=== PATIENT | male | born 1955 | race African-American/Black ===

== ENCOUNTER 2018-01-03 12:24 | Inpatient (IN) | payer OTHER ==
--- OUTSIDE RECORDS SUMMARY | 2018-01-03 12:26 | XMS REPORT | Clinical Summary ---
:1955 Author Organization [facility] Address [address] [place] [address] Phone Care Team Providers Name Role Phone Unavailable Primary Care Provider Unavailable Allergies No Known Allergies Current Medications Prescription Sig. Disp. Refills Start End Date Status Date NIFEdipine Take 60 mg by Active (PROCARDIA-XL) 60 mouth daily. MG (OSM) 24 hr tablet metoprolol Take 100 mg by Active (LOPRESSOR) 50 MG mouth daily . tablet lovastatin Take 20 mg by Active (MEVACOR) 20 MG mouth nightly. tablet terazosin (HYTRIN) Take 5 mg by mouth Active 5 MG capsule 2 (two) times daily . hydrALAZINE Take 25 mg by Active (APRESOLINE) 50 MG mouth 4 (four) tablet times daily . sevelamer Take 800 mg by Active (RENVELA) 800 mg mouth 3 (three) tablet times daily with meals. omega-3 fatty Take 1,200 mg by Active acids-vitamin E mouth daily. 1,000 mg Cap traMADol (ULTRAM) Take 1 tablet (50 30 tablet 0 Active 50 mg tablet mg total) by mouth 7 every 6 (six) hours as needed for Pain (s/p pharangeal biospy). Max Daily Amount: 200 mg traMADol (ULTRAM) Take 50 mg by 03/04/20 Discontinued 50 mg tablet mouth every 6 17 (six) hours as needed for Pain (s/p pharangeal biospy). allopurinol Take 1 tablet (100 30 tablet 1 12/27/201 12/27/20 (ZYLOPRIM) 100 MG mg total) by mouth 6 17 tablet daily. folic acid Take 1 tablet (1 30 tablet 1 05/04/20 (FOLVITE) 1 MG mg total) by mouth 6 17 tablet daily. ascorbic acid, Take 500 mg by 03/04/20 Discontinued vitamin C, mouth daily. 17 (VITAMIN C) 500 MG tablet pegfilgrastim Inject 6 mg 03/04/20 Discontinued (NEULASTA) 6 subcutaneously 17 mg/0.6mL injection once Every 21 days . amoxicillin Take 1 capsule 10 capsule 0 02/05/20 (AMOXIL) 500 MG (500 mg total) by 7 17 capsule mouth daily for 10 days. ondansetron Take 1 tablet (4 20 tablet 0 02/02/20 (ZOFRAN-ODT) 4 MG mg total) by mouth 7 17 disintegrating every 8 (eight) tablet hours as needed for up to 7 days. ceFAZolin (ANCEF) Inject 3 g 0 03/13/20 IVPB in 100 mL intravenously once 7 17 a week for 9 days After HD on Tuesday. ceFAZolin (ANCEF) Inject 50 mLs (2 g 0 03/13/20 IVPB 2 g in total) 7 17 dextrose 5% (D5W) intravenously 50 mL twice a week for 9 days. vancomycin Inject 250 mLs 0 03/13/20 (VANCOCIN) IVPB (1,250 mg total) 7 17 1250 mg in sodium intravenously 3 chloride 0.9% (NS) (three) times a 250 mL week after dialysis for 9 days. 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 Encounter for chemotherapy management 05/20/2016 Lymphoma ([facility]) 05/20/2016 ALL (acute lymphoblastic leukemia) ([facility]) 05/20/2016 UTI (urinary tract infection) 04/25/2016 Lymphoma ([facility]) 04/23/2016 Hypertension 04/21/2016 Hypercholesteremia 04/21/2016 End stage renal disease on dialysis ([facility]) 04/21/2016 Neck swelling 04/20/2016 SOB (shortness of breath) 04/19/2016 Stridor 04/19/2016 Resolved Problems Problem Noted Date Resolved Date Sepsis due to methicillin susceptible Staphylococcus aureus 02/25/20172016 ([facility]) Encounters Date Type Specialty Care Team Description [facility] MD Maximo lymphoma of lymph nodes of head ([facility]);Obstructive sleep apnea 09/29/2017 Orders Only Chandra Young TIMA (obstructive sleep MD Maximo apnea) (Primary Dx) 09/23/2017 Outside Orders Adriana Gan, SHADE [employer]OTH FINISHER, RETAIL ASSOCIATE 09/23/2017 Orders Only Malik Grade 1 follicular Adriana Nguyễn, SHADE CLOTH FINISHER, lymphoma of lymph RETAIL ASSOCIATE nodes of head ([facility]) (Primary Dx);Obstructive sleep apnea 08/24/2017 Abstract Johana Holley 07/26/2017 Telephone Transplant Johana Gresham Kidney Transplant Pre-evaluation 06/30/2017 Telephone Transplant Johana Gresham Kidney Transplant Pre-evaluation 05/05/2017 Abstract Transplant Mj Villanueva 03/30/2017 Office Visit Transplant ESRD (end stage renal disease) ([facility]) (Primary Dx);Pre-transplant evaluation for chronic kidney disease;Hypertensive renal disease;Anemia of renal disease;Essential hypertension, malignant;Abnormal blood chemistry;Pre-operativ e cardiovascular examination 02/25/2017 - [facility] Constanza Greer End stage renal 03/04/2017 Encounter MD Lyubov disease on dialysis Gayatri Stokes, ([facility]);Infection of MD hemodialysis catheter, Bobby Baker, initial encounter MD ([facility]);Hypercholesterem Carmita De Oliveira ia;Essential MD Addie hypertension;Periphera l T-cell lymphoma of lymph nodes of head, face, or neck (HCC);Sepsis, due to unspecified organism (HCC);Problem with dialysis access, initial encounter (HCC);Sepsis due to methicillin susceptible Staphylococcus aureus (HCC) 02/17/2017 Abstract April GreshamJohana 02/03/2017 Abstract Transplant MpSamvickieyad 02/03/2017 Abstract Transplant MpSamvickieyad 02/03/2017 Abstract Transplant Mp, Samgil 01/25/2017 - Emergency Emergency Medicine Naldo Dobson Near syncope ( Primary 01/26/2017 MD John Dx);Admission for antineoplastic chemotherapy 01/25/2017 Orders Only General Internal Medicine 01/24/2017 [facility] (end stage renal 01/25/2017 Encounter Le disease) (HCC);Problem MD Olivier with dialysis access, Cristal, initial encounter MD Mignon ([facility]);Essential hypertension;Line sepsis, initial encounter ([facility]) after 01/02/2017 Family History Medical History Relation Name Comments Hypertension Father Hypertension Mother Cancer Paternal Grandfather Relation Name Status Comments Father Mother Alive Paternal Grandfather Social History Tobacco Use Types Packs/Day Years Used Date Former Smoker Quit: 06/23/2014 Smokeless Tobacco: Former User Comments: cigar use 1-2 x per week Alcohol Use Drinks/Week oz/Week Comments No Sex Assigned at Date Recorded Not on file Last Filed Vital Signs Vital Sign Reading Time Taken Blood Pressure 127/74 03/04/2017 8:00 AM CDT Pulse 85 03/04/2017 8:00 AM CDT Temperature 36.4 C (97.6 F) 03/04/2017 8:00 AM CDT Respiratory Rate 18 03/04/2017 8:00 AM CDT Oxygen Saturation 96% 03/04/2017 8:00 AM CDT Inhaled Oxygen Concentration - - Weight 108.4 kg (238 lb 15.7 oz) 03/03/2017 7:15 PM CDT Height 188 cm (6' 2") 02/25/2017 7:49 PM CDT Body Mass Index 30.68 03/03/2017 7:15 PM CDT Plan of Treatment Health Maintenance Due Date Last Done Comments INFLUENZA VACCINE 02/06/2018 Results POLYSOMNOGRAPHY REPORT - SCAN (11/14/2017 11:10 AM)Only the most recent of2 resultswithin the time period is included.RHYTHM STRIP - SCAN (03/07/2017 9:54 AM)Only the most recent of2 resultswithin the time period is included.EKG- SCANNED (03/07/2017 9:53 AM)PT/aPTT (03/04/2017 5:44 AM) Component Value Ref Range Protime 14.6 11.7 - 14.7 seconds INR 1.2 <=5.9 PTT 32.5 22.5 - 36.0 seconds Specimen Performing Laboratory Blood [address] [address] Narrative RECOMMENDED COUMADIN/WARFARIN INR THERAPY RANGES STANDARD DOSE: 2.0 - 3.0 Includes: PROPHYLAXIS for venous thrombosis, systemic embolization; TREATMENT for venous thrombosis and/or pulmonary embolus. HIGH RISK: Target INR is 2.5-3.5 for patients with mechanical heart valves. CBC (Hemogram only) (03/04/2017 5:44 AM) Component Value Ref Range WBC 6.5 3.5 - 10.5 K/L RBC 3.15 (L) 4.63 - 6.08 M/L Hemoglobin 9.1 (L) 13.7 - 17.5 GM/DL Hematocrit 29.1 (L) 40.1 - 51.0 % MCV 92.4 (H) 79.0 - 92.2 fL MCH 28.9 25.7 - 32.2 pg MCHC 31.3 (L) 32.3 - 36.5 GM/DL RDW 15.8 (H) 11.6 - 14.4 % Platelets 295 150 - 450 K/CU MM MPV 10.3 9.4 - 12.4 fL nRBC 0 0 - 0 /100 WBC Specimen Performing Laboratory Blood [address] [address] Basic Metabolic Panel (03/04/2017 5:44 AM)Only the most recent of8 resultswithin the time period is included. Component Value Ref Range Sodium 141 136 - 145 meq/L Potassium 3.8 3.5 - 5.1 meq/L Chloride 105 98 - 107 meq/L CO2 24 22 - 29 meq/L BUN 39 (H) 7 - 21 mg/dL Creatinine 7.06 (H) 0.57 - 1.25 mg/dL Glucose 126 (H) 70 - 105 mg/dL Calcium 8.9 8.4 - 10.2 mg/dL EGFR 10Comment: ESTIMATED GFR IS NOT ACCURATE mL/min/1.73 sq m CREATININE CLEARANCE IN PREDICTING GLOMERULAR FILTRATION RATE. ESTIMATED GFR IS NOT APPLICABLE FOR DIALYSIS PATIENTS. Specimen Performing Laboratory Blood [facility] [address] [address] IR Tunneled Catheter Insertion (03/03/2017 6:15 PM)Only the most recent of2 resultswithin the time period is included. Specimen Performing Laboratory GE RIS Narrative FINAL REPORT Tunneled dialysis catheter insertion. History: Renal failure. Modality: Sonography and fluoroscopy. Sedation: Versed 2.0 mg and fentanyl 100 mcg was given intravenously for conscious sedation.Vital signs were monitored throughout the procedure by a nurse, and remained stable. Physician intra-service time was 20 minutes. Special Weapons Unit Officer:Dimple. Production Controller:None. Approach: Right internal jugular vein Estimated blood loss:< 5 cc. Specimen: None. Fluoroscopy Time: 1.3 min.Dose (Ka,r): 133 mGy. Technique: Informed written consent was obtained.Discussion of risks, benefits, and alternatives were made with the patient. The patient expressed understanding and agreed to proceed.All elements maximal sterile barrier technique was utilized for this procedure, including utilization of sterile scrub solution for skin prep, a large sterile sheet to cover the areas of the patient that were not prepped, and hand hygiene, mask, head covering, and sterile gown for performing radiologist and scrub technologist. The skin was anesthetized with 2% lidocaine.Ultrasound evaluation showed a patent and compressible right internal jugular vein, which was punctured under direct real-time ultrasound guidance with a micropuncture needle.An ultrasound image was saved to PACS. A 0.018 inch wire was placed through the needle into the right atrium. A 4 Canadian micropuncture sheath was placed.A subcutaneous tunnel was created in the right anterior chest wall by blunt dissection.A 19 cm 15.5 Canadian Duraflow 2 catheter was brought through the tunnel. The vessel tract was serially dilated over a J-wire. A peel-away sheath was placed in the right IJ vein and the catheter was advanced through the sheath, with its distal tip terminating in the right atrium.The peel-away sheath was removed. The ports were flushed and aspirated easily following placement.The catheter was sutured to the skin with 2-0 silk to secure its placement.The small jugular incision site was closed using resorbable suture. Vital signs were monitored throughout the procedure by a nurse, and remained stable.The patient tolerated the procedure well and left the department in the same condition. Results:Spot radiograph of the chest demonstrates the new dialysis catheter to lie in the expected position with its tip overlying the superior right atrium. Impression: Successful, uncomplicated placement of a right internal jugular tunneled dialysis catheter using sonographic and fluoroscopic guidance and conscious sedation. Signed: Francisco Javier Flannery MD Report Verified Date/Time:03/18/2017 09:52:18 Reading Location: [facility] B1 P048 Angio Body Reading Room Procedure Note Interface, External Ris In - 03/18/2017 9:54 AM CEO AND FOUNDER FINAL REPORT Tunneled dialysis catheter insertion. History: Renal failure. Modality: Sonography and fluoroscopy. Sedation: Versed 2.0 mg and fentanyl 100 mcg was given intravenously for conscious sedation. Vital signs were monitored throughout the procedure by a nurse, and remained stable. Physician intra-service time was 20 minutes. Special Weapons Unit Officer: Dimple. Production Controller: None. Approach: Right internal jugular vein Estimated blood loss: < 5 cc. Specimen: None. Fluoroscopy Time: 1.3 min. Dose (Ka,r): 133 mGy. Technique: Informed written consent was obtained. Discussion of risks, benefits, and alternatives were made with the patient. The patient expressed understanding and agreed to proceed. All elements maximal sterile barrier technique was utilized for this procedure, including utilization of sterile scrub solution for skin prep, a large sterile sheet to cover the areas of the patient that were not prepped, and hand hygiene, mask, head covering, and sterile gown for performing radiologist and scrub technologist. The skin was anesthetized with 2% lidocaine.Ultrasound evaluation showed a patent and compressible right internal jugular vein, which was punctured under direct real-time ultrasound guidance with a micropuncture needle. An ultrasound image was saved to PACS. A 0.018 inch wire was placed through the needle into the right atrium. A 4 Canadian micropuncture sheath was placed. A subcutaneous tunnel was created in the right anterior chest wall by blunt dissection. A 19 cm 15.5 Canadian Duraflow 2 catheter was brought through the tunnel. The vessel tract was serially dilated over a J-wire. A peel-away sheath was placed in the right IJ vein and the catheter was advanced through the sheath, with its distal tip terminating in the right atrium. The peel-away sheath was removed. The ports were flushed and aspirated easily following placement. The catheter was sutured to the skin with 2-0 silk to secure its placement. The small jugular incision site was closed using resorbable suture. Vital signs were monitored throughout the procedure by a nurse, and remained stable. The patient tolerated the procedure well and left the department in the same condition. Results: Spot radiograph of the chest demonstrates the new dialysis catheter to lie in the expected position with its tip overlying the superior right atrium. Impression: Successful, uncomplicated placement of a right internal jugular tunneled dialysis catheter using sonographic and fluoroscopic guidance and conscious sedation. Signed: Francisco Javier Flannery MD Report Verified Date/Time: 03/18/2017 09:52:18 Reading Location: [address] Body Reading Room with platelet count + automated diff (03/03/2017 5:29 AM)Only the most recent of7 resultswithin the time period is included. Component Value Ref Range WBC 7.1 3.5 - 10.5 K/L RBC 2.89 (L) 4.63 - 6.08 M/L Hemoglobin 8.3 (L) 13.7 - 17.5 GM/DL Hematocrit 26.6 (L) 40.1 - 51.0 % MCV 92.0 79.0 - 92.2 fL MCH 28.7 25.7 - 32.2 pg MCHC 31.2 (L) 32.3 - 36.5 GM/DL RDW 15.6 (H) 11.6 - 14.4 % Platelets 271 150 - 450 K/CU MM MPV 10.3 9.4 - 12.4 fL nRBC 0 0 - 0 /100 WBC % Neutros 61 % % Lymphs 21 % % Monos 13 % % Eos 3 % % Baso 0 % # Neutros 4.34 1.78 - 5.38 K/L # Lymphs 1.51 1.32 - 3.57 K/L # Monos 0.92 (H) 0.30 - 0.82 K/L # Eos 0.20 0.04 - 0.54 K/L # Baso 0.03 0.01 - 0.08 K/L Immature Granulocytes-Relative 1 0 - 1 % Specimen Performing Laboratory Blood [address] [address] CBC with platelet count + automated diff (03/03/2017 5:29 AM)Only the most recent of7 resultswithin the time period is included. Specimen Performing Laboratory Blood Narrative The following orders were created for panel order CBC with platelet count + automated diff. Procedure Abnormality Status --------- ------ CBC with platelet count ...[[id number]]AbnormalFinal result Please view results for these tests on the individual orders. Phosphorus (03/03/2017 5:29 AM)Only the most recent of6 resultswithin the time period is included. Component Value Ref Range Phosphorus 5.9 (H) 2.3 - 4.7 mg/dL Specimen Performing Laboratory Blood [address] [address] Magnesium (03/03/2017 5:29 AM)Only the most recent of5 resultswithin the time period is included. Component Value Ref Range Magnesium 2.0 1.6 - 2.6 mg/dL Specimen Performing Laboratory Blood [address] [address] Iron, TIBC, % sat. (without ferritin) (03/02/2017 6:21 AM) Component Value Ref Range Iron 129 40 - 160 ug/dL TIBC 189 (L) 250 - 450 ug/dL Iron % Saturation 68 (H) 20 - 55 % Specimen Performing Laboratory Blood - Arm, [address] [address] Ferritin (03/02/2017 6:21 AM) Component Value Ref Range Ferritin 1315 (H) 5 - 275 ng/mL Specimen Performing Laboratory Blood - Arm, [address] [address] Electrolytes (02/28/2017 10:16 PM) Component Value Ref Range Sodium 141 136 - 145 meq/L Potassium 4.2 3.5 - 5.1 meq/L Chloride 106 98 - 107 meq/L CO2 22 22 - 29 meq/L Specimen Performing Laboratory Blood [address] [address] ECHOCARDIOGRAM REPORT - SCAN (02/28/2017 9:50 AM)Blood culture (02/28/2017 4: 56 AM)Only the most recent of6 resultswithin the time period is included. Component Value Ref Range Result No growth in 5 days Specimen Performing Laboratory Blood - Arm, Right [address] [address] 2D Echo W/Doppler(CW/PW/Color) (02/27/2017 4:40 PM) Component Value Ref Range Ejection Fraction Specimen Performing Laboratory SLE ECHO HEARTLAB MKCKESSON CPACS Narrative Transthoracic Echocardiography Report (TTE) Demographics Patient NameMORMally JOY of Study02/27/2017 YOUNG Gender Male Visit [id number] Race Black [id number] Number Date of 1955 ReferringBobby Baker RES Physician Age 62 year(s) Carbon Brush Maker Interpreting [facility] Needs to be Pre Physician Read Ezequiel Zhang MD Procedure Type of Study TTE procedure:2DECHO W DOPPLER(CW/PW/COLOR) (Routine) Indications:Suspected infective endocarditis with positive cultures or new murmur. Clinical History HTN ESRD SEPSIS SOB CANCER Hyperlipidemia Height: 62 inches Weight: 108.41 kg (239 lbs) BSA: 2.06 m^2 BMI: 43.71 kg/m^2 HR: 85 bpm BP: 112/75 mmHg Summary The left ventricle is chamber size (by vol index) is normal (male - LVED vol - 34-74ml/m2). Moderate concentric LV hypertrophy. All of the LV segments contract normally . LVEF by Winkler's method of disk assessment is normal (55-60%) . Grade 1 diastolic dysfunction (impaired relaxation and low-normal LA pressure). The right ventricular chamber size and systolic function are within normal limits. Unable to estimate peak systolic PA pressure; inadequate TR velocity signal. A trace anterior and posterior pericardial effusion is present . Signature Findings Left Ventricle The left ventricle is chamber size (by vol index) is normal (male - LVED vol - 34-74ml/m2). Moderate concentric LV hypertrophy. All of the LV segments contract normally . LVEF by Winkler's method of disk assessment is normal (55- 60%) . Grade 1 diastolic dysfunction (impaired relaxation and low-normal LA pressure). Left AtriumLA size is normal (16-34 ml/m2) . Right VentricleThe right ventricular chamber size and systolic function are within normal limits. Right Atrium RA size is normal. Aortic Valve Mild AoV cusp thickening. Mild AoV cusp calcification. Mitral Valve Normal MV structure. Tricuspid ValveTV structure is normal. Unable to estimate peak systolic PA pressure; inadequate TR velocity signal. Pulmonic Valve Normal PV structure and function by limited views and Doppler. AortaAortic root size (SInus of Valsalva diameter) is normal . PericardiumA trace anterior and posterior pericardial effusion is present . IVC/SVC/PA/PV/PleuralThe estimated RA pressure by IVC dynamics 0-5mmHg . Chambers/Structures Left Atrium LA Dimension: 4.71 cmLA Area: 20.85 cm^2 LA Volume: 65.63 ml LA Vol. Index: 32 ml/m^2 Left Ventricle LVIDd: 4.74 cmLVEDV 2D:127.04 ml LVIDs: 2.78 cmLVESV 2D :56.76 ml LV Septum Diastolic: 1.62 cm LV Septum Systolic: 2.19 cm LV PW Diastolic: 1.61 cmLV FS: 41.4 % LV PW Systolic: 1.89 cm LV ESV (Cubed): 21.48 cc LVOT Diameter: 2.17 cm LV ESV (Teich):29.03 ml LV SV (Teich):75.37 ml LV SI (Teich):36.59 ml/m^2 LVEF 2D Teich: 55.3 % Aorta Ao Root S of Velma.: 3.09 cm Shunts QS:77.22 ml Doppler/Quantitative Measurements LVOT Peak Velocity: 1.16 m/s Peak Gradient: 5.36 mmHg Mean Velocity: 0.7 m/sMean Gradient: 2.44 mmHg LVOT Diameter: 2.17 cmLVOT VTI: 20.88 cm LVOT Area: 3.7 cm^2 LVOT SV:77.18 ml LVOT CO: 6.56 l/min LVOT CI: 3.18 l/min/m^2 Procedure Note Interface, External Ris In - 02/28/2017 9:18 AM CDT Transthoracic Echocardiography Report (TTE) Demographics Patient Name NALDO ANDREA Date of Study 02/27/2017 YOUNG Gender Male Visit Number [id number] Race Black Room Number [id number] Number Date of 1955 Referring Bobby Baker RES Physician Age 62 year(s) Carbon Brush Maker Interpreting [facility] Needs to be Pre Physician Read Ezequiel Zhang MD Procedure Type of Study TTE procedure:2DECHO W DOPPLER(CW/PW/COLOR) (Routine) Indications:Suspected infective endocarditis with positive cultures or new murmur. Clinical History HTN ESRD SEPSIS SOB CANCER Hyperlipidemia Height: 62 inches Weight: 108.41 kg (239 lbs) BSA: 2.06 m^2 BMI: 43.71 kg/m^2 HR: 85 bpm BP: 112/75 mmHg Summary The left ventricle is chamber size (by vol index) is normal (male - LVED vol - 34-74ml/m2). Moderate concentric LV hypertrophy. All of the LV segments contract normally . LVEF by Winklre's method of disk assessment is normal (55-60%) . Grade 1 diastolic dysfunction (impaired relaxation and low-normal LA pressure). The right ventricular chamber size and systolic function are within normal limits. Unable to estimate peak systolic PA pressure; inadequate TR velocity signal. A trace anterior and posterior pericardial effusion is present . Signature Findings Left Ventricle The left ventricle is chamber size (by vol index) is normal (male - LVED vol - 34-74ml/m2). Moderate concentric LV hypertrophy. All of the LV segments contract normally . LVEF by Winkler's method of disk assessment is normal (55-60%) . Grade 1 diastolic dysfunction (impaired relaxation and low-normal LA pressure). Left Atrium LA size is normal (16-34 ml/m2) . Right Ventricle The right ventricular chamber size and systolic function are within normal limits. Right Atrium RA size is normal. Aortic Valve Mild AoV cusp thickening. Mild AoV cusp calcification. Mitral Valve Normal MV structure. Tricuspid Valve TV structure is normal. Unable to estimate peak systolic PA pressure; inadequate TR velocity signal. Pulmonic Valve Normal PV structure and function by limited views and Doppler. Aorta Aortic root size (SInus of Valsalva diameter) is normal . Pericardium A trace anterior and posterior pericardial effusion is present . IVC/SVC/PA/PV/Pleural The estimated RA pressure by IVC dynamics 0-5mmHg . Chambers/Structures Left Atrium LA Dimension: 4.71 cm LA Area: 20.85 cm^2 LA Volume: 65.63 ml LA Vol. Index: 32 ml/m^2 Left Ventricle LVIDd: 4.74 cm LVEDV 2D:127.04 ml LVIDs: 2.78 cm LVESV 2D:56.76 ml LV Septum Diastolic: 1.62 cm LV Septum Systolic: 2.19 cm LV PW Diastolic: 1.61 cm LV FS: 41.4 % LV PW Systolic: 1.89 cm LV ESV (Cubed):21.48 cc LVOT Diameter: 2.17 cm LV ESV (Teich):29.03 ml LV SV (Teich):75.37 ml LV SI (Teich):36.59 ml/m^2 LVEF 2D Teich: 55.3 % Aorta Ao Root S of Velma.: 3.09 cm Shunts QS:77.22 ml Doppler/Quantitative Measurements LVOT Peak Velocity: 1.16 m/s Peak Gradient: 5.36 mmHg Mean Velocity: 0.7 m/s Mean Gradient: 2.44 mmHg LVOT Diameter: 2.17 cm LVOT VTI: 20.88 cm LVOT Area: 3.7 cm^2 LVOT SV:77.18 ml LVOT CO: 6.56 l/min LVOT CI: 3.18 l/min/m^2 Vancomycin level, random (02/27/2017 4:00 AM) Component Value Ref Range Vancomycin Rm 20.4 ug/mL Specimen Performing Laboratory Blood [address] [address] Narrative Reference Range: No Normals BCID (02/26/2017 10:20 PM) Component Value Ref Range Scan Result Specimen Performing [place] [address] Narrative Result comments: METHICILLIN-SUSCEPTIBLE STAPH. AUREUS (MSSA) DETECTED Staphylococcus aureus DETECTED MecA NOT DETECTED First line therapy: cefazolin or nafcillin (nafcillin preferred if Central Nervous System Infection) ID consultation strongly encouraged. Other organisms and resistance markers not contained in this PCR panel cannot be excluded and follow-up of traditional culture results is required. This sample was tested at the [facility] Clinical Microbiology Laboratory using the InMy[employer] FilmArray Blood Culture ID Panel. This test is FDA cleared for in vitro diagnostic use and has been verified and approved by the [facility] Clinical Microbiology laboratory for clinical use. Reference Range: Not Detected Catheter Tip Culture (02/26/2017 6:29 PM)Only the most recent of2 resultswithin the time period is included. Component Value Ref Range Result No growth Specimen Performing Laboratory Other - Catheter Tip [address] [address] IR Port Removal (02/26/2017 5:40 PM) Specimen Performing Laboratory GE RIS Narrative FINAL REPORT Exam:Tunnel dialysis catheter and chest port removal Clinical History:Sepsis Consent:Benefits and risks were explained to the patient who gave consent to the procedure. Sedation:The procedure was performed with conscious sedation. Continuous cardiorespiratory monitoring was performed by a registered nurse throughout the procedure.The total sedation time is 30 minutes. Fluoro Time:0 Minutes Total Images: 1 Medication:Versed 1 mg IV, fentanyl 50 mcg IV Procedure:Sterile barrier technique was followed including cap, mask, sterile gown, sterile gloves, sterile sheet, hand hygiene and 2% chlorhexidine for cutaneous antisepsis. Bilateral chest was prepped and draped in usual sterile fashion. 2% lidocaine was used as local anesthetic. An linear incision was made in the left chest wall followed by removal of the indwelling left chest port. The incision was closed using 3-0 Vicryl in subcuticular fashion. The right internal jugular tunneled dialysis catheter was removed after blunt dissection. Both catheter and port were sent to microbiology. Hemostasis was achieved. The patient tolerated the procedure well without any adverse reactions. He left the department in stable condition. Complication:None immediate Impression: 1. Left internal jugular chest port and right internal jugular tunneled dialysis catheter removal as described. Signed: Nellie Brooks MD Report Verified Date/Time:02/27/2017 12:44:21 Reading Location: [place] [address] Angio Body Reading Room Procedure Note Interface, External Ris In - 02/27/2017 12:46 PM CDT FINAL REPORT Exam: Tunnel dialysis catheter and chest port removal Clinical History: Sepsis Consent: Benefits and risks were explained to the patient who gave consent to the procedure. Sedation: The procedure was performed with conscious sedation. Continuous cardiorespiratory monitoring was performed by a registered nurse throughout the procedure. The total sedation time is 30 minutes. Fluoro Time: 0 Minutes Total Images: 1 Medication: Versed 1 mg IV, fentanyl 50 mcg IV Procedure: Sterile barrier technique was followed including cap, mask, sterile gown, sterile gloves, sterile sheet, hand hygiene and 2% chlorhexidine for cutaneous antisepsis. Bilateral chest was prepped and draped in usual sterile fashion. 2% lidocaine was used as local anesthetic. An linear incision was made in the left chest wall followed by removal of the indwelling left chest port. The incision was closed using 3-0 Vicryl in subcuticular fashion. The right internal jugular tunneled dialysis catheter was removed after blunt dissection. Both catheter and port were sent to microbiology. Hemostasis was achieved. The patient tolerated the procedure well without any adverse reactions. He left the department in stable condition. Complication: None immediate Impression: 1. Left internal jugular chest port and right internal jugular tunneled dialysis catheter removal as described. Signed: Nellie Brooks MD Report Verified Date/Time: 02/27/2017 12:44:21 Reading Location: [place] [id number] Angio Body Reading Room Hepatitis B surface antigen (02/26/2017 2:35 PM)Only the most recent of2 resultswithin the time period is included. Component Value Ref Range hepatitis B Surface Ag Nonreactive Nonreactive Specimen Performing Laboratory Blood - Line, Arterial [address] [address] Prothrombin time/INR (02/26/2017 5:38 AM)Only the most recent of2 resultswithin the time period is included. Component Value Ref Range Protime 15.2 (H) 11.7 - 14.7 seconds INR 1.2 <=5.9 Specimen Performing Laboratory Blood [address] [address] Narrative RECOMMENDED COUMADIN/WARFARIN INR THERAPY RANGES STANDARD DOSE: 2.0 - 3.0 Includes: PROPHYLAXIS for venous thrombosis, systemic embolization; TREATMENT for venous thrombosis and/or pulmonary embolus. HIGH RISK: Target INR is 2.5-3.5 for patients with mechanical heart valves. XR chest 1 view portable / bedside (01/25/2017 9:24 PM) Specimen Performing Laboratory GE RIS Narrative FINAL REPORT INDICATION: CHEST PAIN COMPARISON: May 20, 2016 TECHNIQUE: Chest radiograph, single view, portable technique. FINDINGS / IMPRESSION: Linear opacity in the left midlung probably represent subsegmental atelectasis. Right midlung linear opacities represent subsegmental atelectasis or possibly a tiny amount of pleural fluid. No pneumothorax or pneumonia is demonstrated. Heart shadow is not enlarged. There is a right internal jugular double lumen catheter that terminates at the cavoatrial junction. There is a left chest port that terminates in the low SVC. Signed: David Thompson MD Report Verified Date/Time:01/25/2017 21:52:27 Reading Location: [facility] [id number] Consult Reading Room Procedure Note Interface, External Ris In - 01/25/2017 9:54 PM CDT FINAL REPORT INDICATION: CHEST PAIN COMPARISON: May 20, 2016 TECHNIQUE: Chest radiograph, single view, portable technique. FINDINGS / IMPRESSION: Linear opacity in the left midlung probably represent subsegmental atelectasis. Right midlung linear opacities represent subsegmental atelectasis or possibly a tiny amount of pleural fluid. No pneumothorax or pneumonia is demonstrated. Heart shadow is not enlarged. There is a right internal jugular double lumen catheter that terminates at the cavoatrial junction. There is a left chest port that terminates in the low SVC. Signed: David Thompson MD Report Verified Date/Time: 01/25/2017 21:52:27 Reading Location: [facility] B1 [id number] Consult Reading Room Troponin I (01/25/2017 8:58 PM) Component Value Ref Range Troponin I 0.01 0.00 - 0.03 ng/mL Specimen Performing Laboratory Blood - Arm, [place] [address] Narrative Troponin I (TnI) levels must be interpreted in the context of the presenting symptoms and the clinical findings. Elevated TnI levels indicate myocardial damage, but are not specific for ischemic heart disease. Elevated TnI levels are seen in patients with other cardiac conditions (including myocarditis and congestive heart failure), and slight TnI elevations occur in patients with other conditions, including sepsis, renal failure, acidosis, acute neurological disease, and persistent tachyarrhythmia. Creatine Kinase (CK), Total and MB (01/25/2017 8:58 PM) Component Value Ref Range Total CK 159 29 - 200 U/L CK-MB 0.8 0.0 - 6.6 ng/mL MB Relative Index 0.5 % Specimen Performing Laboratory Blood - Arm, [place] [id number] Narrative CK-MB Reference Range: <6.7Normal 6.7-10.0Borderline >10.0 Abnormal ECG 12 lead (01/25/2017 8:17 PM) Specimen Performing Laboratory GE MUSE Narrative Ventricular Rate 82 BPM Atrial Rate 82 BPM P-R Interval 162 ms QRS Duration 94 ms Q-T Interval 402 ms QTC Calculation(Bazett) 469 ms P [place] 44 degrees R [place] 15 degrees T [place] 185 degrees Sinus rhythm Nonspecific ST and T wave abnormality V leads appear to have been mis applied. PLASE REPEAT Confirmed by Dana SCHOFIELD MICHAEL ([id number]) on 01/26/2017 7:56:37 AM Procedure Note Interface, External Ris In - 01/26/2017 7:56 AM CDT Ventricular Rate 82 BPM Atrial Rate 82 BPM P-R Interval 162 ms QRS Duration 94 ms Q-T Interval 402 ms QTC Calculation(Bazett) 469 ms P [place] 44 degrees R [place] 15 degrees T [place] 185 degrees Sinus rhythm Nonspecific ST and T wave abnormality V leads appear to have been mis applied. PLASE REPEAT Confirmed by Dana SCHOFIELD MICHAEL ([id number]) on 01/26/2017 7:56:37 AM POC-Glucose meter (01/25/2017 8:15 PM) Component Value Ref Range POC-Glucose Meter 179 (H)Comment: TESTED AT [address] 70 - 110 mg/[place] [id number] Specimen Performing Laboratory Blood [address] [address] after 01/02/2017 Advance Directives Patient has advance directives. For more information, please contact:[address] [phone]
--- OUTSIDE RECORDS SUMMARY | 2018-01-03 12:28 | XMS REPORT ---
:1955 Author Organization [facility] Address [address] [place] [address] [place] [id number] Care Team Providers Name Role Phone ARIAN MANUEL Unavailable Unavailable ASHIA WORKMAN Unavailable Unavailable PETER FAGAN Unavailable Unavailable YAZAN BARRY Unavailable Unavailable DENI RUBI Unavailable Unavailable NICO GOLDMAN Unavailable Unavailable TOBY CAO Unavailable Unavailable Problems This patient has no known problems. Allergies, Adverse Reactions, Alerts This patient has no known allergies or adverse reactions. Medications This patient has no known medications. Results Test Description Test Time Test Comments Text Results Atomic Results Result Comments ISAK PAGAN 2017-03-18 Reason for FINAL REPORT PATIENT ID: DIALYSIS CATH 09:52:00 exam:->Patient needs [id number] Tunneled dialysis INSERTION TDC replaced catheter insertion. (previously removed for line holiday in patient with MSSA/MRSA bacteremia - cx now clear) History: Renal failure. Modality: Sonography and fluoroscopy. Sedation: Versed 2.0 mg and fentanyl 100 mcg was given intravenously for conscious sedation. Vital signs were monitored throughout the procedure by a nurse, and remained stable. Physician intra-service time was 20 minutes. Water Main Installer Helper: Dimple. Case Assistant: None. Approach: Right internal jugular vein Estimated [...] needle into the right atrium. A 4 Nigerian micropuncture sheath was placed. A subcutaneous tunnel was created in the right anterior chest wall by blunt dissection. A 19 cm 15.5 Nigerian Duraflow 2 catheter was brought through the [...] and fluoroscopic guidance and conscious sedation. Signed: Hari Flannery [facility] Verified Date/Time: 03/18/2017 09:52:18 Reading Location: [address] Body Reading Room ELLANEOUS LAB ORDER 2017-03-07 14:09:00 Test Item Value Reference Range Comments SCAN RESULT (test dlht=[id number]) Result comments: METHICILLIN-SUSCEPTIBLE STAPH. AUREUS (MSSA) DETECTED Staphylococcus aureus DETECTED MecA NOT DETECTED First line therapy: cefazolin or nafcillin (nafcillin preferred if Central Nervous System Infection) ID consultation strongly encouraged. Other organisms and resistance markers not contained in this PCR panel cannot be excluded and follow-up of traditional culture results is required. This sample was tested at the [facility] Clinical Microbiology Laboratory using the OxiCool Blood Culture ID Panel. This test is FDA cleared for in vitro diagnostic use and has been verified and approved by the [facility] Clinical Microbiology laboratory for clinical use. Reference Range: Not DetectedBLOOD [id number] 11:00:00 Test Item Value Reference Range Comments CULTURE (BEAKER) (test codo=6999) No growth in 5 days BLOOD [id number] 11:00:00 Test Item Value Reference Range Comments CULTURE (BEAKER) (test ipwf=9725) No growth in 5 days BLOOD [id number] 18:00:00 Test Item Value Reference Range Comments CULTURE (BEAKER) (test noni=9167) No growth in 5 days BLOOD [id number] 18:00:00 Test Item Value Reference Range Comments CULTURE (BEAKER) (test dhxa=2299) No growth in 5 days BASIC METABOLIC [id number] 07:03:00 Test Item Value Reference Range Comments SODIUM (BEAKER) (test 141 meq/L 136-145 ufks=201) POTASSIUM (BEAKER) (test 3.8 meq/L 3.5-5.1 jxig=424) CHLORIDE (BEAKER) (test 105 meq/L 98-107 ttcp=747) CO2 (BEAKER) (test 24 meq/L 22-29 hnlw=655) BLOOD UREA NITROGEN 39 mg/dL 7-21 (BEAKER) (test dzym=524) CREATININE (BEAKER) (test 7.06 mg/dL 0.57-1.25 ujiz=966) GLUCOSE RANDOM (BEAKER) 126 mg/dL 70-105 (test jhdy=518) CALCIUM (BEAKER) (test 8.9 mg/dL 8.4-10.2 pzai=826) EGFR (BEAKER) (test 10 mL/min/1.73 sq m ESTIMATED GFR IS NOT gtet=9083) ACCURATE CREATININE CLEARANCE IN PREDICTING GLOMERULAR FILTRATION RATE. ESTIMATED GFR IS NOT APPLICABLE FOR DIALYSIS PATIENTS. CBC (HEMOGRAM ONLY)2017-03-04 06:18:00 Test Item Value Reference Range Comments WHITE BLOOD CELL COUNT (BEAKER) (test ywla=027) 6.5 K/ L 3.5-10.5 RED BLOOD CELL COUNT (BEAKER) (test xfwo=283) 3.15 M/ L 4.63-6.08 HEMOGLOBIN (BEAKER) (test xxqe=398) 9.1 GM/DL 13.7-17.5 HEMATOCRIT (BEAKER) (test nvoz=149) 29.1 % 40.1-51.0 MEAN CORPUSCULAR VOLUME (BEAKER) (test fdak=098) 92.4 fL 79.0-92.2 MEAN CORPUSCULAR HEMOGLOBIN (BEAKER) (test 28.9 pg 25.7-32.2 xpts=616) MEAN CORPUSCULAR HEMOGLOBIN CONC (BEAKER) (test 31.3 GM/DL 32.3-36.5 iyty=937) RED CELL DISTRIBUTION WIDTH (BEAKER) (test 15.8 % 11.6-14.4 uppt=876) PLATELET COUNT (BEAKER) (test bskw=589) 295 K/CU MM 150-450 MEAN PLATELET VOLUME (BEAKER) (test qigs=358) 10.3 fL 9.4-12.4 NUCLEATED RED BLOOD CELLS (BEAKER) (test 0 /100 WBC 0-0 pseg=592) [id number] 06:15:00 Test Item Value Reference Range Comments PROTIME (BEAKER) (test suul=763) 14.6 seconds 11.7-14.7 INR (BEAKER) (test hiqp=329) 1.2 <=5.9 PARTIAL THROMBOPLASTIN TIME (BEAKER) (test 32.5 seconds 22.5-36.0 tsgf=272) RECOMMENDED COUMADIN/WARFARIN INR THERAPY RANGESSTANDARD DOSE: 2.0 - 3.0 Includes: PROPHYLAXIS forvenous thrombosis, systemic embolization; TREATMENT for venous thrombosis and/or pulmonary embolus.HIGH RISK: Target INR is 2.5-3.5 for patients with mechanical heart valves.BASIC METABOLIC [id number] 06:38: 00 Test Item Value Reference Range Comments SODIUM (BEAKER) (test 141 meq/L 136-145 aeqe=210) POTASSIUM (BEAKER) (test 4.3 meq/L 3.5-5.1 sqon=421) CHLORIDE (BEAKER) (test 109 meq/L 98-107 sbqg=931) CO2 (BEAKER) (test 18 meq/L 22-29 nyhq=799) BLOOD UREA NITROGEN 73 mg/dL 7-21 (BEAKER) (test hrgl=127) CREATININE (BEAKER) (test 10.24 mg/dL 0.57-1.25 ligm=653) GLUCOSE RANDOM (BEAKER) 92 mg/dL 70-105 (test qhtq=959) CALCIUM (BEAKER) (test 8.8 mg/dL 8.4-10.2 zcoz=776) EGFR (BEAKER) (test 6 mL/min/1.73 sq m ESTIMATED GFR IS NOT oxgd=1475) ACCURATE CREATININE CLEARANCE IN PREDICTING GLOMERULAR FILTRATION RATE. ESTIMATED GFR IS NOT APPLICABLE FOR DIALYSIS PATIENTS. [id number] 06:26:00 Test Item Value Reference Range Comments PHOSPHORUS (BEAKER) (test qnmj=039) 5.9 mg/dL 2.3-4.7 [id number] 06:26:00 Test Item Value Reference Range Comments MAGNESIUM (BEAKER) (test ztap=738) 2.0 mg/dL 1.6-2.6 CBC W/PLT COUNT & AUTO [id number] 06:00:00 Test Item Value Reference Range Comments WHITE BLOOD CELL COUNT (BEAKER) (test sgsx=623) 7.1 K/ L 3.5-10.5 RED BLOOD CELL COUNT (BEAKER) (test zvcm=560) 2.89 M/ L 4.63-6.08 HEMOGLOBIN (BEAKER) (test kidn=601) 8.3 GM/DL 13.7-17.5 HEMATOCRIT (BEAKER) (test asja=876) 26.6 % 40.1-51.0 MEAN CORPUSCULAR VOLUME (BEAKER) (test gcxk=037) 92.0 fL 79.0-92.2 MEAN CORPUSCULAR HEMOGLOBIN (BEAKER) (test 28.7 pg 25.7-32.2 hsdd=363) MEAN CORPUSCULAR HEMOGLOBIN CONC (BEAKER) (test 31.2 GM/DL 32.3-36.5 hgdq=327) RED CELL DISTRIBUTION WIDTH (BEAKER) (test 15.6 % 11.6-14.4 xfga=644) PLATELET COUNT (BEAKER) (test jztb=000) 271 K/CU MM 150-450 MEAN PLATELET VOLUME (BEAKER) (test lobd=585) 10.3 fL 9.4-12.4 NUCLEATED RED BLOOD CELLS (BEAKER) (test 0 /100 WBC 0-0 rnqn=575) NEUTROPHILS RELATIVE PERCENT (BEAKER) (test 61 % vvlo=791) LYMPHOCYTES RELATIVE PERCENT (BEAKER) (test 21 % tjin=045) MONOCYTES RELATIVE PERCENT (BEAKER) (test 13 % zihx=032) EOSINOPHILS RELATIVE PERCENT (BEAKER) (test 3 % mhuj=771) BASOPHILS RELATIVE PERCENT (BEAKER) (test 0 % opwr=337) NEUTROPHILS ABSOLUTE COUNT (BEAKER) (test 4.34 K/ L 1.78-5.38 moog=154) LYMPHOCYTES ABSOLUTE COUNT (BEAKER) (test 1.51 K/ L 1.32-3.57 elhh=284) MONOCYTES ABSOLUTE COUNT (BEAKER) (test 0.92 K/ L 0.30-0.82 yufq=886) EOSINOPHILS ABSOLUTE COUNT (BEAKER) (test 0.20 K/ L 0.04-0.54 xgcv=362) BASOPHILS ABSOLUTE COUNT (BEAKER) (test 0.03 K/ L 0.01-0.08 cowd=357) IMMATURE GRANULOCYTES-RELATIVE PERCENT (BEAKER) 1 % 0-1 (test dudr=9354) [id number] 07:32:00 Test Item Value Reference Range Comments FERRITIN (BEAKER) (test ztby=946) 1315 ng/mL 5-275 IRON, TIBC, % SAT. (WITHOUT FERRITIN)2017-03-02 07:21:00 Test Item Value Reference Range Comments IRON (BEAKER) (test ribk=882) 129 ug/dL 40-160 TOTAL IRON BINDING CAPACITY (BEAKER) (test 189 ug/dL 250-450 woda=755) IRON % SATURATION (2) (BEAKER) (test dkal=9374) 68 % 20-55 [id number] 07:19:00 Test Item Value Reference Range Comments PHOSPHORUS (BEAKER) (test zndo=509) 5.3 mg/dL 2.3-4.7 [id number] 07:19:00 Test Item Value Reference Range Comments MAGNESIUM (BEAKER) (test smol=841) 2.2 mg/dL 1.6-2.6 BASIC METABOLIC [id number] 07:19:00 Test Item Value Reference Range Comments SODIUM (BEAKER) (test 140 meq/L 136-145 fblu=439) POTASSIUM (BEAKER) (test 4.2 meq/L 3.5-5.1 vggh=613) CHLORIDE (BEAKER) (test 108 meq/L 98-107 xapu=110) CO2 (BEAKER) (test 20 meq/L 22-29 oosm=509) BLOOD UREA NITROGEN 59 mg/dL 7-21 (BEAKER) (test kuby=514) CREATININE (BEAKER) (test 9.96 mg/dL 0.57-1.25 hfvj=199) GLUCOSE RANDOM (BEAKER) 103 mg/dL 70-105 (test ezrt=478) CALCIUM (BEAKER) (test 8.9 mg/dL 8.4-10.2 ragf=275) EGFR (BEAKER) (test 6 mL/min/1.73 sq m ESTIMATED GFR IS NOT ywuk=1613) ACCURATE CREATININE CLEARANCE IN PREDICTING GLOMERULAR FILTRATION RATE. ESTIMATED GFR IS NOT APPLICABLE FOR DIALYSIS PATIENTS. CBC W/PLT COUNT & AUTO [id number] 06:51:00 Test Item Value Reference Range Comments WHITE BLOOD CELL COUNT (BEAKER) (test ccwn=877) 6.4 K/ L 3.5-10.5 RED BLOOD CELL COUNT (BEAKER) (test ollb=549) 3.19 M/ L 4.63-6.08 HEMOGLOBIN (BEAKER) (test knls=736) 9.1 GM/DL 13.7-17.5 HEMATOCRIT (BEAKER) (test azmq=768) 29.2 % 40.1-51.0 MEAN CORPUSCULAR VOLUME (BEAKER) (test mzjg=511) 91.5 fL 79.0-92.2 MEAN CORPUSCULAR HEMOGLOBIN (BEAKER) (test 28.5 pg 25.7-32.2 rcom=070) MEAN CORPUSCULAR HEMOGLOBIN CONC (BEAKER) (test 31.2 GM/DL 32.3-36.5 euwu=376) RED CELL DISTRIBUTION WIDTH (BEAKER) (test 15.4 % 11.6-14.4 rwbl=588) PLATELET COUNT (BEAKER) (test yaso=129) 257 K/CU MM 150-450 MEAN PLATELET VOLUME (BEAKER) (test vugg=966) 10.9 fL 9.4-12.4 NUCLEATED RED BLOOD CELLS (BEAKER) (test 0 /100 WBC 0-0 gzlb=730) NEUTROPHILS RELATIVE PERCENT (BEAKER) (test 56 % nkaq=714) LYMPHOCYTES RELATIVE PERCENT (BEAKER) (test 27 % grrf=804) MONOCYTES RELATIVE PERCENT (BEAKER) (test 13 % coyc=162) EOSINOPHILS RELATIVE PERCENT (BEAKER) (test 3 % xjrc=396) BASOPHILS RELATIVE PERCENT (BEAKER) (test 1 % cmzv=700) NEUTROPHILS ABSOLUTE COUNT (BEAKER) (test 3.57 K/ L 1.78-5.38 ggno=834) LYMPHOCYTES ABSOLUTE COUNT (BEAKER) (test 1.73 K/ L 1.32-3.57 mazq=197) MONOCYTES ABSOLUTE COUNT (BEAKER) (test 0.80 K/ L 0.30-0.82 pmdn=858) EOSINOPHILS ABSOLUTE COUNT (BEAKER) (test 0.19 K/ L 0.04-0.54 prxv=135) BASOPHILS ABSOLUTE COUNT (BEAKER) (test 0.04 K/ L 0.01-0.08 bjrx=958) IMMATURE GRANULOCYTES-RELATIVE PERCENT (BEAKER) 1 % 0-1 (test aosw=9812) CATHETER TIP [id number] 16:52:00 Test Item Value Reference Range Comments CULTURE (BEAKER) (test <15 Colonies On Direct Plate kgig=8436) Coagulase negative Staphylococcus CATHETER TIP [id number] 16:49:00 Test Item Value Reference Range Comments CULTURE (BEAKER) (test jgqi=1511) No growth BLOOD [id number] 08:10:00 Test Item Value Reference Range Comments CULTURE (BEAKER) From Aerobic And Anaerobic (test krbp=6711) Bottles Same organism has been isolated from cultures(s) of the same body site and collection date. Repeat identification and susceptibility testing performed only after consultation with the clinical microbiology laboratory.Refer to previous culture ofStaphylococcus aureus GRAM STAIN RESULT From aerobic and (BEAKER) (test anaerobic bottles: ybyi=3920) gram positive cocci in clusters BLOOD [id number] 08:08:00 Test Item Value Reference Range Comments CULTURE (BEAKER) (test zjov=8041) Clindamycin (test code=10) Erythromycin (test code=4) Linezolid (test code=40) Oxacillin (test code=14) Rifampin (test code=43) Tetracycline (test code=2) Trimethoprim + Sulfamethoxazole (test code=47) Vancomycin (test code=13) CULTURE (BEAKER) (test METHICILLIN RESISTANT From Anaerobic Bottle sjye=5428) STAPHYLOCOCCUS AUREUS Only Staphylococcus aureus Clindamycin (test code=10) Erythromycin (test code=4) Linezolid (test code=40) Nitrofurantoin (test code=23) Oxacillin (test code=14) Rifampin (test code=43) Tetracycline (test code=2) Trimethoprim + Sulfamethoxazole (test code=47) Vancomycin (test code=13) CULTURE (BEAKER) (test From Aerobic Bottle ppxk=1234) Only Methicillin resistant Staphylococcus aureus GRAM STAIN RESULT From aerobic and (BEAKER) (test dgfj=6868) anaerobic bottles: gram positive cocci in clusters METHICILLIN-SUSCEPTIBLE STAPH. AUREUS (MSSA) DETECTEDStaphylococcus aureus DETECTED MecA NOT DETECTEDFirst line therapy: cefazolin or nafcillin (nafcillin preferred if Central Nervous System Infection)ID consultation strongly encouraged. Other organisms and resistance markers not contained in this PCR panel cannot be excluded and follow-up of traditional culture results is required. This sample wastested at the [facility] Clinical Microbiology Laboratory using the [employer] Blood Culture ID Panel. This test is FDA cleared for in vitro diagnostic use and has been verified and approved by the [facility] Clinical Microbiology laboratory for clinical use. Reference Range: Not DetectedBASIC METABOLIC [id number] 07:05:00 Test Item Value Reference Range Comments SODIUM (BEAKER) (test 141 meq/L 136-145 idoe=205) POTASSIUM (BEAKER) (test 4.2 meq/L 3.5-5.1 itxo=313) CHLORIDE (BEAKER) (test 108 meq/L 98-107 bpgo=872) CO2 (BEAKER) (test 19 meq/L 22-29 lkqu=154) BLOOD UREA NITROGEN 54 mg/dL 7-21 (BEAKER) (test vklh=836) CREATININE (BEAKER) (test 9.62 mg/dL 0.57-1.25 rocy=688) GLUCOSE RANDOM (BEAKER) 108 mg/dL 70-105 (test csqj=684) CALCIUM (BEAKER) (test 9.0 mg/dL 8.4-10.2 gqyd=454) EGFR (BEAKER) (test 7 mL/min/1.73 sq m ESTIMATED GFR IS NOT ckkk=9345) ACCURATE CREATININE CLEARANCE IN PREDICTING GLOMERULAR FILTRATION RATE. ESTIMATED GFR IS NOT APPLICABLE FOR DIALYSIS PATIENTS. [id number] 07:01:00 Test Item Value Reference Range Comments PHOSPHORUS (BEAKER) (test lmwu=566) 4.8 mg/dL 2.3-4.7 [id number] 07:01:00 Test Item Value Reference Range Comments MAGNESIUM (BEAKER) (test wehj=568) 2.2 mg/dL 1.6-2.6 CBC W/PLT COUNT & AUTO [id number] 06:39:00 Test Item Value Reference Range Comments WHITE BLOOD CELL COUNT (BEAKER) (test mclr=668) 5.6 K/ L 3.5-10.5 RED BLOOD CELL COUNT (BEAKER) (test ioys=626) 3.27 M/ L 4.63-6.08 HEMOGLOBIN (BEAKER) (test zrjs=210) 9.1 GM/DL 13.7-17.5 HEMATOCRIT (BEAKER) (test aurr=559) 30.2 % 40.1-51.0 MEAN CORPUSCULAR VOLUME (BEAKER) (test iblm=166) 92.4 fL 79.0-92.2 MEAN CORPUSCULAR HEMOGLOBIN (BEAKER) (test 27.8 pg 25.7-32.2 qpru=413) MEAN CORPUSCULAR HEMOGLOBIN CONC (BEAKER) (test 30.1 GM/DL 32.3-36.5 yxuu=705) RED CELL DISTRIBUTION WIDTH (BEAKER) (test 15.5 % 11.6-14.4 fkyw=019) PLATELET COUNT (BEAKER) (test mceq=846) 241 K/CU MM 150-450 MEAN PLATELET VOLUME (BEAKER) (test ljeh=111) 10.9 fL 9.4-12.4 NUCLEATED RED BLOOD CELLS (BEAKER) (test 0 /100 WBC 0-0 ytzt=718) NEUTROPHILS RELATIVE PERCENT (BEAKER) (test 57 % yfxm=477) LYMPHOCYTES RELATIVE PERCENT (BEAKER) (test 26 % gndi=911) MONOCYTES RELATIVE PERCENT (BEAKER) (test 13 % xuln=595) EOSINOPHILS RELATIVE PERCENT (BEAKER) (test 4 % gdjc=427) BASOPHILS RELATIVE PERCENT (BEAKER) (test 0 % ynfo=263) NEUTROPHILS ABSOLUTE COUNT (BEAKER) (test 3.19 K/ L 1.78-5.38 geyt=968) LYMPHOCYTES ABSOLUTE COUNT (BEAKER) (test 1.43 K/ L 1.32-3.57 fehp=979) MONOCYTES ABSOLUTE COUNT (BEAKER) (test 0.72 K/ L 0.30-0.82 eyho=475) EOSINOPHILS ABSOLUTE COUNT (BEAKER) (test 0.20 K/ L 0.04-0.54 gohx=273) BASOPHILS ABSOLUTE COUNT (BEAKER) (test 0.02 K/ L 0.01-0.08 acgl=631) IMMATURE GRANULOCYTES-RELATIVE PERCENT (BEAKER) 1 % 0-1 (test nvis=3240) [id number] 23:09:00 Test Item Value Reference Range Comments SODIUM (BEAKER) (test juja=635) 141 meq/L 136-145 POTASSIUM (BEAKER) (test hwbu=033) 4.2 meq/L 3.5-5.1 CHLORIDE (BEAKER) (test mgrd=662) 106 meq/L 98-107 CO2 (BEAKER) (test pkmc=441) 22 meq/L 22-29 BASIC METABOLIC [id number] 13:19:00 Test Item Value Reference Range Comments SODIUM (BEAKER) (test 139 meq/L 136-145 tnuj=121) POTASSIUM (BEAKER) (test 4.1 meq/L 3.5-5.1 umgv=236) CHLORIDE (BEAKER) (test 105 meq/L 98-107 fcel=909) CO2 (BEAKER) (test 26 meq/L 22-29 vzkx=325) BLOOD UREA NITROGEN 43 mg/dL 7-21 (BEAKER) (test vqkb=206) CREATININE (BEAKER) (test 8.36 mg/dL 0.57-1.25 regi=518) GLUCOSE RANDOM (BEAKER) 92 mg/dL 70-105 (test pgbu=944) CALCIUM (BEAKER) (test 9.0 mg/dL 8.4-10.2 fwyi=399) EGFR (BEAKER) (test 8 mL/min/1.73 sq m ESTIMATED GFR IS NOT arjm=2874) ACCURATE CREATININE CLEARANCE IN PREDICTING GLOMERULAR FILTRATION RATE. ESTIMATED GFR IS NOT APPLICABLE FOR DIALYSIS PATIENTS. [id number] 13:11:00 Test Item Value Reference Range Comments PHOSPHORUS (BEAKER) (test zqgk=813) 3.6 mg/dL 2.3-4.7 [id number] 13:11:00 Test Item Value Reference Range Comments MAGNESIUM (BEAKER) (test vnhl=213) 2.1 mg/dL 1.6-2.6 CBC W/PLT COUNT & AUTO [id number] 12:55:00 Test Item Value Reference Range Comments WHITE BLOOD CELL COUNT (BEAKER) (test vzmb=780) 5.6 K/ L 3.5-10.5 RED BLOOD CELL COUNT (BEAKER) (test husc=089) 3.06 M/ L 4.63-6.08 HEMOGLOBIN (BEAKER) (test betm=491) 8.5 GM/DL 13.7-17.5 HEMATOCRIT (BEAKER) (test bjwq=700) 28.1 % 40.1-51.0 MEAN CORPUSCULAR VOLUME (BEAKER) (test dzst=401) 91.8 fL 79.0-92.2 MEAN CORPUSCULAR HEMOGLOBIN (BEAKER) (test 27.8 pg 25.7-32.2 ttvn=442) MEAN CORPUSCULAR HEMOGLOBIN CONC (BEAKER) (test 30.2 GM/DL 32.3-36.5 ozpp=112) RED CELL DISTRIBUTION WIDTH (BEAKER) (test 15.7 % 11.6-14.4 tpop=734) PLATELET COUNT (BEAKER) (test lzui=862) 175 K/CU MM 150-450 MEAN PLATELET VOLUME (BEAKER) (test fmqi=005) 10.5 fL 9.4-12.4 NUCLEATED RED BLOOD CELLS (BEAKER) (test 0 /100 WBC 0-0 klcv=330) NEUTROPHILS RELATIVE PERCENT (BEAKER) (test 52 % szoo=169) LYMPHOCYTES RELATIVE PERCENT (BEAKER) (test 23 % mpli=794) MONOCYTES RELATIVE PERCENT (BEAKER) (test 22 % wbuq=518) EOSINOPHILS RELATIVE PERCENT (BEAKER) (test 3 % fqql=562) BASOPHILS RELATIVE PERCENT (BEAKER) (test 0 % mgqa=209) NEUTROPHILS ABSOLUTE COUNT (BEAKER) (test 2.90 K/ L 1.78-5.38 pupo=626) LYMPHOCYTES ABSOLUTE COUNT (BEAKER) (test 1.28 K/ L 1.32-3.57 xuln=302) MONOCYTES ABSOLUTE COUNT (BEAKER) (test 1.23 K/ L 0.30-0.82 yqag=565) EOSINOPHILS ABSOLUTE COUNT (BEAKER) (test 0.14 K/ L 0.04-0.54 qddz=796) BASOPHILS ABSOLUTE COUNT (BEAKER) (test 0.02 K/ L 0.01-0.08 kkcp=378) IMMATURE GRANULOCYTES-RELATIVE PERCENT (BEAKER) 0 % 0-1 (test xpsv=8985) ANG, REMOVAL OF TUNNELED CVC [id number] 12:44:00Reason for exam:->ESRD bacteremia concern for line infection Reason for exam:->Please remove permacath, portacath,FINAL REPORT Exam: Tunnel dialysis catheter and chest [...] well without any adverse reactions. He left thedepartment in stable condition. Complication: None immediate Impression: 1. Left internal jugularchest port and right internal jugular tunneled dialysis catheter removal as described. Signed: Nellie Brooks MDReport Verified Date/ Time: 02/27/2017 12:44:21 Reading Location: [place] [address] Angio BodyReading Room VANCOMYCIN LEVEL, [id number] 05:46:00 Test Item Value Reference Range Comments VANCOMYCIN RANDOM (BEAKER) (test vyad=497) 20.4 ug/mL Reference Range: No NormalsHEPATITIS B SURFACE [id number] 15:33:00 Test Item Value Reference Range Comments HEPATITIS B SURFACE ANTIGEN (2) (BEAKER) (test Nonreactive Nonreactive itlc=8783) CBC W/PLT COUNT & AUTO [id number] 07:12:00 Test Item Value Reference Range Comments WHITE BLOOD CELL COUNT (BEAKER) (test pmfb=371) 13.9 K/ L 3.5-10.5 RED BLOOD CELL COUNT (BEAKER) (test affp=295) 3.00 M/ L 4.63-6.08 HEMOGLOBIN (BEAKER) (test jnry=613) 8.6 GM/DL 13.7-17.5 HEMATOCRIT (BEAKER) (test kfrr=400) 27.4 % 40.1-51.0 MEAN CORPUSCULAR VOLUME (BEAKER) (test kbzx=568) 91.3 fL 79.0-92.2 MEAN CORPUSCULAR HEMOGLOBIN (BEAKER) (test 28.7 pg 25.7-32.2 tyjd=773) MEAN CORPUSCULAR HEMOGLOBIN CONC (BEAKER) (test 31.4 GM/DL 32.3-36.5 gsrn=620) RED CELL DISTRIBUTION WIDTH (BEAKER) (test 15.9 % 11.6-14.4 dczk=528) PLATELET COUNT (BEAKER) (test spwn=815) 154 K/CU MM 150-450 MEAN PLATELET VOLUME (BEAKER) (test zdyp=219) 10.9 fL 9.4-12.4 NUCLEATED RED BLOOD CELLS (BEAKER) (test 0 /100 WBC 0-0 puek=785) NEUTROPHILS RELATIVE PERCENT (BEAKER) (test 78 % evrp=236) LYMPHOCYTES RELATIVE PERCENT (BEAKER) (test 9 % tkfi=564) MONOCYTES RELATIVE PERCENT (BEAKER) (test 12 % owmp=064) EOSINOPHILS RELATIVE PERCENT (BEAKER) (test 1 % hxzc=225) BASOPHILS RELATIVE PERCENT (BEAKER) (test 0 % akcj=509) NEUTROPHILS ABSOLUTE COUNT (BEAKER) (test 10.84 K/ L 1.78-5.38 mkdu=523) LYMPHOCYTES ABSOLUTE COUNT (BEAKER) (test 1.22 K/ L 1.32-3.57 vazh=402) MONOCYTES ABSOLUTE COUNT (BEAKER) (test 1.67 K/ L 0.30-0.82 wlll=138) EOSINOPHILS ABSOLUTE COUNT (BEAKER) (test 0.08 K/ L 0.04-0.54 goev=941) BASOPHILS ABSOLUTE COUNT (BEAKER) (test 0.02 K/ L 0.01-0.08 jdao=055) IMMATURE GRANULOCYTES-RELATIVE PERCENT (BEAKER) 1 % 0-1 (test axcy=1764) BASIC METABOLIC [id number] 06:47:00 Test Item Value Reference Range Comments SODIUM (BEAKER) (test 136 meq/L 136-145 lhfg=632) POTASSIUM (BEAKER) (test 4.5 meq/L 3.5-5.1 onrp=366) CHLORIDE (BEAKER) (test 106 meq/L 98-107 usgs=783) CO2 (BEAKER) (test 21 meq/L 22-29 fpcq=291) BLOOD UREA NITROGEN 50 mg/dL 7-21 (BEAKER) (test pvbi=257) CREATININE (BEAKER) (test 8.92 mg/dL 0.57-1.25 qxda=390) GLUCOSE RANDOM (BEAKER) 92 mg/dL 70-105 (test zygg=966) CALCIUM (BEAKER) (test 8.7 mg/dL 8.4-10.2 sxcg=268) EGFR (BEAKER) (test 7 mL/min/1.73 sq m ESTIMATED GFR IS NOT xvfl=0458) ACCURATE CREATININE CLEARANCE IN PREDICTING GLOMERULAR FILTRATION RATE. ESTIMATED GFR IS NOT APPLICABLE FOR DIALYSIS PATIENTS. [id number] 06:43:00 Test Item Value Reference Range Comments PHOSPHORUS (BEAKER) (test klko=204) 3.0 mg/dL 2.3-4.7 PROTHROMBIN [id number] 06:07:00 Test Item Value Reference Range Comments PROTIME (BEAKER) (test ihsi=513) 15.2 seconds 11.7-14.7 INR (BEAKER) (test jlqe=264) 1.2 <=5.9 RECOMMENDED COUMADIN/WARFARIN INR THERAPY RANGESSTANDARD DOSE: 2.0 - 3.0 Includes: PROPHYLAXIS forvenous thrombosis, systemic embolization; TREATMENT for venous thrombosis and/or pulmonary embolus.HIGH RISK: Target INR is 2.5-3.5 for patients with mechanical heart valves.LATASHA, TUNNELED DIALYSIS CATH [id number] 07:52:00FINAL REPORT Tunneled dialysis catheter insertion, 01/25/2017. History: Renal failure. Modality: Sonography and fluoroscopy. Sedation: Versed 1.0 mg and fentanyl 100 mcg was given intravenously for conscious sedation. Vital signs were monitored throughout the procedure by a nurse, and remained stable. Physician intra- servicetime was 20 minutes. Water Main Installer Helper: Dimple. Case Assistant: None. Approach: Right internal jugular vein Estimated blood loss: < 5 cc. Specimen: None. Fluoroscopy Time: 0.4 min. Dose (Ka,r): 2.9 mGy. Technique: Informed written consent was obtained. Discussion of risks, benefits, and alternatives were made with the patient. The patient expressed understanding and agreed to proceed. All elements maximal sterile barrier technique was utilized for this procedure, including utilization of sterile scrub solution for skin prep, a large sterile sheet to cover the areas of the patient that were not prepped, and hand hygiene , mask, head covering, and sterile gown for performing radiologist and scrub technologist. The skin was anesthetized with 2% lidocaine.Ultrasound evaluation showed a patent and compressible right internal jugular vein, which was punctured under direct real-time ultrasound guidance with a micropuncture needle. An ultrasound image was saved to PACS. A 0.018 inch wire was placed through the needle into the right atrium. A 4 Nigerian micropuncture sheath was placed. A subcutaneous tunnel was created in the right anterior chest wall by blunt dissection. A 19 cm 15.5 Nigerian Duraflow 2 catheter was brought through the tunnel. The vessel tract was serially dilated over a J- wire. A peel-away sheath was placed in the right IJ vein and the catheter was advanced through the sheath, with its distal tip terminating in the right atrium. The peel-away sheath was removed. The ports were flushed and aspirated easily following placement. The catheter was sutured to the skin with2-0 silk to secure its placement. The small jugular incision site was closed using resorbable suture. Vital signs were monitored throughout the procedure by a nurse, and remained stable. The patient tolerated the procedure well and left the department in the same condition. The patient was given 1 gram of Ancef intravenously during the procedure. Results: Spot radiograph of the chest demonstratesthe new dialysis catheter to lie in the expected position with its tip overlying the superior right atrium. Impression: Successful, uncomplicated placement of a right internal jugular tunneled dialysis catheter using sonographic and fluoroscopic guidance and conscious sedation. Signed: Dimple, Hari MDReport Verified Date/Time: 01/26/2017 07:52:45 Reading Location: [place] [id number] Angio Body Reading Room POCT- GLUCOSE [id number] 01:07:00 Test Item Value Reference Range Comments POC-GLUCOSE METER (BEAKER) 179 mg/dL 70-110 TESTED AT [facility] [address] [facility] (test kyev=2254) [facility] [address] BASIC METABOLIC [id number] 21:57:00 Test Item Value Reference Range Comments SODIUM (BEAKER) (test 139 meq/L 136-145 dxhz=232) POTASSIUM (BEAKER) (test 3.9 meq/L 3.5-5.1 kdmh=269) CHLORIDE (BEAKER) (test 105 meq/L 98-107 sjgm=238) CO2 (BEAKER) (test 21 meq/L 22-29 owpc=755) BLOOD UREA NITROGEN 33 mg/dL 7-21 (BEAKER) (test mhks=660) CREATININE (BEAKER) (test 6.75 mg/dL 0.57-1.25 asmt=671) GLUCOSE RANDOM (BEAKER) 166 mg/dL 70-105 (test zslf=659) CALCIUM (BEAKER) (test 9.4 mg/dL 8.4-10.2 vtpv=916) EGFR (BEAKER) (test 10 mL/min/1.73 sq m ESTIMATED GFR IS NOT lyle=9179) ACCURATE CREATININE CLEARANCE IN PREDICTING GLOMERULAR FILTRATION RATE. ESTIMATED GFR IS NOT APPLICABLE FOR DIALYSIS PATIENTS. CREATINE KINASE (CK), TOTAL AND [id number] 21:52:00 Test Item Value Reference Range Comments CREATINE KINASE TOTAL (BEAKER) (test znfb=897) 159 U/L 29-200 CREATINE KINASE-MB (BEAKER) (test mvpl=655) 0.8 ng/mL 0.0-6.6 CREATINE KINASE-MB INDEX (BEAKER) (test bdrx=673) 0.5 % CK-MB Reference Range:<6.7 Normal6.7-10.0 Borderline>10.0 AbnormalRAD, CHEST, 1 VIEW, NON [id number] 21:52:00Reason for exam:-> CHEST PAINShould this be performed at the bedside?->YesFINAL REPORT INDICATION: CHEST PAIN COMPARISON: May 20, [...] port that terminates in the low SVC. Signed:David Leach MDReport Verified Date/ Time: 01/25/2017 21:52:27 Reading Location: [address] Consult Reading Room TROPONIN [id number] 21:27:00 Test Item Value Reference Range Comments TROPONIN I (BEAKER) (test onvq=959) 0.01 ng/mL 0.00-0.03 Troponin I (TnI) levels must be interpreted [...] failure, acidosis, acute neurological disease, and persistent tachyarrhythmia.CBC W/PLT COUNT & AUTO [id number] 21:06:00 Test Item Value Reference Range Comments WHITE BLOOD CELL COUNT (BEAKER) (test okvk=928) 9.3 K/ L 3.5-10.5 RED BLOOD CELL COUNT (BEAKER) (test vhsk=540) 3.86 M/ L 4.63-6.08 HEMOGLOBIN (BEAKER) (test hwxb=034) 10.8 GM/DL 13.7-17.5 HEMATOCRIT (BEAKER) (test yizz=179) 34.4 % 40.1-51.0 MEAN CORPUSCULAR VOLUME (BEAKER) (test szmy=697) 89.1 fL 79.0-92.2 MEAN CORPUSCULAR HEMOGLOBIN (BEAKER) (test 28.0 pg 25.7-32.2 iqbs=380) MEAN CORPUSCULAR HEMOGLOBIN CONC (BEAKER) (test 31.4 GM/DL 32.3-36.5 jaus=270) RED CELL DISTRIBUTION WIDTH (BEAKER) (test 15.1 % 11.6-14.4 wmln=818) PLATELET COUNT (BEAKER) (test sjnx=660) 238 K/CU MM 150-450 MEAN PLATELET VOLUME (BEAKER) (test iwga=386) 10.3 fL 9.4-12.4 NUCLEATED RED BLOOD CELLS (BEAKER) (test 0 /100 WBC 0-0 dmcm=430) NEUTROPHILS RELATIVE PERCENT (BEAKER) (test 71 % oldo=185) LYMPHOCYTES RELATIVE PERCENT (BEAKER) (test 16 % hczq=313) MONOCYTES RELATIVE PERCENT (BEAKER) (test 10 % wbrg=357) EOSINOPHILS RELATIVE PERCENT (BEAKER) (test 1 % smnt=038) BASOPHILS RELATIVE PERCENT (BEAKER) (test 0 % oghc=639) NEUTROPHILS ABSOLUTE COUNT (BEAKER) (test 6.59 K/ L 1.78-5.38 layj=958) LYMPHOCYTES ABSOLUTE COUNT (BEAKER) (test 1.52 K/ L 1.32-3.57 zhbu=634) MONOCYTES ABSOLUTE COUNT (BEAKER) (test 0.88 K/ L 0.30-0.82 qule=489) EOSINOPHILS ABSOLUTE COUNT (BEAKER) (test 0.10 K/ L 0.04-0.54 okyb=167) BASOPHILS ABSOLUTE COUNT (BEAKER) (test 0.03 K/ L 0.01-0.08 ocvd=133) IMMATURE GRANULOCYTES-RELATIVE PERCENT (BEAKER) 2 % 0-1 (test rdbt=5962) HEPATITIS B SURFACE [id number] 15:55:00 Test Item Value Reference Range Comments HEPATITIS B SURFACE ANTIGEN (2) (BEAKER) (test Nonreactive Nonreactive stuc=4537) BASIC METABOLIC [id number] 07:30:00 Test Item Value Reference Range Comments SODIUM (BEAKER) (test 138 meq/L 136-145 ysxz=621) POTASSIUM (BEAKER) (test 4.8 meq/L 3.5-5.1 voql=988) CHLORIDE (BEAKER) (test 109 meq/L 98-107 dzqw=938) CO2 (BEAKER) (test 17 meq/L 22-29 eego=064) BLOOD UREA NITROGEN 75 mg/dL 7-21 (BEAKER) (test jrud=431) CREATININE (BEAKER) (test 11.02 mg/dL 0.57-1.25 uwee=600) GLUCOSE RANDOM (BEAKER) 99 mg/dL 70-105 (test yjyf=150) CALCIUM (BEAKER) (test 8.6 mg/dL 8.4-10.2 tryu=177) EGFR (BEAKER) (test 6 mL/min/1.73 sq m ESTIMATED GFR IS NOT nznx=4421) ACCURATE CREATININE CLEARANCE IN PREDICTING GLOMERULAR FILTRATION RATE. ESTIMATED GFR IS NOT APPLICABLE FOR DIALYSIS PATIENTS. [id number] 07:18:00 Test Item Value Reference Range Comments PHOSPHORUS (BEAKER) (test sdzn=268) 5.9 mg/dL 2.3-4.7 [id number] 07:18:00 Test Item Value Reference Range Comments MAGNESIUM (BEAKER) (test zify=562) 2.2 mg/dL 1.6-2.6 PROTHROMBIN [id number] 06:43:00 Test Item Value Reference Range Comments PROTIME (BEAKER) (test zpfm=929) 13.6 seconds 11.7-14.7 INR (BEAKER) (test avjv=883) 1.1 <=5.9 RECOMMENDED COUMADIN/WARFARIN INR THERAPY RANGESSTANDARD DOSE: 2.0 - 3.0 Includes: PROPHYLAXIS forvenous thrombosis, systemic embolization; TREATMENT for venous thrombosis and/or pulmonary embolus.HIGH RISK: Target INR is 2.5-3.5 for patients with mechanical heart valves.CBC W/PLT COUNT & AUTO [id number] 06:42:00 Test Item Value Reference Range Comments WHITE BLOOD CELL COUNT (BEAKER) (test smxl=359) 8.4 K/ L 3.5-10.5 RED BLOOD CELL COUNT (BEAKER) (test tyjx=553) 3.48 M/ L 4.63-6.08 HEMOGLOBIN (BEAKER) (test ewhj=144) 9.8 GM/DL 13.7-17.5 HEMATOCRIT (BEAKER) (test xxri=198) 31.4 % 40.1-51.0 MEAN CORPUSCULAR VOLUME (BEAKER) (test euno=962) 90.2 fL 79.0-92.2 MEAN CORPUSCULAR HEMOGLOBIN (BEAKER) (test 28.2 pg 25.7-32.2 tiop=439) MEAN CORPUSCULAR HEMOGLOBIN CONC (BEAKER) (test 31.2 GM/DL 32.3-36.5 acuu=864) RED CELL DISTRIBUTION WIDTH (BEAKER) (test 15.1 % 11.6-14.4 qgfa=419) PLATELET COUNT (BEAKER) (test bbha=259) 240 K/CU MM 150-450 MEAN PLATELET VOLUME (BEAKER) (test rbai=261) 10.9 fL 9.4-12.4 NUCLEATED RED BLOOD CELLS (BEAKER) (test 0 /100 WBC 0-0 mttg=783) NEUTROPHILS RELATIVE PERCENT (BEAKER) (test 67 % tqfn=577) LYMPHOCYTES RELATIVE PERCENT (BEAKER) (test 18 % ensm=977) MONOCYTES RELATIVE PERCENT (BEAKER) (test 12 % subu=297) EOSINOPHILS RELATIVE PERCENT (BEAKER) (test 2 % tcbd=630) BASOPHILS RELATIVE PERCENT (BEAKER) (test 0 % gwym=818) NEUTROPHILS ABSOLUTE COUNT (BEAKER) (test 5.66 K/ L 1.78-5.38 rzcp=516) LYMPHOCYTES ABSOLUTE COUNT (BEAKER) (test 1.50 K/ L 1.32-3.57 tkxj=025) MONOCYTES ABSOLUTE COUNT (BEAKER) (test 1.03 K/ L 0.30-0.82 vpol=490) EOSINOPHILS ABSOLUTE COUNT (BEAKER) (test 0.13 K/ L 0.04-0.54 jekw=575) BASOPHILS ABSOLUTE COUNT (BEAKER) (test 0.02 K/ L 0.01-0.08 gtvc=814) IMMATURE GRANULOCYTES-RELATIVE PERCENT (BEAKER) 1 % 0-1 (test uvyq=0456) CBC W/PLT COUNT & AUTO [id number] 14:36:00 Test Item Value Reference Range Comments WHITE BLOOD CELL COUNT (BEAKER) (test nwwo=921) 9.4 K/ L 4.0-10.0 RED BLOOD CELL COUNT (BEAKER) (test lazj=303) 2.90 M/ L 4.20-5.80 HEMOGLOBIN (BEAKER) (test ypvw=228) 8.5 GM/DL 13.0-16.8 HEMATOCRIT (BEAKER) (test faew=735) 28.6 % 40.0-50.0 MEAN CORPUSCULAR VOLUME (BEAKER) (test ktqn=152) 98.5 fL 82.0-98.0 MEAN CORPUSCULAR HEMOGLOBIN (BEAKER) (test 29.2 pg 27.0-33.0 vtim=943) MEAN CORPUSCULAR HEMOGLOBIN CONC (BEAKER) (test 29.7 GM/DL 32.0-36.0 gakn=753) RED CELL DISTRIBUTION WIDTH (BEAKER) (test 16.2 % 10.3-14.2 ylgy=174) PLATELET COUNT (BEAKER) (test zvbk=797) 238 K/CU MM 150-430 MEAN PLATELET VOLUME (BEAKER) (test sdoz=783) 8.7 fL 6.5-10.5 NUCLEATED RED BLOOD CELLS (BEAKER) (test 1 /100 WBC 0-0 jhic=655) NEUTROPHILS RELATIVE PERCENT (BEAKER) (test 94 % vyms=377) LYMPHOCYTES RELATIVE PERCENT (BEAKER) (test 3 % xiep=548) MONOCYTES RELATIVE PERCENT (BEAKER) (test 2 % thap=923) EOSINOPHILS RELATIVE PERCENT (BEAKER) (test 0 % nczl=460) BASOPHILS RELATIVE PERCENT (BEAKER) (test 0 % jmol=513) NEUTROPHILS ABSOLUTE COUNT (BEAKER) (test 8.82 K/ L 1.80-8.00 gkpr=191) LYMPHOCYTES ABSOLUTE COUNT (BEAKER) (test 0.31 K/ L 1.48-4.50 lcfq=550) MONOCYTES ABSOLUTE COUNT (BEAKER) (test 0.23 K/ L 0.00-1.30 rhuc=866) EOSINOPHILS ABSOLUTE COUNT (BEAKER) (test 0.02 K/ L 0.00-0.50 aojn=091) BASOPHILS ABSOLUTE COUNT (BEAKER) (test 0.00 K/ L 0.00-0.20 tdvy=364) 0.00(MANUAL DIFFERENTIAL)2016-08-28 14:36:00 Test Item Value Reference Range Comments TOTAL COUNTED (BEAKER) (test cnqs=2638) WBC MORPHOLOGY (BEAKER) (test liow=305) Normal GIANT PLATELETS (BEAKER) (test ncqn=512) Present SCHISTOCYTES (BEAKER) (test quky=072) 1+ few ACANTHOCYTES (BEAKER) (test ttus=528) 1+ few ANISOCYTOSIS (BEAKER) (test nsut=707) 2+ moderate HYPOCHROMIA (BEAKER) (test pntl=062) 1+ few MACROCYTES (BEAKER) (test qejs=431) 2+ moderate MICROCYTES (BEAKER) (test ryjb=191) 1+ few OVALOCYTES (BEAKER) (test dtvo=222) 1+ few POIKILOCYTES (BEAKER) (test xbfi=339) 2+ moderate POLYCHROMATOPHILLIC RBCS(BEAKER) (test ckog=338) 1+ few TARGET CELLS (BEAKER) (test vosa=429) 1+ few BASIC METABOLIC [id number] 07:18:00 Test Item Value Reference Range Comments SODIUM (BEAKER) (test 141 meq/L 136-145 lwkb=969) POTASSIUM (BEAKER) (test 4.7 meq/L 3.5-5.1 ogpu=461) CHLORIDE (BEAKER) (test 107 meq/L 98-107 ybvy=258) CO2 (BEAKER) (test 20 meq/L 22-29 pjob=137) BLOOD UREA NITROGEN 60 mg/dL 7-21 (BEAKER) (test ivrn=625) CREATININE (BEAKER) (test 7.34 mg/dL 0.57-1.25 xfno=460) GLUCOSE RANDOM (BEAKER) 161 mg/dL 70-105 (test tiiu=257) CALCIUM (BEAKER) (test 8.5 mg/dL 8.4-10.2 lkqc=142) EGFR (BEAKER) (test 9 mL/min/1.73 sq m ESTIMATED GFR IS NOT mibd=2138) ACCURATE CREATININE CLEARANCE IN PREDICTING GLOMERULAR FILTRATION RATE. ESTIMATED GFR IS NOT APPLICABLE FOR DIALYSIS PATIENTS. [id number] 07:11:00 Test Item Value Reference Range Comments PHOSPHORUS (BEAKER) (test ycxx=794) 3.7 mg/dL 2.3-4.7 CBC W/PLT COUNT & AUTO [id number] 11:27:00 Test Item Value Reference Range Comments WHITE BLOOD CELL COUNT (BEAKER) (test psxd=613) 10.9 K/ L 4.0-10.0 RED BLOOD CELL COUNT (BEAKER) (test ysib=144) 3.06 M/ L 4.20-5.80 HEMOGLOBIN (BEAKER) (test oewe=482) 9.3 GM/DL 13.0-16.8 HEMATOCRIT (BEAKER) (test ocio=181) 30.3 % 40.0-50.0 MEAN CORPUSCULAR VOLUME (BEAKER) (test tmst=227) 99.0 fL 82.0-98.0 MEAN CORPUSCULAR HEMOGLOBIN (BEAKER) (test 30.5 pg 27.0-33.0 zbtl=682) MEAN CORPUSCULAR HEMOGLOBIN CONC (BEAKER) (test 30.8 GM/DL 32.0-36.0 ykie=843) RED CELL DISTRIBUTION WIDTH (BEAKER) (test 16.5 % 10.3-14.2 dzta=115) PLATELET COUNT (BEAKER) (test rzys=154) 253 K/CU MM 150-430 MEAN PLATELET VOLUME (BEAKER) (test hhgk=183) 8.7 fL 6.5-10.5 NUCLEATED RED BLOOD CELLS (BEAKER) (test 1 /100 WBC 0-0 oysd=964) NEUTROPHILS RELATIVE PERCENT (BEAKER) (test 92 % ewni=434) LYMPHOCYTES RELATIVE PERCENT (BEAKER) (test 4 % aebz=477) MONOCYTES RELATIVE PERCENT (BEAKER) (test 3 % lgdm=379) EOSINOPHILS RELATIVE PERCENT (BEAKER) (test 0 % wnxh=933) BASOPHILS RELATIVE PERCENT (BEAKER) (test 0 % jyfx=785) NEUTROPHILS ABSOLUTE COUNT (BEAKER) (test 10.00 K/ L 1.80-8.00 fzgh=149) LYMPHOCYTES ABSOLUTE COUNT (BEAKER) (test 0.44 K/ L 1.48-4.50 wozf=210) MONOCYTES ABSOLUTE COUNT (BEAKER) (test 0.37 K/ L 0.00-1.30 fjyi=515) EOSINOPHILS ABSOLUTE COUNT (BEAKER) (test 0.01 K/ L 0.00-0.50 gych=029) BASOPHILS ABSOLUTE COUNT (BEAKER) (test 0.00 K/ L 0.00-0.20 xoyv=272) 0.00(MANUAL DIFFERENTIAL)2016-08-27 11:27:00 Test Item Value Reference Range Comments TOTAL COUNTED (BEAKER) (test yeiv=4084) WBC MORPHOLOGY (BEAKER) (test oqqa=793) Normal PLT MORPHOLOGY (BEAKER) (test ibfy=350) Normal POLYCHROMATOPHILLIC RBCS(BEAKER) (test jcgz=861) 1+ few BASIC METABOLIC [id number] 08:40:00 Test Item Value Reference Range Comments SODIUM (BEAKER) (test 138 meq/L 136-145 alxo=444) POTASSIUM (BEAKER) (test 4.3 meq/L 3.5-5.1 fzgz=630) CHLORIDE (BEAKER) (test 103 meq/L 98-107 utwg=686) CO2 (BEAKER) (test 23 meq/L 22-29 yalj=916) BLOOD UREA NITROGEN 35 mg/dL 7-21 (BEAKER) (test qdsx=209) CREATININE (BEAKER) (test 6.29 mg/dL 0.57-1.25 ywiy=472) GLUCOSE RANDOM (BEAKER) 136 mg/dL 70-105 (test uyte=863) CALCIUM (BEAKER) (test 8.8 mg/dL 8.4-10.2 oajh=075) EGFR (BEAKER) (test 11 mL/min/1.73 sq m ESTIMATED GFR IS NOT inpz=6668) ACCURATE CREATININE CLEARANCE IN PREDICTING GLOMERULAR FILTRATION RATE. ESTIMATED GFR IS NOT APPLICABLE FOR DIALYSIS PATIENTS. [id number] 08:38:00 Test Item Value Reference Range Comments PHOSPHORUS (BEAKER) (test mwyl=807) 4.0 mg/dL 2.3-4.7 CBC W/PLT COUNT & AUTO [id number] 13:06:00 Test Item Value Reference Range Comments WHITE BLOOD CELL COUNT (BEAKER) (test qnfr=232) 13.0 K/ L 4.0-10.0 RED BLOOD CELL COUNT (BEAKER) (test ddjy=467) 2.94 M/ L 4.20-5.80 HEMOGLOBIN (BEAKER) (test xool=152) 9.5 GM/DL 13.0-16.8 HEMATOCRIT (BEAKER) (test uywn=722) 28.8 % 40.0-50.0 MEAN CORPUSCULAR VOLUME (BEAKER) (test rpvd=232) 98.1 fL 82.0-98.0 MEAN CORPUSCULAR HEMOGLOBIN (BEAKER) (test 32.4 pg 27.0-33.0 mnhf=553) MEAN CORPUSCULAR HEMOGLOBIN CONC (BEAKER) (test 33.0 GM/DL 32.0-36.0 qhfw=939) RED CELL DISTRIBUTION WIDTH (BEAKER) (test 16.9 % 10.3-14.2 ylkk=291) PLATELET COUNT (BEAKER) (test vrio=932) 243 K/CU MM 150-430 MEAN PLATELET VOLUME (BEAKER) (test pohx=985) 8.7 fL 6.5-10.5 NUCLEATED RED BLOOD CELLS (BEAKER) (test 0 /100 WBC 0-0 hexo=443) NEUTROPHILS RELATIVE PERCENT (BEAKER) (test 92 % ftym=845) LYMPHOCYTES RELATIVE PERCENT (BEAKER) (test 5 % vaer=262) MONOCYTES RELATIVE PERCENT (BEAKER) (test 2 % bppv=273) EOSINOPHILS RELATIVE PERCENT (BEAKER) (test 0 % gdpy=471) BASOPHILS RELATIVE PERCENT (BEAKER) (test 0 % mhvl=416) NEUTROPHILS ABSOLUTE COUNT (BEAKER) (test 12.00 K/ L 1.80-8.00 idbd=224) LYMPHOCYTES ABSOLUTE COUNT (BEAKER) (test 0.70 K/ L 1.48-4.50 aqdy=541) MONOCYTES ABSOLUTE COUNT (BEAKER) (test 0.28 K/ L 0.00-1.30 varz=776) EOSINOPHILS ABSOLUTE COUNT (BEAKER) (test 0.05 K/ L 0.00-0.50 xnnw=693) BASOPHILS ABSOLUTE COUNT (BEAKER) (test 0.02 K/ L 0.00-0.20 aoch=768) 0.00(MANUAL DIFFERENTIAL)2016-08-26 13:06:00 Test Item Value Reference Range Comments TOTAL COUNTED (BEAKER) (test xdok=2692) WBC MORPHOLOGY (BEAKER) (test xpka=753) Normal PLT MORPHOLOGY (BEAKER) (test oovm=419) Normal RBC MORPHOLOGY (BEAKER) (test cafa=656) Normal HEPATITIS B [id number] 11:49:00 Test Item Value Reference Range Comments HEPATITIS B CORE TOTAL ANTIBODY (BEAKER) (test Nonreactive Nonreactive kdmw=141) HEPATITIS B SURFACE ANTIBODY (BEAKER) (test < mIU/mL <8.0 wokw=014) HEPATITIS B SURFACE ANTIGEN (2) (BEAKER) (test Nonreactive Nonreactive cpsz=9058) [id number] 11:19:00 Test Item Value Reference Range Comments PROTIME (BEAKER) (test afcz=395) 13.3 seconds 11.7-14.7 INR (BEAKER) (test xbht=953) 1.0 <=5.9 PARTIAL THROMBOPLASTIN TIME (BEAKER) (test 32.9 seconds 22.5-36.0 ulkf=765) RECOMMENDED COUMADIN/WARFARIN INR THERAPY RANGESSTANDARD DOSE: 2.0 - 3.0 Includes: PROPHYLAXIS forvenous thrombosis, systemic embolization; TREATMENT for venous thrombosis and/or pulmonary embolus.HIGH RISK: Target INR is 2.5-3.5 for patients with mechanical heart valves.BASIC METABOLIC [id number] 07:32: 00 Test Item Value Reference Range Comments SODIUM (BEAKER) (test 137 meq/L 136-145 djzu=790) POTASSIUM (BEAKER) (test 6.1 meq/L 3.5-5.1 hklo=905) CHLORIDE (BEAKER) (test 109 meq/L 98-107 maqn=252) CO2 (BEAKER) (test 19 meq/L 22-29 dwrn=793) BLOOD UREA NITROGEN 46 mg/dL 7-21 (BEAKER) (test hgwc=355) CREATININE (BEAKER) (test 7.89 mg/dL 0.57-1.25 ypvm=066) GLUCOSE RANDOM (BEAKER) 139 mg/dL 70-105 (test mbee=764) CALCIUM (BEAKER) (test 8.5 mg/dL 8.4-10.2 ooda=687) EGFR (BEAKER) (test 9 mL/min/1.73 sq m ESTIMATED GFR IS NOT xkri=5590) ACCURATE CREATININE CLEARANCE IN PREDICTING GLOMERULAR FILTRATION RATE. ESTIMATED GFR IS NOT APPLICABLE FOR DIALYSIS PATIENTS. [id number] 07:17:00 Test Item Value Reference Range Comments PHOSPHORUS (BEAKER) (test ynsr=013) 3.3 mg/dL 2.3-4.7 [id number] 07:17:00 Test Item Value Reference Range Comments MAGNESIUM (BEAKER) (test qpxl=390) 2.0 mg/dL 1.6-2.6 HEPATIC FUNCTION [id number] 07:17:00 Test Item Value Reference Range Comments TOTAL PROTEIN (BEAKER) (test tqnf=946) 6.3 gm/dL 6.0-8.3 ALBUMIN (BEAKER) (test pwye=3844) 3.5 g/dL 3.5-5.0 BILIRUBIN TOTAL (BEAKER) (test igmi=433) 0.4 mg/dL 0.2-1.2 BILIRUBIN DIRECT (BEAKER) (test wukw=194) 0.1 mg/dL 0.1-0.5 ALKALINE PHOSPHATASE (BEAKER) (test javt=130) 59 U/L 40-150 AST (SGOT) (BEAKER) (test wstd=212) 15 U/L 5-34 ALT (SGPT) (BEAKER) (test whff=470) 13 U/L 6-55 COMPREHENSIVE METABOLIC [id number] 17:39:00 Test Item Value Reference Range Comments TOTAL PROTEIN (BEAKER) 6.2 gm/dL 6.0-8.3 Specimen slightly (test vqut=995) hemolyzed ALBUMIN (BEAKER) (test 3.5 g/dL 3.5-5.0 Specimen slightly sjjt=4850) hemolyzed ALKALINE PHOSPHATASE 55 U/L 40-150 (BEAKER) (test fjes=180) BILIRUBIN TOTAL (BEAKER) 0.2 mg/dL 0.2-1.2 Specimen slightly (test zuag=919) hemolyzed SODIUM (BEAKER) (test 138 meq/L 136-145 duhn=756) POTASSIUM (BEAKER) (test 4.4 meq/L 3.5-5.1 Specimen slightly psxr=977) hemolyzed CHLORIDE (BEAKER) (test 105 meq/L 98-107 cpyr=559) CO2 (BEAKER) (test 23 meq/L 22-29 xiih=632) BLOOD UREA NITROGEN 41 mg/dL 7-21 (BEAKER) (test yyon=626) CREATININE (BEAKER) (test 7.65 mg/dL 0.57-1.25 Specimen slightly chtk=241) hemolyzed GLUCOSE RANDOM (BEAKER) 106 mg/dL 70-105 (test ownr=965) CALCIUM (BEAKER) (test 9.0 mg/dL 8.4-10.2 gbep=405) AST (SGOT) (BEAKER) (test 16 U/L 5-34 Specimen slightly zeia=293) hemolyzed ALT (SGPT) (BEAKER) (test 13 U/L 6-55 Specimen slightly njyk=565) hemolyzed EGFR (BEAKER) (test 9 mL/min/1.73 sq m ESTIMATED GFR IS NOT xrsx=8492) ACCURATE CREATININE CLEARANCE IN PREDICTING GLOMERULAR FILTRATION RATE. ESTIMATED GFR IS NOT APPLICABLE FOR DIALYSIS PATIENTS. [id number] 17:36:00 Test Item Value Reference Range Comments MAGNESIUM (BEAKER) (test 2.2 mg/dL 1.6-2.6 Specimen slightly hemolyzed lfqa=053) CBC W/PLT COUNT & AUTO [id number] 16:57:00 Test Item Value Reference Range Comments WHITE BLOOD CELL COUNT (BEAKER) (test wlhs=954) 16.8 K/ L 4.0-10.0 RED BLOOD CELL COUNT (BEAKER) (test icwo=341) 2.75 M/ L 4.20-5.80 HEMOGLOBIN (BEAKER) (test xgsv=621) 8.4 GM/DL 13.0-16.8 HEMATOCRIT (BEAKER) (test guru=497) 26.5 % 40.0-50.0 MEAN CORPUSCULAR VOLUME (BEAKER) (test wmeo=393) 96.7 fL 82.0-98.0 MEAN CORPUSCULAR HEMOGLOBIN (BEAKER) (test 30.7 pg 27.0-33.0 lcod=965) MEAN CORPUSCULAR HEMOGLOBIN CONC (BEAKER) (test 31.8 GM/DL 32.0-36.0 ycsg=600) RED CELL DISTRIBUTION WIDTH (BEAKER) (test 16.0 % 10.3-14.2 yjzp=909) PLATELET COUNT (BEAKER) (test vbgc=212) 232 K/CU MM 150-430 MEAN PLATELET VOLUME (BEAKER) (test evep=325) 8.4 fL 6.5-10.5 NUCLEATED RED BLOOD CELLS (BEAKER) (test 0 /100 WBC 0-0 zlda=544) NEUTROPHILS RELATIVE PERCENT (BEAKER) (test 74 % wwzn=288) LYMPHOCYTES RELATIVE PERCENT (BEAKER) (test 8 % zawq=161) MONOCYTES RELATIVE PERCENT (BEAKER) (test 17 % vmaq=894) EOSINOPHILS RELATIVE PERCENT (BEAKER) (test 1 % rpon=265) BASOPHILS RELATIVE PERCENT (BEAKER) (test 0 % obdk=555) NEUTROPHILS ABSOLUTE COUNT (BEAKER) (test 12.30 K/ L 1.80-8.00 xetx=045) LYMPHOCYTES ABSOLUTE COUNT (BEAKER) (test 1.38 K/ L 1.48-4.50 htvn=918) MONOCYTES ABSOLUTE COUNT (BEAKER) (test 2.89 K/ L 0.00-1.30 wjic=907) EOSINOPHILS ABSOLUTE COUNT (BEAKER) (test 0.11 K/ L 0.00-0.50 atby=058) BASOPHILS ABSOLUTE COUNT (BEAKER) (test 0.05 K/ L 0.00-0.20 acoj=767) 0.00COMPREHENSIVE METABOLIC [id number] 06:52:00 Test Item Value Reference Range Comments TOTAL PROTEIN (BEAKER) 6.3 gm/dL 6.0-8.3 (test qyem=279) ALBUMIN (BEAKER) (test 3.5 g/dL 3.5-5.0 vrsh=5181) ALKALINE PHOSPHATASE 54 U/L 40-150 (BEAKER) (test whdk=529) BILIRUBIN TOTAL (BEAKER) 0.3 mg/dL 0.2-1.2 (test khas=218) SODIUM (BEAKER) (test 138 meq/L 136-145 afvm=058) POTASSIUM (BEAKER) (test 4.1 meq/L 3.5-5.1 qash=562) CHLORIDE (BEAKER) (test 103 meq/L 98-107 tbsx=020) CO2 (BEAKER) (test 20 meq/L 22-29 cyfx=383) BLOOD UREA NITROGEN 58 mg/dL 7-21 (BEAKER) (test qdsu=987) CREATININE (BEAKER) (test 6.55 mg/dL 0.57-1.25 mnqi=107) GLUCOSE RANDOM (BEAKER) 131 mg/dL 70-105 (test lnbp=957) CALCIUM (BEAKER) (test 8.5 mg/dL 8.4-10.2 iurq=149) AST (SGOT) (BEAKER) (test 12 U/L 5-34 dlpv=310) ALT (SGPT) (BEAKER) (test 12 U/L 6-55 xwrd=839) EGFR (BEAKER) (test 11 mL/min/1.73 sq m ESTIMATED GFR IS NOT kmeu=8387) ACCURATE CREATININE CLEARANCE IN PREDICTING GLOMERULAR FILTRATION RATE. ESTIMATED GFR IS NOT APPLICABLE FOR DIALYSIS PATIENTS. URIC [id number] 06:51:00 Test Item Value Reference Range Comments URIC ACID (BEAKER) (test nzfi=824) 8.2 mg/dL 2.6-7.2 LACTATE DEHYDROGENASE (LDH)2016-08-07 06:51:00 Test Item Value Reference Range Comments LACTATE DEHYDROGENASE (BEAKER) (test rkwz=062) 233 U/L 125-220 CBC W/PLT COUNT & AUTO [id number] 15:03:00 Test Item Value Reference Range Comments WHITE BLOOD CELL COUNT (BEAKER) (test gkql=571) 19.7 K/ L 4.0-10.0 RED BLOOD CELL COUNT (BEAKER) (test lbzm=914) 2.79 M/ L 4.20-5.80 HEMOGLOBIN (BEAKER) (test esga=338) 8.7 GM/DL 13.0-16.8 HEMATOCRIT (BEAKER) (test pujo=553) 26.9 % 40.0-50.0 MEAN CORPUSCULAR VOLUME (BEAKER) (test kyuj=751) 96.4 fL 82.0-98.0 MEAN CORPUSCULAR HEMOGLOBIN (BEAKER) (test 31.1 pg 27.0-33.0 exxe=113) MEAN CORPUSCULAR HEMOGLOBIN CONC (BEAKER) (test 32.3 GM/DL 32.0-36.0 oklw=683) RED CELL DISTRIBUTION WIDTH (BEAKER) (test 17.2 % 10.3-14.2 tqzd=094) PLATELET COUNT (BEAKER) (test wlmq=588) 294 K/CU MM 150-430 MEAN PLATELET VOLUME (BEAKER) (test aowb=932) 8.7 fL 6.5-10.5 NUCLEATED RED BLOOD CELLS (BEAKER) (test 0 /100 WBC 0-0 muwi=992) NEUTROPHILS RELATIVE PERCENT (BEAKER) (test 83 % owtz=852) LYMPHOCYTES RELATIVE PERCENT (BEAKER) (test 5 % ovyi=214) MONOCYTES RELATIVE PERCENT (BEAKER) (test 12 % kjiy=525) EOSINOPHILS RELATIVE PERCENT (BEAKER) (test 0 % hrls=293) BASOPHILS RELATIVE PERCENT (BEAKER) (test 0 % pjjd=620) NEUTROPHILS ABSOLUTE COUNT (BEAKER) (test 16.30 K/ L 1.80-8.00 jpjw=717) LYMPHOCYTES ABSOLUTE COUNT (BEAKER) (test 0.89 K/ L 1.48-4.50 rbrz=665) MONOCYTES ABSOLUTE COUNT (BEAKER) (test 2.34 K/ L 0.00-1.30 gixc=738) EOSINOPHILS ABSOLUTE COUNT (BEAKER) (test 0.03 K/ L 0.00-0.50 hocl=879) BASOPHILS ABSOLUTE COUNT (BEAKER) (test 0.10 K/ L 0.00-0.20 ewyn=069) 0.00(MANUAL DIFFERENTIAL)2016-08-06 15:03:00 Test Item Value Reference Range Comments TOTAL COUNTED (BEAKER) (test cfvl=9493) WBC MORPHOLOGY (BEAKER) (test lmvn=545) Normal PLT MORPHOLOGY (BEAKER) (test yvlj=003) Normal RBC MORPHOLOGY (BEAKER) (test stdz=453) Normal COMPREHENSIVE METABOLIC [id number] 06:13:00 Test Item Value Reference Range Comments TOTAL PROTEIN (BEAKER) 5.8 gm/dL 6.0-8.3 (test udrr=334) ALBUMIN (BEAKER) (test 3.2 g/dL 3.5-5.0 idgx=2989) ALKALINE PHOSPHATASE 56 U/L 40-150 (BEAKER) (test bkgm=496) BILIRUBIN TOTAL (BEAKER) 0.3 mg/dL 0.2-1.2 (test nutf=154) SODIUM (BEAKER) (test 140 meq/L 136-145 ssny=536) POTASSIUM (BEAKER) (test 4.1 meq/L 3.5-5.1 dgmd=410) CHLORIDE (BEAKER) (test 104 meq/L 98-107 fkte=596) CO2 (BEAKER) (test 23 meq/L 22-29 czqf=320) BLOOD UREA NITROGEN 31 mg/dL 7-21 (BEAKER) (test hata=337) CREATININE (BEAKER) (test 5.11 mg/dL 0.57-1.25 cjvd=484) GLUCOSE RANDOM (BEAKER) 157 mg/dL 70-105 (test xepc=402) CALCIUM (BEAKER) (test 8.1 mg/dL 8.4-10.2 xbij=777) AST (SGOT) (BEAKER) (test 14 U/L 5-34 bang=196) ALT (SGPT) (BEAKER) (test 11 U/L 6-55 kmjf=562) EGFR (BEAKER) (test 14 mL/min/1.73 sq m ESTIMATED GFR IS NOT gavc=6843) ACCURATE CREATININE CLEARANCE IN PREDICTING GLOMERULAR FILTRATION RATE. ESTIMATED GFR IS NOT APPLICABLE FOR DIALYSIS PATIENTS. URIC [id number] 06:05:00 Test Item Value Reference Range Comments URIC ACID (BEAKER) (test lwmv=236) 5.3 mg/dL 2.6-7.2 [id number] 06:05:00 Test Item Value Reference Range Comments MAGNESIUM (BEAKER) (test yluj=936) 1.9 mg/dL 1.6-2.6 [id number] 06:05:00 Test Item Value Reference Range Comments PHOSPHORUS (BEAKER) (test sssh=164) 3.8 mg/dL 2.3-4.7 LACTATE DEHYDROGENASE (LDH)2016-08-06 06:05:00 Test Item Value Reference Range Comments LACTATE DEHYDROGENASE (BEAKER) (test dirw=709) 248 U/L 125-220 [id number] 06:51:00 Test Item Value Reference Range Comments PHOSPHORUS (BEAKER) (test ghtw=686) 3.5 mg/dL 2.3-4.7 [id number] 06:51:00 Test Item Value Reference Range Comments MAGNESIUM (BEAKER) (test ccyf=226) 1.9 mg/dL 1.6-2.6 BASIC METABOLIC [id number] 06:51:00 Test Item Value Reference Range Comments SODIUM (BEAKER) (test 137 meq/L 136-145 foap=922) POTASSIUM (BEAKER) (test 4.7 meq/L 3.5-5.1 ezof=248) CHLORIDE (BEAKER) (test 107 meq/L 98-107 yqib=375) CO2 (BEAKER) (test 18 meq/L 22-29 tuqg=302) BLOOD UREA NITROGEN 36 mg/dL 7-21 (BEAKER) (test anta=833) CREATININE (BEAKER) (test 6.91 mg/dL 0.57-1.25 tjqt=602) GLUCOSE RANDOM (BEAKER) 163 mg/dL 70-105 (test hfoo=005) CALCIUM (BEAKER) (test 8.3 mg/dL 8.4-10.2 blgp=766) EGFR (BEAKER) (test 10 mL/min/1.73 sq m ESTIMATED GFR IS NOT yksi=5487) ACCURATE CREATININE CLEARANCE IN PREDICTING GLOMERULAR FILTRATION RATE. ESTIMATED GFR IS NOT APPLICABLE FOR DIALYSIS PATIENTS. CBC W/PLT COUNT & AUTO [id number] 06:37:00 Test Item Value Reference Range Comments WHITE BLOOD CELL COUNT (BEAKER) (test hmmi=365) 15.9 K/ L 4.0-10.0 RED BLOOD CELL COUNT (BEAKER) (test jtyq=010) 2.89 M/ L 4.20-5.80 HEMOGLOBIN (BEAKER) (test rzeq=802) 9.1 GM/DL 13.0-16.8 HEMATOCRIT (BEAKER) (test fyou=752) 27.9 % 40.0-50.0 MEAN CORPUSCULAR VOLUME (BEAKER) (test qyxy=513) 96.5 fL 82.0-98.0 MEAN CORPUSCULAR HEMOGLOBIN (BEAKER) (test 31.5 pg 27.0-33.0 bpbc=575) MEAN CORPUSCULAR HEMOGLOBIN CONC (BEAKER) (test 32.6 GM/DL 32.0-36.0 okon=917) RED CELL DISTRIBUTION WIDTH (BEAKER) (test 16.8 % 10.3-14.2 ndxb=757) PLATELET COUNT (BEAKER) (test hosu=249) 279 K/CU MM 150-430 MEAN PLATELET VOLUME (BEAKER) (test wgoe=273) 8.3 fL 6.5-10.5 NUCLEATED RED BLOOD CELLS (BEAKER) (test 0 /100 WBC 0-0 szyz=838) NEUTROPHILS RELATIVE PERCENT (BEAKER) (test 93 % yrmv=142) LYMPHOCYTES RELATIVE PERCENT (BEAKER) (test 5 % bmph=958) MONOCYTES RELATIVE PERCENT (BEAKER) (test 1 % giwd=612) EOSINOPHILS RELATIVE PERCENT (BEAKER) (test 0 % rzwf=331) BASOPHILS RELATIVE PERCENT (BEAKER) (test 0 % eept=132) NEUTROPHILS ABSOLUTE COUNT (BEAKER) (test 14.70 K/ L 1.80-8.00 gjpl=165) LYMPHOCYTES ABSOLUTE COUNT (BEAKER) (test 0.78 K/ L 1.48-4.50 auag=819) MONOCYTES ABSOLUTE COUNT (BEAKER) (test 0.22 K/ L 0.00-1.30 aosq=449) EOSINOPHILS ABSOLUTE COUNT (BEAKER) (test 0.06 K/ L 0.00-0.50 wqit=413) BASOPHILS ABSOLUTE COUNT (BEAKER) (test 0.06 K/ L 0.00-0.20 blgj=020) 0.00BASIC METABOLIC [id number] 12:49:00 Test Item Value Reference Range Comments SODIUM (BEAKER) (test 140 meq/L 136-145 kpho=999) POTASSIUM (BEAKER) (test 4.0 meq/L 3.5-5.1 uhnz=027) CHLORIDE (BEAKER) (test 106 meq/L 98-107 vlho=409) CO2 (BEAKER) (test 23 meq/L 22-29 ovky=006) BLOOD UREA NITROGEN 27 mg/dL 7-21 (BEAKER) (test ztmc=596) CREATININE (BEAKER) (test 6.37 mg/dL 0.57-1.25 yzkw=061) GLUCOSE RANDOM (BEAKER) 88 mg/dL 70-105 (test ajeo=651) CALCIUM (BEAKER) (test 8.6 mg/dL 8.4-10.2 qenq=081) EGFR (BEAKER) (test 11 mL/min/1.73 sq m ESTIMATED GFR IS NOT sjwh=4604) ACCURATE CREATININE CLEARANCE IN PREDICTING GLOMERULAR FILTRATION RATE. ESTIMATED GFR IS NOT APPLICABLE FOR DIALYSIS PATIENTS. URIC [id number] 12:46:00 Test Item Value Reference Range Comments URIC ACID (BEAKER) (test uotq=549) 5.2 mg/dL 2.6-7.2 [id number] 12:46:00 Test Item Value Reference Range Comments MAGNESIUM (BEAKER) (test udxj=700) 2.1 mg/dL 1.6-2.6 [id number] 12:46:00 Test Item Value Reference Range Comments PHOSPHORUS (BEAKER) (test juwg=516) 3.8 mg/dL 2.3-4.7 HEPATIC FUNCTION [id number] 12:46:00 Test Item Value Reference Range Comments TOTAL PROTEIN (BEAKER) (test rqbq=450) 6.1 gm/dL 6.0-8.3 ALBUMIN (BEAKER) (test ejwm=4189) 3.4 g/dL 3.5-5.0 BILIRUBIN TOTAL (BEAKER) (test ewbn=618) 0.2 mg/dL 0.2-1.2 BILIRUBIN DIRECT (BEAKER) (test fkpv=511) 0.1 mg/dL 0.1-0.5 ALKALINE PHOSPHATASE (BEAKER) (test gnbf=701) 59 U/L 40-150 AST (SGOT) (BEAKER) (test kovp=521) 11 U/L 5-34 ALT (SGPT) (BEAKER) (test qaqd=988) 9 U/L 6-55 LACTATE DEHYDROGENASE (LDH)2016-08-04 12:46:00 Test Item Value Reference Range Comments LACTATE DEHYDROGENASE (BEAKER) (test fgjf=452) 231 U/L 125-220 CBC W/PLT COUNT & AUTO [id number] 12:27:00 Test Item Value Reference Range Comments WHITE BLOOD CELL COUNT (BEAKER) (test axiz=374) 13.8 K/ L 4.0-10.0 RED BLOOD CELL COUNT (BEAKER) (test nwcv=991) 2.53 M/ L 4.20-5.80 HEMOGLOBIN (BEAKER) (test mokw=078) 7.9 GM/DL 13.0-16.8 HEMATOCRIT (BEAKER) (test vbwh=745) 24.3 % 40.0-50.0 MEAN CORPUSCULAR VOLUME (BEAKER) (test njct=078) 96.1 fL 82.0-98.0 MEAN CORPUSCULAR HEMOGLOBIN (BEAKER) (test 31.0 pg 27.0-33.0 innx=409) MEAN CORPUSCULAR HEMOGLOBIN CONC (BEAKER) (test 32.3 GM/DL 32.0-36.0 grok=293) RED CELL DISTRIBUTION WIDTH (BEAKER) (test 17.4 % 10.3-14.2 krkh=554) PLATELET COUNT (BEAKER) (test outk=770) 265 K/CU MM 150-430 MEAN PLATELET VOLUME (BEAKER) (test sujd=680) 8.1 fL 6.5-10.5 NUCLEATED RED BLOOD CELLS (BEAKER) (test 0 /100 WBC 0-0 yfng=334) NEUTROPHILS RELATIVE PERCENT (BEAKER) (test 71 % kzjs=502) LYMPHOCYTES RELATIVE PERCENT (BEAKER) (test 10 % lyth=816) MONOCYTES RELATIVE PERCENT (BEAKER) (test 19 % kgiv=843) EOSINOPHILS RELATIVE PERCENT (BEAKER) (test 1 % djnm=808) BASOPHILS RELATIVE PERCENT (BEAKER) (test 0 % ypoq=376) NEUTROPHILS ABSOLUTE COUNT (BEAKER) (test 9.76 K/ L 1.80-8.00 vnhj=669) LYMPHOCYTES ABSOLUTE COUNT (BEAKER) (test 1.40 K/ L 1.48-4.50 qwtr=074) MONOCYTES ABSOLUTE COUNT (BEAKER) (test 2.56 K/ L 0.00-1.30 qgdv=923) EOSINOPHILS ABSOLUTE COUNT (BEAKER) (test 0.08 K/ L 0.00-0.50 ayza=801) BASOPHILS ABSOLUTE COUNT (BEAKER) (test 0.05 K/ L 0.00-0.20 tpcp=395) 0.00HEPATITIS B SURFACE [id number] 14:54:00 Test Item Value Reference Range Comments HEPATITIS B SURFACE ANTIGEN (2) (BEAKER) (test Nonreactive Nonreactive pmlu=6480) CBC W/PLT COUNT & AUTO [id number] 10:30:00 Test Item Value Reference Range Comments WHITE BLOOD CELL COUNT (BEAKER) (test xcty=167) 5.8 K/ L 4.0-10.0 RED BLOOD CELL COUNT (BEAKER) (test nqaj=861) 2.53 M/ L 4.20-5.80 HEMOGLOBIN (BEAKER) (test ybgi=952) 8.1 GM/DL 13.0-16.8 HEMATOCRIT (BEAKER) (test tjlc=563) 23.6 % 40.0-50.0 MEAN CORPUSCULAR VOLUME (BEAKER) (test daym=505) 93.0 fL 82.0-98.0 MEAN CORPUSCULAR HEMOGLOBIN (BEAKER) (test 32.1 pg 27.0-33.0 uykp=124) MEAN CORPUSCULAR HEMOGLOBIN CONC (BEAKER) (test 34.5 GM/DL 32.0-36.0 ekyc=183) RED CELL DISTRIBUTION WIDTH (BEAKER) (test 18.5 % 10.3-14.2 hksl=417) PLATELET COUNT (BEAKER) (test qngx=687) 259 K/CU MM 150-430 MEAN PLATELET VOLUME (BEAKER) (test vyaj=576) 8.7 fL 6.5-10.5 NUCLEATED RED BLOOD CELLS (BEAKER) (test 0 /100 WBC 0-0 ofoa=397) NEUTROPHILS RELATIVE PERCENT (BEAKER) (test 86 % opyw=451) LYMPHOCYTES RELATIVE PERCENT (BEAKER) (test 9 % xzyf=806) MONOCYTES RELATIVE PERCENT (BEAKER) (test 5 % sfbd=052) EOSINOPHILS RELATIVE PERCENT (BEAKER) (test 0 % xcro=536) BASOPHILS RELATIVE PERCENT (BEAKER) (test 0 % yuuh=445) NEUTROPHILS ABSOLUTE COUNT (BEAKER) (test 4.97 K/ L 1.80-8.00 ocxs=044) LYMPHOCYTES ABSOLUTE COUNT (BEAKER) (test 0.52 K/ L 1.48-4.50 pnwh=036) MONOCYTES ABSOLUTE COUNT (BEAKER) (test 0.28 K/ L 0.00-1.30 inho=107) EOSINOPHILS ABSOLUTE COUNT (BEAKER) (test 0.01 K/ L 0.00-0.50 jpyu=616) BASOPHILS ABSOLUTE COUNT (BEAKER) (test 0.00 K/ L 0.00-0.20 xzmf=869) 0.00(MANUAL DIFFERENTIAL)2016-07-19 10:30:00 Test Item Value Reference Range Comments TOTAL COUNTED (BEAKER) (test xupk=5769) WBC MORPHOLOGY (BEAKER) (test cmdd=906) Normal PLT MORPHOLOGY (BEAKER) (test zkzx=616) Normal POIKILOCYTES (BEAKER) (test imps=232) 1+ few TEAR DROP CELLS (BEAKER) (test czzw=083) 1+ few COMPREHENSIVE METABOLIC [id number] 06:29:00 Test Item Value Reference Range Comments TOTAL PROTEIN (BEAKER) 5.9 gm/dL 6.0-8.3 (test lqfp=145) ALBUMIN (BEAKER) (test 3.3 g/dL 3.5-5.0 hklq=6390) ALKALINE PHOSPHATASE 51 U/L 40-150 (BEAKER) (test uqhh=642) BILIRUBIN TOTAL (BEAKER) 0.2 mg/dL 0.2-1.2 (test xlpu=554) SODIUM (BEAKER) (test 138 meq/L 136-145 qebj=406) POTASSIUM (BEAKER) (test 4.4 meq/L 3.5-5.1 iohy=534) CHLORIDE (BEAKER) (test 105 meq/L 98-107 oaei=764) CO2 (BEAKER) (test 22 meq/L 22-29 mgiq=501) BLOOD UREA NITROGEN 65 mg/dL 7-21 (BEAKER) (test zsvh=540) CREATININE (BEAKER) (test 7.03 mg/dL 0.57-1.25 oqgr=305) GLUCOSE RANDOM (BEAKER) 150 mg/dL 70-105 (test jypy=499) CALCIUM (BEAKER) (test 8.3 mg/dL 8.4-10.2 ksvs=499) AST (SGOT) (BEAKER) (test 12 U/L 5-34 foro=129) ALT (SGPT) (BEAKER) (test 14 U/L 6-55 fizq=317) EGFR (BEAKER) (test 10 mL/min/1.73 sq m ESTIMATED GFR IS NOT rntm=1291) ACCURATE CREATININE CLEARANCE IN PREDICTING GLOMERULAR FILTRATION RATE. ESTIMATED GFR IS NOT APPLICABLE FOR DIALYSIS PATIENTS. LACTATE DEHYDROGENASE (LDH)2016-07-19 06:28:00 Test Item Value Reference Range Comments LACTATE DEHYDROGENASE (BEAKER) (test lyvn=988) 199 U/L 125-220 CBC W/PLT COUNT & AUTO [id number] 06:53:00 Test Item Value Reference Range Comments WHITE BLOOD CELL COUNT (BEAKER) (test vkjw=835) 10.9 K/ L 4.0-10.0 RED BLOOD CELL COUNT (BEAKER) (test mfvj=893) 2.66 M/ L 4.20-5.80 HEMOGLOBIN (BEAKER) (test kdry=574) 8.5 GM/DL 13.0-16.8 HEMATOCRIT (BEAKER) (test lete=357) 25.3 % 40.0-50.0 MEAN CORPUSCULAR VOLUME (BEAKER) (test qgcz=214) 95.2 fL 82.0-98.0 MEAN CORPUSCULAR HEMOGLOBIN (BEAKER) (test 31.7 pg 27.0-33.0 wyip=546) MEAN CORPUSCULAR HEMOGLOBIN CONC (BEAKER) (test 33.3 GM/DL 32.0-36.0 fqlc=238) RED CELL DISTRIBUTION WIDTH (BEAKER) (test 18.4 % 10.3-14.2 crwf=963) PLATELET COUNT (BEAKER) (test myap=297) 281 K/CU MM 150-430 MEAN PLATELET VOLUME (BEAKER) (test cskz=260) 8.6 fL 6.5-10.5 NUCLEATED RED BLOOD CELLS (BEAKER) (test 0 /100 WBC 0-0 nqrr=621) NEUTROPHILS RELATIVE PERCENT (BEAKER) (test 90 % uvkt=632) LYMPHOCYTES RELATIVE PERCENT (BEAKER) (test 4 % cejs=223) MONOCYTES RELATIVE PERCENT (BEAKER) (test 6 % strt=077) EOSINOPHILS RELATIVE PERCENT (BEAKER) (test 0 % ljuw=699) BASOPHILS RELATIVE PERCENT (BEAKER) (test 0 % dloh=233) NEUTROPHILS ABSOLUTE COUNT (BEAKER) (test 9.80 K/ L 1.80-8.00 zwzm=498) LYMPHOCYTES ABSOLUTE COUNT (BEAKER) (test 0.49 K/ L 1.48-4.50 zbzs=665) MONOCYTES ABSOLUTE COUNT (BEAKER) (test 0.65 K/ L 0.00-1.30 xosm=127) EOSINOPHILS ABSOLUTE COUNT (BEAKER) (test 0.01 K/ L 0.00-0.50 dpla=039) BASOPHILS ABSOLUTE COUNT (BEAKER) (test 0.00 K/ L 0.00-0.20 ypww=564) 0.00COMPREHENSIVE METABOLIC [id number] 06:47:00 Test Item Value Reference Range Comments TOTAL PROTEIN (BEAKER) 6.2 gm/dL 6.0-8.3 (test hfbm=593) ALBUMIN (BEAKER) (test 3.4 g/dL 3.5-5.0 vbwh=1304) ALKALINE PHOSPHATASE 56 U/L 40-150 (BEAKER) (test crii=930) BILIRUBIN TOTAL (BEAKER) 0.3 mg/dL 0.2-1.2 (test qvnw=984) SODIUM (BEAKER) (test 138 meq/L 136-145 boit=051) POTASSIUM (BEAKER) (test 4.3 meq/L 3.5-5.1 nvtx=306) CHLORIDE (BEAKER) (test 103 meq/L 98-107 rndy=048) CO2 (BEAKER) (test 21 meq/L 22-29 jrdx=578) BLOOD UREA NITROGEN 46 mg/dL 7-21 (BEAKER) (test kadp=261) CREATININE (BEAKER) (test 5.81 mg/dL 0.57-1.25 joah=669) GLUCOSE RANDOM (BEAKER) 161 mg/dL 70-105 (test qtlb=175) CALCIUM (BEAKER) (test 8.1 mg/dL 8.4-10.2 sztm=077) AST (SGOT) (BEAKER) (test 15 U/L 5-34 pwpj=382) ALT (SGPT) (BEAKER) (test 13 U/L 6-55 lgtk=915) EGFR (BEAKER) (test 12 mL/min/1.73 sq m ESTIMATED GFR IS NOT qdxp=4104) ACCURATE CREATININE CLEARANCE IN PREDICTING GLOMERULAR FILTRATION RATE. ESTIMATED GFR IS NOT APPLICABLE FOR DIALYSIS PATIENTS. LACTATE DEHYDROGENASE (LDH)2016-07-18 06:46:00 Test Item Value Reference Range Comments LACTATE DEHYDROGENASE (BEAKER) (test wmgm=506) 227 U/L 125-220 CBC W/PLT COUNT & AUTO [id number] 11:26:00 Test Item Value Reference Range Comments WHITE BLOOD CELL COUNT (BEAKER) (test cffe=959) 25.1 K/ L 4.0-10.0 RED BLOOD CELL COUNT (BEAKER) (test vsap=690) 2.82 M/ L 4.20-5.80 HEMOGLOBIN (BEAKER) (test ewmf=164) 8.4 GM/DL 13.0-16.8 HEMATOCRIT (BEAKER) (test ameb=543) 26.6 % 40.0-50.0 MEAN CORPUSCULAR VOLUME (BEAKER) (test seji=019) 94.1 fL 82.0-98.0 MEAN CORPUSCULAR HEMOGLOBIN (BEAKER) (test 29.9 pg 27.0-33.0 htzo=168) MEAN CORPUSCULAR HEMOGLOBIN CONC (BEAKER) (test 31.7 GM/DL 32.0-36.0 ynlc=864) RED CELL DISTRIBUTION WIDTH (BEAKER) (test 19.1 % 10.3-14.2 mxfc=850) PLATELET COUNT (BEAKER) (test dwja=451) 290 K/CU MM 150-430 MEAN PLATELET VOLUME (BEAKER) (test pjww=902) 8.7 fL 6.5-10.5 NUCLEATED RED BLOOD CELLS (BEAKER) (test 0 /100 WBC 0-0 amrn=739) NEUTROPHILS RELATIVE PERCENT (BEAKER) (test 91 % wisf=813) LYMPHOCYTES RELATIVE PERCENT (BEAKER) (test 3 % vmxv=819) MONOCYTES RELATIVE PERCENT (BEAKER) (test 6 % wzoi=844) EOSINOPHILS RELATIVE PERCENT (BEAKER) (test 1 % fpjw=839) BASOPHILS RELATIVE PERCENT (BEAKER) (test 0 % rikz=282) NEUTROPHILS ABSOLUTE COUNT (BEAKER) (test 22.70 K/ L 1.80-8.00 sokz=150) LYMPHOCYTES ABSOLUTE COUNT (BEAKER) (test 0.66 K/ L 1.48-4.50 qzsv=591) MONOCYTES ABSOLUTE COUNT (BEAKER) (test 1.52 K/ L 0.00-1.30 gicy=192) EOSINOPHILS ABSOLUTE COUNT (BEAKER) (test 0.15 K/ L 0.00-0.50 djyx=602) BASOPHILS ABSOLUTE COUNT (BEAKER) (test 0.01 K/ L 0.00-0.20 qmcf=554) 0.000.560.000.000.580.000.000.000.00(MANUAL DIFFERENTIAL)2016-07-17 11:26:00 Test Item Value Reference Range Comments TOTAL COUNTED (BEAKER) (test bdut=3867) WBC MORPHOLOGY (BEAKER) (test zrwz=468) Normal PLT MORPHOLOGY (BEAKER) (test ziqa=081) Normal RBC MORPHOLOGY (BEAKER) (test pphn=991) Normal BASIC METABOLIC [id number] 05:47:00 Test Item Value Reference Range Comments SODIUM (BEAKER) (test 136 meq/L 136-145 frcu=684) POTASSIUM (BEAKER) (test 4.9 meq/L 3.5-5.1 doku=514) CHLORIDE (BEAKER) (test 103 meq/L 98-107 digd=522) CO2 (BEAKER) (test 17 meq/L 22-29 elsb=919) BLOOD UREA NITROGEN 49 mg/dL 7-21 (BEAKER) (test fasu=146) CREATININE (BEAKER) (test 7.07 mg/dL 0.57-1.25 iixo=253) GLUCOSE RANDOM (BEAKER) 120 mg/dL 70-105 (test mvyu=735) CALCIUM (BEAKER) (test 8.4 mg/dL 8.4-10.2 ohox=533) EGFR (BEAKER) (test 10 mL/min/1.73 sq m ESTIMATED GFR IS NOT mmmf=0542) ACCURATE CREATININE CLEARANCE IN PREDICTING GLOMERULAR FILTRATION RATE. ESTIMATED GFR IS NOT APPLICABLE FOR DIALYSIS PATIENTS. URIC [id number] 05:44:00 Test Item Value Reference Range Comments URIC ACID (BEAKER) (test muzg=076) 9.4 mg/dL 2.6-7.2 [id number] 05:44:00 Test Item Value Reference Range Comments PHOSPHORUS (BEAKER) (test tofp=554) 5.1 mg/dL 2.3-4.7 HEPATIC FUNCTION [id number] 05:44:00 Test Item Value Reference Range Comments TOTAL PROTEIN (BEAKER) (test cghj=504) 6.4 gm/dL 6.0-8.3 ALBUMIN (BEAKER) (test lwdm=6151) 3.4 g/dL 3.5-5.0 BILIRUBIN TOTAL (BEAKER) (test fvxk=670) 0.3 mg/dL 0.2-1.2 BILIRUBIN DIRECT (BEAKER) (test bryv=012) 0.1 mg/dL 0.1-0.5 ALKALINE PHOSPHATASE (BEAKER) (test wfer=597) 62 U/L 40-150 AST (SGOT) (BEAKER) (test evns=150) 15 U/L 5-34 ALT (SGPT) (BEAKER) (test bxhz=659) 13 U/L 6-55 LACTATE DEHYDROGENASE (LDH)2016-07-17 05:44:00 Test Item Value Reference Range Comments LACTATE DEHYDROGENASE (BEAKER) (test ylch=922) 250 U/L 125-220 CBC W/PLT COUNT & AUTO [id number] 11:11:00 Test Item Value Reference Range Comments WHITE BLOOD CELL COUNT (BEAKER) (test idzm=843) 18.8 K/ L 4.0-10.0 RED BLOOD CELL COUNT (BEAKER) (test bxbi=968) 2.83 M/ L 4.20-5.80 HEMOGLOBIN (BEAKER) (test mjuv=185) 9.0 GM/DL 13.0-16.8 HEMATOCRIT (BEAKER) (test rsss=584) 27.2 % 40.0-50.0 MEAN CORPUSCULAR VOLUME (BEAKER) (test ouuk=539) 96.3 fL 82.0-98.0 MEAN CORPUSCULAR HEMOGLOBIN (BEAKER) (test 31.9 pg 27.0-33.0 nclg=948) MEAN CORPUSCULAR HEMOGLOBIN CONC (BEAKER) (test 33.1 GM/DL 32.0-36.0 dagk=381) RED CELL DISTRIBUTION WIDTH (BEAKER) (test 18.5 % 10.3-14.2 fnzj=565) PLATELET COUNT (BEAKER) (test yluz=959) 287 K/CU MM 150-430 MEAN PLATELET VOLUME (BEAKER) (test plbn=734) 8.7 fL 6.5-10.5 NUCLEATED RED BLOOD CELLS (BEAKER) (test 1 /100 WBC 0-0 jgov=951) NEUTROPHILS RELATIVE PERCENT (BEAKER) (test 93 % fugi=686) LYMPHOCYTES RELATIVE PERCENT (BEAKER) (test 4 % wcjw=912) MONOCYTES RELATIVE PERCENT (BEAKER) (test 2 % evjk=907) EOSINOPHILS RELATIVE PERCENT (BEAKER) (test 0 % yuvl=611) BASOPHILS RELATIVE PERCENT (BEAKER) (test 0 % wqol=342) NEUTROPHILS ABSOLUTE COUNT (BEAKER) (test 17.60 K/ L 1.80-8.00 tjcc=657) LYMPHOCYTES ABSOLUTE COUNT (BEAKER) (test 0.76 K/ L 1.48-4.50 kikw=241) MONOCYTES ABSOLUTE COUNT (BEAKER) (test 0.40 K/ L 0.00-1.30 gwww=498) EOSINOPHILS ABSOLUTE COUNT (BEAKER) (test 0.07 K/ L 0.00-0.50 iodv=162) BASOPHILS ABSOLUTE COUNT (BEAKER) (test 0.02 K/ L 0.00-0.20 vjch=576) 0.00(MANUAL DIFFERENTIAL)2016-07-16 11:11:00 Test Item Value Reference Range Comments TOTAL COUNTED (BEAKER) (test rkvb=9265) WBC MORPHOLOGY (BEAKER) (test lass=023) Normal PLT MORPHOLOGY (BEAKER) (test ecqd=182) Normal POLYCHROMATOPHILLIC RBCS(BEAKER) (test ssdg=064) 1+ few BASIC METABOLIC [id number] 07:05:00 Test Item Value Reference Range Comments SODIUM (BEAKER) (test 137 meq/L 136-145 gtmr=879) POTASSIUM (BEAKER) (test 4.4 meq/L 3.5-5.1 dena=712) CHLORIDE (BEAKER) (test 103 meq/L 98-107 csuh=495) CO2 (BEAKER) (test 21 meq/L 22-29 rgkc=324) BLOOD UREA NITROGEN 26 mg/dL 7-21 (BEAKER) (test smfm=504) CREATININE (BEAKER) (test 5.31 mg/dL 0.57-1.25 qbxb=420) GLUCOSE RANDOM (BEAKER) 157 mg/dL 70-105 (test mtlx=712) CALCIUM (BEAKER) (test 8.4 mg/dL 8.4-10.2 agcj=461) EGFR (BEAKER) (test 13 mL/min/1.73 sq m ESTIMATED GFR IS NOT jqgc=3928) ACCURATE CREATININE CLEARANCE IN PREDICTING GLOMERULAR FILTRATION RATE. ESTIMATED GFR IS NOT APPLICABLE FOR DIALYSIS PATIENTS. URIC [id number] 07:04:00 Test Item Value Reference Range Comments URIC ACID (BEAKER) (test idjy=586) 4.6 mg/dL 2.6-7.2 [id number] 07:04:00 Test Item Value Reference Range Comments PHOSPHORUS (BEAKER) (test lcig=952) 3.1 mg/dL 2.3-4.7 HEPATIC FUNCTION [id number] 07:04:00 Test Item Value Reference Range Comments TOTAL PROTEIN (BEAKER) (test lkee=059) 6.5 gm/dL 6.0-8.3 ALBUMIN (BEAKER) (test puah=9429) 3.5 g/dL 3.5-5.0 BILIRUBIN TOTAL (BEAKER) (test biuj=418) 0.3 mg/dL 0.2-1.2 BILIRUBIN DIRECT (BEAKER) (test xiqa=553) 0.2 mg/dL 0.1-0.5 ALKALINE PHOSPHATASE (BEAKER) (test edrr=417) 69 U/L 40-150 AST (SGOT) (BEAKER) (test royv=825) 16 U/L 5-34 ALT (SGPT) (BEAKER) (test tlaa=175) 14 U/L 6-55 LACTATE DEHYDROGENASE (LDH)2016-07-16 07:04:00 Test Item Value Reference Range Comments LACTATE DEHYDROGENASE (BEAKER) (test wcli=403) 318 U/L 125-220 CBC W/PLT COUNT & AUTO [id number] 06:57:00 Test Item Value Reference Range Comments WHITE BLOOD CELL COUNT (BEAKER) (test ceks=419) 15.4 K/ L 4.0-10.0 RED BLOOD CELL COUNT (BEAKER) (test gxqk=276) 2.72 M/ L 4.20-5.80 HEMOGLOBIN (BEAKER) (test hpmf=521) 8.4 GM/DL 13.0-16.8 HEMATOCRIT (BEAKER) (test dhcb=456) 26.3 % 40.0-50.0 MEAN CORPUSCULAR VOLUME (BEAKER) (test xnho=109) 96.4 fL 82.0-98.0 MEAN CORPUSCULAR HEMOGLOBIN (BEAKER) (test 30.9 pg 27.0-33.0 xomm=263) MEAN CORPUSCULAR HEMOGLOBIN CONC (BEAKER) (test 32.0 GM/DL 32.0-36.0 wnap=590) RED CELL DISTRIBUTION WIDTH (BEAKER) (test 18.7 % 10.3-14.2 vgfz=486) PLATELET COUNT (BEAKER) (test tclg=906) 280 K/CU MM 150-430 MEAN PLATELET VOLUME (BEAKER) (test nyfh=261) 8.5 fL 6.5-10.5 NUCLEATED RED BLOOD CELLS (BEAKER) (test 2 /100 WBC 0-0 puas=856) NEUTROPHILS RELATIVE PERCENT (BEAKER) (test 73 % kdui=744) LYMPHOCYTES RELATIVE PERCENT (BEAKER) (test 10 % nboi=741) MONOCYTES RELATIVE PERCENT (BEAKER) (test 16 % pgth=397) EOSINOPHILS RELATIVE PERCENT (BEAKER) (test 1 % bifa=349) BASOPHILS RELATIVE PERCENT (BEAKER) (test 0 % qaxi=164) NEUTROPHILS ABSOLUTE COUNT (BEAKER) (test 11.20 K/ L 1.80-8.00 ycmb=992) LYMPHOCYTES ABSOLUTE COUNT (BEAKER) (test 1.58 K/ L 1.48-4.50 ilqq=228) MONOCYTES ABSOLUTE COUNT (BEAKER) (test 2.45 K/ L 0.00-1.30 zndr=940) EOSINOPHILS ABSOLUTE COUNT (BEAKER) (test 0.12 K/ L 0.00-0.50 rafx=817) BASOPHILS ABSOLUTE COUNT (BEAKER) (test 0.06 K/ L 0.00-0.20 mttn=456) 0.00(MANUAL DIFFERENTIAL)2016-07-15 06:57:00 Test Item Value Reference Range Comments TOTAL COUNTED (BEAKER) (test tqcn=1439) BASIC METABOLIC [id number] 06:09:00 Test Item Value Reference Range Comments SODIUM (BEAKER) (test 140 meq/L 136-145 bscz=498) POTASSIUM (BEAKER) (test 4.3 meq/L 3.5-5.1 nxww=698) CHLORIDE (BEAKER) (test 109 meq/L 98-107 eats=223) CO2 (BEAKER) (test 19 meq/L 22-29 dvuw=303) BLOOD UREA NITROGEN 32 mg/dL 7-21 (BEAKER) (test vlzs=923) CREATININE (BEAKER) (test 7.12 mg/dL 0.57-1.25 tovf=035) GLUCOSE RANDOM (BEAKER) 92 mg/dL 70-105 (test dlji=138) CALCIUM (BEAKER) (test 8.5 mg/dL 8.4-10.2 mamv=104) EGFR (BEAKER) (test 10 mL/min/1.73 sq m ESTIMATED GFR IS NOT fiaz=8012) ACCURATE CREATININE CLEARANCE IN PREDICTING GLOMERULAR FILTRATION RATE. ESTIMATED GFR IS NOT APPLICABLE FOR DIALYSIS PATIENTS. URIC [id number] 06:05:00 Test Item Value Reference Range Comments URIC ACID (BEAKER) (test ojbf=428) 6.5 mg/dL 2.6-7.2 [id number] 06:05:00 Test Item Value Reference Range Comments PHOSPHORUS (BEAKER) (test bini=846) 5.0 mg/dL 2.3-4.7 HEPATIC FUNCTION [id number] 06:05:00 Test Item Value Reference Range Comments TOTAL PROTEIN (BEAKER) (test pkil=482) 6.2 gm/dL 6.0-8.3 ALBUMIN (BEAKER) (test pypq=9500) 3.4 g/dL 3.5-5.0 BILIRUBIN TOTAL (BEAKER) (test aqkl=186) 0.2 mg/dL 0.2-1.2 BILIRUBIN DIRECT (BEAKER) (test uxqa=986) 0.1 mg/dL 0.1-0.5 ALKALINE PHOSPHATASE (BEAKER) (test jibt=409) 65 U/L 40-150 AST (SGOT) (BEAKER) (test smhq=822) 18 U/L 5-34 ALT (SGPT) (BEAKER) (test ttqr=120) 16 U/L 6-55 LACTATE DEHYDROGENASE (LDH)2016-07-15 06:05:00 Test Item Value Reference Range Comments LACTATE DEHYDROGENASE (BEAKER) (test aoxe=031) 290 U/L 125-220 URINALYSIS W/ [id number] 22:18:00 Test Item Value Reference Range Comments COLOR (BEAKER) (test phba=727) Light Yellow CLARITY (BEAKER) (test sqip=722) Clear SPECIFIC GRAVITY UA (BEAKER) (test 1.004 1.001-1.035 qlxz=726) PH UA (BEAKER) (test quyj=002) 7.5 5.0-8.0 PROTEIN UA (BEAKER) (test cnbv=836) 30 mg/dL Negative GLUCOSE UA (BEAKER) (test ijaz=028) Negative Negative KETONES UA (BEAKER) (test bdgm=274) Negative Negative BILIRUBIN UA (BEAKER) (test gjqr=524) Negative Negative BLOOD UA (BEAKER) (test deak=870) Negative Negative NITRITE UA (BEAKER) (test ujci=774) Negative Negative LEUKOCYTE ESTERASE UA (BEAKER) (test Negative Negative kqtq=732) UROBILINOGEN UA (BEAKER) (test sxlh=528) 0.2 mg/dL 0.2-1.0 RBC UA (BEAKER) (test pqju=557) < /HPF WBC UA (BEAKER) (test usde=253) 2 /HPF SOURCE(BEAKER) (test kvkk=8827) Urine, Clean Catch CBC W/PLT COUNT & AUTO [id number] 20:30:00 Test Item Value Reference Range Comments WHITE BLOOD CELL COUNT (BEAKER) (test biiw=144) 15.1 K/ L 4.0-10.0 RED BLOOD CELL COUNT (BEAKER) (test phby=515) 2.72 M/ L 4.20-5.80 HEMOGLOBIN (BEAKER) (test qywp=222) 8.4 GM/DL 13.0-16.8 HEMATOCRIT (BEAKER) (test npfq=054) 25.6 % 40.0-50.0 MEAN CORPUSCULAR VOLUME (BEAKER) (test dwzc=770) 94.1 fL 82.0-98.0 MEAN CORPUSCULAR HEMOGLOBIN (BEAKER) (test 30.7 pg 27.0-33.0 obga=013) MEAN CORPUSCULAR HEMOGLOBIN CONC (BEAKER) (test 32.6 GM/DL 32.0-36.0 hxyn=268) RED CELL DISTRIBUTION WIDTH (BEAKER) (test 19.0 % 10.3-14.2 tvft=343) PLATELET COUNT (BEAKER) (test yvqb=117) 266 K/CU MM 150-430 MEAN PLATELET VOLUME (BEAKER) (test bmjg=827) 8.3 fL 6.5-10.5 NUCLEATED RED BLOOD CELLS (BEAKER) (test 2 /100 WBC 0-0 gwdu=213) NEUTROPHILS RELATIVE PERCENT (BEAKER) (test 68 % govh=468) LYMPHOCYTES RELATIVE PERCENT (BEAKER) (test 12 % qmer=850) MONOCYTES RELATIVE PERCENT (BEAKER) (test 17 % tflu=044) EOSINOPHILS RELATIVE PERCENT (BEAKER) (test 3 % lpdv=475) BASOPHILS RELATIVE PERCENT (BEAKER) (test 0 % nzue=518) NEUTROPHILS ABSOLUTE COUNT (BEAKER) (test 10.30 K/ L 1.80-8.00 sejf=696) LYMPHOCYTES ABSOLUTE COUNT (BEAKER) (test 1.74 K/ L 1.48-4.50 qntc=744) MONOCYTES ABSOLUTE COUNT (BEAKER) (test 2.63 K/ L 0.00-1.30 lske=064) EOSINOPHILS ABSOLUTE COUNT (BEAKER) (test 0.43 K/ L 0.00-0.50 izad=074) BASOPHILS ABSOLUTE COUNT (BEAKER) (test 0.05 K/ L 0.00-0.20 nftj=595) 0.00COMPREHENSIVE METABOLIC [id number] 20:25:00 Test Item Value Reference Range Comments TOTAL PROTEIN (BEAKER) 6.5 gm/dL 6.0-8.3 (test iaor=838) ALBUMIN (BEAKER) (test 3.6 g/dL 3.5-5.0 ofjo=8568) ALKALINE PHOSPHATASE 68 U/L 40-150 (BEAKER) (test txsl=123) BILIRUBIN TOTAL (BEAKER) 0.2 mg/dL 0.2-1.2 (test empj=219) SODIUM (BEAKER) (test 140 meq/L 136-145 dgxn=058) POTASSIUM (BEAKER) (test 3.8 meq/L 3.5-5.1 vpiu=390) CHLORIDE (BEAKER) (test 106 meq/L 98-107 vxxz=377) CO2 (BEAKER) (test 23 meq/L 22-29 tdad=939) BLOOD UREA NITROGEN 31 mg/dL 7-21 (BEAKER) (test ijfn=570) CREATININE (BEAKER) (test 6.77 mg/dL 0.57-1.25 hfim=124) GLUCOSE RANDOM (BEAKER) 117 mg/dL 70-105 (test deit=933) CALCIUM (BEAKER) (test 8.5 mg/dL 8.4-10.2 kuww=763) AST (SGOT) (BEAKER) (test 18 U/L 5-34 kjsk=758) ALT (SGPT) (BEAKER) (test 18 U/L 6-55 qzci=320) EGFR (BEAKER) (test 10 mL/min/1.73 sq m ESTIMATED GFR IS NOT xahi=4796) ACCURATE CREATININE CLEARANCE IN PREDICTING GLOMERULAR FILTRATION RATE. ESTIMATED GFR IS NOT APPLICABLE FOR DIALYSIS PATIENTS. URIC [id number] 20:24:00 Test Item Value Reference Range Comments URIC ACID (BEAKER) (test prja=094) 5.8 mg/dL 2.6-7.2 [id number] 20:24:00 Test Item Value Reference Range Comments PHOSPHORUS (BEAKER) (test vixg=386) 4.8 mg/dL 2.3-4.7 LACTATE DEHYDROGENASE (LDH)2016-07-14 20:24:00 Test Item Value Reference Range Comments LACTATE DEHYDROGENASE (BEAKER) (test gkhx=546) 245 U/L 125-220 PROTHROMBIN [id number] 20:12:00 Test Item Value Reference Range Comments PROTIME (BEAKER) (test xztt=430) 13.0 seconds 11.7-14.7 INR (BEAKER) (test nbyq=205) 1.0 <=5.9 RECOMMENDED COUMADIN/WARFARIN INR THERAPY RANGESSTANDARD DOSE: 2.0 - 3.0 Includes: PROPHYLAXIS forvenous thrombosis, systemic embolization; TREATMENT for venous thrombosis and/or pulmonary embolus.HIGH RISK: Target INR is 2.5-3.5 for patients with mechanical heart valves.[id number] 15:01:00 Test Item Value Reference Range Comments LAB AP CPT CODE (CHRISTIEAKER) (test gilo=5792) 85531 CBC W/PLT COUNT & AUTO [id number] 14:40:00 Test Item Value Reference Range Comments WHITE BLOOD CELL COUNT (BEAKER) (test krjd=895) 7.9 K/ L 4.0-10.0 RED BLOOD CELL COUNT (BEAKER) (test iodf=820) 2.63 M/ L 4.20-5.80 HEMOGLOBIN (BEAKER) (test pnes=211) 8.2 GM/DL 13.0-16.8 HEMATOCRIT (BEAKER) (test qkap=753) 24.6 % 40.0-50.0 MEAN CORPUSCULAR VOLUME (BEAKER) (test apzq=710) 93.6 fL 82.0-98.0 MEAN CORPUSCULAR HEMOGLOBIN (BEAKER) (test 31.1 pg 27.0-33.0 sxpn=038) MEAN CORPUSCULAR HEMOGLOBIN CONC (BEAKER) (test 33.2 GM/DL 32.0-36.0 rcja=135) RED CELL DISTRIBUTION WIDTH (BEAKER) (test 18.0 % 10.3-14.2 asuz=792) PLATELET COUNT (BEAKER) (test zzvx=874) 237 K/CU MM 150-430 MEAN PLATELET VOLUME (BEAKER) (test uais=728) 8.6 fL 6.5-10.5 NUCLEATED RED BLOOD CELLS (BEAKER) (test 0 /100 WBC 0-0 bjov=901) NEUTROPHILS RELATIVE PERCENT (BEAKER) (test 88 % jyjc=798) LYMPHOCYTES RELATIVE PERCENT (BEAKER) (test 5 % isli=250) MONOCYTES RELATIVE PERCENT (BEAKER) (test 6 % qcjg=820) EOSINOPHILS RELATIVE PERCENT (BEAKER) (test 0 % bdwc=402) BASOPHILS RELATIVE PERCENT (BEAKER) (test 0 % ffbl=027) NEUTROPHILS ABSOLUTE COUNT (BEAKER) (test 6.95 K/ L 1.80-8.00 nyfp=078) LYMPHOCYTES ABSOLUTE COUNT (BEAKER) (test 0.41 K/ L 1.48-4.50 laan=604) MONOCYTES ABSOLUTE COUNT (BEAKER) (test 0.47 K/ L 0.00-1.30 vojv=436) EOSINOPHILS ABSOLUTE COUNT (BEAKER) (test 0.02 K/ L 0.00-0.50 dudc=629) BASOPHILS ABSOLUTE COUNT (BEAKER) (test 0.03 K/ L 0.00-0.20 mgfh=828) 0.00(MANUAL DIFFERENTIAL)2016-06-26 14:40:00 Test Item Value Reference Range Comments TOTAL COUNTED (BEAKER) (test azlm=0809) WBC MORPHOLOGY (BEAKER) (test jgvm=034) Normal PLT MORPHOLOGY (BEAKER) (test qebj=738) Normal RBC MORPHOLOGY (BEAKER) (test feez=870) Normal BASIC METABOLIC [id number] 07:34:00 Test Item Value Reference Range Comments SODIUM (BEAKER) (test 137 meq/L 136-145 zimy=950) POTASSIUM (BEAKER) (test 4.6 meq/L 3.5-5.1 ycwy=804) CHLORIDE (BEAKER) (test 104 meq/L 98-107 jmhx=993) CO2 (BEAKER) (test 20 meq/L 22-29 jmyg=533) BLOOD UREA NITROGEN 49 mg/dL 7-21 (BEAKER) (test cedj=244) CREATININE (BEAKER) (test 6.45 mg/dL 0.57-1.25 sxgc=146) GLUCOSE RANDOM (BEAKER) 122 mg/dL 70-105 (test jcrx=197) CALCIUM (BEAKER) (test 8.2 mg/dL 8.4-10.2 vnwh=261) EGFR (BEAKER) (test 11 mL/min/1.73 sq m ESTIMATED GFR IS NOT bhhi=3103) ACCURATE CREATININE CLEARANCE IN PREDICTING GLOMERULAR FILTRATION RATE. ESTIMATED GFR IS NOT APPLICABLE FOR DIALYSIS PATIENTS. [id number] 07:26:00 Test Item Value Reference Range Comments PHOSPHORUS (BEAKER) (test xduk=021) 5.0 mg/dL 2.3-4.7 [id number] 07:26:00 Test Item Value Reference Range Comments MAGNESIUM (BEAKER) (test wrrk=179) 2.0 mg/dL 1.6-2.6 HEPATIC FUNCTION [id number] 07:26:00 Test Item Value Reference Range Comments TOTAL PROTEIN (BEAKER) (test ohnu=237) 5.9 gm/dL 6.0-8.3 ALBUMIN (BEAKER) (test tqyu=2197) 3.3 g/dL 3.5-5.0 BILIRUBIN TOTAL (BEAKER) (test dwwf=009) 0.4 mg/dL 0.2-1.2 BILIRUBIN DIRECT (BEAKER) (test nicd=160) 0.1 mg/dL 0.1-0.5 ALKALINE PHOSPHATASE (BEAKER) (test dtxl=317) 40 U/L 40-150 AST (SGOT) (BEAKER) (test xhuv=053) 15 U/L 5-34 ALT (SGPT) (BEAKER) (test cezz=906) 14 U/L 6-55 FLOW CYTOMETRY [id number] 11:51:00 Test Item Value Reference Range Comments FLOW CYTOMETRY RESULT POINTER (EDENILSON) See Separate Report (test cvff=1525) FLOW CYTOMETRY AP CASE # (EDENILSON) (test [id number] eaxp=8593) HEPATITIS B SURFACE [id number] 09:53:00 Test Item Value Reference Range Comments HEPATITIS B SURFACE ANTIGEN (2) (BEAKER) (test Nonreactive Nonreactive dytt=2199) FLOW [id number] 09:46:00 Test Item Value Reference Range Comments LAB AP CPT CODE (EDENILSON) (test tbpb=9732) 30[address] BASIC METABOLIC [id number] 06:27:00 Test Item Value Reference Range Comments SODIUM (BEAKER) (test 138 meq/L 136-145 nefh=299) POTASSIUM (BEAKER) (test 5.4 meq/L 3.5-5.1 iozl=256) CHLORIDE (BEAKER) (test 108 meq/L 98-107 ctka=001) CO2 (BEAKER) (test 17 meq/L 22-29 lfou=457) BLOOD UREA NITROGEN 50 mg/dL 7-21 (BEAKER) (test kkou=725) CREATININE (BEAKER) (test 7.33 mg/dL 0.57-1.25 qsrw=645) GLUCOSE RANDOM (BEAKER) 130 mg/dL 70-105 (test ydon=325) CALCIUM (BEAKER) (test 8.5 mg/dL 8.4-10.2 dukr=759) EGFR (BEAKER) (test 9 mL/min/1.73 sq m ESTIMATED GFR IS NOT cpgv=4551) ACCURATE CREATININE CLEARANCE IN PREDICTING GLOMERULAR FILTRATION RATE. ESTIMATED GFR IS NOT APPLICABLE FOR DIALYSIS PATIENTS. [id number] 06:26:00 Test Item Value Reference Range Comments PHOSPHORUS (BEAKER) (test easq=526) 3.3 mg/dL 2.3-4.7 [id number] 06:26:00 Test Item Value Reference Range Comments MAGNESIUM (BEAKER) (test axut=854) 1.9 mg/dL 1.6-2.6 HEPATIC FUNCTION [id number] 06:26:00 Test Item Value Reference Range Comments TOTAL PROTEIN (BEAKER) (test fqcu=864) 5.9 gm/dL 6.0-8.3 ALBUMIN (BEAKER) (test qbpc=8140) 3.2 g/dL 3.5-5.0 BILIRUBIN TOTAL (BEAKER) (test lisj=570) 0.4 mg/dL 0.2-1.2 BILIRUBIN DIRECT (BEAKER) (test oetm=143) 0.1 mg/dL 0.1-0.5 ALKALINE PHOSPHATASE (BEAKER) (test zrxs=063) 41 U/L 40-150 AST (SGOT) (BEAKER) (test ufps=640) 19 U/L 5-34 ALT (SGPT) (BEAKER) (test jxbc=719) 15 U/L 6-55 CBC W/PLT COUNT & AUTO [id number] 06:10:00 Test Item Value Reference Range Comments WHITE BLOOD CELL COUNT (BEAKER) (test wacu=723) 6.7 K/ L 4.0-10.0 RED BLOOD CELL COUNT (BEAKER) (test mavt=675) 2.87 M/ L 4.20-5.80 HEMOGLOBIN (BEAKER) (test ehjn=892) 8.6 GM/DL 13.0-16.8 HEMATOCRIT (BEAKER) (test wszf=368) 26.4 % 40.0-50.0 MEAN CORPUSCULAR VOLUME (BEAKER) (test nlrk=612) 92.0 fL 82.0-98.0 MEAN CORPUSCULAR HEMOGLOBIN (BEAKER) (test 29.9 pg 27.0-33.0 wykg=512) MEAN CORPUSCULAR HEMOGLOBIN CONC (BEAKER) (test 32.5 GM/DL 32.0-36.0 ywha=265) RED CELL DISTRIBUTION WIDTH (BEAKER) (test 18.4 % 10.3-14.2 dbqq=877) PLATELET COUNT (BEAKER) (test quka=061) 259 K/CU MM 150-430 MEAN PLATELET VOLUME (BEAKER) (test zddp=077) 8.5 fL 6.5-10.5 NUCLEATED RED BLOOD CELLS (BEAKER) (test 0 /100 WBC 0-0 ypvd=495) NEUTROPHILS RELATIVE PERCENT (BEAKER) (test 91 % dowf=048) LYMPHOCYTES RELATIVE PERCENT (BEAKER) (test 7 % qzog=341) MONOCYTES RELATIVE PERCENT (BEAKER) (test 2 % rxxi=485) EOSINOPHILS RELATIVE PERCENT (BEAKER) (test 0 % aqgr=735) BASOPHILS RELATIVE PERCENT (BEAKER) (test 0 % kodg=995) NEUTROPHILS ABSOLUTE COUNT (BEAKER) (test 6.10 K/ L 1.80-8.00 rqni=927) LYMPHOCYTES ABSOLUTE COUNT (BEAKER) (test 0.49 K/ L 1.48-4.50 sczj=455) MONOCYTES ABSOLUTE COUNT (BEAKER) (test 0.11 K/ L 0.00-1.30 eaar=690) EOSINOPHILS ABSOLUTE COUNT (BEAKER) (test 0.00 K/ L 0.00-0.50 pewx=854) BASOPHILS ABSOLUTE COUNT (BEAKER) (test 0.00 K/ L 0.00-0.20 aqcx=974) 0.00CSF CELL COUNT [id number] 16:38:00 Test Item Value Reference Range Comments APPEARANCE CSF (BEAKER) (test apul=007) Clear Clear COLOR CSF (BEAKER) (test impk=443) Colorless Colorless RBC CSF (BEAKER) (test ztgv=611) 1 /cu mm 0-5 WBC CSF (BEAKER) (test uwyz=5508) 0 /cu mm <=5 RBCS FRESH (BEAKER) (test gkay=2936) 100% Fresh NUMBER OF CELLS DIFF'D (BEAKER) (test yncl=3594) 0 TUBE NUMBER CSF (BEAKER) (test dzuj=7956) 1 CBC W/PLT COUNT & AUTO [id number] 06:59:00 Test Item Value Reference Range Comments WHITE BLOOD CELL COUNT (BEAKER) (test gqro=716) 6.5 K/ L 4.0-10.0 RED BLOOD CELL COUNT (BEAKER) (test wlkv=627) 2.67 M/ L 4.20-5.80 HEMOGLOBIN (BEAKER) (test axdy=545) 8.1 GM/DL 13.0-16.8 HEMATOCRIT (BEAKER) (test qgwc=333) 25.3 % 40.0-50.0 MEAN CORPUSCULAR VOLUME (BEAKER) (test qqqs=942) 94.7 fL 82.0-98.0 MEAN CORPUSCULAR HEMOGLOBIN (BEAKER) (test 30.2 pg 27.0-33.0 vwti=324) MEAN CORPUSCULAR HEMOGLOBIN CONC (BEAKER) (test 31.9 GM/DL 32.0-36.0 iyre=276) RED CELL DISTRIBUTION WIDTH (BEAKER) (test 18.1 % 10.3-14.2 oide=401) PLATELET COUNT (BEAKER) (test zrtw=778) 230 K/CU MM 150-430 MEAN PLATELET VOLUME (BEAKER) (test dvgt=579) 8.7 fL 6.5-10.5 NUCLEATED RED BLOOD CELLS (BEAKER) (test 0 /100 WBC 0-0 yfsz=298) NEUTROPHILS RELATIVE PERCENT (BEAKER) (test 53 % bpoh=820) LYMPHOCYTES RELATIVE PERCENT (BEAKER) (test 20 % gaoe=525) MONOCYTES RELATIVE PERCENT (BEAKER) (test 21 % ouzv=175) EOSINOPHILS RELATIVE PERCENT (BEAKER) (test 5 % bvys=446) BASOPHILS RELATIVE PERCENT (BEAKER) (test 2 % ltdi=850) NEUTROPHILS ABSOLUTE COUNT (BEAKER) (test 3.46 K/ L 1.80-8.00 ogyn=110) LYMPHOCYTES ABSOLUTE COUNT (BEAKER) (test 1.29 K/ L 1.48-4.50 saet=512) MONOCYTES ABSOLUTE COUNT (BEAKER) (test 1.35 K/ L 0.00-1.30 ynjk=036) EOSINOPHILS ABSOLUTE COUNT (BEAKER) (test 0.34 K/ L 0.00-0.50 hdvy=174) BASOPHILS ABSOLUTE COUNT (BEAKER) (test 0.11 K/ L 0.00-0.20 ktmo=146) 0.00BASI METABOLIC [id number] 06:18:00 Test Item Value Reference Range Comments SODIUM (BEAKER) (test 141 meq/L 136-145 lmim=240) POTASSIUM (BEAKER) (test 4.0 meq/L 3.5-5.1 ppvy=856) CHLORIDE (BEAKER) (test 109 meq/L 98-107 jkkp=665) CO2 (BEAKER) (test 21 meq/L 22-29 jxoc=773) BLOOD UREA NITROGEN 39 mg/dL 7-21 (BEAKER) (test tlxm=798) CREATININE (BEAKER) (test 6.78 mg/dL 0.57-1.25 aklw=079) GLUCOSE RANDOM (BEAKER) 84 mg/dL 70-105 (test rylc=391) CALCIUM (BEAKER) (test 8.4 mg/dL 8.4-10.2 vcjh=784) EGFR (BEAKER) (test 10 mL/min/1.73 sq m ESTIMATED GFR IS NOT ibvm=7554) ACCURATE CREATININE CLEARANCE IN PREDICTING GLOMERULAR FILTRATION RATE. ESTIMATED GFR IS NOT APPLICABLE FOR DIALYSIS PATIENTS. [id number] 06:17:00 Test Item Value Reference Range Comments PHOSPHORUS (BEAKER) (test nlld=981) 4.9 mg/dL 2.3-4.7 [id number] 06:17:00 Test Item Value Reference Range Comments MAGNESIUM (BEAKER) (test mnvk=110) 1.8 mg/dL 1.6-2.6 HEPATIC FUNCTION [id number] 06:17:00 Test Item Value Reference Range Comments TOTAL PROTEIN (BEAKER) (test qrdj=487) 5.7 gm/dL 6.0-8.3 ALBUMIN (BEAKER) (test hhkk=9026) 3.2 g/dL 3.5-5.0 BILIRUBIN TOTAL (BEAKER) (test yjam=070) 0.3 mg/dL 0.2-1.2 BILIRUBIN DIRECT (BEAKER) (test ockd=551) 0.1 mg/dL 0.1-0.5 ALKALINE PHOSPHATASE (BEAKER) (test nxne=050) 42 U/L 40-150 AST (SGOT) (BEAKER) (test hmcn=787) 17 U/L 5-34 ALT (SGPT) (BEAKER) (test bomr=844) 13 U/L 6-55 COMPREHENSIVE METABOLIC [id number] 21:37:00 Test Item Value Reference Range Comments TOTAL PROTEIN (BEAKER) 5.9 gm/dL 6.0-8.3 (test utsq=511) ALBUMIN (BEAKER) (test 3.3 g/dL 3.5-5.0 kseq=9299) ALKALINE PHOSPHATASE 44 U/L 40-150 (BEAKER) (test upig=161) BILIRUBIN TOTAL (BEAKER) 0.3 mg/dL 0.2-1.2 (test ewec=906) SODIUM (BEAKER) (test 141 meq/L 136-145 viaa=974) POTASSIUM (BEAKER) (test 3.8 meq/L 3.5-5.1 pwev=867) CHLORIDE (BEAKER) (test 106 meq/L 98-107 akgj=278) CO2 (BEAKER) (test 23 meq/L 22-29 tpiw=944) BLOOD UREA NITROGEN 39 mg/dL 7-21 (BEAKER) (test sdae=513) CREATININE (BEAKER) (test 6.56 mg/dL 0.57-1.25 sokk=550) GLUCOSE RANDOM (BEAKER) 103 mg/dL 70-105 (test oqdw=498) CALCIUM (BEAKER) (test 8.5 mg/dL 8.4-10.2 rsxb=636) AST (SGOT) (BEAKER) (test 17 U/L 5-34 igtk=729) ALT (SGPT) (BEAKER) (test 13 U/L 6-55 qino=634) EGFR (BEAKER) (test 11 mL/min/1.73 sq m ESTIMATED GFR IS NOT nlsf=2779) ACCURATE CREATININE CLEARANCE IN PREDICTING GLOMERULAR FILTRATION RATE. ESTIMATED GFR IS NOT APPLICABLE FOR DIALYSIS PATIENTS. URIC [id number] 21:36:00 Test Item Value Reference Range Comments URIC ACID (BEAKER) (test dtlo=503) 4.9 mg/dL 2.6-7.2 LACTATE DEHYDROGENASE (LDH)2016-06-23 21:36:00 Test Item Value Reference Range Comments LACTATE DEHYDROGENASE (BEAKER) (test afrf=365) 223 U/L 125-220 PROTHROMBIN [id number] 21:23:00 Test Item Value Reference Range Comments PROTIME (BEAKER) (test spof=735) 13.2 seconds 11.7-14.7 INR (BEAKER) (test cpwu=021) 1.0 <=5.9 RECOMMENDED COUMADIN/WARFARIN INR THERAPY RANGESSTANDARD DOSE: 2.0 - 3.0 Includes: PROPHYLAXIS forvenous thrombosis, systemic embolization; TREATMENT for venous thrombosis and/or pulmonary embolus.HIGH RISK: Target INR is 2.5-3.5 for patients with mechanical heart valves.CBC W/PLT COUNT & AUTO [id number] 21:18:00 Test Item Value Reference Range Comments WHITE BLOOD CELL COUNT (BEAKER) (test rrvt=496) 6.6 K/ L 4.0-10.0 RED BLOOD CELL COUNT (BEAKER) (test tupd=600) 2.54 M/ L 4.20-5.80 HEMOGLOBIN (BEAKER) (test qgde=982) 7.8 GM/DL 13.0-16.8 HEMATOCRIT (BEAKER) (test pzxp=084) 23.9 % 40.0-50.0 MEAN CORPUSCULAR VOLUME (BEAKER) (test tqiu=630) 94.4 fL 82.0-98.0 MEAN CORPUSCULAR HEMOGLOBIN (BEAKER) (test 30.8 pg 27.0-33.0 eeks=118) MEAN CORPUSCULAR HEMOGLOBIN CONC (BEAKER) (test 32.7 GM/DL 32.0-36.0 naxu=956) RED CELL DISTRIBUTION WIDTH (BEAKER) (test 18.1 % 10.3-14.2 qrbk=158) PLATELET COUNT (BEAKER) (test lgnl=965) 219 K/CU MM 150-430 MEAN PLATELET VOLUME (BEAKER) (test mlgk=896) 8.1 fL 6.5-10.5 NUCLEATED RED BLOOD CELLS (BEAKER) (test 0 /100 WBC 0-0 hnal=562) NEUTROPHILS RELATIVE PERCENT (BEAKER) (test 50 % vget=868) LYMPHOCYTES RELATIVE PERCENT (BEAKER) (test 22 % lfxz=698) MONOCYTES RELATIVE PERCENT (BEAKER) (test 22 % xkta=805) EOSINOPHILS RELATIVE PERCENT (BEAKER) (test 5 % pgnz=506) BASOPHILS RELATIVE PERCENT (BEAKER) (test 1 % jkyn=533) NEUTROPHILS ABSOLUTE COUNT (BEAKER) (test 3.32 K/ L 1.80-8.00 irum=968) LYMPHOCYTES ABSOLUTE COUNT (BEAKER) (test 1.44 K/ L 1.48-4.50 njyn=555) MONOCYTES ABSOLUTE COUNT (BEAKER) (test 1.44 K/ L 0.00-1.30 qbbs=429) EOSINOPHILS ABSOLUTE COUNT (BEAKER) (test 0.32 K/ L 0.00-0.50 zbep=359) BASOPHILS ABSOLUTE COUNT (BEAKER) (test 0.09 K/ L 0.00-0.20 rmbk=365) 0.00
[2018-01-03 13:05] LABS: Absolute Lymphocytes (CBC) 0.2 K/uL (0.7-4.9); Absolute Monocytes 0.2 K/uL (0.1-1.3); Absolute Neutrophil 10.2 K/uL (1.8-8.0); Basophils % 0.3 % (0-1.3); Eosinophils % 0.2 % (0-4.4); Hematocrit 40.7 % (39.6-49.0); Lymphocytes % 1.8 % (15.3-44.8); MCH 28.5 pg (27.0-35.0); MCV 86.3 fL (80-100); MPV 9.4 fL (7.6-11.3); Monocytes % 1.5 % (3.3-12.3); RBC Red Blood Cell Count 4.71 M/uL (4.33-5.43)
--- NOTE | 2018-01-03 13:10 | RAD REPORT ---
EXAM DESCRIPTION: RAD - Chest Single View - 01/03/2018 12:58 pm CLINICAL HISTORY: dialysis Chest pain. COMPARISON: Chest Single View dated 02/24/2017; Chest Single View dated 01/24/2017; Chest Pa And Lat (2 Views) dated 01/21/2017; Chest Single View dated 01/20/2017 FINDINGS: Portable technique limits examination quality. Linear atelectasis is present in both lung bases. The heart is mildly prominent in size with right-si ded venous catheter tip in SVC. No displaced fractures.
[2018-01-03 13:19] LABS: Protime INR 1.13
[2018-01-03 13:30] LABS: ALT/SGPT 54 U/L (12-78); AST/SGOT 66 U/L (15-37); Alkaline Phosphatase 48 U/L (45-117); BUN Blood Urea Nitrogen 69 mg/dL (7-18); Bicarbonate 23 mmol/L (21-32); Bilirubin Direct < 0.1 mg/dL (0-0.2); Bilirubin Total 0.4 mg/dL (0.2-1.0); CKMB Creatine Kinase MB < 1.0 ng/mL (0.3-3.6); Creatine Phosphokinase 94 U/L (39-308); Glucose Level 107 mg/dL (74-106); Magnesium 2.4 mg/dL (1.8-2.4); NT PRO-BNP 3393 pg/mL (<125); Potassium 4.4 mmol/L (3.5-5.1); Protein, Total 7.8 g/dL (6.4-8.2); Sodium Level 135 mmol/L (136-145)
[2018-01-03] MEDS ORDERED: VANCOMYCIN 1 GM/250 ML BAG ONE (13:32)
[2018-01-03] MEDS ORDERED: CEFEPIME 1 GM/100 ML BAG IV ONE (13:33)
--- NOTE | 2018-01-03 13:33 | EDPHYS ---
Physician Documentation [facility] Name: Naldo Alejandre Age: 62 yrs Sex: Male : 1955 Arrival Date: 01/03/2018 Time: 12:25 Bed 13 Private MD: ED Physician Aditya Sharp HPI: 01/03 13:25 This 62 yrs old Black Male presents to ER via EMS with complaints of tremors, Breathing renae Difficulty. 13:25 The patient has shortness of breath at rest, with light activity. Onset: The renae symptoms/episode began/occurred 2 day(s) ago. Duration: The symptoms are continuous, and are steadily getting worse. The patient's shortness of breath has no apparent modifying factors. Associated signs and symptoms: Pertinent positives: non-productive cough, fever. Severity of symptoms: At their worst the symptoms were moderate in the emergency department the symptoms have improved mildly. The patient has not experienced similar symptoms in the past. Historical: - Allergies: 12:31 No Known Allergies; hj - Home Meds: 12:31 amitriptyline 25 mg Oral tab 1 tab once daily [Active]; Tums 200 mg calcium (500 mg) hj Oral chew daily [Active]; lisinopril 5 mg Oral tab 1 tab once daily [Active]; - PMHx: 12:31 Dialysis T-Th-Sat; ESRD; Hyperlipidemia; Hypertension; kidney disease; LYMPHOMA; hj - PSHx: 12:31 hip sx; right chest wall jasvir; hj - Immunization history:: Adult Immunizations up to date. - Social history:: Smoking status: Patient/guardian denies using tobacco, Patient/guardian denies using alcohol. - Ebola Screening: : Patient negative for fever greater than or equal to 101.5 degrees Fahrenheit, and additional compatible Ebola Virus Disease symptoms Patient denies exposure to infectious person Patient denies travel to an Ebola-affected area in the 21 days before illness onset. ROS: 13:25 Eyes: Negative for injury, pain, redness, and discharge, ENT: Negative for injury, renae pain, and discharge, Neck: Negative for injury, pain, and swelling, Respiratory: Negative for shortness of breath, cough, wheezing, and pleuritic chest pain, Abdomen/GI: Negative for abdominal pain, nausea, vomiting, diarrhea, and constipation, Back: Negative for injury and pain, : Negative for injury, bleeding, discharge, and swelling, MS/Extremity: Negative for injury and deformity, Neuro: Negative for headache, weakness, numbness, tingling, and seizure, Psych: Negative for depression, anxiety, suicide ideation, homicidal ideation, and hallucinations, Allergy/Immunology: Negative for hives, rash, and allergies, Endocrine: Negative for neck swelling, polydipsia, polyuria, polyphagia, and marked weight changes. 13:25 Constitutional: Positive for body aches, chills, malaise, poor PO intake. 13:25 Cardiovascular: Positive for palpitations. 13:25 Respiratory: Positive for cough, shortness of breath. 13:25 Skin: Positive for swelling, of the right supraclavicular area, right clavicle and anterior aspect of right upper chest. Exam: 13:25 Constitutional: This is a well developed, well nourished patient who is awake, alert, renae and in no acute distress. Head/Face: Normocephalic, atraumatic. Eyes: Pupils equal round and reactive to light, extra-ocular motions intact. Lids and lashes normal. Conjunctiva and sclera are non-icteric and not injected. Cornea within normal limits. Periorbital areas with no swelling, redness, or edema. ENT: Nares patent. No nasal discharge, no septal abnormalities noted. Tympanic membranes are normal and external auditory canals are clear. Oropharynx with no redness, swelling, or masses, exudates, or evidence of obstruction, uvula midline. Mucous membranes moist. Neck: Trachea midline, no thyromegaly or masses palpated, and no cervical lymphadenopathy. Supple, full range of motion without nuchal rigidity, or vertebral point tenderness. No Meningismus. Cardiovascular: Regular rate and rhythm with a normal S1 and S2. No gallops, murmurs, or rubs. Normal PMI, no JVD. No pulse deficits. Abdomen/GI: Soft, non-tender, with normal bowel sounds. No distension or tympany. No guarding or rebound. No evidence of tenderness throughout. Back: No spinal tenderness. No costovertebral tenderness. Full range of motion. Male : Normal genitalia with no discharge or lesions. MS/ Extremity: Pulses equal, no cyanosis. Neurovascular intact. Full, normal range of motion. Neuro: Awake and alert, GCS 15, oriented to person, place, time, and situation. Cranial nerves II-XII grossly intact. Motor strength 5/5 in all extremities. Sensory grossly intact. Cerebellar exam normal. Normal gait. Psych: Awake, alert, with orientation to person, place and time. Behavior, mood, and affect are within normal limits. 13:25 Chest/axilla: Inspection: normal, Palpation: tenderness, that is mild, of the right supraclavicular area, right clavicle and anterior aspect of right upper chest, Axilla: are normal, Lymph nodes: lymphadenopathy is not appreciated. 13:25 Cardiovascular: Rate: tachycardic, Rhythm: regular, Pulses: Pulses are 4+ in bilateral radial, brachial, femoral, popliteal, posterior tibial and and dorsalis pedis arteries.. 13:25 Respiratory: the patient does not display signs of respiratory distress, Respirations: normal, Breath sounds: rhonchi, are scattered. Vital Signs: 12:33 BP 178 / 108; Pulse 118; Resp 18; Temp 98.2(O); Pulse Ox 94% on R/A; Weight 106.14 kg; Height 6 ft. 2 in. (187.96 cm); Pain 0/10; 13:30 BP 146 / 84; Pulse 100; Resp 18; Pulse Ox 97% on R/A; hj 14:33 BP 146 / 84; Pulse 106; Resp 18; Pulse Ox 94% on R/A; 5 15:03 BP 139 / 80; Pulse 101; Resp 18; Pulse Ox 97% on R/A; hj 15:38 BP 154 / 100; Pulse 102; Resp 18; Pulse Ox 97% on 2 lpm NC; 16:30 BP 148 / 100; Pulse 89; Resp 18; Pulse Ox 98% on 2 lpm NC; 17:17 BP 148 / 99; Pulse 92; Resp 18; Pulse Ox 99% on 2 lpm NC; 12:33 Body Mass Index 30.04 (106.14 kg, 187.96 cm) MDM: 12:[address] [facility] 13:28 Data reviewed: vital signs, nurses notes, lab test result(s), EKG, radiologic studies, renae plain films. 01/03 12:39 Order name: Basic Metabolic Panel; Complete Time: 15:24 snw 01/03 12:39 Order name: CBC with Diff; Complete Time: 15:24 [facility] 01/03 12:39 Order name: Ckmb; Complete Time: 15:24 [facility] 01/03 12:39 Order name: CPK; Complete Time: 15:24 [facility] 01/03 12:39 Order name: LFT's; Complete Time: 15:24 [facility] 01/03 12:39 Order name: Magnesium; Complete Time: 15:24 [facility] 01/03 12:39 Order name: NT PRO-BNP; Complete Time: 15:24 [facility] 01/03 12:39 Order name: PT-INR; Complete Time: 13:30 [facility] 01/03 12:39 Order name: Ptt, Activated; Complete Time: 13:30 [facility] 01/03 12:39 Order name: Troponin (emerg Dept Use Only); Complete Time: 15:24 [facility] 01/03 12:39 Order name: Blood Culture Adult (2) [facility] 01/03 13:07 Order name: CBC Smear Scan; Complete Time: 15:24 [facility] 01/03 13:24 Order name: Procalcitonin; Complete Time: 15:24 [facility] 01/03 13:25 Order name: Urine Culture [facility] 01/03 12:39 Order name: XRAY Chest (1 view); Complete Time: 13:23 [facility] 01/03 12:39 Order name: EKG; Complete Time: 12:39 [facility] 01/03 12:39 Order name: Cardiac monitoring; Complete Time: 12:40 [facility] 01/03 12:39 Order name: EKG - Nurse/Tech; Complete Time: 12:40 [facility] 01/03 12:39 Order name: IV Saline Lock; Complete Time: 12:54 [facility] 01/03 12:39 Order name: Labs collected and sent; Complete Time: 12:54 [facility] 01/03 12:39 Order name: O2 Per Protocol; Complete Time: 12:40 [facility] 01/03 12:39 Order name: O2 Sat Monitoring; Complete Time: 12:40 [facility] 01/03 13:34 Order name: Lactate; Complete Time: 15:24 01/03 13:36 Order name: CONS Physician Consult [facility] 01/03 17:11 Order name: Urine Dipstick--Ancillary (enter results) 01/03 17:17 Order name: Urine Dipstick-Ancillary [facility] 01/03 12:39 Order name: Urine Dipstick-Ancillary (obtain specimen); Complete Time: 16:15 snw Administered Medications: 13:24 Drug: Cefepime 1 grams Route: IVPB; Rate: 200 ml/hr; Infused Over: 30 mins; Site: left cc3 antecubital; 13:45 Follow up: IV Status: Completed infusion; Infusion continued hj 13:30 Drug: Albuterol 2.5 mg Route: Inhalation; hj 13:30 Drug: AtroVENT Aerosol 0.5 mg Route: Inhalation; hj 14:08 Drug: vancoMYCIN 1 grams Route: IVPB; Infused Over: 2 hrs; Site: left antecubital; hj 14:08 Follow up: IV Status: Infusion continued hj Disposition: 01/03/18 13:32 Hospitalization ordered by Kadeem Langston for Inpatient Admission. Preliminary diagnosis are Dyspnea, End stage renal disease, Weakness, Tachycardia, unspecified. - Bed requested for Telemetry/MedSurg (Inpatient). - Status is Inpatient Admission. cc3 - Condition is Stable. - Problem is new. - Symptoms are unchanged. UTI on Admission? No Signatures: Dispatcher [employer] EDMS Aditya Sharp MD MD cha Therrien, Shelly, TRANSPORTATION ECONOMICS TEACHER-C TRANSPORTATION ECONOMICS TEACHER-Csnw Nitza Cheng RN RN iw Thad Shepherd RN RN hj Fitzgerald, Diane, RN RN df Cordel, Charlene cc3 Corrections: (The following items were deleted from the chart) 16:10 13:32 Hospitalization Ordered by Kadeem Langston MD for Inpatient Admission. Preliminary iw diagnosis is Dyspnea; End stage renal disease; Weakness; Tachycardia, unspecified. Bed requested for Telemetry/MedSurg (Inpatient). Status is Inpatient Admission. Condition is Stable. Problem is new. Symptoms are unchanged. UTI on Admission? No. renae 16:31 16:10 01/03/2018 13:32 Hospitalization Ordered by Kadeem Langston MD for Inpatient df Admission. Preliminary diagnosis is Dyspnea; End stage renal disease; Weakness; Tachycardia, unspecified. Bed requested for [facility] ER HOLD. Status is Inpatient Admission. Condition is Stable. Problem is new. Symptoms are unchanged. UTI on Admission? No. iw 17:56 16:31 01/03/2018 13:32 Hospitalization Ordered by Kaedem Langston MD for Inpatient cc3 Admission. Preliminary diagnosis is Dyspnea; End stage renal disease; Weakness; Tachycardia, unspecified. Bed requested for Telemetry/MedSurg (Inpatient). Status is Inpatient Admission. Condition is Stable. Problem is new. Symptoms are unchanged. UTI on Admission? No. df
--- NOTE | 2018-01-03 13:33 | ER ---
Nurse's Notes [facility] Name: Naldo Alejandre Age: 62 yrs Sex: Male : 1955 Arrival Date: 01/03/2018 Time: 12:25 Bed 13 Private MD: Diagnosis: Dyspnea;End stage renal disease;Weakness;Tachycardia, unspecified Presentation: 01/03 12:27 Presenting complaint: EMS states: from [facility] [place][Note 2], half way dialysis when hj the port got blocked; per EMS report, pt was given unknown meds, immediately after med was given, pt complaints of tremors and difficulty breathing, HR was on the 150's; BGL- 138; BP- 180/87; 99% RA; HR- 120; RR- 16;. Transition of care: [facility] [place][Note 2]. Onset of symptoms was January 03, 2018. Risk Assessment: Do you want to hurt yourself or someone else? Patient reports no desire to harm self or others. Initial Sepsis Screen: Does the patient meet any 2 criteria? No. Patient's initial sepsis screen is negative. Does the patient have a suspected source of infection? No. Patient's initial sepsis screen is negative. Care prior to arrival: None. 12:27 Method Of Arrival: EMS: [facility] 12:27 Acuity: TERRI 3 hj Triage Assessment: 12:32 General: Appears in no apparent distress. uncomfortable, Behavior is calm, cooperative, hj appropriate for age. Respiratory: Reports shortness of breath Onset: The symptoms/episode began/occurred suddenly, the patient has mild shortness of breath. Historical: - Allergies: 12:31 No Known Allergies; hj - Home Meds: 12:31 amitriptyline 25 mg Oral tab 1 tab once daily [Active]; Tums 200 mg calcium (500 mg) hj Oral chew daily [Active]; lisinopril 5 mg Oral tab 1 tab once daily [Active]; - PMHx: 12:31 Dialysis T-Th-Sat; ESRD; Hyperlipidemia; Hypertension; kidney disease; LYMPHOMA; hj - PSHx: 12:31 hip sx; right chest wall jasvir; hj - Immunization history:: Adult Immunizations up to date. - Social history:: Smoking status: Patient/guardian denies using tobacco, Patient/guardian denies using alcohol. - Ebola Screening: : Patient negative for fever greater than or equal to 101.5 degrees Fahrenheit, and additional compatible Ebola Virus Disease symptoms Patient denies exposure to infectious person Patient denies travel to an Ebola-affected area in the 21 days before illness onset. Screenin:32 Abuse screen: Denies threats or abuse. Denies injuries from another. Nutritional hj screening: No deficits noted. Tuberculosis screening: No symptoms or risk factors identified. Fall Risk None identified. Assessment: 12:31 General: Appears in no apparent distress. uncomfortable, Behavior is calm, cooperative, hj appropriate for age. General: with jasvir dressing in place, dry and intact;. Neuro: Level of Consciousness is awake, alert, obeys commands, Oriented to person, place, time, situation, Appropriate for age. GI: No signs and/or symptoms were reported involving the gastrointestinal system. : No signs and/or symptoms were reported regarding the genitourinary system. EENT: Derm: No signs and/or symptoms reported regarding the dermatologic system. Musculoskeletal: No signs and/or symptoms reported regarding the musculoskeletal system. 12:32 Pain: Denies pain. Cardiovascular: Rhythm is. Respiratory: Airway is patent Respiratory hj effort is even, unlabored, Respiratory pattern is regular, symmetrical, Breath sounds are clear. 13:30 Reassessment: Patient and/or family updated on plan of care and expected duration. Pain hj level reassessed. Patient is alert, oriented x 3, equal unlabored respirations, skin warm/dry/pink. family in room;. 14:30 Reassessment: Patient and/or family updated on plan of care and expected duration. Pain hj level reassessed. Patient is alert, oriented x 3, equal unlabored respirations, skin warm/dry/pink. awaiting results and POC;. 15:03 Reassessment: Patient and/or family updated on plan of care and expected duration. Pain hj level reassessed. Patient is alert, oriented x 3, equal unlabored respirations, skin warm/dry/pink. awaiting results;. 15:39 Reassessment: Patient and/or family updated on plan of care and expected duration. Pain hj level reassessed. Patient is alert, oriented x 3, equal unlabored respirations, skin warm/dry/pink. awaiting POC: sister informed staff that PCP is in [place] and pt just had sleep study; pt's O2 sat drops to 92-93% when asleep; pt was placed on O2 at 2L, sats up to 98%;. 16:30 Reassessment: Patient and/or family updated on plan of care and expected duration. Pain hj level reassessed. Patient is alert, oriented x 3, equal unlabored respirations, skin warm/dry/pink. to 211;. 17:15 Reassessment: Patient and/or family updated on plan of care and expected duration. Pain hj level reassessed. Patient is alert, oriented x 3, equal unlabored respirations, skin warm/dry/pink. awaiting for floor nurse ot call back for report;. Vital Signs: 12:33 BP 178 / 108; Pulse 118; Resp 18; Temp 98.2(O); Pulse Ox 94% on R/A; Weight 106.14 kg; hj Height 6 ft. 2 in. (187.96 cm); Pain 0/10; 13:30 BP 146 / 84; Pulse 100; Resp 18; Pulse Ox 97% on R/A; hj 14:33 BP 146 / 84; Pulse 106; Resp 18; Pulse Ox 94% on R/A; 5 15:03 BP 139 / 80; Pulse 101; Resp 18; Pulse Ox 97% on R/A; hj 15:38 BP 154 / 100; Pulse 102; Resp 18; Pulse Ox 97% on 2 lpm NC; hj 16:30 BP 148 / 100; Pulse 89; Resp 18; Pulse Ox 98% on 2 lpm NC; hj 17:17 BP 148 / 99; Pulse 92; Resp 18; Pulse Ox 99% on 2 lpm NC; hj 12:33 Body Mass Index 30.04 (106.14 kg, 187.96 cm) ED Course: 12:25 Patient arrived in ED. hj 12:30 Triage completed. hj 12:33 Arm band placed on right wrist. hj 12:33 Patient has correct armband on for positive identification. Placed in gown. Bed in low hj position. Call light in reach. Side rails up X2. 12:40 Thad Shepherd, RN is Primary Nurse. 12:50 Initial lab(s) drawn, by me, sent to lab. First set of blood cultures drawn by md. [facility] 12:52 Aditya Sharp MD is Attending Physician. [facility] 12:53 Blood Culture Adult (2) Sent. hj 12:53 Basic Metabolic Panel Sent. hj 12:53 CBC with Diff Sent. hj 12:53 Ckmb Sent. hj 12:53 CPK Sent. hj 12:53 LFT's Sent. hj 12:53 Magnesium Sent. hj 12:54 NT PRO-BNP Sent. hj 12:54 PT-INR Sent. hj 12:54 Ptt, Activated Sent. hj 12:54 Troponin (emerg Dept Use Only) Sent. hj 12:55 Inserted saline lock: 22 gauge in left antecubital area, using aseptic technique. Blood mh5 collected. 12:56 X-ray completed. Portable x-ray completed in exam room. Patient tolerated procedure ml well. 12:56 Placed in gown. Bed in low position. Call light in reach. Side rails up X2. Adult w/ mh5 patient. Warm blanket given. ostrich farmer on. Pulse ox on. NIBP on. 12:58 XRAY Chest (1 view) In Process Unspecified. EDMD 13:23 EKG done, by certified scrub tech. reviewed by Aditya Sharp MD. at1 13:31 Kadeem Langston MD is Hospitalizing Provider. [facility] 13:44 Lactate Sent. hj 17:10 No provider procedures requiring assistance completed. Patient admitted, IV remains in hj place. intact. Administered Medications: 13:24 Drug: Cefepime 1 grams Route: IVPB; Rate: 200 ml/hr; Infused Over: 30 mins; Site: left cc3 antecubital; 13:45 Follow up: IV Status: Completed infusion; Infusion continued hj 13:30 Drug: Albuterol 2.5 mg Route: Inhalation; hj 13:30 Drug: AtroVENT Aerosol 0.5 mg Route: Inhalation; hj 14:08 Drug: vancoMYCIN 1 grams Route: IVPB; Infused Over: 2 hrs; Site: left antecubital; hj 14:08 Follow up: IV Status: Infusion continued Outcome: 13:32 Decision to Hospitalize by Provider. renae 17:10 Admitted to Med/surg accompanied by nurse, via wheelchair, room 211, with chart, Report hj called to ELEONORA Damon 17:10 Condition: stable 17:10 Instructed on the need for admit, Demonstrated understanding of instructions. 17:56 Patient left the ED. cc3 Signatures: Dispatcher [employer] Aditya Uriostegui MD MD cha Lopez, Melissa ml Gonzales, Amanda fabrication manager EKG Tat1 Thad Shepherd, RN RN Mckenna Davis 5 Apple Hu cc3
[2018-01-03] MEDS ORDERED: IPRATROPIUM BROM 0.5MG/2.5ML ONE (13:52)
[2018-01-03] MEDS ORDERED: ALBUTEROL 2.5 MG/3 ML NEB SOL ONE (13:52)
[2018-01-03 14:03] LABS: Blood Morphology Comment NOT SEEN (NOT SEEN); Platelet Estimate ADEQ; Urine White Blood Cell Casts OK
[2018-01-03] MEDS ORDERED: ONDANSETRON 4 MG/2 ML VIAL IV PRN (14:06)
[2018-01-03] MEDS: NA CHLORIDE 0.9% 1,000 ML IV SCH (15:00)
[2018-01-03] MEDS ORDERED: NA CHLORIDE 0.9% 1,000 ML ONE (16:35)
[2018-01-03 17:17] LABS: Urine Blood TRACE (NEG); Urine Glucose TRACE (NEG); Urine Protein 3+ (NEG)
[2018-01-03] MEDS ORDERED: VANCOMYCIN/NS 1 gm 1 GM/250 ML BAG IVPB SCH (18:00)
[2018-01-04] MEDS: NA CHLORIDE 0.9% 1,000 ML IV SCH (04:20)
[2018-01-04] MEDS ORDERED: HYDRALAZINE HCL 20 MG/ML VIAL IV ONE (05:19)
[2018-01-04 05:42] LABS: Absolute Lymphocytes (CBC) 0.6 K/uL (0.7-4.9); Absolute Monocytes 1.6 K/uL (0.1-1.3); Absolute Neutrophil 7.6 K/uL (1.8-8.0); Basophils % 0.5 % (0-1.3); Eosinophils % 0.5 % (0-4.4); Hematocrit 29.9 % (39.6-49.0); Lymphocytes % 6.2 % (15.3-44.8); MCH 29.4 pg (27.0-35.0); MCV 88.1 fL (80-100); MPV 9.5 fL (7.6-11.3); Monocytes % 16.2 % (3.3-12.3)
[2018-01-04 05:53] LABS: Albumin 2.8 g/dL (3.4-5.0); Bilirubin Total 0.3 mg/dL (0.2-1.0); Potassium 4.5 mmol/L (3.5-5.1); Protein, Total 7.2 g/dL (6.4-8.2)
[2018-01-04] MEDS: TERAZOSIN HCL 5 MG CAP PO SCH ×2 (06:09→21:57)
[2018-01-04] MEDS: NIFEDIPINE XL 90 MG TABLET PO SCH ×2 (06:09→21:56)
[2018-01-04 06:50] LABS: Platelet Estimate ADEQ; Urine White Blood Cell Casts OK
[2018-01-04 06:51] LABS: Blood Morphology Comment NOT SEEN (NOT SEEN)
--- NOTE | 2018-01-04 07:33 | P.HP ---
Certification for Inpatient Patient admitted to: Inpatient With expected LOS: >2 Midnights Patient will require the following post-hospital care: None Practitioner: I am a practitioner with admitting privileges, knowledge of patient current condition, hospital course, and medical plan of care. Services: Services provided to patient in accordance with Admission requirements found in Title 42 Section 412.3 of the Code of Federal Regulations Patient History Date of Service: 01/03/18 Reason for admission: Shortness of breath/fevers/shakes and chills History of Present Illness: Patient is a 62-year-old gentleman who came into the hospital with fever shakes and chills. Patient was at the dialysis clinic and apparently his dialysis access catheter would not flush. He states that they attempted to use a medication to try to flush the catheter to get it to work again. They had placed a particular medication into the catheter, and they had left it in the catheter for a short period. He started to get shakes and chills around that time. He became short of breath. She was sent to the emergency room for further evaluation. In the ER he was felt to be a little volume overloaded. He was admitted for admission for hemodialysis. Allergies No Known Allergies Allergy (Verified 01/03/18 16:33) Home Medications: Metoprolol Tartrate 1 tab PO DAILY 01/03/18 Nifedipine Xl [Procardia XL*] 90 mg PO BEDTIME 01/03/18 Terazosin HCl [Hytrin] 2 tab PO BEDTIME 01/03/18 Hydralazine HCl 50 mg PO BEDTIME 01/04/18 - Past Medical/Surgical History Has patient received pneumonia vaccine in the past: No Diabetic: No -: End-stage renal disease,(T,Th,Sat) -: HTN -: BPH -: Obesity -: Possible obstructive sleep apnea -: History of lymphoma -: Hyperlipidemia -: Tobacco abuse -: Right hip and pelvic surgery -: Dialysis catheter placement -: Port-A-Cath placement Psychosocial/ Personal History: The patient is but has a fiancee. He has 3 children. - Family History Father Medical History: Hypertension, Other (see notes) Notes: Multiple sclerosis - Social History Smoking Status: Never smoker Alcohol use: No CD- Drugs: No Caffeine use: No Place of Residence: Home Review of Systems 10-point ROS is otherwise unremarkable Physical Examination - Vital Signs Temperature: 97.5 F Blood Pressure: 169/93 Pulse: 80 Respirations: 16 Pulse Ox (%): 95 - Physical Exam General: Alert, In no apparent distress, Oriented x3 HEENT: Atraumatic, PERRLA, Mucous membr. moist/pink, EOMI, Sclerae nonicteric Neck: Supple, 2+ carotid pulse no bruit, No LAD, Without JVD or thyroid abnormality Respiratory: Diminished, Crackles/rales Cardiovascular: Regular rate/rhythm, Normal S1 S2, Systolic murmur Gastrointestinal: Normal bowel sounds, Soft and benign, Non-distended, No tenderness Musculoskeletal: No clubbing, No tenderness, Swelling Integumentary: No rashes, No breakdown, No significant lesion, Other (Dialysis access catheter in the right subclavian) Neurological: Normal gait, Normal speech, Normal strength at 5/5 x4 extr, Normal tone, Sensation intact, Cranial nerves 3-12 intact, Normal affect Lymphatics: No axilla or inguinal lymphadenopathy - Studies Laboratory Data (last 24 hrs) 01/03/18 12:50: PT 13.3 H, INR 1.13, APTT 24.5 01/03/18 12:50: WBC 10.7, Hgb 13.4 L, Hct 40.7, Plt Count 183 01/03/18 12:50: Sodium 135 L, Potassium 4.4, BUN 69 H, Creatinine 11.90 H*, Glucose 107 H, Magnesium 2.4, Total Bilirubin 0.4, AST 66 H, ALT 54, Alkaline Phosphatase 48 Assessment & Plan - Problems (Diagnosis) (1) Complication, dialysis catheter clot or failure Current Visit: Yes Status: Acute (2) ESRD (end stage renal disease) Current Visit: Yes Status: Acute (3) Bacteremia due to Gram-positive bacteria Current Visit: No Status: Acute (4) HTN (hypertension) Onset Date: 01/21/17 Current Visit: No Status: Chronic Qualifiers: (5) History of lymphoma Onset Date: 01/21/17 Current Visit: No Status: Chronic (6) Hyperlipidemia Onset Date: 01/21/17 Current Visit: No Status: Chronic Qualifiers: - Plan Plan: 1. Nephrology consultation for hemodialysis 2. IV antibiotic 3. Monitor labs closely 4. Discuss with Nephrology regarding hemodialysis access if it is not functioning 5. Strict blood pressure and blood sugar control 6. GI and DVT prophylaxis Discharge Plan: Home Plan to discharge in: 24 Hours - Advance Directives Does patient have a Living Will: No Does patient have a Durable POA for Healthcare: No - Code Status/Comfort Care Code Status Assessed: Yes Code Status: Full Code Critical Care: No Time Spent Managing PTS Care (In Minutes): 50
[2018-01-04] MEDS: METOPROLOL TAR 50 MG TAB PO SCH (08:50)
[2018-01-04] MEDS ORDERED: CEFEPIME 1 GM/VIAL IV SCH (09:00)
[2018-01-04] MEDS: CEFEPIME/SWI 1gm 1 GM/10 ML SYR IVP SCH (09:44)
--- NOTE | 2018-01-04 16:21 | EKG ---
Test Date: 2018-01-03 Test Time: 13:17:41 Slat Basket Maker Machine: GURVINDER MEASUREMENT RESULTS: Intervals: Rate: 112 NH: 160 QRSD: 80 QT: 344 QTc: 469 [place]: P: 53 NH: 160 QRS: 0 T: 89 INTERPRETIVE STATEMENTS: Sinus tachycardia Low voltage QRS Septal infarct, age undetermined Abnormal ECG Compared to ECG 02/24/2017 21:52:22 Low QRS voltage now present Left-axis deviation no longer present Myocardial infarct finding still present Electronically Signed On 01-04-18 16:15:02 CDT by Palomo Savage
[2018-01-04] MEDS ORDERED: WATER FOR INJ,STERILE 10 ML IV PRN (17:59)
[2018-01-04] MEDS ORDERED: ALTEPLASE 2 MG/VIAL IV SCH (18:00)
--- NOTE | 2018-01-04 18:16 | PN ---
Date of Progress Note: 01/04/2018 Subjective: The patient is seen and examined. Chart reviewed and case discussed with RN and Dr. Malgorzata mejia. The patient still complaining of some pain around his catheter site, mainly towards the neck. Review of Systems: Negative except as above. Medications: List reviewed. Physical Examination: Vital Signs: Temperature 98.5, heart rate 95, blood pressure 139/92, respirations 20, O2 95% on room air. General: Awake, alert, oriented x3, in some mild distress, ill-appearing male. BMI 30. CV: S1, S2. No murmurs. Regular rate and rhythm. Peripheral pulses present. Respiratory: Moving air well bilaterally. No wheezing. Gastrointestinal: Abdomen is soft, nontender, nondistended. Positive bowel sounds. Extremities: No clubbing, cyanosis, or edema. Neurologic: Nonfocal. Laboratory Data: Sodium 137, potassium 4.5, chloride 100, CO2 23, BUN 77, creatinine 12.6, glucose 9 4, lactate 1.4, calcium 8.9, albumin 2.8. WBC 9.9, H and H 10 and 29.9, platelets 204, neutrophils 7 6%. Blood culture and urine culture pending. Gram stain shows gram-negative rods. Chest x-ray pers onally reviewed from 01/03, shows linear atelectasis in both lung bases. Assessment And Plan: A 62-year-old male with: 1.Dialysis catheter complication with possible clot per Dr. Huddleston. Dialysis nurse was able to use Alteplase and was able to use the catheter properly. 2.Gram-negative bacteremia. We will continue IV antibiotics and follow up with sensitivities. 3.End-stage renal disease, on hemodialysis. 4.Systemic inflammatory response syndrome. Procalcitonin is elevated. Source of infection is bacte remia. The patient is slightly tachycardic. We will watch for signs of sepsis. We will continue wi th IV fluids. 5.Essential hypertension, stable. 6.History of lymphoma. 7.Mixed hyperlipidemia. Plan: Continue dialysis as scheduled. Continue IV antibiotics. Follow up on cultures. SA/MODL Voice ID: [id number] Report ID: [id number]
--- NOTE | 2018-01-04 21:49 | P.CNS ---
Date of Consult: 01/04/18 Reason for Consult: ESRD Requesting Physician: Kadeem Langston Chief Complaint: Shortness of breath/fevers/shakes and chills History of Present Illness: 62 yo BM CKD presented to the ER with less than 24 hours of moderate, progressive malaise with associated fever and chills soon after getting his HD catheter replaced. Feeling better today. Last dialysis yesterday. Patient is a 62-year-old gentleman who came into the hospital with fever shakes and chills. Patient was at the dialysis clinic and apparently his dialysis access catheter would not flush. He states that they attempted to use a medication to try to flush the catheter to get it to work again. They had placed a particular medication into the catheter, and they had left it in the catheter for a short period. He started to get shakes and chills around that time. He became short of breath. She was sent to the emergency room for further evaluation. In the ER he was felt to be a little volume overloaded. He was admitted for admission for hemodialysis. Allergies No Known Allergies Allergy (Verified 01/03/18 16:33) Home medications list reviewed: Yes Home Medications: Metoprolol Tartrate 1 tab PO DAILY 01/03/18 Nifedipine Xl [Procardia XL*] 90 mg PO BEDTIME 01/03/18 Terazosin HCl [Hytrin] 2 tab PO BEDTIME 01/03/18 Hydralazine HCl 50 mg PO BEDTIME 01/04/18 - Past Medical/Surgical History Diabetic: No -: End-stage renal disease,(T,Th,Sat) -: HTN -: BPH -: Obesity -: Possible obstructive sleep apnea -: History of lymphoma -: Hyperlipidemia -: Tobacco abuse -: Right hip and pelvic surgery -: Dialysis catheter placement -: Port-A-Cath placement Psychosocial/ Personal History: The patient is but has a fiancee. He has 3 children. - Family History Father Medical History: Hypertension, Other (see notes) Notes: Multiple sclerosis - Social History Smoking Status: Current some day smoker Alcohol use: No CD- Drugs: No Caffeine use: No Place of Residence: Home Review of Systems 10-point ROS is otherwise unremarkable General: Weakness, Malaise Respiratory: SOB with Excertion Physical Examination Temp Pulse Resp BP Pulse Ox 98.2 F 95 H 20 163/93 H 92 01/04/18 16:00 01/04/18 16:00 01/04/18 16:00 01/04/18 16:00 01/04/18 16:00 General: In no apparent distress, Oriented x3, Cooperative HEENT: Mucous membr. moist/pink Neck: Supple Respiratory: Clear to auscultation bilaterally Cardiovascular: No edema, Regular rate/rhythm, No rubs Gastrointestinal: Soft and benign, Non-distended, No guarding Musculoskeletal: No clubbing, No contractures Integumentary: No rashes, No cyanosis Neurological: Normal speech Hgb 10 Blood work reviewed in the chart. Imagings Data: EXAM DESCRIPTION: RAD - Chest Single View - 01/03/2018 12:58 pm CLINICAL HISTORY: dialysis Chest pain. COMPARISON: Chest Single View dated 02/24/2017; Chest Single View dated 2016; Chest Pa And Lat (2 Views) dated 01/21/2017; Chest Single View dated 2016 FINDINGS: Portable technique limits examination quality. Linear atelectasis is present in both lung bases. The heart is mildly prominent in size with right-sided venous catheter tip in SVC. No displaced fractures. Conclusions/Impression: A/ ESRD on HD. Proteinuria. HTN with CKD. Diastolic CHF, chronic. Anemia in CKD. BIJU/ Secondary HyperPTH. Hyponatremia. P/ Continue current POC and Medications. Follow up blood cultures. Agree with abx. Next HD tomorrow. Give Epo. Restart home medications as indicated. No NSAIDs. AM labs. Daily weight. Thank you kindly for the consultation.
[2018-01-04] MEDS ORDERED: MANNITOL 25% 12.5 GM/50 ML VIAL IV PRN (21:54)
[2018-01-04] MEDS ORDERED: NA CHLORIDE 0.9% 1,000 ML IV PRN (21:54)
[2018-01-04] MEDS: HYDRALAZINE HCL 25 MG TABLET PO SCH (21:57)
[2018-01-04] MEDS: ACETAMINOPHEN 500 MG TAB PO PRN (21:58)
[2018-01-04] MEDS ORDERED: EPOETIN ALFA 10,000 UNIT/ML VIAL IV SCH (22:00)
[2018-01-04] MEDS ORDERED: ALBUMIN HUMAN 25% 50 ML IV SCH (22:00)
[2018-01-05 05:12] LABS: Absolute Lymphocytes (CBC) 1.1 K/uL (0.7-4.9); Absolute Monocytes 1.6 K/uL (0.1-1.3); Absolute Neutrophil 3.7 K/uL (1.8-8.0); Basophils % 0.5 % (0-1.3); Eosinophils % 2.5 % (0-4.4); Hematocrit 30.2 % (39.6-49.0); Lymphocytes % 16.8 % (15.3-44.8); MCH 29.3 pg (27.0-35.0); MCV 88.2 fL (80-100); MPV 9.2 fL (7.6-11.3); RBC Red Blood Cell Count 3.43 M/uL (4.33-5.43)
[2018-01-05 05:31] LABS: Monocytes % 23.8 % (3.3-12.3)
[2018-01-05 05:45] LABS: Albumin 2.8 g/dL (3.4-5.0); Bilirubin Total 0.2 mg/dL (0.2-1.0); Protein, Total 7.1 g/dL (6.4-8.2)
[2018-01-05] MEDS: METOPROLOL TAR 50 MG TAB PO SCH (09:00)
[2018-01-05] MEDS: CEFEPIME/SWI 1gm 1 GM/10 ML SYR IVP SCH (10:42)
[2018-01-05 13:31] VITALS: O2SAT 92
[2018-01-05] MEDS ORDERED: ENOXAPARIN 30 MG/0.3 ML SQ SCH (17:00)
--- NOTE | 2018-01-05 17:14 | PN ---
Date of Progress Note: 01/05/2018 Subjective: The patient is seen and examined. Chart reviewed and case discussed with RN and Dr. Malgorzata mejia. The patient went down for dialysis, had some chills, and dialysis was discontinued. Review of Systems: Negative except as above. Medications: List reviewed. Physical Examination: Vital Signs: Temperature 99.7, heart rate 106, blood pressure 144/91, respirations 18, O2 96% on megan m air. General: Awake, alert, oriented x3, in some mild distress. Elderly male, obese, BMI 30. CV: S1, S2. Sinus tachycardia. No murmurs. Peripheral pulses present. Respiratory: Moving air well bilaterally. No wheezing. No stridor. Gastrointestinal: Abdomen is soft, nontender, nondistended. Positive bowel sounds. Extremities: No clubbing, cyanosis, edema. Neurologic: Nonfocal. Skin: The patient has a dialysis catheter in the right chest. Laboratory Data: Sodium 134, potassium 4, chloride 98, CO2 of 23, BUN 26, creatinine 13.2, glucose 1 12, calcium 8.9, albumin 2.8. WBC 6.6, H and H 10 and 30.2, platelets 214, neutrophils 56%. Blood c ultures prelim shows gram-negative rods. Urine culture shows mixed miller. Assessment And Plan: A 62-year-old male with: 1.Dialysis catheter complication and possible clot. This issue was resolved; however, the patient m ay have infection of the dialysis catheter. We will speak with Dr. Huddletson and have surgery involved for replacement of the catheter. 2.Gram-negative bacteremia, likely secondary to infection, and possible dialysis catheter infection. We will continue with IV antibiotics and follow up with ID and sensitivity. 3.End-stage renal disease, on hemodialysis, unable to get hemodialysis today due to reaction. 4.Systemic inflammatory response syndrome. The patient is bacteremic, tachycardic, elevated procalc itonin. We will watch for signs of developing sepsis. White count is currently normal. Continue lynn pportive care. 5.Essential hypertension, stable. 6.History of lymphoma. 7.Mixed hyperlipidemia. 8.Gastrointestinal and deep venous thrombosis prophylaxis addressed. SA/MODL Voice ID: [id number] Report ID: [id number]
[2018-01-05] MEDS: HYDRALAZINE HCL 25 MG TABLET PO SCH (20:41)
[2018-01-05] MEDS: TERAZOSIN HCL 5 MG CAP PO SCH (20:42)
[2018-01-05] MEDS: NIFEDIPINE XL 90 MG TABLET PO SCH (20:42)
[2018-01-05] MEDS: ACETAMINOPHEN 500 MG TAB PO PRN (20:42)
[2018-01-05 20:43] VITALS: BP 154/97
[2018-01-05 21:10] VITALS: TEMP 99.3
--- NOTE | 2018-01-05 22:01 | P.PN ---
Date of Service: 01/05/18 Vital Signs Temp Pulse Resp BP Pulse Ox 99.3 F 80 18 154/97 H 98 01/05/18 20:00 01/05/18 20:42 01/05/18 20:00 01/05/18 20:42 01/05/18 20:00 Medications Acetaminophen (Tylenol -Extra Strength) 500 mg PO Q4HP PRN PRN Reason: [id number] Stop: 02/02/18 14:07 Last Admin: 01/05/18 20:42 Dose: 500 mg Enoxaparin Sodium (Lovenox 30 Mg Inj) 30 mg SQ DAILY 5 PM ARUN Stop: 02/04/18 17:01 Last Admin: 01/05/18 17:37 Dose: 30 mg Epoetin Jeison (Procrit) 10,000 unit IV EVERY HD ARUN Stop: 02/03/18 22:01 Heparin Sodium (Porcine) (Heparin 1,000 Units/Ml) 6,000 unit IJ EVERY HD PRN PRN Reason: FLUSH AFTER EACH USE Stop: 02/03/18 21:55 Hydralazine HCl (Apresoline) 50 mg PO BEDTIME ARUN Stop: 02/03/18 21:01 Last Admin: 01/05/18 20:41 Dose: 50 mg Vancomycin HCl (Vancomycin 1 Gm/250 Ml Ns Ivpb) 1 gm in 250 mls @ 166.667 mls/ hr IVPB AFTER EACH DIALYSIS [facility]; Protocol Stop: 02/02/18 18:01 Last Admin: 01/05/18 11:30 Dose: 250 mls Cefepime HCl (Maxipime 1 Gm/10 Ml Swi Ivp) 1 gm in 10 mls @ 120 mls/hr IVP DAILY ARUN Stop: 02/03/18 09:01 Last Admin: 01/05/18 10:42 Dose: 10 mls Albumin Human (Albumin 25%) 50 mls @ 100 mls/hr IV EVERY HD ARUN Stop: 02/03/18 22:01 Mannitol (Mannitol 12.5 Gm/50 Ml Vial) 12.5 gm IV EVERY HD PRN PRN Reason: BP support at hemodialysis Stop: 02/03/18 21:55 Metoprolol Tartrate (Lopressor) 100 mg PO DAILY ARUN Stop: 02/03/18 09:01 Last Admin: 01/05/18 09:00 Dose: Not Given Nifedipine (Procardia Xl) 90 mg PO BEDTIME ARUN Stop: 02/03/18 06:01 Last Admin: 01/05/18 20:42 Dose: 90 mg Ondansetron HCl (Zofran) 4 mg IV Q4H PRN PRN Reason: NAUSEA / VOMITING Stop: 02/02/18 14:07 Sodium Chloride (Normal Saline Flush) 10 ml IV BID ARUN Stop: 02/02/18 21:01 Last Admin: 01/05/18 20:43 Dose: 10 ml Terazosin HCl (Hytrin) 10 mg PO BEDTIME ARUN Stop: 02/03/18 05:19 Last Admin: 01/05/18 20:42 Dose: 10 mg Microbiology Results 01/03/18 12:50 Blood - Blood Aerobic Blood Culture - Preliminary 01/03/18 12:50 Blood - Blood Gram Stain - Preliminary 01/03/18 12:50 Blood - Blood Anaerobic Blood Culture - Preliminary 01/03/18 12:50 Blood - Blood Gram Stain - Preliminary Assessment/ Plan: Nephrology. Feeling better today. CPS stable without CP or SOB. No acute events overnight. HD nurse reported chills and rigors on HD. Vitals, medications, blood work and imaging reviewed in the chart. General: In no apparent distress, Oriented x3, Cooperative HEENT: Mucous membr. moist/pink Neck: Supple Respiratory: Clear to auscultation bilaterally Cardiovascular: No edema, Regular rate/rhythm, No rubs Gastrointestinal: Soft and benign, Non-distended, No guarding Musculoskeletal: No clubbing, No contractures Integumentary: No rashes, No cyanosis Neurological: Normal speech Hgb 10 Blood work reviewed in the chart. Imagings Data: EXAM DESCRIPTION: RAD - Chest Single View - 01/03/2018 12:58 pm CLINICAL HISTORY: dialysis Chest pain. COMPARISON: Chest Single View dated 02/24/2017; Chest Single View dated 2016; Chest Pa And Lat (2 Views) dated 01/21/2017; Chest Single View dated 2016 FINDINGS: Portable technique limits examination quality. Linear atelectasis is present in both lung bases. The heart is mildly prominent in size with right-sided venous catheter tip in SVC. No displaced fractures. Conclusions/Impression: A/ ESRD on HD. Proteinuria. HTN with CKD. Diastolic CHF, chronic. Anemia in CKD. BIJU/ Secondary HyperPTH. Hyponatremia. GNR bacteremia concerning for CVC infection. P/ Continue current POC and Medications. Seen and examined on HD. Follow up blood cultures. Agree with abx. Next HD Tuesday. Give Epo. No NSAIDs. AM labs. Daily weight. Case discussed with Dr. Langston Plan to transfer the patient due to patient preference; may need a catheter exchange.
--- NOTE | 2018-01-07 06:44 | DS ---
Date of Discharge: 01/05/2018 Consultants: Dr. Huddleston with Nephrology. Admitting Diagnoses: 1.Dialysis catheter malfunction, clot. 2.End-stage renal disease, on dialysis. 3.Bacteremia secondary to gram-negative rods. 4.Essential hypertension. 5.History of lymphoma. 6.Mixed hyperlipidemia. 7.Obesity, BMI 30. Discharge Diagnoses: 1.Dialysis catheter malfunction, possible clot, corrected. 2.Gram-negative bacteremia. 3.Systemic inflammatory response syndrome. 4.Possible dialysis catheter infection. 5.Essential hypertension. 6.History of lymphoma. 7.Mixed hyperlipidemia. 8.Obesity, BMI 30. 9.Obstructive sleep apnea, on CPAP. Hospital Course: The patient is an obese male with history of end-stage renal disease, on dialysis, comes in with shortness of breath, fever, shakes, and chills. The patient seemed to have some malfun ction of his dialysis catheter; however, heparin was used and dialysis catheter was functioning. How ever, the patient came into the ER for further evaluation for possible catheter line infection or oth er. The patient was started on IV antibiotics. He had a normal white blood cell count. However, he did have elevated procalcitonin level, fevers, chills, and was suspected to have infection. His blo od cultures grew out gram-negative rods, Enterococcus faecalis, Pseudomonas aeruginosa, which was sti ll pending identification yesterday. The patient was unable to complete dialysis and the patient was then referred to general surgeon, Dr. Humphries for dialysis catheter removal and replacement. However, as previous attempt for dialysis catheter removal and replacement was unsuccessful due to his abnorm al vascular anatomy, Dr. Humphries recommended transfer to [facility] as he has had previous catheter rem ovals and replacements done by Vascular Surgery. The patient was then referred to [facility]. Was a ccepted and transferred for high level of care as Vascular Surgery was unavailable. Should note that the patient has been refusing AV fistula despite Nephrology recommendation. The patient was then tr ansferred to [facility] in stable condition. For physical exam findings, please see progress note on day of discharge. /ZEINAB Voice ID: [id number] Report ID: [id number]
== END 2018-01-05 21:59 | disposition short-term general hospital (02) | DRG 314 ==
LOC: ER 12:24 → ERHOLD 13:34 → 2ND 17:34
PROVIDERS: ADMIT Family Medicine; ATTEND Hospitalist
DX: T82.41XA Breakdown (mechanical) of vascular dialysis catheter, initial encounter (principal); N18.6 End stage renal disease; R78.81 Bacteremia; I13.2 Hypertensive heart and chronic kidney disease with heart failure and with stage 5 chronic kidney disease, or end stage renal disease; I50.32 Chronic diastolic (congestive) heart failure; E87.1 Hypo-osmolality and hyponatremia; T82.7XXA Infection and inflammatory reaction due to other cardiac and vascular devices, implants and grafts, initial encounter; B96.5 Pseudomonas (aeruginosa) (mallei) (pseudomallei) as the cause of diseases classified elsewhere; Z99.2 Dependence on renal dialysis; E78.2 Mixed hyperlipidemia; Z85.72 Personal history of non-Hodgkin lymphomas; E66.9 Obesity, unspecified; Z68.30 Body mass index [BMI] 30.0-30.9, adult; G47.33 Obstructive sleep apnea (adult) (pediatric)
CPT/HCPCS: 36415; 71045; 80048; 80053; 80076; 80202; 81003; 82550; 82553; 83605; 83735; 83880; 84145; 84484; 85025; 85610; 85730; 87040; 87077; 87086; 87088; 87186; 87205; 90935; 93005; 94760; 96365; 96375; 99285; J0360; J0692; J1650; J2997; J3370; J7030; Q4081

== ENCOUNTER 2018-07-18 12:23 | Emergency (ER) | payer OTHER ==
--- OUTSIDE RECORDS SUMMARY | 2018-07-18 12:27 | XMS REPORT | Clinical Summary ---
:1955 Author Organization [facility] Address [address] [place] [address] Care Team Providers Name Role Phone Pcp, No Primary Care Provider Unavailable Allergies No Known Allergies Medications Medication Sig Dispensed Refills Start Date End Date Status lovastatin Take 20 mg by 0 Active (MEVACOR) 20 MG mouth nightly. tablet terazosin (HYTRIN) Take 5 mg by 0 Active 5 MG capsule mouth 2 (two) times daily . hydrALAZINE Take 50 mg by 0 Active (APRESOLINE) 50 MG mouth 2 (two) tablet times daily . sevelamer (RENVELA) Take 800 mg by 0 Active 800 mg tablet mouth 3 (three) times daily with meals. traMADol (ULTRAM) Take 1 tablet 30 tablet 0 03/04/2017 Active 50 mg tablet (50 mg total) by mouth every 6 (six) hours as needed for Pain (s/p pharangeal biospy). Max Daily Amount: 200 mg apixaban (ELIQUIS) Take 0.5 tablets 60 tablet 0 01/14/2018 Active 5 mg Tab tablet (2.5 mg total) by mouth 2 (two) times daily. metoprolol Take 100 mg by 0 Active (TOPROL-XL) 100 MG mouth daily. 24 hr tablet NIFEdipine (ADALAT Take 90 mg by 0 Active CC) 90 MG 24 hr mouth daily. tablet NIFEdipine Take 90 mg by 0 Discontinued (PROCARDIA-XL) 60 mouth daily . 8 MG (OSM) 24 hr tablet metoprolol Take 100 mg by 0 Discontinued (LOPRESSOR) 50 MG mouth daily . 8 tablet omega-3 fatty Take 1,200 mg by 0 Discontinued acids-vitamin E mouth daily. 8 1,000 mg Cap ciprofloxacin HCl Take 1 tablet 7 tablet 0 01/14/2018 Discontinued (CIPRO) 500 MG (500 mg total) 8 tablet by mouth daily for 7 days. ciprofloxacin HCl TAKE 1 7 tablet 0 02/01/2018 Discontinued (CIPRO) 500 MG TABLET(500 MG) 8 tablet BY MOUTH DAILY FOR 7 DAYS acetaminophen-codei Take 1 tablet by 30 tablet 0 03/21/2018 ne (TYLENOL #4) mouth every 4 8 300-60 mg per (four) hours as tablet needed for Pain for up to 10 days. 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 Vascular catheter infection 01/07/2018 ESRD (end stage renal disease) on dialysis 01/06/2018 HTN (hypertension) 01/06/2018 MRSA bacteremia 03/04/2017 MSSA (methicillin susceptible Staphylococcus aureus) infection 03/04/2017 Metabolic acidosis 03/01/2017 CLABSI (central line-associated bloodstream infection) 02/28/2017 Sepsis 02/25/2017 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, face, 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/25/2016 Admission for antineoplastic chemotherapy 08/25/2016 T-cell lymphoma 07/14/2016 Lymphoma 06/23/2016 Encounter for antineoplastic chemotherapy 06/23/2016 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 Encounter for chemotherapy management 05/20/2016 Lymphoma 05/20/2016 ALL (acute lymphoblastic leukemia) 05/20/2016 UTI (urinary tract infection) 04/25/2016 Lymphoma 04/23/2016 Hypertension 04/21/2016 Hypercholesteremia 04/21/2016 End stage renal disease on dialysis 04/21/2016 Neck swelling 04/20/2016 SOB (shortness of breath) 04/19/2016 Stridor 04/19/2016 Encounters Date Type Specialty Care Team Description 07/18/2018 Anesthesia Event Guilherme Baptiste MD 07/18/2018 [facility] Kalen Carlos, Tisha NGUYEN 05/26/2018 Outside Orders [facility] Chandra Young Peripheral T- cell MD Maximo lymphoma, unspecified body region (HCC) (Primary Dx) 05/03/2018 [facility] PERIPHERAL ANGIOS / MD Torey AORTOGRAM 05/03/2018 [facility] Acute deep vein Encounter MD Torey thrombosis (DVT) of proximal vein of lower extremity, unspecified laterality (HCC) 05/03/2018 Orders Only General Internal Medicine 03/22/2018 Telephone Anesthesiology Barbara, Follow-up Kylah Stout RN 03/21/2018 Anesthesia Event Julio Paul Jr., MD 03/21/2018 [facility] INSERTION,A-V GRAFT MD Torey 03/21/2018 [facility] Encounter MD Torey 03/14/2018 Hospital Pre-Admission Testing [facility] Encounter MD Torey 01/26/2018 Telephone Internal Medicine Eduardo Florian MD 01/24/2018 Refill Cardiology Eduardo Florian MD 01/23/2018 Outside Orders Naif Renee, TIMA (obstructive RENAL NURSE, COMMUNITY HEALTH EDUCATION COORDINATOR sleep apnea) 01/23/2018 Outside Orders Naif Renee, TIMA (obstructive RENAL NURSE, COMMUNITY HEALTH EDUCATION COORDINATOR sleep apnea) (Primary Dx) 01/23/2018 Outside Orders Niaf Renee, RENAL NURSE, COMMUNITY HEALTH EDUCATION COORDINATOR 01/18/2018 [facility] Chandra Young TIMA (obstructive sleep apnea); Encounter MD Maximo Peripheral t-cell lymphoma, not classified, lymph nodes of head, face, and neck (HCC) 01/14/2018 Outside Orders Adriana Gan TIMA (obstructive sleep apnea) (Primary Dx); M, RENAL NURSE, COMMUNITY HEALTH EDUCATION COORDINATOR Peripheral t-cell lymphoma, not classified, lymph nodes of head, face, and neck (HCC) 01/11/2018 Orders Only General Internal Medicine 01/05/2018 [facility] Cardiology Leila, End stage renal disease on dialysis (HCC); - Encounter MD Heena Sepsis, due to unspecified organism (HCC); 01/14/2018 [facility], Pseudomonas septicemia (HCC); MD Eduardo Bloodstream infection associated with central venous catheter, sequela; Rasheeda Henderson 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, face , or neck (HCC); MD Cassi ESRD (end stage renal disease) on dialysis (HCC); Hypertension, unspecified type; Bloodstream infection associated with central venous catheter, initial encounter; Essential hypertension; 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); Bloodstream infection associated with central venous catheter, subsequent encounter 10/08/2017 Hospital Chandra Young 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); Encounter MD Maximo Obstructive sleep apnea 09/29/2017 Orders Only Chandra Young TIMA (obstructive MD Maximo sleep apnea) (Primary Dx) 09/23/2017 Outside Orders Adriana Gan M, RENAL NURSE, COMMUNITY HEALTH EDUCATION COORDINATOR 09/23/2017 Orders Only Adriana Gan 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) (Primary Dx); M, RENAL NURSE, COMMUNITY HEALTH EDUCATION COORDINATOR Obstructive sleep apnea 08/24/2017 Abstract Transplant Mp Annalisaeyad 07/26/2017 Telephone Transplant Johana Gresham Kidney Transplant Pre-evaluation after 07/17/2017 Family History Medical History Relation Name Comments Hypertension Father Hypertension Mother Cancer Paternal Grandfather Relation Name Status Comments Father Mother Alive Paternal Grandfather Social History Tobacco Use Types Packs/Day Years Used Date Current Some Day Smoker Smokeless Tobacco: Former User Tobacco Cessation: Counseling Given: Yes Alcohol Use Drinks/Week oz/Week Comments No Sex Assigned at Date Recorded Not on file Job Start Date Occupation Industry Not on file Not on file Not on file Travel History Travel Start Travel End No recent travel history available. Last Filed Vital Signs Vital Sign Reading Time Taken Blood Pressure 140/92 07/18/2018 6:40 AM CDT Pulse 87 07/18/2018 6:40 AM CDT Temperature 36.5 C (97.7 F) 07/18/2018 6:40 AM CDT Respiratory Rate 18 07/18/2018 6:40 AM CDT Oxygen Saturation 97% 07/18/2018 6:40 AM CDT Inhaled Oxygen Concentration - - Weight 96.5 kg (212 lb 12.8 oz) 07/18/2018 6:40 AM CDT Height 188 cm (6' 2") 07/18/2018 6:40 AM CDT Body Mass Index 27.32 07/18/2018 6:40 AM CDT Plan of Treatment Date Type Specialty Care Team Description 07/19/2018 Hospital Encounter Kalen Carlos MD [address] [place] [address] [phone] 07/19/2018 Surgery Kalen Carlos MD BRONCHOSCOPY,ENDOBRONCH [address] I[address] ULTRASOUND (EBUS) 8A TRANSTRACH/ [place] [address] SAMPLING [phone] Implants Implanted Type Area 911 Operator Device Shelf Model / Identifier Expiration Serial / Date Lot [facility] Full Strlprep 10ml [id number] - [id number] Cement/Cliff Right: CHAVEZ: BIOSCI 08/02/2019 [id number] / Implanted: Qty: 1 on 03/21/2018 by Steve Horne MD ler/Adhesi Arm Upper / ve [id number] Grft Vasc Bovn Collagen 6x40 [id number] - [id number] Graft/Patc Right: ACTIVE MED DEV 02/05/2021 [id number] / Implanted: Qty: 1 on 03/21/2018 by Steve Horne MD h Arm Upper / [id number] Pwdr Cellerate Clgn 1gm Strl [id number] - [id number] Tissue Right: WOUND CARE 01/06/2020 [id number] / Implanted: Qty: 1 on 03/21/2018 by Steve Horne MD Graft/Subs Arm Upper [employer] / titute [id number] Procedures Procedure Name Priority Date/Time Associated Comments Diagnosis ABORH, MANUAL STAT 07/18/2018 7:38 Results for this AM CDT procedure are in the results section. CBC W/PLT COUNT & AUTO STAT 07/18/2018 7:14 Results for this DIFFERENTIAL AM CDT procedure are in the results section. TYPE AND SCREEN, Routine 07/18/2018 7:14 Results for this AUTOMATED AM CDT procedure are in the results section. APTT STAT 07/18/2018 7:14 Results for this AM CDT procedure are in the results section. PROTHROMBIN TIME/INR STAT 07/18/2018 7:14 Results for this AM CDT procedure are in the results section. CBC W/PLT COUNT & AUTO STAT 07/18/2018 7:14 Results for this DIFFERENTIAL AM CDT procedure are in the results section. COMPREHENSIVE STAT 07/18/2018 7:14 Results for this METABOLIC PANEL AM CDT procedure are in the results section. POCT-GLUCOSE METER Routine 07/18/2018 6:43 Results for this AM CDT procedure are in the results section. CARDIAC CATH REPORT - 05/19/2018 1:50 SCAN PM SUPPLIER RELATIONSHIP DIRECTOR PERIPHERAL ANGIOS / 05/03/2018 12:29 Arm swelling AORTOGRAM PM SUPPLIER RELATIONSHIP DIRECTOR ECG 12-LEAD Routine 05/03/2018 11:45 Results for this AM SUPPLIER RELATIONSHIP DIRECTOR procedure are in the results section. CBC W/PLT COUNT & AUTO Routine 05/03/2018 11:26 Results for this DIFFERENTIAL AM SUPPLIER RELATIONSHIP DIRECTOR procedure are in the results section. CBC W/PLT COUNT & AUTO Routine 05/03/2018 11:26 Results for this DIFFERENTIAL AM SUPPLIER RELATIONSHIP DIRECTOR procedure are in the results section. BASIC METABOLIC PANEL Routine 05/03/2018 11:26 Results for this (7) AM SUPPLIER RELATIONSHIP DIRECTOR procedure are in the results section. INSERTION,A-V GRAFT 03/21/2018 11:30 End stage renal AM SUPPLIER RELATIONSHIP DIRECTOR disease (HCC) Special Needs (BUDDY BLOCK) ME AN PERINEURAL CATH - NO Routine 03/21/2018 10:22 AM SUPPLIER RELATIONSHIP DIRECTOR Results for this CHARGE procedure are in the results section. POCT-POTASSIUM Routine 03/21/2018 9:31 AM SUPPLIER RELATIONSHIP DIRECTOR BUN AND CREATININE Routine 03/14/2018 11:32 AM SUPPLIER RELATIONSHIP DIRECTOR ELECTROLYTE PANEL Routine 03/14/2018 11:32 AM SUPPLIER RELATIONSHIP DIRECTOR HEMOGLOBIN Routine 03/14/2018 11:32 AM SUPPLIER RELATIONSHIP DIRECTOR POLYSOMNOGRAPHY REPORT - SCAN 02/13/2018 9:01 AM CDT POLYSOMNOGRAPHY REPORT - SCAN 01/24/2018 2:00 PM CDT RHYTHM STRIP - SCAN 01/23/2018 5:46 PM CDT ECHOCARDIOGRAM REPORT - SCAN 01/23/2018 5:46 PM CDT POLYSOMNOGRAPHY REPORT - SCAN 01/23/2018 5:46 PM CDT POLYSOMNOGRAPHY REPORT - SCAN 01/23/2018 5:46 PM CDT RHYTHM STRIP - SCAN 01/23/2018 5:46 PM CDT REPORT OF PROCEDURE - 01/23/2018 5:46 PM CDT ENDOSCOPY SCAN ECHOCARDIOGRAM REPORT - SCAN 01/23/2018 5:46 PM CDT RHYTHM STRIP - SCAN 01/23/2018 5:45 PM CDT RHYTHM STRIP - SCAN 01/23/2018 5:45 PM CDT RHYTHM STRIP - SCAN 01/23/2018 5:45 PM CDT RHYTHM STRIP - SCAN 01/23/2018 5:44 PM CDT RHYTHM STRIP - SCAN 01/23/2018 5:44 PM CDT REPORT OF PROCEDURE - 01/23/2018 5:44 PM CDT ENDOSCOPY SCAN RHYTHM STRIP - SCAN 01/23/2018 5:44 PM CDT PERIPHERAL VASCULAR REPORT - 01/23/2018 5:44 PM CDT SCAN RHYTHM STRIP - SCAN 01/23/2018 5:44 PM CDT INTRAOPERATIVE PATH REPORT - 01/23/2018 5:44 PM CDT SCAN POCT-GLUCOSE METER Routine 01/14/2018 1:04 PM CDT HEMODIALYSIS INPATIENT Routine 01/13/2018 9:57 PM CDT HEMODIALYSIS INPATIENT Routine 01/13/2018 9:57 PM CDT HEMODIALYSIS INPATIENT Routine 01/13/2018 7:16 PM CDT POCT-GLUCOSE METER Routine 01/13/2018 5:07 PM CDT VEIN MAPPING ARM/ARMS Routine 01/13/2018 1:34 PM CDT IR TUNNELED DIALYSIS CATHETER Routine 01/13/2018 12:02 PM CDT POCT-GLUCOSE METER Routine 01/13/2018 8:34 AM CDT CBC (HEMOGRAM ONLY) Routine 01/13/2018 5:05 AM CDT PT/APTT Routine 01/13/2018 5:05 AM CDT BASIC METABOLIC PANEL (7) Routine 01/13/2018 5:05 AM CDT POCT-GLUCOSE METER Routine 01/12/2018 10:20 PM CDT POCT-GLUCOSE METER Routine 01/12/2018 6:31 PM CDT POCT-GLUCOSE METER Routine 01/12/2018 12:14 PM CDT POCT-GLUCOSE METER Routine 01/12/2018 7:38 AM CDT POCT-GLUCOSE METER Routine 01/11/2018 9:02 PM CDT POCT-GLUCOSE METER Routine 01/11/2018 5:18 PM CDT ECG 12-LEAD Routine 01/11/2018 5:05 PM CDT Procedure Note - Interface, External Ris In - 01/11/2018 5:11 PM CDT Ventricular Rate 92 BPM Atrial Rate 92 BPM P-R Interval 170 ms QRS Duration 92 ms Q-T Interval 402 ms QTC Calculation(Bazett) 497 ms P [place] 50 degrees R [place] -16 degrees T [place] 82 degrees Normal sinus rhythm Septal infarct (cited on or before 11-JAN-2018) Abnormal ECG When compared with ECG of 25-JAN-2017 20:17, Serial changes of Septal infarct Present ECG 12-LEAD STAT 01/11/2018 5:05 PM CDT 2D ECHO W/ DOPPLER Routine 01/11/2018 2:04 PM CDT Results for this (CW/PW/COLOR) procedure are in the results section. POCT-GLUCOSE METER Routine 01/11/2018 12:16 PM CDT PT/APTT STAT 01/11/2018 10:59 AM CDT BASIC METABOLIC PANEL (7) Routine 01/11/2018 10:59 AM CDT POCT-GLUCOSE METER Routine 01/11/2018 7:46 AM CDT CBC W/PLT COUNT & AUTO Routine 01/11/2018 5:36 AM CDT Results for this DIFFERENTIAL procedure are in the results section. MAGNESIUM Routine 01/11/2018 5:36 AM CDT CBC W/PLT COUNT & AUTO Routine 01/11/2018 5:36 AM CDT Results for this DIFFERENTIAL procedure are in the results section. PHOSPHORUS Routine 01/11/2018 5:36 AM CDT CALCIUM, IONIZED Routine 01/11/2018 5:36 AM CDT POCT-GLUCOSE METER Routine 01/10/2018 9:32 PM CDT BASIC METABOLIC PANEL (7) Routine 01/10/2018 6:56 PM CDT BLOOD CULTURE Routine 01/10/2018 6:56 PM CDT POCT-GLUCOSE METER Routine 01/10/2018 5:36 PM CDT POCT-GLUCOSE METER Routine 01/10/2018 11:43 AM CDT POCT-GLUCOSE METER Routine 01/10/2018 7:58 AM CDT VANCOMYCIN LEVEL, RANDOM Routine 01/10/2018 12:42 AM CDT POCT-GLUCOSE METER Routine 01/09/2018 9:41 PM CDT POCT-GLUCOSE METER Routine 01/09/2018 6:19 PM CDT POCT-GLUCOSE METER Routine 01/09/2018 1:44 PM CDT POCT-GLUCOSE METER Routine 01/09/2018 8:33 AM CDT CBC W/PLT COUNT & AUTO Routine 01/09/2018 5:36 AM CDT Results for this DIFFERENTIAL procedure are in the results section. MAGNESIUM Routine 01/09/2018 5:36 AM CDT CBC W/PLT COUNT & AUTO Routine 01/09/2018 5:36 AM CDT Results for this DIFFERENTIAL procedure are in the results section. PHOSPHORUS Routine 01/09/2018 5:36 AM CDT CALCIUM, IONIZED Routine 01/09/2018 5:36 AM CDT BASIC METABOLIC PANEL (7) Routine 01/09/2018 5:36 AM CDT POCT-GLUCOSE METER Routine 01/08/2018 8:43 PM CDT POCT-GLUCOSE METER Routine 01/08/2018 5:34 PM CDT POCT-GLUCOSE METER Routine 01/08/2018 12:35 PM CDT POCT-GLUCOSE METER Routine 01/08/2018 8:57 AM CDT (CELLAVISION MANUAL DIFF) Routine 01/08/2018 4:44 AM CDT CBC W/PLT COUNT & AUTO Routine 01/08/2018 4:44 AM CDT Results for this DIFFERENTIAL procedure are in the results section. MAGNESIUM Routine 01/08/2018 4:44 AM CDT CBC W/PLT COUNT & AUTO Routine 01/08/2018 4:44 AM CDT Results for this DIFFERENTIAL procedure are in the results section. PHOSPHORUS Routine 01/08/2018 4:44 AM CDT CALCIUM, IONIZED Routine 01/08/2018 4:44 AM CDT VANCOMYCIN LEVEL, RANDOM Routine 01/08/2018 4:44 AM CDT PROTHROMBIN TIME/INR Routine 01/08/2018 4:44 AM CDT HEPATIC FUNCTION PANEL Routine 01/08/2018 4:44 AM CDT BASIC METABOLIC PANEL (7) Routine 01/08/2018 4:44 AM CDT POCT-GLUCOSE METER Routine 01/07/2018 9:16 PM CDT IR TUNNELED CATHETER REMOVAL STAT 01/07/2018 7:00 PM CDT CATHETER TIP CULTURE Routine 01/07/2018 7:00 PM CDT POCT-GLUCOSE METER Routine 01/07/2018 5:05 PM CDT SPUTUM CULTURE + GRAM STAIN Routine 01/07/2018 4:22 PM CDT LACTIC ACID, VENOUS Routine 01/07/2018 3:18 PM CDT HEMODIALYSIS INPATIENT Routine 01/07/2018 1:49 PM CDT POCT-GLUCOSE METER Routine 01/07/2018 1:35 PM CDT PHOSPHORUS Routine 01/07/2018 9:49 AM CDT MAGNESIUM Routine 01/07/2018 9:49 AM CDT HEPATIC FUNCTION PANEL Routine 01/07/2018 9:49 AM CDT BASIC METABOLIC PANEL (7) Routine 01/07/2018 9:49 AM CDT POCT-GLUCOSE METER Routine 01/07/2018 7:46 AM CDT HEPATITIS B SURFACE ANTIGEN Routine 01/07/2018 4:41 AM CDT VANCOMYCIN LEVEL, RANDOM Routine 01/07/2018 4:41 AM CDT VITAMIN D, 25-HYDROXY Routine 01/07/2018 4:41 AM CDT CALCIUM, IONIZED Routine 01/07/2018 4:41 AM CDT PTH, INTACT Routine 01/07/2018 4:41 AM CDT PROTHROMBIN TIME/INR Routine 01/07/2018 4:41 AM CDT POCT-GLUCOSE METER Routine 01/06/2018 9:03 PM CDT BLOOD CULTURE Routine 01/06/2018 8:43 PM CDT BLOOD CULTURE Routine 01/06/2018 8:16 PM CDT URINALYSIS W/ MICROSCOPIC Routine 01/06/2018 5:28 PM CDT PROCALCITONIN Routine 01/06/2018 5:04 PM CDT PHOSPHORUS Routine 01/06/2018 5:04 PM CDT XR CHEST 1 VIEW Routine 01/06/2018 10:43 AM CDT Results for this PORTABLE/BEDSIDE procedure are in the results section. US RENAL COMPLETE Routine 01/06/2018 8:05 AM CDT LACTIC ACID, VENOUS STAT 01/06/2018 6:27 AM CDT (CELLAVISION MANUAL DIFF) Routine 01/06/2018 3:30 AM CDT CBC W/PLT COUNT & AUTO Routine 01/06/2018 3:30 AM CDT Results for this DIFFERENTIAL procedure are in the results section. CBC W/PLT COUNT & AUTO Routine 01/06/2018 3:30 AM CDT Results for this DIFFERENTIAL procedure are in the results section. PROTHROMBIN TIME/INR Routine 01/06/2018 3:30 AM CDT HEPATIC FUNCTION PANEL Routine 01/06/2018 3:30 AM CDT BASIC METABOLIC PANEL (7) Routine 01/06/2018 3:30 AM CDT BLOOD CULTURE Routine 01/06/2018 3:30 AM CDT after 07/17/2017 Results ABORH, manual (07/18/2018 7:38 AM CDT) ABO Grouping B [facility] Rh Factor POS [facility] Specimen Blood Performing Organization Address City/[facility]/Zipcode Phone Number [facility] [address] [place] [address] Type and screen, automated (07/18/2018 7:14 AM CDT) ABO/RH AUTOMATED (BEAKER) B POSITIVE [facility] Ab Scrn NEGATIVE [facility] Specimen Blood Performing Organization Address City/[facility]/Zipcode Phone Number [facility] [address] [place] [address] CBC with platelet count + automated diff (07/18/2018 7:14 AM CDT)Only the most recent of6 resultswithin the time period is included. WBC 6.4 3.5 - 10.5 K/L [facility] RBC 3.65 (L) 4.63 - 6.08 M/L [facility] Hemoglobin 10.2 (L) 13.7 - 17.5 GM/DL [facility] Hematocrit 33.6 (L) 40.1 - 51.0 % [facility] MCV 92.1 79.0 - 92.2 fL [facility] MCH 27.9 25.7 - 32.2 pg [facility] MCHC 30.4 (L) 32.3 - 36.5 GM/DL [facility] RDW 15.6 (H) 11.6 - 14.4 % [facility] Platelets 214 150 - 450 K/CU MM [facility] MPV 10.2 9.4 - 12.4 fL [facility] nRBC 0 0 - 0 /100 WBC [facility] % Neutros 63 % [facility] % Lymphs 19 % [facility] % Monos 14 % [facility] % Eos 3 % [facility] % Baso 1 % [facility] # Neutros 4.03 1.78 - 5.38 K/L [facility] # Lymphs 1.24 (L) 1.32 - 3.57 K/L [facility] # Monos 0.87 (H) 0.30 - 0.82 K/L [facility] # Eos 0.18 0.04 - 0.54 K/L [facility] # Baso 0.03 0.01 - 0.08 K/L [facility] Immature Granulocytes-Relative 1 0 - 1 % [facility] Specimen Blood Performing Organization Address City/[facility] Cent[facility] Phone Number [address] [address] [place] aPTT (07/18/2018 7:14 AM CDT) PTT 45.9 (H) 22.5 - 36.0 seconds [facility] Specimen Blood Performing Organization Address [facility] Centercoin Phone Number [address] [address] [phone] [place] Prothrombin time/INR (07/18/2018 7:14 AM CDT)Only the most recent of4 resultswithin the time period is included. Protime 13.7 11.7 - 14.7 seconds [facility] INR 1.0 <=5.9 [facility] Specimen Blood Narrative Performed At RECOMMENDED COUMADIN/WARFARIN INR THERAPY [facility] RANGES STANDARD DOSE: 2.0 - 3.0 Includes: PROPHYLAXIS for venous thrombosis, systemic embolization; TREATMENT for venous thrombosis and/or pulmonary embolus. HIGH RISK: Target INR is 2.5-3.5 for patients with mechanical heart valves. Performing Organization Address [facility] Center[facility] Phone Number [address] [address] [phone] [place] Comprehensive metabolic panel (07/18/2018 7:14 AM CDT) Protein, Total 7.4 6.0 - 8.3 gm/dL [facility] Albumin 4.0 3.5 - 5.0 g/dL [facility] Alkaline Phosphatase 36 (L) 40 - 150 U/L [facility] Total Bilirubin 0.4 0.2 - 1.2 mg/dL [facility] Sodium 139 136 - 145 meq/L [facility] Potassium 4.4 3.5 - 5.1 meq/L [facility] Chloride 105 98 - 107 meq/L [facility] CO2 22 22 - 29 meq/L [facility] BUN 46 (H) 7 - 21 mg/dL [facility] Creatinine 9.83 (H) 0.57 - 1.25 mg/dL [facility] Glucose 92 70 - 105 mg/dL [facility] Calcium 8.6 8.4 - 10.2 mg/dL [facility] AST 15 5 - 34 U/L [facility] ALT 17 6 - 55 U/L [facility] EGFR 7Comment: ESTIMATED GFR mL/min/1.[address] [facility] IS NOT ACCURATE [facility] CREATININE CLEARANCE IN PREDICTING GLOMERULAR FILTRATION RATE. ESTIMATED GFR IS NOT APPLICABLE FOR DIALYSIS PATIENTS. Specimen Blood Performing Organization Address City/[facility] Centercoin Phone Number [address] [address] [phone] [place] POC-Glucose meter (07/18/2018 6:43 AM CDT)Only the most recent of29 resultswithin the time period is included. POC-Glucose Meter 106Comment: TESTED AT 70 - 110 mg/dL [address] [address] Specimen Blood Performing Organization Address [facility] Phone Number [address] [address] [place] CARDIAC CATH REPORT - SCAN (05/19/2018 1:50 PM SUPPLIER RELATIONSHIP DIRECTOR) Narrative Performed At ECG 12 lead (05/03/2018 11:45 AM SUPPLIER RELATIONSHIP DIRECTOR)Only the most recent of2 resultswithin the time period is included. Narrative Performed At Ventricular Rate 69 BPM GE MUSE Atrial Rate 69 BPM P-R Interval 172 ms QRS Duration 92 ms Q-T Interval 448 ms QTC Calculation(Bazett) 480 ms P [place] 60 degrees R [place] -49 degrees T [place] 125 degrees Normal sinus rhythm Left anterior fascicular block Septal infarct , age undetermined T wave abnormality, consider lateral ischemia Abnormal ECG No previous ECGs available Confirmed by MD Chapman Roberto ([id number]) on 05/04/2018 1:50:30 PM Procedure Note Interface, External Ris In - 05/04/2018 1:50 PM SUPPLIER RELATIONSHIP DIRECTOR Ventricular Rate 69 BPM Atrial Rate 69 BPM P-R Interval 172 ms QRS Duration 92 ms Q-T Interval 448 ms QTC Calculation(Bazett) 480 ms P [place] 60 degrees R [place] -49 degrees T [place] 125 degrees Normal sinus rhythm Left anterior fascicular block Septal infarct , age undetermined T wave abnormality, consider lateral ischemia Abnormal ECG No previous ECGs available Confirmed by MD Chapman Roberto ([id number]) on 05/04/2018 1:50:30 PM Performing Organization Address City/[facility] Centercode Phone Number [employer] Basic Metabolic Panel (05/03/2018 11:26 AM SUPPLIER RELATIONSHIP DIRECTOR)Only the most recent of8 resultswithin the time period is included. Sodium 139 136 - 145 meq/L [facility] Potassium 4.2 3.5 - 5.1 meq/L [facility] Chloride 104 98 - 107 meq/L [facility] CO2 22 22 - 29 meq/L [facility] BUN 61 (H) 7 - 21 mg/dL [facility] Creatinine 10.74 (H) 0.57 - 1.25 mg/dL [facility] Glucose 100 70 - 105 mg/dL [facility] Calcium 8.8 8.4 - 10.2 mg/dL [facility] EGFR 6Comment: ESTIMATED GFR IS mL/min/1.73 sq m [facility] NOT ACCURATE CREATININE MEDICAL CENTER CLEARANCE IN PREDICTING GLOMERULAR FILTRATION RATE. ESTIMATED GFR IS NOT APPLICABLE FOR DIALYSIS PATIENTS. Specimen Blood Performing Organization Address City/[facility] Phone Number [address] [place] [address] CENTER ANESTHESIA PERIPHERAL BLOCK (03/21/2018 10:22 AM SUPPLIER RELATIONSHIP DIRECTOR) Narrative Performed At Shon Begum MD 03/21/2018 10:23 AM Peripheral Block Patient location during procedure: pre-procedure Start time: 03/21/2018 10:03 AM End time: 03/21/2018 10:08 AM Procedure Indication: procedure for pain, at surgeon's request and post-op pain management Preanesthetic Checklist Completed: patient identified, pre-op evaluation, timeout performed, IV checked, risks and benefits discussed, monitors and equipment checked, anesthesia consent given, prep site dry prior to draping and maximum sterile barriers were used: cap, mask, sterile gown, sterile gloves, and large sterile sheet Staffing Anesthesiologist: Shon Begum MD Performed: personally Peripheral Nerve Block Patient position: left lateral decubitus Prep: chlorhexidine gluconate and isopropyl alcohol Patient monitoring: EKG, HR, BP and SpO2 Laterality: right Block type: supraclavicular Injection technique: single-shot ultrasound guided - in plane, prescan was completed prior to procedure and needle tip was visualized throughout the entire procedure ultrasound image saved Block Dose: ropivicaine and single-shot Infiltration strength: 0.5 % Dose: 23 mL Needle Needle type: pajunk nanoline. Needle gauge: 17 G Needle length: 100 mm Needle Localization:US guided Catheter type: open end Catheter size: 19 G Hydrodissection? yes Dressing: Occlusive dressing applied in sterile fashion and Dermabond applied at the catheter insertion site Assessment Injection assessment: incremental injection and negative aspiration for heme LOC: Sedated with meaningful contact supplemental oxygen used.no evidence of intravascular injection and no heart rate changeno paresthesia patient had no immediate complications and patient tolerated the procedure well Procedure Note Shon Begum MD - 03/21/2018 10:22 AM SUPPLIER RELATIONSHIP DIRECTOR Peripheral Block Patient location during procedure: pre-procedure Start time: 03/21/2018 10:03 AM End time: 03/21/2018 10:08 AM Procedure Indication: procedure for pain, at surgeon's request and post-op pain management Preanesthetic Checklist Completed: patient identified, pre-op evaluation, timeout performed, IV checked , risks and benefits discussed, monitors and equipment checked, anesthesia consent given, prep site dry prior to draping and maximum sterile barriers were used: cap, mask, sterile gown, sterile gloves, and large sterile sheet Staffing Anesthesiologist: Shon Begum MD Performed: personally Peripheral Nerve Block Patient position: left lateral decubitus Prep: chlorhexidine gluconate and isopropyl alcohol Patient monitoring: EKG, HR, BP and SpO2 Laterality: right Block type: supraclavicular Injection technique: single-shot ultrasound guided - in plane, prescan was completed prior to procedure and needle tip was visualized throughout the entire procedure ultrasound image saved Block Dose: ropivicaine and single-shot Infiltration strength: 0.5 % Dose: 23 mL Needle Needle type: pajunk nanoline. Needle gauge: 17 G Needle length: 100 mm Needle Localization: US guided Catheter type: open end Catheter size: 19 G Hydrodissection? yes Dressing: Occlusive dressing applied in sterile fashion and Dermabond applied at the catheter insertion site Assessment Injection assessment: incremental injection and negative aspiration for heme LOC: Sedated with meaningful contact supplemental oxygen used.no evidence of intravascular injection and no heart rate changeno paresthesia patient had no immediate complications and patient tolerated the procedure well POC-Potassium (03/21/2018 9:31 AM SUPPLIER RELATIONSHIP DIRECTOR) POC-Potassium 4.2Comment: TESTED AT [facility] 3.6 - 5.5 meq/L [address] [address] Specimen Blood Performing Organization Address [facility] Phone Number [address] [address] CENTER BUN and Creatinine (03/14/2018 11:32 AM SUPPLIER RELATIONSHIP DIRECTOR) BUN 44 (H) 7 - 21 mg/dL [facility] Creatinine 10.90 (H) 0.57 - 1.25 mg/dL [facility] EGFR 6Comment: ESTIMATED GFR IS mL/min/1.73 sq m [facility] NOT ACCURATE CREATININE [facility] CENTER CLEARANCE IN PREDICTING GLOMERULAR FILTRATION RATE. ESTIMATED GFR IS NOT APPLICABLE FOR DIALYSIS PATIENTS. Specimen Blood Performing Organization Address [facility] Phone Number [address] [address] [place] Hemoglobin (03/14/2018 11:32 AM SUPPLIER RELATIONSHIP DIRECTOR) Hemoglobin 12.8 (L) 13.7 - 17.5 GM/DL [facility] Specimen Blood Performing Organization Address City/State/Zipcode Phone Number [facility] [address] [place] [address] [place] Electrolytes (03/14/2018 11:32 AM SUPPLIER RELATIONSHIP DIRECTOR) Sodium 139 136 - 145 meq/L [facility] Potassium 4.2 3.5 - 5.1 meq/L [facility] Chloride 100 98 - 107 meq/L [facility] CO2 27 22 - 29 meq/L [facility] Specimen Blood Performing Organization Address City/State/Zipcode Phone Number [address] [address] [place] POLYSOMNOGRAPHY REPORT - SCAN (02/13/2018 9:01 AM CDT) Narrative Performed At POLYSOMNOGRAPHY REPORT - SCAN (01/24/2018 2:00 PM CDT) Narrative Performed At RHYTHM STRIP - SCAN (01/23/2018 5:46 PM CDT)Only the most recent of9 resultswithin the time period is included. Narrative Performed At ECHOCARDIOGRAM REPORT - SCAN (01/23/2018 5:46 PM CDT) Narrative Performed At POLYSOMNOGRAPHY REPORT - SCAN (01/23/2018 5:46 PM CDT) Narrative Performed At POLYSOMNOGRAPHY REPORT - SCAN (01/23/2018 5:46 PM CDT) Narrative Performed At EKG-SCANNED (01/23/2018 5:46 PM CDT)Only the most recent of2 resultswithin the time period is included. Narrative Performed At ECHOCARDIOGRAM REPORT - SCAN (01/23/2018 5:46 PM CDT) Narrative Performed At PERIPHERAL VASCULAR REPORT - SCAN (01/23/2018 5:44 PM CDT) Narrative Performed At INTRAOPERATIVE PATH REPORT - SCAN (01/23/2018 5:44 PM CDT) Narrative Performed At Vein Mapping Arm/Arms (01/13/2018 1:34 PM CDT) Ejection Fraction [facility] ECHO HEART[facility] CPACS Impressions Performed At Right Impression [facility] ECHO HEART[facility] CPACS 1. There is a partial echolucent deep venous obstruction in the jugular vein. 2. There is no deep venous obstruction in the subclavian, axillary, brachial, radial or ulnar veins. 3. There is total echolucent superficial venous obstruction in the forearm cephalic vein. 4. There is no superficial venous obstruction in the basilic vein. 5. The subclavian, axillary, brachial, radial and ulnar arteries are patent with normal triphasic Doppler waveforms throughout. Left Impression 1. There is no deep venous obstruction in the jugular, axillary, brachial, radial or ulnar veins. 2. The subclavian vein and subclavian artery are not visualized due to invasive lines. 3. There is partial echolucent superficial venous obstruction in the cephalic vein at the antecubital fossa. 4. There is no superficial venous obstruction in the basilic vein. 5. The subclavian, axillary, brachial, radial and ulnar arteries are patent with normal triphasic Doppler waveforms throughout. Conclusions Summary Arterial duplex imaging, venous duplex imaging and compression of both upper extremities was performed. All arteries and veins were adequately visualized except as noted above. The arteries were patent with normal triphasic Doppler waveforms bilaterally. The right venous system was positive for deep and superficial venous thrombosis. The left venous system was positive for superficial venous thrombosis. Superficial venous measurements are documented below. Signature Velocities are measured in cm/s ; Diameters are measured in cm Cephalic Mapping Right Left + + + + + + + + !Location ! !AP Diam!Trans Diam ! !AP Diam!Trans Diam ! + + + + + + + + !Cephalic at Prox UA ! ! !0.14 ! ! !0.22 ! + + + + + + + + !Cephalic at Mid UA ! ! !0.12 ! ! !0.14 ! + + + + + + + + !Cephalic at Dist UA ! ! !0.14 ! ! !0.17 ! + + + + + + + + !Cephalic at Prox LA ! ! !0.1 ! + + +-- + + !Cephalic at Mid LA ! ! !0.09 ! + + +-- + + !Cephalic at Dist LA ! ! !0.09 ! + + +-- + + Basilic Mapping Right Left + + + + + + + + !Location ! !AP Diam!Trans Diam ! !AP Diam!Trans Diam ! + + + + + + + + !Basilic at Prox UA ! ! !0.2 ! ! !0.29 ! + + + + + + + + !Basilic at Mid UA ! ! !0.22 ! ! !0.23 ! + + + + + + + + !Basilic at Dist UA ! ! !0.25 ! ! !0.22 ! + + + + + + + + !Basilic at Prox LA ! ! !0.21 ! ! !0.16 ! + + + + + + + + !Basilic at Mid LA ! ! !0.18 ! ! !0.16 ! + + + + + + + + !Basilic at Dist LA ! ! !0.15 ! ! !0.22 ! + + + + + + + + Narrative Performed At PV LAB - Upper Extremities Vein Mapping [facility]ART[facility] Demographics Patient Name NALDO ANDREA Date of Study 01/13/2018 JULIO [id number] Age 62 Visit Number [id number] Male Accession Number [id number] of 1955 RhettKhalida Cheng Room Number [id number] Physician SonographerSilva [place]oving[place]. Anuja Hillman T Physician , RPVI Procedure Type of Study: Veins: Upper Extremity Vein Mapping, VEIN MAPPING ARM/ARMS. Indications for Study:ESRD. Patient Status:Routine. Study Location:Vascular Lab. Technical Quality:Adequate visualization. - Results were reported to:ELEONORA Landers @ 16:19. Risk Factors History of Disease + +----+ + !Diagnosis !Date!Comments ! + +----+ + !History/Risk Factors: !!HTN,ESRD, Lymphoma, Former Smoker ! + +----+ + Procedure Note Interface, External Ris In - 01/13/2018 6:14 PM CDT [facility] - Upper Extremities Vein Mapping Demographics Patient Name NALDO ANDREA Date of Study 01/13/2018 JULIO Age 62 Visit Number [id number] Gender Male Accession Number [id number] Date of 1955 Referring Khalida Cheng Room Number [id number] Physician Package Yarns Drying Machine Operator Anuja Arnett T Physician , [facility] Procedure Type of Study: Veins: Upper Extremity Vein Mapping, VEIN MAPPING ARM/ARMS. Indications for Study:ESRD. Patient Status:Routine. Study Location:Vascular Lab. Technical Quality:Adequate visualization. - Results were reported to:ELEONORA Ladners @ 16:19. Risk Factors History of Disease + +----+ + !Diagnosis !Date!Comments ! + +----+ + !History/Risk Factors: ! !HTN,ESRD, Lymphoma, Former Smoker ! + +----+ + Impressions Right Impression 1. There is a partial echolucent deep venous obstruction in the jugular vein. 2. There is no deep venous obstruction in the subclavian, axillary, brachial, radial or ulnar veins. 3. There is total echolucent superficial venous obstruction in the forearm cephalic vein. 4. There is no superficial venous obstruction in the basilic vein. 5. The subclavian, axillary, brachial, radial and ulnar arteries are patent with normal triphasic Doppler waveforms throughout. Left Impression 1. There is no deep venous obstruction in the jugular, axillary, brachial, radial or ulnar veins. 2. The subclavian vein and subclavian artery are not visualized due to invasive lines. 3. There is partial echolucent superficial venous obstruction in the cephalic vein at the antecubital fossa. 4. There is no superficial venous obstruction in the basilic vein. 5. The subclavian, axillary, brachial, radial and ulnar arteries are patent with normal triphasic Doppler waveforms throughout. Conclusions Summary Arterial duplex imaging, venous duplex imaging and compression of both upper extremities was performed. All arteries and veins were adequately visualized except as noted above. The arteries were patent with normal triphasic Doppler waveforms bilaterally. The right venous system was positive for deep and superficial venous thrombosis. The left venous system was positive for superficial venous thrombosis. Superficial venous measurements are documented below. Signature Velocities are measured in cm/s ; Diameters are measured in cm Cephalic Mapping Right Left + + + + + + +--- + !Location ! !AP Diam !Trans Diam ! !AP Diam ! Trans Diam ! + + + + + + +--- + !Cephalic at Prox UA ! ! !0.14 ! ! ! 0.22 ! + + + + + + +--- + !Cephalic at Mid UA ! ! !0.12 ! ! ! 0.14 ! + + + + + + +--- + !Cephalic at Dist UA ! ! !0.14 ! ! ! 0.17 ! + + + + + + +--- + !Cephalic at Prox LA ! ! ! 0.1 ! + + + +-- + !Cephalic at Mid LA ! ! ! 0.09 ! + + + +-- + !Cephalic at Dist LA ! ! ! 0.09 ! + + + +-- + Basilic Mapping Right Left + + + + + + +--- + !Location ! !AP Diam !Trans Diam ! !AP Diam ! Trans Diam ! + + + + + + +--- + !Basilic at Prox UA ! ! !0.2 ! ! ! 0.29 ! + + + + + + +--- + !Basilic at Mid UA ! ! !0.22 ! ! ! 0.23 ! + + + + + + +--- + !Basilic at Dist UA ! ! !0.25 ! ! ! 0.22 ! + + + + + + +--- + !Basilic at Prox LA ! ! !0.21 ! ! ! 0.16 ! + + + + + + +--- + !Basilic at Mid LA ! ! !0.18 ! ! ! 0.16 ! + + + + + + +--- + !Basilic at Dist LA ! ! !0.15 ! ! ! 0.22 ! + + + + + + +--- + Performing Organization Address City/State/Zipcode Phone Number [facility]CHO [facility]ART[facility] IR Tunneled Catheter Insertion (01/13/2018 12:02 PM CDT) Narrative Performed At FINAL REPORT Bac[facility] Tunneled dialysis catheter insertion. History: Renal failure. Modality: Sonography and fluoroscopy. Sedation: Moderate sedation was administered. 2 mg of Versed [id number] mcg of fentanyl IV was used for moderate sedation monitored under my direction. Total intra-service time of sedation [id number]. The patient's vital signs were monitored throughout the procedure and recorded in the patient's medical record by the nurse. Supervisor Of Guidance And Testing:Dana Hill Survey Worker:None. Approach: Left internal jugular vein Estimated blood loss:< 5 cc. Specimen: None. Fluoroscopy Time: 4.2 min. Dose (Ka,r): 73.4 mGy. Technique: Informed written consent was obtained.Discussion [...] gown for performing radiologist and scrub technologist. Initial ultrasound images demonstrate partially thrombosed right internal jugular vein. The right internal jugular vein was punctured under direct real-time ultrasound guidance with a micropuncture needle.However, a 0.018 wire could not be advanced centrally. The inner 3 Fijian micropuncture sheath was placed and contrast injected demonstrating occlusion of the right internal jugular vein with collateral veins within the right neck/chest. Subsequently, left neck and chest were prepped in sterile fashion. Initial ultrasound images demonstrate patent and compressible left internal jugular vein. The left internal jugular vein was punctured under real-time ultrasound guidance a micropuncture needle. A 0.018 inch wire was placed through the needle into the right atrium. A 4 Fijian micropuncture sheath was placed and a 0.035 wire advanced into the IVC.A subcutaneous tunnel was created in the left anterior chest wall by blunt dissection.A 23 cm tip to cuff 15.5 Fijian Duraflow 2 catheter was brought through the tunnel. The vessel tract was serially dilated over a J-wire. A peel-away sheath was placed in the left IJ vein and the catheter was advanced through the sheath, with its distal tip terminating in the right atrium.The peel-away sheath was removed. The ports were flushed and aspirated easily following placement.The catheter was sutured to the skin with 2-0 proline to secure its placement. A resorbable suture is placed at the catheter exit site. The small jugular incision site was closed using Darvon. Vital signs were monitored throughout the procedure by a nurse, and remained stable.The patient tolerated the procedure well and left the department in the same condition. Results:Spot radiograph of the chest demonstrates the new dialysis catheter to lie in the expected position with its tip overlying the superior right atrium. Impression: Successful, uncomplicated placement of a left internal jugular tunneled dialysis catheter using sonographic and fluoroscopic guidance and conscious sedation. Signed: Jeovany Hill MD Report Verified Date/Time:01/13/2018 18:19:33 Reading Location: [place] [address] Angio Body Reading Room Procedure Note Interface, External Ris In - 01/13/2018 6:21 PM CDT FINAL REPORT Tunneled dialysis catheter insertion. History: Renal failure. Modality: Sonography and fluoroscopy. Sedation: Moderate sedation was administered. 2 mg of Versed and 100 mcg of fentanyl IV was used for moderate sedation monitored under my direction. Total intra-service time of sedation was 30 minutes. The patient's vital signs were monitored throughout the procedure and recorded in the patient's medical record by the nurse. Supervisor Of Guidance And Testing: Dana [place] Survey Worker: None. Approach: Left internal jugular vein Estimated blood loss: < 5 cc. Specimen: None. Fluoroscopy Time: 4.2 min. Dose (Ka,r): 73.4 mGy. Technique: Informed written consent was obtained. [...] gown for performing radiologist and scrub technologist. Initial ultrasound images demonstrate partially thrombosed right internal jugular vein. The right internal jugular vein was punctured under direct real-time ultrasound guidance with a micropuncture needle. However, a 0.018 wire could not be advanced centrally. The inner 3 Fijian micropuncture sheath was placed and contrast injected demonstrating occlusion of the right internal jugular vein with collateral veins within the right neck/chest. Subsequently, left neck and chest were prepped in sterile fashion. Initial ultrasound images demonstrate patent and compressible left internal jugular vein. The left internal jugular vein was punctured under real-time ultrasound guidance a micropuncture needle. A 0.018 inch wire was placed through the needle into the right atrium. A 4 Fijian micropuncture sheath was placed and a 0.035 wire advanced into the IVC. A subcutaneous tunnel was created in the left anterior chest wall by blunt dissection. A 23 cm tip to cuff 15.5 Fijian Duraflow 2 catheter was brought through the tunnel. The vessel tract was serially dilated over a J-wire. A peel-away sheath was placed in the left IJ vein and the catheter was advanced through the sheath, with its distal tip terminating in the right atrium. The peel-away sheath was removed. The ports were flushed and aspirated easily following placement. The catheter was sutured to the skin with 2-0 proline to secure its placement. A resorbable suture is placed at the catheter exit site. The small jugular incision site was closed using Darvon. Vital signs were monitored throughout the procedure by a nurse, and remained stable. The patient tolerated the procedure well and left the department in the same condition. Results: Spot radiograph of the chest demonstrates the new dialysis catheter to lie in the expected position with its tip overlying the superior right atrium. Impression: Successful, uncomplicated placement of a left internal jugular tunneled dialysis catheter using sonographic and fluoroscopic guidance and conscious sedation. Signed: Jeovany Hill MD Report Verified Date/Time: 01/13/2018 18:19:33 Reading Location: [facility] P048 Angio Body Reading Room Performing Organization Address City/State/Zipcode Phone Number GE RIS PT/aPTT (01/13/2018 5:05 AM CDT)Only the most recent of2 resultswithin the time period is included. Protime 14.3 11.7 - 14.7 seconds [facility] INR 1.1 <=5.9 [facility] PTT 33.1 22.5 - 36.0 seconds [facility] Specimen Blood - Line, Venous Narrative Performed At [facility] RECOMMENDED COUMADIN/WARFARIN INR THERAPY RANGES STANDARD DOSE: 2.0 - 3.0 Includes: PROPHYLAXIS for venous thrombosis, systemic embolization; TREATMENT for venous thrombosis and/or pulmonary embolus. HIGH RISK: Target INR is 2.5-3.5 for patients with mechanical heart valves. Performing Organization Address City/[facility]/Zipcode Phone Number [address] [address] [phone] CENTER CBC (Hemogram only) (01/13/2018 5:05 AM CDT) WBC 9.6 3.5 - 10.5 K/L [facility] RBC 3.56 (L) 4.63 - 6.08 M/L [facility] Hemoglobin 10.0 (L) 13.7 - 17.5 GM/DL [facility] Hematocrit 31.6 (L) 40.1 - 51.0 % [facility] MCV 88.8 79.0 - 92.2 fL [facility] MCH 28.1 25.7 - 32.2 pg [facility] MCHC 31.6 (L) 32.3 - 36.5 GM/DL [facility] RDW 14.6 (H) 11.6 - 14.4 % [facility] Platelets 411 150 - 450 K/CU MM [facility] MPV 10.2 9.4 - 12.4 fL [facility] nRBC 0 0 - 0 /100 WBC [facility] Specimen Blood - Line, Venous Performing Organization Address City/State/Zipcode Phone Number [facility] [address] [place] [address] [phone] CENTER 2D Echo W/Doppler(CW/PW/Color) (01/11/2018 2:04 PM CDT) Ejection Fraction [facility]ART[facility] Narrative Performed At Transthoracic Echocardiography Report (TTE) [facility] Demographics Patient NameMONALDO MORIN Date of Study 01/11/2018 GenderMale Visit [id number] Number [id number] Number Date of 1955 Referring Physician PATRICK Tang Age 62 year(s) Package Yarns Drying Machine Operator Aleja Han [facility] Interpreting Genie Rodriguez MD FellowAlexandAMY Bishop FEL Procedure Type of Study TTE procedure:2DECHO W DOPPLER(CW/PW/COLOR) (Routine) Indications:Bacteremia and Palpitations. Clinical History ESRD;SEPSIS;HTN HGB 9.9 HCT 31.8 % Height: 74 inches Weight: 104.33 kg (230 lbs) BSA: 2.31 m^2 BMI: 29.53 kg/m^2 HR: 71 bpm BP: 154/98 mmHg Summary 1. All of the LV segments contract normally . LVEF by Winkler's method of disk assessment is normal (60%) . 2. Stage I diastolic dysfunction. Unable to estimate peak systolic PA pressure. 3. There is constant flow from the IVC into the RA, suggesting low-normal CVP (0-5 mmHg). Previous Study In comparison with the prior exam on 02/27/2017 there are no significant changes. Signature Findings Rhythm/BPRegular sinus rhythm during the exam. Left Ventricle The left ventricle is chamber size (by vol index) is normal (male - LVED vol - 34-74ml/m2). LV septal thickness is [id number] in creased. LV posterior wall thickness is mo derately increased. Al l of the LV segments contract normally . LV EF by Winkler's method of disk assessment is no rmal (60%) . St age I diastolic dysfunction. Left AtriumLA size is normal (16-34 ml/m2) . Right VentricleThe right ventricular chamber size and systolic fu nction are within normal limits. Right Atrium RA size is normal. Aortic Valve Normal AoV structure and function. Mitral Valve Normal MV structure and function. Tricuspid ValveNormal TV structure and function. Un able to estimate peak systolic PA pressure; in adequate TR velocity signal. Pulmonic Valve Normal PV structure and function by limited views an d Doppler. AortaAortic root size (SInus of Valsalva diameter and pr oximal ascending aorta) is normal. PericardiumA trivial-small pericardial effusion is noted. IVC/SVC/PA/PV/PleuralThe inferior vena cava size is normal. Th ere is constant flow from the IVC into the RA, lynn ggesting low-normal CVP (0-5 mmHg). Chambers/Structures Left Atrium LA Volume: 66.83 ml LA Area: 20.73 cm^2 LA Vol. Index: 29 ml/m^2 Left Ventricle LVIDd: 4.93 cm LVEDV:96.6 ml LVIDs: 3.24 cm LVESV:42.69 ml LV Septum Diastolic: 1.59 cm LVEF 2D Cube: 55.7 % LV Septum Systolic: 2.11 cm LV PW Diastolic: 1.38 cm LV FS: 34.3 % LV PW Systolic: 2.15 cm LVEDV Winkler's:110.29 mlLVEDVI: 48 ml/m^2 LVESV Winkler's:35.95 ml LVESVI: 16 ml/m^2 LVEF Winkler's: 67.4 % LVOT Diameter: 2.3 cm LVEF: 55.8 % Aorta Ao Root S of Velma.: 3.18 cmAscending Aorta: 3.31 cm Doppler/Quantitative Measurements Mitral Valve MV Peak E-Wave: 0.62 m/sMV Peak A-Wave: 0.84 m/s E/A Ratio: 0.74 Peak Gradient: 1.54 mmHg Deceleration Time: 208.4 msec MV Pawan. Peak: Tissue Doppler E' Septal Velocity: 0.06 m/s Aortic Valve Peak Velocity: 1.57 m/sMean Velocity: 1 m/s Peak Gradient: 9.81 mmHg Mean Gradient: 4.63 mmHg AV Area (continuity): 3.35 cm^2 AV VTI: 24.8 cm AV DVI: 0.81 LVOT Peak Velocity: 1.3 m/sPeak Gradient: 6.75 mmHg Mean Velocity: 0.81 m/s Mean Gradient: 3.13 mmHg LVOT Diameter: 2.3 cm LVOT VTI: 20.03 cm LVOT Area: 4.15 cm^2LVOT SV:83.18 ml LVOT CO: 5.91 l/min LVOT CI: 2.56 l/min/m^2 Procedure Note Interface, External Ris In - 01/11/2018 6:06 PM CDT Transthoracic Echocardiography Report (TTE) Demographics Patient Name NALDO ANDREA Date of Study 01/11/2018 Gender Male Visit Number [id number] Race Black Room Number [id number] Number Date of 1955 Referring Physician PATRICK Tang Age 62 year(s) Package [employer] Machine Operator Aleja Han [facility] Interpreting Genie Rodriguez MD Fellow AMY Vazquez FEL Procedure Type of Study TTE procedure:2DECHO W DOPPLER(CW/PW/COLOR) (Routine) Indications:Bacteremia and Palpitations. Clinical History ESRD;SEPSIS;HTN HGB 9.9 HCT 31.8 % Height: 74 inches Weight: 104.33 kg (230 lbs) BSA: 2.31 m^2 BMI: 29.53 kg/m^2 HR: 71 bpm BP: 154/98 mmHg Summary 1. All of the LV segments contract normally . LVEF by Winkler's method of disk assessment is normal (60%) . 2. Stage I diastolic dysfunction. Unable to estimate peak systolic PA pressure. 3. There is constant flow from the IVC into the RA, suggesting low-normal CVP (0-5 mmHg). Previous Study In comparison with the prior exam on 02/27/2017 there are no significant changes. Signature Findings Rhythm/BP Regular sinus rhythm during the exam. Left Ventricle The left ventricle is chamber size (by vol index) is normal (male - LVED vol - 34-74ml/m2). LV septal thickness is fxrbdgdw-gd-kvydxosz increased. LV posterior wall thickness is moderately increased. All of the LV segments contract normally . LVEF by Winkler's method of disk assessment is normal (60%) . Stage I diastolic dysfunction. Left Atrium LA size is normal (16-34 ml/m2) . Right Ventricle The right ventricular chamber size and systolic function are within normal limits. Right Atrium RA size is normal. Aortic Valve Normal AoV structure and function. Mitral Valve Normal MV structure and function. Tricuspid Valve Normal TV structure and function. Unable to estimate peak systolic PA pressure; inadequate TR velocity signal. Pulmonic Valve Normal PV structure and function by limited views and Doppler. Aorta Aortic root size (SInus of Valsalva diameter and proximal ascending aorta) is normal. Pericardium A trivial-small pericardial effusion is noted. IVC/SVC/PA/PV/Pleural The inferior vena cava size is normal. There is constant flow from the IVC into the RA, suggesting low-normal CVP (0-5 mmHg). Chambers/Structures Left Atrium LA Volume: 66.83 ml LA Area: 20.73 cm^2 LA Vol. Index: 29 ml/m^2 Left Ventricle LVIDd: 4.93 cm LVEDV:96.6 ml LVIDs: 3.24 cm LVESV:42.69 ml LV Septum Diastolic: 1.59 cm LVEF 2D Cube: 55.7 % LV Septum Systolic: 2.11 cm LV PW Diastolic: 1.38 cm LV FS: 34.3 % LV PW Systolic: 2.15 cm LVEDV Winkler's:110.29 ml LVEDVI: 48 ml/m^2 LVESV Winkler's:35.95 ml LVESVI: 16 ml/m^2 LVEF Winkler's: 67.4 % LVOT Diameter: 2.3 cm LVEF: 55.8 % Aorta Ao Root S of Velma.: 3.18 cm Ascending Aorta: 3.31 cm Doppler/Quantitative Measurements Mitral Valve MV Peak E-Wave: 0.62 m/s MV Peak A-Wave: 0.84 m/s E/A Ratio: 0.74 Peak Gradient: 1.54 mmHg Deceleration Time: 208.4 msec MV Pawan. Peak: Tissue Doppler E' Septal Velocity: 0.06 m/s Aortic Valve Peak Velocity: 1.57 m/s Mean Velocity: 1 m/s Peak Gradient: 9.81 mmHg Mean Gradient: 4.63 mmHg AV Area (continuity): 3.35 cm^2 AV VTI: 24.8 cm AV DVI: 0.81 LVOT Peak Velocity: 1.3 m/s Peak Gradient: 6.75 mmHg Mean Velocity: 0.81 m/s Mean Gradient: 3.13 mmHg LVOT Diameter: 2.3 cm LVOT VTI: 20.03 cm LVOT Area: 4.15 cm^2 LVOT SV:83.18 ml LVOT CO: 5.91 l/min LVOT CI: 2.56 l/min/m^2 Performing Organization Address City/State/Zipcode Phone Number [facility] Calcium, Ionized (01/11/2018 5:36 AM CDT)Only the most recent of4 resultswithin the time period is included. Calcium, Ion 0.87 (L) 1.12 - 1.27 mmol/L [facility] pH, Blood 7.38 [facility] Specimen Blood Performing Organization Address [facility] Phone Number [address] [address] [phone] CENTER Phosphorus (01/11/2018 5:36 AM CDT)Only the most recent of5 resultswithin the time period is included. Phosphorus 6.9 (H) 2.3 - 4.7 mg/dL [facility] Specimen Blood Performing Organization Address [facility] Phone Number [address] [address] CENTER Magnesium (01/11/2018 5:36 AM CDT)Only the most recent of4 resultswithin the time period is included. Magnesium 2.6 1.6 - 2.6 mg/dL [facility] Specimen Blood Performing Organization Address [facility] Phone Number [address] [address] CENTER Blood culture (01/10/2018 6:56 PM CDT)Only the most recent of4 resultswithin the time period is included. Result No growth in 5 days [facility] Specimen Blood - Arm, Left Performing Organization Address [facility] Phone Number [address] [address] CENTER Vancomycin level, random (01/10/2018 12:42 AM CDT)Only the most recent of3 resultswithin the time period is included. Vancomycin Rm 30.1 ug/mL [facility] Specimen Blood Narrative Performed At [facility] Reference Range: No Normals Performing Organization Address City/[facility]/Zipcode Phone Number [facility] [address] [place] [address] CENTER Manual Differential (01/08/2018 4:44 AM CDT)Only the most recent of2 resultswithin the time period is included. % Neutros 63 % [facility] % Lymphs 18 % [facility] % Monos 6 % [facility] % Eos 1 % [facility] % Bands 12 (H) 0 - 10 % [facility] # Neutros 7.12 (H) 1.78 - 5.38 K/ul [facility] # Lymphs 2.03 1.32 - 3.57 K/ul [facility] # Monos 0.68 0.30 - 0.82 K/uL [facility] # Eos 0.11 0.04 - 0.54 K/uL [facility] # Bands 1.36 (H) 0.00 - 0.80 K/uL [facility] Total Counted 100 [facility] WBC Morphology Normal [facility] Platelet Morphology Normal [facility] Polychromasia 1+ few [facility] Anisocytosis 1+ few [facility] Poikilocytes 1+ few [facility] Artifact Present [facility] Platelet Conc Adequate [facility] Specimen Blood - Line, Venous Narrative Performed At Received comment: [facility] User comments: Slide comments: Performing Organization Address [facility]/Zipcode Phone Number [facility] [address] [place] [address] CENTER Hepatic function panel (01/08/2018 4:44 AM CDT)Only the most recent of3 resultswithin the time period is included. Protein, Total 7.1 6.0 - 8.3 gm/dL [facility] Albumin 3.5 3.5 - 5.0 g/dL [facility] Total Bilirubin 0.3 0.2 - 1.2 mg/dL [facility] Bilirubin, Direct 0.1 0.1 - 0.5 mg/dL [facility] Alkaline Phosphatase 49 40 - 150 U/L [facility] AST 39 (H) 5 - 34 U/L [facility] ALT 68 (H) 6 - 55 U/L [facility] Specimen Blood - Line, Venous Performing Organization Address City/State/Zipcode Phone Number [facility] [address] [place] [address] CENTER IR Tunneled Catheter Removal (01/07/2018 7:00 PM CDT) Narrative Performed At FINAL REPORT [facility] Tunneled catheter removal: Pertinent clinical information: Infected catheter Conscious Sedation: No sedation Anesthesia:Two percent Lidocaine injected subcutaneously at the insertion site and tunnel. Approach: Right anterior chest wall For maximum sterile barrier protection a mask, cap, sterile gloves, sterile drape, sterile gown, and a cutaneous antiseptic was utilized. Technique:After informed written consent was obtained, the patient was prepped and draped in the usual sterile manner.The subcutaneous tunnel was accessed in the right anterior chest wall by blunt dissection. The catheter sutures were removed.The catheter was removed.The patient tolerated the procedure well and left the department in the same condition. Impression: Successful, uncomplicated removal of a right internal jugular tunneled catheter. Signed: Evita Leslie MD Report Verified Date/Time:01/07/2018 21:29:51 Reading Location: [facility] Radiology Reading Room Procedure Note Interface, External Ris In - 01/07/2018 9:31 PM CDT FINAL REPORT Tunneled catheter removal: Pertinent clinical information: Infected catheter Conscious Sedation: No sedation Anesthesia: Two percent Lidocaine injected subcutaneously at the insertion site and tunnel. Approach: Right anterior chest wall For maximum sterile barrier protection a mask, cap, sterile gloves, sterile drape, sterile gown, and a cutaneous antiseptic was utilized. Technique: After informed written consent was obtained, the patient was prepped and draped in the usual sterile manner. The subcutaneous tunnel was accessed in the right anterior chest wall by blunt dissection. The catheter sutures were removed. The catheter was removed. The patient tolerated the procedure well and left the department in the same condition. Impression: Successful, uncomplicated removal of a right internal jugular tunneled catheter. Signed: Evita Leslie MD Report Verified Date/Time: 01/07/2018 21:29:51 Reading Location: [facility] Radiology Reading Room Performing Organization Address [facility] Phone Number [facility] Catheter Tip Culture (01/07/2018 7:00 PM CDT) Result PSEUDOMONAS AERUGINOSA (A) [facility] Specimen Other - PICC Narrative Performed At [facility] Organism Antibiotic Method Susceptibility Pseudomonas aeruginosa Amikacin <=8: Susceptible Pseudomonas aeruginosa Aztreonam 4: Susceptible Pseudomonas aeruginosa Cefepime <=4: Susceptible Pseudomonas aeruginosa Ceftazidime 2: Susceptible Pseudomonas aeruginosa Ciprofloxacin <=0.5: Susceptible Pseudomonas aeruginosa Gentamicin <=2: Susceptible Pseudomonas aeruginosa Levofloxacin <=1: Susceptible Pseudomonas aeruginosa Meropenem <=0.5: Susceptible Pseudomonas aeruginosa Piperacillin <=16: Susceptible Pseudomonas aeruginosa Piperacillin + Tazobactam <=8: Susceptible Pseudomonas aeruginosa Tobramycin <=2: Susceptible Performing Organization Address [facility] Phone Number [address] [address] [phone] CENTER Sputum Culture + Gram Stain (01/07/2018 4:22 PM CDT) Result 1+ Normal respiratory miller [facility] Gram Stain Result 1+ WBCs [facility] Gram Stain Result 0-5 epithelial cells [facility] Gram Stain Result 1+ gram positive cocci in [facility] pairs and clusters [facility] CENTER Specimen Sputum - Expectorated Performing Organization Address City/[facility]/Zipcode Phone Number [address] [address] [place] Lactic acid, venous, whole blood (01/07/2018 3:18 PM CDT)Only the most recent of2 resultswithin the time period is included. Lactate, Venous 1.9Comment: Specimen 0.5 - 2.2 mmol/L [facility] slightly hemolyzed [facility] Specimen Blood Narrative Performed At [facility] Effective 09/10/2015: Units/Reference Range Change New: 0.5-2.2 mmol/LPrevious: 5-20 mg/dL Performing Organization Address City/[facility] Phone Number [address] [address] [place] HEMODIALYSIS INPATIENT (01/07/2018 1:49 PM CDT) Narrative Performed At Radha Bedoya RN 01/07/20181:49 PM Complained of leg cramps toward the end of the procedure,, tolerated 2.4 liters UF. HD duration 4 hours UF 2.4L Lab Results Component Value Date WBC 8.0 01/06/2018 HGB 9.5 (L) 01/06/2018 HCT 30.4 (L) 01/06/2018 MCV 90.5 01/06/2018 PLT 239 01/06/2018 Lab Results Component Value Date GLUCOSE 83 01/07/2018 CALCIUM 9.6 01/07/2018 NA 136 01/07/2018 K 4.6 01/07/2018 CO2 21 (L) 01/07/2018 CL 101 01/07/2018 BUN 69 (H) 01/07/2018 CREATININE 11.55 (H) 01/07/2018 No components found for: HEPSAG Vitals: 01/07/18 1338 BP: (!) 155/103 Pulse: 123 Resp: 22 Temp: 99.6 F (37.6 C) SpO2: 92% Vitamin D, 25-Hydroxy (01/07/2018 4:41 AM CDT) Vitamin D 25-Hydroxy 47.2 6.6 - 49.9 ng/mL [facility] Specimen Blood Narrative Performed At [facility] Effective 02/16/2017: Reference Range Change New: 6.6-49.9 ng/mL Previous: 13.0-47.8 ng/mL Recommended Vitamin D Target Range: 30.0-40.0 ng/mL Performing Organization Address [facility] Phone Number [address] [address] [place] Hepatitis B surface antigen (01/07/2018 4:41 AM CDT) hepatitis B Surface Ag NON-REACTIVE Nonreactive [facility] Specimen Blood Performing Organization Address [facility] Phone Number [address] [address] [place] PTH, intact (01/07/2018 4:41 AM CDT) PTH 198.9 (H) 8.5 - 72.5 pg/mL [facility] Specimen Blood Performing Organization Address [facility] Phone Number [address] [address] [phone] [place] Urinalysis w/ Microscopic (01/06/2018 5:28 PM CDT) Color, UA Light Yellow [facility] Clarity, UA Clear [facility] Specific [place], UA 1.007 1.001 - 1.035 [facility] pH, UA 7.5 5.0 - 8.0 [facility] Protein, UA 100 mg/dL (A) Negative [facility] Glucose, UA 50 mg/dL (A) Negative [facility] Ketones, UA Negative Negative [facility] Bilirubin, UA Negative Negative [facility] Blood, UA Negative Negative [facility] Nitrite, UA Negative Negative [facility] Leukocytes, UA Negative Negative [facility] Urobilinogen, UA 0.2 0.2 - 1.0 mg/dL [facility] RBC, UA <1 /HPF [facility] WBC, UA <1 /HPF [facility] Specimen Source [facility] Specimen Urine Performing Organization Address City/[facility] Phone Number [facility] [address] [place] [phone] [place] Procalcitonin (01/06/2018 5:04 PM CDT) Procalcitonin 51.22 () <0.05 ng/mL [facility] Specimen Blood Narrative Performed At [facility] SEPSIS RISK (ng/mL) Low:0.05-0.50 Intermediate: 0.51-2.00 High: >=2.01 Performing Organization Address [facility] Phone Number [address] [address] [phone] [place] XR chest 1 view portable / bedside (01/06/2018 10:43 AM CDT) Narrative Performed At FINAL REPORT [facility] CLINICAL HISTORY: chest pain TECHNIQUE: 1 view of the chest. COMPARISON: 01/25/2017 IMPRESSION: There is a right-sided dialysis catheter terminating near the cavoatrial junction. Bilateral mid lung atelectasis is again seen. There is no pleural fluid. The cardiomediastinal silhouette is magnified by technique. Signed: Lucy Petersen MD Report Verified Date/Time:01/06/2018 11:31:21 Reading Location: [facility] Radiology Reading Room Procedure Note Interface, External Ris In - 01/06/2018 11:33 AM CDT FINAL REPORT CLINICAL HISTORY: chest pain TECHNIQUE: 1 view of the chest. COMPARISON: 01/25/2017 IMPRESSION: There is a right-sided dialysis catheter terminating near the cavoatrial junction. Bilateral mid lung atelectasis is again seen. There is no pleural fluid. The cardiomediastinal silhouette is magnified by technique. Signed: Lucy Petersen MD Report Verified Date/Time: 01/06/2018 11:31:21 Reading Location: [facility] Radiology Reading Room Performing Organization Address City/State/Zipcode Phone Number [facility] US Renal complete (01/06/2018 8:05 AM CDT) Narrative Performed At FINAL REPORT [facility] Ren[facility] ultrasound Clinical History:Kidney injury Comparison: CT with contrast from 07/17/2016 Discussion: Sonographic evaluation of the kidneys is performed. The right kidney measures 10.2 x 5.6 x 4.8 cm. Cortical thickness is decreased and cortical echogenicity is increased. There are multiple simple appearing cysts, largest measures 4.4 x 3.0 x 4.0 cm and is located within the inferior pole. There is a solid lesion noted within the superior pole measuring 3.0 x 2.9 x 2.4 cm. There is no evidence for hydronephrosis or shadowing calculi. The main renal artery and vein are patent. The left kidney measures 9.5 x 3.9 x 3.9 cm. Cortical thickness is decreased and cortical echogenicity is increased. There are multiple simple appearing cysts, the largest measures 1.9 x 1.5 x 1.7 cm and is located in the superior pole. There is no evidence for solid renal mass, hydronephrosis, or shadowing calculi. The main renal artery and vein are patent. There is circumferential bladder wall thickening which was noted on the prior CT examination. The prostate is enlarged measuring 4.5 x 3.3 x 2.9 cm and impresses on the urinary bladder. Impression: 1. Sonographic findings suggestive of chronic medical renal disease. 2. Bilateral renal cysts with a solid lesion identified within the superior pole the right kidney measuring 3.0 cm. This may represent a cyst with hemorrhagic/proteinaceous content. However, a solid renal mass is not excluded and further evaluation with dedicated renal mass CT is recommended. 3. Prostatomegaly. Signed: Jeovany Hill MD Report Verified Date/Time:01/06/2018 09:04:28 Reading Location: [address] Ultrasound Reading Room Procedure Note Interface, External Ris In - 01/06/2018 9:06 AM CDT FINAL REPORT Renal ultrasound Clinical History: Kidney injury Comparison: CT with contrast from 07/17/2016 Discussion: Sonographic evaluation of the kidneys is performed. The right kidney measures 10.2 x 5.6 x 4.8 cm. Cortical thickness is decreased and cortical echogenicity is increased. There are multiple simple appearing cysts, largest measures 4.4 x 3.0 x 4.0 cm and is located within the inferior pole. There is a solid lesion noted within the superior pole measuring 3.0 x 2.9 x 2.4 cm. There is no evidence for hydronephrosis or shadowing calculi. The main renal artery and vein are patent. The left kidney measures 9.5 x 3.9 x 3.9 cm. Cortical thickness is decreased and cortical echogenicity is increased. There are multiple simple appearing cysts, the largest measures 1.9 x 1.5 x 1.7 cm and is located in the superior pole. There is no evidence for solid renal mass, hydronephrosis, or shadowing calculi. The main renal artery and vein are patent. There is circumferential bladder wall thickening which was noted on the prior CT examination. The prostate is enlarged measuring 4.5 x 3.3 x 2.9 cm and impresses on the urinary bladder. Impression: 1. Sonographic findings suggestive of chronic medical renal disease. 2. Bilateral renal cysts with a solid lesion identified within the superior pole the right kidney measuring 3.0 cm. This may represent a cyst with hemorrhagic/proteinaceous content. However, a solid renal mass is not excluded and further evaluation with dedicated renal mass CT is recommended. 3. Prostatomegaly. Signed: Jeovany Hill MD Report Verified Date/Time: 01/06/2018 09:04:28 Reading Location: [facility] P006 Ultrasound Reading Room Performing Organization Address City/State/Zipcode Phone Number [facility] after 07/17/2017 Insurance Payer Benefit Plan / Group Subscriber ID Type Phone Address MEDICARE MEDICARE A B xxxxxxxxxxx Medicare Advance Directives Patient has advance care planning documents, and code status on file. For more information, please contact:[address] [phone] Code Status Date Activated Date Inactivated Comments Full Code 07/18/2018 6:50 AM 07/18/2018 10:33 AM This code status was determined by: Patient Full Code 03/21/2018 9:02 AM 05/03/2018 10:11 AM This code status was determined by: Patient Full Code 01/06/2018 1:11 AM 01/14/2018 7:30 PM This code status was determined by: Patient Full Code 02/25/2017 8:46 PM 03/04/2017 4:16 PM This code status was determined by: Patient Full Code 08/25/2016 2:30 PM 08/28/2016 7:19 PM This code status was determined by: Patient
--- OUTSIDE RECORDS SUMMARY | 2018-07-18 12:34 | XMS REPORT ---
:1955 [facility] Address [address] [place] [address] Care Team Providers Name Role Phone SHANA HURTADO Unavailable Unavailable JASMIN JOVEL Unavailable Unavailable ANDREW GRULLON Unavailable Unavailable ARIAN MANUEL Unavailable Unavailable ASHIA WORKMAN Unavailable [...] Comments Text Results Atomic Results Result Comments COMPREHENSIVE METABOLIC PANEL 2018-07-18 07:46:00 Test Item Value Reference Range Comments TOTAL PROTEIN (BEAKER) (test 7.4 gm/dL 6.0-8.3 geaa=713) ALBUMIN (BEAKER) (test 4.0 g/dL 3.5-5.0 jacz=8091) ALKALINE PHOSPHATASE (BEAKER) 36 U/L 40-150 (test slkf=895) BILIRUBIN TOTAL (BEAKER) 0.4 mg/dL 0.2-1.2 (test dpap=251) SODIUM (BEAKER) (test 139 meq/L 136-145 oczu=676) POTASSIUM (BEAKER) (test 4.4 meq/L 3.5-5.1 bnsm=603) CHLORIDE (BEAKER) (test 105 meq/L 98-107 vhpv=615) CO2 (BEAKER) (test tbbx=013) 22 meq/L 22-29 BLOOD UREA NITROGEN (BEAKER) 46 mg/dL 7-21 (test xjws=787) CREATININE (BEAKER) (test 9.83 mg/dL 0.57-1.25 wfdu=354) GLUCOSE RANDOM (BEAKER) (test 92 mg/dL 70-105 ueug=973) CALCIUM (BEAKER) (test 8.6 mg/dL 8.4-10.2 tqil=122) AST (SGOT) (BEAKER) (test 15 U/L 5-34 oklu=968) ALT (SGPT) (BEAKER) (test 17 U/L 6-55 nctj=921) EGFR (BEAKER) (test 7 mL/min/1.73 sq m ESTIMATED GFR IS NOT lost=1151) ACCURATE CREATININE CLEARANCE IN PREDICTING GLOMERULAR FILTRATION RATE. ESTIMATED GFR IS NOT APPLICABLE FOR DIALYSIS PATIENTS. [id number] 07:31:00 Test Item Value Reference Range Comments PARTIAL THROMBOPLASTIN TIME (BEAKER) (test 45.9 seconds 22.5-36.0 tvxg=765) PROTHROMBIN [id number] 07:30:00 Test Item Value Reference Range Comments PROTIME (BEAKER) (test hgte=775) 13.7 seconds 11.7-14.7 INR (BEAKER) (test udbh=506) 1.0 <=5.9 RECOMMENDED COUMADIN/WARFARIN INR THERAPY RANGESSTANDARD DOSE: 2.0 - 3.0 Includes: PROPHYLAXIS forvenous thrombosis, systemic embolization; TREATMENT for venous thrombosis and/or pulmonary embolus.HIGH RISK: Target INR is 2.5-3.5 for patients with mechanical heart valves.CBC W/PLT COUNT & AUTO [id number] 07:22:00 Test Item Value Reference Range Comments WHITE BLOOD CELL COUNT (BEAKER) (test yvkg=394) 6.4 K/ L 3.5-10.5 RED BLOOD CELL COUNT (BEAKER) (test cnby=506) 3.65 M/ L 4.63-6.08 HEMOGLOBIN (BEAKER) (test wrom=478) 10.2 GM/DL 13.7-17.5 HEMATOCRIT (BEAKER) (test dklh=941) 33.6 % 40.1-51.0 MEAN CORPUSCULAR VOLUME (BEAKER) (test nalq=394) 92.1 fL 79.0-92.2 MEAN CORPUSCULAR HEMOGLOBIN (BEAKER) (test 27.9 pg 25.7-32.2 jmnr=734) MEAN CORPUSCULAR HEMOGLOBIN CONC (BEAKER) (test 30.4 GM/DL 32.3-36.5 zqsv=303) RED CELL DISTRIBUTION WIDTH (BEAKER) (test 15.6 % 11.6-14.4 mxvr=444) PLATELET COUNT (BEAKER) (test kxji=383) 214 K/CU MM 150-450 MEAN PLATELET VOLUME (BEAKER) (test pkdq=431) 10.2 fL 9.4-12.4 NUCLEATED RED BLOOD CELLS (BEAKER) (test 0 /100 WBC 0-0 blyn=271) NEUTROPHILS RELATIVE PERCENT (BEAKER) (test 63 % gqnk=259) LYMPHOCYTES RELATIVE PERCENT (BEAKER) (test 19 % zzlx=119) MONOCYTES RELATIVE PERCENT (BEAKER) (test 14 % ulxs=385) EOSINOPHILS RELATIVE PERCENT (BEAKER) (test 3 % jsbk=757) BASOPHILS RELATIVE PERCENT (BEAKER) (test 1 % azqx=736) NEUTROPHILS ABSOLUTE COUNT (BEAKER) (test 4.03 K/ L 1.78-5.38 kkgh=852) LYMPHOCYTES ABSOLUTE COUNT (BEAKER) (test 1.24 K/ L 1.32-3.57 usbr=749) MONOCYTES ABSOLUTE COUNT (BEAKER) (test 0.87 K/ L 0.30-0.82 yxvk=584) EOSINOPHILS ABSOLUTE COUNT (BEAKER) (test 0.18 K/ L 0.04-0.54 iurd=473) BASOPHILS ABSOLUTE COUNT (BEAKER) (test 0.03 K/ L 0.01-0.08 rpqk=096) IMMATURE GRANULOCYTES-RELATIVE PERCENT (BEAKER) 1 % 0-1 (test uqjw=3739) POCT-GLUCOSE [id number] 06:48:00 Test Item Value Reference Range Comments POC-GLUCOSE METER (BEAKER) 106 mg/dL 70-110 TESTED AT [facility] [address] (test wkdp=6468) [facility] [address] BASIC METABOLIC [id number] 11:54:00 Test Item Value Reference Range Comments SODIUM (BEAKER) (test 139 meq/L 136-145 qqtj=538) POTASSIUM (BEAKER) (test 4.2 meq/L 3.5-5.1 anxu=178) CHLORIDE (BEAKER) (test 104 meq/L 98-107 ikyf=510) CO2 (BEAKER) (test 22 meq/L 22-29 urhf=960) BLOOD UREA NITROGEN 61 mg/dL 7-21 (BEAKER) (test hczr=793) CREATININE (BEAKER) (test 10.74 mg/dL 0.57-1.25 xydy=046) GLUCOSE RANDOM (BEAKER) 100 mg/dL 70-105 (test yuyh=380) CALCIUM (BEAKER) (test 8.8 mg/dL 8.4-10.2 rlrr=468) EGFR (BEAKER) (test 6 mL/min/1.73 sq m ESTIMATED GFR IS NOT jtmu=7141) ACCURATE CREATININE CLEARANCE IN PREDICTING GLOMERULAR FILTRATION RATE. ESTIMATED GFR IS NOT APPLICABLE FOR DIALYSIS PATIENTS. CBC W/PLT COUNT & AUTO [id number] 11:37:00 Test Item Value Reference Range Comments WHITE BLOOD CELL COUNT (BEAKER) (test wxck=331) 6.1 K/ L 3.5-10.5 RED BLOOD CELL COUNT (BEAKER) (test ewlf=778) 3.95 M/ L 4.63-6.08 HEMOGLOBIN (BEAKER) (test nbqq=570) 11.2 GM/DL 13.7-17.5 HEMATOCRIT (BEAKER) (test qwne=443) 36.4 % 40.1-51.0 MEAN CORPUSCULAR VOLUME (BEAKER) (test aysc=512) 92.2 fL 79.0-92.2 MEAN CORPUSCULAR HEMOGLOBIN (BEAKER) (test 28.4 pg 25.7-32.2 gsqx=506) MEAN CORPUSCULAR HEMOGLOBIN CONC (BEAKER) (test 30.8 GM/DL 32.3-36.5 vmav=869) RED CELL DISTRIBUTION WIDTH (BEAKER) (test 15.1 % 11.6-14.4 eccu=117) PLATELET COUNT (BEAKER) (test zkaj=945) 257 K/CU MM 150-450 MEAN PLATELET VOLUME (BEAKER) (test pzto=299) 10.4 fL 9.4-12.4 NUCLEATED RED BLOOD CELLS (BEAKER) (test 0 /100 WBC 0-0 pcar=805) NEUTROPHILS RELATIVE PERCENT (BEAKER) (test 62 % zczq=898) LYMPHOCYTES RELATIVE PERCENT (BEAKER) (test 20 % nymk=118) MONOCYTES RELATIVE PERCENT (BEAKER) (test 15 % fzxj=943) EOSINOPHILS RELATIVE PERCENT (BEAKER) (test 2 % axrk=737) BASOPHILS RELATIVE PERCENT (BEAKER) (test 1 % reff=489) NEUTROPHILS ABSOLUTE COUNT (BEAKER) (test 3.78 K/ L 1.78-5.38 eepz=419) LYMPHOCYTES ABSOLUTE COUNT (BEAKER) (test 1.24 K/ L 1.32-3.57 fbux=087) MONOCYTES ABSOLUTE COUNT (BEAKER) (test 0.90 K/ L 0.30-0.82 qevm=232) EOSINOPHILS ABSOLUTE COUNT (BEAKER) (test 0.13 K/ L 0.04-0.54 zgib=810) BASOPHILS ABSOLUTE COUNT (BEAKER) (test 0.03 K/ L 0.01-0.08 fbyi=065) IMMATURE GRANULOCYTES-RELATIVE PERCENT (BEAKER) 0 % 0-1 (test mgio=4544) [id number] 09:37:00 Test Item Value Reference Range Comments POC-POTASSIUM (BEAKER) (test 4.2 meq/L 3.6-5.5 TESTED AT [facility] [address] jnja=2215) [facility] [address] BUN AND [id number] 13:33:00 Test Item Value Reference Range Comments BLOOD UREA NITROGEN 44 mg/dL 7-21 (BEAKER) (test mnta=422) CREATININE (BEAKER) (test 10.90 mg/dL 0.57-1.25 lwey=344) EGFR (BEAKER) (test 6 mL/min/1.73 sq m ESTIMATED GFR IS NOT tsto=5829) ACCURATE CREATININE CLEARANCE IN PREDICTING GLOMERULAR FILTRATION RATE. ESTIMATED GFR IS NOT APPLICABLE FOR DIALYSIS PATIENTS. [id number] 13:32:00 Test Item Value Reference Range Comments SODIUM (BEAKER) (test iedm=938) 139 meq/L 136-145 POTASSIUM (BEAKER) (test slby=423) 4.2 meq/L 3.5-5.1 CHLORIDE (BEAKER) (test wnon=826) 100 meq/L 98-107 CO2 (BEAKER) (test xouk=655) 27 meq/L 22-29 [id number] 13:14:00 Test Item Value Reference Range Comments HEMOGLOBIN (BEAKER) (test wkuk=067) 12.8 GM/DL 13.7-17.5 BLOOD [id number] 04:41:00 Test Item Value Reference Range Comments CULTURE (EDENILSON) (test ptkf=8455) No growth in 5 days POCT-GLUCOSE [id number] 13:11:00 Test Item Value Reference Range Comments POC-GLUCOSE METER (EDENILSON) 169 mg/dL 70-110 TESTED AT [facility] [address] (test kgsw=4377) [facility] [address] ANG, TUNNELED CATHETER [id number] 18:19:00FINAL REPORT Tunneled dialysis catheter insertion. History: Renal failure. Modality: Sonography and fluoroscopy. Sedation : Moderate sedation was administered. 2 mg of Versed and 100 mcg of fentanyl IV was used for moderate sedation monitored under my direction. Total intra- service time of sedation was 30 minutes. The patient'svital signs were monitored throughout the procedure and recorded in the patient's medical record by the nurse. 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 Approach: Left internal jugular vein Estimatedblood loss: < 5 cc. Specimen: None. Fluoroscopy Time: 4.2 min. Dose (Ka,r): 73.4 mGy. Technique: Informed written consent was obtained. Discussion of risks, benefits, and alternatives were made with the patient. The patient expressed understanding and agreed to proceed. All elements maximalsterile barrier technique was utilized for this procedure, [...] not be advanced centrally. The inner 3 American micropuncture sheath was placed and contrast injected [...] needle into the right atrium. A 4 American micropuncture sheath was placed and a 0.035 wire advanced into the IVC. A subcutaneous tunnel was created in theleft anterior chest wall by blunt dissection. A 23 cm tip to cuff 15.5 American Duraflow 2 catheter was brought through the [...] catheter exit site. The small jugular incision sitewas closed using Darvon. Vital signs were monitored throughout the procedure by a nurse, and remained stable. The patient tolerated the procedure well and left the department in the same condition. Results: Spot radiograph of the chest demonstrates the new dialysis catheter to lie in the expected position with its tip overlying the superior right atrium. Impression : Successful, uncomplicated placement ofa left internal jugular tunneled dialysis catheter using sonographic and fluoroscopic guidance and conscious sedation. Signed : Jeovany [place] MDReport Verified Date/Time: 01/13/2018 18:19:33 Reading Location: [place] [address] Angio Body Reading Room POCT-GLUCOSE [id number] 17:11:00 Test Item Value Reference Range Comments POC-GLUCOSE METER (BEAKER) 159 mg/dL 70-110 TESTED AT [facility] [address] (test djzj=3764) [facility] [address] CATHETER TIP [id number] 10:23:00 Test Item Value Reference Range Comments CULTURE (BEAKER) (test <15 Colonies On Direct wlow=1532) Plate Pseudomonas aeruginosa CULTURE (BEAKER) (test PSEUDOMONAS AERUGINOSA <15 Colonies On Direct ebar=5226) Plate Pseudomonas aeruginosa Amikacin (test code=1) Aztreonam (test code=32) Cefepime (test code=51) Ceftazidime (test code=27) Ciprofloxacin (test code=7) Gentamicin (test code=18) Levofloxacin (test code=22) Meropenem (test code=34) Piperacillin (test code=24) Piperacillin + Tazobactam (test code=29) Tobramycin (test code=25) POCT-GLUCOSE [id number] 08:43:00 Test Item Value Reference Range Comments POC-GLUCOSE METER (BEAKER) 116 mg/dL 70-110 TESTED AT [facility] [address] [facility] (test djgo=9803) [facility] [address] BASIC METABOLIC [id number] 06:17:00 Test Item Value Reference Range Comments SODIUM (BEAKER) (test 136 meq/L 136-145 pscv=140) POTASSIUM (BEAKER) (test 4.4 meq/L 3.5-5.1 vdsq=325) CHLORIDE (BEAKER) (test 97 meq/L 98-107 jofm=359) CO2 (BEAKER) (test 18 meq/L 22-29 kmeu=403) BLOOD UREA NITROGEN 108 mg/dL 7-21 (BEAKER) (test iwld=391) CREATININE (BEAKER) (test 13.45 mg/dL 0.57-1.25 cowx=698) GLUCOSE RANDOM (BEAKER) 144 mg/dL 70-105 (test gyzy=274) CALCIUM (BEAKER) (test 9.8 mg/dL 8.4-10.2 ygye=361) EGFR (BEAKER) (test 5 mL/min/1.73 sq m ESTIMATED GFR IS NOT pfbc=1615) ACCURATE CREATININE CLEARANCE IN PREDICTING GLOMERULAR FILTRATION RATE. ESTIMATED GFR IS NOT APPLICABLE FOR DIALYSIS PATIENTS. [id number] 05:32:00 Test Item Value Reference Range Comments PROTIME (BEAKER) (test nlvq=921) 14.3 seconds 11.7-14.7 INR (BEAKER) (test ovaq=480) 1.1 <=5.9 PARTIAL THROMBOPLASTIN TIME (BEAKER) (test 33.1 seconds 22.5-36.0 yota=064) RECOMMENDED COUMADIN/WARFARIN INR THERAPY RANGESSTANDARD DOSE: 2.0 - 3.0 Includes: PROPHYLAXIS forvenous thrombosis, systemic embolization; TREATMENT for venous thrombosis and/or pulmonary embolus.HIGH RISK: Target INR is 2.5-3.5 for patients with mechanical heart valves.CBC (HEMOGRAM ONLY)2018-01-13 05:24:00 Test Item Value Reference Range Comments WHITE BLOOD CELL COUNT (BEAKER) (test styt=915) 9.6 K/ L 3.5-10.5 RED BLOOD CELL COUNT (BEAKER) (test lrpp=605) 3.56 M/ L 4.63-6.08 HEMOGLOBIN (BEAKER) (test mvkg=593) 10.0 GM/DL 13.7-17.5 HEMATOCRIT (BEAKER) (test pspu=182) 31.6 % 40.1-51.0 MEAN CORPUSCULAR VOLUME (BEAKER) (test qknh=364) 88.8 fL 79.0-92.2 MEAN CORPUSCULAR HEMOGLOBIN (BEAKER) (test 28.1 pg 25.7-32.2 aduo=315) MEAN CORPUSCULAR HEMOGLOBIN CONC (BEAKER) (test 31.6 GM/DL 32.3-36.5 yaxr=952) RED CELL DISTRIBUTION WIDTH (BEAKER) (test 14.6 % 11.6-14.4 yjfr=807) PLATELET COUNT (BEAKER) (test wjnq=579) 411 K/CU MM 150-450 MEAN PLATELET VOLUME (BEAKER) (test nsua=720) 10.2 fL 9.4-12.4 NUCLEATED RED BLOOD CELLS (BEAKER) (test 0 /100 WBC 0-0 anln=647) POCT-GLUCOSE [id number] 22:24:00 Test Item Value Reference Range Comments POC-GLUCOSE METER (BEAKER) 118 mg/dL 70-110 TESTED AT [address] (test mtbl=1688) [place] [address] POCT-GLUCOSE [id number] 18:32:00 Test Item Value Reference Range Comments POC-GLUCOSE METER (BEAKER) 146 mg/dL 70-110 TESTED AT [address] (test aiss=7899) [place] [id number] POCT-GLUCOSE [id number] 12:18:00 Test Item Value Reference Range Comments POC-GLUCOSE METER (BEAKER) 106 mg/dL 70-110 TESTED AT [address] (test jhhc=8472) [place] [address] POCT-GLUCOSE [id number] 07:45:00 Test Item Value Reference Range Comments POC-GLUCOSE METER (BEAKER) 98 mg/dL 70-110 TESTED AT [address] (test purb=5974) [place] [address] BLOOD [id number] 06:00:00 Test Item Value Reference Range Comments CULTURE (BEAKER) (test vzlr=1789) No growth in 5 days BLOOD [id number] 06:00:00 Test Item Value Reference Range Comments CULTURE (BEAKER) (test rinh=7060) No growth in 5 days POCT-GLUCOSE [id number] 21:04:00 Test Item Value Reference Range Comments POC-GLUCOSE METER (BEAKER) 124 mg/dL 70-110 TESTED AT [address] (test ldbx=9179) [place] [address] POCT-GLUCOSE [id number] 17:25:00 Test Item Value Reference Range Comments POC-GLUCOSE METER (BEAKER) 177 mg/dL 70-110 TESTED AT [address] (test bvtu=1074) [place] [id number] BASIC METABOLIC [id number] 13:32:00 Test Item Value Reference Range Comments SODIUM (BEAKER) (test 130 meq/L 136-145 twom=210) POTASSIUM (BEAKER) (test 5.0 meq/L 3.5-5.1 zvju=840) CHLORIDE (BEAKER) (test 97 meq/L 98-107 zosn=082) CO2 (BEAKER) (test 18 meq/L 22-29 ivbb=482) BLOOD UREA NITROGEN 86 mg/dL 7-21 (BEAKER) (test boua=248) CREATININE (BEAKER) (test 12.19 mg/dL 0.57-1.25 rmfm=580) GLUCOSE RANDOM (BEAKER) 94 mg/dL 70-105 (test kfgk=540) CALCIUM (BEAKER) (test 9.5 mg/dL 8.4-10.2 nlef=288) EGFR (BEAKER) (test 5 mL/min/1.73 sq m ESTIMATED GFR IS NOT afbs=9429) ACCURATE CREATININE CLEARANCE IN PREDICTING GLOMERULAR FILTRATION RATE. ESTIMATED GFR IS NOT APPLICABLE FOR DIALYSIS PATIENTS. POCT-GLUCOSE [id number] 12:17:00 Test Item Value Reference Range Comments POC-GLUCOSE METER (BEAKER) 82 mg/dL 70-110 TESTED AT [address] (test yjhc=7080) [place] [id number] 11:20:00 Test Item Value Reference Range Comments PROTIME (BEAKER) (test mfzj=855) 15.3 seconds 11.7-14.7 INR (BEAKER) (test lffz=719) 1.2 <=5.9 PARTIAL THROMBOPLASTIN TIME (BEAKER) (test 30.9 seconds 22.5-36.0 yeza=788) RECOMMENDED COUMADIN/WARFARIN INR THERAPY RANGESSTANDARD DOSE: 2.0 - 3.0 Includes: PROPHYLAXIS forvenous thrombosis, systemic embolization; TREATMENT for venous thrombosis and/or pulmonary embolus.HIGH RISK: Target INR is 2.5-3.5 for patients with mechanical heart valves.BLOOD [id number] 11:00:00 Test Item Value Reference Range Comments CULTURE (BEAKER) (test jock=3840) No growth in 5 days POCT-GLUCOSE [id number] 07:51:00 Test Item Value Reference Range Comments POC-GLUCOSE METER (BEAKER) 107 mg/dL 70-110 TESTED AT [facility] [address] [facility] (test kvym=1661) [facility] [address] CALCIUM, [id number] 06:32:00 Test Item Value Reference Range Comments CALCIUM IONIZED (BEAKER) (test apbp=433) 0.87 mmol/L 1.12-1.27 PH, BLOOD (BEAKER) (test mkrq=1990) 7.38 [id number] 06:13:00 Test Item Value Reference Range Comments PHOSPHORUS (BEAKER) (test ihjj=340) 6.9 mg/dL 2.3-4.7 [id number] 06:13:00 Test Item Value Reference Range Comments MAGNESIUM (BEAKER) (test ikaz=408) 2.6 mg/dL 1.6-2.6 CBC W/PLT COUNT & AUTO [id number] 06:00:00 Test Item Value Reference Range Comments WHITE BLOOD CELL COUNT (BEAKER) (test xxtt=695) 8.0 K/ L 3.5-10.5 RED BLOOD CELL COUNT (BEAKER) (test fqmh=284) 3.56 M/ L 4.63-6.08 HEMOGLOBIN (BEAKER) (test yzae=583) 9.9 GM/DL 13.7-17.5 HEMATOCRIT (BEAKER) (test psmn=883) 31.8 % 40.1-51.0 MEAN CORPUSCULAR VOLUME (BEAKER) (test ljkt=289) 89.3 fL 79.0-92.2 MEAN CORPUSCULAR HEMOGLOBIN (BEAKER) (test 27.8 pg 25.7-32.2 bduj=395) MEAN CORPUSCULAR HEMOGLOBIN CONC (BEAKER) (test 31.1 GM/DL 32.3-36.5 osjv=486) RED CELL DISTRIBUTION WIDTH (BEAKER) (test 14.6 % 11.6-14.4 wwxb=395) PLATELET COUNT (BEAKER) (test xgsx=510) 399 K/CU MM 150-450 MEAN PLATELET VOLUME (BEAKER) (test ttqq=621) 10.3 fL 9.4-12.4 NUCLEATED RED BLOOD CELLS (BEAKER) (test 0 /100 WBC 0-0 sfsb=075) NEUTROPHILS RELATIVE PERCENT (BEAKER) (test 58 % pcop=687) LYMPHOCYTES RELATIVE PERCENT (BEAKER) (test 22 % iift=068) MONOCYTES RELATIVE PERCENT (BEAKER) (test 13 % obzu=074) EOSINOPHILS RELATIVE PERCENT (BEAKER) (test 2 % gahz=562) BASOPHILS RELATIVE PERCENT (BEAKER) (test 1 % oqyj=361) NEUTROPHILS ABSOLUTE COUNT (BEAKER) (test 4.66 K/ L 1.78-5.38 tbnb=230) LYMPHOCYTES ABSOLUTE COUNT (BEAKER) (test 1.77 K/ L 1.32-3.57 jspw=571) MONOCYTES ABSOLUTE COUNT (BEAKER) (test 1.02 K/ L 0.30-0.82 rjib=602) EOSINOPHILS ABSOLUTE COUNT (BEAKER) (test 0.18 K/ L 0.04-0.54 hbrc=684) BASOPHILS ABSOLUTE COUNT (BEAKER) (test 0.06 K/ L 0.01-0.08 lrnv=579) IMMATURE GRANULOCYTES-RELATIVE PERCENT (BEAKER) 4 % 0-1 (test gxxx=1014) POCT-GLUCOSE [id number] 21:57:00 Test Item Value Reference Range Comments POC-GLUCOSE METER (BEAKER) 91 mg/dL 70-110 TESTED AT [facility] [address] (test gwnd=2617) [facility] [address] BASIC METABOLIC [id number] 20:35:00 Test Item Value Reference Range Comments SODIUM (BEAKER) (test 134 meq/L 136-145 bfqh=489) POTASSIUM (BEAKER) (test 4.3 meq/L 3.5-5.1 ruxp=416) CHLORIDE (BEAKER) (test 98 meq/L 98-107 cprs=585) CO2 (BEAKER) (test 17 meq/L 22-29 fnus=615) BLOOD UREA NITROGEN 83 mg/dL 7-21 (BEAKER) (test pjmf=961) CREATININE (BEAKER) (test 11.79 mg/dL 0.57-1.25 lame=094) GLUCOSE RANDOM (BEAKER) 129 mg/dL 70-105 (test lbjp=337) CALCIUM (BEAKER) (test 9.9 mg/dL 8.4-10.2 wnkl=199) EGFR (BEAKER) (test 5 mL/min/1.73 sq m ESTIMATED GFR IS NOT ywgi=3042) ACCURATE CREATININE CLEARANCE IN PREDICTING GLOMERULAR FILTRATION RATE. ESTIMATED GFR IS NOT APPLICABLE FOR DIALYSIS PATIENTS. POCT-GLUCOSE [id number] 17:48:00 Test Item Value Reference Range Comments POC-GLUCOSE METER (BEAKER) 136 mg/dL 70-110 TESTED AT [address] (test ttxe=3719) [place] [id number] POCT-GLUCOSE [id number] 12:42:00 Test Item Value Reference Range Comments POC-GLUCOSE METER (BEAKER) 109 mg/dL 70-110 TESTED AT [address] (test xfrt=2286) [place] [id number] POCT-GLUCOSE [id number] 08:25:00 Test Item Value Reference Range Comments POC-GLUCOSE METER (BEAKER) 146 mg/dL 70-110 TESTED AT [address] (test rxtj=8374) [place] [address] VANCOMYCIN LEVEL, [id number] 01:13:00 Test Item Value Reference Range Comments VANCOMYCIN RANDOM (BEAKER) (test uqpr=589) 30.1 ug/mL Reference Range: No NormalsPOCT-GLUCOSE [id number] 21:48:00 Test Item Value Reference Range Comments POC-GLUCOSE METER (BEAKER) 118 mg/dL 70-110 TESTED AT [address] (test qafh=4365) [place] [address] POCT-GLUCOSE [id number] 18:22:00 Test Item Value Reference Range Comments POC-GLUCOSE METER (BEAKER) 118 mg/dL 70-110 TESTED AT [address] (test xemt=5729) [place] [address] POCT-GLUCOSE [id number] 13:46:00 Test Item Value Reference Range Comments POC-GLUCOSE METER (BEAKER) 107 mg/dL 70-110 TESTED AT [address] (test tiic=3671) [place] [id number] POCT-GLUCOSE [id number] 08:36:00 Test Item Value Reference Range Comments POC-GLUCOSE METER (BEAKER) 107 mg/dL 70-110 TESTED AT [address] (test hwtw=8071) [place] [address] SPUTUM CULTURE + GRAM [id number] 07:38:00 Test Item Value Reference Range Comments CULTURE (BEAKER) (test 1+ Normal respiratory miller zadd=5914) present GRAM STAIN RESULT (BEAKER) 1+ WBCs (test ebnw=7166) GRAM STAIN RESULT (BEAKER) 0-5 epithelial cells (test vssi=28348) GRAM STAIN RESULT (BEAKER) 1+ gram positive cocci in pairs (test toka=37896) and clusters BASIC METABOLIC [id number] 06:57:00 Test Item Value Reference Range Comments SODIUM (BEAKER) (test 134 meq/L 136-145 easo=767) POTASSIUM (BEAKER) (test 4.4 meq/L 3.5-5.1 vzci=596) CHLORIDE (BEAKER) (test 101 meq/L 98-107 ezwj=153) CO2 (BEAKER) (test 18 meq/L 22-29 vdbl=700) BLOOD UREA NITROGEN 62 mg/dL 7-21 (BEAKER) (test stap=002) CREATININE (BEAKER) (test 9.30 mg/dL 0.57-1.25 pgpz=060) GLUCOSE RANDOM (BEAKER) 99 mg/dL 70-105 (test olpr=082) CALCIUM (BEAKER) (test 8.8 mg/dL 8.4-10.2 ngqy=112) EGFR (BEAKER) (test 7 mL/min/1.73 sq m ESTIMATED GFR IS NOT zcnb=7664) ACCURATE CREATININE CLEARANCE IN PREDICTING GLOMERULAR FILTRATION RATE. ESTIMATED GFR IS NOT APPLICABLE FOR DIALYSIS PATIENTS. [id number] 06:54:00 Test Item Value Reference Range Comments PHOSPHORUS (BEAKER) (test qizg=507) 4.9 mg/dL 2.3-4.7 [id number] 06:54:00 Test Item Value Reference Range Comments MAGNESIUM (BEAKER) (test rfpm=807) 2.2 mg/dL 1.6-2.6 CBC W/PLT COUNT & AUTO [id number] 06:38:00 Test Item Value Reference Range Comments WHITE BLOOD CELL COUNT (BEAKER) (test jokb=539) 8.4 K/ L 3.5-10.5 RED BLOOD CELL COUNT (BEAKER) (test qqrr=287) 3.47 M/ L 4.63-6.08 HEMOGLOBIN (BEAKER) (test lomd=224) 9.7 GM/DL 13.7-17.5 HEMATOCRIT (BEAKER) (test pign=593) 31.3 % 40.1-51.0 MEAN CORPUSCULAR VOLUME (BEAKER) (test khau=463) 90.2 fL 79.0-92.2 MEAN CORPUSCULAR HEMOGLOBIN (BEAKER) (test 28.0 pg 25.7-32.2 khrv=886) MEAN CORPUSCULAR HEMOGLOBIN CONC (BEAKER) (test 31.0 GM/DL 32.3-36.5 ydmd=145) RED CELL DISTRIBUTION WIDTH (BEAKER) (test 14.8 % 11.6-14.4 vggg=827) PLATELET COUNT (BEAKER) (test awqv=496) 301 K/CU MM 150-450 MEAN PLATELET VOLUME (BEAKER) (test aooz=714) 11.0 fL 9.4-12.4 NUCLEATED RED BLOOD CELLS (BEAKER) (test 0 /100 WBC 0-0 haoq=308) NEUTROPHILS RELATIVE PERCENT (BEAKER) (test 60 % apyt=978) LYMPHOCYTES RELATIVE PERCENT (BEAKER) (test 22 % uopi=325) MONOCYTES RELATIVE PERCENT (BEAKER) (test 14 % tyky=384) EOSINOPHILS RELATIVE PERCENT (BEAKER) (test 2 % vrat=263) BASOPHILS RELATIVE PERCENT (BEAKER) (test 1 % erbs=652) NEUTROPHILS ABSOLUTE COUNT (BEAKER) (test 4.99 K/ L 1.78-5.38 lhaf=935) LYMPHOCYTES ABSOLUTE COUNT (BEAKER) (test 1.84 K/ L 1.32-3.57 fstx=444) MONOCYTES ABSOLUTE COUNT (BEAKER) (test 1.19 K/ L 0.30-0.82 nazy=962) EOSINOPHILS ABSOLUTE COUNT (BEAKER) (test 0.15 K/ L 0.04-0.54 liga=654) BASOPHILS ABSOLUTE COUNT (BEAKER) (test 0.05 K/ L 0.01-0.08 oump=229) IMMATURE GRANULOCYTES-RELATIVE PERCENT (BEAKER) 2 % 0-1 (test wfux=3533) CALCIUM, [id number] 06:36:00 Test Item Value Reference Range Comments CALCIUM IONIZED (BEAKER) (test uuvj=062) 0.81 mmol/L 1.12-1.27 PH, BLOOD (BEAKER) (test lcgw=0474) 7.43 POCT-GLUCOSE [id number] 20:50:00 Test Item Value Reference Range Comments POC-GLUCOSE METER (BEAKER) 99 mg/dL 70-110 TESTED AT [address] (test otks=5719) [place] [id number] POCT-GLUCOSE [id number] 17:36:00 Test Item Value Reference Range Comments POC-GLUCOSE METER (BEAKER) 154 mg/dL 70-110 TESTED AT [address] (test mzxm=0736) [place] [id number] POCT-GLUCOSE [id number] 12:44:00 Test Item Value Reference Range Comments POC-GLUCOSE METER (BEAKER) 116 mg/dL 70-110 TESTED AT [address] (test tzoh=2188) [place] [id number] POCT-GLUCOSE [id number] 08:59:00 Test Item Value Reference Range Comments POC-GLUCOSE METER (BEAKER) 108 mg/dL 70-110 TESTED AT [address] (test qxmt=1929) [facility] [id number] (CELLAVISION MANUAL DIFF)2018-01-08 08:20:00 Test Item Value Reference Range Comments NEUTROPHILS - REL (CELLAVISION)(BEAKER) (test 63 % rilt=8869) LYMPHOCYTES - REL (CELLAVISION)(BEAKER) (test 18 % yncn=0289) MONOCYTES - REL (CELLAVISION)(BEAKER) (test 6 % xbow=6913) EOSINOPHILS - REL (CELLAVISION)(BEAKER) (test 1 % urnc=5863) BANDS - REL (CELLAVISION)(BEAKER) (test ttrj=1260) 12 % 0-10 NEUTROPHILS - ABS (CELLAVISION)(BEAKER) (test 7.12 K/ul 1.78-5.38 jgja=4994) LYMPHOCYTES - ABS (CELLAVISION)(BEAKER) (test 2.03 K/ul 1.32-3.57 ulue=1544) MONOCYTES - ABS (CELLAVISION)(BEAKER) (test 0.68 K/uL 0.30-0.82 ndwm=8474) EOSINOPHILS - ABS (CELLAVISION)(BEAKER) (test 0.11 K/uL 0.04-0.54 ktzd=1406) BANDS - ABS (CELLAVISION)(BEAKER) (test icjl=9571) 1.36 K/uL 0.00-0.80 TOTAL COUNTED (BEAKER) (test ojrl=5353) 100 WBC MORPHOLOGY (BEAKER) (test hopt=018) Normal PLT MORPHOLOGY (BEAKER) (test mfgg=536) Normal POLYCHROMATOPHILLIC RBCS(BEAKER) (test mwln=500) 1+ few ANISOCYTOSIS (BEAKER) (test dehv=545) 1+ few POIKILOCYTES (BEAKER) (test sizj=851) 1+ few ARTIFACT (CELLAVISION)(BEAKER) (test swyg=3262) Present PLATELET CONCENTRATION (CELLAVISION)(BEAKER) (test Adequate szjk=2943) Received comment: User comments: Slide comments:CALCIUM, [id number] 07:09 :00 Test Item Value Reference Range Comments CALCIUM IONIZED (BEAKER) (test favx=421) 0.94 mmol/L 1.12-1.27 PH, BLOOD (BEAKER) (test xgid=4654) 7.44 BASIC METABOLIC [id number] 06:16:00 Test Item Value Reference Range Comments SODIUM (BEAKER) (test 134 meq/L 136-145 yrsk=158) POTASSIUM (BEAKER) (test 4.5 meq/L 3.5-5.1 yyvp=632) CHLORIDE (BEAKER) (test 99 meq/L 98-107 awbx=527) CO2 (BEAKER) (test 24 meq/L 22-29 zbez=275) BLOOD UREA NITROGEN 51 mg/dL 7-21 (BEAKER) (test spoo=601) CREATININE (BEAKER) (test 8.55 mg/dL 0.57-1.25 zwwv=314) GLUCOSE RANDOM (BEAKER) 90 mg/dL 70-105 (test mxdv=654) CALCIUM (BEAKER) (test 8.8 mg/dL 8.4-10.2 jequ=713) EGFR (BEAKER) (test 8 mL/min/1.73 sq m ESTIMATED GFR IS NOT ivpx=4705) ACCURATE CREATININE CLEARANCE IN PREDICTING GLOMERULAR FILTRATION RATE. ESTIMATED GFR IS NOT APPLICABLE FOR DIALYSIS PATIENTS. [id number] 06:14:00 Test Item Value Reference Range Comments PHOSPHORUS (BEAKER) (test hnvy=439) 5.5 mg/dL 2.3-4.7 [id number] 06:14:00 Test Item Value Reference Range Comments MAGNESIUM (BEAKER) (test ifms=385) 2.3 mg/dL 1.6-2.6 HEPATIC FUNCTION [id number] 06:14:00 Test Item Value Reference Range Comments TOTAL PROTEIN (BEAKER) (test nspz=360) 7.1 gm/dL 6.0-8.3 ALBUMIN (BEAKER) (test wzye=9778) 3.5 g/dL 3.5-5.0 BILIRUBIN TOTAL (BEAKER) (test tszz=152) 0.3 mg/dL 0.2-1.2 BILIRUBIN DIRECT (BEAKER) (test jxgo=919) 0.1 mg/dL 0.1-0.5 ALKALINE PHOSPHATASE (BEAKER) (test fraj=306) 49 U/L 40-150 AST (SGOT) (BEAKER) (test unpu=335) 39 U/L 5-34 ALT (SGPT) (BEAKER) (test rlgx=888) 68 U/L 6-55 VANCOMYCIN LEVEL, [id number] 05:56:00 Test Item Value Reference Range Comments VANCOMYCIN RANDOM (BEAKER) (test nald=908) 37.1 ug/mL Reference Range: No NormalsPROTHROMBIN [id number] 05:32:00 Test Item Value Reference Range Comments PROTIME (BEAKER) (test ioxp=610) 14.1 seconds 11.7-14.7 INR (BEAKER) (test pspd=305) 1.1 <=5.9 RECOMMENDED COUMADIN/WARFARIN INR THERAPY RANGESSTANDARD DOSE: 2.0 - 3.0 Includes: PROPHYLAXIS forvenous thrombosis, systemic embolization; TREATMENT for venous thrombosis and/or pulmonary embolus.HIGH RISK: Target INR is 2.5-3.5 for patients with mechanical heart valves.CBC W/PLT COUNT & AUTO [id number] 05:27:00 Test Item Value Reference Range Comments WHITE BLOOD CELL COUNT (BEAKER) (test nkgr=068) 11.3 K/ L 3.5-10.5 RED BLOOD CELL COUNT (BEAKER) (test sdps=153) 3.38 M/ L 4.63-6.08 HEMOGLOBIN (BEAKER) (test dlkl=102) 9.5 GM/DL 13.7-17.5 HEMATOCRIT (BEAKER) (test pxmp=498) 30.5 % 40.1-51.0 MEAN CORPUSCULAR VOLUME (BEAKER) (test lpxf=273) 90.2 fL 79.0-92.2 MEAN CORPUSCULAR HEMOGLOBIN (BEAKER) (test 28.1 pg 25.7-32.2 mdqm=445) MEAN CORPUSCULAR HEMOGLOBIN CONC (BEAKER) (test 31.1 GM/DL 32.3-36.5 nxwc=983) RED CELL DISTRIBUTION WIDTH (BEAKER) (test 14.9 % 11.6-14.4 ffxe=749) PLATELET COUNT (BEAKER) (test uupn=729) 253 K/CU MM 150-450 MEAN PLATELET VOLUME (BEAKER) (test fmlg=998) 11.1 fL 9.4-12.4 NUCLEATED RED BLOOD CELLS (BEAKER) (test 0 /100 WBC 0-0 arjh=466) ANG, REMOVAL OF TUNNELED CVC W/O [id number] 21:29:00Reason for exam:-> BacteremiaFINAL REPORT Tunneled catheter removal: Pertinent clinical information: Infected catheter Conscious Sedation: No sedation Anesthesia: Two percent Lidocaine injected subcutaneously at the insertion site and tunnel. Approach: Right anterior chest wall For maximum sterile barrier protection a mask, cap, sterile gloves, sterile drape, sterile gown, and a cutaneous antiseptic wasutilized. Technique: After informed written consent was obtained, the patient was prepped and draped in the usual sterile manner. The subcutaneous tunnel was accessed in the right anterior chest wallby blunt dissection. The catheter sutures were removed. The catheter was removed. The patient tolerated the procedure well and left the department in the same condition. Impression: Successful, uncomplicated removal of a right internal jugular tunneled catheter. Signed: Evita Leslie Verified Date/Time: 01/07/2018 21:29:51 Reading Location: [facility] Radiology Reading Room POCT- GLUCOSE [id number] 21:18:00 Test Item Value Reference Range Comments POC-GLUCOSE METER (BEAKER) 138 mg/dL 70-110 TESTED AT [address] (test qsgm=7129) [place] [address] POCT-GLUCOSE [id number] 17:07:00 Test Item Value Reference Range Comments POC-GLUCOSE METER (BEAKER) 126 mg/dL 70-110 TESTED AT [address] (test lqke=9775) [place] [address] LACTIC ACID, VENOUS, WHOLE [id number] 15:44:00 Test Item Value Reference Range Comments LACTATE BLOOD VENOUS (2) 1.9 mmol/L 0.5-2.2 Specimen slightly hemolyzed (BEAKER) (test yxjz=6071) Effective 09/10/2015: Units/Reference Range ChangeNew: 0.5-2.2 mmol/L Previous: 5 -20 mg/dLPOCT-GLUCOSE [id number] 13:38:00 Test Item Value Reference Range Comments POC-GLUCOSE METER (BEAKER) 120 mg/dL 70-110 TESTED AT [address] (test cycv=4896) [place] [address] BASIC METABOLIC [id number] 11:05:00 Test Item Value Reference Range Comments SODIUM (BEAKER) (test 136 meq/L 136-145 hgev=553) POTASSIUM (BEAKER) (test 4.6 meq/L 3.5-5.1 vaba=405) CHLORIDE (BEAKER) (test 101 meq/L 98-107 zwgr=167) CO2 (BEAKER) (test 21 meq/L 22-29 jjus=357) BLOOD UREA NITROGEN 69 mg/dL 7-21 (BEAKER) (test vwqt=311) CREATININE (BEAKER) (test 11.55 mg/dL 0.57-1.25 wubf=506) GLUCOSE RANDOM (BEAKER) 83 mg/dL 70-105 (test gggl=466) CALCIUM (BEAKER) (test 9.6 mg/dL 8.4-10.2 vmzf=749) EGFR (BEAKER) (test 5 mL/min/1.73 sq m ESTIMATED GFR IS NOT xvzn=1162) ACCURATE CREATININE CLEARANCE IN PREDICTING GLOMERULAR FILTRATION RATE. ESTIMATED GFR IS NOT APPLICABLE FOR DIALYSIS PATIENTS. [id number] 10:45:00 Test Item Value Reference Range Comments PHOSPHORUS (BEAKER) (test jxrd=050) 5.6 mg/dL 2.3-4.7 [id number] 10:45:00 Test Item Value Reference Range Comments MAGNESIUM (BEAKER) (test pgef=017) 2.5 mg/dL 1.6-2.6 HEPATIC FUNCTION [id number] 10:45:00 Test Item Value Reference Range Comments TOTAL PROTEIN (BEAKER) (test awsv=964) 7.1 gm/dL 6.0-8.3 ALBUMIN (BEAKER) (test vejp=1477) 3.6 g/dL 3.5-5.0 BILIRUBIN TOTAL (BEAKER) (test cmlo=132) 0.3 mg/dL 0.2-1.2 BILIRUBIN DIRECT (BEAKER) (test zhkr=916) 0.2 mg/dL 0.1-0.5 ALKALINE PHOSPHATASE (BEAKER) (test wbmj=140) 44 U/L 40-150 AST (SGOT) (BEAKER) (test borj=633) 57 U/L 5-34 ALT (SGPT) (BEAKER) (test pszm=469) 78 U/L 6-55 HEPATITIS B SURFACE [id number] 10:16:00 Test Item Value Reference Range Comments HEPATITIS B SURFACE ANTIGEN (2) (BEAKER) (test Nonreactive Nonreactive ypcs=3325) POCT-GLUCOSE [id number] 07:59:00 Test Item Value Reference Range Comments POC-GLUCOSE METER (BEAKER) 102 mg/dL 70-110 TESTED AT [facility] [address] (test vudv=6761) [facility] [address] VITAMIN D, [id number] 07:50:00 Test Item Value Reference Range Comments VITAMIN D 25-OH (BEAKER) (test geup=8656) 47.2 ng/mL 6.6-49.9 Effective 02/16/2017: Reference Range ChangeNew: 6.6-49.9 ng/mL Previous: 13.0 -47.8 ng/mLRecommended Vitamin D Target Range: 30.0-40.0 ng/mLVANCOMYCIN LEVEL, [id number] 07:12:00 Test Item Value Reference Range Comments VANCOMYCIN RANDOM (BEAKER) (test jizc=755) 22.1 ug/mL Reference Range: No NormalsPTH, [id number] 05:52:00 Test Item Value Reference Range Comments PARATHYROID HORMONE INTACT (BEAKER) (test 198.9 pg/mL 8.5-72.5 zdfw=653) CALCIUM, [id number] 05:45:00 Test Item Value Reference Range Comments CALCIUM IONIZED (BEAKER) (test sekh=906) 0.84 mmol/L 1.12-1.27 PH, BLOOD (BEAKER) (test pwiw=9359) 7.51 PROTHROMBIN [id number] 05:13:00 Test Item Value Reference Range Comments PROTIME (BEAKER) (test ljna=605) 14.7 seconds 11.7-14.7 INR (BEAKER) (test cicw=209) 1.2 <=5.9 RECOMMENDED COUMADIN/WARFARIN INR THERAPY RANGESSTANDARD DOSE: 2.0 - 3.0 Includes: PROPHYLAXIS forvenous thrombosis, systemic embolization; TREATMENT for venous thrombosis and/or pulmonary embolus.HIGH RISK: Target INR is 2.5-3.5 for patients with mechanical heart valves.POCT-GLUCOSE [id number] 21:13:00 Test Item Value Reference Range Comments POC-GLUCOSE METER (StatAce) 92 mg/dL 70-110 TESTED AT [facility] [address] (test auzp=0635) [facility] [address] [id number] 18:56:00 Test Item Value Reference Range Comments PROCALCITONIN (BEAKER) (test qzxz=5229) 51.22 ng/mL <0.05 SEPSIS RISK (ng/mL)Low: 0.05-0.50Intermediate: 0.51-2.00High: & gt;=2.01URINALYSIS W/ [id number] 18:31:00 Test Item Value Reference Range Comments COLOR (BEAKER) (test fywp=380) Light Yellow CLARITY (BEAKER) (test flbs=924) Clear SPECIFIC GRAVITY UA (BEAKER) (test keyw=550) 1.007 1.001-1.035 PH UA (BEAKER) (test ycrb=026) 7.5 5.0-8.0 PROTEIN UA (BEAKER) (test xmtz=428) 100 mg/dL Negative GLUCOSE UA (BEAKER) (test grnf=000) 50 mg/dL Negative KETONES UA (BEAKER) (test ufny=313) Negative Negative BILIRUBIN UA (BEAKER) (test bmqw=710) Negative Negative BLOOD UA (BEAKER) (test cqbz=164) Negative Negative NITRITE UA (BEAKER) (test zamh=487) Negative Negative LEUKOCYTE ESTERASE UA (BEAKER) (test jmjg=213) Negative Negative UROBILINOGEN UA (BEAKER) (test xukh=173) 0.2 mg/dL 0.2-1.0 RBC UA (BEAKER) (test rtqj=890) < /HPF WBC UA (BEAKER) (test lmbz=821) < /HPF SOURCE(BEAKER) (test diio=2223) [id number] 17:48:00 Test Item Value Reference Range Comments PHOSPHORUS (BEAKER) (test mitv=513) 5.1 mg/dL 2.3-4.7 RAD, CHEST, 1 VIEW, NON [id number] 11:31:00Reason for exam:->chest painShould this be performed at the bedside?->YesFINAL REPORT CLINICAL HISTORY: chest pain TECHNIQUE: 1 view of the chest. COMPARISON: 01/25/2017 IMPRESSION: There is a right-sided dialysis catheter terminating near the cavoatrial junction. Bilateral mid lung atelectasis is again seen. There is no pleural fluid. The cardiomediastinal silhouette is magnified by technique. Signed: Lucy Peterseneport Verified Date/Time: 11:31:21 Reading Location: [facility] Radiology Reading Room CBC W/PLT COUNT & AUTO [id number] 11:14:00 Test Item Value Reference Range Comments WHITE BLOOD CELL COUNT (BEAKER) (test bsbg=486) 8.0 K/ L 3.5-10.5 RED BLOOD CELL COUNT (BEAKER) (test ubve=501) 3.36 M/ L 4.63-6.08 HEMOGLOBIN (BEAKER) (test omxi=638) 9.5 GM/DL 13.7-17.5 HEMATOCRIT (BEAKER) (test hmfp=651) 30.4 % 40.1-51.0 MEAN CORPUSCULAR VOLUME (BEAKER) (test ncki=147) 90.5 fL 79.0-92.2 MEAN CORPUSCULAR HEMOGLOBIN (BEAKER) (test 28.3 pg 25.7-32.2 rykd=805) MEAN CORPUSCULAR HEMOGLOBIN CONC (BEAKER) (test 31.3 GM/DL 32.3-36.5 mfgl=333) RED CELL DISTRIBUTION WIDTH (BEAKER) (test 15.1 % 11.6-14.4 kzqu=782) PLATELET COUNT (BEAKER) (test ozoa=743) 239 K/CU MM 150-450 MEAN PLATELET VOLUME (BEAKER) (test ctkj=609) 11.2 fL 9.4-12.4 NUCLEATED RED BLOOD CELLS (BEAKER) (test 0 /100 WBC 0-0 wkzx=196) (CELLAVISION MANUAL DIFF)2018-01-06 11:14:00 Test Item Value Reference Range Comments NEUTROPHILS - REL (CELLAVISION)(BEAKER) (test 56 % ejst=5596) LYMPHOCYTES - REL (CELLAVISION)(BEAKER) (test 16 % dozc=1061) MONOCYTES - REL (CELLAVISION)(BEAKER) (test 12 % vjix=6362) EOSINOPHILS - REL (CELLAVISION)(BEAKER) (test 1 % kcda=2231) BANDS - REL (CELLAVISION)(BEAKER) (test 13 % 0-10 rqxx=9791) ATYPICAL LYMPHOCYTES - REL (CELLAVISION)(BEAKER) 1 % 0-0 (test msmq=2544) NEUTROPHILS - ABS (CELLAVISION)(BEAKER) (test 4.48 K/ul 1.78-5.38 rmcs=6986) LYMPHOCYTES - ABS (CELLAVISION)(BEAKER) (test 1.28 K/ul 1.32-3.57 pzdw=7046) MONOCYTES - ABS (CELLAVISION)(BEAKER) (test 0.96 K/uL 0.30-0.82 bbbu=2688) EOSINOPHILS - ABS (CELLAVISION)(BEAKER) (test 0.08 K/uL 0.04-0.54 hqvl=8209) BANDS - ABS (CELLAVISION)(BEAKER) (test 1.04 K/uL 0.00-0.80 rcuw=3831) ATYPICAL LYMPHOCYTES - ABS (CELLAVISION)(BEAKER) 0.08 K/uL 0.00-0.00 (test ygie=0255) TOTAL COUNTED (BEAKER) (test xzai=1606) 100 MANUAL NRBC PER 100 CELLS (BEAKER) (test 2 /100 WBC 0-0 jayi=2991) SMUDGE CELLS (BEAKER) (test moss=9502) Present GIANT PLATELETS (BEAKER) (test cjmz=572) Present POLYCHROMATOPHILLIC RBCS(BEAKER) (test dmcy=397) 2+ moderate ANISOCYTOSIS (BEAKER) (test pxlw=856) 1+ few MICROCYTES (BEAKER) (test scas=148) 1+ few POIKILOCYTES (BEAKER) (test qkqn=475) 2+ moderate SCHISTOCYTES (BEAKER) (test vigq=915) 1+ few ISIDORO CELLS (BEAKER) (test ikaa=668) 1+ few ARTIFACT (CELLAVISION)(BEAKER) (test qicx=1737) Present PLATELET CONCENTRATION (CELLAVISION)(BEAKER) Adequate (test pbup=2458) Received comment: User comments: Slide comments:U/S, RENAL, [id number] 09:04:00Reason for exam:->AKIFINAL REPORT Renal ultrasound Clinical History: Kidney injury Comparison: CTwith contrast from 03/2017 Discussion: Sonographic evaluation of the kidneys is [...] or shadowing calculi. The main renal artery andvein are patent. The left kidney measures 9.5 x 3.9 x 3.9 cm. Cortical thickness is decreased and cortical echogenicity is increased. There are multiple simple appearing cysts, the largest measures 1.9x 1.5 x 1.7 cm and is located [...] Sonographic findings suggestive of chronic medical renal disease.2. Bilateral renal cysts with a solid lesion identified within the superior pole the right kidney measuring 3.0 cm. This may represent a cyst with hemorrhagic/proteinaceous content. However, a solid renal mass is not excluded and further evaluation with dedicatedrenal mass CT is recommended.3. Prostatomegaly. Signed: Jeovany Hill MDReport Verified Date/Time: 01/06/2018 09:04:28 Reading Location: [address] Ultrasound Reading Room Electronically signedby: JEOVANY HILL MD on 09:04 AMLACTIC ACID, VENOUS, WHOLE [id number] 07:15:00 Test Item Value Reference Range Comments LACTATE BLOOD VENOUS (2) (BEAKER) (test 0.6 mmol/L 0.5-2.2 jjqp=9685) Effective 09/10/2015: Units/Reference Range ChangeNew: 0.5-2.2 mmol/L Previous: 5 -20 mg/dLBASIC METABOLIC [id number] 05:48:00 Test Item Value Reference Range Comments SODIUM (BEAKER) (test 137 meq/L 136-145 qszr=394) POTASSIUM (BEAKER) (test 4.5 meq/L 3.5-5.1 bcet=348) CHLORIDE (BEAKER) (test 103 meq/L 98-107 nlmb=098) CO2 (BEAKER) (test 20 meq/L 22-29 bxyu=270) BLOOD UREA NITROGEN 63 mg/dL 7-21 (BEAKER) (test crda=210) CREATININE (BEAKER) (test 11.06 mg/dL 0.57-1.25 xbyu=358) GLUCOSE RANDOM (BEAKER) 93 mg/dL 70-105 (test oagy=320) CALCIUM (BEAKER) (test 9.5 mg/dL 8.4-10.2 vjqf=718) EGFR (BEAKER) (test 6 mL/min/1.73 sq m ESTIMATED GFR IS NOT cwxn=7732) ACCURATE CREATININE CLEARANCE IN PREDICTING GLOMERULAR FILTRATION RATE. ESTIMATED GFR IS NOT APPLICABLE FOR DIALYSIS PATIENTS. HEPATIC FUNCTION [id number] 05:45:00 Test Item Value Reference Range Comments TOTAL PROTEIN (BEAKER) (test yuez=231) 7.2 gm/dL 6.0-8.3 ALBUMIN (BEAKER) (test wzwq=5866) 3.6 g/dL 3.5-5.0 BILIRUBIN TOTAL (BEAKER) (test sukr=105) 0.3 mg/dL 0.2-1.2 BILIRUBIN DIRECT (BEAKER) (test kkkr=910) 0.2 mg/dL 0.1-0.5 ALKALINE PHOSPHATASE (BEAKER) (test gwsb=354) 46 U/L 40-150 AST (SGOT) (BEAKER) (test gtja=610) 41 U/L 5-34 ALT (SGPT) (BEAKER) (test ough=315) 54 U/L 6-55 PROTHROMBIN [id number] 05:22:00 Test Item Value Reference Range Comments PROTIME (BEAKER) (test iccx=921) 14.5 seconds 11.7-14.7 INR (BEAKER) (test mjhm=043) 1.1 <=5.9 RECOMMENDED COUMADIN/WARFARIN INR THERAPY RANGESSTANDARD DOSE: 2.0 - 3.0 Includes: PROPHYLAXIS forvenous thrombosis, systemic embolization; TREATMENT for venous thrombosis and/or pulmonary embolus.HIGH RISK: Target INR is 2.5-3.5 for patients with mechanical heart valves.ANG, TUNNELED DIALYSIS CATH [id number] 09:52:00Reason for exam:->Patient needs TDC replaced ( previously removed for line holiday in patient withMSSA/MRSA bacteremia - cx now clear)FINAL REPORT Tunneled dialysis catheter insertion. History: Renal failure. Modality: Sonography and fluoroscopy. Sedation: Versed 2.0 mg and fentanyl 100 mcg was given intravenously for conscious sedation. Vital signs were monitored throughout the procedure by a nurse, and remained stable. Physician intra-service time was 20minutes. Calcine Furnace Loader: Dimple. Fabricator Industrial Furnace: None. Approach: Right internal jugular vein Estimated blood loss: < 5 cc. Specimen : None. Fluoroscopy Time: 1.3 min. Dose (Ka,r): 133 mGy. Technique: Informed written consent was obtained. Discussion of risks, benefits, and alternatives were made with the patient. The patient expressed understanding and agreed to proceed. All elements maximalsterile barrier technique was utilized for this procedure, including utilization of sterile scrub solution for skin prep, a large sterile sheet to cover the areas of the patient that were not prepped, and hand hygiene, mask, head covering, and sterile gown for performing radiologist and scrub technologist. The skin was anesthetized with 2 % lidocaine.Ultrasound evaluation showed a patent and compressible right internal jugular vein, which was punctured under direct real-time ultrasound guidance witha micropuncture needle. An ultrasound image was saved to PACS. A 0.018 inch wire was placed through the needle into the right atrium. A 4 American micropuncture sheath was placed. A subcutaneous tunnel was created in the right anterior chest wall by blunt dissection. A 19 cm 15.5 American Duraflow 2 catheter was brought through the [...] sutured to the skin with 2-0 silk tosecure its placement. The small jugular incision site was closed using resorbable suture. Vital signs were monitored throughout the procedure by a nurse, and remained stable. The patient tolerated the procedure well and left the department in the same condition. Results: Spot radiograph of the chestdemonstrates the new dialysis catheter to lie in the expected position with its tip overlying the superior right atrium. Impression: Successful, uncomplicated placement of a right internal jugular tunneled dialysis catheter using sonographic and fluoroscopic guidance and conscious sedation. Signed:Hari Flannery MDReport Verified Date/Time: 09:52:18 Reading Location: [place] [id number] Angio Body Reading Room MISCELLANEOUS LAB [id number] 14:09:00 Test Item Value Reference Range Comments SCAN RESULT (test ahzl=[id number]) Result comments: METHICILLIN-SUSCEPTIBLE STAPH. AUREUS (MSSA) DETECTED Staphylococcus aureus DETECTED MecA NOT DETECTED First line therapy: cefazolin or nafcillin (nafcillin preferred if Central Nervous System Infection) ID consultation strongly encouraged. Other organisms and resistance markers not contained in this PCR panel cannot be excluded and follow-up of traditional culture results is required. This sample was tested at the [facility] Clinical Microbiology Laboratory using the O[employer] Blood Culture ID Panel. This test is FDA cleared for in vitro diagnostic use and has been verified and approved by the [facility] Clinical Microbiology laboratory for clinical use. Reference Range: Not DetectedBLOOD [id number] 11:00:00 Test Item Value Reference Range Comments CULTURE (BEAKER) (test ypwo=8459) No growth in 5 days BLOOD [id number] 11:00:00 Test Item Value Reference Range Comments CULTURE (BEAKER) (test zlfe=9444) No growth in 5 days BLOOD [id number] 18:00:00 Test Item Value Reference Range Comments CULTURE (BEAKER) (test azsf=0693) No growth in 5 days BLOOD [id number] 18:00:00 Test Item Value Reference Range Comments CULTURE (BEAKER) (test ujrg=0330) No growth in 5 days BASIC METABOLIC [id number] 07:03:00 Test Item Value Reference Range Comments SODIUM (BEAKER) (test 141 meq/L 136-145 njuf=831) POTASSIUM (BEAKER) (test 3.8 meq/L 3.5-5.1 sqqp=038) CHLORIDE (BEAKER) (test 105 meq/L 98-107 rckc=162) CO2 (BEAKER) (test 24 meq/L 22-29 crgh=304) BLOOD UREA NITROGEN 39 mg/dL 7-21 (BEAKER) (test uwru=170) CREATININE (BEAKER) (test 7.06 mg/dL 0.57-1.25 xppi=694) GLUCOSE RANDOM (BEAKER) 126 mg/dL 70-105 (test zsaa=541) CALCIUM (BEAKER) (test 8.9 mg/dL 8.4-10.2 nisj=810) EGFR (BEAKER) (test 10 mL/min/1.73 sq m ESTIMATED GFR IS NOT kdba=6766) ACCURATE CREATININE CLEARANCE IN PREDICTING GLOMERULAR FILTRATION RATE. ESTIMATED GFR IS NOT APPLICABLE FOR DIALYSIS PATIENTS. CBC (HEMOGRAM ONLY)2017-03-04 06:18:00 Test Item Value Reference Range Comments WHITE BLOOD CELL COUNT (BEAKER) (test xjsn=516) 6.5 K/ L 3.5-10.5 RED BLOOD CELL COUNT (BEAKER) (test jtkp=783) 3.15 M/ L 4.63-6.08 HEMOGLOBIN (BEAKER) (test acnw=996) 9.1 GM/DL 13.7-17.5 HEMATOCRIT (BEAKER) (test rtbm=474) 29.1 % 40.1-51.0 MEAN CORPUSCULAR VOLUME (BEAKER) (test eoaf=037) 92.4 fL 79.0-92.2 MEAN CORPUSCULAR HEMOGLOBIN (BEAKER) (test 28.9 pg 25.7-32.2 whad=363) MEAN CORPUSCULAR HEMOGLOBIN CONC (BEAKER) (test 31.3 GM/DL 32.3-36.5 bqkg=188) RED CELL DISTRIBUTION WIDTH (BEAKER) (test 15.8 % 11.6-14.4 nvlm=146) PLATELET COUNT (BEAKER) (test uhns=792) 295 K/CU MM 150-450 MEAN PLATELET VOLUME (BEAKER) (test xzds=178) 10.3 fL 9.4-12.4 NUCLEATED RED BLOOD CELLS (BEAKER) (test 0 /100 WBC 0-0 xgod=125) [id number] 06:15:00 Test Item Value Reference Range Comments PROTIME (BEAKER) (test mzvl=167) 14.6 seconds 11.7-14.7 INR (BEAKER) (test ldya=486) 1.2 <=5.9 PARTIAL THROMBOPLASTIN TIME (BEAKER) (test 32.5 seconds 22.5-36.0 vvjr=797) RECOMMENDED COUMADIN/WARFARIN INR THERAPY RANGESSTANDARD DOSE: 2.0 - 3.0 Includes: PROPHYLAXIS forvenous thrombosis, systemic embolization; TREATMENT for venous thrombosis and/or pulmonary embolus.HIGH RISK: Target INR is 2.5-3.5 for patients with mechanical heart valves.BASIC METABOLIC [id number] 06:38: 00 Test Item Value Reference Range Comments SODIUM (BEAKER) (test 141 meq/L 136-145 xsns=922) POTASSIUM (BEAKER) (test 4.3 meq/L 3.5-5.1 bbnt=754) CHLORIDE (BEAKER) (test 109 meq/L 98-107 jwsl=883) CO2 (BEAKER) (test 18 meq/L 22-29 gkgr=401) BLOOD UREA NITROGEN 73 mg/dL 7-21 (BEAKER) (test zvyj=418) CREATININE (BEAKER) (test 10.24 mg/dL 0.57-1.25 webr=936) GLUCOSE RANDOM (BEAKER) 92 mg/dL 70-105 (test ivci=491) CALCIUM (BEAKER) (test 8.8 mg/dL 8.4-10.2 wzmc=200) EGFR (BEAKER) (test 6 mL/min/1.73 sq m ESTIMATED GFR IS NOT khim=6390) ACCURATE CREATININE CLEARANCE IN PREDICTING GLOMERULAR FILTRATION RATE. ESTIMATED GFR IS NOT APPLICABLE FOR DIALYSIS PATIENTS. [id number] 06:26:00 Test Item Value Reference Range Comments PHOSPHORUS (BEAKER) (test fpdf=526) 5.9 mg/dL 2.3-4.7 [id number] 06:26:00 Test Item Value Reference Range Comments MAGNESIUM (BEAKER) (test zqps=399) 2.0 mg/dL 1.6-2.6 CBC W/PLT COUNT & AUTO [id number] 06:00:00 Test Item Value Reference Range Comments WHITE BLOOD CELL COUNT (BEAKER) (test tnii=459) 7.1 K/ L 3.5-10.5 RED BLOOD CELL COUNT (BEAKER) (test zilv=858) 2.89 M/ L 4.63-6.08 HEMOGLOBIN (BEAKER) (test hsdk=440) 8.3 GM/DL 13.7-17.5 HEMATOCRIT (BEAKER) (test fydb=062) 26.6 % 40.1-51.0 MEAN CORPUSCULAR VOLUME (BEAKER) (test mkur=595) 92.0 fL 79.0-92.2 MEAN CORPUSCULAR HEMOGLOBIN (BEAKER) (test 28.7 pg 25.7-32.2 cswo=078) MEAN CORPUSCULAR HEMOGLOBIN CONC (BEAKER) (test 31.2 GM/DL 32.3-36.5 enyb=476) RED CELL DISTRIBUTION WIDTH (BEAKER) (test 15.6 % 11.6-14.4 opyl=469) PLATELET COUNT (BEAKER) (test qxdh=928) 271 K/CU MM 150-450 MEAN PLATELET VOLUME (BEAKER) (test eatm=051) 10.3 fL 9.4-12.4 NUCLEATED RED BLOOD CELLS (BEAKER) (test 0 /100 WBC 0-0 wjza=024) NEUTROPHILS RELATIVE PERCENT (BEAKER) (test 61 % vhlz=270) LYMPHOCYTES RELATIVE PERCENT (BEAKER) (test 21 % ignr=444) MONOCYTES RELATIVE PERCENT (BEAKER) (test 13 % sasf=031) EOSINOPHILS RELATIVE PERCENT (BEAKER) (test 3 % mymz=290) BASOPHILS RELATIVE PERCENT (BEAKER) (test 0 % vwsk=233) NEUTROPHILS ABSOLUTE COUNT (BEAKER) (test 4.34 K/ L 1.78-5.38 qxtc=923) LYMPHOCYTES ABSOLUTE COUNT (BEAKER) (test 1.51 K/ L 1.32-3.57 uokc=796) MONOCYTES ABSOLUTE COUNT (BEAKER) (test 0.92 K/ L 0.30-0.82 bzmp=068) EOSINOPHILS ABSOLUTE COUNT (BEAKER) (test 0.20 K/ L 0.04-0.54 mser=456) BASOPHILS ABSOLUTE COUNT (BEAKER) (test 0.03 K/ L 0.01-0.08 xcuu=059) IMMATURE GRANULOCYTES-RELATIVE PERCENT (BEAKER) 1 % 0-1 (test hmqm=2313) [id number] 07:32:00 Test Item Value Reference Range Comments FERRITIN (BEAKER) (test ozia=933) 1315 ng/mL 5-275 IRON, TIBC, % SAT. (WITHOUT FERRITIN)2017-03-02 07:21:00 Test Item Value Reference Range Comments IRON (BEAKER) (test qknr=586) 129 ug/dL 40-160 TOTAL IRON BINDING CAPACITY (BEAKER) (test 189 ug/dL 250-450 epda=320) IRON % SATURATION (2) (BEAKER) (test xhit=3604) 68 % 20-55 [id number] 07:19:00 Test Item Value Reference Range Comments PHOSPHORUS (BEAKER) (test chef=571) 5.3 mg/dL 2.3-4.7 [id number] 07:19:00 Test Item Value Reference Range Comments MAGNESIUM (BEAKER) (test szpf=578) 2.2 mg/dL 1.6-2.6 BASIC METABOLIC [id number] 07:19:00 Test Item Value Reference Range Comments SODIUM (BEAKER) (test 140 meq/L 136-145 ujrv=600) POTASSIUM (BEAKER) (test 4.2 meq/L 3.5-5.1 ilaw=021) CHLORIDE (BEAKER) (test 108 meq/L 98-107 cvlr=181) CO2 (BEAKER) (test 20 meq/L 22-29 seth=387) BLOOD UREA NITROGEN 59 mg/dL 7-21 (BEAKER) (test plcm=743) CREATININE (BEAKER) (test 9.96 mg/dL 0.57-1.25 pjwv=179) GLUCOSE RANDOM (BEAKER) 103 mg/dL 70-105 (test fvzm=121) CALCIUM (BEAKER) (test 8.9 mg/dL 8.4-10.2 saor=191) EGFR (BEAKER) (test 6 mL/min/1.73 sq m ESTIMATED GFR IS NOT yvlo=0647) ACCURATE CREATININE CLEARANCE IN PREDICTING GLOMERULAR FILTRATION RATE. ESTIMATED GFR IS NOT APPLICABLE FOR DIALYSIS PATIENTS. CBC W/PLT COUNT & AUTO [id number] 06:51:00 Test Item Value Reference Range Comments WHITE BLOOD CELL COUNT (BEAKER) (test tigy=807) 6.4 K/ L 3.5-10.5 RED BLOOD CELL COUNT (BEAKER) (test umzs=837) 3.19 M/ L 4.63-6.08 HEMOGLOBIN (BEAKER) (test ukrf=234) 9.1 GM/DL 13.7-17.5 HEMATOCRIT (BEAKER) (test dzqg=203) 29.2 % 40.1-51.0 MEAN CORPUSCULAR VOLUME (BEAKER) (test kljh=883) 91.5 fL 79.0-92.2 MEAN CORPUSCULAR HEMOGLOBIN (BEAKER) (test 28.5 pg 25.7-32.2 jdhm=069) MEAN CORPUSCULAR HEMOGLOBIN CONC (BEAKER) (test 31.2 GM/DL 32.3-36.5 bnqi=875) RED CELL DISTRIBUTION WIDTH (BEAKER) (test 15.4 % 11.6-14.4 foqu=285) PLATELET COUNT (BEAKER) (test dcrk=897) 257 K/CU MM 150-450 MEAN PLATELET VOLUME (BEAKER) (test exlf=999) 10.9 fL 9.4-12.4 NUCLEATED RED BLOOD CELLS (BEAKER) (test 0 /100 WBC 0-0 lcac=843) NEUTROPHILS RELATIVE PERCENT (BEAKER) (test 56 % qxhi=744) LYMPHOCYTES RELATIVE PERCENT (BEAKER) (test 27 % zdrb=747) MONOCYTES RELATIVE PERCENT (BEAKER) (test 13 % kmrr=682) EOSINOPHILS RELATIVE PERCENT (BEAKER) (test 3 % lwrb=456) BASOPHILS RELATIVE PERCENT (BEAKER) (test 1 % vfut=947) NEUTROPHILS ABSOLUTE COUNT (BEAKER) (test 3.57 K/ L 1.78-5.38 iula=108) LYMPHOCYTES ABSOLUTE COUNT (BEAKER) (test 1.73 K/ L 1.32-3.57 vtqn=737) MONOCYTES ABSOLUTE COUNT (BEAKER) (test 0.80 K/ L 0.30-0.82 koau=101) EOSINOPHILS ABSOLUTE COUNT (BEAKER) (test 0.19 K/ L 0.04-0.54 yovl=422) BASOPHILS ABSOLUTE COUNT (BEAKER) (test 0.04 K/ L 0.01-0.08 mxmd=106) IMMATURE GRANULOCYTES-RELATIVE PERCENT (BEAKER) 1 % 0-1 (test wkvh=4117) CATHETER TIP [id number] 16:52:00 Test Item Value Reference Range Comments CULTURE (BEAKER) (test <15 Colonies On Direct Plate zylx=0053) Coagulase negative Staphylococcus CATHETER TIP [id number] 16:49:00 Test Item Value Reference Range Comments CULTURE (BEAKER) (test oemx=7207) No growth BLOOD [id number] 08:10:00 Test Item Value Reference Range Comments CULTURE (BEAKER) From Aerobic And Anaerobic (test uens=5879) Bottles Same organism has been isolated from cultures(s) of the same body site and collection date. Repeat identification and susceptibility testing performed only after consultation with the clinical microbiology laboratory.Refer to previous culture ofStaphylococcus aureus GRAM STAIN RESULT From aerobic and (BEAKER) (test anaerobic bottles: ifkx=6881) gram positive cocci in clusters BLOOD [id number] 08:08:00 Test Item Value Reference Range Comments CULTURE (BEAKER) (test mvfr=5497) Clindamycin (test code=10) Erythromycin (test code=4) Linezolid (test code=40) Oxacillin (test code=14) Rifampin (test code=43) Tetracycline (test code=2) Trimethoprim + Sulfamethoxazole (test code=47) Vancomycin (test code=13) CULTURE (BEAKER) (test METHICILLIN RESISTANT From Anaerobic Bottle bltb=9559) STAPHYLOCOCCUS AUREUS Only Staphylococcus aureus Clindamycin (test code=10) Erythromycin (test code=4) Linezolid (test code=40) Nitrofurantoin (test code=23) Oxacillin (test code=14) Rifampin (test code=43) Tetracycline (test code=2) Trimethoprim + Sulfamethoxazole (test code=47) Vancomycin (test code=13) CULTURE (BEAKER) (test From Aerobic Bottle vzck=3804) Only Methicillin resistant Staphylococcus aureus GRAM STAIN RESULT From aerobic and (BEAKER) (test azcq=4006) anaerobic bottles: gram positive cocci in clusters METHICILLIN-SUSCEPTIBLE STAPH. AUREUS (MSSA) DETECTEDStaphylococcus aureus DETECTED MecA NOT DETECTEDFirst line therapy: cefazolin or nafcillin (nafcillin preferred if Central Nervous System Infection)ID consultation strongly encouraged. Other organisms and resistance markers not contained in this PCR panel cannot be excluded and follow-up of traditional culture results is required. This sample wastested at the [facility] using the Allocab Blood Culture ID Panel. This test is FDA cleared for in vitro diagnostic use and has been verified and approved by the [facility] Clinical Microbiology laboratory for clinical use. Reference Range: Not DetectedBASIC METABOLIC [id number] 07:05:00 Test Item Value Reference Range Comments SODIUM (BEAKER) (test 141 meq/L 136-145 ytrf=340) POTASSIUM (BEAKER) (test 4.2 meq/L 3.5-5.1 zzks=510) CHLORIDE (BEAKER) (test 108 meq/L 98-107 banc=826) CO2 (BEAKER) (test 19 meq/L 22-29 zvez=375) BLOOD UREA NITROGEN 54 mg/dL 7-21 (BEAKER) (test zpyy=714) CREATININE (BEAKER) (test 9.62 mg/dL 0.57-1.25 rbim=183) GLUCOSE RANDOM (BEAKER) 108 mg/dL 70-105 (test qone=675) CALCIUM (BEAKER) (test 9.0 mg/dL 8.4-10.2 ipzd=524) EGFR (BEAKER) (test 7 mL/min/1.73 sq m ESTIMATED GFR IS NOT rvgf=7876) ACCURATE CREATININE CLEARANCE IN PREDICTING GLOMERULAR FILTRATION RATE. ESTIMATED GFR IS NOT APPLICABLE FOR DIALYSIS PATIENTS. [id number] 07:01:00 Test Item Value Reference Range Comments PHOSPHORUS (BEAKER) (test vbwb=767) 4.8 mg/dL 2.3-4.7 [id number] 07:01:00 Test Item Value Reference Range Comments MAGNESIUM (BEAKER) (test aliw=212) 2.2 mg/dL 1.6-2.6 CBC W/PLT COUNT & AUTO [id number] 06:39:00 Test Item Value Reference Range Comments WHITE BLOOD CELL COUNT (BEAKER) (test rbph=880) 5.6 K/ L 3.5-10.5 RED BLOOD CELL COUNT (BEAKER) (test ryva=346) 3.27 M/ L 4.63-6.08 HEMOGLOBIN (BEAKER) (test bpnu=509) 9.1 GM/DL 13.7-17.5 HEMATOCRIT (BEAKER) (test tewv=679) 30.2 % 40.1-51.0 MEAN CORPUSCULAR VOLUME (BEAKER) (test tihh=979) 92.4 fL 79.0-92.2 MEAN CORPUSCULAR HEMOGLOBIN (BEAKER) (test 27.8 pg 25.7-32.2 hegj=881) MEAN CORPUSCULAR HEMOGLOBIN CONC (BEAKER) (test 30.1 GM/DL 32.3-36.5 zlvs=365) RED CELL DISTRIBUTION WIDTH (BEAKER) (test 15.5 % 11.6-14.4 rkzf=357) PLATELET COUNT (BEAKER) (test cibw=638) 241 K/CU MM 150-450 MEAN PLATELET VOLUME (BEAKER) (test gjon=882) 10.9 fL 9.4-12.4 NUCLEATED RED BLOOD CELLS (BEAKER) (test 0 /100 WBC 0-0 asla=332) NEUTROPHILS RELATIVE PERCENT (BEAKER) (test 57 % hsiq=904) LYMPHOCYTES RELATIVE PERCENT (BEAKER) (test 26 % nvns=710) MONOCYTES RELATIVE PERCENT (BEAKER) (test 13 % bliz=678) EOSINOPHILS RELATIVE PERCENT (BEAKER) (test 4 % hnbi=749) BASOPHILS RELATIVE PERCENT (BEAKER) (test 0 % xmjt=614) NEUTROPHILS ABSOLUTE COUNT (BEAKER) (test 3.19 K/ L 1.78-5.38 nrpv=820) LYMPHOCYTES ABSOLUTE COUNT (BEAKER) (test 1.43 K/ L 1.32-3.57 vznn=181) MONOCYTES ABSOLUTE COUNT (BEAKER) (test 0.72 K/ L 0.30-0.82 jxhv=463) EOSINOPHILS ABSOLUTE COUNT (BEAKER) (test 0.20 K/ L 0.04-0.54 recn=810) BASOPHILS ABSOLUTE COUNT (BEAKER) (test 0.02 K/ L 0.01-0.08 aswu=955) IMMATURE GRANULOCYTES-RELATIVE PERCENT (BEAKER) 1 % 0-1 (test wedb=0743) [id number] 23:09:00 Test Item Value Reference Range Comments SODIUM (BEAKER) (test hzeq=470) 141 meq/L 136-145 POTASSIUM (BEAKER) (test ryzo=274) 4.2 meq/L 3.5-5.1 CHLORIDE (BEAKER) (test mzwx=861) 106 meq/L 98-107 CO2 (BEAKER) (test lmfj=653) 22 meq/L 22-29 BASIC METABOLIC [id number] 13:19:00 Test Item Value Reference Range Comments SODIUM (BEAKER) (test 139 meq/L 136-145 meua=183) POTASSIUM (BEAKER) (test 4.1 meq/L 3.5-5.1 evkr=770) CHLORIDE (BEAKER) (test 105 meq/L 98-107 inyg=441) CO2 (BEAKER) (test 26 meq/L 22-29 sabl=704) BLOOD UREA NITROGEN 43 mg/dL 7-21 (BEAKER) (test rijz=120) CREATININE (BEAKER) (test 8.36 mg/dL 0.57-1.25 ynbf=268) GLUCOSE RANDOM (BEAKER) 92 mg/dL 70-105 (test eetw=633) CALCIUM (BEAKER) (test 9.0 mg/dL 8.4-10.2 pnau=187) EGFR (BEAKER) (test 8 mL/min/1.73 sq m ESTIMATED GFR IS NOT bhby=0323) ACCURATE CREATININE CLEARANCE IN PREDICTING GLOMERULAR FILTRATION RATE. ESTIMATED GFR IS NOT APPLICABLE FOR DIALYSIS PATIENTS. [id number] 13:11:00 Test Item Value Reference Range Comments PHOSPHORUS (BEAKER) (test lkpb=974) 3.6 mg/dL 2.3-4.7 [id number] 13:11:00 Test Item Value Reference Range Comments MAGNESIUM (BEAKER) (test hllz=076) 2.1 mg/dL 1.6-2.6 CBC W/PLT COUNT & AUTO [id number] 12:55:00 Test Item Value Reference Range Comments WHITE BLOOD CELL COUNT (BEAKER) (test gavd=588) 5.6 K/ L 3.5-10.5 RED BLOOD CELL COUNT (BEAKER) (test mckd=380) 3.06 M/ L 4.63-6.08 HEMOGLOBIN (BEAKER) (test grok=740) 8.5 GM/DL 13.7-17.5 HEMATOCRIT (BEAKER) (test swjy=572) 28.1 % 40.1-51.0 MEAN CORPUSCULAR VOLUME (BEAKER) (test quqh=357) 91.8 fL 79.0-92.2 MEAN CORPUSCULAR HEMOGLOBIN (BEAKER) (test 27.8 pg 25.7-32.2 xplj=468) MEAN CORPUSCULAR HEMOGLOBIN CONC (BEAKER) (test 30.2 GM/DL 32.3-36.5 xoqh=467) RED CELL DISTRIBUTION WIDTH (BEAKER) (test 15.7 % 11.6-14.4 tidc=301) PLATELET COUNT (BEAKER) (test waan=020) 175 K/CU MM 150-450 MEAN PLATELET VOLUME (BEAKER) (test nkkq=349) 10.5 fL 9.4-12.4 NUCLEATED RED BLOOD CELLS (BEAKER) (test 0 /100 WBC 0-0 uqlo=404) NEUTROPHILS RELATIVE PERCENT (BEAKER) (test 52 % yyst=888) LYMPHOCYTES RELATIVE PERCENT (BEAKER) (test 23 % flxm=895) MONOCYTES RELATIVE PERCENT (BEAKER) (test 22 % cplx=213) EOSINOPHILS RELATIVE PERCENT (BEAKER) (test 3 % nubo=170) BASOPHILS RELATIVE PERCENT (BEAKER) (test 0 % rxsh=167) NEUTROPHILS ABSOLUTE COUNT (BEAKER) (test 2.90 K/ L 1.78-5.38 ybgg=151) LYMPHOCYTES ABSOLUTE COUNT (BEAKER) (test 1.28 K/ L 1.32-3.57 psab=878) MONOCYTES ABSOLUTE COUNT (BEAKER) (test 1.23 K/ L 0.30-0.82 fvsc=103) EOSINOPHILS ABSOLUTE COUNT (BEAKER) (test 0.14 K/ L 0.04-0.54 lvlx=627) BASOPHILS ABSOLUTE COUNT (BEAKER) (test 0.02 K/ L 0.01-0.08 ncjk=045) IMMATURE GRANULOCYTES-RELATIVE PERCENT (BEAKER) 0 % 0-1 (test cywu=3161) ANG, REMOVAL OF TUNNELED CVC [id number] 12:44:00Reason for exam:->ESRD bacteremia concern for line [...] tunneled dialysis catheter removal as described. Signed: Eusebia Brooks MDReport Verified Date/ Time: 02/27/2017 12:44:21 Reading Location: [place] [address] Angio BodyReading Room VANCOMYCIN LEVEL, [id number] 05:46:00 Test Item Value Reference Range Comments VANCOMYCIN RANDOM (BEAKER) (test okdc=242) 20.4 ug/mL Reference Range: No NormalsHEPATITIS B SURFACE [id number] 15:33:00 Test Item Value Reference Range Comments HEPATITIS B SURFACE ANTIGEN (2) (BEAKER) (test Nonreactive Nonreactive yynm=4392) CBC W/PLT COUNT & AUTO [id number] 07:12:00 Test Item Value Reference Range Comments WHITE BLOOD CELL COUNT (BEAKER) (test kmpe=649) 13.9 K/ L 3.5-10.5 RED BLOOD CELL COUNT (BEAKER) (test qqkl=125) 3.00 M/ L 4.63-6.08 HEMOGLOBIN (BEAKER) (test zftg=927) 8.6 GM/DL 13.7-17.5 HEMATOCRIT (BEAKER) (test auhs=614) 27.4 % 40.1-51.0 MEAN CORPUSCULAR VOLUME (BEAKER) (test slpl=851) 91.3 fL 79.0-92.2 MEAN CORPUSCULAR HEMOGLOBIN (BEAKER) (test 28.7 pg 25.7-32.2 xxva=880) MEAN CORPUSCULAR HEMOGLOBIN CONC (BEAKER) (test 31.4 GM/DL 32.3-36.5 hzuj=534) RED CELL DISTRIBUTION WIDTH (BEAKER) (test 15.9 % 11.6-14.4 rpwa=410) PLATELET COUNT (BEAKER) (test dpso=672) 154 K/CU MM 150-450 MEAN PLATELET VOLUME (BEAKER) (test jvdm=483) 10.9 fL 9.4-12.4 NUCLEATED RED BLOOD CELLS (BEAKER) (test 0 /100 WBC 0-0 crgb=547) NEUTROPHILS RELATIVE PERCENT (BEAKER) (test 78 % zszc=129) LYMPHOCYTES RELATIVE PERCENT (BEAKER) (test 9 % cuws=868) MONOCYTES RELATIVE PERCENT (BEAKER) (test 12 % ferm=104) EOSINOPHILS RELATIVE PERCENT (BEAKER) (test 1 % ezeh=219) BASOPHILS RELATIVE PERCENT (BEAKER) (test 0 % veym=060) NEUTROPHILS ABSOLUTE COUNT (BEAKER) (test 10.84 K/ L 1.78-5.38 vavx=629) LYMPHOCYTES ABSOLUTE COUNT (BEAKER) (test 1.22 K/ L 1.32-3.57 foke=815) MONOCYTES ABSOLUTE COUNT (BEAKER) (test 1.67 K/ L 0.30-0.82 tbwy=366) EOSINOPHILS ABSOLUTE COUNT (BEAKER) (test 0.08 K/ L 0.04-0.54 afyz=086) BASOPHILS ABSOLUTE COUNT (BEAKER) (test 0.02 K/ L 0.01-0.08 lkoq=994) IMMATURE GRANULOCYTES-RELATIVE PERCENT (BEAKER) 1 % 0-1 (test nqsm=7138) BASIC METABOLIC [id number] 06:47:00 Test Item Value Reference Range Comments SODIUM (BEAKER) (test 136 meq/L 136-145 fujy=506) POTASSIUM (BEAKER) (test 4.5 meq/L 3.5-5.1 ycwq=070) CHLORIDE (BEAKER) (test 106 meq/L 98-107 nees=328) CO2 (BEAKER) (test 21 meq/L 22-29 lypa=909) BLOOD UREA NITROGEN 50 mg/dL 7-21 (BEAKER) (test clbx=642) CREATININE (BEAKER) (test 8.92 mg/dL 0.57-1.25 txqy=193) GLUCOSE RANDOM (BEAKER) 92 mg/dL 70-105 (test enwg=474) CALCIUM (BEAKER) (test 8.7 mg/dL 8.4-10.2 qwbx=517) EGFR (BEAKER) (test 7 mL/min/1.73 sq m ESTIMATED GFR IS NOT xfpa=5199) ACCURATE CREATININE CLEARANCE IN PREDICTING GLOMERULAR FILTRATION RATE. ESTIMATED GFR IS NOT APPLICABLE FOR DIALYSIS PATIENTS. [id number] 06:43:00 Test Item Value Reference Range Comments PHOSPHORUS (BEAKER) (test kchf=765) 3.0 mg/dL 2.3-4.7 PROTHROMBIN [id number] 06:07:00 Test Item Value Reference Range Comments PROTIME (BEAKER) (test oewy=809) 15.2 seconds 11.7-14.7 INR (BEAKER) (test npnd=266) 1.2 <=5.9 RECOMMENDED COUMADIN/WARFARIN INR THERAPY RANGESSTANDARD DOSE: 2.0 - 3.0 Includes: PROPHYLAXIS forvenous thrombosis, systemic embolization; TREATMENT for venous thrombosis and/or pulmonary embolus.HIGH RISK: Target INR is 2.5-3.5 for patients with mechanical heart valves.LATASHA TUNNELED DIALYSIS CATH [id number] 07:52:00FINAL REPORT Tunneled dialysis catheter insertion, 01/25/2017. History: Renal failure. Modality: Sonography and fluoroscopy. Sedation: Versed 1.0 mg and fentanyl 100 mcg was given intravenously for conscious sedation. Vital signs were monitored throughout the procedure by a nurse, and remained stable. Physician intra- servicetime was 20 minutes. Calcine Furnace Loader: Dimple. Fabricator Industrial Furnace: None. Approach: Right internal jugular vein Estimated [...] needle into the right atrium. A 4 American micropuncture sheath was placed. A subcutaneous tunnel was created in the right anterior chest wall by blunt dissection. A 19 cm 15.5 American Duraflow 2 catheter was brought through the [...] guidance and conscious sedation. Signed: [facility]annery [facility] Verified Date/Time: 01/26/2017 07:52:45 Reading Location: [place] [id number] Angio Body Reading Room POCT- GLUCOSE [id number] 01:07:00 Test Item Value Reference Range Comments POC-GLUCOSE METER (BEAKER) 179 mg/dL 70-110 TESTED AT [facility] [address] [facility] (test qsxz=4817) [facility] [address] BASIC METABOLIC [id number] 21:57:00 Test Item Value Reference Range Comments SODIUM (BEAKER) (test 139 meq/L 136-145 sgvv=165) POTASSIUM (BEAKER) (test 3.9 meq/L 3.5-5.1 vnao=436) CHLORIDE (BEAKER) (test 105 meq/L 98-107 oibl=334) CO2 (BEAKER) (test 21 meq/L 22-29 dvvg=047) BLOOD UREA NITROGEN 33 mg/dL 7-21 (BEAKER) (test wduo=098) CREATININE (BEAKER) (test 6.75 mg/dL 0.57-1.25 bfsj=259) GLUCOSE RANDOM (BEAKER) 166 mg/dL 70-105 (test wekx=756) CALCIUM (BEAKER) (test 9.4 mg/dL 8.4-10.2 vxuy=199) EGFR (BEAKER) (test 10 mL/min/1.73 sq m ESTIMATED GFR IS NOT rtga=3442) ACCURATE CREATININE CLEARANCE IN PREDICTING GLOMERULAR FILTRATION RATE. ESTIMATED GFR IS NOT APPLICABLE FOR DIALYSIS PATIENTS. CREATINE KINASE (CK), TOTAL AND [id number] 21:52:00 Test Item Value Reference Range Comments CREATINE KINASE TOTAL (BEAKER) (test qhoy=640) 159 U/L 29-200 CREATINE KINASE-MB (BEAKER) (test ttsp=324) 0.8 ng/mL 0.0-6.6 CREATINE KINASE-MB INDEX (BEAKER) (test prfb=336) 0.5 % CK-MB Reference Range:<6.7 Normal6.7-10.0 Borderline>10.0 AbnormalRAD, CHEST, 1 VIEW, NON [id number] 21:52:00Reason for exam:-> CHEST PAINShould this be [...] that terminates in the low SVC. Signed:David Thompson MDReport Verified Date/ Time: 01/25/2017 21:52:27 Reading Location: [address] Consult Reading Room TROPONIKaran [id number] 21:27:00 Test Item Value Reference Range Comments TROPONIN I (BEAKER) (test wlsx=728) 0.01 ng/mL 0.00-0.03 Troponin I (TnI) levels [...] and persistent tachyarrhythmia.CBC W/PLT COUNT & AUTO [id number] 21:06:00 Test Item Value Reference Range Comments WHITE BLOOD CELL COUNT (BEAKER) (test zzwn=020) 9.3 K/ L 3.5-10.5 RED BLOOD CELL COUNT (BEAKER) (test ygis=255) 3.86 M/ L 4.63-6.08 HEMOGLOBIN (BEAKER) (test caqt=977) 10.8 GM/DL 13.7-17.5 HEMATOCRIT (BEAKER) (test tyvh=009) 34.4 % 40.1-51.0 MEAN CORPUSCULAR VOLUME (BEAKER) (test rerl=903) 89.1 fL 79.0-92.2 MEAN CORPUSCULAR HEMOGLOBIN (BEAKER) (test 28.0 pg 25.7-32.2 dzje=037) MEAN CORPUSCULAR HEMOGLOBIN CONC (BEAKER) (test 31.4 GM/DL 32.3-36.5 ftgi=238) RED CELL DISTRIBUTION WIDTH (BEAKER) (test 15.1 % 11.6-14.4 uemk=805) PLATELET COUNT (BEAKER) (test qrwu=360) 238 K/CU MM 150-450 MEAN PLATELET VOLUME (BEAKER) (test caoe=586) 10.3 fL 9.4-12.4 NUCLEATED RED BLOOD CELLS (BEAKER) (test 0 /100 WBC 0-0 wyjk=759) NEUTROPHILS RELATIVE PERCENT (BEAKER) (test 71 % rflq=217) LYMPHOCYTES RELATIVE PERCENT (BEAKER) (test 16 % ocyi=259) MONOCYTES RELATIVE PERCENT (BEAKER) (test 10 % nggb=756) EOSINOPHILS RELATIVE PERCENT (BEAKER) (test 1 % cygr=215) BASOPHILS RELATIVE PERCENT (BEAKER) (test 0 % tqhk=406) NEUTROPHILS ABSOLUTE COUNT (BEAKER) (test 6.59 K/ L 1.78-5.38 yzsw=225) LYMPHOCYTES ABSOLUTE COUNT (BEAKER) (test 1.52 K/ L 1.32-3.57 vlfn=670) MONOCYTES ABSOLUTE COUNT (BEAKER) (test 0.88 K/ L 0.30-0.82 bgoo=995) EOSINOPHILS ABSOLUTE COUNT (BEAKER) (test 0.10 K/ L 0.04-0.54 isxq=805) BASOPHILS ABSOLUTE COUNT (BEAKER) (test 0.03 K/ L 0.01-0.08 pixk=281) IMMATURE GRANULOCYTES-RELATIVE PERCENT (BEAKER) 2 % 0-1 (test cmwf=5020) HEPATITIS B SURFACE [id number] 15:55:00 Test Item Value Reference Range Comments HEPATITIS B SURFACE ANTIGEN (2) (BEAKER) (test Nonreactive Nonreactive wrid=6186) BASIC METABOLIC [id number] 07:30:00 Test Item Value Reference Range Comments SODIUM (BEAKER) (test 138 meq/L 136-145 sckr=586) POTASSIUM (BEAKER) (test 4.8 meq/L 3.5-5.1 wraa=687) CHLORIDE (BEAKER) (test 109 meq/L 98-107 hrfs=647) CO2 (BEAKER) (test 17 meq/L 22-29 inzt=634) BLOOD UREA NITROGEN 75 mg/dL 7-21 (BEAKER) (test gpcp=136) CREATININE (BEAKER) (test 11.02 mg/dL 0.57-1.25 uzgz=191) GLUCOSE RANDOM (BEAKER) 99 mg/dL 70-105 (test ipgf=865) CALCIUM (BEAKER) (test 8.6 mg/dL 8.4-10.2 inuw=488) EGFR (BEAKER) (test 6 mL/min/1.73 sq m ESTIMATED GFR IS NOT chxb=1412) ACCURATE CREATININE CLEARANCE IN PREDICTING GLOMERULAR FILTRATION RATE. ESTIMATED GFR IS NOT APPLICABLE FOR DIALYSIS PATIENTS. [id number] 07:18:00 Test Item Value Reference Range Comments PHOSPHORUS (BEAKER) (test ianu=896) 5.9 mg/dL 2.3-4.7 [id number] 07:18:00 Test Item Value Reference Range Comments MAGNESIUM (BEAKER) (test mkpn=819) 2.2 mg/dL 1.6-2.6 PROTHROMBIN [id number] 06:43:00 Test Item Value Reference Range Comments PROTIME (BEAKER) (test dqvv=473) 13.6 seconds 11.7-14.7 INR (BEAKER) (test ueum=177) 1.1 <=5.9 RECOMMENDED COUMADIN/WARFARIN INR THERAPY RANGESSTANDARD DOSE: 2.0 - 3.0 Includes: PROPHYLAXIS forvenous thrombosis, systemic embolization; TREATMENT for venous thrombosis and/or pulmonary embolus.HIGH RISK: Target INR is 2.5-3.5 for patients with mechanical heart valves.CBC W/PLT COUNT & AUTO [id number] 06:42:00 Test Item Value Reference Range Comments WHITE BLOOD CELL COUNT (BEAKER) (test xirm=109) 8.4 K/ L 3.5-10.5 RED BLOOD CELL COUNT (BEAKER) (test xoso=946) 3.48 M/ L 4.63-6.08 HEMOGLOBIN (BEAKER) (test atui=935) 9.8 GM/DL 13.7-17.5 HEMATOCRIT (BEAKER) (test ylda=321) 31.4 % 40.1-51.0 MEAN CORPUSCULAR VOLUME (BEAKER) (test aiuj=953) 90.2 fL 79.0-92.2 MEAN CORPUSCULAR HEMOGLOBIN (BEAKER) (test 28.2 pg 25.7-32.2 bons=985) MEAN CORPUSCULAR HEMOGLOBIN CONC (BEAKER) (test 31.2 GM/DL 32.3-36.5 dsvx=764) RED CELL DISTRIBUTION WIDTH (BEAKER) (test 15.1 % 11.6-14.4 wzhm=477) PLATELET COUNT (BEAKER) (test pyfg=251) 240 K/CU MM 150-450 MEAN PLATELET VOLUME (BEAKER) (test uamo=735) 10.9 fL 9.4-12.4 NUCLEATED RED BLOOD CELLS (BEAKER) (test 0 /100 WBC 0-0 rxqy=908) NEUTROPHILS RELATIVE PERCENT (BEAKER) (test 67 % blid=599) LYMPHOCYTES RELATIVE PERCENT (BEAKER) (test 18 % wplc=839) MONOCYTES RELATIVE PERCENT (BEAKER) (test 12 % wzqo=066) EOSINOPHILS RELATIVE PERCENT (BEAKER) (test 2 % oiuh=919) BASOPHILS RELATIVE PERCENT (BEAKER) (test 0 % wdzs=077) NEUTROPHILS ABSOLUTE COUNT (BEAKER) (test 5.66 K/ L 1.78-5.38 mvfq=653) LYMPHOCYTES ABSOLUTE COUNT (BEAKER) (test 1.50 K/ L 1.32-3.57 iqyf=627) MONOCYTES ABSOLUTE COUNT (BEAKER) (test 1.03 K/ L 0.30-0.82 rzbs=331) EOSINOPHILS ABSOLUTE COUNT (BEAKER) (test 0.13 K/ L 0.04-0.54 empd=389) BASOPHILS ABSOLUTE COUNT (BEAKER) (test 0.02 K/ L 0.01-0.08 gatk=954) IMMATURE GRANULOCYTES-RELATIVE PERCENT (BEAKER) 1 % 0-1 (test zkft=5788) CBC W/PLT COUNT & AUTO [id number] 14:36:00 Test Item Value Reference Range Comments WHITE BLOOD CELL COUNT (BEAKER) (test blsr=488) 9.4 K/ L 4.0-10.0 RED BLOOD CELL COUNT (BEAKER) (test phxm=496) 2.90 M/ L 4.20-5.80 HEMOGLOBIN (BEAKER) (test tjjj=010) 8.5 GM/DL 13.0-16.8 HEMATOCRIT (BEAKER) (test wuig=604) 28.6 % 40.0-50.0 MEAN CORPUSCULAR VOLUME (BEAKER) (test rqwa=446) 98.5 fL 82.0-98.0 MEAN CORPUSCULAR HEMOGLOBIN (BEAKER) (test 29.2 pg 27.0-33.0 gmnu=691) MEAN CORPUSCULAR HEMOGLOBIN CONC (BEAKER) (test 29.7 GM/DL 32.0-36.0 xijq=924) RED CELL DISTRIBUTION WIDTH (BEAKER) (test 16.2 % 10.3-14.2 klmi=593) PLATELET COUNT (BEAKER) (test wnty=950) 238 K/CU MM 150-430 MEAN PLATELET VOLUME (BEAKER) (test gswm=026) 8.7 fL 6.5-10.5 NUCLEATED RED BLOOD CELLS (BEAKER) (test 1 /100 WBC 0-0 ebco=198) NEUTROPHILS RELATIVE PERCENT (BEAKER) (test 94 % aazn=053) LYMPHOCYTES RELATIVE PERCENT (BEAKER) (test 3 % dtzr=604) MONOCYTES RELATIVE PERCENT (BEAKER) (test 2 % ewen=567) EOSINOPHILS RELATIVE PERCENT (BEAKER) (test 0 % mjya=834) BASOPHILS RELATIVE PERCENT (BEAKER) (test 0 % ajkv=155) NEUTROPHILS ABSOLUTE COUNT (BEAKER) (test 8.82 K/ L 1.80-8.00 tmed=879) LYMPHOCYTES ABSOLUTE COUNT (BEAKER) (test 0.31 K/ L 1.48-4.50 cwxz=169) MONOCYTES ABSOLUTE COUNT (BEAKER) (test 0.23 K/ L 0.00-1.30 ygjh=922) EOSINOPHILS ABSOLUTE COUNT (BEAKER) (test 0.02 K/ L 0.00-0.50 kjfy=479) BASOPHILS ABSOLUTE COUNT (BEAKER) (test 0.00 K/ L 0.00-0.20 birn=616) 0.00(MANUAL DIFFERENTIAL)2016-08-28 14:36:00 Test Item Value Reference Range Comments TOTAL COUNTED (BEAKER) (test azbc=8422) WBC MORPHOLOGY (BEAKER) (test kezn=487) Normal GIANT PLATELETS (BEAKER) (test jdui=349) Present SCHISTOCYTES (BEAKER) (test ncac=115) 1+ few ACANTHOCYTES (BEAKER) (test cxvz=290) 1+ few ANISOCYTOSIS (BEAKER) (test gbah=851) 2+ moderate HYPOCHROMIA (BEAKER) (test vzaq=964) 1+ few MACROCYTES (BEAKER) (test mzzn=491) 2+ moderate MICROCYTES (BEAKER) (test lvxm=525) 1+ few OVALOCYTES (BEAKER) (test ostj=305) 1+ few POIKILOCYTES (BEAKER) (test nxsd=210) 2+ moderate POLYCHROMATOPHILLIC RBCS(BEAKER) (test xhpk=601) 1+ few TARGET CELLS (BEAKER) (test iczd=335) 1+ few BASIC METABOLIC [id number] 07:18:00 Test Item Value Reference Range Comments SODIUM (BEAKER) (test 141 meq/L 136-145 lmle=981) POTASSIUM (BEAKER) (test 4.7 meq/L 3.5-5.1 nnwu=778) CHLORIDE (BEAKER) (test 107 meq/L 98-107 ruvc=867) CO2 (BEAKER) (test 20 meq/L 22-29 mzgb=606) BLOOD UREA NITROGEN 60 mg/dL 7-21 (BEAKER) (test fvbs=550) CREATININE (BEAKER) (test 7.34 mg/dL 0.57-1.25 cxvd=603) GLUCOSE RANDOM (BEAKER) 161 mg/dL 70-105 (test qnyi=647) CALCIUM (BEAKER) (test 8.5 mg/dL 8.4-10.2 yrcu=226) EGFR (BEAKER) (test 9 mL/min/1.73 sq m ESTIMATED GFR IS NOT zeau=3245) ACCURATE CREATININE CLEARANCE IN PREDICTING GLOMERULAR FILTRATION RATE. ESTIMATED GFR IS NOT APPLICABLE FOR DIALYSIS PATIENTS. [id number] 07:11:00 Test Item Value Reference Range Comments PHOSPHORUS (BEAKER) (test mpmc=921) 3.7 mg/dL 2.3-4.7 CBC W/PLT COUNT & AUTO [id number] 11:27:00 Test Item Value Reference Range Comments WHITE BLOOD CELL COUNT (BEAKER) (test rfuw=832) 10.9 K/ L 4.0-10.0 RED BLOOD CELL COUNT (BEAKER) (test oeca=810) 3.06 M/ L 4.20-5.80 HEMOGLOBIN (BEAKER) (test xjhw=585) 9.3 GM/DL 13.0-16.8 HEMATOCRIT (BEAKER) (test ycic=452) 30.3 % 40.0-50.0 MEAN CORPUSCULAR VOLUME (BEAKER) (test wqcr=073) 99.0 fL 82.0-98.0 MEAN CORPUSCULAR HEMOGLOBIN (BEAKER) (test 30.5 pg 27.0-33.0 luca=420) MEAN CORPUSCULAR HEMOGLOBIN CONC (BEAKER) (test 30.8 GM/DL 32.0-36.0 kmbe=930) RED CELL DISTRIBUTION WIDTH (BEAKER) (test 16.5 % 10.3-14.2 mfpq=598) PLATELET COUNT (BEAKER) (test txef=016) 253 K/CU MM 150-430 MEAN PLATELET VOLUME (BEAKER) (test soak=528) 8.7 fL 6.5-10.5 NUCLEATED RED BLOOD CELLS (BEAKER) (test 1 /100 WBC 0-0 rstn=580) NEUTROPHILS RELATIVE PERCENT (BEAKER) (test 92 % hgnu=191) LYMPHOCYTES RELATIVE PERCENT (BEAKER) (test 4 % rkzc=305) MONOCYTES RELATIVE PERCENT (BEAKER) (test 3 % zvpc=731) EOSINOPHILS RELATIVE PERCENT (BEAKER) (test 0 % mzik=673) BASOPHILS RELATIVE PERCENT (BEAKER) (test 0 % gabs=203) NEUTROPHILS ABSOLUTE COUNT (BEAKER) (test 10.00 K/ L 1.80-8.00 thsv=783) LYMPHOCYTES ABSOLUTE COUNT (BEAKER) (test 0.44 K/ L 1.48-4.50 aqck=344) MONOCYTES ABSOLUTE COUNT (BEAKER) (test 0.37 K/ L 0.00-1.30 pljs=963) EOSINOPHILS ABSOLUTE COUNT (BEAKER) (test 0.01 K/ L 0.00-0.50 izjl=167) BASOPHILS ABSOLUTE COUNT (BEAKER) (test 0.00 K/ L 0.00-0.20 nmmw=192) 0.00(MANUAL DIFFERENTIAL)2016-08-27 11:27:00 Test Item Value Reference Range Comments TOTAL COUNTED (BEAKER) (test lhlb=6498) WBC MORPHOLOGY (BEAKER) (test cmdu=597) Normal PLT MORPHOLOGY (BEAKER) (test tsvc=553) Normal POLYCHROMATOPHILLIC RBCS(BEAKER) (test eyto=258) 1+ few BASIC METABOLIC [id number] 08:40:00 Test Item Value Reference Range Comments SODIUM (BEAKER) (test 138 meq/L 136-145 itor=021) POTASSIUM (BEAKER) (test 4.3 meq/L 3.5-5.1 xzut=653) CHLORIDE (BEAKER) (test 103 meq/L 98-107 jjry=141) CO2 (BEAKER) (test 23 meq/L 22-29 ulzh=615) BLOOD UREA NITROGEN 35 mg/dL 7-21 (BEAKER) (test bbof=223) CREATININE (BEAKER) (test 6.29 mg/dL 0.57-1.25 txav=362) GLUCOSE RANDOM (BEAKER) 136 mg/dL 70-105 (test pgde=128) CALCIUM (BEAKER) (test 8.8 mg/dL 8.4-10.2 toxn=815) EGFR (BEAKER) (test 11 mL/min/1.73 sq m ESTIMATED GFR IS NOT nebe=7641) ACCURATE CREATININE CLEARANCE IN PREDICTING GLOMERULAR FILTRATION RATE. ESTIMATED GFR IS NOT APPLICABLE FOR DIALYSIS PATIENTS. [id number] 08:38:00 Test Item Value Reference Range Comments PHOSPHORUS (BEAKER) (test mgzc=502) 4.0 mg/dL 2.3-4.7 CBC W/PLT COUNT & AUTO [id number] 13:06:00 Test Item Value Reference Range Comments WHITE BLOOD CELL COUNT (BEAKER) (test gooa=247) 13.0 K/ L 4.0-10.0 RED BLOOD CELL COUNT (BEAKER) (test sxua=851) 2.94 M/ L 4.20-5.80 HEMOGLOBIN (BEAKER) (test qocl=606) 9.5 GM/DL 13.0-16.8 HEMATOCRIT (BEAKER) (test tjeo=064) 28.8 % 40.0-50.0 MEAN CORPUSCULAR VOLUME (BEAKER) (test kzzo=758) 98.1 fL 82.0-98.0 MEAN CORPUSCULAR HEMOGLOBIN (BEAKER) (test 32.4 pg 27.0-33.0 lwal=672) MEAN CORPUSCULAR HEMOGLOBIN CONC (BEAKER) (test 33.0 GM/DL 32.0-36.0 ftjt=172) RED CELL DISTRIBUTION WIDTH (BEAKER) (test 16.9 % 10.3-14.2 jjie=753) PLATELET COUNT (BEAKER) (test ednc=862) 243 K/CU MM 150-430 MEAN PLATELET VOLUME (BEAKER) (test mvbq=384) 8.7 fL 6.5-10.5 NUCLEATED RED BLOOD CELLS (BEAKER) (test 0 /100 WBC 0-0 fehz=680) NEUTROPHILS RELATIVE PERCENT (BEAKER) (test 92 % yfjm=656) LYMPHOCYTES RELATIVE PERCENT (BEAKER) (test 5 % hjay=599) MONOCYTES RELATIVE PERCENT (BEAKER) (test 2 % kvth=397) EOSINOPHILS RELATIVE PERCENT (BEAKER) (test 0 % iyty=825) BASOPHILS RELATIVE PERCENT (BEAKER) (test 0 % uaao=914) NEUTROPHILS ABSOLUTE COUNT (BEAKER) (test 12.00 K/ L 1.80-8.00 fddk=698) LYMPHOCYTES ABSOLUTE COUNT (BEAKER) (test 0.70 K/ L 1.48-4.50 lezf=977) MONOCYTES ABSOLUTE COUNT (BEAKER) (test 0.28 K/ L 0.00-1.30 ysoj=529) EOSINOPHILS ABSOLUTE COUNT (BEAKER) (test 0.05 K/ L 0.00-0.50 jist=804) BASOPHILS ABSOLUTE COUNT (BEAKER) (test 0.02 K/ L 0.00-0.20 qrvz=619) 0.00(MANUAL DIFFERENTIAL)2016-08-26 13:06:00 Test Item Value Reference Range Comments TOTAL COUNTED (BEAKER) (test spwc=8137) WBC MORPHOLOGY (BEAKER) (test doyz=649) Normal PLT MORPHOLOGY (BEAKER) (test ffrb=737) Normal RBC MORPHOLOGY (BEAKER) (test pgba=308) Normal HEPATITIS B [id number] 11:49:00 Test Item Value Reference Range Comments HEPATITIS B CORE TOTAL ANTIBODY (BEAKER) (test Nonreactive Nonreactive hsio=536) HEPATITIS B SURFACE ANTIBODY (BEAKER) (test < mIU/mL <8.0 ojzm=569) HEPATITIS B SURFACE ANTIGEN (2) (BEAKER) (test Nonreactive Nonreactive bszm=4809) [id number] 11:19:00 Test Item Value Reference Range Comments PROTIME (BEAKER) (test btrf=079) 13.3 seconds 11.7-14.7 INR (BEAKER) (test nuin=289) 1.0 <=5.9 PARTIAL THROMBOPLASTIN TIME (BEAKER) (test 32.9 seconds 22.5-36.0 wlei=645) RECOMMENDED COUMADIN/WARFARIN INR THERAPY RANGESSTANDARD DOSE: 2.0 - 3.0 Includes: PROPHYLAXIS forvenous thrombosis, systemic embolization; TREATMENT for venous thrombosis and/or pulmonary embolus.HIGH RISK: Target INR is 2.5-3.5 for patients with mechanical heart valves.BASIC METABOLIC [id number] 07:32: 00 Test Item Value Reference Range Comments SODIUM (BEAKER) (test 137 meq/L 136-145 qqzb=695) POTASSIUM (BEAKER) (test 6.1 meq/L 3.5-5.1 yeew=684) CHLORIDE (BEAKER) (test 109 meq/L 98-107 cbgi=292) CO2 (BEAKER) (test 19 meq/L 22-29 apad=561) BLOOD UREA NITROGEN 46 mg/dL 7-21 (BEAKER) (test rztb=284) CREATININE (BEAKER) (test 7.89 mg/dL 0.57-1.25 duoq=267) GLUCOSE RANDOM (BEAKER) 139 mg/dL 70-105 (test wcbd=107) CALCIUM (BEAKER) (test 8.5 mg/dL 8.4-10.2 vpkr=539) EGFR (BEAKER) (test 9 mL/min/1.73 sq m ESTIMATED GFR IS NOT gomp=8518) ACCURATE CREATININE CLEARANCE IN PREDICTING GLOMERULAR FILTRATION RATE. ESTIMATED GFR IS NOT APPLICABLE FOR DIALYSIS PATIENTS. [id number] 07:17:00 Test Item Value Reference Range Comments PHOSPHORUS (BEAKER) (test vgsh=183) 3.3 mg/dL 2.3-4.7 [id number] 07:17:00 Test Item Value Reference Range Comments MAGNESIUM (BEAKER) (test jpvo=216) 2.0 mg/dL 1.6-2.6 HEPATIC FUNCTION [id number] 07:17:00 Test Item Value Reference Range Comments TOTAL PROTEIN (BEAKER) (test gcyh=684) 6.3 gm/dL 6.0-8.3 ALBUMIN (BEAKER) (test aduz=0137) 3.5 g/dL 3.5-5.0 BILIRUBIN TOTAL (BEAKER) (test fshc=427) 0.4 mg/dL 0.2-1.2 BILIRUBIN DIRECT (BEAKER) (test gokk=920) 0.1 mg/dL 0.1-0.5 ALKALINE PHOSPHATASE (BEAKER) (test pypb=973) 59 U/L 40-150 AST (SGOT) (BEAKER) (test fyzj=767) 15 U/L 5-34 ALT (SGPT) (BEAKER) (test gdij=459) 13 U/L 6-55 COMPREHENSIVE METABOLIC [id number] 17:39:00 Test Item Value Reference Range Comments TOTAL PROTEIN (BEAKER) 6.2 gm/dL 6.0-8.3 Specimen slightly (test hgsf=694) hemolyzed ALBUMIN (BEAKER) (test 3.5 g/dL 3.5-5.0 Specimen slightly ijdc=6534) hemolyzed ALKALINE PHOSPHATASE 55 U/L 40-150 (BEAKER) (test ckqj=421) BILIRUBIN TOTAL (BEAKER) 0.2 mg/dL 0.2-1.2 Specimen slightly (test hoec=633) hemolyzed SODIUM (BEAKER) (test 138 meq/L 136-145 vjuf=583) POTASSIUM (BEAKER) (test 4.4 meq/L 3.5-5.1 Specimen slightly fpbu=109) hemolyzed CHLORIDE (BEAKER) (test 105 meq/L 98-107 stgw=155) CO2 (BEAKER) (test 23 meq/L 22-29 hzvl=776) BLOOD UREA NITROGEN 41 mg/dL 7-21 (BEAKER) (test gqcj=064) CREATININE (BEAKER) (test 7.65 mg/dL 0.57-1.25 Specimen slightly xyez=637) hemolyzed GLUCOSE RANDOM (BEAKER) 106 mg/dL 70-105 (test loqz=627) CALCIUM (BEAKER) (test 9.0 mg/dL 8.4-10.2 vljx=658) AST (SGOT) (BEAKER) (test 16 U/L 5-34 Specimen slightly pmht=810) hemolyzed ALT (SGPT) (BEAKER) (test 13 U/L 6-55 Specimen slightly rqkn=484) hemolyzed EGFR (BEAKER) (test 9 mL/min/1.73 sq m ESTIMATED GFR IS NOT iakg=7985) ACCURATE CREATININE CLEARANCE IN PREDICTING GLOMERULAR FILTRATION RATE. ESTIMATED GFR IS NOT APPLICABLE FOR DIALYSIS PATIENTS. [id number] 17:36:00 Test Item Value Reference Range Comments MAGNESIUM (BEAKER) (test 2.2 mg/dL 1.6-2.6 Specimen slightly hemolyzed hwaf=570) CBC W/PLT COUNT & AUTO [id number] 16:57:00 Test Item Value Reference Range Comments WHITE BLOOD CELL COUNT (BEAKER) (test lqnz=664) 16.8 K/ L 4.0-10.0 RED BLOOD CELL COUNT (BEAKER) (test bnaj=297) 2.75 M/ L 4.20-5.80 HEMOGLOBIN (BEAKER) (test rdyi=777) 8.4 GM/DL 13.0-16.8 HEMATOCRIT (BEAKER) (test vfjb=641) 26.5 % 40.0-50.0 MEAN CORPUSCULAR VOLUME (BEAKER) (test slpf=673) 96.7 fL 82.0-98.0 MEAN CORPUSCULAR HEMOGLOBIN (BEAKER) (test 30.7 pg 27.0-33.0 vffj=199) MEAN CORPUSCULAR HEMOGLOBIN CONC (BEAKER) (test 31.8 GM/DL 32.0-36.0 fimj=943) RED CELL DISTRIBUTION WIDTH (BEAKER) (test 16.0 % 10.3-14.2 obyc=084) PLATELET COUNT (BEAKER) (test iuuh=419) 232 K/CU MM 150-430 MEAN PLATELET VOLUME (BEAKER) (test gitu=042) 8.4 fL 6.5-10.5 NUCLEATED RED BLOOD CELLS (BEAKER) (test 0 /100 WBC 0-0 tetd=618) NEUTROPHILS RELATIVE PERCENT (BEAKER) (test 74 % amwx=787) LYMPHOCYTES RELATIVE PERCENT (BEAKER) (test 8 % njpy=930) MONOCYTES RELATIVE PERCENT (BEAKER) (test 17 % urtv=662) EOSINOPHILS RELATIVE PERCENT (BEAKER) (test 1 % tgso=629) BASOPHILS RELATIVE PERCENT (BEAKER) (test 0 % ruuj=123) NEUTROPHILS ABSOLUTE COUNT (BEAKER) (test 12.30 K/ L 1.80-8.00 iczy=847) LYMPHOCYTES ABSOLUTE COUNT (BEAKER) (test 1.38 K/ L 1.48-4.50 ursn=832) MONOCYTES ABSOLUTE COUNT (BEAKER) (test 2.89 K/ L 0.00-1.30 vjcm=999) EOSINOPHILS ABSOLUTE COUNT (BEAKER) (test 0.11 K/ L 0.00-0.50 wgso=350) BASOPHILS ABSOLUTE COUNT (BEAKER) (test 0.05 K/ L 0.00-0.20 jokz=621) 0.00COMPREHENSIVE METABOLIC [id number] 06:52:00 Test Item Value Reference Range Comments TOTAL PROTEIN (BEAKER) 6.3 gm/dL 6.0-8.3 (test whem=856) ALBUMIN (BEAKER) (test 3.5 g/dL 3.5-5.0 kimw=9442) ALKALINE PHOSPHATASE 54 U/L 40-150 (BEAKER) (test twme=757) BILIRUBIN TOTAL (BEAKER) 0.3 mg/dL 0.2-1.2 (test udyo=005) SODIUM (BEAKER) (test 138 meq/L 136-145 mhgu=783) POTASSIUM (BEAKER) (test 4.1 meq/L 3.5-5.1 pcwm=978) CHLORIDE (BEAKER) (test 103 meq/L 98-107 cqve=190) CO2 (BEAKER) (test 20 meq/L 22-29 nvbt=489) BLOOD UREA NITROGEN 58 mg/dL 7-21 (BEAKER) (test tknf=671) CREATININE (BEAKER) (test 6.55 mg/dL 0.57-1.25 mvbu=602) GLUCOSE RANDOM (BEAKER) 131 mg/dL 70-105 (test yeoc=061) CALCIUM (BEAKER) (test 8.5 mg/dL 8.4-10.2 rfnp=438) AST (SGOT) (BEAKER) (test 12 U/L 5-34 zbut=910) ALT (SGPT) (BEAKER) (test 12 U/L 6-55 kcqw=865) EGFR (BEAKER) (test 11 mL/min/1.73 sq m ESTIMATED GFR IS NOT tzlx=7343) ACCURATE CREATININE CLEARANCE IN PREDICTING GLOMERULAR FILTRATION RATE. ESTIMATED GFR IS NOT APPLICABLE FOR DIALYSIS PATIENTS. URIC [id number] 06:51:00 Test Item Value Reference Range Comments URIC ACID (BEAKER) (test mxuf=380) 8.2 mg/dL 2.6-7.2 LACTATE DEHYDROGENASE (LDH)2016-08-07 06:51:00 Test Item Value Reference Range Comments LACTATE DEHYDROGENASE (BEAKER) (test hjnv=592) 233 U/L 125-220 CBC W/PLT COUNT & AUTO [id number] 15:03:00 Test Item Value Reference Range Comments WHITE BLOOD CELL COUNT (BEAKER) (test bocq=494) 19.7 K/ L 4.0-10.0 RED BLOOD CELL COUNT (BEAKER) (test aewm=295) 2.79 M/ L 4.20-5.80 HEMOGLOBIN (BEAKER) (test uxaw=406) 8.7 GM/DL 13.0-16.8 HEMATOCRIT (BEAKER) (test hwlc=767) 26.9 % 40.0-50.0 MEAN CORPUSCULAR VOLUME (BEAKER) (test nqeq=976) 96.4 fL 82.0-98.0 MEAN CORPUSCULAR HEMOGLOBIN (BEAKER) (test 31.1 pg 27.0-33.0 haja=868) MEAN CORPUSCULAR HEMOGLOBIN CONC (BEAKER) (test 32.3 GM/DL 32.0-36.0 qkgz=081) RED CELL DISTRIBUTION WIDTH (BEAKER) (test 17.2 % 10.3-14.2 dkhw=544) PLATELET COUNT (BEAKER) (test poow=635) 294 K/CU MM 150-430 MEAN PLATELET VOLUME (BEAKER) (test mmiv=814) 8.7 fL 6.5-10.5 NUCLEATED RED BLOOD CELLS (BEAKER) (test 0 /100 WBC 0-0 nnvt=561) NEUTROPHILS RELATIVE PERCENT (BEAKER) (test 83 % juvl=672) LYMPHOCYTES RELATIVE PERCENT (BEAKER) (test 5 % exug=934) MONOCYTES RELATIVE PERCENT (BEAKER) (test 12 % osza=585) EOSINOPHILS RELATIVE PERCENT (BEAKER) (test 0 % zgjg=545) BASOPHILS RELATIVE PERCENT (BEAKER) (test 0 % ovva=810) NEUTROPHILS ABSOLUTE COUNT (BEAKER) (test 16.30 K/ L 1.80-8.00 javv=713) LYMPHOCYTES ABSOLUTE COUNT (BEAKER) (test 0.89 K/ L 1.48-4.50 fshh=729) MONOCYTES ABSOLUTE COUNT (BEAKER) (test 2.34 K/ L 0.00-1.30 xozy=439) EOSINOPHILS ABSOLUTE COUNT (BEAKER) (test 0.03 K/ L 0.00-0.50 jpgk=577) BASOPHILS ABSOLUTE COUNT (BEAKER) (test 0.10 K/ L 0.00-0.20 pbma=284) 0.00(MANUAL DIFFERENTIAL)2016-08-06 15:03:00 Test Item Value Reference Range Comments TOTAL COUNTED (BEAKER) (test yaez=7680) WBC MORPHOLOGY (BEAKER) (test vryi=881) Normal PLT MORPHOLOGY (BEAKER) (test cilo=124) Normal RBC MORPHOLOGY (BEAKER) (test nzsj=190) Normal COMPREHENSIVE METABOLIC [id number] 06:13:00 Test Item Value Reference Range Comments TOTAL PROTEIN (BEAKER) 5.8 gm/dL 6.0-8.3 (test epkw=814) ALBUMIN (BEAKER) (test 3.2 g/dL 3.5-5.0 uaxc=9647) ALKALINE PHOSPHATASE 56 U/L 40-150 (BEAKER) (test agfk=478) BILIRUBIN TOTAL (BEAKER) 0.3 mg/dL 0.2-1.2 (test eqvg=966) SODIUM (BEAKER) (test 140 meq/L 136-145 yezs=736) POTASSIUM (BEAKER) (test 4.1 meq/L 3.5-5.1 gyaw=216) CHLORIDE (BEAKER) (test 104 meq/L 98-107 ngjb=872) CO2 (BEAKER) (test 23 meq/L 22-29 eaqp=801) BLOOD UREA NITROGEN 31 mg/dL 7-21 (BEAKER) (test cmob=352) CREATININE (BEAKER) (test 5.11 mg/dL 0.57-1.25 vfag=974) GLUCOSE RANDOM (BEAKER) 157 mg/dL 70-105 (test gcql=700) CALCIUM (BEAKER) (test 8.1 mg/dL 8.4-10.2 sedz=265) AST (SGOT) (BEAKER) (test 14 U/L 5-34 ppfp=038) ALT (SGPT) (BEAKER) (test 11 U/L 6-55 gcxy=142) EGFR (BEAKER) (test 14 mL/min/1.73 sq m ESTIMATED GFR IS NOT fusm=6968) ACCURATE CREATININE CLEARANCE IN PREDICTING GLOMERULAR FILTRATION RATE. ESTIMATED GFR IS NOT APPLICABLE FOR DIALYSIS PATIENTS. URIC [id number] 06:05:00 Test Item Value Reference Range Comments URIC ACID (BEAKER) (test jhpu=078) 5.3 mg/dL 2.6-7.2 [id number] 06:05:00 Test Item Value Reference Range Comments MAGNESIUM (BEAKER) (test fwti=617) 1.9 mg/dL 1.6-2.6 [id number] 06:05:00 Test Item Value Reference Range Comments PHOSPHORUS (BEAKER) (test sgci=761) 3.8 mg/dL 2.3-4.7 LACTATE DEHYDROGENASE (LDH)2016-08-06 06:05:00 Test Item Value Reference Range Comments LACTATE DEHYDROGENASE (BEAKER) (test iefd=326) 248 U/L 125-220 [id number] 06:51:00 Test Item Value Reference Range Comments PHOSPHORUS (BEAKER) (test rznq=494) 3.5 mg/dL 2.3-4.7 [id number] 06:51:00 Test Item Value Reference Range Comments MAGNESIUM (BEAKER) (test zemb=490) 1.9 mg/dL 1.6-2.6 BASIC METABOLIC [id number] 06:51:00 Test Item Value Reference Range Comments SODIUM (BEAKER) (test 137 meq/L 136-145 uyun=297) POTASSIUM (BEAKER) (test 4.7 meq/L 3.5-5.1 twlt=912) CHLORIDE (BEAKER) (test 107 meq/L 98-107 ioln=432) CO2 (BEAKER) (test 18 meq/L 22-29 yvqr=392) BLOOD UREA NITROGEN 36 mg/dL 7-21 (BEAKER) (test yvhi=685) CREATININE (BEAKER) (test 6.91 mg/dL 0.57-1.25 ezba=706) GLUCOSE RANDOM (BEAKER) 163 mg/dL 70-105 (test flvb=322) CALCIUM (BEAKER) (test 8.3 mg/dL 8.4-10.2 jpiu=817) EGFR (BEAKER) (test 10 mL/min/1.73 sq m ESTIMATED GFR IS NOT izki=2802) ACCURATE CREATININE CLEARANCE IN PREDICTING GLOMERULAR FILTRATION RATE. ESTIMATED GFR IS NOT APPLICABLE FOR DIALYSIS PATIENTS. CBC W/PLT COUNT & AUTO [id number] 06:37:00 Test Item Value Reference Range Comments WHITE BLOOD CELL COUNT (BEAKER) (test emwo=312) 15.9 K/ L 4.0-10.0 RED BLOOD CELL COUNT (BEAKER) (test qxcg=738) 2.89 M/ L 4.20-5.80 HEMOGLOBIN (BEAKER) (test nrwf=271) 9.1 GM/DL 13.0-16.8 HEMATOCRIT (BEAKER) (test rspr=684) 27.9 % 40.0-50.0 MEAN CORPUSCULAR VOLUME (BEAKER) (test baia=300) 96.5 fL 82.0-98.0 MEAN CORPUSCULAR HEMOGLOBIN (BEAKER) (test 31.5 pg 27.0-33.0 gvhq=835) MEAN CORPUSCULAR HEMOGLOBIN CONC (BEAKER) (test 32.6 GM/DL 32.0-36.0 kgyp=533) RED CELL DISTRIBUTION WIDTH (BEAKER) (test 16.8 % 10.3-14.2 adup=990) PLATELET COUNT (BEAKER) (test jira=608) 279 K/CU MM 150-430 MEAN PLATELET VOLUME (BEAKER) (test knry=246) 8.3 fL 6.5-10.5 NUCLEATED RED BLOOD CELLS (BEAKER) (test 0 /100 WBC 0-0 jeyy=721) NEUTROPHILS RELATIVE PERCENT (BEAKER) (test 93 % gbrb=959) LYMPHOCYTES RELATIVE PERCENT (BEAKER) (test 5 % wcli=552) MONOCYTES RELATIVE PERCENT (BEAKER) (test 1 % oyas=308) EOSINOPHILS RELATIVE PERCENT (BEAKER) (test 0 % ptpu=217) BASOPHILS RELATIVE PERCENT (BEAKER) (test 0 % wqrv=967) NEUTROPHILS ABSOLUTE COUNT (BEAKER) (test 14.70 K/ L 1.80-8.00 jeya=448) LYMPHOCYTES ABSOLUTE COUNT (BEAKER) (test 0.78 K/ L 1.48-4.50 xctd=010) MONOCYTES ABSOLUTE COUNT (BEAKER) (test 0.22 K/ L 0.00-1.30 pudq=912) EOSINOPHILS ABSOLUTE COUNT (BEAKER) (test 0.06 K/ L 0.00-0.50 dlll=439) BASOPHILS ABSOLUTE COUNT (BEAKER) (test 0.06 K/ L 0.00-0.20 rgwk=230) 0.00BASIC METABOLIC [id number] 12:49:00 Test Item Value Reference Range Comments SODIUM (BEAKER) (test 140 meq/L 136-145 eefa=164) POTASSIUM (BEAKER) (test 4.0 meq/L 3.5-5.1 siir=895) CHLORIDE (BEAKER) (test 106 meq/L 98-107 zvmn=228) CO2 (BEAKER) (test 23 meq/L 22-29 hbzi=909) BLOOD UREA NITROGEN 27 mg/dL 7-21 (BEAKER) (test lxnb=072) CREATININE (BEAKER) (test 6.37 mg/dL 0.57-1.25 jfvz=211) GLUCOSE RANDOM (BEAKER) 88 mg/dL 70-105 (test pnvq=008) CALCIUM (BEAKER) (test 8.6 mg/dL 8.4-10.2 qvmg=749) EGFR (BEAKER) (test 11 mL/min/1.73 sq m ESTIMATED GFR IS NOT hrgc=2273) ACCURATE CREATININE CLEARANCE IN PREDICTING GLOMERULAR FILTRATION RATE. ESTIMATED GFR IS NOT APPLICABLE FOR DIALYSIS PATIENTS. URIC [id number] 12:46:00 Test Item Value Reference Range Comments URIC ACID (BEAKER) (test pesw=903) 5.2 mg/dL 2.6-7.2 [id number] 12:46:00 Test Item Value Reference Range Comments MAGNESIUM (BEAKER) (test acfl=107) 2.1 mg/dL 1.6-2.6 [id number] 12:46:00 Test Item Value Reference Range Comments PHOSPHORUS (BEAKER) (test piqt=081) 3.8 mg/dL 2.3-4.7 HEPATIC FUNCTION [id number] 12:46:00 Test Item Value Reference Range Comments TOTAL PROTEIN (BEAKER) (test lasa=545) 6.1 gm/dL 6.0-8.3 ALBUMIN (BEAKER) (test nxrv=4515) 3.4 g/dL 3.5-5.0 BILIRUBIN TOTAL (BEAKER) (test lsko=761) 0.2 mg/dL 0.2-1.2 BILIRUBIN DIRECT (BEAKER) (test gsqv=527) 0.1 mg/dL 0.1-0.5 ALKALINE PHOSPHATASE (BEAKER) (test qtre=459) 59 U/L 40-150 AST (SGOT) (BEAKER) (test dbyp=155) 11 U/L 5-34 ALT (SGPT) (BEAKER) (test jctz=087) 9 U/L 6-55 LACTATE DEHYDROGENASE (LDH)2016-08-04 12:46:00 Test Item Value Reference Range Comments LACTATE DEHYDROGENASE (BEAKER) (test vozx=089) 231 U/L 125-220 CBC W/PLT COUNT & AUTO [id number] 12:27:00 Test Item Value Reference Range Comments WHITE BLOOD CELL COUNT (BEAKER) (test gpbx=160) 13.8 K/ L 4.0-10.0 RED BLOOD CELL COUNT (BEAKER) (test holz=538) 2.53 M/ L 4.20-5.80 HEMOGLOBIN (BEAKER) (test hxht=403) 7.9 GM/DL 13.0-16.8 HEMATOCRIT (BEAKER) (test jebz=403) 24.3 % 40.0-50.0 MEAN CORPUSCULAR VOLUME (BEAKER) (test htxz=879) 96.1 fL 82.0-98.0 MEAN CORPUSCULAR HEMOGLOBIN (BEAKER) (test 31.0 pg 27.0-33.0 hshk=885) MEAN CORPUSCULAR HEMOGLOBIN CONC (BEAKER) (test 32.3 GM/DL 32.0-36.0 ehuq=157) RED CELL DISTRIBUTION WIDTH (BEAKER) (test 17.4 % 10.3-14.2 bbax=924) PLATELET COUNT (BEAKER) (test cser=238) 265 K/CU MM 150-430 MEAN PLATELET VOLUME (BEAKER) (test wzad=881) 8.1 fL 6.5-10.5 NUCLEATED RED BLOOD CELLS (BEAKER) (test 0 /100 WBC 0-0 bcnq=565) NEUTROPHILS RELATIVE PERCENT (BEAKER) (test 71 % ijca=021) LYMPHOCYTES RELATIVE PERCENT (BEAKER) (test 10 % ziln=906) MONOCYTES RELATIVE PERCENT (BEAKER) (test 19 % vofb=608) EOSINOPHILS RELATIVE PERCENT (BEAKER) (test 1 % nzpk=006) BASOPHILS RELATIVE PERCENT (BEAKER) (test 0 % emhm=442) NEUTROPHILS ABSOLUTE COUNT (BEAKER) (test 9.76 K/ L 1.80-8.00 cuwb=118) LYMPHOCYTES ABSOLUTE COUNT (BEAKER) (test 1.40 K/ L 1.48-4.50 grpl=437) MONOCYTES ABSOLUTE COUNT (BEAKER) (test 2.56 K/ L 0.00-1.30 burp=233) EOSINOPHILS ABSOLUTE COUNT (BEAKER) (test 0.08 K/ L 0.00-0.50 bham=115) BASOPHILS ABSOLUTE COUNT (BEAKER) (test 0.05 K/ L 0.00-0.20 oifw=475) 0.00HEPATITIS B SURFACE [id number] 14:54:00 Test Item Value Reference Range Comments HEPATITIS B SURFACE ANTIGEN (2) (BEAKER) (test Nonreactive Nonreactive kstx=7286) CBC W/PLT COUNT & AUTO [id number] 10:30:00 Test Item Value Reference Range Comments WHITE BLOOD CELL COUNT (BEAKER) (test swcy=851) 5.8 K/ L 4.0-10.0 RED BLOOD CELL COUNT (BEAKER) (test puhg=637) 2.53 M/ L 4.20-5.80 HEMOGLOBIN (BEAKER) (test gqkd=963) 8.1 GM/DL 13.0-16.8 HEMATOCRIT (BEAKER) (test cjjj=760) 23.6 % 40.0-50.0 MEAN CORPUSCULAR VOLUME (BEAKER) (test cwxs=537) 93.0 fL 82.0-98.0 MEAN CORPUSCULAR HEMOGLOBIN (BEAKER) (test 32.1 pg 27.0-33.0 eneu=354) MEAN CORPUSCULAR HEMOGLOBIN CONC (BEAKER) (test 34.5 GM/DL 32.0-36.0 oilm=590) RED CELL DISTRIBUTION WIDTH (BEAKER) (test 18.5 % 10.3-14.2 preh=327) PLATELET COUNT (BEAKER) (test dshe=590) 259 K/CU MM 150-430 MEAN PLATELET VOLUME (BEAKER) (test pzdr=329) 8.7 fL 6.5-10.5 NUCLEATED RED BLOOD CELLS (BEAKER) (test 0 /100 WBC 0-0 ibat=012) NEUTROPHILS RELATIVE PERCENT (BEAKER) (test 86 % hrts=802) LYMPHOCYTES RELATIVE PERCENT (BEAKER) (test 9 % nfua=882) MONOCYTES RELATIVE PERCENT (BEAKER) (test 5 % rkol=608) EOSINOPHILS RELATIVE PERCENT (BEAKER) (test 0 % irgt=673) BASOPHILS RELATIVE PERCENT (BEAKER) (test 0 % qbkj=628) NEUTROPHILS ABSOLUTE COUNT (BEAKER) (test 4.97 K/ L 1.80-8.00 dnty=586) LYMPHOCYTES ABSOLUTE COUNT (BEAKER) (test 0.52 K/ L 1.48-4.50 rhhb=053) MONOCYTES ABSOLUTE COUNT (BEAKER) (test 0.28 K/ L 0.00-1.30 lbpv=414) EOSINOPHILS ABSOLUTE COUNT (BEAKER) (test 0.01 K/ L 0.00-0.50 ymny=632) BASOPHILS ABSOLUTE COUNT (BEAKER) (test 0.00 K/ L 0.00-0.20 iein=660) 0.00(MANUAL DIFFERENTIAL)2016-07-19 10:30:00 Test Item Value Reference Range Comments TOTAL COUNTED (BEAKER) (test grhg=4578) WBC MORPHOLOGY (BEAKER) (test llrk=121) Normal PLT MORPHOLOGY (BEAKER) (test lxdf=837) Normal POIKILOCYTES (BEAKER) (test dlge=715) 1+ few TEAR DROP CELLS (BEAKER) (test bzpl=326) 1+ few COMPREHENSIVE METABOLIC [id number] 06:29:00 Test Item Value Reference Range Comments TOTAL PROTEIN (BEAKER) 5.9 gm/dL 6.0-8.3 (test szjh=282) ALBUMIN (BEAKER) (test 3.3 g/dL 3.5-5.0 xyij=1774) ALKALINE PHOSPHATASE 51 U/L 40-150 (BEAKER) (test zrdz=625) BILIRUBIN TOTAL (BEAKER) 0.2 mg/dL 0.2-1.2 (test fwit=364) SODIUM (BEAKER) (test 138 meq/L 136-145 htwj=927) POTASSIUM (BEAKER) (test 4.4 meq/L 3.5-5.1 ifzn=269) CHLORIDE (BEAKER) (test 105 meq/L 98-107 mpat=196) CO2 (BEAKER) (test 22 meq/L 22-29 uwee=401) BLOOD UREA NITROGEN 65 mg/dL 7-21 (BEAKER) (test memw=737) CREATININE (BEAKER) (test 7.03 mg/dL 0.57-1.25 kgat=403) GLUCOSE RANDOM (BEAKER) 150 mg/dL 70-105 (test oszw=953) CALCIUM (BEAKER) (test 8.3 mg/dL 8.4-10.2 itmc=767) AST (SGOT) (BEAKER) (test 12 U/L 5-34 lfsg=780) ALT (SGPT) (BEAKER) (test 14 U/L 6-55 jhfr=529) EGFR (BEAKER) (test 10 mL/min/1.73 sq m ESTIMATED GFR IS NOT lrmq=7915) ACCURATE CREATININE CLEARANCE IN PREDICTING GLOMERULAR FILTRATION RATE. ESTIMATED GFR IS NOT APPLICABLE FOR DIALYSIS PATIENTS. LACTATE DEHYDROGENASE (LDH)2016-07-19 06:28:00 Test Item Value Reference Range Comments LACTATE DEHYDROGENASE (BEAKER) (test uhwc=615) 199 U/L 125-220 CBC W/PLT COUNT & AUTO [id number] 06:53:00 Test Item Value Reference Range Comments WHITE BLOOD CELL COUNT (BEAKER) (test fznn=981) 10.9 K/ L 4.0-10.0 RED BLOOD CELL COUNT (BEAKER) (test bvot=851) 2.66 M/ L 4.20-5.80 HEMOGLOBIN (BEAKER) (test szgg=015) 8.5 GM/DL 13.0-16.8 HEMATOCRIT (BEAKER) (test cvlz=692) 25.3 % 40.0-50.0 MEAN CORPUSCULAR VOLUME (BEAKER) (test ilja=571) 95.2 fL 82.0-98.0 MEAN CORPUSCULAR HEMOGLOBIN (BEAKER) (test 31.7 pg 27.0-33.0 xewt=758) MEAN CORPUSCULAR HEMOGLOBIN CONC (BEAKER) (test 33.3 GM/DL 32.0-36.0 yfrt=702) RED CELL DISTRIBUTION WIDTH (BEAKER) (test 18.4 % 10.3-14.2 qygz=838) PLATELET COUNT (BEAKER) (test qdzq=148) 281 K/CU MM 150-430 MEAN PLATELET VOLUME (BEAKER) (test eyyo=431) 8.6 fL 6.5-10.5 NUCLEATED RED BLOOD CELLS (BEAKER) (test 0 /100 WBC 0-0 belj=898) NEUTROPHILS RELATIVE PERCENT (BEAKER) (test 90 % gncj=794) LYMPHOCYTES RELATIVE PERCENT (BEAKER) (test 4 % mgpx=740) MONOCYTES RELATIVE PERCENT (BEAKER) (test 6 % psxk=893) EOSINOPHILS RELATIVE PERCENT (BEAKER) (test 0 % argk=965) BASOPHILS RELATIVE PERCENT (BEAKER) (test 0 % bmlb=954) NEUTROPHILS ABSOLUTE COUNT (BEAKER) (test 9.80 K/ L 1.80-8.00 okyk=225) LYMPHOCYTES ABSOLUTE COUNT (BEAKER) (test 0.49 K/ L 1.48-4.50 mvbt=177) MONOCYTES ABSOLUTE COUNT (BEAKER) (test 0.65 K/ L 0.00-1.30 ycgx=006) EOSINOPHILS ABSOLUTE COUNT (BEAKER) (test 0.01 K/ L 0.00-0.50 tyfe=766) BASOPHILS ABSOLUTE COUNT (BEAKER) (test 0.00 K/ L 0.00-0.20 zjrf=480) 0.00COMPREHENSIVE METABOLIC [id number] 06:47:00 Test Item Value Reference Range Comments TOTAL PROTEIN (BEAKER) 6.2 gm/dL 6.0-8.3 (test oeec=977) ALBUMIN (BEAKER) (test 3.4 g/dL 3.5-5.0 javz=2342) ALKALINE PHOSPHATASE 56 U/L 40-150 (BEAKER) (test gclf=631) BILIRUBIN TOTAL (BEAKER) 0.3 mg/dL 0.2-1.2 (test qdjk=010) SODIUM (BEAKER) (test 138 meq/L 136-145 vpjf=707) POTASSIUM (BEAKER) (test 4.3 meq/L 3.5-5.1 fyuf=930) CHLORIDE (BEAKER) (test 103 meq/L 98-107 rekv=679) CO2 (BEAKER) (test 21 meq/L 22-29 syru=943) BLOOD UREA NITROGEN 46 mg/dL 7-21 (BEAKER) (test kguo=555) CREATININE (BEAKER) (test 5.81 mg/dL 0.57-1.25 khij=329) GLUCOSE RANDOM (BEAKER) 161 mg/dL 70-105 (test jgjy=133) CALCIUM (BEAKER) (test 8.1 mg/dL 8.4-10.2 suqq=081) AST (SGOT) (BEAKER) (test 15 U/L 5-34 cklf=133) ALT (SGPT) (BEAKER) (test 13 U/L 6-55 kdxe=668) EGFR (BEAKER) (test 12 mL/min/1.73 sq m ESTIMATED GFR IS NOT qumi=1968) ACCURATE CREATININE CLEARANCE IN PREDICTING GLOMERULAR FILTRATION RATE. ESTIMATED GFR IS NOT APPLICABLE FOR DIALYSIS PATIENTS. LACTATE DEHYDROGENASE (LDH)2016-07-18 06:46:00 Test Item Value Reference Range Comments LACTATE DEHYDROGENASE (BEAKER) (test zyxq=065) 227 U/L 125-220 CBC W/PLT COUNT & AUTO [id number] 11:26:00 Test Item Value Reference Range Comments WHITE BLOOD CELL COUNT (BEAKER) (test ajxy=623) 25.1 K/ L 4.0-10.0 RED BLOOD CELL COUNT (BEAKER) (test znpe=193) 2.82 M/ L 4.20-5.80 HEMOGLOBIN (BEAKER) (test txyj=387) 8.4 GM/DL 13.0-16.8 HEMATOCRIT (BEAKER) (test mwvw=986) 26.6 % 40.0-50.0 MEAN CORPUSCULAR VOLUME (BEAKER) (test qbwg=477) 94.1 fL 82.0-98.0 MEAN CORPUSCULAR HEMOGLOBIN (BEAKER) (test 29.9 pg 27.0-33.0 ormr=871) MEAN CORPUSCULAR HEMOGLOBIN CONC (BEAKER) (test 31.7 GM/DL 32.0-36.0 umak=302) RED CELL DISTRIBUTION WIDTH (BEAKER) (test 19.1 % 10.3-14.2 hafp=371) PLATELET COUNT (BEAKER) (test xpfn=424) 290 K/CU MM 150-430 MEAN PLATELET VOLUME (BEAKER) (test gfmj=599) 8.7 fL 6.5-10.5 NUCLEATED RED BLOOD CELLS (BEAKER) (test 0 /100 WBC 0-0 kplj=727) NEUTROPHILS RELATIVE PERCENT (BEAKER) (test 91 % zacf=632) LYMPHOCYTES RELATIVE PERCENT (BEAKER) (test 3 % exkf=027) MONOCYTES RELATIVE PERCENT (BEAKER) (test 6 % llil=992) EOSINOPHILS RELATIVE PERCENT (BEAKER) (test 1 % gwdh=515) BASOPHILS RELATIVE PERCENT (BEAKER) (test 0 % fnha=090) NEUTROPHILS ABSOLUTE COUNT (BEAKER) (test 22.70 K/ L 1.80-8.00 ussm=963) LYMPHOCYTES ABSOLUTE COUNT (BEAKER) (test 0.66 K/ L 1.48-4.50 osaw=319) MONOCYTES ABSOLUTE COUNT (BEAKER) (test 1.52 K/ L 0.00-1.30 vpmg=453) EOSINOPHILS ABSOLUTE COUNT (BEAKER) (test 0.15 K/ L 0.00-0.50 onai=144) BASOPHILS ABSOLUTE COUNT (BEAKER) (test 0.01 K/ L 0.00-0.20 dsyh=617) [id number](MANUAL DIFFERENTIAL)2016-07-17 11:26:00 Test Item Value Reference Range Comments TOTAL COUNTED (BEAKER) (test sktc=3914) WBC MORPHOLOGY (BEAKER) (test gxpl=462) Normal PLT MORPHOLOGY (BEAKER) (test qblv=571) Normal RBC MORPHOLOGY (BEAKER) (test bkvq=413) Normal BASIC METABOLIC [id number] 05:47:00 Test Item Value Reference Range Comments SODIUM (BEAKER) (test 136 meq/L 136-145 bbut=788) POTASSIUM (BEAKER) (test 4.9 meq/L 3.5-5.1 kovr=027) CHLORIDE (BEAKER) (test 103 meq/L 98-107 zihd=192) CO2 (BEAKER) (test 17 meq/L 22-29 bqqk=184) BLOOD UREA NITROGEN 49 mg/dL 7-21 (BEAKER) (test nohh=472) CREATININE (BEAKER) (test 7.07 mg/dL 0.57-1.25 wunu=942) GLUCOSE RANDOM (BEAKER) 120 mg/dL 70-105 (test izzx=027) CALCIUM (BEAKER) (test 8.4 mg/dL 8.4-10.2 zxhh=233) EGFR (BEAKER) (test 10 mL/min/1.73 sq m ESTIMATED GFR IS NOT ztsw=6508) ACCURATE CREATININE CLEARANCE IN PREDICTING GLOMERULAR FILTRATION RATE. ESTIMATED GFR IS NOT APPLICABLE FOR DIALYSIS PATIENTS. URIC [id number] 05:44:00 Test Item Value Reference Range Comments URIC ACID (BEAKER) (test dmzh=360) 9.4 mg/dL 2.6-7.2 [id number] 05:44:00 Test Item Value Reference Range Comments PHOSPHORUS (BEAKER) (test epay=480) 5.1 mg/dL 2.3-4.7 HEPATIC FUNCTION [id number] 05:44:00 Test Item Value Reference Range Comments TOTAL PROTEIN (BEAKER) (test mtws=248) 6.4 gm/dL 6.0-8.3 ALBUMIN (BEAKER) (test rbmb=0248) 3.4 g/dL 3.5-5.0 BILIRUBIN TOTAL (BEAKER) (test faqb=192) 0.3 mg/dL 0.2-1.2 BILIRUBIN DIRECT (BEAKER) (test grgi=114) 0.1 mg/dL 0.1-0.5 ALKALINE PHOSPHATASE (BEAKER) (test kmhv=756) 62 U/L 40-150 AST (SGOT) (BEAKER) (test trde=993) 15 U/L 5-34 ALT (SGPT) (BEAKER) (test ytzl=482) 13 U/L 6-55 LACTATE DEHYDROGENASE (LDH)2016-07-17 05:44:00 Test Item Value Reference Range Comments LACTATE DEHYDROGENASE (BEAKER) (test jpxn=188) 250 U/L 125-220 CBC W/PLT COUNT & AUTO [id number] 11:11:00 Test Item Value Reference Range Comments WHITE BLOOD CELL COUNT (BEAKER) (test ueno=010) 18.8 K/ L 4.0-10.0 RED BLOOD CELL COUNT (BEAKER) (test nvkg=017) 2.83 M/ L 4.20-5.80 HEMOGLOBIN (BEAKER) (test odvs=583) 9.0 GM/DL 13.0-16.8 HEMATOCRIT (BEAKER) (test bbbq=941) 27.2 % 40.0-50.0 MEAN CORPUSCULAR VOLUME (BEAKER) (test stpa=183) 96.3 fL 82.0-98.0 MEAN CORPUSCULAR HEMOGLOBIN (BEAKER) (test 31.9 pg 27.0-33.0 uywl=275) MEAN CORPUSCULAR HEMOGLOBIN CONC (BEAKER) (test 33.1 GM/DL 32.0-36.0 ftiz=912) RED CELL DISTRIBUTION WIDTH (BEAKER) (test 18.5 % 10.3-14.2 ekcb=569) PLATELET COUNT (BEAKER) (test hyhy=480) 287 K/CU MM 150-430 MEAN PLATELET VOLUME (BEAKER) (test micx=583) 8.7 fL 6.5-10.5 NUCLEATED RED BLOOD CELLS (BEAKER) (test 1 /100 WBC 0-0 awhz=431) NEUTROPHILS RELATIVE PERCENT (BEAKER) (test 93 % elgg=119) LYMPHOCYTES RELATIVE PERCENT (BEAKER) (test 4 % rwno=213) MONOCYTES RELATIVE PERCENT (BEAKER) (test 2 % mskh=963) EOSINOPHILS RELATIVE PERCENT (BEAKER) (test 0 % ljtp=102) BASOPHILS RELATIVE PERCENT (BEAKER) (test 0 % skhe=616) NEUTROPHILS ABSOLUTE COUNT (BEAKER) (test 17.60 K/ L 1.80-8.00 yylc=582) LYMPHOCYTES ABSOLUTE COUNT (BEAKER) (test 0.76 K/ L 1.48-4.50 svdo=954) MONOCYTES ABSOLUTE COUNT (BEAKER) (test 0.40 K/ L 0.00-1.30 nphv=056) EOSINOPHILS ABSOLUTE COUNT (BEAKER) (test 0.07 K/ L 0.00-0.50 zxbf=530) BASOPHILS ABSOLUTE COUNT (BEAKER) (test 0.02 K/ L 0.00-0.20 rqrw=869) 0.00(MANUAL DIFFERENTIAL)2016-07-16 11:11:00 Test Item Value Reference Range Comments TOTAL COUNTED (BEAKER) (test bonm=5490) WBC MORPHOLOGY (BEAKER) (test alsr=362) Normal PLT MORPHOLOGY (BEAKER) (test cqwr=029) Normal POLYCHROMATOPHILLIC RBCS(BEAKER) (test wdis=947) 1+ few BASIC METABOLIC [id number] 07:05:00 Test Item Value Reference Range Comments SODIUM (BEAKER) (test 137 meq/L 136-145 tted=717) POTASSIUM (BEAKER) (test 4.4 meq/L 3.5-5.1 ysrz=884) CHLORIDE (BEAKER) (test 103 meq/L 98-107 oosu=607) CO2 (BEAKER) (test 21 meq/L 22-29 thks=198) BLOOD UREA NITROGEN 26 mg/dL 7-21 (BEAKER) (test dtpr=757) CREATININE (BEAKER) (test 5.31 mg/dL 0.57-1.25 jlsq=319) GLUCOSE RANDOM (BEAKER) 157 mg/dL 70-105 (test zcpp=960) CALCIUM (BEAKER) (test 8.4 mg/dL 8.4-10.2 hcyq=045) EGFR (BEAKER) (test 13 mL/min/1.73 sq m ESTIMATED GFR IS NOT aswo=7971) ACCURATE CREATININE CLEARANCE IN PREDICTING GLOMERULAR FILTRATION RATE. ESTIMATED GFR IS NOT APPLICABLE FOR DIALYSIS PATIENTS. URIC [id number] 07:04:00 Test Item Value Reference Range Comments URIC ACID (BEAKER) (test agvx=280) 4.6 mg/dL 2.6-7.2 [id number] 07:04:00 Test Item Value Reference Range Comments PHOSPHORUS (BEAKER) (test seip=745) 3.1 mg/dL 2.3-4.7 HEPATIC FUNCTION [id number] 07:04:00 Test Item Value Reference Range Comments TOTAL PROTEIN (BEAKER) (test lfph=462) 6.5 gm/dL 6.0-8.3 ALBUMIN (BEAKER) (test rcpm=9248) 3.5 g/dL 3.5-5.0 BILIRUBIN TOTAL (BEAKER) (test jvek=237) 0.3 mg/dL 0.2-1.2 BILIRUBIN DIRECT (BEAKER) (test fkyz=243) 0.2 mg/dL 0.1-0.5 ALKALINE PHOSPHATASE (BEAKER) (test icgm=335) 69 U/L 40-150 AST (SGOT) (BEAKER) (test seyv=165) 16 U/L 5-34 ALT (SGPT) (BEAKER) (test cksb=647) 14 U/L 6-55 LACTATE DEHYDROGENASE (LDH)2016-07-16 07:04:00 Test Item Value Reference Range Comments LACTATE DEHYDROGENASE (BEAKER) (test nrxa=968) 318 U/L 125-220 CBC W/PLT COUNT & AUTO [id number] 06:57:00 Test Item Value Reference Range Comments WHITE BLOOD CELL COUNT (BEAKER) (test idpa=380) 15.4 K/ L 4.0-10.0 RED BLOOD CELL COUNT (BEAKER) (test kppl=601) 2.72 M/ L 4.20-5.80 HEMOGLOBIN (BEAKER) (test jlsu=215) 8.4 GM/DL 13.0-16.8 HEMATOCRIT (BEAKER) (test zjqh=893) 26.3 % 40.0-50.0 MEAN CORPUSCULAR VOLUME (BEAKER) (test cego=780) 96.4 fL 82.0-98.0 MEAN CORPUSCULAR HEMOGLOBIN (BEAKER) (test 30.9 pg 27.0-33.0 fnfj=486) MEAN CORPUSCULAR HEMOGLOBIN CONC (BEAKER) (test 32.0 GM/DL 32.0-36.0 bsyj=376) RED CELL DISTRIBUTION WIDTH (BEAKER) (test 18.7 % 10.3-14.2 svkr=959) PLATELET COUNT (BEAKER) (test gcrh=636) 280 K/CU MM 150-430 MEAN PLATELET VOLUME (BEAKER) (test cjez=077) 8.5 fL 6.5-10.5 NUCLEATED RED BLOOD CELLS (BEAKER) (test 2 /100 WBC 0-0 rllq=365) NEUTROPHILS RELATIVE PERCENT (BEAKER) (test 73 % rgds=294) LYMPHOCYTES RELATIVE PERCENT (BEAKER) (test 10 % pnui=351) MONOCYTES RELATIVE PERCENT (BEAKER) (test 16 % blgz=607) EOSINOPHILS RELATIVE PERCENT (BEAKER) (test 1 % dgzj=765) BASOPHILS RELATIVE PERCENT (BEAKER) (test 0 % bqjl=444) NEUTROPHILS ABSOLUTE COUNT (BEAKER) (test 11.20 K/ L 1.80-8.00 jpws=721) LYMPHOCYTES ABSOLUTE COUNT (BEAKER) (test 1.58 K/ L 1.48-4.50 qyzs=133) MONOCYTES ABSOLUTE COUNT (BEAKER) (test 2.45 K/ L 0.00-1.30 vkth=942) EOSINOPHILS ABSOLUTE COUNT (BEAKER) (test 0.12 K/ L 0.00-0.50 kvhj=904) BASOPHILS ABSOLUTE COUNT (BEAKER) (test 0.06 K/ L 0.00-0.20 khko=531) 0.00(MANUAL DIFFERENTIAL)2016-07-15 06:57:00 Test Item Value Reference Range Comments TOTAL COUNTED (BEAKER) (test ckkt=9257) BASIC METABOLIC [id number] 06:09:00 Test Item Value Reference Range Comments SODIUM (BEAKER) (test 140 meq/L 136-145 rfys=825) POTASSIUM (BEAKER) (test 4.3 meq/L 3.5-5.1 ozpg=934) CHLORIDE (BEAKER) (test 109 meq/L 98-107 rfya=718) CO2 (BEAKER) (test 19 meq/L 22-29 ohvf=792) BLOOD UREA NITROGEN 32 mg/dL 7-21 (BEAKER) (test oycx=240) CREATININE (BEAKER) (test 7.12 mg/dL 0.57-1.25 bksz=478) GLUCOSE RANDOM (BEAKER) 92 mg/dL 70-105 (test uzia=965) CALCIUM (BEAKER) (test 8.5 mg/dL 8.4-10.2 rthg=217) EGFR (BEAKER) (test 10 mL/min/1.73 sq m ESTIMATED GFR IS NOT nkdi=0108) ACCURATE CREATININE CLEARANCE IN PREDICTING GLOMERULAR FILTRATION RATE. ESTIMATED GFR IS NOT APPLICABLE FOR DIALYSIS PATIENTS. URIC [id number] 06:05:00 Test Item Value Reference Range Comments URIC ACID (BEAKER) (test tbhc=600) 6.5 mg/dL 2.6-7.2 [id number] 06:05:00 Test Item Value Reference Range Comments PHOSPHORUS (BEAKER) (test xnmd=074) 5.0 mg/dL 2.3-4.7 HEPATIC FUNCTION [id number] 06:05:00 Test Item Value Reference Range Comments TOTAL PROTEIN (BEAKER) (test gylk=877) 6.2 gm/dL 6.0-8.3 ALBUMIN (BEAKER) (test urjf=9179) 3.4 g/dL 3.5-5.0 BILIRUBIN TOTAL (BEAKER) (test oiih=267) 0.2 mg/dL 0.2-1.2 BILIRUBIN DIRECT (BEAKER) (test wirt=229) 0.1 mg/dL 0.1-0.5 ALKALINE PHOSPHATASE (BEAKER) (test exwh=576) 65 U/L 40-150 AST (SGOT) (BEAKER) (test mqco=605) 18 U/L 5-34 ALT (SGPT) (BEAKER) (test egfg=191) 16 U/L 6-55 LACTATE DEHYDROGENASE (LDH)2016-07-15 06:05:00 Test Item Value Reference Range Comments LACTATE DEHYDROGENASE (BEAKER) (test mkel=959) 290 U/L 125-220 URINALYSIS W/ [id number] 22:18:00 Test Item Value Reference Range Comments COLOR (BEAKER) (test ssdm=049) Light Yellow CLARITY (BEAKER) (test tvze=378) Clear SPECIFIC GRAVITY UA (BEAKER) (test 1.004 1.001-1.035 bums=423) PH UA (BEAKER) (test unzk=085) 7.5 5.0-8.0 PROTEIN UA (BEAKER) (test xylg=663) 30 mg/dL Negative GLUCOSE UA (BEAKER) (test svzr=191) Negative Negative KETONES UA (BEAKER) (test cpqk=741) Negative Negative BILIRUBIN UA (BEAKER) (test kmej=619) Negative Negative BLOOD UA (BEAKER) (test btxa=012) Negative Negative NITRITE UA (BEAKER) (test vhqs=145) Negative Negative LEUKOCYTE ESTERASE UA (BEAKER) (test Negative Negative yehe=226) UROBILINOGEN UA (BEAKER) (test zogi=284) 0.2 mg/dL 0.2-1.0 RBC UA (BEAKER) (test odid=779) < /HPF WBC UA (BEAKER) (test pcsf=663) 2 /HPF SOURCE(BEAKER) (test ywxk=6887) Urine, Clean Catch CBC W/PLT COUNT & AUTO [id number] 20:30:00 Test Item Value Reference Range Comments WHITE BLOOD CELL COUNT (BEAKER) (test jvvd=627) 15.1 K/ L 4.0-10.0 RED BLOOD CELL COUNT (BEAKER) (test pydv=184) 2.72 M/ L 4.20-5.80 HEMOGLOBIN (BEAKER) (test bxei=114) 8.4 GM/DL 13.0-16.8 HEMATOCRIT (BEAKER) (test tgpg=468) 25.6 % 40.0-50.0 MEAN CORPUSCULAR VOLUME (BEAKER) (test qfgd=670) 94.1 fL 82.0-98.0 MEAN CORPUSCULAR HEMOGLOBIN (BEAKER) (test 30.7 pg 27.0-33.0 lwly=326) MEAN CORPUSCULAR HEMOGLOBIN CONC (BEAKER) (test 32.6 GM/DL 32.0-36.0 kglx=296) RED CELL DISTRIBUTION WIDTH (BEAKER) (test 19.0 % 10.3-14.2 iozx=227) PLATELET COUNT (BEAKER) (test huyq=517) 266 K/CU MM 150-430 MEAN PLATELET VOLUME (BEAKER) (test vhko=193) 8.3 fL 6.5-10.5 NUCLEATED RED BLOOD CELLS (BEAKER) (test 2 /100 WBC 0-0 layx=167) NEUTROPHILS RELATIVE PERCENT (BEAKER) (test 68 % xbed=307) LYMPHOCYTES RELATIVE PERCENT (BEAKER) (test 12 % vscz=454) MONOCYTES RELATIVE PERCENT (BEAKER) (test 17 % bfzm=915) EOSINOPHILS RELATIVE PERCENT (BEAKER) (test 3 % fosg=265) BASOPHILS RELATIVE PERCENT (BEAKER) (test 0 % xqjd=626) NEUTROPHILS ABSOLUTE COUNT (BEAKER) (test 10.30 K/ L 1.80-8.00 pnmm=063) LYMPHOCYTES ABSOLUTE COUNT (BEAKER) (test 1.74 K/ L 1.48-4.50 bcah=194) MONOCYTES ABSOLUTE COUNT (BEAKER) (test 2.63 K/ L 0.00-1.30 iiso=039) EOSINOPHILS ABSOLUTE COUNT (BEAKER) (test 0.43 K/ L 0.00-0.50 dwvg=996) BASOPHILS ABSOLUTE COUNT (BEAKER) (test 0.05 K/ L 0.00-0.20 sinc=037) 0.00COMPREHENSIVE METABOLIC [id number] 20:25:00 Test Item Value Reference Range Comments TOTAL PROTEIN (BEAKER) 6.5 gm/dL 6.0-8.3 (test oteg=663) ALBUMIN (BEAKER) (test 3.6 g/dL 3.5-5.0 rmei=4687) ALKALINE PHOSPHATASE 68 U/L 40-150 (BEAKER) (test zdor=201) BILIRUBIN TOTAL (BEAKER) 0.2 mg/dL 0.2-1.2 (test psad=782) SODIUM (BEAKER) (test 140 meq/L 136-145 arvo=461) POTASSIUM (BEAKER) (test 3.8 meq/L 3.5-5.1 xacf=311) CHLORIDE (BEAKER) (test 106 meq/L 98-107 mbqd=788) CO2 (BEAKER) (test 23 meq/L 22-29 kxnx=541) BLOOD UREA NITROGEN 31 mg/dL 7-21 (BEAKER) (test yems=155) CREATININE (BEAKER) (test 6.77 mg/dL 0.57-1.25 hvjz=093) GLUCOSE RANDOM (BEAKER) 117 mg/dL 70-105 (test viws=021) CALCIUM (BEAKER) (test 8.5 mg/dL 8.4-10.2 inyp=513) AST (SGOT) (BEAKER) (test 18 U/L 5-34 qpas=319) ALT (SGPT) (BEAKER) (test 18 U/L 6-55 qznx=737) EGFR (BEAKER) (test 10 mL/min/1.73 sq m ESTIMATED GFR IS NOT cbwr=2687) ACCURATE CREATININE CLEARANCE IN PREDICTING GLOMERULAR FILTRATION RATE. ESTIMATED GFR IS NOT APPLICABLE FOR DIALYSIS PATIENTS. URIC [id number] 20:24:00 Test Item Value Reference Range Comments URIC ACID (BEAKER) (test edfh=347) 5.8 mg/dL 2.6-7.2 [id number] 20:24:00 Test Item Value Reference Range Comments PHOSPHORUS (BEAKER) (test ecrw=961) 4.8 mg/dL 2.3-4.7 LACTATE DEHYDROGENASE (LDH)2016-07-14 20:24:00 Test Item Value Reference Range Comments LACTATE DEHYDROGENASE (BEAKER) (test lgif=378) 245 U/L 125-220 PROTHROMBIN [id number] 20:12:00 Test Item Value Reference Range Comments PROTIME (BEAKER) (test iuco=577) 13.0 seconds 11.7-14.7 INR (BEAKER) (test qaby=457) 1.0 <=5.9 RECOMMENDED COUMADIN/WARFARIN INR THERAPY RANGESSTANDARD DOSE: 2.0 - 3.0 Includes: PROPHYLAXIS forvenous thrombosis, systemic embolization; TREATMENT for venous thrombosis and/or pulmonary embolus.HIGH RISK: Target INR is 2.5-3.5 for patients with mechanical heart valves.[id number] 15:01:00 Test Item Value Reference Range Comments LAB AP CPT CODE (BEAKER) (test ljqy=3272) 04513 CBC W/PLT COUNT & AUTO [id number] 14:40:00 Test Item Value Reference Range Comments WHITE BLOOD CELL COUNT (BEAKER) (test scfk=486) 7.9 K/ L 4.0-10.0 RED BLOOD CELL COUNT (BEAKER) (test qafd=119) 2.63 M/ L 4.20-5.80 HEMOGLOBIN (BEAKER) (test uzvi=022) 8.2 GM/DL 13.0-16.8 HEMATOCRIT (BEAKER) (test ercy=243) 24.6 % 40.0-50.0 MEAN CORPUSCULAR VOLUME (BEAKER) (test npqu=371) 93.6 fL 82.0-98.0 MEAN CORPUSCULAR HEMOGLOBIN (BEAKER) (test 31.1 pg 27.0-33.0 ncyl=733) MEAN CORPUSCULAR HEMOGLOBIN CONC (BEAKER) (test 33.2 GM/DL 32.0-36.0 ytiz=460) RED CELL DISTRIBUTION WIDTH (BEAKER) (test 18.0 % 10.3-14.2 dhon=933) PLATELET COUNT (BEAKER) (test yjzt=316) 237 K/CU MM 150-430 MEAN PLATELET VOLUME (BEAKER) (test twec=293) 8.6 fL 6.5-10.5 NUCLEATED RED BLOOD CELLS (BEAKER) (test 0 /100 WBC 0-0 spxa=963) NEUTROPHILS RELATIVE PERCENT (BEAKER) (test 88 % lmtb=634) LYMPHOCYTES RELATIVE PERCENT (BEAKER) (test 5 % wtuo=734) MONOCYTES RELATIVE PERCENT (BEAKER) (test 6 % uagr=339) EOSINOPHILS RELATIVE PERCENT (BEAKER) (test 0 % jcdv=563) BASOPHILS RELATIVE PERCENT (BEAKER) (test 0 % xqzi=356) NEUTROPHILS ABSOLUTE COUNT (BEAKER) (test 6.95 K/ L 1.80-8.00 knlb=265) LYMPHOCYTES ABSOLUTE COUNT (BEAKER) (test 0.41 K/ L 1.48-4.50 aexf=998) MONOCYTES ABSOLUTE COUNT (BEAKER) (test 0.47 K/ L 0.00-1.30 wsfs=016) EOSINOPHILS ABSOLUTE COUNT (BEAKER) (test 0.02 K/ L 0.00-0.50 oato=593) BASOPHILS ABSOLUTE COUNT (BEAKER) (test 0.03 K/ L 0.00-0.20 trsd=338) 0.00(MANUAL DIFFERENTIAL)2016-06-26 14:40:00 Test Item Value Reference Range Comments TOTAL COUNTED (BEAKER) (test zxzh=4307) WBC MORPHOLOGY (BEAKER) (test fuww=254) Normal PLT MORPHOLOGY (BEAKER) (test cfye=364) Normal RBC MORPHOLOGY (BEAKER) (test snbl=400) Normal BASIC METABOLIC [id number] 07:34:00 Test Item Value Reference Range Comments SODIUM (BEAKER) (test 137 meq/L 136-145 gmii=351) POTASSIUM (BEAKER) (test 4.6 meq/L 3.5-5.1 kspc=605) CHLORIDE (BEAKER) (test 104 meq/L 98-107 knyv=564) CO2 (BEAKER) (test 20 meq/L 22-29 ifeg=309) BLOOD UREA NITROGEN 49 mg/dL 7-21 (BEAKER) (test axqq=333) CREATININE (BEAKER) (test 6.45 mg/dL 0.57-1.25 hfhl=852) GLUCOSE RANDOM (BEAKER) 122 mg/dL 70-105 (test cjbn=211) CALCIUM (BEAKER) (test 8.2 mg/dL 8.4-10.2 gsmp=269) EGFR (BEAKER) (test 11 mL/min/1.73 sq m ESTIMATED GFR IS NOT logi=5877) ACCURATE CREATININE CLEARANCE IN PREDICTING GLOMERULAR FILTRATION RATE. ESTIMATED GFR IS NOT APPLICABLE FOR DIALYSIS PATIENTS. [id number] 07:26:00 Test Item Value Reference Range Comments PHOSPHORUS (BEAKER) (test eivq=442) 5.0 mg/dL 2.3-4.7 [id number] 07:26:00 Test Item Value Reference Range Comments MAGNESIUM (BEAKER) (test kqlt=547) 2.0 mg/dL 1.6-2.6 HEPATIC FUNCTION [id number] 07:26:00 Test Item Value Reference Range Comments TOTAL PROTEIN (BEAKER) (test foey=506) 5.9 gm/dL 6.0-8.3 ALBUMIN (BEAKER) (test ylpb=1204) 3.3 g/dL 3.5-5.0 BILIRUBIN TOTAL (BEAKER) (test xmps=432) 0.4 mg/dL 0.2-1.2 BILIRUBIN DIRECT (BEAKER) (test guvs=661) 0.1 mg/dL 0.1-0.5 ALKALINE PHOSPHATASE (BEAKER) (test myca=602) 40 U/L 40-150 AST (SGOT) (BEAKER) (test gjye=823) 15 U/L 5-34 ALT (SGPT) (BEAKER) (test scfc=405) 14 U/L 6-55 FLOW CYTOMETRY [id number] 11:51:00 Test Item Value Reference Range Comments FLOW CYTOMETRY RESULT POINTER (BEAKER) See Separate Report (test mcpm=3201) FLOW CYTOMETRY AP CASE # (BEHARDIK) (test [id number] uvjl=0568) HEPATITIS B SURFACE [id number] 09:53:00 Test Item Value Reference Range Comments HEPATITIS B SURFACE ANTIGEN (2) (BEAKER) (test Nonreactive Nonreactive dpcj=4639) FLOW [id number] 09:46:00 Test Item Value Reference Range Comments LAB AP CPT CODE (BEAKER) (test ewyl=2297) 537[address] BASIC METABOLIC [id number] 06:27:00 Test Item Value Reference Range Comments SODIUM (BEAKER) (test 138 meq/L 136-145 vjxg=542) POTASSIUM (BEAKER) (test 5.4 meq/L 3.5-5.1 hatz=889) CHLORIDE (BEAKER) (test 108 meq/L 98-107 pvle=417) CO2 (BEAKER) (test 17 meq/L 22-29 ufxv=376) BLOOD UREA NITROGEN 50 mg/dL 7-21 (BEAKER) (test ehag=925) CREATININE (BEAKER) (test 7.33 mg/dL 0.57-1.25 exhz=944) GLUCOSE RANDOM (BEAKER) 130 mg/dL 70-105 (test bjml=874) CALCIUM (BEAKER) (test 8.5 mg/dL 8.4-10.2 qpud=282) EGFR (BEAKER) (test 9 mL/min/1.73 sq m ESTIMATED GFR IS NOT psxb=3062) ACCURATE CREATININE CLEARANCE IN PREDICTING GLOMERULAR FILTRATION RATE. ESTIMATED GFR IS NOT APPLICABLE FOR DIALYSIS PATIENTS. [id number] 06:26:00 Test Item Value Reference Range Comments PHOSPHORUS (BEAKER) (test neyc=254) 3.3 mg/dL 2.3-4.7 [id number] 06:26:00 Test Item Value Reference Range Comments MAGNESIUM (BEAKER) (test kqlf=743) 1.9 mg/dL 1.6-2.6 HEPATIC FUNCTION [id number] 06:26:00 Test Item Value Reference Range Comments TOTAL PROTEIN (BEAKER) (test qgbd=349) 5.9 gm/dL 6.0-8.3 ALBUMIN (BEAKER) (test tssk=0488) 3.2 g/dL 3.5-5.0 BILIRUBIN TOTAL (BEAKER) (test wlzr=397) 0.4 mg/dL 0.2-1.2 BILIRUBIN DIRECT (BEAKER) (test qaxc=783) 0.1 mg/dL 0.1-0.5 ALKALINE PHOSPHATASE (BEAKER) (test bgko=774) 41 U/L 40-150 AST (SGOT) (BEAKER) (test wcwc=783) 19 U/L 5-34 ALT (SGPT) (BEAKER) (test kwjx=105) 15 U/L 6-55 CBC W/PLT COUNT & AUTO [id number] 06:10:00 Test Item Value Reference Range Comments WHITE BLOOD CELL COUNT (BEAKER) (test kyiq=426) 6.7 K/ L 4.0-10.0 RED BLOOD CELL COUNT (BEAKER) (test hnfb=428) 2.87 M/ L 4.20-5.80 HEMOGLOBIN (BEAKER) (test ncyu=016) 8.6 GM/DL 13.0-16.8 HEMATOCRIT (BEAKER) (test bydg=526) 26.4 % 40.0-50.0 MEAN CORPUSCULAR VOLUME (BEAKER) (test mggv=523) 92.0 fL 82.0-98.0 MEAN CORPUSCULAR HEMOGLOBIN (BEAKER) (test 29.9 pg 27.0-33.0 stmb=323) MEAN CORPUSCULAR HEMOGLOBIN CONC (BEAKER) (test 32.5 GM/DL 32.0-36.0 atqv=589) RED CELL DISTRIBUTION WIDTH (BEAKER) (test 18.4 % 10.3-14.2 qpqa=631) PLATELET COUNT (BEAKER) (test kwjr=319) 259 K/CU MM 150-430 MEAN PLATELET VOLUME (BEAKER) (test spwr=145) 8.5 fL 6.5-10.5 NUCLEATED RED BLOOD CELLS (BEAKER) (test 0 /100 WBC 0-0 jqnn=264) NEUTROPHILS RELATIVE PERCENT (BEAKER) (test 91 % kydb=319) LYMPHOCYTES RELATIVE PERCENT (BEAKER) (test 7 % agqk=275) MONOCYTES RELATIVE PERCENT (BEAKER) (test 2 % cbdy=624) EOSINOPHILS RELATIVE PERCENT (BEAKER) (test 0 % ceqn=075) BASOPHILS RELATIVE PERCENT (BEAKER) (test 0 % znro=903) NEUTROPHILS ABSOLUTE COUNT (BEAKER) (test 6.10 K/ L 1.80-8.00 xzdv=240) LYMPHOCYTES ABSOLUTE COUNT (BEAKER) (test 0.49 K/ L 1.48-4.50 dyyx=279) MONOCYTES ABSOLUTE COUNT (BEAKER) (test 0.11 K/ L 0.00-1.30 flbn=665) EOSINOPHILS ABSOLUTE COUNT (BEAKER) (test 0.00 K/ L 0.00-0.50 qvcf=076) BASOPHILS ABSOLUTE COUNT (BEAKER) (test 0.00 K/ L 0.00-0.20 zhvm=577) 0.00CSF CELL COUNT [id number] 16:38:00 Test Item Value Reference Range Comments APPEARANCE CSF (BEAKER) (test lrhu=936) Clear Clear COLOR CSF (BEAKER) (test cirz=481) Colorless Colorless RBC CSF (BEAKER) (test nctj=267) 1 /cu mm 0-5 WBC CSF (BEAKER) (test onxt=1802) 0 /cu mm <=5 RBCS FRESH (BEAKER) (test xvxq=0540) 100% Fresh NUMBER OF CELLS DIFF'D (BEAKER) (test mtal=6389) 0 TUBE NUMBER CSF (BEAKER) (test criz=1723) 1 CBC W/PLT COUNT & AUTO [id number] 06:59:00 Test Item Value Reference Range Comments WHITE BLOOD CELL COUNT (BEAKER) (test nwmv=500) 6.5 K/ L 4.0-10.0 RED BLOOD CELL COUNT (BEAKER) (test csyc=134) 2.67 M/ L 4.20-5.80 HEMOGLOBIN (BEAKER) (test oynt=308) 8.1 GM/DL 13.0-16.8 HEMATOCRIT (BEAKER) (test vter=923) 25.3 % 40.0-50.0 MEAN CORPUSCULAR VOLUME (BEAKER) (test pwmh=596) 94.7 fL 82.0-98.0 MEAN CORPUSCULAR HEMOGLOBIN (BEAKER) (test 30.2 pg 27.0-33.0 rgua=097) MEAN CORPUSCULAR HEMOGLOBIN CONC (BEAKER) (test 31.9 GM/DL 32.0-36.0 teoh=923) RED CELL DISTRIBUTION WIDTH (BEAKER) (test 18.1 % 10.3-14.2 ynho=623) PLATELET COUNT (BEAKER) (test wvsm=615) 230 K/CU MM 150-430 MEAN PLATELET VOLUME (BEAKER) (test ktly=111) 8.7 fL 6.5-10.5 NUCLEATED RED BLOOD CELLS (BEAKER) (test 0 /100 WBC 0-0 rjay=248) NEUTROPHILS RELATIVE PERCENT (BEAKER) (test 53 % advw=198) LYMPHOCYTES RELATIVE PERCENT (BEAKER) (test 20 % tjmf=460) MONOCYTES RELATIVE PERCENT (BEAKER) (test 21 % fmau=477) EOSINOPHILS RELATIVE PERCENT (BEAKER) (test 5 % ocmd=769) BASOPHILS RELATIVE PERCENT (BEAKER) (test 2 % ycod=008) NEUTROPHILS ABSOLUTE COUNT (BEAKER) (test 3.46 K/ L 1.80-8.00 jhvp=886) LYMPHOCYTES ABSOLUTE COUNT (BEAKER) (test 1.29 K/ L 1.48-4.50 rpss=440) MONOCYTES ABSOLUTE COUNT (BEAKER) (test 1.35 K/ L 0.00-1.30 vzff=390) EOSINOPHILS ABSOLUTE COUNT (BEAKER) (test 0.34 K/ L 0.00-0.50 zgyk=388) BASOPHILS ABSOLUTE COUNT (BEAKER) (test 0.11 K/ L 0.00-0.20 wtzv=840) 0.00BASIC METABOLIC [id number] 06:18:00 Test Item Value Reference Range Comments SODIUM (BEAKER) (test 141 meq/L 136-145 pqej=430) POTASSIUM (BEAKER) (test 4.0 meq/L 3.5-5.1 mxfs=960) CHLORIDE (BEAKER) (test 109 meq/L 98-107 dcft=287) CO2 (BEAKER) (test 21 meq/L 22-29 cxjx=144) BLOOD UREA NITROGEN 39 mg/dL 7-21 (BEAKER) (test zvfg=161) CREATININE (BEAKER) (test 6.78 mg/dL 0.57-1.25 qfxr=230) GLUCOSE RANDOM (BEAKER) 84 mg/dL 70-105 (test vyca=540) CALCIUM (BEAKER) (test 8.4 mg/dL 8.4-10.2 jdjx=026) EGFR (BEAKER) (test 10 mL/min/1.73 sq m ESTIMATED GFR IS NOT prii=8379) ACCURATE CREATININE CLEARANCE IN PREDICTING GLOMERULAR FILTRATION RATE. ESTIMATED GFR IS NOT APPLICABLE FOR DIALYSIS PATIENTS. [id number] 06:17:00 Test Item Value Reference Range Comments PHOSPHORUS (BEAKER) (test hlpf=963) 4.9 mg/dL 2.3-4.7 [id number] 06:17:00 Test Item Value Reference Range Comments MAGNESIUM (BEAKER) (test uqmt=856) 1.8 mg/dL 1.6-2.6 HEPATIC FUNCTION [id number] 06:17:00 Test Item Value Reference Range Comments TOTAL PROTEIN (BEAKER) (test ehmb=212) 5.7 gm/dL 6.0-8.3 ALBUMIN (BEAKER) (test kfeq=5295) 3.2 g/dL 3.5-5.0 BILIRUBIN TOTAL (BEAKER) (test wqff=463) 0.3 mg/dL 0.2-1.2 BILIRUBIN DIRECT (BEAKER) (test nglo=065) 0.1 mg/dL 0.1-0.5 ALKALINE PHOSPHATASE (BEAKER) (test wxeb=968) 42 U/L 40-150 AST (SGOT) (BEAKER) (test ehdk=471) 17 U/L 5-34 ALT (SGPT) (BEAKER) (test jajk=020) 13 U/L 6-55 COMPREHENSIVE METABOLIC [id number] 21:37:00 Test Item Value Reference Range Comments TOTAL PROTEIN (BEAKER) 5.9 gm/dL 6.0-8.3 (test semb=676) ALBUMIN (BEAKER) (test 3.3 g/dL 3.5-5.0 jjgk=9576) ALKALINE PHOSPHATASE 44 U/L 40-150 (BEAKER) (test kyfq=779) BILIRUBIN TOTAL (BEAKER) 0.3 mg/dL 0.2-1.2 (test htjq=481) SODIUM (BEAKER) (test 141 meq/L 136-145 heji=939) POTASSIUM (BEAKER) (test 3.8 meq/L 3.5-5.1 tcxh=429) CHLORIDE (BEAKER) (test 106 meq/L 98-107 qonx=069) CO2 (BEAKER) (test 23 meq/L 22-29 jgzd=682) BLOOD UREA NITROGEN 39 mg/dL 7-21 (BEAKER) (test jgas=155) CREATININE (BEAKER) (test 6.56 mg/dL 0.57-1.25 imjx=379) GLUCOSE RANDOM (BEAKER) 103 mg/dL 70-105 (test onrv=026) CALCIUM (BEAKER) (test 8.5 mg/dL 8.4-10.2 lbau=711) AST (SGOT) (BEAKER) (test 17 U/L 5-34 xrkq=449) ALT (SGPT) (BEAKER) (test 13 U/L 6-55 lnlv=073) EGFR (BEAKER) (test 11 mL/min/1.73 sq m ESTIMATED GFR IS NOT lpzh=4613) ACCURATE CREATININE CLEARANCE IN PREDICTING GLOMERULAR FILTRATION RATE. ESTIMATED GFR IS NOT APPLICABLE FOR DIALYSIS PATIENTS. URIC [id number] 21:36:00 Test Item Value Reference Range Comments URIC ACID (BEAKER) (test cvkt=836) 4.9 mg/dL 2.6-7.2 LACTATE DEHYDROGENASE (LDH)[id number] 21:36:00 Test Item Value Reference Range Comments LACTATE DEHYDROGENASE (BEAKER) (test nhau=027) 223 U/L 125-220 PROTHROMBIN [id number] 21:23:00 Test Item Value Reference Range Comments PROTIME (BEAKER) (test hzgz=801) 13.2 seconds 11.7-14.7 INR (BEAKER) (test rgqp=088) 1.0 <=5.9 RECOMMENDED COUMADIN/WARFARIN INR THERAPY RANGESSTANDARD DOSE: 2.0 - 3.0 Includes: PROPHYLAXIS forvenous thrombosis, systemic embolization; TREATMENT for venous thrombosis and/or pulmonary embolus.HIGH RISK: Target INR is 2.5-3.5 for patients with mechanical heart valves.CBC W/PLT COUNT & AUTO [id number] 21:18:00 Test Item Value Reference Range Comments WHITE BLOOD CELL COUNT (BEAKER) (test ooni=250) 6.6 K/ L 4.0-10.0 RED BLOOD CELL COUNT (BEAKER) (test hhfa=720) 2.54 M/ L 4.20-5.80 HEMOGLOBIN (BEAKER) (test wgtq=240) 7.8 GM/DL 13.0-16.8 HEMATOCRIT (BEAKER) (test koex=778) 23.9 % 40.0-50.0 MEAN CORPUSCULAR VOLUME (BEAKER) (test uwee=040) 94.4 fL 82.0-98.0 MEAN CORPUSCULAR HEMOGLOBIN (BEAKER) (test 30.8 pg 27.0-33.0 xnmm=241) MEAN CORPUSCULAR HEMOGLOBIN CONC (BEAKER) (test 32.7 GM/DL 32.0-36.0 xtrm=002) RED CELL DISTRIBUTION WIDTH (BEAKER) (test 18.1 % 10.3-14.2 eazp=353) PLATELET COUNT (BEAKER) (test lxfb=107) 219 K/CU MM 150-430 MEAN PLATELET VOLUME (BEAKER) (test pyks=311) 8.1 fL 6.5-10.5 NUCLEATED RED BLOOD CELLS (BEAKER) (test 0 /100 WBC 0-0 lqac=305) NEUTROPHILS RELATIVE PERCENT (BEAKER) (test 50 % egml=856) LYMPHOCYTES RELATIVE PERCENT (BEAKER) (test 22 % qwrs=966) MONOCYTES RELATIVE PERCENT (BEAKER) (test 22 % tlth=390) EOSINOPHILS RELATIVE PERCENT (BEAKER) (test 5 % ylmi=349) BASOPHILS RELATIVE PERCENT (BEAKER) (test 1 % ebsn=841) NEUTROPHILS ABSOLUTE COUNT (BEAKER) (test 3.32 K/ L 1.80-8.00 qqjw=780) LYMPHOCYTES ABSOLUTE COUNT (BEAKER) (test 1.44 K/ L 1.48-4.50 ulak=569) MONOCYTES ABSOLUTE COUNT (BEAKER) (test 1.44 K/ L 0.00-1.30 vwqj=350) EOSINOPHILS ABSOLUTE COUNT (BEAKER) (test 0.32 K/ L 0.00-0.50 tlsv=986) BASOPHILS ABSOLUTE COUNT (BEAKER) (test 0.09 K/ L 0.00-0.20 jdsd=320) 0.00
[2018-07-18] MEDS ORDERED: MORPHINE 4 MG/ML SYR ONE (14:11)
[2018-07-18] MEDS ORDERED: ONDANSETRON 4 MG/2 ML VIAL ONE (14:11)
--- NOTE | 2018-07-18 14:51 | RAD REPORT ---
EXAM DESCRIPTION: CT - Abdomen Pelvis Wo Contrast - 07/18/2018 2:39 pm CLINICAL HISTORY: Abdominal pain, right flank pain COMPARISON: None. TECHNIQUE: Axial [address] imaging of the abdomen and pelvis was performed without IV contrast. No IV contrast was given because of allergy, abnormal renal function, patient refusal or physician re quest. No oral contrast administered. All CT scans are performed using dose optimization technique as appropriate and may include automated exposure control or mA/KV adjustment according to patient size. FINDINGS: Scarring changes are present in each posterior lung base. No acute lung base finding. No p ericardial thickening or effusion. The liver, spleen and pancreas show no suspicious findings on non-contrast imaging. Gallbladder and b iliary tree are also without suspicious finding. Gallstones can be occult on CT imaging. No hydronephrosis of either kidney. No obstructing calculi. Left-side vascular calcifications are pre sent. In the lateral upper to mid right kidney a 19 millimeter round low-density mass is present. Med ial mid right kidney shows a 2.2 centimeter round low-density mass. In the midportion medially right kidney there is a 3.8 centimeter oval low-density mass. This does not meet cyst criteria. Attenuation is 31 Hounsfield units. Lower pole right kidney shows a 4.4 centimeter mass believed to be a simple cyst. Low-density mass 15 mm in size is present upper pole left kidney most likely a cyst. No significant adrenal finding. Isodense renal masses and pyelonephritis cannot be excluded in the ab sence of IV contrast. Circumferential wall thickening of the urinary bladder is present. There is a 3 centimeter lobulated mass near the trigone that could be bladder in origin or represent invasion fro m the prominent prostate gland. Wall thickening could be from cystitis but is probably secondary to a prostatic urethra outflow obstructive process. No anterior rectal wall or pelvic side wall invasion from the prostate gland. There are numerous phleboliths along the floor the pelvis. No dilated bowel loops or bowel wall thickening. No free air, free fluid or inflammatory stranding. N o appendicitis findings. No bulky lymphadenopathy identified. Small fat only umbilical hernia is pres ent. Disc and bony degenerative changes are present. No acute or destructive bone process seen. There is f racture repair changes to the right hemipelvis. IMPRESSION: Approximately 3 centimeter lobulated mass at the trigone of the bladder. This could be a primary bladder mass or invasion from the prostate gland. Thickened irregular circumferential wall thickening of the bladder. This is likely secondary to a pro static urethra obstructive process rather than cystitis. No hydronephrosis or obstructing calculus of either kidney. There are multiple low-density masses pre sent that are likely cysts. However, in the medial mid right kidney there is a 3.8 centimeter mass le ss convincing for simple cyst. If the patient cannot receive IV contrast for follow-up CT imaging, ri [facility] [place] renal ultrasound may be helpful. Full assessment is limited is the absence of IV contrast.
[2018-07-18 14:54] LABS: Absolute Lymphocytes (CBC) 0.5 K/uL (0.7-4.9); Absolute Monocytes 0.5 K/uL (0.1-1.3); Absolute Neutrophil 5.7 K/uL (1.8-8.0); Basophils % 0.8 % (0-1.3); Eosinophils % 0.3 % (0-4.4); Hematocrit 32.7 % (39.6-49.0); Lymphocytes % 7.8 % (15.3-44.8); MPV 9.1 fL (7.6-11.3); Monocytes % 7.6 % (3.3-12.3); RBC Red Blood Cell Count 3.68 M/uL (4.33-5.43)
[2018-07-18 15:05] LABS: Albumin 3.5 g/dL (3.4-5.0); Bilirubin Direct 0.1 mg/dL (0-0.2); Bilirubin Total 0.3 mg/dL (0.2-1.0); Potassium 4.6 mmol/L (3.5-5.1); Protein, Total 7.5 g/dL (6.4-8.2)
[2018-07-18] MEDS ORDERED: CEFTRIAXONE/SWI 1gm 1 GM/10 ML SYR ONE (15:55)
--- NOTE | 2018-07-18 15:59 | EDPHYS ---
Physician Documentation [facility] Name: Naldo Alejandre Age: 63 yrs Sex: Male : 1955 Arrival Date: 07/18/2018 Time: 12:25 Bed 16 Private MD: ED Physician Vasquez Chambers HPI: 07/18 14:01 This 63 yrs old Black Male presents to ER via Ambulatory with complaints of Vomiting, ma2 Flank Pain. 14:01 The patient presents to the emergency department with nausea. Onset: The ma2 symptoms/episode began/occurred gradually, 1 day(s) ago. The symptoms are aggravated by nothing. The symptoms are alleviated by nothing. Associated signs and symptoms: Pertinent positives: abdominal pain, Pertinent negatives: belching, dysuria, flatulence. Severity of symptoms: At their worst the symptoms were moderate in the emergency department the symptoms are unchanged. The patient has not experienced similar symptoms in the past. Historical: - Allergies: 12:41 No Known Allergies; hb - Home Meds: 12:41 amitriptyline 25 mg Oral tab 1 tab once daily [Active]; lisinopril 5 mg Oral tab 1 tab hb once daily [Active]; Tums 200 mg calcium (500 mg) Oral chew daily [Active]; - PMHx: 12:41 Dialysis T-Th-Sat; ESRD; Hyperlipidemia; Hypertension; kidney disease; LYMPHOMA; hb - PSHx: 12:41 hip sx; right chest wall jasvir; hb - Immunization history:: Adult Immunizations up to date. - Social history:: Smoking status: Patient/guardian denies using tobacco, Patient/guardian denies using alcohol, street drugs, The patient lives with family. - Ebola Screening: : No symptoms or risks identified at this time. - Family history:: not pertinent. ROS: 14:01 Constitutional: Negative for fever, chills, and weight loss, Cardiovascular: Negative ma2 for chest pain, palpitations, and edema, Respiratory: Negative for shortness of breath, cough, wheezing, and pleuritic chest pain, Abdomen/GI: Negative for abdominal pain, nausea, diarrhea, and constipation. 14:01 Back: Positive for flank pain, Negative for decreased range of motion. 14:01 All other systems are negative. Exam: 14:01 Constitutional: This is a well developed, well nourished patient who is awake, alert, ma2 and in no acute distress. 14:01 Chest/axilla: Normal chest wall appearance and motion. Nontender with no deformity. No lesions are appreciated. Cardiovascular: Regular rate and rhythm with a normal S1 and S2. No gallops, murmurs, or rubs. Normal PMI, no JVD. No pulse deficits. Respiratory: Lungs have equal breath sounds bilaterally, clear to auscultation and percussion. No rales, rhonchi or wheezes noted. No increased work of breathing, no retractions or nasal flaring. Abdomen/GI: Soft, non-tender, with normal bowel sounds. No distension or tympany. No guarding or rebound. No evidence of tenderness throughout. MS/ Extremity: Pulses equal, no cyanosis. Neurovascular intact. Full, normal range of motion. Neuro: Awake and alert, GCS 15, oriented to person, place, time, and situation. Cranial nerves II-XII grossly intact. Motor strength 5/5 in all extremities. Sensory grossly intact. Cerebellar exam normal. Normal gait. 14:01 Back: pain, that is moderate, ROM is normal, CVA tenderness, that is moderate, is noted on the right, vertebral tenderness, is not appreciated. Vital Signs: 12:38 BP 133 / 88; Pulse 78; Resp 16; Temp 97.8; Pulse Ox 97% on R/A; Pain 7/10; hb MDM: 13:31 Patient medically screened. [facility] 14:01 Differential diagnosis: gastritis, cholecystitis, pancreatitis, appendicitis, sd2 gastroenteritis. 15:53 Data reviewed: vital signs, nurses notes. Counseling: I had a detailed discussion with [facility] the patient and/or guardian regarding: the historical points, exam findings, and any diagnostic results supporting the discharge/admit diagnosis, the presence of at least one elevated blood pressure reading (>120/80) during this emergency department visit, the need for outpatient follow up. Response to treatment: the patient's symptoms have markedly improved after treatment. ED course: has right kidney mass and possible bladder infection +/- pyelonephritis given iv pain medicine and antibiotics, symptoms improved,will need to see urologist for further evaluation.. . 15:53 ED course: no SIRS. [facility] 07/18 13:44 Order name: Basic Metabolic Panel; Complete Time: 15:31 [facility] 07/18 13:44 Order name: CBC with Diff; Complete Time: 15:31 ma2 07/18 13:44 Order name: Creatinine for Radiology; Complete Time: 15:31 ma2 07/18 13:44 Order name: Hepatic Function; Complete Time: 15:31 ma2 07/18 13:44 Order name: Lipase; Complete Time: 15:31 ma2 07/18 13:44 Order name: CT Abd/Pelvis - Without Cont; Complete Time: 15:31 ma2 07/18 13:44 Order name: IV Saline Lock; Complete Time: 14:43 ma2 07/18 13:44 Order name: Labs collected and sent; Complete Time: 14:43 ma2 07/18 15:33 Order name: Urine Dipstick-Ancillary (obtain specimen); Complete Time: 17:49 ma2 Administered Medications: 14:28 Drug: Zofran 4 mg Route: IVP; Site: left antecubital; dm5 14:30 Drug: morphine 4 mg Route: IVP; Site: left antecubital; 5 17:00 Drug: TORadol 30 mg Route: IVP; Site: left antecubital; sg 17:15 Drug: Rocephin 1 grams Route: IV; Rate: calculated rate; Site: left antecubital; sg Disposition: 07/18/18 15:59 Discharged to Home. Impression: Cyst of kidney, acquired - ?mass, need further eval. - Condition is Stable. - Discharge Instructions: Renal Mass. - Prescriptions for Tylenol- Codeine #3 300-30 mg Oral Tablet - take 2 tablet by ORAL route every 6 hours As needed; 30 tablet. Bactrim DS 800- 160 mg Oral Tablet - take 1 tablet by ORAL route every 12 hours for 5 days; 14 tablet. - Medication Reconciliation Form, Thank You Letter, Antibiotic Education, Prescription Opioid Use form. - Follow up: Blanca White MD; When: Tomorrow; Reason: Continuance of care. Signatures: Dispatcher [employer] Mandy Cooper RN RN dm5 Peter Shankar RN RN sg Silva Centeno RN RN hb Alzahri, Mohammad, MD MD ma2 Corrections: (The following items were deleted from the chart) 17:50 15:59 07/18/2018 15:59 Discharged to Home. Impression: Cyst of kidney, acquired - sg ?mass, need further eval. Condition is Stable. Forms are Medication Reconciliation Form, Thank You Letter, Antibiotic Education, Prescription Opioid Use. Follow up: Blanca White; When: Tomorrow; Reason: Continuance of care. ma2
--- NOTE | 2018-07-18 15:59 | ER ---
Nurse's Notes [facility] Name: Naldo Alejandre Age: 63 yrs Sex: Male : 1955 Arrival Date: 07/18/2018 Time: 12:25 Bed 16 Private MD: Diagnosis: Cyst of kidney, acquired-?mass, need further eval Presentation: 07/18 12:38 Presenting complaint: Right flank pain and nausea since this morning. Transition of hb care: patient was not received from another setting of care. Onset of symptoms was July 18, 2018. Risk Assessment: Do you want to hurt yourself or someone else? Patient reports no desire to harm self or others. Care prior to arrival: None. 12:38 Method Of Arrival: Ambulatory hb 12:38 Acuity: TERRI 3 hb Historical: - Allergies: 12:41 No Known Allergies; hb - Home Meds: 12:41 amitriptyline 25 mg Oral tab 1 tab once daily [Active]; lisinopril 5 mg Oral tab 1 tab hb once daily [Active]; Tums 200 mg calcium (500 mg) Oral chew daily [Active]; - PMHx: 12:41 Dialysis T-Th-Sat; ESRD; Hyperlipidemia; Hypertension; kidney disease; LYMPHOMA; hb - PSHx: 12:41 hip sx; right chest wall jasvir; hb - Immunization history:: Adult Immunizations up to date. - Social history:: Smoking status: Patient/guardian denies using tobacco, Patient/guardian denies using alcohol, street drugs, The patient lives with family. - Ebola Screening: : No symptoms or risks identified at this time. - Family history:: not pertinent. Vital Signs: 12:38 BP 133 / 88; Pulse 78; Resp 16; Temp 97.8; Pulse Ox 97% on R/A; Pain 7/10; hb ED Course: 12:25 Patient arrived in ED. as 12:39 Triage completed. hb 12:40 Arm band placed on. hb 13:31 Vasquez Chambers MD is Attending Physician. ma2 13:57 Peter Shankar, ELEONORA is Primary Nurse. sg 14:20 Missed attempt(s): 20 gauge in left antecubital area. Bleeding controlled, band aid sg applied, catheter tip intact. 14:25 Inserted saline lock: 22 gauge in left antecubital area, using aseptic technique. Blood dm5 collected. Missed attempt(s): 22 gauge in left forearm. antecubital area. Bleeding controlled, band aid applied, catheter tip intact. 14:39 CT Abd/Pelvis - Without Cont In Process Unspecified. EDMS 14:39 CT completed. Patient moved to CT. Patient moved back from CT. nj 15:55 Blanca White MD is Referral Physician. ma2 Administered Medications: 14:28 Drug: Zofran 4 mg Route: IVP; Site: left antecubital; dm5 14:30 Drug: morphine 4 mg Route: IVP; Site: left antecubital; dm5 17:00 Drug: TORadol 30 mg Route: IVP; Site: left antecubital; sg 17:15 Drug: Rocephin 1 grams Route: IV; Rate: calculated rate; Site: left antecubital; sg Outcome: 15:59 Discharge ordered by . ma2 17:50 Discharged to home ambulatory, with family. sg 17:50 Condition: good 17:50 Discharge instructions given to patient, family, Instructed on discharge instructions, follow up and referral plans. medication usage, safety practices, Demonstrated understanding of instructions, follow-up care, medications, Prescriptions given X 2. 17:50 Patient left the ED. sg Signatures: Dispatcher [employer] EDMS Mandy Herring, ELEONORA CREWS dm5 Peter Shankar RN RN sg Martinez, Amelia as Baxter, Heather, RN RN hb Jordan, Nathan nj Alzahri, Mohammad, MD MD ma2
[2018-07-18] MEDS ORDERED: KETOROLAC 30 MG/ML INJ ONE (16:23)
[2018-07-18 18:21] VITALS: BP 133/88; TEMP 97.8; O2SAT 97
== END 2018-07-18 17:50 | disposition home or self-care (01) ==
LOC: ER 12:23
DX: N28.1 Cyst of kidney, acquired (principal); R11.2 Nausea with vomiting, unspecified; I12.0 Hypertensive chronic kidney disease with stage 5 chronic kidney disease or end stage renal disease; N18.6 End stage renal disease; Z99.2 Dependence on renal dialysis; E78.5 Hyperlipidemia, unspecified
CPT/HCPCS: 85025; 80048; 36415; 80076; 83690; 74176; 96375; 96374; 99284; J0696; J2405

== ENCOUNTER 2020-08-20 15:36 | Inpatient (IN) | payer OTHER ==
--- OUTSIDE RECORDS SUMMARY | 2020-08-20 15:43 | XMS REPORT | Continuity of Care Document ---
:1955 Author Organization [facility] t Address [address] [place] [address] Care Team Providers Name Role Phone Pcp MD Primary Care Physician Unavailable Junior MANDUJANO Attending Clinician Unavailable Junior Mandujano MD Attending Clinician Jimmie NGUYEN Attending Clinician Raul Willoughby MD Attending Clinician Satinder Smith MD Attending Clinician Jovi Baeza MD Attending Clinician Jaylon Mckoy MD Attending Clinician Maximo Young MD Attending Clinician Roby Underwood MD Attending Clinician Luigi Reynaga MD Attending Clinician Gil MCALLISTER Attending Clinician Silviano Carlos MD Attending Clinician Maximo Young MD Attending Clinician , [facility] Room Attending Clinician Unavailable Carl Kee MD Attending Clinician Unavailable SILVIANO CARLOS Attending Clinician Unavailable BRAN JOVEL Attending Clinician Unavailable MITCHEL Attending Clinician Unavailable Lyubov MANUEL Attending Clinician Unavailable Iza WORKMAN Attending Clinician Unavailable RUDDY FAGAN Attending Clinician Unavailable MARK RUBI Attending Clinician Unavailable Yane GOLDMAN Attending Clinician Unavailable JAVIER CAO Attending Clinician Unavailable RAUL WILLOUGHBY Admitting Clinician Unavailable SILVIANO CARLOS Admitting Clinician Unavailable BRAN JOVEL Admitting Clinician Unavailable MITCHEL Admitting Clinician Unavailable Lyubov MANUEL Admitting Clinician Unavailable RUDDY FAGAN Admitting Clinician Unavailable Junior MANDUJANO Admitting Clinician Unavailable MARK RUBI Admitting Clinician Unavailable Yane GOLDMAN Admitting Clinician Unavailable JAVIER CAO Admitting Clinician Unavailable Payers Payer Name Policy Type Policy Effective Date Expiration Date Sour ce Number MEDICAREMEDICARE A [id number] [id number]P [facility] Problems Condition Condition Condition Status Onset Resolution Last Treating Co mments Source Name Details Category Date Date Treatment Clinician Date Anemia Anemia Disease [facility] Medical 00 [place] Mediastina Mediastina Disease Active [facility] l 3-22 [facility] - lymphadeno lymphadeno 00:00: Me dical nati nati 00 [place] Chronic Chronic Disease Active [facility] bronchitis bronchitis 3-12 [facility] - 00:00: Medical 00 [place] Left arm Left arm Disease [facility] 2017[facility] PAD PAD Disease Active 2017-[address] [facility] [address] (periphera (periphera 1-13 [facility] - l artery l artery 00:00: Medica l disease) disease) 00 Center Acute deep Acute deep Disease Active [facility] vein vein 01-14 [facility] - thrombosis thrombosis 00:00: Me dical (DVT) (DVT) 00 Center Peripheral Peripheral Disease Active [facility] T cell T cell 01-07 [facility] - lymphoma lymphoma 00:00: Medica l of of 00 Center axillary axillary lymph lymph nodes nodes Vascular Vascular Disease [facility] infection infection 00:00: Medi dimitry 00 Center End stage End stage Disease Active [facility] chronic chronic 8-31 [facility] - kidney kidney 00:00: Medical disease disease 00 Center HTN HTN Disease Active [facility] (hypertens (hypertens 8-31 [facility] - ion) ion) 00:00: Medical 00 Center MRSA MRSA Disease Active 2016-[address] [facility] bacteremia bacteremia 0-27 [facility] - 00:00: Medical 00 Center MSSA MSSA Disease Active 2016-[address] [facility] [address] (methicill (methicill 0-27 [facility] - in in 00:00: Medical susceptibl susceptibl 00 Ce nter e e Staphyloco Staphyloco ccus ccus aureus) aureus) infection infection Metabolic Metabolic Disease Active 2016-[address] [facility] [address] acidosis acidosis 0-24 [facility] - 00:[facility]: Medical 00 Center CLABSI CLABSI Disease Active 2016-[address] [facility] [address] (central (central 0-23 [facility] - line-assoc line-assoc 00:00: Me dical iated iated 00 Center bloodstrea bloodstrea m m infection) infection) Sepsis Sepsis Disease Active 2016-[address] [facility] 0-20 [facility] - 00:00: Medical 00 Center Peripheral Peripheral Disease Active [facility] T-cell T-cell 4-19 [facility] - lymphoma lymphoma 00:00: Medica l of lymph of lymph 00 Center nodes of nodes of head, head, face, or face, or neck neck Admission Admission Disease Active [facility] for for 4-19 [facility] - antineopla antineopla 00:00: Me dical stic stic 00 Center chemothera chemothera py py 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 3-08 [facility] - 00:00: Medical 00 [place] Lymphoma Lymphoma Disease [facility]: Medical 00 Center Encounter Encounter Disease Active [facility] for for 2-15 [facility] - antineopla antineopla 00:00: Me dical stic stic 00 Center chemothera chemothera py py T-cell T-cell Disease Active [facility] acute acute 2-15 [facility] - lymphoblas lymphoblas 00:00: Me dical tic tic 00 Center leukemia leukemia (ALL) (ALL) Encounter Encounter Disease Active [facility] for for 1-12 [facility] - chemothera chemothera 00:00: Me dical py py 00 Center management management Lymphoma Lymphoma Disease [facility] Medical 00 Center ALL (acute ALL (acute Disease Active [facility] lymphoblas lymphoblas 1-12 [facility] - tic tic 00:00: Medical leukemia) leukemia) 00 Cent er UTI UTI Disease Active 2015-[address] [facility] [address] (urinary (urinary 2-18 [facility] - tract tract 00:00: Medical infection) infection) 00 Ce nter Lymphoma Lymphoma Disease Active 2015-05 [facility] - [facility]: Medical 00 [place] Hypertensi Hypertensi Disease Active 2015-[address] on on 2-14 [facility] - 00:00: Medical 00 [place] Hyperchole Hyperchole Disease Active 2015-[address] steremia steremia 2-14 [facility] - 00:00: Medical 00 [place] End stage End stage Disease Active 2015-[address] [facility] renal renal 2-14 [facility] - disease on disease on 00:00: Nh dical dialysis dialysis 00 Center Neck Neck Disease Active 2015-[address] [facility] swelling swelling 2-13 [facility] - 00:00: Medical 00 [place] SOB SOB Disease Active 2015-[address] [facility] (shortness (shortness 2-12 [facility] - of breath) of breath) 00:00: Me dical 00 [place] Stridor Stridor Disease Active 2015-[address] 2-12 [facility] - 00:00: Medical 00 Center Allergies, Adverse Reactions, Alerts This patient has no known allergies or adverse reactions. Family History Family Member Diagnosis Comments Start Date Stop Date Source Natural father Hypertension [facility] Natural mother Hypertension [facility] Paternal grandfather Cancer [facility] Social History Social Habit Start Date Stop Date Quantity Comments Source Sex Assigned At [facility] Exposure to Not sure [facility] SARS-CoV-2 [facility] (event) Tobacco use and 2020-07-25 2020-07-25 Former user [facility] - exposure 00:00:00 00:00:00 [facility] Alcohol intake 2020-07-25 2020-07-25 Current [facility] es - 00:00:00 00:00:00 non-drinker of Medical Ce nter alcohol (finding) Smoking Status Start Date Stop Date Source Current some day smoker 2020-07-25 00:00:[address] [facility] Medications Ordered Filled Start Stop Current Ordering Indication Dosage Frequency Signature Comments Components Source Medication Medication Date Date Medication? Clinician (SIG) Name Name lovastatin Yes 20mg QD Take [address] (MEVACOR) 3-19 by mouth [facility] - 20 MG 23:29: nightly. Medical tablet 39 Center terazosin Yes 5mg Q.5D Take [address] (HYTRIN) 5 3-19 by mouth 2 Andi es - MG capsule 23:29: (two) Medica l 39 times Center daily . hydrALAZINE Yes 50mg Q.5D Take [address] (APRESOLINE 3-19 by mouth 2 [facility]en kes - ) 50 MG 23:29: (two) Medical tablet 39 times Center daily . sevelamer Yes 800mg Take [address] [facility] (RENVELA) 3-19 mg by [facility] - 800 mg 23:29: mouth 3 Medical tablet 39 (three) Center times daily with meals. metoprolol Yes 100mg QD Take [address] (TOPROL-XL) 3-19 mg by [facility] - 100 MG 24 23:29: mouth Medical hr tablet 39 daily. [place] NIFEdipine Yes 90mg QD Take [address] (ADALAT CC) 3-19 by mouth Luke s - 90 MG 24 hr 23:29: daily. Medi dimitry tablet 39 Center fluticasone Yes Inhale by [facility] /umeclidin/ 3-19 mouth via Andi es - vilanter 23:29: inhaler. Medic al (TRELEGY 39 Center ELLIPTA INHL) pantoprazol 2020- Yes 40mg Q.5D Take [address] e 3-19 04-18 tablet (40 [facility] - (PROTONIX) 00:00: 23:59 mg total) M edical 40 MG 00 :00 by mouth 2 Center tablet (two) times daily for 30 days. ELIQUIS 5 Yes TAKE 1/[address] MG tablet 5-04 TABLET(2.5 Luke s - 00:00: MG) BY Medical 00 MOUTH Center TWICE DAILY traMADol 2016-05 Yes 50mg Take [address] [facility] [address] (ULTRAM) 50 0-27 tablet (50 [facility]en kes - mg tablet 00:00: mg total) Med ical 00 by mouth Center every 6 (six) hours as needed for Pain (s/p pharangeal biospy). Max Daily Amount: 200 mg Vital Signs Vital Name Observation Time Observation Value Comments Source Systolic blood 2020-07-25 19:40:00 158 mm[Hg] [facility] Diastolic blood 2020-07-25 19:40:00 89 mm[Hg] [facility] Heart rate 2020-07-25 19:40:00 95 /min [facility] Body temperature 2020-07-25 19:40:00 36.17 Chari [facility] Respiratory rate 2020-07-25 19:40:00 18 /min [facility] Oxygen saturation in 2020-07-25 19:40:00 95 /min [facility] Arterial blood by Medical Ce nter Pulse oximetry Body weight 2020-07-25 19:11:00 95 kg [facility] BMI 2020-07-25 19:11:00 26.89 kg/m2 [facility] Procedures Procedure Date / Time Performed Performing Clinician Lachelle e PREPARE LEUKO-REDUCED RBC 2020-07-25 23:54:00 Andrew Samuel [facility] HEMODIALYSIS INPATIENT 2020-07-25 19:30:00 Abundio Guy [facility] REPORT OF PROCEDURE - 2020-07-25 19:14:03 Leelee [facility] ENDOSCOPY [facility] REPORT OF PROCEDURE - 2020-07-25 13:09:[address] [facility] TISSUE EXAM 2020-07-25 12:37:00 Mack Mckoy [facility] UPPER ENDOSCOPY,BIOPSY 2020-07-25 12:16:00 Mack Mckoy [facility] COLONOSCOPY 2020-07-25 12:[facility]00 [facility] HEPATITIS B SURFACE 2020-07-25 03:47:00 Abundio Guy [facility] CBC W/PLT COUNT & AUTO 2020-07-25 03:47:00 Funmilayo Willoughby [facility] BASIC METABOLIC PANEL (7) 2020-07-25 03:47:00 Funmilayo Willoughby [facility] BASIC METABOLIC PANEL (7) 2020-07-24 06:08:00 [facility] HEPATIC FUNCTION PANEL 2020-07-24 06:08:00 [facility] MAGNESIUM 2020-07-24 06:08:00 [facility] PHOSPHORUS 2020-07-24 06:08:00 [facility] CBC W/PLT COUNT & AUTO 2020-07-24 06:08:00 [facility] TRANSFUSE LEUKO-REDUCED 2020-07-24 03:45:56 [facility] RED BLOOD CELLS [facility] CBC W/PLT COUNT & AUTO 2020-07-23 21:59:00 [facility] COMPREHENSIVE METABOLIC 2020-07-23 21:59:00 [facility] MAGNESIUM 2020-07-23 21:59:00 [facility] RETICULOCYTE COUNT 2020-07-23 21:59:00 [facility] IRON, TIBC, % SAT. 2020-07-23 21:59:00 [facility] (WITHOUT FERRITIN) [facility] 2020-07-23 21:59:00 [facility] VITAMIN B12 AND FOLATE 2020-07-23 21:59:00 [facility] HAPTOGLOBIN 2020-07-23 21:59:00 [facility] LACTATE DEHYDROGENASE 2020-07-23 21:59:[address] [facility] - [facility]LDH) [facility] PERIPHERAL BLOOD SMEAR - 2020-07-23 21:59:[address] [facility] - [facility] ONLY Medical Center TYPE AND SCREEN, 2020-07-23 21:59:[address] [facility] - AUTOMATED Medical Center SARS-COV2/RT-PCR ([facility] & 2020-07-23 20:24:[address] [facility] - REF LABS) [facility] CT CHEST WITHOUT IV 2019-11-15 18:13:[address] [facility] - CONTRAST [facility] CT ABDOMEN/PELVIS WITHOUT 2019-11-15 18:13:[address] [facility] - IV CONTRAST [facility] Plan of Care Planned Activity Planned Date Details Comments Source Future Scheduled 2021-01-[address] [facility] - Test 00:00:00 (Season Ended) [code = Medic al Center INFLUENZA VACCINE (Season Ended)] Future Scheduled 2018-10-[address] [facility] - Test 00:00:00 (procedure) [code = Medical Center [id number]] Future Scheduled 2017-01-[address] [facility] - Test 00:00:00 WELLNESS (YEAR 2 or Medical Center FIRST YEAR if no IPPE) [code = MEDICARE ANNUAL WELLNESS (YEAR 2 or FIRST YEAR if no IPPE)] Future Scheduled 2006-02-18 SHINGLES VACCINES ([address] [facility] - Test 00:00:00 of 2) [code = SHINGLES Medic al Center VACCINES (1 of 2)] Future Scheduled 1975-02-18 DTAP/TDAP/TD VACCINES [facility] - Test 00:00:00 (1 - Tdap) [code = Medical C enter DTAP/TDAP/TD VACCINES (1 - Tdap)] Future Scheduled 1974-02-18 HEPATITIS C SCREENING [facility] - Test 00:00:00 [code = HEPATITIS C Medical Center SCREENING] Future Scheduled 1962-02-[address] [facility] - Test 00:00:00 0-64 YRS (1 of 3 - Medical C enter PCV13) [code = PNEUMOCOCCAL VACCINE 0-64 YRS (1 of 3 - PCV13)] Future Scheduled [address] [facility]i es - Test 00:00:00 malignant neoplasm of Medica l Center colon (procedure) [code = 254616675] Encounters Start End Encounter Admission Attending Care Care Encounter Source Date/Time Date/Time Type Type Clinicians Facility Department ID 2020-07-23 2020-07-23 Office GEENA Young [id number] 14:58:20 15:33:17 Visit Chandra WaiteNair [id number] Maximo [id number] 2020-06-12 2020-06-12 Office ANDREEA Reynaga [id number] 13:43:36 15:53:35 Visit Naif Fishern AMBULATOR [id number] Y [id number] [id number] 2020-03-26 2020-03-26 Office GEENA Young [id number] 14:34:45 16:13:29 Visit Chandra WaiteNair [id number] Maximo [id number] [id number] 2020-03-13 2020-03-13 Office Kalen Carlos [id number] 13:22:23 13:52:23 Visit Silviano AMBULATOR [id number] Y [id number] [id number] 2019-12-06 2019-12-06 Office Kalen Carlos [id number] 15:08:57 15:38:57 Visit Silviano AMBULATOR [id number] Y [id number] [id number] 2019-11-26 2019-11-26 Office Kalen Carlos [id number] 11:32:45 16:18:07 Visit Silviano AMBULATOR [id number] Y [id number] [id number] 2019-09-19 2019-09-19 [facility] [id number] 16:13:39 16:30:34 Visit Chandra Christie [id number] Maximo [id number] Results Test Description Test Time Test Comments Results Result Comments Source Tissue Exam 2020-07-30 14:16:00 Test Item Value Reference Range Interpretation Comme nts Case Report (test code = 104) Surgical Pathology Report Case: [id number] Authorizing Provider: Mack Mckoy, Collected: 07/25/2020 12:37 PM Ordering Location: [address] Received: 07/25/2020 03:25 PM Service Pathologist: Zaida Newsome MD Specimens: A) - Duodenum, random biopsy B) - Biopsy, Gastric, random biopsy DIAGNOSIS (test code = 3220) [id number]PkOs p cdWMxIHtccnRmMVxlcGljOTIwMlxhbnNpXHNwbH HnP1ZhdrhoDVuhML0tER3roTiumRRvkPCnUEVhM eEvk8rll320kKZib8guSSHOqxfitEg5aNhaI13e j9A0HhiuP66gnPAnWRrymBYqavtimiRwCGGiSLQ RQI8SNB8GKTPeHAXQC0JZSSlsPMPmRNRsOABJUT CLSicFGN7UMSWVWBOBKIZbE1lUGRPVGPCZOBqWX LYAIZRNX2UYKWuEZJEbJ14ELMFPOAejtFWvSF4j IIYqNVoXEYVFNCyGH1KPUXDKNH8VWP4YJZMijuM dKYQyKXGYH9STJVDCPJQBNcDHEOfQB25GYvNGKU 1TNZRTONHIUVGxvlibYPXaLd9gX4QFKULCHAbdR cPEDN7RLAGLJ5LAATxbLBBuETItACBSSa4NKNZi HQ3XY7JHFlOfU5LFESWOAQnLVHIWLZ7RIRMFUB9 PFMXarTNhHZ8oPJPSKsHJXnQFS6HJXsZAZH1ISW ZDZEMFMVGbXPFLO7WOEGCLZSQPLcEAGNQLGZ0PI VBrKNNLAqLQVDXJCKJybWRtWZ2fHJHPTqOOZIgS E82WUVSTIFSiOEoYZ9ODBTeOU9VtM7TRFD4EO29 VUWpZKB7PZFEPYRGaP98nQ4YDPCtYHwHLMSXBLa lmS2RRAW0iaUJsDJXygDVylAvlhjTxTExif8BwC NtmBWFqXH5lmTdyINInHL4uBHUwP5npnI7xlzi6 UaTwDADqSnT2JTZqvxH3Tlq8PQFcBMxne2nfq7F cPYWlGNb7hKjcByWhMZAwp2ymkvHeZbStMBAmIW OvJDKcxBKqY387q8auu6fjaeCwrAH9LMRzUSE9F AnothGdluZ0CMwgsHNoAgB9OKmfkfKrFPdpjcZz fwWqIhq6VNVgE791DUB1xRgkk1fzSDN9SNHeWBO kUzIbBw8srJCcF900CNFxZNDWIBEoeMr0ZFVknz OvpfHoiHERv618D812v6boPYSzwqPttHxMcfdpk 8lbZ657OYCrzIEmkaClTzTyRMVbhUSrqIN4QLPk JB1eizpcDUraBXdeEQNjmhB7IPFpmSDaH4IiLJH tBJ8cjcekUYI5VVvqABHuXUI5TqVvARYaa6Yxnh s3TsHgjl6xfa39NPR9f1DwqPleVIU2SJX1GiJyG b5znWGoZWRmFI1xClRylWQgOEFafm20bOblWUbg RVH0SCHtqaPxr9Eox5gnUoZjweVmH3cgO0DgTYA xOTMmIZTfQbQereGcv6Hjr5ZzqMZzuZd4m7smMO UgRQGlzAuhq6aoGAV5VIKxmFNpF5uojJ2dMHXiH H5zqtikn3xxNOzbDZerZLOrlVL3btC6QCUlnADp T0KxtH1uGKMaUMpfRPDcefj8UuKlLt0coQDtfWx yMFxzYmtwYWdlXHBnbmNvbnRccGduZGVjXHBsYW luXHBsYWluXGYwXGZzMjRccWxcbGFuZzEwMzNca EgapKznHQpxVcQmYCHdVEuyR0tiVyCdRjQoWsl7 ALAmwRUqVLBoAjm2CFFliGMmRQFGeYbdfJ4xDEI rvNqesY0sqOG2JRJquhZwgWXWlF2bMWVOcP0kFd V3PlJuFgA1TTo0SiUnhXTauT5= COMMENT (test code = 3359) k7uqkZSbMPNncEA8JdIwNOHiw0jbg4JzpPOqfZI vNYqcbHFwtcHfph08uOT2hK55WW3uURNpGwA6NX IbhsM8Ltk4UFEiBJJqeILqG797j3dxq5eaakZng CM2sZtnROTlWFZvKLmyCFZkMaYrTO6ommFll8Fh BVaigKJvUOFhpYrneMdmgAPzyZ4itC3icPIkfwe pkMMyjJ8lvXDzABOco2p6QRJhOZWbK5SdH7J0ZZ Uup5DhEn4kkAoydAVgxf7scCJaWLQnfK1yyUFoq U8xNUDcj6JuiTPyLQL9h9AuSSMaJGSngbRtZQgc H57jpmN6HSLmCPYig0Nao1Dbcj8xG5NxxGUoSaI mVPBkvKiuu7mxHTQxRHWrKTXmcIc3HJNbbSJnH6 AtVGIqNIDmwMhpRMKspKvlaBNgLnx5bsHainxhh ELdy0ShtcXaivIieCE1UYQrXRUrj07qaWZgqAln IUP5e0Voege8dDLuq2RdwIWrd2LwjBTssra7ufm vZWADwTgcaOSxeJMlr8GaNHenjGkzpwDlszOuEN VswL2mqfIuAU6neJSsbS== CPT Code(s) (test code = 8477) m6oifTMpJKNjiIB6OgExPLJwq4jcd9NqyRPb cGF yZRblqNMvtjAzlm82fUX1mH89XJ4rZOLuUfU3KV YkobV0Znt4AGJwAKUtdDWgB148w3mpn9bfjxNre ZQ3aVhwAVBpGOIzNEibUZBiPqOdSAngNSIrlXIf PWB7SVIcCefmIQB5 CLINICAL HISTORY (test code = 7896) h0pzaLRwKXWmzUW8RvDhBUDxj4qcj3Y sdHBncGF hASsyiVTqllOpni56vIB8cB00GE2eCMTjKpU0IS QxmdC0Mno6GZGqFEBrhONwO300v8jlu2yrdnAqi JC7yPkoOPBoLTBlMIhvOKHjNkMazSHtYV4yOMQe cn0= SPECIMEN SOURCE (test code = 3377) o3hzjHBmTMSgwHQ1HcWnCMTlk2kbs7Or dHBncGF pNLwctOGfcrPcwa92lCS2oX77HO1lBLVlMqD7PT QpwoC1Udj6ZGHfTXFwnOOjR079a7jag8hdtgNzf FI9yZbsVUIpARBgKAphQQCyLqVzIA2mIWE7t2Rz syKrXKpnopYjZr9qFLokz6ZiqBMceSWqzH== GROSS DESCRIPTION (test code = 3366) s6jcmYBqHJYuqZZfEpPlRDIaNQFrh3 lcZGVmbGF dZsYiZyEvChNaNaqsrNJyRRAuBwUpn1ewn776xP Ksl0cmOKXxCwP6eACfNBMhtGCrI143q6ytr4css kIweWU1UUVfGTI8ZGkneyLbyjM4JLbewPVyLqW2 AMumofMiCSdbuxYstgOaHgk9MVOuR286GPM0oVd on2ktZVD2CBZdSIGnJaTuMc1vuZTwU579UQWpSQ WPUPUrpEj9ONGvxeVzfpTmnBYEy866A920c7vrQ ZZgkzKxuRcUfrplk7wcH156ZDRbdZCbfbRgRePw LHSfiBTazSR9GVVaPA5ufifdEtHvWB7zrnmeKrY iCQ1szpn6SiDjFC3vllgkDvCrKAcaMMHmvnzuAC Apt6IhhssoWY4rB4Dmr8U2bU9zkSRsJXQaeKHbV lYySBSylz4tvPTlDCfgz5VbQWE8wwP9hORwfZNw ELQeDA52Galxq9DmDvrgOYR8TTDfbbMwp6Nhg0e lVmBvzdOuQ9boA1SeLMYgBOCfYNPlXpPwimMnq4 Hiq1TncAPngRq6f2fmGRYwLQIflYdsm0kdNDB8Z YNvS4C5gQFxn8kvPMbwFZNgsFA5xduvQHlyGBIf ezZ5nkhbQTxxJQTkeXF2txenZGuoBNWzFzR3bdr nHJlqOBXjMAK6BZsfm217SUM4TXqcJgiqRVtxJR BnbmNvbnRccGduZGVjXHBsYWluXHBsYWluXGYwX NBmAjYyiYgtlMrcfT2zZpCzIuMeFXoaPM6pAUJp J6tipHHcAGEyUXRdV8isAtAnqL8joExqPLwyllU sKHIrCFSOVREqjATnSYYxtrRyg2MoKAbjwqUfNQ IvwBIoRWEsZKFaKFLhMV16C0CkebGpTXcfUCAfI UPytO9iTF86yITnfeAxduJjZsU9h6QpusBwSmKs ieOzCbO6UU1whZnczzU9uRWprAQsTnTbX48faiN wJI2lWQO1mkekBfR9bEF8qgVrWmZqB38ejJ6bV8 GmPOLyi2EkQYclHA6stP9cHVzsjKZiCNDoOCKzq Dj1TSSsSEJqikRes1OtrMg8vQDxTPjuVBPojS8c dM8iONVuKBIvrpwlKNZjDy7dNEVoS0ZzkzGgSZl yTMMidq5cmVqkWAzdMhRlNTHieZnaFDIuzIfvxv XywcXsXZ3qHMPiL0Mwq4Exx19cynLfLlCwFUIhI LZfE0AsuDLxWxLdfO6by8ppWAAvTZXtOBXncc6e pE8sOJKyn6U1AKIygoTfvZFbmCZbuXHeo5MouR4 nIHVwIHRvIDAuMyBjbSBpbiBncmVhdGVzdCBkaW 9quiMip37rb8otU5awJXWyEFCtcNWfwaGiXMSvD QQqzHYemSM0ONQyoE8btA46pwBnfyMDUP1ftIPc UBPjqaBIzQrgolODwvr8TNwiWCJmHCLAKLPGHWE oQVNDUClccGFyfQ== MICROSCOPIC DESCRIPTION (test code = h6mxzAEsJMDhqXO1XoFvZWTnp5thp2 BsdHBncGF 3371) lATefeNJhkcUqlz71lVT8xF45NU1aKGNbZgH2IJ JxcyM5Keh8XTBmIKGzvEUnL553j7cum8avbsZly NY3tAuzPHPbMCLhSSerJFOdEeJyDMLyVk2ydSMb LlxwYXJ9 SPECIAL STUDIES (test code = 3376) z1gjvKAeJUXgr4bkRXDcmKMbEiPcVzOn ZnRuYmp kkQPnZOfsvtCkGOgaw1IrE8FlLnLqEJqowxXtRH TxPtyvqtsaWXKvCDR2kwMzMWMtXFraZPIiJTdcH y8ywFJewVjxVdVmUXUdn4rsldGOjhbulNk4s1ma KKAhYcU3fREnDXxyK6wcyqMhtUFuQ3BbeBPjqQf 8a4mnAgKmFgO6kDOkVTnrJ7jrxvFdtHVwXLCgQK z3cA56CBCjvP0fjFTmSJtlliLlLsP6VVepEHWtG nS2XOIqtBNwLBKbY1roUFNmNUwyYMShCVtwlANz FGK6nJpbm5M0cETtoOCpqKzzMmEjZwWgZyMDd4O yMWx3lUrlY4MlHGSjIdZ8pGGdDPEzLXvgNRHoJW MxvjS3sKoitzTxd54biBQlPDXyHPUlZbEnkEsuY PQjHTARx8IxbVkdLRG0tEp8wEgdCieuHDR7Ili1 TO5rdw46ydj1gDfnRNAgtxscYxI2VEbnYNUrvya pWYe7IXxdLULpgVO9EBLxgSIcF2DkKBApMW8uou e9HSQ2SDmwJWWbRoS6QSYwoBVwWSCbiYdbJCrlz 311VXE6RmGzGN6mU4Tef2F5vT8ylPBuCGXdrGMx PyDwKCJxax7rsZFuUPily0HsHEV7mtA9kUMwwSA pWHLiND78Aypvx0XhDevph4LvI89acEF0GArim4 vrKR7rFgH7pmEhIVhmw4sfsZ0qKzQ1VNwnRH8yM B1aGZDhjC8nfwffXJBoPiLtgxbkPKRijAecqlYw Gp5ckTxtTJF3NAcxI7rkvG0nWyY9IHvzB6yyvF9 tGNi1YQizaLP0ATJawX5kXW4xludxr8inDGnrXQ ebVCUhyeI3guB3YGNvrYHaI2KpkR4mCDKmIQ1vh unze2xxECU2ZBcpQYBuGVX4BlJnDECsf7Ofjnr6 YqMtd6XcxXImJSikI96lp664XTJgxcXyU5mahOC psyebsXWuldiwNBafntO1PZCrAOJlHMglWWJwTD ZzMjJcbGFuZzEwMzNcaGljaFxmMVxkYmNoXGYxX NxbE9piYsRsG5WfDTJdXmFpQBteLYnkoUElzSPp rVQ3bK6yEN8xDVMaqSFdE2PnSJGfuuUhsLSrPFS 9uJTvwDGpWA1oVMdwaMHex4zjw2NqA6somVcwgN P3SQ8zKDPmDOYrVUpmb0YeaE2hDqtviDXbxzpxM LbcrxFtIWjpbfocJMWbKTvyX6utAyGjHJWnaHjr DOllb9JkYTGyBUHjFnoftlShMOs3fpVvLFXcdjp cBKHfqSoflZ7jPcYdCaVuDpqjEZ3rJHCwM5gugI MxBBZtZHSuX4rdPxNanU8dkRkaPEwlHqUqMyDlH gMIh704wm4uURUxlZLxwxLUtSVoxR4nXVvkLLoy KXivtPEwMAjmu3gbGLDbf2t2xLPxJDNssdNkl8w eAMxmehApSLOvxITywVUrFRWpc67gMEajhVxfuL gvSEQqx5ZwnDjek3LzHyUiDRwht4WlI14kqZLub GEvyYiyOMTuoeEwHXZac23fs0jdFPKeZiW1eKLp qPQ7fKHekCQpa1SisJbeHJLdp1dhUZIfbx3svex clIIiz0WuyI5gjnojIIucuFClhoIiJODya4l9wR LjGYKfYKWdGXskdDw0XTAog693gu9pdiW1sUPtI OW9YZahMZRoYUAzcoJeVUVmgXApuXKqOAEuBIsb XGYxXGZzMjJcbGFuZzEwMzNcaGljaFxmMVxkYmN aZQLpYQgwS9nrYmIrW8YhJNWbEtLneWClR5jlhC FyXHBsYWluXGYxXGZzMjJcbGFuZzEwMzNcaGlja JzrQQchHtRyWKMuREsgG1lnRsNhU0XsMQNfHoNo CXdhcOUratkbGDpktrPbIQgeobonEREkPHaeX9u aCmKnKHDzpUrzDQsix6DfETXpWESyIbudcpEoJO a2kpJdNRXtljgzeDHowsrkKOjrwlOpLVdcmufmK NHwONflV1ndNmMkNPFosItoQNect2GsUCZuSBVf ZscnuqVcKNdeeMAeb1ehc7OfQ5epdWjwdBL5FGJ uZ5cknCVakTZ6JKI2pN7rNBrxccGfSRAtl1FhXQ IoRJBoRyZ5bP9dSPZ8OeTRwKfnPFTuRFusIAWkK GZzMjJcbGFuZzEwMzNcaGljaFxmMVxkYmNoXGYx WSqhG1pzXbTbR4YgKHQwZaYxkLwfBUabWRv6Ogz ipBBznfcgJZatzbUePQzlsiylQRBkJViiY8nxWz GzFHQtxEepAYemo7LbJUAmZNSrDmxnikKqMXMwS YXukXOenXFMUS95VNLgMGSrgMkiyZ8kwWDDTGIg ltP5b1Z9HHthNVVvLWx9WOvahlWdAGZhgQ2mWUJ sLF4zOMz7kpUfNOExu6MoAY5kGNItbDOwAPH3KG Rsr4QvP4Ktp4VhWAOsKVVyde4cwiYkBvYGiVZzL ATkte67ISXaVO2xT3brSHDpNLOgcmQzwVLaf1Ke JBBdwOB7hFAoEP3IQbCLg42eYHYaADITwlHaCLJ jmTuxvNT7qiR7eM2rUpCLwQJaBwRETLxxasYwOP Vqqf1jswRsOJRhWSAfi6BogKWnhQJignClZ8Vpw 3ZfWDZekw41DAfnfNHaav75QJ0gL7Jfi1MkrA1q OWnpQLWdg8GkqACvtSZhREJzq6VvL0guwwoxBUp alIGxyK8gAFBlDTd3IRFxo9SxYKQbw5CzBuIhuz ZhWROzRKEgPVQbdX74VDW3bJurkOmrcgMoIN1hY JWntvImAGSnPHVkxQ6aKFvlmzVnACJwbrU6f8J9 OKtqIMUsidKtLrjwRVM0veFjsbH8uEAyV5eyjow qCBjyEMHig7WrzJ5mpJLJbMTnf6VmfGAxqYHEcV OcDA2ohpMxWF8yONQ4AVgeIUUOGHBsXRwrGKNeL RW8YVnjZtklYZO0gmPpKZWpn0ElMWkjV7mcN45b fLhqnPf7kGBmnRukxNXctBIiFWEqeuR4l3I3DQR cn1HqvidvXUBsQQgfLKXlGRDeMuWxiFGtWyPwUe WklVpidSicKeflVxHuOCOiGWrmO8wtIrDdVzKnX hluMRB2qH== Gross assessment was performed at (test [facility] enter, code = 2777) Department of Pathology, [address] [place] [id number], Technical component was performed at [facility] er, (test code = 2778) Department of Pathology, [address] [place] [id number], Professional component was performed at [facility] enter, (test code = 2779) Department of Pathology, [address] [place] [id number], [facility] [id number] 14:16:00Surgical Pathology Report Case: [id number] Authorizing Provider: Mack Mckoy, Collected: 07/25/2020 12:37 PM OrderingLocation: [address] [address] Received: 07/25/2020 03:25 PM Service Pathologist: Zaida Newsome MD Specimens: A) - Duodenum, random biopsy B) - Biopsy, Gastric, random biopsy A. DUODENUM , BIOPSY- GASTRIC METAPLASIA WITH REACTIVE CHANGES (SEE COMMENT)- MILD VILLOUS BLUNTING- DYSPLASIA OR MALIGNANCY NOT SEENB. STOMACH, RANDOM BIOPSY- CHRONIC INACTIVE GASTRITIS, MINIMAL-MILD- NO INTESTI NAL METAPLASIA, DYSPLASIA OR CARCINOMA IDENTIIFIED- NO HELICOBACTER PYLORI LIKE ORGANISMS IDENTIFIED ON WARTHIN STARRY STAIN Signing Pathologist Direct Phone Line: [phone] signed by Zaida Newsome MD on 07/30/2020 at 2:16 PMIncreased intraepithelial lymphocytes, luminal parasites, aggregates of foamy macrophages in lamina propria, dysplasia or malignancy are not seen. Gastric metaplasia and reactive changes and mild villous blunting is seen and may be from peptic duodenitis or mucosal injury. Clinical correlation is recommended.[id number] x 2, [id number]. DuodenumB. GastricA. Received in formalin labeled the patient's name, accession number and "duodenum" are 2 pinedo-pink tissue fragments measuring up to 0.2 cm in greatest dimension which are filtered and submitted in toto in A1.B. Received in formalin labeled the patient's name, accession number and "gastric biopsy" are 3 pinedo-pink tissue fragments measuring up to 0.3 cm in greatest dimension which are filtered and lynn bmitted in toto in B1.CARLA Weaver, HT (ASCP)Performed.The interpretation of this case included the use of immunohistochemistry or special stains.Control Slides Examined: In-house known positive controls were evaluated along with the test tissue. These control slides run alongside of the patients sample show appropriate staining. Internal positive and negative controls when available are evaluated Immunohistochemistry technical testing was performed at [facility], Pathology Laboratory where it was developed and its performance characteristics were determined. It has not been cleared or approved by the U.S. Food and Drug Administration. The FDA has determined that such clearance or approval is not necessary. The test is used for clinical purposes. It should not be regarded as investigational or for research. This laboratory is certified under the Clinical LaboratoryImprovement Amendments of 1988 (CLIA-88) as qualified to perform high complexity clinical laboratorytesting.[facility], Department of Pathology, [address] [place] [address], [facility], [address] [place] [address], [facility], Department of [facility], [address] [place] [address], [place] Leuko-Red [id number] 23:54:00 Test Item Value Reference Range Interpretation Comments CROSSMATCH (test code = 2264) COMPATIBLE Unit ABO (test code = O Pos 3232327) UNIT NUMBER (test code = [id number] 934-0) Status (test code = 0263547) TX_TIMEINCHART Blood Bank Product (test code RED BLOOD CELLS = 2263) PRODUCT CODE (test code = [id number] 933-2) [facility] CenterHE[facility] [id number] 19:30:00Miriam Jenkins RN 07/25/2020 7:30 PMLab Results Component Value Date WBC 6.1 07/25/2020 HGB9.0 (L) 07/25/2020 HCT 28.2 (L) 07/25/2020 MCV 90.1 07/25/2020 PLT 250 07/25/2020 Lab Results Component Value Date GLUCOSE 94 07/25/2020 CALCIUM 8.6 07/25/2020 NA 138 07/25/2020 K 4.7 07/25/2020 CO2 22 07/25/2020 CL 100 07/25/2020 BUN 66 (H) 07/25/2020 CREATININE 11.75 (H) 07/25/2020 Resul ts for ASHIA ANDREA ( ) as of 07/25/2020 16:04 Ref. Range 07/25/2020 03:47 HBsAg Screen Latest Ref Range: Nonreactive Nonreactive HD treatment completed. UF -3L. Accessed through right arm graft. VS remained stable. Report given to primary RN. Miriam Jenkins [facility] B surface [id number] 06:06:00 Test Item Value Reference Range Interpretation Comments HBsAg Screen (test code Nonreactive Nonreactive = 5195-3) AJ (test code = AJ) Specimen is considered negative for HBsAg. Lab Interpretation (test Normal code = 36319-1) [facility] B SURFACE [id number] 06:06:00 Test Item Value Reference Range Interpretation Comments HEPATITIS B SURFACE ANTIGEN (2) Nonreactive Nonreactive (BEAKER) (test code = 2585) Specimen is considered negative for HBsAg.Basic Metabolic [id number] 05:21:00 Test Item Value Reference Range Interpretation Comments Sodium (test code = 138 meq/L 491-944 3819-2) Potassium (test code = 4.7 meq/L 3.5-5.1 2823-3) Chloride (test code = 100 meq/L 98-107 5-0) CO2 (test code = 22 meq/L 22-29 2027-9) BUN (test code = 66 mg/dL 7-21 H 3094-0) Creatinine (test code 11.75 mg/dL 0.57-1.25 H = 2160-0) Glucose (test code = 94 mg/dL 70-105 2345-7) Calcium (test code = 8.6 mg/dL 8.4-10.2 64146-7) EGFR (test code = 5 mL/min/1.73 [place] [address]-3) NOT ACCURATE CREATININE CLEARANCE IN PREDICTING GLOMERULAR FILTRATION RATE . ESTIMATED GFR I S NOT APPLICABLE FOR DIALYSIS PATIENTS. AJ (test code = AJ) Acrylic Fabricator ID - MERARI L Lab Interpretation Abnormal (test code = 64953-1) [facility] METABOLIC [id number] 05:21:00 Test Item Value Reference Range Interpretation Comments SODIUM (BEAKER) 138 meq/L 136-145 (test code = 381) POTASSIUM (BEAKER) 4.7 meq/L 3.5-5.1 (test code = 379) CHLORIDE (BEAKER) 100 meq/L 98-107 (test code = 382) CO2 (BEAKER) (test 22 meq/L 22-29 code = 355) BLOOD UREA NITROGEN 66 mg/dL 7-21 H (BEAKER) (test code = 354) CREATININE (BEAKER) 11.75 mg/dL 0.57-1.25 H (test code = 358) GLUCOSE RANDOM 94 mg/dL 70-105 (BEAKER) (test code = 652) CALCIUM (BEAKER) 8.6 mg/dL 8.4-10.2 (test code = 697) EGFR (BEAKER) (test 5 mL/min/1.73 ESTIMAT ED GFR IS code = 1092) sq m NOT ACCURATE CREATININE CLEARANCE IN PREDICTING GLOMERULAR FILTRATION RATE . ESTIMATED GFR I S NOT APPLICABLE FOR DIALYSIS PATIEN TS. Acrylic Fabricator ID - MERARI LCBC with platelet count + automated [id number] 04:30:00 Test Item Value Reference Range Interpretation Comments WBC (test code = 6690-2) 6.1 See_Comment [A utomated message] The system [employer] generated this result transmitted ref erence range: 3.5 - 10 .5 K/L. The refe rence range was not u sed to interpret this result as normal/abnor mal. RBC (test code = 789-8) 3.13 See_Comment L [Au tomated message] The system [employer] generated this result transmitted ref erence range: 4.63 - 6 .08 M/L. The refe rence range was not u sed to interpret this result as normal/abnor mal. MCHC (test code = 786-4) 31.9 See_Comment L [A utomated message] The system [employer] generated this result transmitted ref erence range: 32.3 - 3 6.5 GM/DL. The refe rence range was not u sed to interpret this result as normal/abnor mal. Hematocrit (test code = 28.2 % 40.1-51 L 4544-3) MCV (test code = 787-2) 90.1 fL 79-92.2 MCH (test code = 785-6) 28.8 pg 25.7-32.2 RDW (test code = 788-0) 15.3 % 11.6-14.4 H Platelets (test code = 250 See_Comment [Aut omated message] 777-3) The system [employer] generated this result transmitted ref erence range: 150 - 45 0 K/CU MM. The referen ce range was not u sed to interpret this result as normal/abnor mal. MPV (test code = 11.1 fL 9.4-12.4 71588-6) nRBC (test code = 413) 0 See_Comment [Aut omated message] The system [employer] generated this result transmitted ref erence range: 0 - 0 /1 00 WBC. The refere nce range was not u sed to interpret this result as normal/abnor mal. % Neutros (test code = 69 % 429) % Lymphs (test code = 13 % 430) % Monos (test code = 15 % 431) % Eos (test code = 432) 3 % % Baso (test code = 437) 1 % # Neutros (test code = 4.17 See_Comment [Aut omated message] 670) The system [employer] generated this result transmitted ref erence range: 1.78 - 5 .38 K/L. The refe rence range was not u sed to interpret this result as normal/abnor mal. # Lymphs (test code = 0.79 See_Comment L [Auto mated message] 414) The system [employer] generated this result transmitted ref erence range: 1.32 - 3 .57 K/L. The refe rence range was not u sed to interpret this result as normal/abnor mal. # Monos (test code = 0.91 See_Comment H [Autom ated message] 415) The system [employer] generated this result transmitted ref erence range: 0.30 - 0 .82 K/L. The refe rence range was not u sed to interpret this result as normal/abnor mal. # Eos (test code = 416) 0.15 See_Comment [Au tomated message] The system [employer] generated this result transmitted ref erence range: 0.04 - 0 .54 K/L. The refe rence range was not u sed to interpret this result as normal/abnor mal. # Baso (test code = 417) 0.03 See_Comment [A utomated message] The system [employer] generated this result transmitted ref erence range: 0.01 - 0 .08 K/L. The refe rence range was not u sed to interpret this result as normal/abnor mal. Immature 0 % 0-1 Granulocytes-Relative (test code = 2801) Lab Interpretation (test Abnormal code = 54638-5) [facility] W/PLT COUNT & AUTO [id number] 04:30:00 Test Item Value Reference Range Interpretation Comments WHITE BLOOD CELL COUNT (BEAKER) 6.1 K/ L 3.5-10.5 (test code = 775) RED BLOOD CELL COUNT (BEAKER) 3.13 M/ L 4.63-6.08 L (test code = 761) HEMOGLOBIN (BEAKER) (test code = 9.0 GM/DL 13.7-17.5 L 410) HEMATOCRIT (BEAKER) (test code = 28.2 % 40.1-51.0 L 411) MEAN CORPUSCULAR VOLUME (BEAKER) 90.1 fL 79.0-92.2 (test code = 753) MEAN CORPUSCULAR HEMOGLOBIN 28.8 pg 25.7-32.2 (BEAKER) (test code = 751) MEAN CORPUSCULAR HEMOGLOBIN CONC 31.9 GM/DL 32.3-36.5 L (BEAKER) (test code = 752) RED CELL DISTRIBUTION WIDTH 15.3 % 11.6-14.4 H (BEAKER) (test code = 412) PLATELET COUNT (BEAKER) (test 250 K/CU MM 150-450 code = 756) MEAN PLATELET VOLUME (BEAKER) 11.1 fL 9.4-12.4 (test code = 754) NUCLEATED RED BLOOD CELLS 0 /100 WBC 0-0 (BEAKER) (test code = 413) NEUTROPHILS RELATIVE PERCENT 69 % (BEAKER) (test code = 429) LYMPHOCYTES RELATIVE PERCENT 13 % (BEAKER) (test code = 430) MONOCYTES RELATIVE PERCENT 15 % (BEAKER) (test code = 431) EOSINOPHILS RELATIVE PERCENT 3 % (BEAKER) (test code = 432) BASOPHILS RELATIVE PERCENT 1 % (BEAKER) (test code = 437) NEUTROPHILS ABSOLUTE COUNT 4.17 K/ L 1.78-5.38 (BEAKER) (test code = 670) LYMPHOCYTES ABSOLUTE COUNT 0.79 K/ L 1.32-3.57 L (BEAKER) (test code = 414) MONOCYTES ABSOLUTE COUNT (BEAKER) 0.91 K/ L 0.30-0.82 H (test code = 415) EOSINOPHILS ABSOLUTE COUNT 0.15 K/ L 0.04-0.54 (BEAKER) (test code = 416) BASOPHILS ABSOLUTE COUNT (BEAKER) 0.03 K/ L 0.01-0.08 (test code = 417) IMMATURE GRANULOCYTES-RELATIVE 0 % 0-1 PERCENT (BEAKER) (test code = 2801) Hepatic function [id number] 08:03:00 Test Item Value Reference Range Interpretation Comments Protein, Total (test 6.4 See_Comment [Autom ated code = 2885-2) message] The system which generated this result transmit alexandra reference range : 6.0 - 8.3 gm/dL . The reference range was not u sed to interpret th is result as normal/abnormal . Albumin (test code = 3.2 g/dL 3.5-5 L 11347-4) Total Bilirubin (test 0.4 mg/dL 0.2-1.2 code = 1974-2) Bilirubin, Direct 0.2 mg/dL 0.1-0.5 (test code = 1967-7) Alkaline Phosphatase 42 U/L 40-150 (test code = 6768-6) AST (test code = 13 U/L 5-34 1920-8) ALT (test code = 19 U/L 6-55 1742-6) AJ (test code = AJ) Acrylic Fabricator ID - MERARI L Lab Interpretation Abnormal (test code = 38962-6) [facility] 08:03:00 Test Item Value Reference Range Interpretation Comments Magnesium (test code = 2.2 mg/dL 1.6-2.6 19321-3) AJ (test code = AJ) Acrylic Fabricator ID - MERARI L Lab Interpretation (test Normal code = 29116-7) [facility]2021-[facility] 08:03:00 Test Item Value Reference Range Interpretation Comments Phosphorus (test code = 6.2 mg/dL 2.3-4.7 H 2777-1) AJ (test code = AJ) Acrylic Fabricator ID - MERARI L Lab Interpretation (test Abnormal code = 26417-6) [facility]UM2021-03-18 08:03:00 Test Item Value Reference Range Interpretation Comments MAGNESIUM (BEAKER) (test code = 2.2 mg/dL 1.6-2.6 627) Acrylic Fabricator ID - MERARI [id number] 08:03:00 Test Item Value Reference Range Interpretation Comments PHOSPHORUS (BEAKER) (test code = 6.2 mg/dL 2.3-4.7 H 604) Acrylic Fabricator ID - MERARI LHEPATIC FUNCTION [id number] 08:03:00 Test Item Value Reference Range Interpretation Comments TOTAL PROTEIN (BEAKER) (test code = 6.4 gm/dL 6.0-8.3 770) ALBUMIN (BEAKER) (test code = 1145) 3.2 g/dL 3.5-5.0 L BILIRUBIN TOTAL (BEAKER) (test code 0.4 mg/dL 0.2-1.2 = 377) BILIRUBIN DIRECT (BEAKER) (test 0.2 mg/dL 0.1-0.5 code = 706) ALKALINE PHOSPHATASE (BEAKER) (test 42 U/L 40-150 code = 346) AST (SGOT) (BEAKER) (test code = 13 U/L 5-34 353) ALT (SGPT) (BEAKER) (test code = 19 U/L 6-55 347) Acrylic Fabricator ID - MERARI LBASIC METABOLIC [id number] 08:03:00 Test Item Value Reference Range Interpretation Comments SODIUM (BEAKER) 137 meq/L 136-145 (test code = 381) POTASSIUM (BEAKER) 4.3 meq/L 3.5-5.1 (test code = 379) CHLORIDE (BEAKER) 101 meq/L 98-107 (test code = 382) CO2 (BEAKER) (test 22 meq/L 22-29 code = 355) BLOOD UREA NITROGEN 55 mg/dL 7-21 H (BEAKER) (test code = 354) CREATININE (BEAKER) 9.93 mg/dL 0.57-1.25 H (test code = 358) GLUCOSE RANDOM 91 mg/dL 70-105 (BEAKER) (test code = 652) CALCIUM (BEAKER) 8.2 mg/dL 8.4-10.2 L (test code = 697) EGFR (BEAKER) (test 6 mL/min/1.73 ESTIMAT ED GFR IS code = 1092) sq m NOT ACCURATE CREATININE CLEARANCE IN PREDICTING GLOMERULAR FILTRATION RATE . ESTIMATED GFR I S NOT APPLICABLE FOR DIALYSIS PATIEN TS. Acrylic Fabricator ID - PIAYA LSARS-CoV2/RT-PCR (Asymptomatic ONLY)2020-07-24 07:27:00 Test Item Value Reference Range Interpretation Comments SARS-COV2/RT-PCR Negative Not Detected, (test code = Negative, See 51777-3) external report for linked test SARS-COV-2 [facility] PERFORMING LAB (test code = 64410-6) AJ (test code = Negative result for this AJ) test determines that SARS-CoV-2 RNA was not present in the specimen above the Limit of Detection (LOD). However, Negative results do not preclude SARS-CoV-2 infection and should not be used as the sole basis for treatment or patient management decisions. Negative results must be combined with clinical observations, patient history, and epidemiological information. A false negative result may occur if a specimen is improperly collected, transported or handled. A false negative result should be considered if patient's recent exposures or clinical presentation indicate that COVID-19 (SARS-CoV-2) is likely and diagnostic tests for other causes of illness are negative. Re-testing should be considered in cases of suspected false negatives. The limit of detection for this assay is 800 copies/mL. This SARS CoV-2 test is a real-time RT-PCR test intended for the qualitative detection of nucleic acid from SARS-CoV-2 in a nasopharyngeal swab specimen collected from individuals suspected of COVID-19 by their healthcare provider. This test has not been Food and Drug Administration (FDA) cleared or approved. This is a modified version of an approved Emergency Use Authorization (EUA) and is in the process of review by the FDA. Once authorized by the FDA, the issued EUA will be effective until the declaration that circumstances exist justifying the authorization of the emergency use of in vitro diagnostic tests for detection and/or diagnosis of COVID-19 is terminated under Section 564(b)(2) of the Act or the EUA is revoked under Section 564(g) of the Act. Fact Sheet for Healthcare Providers:https://www.[employer]/sites/default/f aba/product/documents/F act_Sheet_HC_Providers_L oal_SXAU-KfU-2.pdf Fact Sheet for Healthcare Patients:https://www.[employer]/sites/default/fi les/product/documents/Fa ct_Sheet_Patients_Lyra_S ARS-CoV-2.pdf Performing Laboratory:[address] [place] [address] [facility])2020-07-24 07:27:00 Test Item Value Reference Range Interpretation Comments SARS-COV2/RT-PCR (test Negative Not Detected, Negative, code = 1418161) See external report for linked test SARS-COV-2 PERFORMING LAB [facility] (test code = 6292539) Negative result for this test determines that SARS-CoV-2 RNA was not present in the specimen above the Limit of Detection (LOD). However, Negative results do not preclude SARS-CoV-2 infection and should not be used as the sole basis for treatment or patient management decisions. Negative results mustbe combined with clinical observations, patient history, and epidemiological information. A false negative result may occur if a specimen is improperly collected, transported or handled. A false negative result should be considered if patient's recent exposures or clinical presentation indicate that COVID-19 (SARS-CoV-2) is likely and diagnostic tests for other causes of illness are negative. Re-testing should be considered in cases of suspected false negatives.The limit of detection for this assay is 800 copies/mL.This SARS CoV-2 test is a real-time RT-PCR test intended for the qualitative detection of nucleic acid from SARS-CoV-2 in a nasopharyngeal swab specimen collected from individuals susp ected of COVID-19 by their healthcare provider.This test has not been Food and Drug Administration (FDA) cleared or approved. This is a modified version of an approved Emergency Use Authorization (EUA) and is in the process of review by the FDA. Once authorized by the FDA, the issued EUA will be effective until the declaration that circumstances exist justifying the authorization of the emergency use of in vitro diagnostic tests for detection and/or diagnosis of COVID-19 is terminated under Section 564(b)(2) of the Act or the EUA is revoked under Section 564(g) of the Act.Fact Sheet for Healthcare Providers:https://www.[employer]/sites/default/files/product/documents/Fact_Shee n_CS_Htitioxzm_Bnmx_YOBT-PeB-3.pdfFact Sheet for Healthcare Patients:https://www.[employer]/sites/default/files/product/ documents/Hmyl_Zpxuh_Qwhdwhfx_Inxu_MMYM-HqY-6.pdfPerforming Laboratory:[facility] [place] [address].[place], [place] [address]FPG W/PLT COUNT & AUTO [id number] 06:56:00 Test Item Value Reference Range Interpretation Comments WHITE BLOOD CELL COUNT (BEAKER) 6.0 K/ L 3.5-10.5 (test code = 775) RED BLOOD CELL COUNT (BEAKER) 2.99 M/ L 4.63-6.08 L (test code = 761) HEMOGLOBIN (BEAKER) (test code = 8.5 GM/DL 13.7-17.5 L 410) HEMATOCRIT (BEAKER) (test code = 27.3 % 40.1-51.0 L 411) MEAN CORPUSCULAR VOLUME (BEAKER) 91.3 fL 79.0-92.2 (test code = 753) MEAN CORPUSCULAR HEMOGLOBIN 28.4 pg 25.7-32.2 (BEAKER) (test code = 751) MEAN CORPUSCULAR HEMOGLOBIN CONC 31.1 GM/DL 32.3-36.5 L (BEAKER) (test code = 752) RED CELL DISTRIBUTION WIDTH 15.4 % 11.6-14.4 H (BEAKER) (test code = 412) PLATELET COUNT (BEAKER) (test 223 K/CU MM 150-450 code = 756) MEAN PLATELET VOLUME (BEAKER) 11.4 fL 9.4-12.4 (test code = 754) NUCLEATED RED BLOOD CELLS 0 /100 WBC 0-0 (BEAKER) (test code = 413) NEUTROPHILS RELATIVE PERCENT 66 % (BEAKER) (test code = 429) LYMPHOCYTES RELATIVE PERCENT 15 % (BEAKER) (test code = 430) MONOCYTES RELATIVE PERCENT 17 % (BEAKER) (test code = 431) EOSINOPHILS RELATIVE PERCENT 2 % (BEAKER) (test code = 432) BASOPHILS RELATIVE PERCENT 1 % (BEAKER) (test code = 437) NEUTROPHILS ABSOLUTE COUNT 3.94 K/ L 1.78-5.38 (BEAKER) (test code = 670) LYMPHOCYTES ABSOLUTE COUNT 0.87 K/ L 1.32-3.57 L (BEAKER) (test code = 414) MONOCYTES ABSOLUTE COUNT (BEAKER) 1.02 K/ L 0.30-0.82 H (test code = 415) EOSINOPHILS ABSOLUTE COUNT 0.13 K/ L 0.04-0.54 (BEAKER) (test code = 416) BASOPHILS ABSOLUTE COUNT (BEAKER) 0.03 K/ L 0.01-0.08 (test code = 417) IMMATURE GRANULOCYTES-RELATIVE 0 % 0-1 PERCENT (BEAKER) (test code = 2801) [id number] 04:39:00 Test Item Value Reference Range Interpretation Comments Ferritin (test code = 545.58 ng/mL 5-275 H 2276-4) AJ (test code = AJ) Acrylic Fabricator ID - TAVIA M Lab Interpretation (test Abnormal code = 12278-3) [facility] Center[facility]itamin B12 and [id number] 04:39:00 Test Item Value Reference Range Interpretation Comments Vitamin B12 (test 1058 pg/mL 213-816 H code = 2132-9) Folate (test code = 6.60 ng/mL See_Comment L [Automa alexandra 2284-8) message] The system which generated this result transmit alexandra reference range : >=7.00. The reference range was not used to interpret this result as normal/abnormal . AJ (test code = AJ) Acrylic Fabricator ID - TAVIA M Lab Interpretation Abnormal (test code = 75469-4) [facility] CenterFERRITIN2021-03-18 04:39:00 Test Item Value Reference Range Interpretation Comments FERRITIN (BEAKER) (test code = 545.58 ng/mL 5.00-275.00 H 361) Acrylic Fabricator ID - TAVIA MVITAMIN B12 AND [id number] 04:39:00 Test Item Value Reference Range Interpretation Comments VITAMIN B12 (BEAKER) 1058 pg/mL 213-816 H (test code = 774) FOLATE (BEAKER) 6.60 ng/mL See_Comment L [Automated message] (test code = 362) The system which generated this result transmitted ref erence range: >=7.00. The reference range was not used to interpr et this result as normal/abnormal . Acrylic Fabricator ID - TAVIA MPERIPHERAL BLOOD SMEAR - HOLD [id number] 02:10:00 Test Item Value Reference Range Interpretation Comments PERIPHERAL SMEAR SAVE (BEAKER) (test Yes. code = 1815) Peripheral Blood Smear - Hold [id number] 02:10:00Peripheral Smear SaveComment: Yes.[facility] HospitalType and screen, [id number] 23:20:00 Test Item Value Reference Range Interpretation Comments ABO/RH AUTOMATED (BEAKER) (test B POSITIVE code = 2260) Ab Scrn (test code = 890-4) NEGATIVE [facility] Center[facility]aptoglobin2021-[facility] 22:30:00 Test Item Value Reference Range Interpretation Comments Haptoglobin (test code = 155 mg/dL 14-258 4542-7) AJ (test code = AJ) Acrylic Fabricator ID - KIRIT Lab Interpretation (test Normal code = 69819-3) [facility] CenterIron, TIBC, % sat. (without ferritin)2020-07-23 22:30:00 Test Item Value Reference Range Interpretation Comments Iron (test code = 2498-4) 43.0 ug/dL 40-160 TIBC (test code = 2500-7) 208 ug/dL 250-450 L Iron % Saturation (test code 21 % 20-55 = 2502-3) AJ (test code = AJ) Acrylic Fabricator ID - BS Lab Interpretation (test Abnormal code = 79492-5) [facility] CenterHAPTOGLOBIN2021-03-17 22:30:00 Test Item Value Reference Range Interpretation Comments HAPTOGLOBIN (BEAKER) (test code = 155 mg/dL 14-258 366) Acrylic Fabricator ID - BSIRON, TIBC, % SAT. (WITHOUT FERRITIN)2020-07-23 22:30:00 Test Item Value Reference Range Interpretation Comments IRON (BEAKER) (test code = 547) 43.0 ug/dL 40.0-160.0 TOTAL IRON BINDING CAPACITY 208 ug/dL 250-450 L (BEAKER) (test code = 769) IRON % SATURATION (2) (BEAKER) 21 % 20-55 (test code = 2590) Acrylic Fabricator ID - BSComprehensive metabolic [id number] 22:29:00 Test Item Value Reference Range Interpretation Comments Protein, Total (test 6.4 See_Comment [Autom ated code = 2885-2) message] The system which generated this result transmit alexandra reference range : 6.0 - 8.3 gm/dL . The reference range was not u sed to interpret th is result as normal/abnormal . Albumin (test code = 3.3 g/dL 3.5-5 L 93762-9) Alkaline Phosphatase 43 U/L 40-150 (test code = 6768-6) Total Bilirubin (test 0.4 mg/dL 0.2-1.2 code = 1974-2) Sodium (test code = 138 meq/L 899-145 6655-2) Potassium (test code 4.2 meq/L 3.5-5.1 = 2823-3) Chloride (test code = 99 meq/L 98-107 2074-0) CO2 (test code = 25 meq/L -2028-01) BUN (test code = 53 mg/dL 7-21 H 3094-0) Creatinine (test code 9.53 mg/dL 0.57-1.25 H = 2160-0) Glucose (test code = 93 mg/dL 70-105 5-7) Calcium (test code = 8.4 mg/dL 8.4-10.2 05143-2) AST (test code = 11 U/L 5-34 1920-8) ALT (test code = 19 U/L 6-55 1742-6) EGFR (test code = 7 mL/min/1.73 [place] [address]-2) NOT ACCURATE CREATININE CLEARANCE IN PREDICTING GLOMERULAR FILTRATION RATE . ESTIMATED GFR I S NOT APPLICABLE FOR DIALYSIS PATIEN TS. AJ (test code = AJ) Acrylic Fabricator ID - BS Lab Interpretation Abnormal (test code = 23017-0) [facility]2020-07-23 22:29:00 Test Item Value Reference Range Interpretation Comments LDH (test code = 2532-0) 193 U/L 125-220 AJ (test code = AJ) Acrylic Fabricator ID - BS Lab Interpretation (test Normal code = 77859-9) [facility]2021-[facility]-17 22:29:00 Test Item Value Reference Range Interpretation Comments MAGNESIUM (BEAKER) (test code = 2.2 mg/dL 1.6-2.6 627) Acrylic Fabricator ID - BSLACTATE DEHYDROGENASE (LDH)2020-07-23 22:29:00 Test Item Value Reference Range Interpretation Comments LACTATE DEHYDROGENASE (BEAKER) (test 193 U/L 125-220 code = 635) Acrylic Fabricator ID - BSCOMPREHENSIVE METABOLIC [id number] 22:29:00 Test Item Value Reference Range Interpretation Comments TOTAL PROTEIN 6.4 gm/dL 6.0-8.3 (BEAKER) (test code = 770) ALBUMIN (BEAKER) 3.3 g/dL 3.5-5.0 L (test code = 1145) ALKALINE PHOSPHATASE 43 U/L 40-150 (BEAKER) (test code = 346) BILIRUBIN TOTAL 0.4 mg/dL 0.2-1.2 (BEAKER) (test code = 377) SODIUM (BEAKER) (test 138 meq/L 136-145 code = 381) POTASSIUM (BEAKER) 4.2 meq/L 3.5-5.1 (test code = 379) CHLORIDE (BEAKER) 99 meq/L 98-107 (test code = 382) CO2 (BEAKER) (test 25 meq/L 22-29 code = 355) BLOOD UREA NITROGEN 53 mg/dL 7-21 H (BEAKER) (test code = 354) CREATININE (BEAKER) 9.53 mg/dL 0.57-1.25 H (test code = 358) GLUCOSE RANDOM 93 mg/dL 70-105 (BEAKER) (test code = 652) CALCIUM (BEAKER) 8.4 mg/dL 8.4-10.2 (test code = 697) AST (SGOT) (BEAKER) 11 U/L 5-34 (test code = 353) ALT (SGPT) (BEAKER) 19 U/L 6-55 (test code = 347) EGFR (BEAKER) (test 7 mL/min/1.73 ESTIMAT ED GFR IS code = 1092) sq m NOT ACCURATE CREATININE CLEARANCE IN PREDICTING GLOMERULAR FILTRATION RATE . ESTIMATED GFR I S NOT APPLICABLE FOR DIALYSIS PATIEN TS. Acrylic Fabricator ID - BSReticulocyte [id number] 22:16:00 Test Item Value Reference Range Interpretation Comments % Retic (test code = 1.8 % 0.5-1.8 78012-3) AJ (test code = AJ) Acrylic Fabricator ID - [id number] Lab Interpretation (test Normal code = 41247-9) [facility] CenterRETICULOCYTE [id number] 22:16:00 Test Item Value Reference Range Interpretation Comments RETICULOCYTE COUNT PCT (BEAKER) (test 1.8 % 0.5-1.8 code = 575) Acrylic Fabricator ID - [id number] W/PLT COUNT & AUTO [id number] 22:16:00 Test Item Value Reference Range Interpretation Comments WHITE BLOOD CELL COUNT (BEAKER) 5.2 K/ L 3.5-10.5 (test code = 775) RED BLOOD CELL COUNT (BEAKER) 2.79 M/ L 4.63-6.08 L (test code = 761) HEMOGLOBIN (BEAKER) (test code = 8.0 GM/DL 13.7-17.5 L 410) HEMATOCRIT (BEAKER) (test code = 25.4 % 40.1-51.0 L 411) MEAN CORPUSCULAR VOLUME (BEAKER) 91.0 fL 79.0-92.2 (test code = 753) MEAN CORPUSCULAR HEMOGLOBIN 28.7 pg 25.7-32.2 (BEAKER) (test code = 751) MEAN CORPUSCULAR HEMOGLOBIN CONC 31.5 GM/DL 32.3-36.5 L (BEAKER) (test code = 752) RED CELL DISTRIBUTION WIDTH 15.3 % 11.6-14.4 H (BEAKER) (test code = 412) PLATELET COUNT (BEAKER) (test 229 K/CU MM 150-450 code = 756) MEAN PLATELET VOLUME (BEAKER) 11.0 fL 9.4-12.4 (test code = 754) NUCLEATED RED BLOOD CELLS 0 /100 WBC 0-0 (BEAKER) (test code = 413) NEUTROPHILS RELATIVE PERCENT 69 % (BEAKER) (test code = 429) LYMPHOCYTES RELATIVE PERCENT 13 % (BEAKER) (test code = 430) MONOCYTES RELATIVE PERCENT 15 % (BEAKER) (test code = 431) EOSINOPHILS RELATIVE PERCENT 2 % (BEAKER) (test code = 432) BASOPHILS RELATIVE PERCENT 0 % (BEAKER) (test code = 437) NEUTROPHILS ABSOLUTE COUNT 3.62 K/ L 1.78-5.38 (BEAKER) (test code = 670) LYMPHOCYTES ABSOLUTE COUNT 0.67 K/ L 1.32-3.57 L (BEAKER) (test code = 414) MONOCYTES ABSOLUTE COUNT (BEAKER) 0.78 K/ L 0.30-0.82 (test code = 415) EOSINOPHILS ABSOLUTE COUNT 0.12 K/ L 0.04-0.54 (BEAKER) (test code = 416) BASOPHILS ABSOLUTE COUNT (BEAKER) 0.02 K/ L 0.01-0.08 (test code = 417) IMMATURE GRANULOCYTES-RELATIVE 0 % 0-1 PERCENT (BEAKER) (test code = 2801) CT, CHEST, WITHOUT IV [id number] 08:39:00FINAL REPORT CT of the chest, abdomen and pelvis, without contrast 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 This exam was performed according to our departmental dose optimization program which includes automated exposure control, adjustment of the mA and/or kV according to patient's size and/or use of iterative reconstructive technique. Comparison Film: April 11, 2018, July 17, 2016, April 21, 2016 Discussion: No supraclavicular, axillary, internal mammary lymphadenopathy. A few mildly enlarged mediastinal lymph nodes are without interval change. A right peritracheal lymph node, for example, measures 1.2 cm in short axis. Heart is enlarged. There is a small pericardial effusion. There are trace bilateral pleural effusions. Patchy groundglass opacities are present in both lungs, primarily in peripheral distribution. Mild atelectasis is also present in both lower lobes. Central airways are patent,no significant bronchiectasis, or bronchial wall thickening. No liver lesion is identified on this noncontrast exam. No biliary ductal dilatation. Gallbladder is normal. Spleen, pancreas, adrenal glands are unremarkable. Kidneys are atrophic, each containing several cysts, the largest is located at the right lower pole, measuring 4 cm. No bowel obstruction. No abnormal bowel wall thickening is identified, although evaluation is suboptimal in the absence of IV and oral contrast. Normal appendix. In the pelvis, bladder is thick walled, as before. Prostate gland is enlarged. There is advanced vascularcalcification. No adenopathy identified in the abdomen or pelvis. No ascites. Status post ORIF of the right hemipelvis. No suspicious/destructive bony lesion is identified. Impression: Stable mildly prominent mediastinal lymph nodes. No adenopathy identified in the abdomen or pelvis. Cardiomegaly. Small pericardial effusion. Trace bilateral pleural effusions. There are small scattered foci of groundglass opacities in both lungs, worrisome for atypical infection/viral pneumonia, clinical correlation is needed. Persistent bladder wall thickening. Prostate gland is enlarged. Atrophic kidneys. 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 This exam was performed according to our departmental dose optimization program which includes automated exposure control, adjustment of the mA and/or kV according to patient's size and/or use of iterative reconstructive technique. Comparison Film: April 11, 2018, July 17, 2016, April 21, 2016 Discussion: No supraclavicular, axillary, internal mammary lymphadenopathy. A few mildly enlarged mediastinal lymph nodes are without interval change. A right peritracheal lymph node, for example, measures 1.2 cm in short axis. Heart is enlarged. There is a small pericardial effusion. There are trace bilateral pleural effusions. Patchy groundglass opacities are present in both lungs, primarily in peripheral distribution. Mild atelectasis is also present in both lower lobes. Central airways are patent,no significant bronchiectasis, or bronchial wall thickening. No liver lesion is identified on this noncontrast exam. No biliary ductal dilatation. Gallbladder is normal. Spleen, pancreas, adrenal glands are unremarkable. Kidneys are atrophic, each containing several cysts, the largest is located at the right lower pole, measuring 4 cm. No bowel obstruction. No abnormal bowel wall thickening is identified, although evaluation is suboptimal in the absence of IV and oral contrast. Normal appendix. In the pelvis, bladder is thick walled, as before. Prostate gland is enlarged. There is advanced vascularcalcification. No adenopathy identified in the abdomen or pelvis. No ascites. Status post ORIF of the right hemipelvis. No suspicious/destructive bony lesion is identified. Impression: Stable mildly prominent mediastinal lymph nodes. No adenopathy identified in the abdomen or pelvis. Cardiomegaly. Small pericardial effusion. Trace bilateral pleural effusions. There are small scattered foci of groundglass opacities in both lungs, worrisome for atypical infection/viral pneumonia, clinical correlation is needed. Persistent bladder wall thickening. Prostate gland is enlarged. Atrophic kidneys. 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 This exam was performed according to our departmental dose optimization program which includes automated exposure control, adjustment of the mA and/orkV according to patient's size and/or use of iterative reconstructive technique. Comparison Film: April 11, 2018, July 17, 2016, April 21, 2016 Discussion: No supraclavicular, axillary, internalmammary lymphadenopathy. A few mildly enlarged mediastinal lymph nodes are without interval change. A right peritracheal lymph node, for example, measures 1.2 cm in short axis. Heart is enlarged. Thereis a small pericardial effusion. There are trace bilateral pleural effusions. Patchy groundglass opacities are present in both lungs, primarily in peripheral distribution. Mild atelectasis is also present in both lower lobes. Central airways are patent, no significant bronchiectasis, or bronchial wallthickening. No liver lesion is identified on this noncontrast exam. No biliary ductal dilatation. Gallbladder is normal. Spleen, pancreas, adrenal glands are unremarkable. Kidneys are atrophic, each containing several cysts, the largest is located at the right lower pole, measuring 4 cm. No bowel obstruction. No abnormal bowel wall thickening is identified, although evaluation is suboptimal in the absence of IV and oral contrast. Normal appendix. In the pelvis, bladder is thick walled, as before. Prostate gland is enlarged. There is advanced vascular calcification. No adenopathy identified in the abdomen or pelvis. No ascites. Status post ORIF of the right hemipelvis. No suspicious/destructive bony lesion is identified. Impression: Stable mildly prominent mediastinal lymph nodes. No adenopathy sarmad ntified in the abdomen or pelvis. Cardiomegaly. Small pericardial effusion. Trace bilateral pleural effusions. There are small scattered foci of groundglass opacities in both lungs, worrisome for atypical infection/viral pneumonia, clinical correlation is needed. Persistent bladder wall thickening. Prostate gland is enlarged. Atrophic kidneys. 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 This exam was performed according to our departmental dose optimization program which includes automated exposure control, adjustment of the mA and/orkV according to patient's size and/or use of iterative reconstructive technique. Comparison Film: April 11, 2018, July 17, 2016, April 21, 2016 Discussion: No supraclavicular, axillary, internal mammary lymphadenopathy. A few mildly enlarged mediastinal lymph nodes are without interval change. A right peritracheal lymph node, for example, measures 1.2 cm in short axis. Heart is enlarged. Thereis a small pericardial effusion. There are trace bilateral pleural effusions. Patchy groundglass opacities are present in both lungs, primarily in peripheral distribution. Mild atelectasis is also present in both lower lobes. Central airways are patent, no significant bronchiectasis, or bronchial wallthickening. No liver lesion is identified on this noncontrast exam. No biliary ductal dilatation. Gallbladder is normal. Spleen, pancreas, adrenal glands are unremarkable. Kidneys are atrophic, each containing several cysts, the largest is located at the right lower pole, measuring 4 cm. No bowel obstruction. No abnormal bowel wall thickening is identified, although evaluation is suboptimal in the absence of IV and oral contrast. Normal appendix. In the pelvis, bladder is thick walled, as before. Prostate gland is enlarged. There is advanced vascular calcification. No adenopathy identified in the abdomen or pelvis. No ascites. Status post ORIF of the right hemipelvis. No suspicious/destructive bony lesion is identified. Impression: Stable mildly prominent mediastinal lymph nodes. No adenopathy sarmad ntified in the abdomen or pelvis. Cardiomegaly. Small pericardial effusion. Trace bilateral pleural effusions. There are small scattered foci of groundglass opacities in both lungs, worrisome for atypical infection/viral pneumonia, clinical correlation is needed. Persistent bladder wall thickening. Prostate gland is enlarged. Atrophic kidneys. Signed: Raul Sanchez MDRtalitaort Verified Date/Time: 11/16/201908:39:14 Reading Location: [facility] [address] [place] [address] Consult Reading Room [facility] CenterFINE NEEDLE ASPIRATE BY [id number] 10:42:00Medical Cytology Report Case: [id number] Authorizing Provider: Kalen Carlos MD Collected: 07/28/2018 1400 Ordering Location: [facility] PERIOPERATIVE Received: 07/28/2018 1424 SERVICES Pathologist: vEita Dhillon MD Specimen: Lymph Node, Lower Paratracheal, Right, Station 4R LYMPH NODE, LOWERPARATRACHEAL, RIGHT, STATION 4R EBUS FNA AND CORE BIOPSY BY CLINICIAN (CYTOSPINS AND CELL BLOCK OF ASPIRATE): - NEGATIVE FOR MALIGNANCY - ANTHRACOTIC LYMPH NODE FRAGMENTS Signing Pathologist D irect Phone Line: [phone] signed by Evita Dhillon MD on 08/01/2018 at 10:42AMPlease see cases [id number] and [id number].Microscopic slides are received for examination and review on08/01/2018.58179, [id number] lymphadenopathy, history of T-cell lymphoma currently in remissionLYMPH NODE, LOWER PARATRACHEAL, RIGHT, STATION 4R EBUS FNA37 mls in cytorich red; 2 cytospins, cellblock (A3)Core biopsy: Multiple fragments measuring 7x 0.4cm, 2x 0.5 cm, 0.7 cm, 1.2 cm red (A2)Collected: [id number]: [id number].The interpretation of this case included the use of immunohistochemistry or special stains. Immunohistochemistry technical testing was performed at [facility], Pathology Laboratory where it was developed and its performance characteristics were determined. It has not been cleared or approved by the U.S. Food and Drug Administration. The FDA has determined that such clearance or approval is not necessary. The test is used for clinical purposes. It should not be regarded as investigational or for research. This laboratory is certified under the Clinical Laboratory Improvement Amendments of 1988 (CLIA-88) as qualified to perform high complexity clinical laboratory testing.[facility], Department of Pathology, [address] [place] [address], [facility], [facility], [address] [place], [place] [id number], [facility], Department of [facility]ology, [address] [place] [address], NISM NEEDLE ASPIRATE BY [id number] 10:41:00Medical Cytology Report Case: [id number] Authorizing Provider: Kalen Carlos MD Collected: 07/28/2018 1356 Ordering Location: [facility] PERIOPERATIVE Received: 07/28/2018 1424 SERVICES Pathologist: Evita Dhillon MD Specimen: Ly mph Node, Subcarinal, Station 7 LYMPH NODE, SUBCARINAL, STATION 7 EBUS FNA AND CORE BIOPSY BY CLINICIAN (CYTOSPINS AND CELL BLOCK OF ASPIRATE): - NEGATIVE FOR MALIGNANCY - ANTHRACOTIC LYMPH NODE FRAGMENTS Signing Pathologist Direct Phone Line: [phone] signed by Evita Dhillon MD on 08/01/2018 at 10:41 AMPlease see cases [id number] and [id number].Microscopic slides are received for examination and review on 08/01/2018.55339, [id number] lymphadenopathy, history of T-cell lymphoma currently in remissionLYMPH NODE, SUBCARINAL, STATION 7 EBUS FNA32 mls in cytorich red; 2 cytospins, cell block (A3)Core biopsy: multiple fragments measuring 1.5 x 0.8 cm, 0.5 cm, 0.3 cm, 0.2 cm red (A2)Collected: [id number]: [id number] interpretation of this case included the use of immunohistochemistry or special stains. Immunohistochemistry technical testing was performed at [facility], Pathology Laboratory where it was developed and its performance characteristics were determined. It has not been cleared or approved by the U.S. Food and Drug Administration. The FDA has determined that such clearance or approval is not necessary. The test is used for clinical purposes. It should not be regarded as investigational or for research. This laboratory is certified under the Clinical Laboratory Improvement Amendments of 1988 (CLIA-88) as qualified to perform high complexity clinical laboratory testing.[facility], Department of Pathology, [address] [place] [address], [facility], Department of Pathology, [address] [place] [address], [facility] [place], Department of Pathology, [address] [place] [address], VNNT CYTOMETRY [id number] 12:41:00 Test Item Value Reference Range Interpretation Comments FLOW CYTOMETRY RESULT See Separate Report POINTER (EDENILSON) (test code = 2758) FLOW CYTOMETRY AP CASE # [id number] (EDENILSON) (test code = 2759) FLOW [id number] 10:53:00Flow Cytometry Report Case: [id number] Authorizing Provider: Kalen Carlos MD Collected: 07/28/2018 1355 Ordering Location: [facility] PERIOPERATIVE Received: 07/28/2018 1653 SERVICES Pathologist: Malissa Cohen MD Specimen: Other LYMPH NODE, EBUS FINE NEEDLE ASPIRATION, FLOW CYTOMETRY:-PREDOMINANCE OF GRANULOCYTES-NO MONOTYPIC B CELL POPULATION-NO ABERRANT T CELL POPULATION-SEE COMMENT The predominance of granulocytes is suggestive of peripheral blood contamination of the sample. These results require correlation with the morphologic and other features for full interpre tation. [id number] lymphadenopathy, History of T cell lymphoma s/p therapyLymph node FNA EBUS-guidedCD8, surface-kappa, CD56, surface-lambda, CD5, CD19, CD10, CD3, CD20, CD4, LE45Lkfhdrwj Viability: 98.3% Number of Events Acquired: [id number] The following populations are identified: Lymphocytes: Bright CD45+ lymphocytes comprise 23.7% of total cells. T cells show a CD4:CD8 ratio of 3.3 and normal expression of the de la cruz T cell antigens CD3 and CD5. B cells are polytypic with a kappa:lambda ratio of 1.7. Myeloid/monocytic populations: As identified by CD45 and light scatter characteristics, granulocytes comprise the majority of cells analyzed (63.7%), and monocytes comprise 2.0% of total cells. The remaining events analyzed represent nonviable cells, non-hematolymphoid cells, and debris.These tests were developed and their performance characteristics determined by [facility]. They have not been cleared or approved by the U.S. Food and Drug Administration. The FDA has determined that such clearance or approval is not necessary. It should not be regarded as investigational or for research. This laboratory is certified under the Clinical Laboratory Improvement Amendments of 1988 ("CLIA") as qualified to perform high-complexity clinical testing.EBUS FNA [id number] 16:00:00 Test Item Value Reference Range Interpretation Comments CYTOLOGY RESULT POINTER See Separate Report (BEAKER) (test code = 2629) EBUS FNA [id number] 16:00:00 Test Item Value Reference Range Interpretation Comments CYTOLOGY RESULT POINTER See Separate Report (BEAKER) (test code = 2629) COMPREHENSIVE METABOLIC [id number] 11:20:00 Test Item Value Reference Range Interpretation Comments TOTAL PROTEIN 7.1 gm/dL 6.0-8.3 (BEAKER) (test code = 770) ALBUMIN (BEAKER) 3.7 g/dL 3.5-5.0 (test code = 1145) ALKALINE PHOSPHATASE 39 U/L 40-150 L (BEAKER) (test code = 346) BILIRUBIN TOTAL 0.3 mg/dL 0.2-1.2 (BEAKER) (test code = 377) SODIUM (BEAKER) (test 138 meq/L 136-145 code = 381) POTASSIUM (BEAKER) 4.5 meq/L 3.5-5.1 (test code = 379) CHLORIDE (BEAKER) 103 meq/L 98-107 (test code = 382) CO2 (BEAKER) (test 23 meq/L 22-29 code = 355) BLOOD UREA NITROGEN 39 mg/dL 7-21 H (BEAKER) (test code = 354) CREATININE (BEAKER) 9.78 mg/dL 0.57-1.25 H (test code = 358) GLUCOSE RANDOM 79 mg/dL 70-105 (BEAKER) (test code = 652) CALCIUM (BEAKER) 9.2 mg/dL 8.4-10.2 (test code = 697) AST (SGOT) (BEAKER) 24 U/L 5-34 (test code = 353) ALT (SGPT) (BEAKER) 27 U/L 6-55 (test code = 347) EGFR (BEAKER) (test 7 mL/min/1.73 ESTIMAT ED GFR IS code = 1092) sq m NOT ACCURATE CREATININE CLEARANCE IN PREDICTING GLOMERULAR FILTRATION RATE . ESTIMATED GFR I S NOT APPLICABLE FOR DIALYSIS PATIEN LULA. [id number] 10:18:00 Test Item Value Reference Range Interpretation Comments PARTIAL THROMBOPLASTIN TIME 36.1 seconds 22.5-36.0 H (BEAKER) (test code = 760) PROTHROMBIN TIME/[id number] 10:16:00 Test Item Value Reference Range Interpretation Comments PROTIME (BEAKER) (test code = 13.7 seconds 11.7-14.7 759) INR (BEAKER) (test code = 370) 1.0 <=5.9 RECOMMENDED COUMADIN/WARFARIN INR THERAPY RANGESSTANDARD DOSE: 2.0 - 3.0 Includes: PROPHYLAXIS forvenous thrombosis, systemic embolization; TREATMENT for venous thrombosis and/or pulmonary embolus.HIGH RISK: Target INR is 2.5-3.5 for patients with mechanical heart valves.CBC W/PLT COUNT & AUTO DIFFERENTIAL 2018-07-28 10:07:00 Test Item Value Reference Range Interpretation Comments WHITE BLOOD CELL COUNT (BEAKER) 6.4 K/ L 3.5-10.5 (test code = 775) RED BLOOD CELL COUNT (BEAKER) 3.40 M/ L 4.63-6.08 L (test code = 761) HEMOGLOBIN (BEAKER) (test code = 9.5 GM/DL 13.7-17.5 L 410) HEMATOCRIT (BEAKER) (test code = 31.1 % 40.1-51.0 L 411) MEAN CORPUSCULAR VOLUME (BEAKER) 91.5 fL 79.0-92.2 (test code = 753) MEAN CORPUSCULAR HEMOGLOBIN 27.9 pg 25.7-32.2 (BEAKER) (test code = 751) MEAN CORPUSCULAR HEMOGLOBIN CONC 30.5 GM/DL 32.3-36.5 L (BEAKER) (test code = 752) RED CELL DISTRIBUTION WIDTH 14.7 % 11.6-14.4 H (BEAKER) (test code = 412) PLATELET COUNT (BEAKER) (test 350 K/CU MM 150-450 code = 756) MEAN PLATELET VOLUME (BEAKER) 9.7 fL 9.4-12.4 (test code = 754) NUCLEATED RED BLOOD CELLS 0 /100 WBC 0-0 (BEAKER) (test code = 413) NEUTROPHILS RELATIVE PERCENT 62 % (BEAKER) (test code = 429) LYMPHOCYTES RELATIVE PERCENT 21 % (BEAKER) (test code = 430) MONOCYTES RELATIVE PERCENT 13 % (BEAKER) (test code = 431) EOSINOPHILS RELATIVE PERCENT 3 % (BEAKER) (test code = 432) BASOPHILS RELATIVE PERCENT 1 % (BEAKER) (test code = 437) NEUTROPHILS ABSOLUTE COUNT 3.97 K/ L 1.78-5.38 (BEAKER) (test code = 670) LYMPHOCYTES ABSOLUTE COUNT 1.33 K/ L 1.32-3.57 (BEAKER) (test code = 414) MONOCYTES ABSOLUTE COUNT (BEAKER) 0.80 K/ L 0.30-0.82 (test code = 415) EOSINOPHILS ABSOLUTE COUNT 0.20 K/ L 0.04-0.54 (BEAKER) (test code = 416) BASOPHILS ABSOLUTE COUNT (BEAKER) 0.04 K/ L 0.01-0.08 (test code = 417) IMMATURE GRANULOCYTES-RELATIVE 1 % 0-1 PERCENT (BEAKER) (test code = 2801) COMPREHENSIVE METABOLIC [id number] 07:46:00 Test Item Value Reference Range Interpretation Comments TOTAL PROTEIN 7.4 gm/dL 6.0-8.3 (BEAKER) (test code = 770) ALBUMIN (BEAKER) 4.0 g/dL 3.5-5.0 (test code = 1145) ALKALINE PHOSPHATASE 36 U/L 40-150 L (BEAKER) (test code = 346) BILIRUBIN TOTAL 0.4 mg/dL 0.2-1.2 (BEAKER) (test code = 377) SODIUM (BEAKER) (test 139 meq/L 136-145 code = 381) POTASSIUM (BEAKER) 4.4 meq/L 3.5-5.1 (test code = 379) CHLORIDE (BEAKER) 105 meq/L 98-107 (test code = 382) CO2 (BEAKER) (test 22 meq/L 22-29 code = 355) BLOOD UREA NITROGEN 46 mg/dL 7-21 H (BEAKER) (test code = 354) CREATININE (BEAKER) 9.83 mg/dL 0.57-1.25 H (test code = 358) GLUCOSE RANDOM 92 mg/dL 70-105 (BEAKER) (test code = 652) CALCIUM (BEAKER) 8.6 mg/dL 8.4-10.2 (test code = 697) AST (SGOT) (BEAKER) 15 U/L 5-34 (test code = 353) ALT (SGPT) (BEAKER) 17 U/L 6-55 (test code = 347) EGFR (BEAKER) (test 7 mL/min/1.73 ESTIMAT ED GFR IS code = 1092) sq m NOT ACCURATE CREATININE CLEARANCE IN PREDICTING GLOMERULAR FILTRATION RATE . ESTIMATED GFR I S NOT APPLICABLE FOR DIALYSIS PATIEN TS. [id number] 07:31:00 Test Item Value Reference Range Interpretation Comments PARTIAL THROMBOPLASTIN TIME 45.9 seconds 22.5-36.0 H (BEAKER) (test code = 760) PROTHROMBIN [id number] 07:30:00 Test Item Value Reference Range Interpretation Comments PROTIME (BEAKER) (test code = 13.7 seconds 11.7-14.7 759) INR (BEAKER) (test code = 370) 1.0 <=5.9 RECOMMENDED COUMADIN/WARFARIN INR THERAPY RANGESSTANDARD DOSE: 2.0 - 3.0 Includes: PROPHYLAXIS forvenous thrombosis, systemic embolization; TREATMENT for venous thrombosis and/or pulmonary embolus.HIGH RISK: Target INR is 2.5-3.5 for patients with mechanical heart valves.CBC W/PLT COUNT & AUTO DIFFERENTIAL 2018-07-18 07:22:00 Test Item Value Reference Range Interpretation Comments WHITE BLOOD CELL COUNT (BEAKER) 6.4 K/ L 3.5-10.5 (test code = 775) RED BLOOD CELL COUNT (BEAKER) 3.65 M/ L 4.63-6.08 L (test code = 761) HEMOGLOBIN (BEAKER) (test code = 10.2 GM/DL 13.7-17.5 L 410) HEMATOCRIT (BEAKER) (test code = 33.6 % 40.1-51.0 L 411) MEAN CORPUSCULAR VOLUME (BEAKER) 92.1 fL 79.0-92.2 (test code = 753) MEAN CORPUSCULAR HEMOGLOBIN 27.9 pg 25.7-32.2 (BEAKER) (test code = 751) MEAN CORPUSCULAR HEMOGLOBIN CONC 30.4 GM/DL 32.3-36.5 L (BEAKER) (test code = 752) RED CELL DISTRIBUTION WIDTH 15.6 % 11.6-14.4 H (BEAKER) (test code = 412) PLATELET COUNT (BEAKER) (test 214 K/CU MM 150-450 code = 756) MEAN PLATELET VOLUME (BEAKER) 10.2 fL 9.4-12.4 (test code = 754) NUCLEATED RED BLOOD CELLS 0 /100 WBC 0-0 (BEAKER) (test code = 413) NEUTROPHILS RELATIVE PERCENT 63 % (BEAKER) (test code = 429) LYMPHOCYTES RELATIVE PERCENT 19 % (BEAKER) (test code = 430) MONOCYTES RELATIVE PERCENT 14 % (BEAKER) (test code = 431) EOSINOPHILS RELATIVE PERCENT 3 % (BEAKER) (test code = 432) BASOPHILS RELATIVE PERCENT 1 % (BEAKER) (test code = 437) NEUTROPHILS ABSOLUTE COUNT 4.03 K/ L 1.78-5.38 (BEAKER) (test code = 670) LYMPHOCYTES ABSOLUTE COUNT 1.24 K/ L 1.32-3.57 L (BEAKER) (test code = 414) MONOCYTES ABSOLUTE COUNT (BEAKER) 0.87 K/ L 0.30-0.82 H (test code = 415) EOSINOPHILS ABSOLUTE COUNT 0.18 K/ L 0.04-0.54 (BEAKER) (test code = 416) BASOPHILS ABSOLUTE COUNT (BEAKER) 0.03 K/ L 0.01-0.08 (test code = 417) IMMATURE GRANULOCYTES-RELATIVE 1 % 0-1 PERCENT (BEAKER) (test code = 2801) POCT-GLUCOSE [id number] 06:48:00 Test Item Value Reference Range Interpretation Comments POC-GLUCOSE METER 106 mg/dL 70-110 TESTED AT [facility] 6720 (BEAKER) (test code = VELVETJULISSA M[facility]UGH 1538) [address] BASIC METABOLIC [id number] 11:54:00 Test Item Value Reference Range Interpretation Comments SODIUM (BEAKER) 139 meq/L 136-145 (test code = 381) POTASSIUM (BEAKER) 4.2 meq/L 3.5-5.1 (test code = 379) CHLORIDE (BEAKER) 104 meq/L 98-107 (test code = 382) CO2 (BEAKER) (test 22 meq/L 22-29 code = 355) BLOOD UREA NITROGEN 61 mg/dL 7-21 H (BEAKER) (test code = 354) CREATININE (BEAKER) 10.74 mg/dL 0.57-1.25 H (test code = 358) GLUCOSE RANDOM 100 mg/dL 70-105 (BEAKER) (test code = 652) CALCIUM (BEAKER) 8.8 mg/dL 8.4-10.2 (test code = 697) EGFR (BEAKER) (test 6 mL/min/1.73 ESTIMAT ED GFR IS code = 1092) sq m NOT ACCURATE CREATININE CLEARANCE IN PREDICTING GLOMERULAR FILTRATION RATE . ESTIMATED GFR I S NOT APPLICABLE FOR DIALYSIS PATIEN TS. CBC W/PLT COUNT & AUTO [id number] 11:37:00 Test Item Value Reference Range Interpretation Comments WHITE BLOOD CELL COUNT (BEAKER) 6.1 K/ L 3.5-10.5 (test code = 775) RED BLOOD CELL COUNT (BEAKER) 3.95 M/ L 4.63-6.08 L (test code = 761) HEMOGLOBIN (BEAKER) (test code = 11.2 GM/DL 13.7-17.5 L 410) HEMATOCRIT (BEAKER) (test code = 36.4 % 40.1-51.0 L 411) MEAN CORPUSCULAR VOLUME (BEAKER) 92.2 fL 79.0-92.2 (test code = 753) MEAN CORPUSCULAR HEMOGLOBIN 28.4 pg 25.7-32.2 (BEAKER) (test code = 751) MEAN CORPUSCULAR HEMOGLOBIN CONC 30.8 GM/DL 32.3-36.5 L (BEAKER) (test code = 752) RED CELL DISTRIBUTION WIDTH 15.1 % 11.6-14.4 H (BEAKER) (test code = 412) PLATELET COUNT (BEAKER) (test 257 K/CU MM 150-450 code = 756) MEAN PLATELET VOLUME (BEAKER) 10.4 fL 9.4-12.4 (test code = 754) NUCLEATED RED BLOOD CELLS 0 /100 WBC 0-0 (BEAKER) (test code = 413) NEUTROPHILS RELATIVE PERCENT 62 % (BEAKER) (test code = 429) LYMPHOCYTES RELATIVE PERCENT 20 % (BEAKER) (test code = 430) MONOCYTES RELATIVE PERCENT 15 % (BEAKER) (test code = 431) EOSINOPHILS RELATIVE PERCENT 2 % (BEAKER) (test code = 432) BASOPHILS RELATIVE PERCENT 1 % (BEAKER) (test code = 437) NEUTROPHILS ABSOLUTE COUNT 3.78 K/ L 1.78-5.38 (BEAKER) (test code = 670) LYMPHOCYTES ABSOLUTE COUNT 1.24 K/ L 1.32-3.57 L (BEAKER) (test code = 414) MONOCYTES ABSOLUTE COUNT (BEAKER) 0.90 K/ L 0.30-0.82 H (test code = 415) EOSINOPHILS ABSOLUTE COUNT 0.13 K/ L 0.04-0.54 (BEAKER) (test code = 416) BASOPHILS ABSOLUTE COUNT (BEAKER) 0.03 K/ L 0.01-0.08 (test code = 417) IMMATURE GRANULOCYTES-RELATIVE 0 % 0-1 PERCENT (BEAKER) (test code = 2801) [id number] 09:37:00 Test Item Value Reference Range Interpretation Comments POC-POTASSIUM 4.2 meq/L 3.6-5.5 TESTED AT [facility] C 6720 (BEAKER) (test code [facility] [address] = 1540) BUN AND [id number] 13:33:00 Test Item Value Reference Range Interpretation Comments BLOOD UREA NITROGEN 44 mg/dL 7-21 H (BEAKER) (test code = 354) CREATININE (BEAKER) 10.90 mg/dL 0.57-1.25 H (test code = 358) EGFR (BEAKER) (test 6 mL/min/1.73 ESTIMAT ED GFR IS code = 1092) sq m NOT ACCURATE CREATININE CLEARANCE IN PREDICTING GLOMERULAR FILTRATION RATE . ESTIMATED GFR I S NOT APPLICABLE FOR DIALYSIS PATIEN TS. [id number] 13:32:00 Test Item Value Reference Range Interpretation Comments SODIUM (BEAKER) (test code = 381) 139 meq/L 136-145 POTASSIUM (BEAKER) (test code = 4.2 meq/L 3.5-5.1 379) CHLORIDE (BEAKER) (test code = 382) 100 meq/L 98-107 CO2 (BEAKER) (test code = 355) 27 meq/L 22-29 [id number] 13:14:00 Test Item Value Reference Range Interpretation Comments HEMOGLOBIN (BEAKER) (test code = 12.8 GM/DL 13.7-17.5 L 410) BLOOD [id number] 04:41:00 Test Item Value Reference Range Interpretation Comments CULTURE ([facility]) (test No growth in 5 days code = 1095) POCT-GLUCOSE [id number] 13:11:00 Test Item Value Reference Range Interpretation Comments POC-GLUCOSE METER 169 mg/dL 70-110 H TESTED AT [facility] 6720 ([place]) (test code = [place] 1538) [address] ANG, TUNNELED CATHETER [id number] 18:19:00FINAL REPORT Tunneled dialysis catheter insertion. History: Renal failure. Modality: Sonography and fluoroscopy. Sedation: Moderate sedation was administered. 2 mg of Versed and 100 mcg of fentanyl IV was used for moderate sedation monitored under my direction. Total intra-service time of sedation was 30 minutes. The patient'svital signs were monitored throughout the procedure and recorded in the patient's medical record by the nurse. Computer Systems Administrator: [place] Outsole Scheduler: None. Approach: Left internal jugular vein Estimatedblood [...] internal jugular vein was punctured under direct real- time ultrasound guidance with a micropuncture needle. However, a 0.018 wire could not be advanced centrally. The inner 3 [place] micropuncture sheath was placed and contrast injected [...] needle into the right atrium. A 4 [place] micropuncture sheath was placed and a 0.035 wire advanced into the IVC. A subcutaneous tunnel was created in theleft anterior chest wall by blunt dissection. A 23 cm tip to cuff 15.5 [place] Duraflow 2 catheter was brought through the [...] superior right atrium. Impression: Successful, uncomplicated placement ofa left internal jugular tunneled dialysis catheter using sonographic and fluoroscopic guidance and conscious sedation. Signed: Jeovany Hill MDReport Verified Date/Time: 01/13/2018 18:19:33 Reading Location: [place] [address] Angio Body Reading Room POCT-GLUCOSE [id number] 17:11:00 Test Item Value Reference Range Interpretation Comments POC-GLUCOSE METER 159 mg/dL 70-110 H TESTED AT [facility] 6720 ([facility]) (test [facility] = [facility] 1538) [address] CATHETER TIP [id number] 10:23:00 Test Item Value Reference Range Interpretation Comments CULTURE ([facility]) A <15 [place] s On (test code = 1095) Direct Pl ate Pseudomonas aeruginosa CULTURE ([facility]) PSEUDOMONAS A <15 [place] On (test code = 1095) AERUGINOSA Direct Pl ate Pseudomonas aeruginosa Amikacin (test code S = 1) Aztreonam (test code S = 32) Cefepime (test code S = 51) Ceftazidime (test S code = 27) Ciprofloxacin (test S code = 7) Gentamicin (test S code = 18) Levofloxacin (test S code = 22) Meropenem (test code S = 34) Piperacillin (test S code = 24) Piperacillin + S Tazobactam (test code = 29) Tobramycin (test S code = 25) POCT-GLUCOSE [id number] 08:43:00 Test Item Value Reference Range Interpretation Comments POC-GLUCOSE METER 116 mg/dL 70-110 H TESTED AT [facility] 6720 (BEAKER) (test code = [place] 1538) [address] BASIC METABOLIC [id number] 06:17:00 Test Item Value Reference Range Interpretation Comments SODIUM (BEAKER) 136 meq/L 136-145 (test code = 381) POTASSIUM (BEAKER) 4.4 meq/L 3.5-5.1 (test code = 379) CHLORIDE (BEAKER) 97 meq/L 98-107 L (test code = 382) CO2 (BEAKER) (test 18 meq/L 22-29 L code = 355) BLOOD UREA NITROGEN 108 mg/dL 7-21 H (BEAKER) (test code = 354) CREATININE (BEAKER) 13.45 mg/dL 0.57-1.25 H (test code = 358) GLUCOSE RANDOM 144 mg/dL 70-105 H (BEAKER) (test code = 652) CALCIUM (BEAKER) 9.8 mg/dL 8.4-10.2 (test code = 697) EGFR (BEAKER) (test 5 mL/min/1.73 ESTIMAT ED GFR IS code = 1092) sq m NOT ACCURATE CREATININE CLEARANCE IN PREDICTING GLOMERULAR FILTRATION RATE . ESTIMATED GFR I S NOT APPLICABLE FOR DIALYSIS PATIEN TS. [id number] 05:32:00 Test Item Value Reference Range Interpretation Comments PROTIME (BEAKER) (test code = 14.3 seconds 11.7-14.7 759) INR (BEAKER) (test code = 370) 1.1 <=5.9 PARTIAL THROMBOPLASTIN TIME 33.1 seconds 22.5-36.0 (BEAKER) (test code = 760) RECOMMENDED COUMADIN/WARFARIN INR THERAPY RANGESSTANDARD DOSE: 2.0 - 3.0 Includes: PROPHYLAXIS forvenous thrombosis, systemic embolization; TREATMENT for venous thrombosis and/or pulmonary embolus.HIGH RISK: Target INR is 2.5-3.5 for patients with mechanical heart valves.CBC (HEMOGRAM ONLY)2018-01-13 05:24:00 Test Item Value Reference Range Interpretation Comments WHITE BLOOD CELL COUNT (BEAKER) 9.6 K/ L 3.5-10.5 (test code = 775) RED BLOOD CELL COUNT (BEAKER) 3.56 M/ L 4.63-6.08 L (test code = 761) HEMOGLOBIN (BEAKER) (test code = 10.0 GM/DL 13.7-17.5 L 410) HEMATOCRIT (BEAKER) (test code = 31.6 % 40.1-51.0 L 411) MEAN CORPUSCULAR VOLUME (BEAKER) 88.8 fL 79.0-92.2 (test code = 753) MEAN CORPUSCULAR HEMOGLOBIN 28.1 pg 25.7-32.2 (BEAKER) (test code = 751) MEAN CORPUSCULAR HEMOGLOBIN CONC 31.6 GM/DL 32.3-36.5 L (BEAKER) (test code = 752) RED CELL DISTRIBUTION WIDTH 14.6 % 11.6-14.4 H (BEAKER) (test code = 412) PLATELET COUNT (BEAKER) (test 411 K/CU MM 150-450 code = 756) MEAN PLATELET VOLUME (BEAKER) 10.2 fL 9.4-12.4 (test code = 754) NUCLEATED RED BLOOD CELLS 0 /100 WBC 0-0 (BEAKER) (test code = 413) POCT-GLUCOSE [id number] 22:24:00 Test Item Value Reference Range Interpretation Comments POC-GLUCOSE METER 118 mg/dL 70-110 H TESTED AT [place] [address] ([facility]) (test code = [place] 1538) [id number] POCT-GLUCOSE [id number] 18:32:00 Test Item Value Reference Range Interpretation Comments POC-GLUCOSE METER 146 mg/dL 70-110 H TESTED AT [place] [address] ([facility]) (test code = [place] 1538) [address] POCT-GLUCOSE [id number] 12:18:00 Test Item Value Reference Range Interpretation Comments POC-GLUCOSE METER 106 mg/dL 70-110 TESTED AT [place] [address] ([facility]) (test code = [place] 1538) [address] POCT-GLUCOSE [id number] 07:45:00 Test Item Value Reference Range Interpretation Comments POC-GLUCOSE METER 98 mg/dL 70-110 TESTED AT [place] [address] ([facility]) (test code = TATY Olivas [facility] [address] 1538) BLOOD [id number] 06:00:00 Test Item Value Reference Range Interpretation Comments CULTURE (BEAKER) (test No growth in 5 days code = 1095) BLOOD [id number] 06:00:00 Test Item Value Reference Range Interpretation Comments CULTURE (BEAKER) (test No growth in 5 days code = 1095) POCT-GLUCOSE [id number] 21:04:00 Test Item Value Reference Range Interpretation Comments POC-GLUCOSE METER 124 mg/dL 70-110 H TESTED AT [place] [address] ([facility]) (test code = [facility] Brendon [facility] 1538) [id number] POCT-GLUCOSE [id number] 17:25:00 Test Item Value Reference Range Interpretation Comments POC-GLUCOSE METER 177 mg/dL 70-110 H TESTED AT [place] [address] ([facility]) (test code = [facility] Brendon [facility] 1538) [id number] BASIC METABOLIC [id number] 13:32:00 Test Item Value Reference Range Interpretation Comments SODIUM (BEAKER) 130 meq/L 136-145 L (test code = 381) POTASSIUM (BEAKER) 5.0 meq/L 3.5-5.1 (test code = 379) CHLORIDE (BEAKER) 97 meq/L 98-107 L (test code = 382) CO2 (BEAKER) (test 18 meq/L 22-29 L code = 355) BLOOD UREA NITROGEN 86 mg/dL 7-21 H (BEAKER) (test code = 354) CREATININE (BEAKER) 12.19 mg/dL 0.57-1.25 H (test code = 358) GLUCOSE RANDOM 94 mg/dL 70-105 (BEAKER) (test code = 652) CALCIUM (BEAKER) 9.5 mg/dL 8.4-10.2 (test code = 697) EGFR (BEAKER) (test 5 mL/min/1.73 ESTIMAT ED GFR IS code = 1092) sq m NOT ACCURATE CREATININE CLEARANCE IN PREDICTING GLOMERULAR FILTRATION RATE . ESTIMATED GFR I S NOT APPLICABLE FOR DIALYSIS PATIEN TS. POCT-GLUCOSE [id number] 12:17:00 Test Item Value Reference Range Interpretation Comments POC-GLUCOSE METER 82 mg/dL 70-110 TESTED AT [facility] 6720 ([facility]) (test code = TATY Olivas [facility] [address] 1538) [id number] 11:20:00 Test Item Value Reference Range Interpretation Comments PROTIME ([facility]) (test code = 15.3 seconds 11.7-14.7 H 759) INR ([facility]) (test code = 370) 1.2 <=5.9 PARTIAL THROMBOPLASTIN TIME 30.9 seconds 22.5-36.0 (BEAKER) (test code = 760) RECOMMENDED COUMADIN/WARFARIN INR THERAPY RANGESSTANDARD DOSE: 2.0 - 3.0 Includes: PROPHYLAXIS forvenous thrombosis, systemic embolization; TREATMENT for venous thrombosis and/or pulmonary embolus.HIGH RISK: Target INR is 2.5-3.5 for patients with mechanical heart valves.BLOOD [id number] 11:00:00 Test Item Value Reference Range Interpretation Comments CULTURE ([facility]) (test No growth in 5 days code = 1095) POCT-GLUCOSE [id number] 07:51:00 Test Item Value Reference Range Interpretation Comments POC-GLUCOSE METER 107 mg/dL 70-110 TESTED AT [place] [address] ([facility]) (test code = TATY Olivas [facility] 1538) [address] CALCIUM, [id number] 06:32:00 Test Item Value Reference Range Interpretation Comments CALCIUM IONIZED (AKER) (test 0.87 mmol/L 1.12-1.27 L code = 698) PH, BLOOD (BEAKER) (test code = 7.38 1810) [id number] 06:13:00 Test Item Value Reference Range Interpretation Comments PHOSPHORUS (BEAKER) (test code = 6.9 mg/dL 2.3-4.7 H 604) [id number] 06:13:00 Test Item Value Reference Range Interpretation Comments MAGNESIUM (BEAKER) (test code = 2.6 mg/dL 1.6-2.6 627) CBC W/PLT COUNT & AUTO [id number] 06:00:00 Test Item Value Reference Range Interpretation Comments WHITE BLOOD CELL COUNT (BEAKER) 8.0 K/ L 3.5-10.5 (test code = 775) RED BLOOD CELL COUNT (BEAKER) 3.56 M/ L 4.63-6.08 L (test code = 761) HEMOGLOBIN (BEAKER) (test code = 9.9 GM/DL 13.7-17.5 L 410) HEMATOCRIT (BEAKER) (test code = 31.8 % 40.1-51.0 L 411) MEAN CORPUSCULAR VOLUME (BEAKER) 89.3 fL 79.0-92.2 (test code = 753) MEAN CORPUSCULAR HEMOGLOBIN 27.8 pg 25.7-32.2 (BEAKER) (test code = 751) MEAN CORPUSCULAR HEMOGLOBIN CONC 31.1 GM/DL 32.3-36.5 L (BEAKER) (test code = 752) RED CELL DISTRIBUTION WIDTH 14.6 % 11.6-14.4 H (BEAKER) (test code = 412) PLATELET COUNT (BEAKER) (test 399 K/CU MM 150-450 code = 756) MEAN PLATELET VOLUME (BEAKER) 10.3 fL 9.4-12.4 (test code = 754) NUCLEATED RED BLOOD CELLS 0 /100 WBC 0-0 (BEAKER) (test code = 413) NEUTROPHILS RELATIVE PERCENT 58 % (BEAKER) (test code = 429) LYMPHOCYTES RELATIVE PERCENT 22 % (BEAKER) (test code = 430) MONOCYTES RELATIVE PERCENT 13 % (BEAKER) (test code = 431) EOSINOPHILS RELATIVE PERCENT 2 % (BEAKER) (test code = 432) BASOPHILS RELATIVE PERCENT 1 % (BEAKER) (test code = 437) NEUTROPHILS ABSOLUTE COUNT 4.66 K/ L 1.78-5.38 (BEAKER) (test code = 670) LYMPHOCYTES ABSOLUTE COUNT 1.77 K/ L 1.32-3.57 (BEAKER) (test code = 414) MONOCYTES ABSOLUTE COUNT (BEAKER) 1.02 K/ L 0.30-0.82 H (test code = 415) EOSINOPHILS ABSOLUTE COUNT 0.18 K/ L 0.04-0.54 (BEAKER) (test code = 416) BASOPHILS ABSOLUTE COUNT (BEAKER) 0.06 K/ L 0.01-0.08 (test code = 417) IMMATURE GRANULOCYTES-RELATIVE 4 % 0-1 H PERCENT (BEAKER) (test code = 2801) POCT-GLUCOSE [id number] 21:57:00 Test Item Value Reference Range Interpretation Comments POC-GLUCOSE METER 91 mg/dL 70-110 TESTED AT [place] [address] ([facility]) (test code = TATY Olivas [facility] [address] 1538) BASIC METABOLIC [id number] 20:35:00 Test Item Value Reference Range Interpretation Comments SODIUM (BEAKER) 134 meq/L 136-145 L (test code = 381) POTASSIUM (BEAKER) 4.3 meq/L 3.5-5.1 (test code = 379) CHLORIDE (BEAKER) 98 meq/L 98-107 (test code = 382) CO2 (BEAKER) (test 17 meq/L 22-29 L code = 355) BLOOD UREA NITROGEN 83 mg/dL 7-21 H (BEAKER) (test code = 354) CREATININE (BEAKER) 11.79 mg/dL 0.57-1.25 H (test code = 358) GLUCOSE RANDOM 129 mg/dL 70-105 H (BEAKER) (test code = 652) CALCIUM (BEAKER) 9.9 mg/dL 8.4-10.2 (test code = 697) EGFR (BEAKER) (test 5 mL/min/1.73 ESTIMAT ED GFR IS code = 1092) sq m NOT ACCURATE CREATININE CLEARANCE IN PREDICTING GLOMERULAR FILTRATION RATE . ESTIMATED GFR I S NOT APPLICABLE FOR DIALYSIS PATIEN TS. POCT-GLUCOSE [id number] 17:48:00 Test Item Value Reference Range Interpretation Comments POC-GLUCOSE METER 136 mg/dL 70-110 H TESTED AT [place] [address] ([facility]) (test code = [facility] Brendon [facility] 1538) [address] POCT-GLUCOSE [id number] 12:42:00 Test Item Value Reference Range Interpretation Comments POC-GLUCOSE METER 109 mg/dL 70-110 TESTED AT [place] [address] ([facility]) (test code = [facility] 1538) [address] POCT-GLUCOSE [id number] 08:25:00 Test Item Value Reference Range Interpretation Comments POC-GLUCOSE METER 146 mg/dL 70-110 H TESTED AT [place] [id number] ([facility]) (test code = [facility] 1538) [address] VANCOMYCIN LEVEL, [id number] 01:13:00 Test Item Value Reference Range Interpretation Comments VANCOMYCIN RANDOM (BEAKER) (test 30.1 ug/mL code = 523) Reference Range: No NormalsPOCT-GLUCOSE [id number] 21:48:00 Test Item Value Reference Range Interpretation Comments POC-GLUCOSE METER 118 mg/dL 70-110 H TESTED AT [place] [address] (BEAKER) (test code = [facility] 1538) [address] POCT-GLUCOSE [id number] 18:22:00 Test Item Value Reference Range Interpretation Comments POC-GLUCOSE METER 118 mg/dL 70-110 H TESTED AT [place] [address] ([facility]) (test code = [facility] 1538) [id number] POCT-GLUCOSE [id number] 13:46:00 Test Item Value Reference Range Interpretation Comments POC-GLUCOSE METER 107 mg/dL 70-110 TESTED AT [place] [address] ([facility]) (test code = [facility] 1538) [id number] POCT-GLUCOSE [id number] 08:36:00 Test Item Value Reference Range Interpretation Comments POC-GLUCOSE METER 107 mg/dL 70-110 TESTED AT [place] [address] ([facility]) (test code = [facility] 1538) [id number] SPUTUM CULTURE + GRAM [id number] 07:38:00 Test Item Value Reference Range Interpretation Comments CULTURE (BEAKER) 1+ Normal respiratory (test code = 1095) miller present GRAM STAIN RESULT 1+ WBCs (BEAKER) (test code = 1123) GRAM STAIN RESULT 0-5 epithelial cells (BEAKER) (test code = 56995) GRAM STAIN RESULT 1+ gram positive cocci (BEAKER) (test code = in pairs and clusters 73307) BASIC METABOLIC [id number] 06:57:00 Test Item Value Reference Range Interpretation Comments SODIUM (BEAKER) 134 meq/L 136-145 L (test code = 381) POTASSIUM (BEAKER) 4.4 meq/L 3.5-5.1 (test code = 379) CHLORIDE (BEAKER) 101 meq/L 98-107 (test code = 382) CO2 (BEAKER) (test 18 meq/L 22-29 L code = 355) BLOOD UREA NITROGEN 62 mg/dL 7-21 H (BEAKER) (test code = 354) CREATININE (BEAKER) 9.30 mg/dL 0.57-1.25 H (test code = 358) GLUCOSE RANDOM 99 mg/dL 70-105 (BEAKER) (test code = 652) CALCIUM (BEAKER) 8.8 mg/dL 8.4-10.2 (test code = 697) EGFR (BEAKER) (test 7 mL/min/1.73 ESTIMAT ED GFR IS code = 1092) sq m NOT ACCURATE CREATININE CLEARANCE IN PREDICTING GLOMERULAR FILTRATION RATE . ESTIMATED GFR I S NOT APPLICABLE FOR DIALYSIS PATIEN TS. [id number] 06:54:00 Test Item Value Reference Range Interpretation Comments PHOSPHORUS (BEAKER) (test code = 4.9 mg/dL 2.3-4.7 H 604) [id number] 06:54:00 Test Item Value Reference Range Interpretation Comments MAGNESIUM (BEAKER) (test code = 2.2 mg/dL 1.6-2.6 627) CBC W/PLT COUNT & AUTO [id number] 06:38:00 Test Item Value Reference Range Interpretation Comments WHITE BLOOD CELL COUNT (BEAKER) 8.4 K/ L 3.5-10.5 (test code = 775) RED BLOOD CELL COUNT (BEAKER) 3.47 M/ L 4.63-6.08 L (test code = 761) HEMOGLOBIN (BEAKER) (test code = 9.7 GM/DL 13.7-17.5 L 410) HEMATOCRIT (BEAKER) (test code = 31.3 % 40.1-51.0 L 411) MEAN CORPUSCULAR VOLUME (BEAKER) 90.2 fL 79.0-92.2 (test code = 753) MEAN CORPUSCULAR HEMOGLOBIN 28.0 pg 25.7-32.2 (BEAKER) (test code = 751) MEAN CORPUSCULAR HEMOGLOBIN CONC 31.0 GM/DL 32.3-36.5 L (BEAKER) (test code = 752) RED CELL DISTRIBUTION WIDTH 14.8 % 11.6-14.4 H (BEAKER) (test code = 412) PLATELET COUNT (BEAKER) (test 301 K/CU MM 150-450 code = 756) MEAN PLATELET VOLUME (BEAKER) 11.0 fL 9.4-12.4 (test code = 754) NUCLEATED RED BLOOD CELLS 0 /100 WBC 0-0 (BEAKER) (test code = 413) NEUTROPHILS RELATIVE PERCENT 60 % (BEAKER) (test code = 429) LYMPHOCYTES RELATIVE PERCENT 22 % (BEAKER) (test code = 430) MONOCYTES RELATIVE PERCENT 14 % (BEAKER) (test code = 431) EOSINOPHILS RELATIVE PERCENT 2 % (BEAKER) (test code = 432) BASOPHILS RELATIVE PERCENT 1 % (BEAKER) (test code = 437) NEUTROPHILS ABSOLUTE COUNT 4.99 K/ L 1.78-5.38 (BEAKER) (test code = 670) LYMPHOCYTES ABSOLUTE COUNT 1.84 K/ L 1.32-3.57 (BEAKER) (test code = 414) MONOCYTES ABSOLUTE COUNT (BEAKER) 1.19 K/ L 0.30-0.82 H (test code = 415) EOSINOPHILS ABSOLUTE COUNT 0.15 K/ L 0.04-0.54 (BEAKER) (test code = 416) BASOPHILS ABSOLUTE COUNT (BEAKER) 0.05 K/ L 0.01-0.08 (test code = 417) IMMATURE GRANULOCYTES-RELATIVE 2 % 0-1 H PERCENT (BEAKER) (test code = 2801) CALCIUM, [id number] 06:36:00 Test Item Value Reference Range Interpretation Comments CALCIUM IONIZED (BEAKER) (test 0.81 mmol/L 1.12-1.27 L code = 698) PH, BLOOD (BEAKER) (test code = 7.43 1810) POCT-GLUCOSE [id number] 20:50:00 Test Item Value Reference Range Interpretation Comments POC-GLUCOSE METER 99 mg/dL 70-110 TESTED AT [place] [address] ([facility]) (test [facility] = [facility] [address] 1538) POCT-GLUCOSE [id number] 17:36:00 Test Item Value Reference Range Interpretation Comments POC-GLUCOSE METER 154 mg/dL 70-110 H TESTED AT [place] [address] (BEAKER) (test code = [facility] Brendon [facility] 1538) [address] POCT-GLUCOSE [id number] 12:44:00 Test Item Value Reference Range Interpretation Comments POC-GLUCOSE METER 116 mg/dL 70-110 H TESTED AT [place] [address] (BEAKER) (test code = [facility] 1538) [address] POCT-GLUCOSE [id number] 08:59:00 Test Item Value Reference Range Interpretation Comments POC-GLUCOSE METER 108 mg/dL 70-110 TESTED AT [facility] 6720 (BEAKER) (test code = [place] 1538) [id number] (CELLAVISION MANUAL DIFF)2018-01-08 08:20:00 Test Item Value Reference Range Interpretation Comments NEUTROPHILS - REL 63 % (CELLAVISION)(BEAKER) (test code = 2816) LYMPHOCYTES - REL 18 % (CELLAVISION)(BEAKER) (test code = 2817) MONOCYTES - REL 6 % (CELLAVISION)(BEAKER) (test code = 2818) EOSINOPHILS - REL 1 % (CELLAVISION)(BEAKER) (test code = 2819) BANDS - REL (CELLAVISION)(BEAKER) 12 % 0-10 H (test code = 2826) NEUTROPHILS - ABS 7.12 K/ul 1.78-5.38 H (CELLAVISION)(BEAKER) (test code = 2830) LYMPHOCYTES - ABS 2.03 K/ul 1.32-3.57 (CELLAVISION)(BEAKER) (test code = 2831) MONOCYTES - ABS 0.68 K/uL 0.30-0.82 (CELLAVISION)(BEAKER) (test code = 2832) EOSINOPHILS - ABS 0.11 K/uL 0.04-0.54 (CELLAVISION)(BEAKER) (test code = 2834) BANDS - ABS (CELLAVISION)(BEAKER) 1.36 K/uL 0.00-0.80 H (test code = 2840) TOTAL COUNTED (BEAKER) (test code = 100 1351) WBC MORPHOLOGY (BEAKER) (test code Normal = 487) PLT MORPHOLOGY (BEAKER) (test code Normal = 486) POLYCHROMATOPHILLIC RBCS(BEAKER) 1+ few (test code = 478) ANISOCYTOSIS (BEAKER) (test code = 1+ few 961) POIKILOCYTES (BEAKER) (test code = 1+ few 966) ARTIFACT (CELLAVISION)(BEAKER) Present (test code = 3432) PLATELET CONCENTRATION Adequate (CELLAVISION)(BEAKER) (test code = 3438) Received comment: User comments: Slide comments:CALCIUM, [id number] 07:09:00 Test Item Value Reference Range Interpretation Comments CALCIUM IONIZED (BEAKER) (test 0.94 mmol/L 1.12-1.27 L code = 698) PH, BLOOD (BEAKER) (test code = 7.44 1810) BASIC METABOLIC [id number] 06:16:00 Test Item Value Reference Range Interpretation Comments SODIUM (BEAKER) 134 meq/L 136-145 L (test code = 381) POTASSIUM (BEAKER) 4.5 meq/L 3.5-5.1 (test code = 379) CHLORIDE (BEAKER) 99 meq/L 98-107 (test code = 382) CO2 (BEAKER) (test 24 meq/L 22-29 code = 355) BLOOD UREA NITROGEN 51 mg/dL 7-21 H (BEAKER) (test code = 354) CREATININE (BEAKER) 8.55 mg/dL 0.57-1.25 H (test code = 358) GLUCOSE RANDOM 90 mg/dL 70-105 (BEAKER) (test code = 652) CALCIUM (BEAKER) 8.8 mg/dL 8.4-10.2 (test code = 697) EGFR (BEAKER) (test 8 mL/min/1.73 ESTIMAT ED GFR IS code = 1092) sq m NOT ACCURATE CREATININE CLEARANCE IN PREDICTING GLOMERULAR FILTRATION RATE . ESTIMATED GFR I S NOT APPLICABLE FOR DIALYSIS PATIEN TS. [id number] 06:14:00 Test Item Value Reference Range Interpretation Comments PHOSPHORUS (BEAKER) (test code = 5.5 mg/dL 2.3-4.7 H 604) [id number] 06:14:00 Test Item Value Reference Range Interpretation Comments MAGNESIUM (BEAKER) (test code = 2.3 mg/dL 1.6-2.6 627) HEPATIC FUNCTION [id number] 06:14:00 Test Item Value Reference Range Interpretation Comments TOTAL PROTEIN (BEAKER) (test code = 7.1 gm/dL 6.0-8.3 770) ALBUMIN (BEAKER) (test code = 1145) 3.5 g/dL 3.5-5.0 BILIRUBIN TOTAL (BEAKER) (test code 0.3 mg/dL 0.2-1.2 = 377) BILIRUBIN DIRECT (BEAKER) (test 0.1 mg/dL 0.1-0.5 code = 706) ALKALINE PHOSPHATASE (BEAKER) (test 49 U/L 40-150 code = 346) AST (SGOT) (BEAKER) (test code = 39 U/L 5-34 H 353) ALT (SGPT) (BEAKER) (test code = 68 U/L 6-55 H 347) VANCOMYCIN LEVEL, [id number] 05:56:00 Test Item Value Reference Range Interpretation Comments VANCOMYCIN RANDOM (BEAKER) (test 37.1 ug/mL code = 523) Reference Range: No NormalsPROTHROMBIN [id number] 05:32:00 Test Item Value Reference Range Interpretation Comments PROTIME (BEAKER) (test code = 14.1 seconds 11.7-14.7 759) INR (BEAKER) (test code = 370) 1.1 <=5.9 RECOMMENDED COUMADIN/WARFARIN INR THERAPY RANGESSTANDARD DOSE: 2.0 - 3.0 Includes: PROPHYLAXIS forvenous thrombosis, systemic embolization; TREATMENT for venous thrombosis and/or pulmonary embolus.HIGH RISK: Target INR is 2.5-3.5 for patients with mechanical heart valves.CBC W/PLT COUNT & AUTO DIFFERENTIAL 2018-01-08 05:27:00 Test Item Value Reference Range Interpretation Comments WHITE BLOOD CELL COUNT (BEAKER) 11.3 K/ L 3.5-10.5 H (test code = 775) RED BLOOD CELL COUNT (BEAKER) 3.38 M/ L 4.63-6.08 L (test code = 761) HEMOGLOBIN (BEAKER) (test code = 9.5 GM/DL 13.7-17.5 L 410) HEMATOCRIT (BEAKER) (test code = 30.5 % 40.1-51.0 L 411) MEAN CORPUSCULAR VOLUME (BEAKER) 90.2 fL 79.0-92.2 (test code = 753) MEAN CORPUSCULAR HEMOGLOBIN 28.1 pg 25.7-32.2 (BEAKER) (test code = 751) MEAN CORPUSCULAR HEMOGLOBIN CONC 31.1 GM/DL 32.3-36.5 L (BEAKER) (test code = 752) RED CELL DISTRIBUTION WIDTH 14.9 % 11.6-14.4 H (BEAKER) (test code = 412) PLATELET COUNT (BEAKER) (test 253 K/CU MM 150-450 code = 756) MEAN PLATELET VOLUME (AKER) 11.1 fL 9.4-12.4 (test code = 754) NUCLEATED RED BLOOD CELLS 0 /100 WBC 0-0 (BEAKER) (test code = 413) ANG, REMOVAL OF TUNNELED CVC W/O [id number] 21:29:00Reason for exam:->BacteremiaFINAL REPORT Tunneled catheter removal: Pertinent clinical information: [...] Leslie Verified Date/Time: 01/07/2018 21:29:51 Reading Location: [facility] Radiology Reading Room POCT- GLUCOSE [id number] 21:18:00 Test Item Value Reference Range Interpretation Comments POC-GLUCOSE METER 138 mg/dL 70-110 H TESTED AT [place] [address] ([facility]) (test code = [place] 1538) [address] POCT-GLUCOSE [id number] 17:07:00 Test Item Value Reference Range Interpretation Comments POC-GLUCOSE METER 126 mg/dL 70-110 H TESTED AT [facility] 67[address] ([facility]) (test code = [place] 1538) [address] LACTIC ACID, VENOUS, WHOLE [id number] 15:44:00 Test Item Value Reference Range Interpretation Comments LACTATE BLOOD VENOUS 1.9 mmol/L 0.5-2.2 Specime n slightly (2) (HARDIK) (test hemolyzed code = 2872) Effective 09/10/2015: Units/Reference Range ChangeNew: 0.5-2.2 mmol/L Previous: 5-20 mg/dLPOCT-GLUCOSE [id number] 13:38:00 Test Item Value Reference Range Interpretation Comments POC-GLUCOSE METER 120 mg/dL 70-110 H TESTED AT [facility] 6720 (BEAKER) (test code = [place] 1538) [address] BASIC METABOLIC [id number] 11:05:00 Test Item Value Reference Range Interpretation Comments SODIUM (BEAKER) 136 meq/L 136-145 (test code = 381) POTASSIUM (BEAKER) 4.6 meq/L 3.5-5.1 (test code = 379) CHLORIDE (BEAKER) 101 meq/L 98-107 (test code = 382) CO2 (BEAKER) (test 21 meq/L 22-29 L code = 355) BLOOD UREA NITROGEN 69 mg/dL 7-21 H (BEAKER) (test code = 354) CREATININE (BEAKER) 11.55 mg/dL 0.57-1.25 H (test code = 358) GLUCOSE RANDOM 83 mg/dL 70-105 (BEAKER) (test code = 652) CALCIUM (BEAKER) 9.6 mg/dL 8.4-10.2 (test code = 697) EGFR (BEAKER) (test 5 mL/min/1.73 ESTIMAT ED GFR IS code = 1092) sq m NOT ACCURATE CREATININE CLEARANCE IN PREDICTING GLOMERULAR FILTRATION RATE . ESTIMATED GFR I S NOT APPLICABLE FOR DIALYSIS PATIEN TS. [id number] 10:45:00 Test Item Value Reference Range Interpretation Comments PHOSPHORUS (BEAKER) (test code = 5.6 mg/dL 2.3-4.7 H 604) [id number] 10:45:00 Test Item Value Reference Range Interpretation Comments MAGNESIUM (BEAKER) (test code = 2.5 mg/dL 1.6-2.6 627) HEPATIC FUNCTION [id number] 10:45:00 Test Item Value Reference Range Interpretation Comments TOTAL PROTEIN (BEAKER) (test code = 7.1 gm/dL 6.0-8.3 770) ALBUMIN (BEAKER) (test code = 1145) 3.6 g/dL 3.5-5.0 BILIRUBIN TOTAL (BEAKER) (test code 0.3 mg/dL 0.2-1.2 = 377) BILIRUBIN DIRECT (BEAKER) (test 0.2 mg/dL 0.1-0.5 code = 706) ALKALINE PHOSPHATASE (BEAKER) (test 44 U/L 40-150 code = 346) AST (SGOT) (BEAKER) (test code = 57 U/L 5-34 H 353) ALT (SGPT) (BEAKER) (test code = 78 U/L 6-55 H 347) HEPATITIS B SURFACE [id number] 10:16:00 Test Item Value Reference Range Interpretation Comments HEPATITIS B SURFACE ANTIGEN (2) Nonreactive Nonreactive (AKER) (test code = 2585) POCT-GLUCOSE [id number] 07:59:00 Test Item Value Reference Range Interpretation Comments POC-GLUCOSE METER 102 mg/dL 70-110 TESTED AT [facility] 6720 ([facility]) (test code = [place] 1538) [address] VITAMIN D, 20-[id number] 07:50:00 Test Item Value Reference Range Interpretation Comments VITAMIN D 25-OH (AKER) (test 47.2 ng/mL 6.6-49.9 code = 2764) Effective 02/16/2017: Reference Range ChangeNew: 6.6-49.9 ng/mL Previous: 13.0-47.8 ng/mLRecommended Vitamin D Target Range: 30.0-40.0 ng/mLVANCOMYCIN LEVEL, [id number] 07:12:00 Test Item Value Reference Range Interpretation Comments VANCOMYCIN RANDOM ([facility]) (test 22.1 ug/mL code = 523) Reference Range: No NormalsPTH, [id number] 05:52:00 Test Item Value Reference Range Interpretation Comments PARATHYROID HORMONE INTACT 198.9 pg/mL 8.5-72.5 H (AKER) (test code = 577) CALCIUM, [id number] 05:45:00 Test Item Value Reference Range Interpretation Comments CALCIUM IONIZED (BEAKER) (test 0.84 mmol/L 1.12-1.27 L code = 698) PH, BLOOD ([facility]) (test code = 7.51 1810) PROTHROMBIN [id number] 05:13:00 Test Item Value Reference Range Interpretation Comments PROTIME (BEAKER) (test code = 14.7 seconds 11.7-14.7 759) INR (BEAKER) (test code = 370) 1.2 <=5.9 RECOMMENDED COUMADIN/WARFARIN INR THERAPY RANGESSTANDARD DOSE: 2.0 - 3.0 Includes: PROPHYLAXIS forvenous thrombosis, systemic embolization; TREATMENT for venous thrombosis and/or pulmonary embolus.HIGH RISK: Target INR is 2.5-3.5 for patients with mechanical heart valves.POCT-GLUCOSE [id number] 21:13:00 Test Item Value Reference Range Interpretation Comments POC-GLUCOSE METER 92 mg/dL 70-110 TESTED AT [facility] 6720 (BEAKER) (test code = [place] [address] 1538) [id number] 18:56:00 Test Item Value Reference Range Interpretation Comments PROCALCITONIN (BEAKER) (test code 51.22 ng/mL <0.05 HH = 3036) SEPSIS RISK (ng/mL)Low: 0.05-0.50Intermediate: 0.51-2.00High: >=2.01URINALYSIS W/ [id number] 18:31:00 Test Item Value Reference Range Interpretation Comments COLOR (BEAKER) (test code = 470) Light Yellow CLARITY (BEAKER) (test code = Clear 469) SPECIFIC GRAVITY UA (BEAKER) 1.007 1.001-1.035 (test code = 468) PH UA (BEAKER) (test code = 467) 7.5 5.0-8.0 PROTEIN UA (BEAKER) (test code = 100 mg/dL Negative A 464) GLUCOSE UA (BEAKER) (test code = 50 mg/dL Negative A 365) KETONES UA (BEAKER) (test code = Negative Negative 371) BILIRUBIN UA (BEAKER) (test code Negative Negative = 462) BLOOD UA (BEAKER) (test code = Negative Negative 461) NITRITE UA (BEAKER) (test code = Negative Negative 465) LEUKOCYTE ESTERASE UA (BEAKER) Negative Negative (test code = 466) UROBILINOGEN UA (BEAKER) (test 0.2 mg/dL 0.2-1.0 code = 463) RBC UA (BEAKER) (test code = < /HPF 519) WBC UA (BEAKER) (test code = < /HPF 520) SOURCE(BEAKER) (test code = 2795) [id number] 17:48:00 Test Item Value Reference Range Interpretation Comments PHOSPHORUS (BEAKER) (test code = 5.1 mg/dL 2.3-4.7 H 604) RAD, CHEST, 1 VIEW, NON [id number] 11:31:00Reason for exam:->chest painShould this be performed at the bedside?->YesFINAL REPORT CLINICAL HISTORY: chest pain TECHNIQUE: 1 view of the chest. COM PARISON: 01/25/2017 IMPRESSION: There is a right-sided dialysis catheter terminating near the cavoatrial junction. Bilateral mid lung atelectasis is again seen. There is no pleural fluid. The cardiomediastinal silhouette is magnified by technique. Signed: Lucy Petersen MDReport Verified Date/Time: 12/09 11:31:21 Reading Location: [facility] Radiology Reading Room CBC W/PLT COUNT & AUTO [id number] 11:14:00 Test Item Value Reference Range Interpretation Comments WHITE BLOOD CELL COUNT (BEAKER) 8.0 K/ L 3.5-10.5 (test code = 775) RED BLOOD CELL COUNT (BEAKER) 3.36 M/ L 4.63-6.08 L (test code = 761) HEMOGLOBIN (BEAKER) (test code = 9.5 GM/DL 13.7-17.5 L 410) HEMATOCRIT (BEAKER) (test code = 30.4 % 40.1-51.0 L 411) MEAN CORPUSCULAR VOLUME (BEAKER) 90.5 fL 79.0-92.2 (test code = 753) MEAN CORPUSCULAR HEMOGLOBIN 28.3 pg 25.7-32.2 (BEAKER) (test code = 751) MEAN CORPUSCULAR HEMOGLOBIN CONC 31.3 GM/DL 32.3-36.5 L (BEAKER) (test code = 752) RED CELL DISTRIBUTION WIDTH 15.1 % 11.6-14.4 H (BEAKER) (test code = 412) PLATELET COUNT (BEAKER) (test 239 K/CU MM 150-450 code = 756) MEAN PLATELET VOLUME (BEAKER) 11.2 fL 9.4-12.4 (test code = 754) NUCLEATED RED BLOOD CELLS 0 /100 WBC 0-0 (BEAKER) (test code = 413) (CELLAVISION MANUAL DIFF)2018-01-06 11:14:00 Test Item Value Reference Range Interpretation Comments NEUTROPHILS - REL 56 % (CELLAVISION)(BEAKER) (test code = 2816) LYMPHOCYTES - REL 16 % (CELLAVISION)(BEAKER) (test code = 2817) MONOCYTES - REL 12 % (CELLAVISION)(BEAKER) (test code = 2818) EOSINOPHILS - REL 1 % (CELLAVISION)(BEAKER) (test code = 2819) BANDS - REL (CELLAVISION)(BEAKER) 13 % 0-10 H (test code = 2826) ATYPICAL LYMPHOCYTES - REL 1 % 0-0 H (CELLAVISION)(BEAKER) (test code = 2829) NEUTROPHILS - ABS 4.48 K/ul 1.78-5.38 (CELLAVISION)(BEAKER) (test code = 2830) LYMPHOCYTES - ABS 1.28 K/ul 1.32-3.57 L (CELLAVISION)(BEAKER) (test code = 2831) MONOCYTES - ABS 0.96 K/uL 0.30-0.82 H (CELLAVISION)(BEAKER) (test code = 2832) EOSINOPHILS - ABS 0.08 K/uL 0.04-0.54 (CELLAVISION)(BEAKER) (test code = 2834) BANDS - ABS (CELLAVISION)(BEAKER) 1.04 K/uL 0.00-0.80 H (test code = 2840) ATYPICAL LYMPHOCYTES - ABS 0.08 K/uL 0.00-0.00 H (CELLAVISION)(BEAKER) (test code = 2858) TOTAL COUNTED (BEAKER) (test code 100 = 1351) MANUAL NRBC PER 100 CELLS 2 /100 WBC 0-0 H (BEAKER) (test code = 1353) SMUDGE CELLS (BEAKER) (test code Present = 1371) GIANT PLATELETS (BEAKER) (test Present code = 313) POLYCHROMATOPHILLIC RBCS(BEAKER) 2+ moderate (test code = 478) ANISOCYTOSIS (BEAKER) (test code 1+ few = 961) MICROCYTES (BEAKER) (test code = 1+ few 965) POIKILOCYTES (BEAKER) (test code 2+ moderate = 966) SCHISTOCYTES (BEAKER) (test code 1+ few = 765) ISIDORO CELLS (BEAKER) (test code = 1+ few 474) ARTIFACT (CELLAVISION)(BEAKER) Present (test code = 3432) PLATELET CONCENTRATION Adequate (CELLAVISION)(BEAKER) (test code = 3438) Received comment: User comments: Slide comments:U/S, RENAL, [id number] 09:04:00Reason for exam:->AKIFINAL REPORT Renal ultrasound Clinical History: Kidney injury Comparison: CTwith contrast from 07/17/2016 Discussion: Sonographic evaluation of [...] is no evidence for solid renal mass, hydron ephrosis, or shadowing calculi. The main renal artery [...] MDReport Verified Date/Time: 01/06/2018 09:04:28 Reading Location: [facility] [id number] Ultrasound Reading Room Electronically signedby: JEOVANY HILL MD on 01/06/2018 09:04 AMLACTIC ACID, VENOUS, WHOLE [id number] 07:15:00 Test Item Value Reference Range Interpretation Comments LACTATE BLOOD VENOUS (2) (BEAKER) 0.6 mmol/L 0.5-2.2 (test code = 2872) Effective 09/10/2015: Units/Reference Range ChangeNew: 0.5-2.2 mmol/L Previous: 5-20 mg/dLBASIC METABOLIC [id number] 05:48:00 Test Item Value Reference Range Interpretation Comments SODIUM (BEAKER) 137 meq/L 136-145 (test code = 381) POTASSIUM (BEAKER) 4.5 meq/L 3.5-5.1 (test code = 379) CHLORIDE (BEAKER) 103 meq/L 98-107 (test code = 382) CO2 (BEAKER) (test 20 meq/L 22-29 L code = 355) BLOOD UREA NITROGEN 63 mg/dL 7-21 H (BEAKER) (test code = 354) CREATININE (BEAKER) 11.06 mg/dL 0.57-1.25 H (test code = 358) GLUCOSE RANDOM 93 mg/dL 70-105 (BEAKER) (test code = 652) CALCIUM (BEAKER) 9.5 mg/dL 8.4-10.2 (test code = 697) EGFR (BEAKER) (test 6 mL/min/1.73 ESTIMAT ED GFR IS code = 1092) sq m NOT ACCURATE CREATININE CLEARANCE IN PREDICTING GLOMERULAR FILTRATION RATE . ESTIMATED GFR I S NOT APPLICABLE FOR DIALYSIS PATIEN TS. HEPATIC FUNCTION [id number] 05:45:00 Test Item Value Reference Range Interpretation Comments TOTAL PROTEIN (BEAKER) (test code = 7.2 gm/dL 6.0-8.3 770) ALBUMIN (BEAKER) (test code = 1145) 3.6 g/dL 3.5-5.0 BILIRUBIN TOTAL (BEAKER) (test code 0.3 mg/dL 0.2-1.2 = 377) BILIRUBIN DIRECT (BEAKER) (test 0.2 mg/dL 0.1-0.5 code = 706) ALKALINE PHOSPHATASE (BEAKER) (test 46 U/L 40-150 code = 346) AST (SGOT) (BEAKER) (test code = 41 U/L 5-34 H 353) ALT (SGPT) (BEAKER) (test code = 54 U/L 6-55 347) PROTHROMBIN [id number] 05:22:00 Test Item Value Reference Range Interpretation Comments PROTIME (BEAKER) (test code = 14.5 seconds 11.7-14.7 759) INR (BEAKER) (test code = 370) 1.1 <=5.9 RECOMMENDED COUMADIN/WARFARIN INR THERAPY RANGESSTANDARD DOSE: 2.0 - 3.0 Includes: PROPHYLAXIS forvenous thrombosis, systemic embolization; TREATMENT for venous thrombosis and/or pulmonary embolus.HIGH RISK: Target INR is 2.5-3.5 for patients with mechanical heart valves.ANG, TUNNELED DIALYSIS CATH INSERTION 2017-03-18 09:52:00Reason for exam:->Patient needs TDC replaced (previously removed for line holiday in patient withMSSA/MRSA bacteremia - cx now clear) FINAL REPORT Tunneled dialysis catheter insertion. History: Renal failure. Modality: Sonography and fluoroscopy. Sedation: Versed 2.0 mg and fentanyl 100 mcg was given intravenously for conscious sedation. Vital signs were monitored throughout the procedure by a nurse, and remained stable. Physician intra- service time was 20minutes. Computer Systems Administrator: Dimple. Outsole Scheduler: None. Approach: Right internal jugular vein Estimated [...] needle into the right atrium. A 4 [place] micropuncture sheath was placed. A subcutaneous tunnel was created in the right anterior chest wall by blunt dissection. A 19 cm 15.5 [place] Duraflow 2 catheter was brought through the [...] conscious sedation. Signed:Hari Flannery MDReport Verified Date/Time: 03/18/2017 09:52:18 Reading Location: [address] Body Reading Room ELLANEOUS LAB [id number] 14:09:00 Test Item Value Reference Range Interpretation Comments SCAN RESULT (test code = 5652995) Result comments: METHICILLIN-SUSCEPTIBLE STAPH. AUREUS (MSSA) DETECTED Staphylococcus aureus DETECTED MecA NOT DETECTED First line therapy: cefazolin or nafcillin (nafcillin preferred if Central Nervous System Infection) ID consultation strongly encouraged. Other organisms and resistance markers not c ontained in this PCR panel cannot be excluded and follow-up of traditional culture results is required. This sample was tested at the [facility] Clinical Microbiology Laboratory using the [employer] Blood Culture ID Panel. This test is FDA cleared for in vitro diagnostic use and has been verified and approved by the [facility] Clinical Microbiology laboratory for clinical use. Reference Range: Not DetectedBLOOD [id number] 11:00:00 Test Item Value Reference Range Interpretation Comments CULTURE (BEAKER) (test No growth in 5 days code = 1095) BLOOD [id number] 11:00:00 Test Item Value Reference Range Interpretation Comments CULTURE (BEAKER) (test No growth in 5 days code = 1095) BLOOD [id number] 18:00:00 Test Item Value Reference Range Interpretation Comments CULTURE (BEAKER) (test No growth in 5 days code = 1095) BLOOD [id number] 18:00:00 Test Item Value Reference Range Interpretation Comments CULTURE (BEAKER) (test No growth in 5 days code = 1095) BASIC METABOLIC [id number] 07:03:00 Test Item Value Reference Range Interpretation Comments SODIUM (BEAKER) 141 meq/L 136-145 (test code = 381) POTASSIUM (BEAKER) 3.8 meq/L 3.5-5.1 (test code = 379) CHLORIDE (BEAKER) 105 meq/L 98-107 (test code = 382) CO2 (BEAKER) (test 24 meq/L 22-29 code = 355) BLOOD UREA NITROGEN 39 mg/dL 7-21 H (BEAKER) (test code = 354) CREATININE (BEAKER) 7.06 mg/dL 0.57-1.25 H (test code = 358) GLUCOSE RANDOM 126 mg/dL 70-105 H (BEAKER) (test code = 652) CALCIUM (BEAKER) 8.9 mg/dL 8.4-10.2 (test code = 697) EGFR (BEAKER) (test 10 mL/min/1.73 ESTIMA ALEXANDRA GFR IS code = 1092) sq m NOT ACCURATE CREATININE CLEARANCE IN PREDICTING GLOMERULAR FILTRATION RATE . ESTIMATED GFR I S NOT APPLICABLE FOR DIALYSIS PATIEN TS. CBC (HEMOGRAM ONLY)2017-03-04 06:18:00 Test Item Value Reference Range Interpretation Comments WHITE BLOOD CELL COUNT (BEAKER) 6.5 K/ L 3.5-10.5 (test code = 775) RED BLOOD CELL COUNT (BEAKER) 3.15 M/ L 4.63-6.08 L (test code = 761) HEMOGLOBIN (BEAKER) (test code = 9.1 GM/DL 13.7-17.5 L 410) HEMATOCRIT (BEAKER) (test code = 29.1 % 40.1-51.0 L 411) MEAN CORPUSCULAR VOLUME (BEAKER) 92.4 fL 79.0-92.2 H (test code = 753) MEAN CORPUSCULAR HEMOGLOBIN 28.9 pg 25.7-32.2 (BEAKER) (test code = 751) MEAN CORPUSCULAR HEMOGLOBIN CONC 31.3 GM/DL 32.3-36.5 L (BEAKER) (test code = 752) RED CELL DISTRIBUTION WIDTH 15.8 % 11.6-14.4 H (BEAKER) (test code = 412) PLATELET COUNT (BEAKER) (test 295 K/CU MM 150-450 code = 756) MEAN PLATELET VOLUME (BEAKER) 10.3 fL 9.4-12.4 (test code = 754) NUCLEATED RED BLOOD CELLS 0 /100 WBC 0-0 (BEAKER) (test code = 413) [id number] 06:15:00 Test Item Value Reference Range Interpretation Comments PROTIME (BEAKER) (test code = 14.6 seconds 11.7-14.7 759) INR (BEAKER) (test code = 370) 1.2 <=5.9 PARTIAL THROMBOPLASTIN TIME 32.5 seconds 22.5-36.0 (BEAKER) (test code = 760) RECOMMENDED COUMADIN/WARFARIN INR THERAPY RANGESSTANDARD DOSE: 2.0 - 3.0 Includes: PROPHYLAXIS forvenous thrombosis, systemic embolization; TREATMENT for venous thrombosis and/or pulmonary embolus.HIGH RISK: Target INR is 2.5-3.5 for patients with mechanical heart valves.BASIC METABOLIC [id number] 06:38:00 Test Item Value Reference Range Interpretation Comments SODIUM (BEAKER) 141 meq/L 136-145 (test code = 381) POTASSIUM (BEAKER) 4.3 meq/L 3.5-5.1 (test code = 379) CHLORIDE (BEAKER) 109 meq/L 98-107 H (test code = 382) CO2 (BEAKER) (test 18 meq/L 22-29 L code = 355) BLOOD UREA NITROGEN 73 mg/dL 7-21 H (BEAKER) (test code = 354) CREATININE (BEAKER) 10.24 mg/dL 0.57-1.25 H (test code = 358) GLUCOSE RANDOM 92 mg/dL 70-105 (BEAKER) (test code = 652) CALCIUM (BEAKER) 8.8 mg/dL 8.4-10.2 (test code = 697) EGFR (BEAKER) (test 6 mL/min/1.73 ESTIMAT ED GFR IS code = 1092) sq m NOT ACCURATE CREATININE CLEARANCE IN PREDICTING GLOMERULAR FILTRATION RATE . ESTIMATED GFR I S NOT APPLICABLE FOR DIALYSIS PATIEN TS. [id number] 06:26:00 Test Item Value Reference Range Interpretation Comments PHOSPHORUS (BEAKER) (test code = 5.9 mg/dL 2.3-4.7 H 604) [id number] 06:26:00 Test Item Value Reference Range Interpretation Comments MAGNESIUM (BEAKER) (test code = 2.0 mg/dL 1.6-2.6 627) CBC W/PLT COUNT & AUTO [id number] 06:00:00 Test Item Value Reference Range Interpretation Comments WHITE BLOOD CELL COUNT (BEAKER) 7.1 K/ L 3.5-10.5 (test code = 775) RED BLOOD CELL COUNT (BEAKER) 2.89 M/ L 4.63-6.08 L (test code = 761) HEMOGLOBIN (BEAKER) (test code = 8.3 GM/DL 13.7-17.5 L 410) HEMATOCRIT (BEAKER) (test code = 26.6 % 40.1-51.0 L 411) MEAN CORPUSCULAR VOLUME (BEAKER) 92.0 fL 79.0-92.2 (test code = 753) MEAN CORPUSCULAR HEMOGLOBIN 28.7 pg 25.7-32.2 (BEAKER) (test code = 751) MEAN CORPUSCULAR HEMOGLOBIN CONC 31.2 GM/DL 32.3-36.5 L (BEAKER) (test code = 752) RED CELL DISTRIBUTION WIDTH 15.6 % 11.6-14.4 H (BEAKER) (test code = 412) PLATELET COUNT (BEAKER) (test 271 K/CU MM 150-450 code = 756) MEAN PLATELET VOLUME (BEAKER) 10.3 fL 9.4-12.4 (test code = 754) NUCLEATED RED BLOOD CELLS 0 /100 WBC 0-0 (BEAKER) (test code = 413) NEUTROPHILS RELATIVE PERCENT 61 % (BEAKER) (test code = 429) LYMPHOCYTES RELATIVE PERCENT 21 % (BEAKER) (test code = 430) MONOCYTES RELATIVE PERCENT 13 % (BEAKER) (test code = 431) EOSINOPHILS RELATIVE PERCENT 3 % (BEAKER) (test code = 432) BASOPHILS RELATIVE PERCENT 0 % (BEAKER) (test code = 437) NEUTROPHILS ABSOLUTE COUNT 4.34 K/ L 1.78-5.38 (BEAKER) (test code = 670) LYMPHOCYTES ABSOLUTE COUNT 1.51 K/ L 1.32-3.57 (BEAKER) (test code = 414) MONOCYTES ABSOLUTE COUNT (BEAKER) 0.92 K/ L 0.30-0.82 H (test code = 415) EOSINOPHILS ABSOLUTE COUNT 0.20 K/ L 0.04-0.54 (BEAKER) (test code = 416) BASOPHILS ABSOLUTE COUNT (BEAKER) 0.03 K/ L 0.01-0.08 (test code = 417) IMMATURE GRANULOCYTES-RELATIVE 1 % 0-1 PERCENT (BEAKER) (test code = 2801) [id number] 07:32:00 Test Item Value Reference Range Interpretation Comments FERRITIN (BEAKER) (test code = 1315 ng/mL 5-275 H 361) IRON, TIBC, % SAT. (WITHOUT FERRITIN)2017-03-02 07:21:00 Test Item Value Reference Range Interpretation Comments IRON (BEAKER) (test code = 547) 129 ug/dL 40-160 TOTAL IRON BINDING CAPACITY 189 ug/dL 250-450 L (BEAKER) (test code = 769) IRON % SATURATION (2) (BEAKER) 68 % 20-55 H (test code = 2590) [id number] 07:19:00 Test Item Value Reference Range Interpretation Comments PHOSPHORUS (BEAKER) (test code = 5.3 mg/dL 2.3-4.7 H 604) [id number] 07:19:00 Test Item Value Reference Range Interpretation Comments MAGNESIUM (BEAKER) (test code = 2.2 mg/dL 1.6-2.6 627) BASIC METABOLIC [id number] 07:19:00 Test Item Value Reference Range Interpretation Comments SODIUM (BEAKER) 140 meq/L 136-145 (test code = 381) POTASSIUM (BEAKER) 4.2 meq/L 3.5-5.1 (test code = 379) CHLORIDE (BEAKER) 108 meq/L 98-107 H (test code = 382) CO2 (BEAKER) (test 20 meq/L 22-29 L code = 355) BLOOD UREA NITROGEN 59 mg/dL 7-21 H (BEAKER) (test code = 354) CREATININE (BEAKER) 9.96 mg/dL 0.57-1.25 H (test code = 358) GLUCOSE RANDOM 103 mg/dL 70-105 (BEAKER) (test code = 652) CALCIUM (BEAKER) 8.9 mg/dL 8.4-10.2 (test code = 697) EGFR (BEAKER) (test 6 mL/min/1.73 ESTIMAT ED GFR IS code = 1092) sq m NOT ACCURATE CREATININE CLEARANCE IN PREDICTING GLOMERULAR FILTRATION RATE . ESTIMATED GFR I S NOT APPLICABLE FOR DIALYSIS PATIEN TS. CBC W/PLT COUNT & AUTO [id number] 06:51:00 Test Item Value Reference Range Interpretation Comments WHITE BLOOD CELL COUNT (BEAKER) 6.4 K/ L 3.5-10.5 (test code = 775) RED BLOOD CELL COUNT (BEAKER) 3.19 M/ L 4.63-6.08 L (test code = 761) HEMOGLOBIN (BEAKER) (test code = 9.1 GM/DL 13.7-17.5 L 410) HEMATOCRIT (BEAKER) (test code = 29.2 % 40.1-51.0 L 411) MEAN CORPUSCULAR VOLUME (BEAKER) 91.5 fL 79.0-92.2 (test code = 753) MEAN CORPUSCULAR HEMOGLOBIN 28.5 pg 25.7-32.2 (BEAKER) (test code = 751) MEAN CORPUSCULAR HEMOGLOBIN CONC 31.2 GM/DL 32.3-36.5 L (BEAKER) (test code = 752) RED CELL DISTRIBUTION WIDTH 15.4 % 11.6-14.4 H (BEAKER) (test code = 412) PLATELET COUNT (BEAKER) (test 257 K/CU MM 150-450 code = 756) MEAN PLATELET VOLUME (BEAKER) 10.9 fL 9.4-12.4 (test code = 754) NUCLEATED RED BLOOD CELLS 0 /100 WBC 0-0 (BEAKER) (test code = 413) NEUTROPHILS RELATIVE PERCENT 56 % (BEAKER) (test code = 429) LYMPHOCYTES RELATIVE PERCENT 27 % (BEAKER) (test code = 430) MONOCYTES RELATIVE PERCENT 13 % (BEAKER) (test code = 431) EOSINOPHILS RELATIVE PERCENT 3 % (BEAKER) (test code = 432) BASOPHILS RELATIVE PERCENT 1 % (BEAKER) (test code = 437) NEUTROPHILS ABSOLUTE COUNT 3.57 K/ L 1.78-5.38 (BEAKER) (test code = 670) LYMPHOCYTES ABSOLUTE COUNT 1.73 K/ L 1.32-3.57 (BEAKER) (test code = 414) MONOCYTES ABSOLUTE COUNT (BEAKER) 0.80 K/ L 0.30-0.82 (test code = 415) EOSINOPHILS ABSOLUTE COUNT 0.19 K/ L 0.04-0.54 (BEAKER) (test code = 416) BASOPHILS ABSOLUTE COUNT (BEAKER) 0.04 K/ L 0.01-0.08 (test code = 417) IMMATURE GRANULOCYTES-RELATIVE 1 % 0-1 PERCENT (BEAKER) (test code = 2801) CATHETER TIP [id number] 16:52:00 Test Item Value Reference Range Interpretation Comments CULTURE (BEAKER) A <15 [place] s On Direct (test code = 1095) Plate Coa gulase negative Staphylococcus CATHETER TIP [id number] 16:49:00 Test Item Value Reference Range Interpretation Comments CULTURE (BEAKER) (test code = 1095) No growth BLOOD [id number] 08:10:00 Test Item Value Reference Range Interpretation Comments CULTURE A From Aerobic An d (BEAKER) (test Anaerobic Bot tles Same code = 1095) organism has be en isolated from cultures(s) of the same body site and collection date . Repeat identification and susceptibility testing performed only after consultation wi th the clinical microb iology laboratory.Refe r to previous cultur e ofStaphylococcu s aureus GRAM STAIN From aerobic and RESULT (BEAKER) anaerobic (test code = bottles: gram 1123) positive cocci in clusters BLOOD [id number] 08:08:00 Test Item Value Reference Interpretation Comments Range CULTURE (BEAKER) (test code = 1095) Clindamycin (test S code = 10) Erythromycin (test S code = 4) Linezolid (test code S = 40) Oxacillin (test code S = 14) Rifampin (test code = S 43) Tetracycline (test S code = 2) Trimethoprim + S Sulfamethoxazole (test code = 47) Vancomycin (test code S = 13) CULTURE (BEAKER) METHICILLIN A From Anaero bic (test code = 1095) RESISTANT Bottle On ly STAPHYLOCOCCUS Staphylococcu s AUREUS aureus Clindamycin (test R code = 10) Erythromycin (test R code = 4) Linezolid (test code S = 40) Nitrofurantoin (test S code = 23) Oxacillin (test code R = 14) Rifampin (test code = S 43) Tetracycline (test S code = 2) Trimethoprim + S Sulfamethoxazole (test code = 47) Vancomycin (test code S = 13) CULTURE (BEAKER) A From Aerobi c (test code = 1095) Bottle On ly Methicillin resistant Staphylococcus aureus GRAM STAIN RESULT From aerobic and (BEAKER) (test code = anaerobic bottles: 1123) gram positive cocci in clusters METHICILLIN-SUSCEPTIBLE STAPH. AUREUS (MSSA) DETECTEDStaphylococcus aureus DETECTED MecA NOT DETECTEDFirst line therapy: cefazolin or nafcillin (nafcillin preferred if Central Nervous System Infection)ID consultation strongly encouraged. Other organisms and resistance markers not contained in this PCR panel cannot be excluded and follow-up of traditional culture results is required. This sample wastested at the [facility] Clinical Microbiology Laboratory using the [employer] Blood Culture ID Panel. This test is FDA cleared for in vitro diagnostic use and has been verified and approved by the [facility] Clinical Microbiology laboratory for clinical use. Reference Range: Not DetectedBASIC METABOLIC [id number] 07:05:00 Test Item Value Reference Range Interpretation Comments SODIUM (BEAKER) 141 meq/L 136-145 (test code = 381) POTASSIUM (BEAKER) 4.2 meq/L 3.5-5.1 (test code = 379) CHLORIDE (BEAKER) 108 meq/L 98-107 H (test code = 382) CO2 (BEAKER) (test 19 meq/L 22-29 L code = 355) BLOOD UREA NITROGEN 54 mg/dL 7-21 H (BEAKER) (test code = 354) CREATININE (BEAKER) 9.62 mg/dL 0.57-1.25 H (test code = 358) GLUCOSE RANDOM 108 mg/dL 70-105 H (BEAKER) (test code = 652) CALCIUM (BEAKER) 9.0 mg/dL 8.4-10.2 (test code = 697) EGFR (BEAKER) (test 7 mL/min/1.73 ESTIMAT ED GFR IS code = 1092) sq m NOT ACCURATE CREATININE CLEARANCE IN PREDICTING GLOMERULAR FILTRATION RATE . ESTIMATED GFR I S NOT APPLICABLE FOR DIALYSIS PATIEN TS. [id number] 07:01:00 Test Item Value Reference Range Interpretation Comments PHOSPHORUS (BEAKER) (test code = 4.8 mg/dL 2.3-4.7 H 604) [id number] 07:01:00 Test Item Value Reference Range Interpretation Comments MAGNESIUM (BEAKER) (test code = 2.2 mg/dL 1.6-2.6 627) CBC W/PLT COUNT & AUTO [id number] 06:39:00 Test Item Value Reference Range Interpretation Comments WHITE BLOOD CELL COUNT (BEAKER) 5.6 K/ L 3.5-10.5 (test code = 775) RED BLOOD CELL COUNT (BEAKER) 3.27 M/ L 4.63-6.08 L (test code = 761) HEMOGLOBIN (BEAKER) (test code = 9.1 GM/DL 13.7-17.5 L 410) HEMATOCRIT (BEAKER) (test code = 30.2 % 40.1-51.0 L 411) MEAN CORPUSCULAR VOLUME (BEAKER) 92.4 fL 79.0-92.2 H (test code = 753) MEAN CORPUSCULAR HEMOGLOBIN 27.8 pg 25.7-32.2 (BEAKER) (test code = 751) MEAN CORPUSCULAR HEMOGLOBIN CONC 30.1 GM/DL 32.3-36.5 L (BEAKER) (test code = 752) RED CELL DISTRIBUTION WIDTH 15.5 % 11.6-14.4 H (BEAKER) (test code = 412) PLATELET COUNT (BEAKER) (test 241 K/CU MM 150-450 code = 756) MEAN PLATELET VOLUME (BEAKER) 10.9 fL 9.4-12.4 (test code = 754) NUCLEATED RED BLOOD CELLS 0 /100 WBC 0-0 (BEAKER) (test code = 413) NEUTROPHILS RELATIVE PERCENT 57 % (BEAKER) (test code = 429) LYMPHOCYTES RELATIVE PERCENT 26 % (BEAKER) (test code = 430) MONOCYTES RELATIVE PERCENT 13 % (BEAKER) (test code = 431) EOSINOPHILS RELATIVE PERCENT 4 % (BEAKER) (test code = 432) BASOPHILS RELATIVE PERCENT 0 % (BEAKER) (test code = 437) NEUTROPHILS ABSOLUTE COUNT 3.19 K/ L 1.78-5.38 (BEAKER) (test code = 670) LYMPHOCYTES ABSOLUTE COUNT 1.43 K/ L 1.32-3.57 (BEAKER) (test code = 414) MONOCYTES ABSOLUTE COUNT (BEAKER) 0.72 K/ L 0.30-0.82 (test code = 415) EOSINOPHILS ABSOLUTE COUNT 0.20 K/ L 0.04-0.54 (BEAKER) (test code = 416) BASOPHILS ABSOLUTE COUNT (BEAKER) 0.02 K/ L 0.01-0.08 (test code = 417) IMMATURE GRANULOCYTES-RELATIVE 1 % 0-1 PERCENT (BEAKER) (test code = 2801) [id number] 23:09:00 Test Item Value Reference Range Interpretation Comments SODIUM (BEAKER) (test code = 381) 141 meq/L 136-145 POTASSIUM (BEAKER) (test code = 4.2 meq/L 3.5-5.1 379) CHLORIDE (BEAKER) (test code = 382) 106 meq/L 98-107 CO2 (BEAKER) (test code = 355) 22 meq/L 22-29 BASIC METABOLIC [id number] 13:19:00 Test Item Value Reference Range Interpretation Comments SODIUM (BEAKER) 139 meq/L 136-145 (test code = 381) POTASSIUM (BEAKER) 4.1 meq/L 3.5-5.1 (test code = 379) CHLORIDE (BEAKER) 105 meq/L 98-107 (test code = 382) CO2 (BEAKER) (test 26 meq/L 22-29 code = 355) BLOOD UREA NITROGEN 43 mg/dL 7-21 H (BEAKER) (test code = 354) CREATININE (BEAKER) 8.36 mg/dL 0.57-1.25 H (test code = 358) GLUCOSE RANDOM 92 mg/dL 70-105 (BEAKER) (test code = 652) CALCIUM (BEAKER) 9.0 mg/dL 8.4-10.2 (test code = 697) EGFR (BEAKER) (test 8 mL/min/1.73 ESTIMAT ED GFR IS code = 1092) sq m NOT ACCURATE CREATININE CLEARANCE IN PREDICTING GLOMERULAR FILTRATION RATE . ESTIMATED GFR I S NOT APPLICABLE FOR DIALYSIS PATIEN TS. [id number] 13:11:00 Test Item Value Reference Range Interpretation Comments PHOSPHORUS (BEAKER) (test code = 3.6 mg/dL 2.3-4.7 604) [id number] 13:11:00 Test Item Value Reference Range Interpretation Comments MAGNESIUM (BEAKER) (test code = 2.1 mg/dL 1.6-2.6 627) CBC W/PLT COUNT & AUTO [id number] 12:55:00 Test Item Value Reference Range Interpretation Comments WHITE BLOOD CELL COUNT (BEAKER) 5.6 K/ L 3.5-10.5 (test code = 775) RED BLOOD CELL COUNT (BEAKER) 3.06 M/ L 4.63-6.08 L (test code = 761) HEMOGLOBIN (BEAKER) (test code = 8.5 GM/DL 13.7-17.5 L 410) HEMATOCRIT (BEAKER) (test code = 28.1 % 40.1-51.0 L 411) MEAN CORPUSCULAR VOLUME (BEAKER) 91.8 fL 79.0-92.2 (test code = 753) MEAN CORPUSCULAR HEMOGLOBIN 27.8 pg 25.7-32.2 (BEAKER) (test code = 751) MEAN CORPUSCULAR HEMOGLOBIN CONC 30.2 GM/DL 32.3-36.5 L (BEAKER) (test code = 752) RED CELL DISTRIBUTION WIDTH 15.7 % 11.6-14.4 H (BEAKER) (test code = 412) PLATELET COUNT (BEAKER) (test 175 K/CU MM 150-450 code = 756) MEAN PLATELET VOLUME (BEAKER) 10.5 fL 9.4-12.4 (test code = 754) NUCLEATED RED BLOOD CELLS 0 /100 WBC 0-0 (BEAKER) (test code = 413) NEUTROPHILS RELATIVE PERCENT 52 % (BEAKER) (test code = 429) LYMPHOCYTES RELATIVE PERCENT 23 % (BEAKER) (test code = 430) MONOCYTES RELATIVE PERCENT 22 % (BEAKER) (test code = 431) EOSINOPHILS RELATIVE PERCENT 3 % (BEAKER) (test code = 432) BASOPHILS RELATIVE PERCENT 0 % (BEAKER) (test code = 437) NEUTROPHILS ABSOLUTE COUNT 2.90 K/ L 1.78-5.38 (BEAKER) (test code = 670) LYMPHOCYTES ABSOLUTE COUNT 1.28 K/ L 1.32-3.57 L (BEAKER) (test code = 414) MONOCYTES ABSOLUTE COUNT (BEAKER) 1.23 K/ L 0.30-0.82 H (test code = 415) EOSINOPHILS ABSOLUTE COUNT 0.14 K/ L 0.04-0.54 (BEAKER) (test code = 416) BASOPHILS ABSOLUTE COUNT (BEAKER) 0.02 K/ L 0.01-0.08 (test code = 417) IMMATURE GRANULOCYTES-RELATIVE 0 % 0-1 PERCENT (BEAKER) (test code = 2801) ANG, REMOVAL OF TUNNELED CVC [id number] 12:44:00Reason for exam:->ESRD bacteremia concern for line infection Reason for exam:->Please remove pe rmacath, portacath,FINAL REPORT Exam: Tunnel dialysis catheter and [...] followed including cap, mask, sterile gown, sterile gloves , sterile sheet, hand hygiene and 2% chlorhexidine [...] well without any adverse reactions. He left thewvpartment in stable condition. Complication: None immediate Impression: 1. Left internal jugular chest port and right internal jugular tunneled dialysis catheter removal as described. Signed: Eusebia Brooks MDReport Verified Date/Time: 02/27/2017 12:44:21 Reading Location: [place] [id number] [facility] BodyReading Room VANCOMYCIN LEVEL, [id number] 05:46:00 Test Item Value Reference Range Interpretation Comments VANCOMYCIN RANDOM (BEAKER) (test 20.4 ug/mL code = 523) Reference Range: No NormalsHEPATITIS B SURFACE [id number] 15:33:00 Test Item Value Reference Range Interpretation Comments HEPATITIS B SURFACE ANTIGEN (2) Nonreactive Nonreactive (BEAKER) (test code = 2585) CBC W/PLT COUNT & AUTO [id number] 07:12:00 Test Item Value Reference Range Interpretation Comments WHITE BLOOD CELL COUNT (BEAKER) 13.9 K/ L 3.5-10.5 H (test code = 775) RED BLOOD CELL COUNT (BEAKER) 3.00 M/ L 4.63-6.08 L (test code = 761) HEMOGLOBIN (BEAKER) (test code = 8.6 GM/DL 13.7-17.5 L 410) HEMATOCRIT (BEAKER) (test code = 27.4 % 40.1-51.0 L 411) MEAN CORPUSCULAR VOLUME (BEAKER) 91.3 fL 79.0-92.2 (test code = 753) MEAN CORPUSCULAR HEMOGLOBIN 28.7 pg 25.7-32.2 (BEAKER) (test code = 751) MEAN CORPUSCULAR HEMOGLOBIN CONC 31.4 GM/DL 32.3-36.5 L (BEAKER) (test code = 752) RED CELL DISTRIBUTION WIDTH 15.9 % 11.6-14.4 H (BEAKER) (test code = 412) PLATELET COUNT (BEAKER) (test 154 K/CU MM 150-450 code = 756) MEAN PLATELET VOLUME (BEAKER) 10.9 fL 9.4-12.4 (test code = 754) NUCLEATED RED BLOOD CELLS 0 /100 WBC 0-0 (BEAKER) (test code = 413) NEUTROPHILS RELATIVE PERCENT 78 % (BEAKER) (test code = 429) LYMPHOCYTES RELATIVE PERCENT 9 % (BEAKER) (test code = 430) MONOCYTES RELATIVE PERCENT 12 % (BEAKER) (test code = 431) EOSINOPHILS RELATIVE PERCENT 1 % (BEAKER) (test code = 432) BASOPHILS RELATIVE PERCENT 0 % (BEAKER) (test code = 437) NEUTROPHILS ABSOLUTE COUNT 10.84 K/ L 1.78-5.38 H (BEAKER) (test code = 670) LYMPHOCYTES ABSOLUTE COUNT 1.22 K/ L 1.32-3.57 L (BEAKER) (test code = 414) MONOCYTES ABSOLUTE COUNT (BEAKER) 1.67 K/ L 0.30-0.82 H (test code = 415) EOSINOPHILS ABSOLUTE COUNT 0.08 K/ L 0.04-0.54 (BEAKER) (test code = 416) BASOPHILS ABSOLUTE COUNT (BEAKER) 0.02 K/ L 0.01-0.08 (test code = 417) IMMATURE GRANULOCYTES-RELATIVE 1 % 0-1 PERCENT (BEAKER) (test code = 2801) BASIC METABOLIC [id number] 06:47:00 Test Item Value Reference Range Interpretation Comments SODIUM (BEAKER) 136 meq/L 136-145 (test code = 381) POTASSIUM (BEAKER) 4.5 meq/L 3.5-5.1 (test code = 379) CHLORIDE (BEAKER) 106 meq/L 98-107 (test code = 382) CO2 (BEAKER) (test 21 meq/L 22-29 L code = 355) BLOOD UREA NITROGEN 50 mg/dL 7-21 H (BEAKER) (test code = 354) CREATININE (BEAKER) 8.92 mg/dL 0.57-1.25 H (test code = 358) GLUCOSE RANDOM 92 mg/dL 70-105 (BEAKER) (test code = 652) CALCIUM (BEAKER) 8.7 mg/dL 8.4-10.2 (test code = 697) EGFR (BEAKER) (test 7 mL/min/1.73 ESTIMAT ED GFR IS code = 1092) sq m NOT ACCURATE CREATININE CLEARANCE IN PREDICTING GLOMERULAR FILTRATION RATE . ESTIMATED GFR I S NOT APPLICABLE FOR DIALYSIS PATIEN TS. [id number] 06:43:00 Test Item Value Reference Range Interpretation Comments PHOSPHORUS (BEAKER) (test code = 3.0 mg/dL 2.3-4.7 604) PROTHROMBIN [id number] 06:07:00 Test Item Value Reference Range Interpretation Comments PROTIME (BEAKER) (test code = 15.2 seconds 11.7-14.7 H 759) INR (BEAKER) (test code = 370) 1.2 <=5.9 RECOMMENDED COUMADIN/WARFARIN INR THERAPY RANGESSTANDARD DOSE: 2.0 - 3.0 Includes: PROPHYLAXIS forvenous thrombosis, systemic embolization; TREATMENT for venous thrombosis and/or pulmonary embolus.HIGH RISK: Target INR is 2.5-3.5 for patients with mechanical heart valves.ANG, TUNNELED DIALYSIS CATH INSERTION 2017-01-26 07:52:00FINAL REPORT Tunneled dialysis catheter insertion, 01/25/2017. History: Renal failure. Modality: Sonography and fluoroscopy. Sedation: Versed 1.0 mg and fentanyl 100 mcg was given intravenously for conscious sedation. Vital signs were monitored throughout the procedure by a nurse, and remained stable. Physician intra-servicetime was 20 minutes. Computer Systems Administrator: Dimple. Outsole Scheduler: None. Approach: Right internal jugular vein Estimated [...] jugular vein, which was punctured under direct real- time ultrasound guidance with a micropuncture needle. An ultrasound image was saved to PACS. A 0.018 inch wire was placed through the needle into the right atrium. A 4 [place] micropuncture sheath was placed. A subcutaneous tunnel was created in the right anterior chest wall by blunt dissection. A 19 cm 15.5 [place] Duraflow 2 catheter was brought through the [...] guidance and conscious sedation. Signed: Hari Flannery MDReport Verified Date/Time: 01/26/2017 07:52:45 Reading Location: [address] Body Reading Room POCT- GLUCOSE [id number] 01:07:00 Test Item Value Reference Range Interpretation Comments POC-GLUCOSE METER 179 mg/dL 70-110 H TESTED AT [facility] [address] ([facility]) (test code = [place] 1538) [address] BASIC METABOLIC [id number] 21:57:00 Test Item Value Reference Range Interpretation Comments SODIUM (BEAKER) 139 meq/L 136-145 (test code = 381) POTASSIUM (BEAKER) 3.9 meq/L 3.5-5.1 (test code = 379) CHLORIDE (BEAKER) 105 meq/L 98-107 (test code = 382) CO2 (BEAKER) (test 21 meq/L 22-29 L code = 355) BLOOD UREA NITROGEN 33 mg/dL 7-21 H (BEAKER) (test code = 354) CREATININE (BEAKER) 6.75 mg/dL 0.57-1.25 H (test code = 358) GLUCOSE RANDOM 166 mg/dL 70-105 H (BEAKER) (test code = 652) CALCIUM (BEAKER) 9.4 mg/dL 8.4-10.2 (test code = 697) EGFR (BEAKER) (test 10 mL/min/1.73 ESTIMA ALEXANDRA GFR IS code = 1092) sq m NOT ACCURATE CREATININE CLEARANCE IN PREDICTING GLOMERULAR FILTRATION RATE . ESTIMATED GFR I S NOT APPLICABLE FOR DIALYSIS PATIEN TS. CREATINE KINASE (CK), TOTAL AND [id number] 21:52:00 Test Item Value Reference Range Interpretation Comments CREATINE KINASE TOTAL (BEAKER) 159 U/L 29-200 (test code = 380) CREATINE KINASE-MB (BEAKER) (test 0.8 ng/mL 0.0-6.6 code = 750) CREATINE KINASE-MB INDEX (BEAKER) 0.5 % (test code = 395) CK-MB Reference Range:<6.7 Normal6.7-10.0 Borderline>10.0 AbnormalRAD, CHEST, 1 VIEW, NON [id number] 21:52:00Reason for exam:- >CHEST PAINShould this be performed at the bedside?->YesFINAL [...] port that terminates in the low SVC. Signed:Liz Thompson MDReport Verified Date/Time: 01/25/2017 21:52:27 Reading Location: [facility] [id number] Consult Reading Room TROPONIN [id number] 21:27:00 Test Item Value Reference Range Interpretation Comments TROPONIN I (BEAKER) (test code = 0.01 ng/mL 0.00-0.03 397) Troponin I (TnI) levels must be interpreted [...] and persistent tachyarrhythmia.CBC W/PLT COUNT & AUTO DIFFERENTIAL 2017-01-25 21:06:00 Test Item Value Reference Range Interpretation Comments WHITE BLOOD CELL COUNT (BEAKER) 9.3 K/ L 3.5-10.5 (test code = 775) RED BLOOD CELL COUNT (BEAKER) 3.86 M/ L 4.63-6.08 L (test code = 761) HEMOGLOBIN (BEAKER) (test code = 10.8 GM/DL 13.7-17.5 L 410) HEMATOCRIT (BEAKER) (test code = 34.4 % 40.1-51.0 L 411) MEAN CORPUSCULAR VOLUME (BEAKER) 89.1 fL 79.0-92.2 (test code = 753) MEAN CORPUSCULAR HEMOGLOBIN 28.0 pg 25.7-32.2 (BEAKER) (test code = 751) MEAN CORPUSCULAR HEMOGLOBIN CONC 31.4 GM/DL 32.3-36.5 L (BEAKER) (test code = 752) RED CELL DISTRIBUTION WIDTH 15.1 % 11.6-14.4 H (BEAKER) (test code = 412) PLATELET COUNT (BEAKER) (test 238 K/CU MM 150-450 code = 756) MEAN PLATELET VOLUME (BEAKER) 10.3 fL 9.4-12.4 (test code = 754) NUCLEATED RED BLOOD CELLS 0 /100 WBC 0-0 (BEAKER) (test code = 413) NEUTROPHILS RELATIVE PERCENT 71 % (BEAKER) (test code = 429) LYMPHOCYTES RELATIVE PERCENT 16 % (BEAKER) (test code = 430) MONOCYTES RELATIVE PERCENT 10 % (BEAKER) (test code = 431) EOSINOPHILS RELATIVE PERCENT 1 % (BEAKER) (test code = 432) BASOPHILS RELATIVE PERCENT 0 % (BEAKER) (test code = 437) NEUTROPHILS ABSOLUTE COUNT 6.59 K/ L 1.78-5.38 H (BEAKER) (test code = 670) LYMPHOCYTES ABSOLUTE COUNT 1.52 K/ L 1.32-3.57 (BEAKER) (test code = 414) MONOCYTES ABSOLUTE COUNT (BEAKER) 0.88 K/ L 0.30-0.82 H (test code = 415) EOSINOPHILS ABSOLUTE COUNT 0.10 K/ L 0.04-0.54 (BEAKER) (test code = 416) BASOPHILS ABSOLUTE COUNT (BEAKER) 0.03 K/ L 0.01-0.08 (test code = 417) IMMATURE GRANULOCYTES-RELATIVE 2 % 0-1 H PERCENT (BEAKER) (test code = 2801) HEPATITIS B SURFACE [id number] 15:55:00 Test Item Value Reference Range Interpretation Comments HEPATITIS B SURFACE ANTIGEN (2) Nonreactive Nonreactive (BEAKER) (test code = 2585) BASIC METABOLIC [id number] 07:30:00 Test Item Value Reference Range Interpretation Comments SODIUM (BEAKER) 138 meq/L 136-145 (test code = 381) POTASSIUM (BEAKER) 4.8 meq/L 3.5-5.1 (test code = 379) CHLORIDE (BEAKER) 109 meq/L 98-107 H (test code = 382) CO2 (BEAKER) (test 17 meq/L 22-29 L code = 355) BLOOD UREA NITROGEN 75 mg/dL 7-21 H (BEAKER) (test code = 354) CREATININE (BEAKER) 11.02 mg/dL 0.57-1.25 H (test code = 358) GLUCOSE RANDOM 99 mg/dL 70-105 (BEAKER) (test code = 652) CALCIUM (BEAKER) 8.6 mg/dL 8.4-10.2 (test code = 697) EGFR (BEAKER) (test 6 mL/min/1.73 ESTIMAT ED GFR IS code = 1092) sq m NOT ACCURATE CREATININE CLEARANCE IN PREDICTING GLOMERULAR FILTRATION RATE . ESTIMATED GFR I S NOT APPLICABLE FOR DIALYSIS PATIEN TS. [id number] 07:18:00 Test Item Value Reference Range Interpretation Comments PHOSPHORUS (BEAKER) (test code = 5.9 mg/dL 2.3-4.7 H 604) [id number] 07:18:00 Test Item Value Reference Range Interpretation Comments MAGNESIUM (BEAKER) (test code = 2.2 mg/dL 1.6-2.6 627) PROTHROMBIN [id number] 06:43:00 Test Item Value Reference Range Interpretation Comments PROTIME (BEAKER) (test code = 13.6 seconds 11.7-14.7 759) INR (BEAKER) (test code = 370) 1.1 <=5.9 RECOMMENDED COUMADIN/WARFARIN INR THERAPY RANGESSTANDARD DOSE: 2.0 - 3.0 Includes: PROPHYLAXIS forvenous thrombosis, systemic embolization; TREATMENT for venous thrombosis and/or pulmonary embolus.HIGH RISK: Target INR is 2.5-3.5 for patients with mechanical heart valves.CBC W/PLT COUNT & AUTO DIFFERENTIAL 2017-01-25 06:42:00 Test Item Value Reference Range Interpretation Comments WHITE BLOOD CELL COUNT (BEAKER) 8.4 K/ L 3.5-10.5 (test code = 775) RED BLOOD CELL COUNT (BEAKER) 3.48 M/ L 4.63-6.08 L (test code = 761) HEMOGLOBIN (BEAKER) (test code = 9.8 GM/DL 13.7-17.5 L 410) HEMATOCRIT (BEAKER) (test code = 31.4 % 40.1-51.0 L 411) MEAN CORPUSCULAR VOLUME (BEAKER) 90.2 fL 79.0-92.2 (test code = 753) MEAN CORPUSCULAR HEMOGLOBIN 28.2 pg 25.7-32.2 (BEAKER) (test code = 751) MEAN CORPUSCULAR HEMOGLOBIN CONC 31.2 GM/DL 32.3-36.5 L (BEAKER) (test code = 752) RED CELL DISTRIBUTION WIDTH 15.1 % 11.6-14.4 H (BEAKER) (test code = 412) PLATELET COUNT (BEAKER) (test 240 K/CU MM 150-450 code = 756) MEAN PLATELET VOLUME (BEAKER) 10.9 fL 9.4-12.4 (test code = 754) NUCLEATED RED BLOOD CELLS 0 /100 WBC 0-0 (BEAKER) (test code = 413) NEUTROPHILS RELATIVE PERCENT 67 % (BEAKER) (test code = 429) LYMPHOCYTES RELATIVE PERCENT 18 % (BEAKER) (test code = 430) MONOCYTES RELATIVE PERCENT 12 % (BEAKER) (test code = 431) EOSINOPHILS RELATIVE PERCENT 2 % (BEAKER) (test code = 432) BASOPHILS RELATIVE PERCENT 0 % (BEAKER) (test code = 437) NEUTROPHILS ABSOLUTE COUNT 5.66 K/ L 1.78-5.38 H (BEAKER) (test code = 670) LYMPHOCYTES ABSOLUTE COUNT 1.50 K/ L 1.32-3.57 (BEAKER) (test code = 414) MONOCYTES ABSOLUTE COUNT (BEAKER) 1.03 K/ L 0.30-0.82 H (test code = 415) EOSINOPHILS ABSOLUTE COUNT 0.13 K/ L 0.04-0.54 (BEAKER) (test code = 416) BASOPHILS ABSOLUTE COUNT (BEAKER) 0.02 K/ L 0.01-0.08 (test code = 417) IMMATURE GRANULOCYTES-RELATIVE 1 % 0-1 PERCENT (BEAKER) (test code = 2801) CBC W/PLT COUNT & AUTO [id number] 14:36:00 Test Item Value Reference Range Interpretation Comments WHITE BLOOD CELL COUNT (BEAKER) 9.4 K/ L 4.0-10.0 (test code = 775) RED BLOOD CELL COUNT (BEAKER) 2.90 M/ L 4.20-5.80 L (test code = 761) HEMOGLOBIN (BEAKER) (test code = 8.5 GM/DL 13.0-16.8 L 410) HEMATOCRIT (BEAKER) (test code = 28.6 % 40.0-50.0 L 411) MEAN CORPUSCULAR VOLUME (BEAKER) 98.5 fL 82.0-98.0 H (test code = 753) MEAN CORPUSCULAR HEMOGLOBIN 29.2 pg 27.0-33.0 (BEAKER) (test code = 751) MEAN CORPUSCULAR HEMOGLOBIN CONC 29.7 GM/DL 32.0-36.0 L (BEAKER) (test code = 752) RED CELL DISTRIBUTION WIDTH 16.2 % 10.3-14.2 H (BEAKER) (test code = 412) PLATELET COUNT (BEAKER) (test 238 K/CU MM 150-430 code = 756) MEAN PLATELET VOLUME (BEAKER) 8.7 fL 6.5-10.5 (test code = 754) NUCLEATED RED BLOOD CELLS 1 /100 WBC 0-0 H (BEAKER) (test code = 413) NEUTROPHILS RELATIVE PERCENT 94 % (BEAKER) (test code = 429) LYMPHOCYTES RELATIVE PERCENT 3 % (BEAKER) (test code = 430) MONOCYTES RELATIVE PERCENT 2 % (BEAKER) (test code = 431) EOSINOPHILS RELATIVE PERCENT 0 % (BEAKER) (test code = 432) BASOPHILS RELATIVE PERCENT 0 % (BEAKER) (test code = 437) NEUTROPHILS ABSOLUTE COUNT 8.82 K/ L 1.80-8.00 H (BEAKER) (test code = 670) LYMPHOCYTES ABSOLUTE COUNT 0.31 K/ L 1.48-4.50 L (BEAKER) (test code = 414) MONOCYTES ABSOLUTE COUNT (BEAKER) 0.23 K/ L 0.00-1.30 (test code = 415) EOSINOPHILS ABSOLUTE COUNT 0.02 K/ L 0.00-0.50 (BEAKER) (test code = 416) BASOPHILS ABSOLUTE COUNT (BEAKER) 0.00 K/ L 0.00-0.20 (test code = 417) 0.00(MANUAL DIFFERENTIAL)2016-08-28 14:36:00 Test Item Value Reference Range Interpretation Comments TOTAL COUNTED (BEAKER) (test code = 1351) WBC MORPHOLOGY (BEAKER) (test Normal code = 487) GIANT PLATELETS (BEAKER) (test Present code = 313) SCHISTOCYTES (BEAKER) (test code 1+ few = 765) ACANTHOCYTES (BEAKER) (test code 1+ few = 471) ANISOCYTOSIS (BEAKER) (test code 2+ moderate = 961) HYPOCHROMIA (BEAKER) (test code = 1+ few 963) MACROCYTES (BEAKER) (test code = 2+ moderate 964) MICROCYTES (BEAKER) (test code = 1+ few 965) OVALOCYTES (BEAKER) (test code = 1+ few 477) POIKILOCYTES (BEAKER) (test code 2+ moderate = 966) POLYCHROMATOPHILLIC RBCS(BEAKER) 1+ few (test code = 478) TARGET CELLS (BEAKER) (test code 1+ few = 480) BASIC METABOLIC [id number] 07:18:00 Test Item Value Reference Range Interpretation Comments SODIUM (BEAKER) 141 meq/L 136-145 (test code = 381) POTASSIUM (BEAKER) 4.7 meq/L 3.5-5.1 (test code = 379) CHLORIDE (BEAKER) 107 meq/L 98-107 (test code = 382) CO2 (BEAKER) (test 20 meq/L 22-29 L code = 355) BLOOD UREA NITROGEN 60 mg/dL 7-21 H (BEAKER) (test code = 354) CREATININE (BEAKER) 7.34 mg/dL 0.57-1.25 H (test code = 358) GLUCOSE RANDOM 161 mg/dL 70-105 H (BEAKER) (test code = 652) CALCIUM (BEAKER) 8.5 mg/dL 8.4-10.2 (test code = 697) EGFR (BEAKER) (test 9 mL/min/1.73 ESTIMAT ED GFR IS code = 1092) sq m NOT ACCURATE CREATININE CLEARANCE IN PREDICTING GLOMERULAR FILTRATION RATE . ESTIMATED GFR I S NOT APPLICABLE FOR DIALYSIS PATIEN TS. [id number] 07:11:00 Test Item Value Reference Range Interpretation Comments PHOSPHORUS (BEAKER) (test code = 3.7 mg/dL 2.3-4.7 604) CBC W/PLT COUNT & AUTO [id number] 11:27:00 Test Item Value Reference Range Interpretation Comments WHITE BLOOD CELL COUNT (BEAKER) 10.9 K/ L 4.0-10.0 H (test code = 775) RED BLOOD CELL COUNT (BEAKER) 3.06 M/ L 4.20-5.80 L (test code = 761) HEMOGLOBIN (BEAKER) (test code = 9.3 GM/DL 13.0-16.8 L 410) HEMATOCRIT (BEAKER) (test code = 30.3 % 40.0-50.0 L 411) MEAN CORPUSCULAR VOLUME (BEAKER) 99.0 fL 82.0-98.0 H (test code = 753) MEAN CORPUSCULAR HEMOGLOBIN 30.5 pg 27.0-33.0 (BEAKER) (test code = 751) MEAN CORPUSCULAR HEMOGLOBIN CONC 30.8 GM/DL 32.0-36.0 L (BEAKER) (test code = 752) RED CELL DISTRIBUTION WIDTH 16.5 % 10.3-14.2 H (BEAKER) (test code = 412) PLATELET COUNT (BEAKER) (test 253 K/CU MM 150-430 code = 756) MEAN PLATELET VOLUME (BEAKER) 8.7 fL 6.5-10.5 (test code = 754) NUCLEATED RED BLOOD CELLS 1 /100 WBC 0-0 H (BEAKER) (test code = 413) NEUTROPHILS RELATIVE PERCENT 92 % (BEAKER) (test code = 429) LYMPHOCYTES RELATIVE PERCENT 4 % (BEAKER) (test code = 430) MONOCYTES RELATIVE PERCENT 3 % (BEAKER) (test code = 431) EOSINOPHILS RELATIVE PERCENT 0 % (BEAKER) (test code = 432) BASOPHILS RELATIVE PERCENT 0 % (BEAKER) (test code = 437) NEUTROPHILS ABSOLUTE COUNT 10.00 K/ L 1.80-8.00 H (BEAKER) (test code = 670) LYMPHOCYTES ABSOLUTE COUNT 0.44 K/ L 1.48-4.50 L (BEAKER) (test code = 414) MONOCYTES ABSOLUTE COUNT (BEAKER) 0.37 K/ L 0.00-1.30 (test code = 415) EOSINOPHILS ABSOLUTE COUNT 0.01 K/ L 0.00-0.50 (BEAKER) (test code = 416) BASOPHILS ABSOLUTE COUNT (BEAKER) 0.00 K/ L 0.00-0.20 (test code = 417) 0.00(MANUAL DIFFERENTIAL)2016-08-27 11:27:00 Test Item Value Reference Range Interpretation Comments TOTAL COUNTED (BEAKER) (test code = 1351) WBC MORPHOLOGY (BEAKER) (test code = Normal 487) PLT MORPHOLOGY (BEAKER) (test code = Normal 486) POLYCHROMATOPHILLIC RBCS(BEAKER) (test 1+ few code = 478) BASIC METABOLIC [id number] 08:40:00 Test Item Value Reference Range Interpretation Comments SODIUM (BEAKER) 138 meq/L 136-145 (test code = 381) POTASSIUM (BEAKER) 4.3 meq/L 3.5-5.1 (test code = 379) CHLORIDE (BEAKER) 103 meq/L 98-107 (test code = 382) CO2 (BEAKER) (test 23 meq/L 22-29 code = 355) BLOOD UREA NITROGEN 35 mg/dL 7-21 H (BEAKER) (test code = 354) CREATININE (BEAKER) 6.29 mg/dL 0.57-1.25 H (test code = 358) GLUCOSE RANDOM 136 mg/dL 70-105 H (BEAKER) (test code = 652) CALCIUM (BEAKER) 8.8 mg/dL 8.4-10.2 (test code = 697) EGFR (BEAKER) (test 11 mL/min/1.73 ESTIMA ALEXANDRA GFR IS code = 1092) sq m NOT ACCURATE CREATININE CLEARANCE IN PREDICTING GLOMERULAR FILTRATION RATE . ESTIMATED GFR I S NOT APPLICABLE FOR DIALYSIS PATIEN TS. [id number] 08:38:00 Test Item Value Reference Range Interpretation Comments PHOSPHORUS (BEAKER) (test code = 4.0 mg/dL 2.3-4.7 604) CBC W/PLT COUNT & AUTO [id number] 13:06:00 Test Item Value Reference Range Interpretation Comments WHITE BLOOD CELL COUNT (BEAKER) 13.0 K/ L 4.0-10.0 H (test code = 775) RED BLOOD CELL COUNT (BEAKER) 2.94 M/ L 4.20-5.80 L (test code = 761) HEMOGLOBIN (BEAKER) (test code = 9.5 GM/DL 13.0-16.8 L 410) HEMATOCRIT (BEAKER) (test code = 28.8 % 40.0-50.0 L 411) MEAN CORPUSCULAR VOLUME (BEAKER) 98.1 fL 82.0-98.0 H (test code = 753) MEAN CORPUSCULAR HEMOGLOBIN 32.4 pg 27.0-33.0 (BEAKER) (test code = 751) MEAN CORPUSCULAR HEMOGLOBIN CONC 33.0 GM/DL 32.0-36.0 (BEAKER) (test code = 752) RED CELL DISTRIBUTION WIDTH 16.9 % 10.3-14.2 H (BEAKER) (test code = 412) PLATELET COUNT (BEAKER) (test 243 K/CU MM 150-430 code = 756) MEAN PLATELET VOLUME (BEAKER) 8.7 fL 6.5-10.5 (test code = 754) NUCLEATED RED BLOOD CELLS 0 /100 WBC 0-0 (BEAKER) (test code = 413) NEUTROPHILS RELATIVE PERCENT 92 % (BEAKER) (test code = 429) LYMPHOCYTES RELATIVE PERCENT 5 % (BEAKER) (test code = 430) MONOCYTES RELATIVE PERCENT 2 % (BEAKER) (test code = 431) EOSINOPHILS RELATIVE PERCENT 0 % (BEAKER) (test code = 432) BASOPHILS RELATIVE PERCENT 0 % (BEAKER) (test code = 437) NEUTROPHILS ABSOLUTE COUNT 12.00 K/ L 1.80-8.00 H (BEAKER) (test code = 670) LYMPHOCYTES ABSOLUTE COUNT 0.70 K/ L 1.48-4.50 L (BEAKER) (test code = 414) MONOCYTES ABSOLUTE COUNT (BEAKER) 0.28 K/ L 0.00-1.30 (test code = 415) EOSINOPHILS ABSOLUTE COUNT 0.05 K/ L 0.00-0.50 (BEAKER) (test code = 416) BASOPHILS ABSOLUTE COUNT (BEAKER) 0.02 K/ L 0.00-0.20 (test code = 417) 0.00(MANUAL DIFFERENTIAL)2016-08-26 13:06:00 Test Item Value Reference Range Interpretation Comments TOTAL COUNTED (BEAKER) (test code = 1351) WBC MORPHOLOGY (BEAKER) (test code = Normal 487) PLT MORPHOLOGY (BEAKER) (test code = Normal 486) RBC MORPHOLOGY (BEAKER) (test code = Normal 762) HEPATITIS B [id number] 11:49:00 Test Item Value Reference Range Interpretation Comments HEPATITIS B CORE TOTAL ANTIBODY Nonreactive Nonreactive (BEAKER) (test code = 497) HEPATITIS B SURFACE ANTIBODY < mIU/mL <8.0 (BEAKER) (test code = 647) HEPATITIS B SURFACE ANTIGEN (2) Nonreactive Nonreactive (BEAKER) (test code = 2585) [id number] 11:19:00 Test Item Value Reference Range Interpretation Comments PROTIME (BEAKER) (test code = 13.3 seconds 11.7-14.7 759) INR (BEAKER) (test code = 370) 1.0 <=5.9 PARTIAL THROMBOPLASTIN TIME 32.9 seconds 22.5-36.0 (BEAKER) (test code = 760) RECOMMENDED COUMADIN/WARFARIN INR THERAPY RANGESSTANDARD DOSE: 2.0 - 3.0 Includes: PROPHYLAXIS forvenous thrombosis, systemic embolization; TREATMENT for venous thrombosis and/or pulmonary embolus.HIGH RISK: Target INR is 2.5-3.5 for patients with mechanical heart valves.BASIC METABOLIC [id number] 07:32:00 Test Item Value Reference Range Interpretation Comments SODIUM (BEAKER) 137 meq/L 136-145 (test code = 381) POTASSIUM (BEAKER) 6.1 meq/L 3.5-5.1 HH (test code = 379) CHLORIDE (BEAKER) 109 meq/L 98-107 H (test code = 382) CO2 (BEAKER) (test 19 meq/L 22-29 L code = 355) BLOOD UREA NITROGEN 46 mg/dL 7-21 H (BEAKER) (test code = 354) CREATININE (BEAKER) 7.89 mg/dL 0.57-1.25 H (test code = 358) GLUCOSE RANDOM 139 mg/dL 70-105 H (BEAKER) (test code = 652) CALCIUM (BEAKER) 8.5 mg/dL 8.4-10.2 (test code = 697) EGFR (BEAKER) (test 9 mL/min/1.73 ESTIMAT ED GFR IS code = 1092) sq m NOT ACCURATE CREATININE CLEARANCE IN PREDICTING GLOMERULAR FILTRATION RATE . ESTIMATED GFR I S NOT APPLICABLE FOR DIALYSIS PATIEN TS. [id number] 07:17:00 Test Item Value Reference Range Interpretation Comments PHOSPHORUS (BEAKER) (test code = 3.3 mg/dL 2.3-4.7 604) [id number] 07:17:00 Test Item Value Reference Range Interpretation Comments MAGNESIUM (BEAKER) (test code = 2.0 mg/dL 1.6-2.6 627) HEPATIC FUNCTION [id number] 07:17:00 Test Item Value Reference Range Interpretation Comments TOTAL PROTEIN (BEAKER) (test code = 6.3 gm/dL 6.0-8.3 770) ALBUMIN (BEAKER) (test code = 1145) 3.5 g/dL 3.5-5.0 BILIRUBIN TOTAL (BEAKER) (test code 0.4 mg/dL 0.2-1.2 = 377) BILIRUBIN DIRECT (BEAKER) (test 0.1 mg/dL 0.1-0.5 code = 706) ALKALINE PHOSPHATASE (BEAKER) (test 59 U/L 40-150 code = 346) AST (SGOT) (BEAKER) (test code = 15 U/L 5-34 353) ALT (SGPT) (BEAKER) (test code = 13 U/L 6-55 347) COMPREHENSIVE METABOLIC [id number] 17:39:00 Test Item Value Reference Range Interpretation Comments TOTAL PROTEIN 6.2 gm/dL 6.0-8.3 Specimen sligh tly (BEAKER) (test code = hemoly zed 770) ALBUMIN (BEAKER) 3.5 g/dL 3.5-5.0 Specimen sl ightly (test code = 1145) hemolyzed ALKALINE PHOSPHATASE 55 U/L 40-150 (BEAKER) (test code = 346) BILIRUBIN TOTAL 0.2 mg/dL 0.2-1.2 Specimen sli ghtly (BEAKER) (test code = hemoly zed 377) SODIUM (BEAKER) (test 138 meq/L 136-145 code = 381) POTASSIUM (BEAKER) 4.4 meq/L 3.5-5.1 Specimen slightly (test code = 379) hemolyzed CHLORIDE (BEAKER) 105 meq/L 98-107 (test code = 382) CO2 (BEAKER) (test 23 meq/L 22-29 code = 355) BLOOD UREA NITROGEN 41 mg/dL 7-21 H (BEAKER) (test code = 354) CREATININE (BEAKER) 7.65 mg/dL 0.57-1.25 H Specimen slightly (test code = 358) hemolyzed GLUCOSE RANDOM 106 mg/dL 70-105 H (BEAKER) (test code = 652) CALCIUM (BEAKER) 9.0 mg/dL 8.4-10.2 (test code = 697) AST (SGOT) (BEAKER) 16 U/L 5-34 Specimen slightly (test code = 353) hemolyzed ALT (SGPT) (BEAKER) 13 U/L 6-55 Specimen slightly (test code = 347) hemolyzed EGFR (BEAKER) (test 9 mL/min/1.73 ESTIMAT ED GFR IS code = 1092) sq m NOT ACCURATE CREATININE CLEARANCE IN PREDICTING GLOMERULAR FILTRATION RATE . ESTIMATED GFR I S NOT APPLICABLE FOR DIALYSIS PATIEN TS. [id number] 17:36:00 Test Item Value Reference Range Interpretation Comments MAGNESIUM (BEAKER) 2.2 mg/dL 1.6-2.6 Specimen slightly (test code = 627) hemolyzed CBC W/PLT COUNT & AUTO [id number] 16:57:00 Test Item Value Reference Range Interpretation Comments WHITE BLOOD CELL COUNT (BEAKER) 16.8 K/ L 4.0-10.0 H (test code = 775) RED BLOOD CELL COUNT (BEAKER) 2.75 M/ L 4.20-5.80 L (test code = 761) HEMOGLOBIN (BEAKER) (test code = 8.4 GM/DL 13.0-16.8 L 410) HEMATOCRIT (BEAKER) (test code = 26.5 % 40.0-50.0 L 411) MEAN CORPUSCULAR VOLUME (BEAKER) 96.7 fL 82.0-98.0 (test code = 753) MEAN CORPUSCULAR HEMOGLOBIN 30.7 pg 27.0-33.0 (BEAKER) (test code = 751) MEAN CORPUSCULAR HEMOGLOBIN CONC 31.8 GM/DL 32.0-36.0 L (BEAKER) (test code = 752) RED CELL DISTRIBUTION WIDTH 16.0 % 10.3-14.2 H (BEAKER) (test code = 412) PLATELET COUNT (BEAKER) (test 232 K/CU MM 150-430 code = 756) MEAN PLATELET VOLUME (BEAKER) 8.4 fL 6.5-10.5 (test code = 754) NUCLEATED RED BLOOD CELLS 0 /100 WBC 0-0 (BEAKER) (test code = 413) NEUTROPHILS RELATIVE PERCENT 74 % (BEAKER) (test code = 429) LYMPHOCYTES RELATIVE PERCENT 8 % (BEAKER) (test code = 430) MONOCYTES RELATIVE PERCENT 17 % (BEAKER) (test code = 431) EOSINOPHILS RELATIVE PERCENT 1 % (BEAKER) (test code = 432) BASOPHILS RELATIVE PERCENT 0 % (BEAKER) (test code = 437) NEUTROPHILS ABSOLUTE COUNT 12.30 K/ L 1.80-8.00 H (BEAKER) (test code = 670) LYMPHOCYTES ABSOLUTE COUNT 1.38 K/ L 1.48-4.50 L (BEAKER) (test code = 414) MONOCYTES ABSOLUTE COUNT (BEAKER) 2.89 K/ L 0.00-1.30 H (test code = 415) EOSINOPHILS ABSOLUTE COUNT 0.11 K/ L 0.00-0.50 (BEAKER) (test code = 416) BASOPHILS ABSOLUTE COUNT (BEAKER) 0.05 K/ L 0.00-0.20 (test code = 417) 0.00COMPREHENSIVE METABOLIC [id number] 06:52:00 Test Item Value Reference Range Interpretation Comments TOTAL PROTEIN 6.3 gm/dL 6.0-8.3 (BEAKER) (test code = 770) ALBUMIN (BEAKER) 3.5 g/dL 3.5-5.0 (test code = 1145) ALKALINE PHOSPHATASE 54 U/L 40-150 (BEAKER) (test code = 346) BILIRUBIN TOTAL 0.3 mg/dL 0.2-1.2 (BEAKER) (test code = 377) SODIUM (BEAKER) (test 138 meq/L 136-145 code = 381) POTASSIUM (BEAKER) 4.1 meq/L 3.5-5.1 (test code = 379) CHLORIDE (BEAKER) 103 meq/L 98-107 (test code = 382) CO2 (BEAKER) (test 20 meq/L 22-29 L code = 355) BLOOD UREA NITROGEN 58 mg/dL 7-21 H (BEAKER) (test code = 354) CREATININE (BEAKER) 6.55 mg/dL 0.57-1.25 H (test code = 358) GLUCOSE RANDOM 131 mg/dL 70-105 H (BEAKER) (test code = 652) CALCIUM (BEAKER) 8.5 mg/dL 8.4-10.2 (test code = 697) AST (SGOT) (BEAKER) 12 U/L 5-34 (test code = 353) ALT (SGPT) (BEAKER) 12 U/L 6-55 (test code = 347) EGFR (BEAKER) (test 11 mL/min/1.73 ESTIMA ALEXANDRA GFR IS code = 1092) sq m NOT ACCURATE CREATININE CLEARANCE IN PREDICTING GLOMERULAR FILTRATION RATE . ESTIMATED GFR I S NOT APPLICABLE FOR DIALYSIS PATIEN TS. URIC [id number] 06:51:00 Test Item Value Reference Range Interpretation Comments URIC ACID (BEAKER) (test code = 8.2 mg/dL 2.6-7.2 H 773) LACTATE DEHYDROGENASE (LDH)2016-08-07 06:51:00 Test Item Value Reference Range Interpretation Comments LACTATE DEHYDROGENASE (BEAKER) (test 233 U/L 125-220 H code = 635) CBC W/PLT COUNT & AUTO [id number] 15:03:00 Test Item Value Reference Range Interpretation Comments WHITE BLOOD CELL COUNT (BEAKER) 19.7 K/ L 4.0-10.0 H (test code = 775) RED BLOOD CELL COUNT (BEAKER) 2.79 M/ L 4.20-5.80 L (test code = 761) HEMOGLOBIN (BEAKER) (test code = 8.7 GM/DL 13.0-16.8 L 410) HEMATOCRIT (BEAKER) (test code = 26.9 % 40.0-50.0 L 411) MEAN CORPUSCULAR VOLUME (BEAKER) 96.4 fL 82.0-98.0 (test code = 753) MEAN CORPUSCULAR HEMOGLOBIN 31.1 pg 27.0-33.0 (BEAKER) (test code = 751) MEAN CORPUSCULAR HEMOGLOBIN CONC 32.3 GM/DL 32.0-36.0 (BEAKER) (test code = 752) RED CELL DISTRIBUTION WIDTH 17.2 % 10.3-14.2 H (BEAKER) (test code = 412) PLATELET COUNT (BEAKER) (test 294 K/CU MM 150-430 code = 756) MEAN PLATELET VOLUME (BEAKER) 8.7 fL 6.5-10.5 (test code = 754) NUCLEATED RED BLOOD CELLS 0 /100 WBC 0-0 (BEAKER) (test code = 413) NEUTROPHILS RELATIVE PERCENT 83 % (BEAKER) (test code = 429) LYMPHOCYTES RELATIVE PERCENT 5 % (BEAKER) (test code = 430) MONOCYTES RELATIVE PERCENT 12 % (BEAKER) (test code = 431) EOSINOPHILS RELATIVE PERCENT 0 % (BEAKER) (test code = 432) BASOPHILS RELATIVE PERCENT 0 % (BEAKER) (test code = 437) NEUTROPHILS ABSOLUTE COUNT 16.30 K/ L 1.80-8.00 H (BEAKER) (test code = 670) LYMPHOCYTES ABSOLUTE COUNT 0.89 K/ L 1.48-4.50 L (BEAKER) (test code = 414) MONOCYTES ABSOLUTE COUNT (BEAKER) 2.34 K/ L 0.00-1.30 H (test code = 415) EOSINOPHILS ABSOLUTE COUNT 0.03 K/ L 0.00-0.50 (BEAKER) (test code = 416) BASOPHILS ABSOLUTE COUNT (BEAKER) 0.10 K/ L 0.00-0.20 (test code = 417) 0.00(MANUAL DIFFERENTIAL)2016-08-06 15:03:00 Test Item Value Reference Range Interpretation Comments TOTAL COUNTED (BEAKER) (test code = 1351) WBC MORPHOLOGY (BEAKER) (test code = Normal 487) PLT MORPHOLOGY (BEAKER) (test code = Normal 486) RBC MORPHOLOGY (BEAKER) (test code = Normal 762) COMPREHENSIVE METABOLIC [id number] 06:13:00 Test Item Value Reference Range Interpretation Comments TOTAL PROTEIN 5.8 gm/dL 6.0-8.3 L (BEAKER) (test code = 770) ALBUMIN (BEAKER) 3.2 g/dL 3.5-5.0 L (test code = 1145) ALKALINE PHOSPHATASE 56 U/L 40-150 (BEAKER) (test code = 346) BILIRUBIN TOTAL 0.3 mg/dL 0.2-1.2 (BEAKER) (test code = 377) SODIUM (BEAKER) (test 140 meq/L 136-145 code = 381) POTASSIUM (BEAKER) 4.1 meq/L 3.5-5.1 (test code = 379) CHLORIDE (BEAKER) 104 meq/L 98-107 (test code = 382) CO2 (BEAKER) (test 23 meq/L 22-29 code = 355) BLOOD UREA NITROGEN 31 mg/dL 7-21 H (BEAKER) (test code = 354) CREATININE (BEAKER) 5.11 mg/dL 0.57-1.25 H (test code = 358) GLUCOSE RANDOM 157 mg/dL 70-105 H (BEAKER) (test code = 652) CALCIUM (BEAKER) 8.1 mg/dL 8.4-10.2 L (test code = 697) AST (SGOT) (BEAKER) 14 U/L 5-34 (test code = 353) ALT (SGPT) (BEAKER) 11 U/L 6-55 (test code = 347) EGFR (BEAKER) (test 14 mL/min/1.73 ESTIMA ALEXANDRA GFR IS code = 1092) sq m NOT ACCURATE CREATININE CLEARANCE IN PREDICTING GLOMERULAR FILTRATION RATE . ESTIMATED GFR I S NOT APPLICABLE FOR DIALYSIS PATIEN TS. URIC [id number] 06:05:00 Test Item Value Reference Range Interpretation Comments URIC ACID (BEAKER) (test code = 5.3 mg/dL 2.6-7.2 773) [id number] 06:05:00 Test Item Value Reference Range Interpretation Comments MAGNESIUM (BEAKER) (test code = 1.9 mg/dL 1.6-2.6 627) [id number] 06:05:00 Test Item Value Reference Range Interpretation Comments PHOSPHORUS (BEAKER) (test code = 3.8 mg/dL 2.3-4.7 604) LACTATE DEHYDROGENASE (LDH)2016-08-06 06:05:00 Test Item Value Reference Range Interpretation Comments LACTATE DEHYDROGENASE (BEAKER) (test 248 U/L 125-220 H code = 635) [id number] 06:51:00 Test Item Value Reference Range Interpretation Comments PHOSPHORUS (BEAKER) (test code = 3.5 mg/dL 2.3-4.7 604) [id number] 06:51:00 Test Item Value Reference Range Interpretation Comments MAGNESIUM (BEAKER) (test code = 1.9 mg/dL 1.6-2.6 627) BASIC METABOLIC [id number] 06:51:00 Test Item Value Reference Range Interpretation Comments SODIUM (BEAKER) 137 meq/L 136-145 (test code = 381) POTASSIUM (BEAKER) 4.7 meq/L 3.5-5.1 (test code = 379) CHLORIDE (BEAKER) 107 meq/L 98-107 (test code = 382) CO2 (BEAKER) (test 18 meq/L 22-29 L code = 355) BLOOD UREA NITROGEN 36 mg/dL 7-21 H (BEAKER) (test code = 354) CREATININE (BEAKER) 6.91 mg/dL 0.57-1.25 H (test code = 358) GLUCOSE RANDOM 163 mg/dL 70-105 H (BEAKER) (test code = 652) CALCIUM (BEAKER) 8.3 mg/dL 8.4-10.2 L (test code = 697) EGFR (BEAKER) (test 10 mL/min/1.73 ESTIMA ALEXANDRA GFR IS code = 1092) sq m NOT ACCURATE CREATININE CLEARANCE IN PREDICTING GLOMERULAR FILTRATION RATE . ESTIMATED GFR I S NOT APPLICABLE FOR DIALYSIS PATIEN TS. CBC W/PLT COUNT & AUTO [id number] 06:37:00 Test Item Value Reference Range Interpretation Comments WHITE BLOOD CELL COUNT (BEAKER) 15.9 K/ L 4.0-10.0 H (test code = 775) RED BLOOD CELL COUNT (BEAKER) 2.89 M/ L 4.20-5.80 L (test code = 761) HEMOGLOBIN (BEAKER) (test code = 9.1 GM/DL 13.0-16.8 L 410) HEMATOCRIT (BEAKER) (test code = 27.9 % 40.0-50.0 L 411) MEAN CORPUSCULAR VOLUME (BEAKER) 96.5 fL 82.0-98.0 (test code = 753) MEAN CORPUSCULAR HEMOGLOBIN 31.5 pg 27.0-33.0 (BEAKER) (test code = 751) MEAN CORPUSCULAR HEMOGLOBIN CONC 32.6 GM/DL 32.0-36.0 (BEAKER) (test code = 752) RED CELL DISTRIBUTION WIDTH 16.8 % 10.3-14.2 H (BEAKER) (test code = 412) PLATELET COUNT (BEAKER) (test 279 K/CU MM 150-430 code = 756) MEAN PLATELET VOLUME (BEAKER) 8.3 fL 6.5-10.5 (test code = 754) NUCLEATED RED BLOOD CELLS 0 /100 WBC 0-0 (BEAKER) (test code = 413) NEUTROPHILS RELATIVE PERCENT 93 % (BEAKER) (test code = 429) LYMPHOCYTES RELATIVE PERCENT 5 % (BEAKER) (test code = 430) MONOCYTES RELATIVE PERCENT 1 % (BEAKER) (test code = 431) EOSINOPHILS RELATIVE PERCENT 0 % (BEAKER) (test code = 432) BASOPHILS RELATIVE PERCENT 0 % (BEAKER) (test code = 437) NEUTROPHILS ABSOLUTE COUNT 14.70 K/ L 1.80-8.00 H (BEAKER) (test code = 670) LYMPHOCYTES ABSOLUTE COUNT 0.78 K/ L 1.48-4.50 L (BEAKER) (test code = 414) MONOCYTES ABSOLUTE COUNT (BEAKER) 0.22 K/ L 0.00-1.30 (test code = 415) EOSINOPHILS ABSOLUTE COUNT 0.06 K/ L 0.00-0.50 (BEAKER) (test code = 416) BASOPHILS ABSOLUTE COUNT (BEAKER) 0.06 K/ L 0.00-0.20 (test code = 417) 0.00BASIC METABOLIC [id number] 12:49:00 Test Item Value Reference Range Interpretation Comments SODIUM (BEAKER) 140 meq/L 136-145 (test code = 381) POTASSIUM (BEAKER) 4.0 meq/L 3.5-5.1 (test code = 379) CHLORIDE (BEAKER) 106 meq/L 98-107 (test code = 382) CO2 (BEAKER) (test 23 meq/L 22-29 code = 355) BLOOD UREA NITROGEN 27 mg/dL 7-21 H (BEAKER) (test code = 354) CREATININE (BEAKER) 6.37 mg/dL 0.57-1.25 H (test code = 358) GLUCOSE RANDOM 88 mg/dL 70-105 (BEAKER) (test code = 652) CALCIUM (BEAKER) 8.6 mg/dL 8.4-10.2 (test code = 697) EGFR (BEAKER) (test 11 mL/min/1.73 ESTIMA ALEXANDRA GFR IS code = 1092) sq m NOT ACCURATE CREATININE CLEARANCE IN PREDICTING GLOMERULAR FILTRATION RATE . ESTIMATED GFR I S NOT APPLICABLE FOR DIALYSIS PATIEN TS. URIC [id number] 12:46:00 Test Item Value Reference Range Interpretation Comments URIC ACID (BEAKER) (test code = 5.2 mg/dL 2.6-7.2 773) [id number] 12:46:00 Test Item Value Reference Range Interpretation Comments MAGNESIUM (BEAKER) (test code = 2.1 mg/dL 1.6-2.6 627) [id number] 12:46:00 Test Item Value Reference Range Interpretation Comments PHOSPHORUS (BEAKER) (test code = 3.8 mg/dL 2.3-4.7 604) HEPATIC FUNCTION [id number] 12:46:00 Test Item Value Reference Range Interpretation Comments TOTAL PROTEIN (BEAKER) (test code = 6.1 gm/dL 6.0-8.3 770) ALBUMIN (BEAKER) (test code = 1145) 3.4 g/dL 3.5-5.0 L BILIRUBIN TOTAL (BEAKER) (test code 0.2 mg/dL 0.2-1.2 = 377) BILIRUBIN DIRECT (BEAKER) (test 0.1 mg/dL 0.1-0.5 code = 706) ALKALINE PHOSPHATASE (BEAKER) (test 59 U/L 40-150 code = 346) AST (SGOT) (BEAKER) (test code = 11 U/L 5-34 353) ALT (SGPT) (BEAKER) (test code = 9 U/L 6-55 347) LACTATE DEHYDROGENASE (LDH)[id number] 12:46:00 Test Item Value Reference Range Interpretation Comments LACTATE DEHYDROGENASE (BEAKER) (test 231 U/L 125-220 H code = 635) CBC W/PLT COUNT & AUTO [id number] 12:27:00 Test Item Value Reference Range Interpretation Comments WHITE BLOOD CELL COUNT (BEAKER) 13.8 K/ L 4.0-10.0 H (test code = 775) RED BLOOD CELL COUNT (BEAKER) 2.53 M/ L 4.20-5.80 L (test code = 761) HEMOGLOBIN (BEAKER) (test code = 7.9 GM/DL 13.0-16.8 L 410) HEMATOCRIT (BEAKER) (test code = 24.3 % 40.0-50.0 L 411) MEAN CORPUSCULAR VOLUME (BEAKER) 96.1 fL 82.0-98.0 (test code = 753) MEAN CORPUSCULAR HEMOGLOBIN 31.0 pg 27.0-33.0 (BEAKER) (test code = 751) MEAN CORPUSCULAR HEMOGLOBIN CONC 32.3 GM/DL 32.0-36.0 (BEAKER) (test code = 752) RED CELL DISTRIBUTION WIDTH 17.4 % 10.3-14.2 H (BEAKER) (test code = 412) PLATELET COUNT (BEAKER) (test 265 K/CU MM 150-430 code = 756) MEAN PLATELET VOLUME (BEAKER) 8.1 fL 6.5-10.5 (test code = 754) NUCLEATED RED BLOOD CELLS 0 /100 WBC 0-0 (BEAKER) (test code = 413) NEUTROPHILS RELATIVE PERCENT 71 % (BEAKER) (test code = 429) LYMPHOCYTES RELATIVE PERCENT 10 % (BEAKER) (test code = 430) MONOCYTES RELATIVE PERCENT 19 % (BEAKER) (test code = 431) EOSINOPHILS RELATIVE PERCENT 1 % (BEAKER) (test code = 432) BASOPHILS RELATIVE PERCENT 0 % (BEAKER) (test code = 437) NEUTROPHILS ABSOLUTE COUNT 9.76 K/ L 1.80-8.00 H (BEAKER) (test code = 670) LYMPHOCYTES ABSOLUTE COUNT 1.40 K/ L 1.48-4.50 L (BEAKER) (test code = 414) MONOCYTES ABSOLUTE COUNT (BEAKER) 2.56 K/ L 0.00-1.30 H (test code = 415) EOSINOPHILS ABSOLUTE COUNT 0.08 K/ L 0.00-0.50 (BEAKER) (test code = 416) BASOPHILS ABSOLUTE COUNT (BEAKER) 0.05 K/ L 0.00-0.20 (test code = 417) 0.00HEPATITIS B SURFACE [id number] 14:54:00 Test Item Value Reference Range Interpretation Comments HEPATITIS B SURFACE ANTIGEN (2) Nonreactive Nonreactive (BEAKER) (test code = 2585) CBC W/PLT COUNT & AUTO [id number] 10:30:00 Test Item Value Reference Range Interpretation Comments WHITE BLOOD CELL COUNT (BEAKER) 5.8 K/ L 4.0-10.0 (test code = 775) RED BLOOD CELL COUNT (BEAKER) 2.53 M/ L 4.20-5.80 L (test code = 761) HEMOGLOBIN (BEAKER) (test code = 8.1 GM/DL 13.0-16.8 L 410) HEMATOCRIT (BEAKER) (test code = 23.6 % 40.0-50.0 L 411) MEAN CORPUSCULAR VOLUME (BEAKER) 93.0 fL 82.0-98.0 (test code = 753) MEAN CORPUSCULAR HEMOGLOBIN 32.1 pg 27.0-33.0 (BEAKER) (test code = 751) MEAN CORPUSCULAR HEMOGLOBIN CONC 34.5 GM/DL 32.0-36.0 (BEAKER) (test code = 752) RED CELL DISTRIBUTION WIDTH 18.5 % 10.3-14.2 H (BEAKER) (test code = 412) PLATELET COUNT (BEAKER) (test 259 K/CU MM 150-430 code = 756) MEAN PLATELET VOLUME (BEAKER) 8.7 fL 6.5-10.5 (test code = 754) NUCLEATED RED BLOOD CELLS 0 /100 WBC 0-0 (BEAKER) (test code = 413) NEUTROPHILS RELATIVE PERCENT 86 % (BEAKER) (test code = 429) LYMPHOCYTES RELATIVE PERCENT 9 % (BEAKER) (test code = 430) MONOCYTES RELATIVE PERCENT 5 % (BEAKER) (test code = 431) EOSINOPHILS RELATIVE PERCENT 0 % (BEAKER) (test code = 432) BASOPHILS RELATIVE PERCENT 0 % (BEAKER) (test code = 437) NEUTROPHILS ABSOLUTE COUNT 4.97 K/ L 1.80-8.00 (BEAKER) (test code = 670) LYMPHOCYTES ABSOLUTE COUNT 0.52 K/ L 1.48-4.50 L (BEAKER) (test code = 414) MONOCYTES ABSOLUTE COUNT (BEAKER) 0.28 K/ L 0.00-1.30 (test code = 415) EOSINOPHILS ABSOLUTE COUNT 0.01 K/ L 0.00-0.50 (BEAKER) (test code = 416) BASOPHILS ABSOLUTE COUNT (BEAKER) 0.00 K/ L 0.00-0.20 (test code = 417) 0.00(MANUAL DIFFERENTIAL)2016-07-19 10:30:00 Test Item Value Reference Range Interpretation Comments TOTAL COUNTED (BEAKER) (test code = 1351) WBC MORPHOLOGY (BEAKER) (test code = Normal 487) PLT MORPHOLOGY (BEAKER) (test code = Normal 486) POIKILOCYTES (BEAKER) (test code = 1+ few 966) TEAR DROP CELLS (BEAKER) (test code = 1+ few 481) COMPREHENSIVE METABOLIC [id number] 06:29:00 Test Item Value Reference Range Interpretation Comments TOTAL PROTEIN 5.9 gm/dL 6.0-8.3 L (BEAKER) (test code = 770) ALBUMIN (BEAKER) 3.3 g/dL 3.5-5.0 L (test code = 1145) ALKALINE PHOSPHATASE 51 U/L 40-150 (BEAKER) (test code = 346) BILIRUBIN TOTAL 0.2 mg/dL 0.2-1.2 (BEAKER) (test code = 377) SODIUM (BEAKER) (test 138 meq/L 136-145 code = 381) POTASSIUM (BEAKER) 4.4 meq/L 3.5-5.1 (test code = 379) CHLORIDE (BEAKER) 105 meq/L 98-107 (test code = 382) CO2 (BEAKER) (test 22 meq/L 22-29 code = 355) BLOOD UREA NITROGEN 65 mg/dL 7-21 H (BEAKER) (test code = 354) CREATININE (BEAKER) 7.03 mg/dL 0.57-1.25 H (test code = 358) GLUCOSE RANDOM 150 mg/dL 70-105 H (BEAKER) (test code = 652) CALCIUM (BEAKER) 8.3 mg/dL 8.4-10.2 L (test code = 697) AST (SGOT) (BEAKER) 12 U/L 5-34 (test code = 353) ALT (SGPT) (BEAKER) 14 U/L 6-55 (test code = 347) EGFR (BEAKER) (test 10 mL/min/1.73 ESTIMA ALEXANDRA GFR IS code = 1092) sq m NOT ACCURATE CREATININE CLEARANCE IN PREDICTING GLOMERULAR FILTRATION RATE . ESTIMATED GFR I S NOT APPLICABLE FOR DIALYSIS PATIEN TS. LACTATE DEHYDROGENASE (LDH)2016-07-19 06:28:00 Test Item Value Reference Range Interpretation Comments LACTATE DEHYDROGENASE (BEAKER) (test 199 U/L 125-220 code = 635) CBC W/PLT COUNT & AUTO [id number] 06:53:00 Test Item Value Reference Range Interpretation Comments WHITE BLOOD CELL COUNT (BEAKER) 10.9 K/ L 4.0-10.0 H (test code = 775) RED BLOOD CELL COUNT (BEAKER) 2.66 M/ L 4.20-5.80 L (test code = 761) HEMOGLOBIN (BEAKER) (test code = 8.5 GM/DL 13.0-16.8 L 410) HEMATOCRIT (BEAKER) (test code = 25.3 % 40.0-50.0 L 411) MEAN CORPUSCULAR VOLUME (BEAKER) 95.2 fL 82.0-98.0 (test code = 753) MEAN CORPUSCULAR HEMOGLOBIN 31.7 pg 27.0-33.0 (BEAKER) (test code = 751) MEAN CORPUSCULAR HEMOGLOBIN CONC 33.3 GM/DL 32.0-36.0 (BEAKER) (test code = 752) RED CELL DISTRIBUTION WIDTH 18.4 % 10.3-14.2 H (BEAKER) (test code = 412) PLATELET COUNT (BEAKER) (test 281 K/CU MM 150-430 code = 756) MEAN PLATELET VOLUME (BEAKER) 8.6 fL 6.5-10.5 (test code = 754) NUCLEATED RED BLOOD CELLS 0 /100 WBC 0-0 (BEAKER) (test code = 413) NEUTROPHILS RELATIVE PERCENT 90 % (BEAKER) (test code = 429) LYMPHOCYTES RELATIVE PERCENT 4 % (BEAKER) (test code = 430) MONOCYTES RELATIVE PERCENT 6 % (BEAKER) (test code = 431) EOSINOPHILS RELATIVE PERCENT 0 % (BEAKER) (test code = 432) BASOPHILS RELATIVE PERCENT 0 % (BEAKER) (test code = 437) NEUTROPHILS ABSOLUTE COUNT 9.80 K/ L 1.80-8.00 H (BEAKER) (test code = 670) LYMPHOCYTES ABSOLUTE COUNT 0.49 K/ L 1.48-4.50 L (BEAKER) (test code = 414) MONOCYTES ABSOLUTE COUNT (BEAKER) 0.65 K/ L 0.00-1.30 (test code = 415) EOSINOPHILS ABSOLUTE COUNT 0.01 K/ L 0.00-0.50 (BEAKER) (test code = 416) BASOPHILS ABSOLUTE COUNT (BEAKER) 0.00 K/ L 0.00-0.20 (test code = 417) 0.00COMPREHENSIVE METABOLIC [id number] 06:47:00 Test Item Value Reference Range Interpretation Comments TOTAL PROTEIN 6.2 gm/dL 6.0-8.3 (BEAKER) (test code = 770) ALBUMIN (BEAKER) 3.4 g/dL 3.5-5.0 L (test code = 1145) ALKALINE PHOSPHATASE 56 U/L 40-150 (BEAKER) (test code = 346) BILIRUBIN TOTAL 0.3 mg/dL 0.2-1.2 (BEAKER) (test code = 377) SODIUM (BEAKER) (test 138 meq/L 136-145 code = 381) POTASSIUM (BEAKER) 4.3 meq/L 3.5-5.1 (test code = 379) CHLORIDE (BEAKER) 103 meq/L 98-107 (test code = 382) CO2 (BEAKER) (test 21 meq/L 22-29 L code = 355) BLOOD UREA NITROGEN 46 mg/dL 7-21 H (BEAKER) (test code = 354) CREATININE (BEAKER) 5.81 mg/dL 0.57-1.25 H (test code = 358) GLUCOSE RANDOM 161 mg/dL 70-105 H (BEAKER) (test code = 652) CALCIUM (BEAKER) 8.1 mg/dL 8.4-10.2 L (test code = 697) AST (SGOT) (BEAKER) 15 U/L 5-34 (test code = 353) ALT (SGPT) (BEAKER) 13 U/L 6-55 (test code = 347) EGFR (BEAKER) (test 12 mL/min/1.73 ESTIMA ALEXANDRA GFR IS code = 1092) sq m NOT ACCURATE CREATININE CLEARANCE IN PREDICTING GLOMERULAR FILTRATION RATE . ESTIMATED GFR I S NOT APPLICABLE FOR DIALYSIS PATIEN TS. LACTATE DEHYDROGENASE (LDH)2016-07-18 06:46:00 Test Item Value Reference Range Interpretation Comments LACTATE DEHYDROGENASE (BEAKER) (test 227 U/L 125-220 H code = 635) CBC W/PLT COUNT & AUTO [id number] 11:26:00 Test Item Value Reference Range Interpretation Comments WHITE BLOOD CELL COUNT (BEAKER) 25.1 K/ L 4.0-10.0 H (test code = 775) RED BLOOD CELL COUNT (BEAKER) 2.82 M/ L 4.20-5.80 L (test code = 761) HEMOGLOBIN (BEAKER) (test code = 8.4 GM/DL 13.0-16.8 L 410) HEMATOCRIT (BEAKER) (test code = 26.6 % 40.0-50.0 L 411) MEAN CORPUSCULAR VOLUME (BEAKER) 94.1 fL 82.0-98.0 (test code = 753) MEAN CORPUSCULAR HEMOGLOBIN 29.9 pg 27.0-33.0 (BEAKER) (test code = 751) MEAN CORPUSCULAR HEMOGLOBIN CONC 31.7 GM/DL 32.0-36.0 L (BEAKER) (test code = 752) RED CELL DISTRIBUTION WIDTH 19.1 % 10.3-14.2 H (BEAKER) (test code = 412) PLATELET COUNT (BEAKER) (test 290 K/CU MM 150-430 code = 756) MEAN PLATELET VOLUME (BEAKER) 8.7 fL 6.5-10.5 (test code = 754) NUCLEATED RED BLOOD CELLS 0 /100 WBC 0-0 (BEAKER) (test code = 413) NEUTROPHILS RELATIVE PERCENT 91 % (BEAKER) (test code = 429) LYMPHOCYTES RELATIVE PERCENT 3 % (BEAKER) (test code = 430) MONOCYTES RELATIVE PERCENT 6 % (BEAKER) (test code = 431) EOSINOPHILS RELATIVE PERCENT 1 % (BEAKER) (test code = 432) BASOPHILS RELATIVE PERCENT 0 % (BEAKER) (test code = 437) NEUTROPHILS ABSOLUTE COUNT 22.70 K/ L 1.80-8.00 H (BEAKER) (test code = 670) LYMPHOCYTES ABSOLUTE COUNT 0.66 K/ L 1.48-4.50 L (BEAKER) (test code = 414) MONOCYTES ABSOLUTE COUNT (BEAKER) 1.52 K/ L 0.00-1.30 H (test code = 415) EOSINOPHILS ABSOLUTE COUNT 0.15 K/ L 0.00-0.50 (BEAKER) (test code = 416) BASOPHILS ABSOLUTE COUNT (BEAKER) 0.01 K/ L 0.00-0.20 (test code = 417) [id number](MANUAL DIFFERENTIAL)2016-07-17 11:26:00 Test Item Value Reference Range Interpretation Comments TOTAL COUNTED (BEAKER) (test code = 1351) WBC MORPHOLOGY (BEAKER) (test code = Normal 487) PLT MORPHOLOGY (BEAKER) (test code = Normal 486) RBC MORPHOLOGY (BEAKER) (test code = Normal 762) BASIC METABOLIC [id number] 05:47:00 Test Item Value Reference Range Interpretation Comments SODIUM (BEAKER) 136 meq/L 136-145 (test code = 381) POTASSIUM (BEAKER) 4.9 meq/L 3.5-5.1 (test code = 379) CHLORIDE (BEAKER) 103 meq/L 98-107 (test code = 382) CO2 (BEAKER) (test 17 meq/L 22-29 L code = 355) BLOOD UREA NITROGEN 49 mg/dL 7-21 H (BEAKER) (test code = 354) CREATININE (BEAKER) 7.07 mg/dL 0.57-1.25 H (test code = 358) GLUCOSE RANDOM 120 mg/dL 70-105 H (BEAKER) (test code = 652) CALCIUM (BEAKER) 8.4 mg/dL 8.4-10.2 (test code = 697) EGFR (BEAKER) (test 10 mL/min/1.73 ESTIMA ALEXANDRA GFR IS code = 1092) sq m NOT ACCURATE CREATININE CLEARANCE IN PREDICTING GLOMERULAR FILTRATION RATE . ESTIMATED GFR I S NOT APPLICABLE FOR DIALYSIS PATIEN TS. URIC [id number] 05:44:00 Test Item Value Reference Range Interpretation Comments URIC ACID (BEAKER) (test code = 9.4 mg/dL 2.6-7.2 H 773) [id number] 05:44:00 Test Item Value Reference Range Interpretation Comments PHOSPHORUS (BEAKER) (test code = 5.1 mg/dL 2.3-4.7 H 604) HEPATIC FUNCTION [id number] 05:44:00 Test Item Value Reference Range Interpretation Comments TOTAL PROTEIN (BEAKER) (test code = 6.4 gm/dL 6.0-8.3 770) ALBUMIN (BEAKER) (test code = 1145) 3.4 g/dL 3.5-5.0 L BILIRUBIN TOTAL (BEAKER) (test code 0.3 mg/dL 0.2-1.2 = 377) BILIRUBIN DIRECT (BEAKER) (test 0.1 mg/dL 0.1-0.5 code = 706) ALKALINE PHOSPHATASE (BEAKER) (test 62 U/L 40-150 code = 346) AST (SGOT) (BEAKER) (test code = 15 U/L 5-34 353) ALT (SGPT) (BEAKER) (test code = 13 U/L 6-55 347) LACTATE DEHYDROGENASE (LDH)2016-07-17 05:44:00 Test Item Value Reference Range Interpretation Comments LACTATE DEHYDROGENASE (BEAKER) (test 250 U/L 125-220 H code = 635) CBC W/PLT COUNT & AUTO [id number] 11:11:00 Test Item Value Reference Range Interpretation Comments WHITE BLOOD CELL COUNT (BEAKER) 18.8 K/ L 4.0-10.0 H (test code = 775) RED BLOOD CELL COUNT (BEAKER) 2.83 M/ L 4.20-5.80 L (test code = 761) HEMOGLOBIN (BEAKER) (test code = 9.0 GM/DL 13.0-16.8 L 410) HEMATOCRIT (BEAKER) (test code = 27.2 % 40.0-50.0 L 411) MEAN CORPUSCULAR VOLUME (BEAKER) 96.3 fL 82.0-98.0 (test code = 753) MEAN CORPUSCULAR HEMOGLOBIN 31.9 pg 27.0-33.0 (BEAKER) (test code = 751) MEAN CORPUSCULAR HEMOGLOBIN CONC 33.1 GM/DL 32.0-36.0 (BEAKER) (test code = 752) RED CELL DISTRIBUTION WIDTH 18.5 % 10.3-14.2 H (BEAKER) (test code = 412) PLATELET COUNT (BEAKER) (test 287 K/CU MM 150-430 code = 756) MEAN PLATELET VOLUME (BEAKER) 8.7 fL 6.5-10.5 (test code = 754) NUCLEATED RED BLOOD CELLS 1 /100 WBC 0-0 H (BEAKER) (test code = 413) NEUTROPHILS RELATIVE PERCENT 93 % (BEAKER) (test code = 429) LYMPHOCYTES RELATIVE PERCENT 4 % (BEAKER) (test code = 430) MONOCYTES RELATIVE PERCENT 2 % (BEAKER) (test code = 431) EOSINOPHILS RELATIVE PERCENT 0 % (BEAKER) (test code = 432) BASOPHILS RELATIVE PERCENT 0 % (BEAKER) (test code = 437) NEUTROPHILS ABSOLUTE COUNT 17.60 K/ L 1.80-8.00 H (BEAKER) (test code = 670) LYMPHOCYTES ABSOLUTE COUNT 0.76 K/ L 1.48-4.50 L (BEAKER) (test code = 414) MONOCYTES ABSOLUTE COUNT (BEAKER) 0.40 K/ L 0.00-1.30 (test code = 415) EOSINOPHILS ABSOLUTE COUNT 0.07 K/ L 0.00-0.50 (BEAKER) (test code = 416) BASOPHILS ABSOLUTE COUNT (BEAKER) 0.02 K/ L 0.00-0.20 (test code = 417) 0.00(MANUAL DIFFERENTIAL)2016-07-16 11:11:00 Test Item Value Reference Range Interpretation Comments TOTAL COUNTED (BEAKER) (test code = 1351) WBC MORPHOLOGY (BEAKER) (test code = Normal 487) PLT MORPHOLOGY (BEAKER) (test code = Normal 486) POLYCHROMATOPHILLIC RBCS(BEAKER) (test 1+ few code = 478) BASIC METABOLIC [id number] 07:05:00 Test Item Value Reference Range Interpretation Comments SODIUM (BEAKER) 137 meq/L 136-145 (test code = 381) POTASSIUM (BEAKER) 4.4 meq/L 3.5-5.1 (test code = 379) CHLORIDE (BEAKER) 103 meq/L 98-107 (test code = 382) CO2 (BEAKER) (test 21 meq/L 22-29 L code = 355) BLOOD UREA NITROGEN 26 mg/dL 7-21 H (BEAKER) (test code = 354) CREATININE (BEAKER) 5.31 mg/dL 0.57-1.25 H (test code = 358) GLUCOSE RANDOM 157 mg/dL 70-105 H (BEAKER) (test code = 652) CALCIUM (BEAKER) 8.4 mg/dL 8.4-10.2 (test code = 697) EGFR (BEAKER) (test 13 mL/min/1.73 ESTIMA ALEXANDRA GFR IS code = 1092) sq m NOT ACCURATE CREATININE CLEARANCE IN PREDICTING GLOMERULAR FILTRATION RATE . ESTIMATED GFR I S NOT APPLICABLE FOR DIALYSIS PATIEN TS. URIC [id number] 07:04:00 Test Item Value Reference Range Interpretation Comments URIC ACID (BEAKER) (test code = 4.6 mg/dL 2.6-7.2 773) [id number] 07:04:00 Test Item Value Reference Range Interpretation Comments PHOSPHORUS (BEAKER) (test code = 3.1 mg/dL 2.3-4.7 604) HEPATIC FUNCTION [id number] 07:04:00 Test Item Value Reference Range Interpretation Comments TOTAL PROTEIN (BEAKER) (test code = 6.5 gm/dL 6.0-8.3 770) ALBUMIN (BEAKER) (test code = 1145) 3.5 g/dL 3.5-5.0 BILIRUBIN TOTAL (BEAKER) (test code 0.3 mg/dL 0.2-1.2 = 377) BILIRUBIN DIRECT (BEAKER) (test 0.2 mg/dL 0.1-0.5 code = 706) ALKALINE PHOSPHATASE (BEAKER) (test 69 U/L 40-150 code = 346) AST (SGOT) (BEAKER) (test code = 16 U/L 5-34 353) ALT (SGPT) (BEAKER) (test code = 14 U/L 6-55 347) LACTATE DEHYDROGENASE (LDH)2016-07-16 07:04:00 Test Item Value Reference Range Interpretation Comments LACTATE DEHYDROGENASE (BEAKER) (test 318 U/L 125-220 H code = 635) CBC W/PLT COUNT & AUTO [id number] 06:57:00 Test Item Value Reference Range Interpretation Comments WHITE BLOOD CELL COUNT (BEAKER) 15.4 K/ L 4.0-10.0 H (test code = 775) RED BLOOD CELL COUNT (BEAKER) 2.72 M/ L 4.20-5.80 L (test code = 761) HEMOGLOBIN (BEAKER) (test code = 8.4 GM/DL 13.0-16.8 L 410) HEMATOCRIT (BEAKER) (test code = 26.3 % 40.0-50.0 L 411) MEAN CORPUSCULAR VOLUME (BEAKER) 96.4 fL 82.0-98.0 (test code = 753) MEAN CORPUSCULAR HEMOGLOBIN 30.9 pg 27.0-33.0 (BEAKER) (test code = 751) MEAN CORPUSCULAR HEMOGLOBIN CONC 32.0 GM/DL 32.0-36.0 (BEAKER) (test code = 752) RED CELL DISTRIBUTION WIDTH 18.7 % 10.3-14.2 H (BEAKER) (test code = 412) PLATELET COUNT (BEAKER) (test 280 K/CU MM 150-430 code = 756) MEAN PLATELET VOLUME (BEAKER) 8.5 fL 6.5-10.5 (test code = 754) NUCLEATED RED BLOOD CELLS 2 /100 WBC 0-0 H (BEAKER) (test code = 413) NEUTROPHILS RELATIVE PERCENT 73 % (BEAKER) (test code = 429) LYMPHOCYTES RELATIVE PERCENT 10 % (BEAKER) (test code = 430) MONOCYTES RELATIVE PERCENT 16 % (BEAKER) (test code = 431) EOSINOPHILS RELATIVE PERCENT 1 % (BEAKER) (test code = 432) BASOPHILS RELATIVE PERCENT 0 % (BEAKER) (test code = 437) NEUTROPHILS ABSOLUTE COUNT 11.20 K/ L 1.80-8.00 H (BEAKER) (test code = 670) LYMPHOCYTES ABSOLUTE COUNT 1.58 K/ L 1.48-4.50 (BEAKER) (test code = 414) MONOCYTES ABSOLUTE COUNT (BEAKER) 2.45 K/ L 0.00-1.30 H (test code = 415) EOSINOPHILS ABSOLUTE COUNT 0.12 K/ L 0.00-0.50 (BEAKER) (test code = 416) BASOPHILS ABSOLUTE COUNT (BEAKER) 0.06 K/ L 0.00-0.20 (test code = 417) 0.00(MANUAL DIFFERENTIAL)2016-07-15 06:57:00 Test Item Value Reference Range Interpretation Comments TOTAL COUNTED (BEAKER) (test code = 1351) BASIC METABOLIC [id number] 06:09:00 Test Item Value Reference Range Interpretation Comments SODIUM (BEAKER) 140 meq/L 136-145 (test code = 381) POTASSIUM (BEAKER) 4.3 meq/L 3.5-5.1 (test code = 379) CHLORIDE (BEAKER) 109 meq/L 98-107 H (test code = 382) CO2 (BEAKER) (test 19 meq/L 22-29 L code = 355) BLOOD UREA NITROGEN 32 mg/dL 7-21 H (BEAKER) (test code = 354) CREATININE (BEAKER) 7.12 mg/dL 0.57-1.25 H (test code = 358) GLUCOSE RANDOM 92 mg/dL 70-105 (BEAKER) (test code = 652) CALCIUM (BEAKER) 8.5 mg/dL 8.4-10.2 (test code = 697) EGFR (BEAKER) (test 10 mL/min/1.73 ESTIMA ALEXANDRA GFR IS code = 1092) sq m NOT ACCURATE CREATININE CLEARANCE IN PREDICTING GLOMERULAR FILTRATION RATE . ESTIMATED GFR I S NOT APPLICABLE FOR DIALYSIS PATIEN TS. URIC [id number] 06:05:00 Test Item Value Reference Range Interpretation Comments URIC ACID (BEAKER) (test code = 6.5 mg/dL 2.6-7.2 773) [id number] 06:05:00 Test Item Value Reference Range Interpretation Comments PHOSPHORUS (BEAKER) (test code = 5.0 mg/dL 2.3-4.7 H 604) HEPATIC FUNCTION [id number] 06:05:00 Test Item Value Reference Range Interpretation Comments TOTAL PROTEIN (BEAKER) (test code = 6.2 gm/dL 6.0-8.3 770) ALBUMIN (BEAKER) (test code = 1145) 3.4 g/dL 3.5-5.0 L BILIRUBIN TOTAL (BEAKER) (test code 0.2 mg/dL 0.2-1.2 = 377) BILIRUBIN DIRECT (BEAKER) (test 0.1 mg/dL 0.1-0.5 code = 706) ALKALINE PHOSPHATASE (BEAKER) (test 65 U/L 40-150 code = 346) AST (SGOT) (BEAKER) (test code = 18 U/L 5-34 353) ALT (SGPT) (BEAKER) (test code = 16 U/L 6-55 347) LACTATE DEHYDROGENASE (LDH)2016-07-15 06:05:00 Test Item Value Reference Range Interpretation Comments LACTATE DEHYDROGENASE (BEAKER) (test 290 U/L 125-220 H code = 635) URINALYSIS W/ [id number] 22:18:00 Test Item Value Reference Range Interpretation Comments COLOR (BEAKER) (test code Light Yellow = 470) CLARITY (BEAKER) (test Clear code = 469) SPECIFIC GRAVITY UA 1.004 1.001-1.035 (BEAKER) (test code = 468) PH UA (BEAKER) (test code 7.5 5.0-8.0 = 467) PROTEIN UA (BEAKER) (test 30 mg/dL Negative A code = 464) GLUCOSE UA (BEAKER) (test Negative Negative code = 365) KETONES UA (BEAKER) (test Negative Negative code = 371) BILIRUBIN UA (BEAKER) Negative Negative (test code = 462) BLOOD UA (BEAKER) (test Negative Negative code = 461) NITRITE UA (BEAKER) (test Negative Negative code = 465) LEUKOCYTE ESTERASE UA Negative Negative (BEAKER) (test code = 466) UROBILINOGEN UA (BEAKER) 0.2 mg/dL 0.2-1.0 (test code = 463) RBC UA (BEAKER) (test code < /HPF = 519) WBC UA (BEAKER) (test code 2 /HPF = 520) SOURCE(BEAKER) (test code Urine, Clean Catch = 3545) CBC W/PLT COUNT & AUTO [id number] 20:30:00 Test Item Value Reference Range Interpretation Comments WHITE BLOOD CELL COUNT (BEAKER) 15.1 K/ L 4.0-10.0 H (test code = 775) RED BLOOD CELL COUNT (BEAKER) 2.72 M/ L 4.20-5.80 L (test code = 761) HEMOGLOBIN (BEAKER) (test code = 8.4 GM/DL 13.0-16.8 L 410) HEMATOCRIT (BEAKER) (test code = 25.6 % 40.0-50.0 L 411) MEAN CORPUSCULAR VOLUME (BEAKER) 94.1 fL 82.0-98.0 (test code = 753) MEAN CORPUSCULAR HEMOGLOBIN 30.7 pg 27.0-33.0 (BEAKER) (test code = 751) MEAN CORPUSCULAR HEMOGLOBIN CONC 32.6 GM/DL 32.0-36.0 (BEAKER) (test code = 752) RED CELL DISTRIBUTION WIDTH 19.0 % 10.3-14.2 H (BEAKER) (test code = 412) PLATELET COUNT (BEAKER) (test 266 K/CU MM 150-430 code = 756) MEAN PLATELET VOLUME (BEAKER) 8.3 fL 6.5-10.5 (test code = 754) NUCLEATED RED BLOOD CELLS 2 /100 WBC 0-0 H (BEAKER) (test code = 413) NEUTROPHILS RELATIVE PERCENT 68 % (BEAKER) (test code = 429) LYMPHOCYTES RELATIVE PERCENT 12 % (BEAKER) (test code = 430) MONOCYTES RELATIVE PERCENT 17 % (BEAKER) (test code = 431) EOSINOPHILS RELATIVE PERCENT 3 % (BEAKER) (test code = 432) BASOPHILS RELATIVE PERCENT 0 % (BEAKER) (test code = 437) NEUTROPHILS ABSOLUTE COUNT 10.30 K/ L 1.80-8.00 H (BEAKER) (test code = 670) LYMPHOCYTES ABSOLUTE COUNT 1.74 K/ L 1.48-4.50 (BEAKER) (test code = 414) MONOCYTES ABSOLUTE COUNT (BEAKER) 2.63 K/ L 0.00-1.30 H (test code = 415) EOSINOPHILS ABSOLUTE COUNT 0.43 K/ L 0.00-0.50 (BEAKER) (test code = 416) BASOPHILS ABSOLUTE COUNT (BEAKER) 0.05 K/ L 0.00-0.20 (test code = 417) 0.00COMPREHENSIVE METABOLIC [id number] 20:25:00 Test Item Value Reference Range Interpretation Comments TOTAL PROTEIN 6.5 gm/dL 6.0-8.3 (BEAKER) (test code = 770) ALBUMIN (BEAKER) 3.6 g/dL 3.5-5.0 (test code = 1145) ALKALINE PHOSPHATASE 68 U/L 40-150 (BEAKER) (test code = 346) BILIRUBIN TOTAL 0.2 mg/dL 0.2-1.2 (BEAKER) (test code = 377) SODIUM (BEAKER) (test 140 meq/L 136-145 code = 381) POTASSIUM (BEAKER) 3.8 meq/L 3.5-5.1 (test code = 379) CHLORIDE (BEAKER) 106 meq/L 98-107 (test code = 382) CO2 (BEAKER) (test 23 meq/L 22-29 code = 355) BLOOD UREA NITROGEN 31 mg/dL 7-21 H (BEAKER) (test code = 354) CREATININE (BEAKER) 6.77 mg/dL 0.57-1.25 H (test code = 358) GLUCOSE RANDOM 117 mg/dL 70-105 H (BEAKER) (test code = 652) CALCIUM (BEAKER) 8.5 mg/dL 8.4-10.2 (test code = 697) AST (SGOT) (BEAKER) 18 U/L 5-34 (test code = 353) ALT (SGPT) (BEAKER) 18 U/L 6-55 (test code = 347) EGFR (BEAKER) (test 10 mL/min/1.73 ESTIMA ALEXANDRA GFR IS code = 1092) sq m NOT ACCURATE CREATININE CLEARANCE IN PREDICTING GLOMERULAR FILTRATION RATE . ESTIMATED GFR I S NOT APPLICABLE FOR DIALYSIS PATIEN TS. URIC [id number] 20:24:00 Test Item Value Reference Range Interpretation Comments URIC ACID (BEAKER) (test code = 5.8 mg/dL 2.6-7.2 773) [id number] 20:24:00 Test Item Value Reference Range Interpretation Comments PHOSPHORUS (BEAKER) (test code = 4.8 mg/dL 2.3-4.7 H 604) LACTATE DEHYDROGENASE (LDH)2016-07-14 20:24:00 Test Item Value Reference Range Interpretation Comments LACTATE DEHYDROGENASE (BEAKER) (test 245 U/L 125-220 H code = 635) PROTHROMBIN [id number] 20:12:00 Test Item Value Reference Range Interpretation Comments PROTIME (BEAKER) (test code = 13.0 seconds 11.7-14.7 759) INR (BEAKER) (test code = 370) 1.0 <=5.9 RECOMMENDED COUMADIN/WARFARIN INR THERAPY RANGESSTANDARD DOSE: 2.0 - 3.0 Includes: PROPHYLAXIS forvenous thrombosis, systemic embolization; TREATMENT for venous thrombosis and/or pulmonary embolus.HIGH RISK: Target INR is 2.5-3.5 for patients with mechanical heart valves.[id number] 15:01:00 Test Item Value Reference Range Interpretation Comments LAB AP CPT CODE (BEAKER) (test code = 06421 2749) CBC W/PLT COUNT & AUTO [id number] 14:40:00 Test Item Value Reference Range Interpretation Comments WHITE BLOOD CELL COUNT (BEAKER) 7.9 K/ L 4.0-10.0 (test code = 775) RED BLOOD CELL COUNT (BEAKER) 2.63 M/ L 4.20-5.80 L (test code = 761) HEMOGLOBIN (BEAKER) (test code = 8.2 GM/DL 13.0-16.8 L 410) HEMATOCRIT (BEAKER) (test code = 24.6 % 40.0-50.0 L 411) MEAN CORPUSCULAR VOLUME (BEAKER) 93.6 fL 82.0-98.0 (test code = 753) MEAN CORPUSCULAR HEMOGLOBIN 31.1 pg 27.0-33.0 (BEAKER) (test code = 751) MEAN CORPUSCULAR HEMOGLOBIN CONC 33.2 GM/DL 32.0-36.0 (BEAKER) (test code = 752) RED CELL DISTRIBUTION WIDTH 18.0 % 10.3-14.2 H (BEAKER) (test code = 412) PLATELET COUNT (BEAKER) (test 237 K/CU MM 150-430 code = 756) MEAN PLATELET VOLUME (BEAKER) 8.6 fL 6.5-10.5 (test code = 754) NUCLEATED RED BLOOD CELLS 0 /100 WBC 0-0 (BEAKER) (test code = 413) NEUTROPHILS RELATIVE PERCENT 88 % (BEAKER) (test code = 429) LYMPHOCYTES RELATIVE PERCENT 5 % (BEAKER) (test code = 430) MONOCYTES RELATIVE PERCENT 6 % (BEAKER) (test code = 431) EOSINOPHILS RELATIVE PERCENT 0 % (BEAKER) (test code = 432) BASOPHILS RELATIVE PERCENT 0 % (BEAKER) (test code = 437) NEUTROPHILS ABSOLUTE COUNT 6.95 K/ L 1.80-8.00 (BEAKER) (test code = 670) LYMPHOCYTES ABSOLUTE COUNT 0.41 K/ L 1.48-4.50 L (BEAKER) (test code = 414) MONOCYTES ABSOLUTE COUNT (BEAKER) 0.47 K/ L 0.00-1.30 (test code = 415) EOSINOPHILS ABSOLUTE COUNT 0.02 K/ L 0.00-0.50 (BEAKER) (test code = 416) BASOPHILS ABSOLUTE COUNT (BEAKER) 0.03 K/ L 0.00-0.20 (test code = 417) 0.00(MANUAL DIFFERENTIAL)2016-06-26 14:40:00 Test Item Value Reference Range Interpretation Comments TOTAL COUNTED (BEAKER) (test code = 1351) WBC MORPHOLOGY (BEAKER) (test code = Normal 487) PLT MORPHOLOGY (BEAKER) (test code = Normal 486) RBC MORPHOLOGY (BEAKER) (test code = Normal 762) BASIC METABOLIC [id number] 07:34:00 Test Item Value Reference Range Interpretation Comments SODIUM (BEAKER) 137 meq/L 136-145 (test code = 381) POTASSIUM (BEAKER) 4.6 meq/L 3.5-5.1 (test code = 379) CHLORIDE (BEAKER) 104 meq/L 98-107 (test code = 382) CO2 (BEAKER) (test 20 meq/L 22-29 L code = 355) BLOOD UREA NITROGEN 49 mg/dL 7-21 H (BEAKER) (test code = 354) CREATININE (BEAKER) 6.45 mg/dL 0.57-1.25 H (test code = 358) GLUCOSE RANDOM 122 mg/dL 70-105 H (BEAKER) (test code = 652) CALCIUM (BEAKER) 8.2 mg/dL 8.4-10.2 L (test code = 697) EGFR (BEAKER) (test 11 mL/min/1.73 ESTIMA ALEXANDRA GFR IS code = 1092) sq m NOT ACCURATE CREATININE CLEARANCE IN PREDICTING GLOMERULAR FILTRATION RATE . ESTIMATED GFR I S NOT APPLICABLE FOR DIALYSIS PATIEN TS. [id number] 07:26:00 Test Item Value Reference Range Interpretation Comments PHOSPHORUS (BEAKER) (test code = 5.0 mg/dL 2.3-4.7 H 604) [id number] 07:26:00 Test Item Value Reference Range Interpretation Comments MAGNESIUM (BEAKER) (test code = 2.0 mg/dL 1.6-2.6 627) HEPATIC FUNCTION [id number] 07:26:00 Test Item Value Reference Range Interpretation Comments TOTAL PROTEIN (BEAKER) (test code = 5.9 gm/dL 6.0-8.3 L 770) ALBUMIN (BEAKER) (test code = 1145) 3.3 g/dL 3.5-5.0 L BILIRUBIN TOTAL (BEAKER) (test code 0.4 mg/dL 0.2-1.2 = 377) BILIRUBIN DIRECT (BEAKER) (test 0.1 mg/dL 0.1-0.5 code = 706) ALKALINE PHOSPHATASE (BEAKER) (test 40 U/L 40-150 code = 346) AST (SGOT) (BEAKER) (test code = 15 U/L 5-34 353) ALT (SGPT) (BEAKER) (test code = 14 U/L 6-55 347) FLOW CYTOMETRY [id number] 11:51:00 Test Item Value Reference Range Interpretation Comments FLOW CYTOMETRY RESULT See Separate Report POINTER (BEAKER) (test code = 2758) FLOW CYTOMETRY AP CASE # [id number] (BEAKER) (test code = 2759) HEPATITIS B SURFACE [id number] 09:53:00 Test Item Value Reference Range Interpretation Comments HEPATITIS B SURFACE ANTIGEN (2) Nonreactive Nonreactive (BEAKER) (test code = 2585) FLOW [id number] 09:46:00 Test Item Value Reference Range Interpretation Comments LAB AP CPT CODE (BEAKER) (test code = 75528 2749) BASIC METABOLIC [id number] 06:27:00 Test Item Value Reference Range Interpretation Comments SODIUM (BEAKER) 138 meq/L 136-145 (test code = 381) POTASSIUM (BEAKER) 5.4 meq/L 3.5-5.1 H (test code = 379) CHLORIDE (BEAKER) 108 meq/L 98-107 H (test code = 382) CO2 (BEAKER) (test 17 meq/L 22-29 L code = 355) BLOOD UREA NITROGEN 50 mg/dL 7-21 H (BEAKER) (test code = 354) CREATININE (BEAKER) 7.33 mg/dL 0.57-1.25 H (test code = 358) GLUCOSE RANDOM 130 mg/dL 70-105 H (BEAKER) (test code = 652) CALCIUM (BEAKER) 8.5 mg/dL 8.4-10.2 (test code = 697) EGFR (BEAKER) (test 9 mL/min/1.73 ESTIMAT ED GFR IS code = 1092) sq m NOT ACCURATE CREATININE CLEARANCE IN PREDICTING GLOMERULAR FILTRATION RATE . ESTIMATED GFR I S NOT APPLICABLE FOR DIALYSIS PATIEN TS. [id number] 06:26:00 Test Item Value Reference Range Interpretation Comments PHOSPHORUS (BEAKER) (test code = 3.3 mg/dL 2.3-4.7 604) [id number] 06:26:00 Test Item Value Reference Range Interpretation Comments MAGNESIUM (BEAKER) (test code = 1.9 mg/dL 1.6-2.6 627) HEPATIC FUNCTION [id number] 06:26:00 Test Item Value Reference Range Interpretation Comments TOTAL PROTEIN (BEAKER) (test code = 5.9 gm/dL 6.0-8.3 L 770) ALBUMIN (BEAKER) (test code = 1145) 3.2 g/dL 3.5-5.0 L BILIRUBIN TOTAL (BEAKER) (test code 0.4 mg/dL 0.2-1.2 = 377) BILIRUBIN DIRECT (BEAKER) (test 0.1 mg/dL 0.1-0.5 code = 706) ALKALINE PHOSPHATASE (BEAKER) (test 41 U/L 40-150 code = 346) AST (SGOT) (BEAKER) (test code = 19 U/L 5-34 353) ALT (SGPT) (BEAKER) (test code = 15 U/L 6-55 347) CBC W/PLT COUNT & AUTO [id number] 06:10:00 Test Item Value Reference Range Interpretation Comments WHITE BLOOD CELL COUNT (BEAKER) 6.7 K/ L 4.0-10.0 (test code = 775) RED BLOOD CELL COUNT (BEAKER) 2.87 M/ L 4.20-5.80 L (test code = 761) HEMOGLOBIN (BEAKER) (test code = 8.6 GM/DL 13.0-16.8 L 410) HEMATOCRIT (BEAKER) (test code = 26.4 % 40.0-50.0 L 411) MEAN CORPUSCULAR VOLUME (BEAKER) 92.0 fL 82.0-98.0 (test code = 753) MEAN CORPUSCULAR HEMOGLOBIN 29.9 pg 27.0-33.0 (BEAKER) (test code = 751) MEAN CORPUSCULAR HEMOGLOBIN CONC 32.5 GM/DL 32.0-36.0 (BEAKER) (test code = 752) RED CELL DISTRIBUTION WIDTH 18.4 % 10.3-14.2 H (BEAKER) (test code = 412) PLATELET COUNT (BEAKER) (test 259 K/CU MM 150-430 code = 756) MEAN PLATELET VOLUME (BEAKER) 8.5 fL 6.5-10.5 (test code = 754) NUCLEATED RED BLOOD CELLS 0 /100 WBC 0-0 (BEAKER) (test code = 413) NEUTROPHILS RELATIVE PERCENT 91 % (BEAKER) (test code = 429) LYMPHOCYTES RELATIVE PERCENT 7 % (BEAKER) (test code = 430) MONOCYTES RELATIVE PERCENT 2 % (BEAKER) (test code = 431) EOSINOPHILS RELATIVE PERCENT 0 % (BEAKER) (test code = 432) BASOPHILS RELATIVE PERCENT 0 % (BEAKER) (test code = 437) NEUTROPHILS ABSOLUTE COUNT 6.10 K/ L 1.80-8.00 (BEAKER) (test code = 670) LYMPHOCYTES ABSOLUTE COUNT 0.49 K/ L 1.48-4.50 L (BEAKER) (test code = 414) MONOCYTES ABSOLUTE COUNT (BEAKER) 0.11 K/ L 0.00-1.30 (test code = 415) EOSINOPHILS ABSOLUTE COUNT 0.00 K/ L 0.00-0.50 (BEAKER) (test code = 416) BASOPHILS ABSOLUTE COUNT (BEAKER) 0.00 K/ L 0.00-0.20 (test code = 417) 0.00CSF CELL COUNT [id number] 16:38:00 Test Item Value Reference Range Interpretation Comments APPEARANCE CSF (BEAKER) (test code Clear Clear = 407) COLOR CSF (BEAKER) (test code = Colorless Colorless 408) RBC CSF (BEAKER) (test code = 409) 1 /cu mm 0-5 WBC CSF (BEAKER) (test code = 0 /cu mm <=5 1020) RBCS FRESH (BEAKER) (test code = 100% Fresh 1444) NUMBER OF CELLS DIFF'D (BEAKER) 0 (test code = 1591) TUBE NUMBER CSF (BEAKER) (test 1 code = 8386) CBC W/PLT COUNT & AUTO [id number] 06:59:00 Test Item Value Reference Range Interpretation Comments WHITE BLOOD CELL COUNT (BEAKER) 6.5 K/ L 4.0-10.0 (test code = 775) RED BLOOD CELL COUNT (BEAKER) 2.67 M/ L 4.20-5.80 L (test code = 761) HEMOGLOBIN (BEAKER) (test code = 8.1 GM/DL 13.0-16.8 L 410) HEMATOCRIT (BEAKER) (test code = 25.3 % 40.0-50.0 L 411) MEAN CORPUSCULAR VOLUME (BEAKER) 94.7 fL 82.0-98.0 (test code = 753) MEAN CORPUSCULAR HEMOGLOBIN 30.2 pg 27.0-33.0 (BEAKER) (test code = 751) MEAN CORPUSCULAR HEMOGLOBIN CONC 31.9 GM/DL 32.0-36.0 L (BEAKER) (test code = 752) RED CELL DISTRIBUTION WIDTH 18.1 % 10.3-14.2 H (BEAKER) (test code = 412) PLATELET COUNT (BEAKER) (test 230 K/CU MM 150-430 code = 756) MEAN PLATELET VOLUME (BEAKER) 8.7 fL 6.5-10.5 (test code = 754) NUCLEATED RED BLOOD CELLS 0 /100 WBC 0-0 (BEAKER) (test code = 413) NEUTROPHILS RELATIVE PERCENT 53 % (BEAKER) (test code = 429) LYMPHOCYTES RELATIVE PERCENT 20 % (BEAKER) (test code = 430) MONOCYTES RELATIVE PERCENT 21 % (BEAKER) (test code = 431) EOSINOPHILS RELATIVE PERCENT 5 % (BEAKER) (test code = 432) BASOPHILS RELATIVE PERCENT 2 % (BEAKER) (test code = 437) NEUTROPHILS ABSOLUTE COUNT 3.46 K/ L 1.80-8.00 (BEAKER) (test code = 670) LYMPHOCYTES ABSOLUTE COUNT 1.29 K/ L 1.48-4.50 L (BEAKER) (test code = 414) MONOCYTES ABSOLUTE COUNT (BEAKER) 1.35 K/ L 0.00-1.30 H (test code = 415) EOSINOPHILS ABSOLUTE COUNT 0.34 K/ L 0.00-0.50 (BEAKER) (test code = 416) BASOPHILS ABSOLUTE COUNT (BEAKER) 0.11 K/ L 0.00-0.20 (test code = 417) 0.00BASIC METABOLIC [id number] 06:18:00 Test Item Value Reference Range Interpretation Comments SODIUM (BEAKER) 141 meq/L 136-145 (test code = 381) POTASSIUM (BEAKER) 4.0 meq/L 3.5-5.1 (test code = 379) CHLORIDE (BEAKER) 109 meq/L 98-107 H (test code = 382) CO2 (BEAKER) (test 21 meq/L 22-29 L code = 355) BLOOD UREA NITROGEN 39 mg/dL 7-21 H (BEAKER) (test code = 354) CREATININE (BEAKER) 6.78 mg/dL 0.57-1.25 H (test code = 358) GLUCOSE RANDOM 84 mg/dL 70-105 (BEAKER) (test code = 652) CALCIUM (BEAKER) 8.4 mg/dL 8.4-10.2 (test code = 697) EGFR (BEAKER) (test 10 mL/min/1.73 ESTIMA ALEXANDRA GFR IS code = 1092) sq m NOT ACCURATE CREATININE CLEARANCE IN PREDICTING GLOMERULAR FILTRATION RATE . ESTIMATED GFR I S NOT APPLICABLE FOR DIALYSIS PATIEN TS. [id number] 06:17:00 Test Item Value Reference Range Interpretation Comments PHOSPHORUS (BEAKER) (test code = 4.9 mg/dL 2.3-4.7 H 604) [id number] 06:17:00 Test Item Value Reference Range Interpretation Comments MAGNESIUM (BEAKER) (test code = 1.8 mg/dL 1.6-2.6 627) HEPATIC FUNCTION [id number] 06:17:00 Test Item Value Reference Range Interpretation Comments TOTAL PROTEIN (BEAKER) (test code = 5.7 gm/dL 6.0-8.3 L 770) ALBUMIN (BEAKER) (test code = 1145) 3.2 g/dL 3.5-5.0 L BILIRUBIN TOTAL (BEAKER) (test code 0.3 mg/dL 0.2-1.2 = 377) BILIRUBIN DIRECT (BEAKER) (test 0.1 mg/dL 0.1-0.5 code = 706) ALKALINE PHOSPHATASE (BEAKER) (test 42 U/L 40-150 code = 346) AST (SGOT) (BEAKER) (test code = 17 U/L 5-34 353) ALT (SGPT) (BEAKER) (test code = 13 U/L 6-55 347) COMPREHENSIVE METABOLIC [id number] 21:37:00 Test Item Value Reference Range Interpretation Comments TOTAL PROTEIN 5.9 gm/dL 6.0-8.3 L (BEAKER) (test code = 770) ALBUMIN (BEAKER) 3.3 g/dL 3.5-5.0 L (test code = 1145) ALKALINE PHOSPHATASE 44 U/L 40-150 (BEAKER) (test code = 346) BILIRUBIN TOTAL 0.3 mg/dL 0.2-1.2 (BEAKER) (test code = 377) SODIUM (BEAKER) (test 141 meq/L 136-145 code = 381) POTASSIUM (BEAKER) 3.8 meq/L 3.5-5.1 (test code = 379) CHLORIDE (BEAKER) 106 meq/L 98-107 (test code = 382) CO2 (BEAKER) (test 23 meq/L 22-29 code = 355) BLOOD UREA NITROGEN 39 mg/dL 7-21 H (BEAKER) (test code = 354) CREATININE (BEAKER) 6.56 mg/dL 0.57-1.25 H (test code = 358) GLUCOSE RANDOM 103 mg/dL 70-105 (BEAKER) (test code = 652) CALCIUM (BEAKER) 8.5 mg/dL 8.4-10.2 (test code = 697) AST (SGOT) (BEAKER) 17 U/L 5-34 (test code = 353) ALT (SGPT) (BEAKER) 13 U/L 6-55 (test code = 347) EGFR (BEAKER) (test 11 mL/min/1.73 ESTIMA ALEXANDRA GFR IS code = 1092) sq m NOT ACCURATE CREATININE CLEARANCE IN PREDICTING GLOMERULAR FILTRATION RATE . ESTIMATED GFR I S NOT APPLICABLE FOR DIALYSIS PATIEN TS. URIC [id number] 21:36:00 Test Item Value Reference Range Interpretation Comments URIC ACID (BEAKER) (test code = 4.9 mg/dL 2.6-7.2 773) LACTATE DEHYDROGENASE (LDH)2016-06-23 21:36:00 Test Item Value Reference Range Interpretation Comments LACTATE DEHYDROGENASE (BEAKER) (test 223 U/L 125-220 H code = 635) PROTHROMBIN [id number] 21:23:00 Test Item Value Reference Range Interpretation Comments PROTIME (BEAKER) (test code = 13.2 seconds 11.7-14.7 759) INR (BEAKER) (test code = 370) 1.0 <=5.9 RECOMMENDED COUMADIN/WARFARIN INR THERAPY RANGESSTANDARD DOSE: 2.0 - 3.0 Includes: PROPHYLAXIS forvenous thrombosis, systemic embolization; TREATMENT for venous thrombosis and/or pulmonary embolus.HIGH RISK: Target INR is 2.5-3.5 for patients with mechanical heart valves.CBC W/PLT COUNT & AUTO DIFFERENTIAL 2016-06-23 21:18:00 Test Item Value Reference Range Interpretation Comments WHITE BLOOD CELL COUNT (BEAKER) 6.6 K/ L 4.0-10.0 (test code = 775) RED BLOOD CELL COUNT (BEAKER) 2.54 M/ L 4.20-5.80 L (test code = 761) HEMOGLOBIN (BEAKER) (test code = 7.8 GM/DL 13.0-16.8 L 410) HEMATOCRIT (BEAKER) (test code = 23.9 % 40.0-50.0 L 411) MEAN CORPUSCULAR VOLUME (BEAKER) 94.4 fL 82.0-98.0 (test code = 753) MEAN CORPUSCULAR HEMOGLOBIN 30.8 pg 27.0-33.0 (BEAKER) (test code = 751) MEAN CORPUSCULAR HEMOGLOBIN CONC 32.7 GM/DL 32.0-36.0 (BEAKER) (test code = 752) RED CELL DISTRIBUTION WIDTH 18.1 % 10.3-14.2 H (BEAKER) (test code = 412) PLATELET COUNT (BEAKER) (test 219 K/CU MM 150-430 code = 756) MEAN PLATELET VOLUME (BEAKER) 8.1 fL 6.5-10.5 (test code = 754) NUCLEATED RED BLOOD CELLS 0 /100 WBC 0-0 (BEAKER) (test code = 413) NEUTROPHILS RELATIVE PERCENT 50 % (BEAKER) (test code = 429) LYMPHOCYTES RELATIVE PERCENT 22 % (BEAKER) (test code = 430) MONOCYTES RELATIVE PERCENT 22 % (BEAKER) (test code = 431) EOSINOPHILS RELATIVE PERCENT 5 % (BEAKER) (test code = 432) BASOPHILS RELATIVE PERCENT 1 % (BEAKER) (test code = 437) NEUTROPHILS ABSOLUTE COUNT 3.32 K/ L 1.80-8.00 (BEAKER) (test code = 670) LYMPHOCYTES ABSOLUTE COUNT 1.44 K/ L 1.48-4.50 L (BEAKER) (test code = 414) MONOCYTES ABSOLUTE COUNT (BEAKER) 1.44 K/ L 0.00-1.30 H (test code = 415) EOSINOPHILS ABSOLUTE COUNT 0.32 K/ L 0.00-0.50 (BEAKER) (test code = 416) BASOPHILS ABSOLUTE COUNT (BEAKER) 0.09 K/ L 0.00-0.20 (test code = 417) 0.00
--- NOTE | 2020-08-20 18:25 | RAD REPORT ---
EXAM DESCRIPTION: Jasmyne Erickson And Sugey (2 Views)08/20/2020 6:06 pm CLINICAL HISTORY: Shortness of breath COMPARISON: 2018 FINDINGS: [id number] bilateral pulmonary opacities. Small pleural effusions The heart is moderately enlarged IMPRESSION: These findings likely represent mild to moderate CHF
[2020-08-20 19:53] LABS: Absolute Lymphocytes (CBC) 0.8 K/uL (0.7-4.9); Hematocrit 28.1 % (39.6-49.0); MPV 9.3 fL (7.6-11.3); RBC Red Blood Cell Count 3.08 M/uL (4.33-5.43)
[2020-08-20] MEDS ORDERED: FUROSEMIDE 100 MG/10 ML VIAL IV ONE (20:10)
[2020-08-20 21:25] LABS: BUN Blood Urea Nitrogen 89 mg/dL (7-18); Bicarbonate 27 mmol/L (21-32); Glucose Level 113 mg/dL (74-106); Magnesium 2.9 mg/dL (1.8-2.4); NT PRO-BNP > 175000 pg/mL (<125); Sodium Level 142 mmol/L (136-145)
--- NOTE | 2020-08-20 21:28 | EDPHYS ---
Physician Documentation [facility] Name: Naldo Alejandre Age: 65 yrs Sex: Male : 1955 Arrival Date: 08/20/2020 Time: 15:39 Bed 19 Private MD: ED Physician Fausto Baird HPI: 08/20 19:20 This 65 yrs old Black Male presents to ER via Wheelchair with complaints of Shortness rn Of Breath. 19:20 The patient has shortness of breath at rest, with light activity, during heavy rn activity. Onset: The symptoms/episode began/occurred 1 month(s) ago. Duration: The symptoms are continuous. The patient's shortness of breath is aggravated by exertion, light activity, supine position, talking, walking. Associated signs and symptoms: Pertinent positives: non-productive cough, Pertinent negatives: fever, hemoptysis. Severity of symptoms: At their worst the symptoms were moderate in the emergency department the symptoms are unchanged. The patient has experienced similar episodes in the past. The patient has been recently seen by a physician:. Sent by PCP for increased swelling and sob, worse with exertion, given fluid pills and taking for last week, compliant with dialysis, and still sob. No fever. Reports symptoms for 1 month. Last dialysis Tuesday. Told by Dr. Montez to come to hospital and would get dialysis in AM.. Historical: - Allergies: 16:10 No Known Allergies; ll1 - Home Meds: 23:23 Unknown [Active]; sf - PMHx: 16:10 Dialysis; M,W,F; ESRD; Hyperlipidemia; Hypertension; kidney disease; LYMPHOMA; ll1 - PSHx: 16:10 hip sx; right chest wall jasvir; RUE dialysis access; ll1 - Immunization history:: Flu vaccine is up to date. - Social history:: Smoking status: Patient reports the use of cigarette tobacco products, denies chronic smoking, but will smoke occasionally, smokes one-half pack cigarettes per day. - Family history:: not pertinent. - Hospitalizations: : No recent hospitalization is reported. ROS: 19:20 Constitutional: Negative for fever, chills, and weight loss, Eyes: Negative for injury, rn pain, redness, and discharge, Neck: Negative for injury, pain, and swelling, Cardiovascular: Negative for chest pain, palpitations Respiratory: + sob and cough Abdomen/GI: Negative for abdominal pain, nausea, vomiting, diarrhea, and constipation, Back: Negative for injury and pain, MS/Extremity: Negative for injury and deformity, Skin: Negative for injury, rash, and discoloration, Neuro: Negative for headache, weakness, numbness, tingling, and seizure. Exam: 19:20 Constitutional: This is a well developed, well nourished patient who is awake, alert, rn and in no acute distress. Head/Face: Normocephalic, atraumatic. Eyes: Pupils equal round and reactive to light, extra-ocular motions intact. ENT: no stridor Cardiovascular: Regular rate and rhythm. No pulse deficits. Respiratory: + tachypnea with diminished breath sounds at bases Abdomen/GI: soft, non-tender Skin: Warm, dry with normal turgor. Normal color with no rashes, no lesions, and no evidence of cellulitis. MS/ Extremity: Pulses equal, no cyanosis. + RUE dialysis fistula with + thrill Neuro: Awake and alert, GCS 15, oriented to person, place, time, and situation. Vital Signs: 16:06 BP 162 / 104; Pulse 97; Resp 18; Temp 98.9; Pulse Ox 99% on R/A; Weight 99.79 kg; ll1 Height 6 ft. 2 in. (187.96 cm); Pain 0/10; 21:59 BP 169 / 113; Pulse 106; Resp 22; Pulse Ox 90% on R/A; bb 22:04 BP 168 / 109; Pulse 103; Resp 20; Pulse Ox 100% on 2 lpm NC; ll1 23:00 BP 153 / 121; Pulse 107; Resp 18; Pulse Ox 97% ; sf 16:06 Body Mass Index 28.25 (99.79 kg, 187.96 cm) ll1 21:59 Awoke from nap stating he is SOB. O2 sat. 90% RA. O2 2L NC applied. O2 sat up to 95% on bb 2l NC. Axel Palmer NP informed. MDM: 19:08 Patient medically screened. rn 21:26 Differential diagnosis: CHF exacerbation, pneumonia, Pneumothorax pulmonary edema. Data rn reviewed: vital signs, nurses notes, lab test result(s), EKG, radiologic studies, plain films, and as a result, I will admit patient. Counseling: I had a detailed discussion with the patient and/or guardian regarding: the historical points, exam findings, and any diagnostic results supporting the discharge/admit diagnosis, lab results, radiology results, the need for further work-up and treatment in the hospital. Response to treatment: There is no appreciated change of the patient's symptoms at this time, and as a result, I will admit patient. Admission orders: after a detailed discussion of the patient's condition and case, the admit orders are written by me. ED course: Pt with volume overload, is dialysis patient with compliance and taking diuretics lately, still overloaded, will admit for dialysis and diuresis. No big response to diuretics here. . 08/20 19:18 Order name: BNP rn 08/20 19:18 Order name: CBC with Diff; Complete Time: 20:44 rn 08/20 19:18 Order name: Basic Metabolic Panel rn 08/20 19:18 Order name: Magnesium rn 08/20 19:19 Order name: NT PRO-BNP; Complete Time: 21:29 EDMS 08/20 19:19 Order name: Basic Metabolic Panel; Complete Time: 21:29 EDMS 08/20 16:28 Order name: Chest Pa And Lat (2 Views) XRAY; Complete Time: 19:11 kb 08/20 19:18 Order name: IV Start; Complete Time: 19:22 rn 08/20 19:19 Order name: Magnesium; Complete Time: 21:29 EDMS 08/20 20:51 Order name: SARS-COV-2 RT PCR; Complete Time: 20:53 EDMS Administered Medications: 20:12 Drug: Lasix (furosemide) 60 mg Route: IVP; Site: left antecubital; ll1 21:29 Follow up: Response: No adverse reaction; RASS: Alert and Calm (0) ll1 Disposition: 08/20/20 21:28 Hospitalization ordered by Tomi Baird for Observation. Preliminary diagnosis are Pulmonary edema, End stage renal disease, Edema, unspecified. - Bed requested for Telemetry/MedSurg (observation). - Status is Observation. sf - Condition is Stable. - Problem is new. - Symptoms are unchanged. Signatures: Dispatcher [employer] [facility] Nat Poe RN RN dw Nieto, Roman, MD MD rn Attema, Lee, PRODUCTION SUPPORT MANAGER-C PRODUCTION SUPPORT MANAGER-Cla1 Elfego Santacruz RN RN ll1 Peter Linder RN RN sf Corrections: (The following items were deleted from the chart) 20:12 19:19 CORONAVIRUS+MR.GARO.CHRISTIEZ ordered. [facility] EDMS 22:58 21:28 Hospitalization Ordered by Tomi Baird MD for Observation. Preliminary dw diagnosis is Pulmonary edema; End stage renal disease; Edema, unspecified. Bed requested for Telemetry/MedSurg (observation). Status is Observation. Condition is Stable. Problem is new. Symptoms are unchanged. rn 08/21 00:28 08/20 22:58 08/20/2020 21:28 Hospitalization Ordered by Tomi Baird MD for sf Observation. Preliminary diagnosis is Pulmonary edema; End stage renal disease; Edema, unspecified. Bed requested for Telemetry/MedSurg (observation). Status is Observation. Condition is Stable. Problem is new. Symptoms are unchanged. dw
--- NOTE | 2020-08-20 21:28 | ER ---
Nurse's Notes [facility] Name: Naldo Alejandre Age: 65 yrs Sex: Male : 1955 Arrival Date: 08/20/2020 Time: 15:39 Bed 19 Private MD: Diagnosis: Pulmonary edema;End stage renal disease;Edema, unspecified Presentation: 08/20 16:06 Chief complaint: Patient states: Leg swelling, SOB for over a month. Trouble breathing ll1 laying flat. Sent in by Dr. Underwood for eval. Coronavirus screen: Client denies travel out of the [place] in the last 14 days. cough unrelated to allergies, difficulty breathing, shortness of breath, Client presents with at least one sign or symptom that may indicate coronavirus-19. Standard/surgical mask placed on the client. Ebola Screen: Patient denies travel to an Ebola-affected area in the 21 days before illness onset. Initial Sepsis Screen: Does the patient meet any 2 criteria? HR > 90 bpm. No. Patient's initial sepsis screen is negative. Does the patient have a suspected source of infection? Yes: Productive cough/pneumonia. Risk Assessment: Do you want to hurt yourself or someone else? Patient reports no desire to harm self or others. Onset of symptoms was July 16, 2020. 16:06 Method Of Arrival: Wheelchair ll1 16:06 Acuity: TERRI 3 ll1 Triage Assessment: 22:05 General: Appears uncomfortable, Behavior is calm, cooperative, appropriate for age. ll1 Respiratory: Reports shortness of breath. Respiratory: Reports shortness of breath cough that is Airway is patent Trachea midline Respiratory effort is even, unlabored, Respiratory pattern is regular, symmetrical, Breath sounds with wheezes bilaterally. Onset: The symptoms/episode began/occurred usually at night [id number]. , the patient has mild shortness of breath. Historical: - Allergies: 16:10 No Known Allergies; ll1 - Home Meds: 23:23 Unknown [Active]; sf - PMHx: 16:10 Dialysis; M,W,F; ESRD; Hyperlipidemia; Hypertension; kidney disease; LYMPHOMA; ll1 - PSHx: 16:10 hip sx; right chest wall jasvir; RUE dialysis access; ll1 - Immunization history:: Flu vaccine is up to date. - Social history:: Smoking status: Patient reports the use of cigarette tobacco products, denies chronic smoking, but will smoke occasionally, smokes one-half pack cigarettes per day. - Family history:: not pertinent. - Hospitalizations: : No recent hospitalization is reported. Screenin:05 Abuse screen: Denies threats or abuse. Nutritional screening: No deficits noted. ll1 Tuberculosis screening: No symptoms or risk factors identified. Fall Risk IV access (20 points). Total Booker Fall Scale indicates No Risk (0-24 pts). Assessment: 19:05 General: Appears uncomfortable, Behavior is calm, cooperative, appropriate for age. ll1 Pain: Denies pain. Neuro: No deficits noted. Cardiovascular: Reports shortness of breath, Heart tones S1 S2 Capillary refill < 3 seconds Clubbing of nail beds is absent JVD is absent Patient's skin is warm and dry. Edema is 2+ to left midcalf, left ankle, left foot, right midcalf, right ankle and right foot pitting to left midcalf, left ankle, left foot, right midcalf, right ankle and right foot Rhythm is regular. Respiratory: Airway is patent Trachea midline Respiratory effort is even, unlabored, Respiratory pattern is regular, symmetrical, Breath sounds with wheezes bilaterally. Onset: The symptoms/episode began/occurred 1+ months, the patient has mild shortness of breath. GI: No deficits noted. 22:50 Reassessment: Family updated via phone. sf Vital Signs: 16:06 BP 162 / 104; Pulse 97; Resp 18; Temp 98.9; Pulse Ox 99% on R/A; Weight 99.79 kg; ll1 Height 6 ft. 2 in. (187.96 cm); Pain 0/10; 21:59 BP 169 / 113; Pulse 106; Resp 22; Pulse Ox 90% on R/A; bb 22:04 BP 168 / 109; Pulse 103; Resp 20; Pulse Ox 100% on 2 lpm NC; ll1 23:00 BP 153 / 121; Pulse 107; Resp 18; Pulse Ox 97% ; sf 16:06 Body Mass Index 28.25 (99.79 kg, 187.96 cm) ll1 21:59 Awoke from nap stating he is SOB. O2 sat. 90% RA. O2 2L NC applied. O2 sat up to 95% on bb 2l NC. Axel Palmer NP informed. ED Course: 15:39 Patient arrived in ED. ds1 16:09 Triage completed. ll1 16:10 Arm band placed on. ll1 18:05 Chest Pa And Lat (2 Views) XRAY In Process Unspecified. EDMS 19:08 Elfego Santacruz, RN is Primary Nurse. ll1 19:08 Fausto Baird MD is Attending Physician. rn 19:10 Patient has correct armband on for positive identification. Bed in low position. Call ll1 light in reach. Side rails up X 1. Pulse ox on. NIBP on. 20:13 Inserted saline lock: 22 gauge in left antecubital area, using aseptic technique. Blood ll1 collected. 21:26 Notified ED physician of a critical lab result(s). Creatinine 13.90. bb 21:27 Tomi Baird MD is Hospitalizing Provider. rn 22:09 Primary Nurse role handed off by Elfego Santacruz RN sf 22:09 Peter Linder RN is Primary Nurse. sf 23:25 No provider procedures requiring assistance completed. Patient admitted, IV remains in sf place. Administered Medications: 20:12 Drug: Lasix (furosemide) 60 mg Route: IVP; Site: left antecubital; ll1 21:29 Follow up: Response: No adverse reaction; RASS: Alert and Calm (0) ll1 Outcome: 21:28 Decision to Hospitalize by Provider. rn 23:22 Admitted to Tele accompanied by nurse, via wheelchair, room 216, with oxygen, Report sf called to ELEONORA Healy 23:22 Condition: stable 23:22 Instructed on the need for admit. 08/21 00:28 Patient left the ED. sf Signatures: Dispatcher [employer] [facility] MariscalLisa velasco ds1 Michelle Morgan RN RN bb Fausto Baird MD MD rn Lewis, Lynsay, RN RN 1 Peter Linder RN RN sf
--- NOTE | 2020-08-20 22:55 | P.HP ---
Certification for Inpatient Patient admitted to: Observation With expected LOS: <2 Midnights Patient will require the following post-hospital care: None Practitioner: I am a practitioner with admitting privileges, knowledge of patient current condition, hospital course, and medical plan of care. Services: Services provided to patient in accordance with Admission requirements found in Title 42 Section 412.3 of the Code of Federal Regulations <Jh Palmer - Last Filed: 08/20/20 22:51> Patient History Date of Service: 08/20/20 History of Present Illness: 65-year-old male with history of ESRD on HD, hypertension, hyperlipidemia, history of lymphoma presents emergency department for shortness of breath. Patient reports that he last had dialysis on Tuesday, typically goes Tuesday but missed both Tuesday and Tuesday due to doctor's appointments. Patient does make urine and was given 60 mg of Lasix in the emergency department, labs were significant for hemoglobin 9, hematocrit 28 MCV 91.3 creatinine 13.9 GFR for BUN 89, magnesium 2.9. BNP [id number] chest x-ray demonstrates mild to moderate CHF pattern. Patient given Lasix in the emergency department, is making some urine, ED provider wishes to admit for further evaluation and management. - Past Medical/Surgical History Diabetic: No -: ESRD/HD- MWF -: HTN -: BPH -: Obesity -: Possible obstructive sleep apnea -: History of lymphoma -: Hyperlipidemia -: Tobacco abuse -: Right hip and pelvic surgery -: Dialysis catheter placement -: Port-A-Cath placement Psychosocial/ Personal History: The patient is but has a fiancee. He has 3 children. - Family History Father -: Hypertension, Other (see notes) Notes: Multiple sclerosis - Social History Smoking Status: Current some day smoker Counseled patient to stop smoking for: less than 10 minutes Smoking therapy provided: No Alcohol use: No CD- Drugs: No Caffeine use: No Place of Residence: Home <Jh Palmer - Last Filed: 08/20/20 22:51> Date of Service: 08/21/20 <Tomi Baird - Last Filed: 08/21/20 10:30> Allergies No Known Allergies Allergy (Verified 01/03/18 16:33) Home Medications: Metoprolol Tartrate 100 mg PO DAILY 01/03/18 Nifedipine Xl [Procardia XL*] 90 mg PO BEDTIME 01/03/18 Terazosin HCl [Hytrin] 5 mg PO BID 01/03/18 Hydralazine HCl 50 mg PO BEDTIME 01/04/18 Review of Systems 10-point ROS is otherwise unremarkable Respiratory: Shortness of Breath Cardiovascular: Edema, As per HPI <Jh Palmer - Last Filed: 08/20/20 22:51> Physical Examination - Physical Exam General: Alert, In no apparent distress HEENT: Atraumatic, PERRLA, Mucous membr. moist/pink, EOMI, Sclerae nonicteric Neck: Supple, 2+ carotid pulse no bruit, No LAD Respiratory: Clear to auscultation bilaterally, Normal air movement, Crackles/rales (Bibasilar) Cardiovascular: Regular rate/rhythm, Normal S1 S2, Edema (2+ pitting edema bilateral lower extremities) Capillary refill: <2 Seconds Gastrointestinal: Normal bowel sounds, No tenderness Musculoskeletal: No tenderness Integumentary: No rashes Neurological: Normal speech, Normal strength at 5/5 x4 extr, Normal tone - Studies Laboratory Data (last 24 hrs) 08/20/20 19:35: WBC 7.60, Hgb 9.0 L, Hct 28.1 L, Plt Count 274 08/20/20 19:35: Sodium 142, Potassium 5.0, BUN 89 H, Creatinine 13.90 H*, Glucose 113 H, Magnesium 2.9 H D <Jh Palmer - Last Filed: 08/20/20 22:51> - Studies Laboratory Data (last 24 hrs) 08/20/20 19:35: WBC 7.60, Hgb 9.0 L, Hct 28.1 L, Plt Count 274 08/20/20 19:35: Sodium 142, Potassium 5.0, BUN 89 H, Creatinine 13.90 H*, Glucose 113 H, Magnesium 2.9 H D <Tomi Baird - Last Filed: 08/21/20 10:30> Assessment and Plan - Plan Assessment Dyspnea, hypervolemia secondary to ESRD on HD with multiple missed hemodialysis sessions Hypertension, hyperlipidemia Plan Dyspnea, hypervolemia secondary to ESRD on HD with multiple missed hemodialysis sessions: Nephrology consulted for management of dialysis/ESRD, patient given Lasix in the emergency department, will continue with Lasix IV 40 mg b.i.d. to assist with volume status. DVT prophylaxis heparin 5000 units subcutaneous twice daily. Appreciate further input from nephrology. Hypertension, hyperlipidemia: Obtain and continue home medications, adjust as necessary. Discharge Plan: Home Plan to discharge in: 24 Hours - Advance Directives Does patient have a Living Will: No Does patient have a Durable POA for Healthcare: No - Code Status/Comfort Care Code Status Assessed: Yes (Full code) Critical Care: No Time Spent Managing Pts Care (In Minutes): 55 <Jh Palmer - Last Filed: 08/20/20 22:51> - Plan Plan of care reviewed as noted above by Jh Palmer Dyspnea, volume overloaded secondary to ESRD and missed HD sessions x2 nephrology consulted for HD <Tomi Baird - Last Filed: 08/21/20 10:30>
[2020-08-20] MEDS ORDERED: ACETAMINOPHEN 500 MG TAB PO PRN (23:50)
[2020-08-20] MEDS ORDERED: ONDANSETRON 4 MG/2 ML VIAL IV PRN (23:50)
[2020-08-21] MEDS ORDERED: HYDRALAZINE HCL 20 MG/ML VIAL IV PRN (01:31)
[2020-08-21 02:45] VITALS: BMI 28.2
[2020-08-21] MEDS ORDERED: ALBUTEROL 2.5 MG/3 ML NEB SOL NEB PRN (03:24)
[2020-08-21 06:15] LABS: Absolute Lymphocytes (CBC) 0.8 K/uL (0.7-4.9); Basophils % 0.7 % (0-1.3); Hematocrit 24.4 % (39.6-49.0); Lymphocytes % 9.4 % (15.3-44.8); MPV 9.1 fL (7.6-11.3); RBC Red Blood Cell Count 2.69 M/uL (4.33-5.43)
[2020-08-21 06:31] LABS: Albumin 2.9 g/dL (3.4-5.0); Bilirubin Total 0.5 mg/dL (0.2-1.0); Potassium 5.5 mmol/L (3.5-5.1)
[2020-08-21] MEDS: HEPARIN 5000 UNIT/ML 1 ML VIAL SQ SCH ×2 (08:30→20:49)
[2020-08-21] MEDS: TERAZOSIN HCL 5 MG CAP PO SCH ×2 (08:30→20:49)
[2020-08-21] MEDS: FUROSEMIDE 40 MG/4 ML VIAL IV SCH ×2 (08:31→17:22)
[2020-08-21] MEDS: METOPROLOL TAR 50 MG TAB PO SCH (08:32)
--- NOTE | 2020-08-21 10:35 | P.PN ---
Subjective Date of Service: 08/21/20 Subjective: No new changes (still with shortness of breath, denies fevers/chills, no nausea/vomiting, swelling it slightly more in b/l legs compared to usual) Review of Systems 10-point ROS is otherwise unremarkable Physical Examination - Vital Signs Temperature: 97.8 F Blood Pressure: 181/103 Pulse: 95 Respirations: 20 Pulse Ox (%): 92 - Studies Laboratory Data (last 24 hrs) 08/20/20 19:35: WBC 7.60, Hgb 9.0 L, Hct 28.1 L, Plt Count 274 08/20/20 19:35: Sodium 142, Potassium 5.0, BUN 89 H, Creatinine 13.90 H*, Glucose 113 H, Magnesium 2.9 H D Assessment & Plan Physician Review Additional Text: Physical Exam General: Alert, In no apparent distress HEENT: Mucous membr. moist/pink, EOMI, Sclerae nonicteric Respiratory: mild bibasilar crackles, nonlabored on 3L NC Cardiovascular: Regular rate/rhythm, Normal S1 S2, 2+ pitting edema bilateral lower extremities to knees Gastrointestinal: soft, Normal bowel sounds, No tenderness Integumentary: No rashes Neurological: Normal speech, Normal strength Problem List: Dyspnea, hypervolemia secondary to ESRD on HD with multiple missed hemodialysis sessions Hypertension, hyperlipidemia -nephrology consulted for management of dialysis/ESRD -received lasix in ED, pt reports no significant change in UOP -continue home medications as appropriate -wean O2 as appropriate -does not appear to have infection as this time VTE: heparin subq Code: full Dispo: anticipate dc in 24-48hrs, wean O2, re-eval after dialysis Time Spent Managing Pts Care (In Minutes): 35
[2020-08-21] MEDS ORDERED: EPOETIN 4,000 UNIT/ML VIAL IV SCH (12:30)
[2020-08-21 12:38] LABS: Urine Appearance CLEAR (Clear); Urine Bilirubin NEGATIVE (Negative); Urine Blood NEGATIVE (Negative); Urine Color YELLOW (Yellow); Urine Glucose TRACE (Negative); Urine Protein 1+ (Negative); Urine Urobilinogen 0.2 mg/dL (0.2-1.0)
[2020-08-21 12:40] LABS: Urine Microscopic Reflex ORDER UMIC
[2020-08-21 13:07] LABS: Urine Bacteria NONE SEEN /HPF (NONE SEEN); Urine RBC NONE SEEN /HPF (NONE SEEN)
--- NOTE | 2020-08-21 16:14 | CON ---
Date of Consultation: 08/21/2020 Reason For Consultation: Over volume, end-stage renal disease. History Of Present Illness: This is a pleasant 65-year-old gentleman, well known to me from dialysis with significant past medical history of end-stage renal disease on hemodialysis, Tuesday, Tuesday, and Tuesday, hypertension, obstructive sleep apnea, hyperlipidemia, the patient is poor compliant with dialysis, refused to be challenged. Apparently, the patient went to his proofer yesterday and his way back started having more shortness of breath, increase in his leg swelling. For that reason, he reported to the Emergency, in the emergency room found to have anemic, elevation in BNP and over volume. For that reason, the patient was admitted. The patient has been taking diuresis, still maintaining urine output. Past Medical History: 1. Includes end-stage renal disease, on hemodialysis Tuesday, Tuesday, Tuesday at [facility]. 2. Hypertension. 3. Benign prostate hypertrophy. 4. Obstructive sleep apnea. 5. Hyperlipidemia. Past Surgical History: Includes PermCath placement. Family History: Positive for hypertension. Social History: Ex-smoker. Denied alcohol. Denied drugs abuse. Allergies: NO KNOWN DRUG ALLERGIES. Home Medications: Include hydralazine, metoprolol, nifedipine, terazosin. Review of Systems: Head and Neck: No red eye. No ear pain. GI: No nausea. No vomiting. : No polyuria. No dysuria. No hematuria. Director Of Agriculture: Not applicable. Respiratory: Has shortness of breath. Cardiovascular: Has leg swelling. Has orthopnea. Endocrine: No polydipsia. Skin: No rash. Neuro: Has neuropathy. Musculoskeletal: Generalized fatigue. Physical Examination: Vital Signs: When I saw the patient; blood pressure 180/100, pulse of 95, afebrile. Chest: Crackles bilateral. Heart: S1, S2. Systolic murmur. Abdomen: Soft, nontender. Extremities: +3 edema. Neurologic: Alert. No focality. Laboratory Data: WBC 8.1, H and H 8/24.4, platelets 266. Sodium 143, potassium 5.5, bicarb 27, BUN 100, creatinine 14.4, calcium 8.9, magnesium of 3, albumin 2.9. BNP more than 175,000. Chest x-ray; cardiomegaly with congestion bilateral. Assessment And Plan: 1. End-stage renal disease with hyperkalemia and over volume. I am going to go ahead and arrange for dialysis today dialysis and tomorrow we will do sequential to try to establish better volume control for the patient. 2. Hypertension. We will utilize blood pressure to establish better volume control. I agree with current medications. We will follow up blood pressure after dialysis. 3. Hyperkalemia. The patient is going to be dialyzed on low-potassium bath. 4. Congestive heart failure exacerbation. As above, we will challenge the patient. 5. Anemia of chronic kidney disease. We will start the patient on Retacrit. 6. Secondary hyperparathyroidism. I will start the patient on Renvela. We will follow up. Thank you Dr. Baird for allowing us to participate in the care of your patient. time spend exam the patient face to face , discussing with patient , reviewing la and radiology date, placing order , discussing the case with staff and with other team consultan and hospitalist 65 min. HAILE Voice ID: [id number] Report ID: [id number]
[2020-08-21] MEDS: SEVELAMER CARBONATE 800 MG TABLET PO SCH (17:21)
[2020-08-21] MEDS: PANTOPRAZOLE 40MG TABLET PO SCH (20:48)
[2020-08-21] MEDS ORDERED: NIFEDIPINE XL 90 MG TABLET PO SCH (21:00)
[2020-08-21] MEDS ORDERED: HYDRALAZINE HCL 25 MG TABLET PO SCH (21:00)
[2020-08-22 05:43] LABS: Absolute Lymphocytes (CBC) 0.8 K/uL (0.7-4.9); Hematocrit 24.3 % (39.6-49.0); Lymphocytes % 14.7 % (15.3-44.8); MPV 9.4 fL (7.6-11.3); RBC Red Blood Cell Count 2.67 M/uL (4.33-5.43)
[2020-08-22 06:04] LABS: Albumin 2.6 g/dL (3.4-5.0); Bilirubin Total 0.4 mg/dL (0.2-1.0); Magnesium 2.6 mg/dL (1.8-2.4); Phosphorus 4.6 mg/dL (2.5-4.9); Protein, Total 6.5 g/dL (6.4-8.2); Thyroid Stimulating Hormone 0.944 uIU/mL (0.360-3.740)
--- NOTE | 2020-08-22 08:16 | P.PN ---
Subjective Date of Service: 08/23/20 C/o leg cramps. No c/o SOB. Physical Examination - Vital Signs Temperature: 98.1 F Blood Pressure: 155/91 Pulse: 99 Respirations: 19 Pulse Ox (%): 92 - Physical Exam General: In no apparent distress HEENT: Atraumatic, Normocephalic Neck: Supple Respiratory: Clear to auscultation bilaterally Cardiovascular: Edema Gastrointestinal: Soft and benign, Non-distended Musculoskeletal: Swelling Neurological: Normal speech, Normal tone Urinary: Other (No car cath) Assessment And Plan - Plan # ESRD on HD MWF HD received today Cont HD MWF Monitor renal panel Renal diet # Acute respiratory failure 2/2 hypervolemia 2/2 missed HD sessions Resolved HD as above # Htn BP ok Cont current regimen # Anemia Hgb 7.7 Cont ABDOUL # CKD-MBD Monitor Ca & Phos # Dispo September dc today after HD
[2020-08-22] MEDS: METOPROLOL TAR 50 MG TAB PO SCH (09:00)
[2020-08-22] MEDS: FUROSEMIDE 40 MG/4 ML VIAL IV SCH (09:00)
[2020-08-22] MEDS: SEVELAMER CARBONATE 800 MG TABLET PO SCH ×2 (10:42→11:33)
[2020-08-22] MEDS: PANTOPRAZOLE 40MG TABLET PO SCH (10:43)
[2020-08-22] MEDS: TERAZOSIN HCL 5 MG CAP PO SCH (10:43)
--- NOTE | 2020-08-22 10:54 | P.PN ---
Subjective Date of Service: 08/22/20 Subjective: Improving (s/p dialysis yesterday, slight improvement in breathing, feels leg swelling is unchaged. this morning states he was coughing up small amount of blood, which is new. Denies blood in stool/urine. Reports slightly dark stool last night, denies history of GI bleed, reports normal c-scope a few weeks ago) Review of Systems 10-point ROS is otherwise unremarkable Physical Examination - Vital Signs Temperature: 98.1 F Blood Pressure: 155/91 Pulse: 99 Respirations: 19 Pulse Ox (%): 92 Assessment & Plan Physician Review Additional Text: Physical Exam General: Alert, In no apparent distress HEENT: Mucous membr. moist/pink, L nare- appearance of recent bleed Respiratory: mild bibasilar crackles, nonlabored on 2L NC Cardiovascular: Regular rate/rhythm, Normal S1 S2, 1-2+ pitting edema bilateral lower extremities to knees Gastrointestinal: soft, Normal bowel sounds, No tenderness Integumentary: No rashes Neurological: Normal speech, Normal strength Problem List: Dyspnea, hypervolemia secondary to ESRD on HD with multiple missed hemodialysis sessions Hypertension, hyperlipidemia anemia of chronic disease Epistaxis, resolved -nephrology consulted for management of dialysis/ESRD - plan for repeat HD today, possible 3rd consecutive tomorrow if needed -continue lasix,-home medications as appropriate -wean O2 as tolerated -does not appear to have infection as this time -pt with epistaxis, will dc heparin, BP improved as well -anemia of chronic disease, baseline seems in 8-9. slightly decreased this morning, will repeat H/H -denies GI bleed, denies gastric ulcer history/gastritis/GERD -reports recent c-scope done a few weeks ago and told normal (done as routine) Code: full Dispo: anticipate dc in next ~24-48hrs, wean O2, re-eval after dialysis, f/u H/H Time Spent Managing Pts Care (In Minutes): 35
[2020-08-22 11:14] VITALS: O2SAT 91
[2020-08-22 11:40] LABS: Hematocrit 23.6 % (39.6-49.0)
[2020-08-22] MEDS ORDERED: ATORVASTATIN 10 MG TAB PO SCH (21:00)
--- NOTE | 2020-08-22 22:15 | P.DS ---
Admission Date: 08/21/20 Discharge Date: 08/22/20 Disposition: ROUTINE DISCHARGE Discharge Condition: GOOD Reason for Admission: hypoxemia, hypervolemia, missed HD x2 Consultations: Nephrology - Edgard Leroy Procedures: CXR (08/20): [id number] bilateral pulmonary opacities. Small pleural effusions. The heart is moderately enlarged. These findings likely represent mild to moderate CHF Hemodialysis x2 Brief History of Present Illness: 65-year-old male with history of ESRD on HD, hypertension, hyperlipidemia, history of lymphoma presents emergency department for shortness of breath. Patient reports that he last had dialysis on Tuesday, typically goes Tuesday but missed both Tuesday and Tuesday due to doctor's appointments. Patient does make urine and was given 60 mg of Lasix in the emergency department, labs were significant for hemoglobin 9, hematocrit 28 MCV 91.3 creatinine 13.9 GFR for BUN 89, magnesium 2.9. BNP [id number] chest x-ray demonstrates mild to moderate CHF pattern. Patient given Lasix in the emergency department, is making some urine, ED provider wishes to admit for further evaluation and management. Hospital Course: Improved after 2 consecutive days of dialysis. During hospitalization patient's Hgb decreased from 9 to 7.7, and remained stable at 7.7. He was noted to have a mild L epistaxis but not severe enough to cause significant bleed. He was discharged home, to resumed medications as previously prescribed and continue with regular scheduled dialysis. Vital Signs/Physical Exam: Physical Exam General: Alert, In no apparent distress HEENT: Mucous membr. moist/pink, L nare- appearance of recent bleed Respiratory: Clear to auscultation bilaterally, nonlabored on room air Cardiovascular: Regular rate/rhythm, Normal S1 S2, trace-1+ edema bilateral lower legs Gastrointestinal: soft, Normal bowel sounds, No tenderness Integumentary: No rashes Neurological: Normal speech, Normal strength Problem List: Dyspnea, hypervolemia secondary to ESRD on HD with multiple missed hemodialysis sessions Hypertension, hyperlipidemia anemia of chronic disease Epistaxis, resolved Temp Pulse Resp BP Pulse Ox 98.6 F 101 H 18 150/85 H 93 08/22/20 16:00 08/22/20 16:00 08/22/20 16:00 08/22/20 16:00 08/22/20 16:00 Laboratory Data at Discharge: WBC 5.80 K/uL (4.3-10.9) D 08/22/20 05:15 Hgb 7.7 g/dL (13.6-17.9) L* 08/22/20 11:27 Hct 23.6 % (39.6-49.0) L 08/22/20 11:27 Plt Count 240 K/uL (152-406) 08/22/20 05:15 Sodium 144 mmol/L (136-145) 08/22/20 05:15 Potassium 5.0 mmol/L (3.5-5.1) 08/22/20 05:15 BUN 65 mg/dL (7-18) H D 08/22/20 05:15 Creatinine 10.50 mg/dL (0.55-1.3) H* D 08/22/20 05:15 Glucose 92 mg/dL (74-106) 08/22/20 05:15 Phosphorus 4.6 mg/dL (2.5-4.9) 08/22/20 05:15 Magnesium 2.6 mg/dL (1.8-2.4) H 08/22/20 05:15 Total Bilirubin 0.4 mg/dL (0.2-1.0) 08/22/20 05:15 AST 13 U/L (15-37) L 08/22/20 05:15 ALT 20 U/L (12-78) 08/22/20 05:15 Alkaline Phosphatase 45 U/L (45-117) 08/22/20 05:15 Home Medications: Metoprolol Tartrate 100 mg PO DAILY 01/03/18 Nifedipine Xl [Procardia XL*] 90 mg PO BEDTIME 01/03/18 Terazosin HCl [Hytrin*] 5 mg PO BID 01/03/18 Hydralazine HCl 50 mg PO BEDTIME 01/04/18 Pantoprazole [Protonix Tab*] 40 mg PO BID 08/21/20 Fluticasone/Umeclidin/Vilanter [Trelegy Ellipta 100-62.5-25] 1 each IH DAILY 08/22/20 Folic Acid 2 tab PO DAILY 08/22/20 Lovastatin 20 mg PO BEDTIME 08/22/20 Physician Discharge Instructions: PROBLEM: Dyspnea, volume overload GOAL: Clear understanding of disease process INSTRUCTIONS: Diet: Renal Activity: As tolerated You were found to be volume overloaded due to missed hemodialysis and improved with 2 consecutive days of hemodialysis here in the hospital. You were noted to have a slight drop in your hemoglobin to 7.7 and that mild nosebleed that resolved. Your hemoglobin was rechecked and stable. Continue home medications as previously prescribed. Continue dialysis as scheduled Follow up with your PCP in 3-5 days. Follow up with Nephrology in 2-3 weeks. Diet: Renal Activity: Ad carlin Followup: Taurus Alvarado MD [ACTIVE - CAN ADMIT] - Mendez Montez MD [Primary Care Provider] - Time spent managing pt's care (in minutes): 35
[2020-08-23 02:20] VITALS: BP 155/91; TEMP 98.1
== END 2020-08-22 16:48 | disposition home or self-care (01) | DRG 640 ==
LOC: ER 15:36 → ERHOLD 22:22 → 2ND 23:45 → OBSVTOIN 08-21 12:00
PROVIDERS: ADMIT Hospitalist; ATTEND Hospitalist
PROC: 5A1D70Z Performance of Urinary Filtration, Intermittent, Less than 6 Hours Per Day (ICD-10-PCS; principal; 2020-08-21)
DX: E87.70 Fluid overload, unspecified (principal); N18.6 End stage renal disease; J96.00 Acute respiratory failure, unspecified whether with hypoxia or hypercapnia; I12.0 Hypertensive chronic kidney disease with stage 5 chronic kidney disease or end stage renal disease; N25.81 Secondary hyperparathyroidism of renal origin; D63.1 Anemia in chronic kidney disease; E87.5 Hyperkalemia; E78.5 Hyperlipidemia, unspecified; F17.210 Nicotine dependence, cigarettes, uncomplicated; R04.0 Epistaxis; Z91.15 Patient's noncompliance with renal dialysis; Z95.828 Presence of other vascular implants and grafts; Z99.2 Dependence on renal dialysis; Z79.899 Other long term (current) drug therapy; Z20.822 Contact with and (suspected) exposure to COVID-19
CPT/HCPCS: 36415; 71046; 80048; 80053; 80069; 81003; 81015; 83735; 83880; 84443; 85014; 85018; 85025; 90935; 94640; 96374; 99285; G0378; J0360; J1644; J1940; Q5105; U0003

== ENCOUNTER 2020-09-10 19:09 | Emergency (ER) | payer SELFPAY ==
--- OUTSIDE RECORDS SUMMARY | 2020-09-10 19:19 | XMS REPORT | Continuity of Care Document ---
:1955 Author Organization [facility] t Address [address] [place] [address] Care Team Providers Name Role Phone Pcp Primary Care Physician Unavailable Maximo Young MD Attending Clinician Delbert NGUYEN PJoseph Attending Clinician Jimmie NGUYEN Attending Clinician Raul Willoughby MD Attending Clinician Junior BARRY Attending Clinician Unavailable Satinder Smith MD Attending Clinician Jovi Baeza MD Attending Clinician Jaylon Mckoy MD Attending Clinician Roby Underwood MD Attending Clinician Liugi Reynaga MD Attending Clinician Gil MCALLISTER Attending Clinician Silviano Carlos MD Attending Clinician Maximo Young MD Attending Clinician [address] Room Attending Clinician Unavailable Carl Kee MD [...] Unavailable RUDDY FAGAN Admitting Clinician Unavailable Junior BARRY Admitting Clinician Unavailable MARK RUBI Admitting Clinician Unavailable Yane GOLDMAN Admitting Clinician Unavailable JAVIER CAO Admitting Clinician Unavailable Payers Payer Name Policy Type Policy Effective Date Expiration Date Sour ce Number MEDICAREMEDICARE A [id number] [facility] [id number] Problems Condition Condition Condition Status Onset Resolution Last Treating Co mments Source Name Details Category Date Date Treatment Clinician Date Anemia Anemia Disease [facility] [place] Mediastina Mediastina Disease Active [facility] - lymphadeno lymphadeno 00:00: Me dical nati nati 00 [facility] Chronic Chronic Disease Active [facility] bronchitis bronchitis 3-12 [facility] - 00:00: Medical [facility] [place] Left arm Left arm Disease [facility] 2017[facility] - 00:[facility]: Medical [facility] [place] PAD PAD Disease Active 2017-[address] [...] acidosis 0-24 [facility] - 00:00: Medical 00 [place] CLABSI CLABSI Disease Active 2016-[address] [...] lymphoma 3-08 [facility] - 00:[facility]: Medical 00 [place] Lymphoma Lymphoma Disease [facility] [...] for 1-12 [facility] - chemothera chemothera 00:00: Ia dical py py 00 Center management management [...] t 2-16 [facility] - 00:[facility]: Medical 00 [place] Hypertensi Hypertensi Disease Active 2015-[address] on on 2-14 [facility] - 00:00: Medical 00 [place] Hyperchole Hyperchole Disease Active 2015-[address] steremia steremia 2-14 [facility] - 00:00: Medical 00 [place] End stage End stage Disease Active 2015-[address] [facility] renal renal 2-14 [facility] - disease on disease on 00:00: Ia dical dialysis dialysis 00 Center Neck Neck Disease Active 2015-[address] [facility] swelling swelling 2-13 [facility] - 00:00: Medical 00 [place] SOB SOB Disease Active 2015-[address] [facility] (shortness (shortness 2-12 [facility] k[facility] - of breath) of breath) 00:00: Me dical 00 Center Stridor Stridor Disease Active 2015-[address] [facility] [facility] - 00:00: Medical 00 Center Allergies, Adverse Reactions, Alerts This patient has no known allergies or adverse reactions. Family History Family Member Diagnosis Comments Start Date Stop Date Source Natural father Hypertension [facility] Natural mother Hypertension [facility] Paternal grandfather Cancer [facility] Social History Social Habit Start Date Stop Date Quantity Comments Source Sex Assigned At [facility] Tobacco use and 2020-07-25 2020-07-25 Former user [facility] - exposure 00:00:00 00:00:00 [facility] Alcohol intake 2020-07-25 2020-07-25 Current [facility] es - 00:00:00 00:00:00 non-drinker of Medical [...] 23:29: mouth Medical hr tablet 39 daily. Center NIFEdipine Yes 90mg QD Take [address] (ADALAT CC) 3-19 by mouth Luke s - 90 MG 24 hr 23:29: daily. Medi dmiitry tablet 39 Center fluticasone Yes Inhale by [facility] /umeclidin/ 3-19 mouth via Andi es - vilanter 23:29: inhaler. Medic al (TRELEGY 39 Center ELLIPTA INHL) pantoprazol No 40mg Q.5D Take [address] [facility] [facility] [...] DAILY traMADol 2016-05 Yes 50mg Take 1 [facility] (ULTRAM) 50 0-27 tablet (50 [facility] kes - mg tablet 00:00: mg total) Med ical 00 by mouth Center every 6 (six) hours as needed for Pain (s/p pharangeal biospy). Max Daily Amount: 200 mg Vital Signs Vital Name Observation Time Observation Value Comments Source Systolic blood 2020-07-25 19:40:00 158 mm[Hg] [facility] Diastolic blood 2020-07-25 19:40:00 89 mm[Hg] [facility] Heart rate 2020-07-25 19:40:00 95 /min [facility] Body temperature 2020-07-25 19:40:00 36.17 Chari [facility] Respiratory rate 2020-07-25 19:40:00 18 /min [facility] Oxygen saturation in 2020-07-25 19:40:00 95 /min [facility] Arterial blood by Medical Ce nter Pulse oximetry Body weight 2020-07-25 19:11:00 95 kg [facility] BMI 2020-07-25 19:11:00 26.89 kg/m2 [facility] Procedures Procedure Date / Time Performed Performing Clinician Lachelle e PREPARE LEUKO-REDUCED RBC 2020-07-25 23:54:00 Andrew Samuel [facility] HEMODIALYSIS INPATIENT 2020-07-25 19:30:00 Abundio Guy [facility] REPORT OF PROCEDURE - 2020-07-25 19:14:03 Leelee [facility] ENDOSCOPY [facility] REPORT OF PROCEDURE - 2020-07-25 13:09:10 Leelee [facility] TISSUE EXAM 2020-07-25 12:37:00 Mack Mckoy [facility] UPPER ENDOSCOPY,BIOPSY 2020-07-25 12:16:00 Mack Mckoy [facility] COLONOSCOPY 2020-07-25 12:16:00 Mack Mckoy [facility] HEPATITIS B SURFACE 2020-07-25 03:47:00 Abundio Guy [facility] CBC W/PLT COUNT & AUTO 2020-07-25 03:47:00 Funmilayo Willoughby [facility] BASIC METABOLIC PANEL (7) 2020-07-25 03:47:00 Funmilayo Willoughby [facility] BASIC METABOLIC PANEL (7) 2020-07-24 06:08:00 [facility] HEPATIC FUNCTION PANEL 2020-07-24 06:08:00 [facility] MAGNESIUM 2020-07-24 06:08:00 [facility] PHOSPHORUS 2020-07-24 06:08:00 [facility] CBC W/PLT COUNT & AUTO 2020-07-24 06:08:00 [facility] TRANSFUSE LEUKO-REDUCED 2020-07-24 03:45:56 [facility] RED BLOOD CELLS [facility] CBC W/PLT COUNT & AUTO 2020-07-23 21:59:00 [facility] COMPREHENSIVE METABOLIC 2020-07-23 21:59:00 [facility] MAGNESIUM 2020-07-23 21:59:00 [facility] RETICULOCYTE COUNT 2020-07-23 21:59:00 [facility] IRON, TIBC, % SAT. 2020-07-23 21:59:00 [facility] (WITHOUT FERRITIN) [facility] Cente r FERRITIN 2020-07-23 21:59:00 [facility] VITAMIN B12 AND FOLATE 2020-07-23 21:59:00 [facility] HAPTOGLOBIN 2020-07-23 21:59:00 [facility] LACTATE DEHYDROGENASE 2020-07-23 21:59:[address] [facility] PERIPHERAL BLOOD SMEAR - 2020-07-23 21:59:[address] [facility] TYPE AND SCREEN, 2020-07-23 21:59:[address] [facility] - AUTOMATED [facility] Center SARS-COV2/RT-PCR ([facility] & 2020-07-23 20:24:[address] [facility] - REF LABS) [facility] CT CHEST WITHOUT IV 2019-11-15 18:13:[address] [facility] - CONTRAST [facility] CT ABDOMEN/PELVIS WITHOUT 2019-11-15 18:13:[address] [facility] IV [facility]AST [facility] Plan of Care Planned Activity Planned Date Details Comments Source Future Scheduled 2021-01-[address] [facility] - Test 00:00:00 (Season Ended) [code = Medic al Center INFLUENZA VACCINE (Season Ended)] Future Scheduled 2018-10-[address] [facility] - Test 00:00:00 (procedure) [code = Medical Center 45562046] Future Scheduled 2017-01-[address] [...] Medica l Center colon (procedure) [code = 111574523] Encounters Start End Encounter Admission Attending Care Care Encounter Source Date/Time Date/Time Type Type Clinicians Facility Department ID 2020-09-09 2020-09-09 [id number] 13:42:54 14:02:54 Visit Chandra WaiteNair [id number] Maximo [id number] [id number] 2020-07-23 2020-07-23 [facility] [id number] 14:58:20 15:33:17 Visit Chandra Shahnaz [id number] Maximo [id number] [id number] 2020-06-12 2020-06-12 Office ANDREEA Reynaga [id number] 13:43:36 15:53:35 Visit Naif Meyers AMBULATOR [id number] Y [id number] [id number] 2020-03-26 2020-03-26 [facility] [id number] 14:34:45 16:13:29 Visit Chandra Shahnaz [id number] Maximo [id number] [id number] 2020-03-13 2020-03-13 Office Kalen Carlos [id number] 13:22:23 13:52:23 Visit Silviano AMBULATOR [id number] Y 0.2.7.2.686 [id number] 2019-12-06 2019-12-06 Office Kalen Carlos [id number] 15:08:57 15:38:57 Visit Silviano AMBULATOR [id number] Y 0.2.7.2.686 [id number] 2019-11-26 2019-11-26 Office Kalen Carlos [facility] [id number] 11:32:45 16:18:07 Visit Silviano AMBULATOR [id number] Y 0.2.7.2.686 [id number] 2019-09-19 2019-09-19 [facility] [id number] 16:13:39 16:30:34 Visit Chandra Jarar [id number] Maximo 0.2.7.2.686 [id number] Results Test Description Test Time Test Comments Results Result Comments Source Tissue Exam 2020-07-30 14:16:00 Test Item Value Reference Range Interpretation Comme nts Case Report (test code = 104) Surgical Pathology Report Case: [id number] Authorizing Provider: Mack Mckoy, Collected: 07/25/2020 12:37 PM Ordering Location: [address] Received: 07/25/2020 03:25 PM Service Pathologist: Zaida Newsome MD Specimens: A) - Duodenum, random biopsy B) - Biopsy, Gastric, random biopsy DIAGNOSIS (test code = 3220) n4oniRPcCIGrm2lwVZOucWGsZvHdCoKjKjHxXh p cdWMxIHtccnRmMVxlcGljOTIwMlxhbnNpXHNwbH CqT9NqyhggDGzuRZ2fCT6hbYwiwOTouJInISYvR fHld9dqv009cLNth9mcVFIEvtucbHo2wOjbS39v a0O6AqlvE65ydIWlRDjydBPksdwpyjVbNGAkBYU ZIY9KGF5WQTIcVKVIT9ZTRHwhDOJxDIHyOYNBDW JNDphYGY9ZUAUQNSZBQUTmQ8rFEULYTCOAEPcJB YNOGMDAX9VXVLdIPQArA46LEMVMRCvfrEDkAJ8x OTCeKHqICDEBLFfXS1VLAWWCZR1HFZ3HUWFktmJ fIGKgVVBKE8WPLTLMHZAZFuFAKOuNW04TKeKBVN 0LMENCTKNARTIagxuwJVQiEr2uZ3ODWAFAKQgwK hTKAK3EIHIUM5IXDOrtIHFbTGWyVOIJLl8JSTTu KR3LO0JCXySxN8IKQPVPKEzZKFKPXT8ZIALUZY6 TCSMuqFPzUF9lCLQALgOIPlZMU4MDJpOOQY0LDJ JNITGUJDDhLYRIZ7JTHYIXCIRKJuCWGQQOGC3ZT CBbDQIJPwMDBCODIJIaoHYfDG0mQQIMMgRVTRbL D08SWVCYESDgTAmZK8VFDFiBX6MvX6NNDR6BH65 DXCrYHE0GTYKRIDRfG30fJ0VFEXqLRlMSYOVZPo vwJ6IJVN0ooGJaAZZmuTXmfBtsomIdALqph3KdT RqvYINdHS0dxAprPTKjWP2jLNRoG6urqU6stey1 CbCcJECtVsT5KJDzaaQ4Fsm4YTGpLKocj8ibt7U uMVCxKSd4oVygKxOtKFNzn5djgdDmBtSeHXNsES RuTYGhePApP846x7fbk3fklyNyoRR6RWGwHDS9W ZxnxdDicmK2PKncyHDnKoB4AJrjyjVaFHcruxTq nuZwKzl6ZGIgE084DGL9bSunp0kfQSJ0PAUvUJH qJiMoZy5zsSUhM983PXOcEAMHUFUneMx4ZWYbvp OeslRwaEEFf081C703k1ovVVFqgdXxdTzDphjic 8xrS658OGSrvSCaxpBzKbPcNSUdfMDstNL9PWSc WF0jbfwdZOdrDYwrIMBcyoH8HMMsdRNdE8WcOLV tYV6tlyrbJRP8EDljYYWmLGW3VySdAQRmc6Wydo k4FfYjbk8iid78CVV0u4IamFzjMWE7FYF7UaQoY e8xnEQkAPQpVL7rCaBnjJBxWQPwhy58yDtwSRiv CYC6VVAalePzk9Jek2pwDfMvmxZtD9rhF4VpQGB hBBNnWUGxJeWszuIig0Zap5JxeRLtsVd0n7jzIM WoUEHloQdfh7ldWHW7DNSxxZQsF4onxL8rCPRnH L7ctptfu9kbFOghNFksPQBjoOR7ryD5IACcgNBw O2ZcsI9nJOGjFZljSAYbxnh9VtKdFg9dfEGwzSf yMFxzYmtwYWdlXHBnbmNvbnRccGduZGVjXHBsYW luXHBsYWluXGYwXGZzMjRccWxcbGFuZzEwMzNca SmcoGgdVNqrQsSuBBTuWVaaT0xwEeIhXrBgBpe0 WXZspZQmPBRzQkx9DTGgoMWwCTDYvPymhB4uMNB yhQbleE2zoWR7HVXhwfGwtZRXyE4hDGGKbL9gSk Z2YcUaKwL6DBi2EuDirFCsjQ2= COMMENT (test code = 3359) c1pkdZFhSJKamRE7SsMdERRyi1kjy6LanYNwsKK dCBothTFgqeNyue35oZD4cI71RI8vBYSoKcQ5TL FhqcC1Agb1DAUlAPLplWGwE612a9weg1yrdmGtu HE4lTqqYRHtYDVnBAmeBXQrHcVdIG7rhqMrc2Bn EZuxhDCoWDYipBsxnRjbcPXioX8jfB3ntGLzxft kbTAzhH5esOHwDXLqd4e8VWWxWRAuZ0QeY9S4VX Lqa0BjKr1ihCqytHSywy0cdODjUPWjwK0nuNKea B8mTQDpe5JhiTMnKKP8z6DyPUSuOLIegwDnNCzg G06kfkY8JGUkQQUpk5Ypz8Tvyn4vG3LloDRaWoI aRUVrqVmnd3ktGFHnIKHvNZBwpKe0VSTqtODhO0 BlAWEjADQweCykDAQzbQycaOZoQjv4baFtzqgiz KRnq3XmzbInvkYjsFK7SXTxSGUqa05ufUPmsSnl JWM6t9Hfhlj9dNScp4TtxKAnv4GomPEqwsn7dcc zNWTXrZxcoKDndRRzo0LdGWnksSfnhnUoffTmLH OoaF8mocCxLY9caLWbpC== CPT Code(s) (test code = 3357) i5vnhWKrMVHqkOR9FcBfVVDfv5wqu7PcfTTb cGF gIUeimZGmgnWhrl20eCX1vQ72AD3lFCTzQjK3SA IooeH4Iyk1ENVmGPGxyGHpA696t4smz6lcolGvh MW9sGuhRXMxJPXqFBscDSGsMtUeNKlvDTMuzQGt JQO0QPJcOmqyBPF4 CLINICAL HISTORY (test code = 3356) n4mzbGZjYORsiYJ3RzNtENVjg3cbt0B sdHBncGF jEAvtsCNmumXgcg14bWS8vV95OH3dXKSuIcX3IZ JxkhH0Mrt4LIMpQMAbjFQgU502m5dsa5hhboBvi ME7yVupDYBhAZDhRVqwKFPsGuIbvTSeGQ6wEGZv cn0= SPECIMEN SOURCE (test code = 3377) o9flmVXnIVCgaLS3DpEhQUSus4ork2De dHBncGF dBRltpNSgijRzau62iAI9bJ62JT3bQIIkSjH9LD PwzbM3Eov0GVGsBJSjiZNfC685v5tru8rxeuHpg ZY3bFtnSIXpMEJoLTttSCRiMkBaGD7wADT4q4Ds prIyHNhjfkGkPm3pKWhmy2DxbZMvdWTjvJ== GROSS DESCRIPTION (test code = 3366) m5kgpBReNGCspOUwMmQeWBQjNEFcc0 lcZGVmbGF fYiGvHoZwDkAlTjbusQVzJIDtXvVhy6dbw511yS Gso1nnSBEwZzQ2zKEpCRRfoYOwH145o2uqo0nwo xRxlGP9HVXoLGC7QUiiywPgtdT7OPdyzCJwIpA1 SBjmuqLrNKgqqdTuaqQiMvp8VUXhF010KEX6wGa gd6hoXGS1APVpHHRuRnLrHg3mpOSvY363BSXoSP YJUQCpaFf5SFAhmpQdmyXgjBZHo989F675q1nxA GOrrzMgwYwOzgish1foW791ZAVmyZUtjbShXwVv XYFubNNpbMS0MQQkHN2rhphnScOgRM8smtgrPoR hVM0fuxc2OzHzXU3toqsfDqQkUBofKPLjwrsdMD Okw6RbtavnXM2yF1Lbw5D8kT6jaPWbKULqhZScO kUlFPSzxe0prGUjUBsrt1PbSES5wpV8iBTvrRQr XWDfEH06Gbdey7RqGokxLMO6POMwvgEyy9Wca1w xCnTmyqPuG6ceG9ZiYPLxXCMcOXZaPhShauEbk6 Kjz9SpcOUuxMf5e1oiBXFhCIZclBwvy4zmPNU5Y NIeC0Y6hFChg9esCUavAOLsaXZ9fvoiOItjSZWa aoZ4xowgRBpfIFWmzVN6jhynUKntQHKmYlA3iti aWZseJRGmYKC9OUxgv850NVY5UOoqZdddXTdhDN BnbmNvbnRccGduZGVjXHBsYWluXHBsYWluXGYwX RPeAnUisMkytUmnhF0lMpIqCoQiHCwuOL5xKQPz F1dnlELlSADzIUVuH1xgHnAgfC6hiGbnDOlhskO pIYPoYKWKZKSauKUbNSRxktLzm7YfYAberiLbNQ XviJQoCQShAJDvMGNfEC67P5XliySwMBemHDAzZ WRcvM3dBV30tHXbvgZrjdGvOxB8s0GdcqFfJdGb jxTcHeQ3ER7dvManicK0qGBdyXJxPeHdQ55miuE yIH4aVMR8kyiwZkN9iVA8zgPuJjTyM28hvR9eV8 NxSDIyw3UiCNrhQY7otO0wLZdorJFuCTGsFERvm Jl8YLQeXZTfngFmp2TskHb8fXCsJXzdCBCnbH7p lC9cBMRkXATsnyroKMBrGu6kXDFqJ9RlitAzJDr jBYQsqv9skCiiODliSmEaMVFrlCaaLIJlvGlivu UnvwBsRF5rUHZlJ2Unm3Zkn35oobNaOuDlCCYvN DQtR8PvpEUyDsNcfA8is4lcNRGaZUKfTBFcbu4f jC7iZOAum0Y2GYMzrxCsbZTpmDUaiHBbs5GypA5 nIHVwIHRvIDAuMyBjbSBpbiBncmVhdGVzdCBkaW 4nxkPjx62pt1suJ5anMOGxDOIzfQDpxfZhVRYmO NZxhZYlcUH9TTPmwQ0vpS17wuIwaqRFKT0vvJSr JUZtyfMEhApqbqRYqxj5HLhfCYLgOFIYXEIYUXE oQVNDUClccGFyfQ== MICROSCOPIC DESCRIPTION (test code = u6cjpDSdSNLgeJH4LwSfXALba7lgl1 BsdHBnGF 3371) mEKoguGStrnOvyp89eQS2yK06PQ4aSEWhLbE8TT IzbwB8Rlp6WNTeWGBypLWmS235h5kgy0subuAal CM3bYlwVWNjPCIqRHqcPNMqCrMrEQZlBc9haORl LlxwYXJ9 SPECIAL STUDIES (test code = 3376) r0zqvFBrQWQor5ysPEZaoXFoOkWfZgFu ZnRuYmp saCXwHMnprjLcAQtkk9QeB3VgSsOfASxoxtJxJZ UxRbtlkeupTYOqPTM6tsPiRZZdRWefKGMdQTrlE z8vaZYojXfwTmIhMAFxs0hjttQRnmbnuTe5n3tx UZTtFwL4oIIkLXgbI6strcIotOQcE7XefXXiyZi 9c7joObVsCgV8dWCgRPalM3zmsdLktNTbEPXjLW s4rP45KZUtwP4vbWUdISzzhjQiDnV9EKivSJTlT qO7JKYpsENiFPMrC8lrSEGoZCdvTFUxQAxefTWe KQO4hMtyk4R9kAMzuIYzoAqgMcCaOjRcXpXRp4C eJCb8mTxuS3JxXDSvMfX7fEDiJCQwBIsmSHQmGB LvyvU8dVjryiHoc59voODcAPPmTXUnFoTqvMjxN UPaGGHXg1AykKhxEMW6pCh2lHptNnrdNVS7Qyl4 WG9eyk83ckh1wLxyZYHtdwqnTcP4TVvqPVQquvp oEKe0POhgOVZbcWR7ZAUwsSSyG5RwSRQhJK0kdt m3AJD5OUhaWHOtLmN3RZRynCRdPLYhoKklNHjwk 364HES3NtEhEL3eR9Xpk1B0nD2suBSqDVSziVCl BaCoFNZwrt7mrPNfKImsq4KqRYB2byL1lLTbzPP dVMBkGP11Kmbkd2IaIsclb9AiQ29qwNI8XMmkt7 huLM6aYeF0bxDdSWdfj9grrL5vSgO4PDptGC7wR C7aPVJtaS5xuucgHWNoCvVrwyvhFGCrrKnnezNq Kg5ezKfzRXF5LFhqV3pgeD3sGaO8WPzwP7hgzT6 zJIf0DXptzKF9NWBgyE7pYM1plaldu4vcEIlnDJ bkXSEpelP9ajO8AWBvhKSvA2CmnZ3nKKFtDN3em irrt9nmCJW3JDmqPVMjHXH7McYnVMYhm8Ymeqh4 BdQsu2MugMMkKViyN96xs751SGYzqtTnK7oorKQ hcvnzlFMrhwvwIXukmlN3CAPjRGJyNWslGVGkSS ZzMjJcbGFuZzEwMzNcaGljaFxmMVxkYmNoXGYxX MitD6nbBzGiG5EqKOTzGjLlGAnuLMgiuMIjlARc kYM1tG8lDM4aVFTjqHXxG7AsFAEyupNmoOVdMIS 9iINxtXVcIX1aONfmsUVyw8neb4FrL7dkdIfrlL V0RT0bGMDkUMFfXEtmz7BmoH8cAqgyeSQismzcY YdrkoLoEUezhjzgAFSiZUvsB8rcRgMkYNZeyVru NFvjd9EeAGAhXVDgXgdetuBnTZt7tmLfINVubzl oEDXwoBjegM4wAiPeOtYcDrtaXY8cUNEsA3ysdU HeLSFyGEPfM8bgHsMxfB2spJgpOVdqGxCcUqPjL eWBj783ou8uEJFrpCXbzkQXkPXhaX4qCZqlZFde QMtjuINqAMrsj2uhILYcm1d2zRFsPJGqxbSbn1f aAYobqfLcXIQkvNPwtTEbLKAsd83bFNxvfFcpiZ loLBWei8AevPinw0HoRbDxRWjes9NrJ22srKUgv UFuyDmqKLOhyrZmZFLqx08jc7jxYKJyLjP2nZGw wPK4iMOcyGPle3IdjVwfXALvw4dqTCSjaj0dxeq njLVkr7IvfG1aagizECkmjZNkalXyOVQhl0q7pE QqIESmODOpVIamjGt2LVKlw808sg0kaxY0qJVgE AG7BZptFUDaFCNojxYgAJHdjDZitZHhXPGxSAcr XGYxXGZzMjJcbGFuZzEwMzNcaGljaFxmMVxkYmN iQAAkHYpvY7jkOcLkE5NsYNEkOlMxwQXpD0rdpZ FyXHBsYWluXGYxXGZzMjJcbGFuZzEwMzNcaGlja UpxGHgfOkXiKFHaGNtkO6ihKiEjB3GrMVBbLmAs VQhhuOJrgkdmMVjiegRtMTwnncluDQXiSMtrO9a mWmOkFEFckMiuKUbmy6NuKFTbNZCxCsztixAtFE w4usOcPOSzdnefqAGtbficDPlqzhFwXFpembsmT CRmISkgZ3usXiLhHTAulTksBYqje9BdAWFjJAXg NmtqerDxXPuqtWXak1mlu1HzN5inyIoxqEX6YSZ lY7kqtIMqcWY4HZU8uI9iXHeuptFrKNGlp7XuHF SfNLUpTuH6jE6wAPN5HtHAzPsxBQRhRCkbQKSwI GZzMjJcbGFuZzEwMzNcaGljaFxmMVxkYmNoXGYx WVzbW6yzJiTzK8RdUMItHsObkUfiCQueBLf0Gth mkSOywgymWZqczzPhWHvhdvgzWNCrHIzdD0mhXt WuFDBdjZqgZGkgj3ZlVXPzZGMfSforoyKbIGJmR AGtzJGgqGMHPY83LHKlBNVzkNhejD9rqCNPOFXg fyO1b9Z0UJyfROGhQIl5OMinifRzYYLvjK4nJVZ qPC7uROq9raHhXIKhq1GpRA0sGPJksVQlHLH9UR Fvn6CzZ7Uhl7GhQDAvBXJzgv5myqGqPcTQkQSfZ KMueb72JSNmFA8zI8laSQHfXJAcqpRbnIRxx7Xl JDGfmYS6xTZxKD6YSuSEj23aXYHfFPQLcxAfYCV wzTmclZX2osK4xT1dZmCKiBMtMqJRDGswgsCoNB Kzfp0jrrLlVFFiUGVki7TxtXLuwNFngiPhG7Ldf 3WpJRQsfi36WRddqEOfza33YY1lT7Web4KswJ5c HRddPTHuz6QitLPmpEWxCSKgp4WdK7sllqdtJPp dzOFxzM0dSIKdGWw1AAJql7ViSXUaz0DfRtTebx AiDDWxOJPsDXHctV50FYI2mYskeZzsziRxCY2nG MKcmzOaUGMqXOTpmU2rEUvxixBvIZYsrxO9j6Z9 UZtoSYCvzkYlAwraQRO6wuLsjlR3zMBkC1pgbel yFSyvFTRzy2ZkrO7coRAYoHPgi7WnuGQiiMBUkM LsFK7znqMzKZ4nFZY3TDzbNPDSTOYrGXyuMXHpX LC3ZVznJsduEMF5xcOuYDFpt4NtUMzgT8mzE67d mTixmMe0pMVmkRxwcCDpwAAyFYGxlkW4h3Y3EYX tw9UfqgtqIMTiBIeaXJIdTRDzTgOplXCwUyIeGs VlaLwhgPprHfkbLqVtXNUnYGjqB6xgFxVsAzJoJ ikoLTU3sM== Gross assessment was performed at (test [facility] enter, code = 2777) Department of Pathology, [address] [place] [id number], Technical component was performed at [facility] er, (test code = 2778) Department of Pathology, [address] [place] [address], Professional component was performed at [facility] enter, (test code = 2779) Department of Pathology, [address] [place] [address], [facility] CenterT[facility] [id number] 14:16:00Surgical Pathology Report Case: [id number] Authorizing Provider: Mack Mckoy, Collected: 07/25/2020 12:37 PM OrderingLocation: [address] Received: 07/25/2020 03:25 PM Service Pathologist: [...] STARRY STAIN Signing Pathologist Direct Phone Line: [phone] signed by Zaida Newsome MD on 07/30/2020 at 2:16 PMIncreased intraepithelial lymphocytes, luminal parasites, aggregates of foamy macrophages in lamina propria, dysplasia or malignancy are not seen. Gastric metaplasia and reactive changes and mild villous blunting is seen and may be from peptic duodenitis or mucosal injury. Clinical correlation is recommended.32715 x 2, 18911eofphaP. DuodenumB. GastricA. Received in formalin labeled the [...] and lynn bmitted in toto in B1.CARLA Weaver HT (ASCP)Performed.The interpretation of this case included the use of immunohistochemistry or special stains.Control Slides Examined: In-house known positive controls were evaluated along with the test tissue. These control slides run alongside of the patients sample show appropriate staining. Internal positive and negative controls when available are evaluated Immunohistochemistry technical testing was performed at [facility], Pathology Laboratory where it was developed and [...] as qualified to perform high complexity clinical laboratorytesting.[facility], Department of Pathology, [address] [place] [address], [facility], [address] [place] [address], [facility], [facility], [address] [place] [address], [facility] [id number] 23:54:00 Test Item Value Reference Range Interpretation Comments CROSSMATCH (test code = 2264) COMPATIBLE Unit ABO (test code = O Pos 8762992) UNIT NUMBER (test code = [id number] 934-0) Status (test code = 0092696) TX_TIMEINCHART Blood Bank Product (test code RED BLOOD CELLS = 2263) PRODUCT CODE (test code = A3375Q05 933-2) [facility] CenterHEMODIALYSIS [id number] 19:30:00Miriam Jenkins RN 07/25/2020 7:30 PMLab Results Component Value Date WBC 6.1 07/25/2020 HGB9.0 (L) 07/25/2020 HCT 28.2 (L) 07/25/2020 MCV 90.1 07/25/2020 PLT 250 07/25/2020 Lab Results Component Value Date GLUCOSE 94 07/25/2020 CALCIUM 8.6 07/25/2020 NA 138 07/25/2020 K 4.7 07/25/2020 CO2 22 07/25/2020 CL 100 07/25/2020 BUN 66 (H) 07/25/2020 CREATININE 11.75 (H) 07/25/2020 Resul ts for HILL ASHIA VIDAL ( ) as of 07/25/2020 16:04 Ref. Range 07/25/2020 03:47 HBsAg Screen Latest Ref Range: Nonreactive Nonreactive HD treatment completed. UF -3L. Accessed through right arm graft. VS remained stable. Report given to primary RN. Miriam Jenkins RNArrowhead Regional Medical CenterHepatitis B surface [id number] 06:06:00 Test Item Value Reference Range Interpretation Comments HBsAg Screen (test code Nonreactive Nonreactive = 5195-3) AJ (test code = AJ) Specimen is considered negative for HBsAg. Lab Interpretation (test Normal code = 82869-5) [facility] CenterHEPATITIS B SURFACE [id number] 06:06:00 Test Item Value Reference Range Interpretation Comments HEPATITIS B SURFACE ANTIGEN (2) Nonreactive Nonreactive (BEAKER) (test code = 2585) Specimen is considered negative for HBsAg.Basic Metabolic [id number] 05:21:00 Test Item Value Reference Range Interpretation Comments Sodium (test code = 138 meq/L 121-513 4239-2) Potassium (test code = 4.7 meq/L 3.5-5.1 2823-3) Chloride (test code = 100 meq/L 98-107 2075-0) CO2 (test code = 22 meq/L 22-29 2028-9) BUN (test code = 66 mg/dL 7-21 H 3094-0) Creatinine (test code 11.75 mg/dL 0.57-1.25 H = 2160-0) Glucose (test code = 94 mg/dL 70-105 2345-7) Calcium (test code = 8.6 mg/dL 8.4-10.2 52699-9) EGFR (test code = 5 mL/min/1.73 [place] [address]-9) NOT ACCURATE CREATININE CLEARANCE IN PREDICTING GLOMERULAR FILTRATION RATE . ESTIMATED GFR I S NOT APPLICABLE FOR DIALYSIS PATIENTS. AJ (test code = AJ) Hog Slaughterer ID - MERARI Gruber Lab Interpretation Abnormal (test code = 09468-4) [facility] CenterBASI METABOLIC [id number] 05:21:00 Test Item Value Reference Range Interpretation [...] S NOT APPLICABLE FOR DIALYSIS PATIEN TS. Hog Slaughterer ID - MERARI LCBC with platelet count + automated [id number] 04:30:00 Test Item Value Reference Range Interpretation Comments WBC (test code = 6690-2) 6.1 See_Comment [A utomated message] The system [employer] generated this result transmitted ref erence range: 3.5 - 10 .5 K/L. The refe rence range was not u sed to interpret this result as normal/abnor mal. RBC (test code = 789-8) 3.13 See_Comment L [Au tomated message] The system [employer] generated this result transmitted ref erence range: 4.63 - 6 .08 M/L. The refe rence range was not u sed to interpret this result as normal/abnor mal. MCHC (test code = 786-4) 31.9 See_Comment L [A utomated message] The system [employer] generated this result transmitted ref erence range: [...] See_Comment [Aut omated message] 777-3) The system [employer] generated this result transmitted ref erence range: 150 - 45 0 K/CU MM. The referen ce range was not u sed to interpret this result as normal/abnor mal. MPV (test code = 11.1 fL 9.4-12.4 63608-2) nRBC (test code = 413) 0 See_Comment [Aut omated message] The system [employer] generated this result transmitted ref erence range: [...] See_Comment [Aut omated message] 670) The system [employer] generated this result transmitted ref erence range: 1.78 - 5 .38 K/L. The refe rence range was not u sed to interpret this result as normal/abnor mal. # Lymphs (test code = 0.79 See_Comment L [Auto mated message] 414) The system Kineta generated this result transmitted ref erence range: 1.32 - 3 .57 K/L. The refe rence range was not u sed to interpret this result as normal/abnor mal. # Monos (test code = 0.91 See_Comment H [Autom ated message] 415) The system Kin[employer] generated this result transmitted ref erence range: 0.30 - 0 .82 K/L. The refe rence range was not u sed to interpret this result as normal/abnor mal. # Eos (test code = 416) 0.15 See_Comment [Au tomated message] The system Kineta generated this result transmitted ref erence range: 0.04 - 0 .54 K/L. The refe rence range was not u sed to interpret this result as normal/abnor mal. # Baso (test code = 417) 0.03 See_Comment [A utomated message] The system Kineta generated this result transmitted ref erence range: 0.01 - 0 .08 K/L. The refe rence range was not u sed to interpret this result as normal/abnor mal. Immature 0 % 0-1 Granulocytes-Relative (test code = 2801) Lab Interpretation (test Abnormal code = 36118-5) [facility] W/PLT COUNT & AUTO [id number] 04:30:00 Test Item Value Reference Range Interpretation [...] (BEAKER) (test code = 2801) Hepatic function [id number] 08:03:00 Test Item Value Reference Range Interpretation Comments Protein, Total (test 6.4 See_Comment [Autom ated code = 2885-2) message] The system which generated this result transmit alexandra reference range : 6.0 - 8.3 gm/dL . The reference range was not u sed to interpret th is result as normal/abnormal . Albumin (test code = 3.2 g/dL 3.5-5 L 00078-5) Total Bilirubin (test 0.4 mg/dL 0.2-1.2 code = 1975-2) Bilirubin, Direct 0.2 mg/dL 0.1-0.5 (test code = 1968-7) Alkaline Phosphatase 42 U/L 40-150 (test code = 6768-6) AST (test code = 13 U/L 5-34 1920-8) ALT (test code = 19 U/L 6-55 1742-6) AJ (test code = AJ) Hog Slaughterer ID - PIELISE L Lab Interpretation Abnormal (test code = 75988-1) [facility]03:00 Test Item Value Reference Range Interpretation Comments Magnesium (test code = 2.2 mg/dL 1.6-2.6 14273-8) AJ (test code = AJ) Hog Slaughterer ID - PIAYA L Lab Interpretation (test Normal code = 34806-6) [facility] 08:03:00 Test Item Value Reference Range Interpretation Comments Phosphorus (test code = 6.2 mg/dL 2.3-4.7 H 2777-1) AJ (test code = AJ) Hog Slaughterer ID - PIAYA L Lab Interpretation (test Abnormal code = 71809-1) [facility]UM[facility]-18 08:03:00 Test Item Value Reference Range Interpretation Comments MAGNESIUM (BEAKER) (test code = 2.2 mg/dL 1.6-2.6 627) Hog Slaughterer ID - PIELISE [id number] 08:03:00 Test Item Value Reference Range Interpretation Comments PHOSPHORUS (BEAKER) (test code = 6.2 mg/dL 2.3-4.7 H 604) Hog Slaughterer ID - PIAYA LHEPATIC FUNCTION [id number] 08:03:00 Test Item Value Reference Range Interpretation [...] (test code = 19 U/L 6-55 347) Hog Slaughterer ID - PIAYA LBASIC METABOLIC [id number] 08:03:00 Test Item Value Reference Range Interpretation [...] S NOT APPLICABLE FOR DIALYSIS PATIEN TS. Hog Slaughterer ID - PIAYA LSARS-CoV2/RT-PCR (Asymptomatic ONLY)2020-07-24 07:27:00 Test Item Value Reference Range Interpretation Comments SARS-COV2/RT-PCR Negative Not Detected, (test code = Negative, See 72211-4) external report for linked test SARS-COV-2 [facility] AMELIA PERFORMING LAB (test code = 93551-3) AJ (test code = Negative result for [...] of the Act. Fact Sheet for Healthcare Providers:https://www.[employer]/sites/default/f aba/product/documents/F act_Sheet_HC_Providers_L dsb_UMST-KkH-2.pdf Fact Sheet for Healthcare Patients:https://www.[employer]/sites/default/fi les/product/documents/Fa ct_Sheet_Patients_Lyra_S ARS-CoV-2.pdf Performing Laboratory:[facility], [place] [address] [place], [place] [address]ARS-COV2/RT-PCR ([facility])2020-07-24 07:27:00 Test Item Value Reference Range Interpretation Comments SARS-COV2/RT-PCR (test Negative Not Detected, Negative, code = 7185197) See external report for linked test SARS-COV-[address] [facility] AMELIA (test code = 2257494) Negative result for this test determines that [...] 564(g) of the Act.Fact Sheet for Healthcare Providers:https://www.YongChe.[employer]/sites/default/files/product/documents/Fact_Shee l_SC_Xhlfbagra_Inpw_ZORT-MvB-0.pdfFact Sheet for Healthcare Patients:https://www.Yong[employer]/sites/default/files/product/ documents/Eavv_Ixcpp_Qtrqktbm_Rmkj_QASL-OaI-1.pdfPerforming Laboratory:[facility], [place] [address]CLH W/PLT COUNT & AUTO [id number] 06:56:00 Test Item Value Reference Range Interpretation [...] 0-1 PERCENT (BEAKER) (test code = 2801) [id number] 04:39:00 Test Item Value Reference Range Interpretation Comments Ferritin (test code = 545.58 ng/mL 5-275 H 2276-4) AJ (test code = AJ) Hog Slaughterer BO SQUIRES M Lab Interpretation (test Abnormal code = 86538-7) [facility] CenterVitamin B12 and Glfnns0835-19-17 04:39:00 Test Item Value Reference Range Interpretation Comments Vitamin B12 (test 1058 pg/mL 213-816 H code = 2132-9) Folate (test code = 6.60 ng/mL See_Comment L [Automa alexandra 2284-8) message] The system which generated this result transmit alexandra reference range : >=7.00. The reference range was not used to interpret this result as normal/abnormal . AJ (test code = AJ) Hog Slaughterer ID - TAVIA M Lab Interpretation Abnormal (test code = 55177-6) [facility] CenterFERRITIN2021-03-18 04:39:00 Test Item Value Reference Range Interpretation Comments FERRITIN (BEAKER) (test code = 545.58 ng/mL 5.00-275.00 H 361) Hog Slaughterer ID - TAVIA MVITAMIN B12 AND [id number] 04:39:00 Test Item Value Reference Range Interpretation Comments VITAMIN B12 (BEAKER) 1058 pg/mL 213-816 H (test code = 774) FOLATE (BEAKER) 6.60 ng/mL See_Comment L [Automated message] (test code = 362) The system which generated this result transmitted ref erence range: >=7.00. The reference range was not used to interpr et this result as normal/abnormal . Hog Slaughterer ID - TAVIA MPERIPHERAL BLOOD SMEAR - HOLD [id number] 02:10:00 Test Item Value Reference Range Interpretation Comments PERIPHERAL SMEAR SAVE (BEAKER) (test Yes. code = 1815) Peripheral Blood Smear - Hold [id number] 02:10:00Peripheral Smear SaveComment: Yes.[facility] HospitalType and screen, [id number] 23:20:00 Test Item Value Reference Range Interpretation Comments ABO/RH AUTOMATED (BEAKER) (test B POSITIVE code = 2260) Ab Scrn (test code = 890-4) NEGATIVE [facility] CenterHaptoglobin2021-03-17 22:30:00 Test Item Value Reference Range Interpretation Comments Haptoglobin (test code = 155 mg/dL 14-258 4542-7) AJ (test code = AJ) Hog Slaughterer ID - BS Lab Interpretation (test Normal code = 01837-9) [facility] CenterIron, TIBC, % sat. (without ferritin)2020-07-23 22:30:00 Test Item Value Reference Range Interpretation Comments Iron (test code = 2498-4) 43.0 ug/dL 40-160 TIBC (test code = 2500-7) 208 ug/dL 250-450 L Iron % Saturation (test code 21 % 20-55 = 2502-3) AJ (test code = AJ) Hog Slaughterer ID - BS Lab Interpretation (test Abnormal code = 00318-7) [facility] CenterHAPTOGLOBIN2021-03-17 22:30:00 Test Item Value Reference Range Interpretation Comments HAPTOGLOBIN (BEAKER) (test code = 155 mg/dL 14-258 366) Hog Slaughterer ID - BSIRON, TIBC, % SAT. (WITHOUT FERRITIN)2020-07-23 22:30:00 Test Item Value Reference Range Interpretation Comments IRON (BEAKER) (test code = 547) 43.0 ug/dL 40.0-160.0 TOTAL IRON BINDING CAPACITY 208 ug/dL 250-450 L (BEAKER) (test code = 769) IRON % SATURATION (2) (BEAKER) 21 % 20-55 (test code = 2590) Hog Slaughterer ID - BSComprehensive metabolic dvfjk7934-83-27 22:29:00 Test Item Value Reference Range Interpretation Comments Protein, Total (test 6.4 See_Comment [Autom ated code = 2885-2) message] The system which generated this result transmit alexandra reference range : 6.0 - 8.3 gm/dL . The reference range was not u sed to interpret th is result as normal/abnormal . Albumin (test code = 3.3 g/dL 3.5-5 L 97157-7) Alkaline Phosphatase 43 U/L 40-150 (test code = 6768-6) Total Bilirubin (test 0.4 mg/dL 0.2-1.2 code = 1975-2) Sodium (test code = 138 meq/L 784-764 0791-2) Potassium (test code 4.2 meq/L 3.5-5.1 = 2823-3) Chloride (test code = 99 meq/L 98-107 5-0) CO2 (test code = 25 meq/L 22-29 2028-9) BUN (test code = 53 mg/dL 7-21 H 3094-0) Creatinine (test code 9.53 mg/dL 0.57-1.25 H = 2160-0) Glucose (test code = 93 mg/dL 70-105 2345-7) Calcium (test code = 8.4 mg/dL 8.4-10.2 79430-2) AST (test code = 11 U/L 5-34 1920-8) ALT (test code = 19 U/L 6-55 1742-6) EGFR (test code = 7 mL/min/1.73 [place] [address]-4) NOT ACCURATE CREATININE CLEARANCE IN PREDICTING GLOMERULAR FILTRATION RATE . ESTIMATED GFR I S NOT APPLICABLE FOR DIALYSIS PATIEN TS. AJ (test code = AJ) Hog Slaughterer ID - BS Lab Interpretation Abnormal (test code = 12355-5) [facility] CenterLactate dehydrogenase (LDH)2020-07-23 22:29:00 Test Item Value Reference Range Interpretation Comments LDH (test code = 2532-0) 193 U/L 125-220 AJ (test code = AJ) Hog Slaughterer ID - BS Lab Interpretation (test Normal code = 46187-2) [facility] CenterMAGNESIUM2021-03-17 22:29:00 Test Item Value Reference Range Interpretation Comments MAGNESIUM (BEAKER) (test code = 2.2 mg/dL 1.6-2.6 627) Hog Slaughterer ID - BSLACTATE DEHYDROGENASE (LDH)2020-07-23 22:29:00 Test Item Value Reference Range Interpretation Comments LACTATE DEHYDROGENASE (BEAKER) (test 193 U/L 125-220 code = 635) Hog Slaughterer ID - BSCOMPREHENSIVE METABOLIC [id number] 22:29:00 Test Item Value Reference Range Interpretation [...] S NOT APPLICABLE FOR DIALYSIS PATIEN TS. Hog Slaughterer ID - BSReticulocyte enkkx4016-92-12 22:16:00 Test Item Value Reference Range Interpretation Comments % Retic (test code = 1.8 % 0.5-1.8 51935-6) AJ (test code = AJ) Hog Slaughterer ID - 6000 Lab Interpretation (test Normal code = 80173-9) [facility] CenterRETICULOCYTE [id number] 22:16:00 Test Item Value Reference Range Interpretation Comments RETICULOCYTE COUNT PCT (BEAKER) (test 1.8 % 0.5-1.8 code = 575) Hog Slaughterer ID - 6000CBC W/PLT COUNT & AUTO [id number] 22:16:00 Test Item Value Reference Range Interpretation [...] code = 2801) CT, CHEST, WITHOUT IV [id number] 08:39:00FINAL REPORT CT of the chest, abdomen [...] is enlarged. Atrophic kidneys. Signed: Raul Sanchez Verified Date/Time: 11/16/2019 08:39:14 Reading Location: [facility] C013X [facility] Consult Reading Room CT, [id number] 08:39:00FINAL REPORT CT of the chest, abdomen [...] Prostate gland is enlarged. Atrophic kidneys. Signed: Ralu Sanchez Verified Date/Time: 11/16/2019 08:39:14 Reading Location: [facility] Consult Reading Room CT Abdomen/Pelvis without IV [id number] 08:39:00Interface, External Ris In - 11/16/2019 8:41 [...] gland is enlarged. Atrophic kidneys. Signed: Raul Sanchezort Verified Date/Time: 11/16/201908:39:14 Reading Location: [place] [id number] [facility] Consult Reading [facility] Mglengtt0734-23-57 08:39:00Interface, External Ris In - 11/16/2019 8:41 [...] gland is enlarged. Atrophic kidneys. Signed: Raul Sanchezeport Verified Date/Time: 11/16/201908:39:14 Reading Location: [facility] B1 C013X Ortho Consult Reading Room [facility] CenterFINE NEEDLE ASPIRATE BY LPZY3501-07-13 10:42:00Medical Cytology Report Case: [id number] Authorizing Provider: Kalen Carlos MD Collected: 07/28/2018 1400 Ordering Location: [facility] Received: 07/28/2018 1424 SERVICES Pathologist: Evita Dhillon MD Specimen: Lymph Node, Lower Paratracheal, Right, Station 4R LYMPH NODE, LOWERPARATRACHEAL, RIGHT, STATION 4R EBUS FNA AND CORE BIOPSY BY CLINICIAN (CYTOSPINS AND CELL BLOCK OF ASPIRATE): - NEGATIVE FOR MALIGNANCY - ANTHRACOTIC LYMPH NODE FRAGMENTS Signing Pathologist D irect Phone Line: [phone] signed by Evita Dhillon MD on 08/01/2018 at 10:42AMPlease see cases [id number] and [id number].Microscopic slides are received for examination and review on08/01/2018.45107, 27902I7Vdznyevfekb lymphadenopathy, 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 Immunohistochemistry technical testing was performed at [facility], Pathology Laboratory where it was developed and [...] qualified to perform high complexity clinical laboratory testing.[facility], Department of Pathology, [address] [place] [address], [facility]keheoGl[facility], [facility] of [facility]olog y, [address] [place] [address], XhyxfgGlendale Adventist [facility] Center, Department of Pathology, [address] [place] [address], EXYA NEEDLE ASPIRATE BY [id number] 10:41:00Medical Cytology Report Case: [id number] Authorizing Provider: Kalen Carlos MD Collected: 07/28/2018 1356 Ordering Location: [facility] Received: 07/28/2018 1424 SERVICES Pathologist: Evita Dhillon MD Specimen: Ly mph Node, Subcarinal, Station 7 LYMPH NODE, SUBCARINAL, STATION 7 EBUS FNA AND CORE BIOPSY BY CLINICIAN (CYTOSPINS AND CELL BLOCK OF ASPIRATE): - NEGATIVE FOR MALIGNANCY - ANTHRACOTIC LYMPH NODE FRAGMENTS Signing Pathologist Direct Phone Line: [phone] signed by Evita Dhillon MD on 08/01/2018 at 10:41 AMPlease see cases [id number] and [id number].Microscopic slides are received for examination and review on 08/01/2018.89222, 91783E0Htmppobbipo lymphadenopathy, 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 Immunohistochemistry technical testing was performed at [facility], Pathology Laboratory where it was developed and [...] qualified to perform high complexity clinical laboratory testing.[facility], Department of Pathology, [address] [place] [address], Tel QGlendale [facility], [facility] of Pathology, [address] [place] [address], XsvpolGlendale Adventist Medical Center, Department of Pathology, [address] [place] [address], QFWB CYTOMETRY [id number] 12:41:00 Test Item Value Reference Range Interpretation Comments FLOW CYTOMETRY RESULT See Separate Report POINTER (EDENILSON) (test code = 2758) FLOW CYTOMETRY AP CASE # [id number] (EDENILSON) (test code = 2759) FLOW [id number] 10:53:00Flow Cytometry Report Case: [id number] Authorizing Provider: Kalen Carlos MD Collected: 07/28/2018 1355 Ordering Location: [facility] Received: 07/28/2018 1653 SERVICES Pathologist: Malissa Cohen MD Specimen: Other LYMPH NODE, EBUS FINE NEEDLE ASPIRATION, FLOW CYTOMETRY:-PREDOMINANCE OF GRANULOCYTES-NO MONOTYPIC B CELL POPULATION-NO ABERRANT T CELL POPULATION-SEE COMMENT The predominance of granulocytes is suggestive of peripheral blood contamination of the sample. These results require correlation with the morphologic and other features for full interpre tation. 25447Iawhyacflls lymphadenopathy, History of T cell lymphoma s/p therapyLymph node FNA EBUS-guidedCD8, surface-kappa, CD56, surface-lambda, CD5, CD19, CD10, CD3, CD20, CD4, BM97Jsxfjets Viability: 98.3% Number of Events Acquired: 488120 The following populations are identified: Lymphocytes: Bright [...] developed and their performance characteristics determined by [facility]. They have not been cleared or approved by the U.S. Food and Drug Administration. The FDA has determined that such clearance or approval is not necessary. It should not be regarded as investigational or for research. This laboratory is certified under the Clinical Laboratory Improvement Amendments of 1988 ("CLIA") as qualified to perform high-complexity clinical testing.EBUS FNA [id number] 16:00:00 Test Item Value Reference Range Interpretation Comments CYTOLOGY RESULT POINTER See Separate Report (BEAKER) (test code = 2629) EBUS FNA [id number] 16:00:00 Test Item Value Reference Range Interpretation Comments CYTOLOGY RESULT POINTER See Separate Report (BEAKER) (test code = 2629) COMPREHENSIVE METABOLIC [id number] 11:20:00 Test Item Value Reference Range Interpretation [...] S NOT APPLICABLE FOR DIALYSIS PATIEN TS. [id number] 10:18:00 Test Item Value Reference Range Interpretation Comments PARTIAL THROMBOPLASTIN TIME 36.1 seconds 22.5-36.0 H (BEAKER) (test code = 760) PROTHROMBIN TIME/[id number] 10:16:00 Test Item Value Reference Range Interpretation [...] (BEAKER) (test code = 2801) COMPREHENSIVE METABOLIC [id number] 07:46:00 Test Item Value Reference Range Interpretation [...] S NOT APPLICABLE FOR DIALYSIS PATIEN TS. [id number] 07:31:00 Test Item Value Reference Range Interpretation Comments PARTIAL THROMBOPLASTIN TIME 45.9 seconds 22.5-36.0 H (BEAKER) (test code = 760) PROTHROMBIN TIME/[id number] 07:30:00 Test Item Value Reference Range Interpretation [...] PERCENT (BEAKER) (test code = 2801) POCT-GLUCOSE [id number] 06:48:00 Test Item Value Reference Range Interpretation Comments POC-GLUCOSE METER 106 mg/dL 70-[address] [facility] 6720 (BEAKER) (test code = TATY MCHUGH 1538) [address] BASIC METABOLIC [id number] 11:54:00 Test Item Value Reference Range Interpretation [...] PATIEN TS. CBC W/PLT COUNT & AUTO [id number] 11:37:00 Test Item Value Reference Range Interpretation [...] 0-1 PERCENT (BEAKER) (test code = 2801) [id number] 09:37:00 Test Item Value Reference Range Interpretation Comments POC-POTASSIUM 4.2 meq/L 3.6-5.5 TESTED AT [facility] C 6720 (BEAKER) (test code [facility] [address] = 1540) BUN AND [id number] 13:33:00 Test Item Value Reference Range Interpretation [...] S NOT APPLICABLE FOR DIALYSIS PATIEN TS. [id number] 13:32:00 Test Item Value Reference Range Interpretation Comments SODIUM (BEAKER) (test code = 381) 139 meq/L 136-145 POTASSIUM (BEAKER) (test code = 4.2 meq/L 3.5-5.1 379) CHLORIDE (BEAKER) (test code = 382) 100 meq/L 98-107 CO2 (BEAKER) (test code = 355) 27 meq/L 22-29 [id number] 13:14:00 Test Item Value Reference Range Interpretation Comments HEMOGLOBIN (BEAKER) (test code = 12.8 GM/DL 13.7-17.5 L 410) BLOOD [id number] 04:41:00 Test Item Value Reference Range Interpretation Comments CULTURE (BEHARDIK) (test No growth in 5 days code = 1095) POCT-GLUCOSE [id number] 13:11:00 Test Item Value Reference Range Interpretation Comments POC-GLUCOSE METER 169 mg/dL 70-[address] [facility] 6720 (EDENILSON) (test code = T[place] 1538) [address] ANG, TUNNELED CATHETER [id number] 18:19:00FINAL REPORT Tunneled dialysis catheter insertion. History: Renal failure. Modality: Sonography and fluoroscopy. Sedation: Moderate sedation was administered. 2 mg of Versed and 100 mcg of fentanyl IV was used for moderate sedation monitored under my direction. Total intra-service time of sedation was 30 minutes. The patient'svital signs were monitored throughout the procedure and recorded in the patient's medical record by the nurse. Smooth And Burr Worker Composites: [place] Top Lift Scourer: None. Approach: Left internal jugular vein Estimatedblood [...] not be advanced centrally. The inner 3 Andorran micropuncture sheath was placed and contrast injected [...] needle into the right atrium. A 4 Andorran micropuncture sheath was placed and a 0.035 wire advanced into the IVC. A subcutaneous tunnel was created in theleft anterior chest wall by blunt dissection. A 23 cm tip to cuff 15.5 Andorran Duraflow 2 catheter was brought through the [...] MDReport Verified Date/Time: 01/13/2018 18:19:33 Reading Location: [place] [address] Angio Body Reading Room POCT-GLUCOSE [id number] 17:11:00 Test Item Value Reference Range Interpretation Comments POC-GLUCOSE METER 159 mg/dL 70-[address] [facility] 6720 ([facility]) (test code = TATY MCHUGH 1538) [address] CATHETER TIP [id number] 10:23:00 Test Item Value Reference Range Interpretation Comments CULTURE (BEAKER) A <15 [place]ie s On (test code = 1095) Direct Pl ate Pseudomonas aeruginosa CULTURE ([facility]) PSEUDOMONAS A <15 Colonie s On (test [...] Tobramycin (test S code = 25) POCT-GLUCOSE [id number] 08:43:00 Test Item Value Reference Range Interpretation Comments POC-GLUCOSE METER 116 mg/dL 70-[address] [facility] 6720 (BEAKER) (test code = [place] 1538) [address] BASIC METABOLIC [id number] 06:17:00 Test Item Value Reference Range Interpretation [...] S NOT APPLICABLE FOR DIALYSIS PATIEN TS. [id number] 05:32:00 Test Item Value Reference Range Interpretation [...] 0-0 (BEAKER) (test code = 413) POCT-GLUCOSE [id number] 22:24:00 Test Item Value Reference Range Interpretation Comments POC-GLUCOSE METER 118 mg/dL 70-110 H TESTED AT [place] [address] ([facility]) (test code = TAT[place] 1538) [address] POCT-GLUCOSE [id number] 18:32:00 Test Item Value Reference Range Interpretation Comments POC-GLUCOSE METER 146 mg/dL 70-110 H TESTED AT [place] [id number] ([facility]) (test code = TATY MCHUGH 1538) [address] POCT-GLUCOSE [id number] 12:18:00 Test Item Value Reference Range Interpretation Comments POC-GLUCOSE METER 106 mg/dL 70-110 TESTED AT [place] [address] (BEAKER) (test code = [facility] 1538) [address] POCT-GLUCOSE [id number] 07:45:00 Test Item Value Reference Range Interpretation Comments POC-GLUCOSE METER 98 mg/dL 70-110 TESTED AT [place] [address] (BEAKER) (test code = [facility] [address] 1538) BLOOD [id number] 06:00:00 Test Item Value Reference Range Interpretation Comments CULTURE (BEAKER) (test No growth in 5 days code = 1095) BLOOD [id number] 06:00:00 Test Item Value Reference Range Interpretation Comments CULTURE (BEAKER) (test No growth in 5 days code = 1095) POCT-GLUCOSE [id number] 21:04:00 Test Item Value Reference Range Interpretation Comments POC-GLUCOSE METER 124 mg/dL 70-110 H TESTED AT [place] [address] (BEAKER) (test code = [facility] 1538) [address] POCT-GLUCOSE [id number] 17:25:00 Test Item Value Reference Range Interpretation Comments POC-GLUCOSE METER 177 mg/dL 70-110 H TESTED AT [place] [address] (BEAKER) (test code = [facility] 1538) [address] BASIC METABOLIC [id number] 13:32:00 Test Item Value Reference Range Interpretation [...] mg/dL 8.4-10.2 (test code = 697) EGFR ([facility]) (test 5 mL/min/1.73 ESTIMAT ED GFR IS code = 1092) sq m NOT ACCURATE CREATININE CLEARANCE IN PREDICTING GLOMERULAR FILTRATION RATE . ESTIMATED GFR I S NOT APPLICABLE FOR DIALYSIS PATIEN TS. POCT-GLUCOSE [id number] 12:17:00 Test Item Value Reference Range Interpretation Comments POC-GLUCOSE METER 82 mg/dL 70-110 TESTED AT [place] [address] ([facility]) (test code = [facility] [address] 1538) [id number] 11:20:00 Test Item Value Reference Range Interpretation Comments PROTIME ([facility]) (test code = 15.3 seconds 11.7-14.7 H 759) INR ([facility]) (test code = 370) 1.2 <=5.9 PARTIAL THROMBOPLASTIN TIME 30.9 seconds 22.5-36.0 ([facility]) (test code = 760) RECOMMENDED COUMADIN/WARFARIN INR THERAPY RANGESSTANDARD DOSE: 2.0 - 3.0 Includes: PROPHYLAXIS forvenous thrombosis, systemic embolization; TREATMENT for venous thrombosis and/or pulmonary embolus.HIGH RISK: Target INR is 2.5-3.5 for patients with mechanical heart valves.BLOOD [id number] 11:00:00 Test Item Value Reference Range Interpretation Comments CULTURE ([facility]) (test No growth in 5 days code = 1095) POCT-GLUCOSE [id number] 07:51:00 Test Item Value Reference Range Interpretation Comments POC-GLUCOSE METER 107 mg/dL 70-110 TESTED AT [place] [address] ([facility]) (test code = [facility] 1538) [address] CALCIUM, [id number] 06:32:00 Test Item Value Reference Range Interpretation Comments CALCIUM IONIZED ([facility]) (test 0.87 mmol/L 1.12-1.27 L code = 698) PH, BLOOD ([facility]) (test code = 7.38 1810) [id number] 06:13:00 Test Item Value Reference Range Interpretation Comments PHOSPHORUS ([facility]) (test code = 6.9 mg/dL 2.3-4.7 H 604) [id number] 06:13:00 Test Item Value Reference Range Interpretation Comments MAGNESIUM (BEAKER) (test code = 2.6 mg/dL 1.6-2.6 627) CBC W/PLT COUNT & AUTO [id number] 06:00:00 Test Item Value Reference Range Interpretation [...] PERCENT (BEAKER) (test code = 2801) POCT-GLUCOSE [id number] 21:57:00 Test Item Value Reference Range Interpretation Comments POC-GLUCOSE METER 91 mg/dL 70-110 TESTED AT [place] [address] [facility] (test code = [facility] [address] 1538) BASIC METABOLIC [id number] 20:35:00 Test Item Value Reference Range Interpretation [...] NOT APPLICABLE FOR DIALYSIS PATIEN TS. POCT-GLUCOSE [id number] 17:48:00 Test Item Value Reference Range Interpretation Comments POC-GLUCOSE METER 136 mg/dL 70-110 H TESTED AT [place] [address] ([facility]) (test code = [facility] 1538) [address] POCT-GLUCOSE [id number] 12:42:00 Test Item Value Reference Range Interpretation Comments POC-GLUCOSE METER 109 mg/dL 70-110 TESTED AT [place] [address] ([facility]) (test code = [facility] 1538) [address] POCT-GLUCOSE [id number] 08:25:00 Test Item Value Reference Range Interpretation Comments POC-GLUCOSE METER 146 mg/dL 70-110 H TESTED AT [place] [address] ([facility]) (test code = [facility] 1538) [address] VANCOMYCIN LEVEL, [id number] 01:13:00 Test Item Value Reference Range Interpretation Comments VANCOMYCIN RANDOM ([facility]) (test 30.1 ug/mL code = 523) Reference Range: No NormalsPOCT-GLUCOSE [id number] 21:48:00 Test Item Value Reference Range Interpretation Comments POC-GLUCOSE METER 118 mg/dL 70-110 H TESTED AT [place] [address] ([facility]) (test code = [facility] 1538) [address] POCT-GLUCOSE [id number] 18:22:00 Test Item Value Reference Range Interpretation Comments POC-GLUCOSE METER 118 mg/dL 70-110 H TESTED AT [place] [address] ([facility]) (test code = [facility] 1538) [address] POCT-GLUCOSE [id number] 13:46:00 Test Item Value Reference Range Interpretation Comments POC-GLUCOSE METER 107 mg/dL 70-110 TESTED AT [place] [address] ([facility]) (test code = [facility] 1538) [address] POCT-GLUCOSE [id number] 08:36:00 Test Item Value Reference Range Interpretation Comments POC-GLUCOSE METER 107 mg/dL 70-110 TESTED AT [place] [address] ([facility]) (test code = [facility] 1538) [address] SPUTUM CULTURE + GRAM [id number] 07:38:00 Test Item Value Reference Range Interpretation Comments CULTURE (BEAKER) 1+ Normal respiratory (test code = 1095) miller present GRAM STAIN RESULT 1+ WBCs (BEAKER) (test code = 1123) GRAM STAIN RESULT 0-5 epithelial cells (BEAKER) (test code = 84688) GRAM STAIN RESULT 1+ gram positive cocci (BEAKER) (test code = in pairs and clusters 65485) BASIC METABOLIC [id number] 06:57:00 Test Item Value Reference Range Interpretation [...] S NOT APPLICABLE FOR DIALYSIS PATIEN TS. [id number] 06:54:00 Test Item Value Reference Range Interpretation Comments PHOSPHORUS (BEAKER) (test code = 4.9 mg/dL 2.3-4.7 H 604) [id number] 06:54:00 Test Item Value Reference Range Interpretation Comments MAGNESIUM (BEAKER) (test code = 2.2 mg/dL 1.6-2.6 627) CBC W/PLT COUNT & AUTO [id number] 06:38:00 Test Item Value Reference Range Interpretation [...] PERCENT (BEAKER) (test code = 2801) CALCIUM, [id number] 06:36:00 Test Item Value Reference Range Interpretation Comments CALCIUM IONIZED (BEAKER) (test 0.81 mmol/L 1.12-1.27 L code = 698) PH, BLOOD (BEAKER) (test code = 7.43 1810) POCT-GLUCOSE [id number] 20:50:00 Test Item Value Reference Range Interpretation Comments POC-GLUCOSE METER 99 mg/dL 70-110 TESTED AT [place] [id number] ([facility]) (test code = [facility] [address] 1538) POCT-GLUCOSE [id number] 17:36:00 Test Item Value Reference Range Interpretation Comments POC-GLUCOSE METER 154 mg/dL 70-[address] [facility] 6720 ([facility]) (test code = [facility] 1538) [address] POCT-GLUCOSE [id number] 12:44:00 Test Item Value Reference Range Interpretation Comments POC-GLUCOSE METER 116 mg/dL 70-[address] [facility] 6720 (BEAKER) (test code = TAT[place] 1538) [address] POCT-GLUCOSE [id number] 08:59:00 Test Item Value Reference Range Interpretation Comments POC-GLUCOSE METER 108 mg/dL 70-[address] [facility] 6720 (BEAKER) (test code = [facility]AT[place] 1538) [address] (CELLAVISION MANUAL DIFF)2018-01-08 08:20:00 Test Item Value [...] 3438) Received comment: User comments: Slide comments:CALCIUM, [id number] 07:09:00 Test Item Value Reference Range Interpretation Comments CALCIUM IONIZED (BEAKER) (test 0.94 mmol/L 1.12-1.27 L code = 698) PH, BLOOD (BEAKER) (test code = 7.44 1810) BASIC METABOLIC [id number] 06:16:00 Test Item Value Reference Range Interpretation [...] S NOT APPLICABLE FOR DIALYSIS PATIEN TS. [id number] 06:14:00 Test Item Value Reference Range Interpretation Comments PHOSPHORUS (BEAKER) (test code = 5.5 mg/dL 2.3-4.7 H 604) [id number] 06:14:00 Test Item Value Reference Range Interpretation Comments MAGNESIUM (BEAKER) (test code = 2.3 mg/dL 1.6-2.6 627) HEPATIC FUNCTION [id number] 06:14:00 Test Item Value Reference Range Interpretation [...] 68 U/L 6-55 H 347) VANCOMYCIN LEVEL, [id number] 05:56:00 Test Item Value Reference Range Interpretation Comments VANCOMYCIN RANDOM (BEAKER) (test 37.1 ug/mL code = 523) Reference Range: No NormalsPROTHROMBIN [id number] 05:32:00 Test Item Value Reference Range Interpretation [...] 413) ANG, REMOVAL OF TUNNELED CVC W/O [id number] 21:29:00Reason for exam:->BacteremiaFINAL REPORT Tunneled catheter removal: [...] Leslie Verified Date/Time: 01/07/2018 21:29:51 Reading Location: [facility] Radiology Reading Room POCT- GLUCOSE [id number] 21:18:00 Test Item Value Reference Range Interpretation Comments POC-GLUCOSE METER 138 mg/dL 70-110 H TESTED AT [place] [address] ([facility]) (test code = [facility] 1538) [address] POCT-GLUCOSE [id number] 17:07:00 Test Item Value Reference Range Interpretation Comments POC-GLUCOSE METER 126 mg/dL 70-[address] [facility] 6720 ([facility]) (test code = [facility] 1538) [address] LACTIC ACID, VENOUS, WHOLE [id number] 15:44:00 Test Item Value Reference Range Interpretation Comments LACTATE BLOOD VENOUS 1.9 mmol/L 0.5-2.2 Specime n slightly (2) (BEAKER) (test hemolyzed code = 2872) Effective 09/10/2015: Units/Reference Range ChangeNew: 0.5-2.2 mmol/L Previous: 5-20 mg/dLPOCT-GLUCOSE [id number] 13:38:00 Test Item Value Reference Range Interpretation Comments POC-GLUCOSE METER 120 mg/dL 70-[address] [facility] 6720 (BEAKER) (test code = [facility] R [facility] 1538) [address] BASIC METABOLIC [id number] 11:05:00 Test Item Value Reference Range Interpretation [...] S NOT APPLICABLE FOR DIALYSIS PATIEN TS. [id number] 10:45:00 Test Item Value Reference Range Interpretation Comments PHOSPHORUS (BEAKER) (test code = 5.6 mg/dL 2.3-4.7 H 604) [id number] 10:45:00 Test Item Value Reference Range Interpretation Comments MAGNESIUM (BEAKER) (test code = 2.5 mg/dL 1.6-2.6 627) HEPATIC FUNCTION [id number] 10:45:00 Test Item Value Reference Range Interpretation [...] U/L 6-55 H 347) HEPATITIS B SURFACE [id number] 10:16:00 Test Item Value Reference Range Interpretation Comments HEPATITIS B SURFACE ANTIGEN (2) Nonreactive Nonreactive (BEAKER) (test code = 2585) POCT-GLUCOSE [id number] 07:59:00 Test Item Value Reference Range Interpretation Comments POC-GLUCOSE METER 102 mg/dL 70-[address] [facility] 6720 ([facility]) (test code = TAT[place] 1538) [address] VITAMIN D, [id number] 07:50:00 Test Item Value Reference Range Interpretation Comments VITAMIN D 25-OH (BEAKER) (test 47.2 ng/mL 6.6-49.9 code = 2764) Effective 02/16/2017: Reference Range ChangeNew: 6.6-49.9 ng/mL Previous: 13.0-47.8 ng/mLRecommended Vitamin D Target Range: 30.0-40.0 ng/mLVANCOMYCIN LEVEL, [id number] 07:12:00 Test Item Value Reference Range Interpretation Comments VANCOMYCIN RANDOM (BEAKER) (test 22.1 ug/mL code = 523) Reference Range: No NormalsPTH, [id number] 05:52:00 Test Item Value Reference Range Interpretation Comments PARATHYROID HORMONE INTACT 198.9 pg/mL 8.5-72.5 H (BEAKER) (test code = 577) CALCIUM, [id number] 05:45:00 Test Item Value Reference Range Interpretation Comments CALCIUM IONIZED (BEAKER) (test 0.84 mmol/L 1.12-1.27 L code = 698) PH, BLOOD (BEAKER) (test code = 7.51 1810) PROTHROMBIN [id number] 05:13:00 Test Item Value Reference Range Interpretation Comments PROTIME (BEAKER) (test code = 14.7 seconds 11.7-14.7 759) INR (BEAKER) (test code = 370) 1.2 <=5.9 RECOMMENDED COUMADIN/WARFARIN INR THERAPY RANGESSTANDARD DOSE: 2.0 - 3.0 Includes: PROPHYLAXIS forvenous thrombosis, systemic embolization; TREATMENT for venous thrombosis and/or pulmonary embolus.HIGH RISK: Target INR is 2.5-3.5 for patients with mechanical heart valves.POCT-GLUCOSE [id number] 21:13:00 Test Item Value Reference Range Interpretation Comments POC-GLUCOSE METER 92 mg/dL 70-[address] [facility] 6720 (BEAKER) (test code = [facility] [address] 1538) [id number] 18:56:00 Test Item Value Reference Range Interpretation Comments PROCALCITONIN (BEAKER) (test code 51.22 ng/mL <0.05 HH = 3036) SEPSIS RISK (ng/mL)Low: 0.05-0.50Intermediate: 0.51-2.00High: >=2.01URINALYSIS W/ [id number] 18:31:00 Test Item Value Reference Range Interpretation [...] /HPF 520) SOURCE(BEAKER) (test code = 2795) [id number] 17:48:00 Test Item Value Reference Range Interpretation Comments PHOSPHORUS (BEAKER) (test code = 5.1 mg/dL 2.3-4.7 H 604) RAD, CHEST, 1 VIEW, NON [id number] 11:31:00Reason for exam:->chest painShould this be performed at the bedside?->YesFINAL REPORT CLINICAL HISTORY: chest pain TECHNIQUE: 1 view of the chest. COM PARISON: 01/25/2017 IMPRESSION: There is a right-sided dialysis catheter terminating near the cavoatrial junction. Bilateral mid lung atelectasis is again seen. There is no pleural fluid. The cardiomediastinal silhouette is magnified by technique. Signed: Lucy Eugene MDReport Verified Date/Time: 12/09 11:31:21 Reading Location: [facility] Radiology Reading Room CBC W/PLT COUNT & AUTO [id number] 11:14:00 Test Item Value Reference Range Interpretation [...] Received comment: User comments: Slide comments:U/S, RENAL, [id number] 09:04:00Reason for exam:->AKIFINAL REPORT Renal ultrasound Clinical [...] mass CT is recommended.3. Prostatomegaly. Signed: Jeovany Hille[place] Verified Date/Time: 01/06/2018 09:04:28 Reading Location: [address] Ultrasound Reading Room Electronically signedby: JEOVANY HILL MD on 01/06/2018 09:04 AMLACTIC ACID, VENOUS, WHOLE [id number] 07:15:00 Test Item Value Reference Range Interpretation Comments LACTATE BLOOD VENOUS (2) (BEAKER) 0.6 mmol/L 0.5-2.2 (test code = 2872) Effective 09/10/2015: Units/Reference Range ChangeNew: 0.5-2.2 mmol/L Previous: 5-20 mg/dLBASIC METABOLIC [id number] 05:48:00 Test Item Value Reference Range Interpretation [...] APPLICABLE FOR DIALYSIS PATIEN TS. HEPATIC FUNCTION [id number] 05:45:00 Test Item Value Reference Range Interpretation [...] code = 54 U/L 6-55 347) PROTHROMBIN [id number] 05:22:00 Test Item Value Reference Range Interpretation [...] stable. Physician intra- service time was 20minutes. Smooth And Burr Worker Composites: Dimple. Top Lift Scourer: None. Approach: Right internal jugular vein Estimated [...] needle into the right atrium. A 4 Andorran micropuncture sheath was placed. A subcutaneous tunnel was created in the right anterior chest wall by blunt dissection. A 19 cm 15.5 Andorran Duraflow 2 catheter was brought through the [...] MDReport Verified Date/Time: 03/18/2017 09:52:18 Reading Location: [place] [address] Angio Body Reading Room ELLANEOUS LAB [id number] 14:09:00 Test Item Value Reference Range Interpretation Comments SCAN RESULT (test code = 0528713) Result comments: METHICILLIN-SUSCEPTIBLE STAPH. AUREUS (MSSA) DETECTED Staphylococcus aureus DETECTED MecA NOT DETECTED First line therapy: cefazolin or nafcillin (nafcillin preferred if Central Nervous System Infection) ID consultation strongly encouraged. Other organisms and resistance markers not c ontained in this PCR panel cannot be excluded and follow-up of traditional culture results is required. This sample was tested at the [facility] Clinical Microbiology Laboratory using the [employer] Blood Culture ID Panel. This test is FDA cleared for in vitro diagnostic use and has been verified and approved by the [facility] Clinical Microbiology laboratory for clinical use. Reference Range: Not DetectedBLOOD [id number] 11:00:00 Test Item Value Reference Range Interpretation Comments CULTURE (BEAKER) (test No growth in 5 days code = 1095) BLOOD [id number] 11:00:00 Test Item Value Reference Range Interpretation Comments CULTURE (BEAKER) (test No growth in 5 days code = 1095) BLOOD [id number] 18:00:00 Test Item Value Reference Range Interpretation Comments CULTURE (BEAKER) (test No growth in 5 days code = 1095) BLOOD [id number] 18:00:00 Test Item Value Reference Range Interpretation Comments CULTURE (BEAKER) (test No growth in 5 days code = 1095) BASIC METABOLIC [id number] 07:03:00 Test Item Value Reference Range Interpretation [...] WBC 0-0 (BEAKER) (test code = 413) [id number] 06:15:00 Test Item Value Reference Range Interpretation [...] for patients with mechanical heart valves.BASIC METABOLIC [id number] 06:38:00 Test Item Value Reference Range Interpretation [...] S NOT APPLICABLE FOR DIALYSIS PATIEN TS. [id number] 06:26:00 Test Item Value Reference Range Interpretation Comments PHOSPHORUS (BEAKER) (test code = 5.9 mg/dL 2.3-4.7 H 604) [id number] 06:26:00 Test Item Value Reference Range Interpretation Comments MAGNESIUM (BEAKER) (test code = 2.0 mg/dL 1.6-2.6 627) CBC W/PLT COUNT & AUTO [id number] 06:00:00 Test Item Value Reference Range Interpretation [...] 0-1 PERCENT (BEAKER) (test code = 2801) [id number] 07:32:00 Test Item Value Reference Range Interpretation [...] % 20-55 H (test code = 2590) [id number] 07:19:00 Test Item Value Reference Range Interpretation Comments PHOSPHORUS (BEAKER) (test code = 5.3 mg/dL 2.3-4.7 H 604) [id number] 07:19:00 Test Item Value Reference Range Interpretation Comments MAGNESIUM (BEAKER) (test code = 2.2 mg/dL 1.6-2.6 627) BASIC METABOLIC [id number] 07:19:00 Test Item Value Reference Range Interpretation [...] PATIEN TS. CBC W/PLT COUNT & AUTO [id number] 06:51:00 Test Item Value Reference Range Interpretation [...] (BEAKER) (test code = 2801) CATHETER TIP [id number] 16:52:00 Test Item Value Reference Range Interpretation Comments CULTURE (BEAKER) A <15 Colonie s On Direct (test code = 1095) Plate Coa gulase negative Staphylococcus CATHETER TIP [id number] 16:49:00 Test Item Value Reference Range Interpretation Comments CULTURE (BEAKER) (test code = 1095) No growth BLOOD [id number] 08:10:00 Test Item Value Reference Range Interpretation [...] gram 1123) positive cocci in clusters BLOOD [id number] 08:08:00 Test Item Value Reference Interpretation Comments [...] is required. This sample wastested at the [facility] Clinical Microbiology Laboratory using the [employer] Blood Culture ID Panel. This test is FDA cleared for in vitro diagnostic use and has been verified and approved by the [facility] Clinical Microbiology laboratory for clinical use. Reference Range: Not DetectedBASIC METABOLIC [id number] 07:05:00 Test Item Value Reference Range Interpretation [...] S NOT APPLICABLE FOR DIALYSIS PATIEN TS. [id number] 07:01:00 Test Item Value Reference Range Interpretation Comments PHOSPHORUS (BEAKER) (test code = 4.8 mg/dL 2.3-4.7 H 604) [id number] 07:01:00 Test Item Value Reference Range Interpretation Comments MAGNESIUM (BEAKER) (test code = 2.2 mg/dL 1.6-2.6 627) CBC W/PLT COUNT & AUTO [id number] 06:39:00 Test Item Value Reference Range Interpretation [...] 0-1 PERCENT (BEAKER) (test code = 2801) [id number] 23:09:00 Test Item Value Reference Range Interpretation Comments SODIUM (BEAKER) (test code = 381) 141 meq/L 136-145 POTASSIUM (BEAKER) (test code = 4.2 meq/L 3.5-5.1 379) CHLORIDE (BEAKER) (test code = 382) 106 meq/L 98-107 CO2 (BEAKER) (test code = 355) 22 meq/L 22-29 BASIC METABOLIC [id number] 13:19:00 Test Item Value Reference Range Interpretation [...] S NOT APPLICABLE FOR DIALYSIS PATIEN TS. [id number] 13:11:00 Test Item Value Reference Range Interpretation Comments PHOSPHORUS (BEAKER) (test code = 3.6 mg/dL 2.3-4.7 604) [id number] 13:11:00 Test Item Value Reference Range Interpretation Comments MAGNESIUM (BEAKER) (test code = 2.1 mg/dL 1.6-2.6 627) CBC W/PLT COUNT & AUTO [id number] 12:55:00 Test Item Value Reference Range Interpretation [...] = 2801) ANG, REMOVAL OF TUNNELED CVC [id number] 12:44:00Reason for exam:->ESRD bacteremia concern for line [...] MDReport Verified Date/Time: 02/27/2017 12:44:21 Reading Location: [facility] P048 Angio BodyReading Room VANCOMYCIN LEVEL, [id number] 05:46:00 Test Item Value Reference Range Interpretation Comments VANCOMYCIN RANDOM (BEAKER) (test 20.4 ug/mL code = 523) Reference Range: No NormalsHEPATITIS B SURFACE [id number] 15:33:00 Test Item Value Reference Range Interpretation Comments HEPATITIS B SURFACE ANTIGEN (2) Nonreactive Nonreactive (BEAKER) (test code = 2585) CBC W/PLT COUNT & AUTO [id number] 07:12:00 Test Item Value Reference Range Interpretation [...] (BEAKER) (test code = 2801) BASIC METABOLIC [id number] 06:47:00 Test Item Value Reference Range Interpretation [...] S NOT APPLICABLE FOR DIALYSIS PATIEN TS. [id number] 06:43:00 Test Item Value Reference Range Interpretation Comments PHOSPHORUS (BEAKER) (test code = 3.0 mg/dL 2.3-4.7 604) PROTHROMBIN [id number] 06:07:00 Test Item Value Reference Range Interpretation [...] remained stable. Physician intra-servicetime was 20 minutes. Smooth And Burr Worker Composites: Dimple. Top Lift Scourer: None. Approach: Right internal jugular vein Estimated [...] needle into the right atrium. A 4 Andorran micropuncture sheath was placed. A subcutaneous tunnel was created in the right anterior chest wall by blunt dissection. A 19 cm 15.5 Andorran Duraflow 2 catheter was brought through the [...] MDReport Verified Date/Time: 01/26/2017 07:52:45 Reading Location: [address] Body Reading Room POCT- GLUCOSE [id number] 01:07:00 Test Item Value Reference Range Interpretation Comments POC-GLUCOSE METER 179 mg/dL 70-[address] [facility] 6720 ([facility]) (test code = [facility] 1538) [address] BASIC METABOLIC [id number] 21:57:00 Test Item Value Reference Range Interpretation [...] PATIEN TS. CREATINE KINASE (CK), TOTAL AND [id number] 21:52:00 Test Item Value Reference Range Interpretation Comments CREATINE KINASE TOTAL (BEAKER) 159 U/L 29-200 (test code = 380) CREATINE KINASE-MB (BEAKER) (test 0.8 ng/mL 0.0-6.6 code = 750) CREATINE KINASE-MB INDEX (BEAKER) 0.5 % (test code = 395) CK-MB Reference Range:<6.7 Normal6.7-10.0 Borderline>10.0 AbnormalRAD, CHEST, 1 VIEW, NON [id number] 21:52:00Reason for exam:- >CHEST PAINShould this be [...] that terminates in the low SVC. Signed:Liz Thompsoneport Verified Date/Time: 01/25/2017 21:52:27 Reading Location: [facility] C013 Consult Reading Room TROPONIN [id number] 21:27:00 Test Item Value Reference Range Interpretation [...] (test code = 2801) HEPATITIS B SURFACE [id number] 15:55:00 Test Item Value Reference Range Interpretation Comments HEPATITIS B SURFACE ANTIGEN (2) Nonreactive Nonreactive (BEAKER) (test code = 2585) BASIC METABOLIC [id number] 07:30:00 Test Item Value Reference Range Interpretation [...] S NOT APPLICABLE FOR DIALYSIS PATIEN TS. [id number] 07:18:00 Test Item Value Reference Range Interpretation Comments PHOSPHORUS (BEAKER) (test code = 5.9 mg/dL 2.3-4.7 H 604) [id number] 07:18:00 Test Item Value Reference Range Interpretation Comments MAGNESIUM (BEAKER) (test code = 2.2 mg/dL 1.6-2.6 627) PROTHROMBIN [id number] 06:43:00 Test Item Value Reference Range Interpretation [...] = 2801) CBC W/PLT COUNT & AUTO [id number] 14:36:00 Test Item Value Reference Range Interpretation [...] code 1+ few = 480) BASIC METABOLIC [id number] 07:18:00 Test Item Value Reference Range Interpretation [...] S NOT APPLICABLE FOR DIALYSIS PATIEN TS. [id number] 07:11:00 Test Item Value Reference Range Interpretation Comments PHOSPHORUS (BEAKER) (test code = 3.7 mg/dL 2.3-4.7 604) CBC W/PLT COUNT & AUTO [id number] 11:27:00 Test Item Value Reference Range Interpretation [...] 1+ few code = 478) BASIC METABOLIC [id number] 08:40:00 Test Item Value Reference Range Interpretation [...] S NOT APPLICABLE FOR DIALYSIS PATIEN TS. [id number] 08:38:00 Test Item Value Reference Range Interpretation Comments PHOSPHORUS (BEAKER) (test code = 4.0 mg/dL 2.3-4.7 604) CBC W/PLT COUNT & AUTO [id number] 13:06:00 Test Item Value Reference Range Interpretation [...] (test code = Normal 762) HEPATITIS B [id number] 11:49:00 Test Item Value Reference Range Interpretation Comments HEPATITIS B CORE TOTAL ANTIBODY Nonreactive Nonreactive (BEAKER) (test code = 497) HEPATITIS B SURFACE ANTIBODY < mIU/mL <8.0 (BEAKER) (test code = 647) HEPATITIS B SURFACE ANTIGEN (2) Nonreactive Nonreactive (BEAKER) (test code = 2585) [id number] 11:19:00 Test Item Value Reference Range Interpretation [...] for patients with mechanical heart valves.BASIC METABOLIC [id number] 07:32:00 Test Item Value Reference Range Interpretation [...] S NOT APPLICABLE FOR DIALYSIS PATIEN TS. [id number] 07:17:00 Test Item Value Reference Range Interpretation Comments PHOSPHORUS (BEAKER) (test code = 3.3 mg/dL 2.3-4.7 604) [id number] 07:17:00 Test Item Value Reference Range Interpretation Comments MAGNESIUM (BEAKER) (test code = 2.0 mg/dL 1.6-2.6 627) HEPATIC FUNCTION [id number] 07:17:00 Test Item Value Reference Range Interpretation [...] = 13 U/L 6-55 347) COMPREHENSIVE METABOLIC [id number] 17:39:00 Test Item Value Reference Range Interpretation [...] S NOT APPLICABLE FOR DIALYSIS PATIEN TS. [id number] 17:36:00 Test Item Value Reference Range Interpretation Comments MAGNESIUM (BEAKER) 2.2 mg/dL 1.6-2.6 Specimen slightly (test code = 627) hemolyzed CBC W/PLT COUNT & AUTO [id number] 16:57:00 Test Item Value Reference Range Interpretation [...] 0.00-0.20 (test code = 417) 0.00COMPREHENSIVE METABOLIC [id number] 06:52:00 Test Item Value Reference Range Interpretation [...] NOT APPLICABLE FOR DIALYSIS PATIEN TS. URIC [id number] 06:51:00 Test Item Value Reference Range Interpretation Comments URIC ACID (BEAKER) (test code = 8.2 mg/dL 2.6-7.2 H 773) LACTATE DEHYDROGENASE (LDH)2016-08-07 06:51:00 Test Item Value Reference Range Interpretation Comments LACTATE DEHYDROGENASE (BEAKER) (test 233 U/L 125-220 H code = 635) CBC W/PLT COUNT & AUTO [id number] 15:03:00 Test Item Value Reference Range Interpretation [...] (test code = Normal 762) COMPREHENSIVE METABOLIC [id number] 06:13:00 Test Item Value Reference Range Interpretation [...] NOT APPLICABLE FOR DIALYSIS PATIEN TS. URIC [id number] 06:05:00 Test Item Value Reference Range Interpretation Comments URIC ACID (BEAKER) (test code = 5.3 mg/dL 2.6-7.2 773) [id number] 06:05:00 Test Item Value Reference Range Interpretation Comments MAGNESIUM (BEAKER) (test code = 1.9 mg/dL 1.6-2.6 627) [id number] 06:05:00 Test Item Value Reference Range Interpretation Comments PHOSPHORUS (BEAKER) (test code = 3.8 mg/dL 2.3-4.7 604) LACTATE DEHYDROGENASE (LDH)2016-08-06 06:05:00 Test Item Value Reference Range Interpretation Comments LACTATE DEHYDROGENASE (BEAKER) (test 248 U/L 125-220 H code = 635) [id number] 06:51:00 Test Item Value Reference Range Interpretation Comments PHOSPHORUS (BEAKER) (test code = 3.5 mg/dL 2.3-4.7 604) [id number] 06:51:00 Test Item Value Reference Range Interpretation Comments MAGNESIUM (BEAKER) (test code = 1.9 mg/dL 1.6-2.6 627) BASIC METABOLIC [id number] 06:51:00 Test Item Value Reference Range Interpretation [...] PATIEN TS. CBC W/PLT COUNT & AUTO [id number] 06:37:00 Test Item Value Reference Range Interpretation [...] K/ L 0.00-0.20 (test code = 417) 0.00BASI METABOLIC [id number] 12:49:00 Test Item Value Reference Range Interpretation [...] NOT APPLICABLE FOR DIALYSIS PATIEN TS. URIC [id number] 12:46:00 Test Item Value Reference Range Interpretation Comments URIC ACID (BEAKER) (test code = 5.2 mg/dL 2.6-7.2 773) [id number] 12:46:00 Test Item Value Reference Range Interpretation Comments MAGNESIUM (BEAKER) (test code = 2.1 mg/dL 1.6-2.6 627) [id number] 12:46:00 Test Item Value Reference Range Interpretation Comments PHOSPHORUS (BEAKER) (test code = 3.8 mg/dL 2.3-4.7 604) HEPATIC FUNCTION [id number] 12:46:00 Test Item Value Reference Range Interpretation [...] = 635) CBC W/PLT COUNT & AUTO [id number] 12:27:00 Test Item Value Reference Range Interpretation [...] (test code = 417) 0.00HEPATITIS B SURFACE [id number] 14:54:00 Test Item Value Reference Range Interpretation Comments HEPATITIS B SURFACE ANTIGEN (2) Nonreactive Nonreactive (BEAKER) (test code = 2585) CBC W/PLT COUNT & AUTO [id number] 10:30:00 Test Item Value Reference Range Interpretation [...] code = 1+ few 481) COMPREHENSIVE METABOLIC [id number] 06:29:00 Test Item Value Reference Range Interpretation [...] = 635) CBC W/PLT COUNT & AUTO [id number] 06:53:00 Test Item Value Reference Range Interpretation [...] 0.00-0.20 (test code = 417) 0.00COMPREHENSIVE METABOLIC [id number] 06:47:00 Test Item Value Reference Range Interpretation [...] = 635) CBC W/PLT COUNT & AUTO [id number] 11:26:00 Test Item Value Reference Range Interpretation [...] (test code = Normal 762) BASIC METABOLIC [id number] 05:47:00 Test Item Value Reference Range Interpretation [...] NOT APPLICABLE FOR DIALYSIS PATIEN TS. URIC [id number] 05:44:00 Test Item Value Reference Range Interpretation Comments URIC ACID (BEAKER) (test code = 9.4 mg/dL 2.6-7.2 H 773) [id number] 05:44:00 Test Item Value Reference Range Interpretation Comments PHOSPHORUS (BEAKER) (test code = 5.1 mg/dL 2.3-4.7 H 604) HEPATIC FUNCTION [id number] 05:44:00 Test Item Value Reference Range Interpretation [...] = 635) CBC W/PLT COUNT & AUTO [id number] 11:11:00 Test Item Value Reference Range Interpretation [...] 1+ few code = 478) BASIC METABOLIC [id number] 07:05:00 Test Item Value Reference Range Interpretation [...] NOT APPLICABLE FOR DIALYSIS PATIEN TS. URIC [id number] 07:04:00 Test Item Value Reference Range Interpretation Comments URIC ACID (BEAKER) (test code = 4.6 mg/dL 2.6-7.2 773) [id number] 07:04:00 Test Item Value Reference Range Interpretation Comments PHOSPHORUS (BEAKER) (test code = 3.1 mg/dL 2.3-4.7 604) HEPATIC FUNCTION [id number] 07:04:00 Test Item Value Reference Range Interpretation [...] = 635) CBC W/PLT COUNT & AUTO [id number] 06:57:00 Test Item Value Reference Range Interpretation [...] (BEAKER) (test code = 1351) BASIC METABOLIC [id number] 06:09:00 Test Item Value Reference Range Interpretation [...] NOT APPLICABLE FOR DIALYSIS PATIEN TS. URIC [id number] 06:05:00 Test Item Value Reference Range Interpretation Comments URIC ACID (BEAKER) (test code = 6.5 mg/dL 2.6-7.2 773) [id number] 06:05:00 Test Item Value Reference Range Interpretation Comments PHOSPHORUS (BEAKER) (test code = 5.0 mg/dL 2.3-4.7 H 604) HEPATIC FUNCTION [id number] 06:05:00 Test Item Value Reference Range Interpretation [...] 125-220 H code = 635) URINALYSIS W/ [id number] 22:18:00 Test Item Value Reference Range Interpretation [...] SOURCE(BEAKER) (test code Urine, Clean Catch = 5838) CBC W/PLT COUNT & AUTO [id number] 20:30:00 Test Item Value Reference Range Interpretation [...] 0.00-0.20 (test code = 417) 0.00COMPREHENSIVE METABOLIC [id number] 20:25:00 Test Item Value Reference Range Interpretation [...] NOT APPLICABLE FOR DIALYSIS PATIEN TS. URIC [id number] 20:24:00 Test Item Value Reference Range Interpretation Comments URIC ACID (BEAKER) (test code = 5.8 mg/dL 2.6-7.2 773) [id number] 20:24:00 Test Item Value Reference Range Interpretation Comments PHOSPHORUS (BEAKER) (test code = 4.8 mg/dL 2.3-4.7 H 604) LACTATE DEHYDROGENASE (LDH)2016-07-14 20:24:00 Test Item Value Reference Range Interpretation Comments LACTATE DEHYDROGENASE (BEAKER) (test 245 U/L 125-220 H code = 635) PROTHROMBIN [id number] 20:12:00 Test Item Value Reference Range Interpretation Comments PROTIME (BEAKER) (test code = 13.0 seconds 11.7-14.7 759) INR (BEAKER) (test code = 370) 1.0 <=5.9 RECOMMENDED COUMADIN/WARFARIN INR THERAPY RANGESSTANDARD DOSE: 2.0 - 3.0 Includes: PROPHYLAXIS forvenous thrombosis, systemic embolization; TREATMENT for venous thrombosis and/or pulmonary embolus.HIGH RISK: Target INR is 2.5-3.5 for patients with mechanical heart valves.[id number] 15:01:00 Test Item Value Reference Range Interpretation Comments LAB AP CPT CODE (BEAKER) (test code = 11231 2749) CBC W/PLT COUNT & AUTO [id number] 14:40:00 Test Item Value Reference Range Interpretation [...] (test code = Normal 762) BASIC METABOLIC [id number] 07:34:00 Test Item Value Reference Range Interpretation [...] S NOT APPLICABLE FOR DIALYSIS PATIEN TS. [id number] 07:26:00 Test Item Value Reference Range Interpretation Comments PHOSPHORUS (BEAKER) (test code = 5.0 mg/dL 2.3-4.7 H 604) [id number] 07:26:00 Test Item Value Reference Range Interpretation Comments MAGNESIUM (BEAKER) (test code = 2.0 mg/dL 1.6-2.6 627) HEPATIC FUNCTION [id number] 07:26:00 Test Item Value Reference Range Interpretation [...] = 14 U/L 6-55 347) FLOW CYTOMETRY [id number] 11:51:00 Test Item Value Reference Range Interpretation Comments FLOW CYTOMETRY RESULT See Separate Report POINTER (BEAKER) (test code = 2758) FLOW CYTOMETRY AP CASE # [id number] (BEAKER) (test code = 2759) HEPATITIS B SURFACE [id number] 09:53:00 Test Item Value Reference Range Interpretation Comments HEPATITIS B SURFACE ANTIGEN (2) Nonreactive Nonreactive (BEAKER) (test code = 2585) FLOW [id number] 09:46:00 Test Item Value Reference Range Interpretation Comments LAB AP CPT CODE (BEAKER) (test code = 49959 2749) BASIC METABOLIC [id number] 06:27:00 Test Item Value Reference Range Interpretation [...] S NOT APPLICABLE FOR DIALYSIS PATIEN TS. [id number] 06:26:00 Test Item Value Reference Range Interpretation Comments PHOSPHORUS (BEAKER) (test code = 3.3 mg/dL 2.3-4.7 604) [id number] 06:26:00 Test Item Value Reference Range Interpretation Comments MAGNESIUM (BEAKER) (test code = 1.9 mg/dL 1.6-2.6 627) HEPATIC FUNCTION [id number] 06:26:00 Test Item Value Reference Range Interpretation [...] 6-55 347) CBC W/PLT COUNT & AUTO [id number] 06:10:00 Test Item Value Reference Range Interpretation [...] (test code = 417) 0.00CSF CELL COUNT [id number] 16:38:00 Test Item Value Reference Range Interpretation [...] NUMBER CSF (BEAKER) (test 1 code = 5368) CBC W/PLT COUNT & AUTO [id number] 06:59:00 Test Item Value Reference Range Interpretation [...] 0.00-0.20 (test code = 417) 0.00BASIC METABOLIC [id number] 06:18:00 Test Item Value Reference Range Interpretation [...] S NOT APPLICABLE FOR DIALYSIS PATIEN TS. [id number] 06:17:00 Test Item Value Reference Range Interpretation Comments PHOSPHORUS (BEAKER) (test code = 4.9 mg/dL 2.3-4.7 H 604) [id number] 06:17:00 Test Item Value Reference Range Interpretation Comments MAGNESIUM (BEAKER) (test code = 1.8 mg/dL 1.6-2.6 627) HEPATIC FUNCTION [id number] 06:17:00 Test Item Value Reference Range Interpretation [...] = 13 U/L 6-55 347) COMPREHENSIVE METABOLIC [id number] 21:37:00 Test Item Value Reference Range Interpretation [...] NOT APPLICABLE FOR DIALYSIS PATIEN TS. URIC [id number] 21:36:00 Test Item Value Reference Range Interpretation Comments URIC ACID (BEAKER) (test code = 4.9 mg/dL 2.6-7.2 773) LACTATE DEHYDROGENASE (LDH)2016-06-23 21:36:00 Test Item Value Reference Range Interpretation Comments LACTATE DEHYDROGENASE (BEAKER) (test 223 U/L 125-220 H code = 635) PROTHROMBIN [id number] 21:23:00 Test Item Value Reference Range Interpretation [...]
--- NOTE | 2020-09-10 23:15 | ER ---
Nurse's Notes [facility] Name: Naldo Alejandre Age: 65 yrs Sex: Male : 1955 Arrival Date: 09/10/2020 Time: 19:14 Bed 4 Private MD: Diagnosis: Presentation: 09/10 19:24 Chief complaint: Patient states: Routine blood work done yesterday. Cancer doctor said ca1 I need blood transfusion. I don't know the exact numbers but he said it was low. Coronavirus screen: Client denies travel out of the [place] in the last 14 days. At this time, the client does not indicate any symptoms associated with coronavirus-19. Ebola Screen: Patient negative for fever greater than or equal to 101.5 degrees Fahrenheit, and additional compatible Ebola Virus Disease symptoms Patient denies exposure to infectious person. Patient denies travel to an Ebola-affected area in the 21 days before illness onset. No symptoms or risks identified at this time. Initial Sepsis Screen: Does the patient meet any 2 criteria? No. Patient's initial sepsis screen is negative. Does the patient have a suspected source of infection? No. Patient's initial sepsis screen is negative. Risk Assessment: Do you want to hurt yourself or someone else? Patient reports no desire to harm self or others. Onset of symptoms was September 10, 2020. 19:24 Acuity: TERRI 3 ca1 19:24 Method Of Arrival: Ambulatory ca1 Historical: - Allergies: 19:27 No Known Allergies; ca1 - PMHx: 19:27 ESRD; Hyperlipidemia; Hypertension; kidney disease; LYMPHOMA; Dialysis; M,W,F; ca1 - PSHx: 19:27 hip sx; right chest wall jasvir; RUE dialysis access; ca1 - Immunization history:: Client reports having NOT received the Covid vaccine. Flu vaccine is up to date. - Social history:: Smoking status: Patient reports the use of cigarette tobacco products, chewing tobacco. Vital Signs: 19:24 BP 129 / 84; Pulse 83; Resp 16 S; Temp 97.3(TE); Pulse Ox 97% on R/A; Weight 91.63 kg ca1 (R); Height 6 ft. 2 in. (187.96 cm) (R); 19:24 Body Mass Index 25.93 (91.63 kg, 187.96 cm) ca1 ED Course: 19:14 Patient arrived in ED. bp1 19:26 Triage completed. ca1 19:27 Arm band placed on right wrist. ca1 Administered Medications: No medications were administered Outcome: 23:14 Patient left the ED. rr5 Signatures: Tomi Topete RN RN rr5 Aisha Goldman RN RN ca1 Bethany Evans bp1
[2020-09-10 23:25] VITALS: BP 129/84; TEMP 97.3; O2SAT 97
== END 2020-09-10 23:14 | disposition left against medical advice (07) ==
LOC: ER 19:09
DX: Z53.21 Procedure and treatment not carried out due to patient leaving prior to being seen by health care provider (principal)
CPT/HCPCS: 99281

== ENCOUNTER 2020-09-10 23:46 | Emergency (ER) | payer OTHER ==
--- OUTSIDE RECORDS SUMMARY | 2020-09-10 23:53 | XMS REPORT | Continuity of Care Document ---
:1955 Author Organization [facility] t Address [address] [place] [address] Care Team Providers Name Role Phone Pcp Primary Care Physician Unavailable Maximo Young MD Attending Clinician Junior MANDUJANO Attending Clinician Unavailable Junior Mandujano MD Attending Clinician Jimmie NGUYEN Attending Clinician Raul Willoughby MD Attending Clinician Satinder Smith MD Attending Clinician Jovi Baeza MD Attending Clinician Jaylon Mckoy MD Attending Clinician Roby Underwood MD Attending Clinician Luigi Reynaga MD Attending Clinician Gil MCALLISTER Attending Clinician Silviano Carlos MD Attending Clinician Maximo Young MD Attending Clinician [address] Room Attending Clinician Unavailable Carl Kee [...] Expiration Date Sour ce Number MEDICAREMEDICARE A [id number] [facility] [id number] Problems Condition Condition Condition Status Onset Resolution Last Treating Co mments Source Name Details Category Date Date Treatment Clinician Date Anemia Anemia Disease [facility] [place] Mediastina Mediastina Disease Active [facility] - lymphadeno lymphadeno 00:00: Me dical nati nati 00 [place] Chronic Chronic Disease Active [facility] bronchitis bronchitis 3-12 [facility] - 00:00: Medical 00 [place] Left arm Left arm Disease [facility] 2017[facility] - [facility]: Medical 00 [place] PAD PAD Disease Active 2017-[address] [...] acidosis 0-24 [facility] - 00:[facility]: Medical 00 [place] CLABSI CLABSI Disease Active 2016-[address] [...] lymphoma 3-08 [facility] - 00:[facility]: Medical 00 [place] Lymphoma Lymphoma Disease [facility] [...] for 1-12 [facility] - chemothera chemothera 00:00: Tx dical py py 00 Center management management [...] t 2-16 [facility] - 00:[facility]: Medical 00 [place] Hypertensi Hypertensi Disease Active 2015-[address] on on 2-14 [facility] - 00:00: Medical 00 [place] Hyperchole Hyperchole Disease Active 2015-[address] steremia steremia 2-14 [facility] - 00:00: Medical 00 [place] End stage End stage Disease Active 2015-[address] [facility] renal renal 2-14 [facility] - disease on disease on 00:00: Tx dical dialysis dialysis 00 Center Neck Neck Disease Active 2015-[address] [facility] swelling swelling 2-13 [facility] - 00:00: Medical [place] SOB SOB Disease Active 2015-[address] [facility] (shortness (shortness 2-12 A[facility]en kes - of breath) of breath) 00:00: Me dical 00 Center Stridor Stridor Disease Active 2015-[address] [facility] [facility] - 00:00: Medical 00 Center Allergies, Adverse Reactions, Alerts This patient has no known allergies or adverse reactions. Family History Family Member Diagnosis Comments Start Date Stop Date Source Natural father Hypertension [facility] Natural mother Hypertension [facility] Paternal grandfather Cancer [facility] Social History Social Habit Start Date Stop Date Quantity Comments Source Sex Assigned At [facility] Tobacco use and 2020-07-25 2020-07-25 Former user [facility] - exposure 00:00:00 00:00:00 [facility] Alcohol intake 2020-07-25 2020-07-25 Current [facility] es - 00:00:00 00:00:00 non-drinker of Medical [...] DAILY traMADol 2016-05 Yes 50mg Take 1 [facility] (ULTRAM) 50 0-27 tablet (50 [facility] kes - mg tablet 00:00: mg total) Med ical 00 by mouth Center every 6 (six) hours as needed for Pain (s/p pharangeal biospy). Max Daily Amount: 200 mg Vital Signs Vital Name Observation Time Observation Value Comments Source Systolic blood 2020-07-25 19:40:00 158 mm[Hg] [facility] Diastolic blood 2020-07-25 19:40:00 89 mm[Hg] [facility] Heart rate 2020-07-25 19:40:00 95 /min [facility] Body temperature 2020-07-25 19:40:00 36.17 Chari [facility] Respiratory rate 2020-07-25 19:40:00 18 /min [facility] Oxygen saturation in 2020-07-25 19:40:00 95 /min [facility] Arterial blood by Medical Ce nter Pulse oximetry Body weight 2020-07-25 19:11:00 95 kg [facility] BMI 2020-07-25 19:11:00 26.89 kg/m2 [facility] Procedures Procedure Date / Time Performed Performing Clinician Lachelle e PREPARE LEUKO-REDUCED RBC 2020-07-25 23:54:00 Andrew Samuel [facility] HEMODIALYSIS INPATIENT 2020-07-25 19:30:00 Abundio Guy [facility] REPORT OF PROCEDURE - 2020-07-25 19:14:03 Leelee [facility] ENDOSCOPY [facility] REPORT OF PROCEDURE - 2020-07-25 13:09:10 Leelee [facility] TISSUE EXAM 2020-07-25 12:37:00 Mack Mckoy [facility] UPPER ENDOSCOPY,BIOPSY 2020-07-25 12:16:00 aMck Mckoy [facility] COLONOSCOPY 2020-07-25 12:16:00 Mack Mckoy [facility] HEPATITIS B SURFACE 2020-07-25 03:47:00 Abundio Guy [facility] CBC W/PLT COUNT & AUTO 2020-07-25 03:47:00 Funmilayo Willoughby [facility] BASIC METABOLIC PANEL (7) 2020-07-25 03:47:00 Funmilayo Willoughby [facility] BASIC METABOLIC PANEL (7) 2020-07-24 06:08:00 [facility] HEPATIC FUNCTION PANEL 2020-07-24 06:08:00 [facility] MAGNESIUM 2020-07-24 06:08:00 [facility] PHOSPHORUS 2020-07-24 06:08:00 [facility] CBC W/PLT COUNT & AUTO 2020-07-24 06:08:00 [facility] TRANSFUSE LEUKO-REDUCED 2020-07-24 03:45:56 [facility] RED BLOOD CELLS [facility] CBC W/PLT COUNT & AUTO 2020-07-23 21:59:00 [facility] COMPREHENSIVE METABOLIC 2020-07-23 21:59:00 [facility] MAGNESIUM 2020-07-23 21:59:00 [facility] RETICULOCYTE COUNT 2020-07-23 21:59:00 [facility] IRON, TIBC, % SAT. 2020-07-23 21:59:00 [facility] (WITHOUT FERRITIN) [facility] FERR[facility]IN 2020-07-23 21:59:00 [facility] VITAMIN B12 AND FOLATE 2020-07-23 21:59:00 [facility] HAPTOGLOBIN 2020-07-23 21:59:00 [facility] LACTATE DEHYDROGENASE 2020-07-23 21:59:[address] [facility] - [facility]LD[facility] PERIPHERAL BLOOD SMEAR - 2020-07-23 21:59:[address] [facility] TYPE AND SCREEN, 2020-07-23 21:59:[address] [facility] - AUTOMATED [facility] SARS-COV2/RT-PCR ([facility] & 2020-07-23 20:24:[address] [facility] REF LABS) [facility] CT CHEST WITHOUT IV 2019-11-15 18:13:[address] [facility] CONTRAST [facility] CT ABDOMEN/PELVIS WITHOUT 2019-11-15 18:13:[address] [facility] IV [facility]AST [facility] Plan of Care Planned Activity Planned Date Details Comments Source Future Scheduled 2021-01-[address] [facility] - Test 00:00:00 (Season Ended) [code = Medic al Center INFLUENZA VACCINE (Season Ended)] Future Scheduled 2018-10-[address] [facility] Test 00:00:00 (procedure) [code = Medical Center 74490462] Future Scheduled 2017-01-[address] [...] Medica l Center colon (procedure) [code = 338458922] Encounters Start End Encounter Admission Attending Care Care Encounter Source Date/Time Date/Time Type Type Clinicians Facility Department ID 2020-09-09 2020-09-09 [facility] [id number] 13:42:54 14:02:54 Visit Chandra WaiteNair [id number] Maximo [id number] [id number] 2020-07-23 2020-07-23 [facility] [id number] 14:58:20 15:33:17 Visit Chandra Shahnaz [id number] Maximo [id number] [id number] 2020-06-12 2020-06-12 Office ANDREEA Reynaga [id number] 13:43:36 15:53:35 Visit Naif Meyers AMBULATOR [id number] Y 0.2.7.2.686 [id number] 2020-03-26 2020-03-26 [facility] [id number] 14:34:45 16:13:29 Visit Chandra Shahnaz [id number] Maximo [id number] [id number] 2020-03-13 2020-03-13 Office Kalen Carlos [id number] 13:22:23 13:52:23 Visit Silviano AMBULATOR [id number] Y 0.2.7.2.686 [id number] 2019-12-06 2019-12-06 Office Kalen Carlos [id number] 15:08:57 15:38:57 Visit Silviano AMBULATOR [id number] Y 0.2.7.2.686 [id number] 2019-11-26 2019-11-26 Office Kalen Carlos [facility] [id number] 11:32:45 16:18:07 Visit Silviano AMBULATOR [id number] Y 0.2.7.2.686 [id number] 2019-09-19 2019-09-19 [facility] [id number] 16:13:39 16:30:34 Visit Chandra Jarar [id number] Maximo [id number] [id number] Results Test Description Test Time Test Comments Results Result Comments Source Tissue Exam 2020-07-30 14:16:00 Test Item Value Reference Range Interpretation Comme nts Case Report (test code = 104) Surgical Pathology Report Case: [id number] Authorizing Provider: Mack Mckoy, Collected: 07/25/2020 12:37 PM Ordering Location: [address] Received: 07/25/2020 03:25 PM Service Pathologist: Zaida Newsome MD Specimens: A) - Duodenum, random biopsy B) - Biopsy, Gastric, random biopsy DIAGNOSIS (test code = 3220) [id number]eMsWwMq p cdWMxIHtccnRmMVxlcGljOTIwMlxhbnNpXHNwbH BsJ5AgmpxhXOsjLD2oUU4lzMicxQCelBXgHEQeX vMuw3bhk168gQGjo2opWPGDffhtjOc4zSakP28u t2M7PkgsJ82rnRQfPLwqvLZpjmkkoqDaNNAlOMD ESC3HOH5UCELvHWIHA3QFIEgjXUGrVEReCFOOOH XYUcuYQP0WHJWMJSKACOOqW5cCDALFWMYSYMtNK SQIHIGXB3AQXEqYMBRnT57NIJGEAMrntSMoZP8l GEGuSMlCAXPHSMdNW8JAKDDEAM9WHE0AJZPyusN wRWViCQRSF3IRZUPNARVVCfWIFXsAY42GBbTZNE 6URPZOOEAVLORkhkvdYDDbMs5wD4VOBNCLOTqxI bALMM2BOXWJG5AQOJenKICdNMYpHLQXEs2KRIHr GT2FO1UYStBxK2QUSLAYHZuPLXKSSV5AWVRZAX8 WREYzmJUjBI4qXWZZMnJXOoHNU5BMVbVXCL0UVL UBIHLYZCFiYRFUU7WQISCQGXMORhLZQXHNCV0OF ECrAUAGSyVCUNQFAWAkjKJiQL7oTJOREmNHAEtZ Y83MXIJTUMOgYThZO0QHQXlXP9YnH5XDVZ0LJ45 KGUlIRF1FOXVTGFGiC46fS9IFRIxVUmWPPROBEk huP1MSLE2ysWTiUKXenDFdaUzlexXoLMehe7MpX KpnMNEhCF3txTqmPZGnJF2iVWSmM4ebuL3qqfw6 UhCwHCErMbU4PXNvxeQ1Edq3ZBMtXFwbs0gvb8T cGFHzGOt6jZdaDfGkRKYni4xwwqJmKxYmGZIyNF WjRIKsiRRtD877v6dew4pbgjKwmZQ2NGHvEMJ2Z CvaxaJpevR1RXaggDEvHfO9XFzadzImNHxfedEx koHzXll6MGNgD434FSU0uXzrf6gaSRC1LRQxEHR qIaMqWe4yuUQkI309DEIjTKZMSWTufUh8BTFcbn GpxjCcgIJFc895N156b6kaTPHyhmTjgXsLwzfyw 3heX670SMVduXJsjnPvEuHyNGVvqSQhdOW8IWDx CG2dppffQDjmQVtpLPTxaeS5VJEgpUVcX6JtLWC xHK8dwmogZMQ0BMsnFMZhORP5AvZpIMTyx9Rchq k9XaAbmo2quu42AVR6f5DjoPcdQEJ8JDJ7HeMgX p8jaQFrELCbPY7tQpUdvWQqGORilo14qGlyALqa DMX7EHNpmcVnp9Bjq9yiNhNdrjRvJ5xuB5CqUFQ vPUGaHTLnOiHfezIpk4Yhy4GryIJqxAp8e3kjGJ RkJRZvfAmfh7ylZNC0YAKakWKuR4znoS9vNAGwY R4vxwlmc3puRFlsJFdqKRUzoXA4ouA5SLYykVGp O8HizE3bGGUkNKpnSWOvpum9BkRbAd1uqXTpgIe yMFxzYmtwYWdlXHBnbmNvbnRccGduZGVjXHBsYW luXHBsYWluXGYwXGZzMjRccWxcbGFuZzEwMzNca UcikMgdNFnlQwHuRWAtFQtqI0grAlUfVvGdVeu8 FNDnvNDdVSLmIhm4NDHffZRgREBSbQpasP1bMCD btBtifL6suYZ4ODNstnJfnLCUwA1xFFFXtZ7sXz L7ByZiFaL1VBq3OrNxbUZvtO2= COMMENT (test code = 3359) y8lazNWjIMOhuBP8NuCaYSJoj9dak4WssCJruIF pCYmuqCKxzpIlky80aXH4bD82WR1sAAKaUlZ1TJ KsttM8Xoj2ZNIfZWQfoFAwE105z3ate9ukkvGla GF3qOohEYXmBYVeXQfqULYuYqMiNI6yimTgq0Db KOwxzVJyEPVswJisoLempZLojA5vnB2thHQgmic cgRLbbS4ceXMbSTVue5b0RFUkEQZuW1LoZ0W0RN Cbh0CiMk3twRdzfAYvwy5nhXWvMIRykJ5xlUJbc X0ePWYkr0PizQLaLUZ5b0SoCHDpATKipwEvDRyr P48bxaP5FXKhABEsl5Ggl3Phbe6cF7IfyWJoGtO dZWOxiUfww2axMYQnPTSiUHLlqTd7XITybBIbG4 DvUJIiCFCmcZtyFILvkLztnXRlGup3veCjtqqgz OReu4ObnfBdwgTquGT3QVQbWSMdl16kmGBtlWpr OPS3f5Ikdhz3vRZfb5AnlBScv3MsbIRcyck3tti xJIAJfRolpCAjqVZdg2QrJOjzjPmemnLotoJiPZ NnrL6qnnEeUT1roGUrlN== CPT Code(s) (test code = 3357) e3vddHTnDYBxyGL6KuHjDXYes2bfb3YikVAg cGF hKCtknGJlflYgry33cEA8rO34ZX4kLMTmZyZ2HF ZavnM5Edg2TBOaWDNtrVQgR166l1exw1hmqdGqm YE3cJcfGYGlKURtJZhlPXCpPgYcZLmoVWFjiRMy KRZ8BHFzJjuxFHF2 CLINICAL HISTORY (test code = 3356) u8ycuKSeWRKppZE9XjKiHNKzk5bxu5E sdHBncGF zJWocmEVlhmVzvt49mKM2eM31ZW6bUNKrUvM1DM JwcqI2Pxw3TBWcEZCkbGRoQ641f0ing6enxbIyo YQ1aFefPLWzBYKuNQuxEBKgWyVspCKiUK4aDBZh cn0= SPECIMEN SOURCE (test code = 3377) b2iquOOfNITebJX9UwAtJSDsn4dmj8En dHBncGF cRBvqlHPegzUbnv65tLX8iX93SR4zSRXxScV9EU MtieB3Agk3IYFeLPNzqCEoP858e0fyp4pzooFns YU9lCfjVTLsHRPcUUwwPUOqQcQjAA1gQBA2r7Uk lsGfGCqmasZySv7sINksr9GfiQBxaUFkoD== GROSS DESCRIPTION (test code = 3366) f5qqdQUbJYPeeELiJbBjCXAfPGPyu9 lcZGVmbGF wQuOwTyIsGrKbLpvcwVKcGFAxFuXal3luh351nP Ncn8tuATInLaM9fBByGFGrlQUpC427z2kii8gdr sMzcUJ8IIMtIRT4AFxocsQaxdQ1JHhirDIjTfD3 WLrltoGwIRsrctRnbqPkNcz5ZZVvU876INC7mBs pe5lpNEK7DBTfZDOwDqVeIq3oyTYqX955OPGcNY UGOBNgwIn4YCGgueCdvgUzvFKWp213J055f5eyM WTswuTiyPtWlyqws1hwE719BQUpzEKyfiNdDiDn LWYahUFkiDJ4MHYhKQ0kybwnMyQcJW5lzivjRvL lHQ9zcvo2UbKmMS0oxvcwBaRbOBlrMOEdnbfqUE Tes6QxwbtoMT7hK4Ggd9O2rO5flEQrRCPugSXjF aCoSHOsph0idQKlRFxsx1CrSKW0hrG2iGDxrHNv PXKsHX36Gyfke6NlOeivJHA6IMBekxUey7Coy1e gBnWvnySqF1uhE7GcCQOyBMMhWDTlHkCkfhQrb8 Wlb1EisZAnvQu7j6llTRUmUBDwwAjeq5yyLHW5J DJsD6O5iSMsc8ozWXgjLDRjvPG1brvaDLkrHNQz juA7ytrcPDraKICybSZ6nadcMEcvSROiHkN2hgx zQCtbLUSxHLV2SKgog519GIA7IAjpQxzkFTrlCI BnbmNvbnRccGduZGVjXHBsYWluXHBsYWluXGYwX LTkMfBlcNqcrFankL8wSaZaHeTcQOqaYM0zSSXh A6njmDEdGQCfJHLcF2xuKyUpwQ9kiRllLWwqkpV zSDVnMVDFZCRmhCWnVFPzauUsb9SiTWvvtjRmMZ DzxALkUIQmBBHdIISlYK83B2DkrpCoHWinJFJsA NZesV0rCG50tYHgqvPjmaAcEgB3g2CeusNmXwOa jgFjHdC6IL2tnZdcmpL1jUFfcJRmDjExF10yjwP yYD5vYLF6cuqjLcD3sZT1hpFuQoKfW87ovD8bL2 ZkRVRau8CwTXmdPW2otL7dODhqfWZoHYZoEBCuj Ja6NZAtOBLhzxYvg9VmfBn1qQYpPUkoNXSxnQ2s lR4mZPVnXLRgzffyNCBdWa6tKYTyZ3ZturLvAKl aSWDixa9xkKblYPvzYcGnBJRwxZinZLKpyTiskm HkamStUX8xOWMzJ5Swi2Cwo96zssVfKvFdTACeS HFiN1BgdAHtOwGexZ9iq2iiPGCtNYEhXPNfkm1t xQ1hHSZso9M0BCSedfYnpTJklOXiuCAjx2BeqS9 nIHVwIHRvIDAuMyBjbSBpbiBncmVhdGVzdCBkaW 2qyvGaf35cz6ycT1qhUSOzAGDnsSPgamJfSDQqE DOalSUkiJQ2XIZduE4yjZ99zeJkktMFUH9pdINp FBRkfbNOfYnjvfQIfue4KYnaGZLaWPXIAFRPUAN oQVNDUClccGFyfQ== MICROSCOPIC DESCRIPTION (test code = z3nwvLXcTHIihNR9DjCeHPWnm5xpz3 BsdHBnGF 3371) fLOytjHIqinEtlp11aGR6oW19IP7lUIExVmH0RI JgjmO5Dhs9XSQiDMWacXIrH708z7zig8shvwEoo QB3tDvhBLPwHUQxOTmrFYItWiHyBDTwBg8myNSs LlxwYXJ9 SPECIAL STUDIES (test code = 3376) w9grjYDjFXAat2hiNFOhqBFoSgSjMeCa ZnRuYmp uyUHfFOdoovMnXMeqy9SqA2KvDkUaVZdajrCoDD NeOdzulccsTHVsOXB7zsSwQMRiEEdoVNBoXIutJ g6chDOypScsWfZnKNYfa8ybrrBKefjucWd0l7aj TSZwUyQ9aDHrCOthH1udhcKodSDpQ5YwwQJdnIa 9l1apHlNaRpR5lZUlWScwE5clxgXeyMHqTLOfSJ n9sT40ALHcsC1ocMHmGXcreoIkCdV2RPvdWPYyA uD0WXDofFLyWOUyH4ioUORpGVrrVKYiMUgekKEg CCT2kBxqq9O6aNEyjPAdkTzcOxJrXtDtRhQTq0I eMHh1nIfsZ4EsQXLdKyC8oGWhNGTzWGszZFBkIS SoqbG7kWlkvxWuq64veQOtRBAuVOPtLiVrzVdlN WRePIMUw2KxsFevQNC3kFl7tEpyGcghWYE7Nsg7 GW7bkb35vvr5hRdmJJApgfneEcC3PLnkDUAijos xPOv6BBhiJLAmiKO3ITPhgTMoV4KeOBKhZW8wev g4FGX6SYxmQDLuHoZ0GZYitQAnPJRoqIavEGjpl 580WFL2DzLlMF9hC7Ibu6N1pI4qlSXeBYFjoYQs RaXeUJPvvf5yvMNwDLjtq0SlGAF5ssB0rUNnjRB oOPSuZS62Thczl7AgNuwpm3WwO21ymCT0BXvwv0 xzRC0nTtG4eaNkPDhee9acwD5dNuG7RMajZP9xL M8kUNBnzJ7zsucyAXDeLhHnbtbuJHZgiFhzgvAn Vz6ziJkrOCC4XBdnV0cqoC3uLnQ4CYphS4fjlP0 sBAa6BPhvhRB4XRNvkP9yJO9picvdg2ojWQedDM yfVKLiznF2ryY4SWSgpPCiU1MniJ0hNIOcCQ8ow hovl6xhRIM6TCdpSCZfTEQ7UuCxYRVcd5Wctev4 MrItd9QmpPUxOOolP59gq935FYYkhjMpE5swnDQ ujwmyvCRkgazoCAlccrB9TYAzNHWhMEksCAWrLP ZzMjJcbGFuZzEwMzNcaGljaFxmMVxkYmNoXGYxX WkjX8nrCpYrG7GuNXGoVlOlHFdgRPfxmMCrjAWz sEI4bN5nWJ9yTCOyvQQhP1JqMJNvghHeaXYcYPS 4kCVjbNAoGS7zFKjggLNnu7sdu2HyV0wcjImjvS H0CI2pSZYwWPRxYZvie7QvyL3gVjhiiJSrembeO CjnidVuCKsmbnibTNXjQMsrH4bfTeHfTSVnjTff WGteo9IdNMEkDKMoSlrrofYpKYi4zeGsRWMlmlr sYINqdGxxzY5dYpLoPrRbRlxcDU2bCDJrO5gjhN EtVAVaGUUyT8dwDxPgtC3kbZwxSLeiSmFxLuMhR nADi165vu6mOMHvvOPqiuPIxMNzxC4nJRnoOXky INqcwCSvUYhuh0maEZOcq9h9rFLqWGUqkgAfe8q tNRvmicXlVEPnhUDaaJWnQWTsg38bOWalnBfrgU odZEEei8CdcMhjh9HmLxCkJLjuh5HfZ05etUElk FWlrOekJDDffzCdUGUsj26yy9wyAJJyTsM0ySRd eKJ4nTZnfDUqh9HbiHuoQTAgf4vzVGYjtk2ywju fnEPtw8JqzZ2oysmvNGnoiXUwifAlDRVyc9f8nP FeQZLwCHOcIGfocHy2BVCgr264xl5ermT2pHIkL EP9EElvPLAtBGEagqCnETSgiBGisCDcIOEhQUjb XGYxXGZzMjJcbGFuZzEwMzNcaGljaFxmMVxkYmN rFRXeKBgjH8usUsXkB1FmWLNnGpSnmHSpF1micL FyXHBsYWluXGYxXGZzMjJcbGFuZzEwMzNcaGlja BwvQEybKgAhXCIyKQkdL4joUaJcX6AzBBPpFfDc ESlchIAfsmwzPVfzvdEmWIqkqnjtCNFkQKwnV0z tDsPoGCIqeRaoQTygg2VbWCBmJPDbNltjnhVnDL r6hpBfZZOfbzzvkNVulfeeWOqeqpLyGIuqqueqQ BMjDGypN0kkVkBtZKLrvCprLMhob5DvRZSkMXLh UpeycmTpVDaxqMQxn0xym1GaS9vgjGrxpCO9BJD pN9yetBXxdIA4NSC7nZ8jFThykzIcKQDak0GhMV PmRIToBaY7yZ9uCAK6CuMEhBxpKGVnHNfmLERgM GZzMjJcbGFuZzEwMzNcaGljaFxmMVxkYmNoXGYx XJxgY7jiDzBkF1FxTIDoLzAhuEbvARwwTIe2Ewv rgIHmhpcyHRrizpTtEVjtfkwyHCZqGPtjO5rjGs YqGUDhwIdzPBsqz8NhPGUbBFIkTmeptaCaIGFjP BVonTKhiFJIQQ82SDRmDPXsfWalqS2iyDFLUCMp clB2x8L9GLikQAAuHYj4TBtmbiDaRJBkrK5zPQZ pHK9pGWi5qmYqCWLry3GeWA5kWARjmAXwRHP6BA Djj5NdD4Flo8VfGMWkQORanw9bzuAeNmKAgTKaT VIuwz71UFHuJJ3nY0jqVHHvSWStcdYwkNDht4Hq FDPltDA5gALgAW9TEwENq16hWBBpIIQUusBbKEB scHjhkDE6vqM7hS7dExFCzMMoJoCSIXcnrnNcBK Fvhn6nivLrALByHNNdy4DzmAQtbCQiqeFnD1Cov 8TkLBBief44WLmctKBgnk09YH2qH5Yba6HtjU4v OCztEQRte3DqbCXdcTInBUVos3BdX1ukckekVVc ytINfxW9gDISaNGq0ECGdf4YdASYff7BuYzHfxw TlDFZrZMHuMZJmoG26EVO7nLbvzUmiqhEnGK3pA QEbfkDgKVVcKDRvwB7cNGfravIhDHHgxyT8p5P1 MMcvNZLrkeXjDtdcAXH4hxUmscS3rXObI5lgrxb xMCfeDNWrg8HgcJ0fsAOPqXFgd1FczZYzzHDLzK FpTZ7wzqRyED6sXZF1BGjiUWKAUXIqSMhbQEWoW UL0RGylNsyqYPQ0mtNoFNYnm6SmPRfnP8pnL66f bWvrxAy6mFFyqRzaxJJxdTVeVRPrthH1u3S0BWP kc2TmjfljCZMpAYaxUCUrOWElMvNfrTBsXlGxNa GcvWlboYhvUphkKkKuRMNtFOhiN1loYhLuQjDzF tfeSBQ1hX== Gross assessment was performed at (test [facility] enter, code = 2777) Department of Pathology, [address] [place] [address], Technical component was performed at [facility] er, (test code = 2778) Department of Pathology, [address] [place] [address], Professional component was performed at [facility] enter, (test code = 2779) Department of Pathology, [address] [place] [address], [facility] [id number] 14:16:00Surgical Pathology Report Case: [id number] Authorizing Provider: Mack Mckoy, Collected: 07/25/2020 12:37 PM OrderingLocation: [address] Received: 07/25/2020 03:25 PM Service Pathologist: [...] STARRY STAIN Signing Pathologist Direct Phone Line: [phone] signed by Zaida Newsome MD on 07/30/2020 at 2:16 PMIncreased intraepithelial lymphocytes, luminal parasites, aggregates of foamy macrophages in lamina propria, dysplasia or malignancy are not seen. Gastric metaplasia and reactive changes and mild villous blunting is seen and may be from peptic duodenitis or mucosal injury. Clinical correlation is recommended.58412 x 2, 48674dkhbhxW. DuodenumB. GastricA. Received in formalin labeled the [...] evaluated Immunohistochemistry technical testing was performed at [facility], Pathology Laboratory where it was developed and [...] as qualified to perform high complexity clinical laboratorytesting.[facility], Department of Pathology, [address] [place] [address], [facility] [place] [place], [address] [place] [address], [facility] [place] [place], [address] [place] [address], [facility]uk[facility] [id number] 23:54:00 Test Item Value Reference Range Interpretation Comments CROSSMATCH (test code = 2264) COMPATIBLE Unit ABO (test code = O Pos 2475758) UNIT NUMBER (test code = [id number] 934-0) Status (test code = 2183849) TX_TIMEINCHART Blood Bank Product (test code RED BLOOD CELLS = 2263) PRODUCT CODE (test code = U6568B07 933-2) [facility]HE[facility]IS [id number] 19:30:00Miriam Jenkins RN 07/25/2020 7:30 PMLab Results Component Value Date WBC 6.1 07/25/2020 HGB9.0 (L) 07/25/2020 HCT 28.2 (L) 07/25/2020 MCV 90.1 07/25/2020 PLT 250 07/25/2020 Lab Results Component Value Date GLUCOSE 94 07/25/2020 CALCIUM 8.6 07/25/2020 NA 138 07/25/2020 K 4.7 07/25/2020 CO2 22 07/25/2020 CL 100 07/25/2020 BUN 66 (H) 07/25/2020 CREATININE 11.75 (H) 07/25/2020 Resul ts for HILL ASHIA VIADL ( ) as of 07/25/2020 16:04 Ref. Range 07/25/2020 03:47 HBsAg Screen Latest Ref Range: Nonreactive Nonreactive HD treatment completed. UF -3L. Accessed through right arm graft. VS remained stable. Report given to primary RN. Miriam Jenkins RNSeneca HospitalHepatitis B surface [id number] 06:06:00 Test Item Value Reference Range Interpretation Comments HBsAg Screen (test code Nonreactive Nonreactive = 5195-3) AJ (test code = AJ) Specimen is considered negative for HBsAg. Lab Interpretation (test Normal code = 26040-2) [facility] HospitalHEPATITIS [facility] SURFACE [id number] 06:06:00 Test Item Value Reference Range Interpretation Comments HEPATITIS B SURFACE ANTIGEN (2) Nonreactive Nonreactive (BEAKER) (test code = 2585) Specimen is considered negative for HBsAg.Basic Metabolic [id number] 05:21:00 Test Item Value Reference Range Interpretation Comments Sodium (test code = 138 meq/L 072-368 7799-2) Potassium (test code = 4.7 meq/L 3.5-5.1 2823-3) Chloride (test code = 100 meq/L 98-107 2075-0) CO2 (test code = 22 meq/L 22-29 2028-9) BUN (test code = 66 mg/dL 7-21 H 3094-0) Creatinine (test code 11.75 mg/dL 0.57-1.25 H = 2160-0) Glucose (test code = 94 mg/dL 70-105 2345-7) Calcium (test code = 8.6 mg/dL 8.4-10.2 04493-9) EGFR (test code = 5 mL/min/1.73 [place] [address]-7) NOT ACCURATE CREATININE CLEARANCE IN PREDICTING GLOMERULAR FILTRATION RATE . ESTIMATED GFR I S NOT APPLICABLE FOR DIALYSIS PATIENTS. AJ (test code = AJ) Director Zone ID - MERARI Gruber Lab Interpretation Abnormal (test code = 86718-9) [facility] HospitalBASI METABOLIC [id number] 05:21:00 Test Item Value Reference Range Interpretation [...] S NOT APPLICABLE FOR DIALYSIS PATIEN TS. Director Zone ID - MERARI LCBC with platelet count + automated [id number] 04:30:00 Test Item Value Reference Range Interpretation Comments WBC (test code = 6690-2) 6.1 See_Comment [A utomated message] The system [facility] generated this result transmitted ref erence range: 3.5 - 10 .5 K/L. The refe rence range was not u sed to interpret this result as normal/abnor mal. RBC (test code = 789-8) 3.13 See_Comment L [Au tomated message] The system [facility] generated this result transmitted ref erence range: 4.63 - 6 .08 M/L. The refe rence range was not u sed to interpret this result as normal/abnor mal. MCHC (test code = 786-4) 31.9 See_Comment L [A utomated message] The system [facility] generated this result transmitted ref erence range: [...] See_Comment [Aut omated message] 777-3) The system [facility] generated this result transmitted ref erence range: 150 - 45 0 K/CU MM. The referen ce range was not u sed to interpret this result as normal/abnor mal. MPV (test code = 11.1 fL 9.4-12.4 12306-7) nRBC (test code = 413) 0 See_Comment [Aut omated message] The system [facility] generated this result transmitted ref erence range: [...] See_Comment [Aut omated message] 670) The system [facility] generated this result transmitted ref erence range: 1.78 - 5 .38 K/L. The refe rence range was not u sed to interpret this result as normal/abnor mal. # Lymphs (test code = 0.79 See_Comment L [Auto mated message] 414) The system [facility] generated this result transmitted ref erence range: 1.32 - 3 .57 K/L. The refe rence range was not u sed to interpret this result as normal/abnor mal. # Monos (test code = 0.91 See_Comment H [Autom ated message] 415) The system [facility] generated this result transmitted ref erence range: 0.30 - 0 .82 K/L. The refe rence range was not u sed to interpret this result as normal/abnor mal. # Eos (test code = 416) 0.15 See_Comment [Au tomated message] The system [facility] generated this result transmitted ref erence range: 0.04 - 0 .54 K/L. The refe rence range was not u sed to interpret this result as normal/abnor mal. # Baso (test code = 417) 0.03 See_Comment [A utomated message] The system [facility] generated this result transmitted ref erence range: 0.01 - 0 .08 K/L. The refe rence range was not u sed to interpret this result as normal/abnor mal. Immature 0 % 0-1 Granulocytes-Relative (test code = 2801) Lab Interpretation (test Abnormal code = 21496-3) [facility] W/PLT COUNT & AUTO [id number] 04:30:00 Test Item Value Reference Range Interpretation [...] (BEAKER) (test code = 2801) Hepatic function [id number] 08:03:00 Test Item Value Reference Range Interpretation Comments Protein, Total (test 6.4 See_Comment [Autom ated code = 2885-2) message] The system which generated this result transmit alexandra reference range : 6.0 - 8.3 gm/dL . The reference range was not u sed to interpret th is result as normal/abnormal . Albumin (test code = 3.2 g/dL 3.5-5 L 38833-0) Total Bilirubin (test 0.4 mg/dL 0.2-1.2 code = 1975-2) Bilirubin, Direct 0.2 mg/dL 0.1-0.5 (test code = 1968-7) Alkaline Phosphatase 42 U/L 40-150 (test code = 6768-6) AST (test code = 13 U/L 5-34 1920-8) ALT (test code = 19 U/L 6-55 1742-6) AJ (test code = AJ) Director Zone ID - PIELISE L Lab Interpretation Abnormal (test code = 13404-2) [facility] Test Item Value Reference Range Interpretation Comments Magnesium (test code = 2.2 mg/dL 1.6-2.6 59009-4) AJ (test code = AJ) Director Zone ID - PIAYA L Lab Interpretation (test Normal code = 82483-4) [facility] 08:03:00 Test Item Value Reference Range Interpretation Comments Phosphorus (test code = 6.2 mg/dL 2.3-4.7 H 2777-1) AJ (test code = AJ) Director Zone ID - PIAYA L Lab Interpretation (test Abnormal code = 08765-9) [facility] 08:03:00 Test Item Value Reference Range Interpretation Comments MAGNESIUM (BEAKER) (test code = 2.2 mg/dL 1.6-2.6 627) Director Zone ID - PIELISE [id number] 08:03:00 Test Item Value Reference Range Interpretation Comments PHOSPHORUS (BEAKER) (test code = 6.2 mg/dL 2.3-4.7 H 604) Director Zone ID - PIAYA LHEPATIC FUNCTION [id number] 08:03:00 Test Item Value Reference Range Interpretation [...] (test code = 19 U/L 6-55 347) Director Zone ID - PIAYA LBASIC METABOLIC [id number] 08:03:00 Test Item Value Reference Range Interpretation [...] S NOT APPLICABLE FOR DIALYSIS PATIEN TS. Director Zone ID - PIAYA LSARS-CoV2/RT-PCR (Asymptomatic ONLY)2020-07-24 07:27:00 Test Item Value Reference Range Interpretation Comments SARS-COV2/RT-PCR Negative Not Detected, (test code = Negative, See 47215-1) external report for linked test SARS-COV-2 [facility] PERFORMING LAB (test code = 93436-9) AJ (test code = Negative result for [...] of the Act. Fact Sheet for Healthcare Providers:https://www.Delivery Hero/sites/default/f aba/product/documents/F act_Sheet_HC_Providers_L yzn_TNUJ-ZoX-7.pdf Fact Sheet for Healthcare Patients:https://www.Apontador/sites/default/fi les/product/documents/Fa ct_Sheet_Patients_Lyra_S ARS-CoV-2.pdf Performing Laboratory:[facility], [place] [address] [place], [place] [address]ARS-COV2/RT-PCR ([facility])2020-07-24 07:27:00 Test Item Value Reference Range Interpretation Comments SARS-COV2/RT-PCR (test Negative Not Detected, Negative, code = 5751191) See external report for linked test SARS-COV-2 PERFORMING LAB [facility] AM[facility] (test code = 9029095) Negative result for this test determines that [...] 564(g) of the Act.Fact Sheet for Healthcare Providers:https://www.Dapu.com.CG Scholar/sites/default/files/product/documents/Fact_Shee b_DN_Ccweksmgn_Ljrj_CTLU-TsI-7.pdfFact Sheet for Healthcare Patients:https://www.Dapu.com.[employer] Scholar/sites/default/files/product/ documents/Yvrp_Xoovg_Gsqxjmei_Osnx_EZDJ-EyT-4.pdfPerforming Laboratory:[facility], [place] [address]ISG W/PLT COUNT & AUTO [id number] 06:56:00 Test Item Value Reference Range Interpretation [...] 0-1 PERCENT (BEAKER) (test code = 2801) [id number] 04:39:00 Test Item Value Reference Range Interpretation Comments Ferritin (test code = 545.58 ng/mL 5-275 H 2276-4) AJ (test code = AJ) Director Zone BO SQUIRES M Lab Interpretation (test Abnormal code = 12852-0) [facility]12 and [id number] 04:39:00 Test Item Value Reference Range Interpretation Comments Vitamin B12 (test 1058 pg/mL 213-816 H code = 2132-9) Folate (test code = 6.60 ng/mL See_Comment L [Automa alexandra 2284-8) message] The system which generated this result transmit alexandra reference range : >=7.00. The reference range was not used to interpret this result as normal/abnormal . AJ (test code = AJ) Director Zone ID - TAVIA M Lab Interpretation Abnormal (test code = 90850-5) [facility]IN[facility] 04:39:00 Test Item Value Reference Range Interpretation Comments FERRITIN (BEAKER) (test code = 545.58 ng/mL 5.00-275.00 H 361) Director Zone ID - TAVIA MVITAMIN B12 AND [id number] 04:39:00 Test Item Value Reference Range Interpretation Comments VITAMIN B12 (BEAKER) 1058 pg/mL 213-816 H (test code = 774) FOLATE (BEAKER) 6.60 ng/mL See_Comment L [Automated message] (test code = 362) The system which generated this result transmitted ref erence range: >=7.00. The reference range was not used to interpr et this result as normal/abnormal . Director Zone ID - TAVIA MPERIPHERAL BLOOD SMEAR - HOLD [id number] 02:10:00 Test Item Value Reference Range Interpretation Comments PERIPHERAL SMEAR SAVE (BEAKER) (test Yes. code = 1815) Peripheral Blood Smear - Hold [id number] 02:10:00Peripheral Smear SaveComment: Yes.[facility] CenterType and screen, [id number] 23:20:00 Test Item Value Reference Range Interpretation Comments ABO/RH AUTOMATED (BEAKER) (test B POSITIVE code = 2260) Ab Scrn (test code = 890-4) NEGATIVE [facility] 22:30:00 Test Item Value Reference Range Interpretation Comments Haptoglobin (test code = 155 mg/dL 14-258 4542-7) AJ (test code = AJ) Director Zone ID - BS Lab Interpretation (test Normal code = 65601-4) [facility] HospitalIron, TIBC, % sat. (without ferritin)2020-07-23 22:30:00 Test Item Value Reference Range Interpretation Comments Iron (test code = 2498-4) 43.0 ug/dL 40-160 TIBC (test code = 2500-7) 208 ug/dL 250-450 L Iron % Saturation (test code 21 % 20-55 = 2502-3) AJ (test code = AJ) Director Zone ID - BS Lab Interpretation (test Abnormal code = 40789-9) [facility]HAPTOGLOBIN2021-03-17 22:30:00 Test Item Value Reference Range Interpretation Comments HAPTOGLOBIN (BEAKER) (test code = 155 mg/dL 14-258 366) Director Zone ID - BSIRON, TIBC, % SAT. (WITHOUT FERRITIN)2020-07-23 22:30:00 Test Item Value Reference Range Interpretation Comments IRON (BEAKER) (test code = 547) 43.0 ug/dL 40.0-160.0 TOTAL IRON BINDING CAPACITY 208 ug/dL 250-450 L (BEAKER) (test code = 769) IRON % SATURATION (2) (BEAKER) 21 % 20-55 (test code = 2590) Director Zone ID - BSComprehensive metabolic [id number] 22:29:00 Test Item Value Reference Range Interpretation Comments Protein, Total (test 6.4 See_Comment [Autom ated code = 2885-2) message] The system which generated this result transmit alexandra reference range : 6.0 - 8.3 gm/dL . The reference range was not u sed to interpret th is result as normal/abnormal . Albumin (test code = 3.3 g/dL 3.5-5 L 98838-7) Alkaline Phosphatase 43 U/L 40-150 (test code = 6768-6) Total Bilirubin (test 0.4 mg/dL 0.2-1.2 code = 1975-2) Sodium (test code = 138 meq/L 073-269 0977-2) Potassium (test code 4.2 meq/L 3.5-5.1 = 2823-3) Chloride (test code = 99 meq/L 98-107 5-0) CO2 (test code = 25 meq/L 22-29 2028-9) BUN (test code = 53 mg/dL 7-21 H 3094-0) Creatinine (test code 9.53 mg/dL 0.57-1.25 H = 2160-0) Glucose (test code = 93 mg/dL 70-105 2345-7) Calcium (test code = 8.4 mg/dL 8.4-10.2 85147-3) AST (test code = 11 U/L 5-34 1920-8) ALT (test code = 19 U/L 6-55 1742-6) EGFR (test code = 7 mL/min/1.73 [place] [address]-7) NOT ACCURATE CREATININE CLEARANCE IN PREDICTING GLOMERULAR FILTRATION RATE . ESTIMATED GFR I S NOT APPLICABLE FOR DIALYSIS PATIEN TS. AJ (test code = AJ) Director Zone ID - BS Lab Interpretation Abnormal (test code = 92824-8) [facility] HospitalLactate dehydrogenase (LDH)2020-07-23 22:29:00 Test Item Value Reference Range Interpretation Comments LDH (test code = 2532-0) 193 U/L 125-220 AJ (test code = AJ) Director Zone ID - BS Lab Interpretation (test Normal code = 89764-8) [facility]20[facility] 22:29:00 Test Item Value Reference Range Interpretation Comments MAGNESIUM (BEAKER) (test code = 2.2 mg/dL 1.6-2.6 627) Director Zone ID - BSLACTATE DEHYDROGENASE (LDH)2020-07-23 22:29:00 Test Item Value Reference Range Interpretation Comments LACTATE DEHYDROGENASE (BEAKER) (test 193 U/L 125-220 code = 635) Director Zone ID - BSCOMPREHENSIVE METABOLIC [id number] 22:29:00 Test Item Value Reference Range Interpretation [...] S NOT APPLICABLE FOR DIALYSIS PATIEN TS. Director Zone ID - BSReticulocyte [id number] 22:16:00 Test Item Value Reference Range Interpretation Comments % Retic (test code = 1.8 % 0.5-1.8 32409-4) AJ (test code = AJ) Director Zone ID - 6000 Lab Interpretation (test Normal code = 60614-1) [facility] HospitalRETICULOCYTE [id number] 22:16:00 Test Item Value Reference Range Interpretation Comments RETICULOCYTE COUNT PCT (BEAKER) (test 1.8 % 0.5-1.8 code = 575) Director Zone ID - 6000CBC W/PLT COUNT & AUTO [id number] 22:16:00 Test Item Value Reference Range Interpretation [...] code = 2801) CT, CHEST, WITHOUT IV [id number] 08:39:00FINAL REPORT CT of the chest, abdomen [...] Sanchez Verified Date/Time: 11/16/2019 08:39:14 Reading Location: [facility] C013X [facility] Consult Reading Room CT, [id number] 08:39:00FINAL REPORT CT of the chest, abdomen [...] Sanchez Verified Date/Time: 11/16/2019 08:39:14 Reading Location: [facility] C013X [facility] Consult Reading Room CT Abdomen/Pelvis without IV [id number] 08:39:00Interface, External Ris In - 11/16/2019 8:41 [...] Raul Sanchezort Verified Date/Time: 11/16/201908:39:14 Reading Location: [place] [id number] [facility] Xlurfaar7163-07-55 08:39:00Interface, External Ris In - 11/16/2019 8:41 [...] Raul Sanchezeport Verified Date/Time: 11/16/201908:39:14 Reading Location: [facility] B1 C013X Ortho Consult Reading [facility] Hospital[facility] NEEDLE ASPIRATE BY [id number] 10:42:00Medical Cytology Report Case: [id number] Authorizing Provider: Kalen Carlos MD Collected: 07/28/2018 1400 Ordering Location: [facility] Received: 07/28/2018 1424 SERVICES Pathologist: Evita Dhillon MD Specimen: Lymph Node, Lower Paratracheal, Right, Station 4R LYMPH NODE, LOWERPARATRACHEAL, RIGHT, STATION 4R EBUS FNA AND CORE BIOPSY BY CLINICIAN (CYTOSPINS AND CELL BLOCK OF ASPIRATE): - NEGATIVE FOR MALIGNANCY - ANTHRACOTIC LYMPH NODE FRAGMENTS Signing Pathologist D irect Phone Line: [phone] signed by Evita Dhillon MD on 08/01/2018 at 10:42AMPlease see cases [id number] and [id number].Microscopic slides are received for examination and review on08/01/2018.92744, 23307G1Zwpqkxiampb lymphadenopathy, history of T-cell lymphoma currently in remissionLYMPH NODE, LOWER PARATRACHEAL, RIGHT, STATION 4R EBUS FNA37 mls in cytorich red; 2 cytospins, cellblock (A3)Core biopsy: Multiple fragments measuring 7x 0.4cm, 2x 0.5 cm, 0.7 cm, 1.2 cm red (A2)Collected: 108509Npbzcdjc: 842898Ctiltenep.The interpretation of this case included the use [...] qualified to perform high complexity clinical laboratory testing.[facility], Department of Pathology, [address] [place] [address], [facility] [place] [place] [facility], [address] [place] [address], [facility] [place] [place], [address] [place] [address], JLYK NEEDLE ASPIRATE BY [id number] 10:41:00Medical Cytology Report Case: [id number] Authorizing Provider: Kalen Carlos MD Collected: 07/28/2018 1356 Ordering Location: [facility] Received: 07/28/2018 1424 SERVICES Pathologist: Evita Dhillon MD Specimen: Ly mph Node, Subcarinal, Station 7 LYMPH NODE, SUBCARINAL, STATION 7 EBUS FNA AND CORE BIOPSY BY CLINICIAN (CYTOSPINS AND CELL BLOCK OF ASPIRATE): - NEGATIVE FOR MALIGNANCY - ANTHRACOTIC LYMPH NODE FRAGMENTS Signing Pathologist Direct Phone Line: [phone] signed by Evita Dhillon MD on 08/01/2018 at 10:41 AMPlease see cases [id number] and [id number].Microscopic slides are received for examination and review on 08/01/2018.59035, 71688Q4Rplkkvdpdgk lymphadenopathy, history of T-cell lymphoma currently in remissionLYMPH NODE, SUBCARINAL, STATION 7 EBUS FNA32 mls in cytorich red; 2 cytospins, cell block (A3)Core biopsy: multiple fragments measuring 1.5 x 0.8 cm, 0.5 cm, 0.3 cm, 0.2 cm red (A2)Collected: 185435Zypxncih: 175606Weg interpretation of this case included the use of immunohistochemistry or special stains. Immunohistochemistry technical testing was performed at [facility], Pathology Laboratory where it was developed and [...] qualified to perform high complexity clinical laboratory testing.[facility], Department of Pathology, [address] [place] [address], [facility] [place] [place], [address] [place] [address], Ykopvf[facility] [place] [place], [address] [place] [address], FDYK CYTOMETRY [id number] 12:41:00 Test Item Value Reference Range Interpretation Comments FLOW CYTOMETRY RESULT See Separate Report POINTER (EDENILSON) (test code = 2758) FLOW CYTOMETRY AP CASE # [id number] (EDENILSON) (test code = 2759) FLOW [id number] 10:53:00Flow Cytometry Report Case: [id number] Authorizing Provider: Kalen Carlos MD Collected: 07/28/2018 1355 Ordering Location: [facility] Received: 07/28/2018 1653 SERVICES Pathologist: Malissa Cohen MD Specimen: Other LYMPH NODE, EBUS FINE NEEDLE ASPIRATION, FLOW CYTOMETRY:-PREDOMINANCE OF GRANULOCYTES-NO MONOTYPIC B CELL POPULATION-NO ABERRANT T CELL POPULATION-SEE COMMENT The predominance of granulocytes is suggestive of peripheral blood contamination of the sample. These results require correlation with the morphologic and other features for full interpre tation. 03835Mlnkscimuaz lymphadenopathy, History of T cell lymphoma s/p therapyLymph node FNA EBUS-guidedCD8, surface-kappa, CD56, surface-lambda, CD5, CD19, CD10, CD3, CD20, CD4, CA94Pcznoily Viability: 98.3% Number of Events Acquired: 449229 The following populations are identified: Lymphocytes: Bright [...] developed and their performance characteristics determined by [facility]. They have not been cleared or approved by the U.S. Food and Drug Administration. The FDA has determined that such clearance or approval is not necessary. It should not be regarded as investigational or for research. This laboratory is certified under the Clinical Laboratory Improvement Amendments of 1988 ("CLIA") as qualified to perform high-complexity clinical testing.EBUS FNA [id number] 16:00:00 Test Item Value Reference Range Interpretation Comments CYTOLOGY RESULT POINTER See Separate Report (BEAKER) (test code = 2629) EBUS FNA [id number] 16:00:00 Test Item Value Reference Range Interpretation Comments CYTOLOGY RESULT POINTER See Separate Report (BEAKER) (test code = 2629) COMPREHENSIVE METABOLIC [id number] 11:20:00 Test Item Value Reference Range Interpretation [...] S NOT APPLICABLE FOR DIALYSIS PATIEN TS. [id number] 10:18:00 Test Item Value Reference Range Interpretation Comments PARTIAL THROMBOPLASTIN TIME 36.1 seconds 22.5-36.0 H (BEAKER) (test code = 760) PROTHROMBIN TIME/[id number] 10:16:00 Test Item Value Reference Range Interpretation [...] (BEAKER) (test code = 2801) COMPREHENSIVE METABOLIC [id number] 07:46:00 Test Item Value Reference Range Interpretation [...] S NOT APPLICABLE FOR DIALYSIS PATIEN TS. [id number] 07:31:00 Test Item Value Reference Range Interpretation Comments PARTIAL THROMBOPLASTIN TIME 45.9 seconds 22.5-36.0 H (BEAKER) (test code = 760) PROTHROMBIN TIME/[id number] 07:30:00 Test Item Value Reference Range Interpretation [...] PERCENT (BEAKER) (test code = 2801) POCT-GLUCOSE [id number] 06:48:00 Test Item Value Reference Range Interpretation Comments POC-GLUCOSE METER 106 mg/dL 70-110 TESTED AT [facility] 6720 (BEAKER) (test code = TATY MCHUGH 1538) [address] BASIC METABOLIC [id number] 11:54:00 Test Item Value Reference Range Interpretation [...] PATIEN TS. CBC W/PLT COUNT & AUTO [id number] 11:37:00 Test Item Value Reference Range Interpretation [...] 0-1 PERCENT (BEAKER) (test code = 2801) [id number] 09:37:00 Test Item Value Reference Range Interpretation Comments POC-POTASSIUM 4.2 meq/L 3.6-5.5 TESTED AT [facility] 67[facility] (BEAKER) (test code [facility] [address] = 1540) BUN AND [id number] 13:33:00 Test Item Value Reference Range Interpretation [...] S NOT APPLICABLE FOR DIALYSIS PATIEN TS. [id number] 13:32:00 Test Item Value Reference Range Interpretation Comments SODIUM (BEAKER) (test code = 381) 139 meq/L 136-145 POTASSIUM (BEAKER) (test code = 4.2 meq/L 3.5-5.1 379) CHLORIDE (BEAKER) (test code = 382) 100 meq/L 98-107 CO2 (BEAKER) (test code = 355) 27 meq/L 22-29 [id number] 13:14:00 Test Item Value Reference Range Interpretation Comments HEMOGLOBIN (BEAKER) (test code = 12.8 GM/DL 13.7-17.5 L 410) BLOOD [id number] 04:41:00 Test Item Value Reference Range Interpretation Comments CULTURE (BEHARDIK) (test No growth in 5 days code = 1095) POCT-GLUCOSE [id number] 13:11:00 Test Item Value Reference Range Interpretation Comments POC-GLUCOSE METER 169 mg/dL 70-110 H TESTED AT [facility] 6720 (EDENLISON) (test code = TATY [place]ivas [place] 1538) [address] ANG, TUNNELED CATHETER [id number] 18:19:00FINAL REPORT Tunneled dialysis catheter insertion. History: Renal failure. Modality: Sonography and fluoroscopy. Sedation: Moderate sedation was administered. 2 mg of Versed and 100 mcg of fentanyl IV was used for moderate sedation monitored under my direction. Total intra-service time of sedation was 30 minutes. The patient'svital signs were monitored throughout the procedure and recorded in the patient's medical record by the nurse. Forklift Mechanic: [place] Paint Brush Maker: None. Approach: Left internal jugular vein Estimatedblood [...] not be advanced centrally. The inner 3 English micropuncture sheath was placed and contrast injected [...] needle into the right atrium. A 4 English micropuncture sheath was placed and a 0.035 wire advanced into the IVC. A subcutaneous tunnel was created in theleft anterior chest wall by blunt dissection. A 23 cm tip to cuff 15.5 English Duraflow 2 catheter was brought through the [...] MDReport Verified Date/Time: 01/13/2018 18:19:33 Reading Location: [place] [address] Angio Body Reading Room POCT-GLUCOSE [id number] 17:11:00 Test Item Value Reference Range Interpretation Comments POC-GLUCOSE METER 159 mg/dL 70-110 H TESTED AT [facility] 6720 ([facility]) (test code = TATY MCHUGH 1538) [address] CATHETER TIP [id number] 10:23:00 Test Item Value Reference Range Interpretation Comments CULTURE (BEAKER) A <15 [place] s On (test code = 1095) Direct Pl ate Pseudomonas aeruginosa CULTURE ([place] [facility] PSEUDOMONAS A <15 Colonie s [...] Tobramycin (test S code = 25) POCT-GLUCOSE [id number] 08:43:00 Test Item Value Reference Range Interpretation Comments POC-GLUCOSE METER 116 mg/dL 70-110 H TESTED AT [facility] 6720 (BEAKER) (test code = TATY [place] 1538) [address] BASIC METABOLIC [id number] 06:17:00 Test Item Value Reference Range Interpretation [...] S NOT APPLICABLE FOR DIALYSIS PATIEN TS. [id number] 05:32:00 Test Item Value Reference Range Interpretation [...] 0-0 (BEAKER) (test code = 413) POCT-GLUCOSE [id number] 22:24:00 Test Item Value Reference Range Interpretation Comments POC-GLUCOSE METER 118 mg/dL 70-110 H TESTED AT [place] [address] ([facility]) (test code = TATY [place] 1538) [address] POCT-GLUCOSE [id number] 18:32:00 Test Item Value Reference Range Interpretation Comments POC-GLUCOSE METER 146 mg/dL 70-110 H TESTED AT [place] [id number] ([facility]) (test code = TATY MCHUGH 1538) [address] POCT-GLUCOSE [id number] 12:18:00 Test Item Value Reference Range Interpretation Comments POC-GLUCOSE METER 106 mg/dL 70-110 TESTED AT [place] [address] (BEAKER) (test code = [facility] Brendon [facility] 1538) [address] POCT-GLUCOSE [id number] 07:45:00 Test Item Value Reference Range Interpretation Comments POC-GLUCOSE METER 98 mg/dL 70-110 TESTED AT [place] [address] (BEAKER) (test code = [facility] Brendon [facility] [address] 1538) BLOOD [id number] 06:00:00 Test Item Value Reference Range Interpretation Comments CULTURE (BEAKER) (test No growth in 5 days code = 1095) BLOOD [id number] 06:00:00 Test Item Value Reference Range Interpretation Comments CULTURE (BEAKER) (test No growth in 5 days code = 1095) POCT-GLUCOSE [id number] 21:04:00 Test Item Value Reference Range Interpretation Comments POC-GLUCOSE METER 124 mg/dL 70-110 H TESTED AT [place] [address] (BEAKER) (test code = [facility] 1538) [address] POCT-GLUCOSE [id number] 17:25:00 Test Item Value Reference Range Interpretation Comments POC-GLUCOSE METER 177 mg/dL 70-110 H TESTED AT [place] [address] (BEAKER) (test code = [facility] 1538) [address] BASIC METABOLIC [id number] 13:32:00 Test Item Value Reference Range Interpretation [...] mg/dL 8.4-10.2 (test code = 697) EGFR ([facility]) (test 5 mL/min/1.73 ESTIMAT ED GFR IS code = 1092) sq m NOT ACCURATE CREATININE CLEARANCE IN PREDICTING GLOMERULAR FILTRATION RATE . ESTIMATED GFR I S NOT APPLICABLE FOR DIALYSIS PATIEN TS. POCT-GLUCOSE [id number] 12:17:00 Test Item Value Reference Range Interpretation Comments POC-GLUCOSE METER 82 mg/dL 70-110 TESTED AT [place] [address] ([facility]) (test code = [facility] [address] 1538) [id number] 11:20:00 Test Item Value Reference Range Interpretation Comments PROTIME ([facility]) (test code = 15.3 seconds 11.7-14.7 H 759) INR ([facility]) (test code = 370) 1.2 <=5.9 PARTIAL THROMBOPLASTIN TIME 30.9 seconds 22.5-36.0 ([facility]) (test code = 760) RECOMMENDED COUMADIN/WARFARIN INR THERAPY RANGESSTANDARD DOSE: 2.0 - 3.0 Includes: PROPHYLAXIS forvenous thrombosis, systemic embolization; TREATMENT for venous thrombosis and/or pulmonary embolus.HIGH RISK: Target INR is 2.5-3.5 for patients with mechanical heart valves.BLOOD [id number] 11:00:00 Test Item Value Reference Range Interpretation Comments CULTURE ([facility]) (test No growth in 5 days code = 1095) POCT-GLUCOSE [id number] 07:51:00 Test Item Value Reference Range Interpretation Comments POC-GLUCOSE METER 107 mg/dL 70-110 TESTED AT [place] [address] ([facility]) (test code = [facility] 1538) [address] CALCIUM, [id number] 06:32:00 Test Item Value Reference Range Interpretation Comments CALCIUM IONIZED ([facility]) (test 0.87 mmol/L 1.12-1.27 L code = 698) PH, BLOOD ([facility]) (test code = 7.38 1810) [id number] 06:13:00 Test Item Value Reference Range Interpretation Comments PHOSPHORUS ([facility]) (test code = 6.9 mg/dL 2.3-4.7 H 604) [id number] 06:13:00 Test Item Value Reference Range Interpretation Comments MAGNESIUM (BEAKER) (test code = 2.6 mg/dL 1.6-2.6 627) CBC W/PLT COUNT & AUTO [id number] 06:00:00 Test Item Value Reference Range Interpretation [...] PERCENT (BEAKER) (test code = 2801) POCT-GLUCOSE [id number] 21:57:00 Test Item Value Reference Range Interpretation Comments POC-GLUCOSE METER 91 mg/dL 70-110 TESTED AT [place] [address] [facility] (test code = [facility] [address] 1538) BASIC METABOLIC [id number] 20:35:00 Test Item Value Reference Range Interpretation [...] NOT APPLICABLE FOR DIALYSIS PATIEN TS. POCT-GLUCOSE [id number] 17:48:00 Test Item Value Reference Range Interpretation Comments POC-GLUCOSE METER 136 mg/dL 70-110 H TESTED AT [place] [address] ([facility]) (test code = [facility] 1538) [address] POCT-GLUCOSE [id number] 12:42:00 Test Item Value Reference Range Interpretation Comments POC-GLUCOSE METER 109 mg/dL 70-110 TESTED AT [place] [address] ([facility]) (test code = [facility] 1538) [address] POCT-GLUCOSE [id number] 08:25:00 Test Item Value Reference Range Interpretation Comments POC-GLUCOSE METER 146 mg/dL 70-110 H TESTED AT [place] [address] ([facility]) (test code = TATY Olivas [facility] 1538) [address] VANCOMYCIN LEVEL, [id number] 01:13:00 Test Item Value Reference Range Interpretation Comments VANCOMYCIN RANDOM ([facility]) (test 30.1 ug/mL code = 523) Reference Range: No NormalsPOCT-GLUCOSE [id number] 21:48:00 Test Item Value Reference Range Interpretation Comments POC-GLUCOSE METER 118 mg/dL 70-110 H TESTED AT [place] [address] ([facility]) (test code = TATY Olivas [facility] 1538) [address] POCT-GLUCOSE [id number] 18:22:00 Test Item Value Reference Range Interpretation Comments POC-GLUCOSE METER 118 mg/dL 70-110 H TESTED AT [place] [address] ([facility]) (test code = TATY Olivas [facility] 1538) [address] POCT-GLUCOSE [id number] 13:46:00 Test Item Value Reference Range Interpretation Comments POC-GLUCOSE METER 107 mg/dL 70-110 TESTED AT [place] [address] ([facility]) (test code = TATY Olivas [facility] 1538) [address] POCT-GLUCOSE [id number] 08:36:00 Test Item Value Reference Range Interpretation Comments POC-GLUCOSE METER 107 mg/dL 70-110 TESTED AT [place] [address] ([facility]) (test code = TATY Olivas [facility] 1538) [address] SPUTUM CULTURE + GRAM [id number] 07:38:00 Test Item Value Reference Range Interpretation Comments CULTURE (BEAKER) 1+ Normal respiratory (test code = 1095) miller present GRAM STAIN RESULT 1+ WBCs (BEAKER) (test code = 1123) GRAM STAIN RESULT 0-5 epithelial cells (BEAKER) (test code = 89156) GRAM STAIN RESULT 1+ gram positive cocci (BEAKER) (test code = in pairs and clusters 19747) BASIC METABOLIC [id number] 06:57:00 Test Item Value Reference Range Interpretation [...] S NOT APPLICABLE FOR DIALYSIS PATIEN TS. [id number] 06:54:00 Test Item Value Reference Range Interpretation Comments PHOSPHORUS (BEAKER) (test code = 4.9 mg/dL 2.3-4.7 H 604) [id number] 06:54:00 Test Item Value Reference Range Interpretation Comments MAGNESIUM (BEAKER) (test code = 2.2 mg/dL 1.6-2.6 627) CBC W/PLT COUNT & AUTO [id number] 06:38:00 Test Item Value Reference Range Interpretation [...] PERCENT (BEAKER) (test code = 2801) CALCIUM, [id number] 06:36:00 Test Item Value Reference Range Interpretation Comments CALCIUM IONIZED (BEAKER) (test 0.81 mmol/L 1.12-1.27 L code = 698) PH, BLOOD (BEAKER) (test code = 7.43 1810) POCT-GLUCOSE [id number] 20:50:00 Test Item Value Reference Range Interpretation Comments POC-GLUCOSE METER 99 mg/dL 70-110 TESTED AT [place] [id number] ([facility]) (test code = [facility] [address] 1538) POCT-GLUCOSE [id number] 17:36:00 Test Item Value Reference Range Interpretation Comments POC-GLUCOSE METER 154 mg/dL 70-110 H TESTED AT [facility] 6720 ([facility]) (test code = [facility] 1538) [address] POCT-GLUCOSE [id number] 12:44:00 Test Item Value Reference Range Interpretation Comments POC-GLUCOSE METER 116 mg/dL 70-110 H TESTED AT [facility] 6720 (BEAKER) (test code = TATY Olivas [place] 1538) [address] POCT-GLUCOSE [id number] 08:59:00 Test Item Value Reference Range Interpretation Comments POC-GLUCOSE METER 108 mg/dL 70-110 TESTED AT [facility] 6720 (BEAKER) (test code = TATY Olivas [place] 1538) [address] (CELLAVISION MANUAL DIFF)2018-01-08 08:20:00 Test Item Value [...] 3438) Received comment: User comments: Slide comments:CALCIUM, [id number] 07:09:00 Test Item Value Reference Range Interpretation Comments CALCIUM IONIZED (BEAKER) (test 0.94 mmol/L 1.12-1.27 L code = 698) PH, BLOOD (BEAKER) (test code = 7.44 1810) BASIC METABOLIC [id number] 06:16:00 Test Item Value Reference Range Interpretation [...] S NOT APPLICABLE FOR DIALYSIS PATIEN TS. [id number] 06:14:00 Test Item Value Reference Range Interpretation Comments PHOSPHORUS (BEAKER) (test code = 5.5 mg/dL 2.3-4.7 H 604) [id number] 06:14:00 Test Item Value Reference Range Interpretation Comments MAGNESIUM (BEAKER) (test code = 2.3 mg/dL 1.6-2.6 627) HEPATIC FUNCTION [id number] 06:14:00 Test Item Value Reference Range Interpretation [...] 68 U/L 6-55 H 347) VANCOMYCIN LEVEL, [id number] 05:56:00 Test Item Value Reference Range Interpretation Comments VANCOMYCIN RANDOM (BEAKER) (test 37.1 ug/mL code = 523) Reference Range: No NormalsPROTHROMBIN [id number] 05:32:00 Test Item Value Reference Range Interpretation [...] 413) ANG, REMOVAL OF TUNNELED CVC W/O [id number] 21:29:00Reason for exam:->BacteremiaFINAL REPORT Tunneled catheter removal: [...] [place] Verified Date/Time: 01/07/2018 21:29:51 Reading Location: [facility] Radiology Reading Room POCT- GLUCOSE [id number] 21:18:00 Test Item Value Reference Range Interpretation Comments POC-GLUCOSE METER 138 mg/dL 70-110 H TESTED AT [place] [address] ([facility]) (test code = TATY Olivas [facility] 1538) [address] POCT-GLUCOSE [id number] 17:07:00 Test Item Value Reference Range Interpretation Comments POC-GLUCOSE METER 126 mg/dL 70-110 H TESTED AT [facility] 6720 ([facility]) (test code = TATY Olivas [facility] 1538) [address] LACTIC ACID, VENOUS, WHOLE [id number] 15:44:00 Test Item Value Reference Range Interpretation Comments LACTATE BLOOD VENOUS 1.9 mmol/L 0.5-2.2 Specime n slightly (2) (BEAKER) (test hemolyzed code = 2872) Effective 09/10/2015: Units/Reference Range ChangeNew: 0.5-2.2 mmol/L Previous: 5-20 mg/dLPOCT-GLUCOSE [id number] 13:38:00 Test Item Value Reference Range Interpretation Comments POC-GLUCOSE METER 120 mg/dL 70-110 H TESTED AT [facility] 6720 (BEAKER) (test code = VELVETNE R [facility] 1538) [address] BASIC METABOLIC [id number] 11:05:00 Test Item Value Reference Range Interpretation [...] S NOT APPLICABLE FOR DIALYSIS PATIEN TS. [id number] 10:45:00 Test Item Value Reference Range Interpretation Comments PHOSPHORUS (BEAKER) (test code = 5.6 mg/dL 2.3-4.7 H 604) [id number] 10:45:00 Test Item Value Reference Range Interpretation Comments MAGNESIUM (BEAKER) (test code = 2.5 mg/dL 1.6-2.6 627) HEPATIC FUNCTION [id number] 10:45:00 Test Item Value Reference Range Interpretation [...] U/L 6-55 H 347) HEPATITIS B SURFACE [id number] 10:16:00 Test Item Value Reference Range Interpretation Comments HEPATITIS B SURFACE ANTIGEN (2) Nonreactive Nonreactive (BEAKER) (test code = 2585) POCT-GLUCOSE [id number] 07:59:00 Test Item Value Reference Range Interpretation Comments POC-GLUCOSE METER 102 mg/dL 70-110 TESTED AT [facility] 67[address] ([facility]) (test code = TATY Olivas [place] 1538) [address] VITAMIN D, [id number] 07:50:00 Test Item Value Reference Range Interpretation Comments VITAMIN D 25-OH (BEAKER) (test 47.2 ng/mL 6.6-49.9 code = 2764) Effective 02/16/2017: Reference Range ChangeNew: 6.6-49.9 ng/mL Previous: 13.0-47.8 ng/mLRecommended Vitamin D Target Range: 30.0-40.0 ng/mLVANCOMYCIN LEVEL, [id number] 07:12:00 Test Item Value Reference Range Interpretation Comments VANCOMYCIN RANDOM (BEAKER) (test 22.1 ug/mL code = 523) Reference Range: No NormalsPTH, [id number] 05:52:00 Test Item Value Reference Range Interpretation Comments PARATHYROID HORMONE INTACT 198.9 pg/mL 8.5-72.5 H (BEAKER) (test code = 577) CALCIUM, [id number] 05:45:00 Test Item Value Reference Range Interpretation Comments CALCIUM IONIZED (BEAKER) (test 0.84 mmol/L 1.12-1.27 L code = 698) PH, BLOOD (BEAKER) (test code = 7.51 1810) PROTHROMBIN [id number] 05:13:00 Test Item Value Reference Range Interpretation Comments PROTIME (BEAKER) (test code = 14.7 seconds 11.7-14.7 759) INR (BEAKER) (test code = 370) 1.2 <=5.9 RECOMMENDED COUMADIN/WARFARIN INR THERAPY RANGESSTANDARD DOSE: 2.0 - 3.0 Includes: PROPHYLAXIS forvenous thrombosis, systemic embolization; TREATMENT for venous thrombosis and/or pulmonary embolus.HIGH RISK: Target INR is 2.5-3.5 for patients with mechanical heart valves.POCT-GLUCOSE [id number] 21:13:00 Test Item Value Reference Range Interpretation Comments POC-GLUCOSE METER 92 mg/dL 70-110 TESTED AT [facility] 6720 (BEAKER) (test code = TATY Olivas [facility] [address] 1538) [id number] 18:56:00 Test Item Value Reference Range Interpretation Comments PROCALCITONIN (BEAKER) (test code 51.22 ng/mL <0.05 HH = 3036) SEPSIS RISK (ng/mL)Low: 0.05-0.50Intermediate: 0.51-2.00High: >=2.01URINALYSIS W/ [id number] 18:31:00 Test Item Value Reference Range Interpretation [...] /HPF 520) SOURCE(BEAKER) (test code = 2795) [id number] 17:48:00 Test Item Value Reference Range Interpretation Comments PHOSPHORUS (BEAKER) (test code = 5.1 mg/dL 2.3-4.7 H 604) RAD, CHEST, 1 VIEW, NON [id number] 11:31:00Reason for exam:->chest painShould this be performed [...] MDReport Verified Date/Time: 12/09 11:31:21 Reading Location: [facility] Radiology Reading Room CBC W/PLT COUNT & AUTO [id number] 11:14:00 Test Item Value Reference Range Interpretation [...] Received comment: User comments: Slide comments:U/S, RENAL, [id number] 09:04:00Reason for exam:->AKIFINAL REPORT Renal ultrasound Clinical [...] [place] Verified Date/Time: 01/06/2018 09:04:28 Reading Location: [address] Ultrasound Reading Room Electronically signedby: JEOVANY HILL MD on 01/06/2018 09:04 AMLACTIC ACID, VENOUS, WHOLE [id number] 07:15:00 Test Item Value Reference Range Interpretation Comments LACTATE BLOOD VENOUS (2) (BEAKER) 0.6 mmol/L 0.5-2.2 (test code = 2872) Effective 09/10/2015: Units/Reference Range ChangeNew: 0.5-2.2 mmol/L Previous: 5-20 mg/dLBASIC METABOLIC [id number] 05:48:00 Test Item Value Reference Range Interpretation [...] APPLICABLE FOR DIALYSIS PATIEN TS. HEPATIC FUNCTION [id number] 05:45:00 Test Item Value Reference Range Interpretation [...] code = 54 U/L 6-55 347) PROTHROMBIN [id number] 05:22:00 Test Item Value Reference Range Interpretation [...] stable. Physician intra- service time was 20minutes. Forklift Mechanic: Dimple. Paint Brush Maker: None. Approach: Right internal jugular vein Estimated [...] needle into the right atrium. A 4 English micropuncture sheath was placed. A subcutaneous tunnel was created in the right anterior chest wall by blunt dissection. A 19 cm 15.5 English Duraflow 2 catheter was brought through the [...] [place] Verified Date/Time: 03/18/2017 09:52:18 Reading Location: [place] [address] Angio Body Reading Room ELLANEOUS LAB [id number] 14:09:00 Test Item Value Reference Range Interpretation Comments SCAN RESULT (test code = 5101416) Result comments: METHICILLIN-SUSCEPTIBLE STAPH. AUREUS (MSSA) DETECTED Staphylococcus aureus DETECTED MecA NOT DETECTED First line therapy: cefazolin or nafcillin (nafcillin preferred if Central Nervous System Infection) ID consultation strongly encouraged. Other organisms and resistance markers not c ontained in this PCR panel cannot be excluded and follow-up of traditional culture results is required. This sample was tested at the [facility] Clinical Microbiology Laboratory using the [employer] Blood Culture ID Panel. This test is FDA cleared for in vitro diagnostic use and has been verified and approved by the [facility] Clinical Microbiology laboratory for clinical use. Reference Range: Not DetectedBLOOD [id number] 11:00:00 Test Item Value Reference Range Interpretation Comments CULTURE (BEAKER) (test No growth in 5 days code = 1095) BLOOD [id number] 11:00:00 Test Item Value Reference Range Interpretation Comments CULTURE (BEAKER) (test No growth in 5 days code = 1095) BLOOD [id number] 18:00:00 Test Item Value Reference Range Interpretation Comments CULTURE (BEAKER) (test No growth in 5 days code = 1095) BLOOD [id number] 18:00:00 Test Item Value Reference Range Interpretation Comments CULTURE (BEAKER) (test No growth in 5 days code = 1095) BASIC METABOLIC [id number] 07:03:00 Test Item Value Reference Range Interpretation [...] WBC 0-0 (BEAKER) (test code = 413) [id number] 06:15:00 Test Item Value Reference Range Interpretation [...] for patients with mechanical heart valves.BASIC METABOLIC [id number] 06:38:00 Test Item Value Reference Range Interpretation [...] S NOT APPLICABLE FOR DIALYSIS PATIEN TS. [id number] 06:26:00 Test Item Value Reference Range Interpretation Comments PHOSPHORUS (BEAKER) (test code = 5.9 mg/dL 2.3-4.7 H 604) [id number] 06:26:00 Test Item Value Reference Range Interpretation Comments MAGNESIUM (BEAKER) (test code = 2.0 mg/dL 1.6-2.6 627) CBC W/PLT COUNT & AUTO [id number] 06:00:00 Test Item Value Reference Range Interpretation [...] 0-1 PERCENT (BEAKER) (test code = 2801) [id number] 07:32:00 Test Item Value Reference Range Interpretation [...] % 20-55 H (test code = 2590) [id number] 07:19:00 Test Item Value Reference Range Interpretation Comments PHOSPHORUS (BEAKER) (test code = 5.3 mg/dL 2.3-4.7 H 604) [id number] 07:19:00 Test Item Value Reference Range Interpretation Comments MAGNESIUM (BEAKER) (test code = 2.2 mg/dL 1.6-2.6 627) BASIC METABOLIC [id number] 07:19:00 Test Item Value Reference Range Interpretation [...] PATIEN TS. CBC W/PLT COUNT & AUTO [id number] 06:51:00 Test Item Value Reference Range Interpretation [...] (BEAKER) (test code = 2801) CATHETER TIP [id number] 16:52:00 Test Item Value Reference Range Interpretation Comments CULTURE (BEAKER) A <15 [place]ie s On Direct (test code = 1095) Plate Coa gulase negative Staphylococcus CATHETER TIP [id number] 16:49:00 Test Item Value Reference Range Interpretation Comments CULTURE (BEAKER) (test code = 1095) No growth BLOOD [id number] 08:10:00 Test Item Value Reference Range Interpretation [...] gram 1123) positive cocci in clusters BLOOD [id number] 08:08:00 Test Item Value Reference Interpretation Comments [...] is required. This sample wastested at the [facility] Clinical Microbiology Laboratory using the [employer] Blood Culture ID Panel. This test is FDA cleared for in vitro diagnostic use and has been verified and approved by the [facility] Clinical Microbiology laboratory for clinical use. Reference Range: Not DetectedBASIC METABOLIC [id number] 07:05:00 Test Item Value Reference Range Interpretation [...] S NOT APPLICABLE FOR DIALYSIS PATIEN TS. [id number] 07:01:00 Test Item Value Reference Range Interpretation Comments PHOSPHORUS (BEAKER) (test code = 4.8 mg/dL 2.3-4.7 H 604) [id number] 07:01:00 Test Item Value Reference Range Interpretation Comments MAGNESIUM (BEAKER) (test code = 2.2 mg/dL 1.6-2.6 627) CBC W/PLT COUNT & AUTO [id number] 06:39:00 Test Item Value Reference Range Interpretation [...] 0-1 PERCENT (BEAKER) (test code = 2801) [id number] 23:09:00 Test Item Value Reference Range Interpretation Comments SODIUM (BEAKER) (test code = 381) 141 meq/L 136-145 POTASSIUM (BEAKER) (test code = 4.2 meq/L 3.5-5.1 379) CHLORIDE (BEAKER) (test code = 382) 106 meq/L 98-107 CO2 (BEAKER) (test code = 355) 22 meq/L 22-29 BASIC METABOLIC [id number] 13:19:00 Test Item Value Reference Range Interpretation [...] S NOT APPLICABLE FOR DIALYSIS PATIEN TS. [id number] 13:11:00 Test Item Value Reference Range Interpretation Comments PHOSPHORUS (BEAKER) (test code = 3.6 mg/dL 2.3-4.7 604) [id number] 13:11:00 Test Item Value Reference Range Interpretation Comments MAGNESIUM (BEAKER) (test code = 2.1 mg/dL 1.6-2.6 627) CBC W/PLT COUNT & AUTO [id number] 12:55:00 Test Item Value Reference Range Interpretation [...] = 2801) ANG, REMOVAL OF TUNNELED CVC [id number] 12:44:00Reason for exam:->ESRD bacteremia concern for line [...] [place] Verified Date/Time: 02/27/2017 12:44:21 Reading Location: [facility] P048 Angio BodyReading Room VANCOMYCIN LEVEL, [id number] 05:46:00 Test Item Value Reference Range Interpretation Comments VANCOMYCIN RANDOM (BEAKER) (test 20.4 ug/mL code = 523) Reference Range: No NormalsHEPATITIS B SURFACE [id number] 15:33:00 Test Item Value Reference Range Interpretation Comments HEPATITIS B SURFACE ANTIGEN (2) Nonreactive Nonreactive (BEAKER) (test code = 2585) CBC W/PLT COUNT & AUTO [id number] 07:12:00 Test Item Value Reference Range Interpretation [...] (BEAKER) (test code = 2801) BASIC METABOLIC [id number] 06:47:00 Test Item Value Reference Range Interpretation [...] S NOT APPLICABLE FOR DIALYSIS PATIEN TS. [id number] 06:43:00 Test Item Value Reference Range Interpretation Comments PHOSPHORUS (BEAKER) (test code = 3.0 mg/dL 2.3-4.7 604) PROTHROMBIN [id number] 06:07:00 Test Item Value Reference Range Interpretation [...] remained stable. Physician intra-servicetime was 20 minutes. Forklift Mechanic: Dimple. Paint Brush Maker: None. Approach: Right internal jugular vein Estimated [...] needle into the right atrium. A 4 English micropuncture sheath was placed. A subcutaneous tunnel was created in the right anterior chest wall by blunt dissection. A 19 cm 15.5 English Duraflow 2 catheter was brought through the [...] MDRep[place] Verified Date/Time: 01/26/2017 07:52:45 Reading Location: [address] Body Reading Room POCT- GLUCOSE [id number] 01:07:00 Test Item Value Reference Range Interpretation Comments POC-GLUCOSE METER 179 mg/dL 70-110 H TESTED AT [facility] 6720 ([facility]) (test code = [facility] [place] [facility] 1538) [address] BASIC METABOLIC [id number] 21:57:00 Test Item Value Reference Range Interpretation [...] PATIEN TS. CREATINE KINASE (CK), TOTAL AND [id number] 21:52:00 Test Item Value Reference Range Interpretation Comments CREATINE KINASE TOTAL (BEAKER) 159 U/L 29-200 (test code = 380) CREATINE KINASE-MB (BEAKER) (test 0.8 ng/mL 0.0-6.6 code = 750) CREATINE KINASE-MB INDEX (BEAKER) 0.5 % (test code = 395) CK-MB Reference Range:<6.7 Normal6.7-10.0 Borderline>10.0 AbnormalRAD, CHEST, 1 VIEW, NON [id number] 21:52:00Reason for exam:- >CHEST PAINShould this be [...] [place] Verified Date/Time: 01/25/2017 21:52:27 Reading Location: [facility] C013 Consult Reading Room TROPONIN [id number] 21:27:00 Test Item Value Reference Range Interpretation [...] (test code = 2801) HEPATITIS B SURFACE [id number] 15:55:00 Test Item Value Reference Range Interpretation Comments HEPATITIS B SURFACE ANTIGEN (2) Nonreactive Nonreactive (BEAKER) (test code = 2585) BASIC METABOLIC [id number] 07:30:00 Test Item Value Reference Range Interpretation [...] S NOT APPLICABLE FOR DIALYSIS PATIEN TS. [id number] 07:18:00 Test Item Value Reference Range Interpretation Comments PHOSPHORUS (BEAKER) (test code = 5.9 mg/dL 2.3-4.7 H 604) [id number] 07:18:00 Test Item Value Reference Range Interpretation Comments MAGNESIUM (BEAKER) (test code = 2.2 mg/dL 1.6-2.6 627) PROTHROMBIN [id number] 06:43:00 Test Item Value Reference Range Interpretation [...] = 2801) CBC W/PLT COUNT & AUTO [id number] 14:36:00 Test Item Value Reference Range Interpretation [...] code 1+ few = 480) BASIC METABOLIC [id number] 07:18:00 Test Item Value Reference Range Interpretation [...] S NOT APPLICABLE FOR DIALYSIS PATIEN TS. [id number] 07:11:00 Test Item Value Reference Range Interpretation Comments PHOSPHORUS (BEAKER) (test code = 3.7 mg/dL 2.3-4.7 604) CBC W/PLT COUNT & AUTO [id number] 11:27:00 Test Item Value Reference Range Interpretation [...] 1+ few code = 478) BASIC METABOLIC [id number] 08:40:00 Test Item Value Reference Range Interpretation [...] S NOT APPLICABLE FOR DIALYSIS PATIEN TS. [id number] 08:38:00 Test Item Value Reference Range Interpretation Comments PHOSPHORUS (BEAKER) (test code = 4.0 mg/dL 2.3-4.7 604) CBC W/PLT COUNT & AUTO [id number] 13:06:00 Test Item Value Reference Range Interpretation [...] (test code = Normal 762) HEPATITIS B [id number] 11:49:00 Test Item Value Reference Range Interpretation Comments HEPATITIS B CORE TOTAL ANTIBODY Nonreactive Nonreactive (BEAKER) (test code = 497) HEPATITIS B SURFACE ANTIBODY < mIU/mL <8.0 (BEAKER) (test code = 647) HEPATITIS B SURFACE ANTIGEN (2) Nonreactive Nonreactive (BEAKER) (test code = 2585) [id number] 11:19:00 Test Item Value Reference Range Interpretation [...] for patients with mechanical heart valves.BASIC METABOLIC [id number] 07:32:00 Test Item Value Reference Range Interpretation [...] S NOT APPLICABLE FOR DIALYSIS PATIEN TS. [id number] 07:17:00 Test Item Value Reference Range Interpretation Comments PHOSPHORUS (BEAKER) (test code = 3.3 mg/dL 2.3-4.7 604) [id number] 07:17:00 Test Item Value Reference Range Interpretation Comments MAGNESIUM (BEAKER) (test code = 2.0 mg/dL 1.6-2.6 627) HEPATIC FUNCTION [id number] 07:17:00 Test Item Value Reference Range Interpretation [...] = 13 U/L 6-55 347) COMPREHENSIVE METABOLIC [id number] 17:39:00 Test Item Value Reference Range Interpretation [...] S NOT APPLICABLE FOR DIALYSIS PATIEN TS. [id number] 17:36:00 Test Item Value Reference Range Interpretation Comments MAGNESIUM (BEAKER) 2.2 mg/dL 1.6-2.6 Specimen slightly (test code = 627) hemolyzed CBC W/PLT COUNT & AUTO [id number] 16:57:00 Test Item Value Reference Range Interpretation [...] 0.00-0.20 (test code = 417) 0.00COMPREHENSIVE METABOLIC [id number] 06:52:00 Test Item Value Reference Range Interpretation [...] NOT APPLICABLE FOR DIALYSIS PATIEN TS. URIC [id number] 06:51:00 Test Item Value Reference Range Interpretation Comments URIC ACID (BEAKER) (test code = 8.2 mg/dL 2.6-7.2 H 773) LACTATE DEHYDROGENASE (LDH)2016-08-07 06:51:00 Test Item Value Reference Range Interpretation Comments LACTATE DEHYDROGENASE (BEAKER) (test 233 U/L 125-220 H code = 635) CBC W/PLT COUNT & AUTO [id number] 15:03:00 Test Item Value Reference Range Interpretation [...] (test code = Normal 762) COMPREHENSIVE METABOLIC [id number] 06:13:00 Test Item Value Reference Range Interpretation [...] NOT APPLICABLE FOR DIALYSIS PATIEN TS. URIC [id number] 06:05:00 Test Item Value Reference Range Interpretation Comments URIC ACID (BEAKER) (test code = 5.3 mg/dL 2.6-7.2 773) [id number] 06:05:00 Test Item Value Reference Range Interpretation Comments MAGNESIUM (BEAKER) (test code = 1.9 mg/dL 1.6-2.6 627) [id number] 06:05:00 Test Item Value Reference Range Interpretation Comments PHOSPHORUS (BEAKER) (test code = 3.8 mg/dL 2.3-4.7 604) LACTATE DEHYDROGENASE (LDH)2016-08-06 06:05:00 Test Item Value Reference Range Interpretation Comments LACTATE DEHYDROGENASE (BEAKER) (test 248 U/L 125-220 H code = 635) [id number] 06:51:00 Test Item Value Reference Range Interpretation Comments PHOSPHORUS (BEAKER) (test code = 3.5 mg/dL 2.3-4.7 604) [id number] 06:51:00 Test Item Value Reference Range Interpretation Comments MAGNESIUM (BEAKER) (test code = 1.9 mg/dL 1.6-2.6 627) BASIC METABOLIC [id number] 06:51:00 Test Item Value Reference Range Interpretation [...] PATIEN TS. CBC W/PLT COUNT & AUTO [id number] 06:37:00 Test Item Value Reference Range Interpretation [...] 0.00-0.20 (test code = 417) 0.00BASI METABOLIC [id number] 12:49:00 Test Item Value Reference Range Interpretation [...] NOT APPLICABLE FOR DIALYSIS PATIEN TS. URIC [id number] 12:46:00 Test Item Value Reference Range Interpretation Comments URIC ACID (BEAKER) (test code = 5.2 mg/dL 2.6-7.2 773) [id number] 12:46:00 Test Item Value Reference Range Interpretation Comments MAGNESIUM (BEAKER) (test code = 2.1 mg/dL 1.6-2.6 627) [id number] 12:46:00 Test Item Value Reference Range Interpretation Comments PHOSPHORUS (BEAKER) (test code = 3.8 mg/dL 2.3-4.7 604) HEPATIC FUNCTION [id number] 12:46:00 Test Item Value Reference Range Interpretation [...] = 635) CBC W/PLT COUNT & AUTO [id number] 12:27:00 Test Item Value Reference Range Interpretation [...] (test code = 417) 0.00HEPATITIS B SURFACE [id number] 14:54:00 Test Item Value Reference Range Interpretation Comments HEPATITIS B SURFACE ANTIGEN (2) Nonreactive Nonreactive (BEAKER) (test code = 2585) CBC W/PLT COUNT & AUTO [id number] 10:30:00 Test Item Value Reference Range Interpretation [...] code = 1+ few 481) COMPREHENSIVE METABOLIC [id number] 06:29:00 Test Item Value Reference Range Interpretation [...] = 635) CBC W/PLT COUNT & AUTO [id number] 06:53:00 Test Item Value Reference Range Interpretation [...] 0.00-0.20 (test code = 417) 0.00COMPREHENSIVE METABOLIC [id number] 06:47:00 Test Item Value Reference Range Interpretation [...] = 635) CBC W/PLT COUNT & AUTO [id number] 11:26:00 Test Item Value Reference Range Interpretation [...] (test code = Normal 762) BASIC METABOLIC [id number] 05:47:00 Test Item Value Reference Range Interpretation [...] NOT APPLICABLE FOR DIALYSIS PATIEN TS. URIC [id number] 05:44:00 Test Item Value Reference Range Interpretation Comments URIC ACID (BEAKER) (test code = 9.4 mg/dL 2.6-7.2 H 773) [id number] 05:44:00 Test Item Value Reference Range Interpretation Comments PHOSPHORUS (BEAKER) (test code = 5.1 mg/dL 2.3-4.7 H 604) HEPATIC FUNCTION [id number] 05:44:00 Test Item Value Reference Range Interpretation [...] = 635) CBC W/PLT COUNT & AUTO [id number] 11:11:00 Test Item Value Reference Range Interpretation [...] 1+ few code = 478) BASIC METABOLIC [id number] 07:05:00 Test Item Value Reference Range Interpretation [...] NOT APPLICABLE FOR DIALYSIS PATIEN TS. URIC [id number] 07:04:00 Test Item Value Reference Range Interpretation Comments URIC ACID (BEAKER) (test code = 4.6 mg/dL 2.6-7.2 773) [id number] 07:04:00 Test Item Value Reference Range Interpretation Comments PHOSPHORUS (BEAKER) (test code = 3.1 mg/dL 2.3-4.7 604) HEPATIC FUNCTION [id number] 07:04:00 Test Item Value Reference Range Interpretation [...] = 635) CBC W/PLT COUNT & AUTO [id number] 06:57:00 Test Item Value Reference Range Interpretation [...] (BEAKER) (test code = 1351) BASIC METABOLIC [id number] 06:09:00 Test Item Value Reference Range Interpretation [...] NOT APPLICABLE FOR DIALYSIS PATIEN TS. URIC [id number] 06:05:00 Test Item Value Reference Range Interpretation Comments URIC ACID (BEAKER) (test code = 6.5 mg/dL 2.6-7.2 773) [id number] 06:05:00 Test Item Value Reference Range Interpretation Comments PHOSPHORUS (BEAKER) (test code = 5.0 mg/dL 2.3-4.7 H 604) HEPATIC FUNCTION [id number] 06:05:00 Test Item Value Reference Range Interpretation [...] 125-220 H code = 635) URINALYSIS W/ [id number] 22:18:00 Test Item Value Reference Range Interpretation [...] SOURCE(BEAKER) (test code Urine, Clean Catch = 8025) CBC W/PLT COUNT & AUTO [id number] 20:30:00 Test Item Value Reference Range Interpretation [...] 0.00-0.20 (test code = 417) 0.00COMPREHENSIVE METABOLIC [id number] 20:25:00 Test Item Value Reference Range Interpretation [...] NOT APPLICABLE FOR DIALYSIS PATIEN TS. URIC [id number] 20:24:00 Test Item Value Reference Range Interpretation Comments URIC ACID (BEAKER) (test code = 5.8 mg/dL 2.6-7.2 773) [id number] 20:24:00 Test Item Value Reference Range Interpretation Comments PHOSPHORUS (BEAKER) (test code = 4.8 mg/dL 2.3-4.7 H 604) LACTATE DEHYDROGENASE (LDH)2016-07-14 20:24:00 Test Item Value Reference Range Interpretation Comments LACTATE DEHYDROGENASE (BEAKER) (test 245 U/L 125-220 H code = 635) PROTHROMBIN [id number] 20:12:00 Test Item Value Reference Range Interpretation Comments PROTIME (BEAKER) (test code = 13.0 seconds 11.7-14.7 759) INR (BEAKER) (test code = 370) 1.0 <=5.9 RECOMMENDED COUMADIN/WARFARIN INR THERAPY RANGESSTANDARD DOSE: 2.0 - 3.0 Includes: PROPHYLAXIS forvenous thrombosis, systemic embolization; TREATMENT for venous thrombosis and/or pulmonary embolus.HIGH RISK: Target INR is 2.5-3.5 for patients with mechanical heart valves.[id number] 15:01:00 Test Item Value Reference Range Interpretation Comments LAB AP CPT CODE (BEAKER) (test code = 41494 2749) CBC W/PLT COUNT & AUTO [id number] 14:40:00 Test Item Value Reference Range Interpretation [...] (test code = Normal 762) BASIC METABOLIC [id number] 07:34:00 Test Item Value Reference Range Interpretation [...] S NOT APPLICABLE FOR DIALYSIS PATIEN TS. [id number] 07:26:00 Test Item Value Reference Range Interpretation Comments PHOSPHORUS (BEAKER) (test code = 5.0 mg/dL 2.3-4.7 H 604) [id number] 07:26:00 Test Item Value Reference Range Interpretation Comments MAGNESIUM (BEAKER) (test code = 2.0 mg/dL 1.6-2.6 627) HEPATIC FUNCTION [id number] 07:26:00 Test Item Value Reference Range Interpretation [...] = 14 U/L 6-55 347) FLOW CYTOMETRY [id number] 11:51:00 Test Item Value Reference Range Interpretation Comments FLOW CYTOMETRY RESULT See Separate Report POINTER (BEAKER) (test code = 2758) FLOW CYTOMETRY AP CASE # [id number] (BEAKER) (test code = 2759) HEPATITIS B SURFACE [id number] 09:53:00 Test Item Value Reference Range Interpretation Comments HEPATITIS B SURFACE ANTIGEN (2) Nonreactive Nonreactive (BEAKER) (test code = 2585) FLOW [id number] 09:46:00 Test Item Value Reference Range Interpretation Comments LAB AP CPT CODE (BEAKER) (test code = 96517 2749) BASIC METABOLIC [id number] 06:27:00 Test Item Value Reference Range Interpretation [...] S NOT APPLICABLE FOR DIALYSIS PATIEN TS. [id number] 06:26:00 Test Item Value Reference Range Interpretation Comments PHOSPHORUS (BEAKER) (test code = 3.3 mg/dL 2.3-4.7 604) [id number] 06:26:00 Test Item Value Reference Range Interpretation Comments MAGNESIUM (BEAKER) (test code = 1.9 mg/dL 1.6-2.6 627) HEPATIC FUNCTION [id number] 06:26:00 Test Item Value Reference Range Interpretation [...] 6-55 347) CBC W/PLT COUNT & AUTO [id number] 06:10:00 Test Item Value Reference Range Interpretation [...] (test code = 417) 0.00CSF CELL COUNT [id number] 16:38:00 Test Item Value Reference Range Interpretation [...] NUMBER CSF (BEAKER) (test 1 code = 1488) CBC W/PLT COUNT & AUTO [id number] 06:59:00 Test Item Value Reference Range Interpretation [...] 0.00-0.20 (test code = 417) 0.00BASIC METABOLIC [id number] 06:18:00 Test Item Value Reference Range Interpretation [...] S NOT APPLICABLE FOR DIALYSIS PATIEN TS. [id number] 06:17:00 Test Item Value Reference Range Interpretation Comments PHOSPHORUS (BEAKER) (test code = 4.9 mg/dL 2.3-4.7 H 604) [id number] 06:17:00 Test Item Value Reference Range Interpretation Comments MAGNESIUM (BEAKER) (test code = 1.8 mg/dL 1.6-2.6 627) HEPATIC FUNCTION [id number] 06:17:00 Test Item Value Reference Range Interpretation [...] = 13 U/L 6-55 347) COMPREHENSIVE METABOLIC [id number] 21:37:00 Test Item Value Reference Range Interpretation [...] NOT APPLICABLE FOR DIALYSIS PATIEN TS. URIC [id number] 21:36:00 Test Item Value Reference Range Interpretation Comments URIC ACID (BEAKER) (test code = 4.9 mg/dL 2.6-7.2 773) LACTATE DEHYDROGENASE (LDH)2016-06-23 21:36:00 Test Item Value Reference Range Interpretation Comments LACTATE DEHYDROGENASE (BEAKER) (test 223 U/L 125-220 H code = 635) PROTHROMBIN [id number] 21:23:00 Test Item Value Reference Range Interpretation [...]
[2020-09-11 02:38] LABS: Hematocrit 25.8 % (39.6-49.0); Lymphocytes % 17.8 % (15.3-44.8)
[2020-09-11 02:40] LABS: Protime INR 1.06
[2020-09-11 03:09] LABS: Bilirubin Total 0.3 mg/dL (0.2-1.0); Potassium 4.2 mmol/L (3.5-5.1); Protein, Total 7.3 g/dL (6.4-8.2)
[2020-09-11 04:19] LABS: Blood Morphology Comment NOT SEEN (NOT SEEN); Platelet Estimate ADEQ
--- NOTE | 2020-09-11 06:18 | ER ---
Nurse's Notes [facility] Name: Naldo Alejandre Age: 65 yrs Sex: Male : 1955 Arrival Date: 09/11/2020 Time: 00:16 Bed 17 Private MD: Diagnosis: Anemia in chronic diseases classified elsewhere Presentation: 09/11 01:46 Chief complaint: Patient states: he was sent by Dr. Souza to have a blood transfusion J[place] from the doctor's office today. Coronavirus screen: Client denies travel out of the [place] in the last 14 days. At this time, the client does not indicate any symptoms associated with coronavirus-19. Ebola Screen: Patient negative for fever greater than or equal to 101.5 degrees Fahrenheit, and additional compatible Ebola Virus Disease symptoms Patient denies exposure to infectious person. Patient denies travel to an Ebola-affected area in the 21 days before illness onset. Initial Sepsis Screen: Does the patient meet any 2 criteria? No. Patient's initial sepsis screen is negative. Does the patient have a suspected source of infection? No. Patient's initial sepsis screen is negative. Risk Assessment: Do you want to hurt yourself or someone else? Patient reports no desire to harm self or others. Onset of symptoms was September 10, 2020. Care prior to arrival: None. 01:46 Method Of Arrival: Ambulatory [facility] 01:46 Acuity: TERRI 3 [facility] Historical: - Allergies: 01:55 No Known Allergies; jm8 - Home Meds: 01:55 Unknown [Active]; jm8 - PMHx: 01:55 Dialysis; M,W,F; Hyperlipidemia; ESRD; kidney disease; Hypertension; LYMPHOMA; jm8 - Immunization history:: Adult Immunizations up to date. - Social history:: Patient/guardian denies using alcohol, street drugs, The patient lives with family, Smoking status: unknown. - Family history:: not pertinent. Screenin:54 Abuse screen: Denies threats or abuse. Denies injuries from another. Nutritional 8 screening: No deficits noted. Tuberculosis screening: No symptoms or risk factors identified. Fall Risk None identified. Assessment: 01:53 General: Appears in no apparent distress. comfortable, Behavior is calm, cooperative, jm8 appropriate for age. Pain: Denies pain. Neuro: No deficits noted. Cardiovascular: Reports fatigue, low blood levels. Sent here by primary care physician to receive blood transfusion. Respiratory: No deficits noted. Airway is patent Trachea midline Respiratory effort is even, unlabored. GI: No deficits noted. : No deficits noted. EENT: No deficits noted. Derm: No deficits noted. Musculoskeletal: No deficits noted. 02:26 Reassessment: Sita- [phone]. [facility] 04:28 Reassessment: Patient appears in no apparent distress at this time. Patient and/or jm8 family updated on plan of care and expected duration. Pain level reassessed. Patient is alert, oriented x 3, equal unlabored respirations, skin warm/dry/pink. 06:27 Reassessment: Patient states he wants to leave at this time. Informed patient that his [facility] blood would be ready in the next 30 minutes to an hour. Patient states he still wants to leave. MD informed. Patient to be discharged. Vital Signs: 01:46 BP 133 / 88; Pulse 88; Resp 16; Temp 98.5; Pulse Ox 99% on R/A; Weight 90.72 kg; Height [facility] 6 ft. 0 in. (182.88 cm); 04:25 BP 141 / 93; Pulse 95; Resp 16; Pulse Ox 96% on R/A; jm8 01:46 Body Mass Index 27.12 (90.72 kg, 182.88 cm) [facility] ED Course: 00:16 Patient arrived in ED. am4 00:58 Vasquez Chambers MD is Attending Physician. nm2 01:52 Triage completed. jm8 01:54 Arm band placed on right wrist. jm8 01:54 Inserted saline lock: 18 gauge in left antecubital area, using aseptic technique. jm8 01:55 Patient has correct armband on for positive identification. Bed in low position. Call [facility] light in reach. Side rails up X2. 03:51 Notified ED physician of a critical lab result(s). Creatinine: 8.03. ad5 06:29 No provider procedures requiring assistance completed. IV discontinued, intact, jm8 bleeding controlled, No redness/swelling at site. Administered Medications: No medications were administered Outcome: 06:18 Discharge ordered by . ma2 06:31 Discharged to home ambulatory. [facility] 06:31 Condition: good 06:31 Discharge instructions given to patient, Instructed on discharge instructions, follow up and referral plans. Demonstrated understanding of instructions, follow-up care. 06:31 Patient left the ED. jm8 Signatures: Vasquez Chambers MD MD ma2 Sarah Yeh Joseph, RN RN jm8 Marcello Kothari
--- NOTE | 2020-09-11 06:18 | EDPHYS ---
Physician Documentation [facility] Name: Naldo Alejandre Age: 65 yrs Sex: Male : 1955 Arrival Date: 09/11/2020 Time: 00:16 Bed 17 Private MD: ED Physician Vasquez Chambers HPI: 09/11 01:16 This 65 yrs old Black Male presents to ER via Unassigned with complaints of Blood ma2 Transfusion. 01:16 sent here from pcp for blood transfusion, hb unknown, had hd today . has fatigue and ma2 weakness . Onset: The symptoms/episode began/occurred gradually, 2 day(s) ago. Severity of symptoms: At their worst the symptoms were mild in the emergency department the symptoms are unchanged. The patient has experienced similar episodes in the past. 01:16 not taking blood thinners, no active bleeding, has chronic anemia . ma2 Historical: - Allergies: 01:55 No Known Allergies; jm8 - Home Meds: 01:55 Unknown [Active]; jm8 - PMHx: 01:55 Dialysis; M,W,F; Hyperlipidemia; ESRD; kidney disease; Hypertension; LYMPHOMA; jm8 - Immunization history:: Adult Immunizations up to date. - Social history:: Patient/guardian denies using alcohol, street drugs, The patient lives with family, Smoking status: unknown. - Family history:: not pertinent. ROS: 01:16 Constitutional: Negative for fever, chills, and weight loss. ma2 01:16 All other systems are negative. Exam: 01:16 Constitutional: This is a well developed, well nourished patient who is awake, alert, ma2 and in no acute distress. Head/Face: Normocephalic, atraumatic. Eyes: Pupils equal round and reactive to light, extra-ocular motions intact. Lids and lashes normal. Conjunctiva and sclera are non-icteric and not injected. Cornea within normal limits. Periorbital areas with no swelling, redness, or edema. ENT: Nares patent. No nasal discharge, no septal abnormalities noted. Tympanic membranes are normal and external auditory canals are clear. Oropharynx with no redness, swelling, or masses, exudates, or evidence of obstruction, uvula midline. Mucous membranes moist. Neck: Trachea midline, no thyromegaly or masses palpated, and no cervical lymphadenopathy. Supple, full range of motion without nuchal rigidity, or vertebral point tenderness. No Meningismus. Chest/axilla: Normal chest wall appearance and motion. Nontender with no deformity. No lesions are appreciated. Cardiovascular: Regular rate and rhythm with a normal S1 and S2. No gallops, murmurs, or rubs. Normal PMI, no JVD. No pulse deficits. Respiratory: Lungs have equal breath sounds bilaterally, clear to auscultation and percussion. No rales, rhonchi or wheezes noted. No increased work of breathing, no retractions or nasal flaring. Abdomen/GI: Soft, non-tender, with normal bowel sounds. No distension or tympany. No guarding or rebound. No evidence of tenderness throughout. Skin: Warm, dry with normal turgor. Normal color with no rashes, no lesions, and no evidence of cellulitis. MS/ Extremity: Pulses equal, no cyanosis. Neurovascular intact. Full, normal range of motion. Neuro: Awake and alert, GCS 15, oriented to person, place, time, and situation. Cranial nerves II-XII grossly intact. Motor strength 5/5 in all extremities. Sensory grossly intact. Cerebellar exam normal. Normal gait. Vital Signs: 01:46 BP 133 / 88; Pulse 88; Resp 16; Temp 98.5; Pulse Ox 99% on R/A; Weight 90.72 kg; Height [facility] 6 ft. 0 in. (182.88 cm); 04:25 BP 141 / 93; Pulse 95; Resp 16; Pulse Ox 96% on R/A; [facility] 01:46 Body Mass Index 27.12 (90.72 kg, 182.88 cm) [facility] MDM: 00:58 Patient medically screened. ma2 01:16 Differential Diagnosis anemia d/tchronic disease, unlikely active bleeding or other ma2 electrolytes abnormality . Data reviewed: vital signs, nurses notes. Counseling: I had a detailed discussion with the patient and/or guardian regarding: the historical points, exam findings, and any diagnostic results supporting the discharge/admit diagnosis, the presence of at least one elevated blood pressure reading (>120/80) during this emergency department visit, the need for outpatient follow up. Response to treatment: the patient's symptoms have markedly improved after treatment. 09/11 00:37 Order name: CBC with Diff; Complete Time: 04:34 ma2 09/11 00:37 Order name: CMP; Complete Time: 03:30 ma2 09/11 00:37 Order name: Protime (+inr); Complete Time: 03:30 ma2 09/11 00:37 Order name: Ptt, Activated; Complete Time: 03:30 ma2 09/11 02:53 Order name: Manual Differential; Complete Time: 04:34 EDMS 09/11 03:20 Order name: Type And Screen iw 09/11 03:31 Order name: Transfuse: transfuse 2 units of packed rbc, over 3 hrs hi2 09/11 05:41 Order name: ABO/RH no charge EDMS Administered Medications: No medications were administered Disposition: 09/11/20 06:18 Discharged to Home. Impression: Anemia in chronic diseases classified elsewhere. - Condition is Stable. - Discharge Instructions: Anemia, Nonspecific. - Medication Reconciliation Form, Thank You Letter, Antibiotic Education, Prescription Opioid Use form. - Follow up: Private Physician; When: Tomorrow; Reason: Continuance of care. Signatures: Dispatcher [employer] EDMS Vasquez Chambers MD MD ma2 Ezequiel Ambrosio RN RN jm8 Corrections: (The following items were deleted from the chart) 06:31 06:18 09/11/2020 06:18 Discharged to Home. Impression: Anemia in chronic diseases jm8 classified elsewhere. Condition is Stable. Forms are Medication Reconciliation Form, Thank You Letter, Antibiotic Education, Prescription Opioid Use. Follow up: Private Physician; When: Tomorrow; Reason: Continuance of care. ma2
[2020-09-11 06:42] VITALS: BP 141/93; O2SAT 96
[2020-09-11 06:44] VITALS: TEMP 98.5
== END 2020-09-11 06:31 | disposition home or self-care (01) ==
LOC: ER 23:46
PROC: 30233N1 Transfusion of Nonautologous Red Blood Cells into Peripheral Vein, Percutaneous Approach (ICD-10-PCS; principal; 2020-09-11)
DX: I12.0 Hypertensive chronic kidney disease with stage 5 chronic kidney disease or end stage renal disease (principal); N18.6 End stage renal disease; Z99.2 Dependence on renal dialysis; D63.1 Anemia in chronic kidney disease
CPT/HCPCS: 36415; 80053; 85025; 85610; 85730; 86850; 86900; 86901; 99283

== ENCOUNTER 2021-09-10 01:34 | Observation (INO) | payer OTHER, SELFPAY ==
--- OUTSIDE RECORDS SUMMARY | 2021-09-10 01:46 | XMS REPORT | Continuity of Care Document ---
:1955 Author Organization [facility] t Address [address] [place] [address] Care Team Providers Name Role Phone Sushant Montez Jr. Primary Care Physician Junior BARRY Attending Clinician Unavailable ARELIS FONTAINE Attending Clinician Unavailable TRICIA Attending Clinician Unavailable RAUL WILLOUGHBY Attending Clinician Unavailable GONZALES Attending Clinician Unavailable Gonzales NGUYEN Attending Clinician Doctor Unassigned, Name Attending Clinician Unavailable Dilshad Oconnor Attending Clinician Dilshad KIRKPATRICK Attending Clinician Unavailable SYD Attending Clinician Unavailable Silviano Hurtado MD Attending Clinician James Calderon MD Attending Clinician Luigi Reynaga MD Attending Clinician JAMES CALDERON Attending Clinician Unavailable SILVIANO HURTADO Attending Clinician Unavailable BRAN JOVEL Attending Clinician Unavailable MITCHEL Attending Clinician Unavailable Lyubov MANUEL Attending Clinician Unavailable Iza WORKMAN Attending Clinician Unavailable RUDDY FAGAN Attending Clinician Unavailable MARK RUBI Attending Clinician Unavailable Yane GOLDMAN Attending Clinician Unavailable JAVIER CAO Attending Clinician Unavailable Junior BARRY Admitting Clinician Unavailable RAUL WILLOUGHBY Admitting Clinician Unavailable GONZALES Admitting Clinician Unavailable Dilshad KIRKPATRICK Admitting Clinician Unavailable SILVIANO HURTADO Admitting Clinician Unavailable BRAN JOVEL Admitting Clinician Unavailable MITCHEL Admitting Clinician Unavailable Lyubov MANUEL Admitting Clinician Unavailable RUDDY FAGAN Admitting Clinician Unavailable MARK RUBI Admitting Clinician Unavailable Yane GOLDMAN Admitting Clinician Unavailable JAVIER CAO Admitting Clinician Unavailable Payers Payer Name Policy Type Policy Number Effective Date Expiration Date S yeyo MEDICARE A B [id number] 2016 00:00:00 [employer]NA MEDICARE ADV [id number] 2021 00:00:00 HU[employer] CHOICE [id number] 2021 00:00:00 [place] [id number] 2021 (MEDICARE 00:00:00 REPLACEMENT O) MEDICARE PART A \\T\\ [id number] B - MEDICARE [facility]-MEDICAID - [id number] MEDICAID [id number] - HUMANA [id number] 2021 2021 HEALTHCARE 00:00:00 00:00:00 Problems Condition Condition Condition Status Onset Resolution Last Treating Co mments Source Name Details Category Date Date Treatment Clinician Date Arm Arm Disease Active 2017-05 [facility] swelling swelling 2-21 Colleg e 00:00: of 00 Medicin e Essential Essential Disease Active 2017-05 [facility] hypertensi hypertensi 0-17 [facility] on 00:00: t & Plan: of 00 Formattin Medicin g of this e note might be different from the original. Elevated reading today, advised follow up with charting Excessive Excessive Disease Active 2017-05 [facility] daytime daytime 0-17 [facility] sleepiness sleepiness 00:00: t & Plan: of 00 Formattin Medicin g of this e note might be different from the original. ESS 18Will closely follow up after treatment with CPAP initiated ESRD (end ESRD (end Disease Active 2017-05 [facility] stage stage 0-12 [facility] renal renal 00:00: of disease) disease) 00 Medici n on on e dialysis dialysis (HCCode) (HCCode) TIMA TIMA Disease Active Overview: [facility] (obstructi (obstructi 6-11 [facility] ve sleep ve sleep 00:00: g of this of apnea) apnea) 00 note Medicin might be e different from the original. 10/08/17:CM S apnea hypopnea index (CMS AHI) of 81.1 events per hour of sleep.The re were 244 AASM Hypopneas with an AASM apnea hypopnea index (AASM AHI) of 90.1 events perhour of sleep.Las t Assessmen t & Plan: Formattin g of this note might be different from the original. Pt with TIMA on sle epstudy with obesityIn addition has associate d non restorati ve sleep,noc turnal awakening , daytime sleepines s, hypertens ion Discussed with patient the pathophys iology of sleep apnea diagnosis and treatment optionsDi scuss ed sleep study in detail Pt agreeable to pursue treatment with CPAPWill go ahead and order a CPAP machine [place] Disease Active [facility] catheter catheter 3-[address] in place 00:00: of 00 Medicin e Chemothera Chemothera Disease Active 2015-05 [facility] py induced py induced 2-27 Co llege neutropeni neutropeni 00:00: [facility] ([facility] 00 Me dicin e Peripheral Peripheral Disease Active 2015-05 Overview : [facility] 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 (HCCode) (HCCode) Updated from 2018 IMO Regulator y 1 Dyslipidem Dyslipidem Disease Active U nivers ia ia 8-19 ity of 00:00: [address] ESRD (end ESRD (end Disease Active Uni vers stage stage 6-29 ity of renal renal 00:00: [place] disease) disease) 00 Medica l Branch CKD CKD Disease Active Univers (chronic (chronic 6- ity of kidney kidney 00:00: [place] disease), disease), 00 Medi dimitry stage 5 stage 5 Branch Submandibu Submandibu Disease Active U nivers lar gland lar gland 6- ity of mass mass 00:00: [place] [facility] Acute Acute Disease Active Univers renal renal 10-28 ity of failure failure 00:00: [place] [facility] Essential Essential Disease Active Uni vers hypertensi hypertensi 6- it y of on on 00:00: [place] [facility] Atypical Atypical Disease Active Unive rs chest pain chest pain 10-28 it y of 00:00: [address] Allergies, Adverse Reactions, Alerts Allergy Allergy Status Severity Reaction(s) Onset Inactive Treating Comm ents Source Name Type Date Date Clinician NO KNOWN Drug Active Univers ALLERGIE Class ity of S [facility] NO KNOWN Allergy Active [facility] Social History Social Habit Start Date Stop Date Quantity Comments Source History SDWY University o f Alcohol Frequency [facility] Branch History [facility] University o f Alcohol Std Drinks [facility] History [facility] University o f Alcohol Binge [facility] History of tobacco Chews Tobacco [facility] Medicine Exposure to 2021-08-17 2021-08-27 Not sure University of SARS-CoV-2 (event) 00:00:00 07:01:00 [facility] Alcohol intake 2021-06-13 2021-06-13 0 /d University of 00:00:00 00:00:00 [facility] Alcohol Comment 2016-02-11 2016-02-11 Sober for last Unive rsity of 00:00:00 00:00:00 year [facility] Cigarettes smoked 2015-12-26 2015-12-26 Univers ity of current (pack per 00:00:00 00:00:00 [facility] ) - Reported Branch Cigarette 2015-12-26 2015-12-26 University of pack-years 00:00:00 00:00:00 [facility] Tobacco use and 2015-12-26 2015-12-26 Current user Univers ity of exposure 00:00:00 00:00:00 [facility] Sex [birth year] Universit y of 00:00:00 00:00:00 [facility] Smoking Status Start Date Stop Date Source Current every day 2018-06-01 00:00:00 [facility] smoker Medicine Former smoker 2015-12-26 00:00:00 2015-12-26 00:00:00 [facility] Medications Ordered Filled Start Stop Current Ordering Indication Dosage Frequency Signature Comments Components Source Medication Medication Date Date Medication? Clinician (SIG) Name Name heparin Yes 1000U/h 1,000 Univer s 25,000 4-21 Units/hr ity of Units/250 11:37: (10 [place] mL 57 mL/hr), IV Medical (Premixed Infusion, Bran h Bag) in TITRATE, 0.45 % NS Parameters in Admin. Instr., Starting on [place] 08/27/21 at 0637
CA UTION - If LMWH given in ER, AVOID bolus and start next dose/drip 12 hrs after ER dosage.&nb sp; M ust program rate using programmab le infusion pump.&nbsp ; Cassandra ck with the ordering provider first prior to any administra tion should the patient be on existing/a dditional anticoagul ant therapy. Rang e, Dosing and Testing: &nbs p;FOR [place], [facility] AND [facility] ONLY - aPTT < 35: & nbsp;Bolus 5000 units, increase rate 300 units/hr&n bsp; - aPTT 35-44:&nbs p; Joon rashida 3000 units, increase rate 200 units/hr&n bsp; - aPTT 45-54:&nbs p; In crease rate 100 units/hr&n bsp; - aPTT 55-85:&nbs p; NO CHANGE&nbs p; - aPTT 86-95:&nbs p; De crease rate 100 units/hr&n bsp; - aPTT 96-120:&nb sp; H old 30 minutes, decrease rate 150 units/hr&n bsp; - aPTT > 120: Hold 60 minutes, decrease rate 200 units/hr&n bsp; Check aPTT 6 hours after initiation , then Q6H after every change, aPTT Q12H once therapeuti c levels are reached.&n bsp; &nbs p; __ &n bsp;FOR [facility] ONLY - aPTT < 40: & nbsp;Bolus 5000 units, increase rate 300 units/hr&n bsp; - aPTT 40-49:&nbs p; Joon rashida 3000 units, increase rate 200 units/hr&n bsp; - aPTT 50-59:&nbs p; In crease rate 100 units/hr&n bsp; - aPTT 60-85:&nbs p; NO CHANGE&nbs p; - aPTT 86-95:&nbs p; De crease rate 100 units/hr&n bsp; - aPTT 96-120:&nb sp; H old 30 minutes, decrease rate 150 units/hr&n bsp; - aPTT > 120: Hold 60 minutes, decrease rate 200 units/hr&n bsp; Check aPTT 6 hours after initiation , then Q6H after every change, aPTT Q12H once therapeuti c levels are reached.&n bsp; DO NOT ADJUST INITIAL BOLUS OR INITIAL INFUSION RATE.
acetaminoph 2021-0 2021- No 1000mg 1,000 mg, Univers en 2-05 02-05 Oral, ity of (TYLENOL) 23:00: 22:06 ONCE, [place] tablet [place] :[place] dose, On Medical 1,000 mg 06/13/21 Branc h at 1700, LORI aspirin 2021-0 Yes 325mg Take 325 Unive rs E.C. 2-05 mg by ity of (ECOTRIN) 15:43: mouth [place] 325 mg EC 23 daily. Medical tablet Branch terazosin 2021-0 Yes 5mg Take 5 mg Uni vers (HYTRIN) 5 2-05 by mouth 2 ity of mg capsule 15:43: (two) [place] 23 times Medical daily. Branch aspirin 2021-0 Yes 325mg Take 325 Unive rs E.C. 2-05 mg by ity of (ECOTRIN) 15:43: mouth [place] 325 mg EC 23 daily. Medical tablet Branch terazosin 2021-0 Yes 5mg Take 5 mg Uni vers (HYTRIN) 5 2-05 by mouth 2 ity of mg capsule 15:43: (two) [place] 23 times Medical daily. Branch aspirin 2021-0 Yes 325mg Take 325 Unive rs E.C. 2-05 mg by ity of (ECOTRIN) 15:43: mouth [place] 325 mg EC 23 daily. Medical tablet Branch terazosin 2021-0 Yes 5mg Take 5 mg Uni vers (HYTRIN) 5 2-05 by mouth 2 ity of mg capsule 15:43: (two) [place] 23 times Medical daily. Branch aspirin 2021-0 Yes 325mg Take 325 Unive rs E.C. 2-05 mg by ity of (ECOTRIN) 15:43: mouth [place] 325 mg EC 23 daily. Medical tablet Branch terazosin 2021-0 Yes 5mg Take 5 mg Uni vers (HYTRIN) 5 2-05 by mouth 2 ity of mg capsule 15:43: (two) [place] 23 times Medical daily. Branch methocarbam 2021-0 Yes [id number] 500mg Take 1 Univers oL 2-05 tablet by ity of (ROBAXIN) 00:00: mouth 3 [place] 500 mg 00 (three) Medical tablet times Branch daily as needed for Pain (scale 4-6). methocarbam 2021-0 Yes [id number] 500mg Take 1 Univers oL 2-05 tablet by ity of (ROBAXIN) 00:00: mouth 3 [place] 500 mg 00 (three) Medical tablet times Branch daily as needed for Pain (scale 4-6). methocarbam 0 Yes [id number] 500mg Take 1 Univers oL 2-05 tablet by ity of (ROBAXIN) 00:00: mouth 3 [place] 500 mg 00 (three) Medical tablet times Branch daily as needed for Pain (scale 4-6). methocarbam Yes [id number] 500mg Take 1 Univers oL 2-05 tablet by ity of (ROBAXIN) 00:00: mouth 3 [place] 500 mg 00 (three) Medical tablet times Branch daily as needed for Pain (scale 4-6). terazosin Yes [id number] 5mg Take 5 mg [facility] (HYTRIN) 5 5-13 9108 by mouth Colle ge MG capsule 15:58: two times of 39 daily. Medicin e [place]-3 Yes [id number] Take by [facility] Fatty Acids 5-13 9108 mouth [place] (FISH OIL) 15:58: daily. of 1200 MG 39 Reported Medicin CPDR on e 07/14/2016 tramadol 2020-0 Yes [id number] 50mg Take 50 mg [facility] (ULTRAM) 50 5-13 by mouth Suly ege MG tablet 15:58: every 8 of 39 hours as Medicin needed for e Pain. aspirin 325 0 Yes [id number] 650mg Take 650 [facility] mg tablet 5-13 mg by [place] 15:58: mouth of 39 every 6 Medicin hours as e needed for Pain. Sevelamer 0 Yes [id number] 800mg Take 800 [facility] Carbonate 5-13 mg by [place] 800 MG TABS 15:58: mouth of 39 daily. Medicin e terazosin Yes [id number] 5mg Take 5 mg [facility] (HYTRIN) 5 5-13 9108 by mouth Colle ge MG capsule 15:58: two times of 39 daily. Medicin e [place]-3 2020-0 Yes [id number] Take by [facility] Fatty Acids 5-13 9108 mouth [place] (FISH OIL) 15:58: daily. of 1200 MG 39 Reported Medicin CPDR on e 07/14/2016 tramadol 2021-0 Yes [id number] 50mg Take 50 mg [facility] (ULTRAM) 50 5-13 by mouth Suly ege MG tablet 15:58: every 8 of 39 hours as Medicin needed for e Pain. aspirin 325 0 Yes [id number] 650mg Take 650 [facility] mg tablet 5-13 mg by [place] 15:58: mouth of 39 every 6 Medicin hours as e needed for Pain. Sevelamer Yes [id number] 800mg Take 800 [facility] Carbonate 5-13 mg by [place] 800 MG TABS 15:58: mouth of 39 daily. Medicin e terazosin Yes [id number] 5mg Take 5 mg [facility] (HYTRIN) 5 5-10 9108 by mouth Colle ge MG capsule 14:52: two times of 18 daily. Medicin e [place]-3 Yes [id number] Take by [facility] Fatty Acids 5-10 9108 mouth [place] (FISH OIL) 14:52: daily. of 1200 MG 18 Reported Medicin CPDR on e 07/14/2016 tramadol 0 Yes [id number] 50mg Take 50 mg [facility] (ULTRAM) 50 5-10 by mouth Suly ege MG tablet 14:52: every 8 of 18 hours as Medicin needed for e Pain. aspirin 325 0 Yes [id number] 650mg Take 650 [facility] mg tablet 5-10 mg by [place] 14:52: mouth of 18 every 6 Medicin hours as e needed for Pain. Sevelamer Yes [id number] 800mg Take 800 [facility] Carbonate 5-10 mg by [place] 800 MG TABS 14:52: mouth of 18 daily. Medicin e Fluticasone Yes [id number] Inhale 1 [facility] -Umeclidin- 5-10 Inhalation [facility] 00:00: s by mouth of 100-62.5-25 00 daily. Medici n MCG/INH e AEPB Fluticasone Yes [id number] Inhale 1 [facility] -Umeclidin- 5-10 Inhalation Co [facility] 00:00: s by mouth of 100-62.5-25 00 daily. Medici n MCG/INH e AEPB folic acid Yes 800ug Take 2 [facility] (FOLVITE) 3-24 Tablets by Suly ege 400 MCG 00:00: mouth of tablet 00 daily. Medicin Take 1 tab e daily folic acid 2020-0 Yes 800ug Take 2 [facility] (FOLVITE) 3-24 Tablets by Suly ege 400 MCG 00:00: mouth of tablet 00 daily. Medicin e folic acid 2020-0 Yes 800ug Take 2 [facility] (FOLVITE) 3-24 Tablets by Suly ege 400 MCG 00:00: mouth of tablet 00 daily. Medicin Take 1 tab e daily folic acid 2020-0 Yes 800ug Take 2 [facility] (FOLVITE) 3-24 Tablets by Suly ege 400 MCG 00:00: mouth of tablet 00 daily. Medicin e folic acid 2020-0 Yes 800ug Take 2 [facility] (FOLVITE) 3-24 Tablets by Suly ege 400 MCG 00:00: mouth of tablet 00 daily. Medicin Take 1 tab e daily folic acid 2020-0 Yes 800ug Take 2 [facility] (FOLVITE) 3-24 Tablets by Suly ege 400 MCG 00:00: mouth of tablet 00 daily. Medicin e terazosin Yes [id number] 5mg Take 5 mg [facility] (HYTRIN) 5 3-17 9108 by mouth Colle ge MG capsule 20:16: two times of 33 daily. Medicin e [place]-3 Yes [id number] Take by [facility] Fatty Acids 3-17 9108 mouth [place] (FISH OIL) 20:16: daily. of 1200 MG 33 Reported Medicin CPDR on e 07/14/2016 tramadol 2020-0 Yes [id number] 50mg Take 50 mg [facility] (ULTRAM) 50 3-17 by mouth Suly ege MG tablet 20:16: every 8 of 33 hours as Medicin needed for e Pain. aspirin 325 2020-0 Yes [id number] 650mg Take 650 [facility] mg tablet 3-17 mg by [place] 20:16: mouth of 33 every 6 Medicin hours as e needed for Pain. Sevelamer 2020-0 Yes [id number] 800mg Take 800 [facility] Carbonate 3-17 mg by [place] 800 MG TABS 20:16: mouth of 33 daily. Medicin e terazosin 2020- Yes [id number] 5mg Take 5 mg [facility] (HYTRIN) 5 3-17 9108 by mouth Colle ge MG capsule 20:16: two times of 33 daily. Medicin e [place]-3 Yes [id number] Take by [facility] Fatty Acids 07-2308 mouth [place] (FISH OIL) 20:16: daily. of 1200 MG 33 Reported Medicin CPDR on e 07/14/2016 tramadol 2020-0 Yes [id number] 50mg Take 50 mg [facility] (ULTRAM) 50 3-17 by mouth Suly ege MG tablet 20:16: every 8 of 33 hours as Medicin needed for e Pain. aspirin 325 2020-0 Yes [id number] 650mg Take 650 [facility] mg tablet 3-17 mg by [place] 20:16: mouth of 33 every 6 Medicin hours as e needed for Pain. Sevelamer Yes [id number] 800mg Take 800 [facility] Carbonate 3-17 mg by [place] 800 MG TABS 20:16: mouth of 33 daily. Medicin e lovastatin 2020-0 2020- No [id number] 20mg Take 20 mg [facility] (MEVACOR) 06-1208 by mouth Colle ge 20 MG 20:42: 00:00 every of tablet 28 :00 evening. Medicin e metoprolol 2020-2020- No [id number] 50mg Take 50 mg [facility] (TOPROL-XL) 06-12 by mouth Col lege 25 MG XL 20:42: 00:00 two times of tablet 28 :00 daily. Medicin e hydrALAZINE 2020- No [id number] 100mg Take 100 [facility] (APRESOLINE 06-12 9108 [facility] 25 MG 20:38: 00:00 mouth four of tablet 12 :00 times Medicin daily. e terazosin Yes [id number] 5mg Take 5 mg [facility] (HYTRIN) 5 06-12 by mouth Colle ge MG capsule 19:59: two times of 08 daily. Medicin e [place]-3 2020- Yes [id number] Take by [facility] Fatty Acids 06-12 mouth [place] (FISH OIL) 19:59: daily. of 1200 MG 08 Reported Medicin CPDR on e 07/14/2016 tramadol 2021-0 Yes [id number] 50mg Take 50 mg [facility] (ULTRAM) 50 2-04 by mouth Suly ege MG tablet 19:59: every 8 of 08 hours as Medicin needed for e Pain. aspirin 325 2020-0 Yes [id number] 650mg Take 650 [facility] mg tablet 2-04 mg by [place] 19:59: mouth of 08 every 6 Medicin hours as e needed for Pain. Sevelamer 2020-0 Yes [id number] 800mg Take 800 [facility] Carbonate 2-04 mg by [place] 800 MG TABS 19:59: mouth of 08 daily. Medicin e hydrALAZINE Yes 100mg Take 1 [facility] (APRESOLINE 2-04 Tablet by Col lege ) 100 MG 00:00: mouth 3 of tablet 00 times Medicin daily. e lovastatin Yes [id number] 20mg Take 1 [facility] (MEVACOR) 2-04 9108 Tablet by Colle ge 20 MG 00:00: mouth of tablet 00 every Medicin evening. e metoprolol Yes [id number] 50mg Take 2 [facility] (TOPROL-XL) 2-04 Tablets by Co llege 25 MG XL 00:00: mouth two of tablet 00 times Medicin daily. e hydrALAZINE Yes 100mg Take 1 [facility] (APRESOLINE 2-04 Tablet by Col lege ) 100 MG 00:00: mouth 3 of tablet 00 times Medicin daily. e lovastatin Yes [id number] 20mg Take 1 [facility] (MEVACOR) 2-04 9108 Tablet by Colle ge 20 MG 00:00: mouth of tablet 00 every Medicin evening. e metoprolol Yes [id number] 50mg Take 2 [facility] (TOPROL-XL) 2-04 Tablets by Co llege 25 MG XL 00:00: mouth two of tablet 00 times Medicin daily. e hydrALAZINE 0 Yes 100mg Take 1 [facility] (APRESOLINE 2-04 Tablet by Col lege ) 100 MG 00:00: mouth 3 of tablet 00 times Medicin daily. e lovastatin 2020-0 Yes [id number] 20mg Take 1 [facility] (MEVACOR) 2-04 9108 Tablet by Colle ge 20 MG 00:00: mouth of tablet 00 every Medicin evening. e metoprolol Yes [id number] 50mg Take 2 [facility] (TOPROL-XL) 2-04 Tablets by Co llege 25 MG XL 00:00: mouth two of tablet 00 times Medicin daily. e hydrALAZINE Yes 100mg Take 1 [facility] (APRESOLINE 2-04 Tablet by Col lege ) 100 MG 00:00: mouth 3 of tablet 00 times Medicin daily. e lovastatin Yes [id number] 20mg Take 1 [facility] (MEVACOR) 2-04 9108 Tablet by Colle ge 20 MG 00:00: mouth of tablet 00 every Medicin evening. e metoprolol Yes [id number] 50mg Take 2 [facility] (TOPROL-XL) 2-04 Tablets by Co llege 25 MG XL 00:00: mouth two of tablet 00 times Medicin daily. e hydrALAZINE Yes 100mg Take 1 [facility] (APRESOLINE 2-04 Tablet by Col lege ) 100 MG 00:00: mouth 3 of tablet 00 times Medicin daily. e lovastatin Yes [id number] 20mg Take 1 [facility] (MEVACOR) 2-04 9108 Tablet by Colle ge 20 MG 00:00: mouth of tablet 00 every Medicin evening. e metoprolol Yes [id number] 50mg Take 2 [facility] (TOPROL-XL) 2-04 Tablets by Co llege 25 MG XL 00:00: mouth two of tablet 00 times Medicin daily. e lovastatin 2019-05 Yes [id number] 20mg Take 20 mg [facility] (MEVACOR) 1-18 9108 by mouth Colleg e 20 MG 20:52: every of tablet 44 evening. Medicin e hydrALAZINE 2019-05 Yes [id number] 100mg Take 100 [facility] (APRESOLINE 1-18 9108 mg by [place] ) 25 MG 20:52: mouth four of tablet 44 times Medicin daily. e terazosin 2019-05 Yes [id number] 5mg Take 5 mg [facility] (HYTRIN) 5 -18 9108 by mouth Colle ge MG capsule 20:52: two times of 44 daily. Medicin e [place]-3 2019-05 Yes [id number] Take by [facility] Fatty Acids 1-18 08 mouth [place] (FISH OIL) 20:52: daily. of 1200 MG 44 Reported Medicin CPDR on e 07/14/2016 tramadol 2019-05 Yes [id number] 50mg Take 50 mg [facility] (ULTRAM) 50 1-18 by mouth Suly ege MG tablet 20:52: every 8 of 44 hours as Medicin needed for e Pain. metoprolol 2019-05 Yes [id number] 50mg Take 50 mg [facility] (TOPROL-XL) 1-18 by mouth Suly ege 25 MG XL 20:52: two times of tablet 44 daily. Medicin e aspirin 325 2019-05 Yes [id number] 650mg Take 650 [facility] mg tablet 1-18 mg by [place] 20:52: mouth of 44 every 6 Medicin hours as e needed for Pain. Sevelamer 2019-05 Yes [id number] 800mg Take 800 [facility] Carbonate 1-18 mg by [place] 800 MG TABS 20:52: mouth of 44 daily. Medicin e lovastatin 2019-05 Yes [id number] 20mg Take 20 mg [facility] (MEVACOR) 05-13 by mouth Colleg e 20 MG 19:35: every of tablet 29 evening. Medicin e hydrALAZINE 2019-05 Yes [id number] 100mg Take 100 [facility] (APRESOLINE 05-1308 mg by [place] ) 25 MG 19:35: mouth four of tablet 29 times Medicin daily. e terazosin 2019-05 Yes [id number] 5mg Take 5 mg [facility] (HYTRIN) 5 05-13 by mouth Colle ge MG capsule 19:35: two times of 29 daily. Medicin e [place]-3 2019-05 Yes [id number] Take by [facility] Fatty Acids 05-13 mouth [place] (FISH OIL) 19:35: daily. of 1200 MG 29 Reported Medicin CPDR on e 07/14/2016 tramadol 2019-05 Yes [id number] 50mg Take 50 mg [facility] (ULTRAM) 50 1-05 by mouth Suly ege MG tablet 19:35: every 8 of 29 hours as Medicin needed for e Pain. metoprolol 2019-05 Yes [id number] 50mg Take 50 mg [facility] (TOPROL-XL) 1-05 by mouth Suly ege 25 MG XL 19:35: two times of tablet 29 daily. Medicin e aspirin 325 2020-1 Yes [id number] 650mg Take 650 [facility] mg tablet 1-05 mg by College 19:35: mouth of 29 every 6 Medicin hours as e needed for Pain. Sevelamer 2020-1 Yes [id number] 800mg Take 800 [facility] Carbonate 1-05 mg by [place] 800 MG TABS 19:35: mouth of 29 daily. Medicin e tramadol 2020-0 Yes [id number] 50mg Take 50 mg [facility] (ULTRAM) 50 7-30 by mouth Suly ege MG tablet 20:17: every 8 of 40 hours as Medicin needed for e Pain. metoprolol 2020-0 Yes [id number] 50mg Take 50 mg [facility] (TOPROL-XL) 7-30 by mouth Suly ege 25 MG XL 20:17: two times of tablet 40 daily. Medicin e aspirin 325 2020-0 Yes [id number] 650mg Take 650 [facility] mg tablet 7-30 mg by [place] 20:17: mouth of 40 every 6 Medicin hours as e needed for Pain. Sevelamer 2020-0 Yes [id number] 800mg Take 800 [facility] Carbonate 7-30 mg by [place] 800 MG TABS 20:17: mouth of 40 daily. Medicin e lovastatin 2020-0 Yes [id number] 20mg Take 20 mg [facility] (MEVACOR) 7-30 9108 by mouth [facility] 20 MG 20:17: every of tablet 40 evening. Medicin e hydrALAZINE 2020-0 Yes [id number] 100mg Take 100 [facility] (APRESOLINE 7-30 9108 mg by [place] ) 25 MG 20:17: mouth four of tablet 40 times Medicin daily. e terazosin 2020-0 Yes [id number] 5mg Take 5 mg [facility] (HYTRIN) 5 7-30 9108 by mouth Colle ge MG capsule 20:17: two times of 40 daily. Medicin e [place]-3 2020-0 Yes [id number] Take by [facility] Fatty Acids 7-30 9108 mouth [place] (FISH OIL) 20:17: daily. of 1200 MG 40 Reported Medicin CPDR on e 07/14/2016 methylPREDN 2020-0 Yes [id number] 4mg Take 1 Tab [facility] ISolone 7-20 by mouth [place] (MEDROL 00:00: See Admin of DOSEPACK) 4 00 Instructio Me dicin MG tablet ns. e Fluticasone 2020-0 Yes [id number] Inhale 1 [facility] -Umeclidin- 7-20 Inhalation [facility] [place] 00:00: s by mouth of 100-62.5-25 00 daily. Medici n MCG/INH e AEPB methylPREDN 2020-0 Yes [id number] 4mg Take 1 Tab [facility] ISolone 7-20 by mouth [place] (MEDROL 00:00: See Admin of DOSEPACK) 4 00 Instructio Me dicin MG tablet ns. e Fluticasone 2020-0 Yes [id number] Inhale 1 [facility] -Umeclidin- 7-20 Inhalation [facility] [place] 00:00: s by mouth of 100-62.5-25 00 daily. Medici n MCG/INH e AEPB methylPREDN 2020-0 Yes [id number] 4mg Take 1 Tab [facility] ISolone 7-20 by mouth [place] (MEDROL 00:00: See Admin of DOSEPACK) 4 00 Instructio Me dicin MG tablet ns. e Fluticasone 2020-0 Yes [id number] Inhale 1 [facility] -Umeclidin- 7-20 Inhalation [facility] [place] 00:00: s by mouth of 100-62.5-25 00 daily. Medici n MCG/INH e AEPB methylPREDN 2020-0 Yes [id number] 4mg Take 1 Tab [facility] ISolone 7-20 by mouth [place] (MEDROL 00:00: See Admin of DOSEPACK) 4 00 Instructio Me dicin MG tablet ns. e Fluticasone 2020-0 Yes [id number] Inhale 1 [facility] -Umeclidin- 7-20 Inhalation [facility] [place] 00:00: s by mouth of 100-62.5-25 00 daily. Medici n MCG/INH e AEPB methylPREDN 2020-0 Yes [id number] 4mg Take 1 Tab [facility] ISolone 7-20 by mouth [place] (MEDROL 00:00: See Admin of DOSEPACK) 4 00 Instructio Me dicin MG tablet ns. e Fluticasone 2020-0 Yes [id number] Inhale 1 [facility] -Umeclidin- 7-20 Inhalation [facility] [place] 00:00: s by mouth of 100-62.5-25 00 daily. Medici n MCG/INH e AEPB methylPREDN 2020-0 Yes [id number] 4mg Take 1 Tab [facility] ISolone 7-20 by mouth [facility] (MEDROL 00:00: See Admin of DOSEPACK) 4 00 Instructio Me dicin MG tablet ns. e Fluticasone 2020-0 Yes [id number] Inhale 1 [facility] -Umeclidin- 7-20 Inhalation [facility] [place] 00:00: s by mouth of 100-62.5-25 00 daily. Medici n MCG/INH e AEPB methylPREDN 2020-0 Yes [id number] 4mg Take 1 Tab [facility] ISolone 7-20 by mouth [facility] (MEDROL 00:00: See Admin of DOSEPACK) 4 00 Instructio Me dicin MG tablet ns. e methylPREDN 2020-0 Yes [id number] 4mg Take 1 Tab [facility] ISolone 7-20 by mouth [facility] (MEDROL 00:00: See Admin of DOSEPACK) 4 00 Instructio Me dicin MG tablet ns. e methylPREDN 2020-0 Yes [id number] 4mg Take 1 Tab [facility] ISolone 7-20 by mouth [facility] (MEDROL 00:00: See Admin of DOSEPACK) 4 00 Instructio Me dicin MG tablet ns. e methylPREDN 2020-0 Yes [id number] 4mg Take 1 Tab [facility] ISolone 7-20 by mouth [facility] (MEDROL 00:00: See Admin of DOSEPACK) 4 00 Instructio Me dicin MG tablet ns. e Fluticasone 2020-0 Yes [id number] Inhale 1 [facility] -Umeclidin- 7-20 Inhalation [facility] [place] 00:00: s by mouth of 100-62.5-25 00 daily. Medici n MCG/INH e AEPB Fluticasone 2020-0 1- No [id number] Inhale 1 [facility] -Umeclidin- 7-20 05-10 Inhalation [facility] [place] 00:00: 00:00 s by mouth of 100-62.5-25 00 :00 daily. Medici n MCG/INH e AEPB azithromyci 2020-0 2020- No [id number] Take 2 [facility] n 7-20 07-26 Tabs by College (ZITHROMAX 00:00: 04:59 mouth of Z-BRITTANIE) 250 00 :00 daily for Medi [place] MG tablet 1 day, e THEN 1 Tab daily for 4 days. lovastatin 2020-0 Yes [id number] 20mg Take 20 mg [facility] (MEVACOR) 5-13 9108 by mouth [facility] e 20 MG 21:24: every of tablet 36 evening. Medicin e hydrALAZINE 2020-0 Yes [id number] 100mg Take 100 [facility] (APRESOLINE 5-13 9108 mg by [place] ) 25 MG 21:24: mouth four of tablet 36 times Medicin daily. e terazosin 2020-0 Yes [id number] 5mg Take 5 mg [facility] (HYTRIN) 5 5-13 9108 by mouth Colle ge MG capsule 21:24: two times of 36 daily. Medicin e [place]-3 2020-0 Yes [id number] Take by [facility] Fatty Acids 5-13 9108 mouth [place] (FISH OIL) 21:24: daily. of 1200 MG 36 Reported Medicin CPDR on e 07/14/2016 tramadol 2020-0 Yes [id number] 50mg Take 50 mg [facility] (ULTRAM) 50 5-13 by mouth [place] MG tablet 21:24: every 8 of 36 hours as Medicin needed for e Pain. metoprolol 2020-0 Yes [id number] 50mg Take 50 mg [facility] (TOPROL-XL) 5-13 by mouth [place] 25 MG XL 21:24: two times of tablet 36 daily. Medicin e aspirin 325 2020-0 Yes [id number] 650mg Take 650 [facility] mg tablet 5-13 mg by [place] 21:24: mouth of 36 every 6 Medicin hours as e needed for Pain. Sevelamer 2020-0 Yes [id number] 800mg Take 800 [facility] Carbonate 5-13 mg by [place] 800 MG TABS 21:24: mouth of 36 daily. Medicin e lovastatin 2020-0 Yes [id number] 20mg Take 20 mg [facility] (MEVACOR) 5-13 9108 by mouth [facility] e 20 MG 21:24: every of tablet 36 evening. Medicin e hydrALAZINE 2020-0 Yes [id number] 100mg Take 100 [facility] (APRESOLINE 5-13 9108 mg by [place] ) 25 MG 21:24: mouth four of tablet 36 times Medicin daily. e terazosin 2020-0 Yes [id number] 5mg Take 5 mg [facility] (HYTRIN) 5 5-13 9108 by mouth Colle ge MG capsule 21:24: two times of 36 daily. Medicin e [place]-3 2020-0 Yes [id number] Take by [facility] Fatty Acids 5-13 9108 mouth [facility] (FISH OIL) 21:24: daily. of 1200 MG 36 Reported Medicin CPDR on e 07/14/2016 tramadol 2020-0 Yes [id number] 50mg Take 50 mg [facility] (ULTRAM) 50 5-13 by mouth [place] MG tablet 21:24: every 8 of 36 hours as Medicin needed for e Pain. metoprolol 2020-0 Yes [id number] 50mg Take 50 mg [facility] (TOPROL-XL) 5-13 by mouth [place] 25 MG XL 21:24: two times of tablet 36 daily. Medicin e aspirin 325 2020-0 Yes [id number] 650mg Take 650 [facility] mg tablet 5-13 mg by College 21:24: mouth of 36 every 6 Medicin hours as e needed for Pain. Sevelamer 2020-0 Yes [id number] 800mg Take 800 [facility] Carbonate 5-13 mg by [place] 800 MG TABS 21:24: mouth of 36 daily. Medicin e cetirizine 2020-0 Yes 5mg Take 1 Tab [facility] (ZYRTEC) 5 5-13 by mouth Colle [facility] MG tablet 00:00: daily. of 00 Medicin e Diclofenac 2020-0 Yes 18mg Take 18 mg [facility] 18 MG CAPS 5-13 by mouth Colle ge 00:00: daily. of 00 Medicin e cetirizine 2020-0 Yes 5mg Take 1 Tab [facility] (ZYRTEC) 5 5-13 by mouth Colle [facility] MG tablet 00:00: daily. of 00 Medicin e Diclofenac 2020-0 Yes 18mg Take 18 mg [facility] 18 MG CAPS 5-13 by mouth [facility]le [facility] 00:00: daily. of 00 Medicin e cetirizine 2020-0 Yes 5mg Take 1 Tab [facility] (ZYRTEC) 5 5-13 by mouth Colle ge MG tablet 00:00: daily. of 00 Medicin e Diclofenac 2020-0 Yes 18mg Take 18 mg [facility] 18 MG CAPS 5-13 by mouth Colle ge 00:00: daily. of 00 Medicin e cetirizine 2020-0 Yes 5mg Take 1 Tab [facility] (ZYRTEC) 5 5-13 by mouth Colle ge MG tablet 00:00: daily. of 00 Medicin e Diclofenac 2020-0 Yes 18mg Take 18 mg [facility] 18 MG CAPS 5-13 by mouth Colle ge 00:00: daily. of 00 Medicin e cetirizine 2020-0 Yes 5mg Take 1 Tab [facility] (ZYRTEC) 5 5-13 by mouth Colle ge MG tablet 00:00: daily. of 00 Medicin e Diclofenac 2020-0 Yes 18mg Take 18 mg [facility] 18 MG CAPS 5-13 by mouth Colle ge 00:00: daily. of Medicin e cetirizine 2020-0 Yes 5mg Take 1 Tab [facility] (ZYRTEC) 5 5-13 by mouth Colle ge MG tablet 00:00: daily. of Medicin e Diclofenac 2020-0 Yes 18mg Take 18 mg [facility] [place] 18 MG CAPS 5-13 by mouth Colle ge 00:00: daily. of 00 Medicin e cetirizine 2020-0 Yes 5mg Take 1 Tab [facility] (ZYRTEC) 5 5-13 by mouth Colle ge MG tablet 00:00: daily. of Medicin e Diclofenac 2020-0 Yes 18mg Take 18 mg [facility] 18 MG CAPS 5-13 by mouth Colle ge 00:00: daily. of Medicin e cetirizine 2020-0 Yes 5mg Take 1 Tab [facility] (ZYRTEC) 5 5-13 by mouth Colle ge MG tablet 00:00: daily. of 00 Medicin e Diclofenac 2020-0 Yes 18mg Take 18 mg [facility] 18 MG CAPS 5-13 by mouth Colle ge 00:00: daily. of 00 Medicin e cetirizine 2020-0 Yes 5mg Take 1 Tab [facility] (ZYRTEC) 5 5-13 by mouth Colle ge MG tablet 00:00: daily. of 00 Medicin e Diclofenac 2020-0 Yes 18mg Take 18 mg [facility] 18 MG CAPS 5-13 by mouth Colle ge 00:00: daily. of 00 Medicin e cetirizine 2020-0 Yes 5mg Take 1 Tab [facility] (ZYRTEC) 5 5-13 by mouth Colle ge MG tablet 00:00: daily. of Medicin e Diclofenac 2020-0 Yes 18mg Take 18 mg [facility] 18 MG CAPS 5-13 by mouth Colle ge 00:00: daily. of Medicin e cetirizine 2019-0 Yes 5mg Take 1 Tab [facility] (ZYRTEC) 5 5-13 by mouth Colle ge MG tablet 00:00: daily. of Medicin e Diclofenac 2020-0 Yes 18mg Take 18 mg [facility] [place] 18 MG CAPS 5-13 by mouth Colle ge 00:00: daily. of Medicin e Apixaban Yes [id number] 2.5mg Take 2.5 [facility] (ELIQUIS) 5-08 mg by [facility] 2.5 MG TABS 00:00: mouth two o f 00 times Medicin daily. e NIFEdipine Yes [id number] 90mg Take 90 mg [facility] CR Osmotic 5-08 9108 by mouth Colle ge 60 MG TB24 00:00: daily. of Medicin e Apixaban Yes [id number] 2.5mg Take 2.5 [facility] (ELIQUIS) 5-08 mg by [place] 2.5 MG TABS 00:00: mouth two o f 00 times Medicin daily. e NIFEdipine Yes [id number] 90mg Take 90 mg [facility] CR Osmotic 5-08 9108 by mouth Colle ge 60 MG TB24 00:00: daily. of Medicin e Apixaban Yes [id number] 2.5mg Take 2.5 [facility] (ELIQUIS) 5-08 mg by [place] 2.5 MG TABS 00:00: mouth two o f 00 times Medicin daily. e NIFEdipine Yes [id number] 90mg Take 90 mg [facility] CR Osmotic 5-08 9108 by mouth Colle ge 60 MG TB24 00:00: daily. of Medicin e Apixaban Yes [id number] 2.5mg Take 2.5 [facility] (ELIQUIS) 5-08 mg by College 2.5 MG TABS 00:00: mouth two o f 00 times Medicin daily. e NIFEdipine Yes [id number] 90mg Take 90 mg [facility] CR Osmotic 5-08 9108 by mouth Colle ge 60 MG TB24 00:00: daily. of Medicin e Apixaban Yes [id number] 2.5mg Take 2.5 [facility] (ELIQUIS) 5-08 mg by [facility] 2.5 MG TABS 00:00: mouth two o f 00 times Medicin daily. e NIFEdipine Yes [id number] 90mg Take 90 mg [facility] CR Osmotic 5-08 9108 by mouth Colle ge 60 MG TB24 00:00: daily. of Medicin e Apixaban Yes [id number] 2.5mg Take 2.5 [facility] (ELIQUIS) 5-08 mg by [facility] 2.5 MG TABS 00:00: mouth two o f 00 times Medicin daily. e NIFEdipine Yes [id number] 90mg Take 90 mg [facility] CR Osmotic 5-08 9108 by mouth Colle ge 60 MG TB24 00:00: daily. of Medicin e Apixaban Yes [id number] 2.5mg Take 2.5 [facility] (ELIQUIS) 5-08 mg by [place] 2.5 MG TABS 00:00: mouth two o f 00 times Medicin daily. e NIFEdipine Yes [id number] 90mg Take 90 mg [facility] CR Osmotic 5-08 9108 by mouth Colle ge 60 MG TB24 00:00: daily. of Medicin e Apixaban Yes [id number] 2.5mg Take 2.5 [facility] (ELIQUIS) 5-08 mg by [place] 2.5 MG TABS 00:00: mouth two o f 00 times Medicin daily. e NIFEdipine Yes [id number] 90mg Take 90 mg [facility] CR Osmotic 5-08 9108 by mouth Colle ge 60 MG TB24 00:00: daily. of Medicin e Apixaban Yes [id number] 2.5mg Take 2.5 [facility] (ELIQUIS) 5-08 mg by [facility] 2.5 MG TABS 00:00: mouth two o f 00 times Medicin daily. e NIFEdipine Yes [id number] 90mg Take 90 mg [facility] CR Osmotic 5-08 9108 by mouth Colle ge 60 MG TB24 00:00: daily. of Medicin e Apixaban Yes [id number] 2.5mg Take 2.5 [facility] (ELIQUIS) 5-08 mg by [place] 2.5 MG TABS 00:00: mouth two o f 00 times Medicin daily. e NIFEdipine Yes [id number] 90mg Take 90 mg [facility] CR Osmotic 5-08 9108 by mouth Colle ge 60 MG TB24 00:00: daily. of Medicin e Apixaban Yes [id number] 2.5mg Take 2.5 [facility] (ELIQUIS) 5-08 mg by [place] 2.5 MG TABS 00:00: mouth two o f 00 times Medicin daily. e NIFEdipine Yes [id number] 90mg Take 90 mg [facility] CR Osmotic 5-08 9108 by mouth Colle ge 60 MG TB24 00:00: daily. of Medicin e sertraline 2017-05 Yes 12.5mg Take 0.5 [facility] (ZOLOFT) 25 2-19 Tabs by Colle ge MG tablet 00:00: mouth of 00 daily. Medicin Take half e tablet daily sertraline 2017-05 Yes 12.5mg Take 0.5 [facility] (ZOLOFT) 25 2-19 Tabs by Colle ge MG tablet 00:00: mouth of 00 daily. Medicin Take half e tablet daily sertraline 2017-05 Yes 12.5mg Take 0.5 [facility] (ZOLOFT) 25 2-19 Tabs by Colle ge MG tablet 00:00: mouth of 00 daily. Medicin Take half e tablet daily sertraline 2017-05 Yes 12.5mg Take 0.5 [facility] (ZOLOFT) 25 2-19 Tabs by Colle ge MG tablet 00:00: mouth of 00 daily. Medicin Take half e tablet daily sertraline 2017-05 Yes 12.5mg Take 0.5 [facility] (ZOLOFT) 25 2-19 Tabs by Colle ge MG tablet 00:00: mouth of 00 daily. Medicin Take half e tablet daily sertraline 2017-05 Yes 12.5mg Take 0.5 [facility] (ZOLOFT) 25 2-19 Tabs by Colle ge MG tablet 00:00: mouth of 00 daily. Medicin Take half e tablet daily sertraline 2017-05 Yes 12.5mg Take 0.5 [facility] (ZOLOFT) 25 2-19 Tabs by Colle ge MG tablet 00:00: mouth of 00 daily. Medicin Take half e tablet daily sertraline 2017-05 Yes 12.5mg Take 0.5 [facility] (ZOLOFT) 25 2-19 Tabs by Colle ge MG tablet 00:00: mouth of 00 daily. Medicin Take half e tablet daily sertraline 2017-05 Yes 12.5mg Take 0.5 [facility] (ZOLOFT) 25 2-19 Tabs by Colle ge MG tablet 00:00: mouth of 00 daily. Medicin Take half e tablet daily sertraline 2017-05 Yes 12.5mg Take 0.5 [facility] (ZOLOFT) 25 2-19 Tabs by Colle ge MG tablet 00:00: mouth of 00 daily. Medicin Take half e tablet daily sertraline 2017-05 Yes 12.5mg Take 0.5 [facility] (ZOLOFT) 25 2-19 Tabs by Colle ge MG tablet 00:00: mouth of 00 daily. Medicin Take half e tablet daily metoprolol Yes [facility] (TOPROL-XL) 927 [facility] 100 MG XL 00:00: of tablet 00 Medicin e metoprolol Yes [facility] (TOPROL-XL) 927 [facility] 100 MG XL 00:00: of tablet 00 Medicin e metoprolol Yes [facility] (TOPROL-XL) 927 College 100 MG XL 00:00: of tablet 00 Medicin e metoprolol Yes [facility] (TOPROL-XL) 927 College 100 MG XL 00:00: of tablet 00 Medicin e metoprolol Yes [facility] (TOPROL-XL) 927 [facility] 100 MG XL 00:00: of tablet 00 Medicin e metoprolol 2018-0 2020- No [facility] (TOPROL-XL) 927 02-04 College 100 MG XL 00:00: 00:00 of tablet 00 :00 Medicin e NIFEdipine Yes [facility] (ADALAT CC) 8-21 College 90 MG CR 00:00: of tablet 00 Medicin e NIFEdipine 2017- Yes [facility] (ADALAT CC) 8-21 College 90 MG CR 00:00: of tablet 00 Medicin e NIFEdipine Yes [facility] (ADALAT CC) 8-21 [facility] 90 MG CR 00:00: of tablet 00 Medicin e NIFEdipine Yes [facility] (ADALAT CC) 8-21 College 90 MG CR 00:00: of tablet 00 Medicin e NIFEdipine Yes [facility] (ADALAT CC) 8-21 College 90 MG CR 00:00: of tablet 00 Medicin e NIFEdipine Yes [facility] (ADALAT CC) 8-21 [facility] 90 MG CR 00:00: of tablet 00 Medicin e NIFEdipine Yes [facility] (ADALAT CC) 8-21 College 90 MG CR 00:00: of tablet 00 Medicin e NIFEdipine Yes [facility] (ADALAT CC) 8-21 College 90 MG CR 00:00: of tablet 00 Medicin e NIFEdipine Yes [facility] (ADALAT CC) 821 College 90 MG CR 00:00: of tablet 00 Medicin e NIFEdipine Yes [facility] (ADALAT CC) 8-21 College 90 MG CR 00:00: of tablet 00 Medicin e NIFEdipine Yes [facility] (ADALAT CC) 821 College 90 MG CR 00:00: of tablet 00 Medicin e terazosin 2015-05 Yes [id number] 4mg Take 2 [facility] (HYTRIN) 2 0-05 capsules ity o f mg capsule 00:00: by mouth [place] as 00 at Medical bedtime. Branch terazosin 2015-05 Yes [id number] 4mg Take 2 [facility] (HYTRIN) 2 0-05 capsules ity o f mg capsule 00:00: by mouth [place] as 00 at Medical bedtime. Branch terazosin 2015-05 Yes [id number] 4mg Take 2 [facility] (HYTRIN) 2 0-05 capsules ity o f mg capsule 00:00: by mouth [place] as 00 at Medical bedtime. Branch terazosin 2015-05 Yes [id number] 4mg Take 2 [facility] (HYTRIN) 2 0-05 capsules ity o f mg capsule 00:00: by mouth [place] as 00 at Medical bedtime. Branch hydralAZINE Yes [id number] 50mg Take 50 mg [facility] (APRESOLINE 01-13 by mouth 4 it y of ) 25 mg 00:00: (four) [place] tablet 00 times Medical daily. Branch metoprolol Yes [id number] 25mg Take 25 mg [facility] succinate 9-07 by mouth 2 ity of XL (TOPROL 00:00: (two) [place] XL) 25 mg 00 times Medical 24 hr daily. Branch tablet lisinopril 2015-0 Yes [id number] 40mg Take 40 mg [facility] (PRINIVIL,Z 9-07 by mouth 2 it y of ESTRIL) 40 00:00: (two) [place] mg tablet 00 times Medical daily. Branch hydralAZINE 2015-0 Yes [id number] 50mg Take 50 mg [facility] (APRESOLINE 9-07 by mouth 4 it y of ) 25 mg 00:00: (four) [place] tablet 00 times Medical daily. Branch metoprolol 2015-0 Yes [id number] 25mg Take 25 mg [facility] succinate 9-07 by mouth 2 ity of XL (TOPROL 00:00: (two) [place] XL) 25 mg 00 times Medical 24 hr daily. Branch tablet lisinopril 2015-0 Yes [id number] 40mg Take 40 mg [facility] (PRINIVIL,Z 9-07 by mouth 2 it y of ESTRIL) 40 00:00: (two) [place] mg tablet 00 times Medical daily. Branch hydralAZINE 2015-0 Yes [id number] 50mg Take 50 mg [facility] (APRESOLINE 9-07 by mouth 4 it y of ) 25 mg 00:00: (four) [place] tablet 00 times Medical daily. Branch metoprolol 2015-0 Yes [id number] 25mg Take 25 mg [facility] succinate 9-07 by mouth 2 ity of XL (TOPROL 00:00: (two) [place] XL) 25 mg 00 times Medical 24 hr daily. Branch tablet lisinopril 2015-0 Yes [id number] 40mg Take 40 mg [facility] (PRINIVIL,Z 9-07 by mouth 2 it y of ESTRIL) 40 00:00: (two) [place] mg tablet 00 times Medical daily. Branch hydralAZINE 2015-0 Yes [id number] 50mg Take 50 mg [facility] (APRESOLINE 9-07 by mouth 4 it y of ) 25 mg 00:00: (four) [place] tablet 00 times Medical daily. Branch metoprolol 2015-0 Yes [id number] 25mg Take 25 mg [facility] succinate 9-07 by mouth 2 ity of XL (TOPROL 00:00: (two) [place] XL) 25 mg 00 times Medical 24 hr daily. Branch tablet lisinopril 2015-0 Yes [id number] 40mg Take 40 mg [facility] (PRINIVIL,Z 9-07 by mouth 2 it y of ESTRIL) 40 00:00: (two) [place] mg tablet 00 times Medical daily. Branch NIFEdipine Yes [id number] 30mg Take 1 [facility] ER 8-19 tablet by ity of (AFEDITAB 00:00: mouth [place] CR) 30 mg 00 daily. Medical SR tablet Branch lovastatin Yes [id number] 20mg Take 1 [facility] (ALTOPREV) 8-19 tablet by ity of 20 mg 24 hr 00:00: [place] tablet 00 bedtime. Medical Branch NIFEdipine Yes [id number] 30mg Take 1 U nivers ER 8-19 tablet by ity of (AFEDITAB 00:00: mouth [place] CR) 30 mg 00 daily. Medical SR tablet Branch lovastatin Yes [id number] 20mg Take 1 [facility] (ALTOPREV) 8-19 tablet by ity of 20 mg 24 hr 00:00: mouth [place] tablet 00 bedtime. Medical Branch NIFEdipine Yes [id number] 30mg Take 1 U nivers ER 8-19 tablet by ity of (AFEDITAB 00:00: mouth [place] CR) 30 mg 00 daily. Medical SR tablet Branch lovastatin Yes [id number] 20mg Take 1 [facility] (ALTOPREV) 8-19 tablet by ity of 20 mg 24 hr 00:00: mouth [place] tablet 00 bedtime. Medical Branch NIFEdipine Yes [id number] 30mg Take 1 U nivers ER 8-19 tablet by ity of (AFEDITAB 00:00: mouth [place] CR) 30 mg 00 daily. Medical SR tablet Branch lovastatin Yes [id number] 20mg Take 1 [facility] (ALTOPREV) 8-19 tablet by ity of 20 mg 24 hr 00:00: mouth [place] tablet 00 bedtime. Medical Branch aspirin 81 2015- Yes 81mg Take 1 Unive rs mg chewable 6-28 tablet by ity of tablet 00:00: mouth [place] 00 daily. Medical Branch hydralAZINE 2015- Yes 50mg Take 1 Univ ers (APRESOLINE 6-28 tablet by ity of ) 50 mg 00:00: mouth [place] tablet 00 every 6 Medical (six) Branch hours. calcitriol Yes .25ug Take 1 Univ ers (ROCALTROL) 6-28 capsule by it y of 0.25 mcg 00:00: mouth [place] capsule 00 daily. Medical Branch aspirin 81 Yes 81mg Take 1 Unive rs mg chewable 6-28 tablet by ity of tablet 00:00: mouth [place] 00 daily. Medical Branch hydralAZINE Yes 50mg Take 1 Univ ers (APRESOLINE 6-28 tablet by ity of ) 50 mg 00:00: mouth [place] tablet 00 every 6 Medical (six) Branch hours. calcitriol Yes .25ug Take 1 Univ ers (ROCALTROL) 6-28 capsule by it y of 0.25 mcg 00:00: mouth [place] capsule 00 daily. Medical Branch aspirin 81 Yes 81mg Take 1 Unive rs mg chewable 6-28 tablet by ity of tablet 00:00: mouth [place] 00 daily. Medical Branch hydralAZINE Yes 50mg Take 1 Univ ers (APRESOLINE 6-28 tablet by ity of ) 50 mg 00:00: mouth [place] tablet 00 every 6 Medical (six) Branch hours. calcitriol Yes .25ug Take 1 Univ ers (ROCALTROL) 6-28 capsule by it y of 0.25 mcg 00:00: mouth [place] capsule 00 daily. Medical Branch aspirin 81 0 Yes 81mg Take 1 Unive rs mg chewable 6-28 tablet by ity of tablet 00:00: mouth [place] 00 daily. Medical Branch hydralAZINE Yes 50mg Take 1 Univ ers (APRESOLINE 6-28 tablet by ity of ) 50 mg 00:00: mouth [place] tablet 00 every 6 Medical (six) Branch hours. calcitriol Yes .25ug Take 1 Univ ers (ROCALTROL) 6-28 capsule by it y of 0.25 mcg 00:00: mouth [place] capsule 00 daily. Medical Branch Vital Signs Vital Name Observation Time Observation Value Comments Source WEIGHT 2020-07-25 19:11:00 95 kg WEIGHT 2020-07-25 15:25:00 98 kg HEIGHT 2021-09-01 10:55:00 182.1 cm WEIGHT 2021-09-01 10:55:00 98.657 kg WEIGHT 2021-08-29 10:45:00 91.8 kg WEIGHT 2021-08-29 07:40:00 94.8 kg WEIGHT 2021-08-29 10:45:00 91.8 kg WEIGHT 2021-08-29 07:40:00 94.8 kg Systolic blood 2021-08-27 14:25:59 128 mm[Hg] [facility] [place] [facility] Diastolic blood 2021-08-27 14:25:59 85 mm[Hg] [facility]ive rsity of pressure [place] [facility] Heart rate 2021-08-27 14:25:59 74 /min [facility] [place] [facility] Body temperature 2021-08-27 14:25:59 36.56 Chari [facility] [place] [facility] Respiratory rate 2021-08-27 14:25:59 18 /min [facility] [place] [facility] Oxygen saturation in 2021-08-27 14:25:59 100 /min [facility] of Arterial blood by [employer] dimitry Pulse oximetry Branch Body height 2021-08-27 10:45:00 180.3 cm [facility] [place] [facility] Body weight 2021-08-27 10:45:00 95.709 kg [facility] [place] [facility] BMI 2021-08-27 10:45:00 29.43 kg/m2 [facility] [place] [facility] Systolic blood 2021-06-13 21:40:00 151 mm[Hg] [facility] of [facility] [place] [facility] Diastolic blood 2021-06-13 21:40:00 93 mm[Hg] Unive rsity of pressure [place] [facility] Heart rate 2021-06-13 21:40:00 86 /min [facility] [place] [facility] Body temperature 2021-06-13 21:40:00 37.06 Chari [facility] [place] [facility] Respiratory rate 2021-06-13 21:40:00 18 /min [facility] [place] [facility] Body weight 2021-06-13 21:40:00 99.338 kg [facility] [place] [facility] BMI 2021-06-13 21:40:00 28.12 kg/m2 [facility] [place] [facility] Oxygen saturation in 2021-06-13 21:40:00 98 /min [facility] of Arterial blood by [employer] dimitry Pulse oximetry Branch Systolic blood 2020-09-18 20:56:00 156 mm[Hg] [place] [facility] Diastolic blood 2020-09-18 20:56:00 88 mm[Hg] [facility] Medicine Heart rate 2020-09-18 20:56:00 93 /min [facility] Body height 2020-09-18 20:56:00 188 cm [facility] Body weight 2020-09-18 20:56:00 94.076 kg [facility] BMI 2020-09-18 20:56:00 26.63 kg/m2 [facility] Systolic blood 2020-09-15 19:49:00 132 mm[Hg] [place] [facility] pressure Medicine Diastolic blood 2020-09-15 19:49:00 78 mm[Hg] [facility] Medicine Heart rate 2020-09-15 19:49:00 90 /min [facility] Body temperature 2020-09-15 19:49:00 36.72 [facility] Body height 2020-09-15 19:49:00 188 cm [facility] Body weight 2020-09-15 19:49:00 89.812 kg [facility] BMI 2020-09-15 19:49:00 25.42 kg/m2 [facility] Systolic blood 2020-09-09 18:57:00 120 mm[Hg] [facility] Medicine Diastolic blood 2020-09-09 18:57:00 73 mm[Hg] [facility] Medicine Heart rate 2020-09-09 18:57:00 89 /min [facility] Body temperature 2020-09-09 18:57:00 36.39 [facility] Respiratory rate 2020-09-09 18:57:00 16 /min [facility] Body height 2020-09-09 18:57:00 188 cm [facility] Body weight 2020-09-09 18:57:00 91.627 kg [facility] BMI 2020-09-09 18:57:00 25.94 kg/m2 [facility] Systolic blood 2020-09-09 18:57:00 120 mm[Hg] [facility] Diastolic blood 2020-09-09 18:57:00 73 mm[Hg] [facility] Medicine Heart rate 2020-09-09 18:57:00 89 /min [facility] Body temperature 2020-09-09 18:57:00 36.39 [facility] Respiratory rate 2020-09-09 18:57:00 16 /min [facility] Body height 2020-09-09 18:57:00 188 cm [facility] Body weight 2020-09-09 18:57:00 91.627 kg [facility] BMI 2020-09-09 18:57:00 25.94 kg/m2 [facility] WEIGHT 2020-07-25 19:11:00 95 kg WEIGHT 2020-07-25 15:25:00 98 kg Systolic blood 2020-07-23 20:13:00 146 mm[Hg] [facility] Diastolic blood 2020-07-23 20:13:00 84 mm[Hg] [facility] Medicine Heart rate 2020-07-23 20:13:00 90 /min [facility] Body temperature 2020-07-23 20:13:00 36.67 [facility] Body height 2020-07-23 20:13:00 188 cm [facility] Body weight 2020-07-23 20:13:00 95.709 kg [facility] BMI 2020-07-23 20:13:00 27.09 kg/m2 [facility] Systolic blood 2020-07-23 20:13:00 146 mm[Hg] [facility] Diastolic blood 2020-07-23 20:13:00 84 mm[Hg] [facility] pressure Medicine Heart rate 2020-07-23 20:13:00 90 /min [facility] Body temperature 2020-07-23 20:13:00 36.67 [facility] Body height 2020-07-23 20:13:00 188 cm [facility] Body weight 2020-07-23 20:13:00 95.709 kg [facility] BMI 2020-07-23 20:13:00 27.09 kg/m2 [facility] Systolic blood 2020-06-12 19:53:00 136 mm[Hg] [facility] Diastolic blood 2020-06-12 19:53:00 85 mm[Hg] [facility] Medicine Heart rate 2020-06-12 19:53:00 83 /min [facility] Respiratory rate 2020-06-12 19:53:00 16 /min [facility] Body height 2020-06-12 19:53:00 188 cm [facility] Body weight 2020-06-12 19:53:00 93.895 kg [facility] BMI 2020-06-12 19:53:00 26.58 [facility] Oxygen saturation in 2020-06-12 19:53:00 98 /min [facility] Arterial blood by Medicine Pulse oximetry Systolic blood 2020-06-12 19:53:00 136 mm[Hg] [facility] Medicine Diastolic blood 2020-06-12 19:53:00 85 mm[Hg] [facility] Medicine Heart rate 2020-06-12 19:53:00 83 /min [facility] Respiratory rate 2020-06-12 19:53:00 16 /min [facility] Body height 2020-06-12 19:53:00 188 cm [facility] Body weight 2020-06-12 19:53:00 93.895 kg [facility] BMI 2020-06-12 19:53:00 26.58 [facility] in 2020-06-12 19:53:00 98 /min [facility] of Arterial blood by Medicine Pulse oximetry Systolic blood 2020-03-26 20:46:00 129 mm[Hg] [facility] pressure Medicine Diastolic blood 2020-03-26 20:46:00 77 mm[Hg] [facility] Medicine Heart rate 2020-03-26 20:46:00 81 /min [facility] Body temperature 2020-03-26 20:46:00 36.94 [facility] Body height 2020-03-26 20:46:00 188 cm [facility] Body weight 2020-03-26 20:46:00 97.07 kg [facility] BMI 2020-03-26 20:46:00 27.48 kg/m2 [facility] Systolic blood 2020-03-26 20:46:00 129 mm[Hg] [facility] Medicine Diastolic blood 2020-03-26 20:46:00 77 mm[Hg] [facility] Medicine Heart rate 2020-03-26 20:46:00 81 /min [facility] Body temperature 2020-03-26 20:46:00 36.94 [facility] Body height 2020-03-26 20:46:00 188 cm [facility] Body weight 2020-03-26 20:46:00 97.07 kg [facility] BMI 2020-03-26 20:46:00 27.48 kg/m2 [facility] Systolic blood 2020-03-13 19:34:00 149 mm[Hg] [facility] Medicine Diastolic blood 2020-03-13 19:34:00 89 mm[Hg] [facility] Medicine Heart rate 2020-03-13 19:34:00 82 /min [facility] Respiratory rate 2020-03-13 19:34:00 16 /min [facility] Body height 2020-03-13 19:34:00 188 cm [facility] Body weight 2020-03-13 19:34:00 94.802 kg [facility] BMI 2020-03-13 19:34:00 26.83 kg/m2 [facility] Systolic blood 2020-03-13 19:34:00 149 mm[Hg] [facility] Diastolic blood 2020-03-13 19:34:00 89 mm[Hg] [facility] Medicine Heart rate 2020-03-13 19:34:00 82 /min [facility] Respiratory rate 2020-03-13 19:34:00 16 /min [facility] Body height 2020-03-13 19:34:00 188 cm [facility] Body weight 2020-03-13 19:34:00 94.802 kg [facility] BMI 2020-03-13 19:34:00 26.83 kg/m2 [facility] Systolic blood 2019-12-06 20:13:00 155 mm[Hg] [facility] pressure Medicine Diastolic blood 2019-12-06 20:13:00 85 mm[Hg] [facility] Medicine Heart rate 2019-12-06 20:13:00 92 /min [facility] Body temperature 2019-12-06 20:13:00 36.67 [facility] Respiratory rate 2019-12-06 20:13:00 16 /min [facility] Body height 2019-12-06 20:13:00 188 cm [facility] Body weight 2019-12-06 20:13:00 92.987 kg [facility] BMI 2019-12-06 20:13:00 26.32 kg/m2 [facility] Systolic blood 2019-12-06 20:13:00 155 mm[Hg] [facility] pressure Medicine Diastolic blood 2019-12-06 20:13:00 85 mm[Hg] [facility] pressure Medicine Heart rate 2019-12-06 20:13:00 92 /min [facility] Body temperature 2019-12-06 20:13:00 36.67 [facility] Respiratory rate 2019-12-06 20:13:00 16 /min [facility] Body height 2019-12-06 20:13:00 188 cm [facility] Body weight 2019-12-06 20:13:00 92.987 kg [facility] BMI 2019-12-06 20:13:00 26.32 kg/m2 [facility] Systolic blood 2019-11-26 20:19:00 154 mm[Hg] [facility] pressure Medicine Diastolic blood 2019-11-26 20:19:00 73 mm[Hg] [facility] pressure Medicine Heart rate 2019-11-26 20:19:00 93 /min [facility] Body temperature 2019-11-26 20:19:00 37 [facility] Respiratory rate 2019-11-26 20:19:00 22 /min [facility] Body height 2019-11-26 20:19:00 188 cm [facility] Body weight 2019-11-26 20:19:00 98.431 kg [facility] BMI 2019-11-26 20:19:00 27.86 kg/m2 [facility] Systolic blood 2019-11-26 20:19:00 154 mm[Hg] [facility] Diastolic blood 2019-11-26 20:19:00 73 mm[Hg] [facility] Medicine Heart rate 2019-11-26 20:19:00 93 /min [facility] Body temperature 2019-11-26 20:19:00 37 [facility] Respiratory rate 2019-11-26 20:19:00 22 /min [facility] Body height 2019-11-26 20:19:00 188 cm [facility] Body weight 2019-11-26 20:19:00 98.431 kg [facility] BMI 2019-11-26 20:19:00 27.86 kg/m2 [facility] Systolic blood 2019-09-19 21:22:00 163 mm[Hg] [facility] Medicine Diastolic blood 2019-09-19 21:22:00 89 mm[Hg] [facility] Medicine Heart rate 2019-09-19 21:22:00 94 /min [facility] Body temperature 2019-09-19 21:22:00 36.78 [facility] Body height 2019-09-19 21:22:00 188 cm [facility] Body weight 2019-09-19 21:22:00 97.523 kg [facility] BMI 2019-09-19 21:22:00 27.60 kg/m2 [facility] Systolic blood 2019-09-19 21:22:00 163 mm[Hg] [facility] Diastolic blood 2019-09-19 21:22:00 89 mm[Hg] [facility] pressure Medicine Heart rate 2019-09-19 21:22:00 94 /min [facility] Body temperature 2019-09-19 21:22:00 36.78 [facility] Body height 2019-09-19 21:22:00 188 cm [facility] Body weight 2019-09-19 21:22:00 97.523 kg [facility] BMI 2019-09-19 21:22:00 27.60 kg/m2 [facility] Procedures Procedure Date / Time Performing Clinician Source Performed PREPARE PACKED RBC 2021-08-27 13:46:17 Diya Rolon [facility] ABORH CONFIRMATION (LAB 2021-08-27 13:14:00 Diya Rolon [facility] ONLY) [facility] [place] [facility] ABO GROUPING 2021-08-27 12:25:00 Diya Rolon [facility] COVID-19 (ID NOW RAPID 2021-08-27 11:56:00 Diya Rolon [facility] TESTING) [facility] COMP. METABOLIC PANEL 2021-08-27 11:26:00 Diya Rolon [facility] ([id number]) [facility] XR CHEST 1 VW 2021-08-27 11:12:00 Diya Rolon [facility] LIPASE 2021-08-27 10:57:00 Diya Rolno [facility] TROPONIN I 2021-08-27 10:57:00 Diya Rolon [facility] CBC WITH DIFF 2021-08-27 10:57:00 Diya Rolon [facility] PROTHROMBIN TIME / INR 2021-08-27 10:57:00 Diya Rolon [facility] ACTIVATED PARTIAL THRMPLAS 2021-08-27 10:57:00 [facility] 2021-08-27 10:57:00 Diya Rolon [facility] NOTICE OF PRIVACY PRACTICES 2021-08-27 10:38:00 Doctor Gino nj [facility] Name [facility] [place] CONSENT/REFUSAL FOR 2021-08-27 10:37:13 Roselia Alva [facility] DIAGNOSIS AND TREATMENT [facility] AUTHORIZATION FOR RELEASE 2021-08-13 05:01:00 Doctor Zach [facility] AUTHORIZATION FOR RELEASE 2021-07-31 05:01:00 Doctor Zach [facility] Name [facility] [place] CT CERVICAL SPINE WO 2021-06-13 22:02:07 Justus Kirkpatrick [facility] CONTRAST [facility] CT HEAD WO CONTRAST 2021-06-13 22:02:07 [facility]USAL FOR 2021-06-13 21:34:37 Roselia Alva [facility] DIAGNOSIS AND TREATMENT [facility] ELECTROCARDIOGRAM COMPLETE 2020-06-12 20:33:54 Sara Reynaga [facility] Plan of Care Planned Activity Planned Date Details Comments Source Future Scheduled 2020-11-24 COVID-19 Vaccine (1) [facility] Test 08:10:33 [code = COVID-19 of Medicine Vaccine (1)] Future Scheduled 2020-11-24 TETANUS SHOT (ADULT) [facility] Test 08:10:33 [code = TETANUS SHOT of Medi cine (ADULT)] Future Scheduled 2020-11-24 BMI FOLLOW UP PLAN [facility] Test 08:10:33 [code = BMI FOLLOW UP of Med icine PLAN] Future Scheduled 2020-11-24 Hepatitis C screening [facility] Test 08:10:33 (procedure) [code = of Medic ine 867584508] Future Scheduled 2020-11-24 Human immunodeficiency [facility] Test 08:10:33 virus screening of Medicine (procedure) [code = 627348157] Future Scheduled 2020-11-24 ZOSTER VACCINE (1 of 2) [facility] Test 08:10:33 [code = ZOSTER VACCINE of Me dicine (1 of 2)] Future Scheduled 2020-11-24 MEDICARE AWV (Initial) [facility] Test 08:10:33 [code = MEDICARE AWV of Medi cine (Initial)] Future Scheduled 2020-11-24 FLU VACCINE > 6 MONTHS [facility] Test 08:10:33 [code = FLU VACCINE > 6 of M edicine MONTHS] Future Scheduled 2020-11-24 Screening for malignant [facility] Test 08:10:33 neoplasm of colon of Medicin e (procedure) [code = 070552829] Future Scheduled 2020-09-18 COVID-19 Vaccine (1) [facility] [employer] Test 16:08:01 [code = COVID-19 of Medicine Vaccine (1)] Future Scheduled 2020-09-18 TETANUS SHOT (ADULT) [employer] Test 16:08:01 [code = TETANUS SHOT of Medi cine (ADULT)] Future Scheduled 2020-09-18 BMI FOLLOW UP PLAN [employer] Test 16:08:01 [code = BMI FOLLOW UP of Med icine PLAN] Future Scheduled 2020-09-18 Hepatitis C screening [facility] Test 16:08:01 (procedure) [code = of Medic ine 288696915] Future Scheduled 2020-09-18 [facility]08[facility]01 virus screening of Medicine (procedure) [code = 338235194] Future Scheduled 2020-09-18 ZOSTER VACCINE (1 of 2) [facility] Test 16:08:01 [code = ZOSTER VACCINE of Me dicine (1 of 2)] Future Scheduled 2020-09-18 MEDICARE AWV (Initial) [facility] Test 16:08:01 [code = MEDICARE AWV of Medi cine (Initial)] Future Scheduled 2020-09-18 FLU VACCINE > 6 MONTHS [facility] Test 16:08:01 [code = FLU VACCINE > 6 of M edicine MONTHS] Future Scheduled 2020-09-18 Screening for malignant [facility] Test 16:08:01 neoplasm of colon of Medicin e (procedure) [code = 820944196] Future Scheduled 2020-09-15 TETANUS SHOT (ADULT) [employer] Test 14:51:20 [code = TETANUS SHOT of Medi cine (ADULT)] Future Scheduled 2020-09-15 COVID-19 Vaccine (1) [employer] Test 14:51:20 [code = COVID-19 of Medicine Vaccine (1)] Future Scheduled 2020-09-15 BMI FOLLOW UP PLAN [employer] Test 14:51:20 [code = BMI FOLLOW UP of Med icine PLAN] Future Scheduled 2020-09-15 Hepatitis C screening [facility] Test 14:51:20 (procedure) [code = of Medic ine 691337952] Future Scheduled 2020-09-15 Human immunodeficiency [facility] Test 14:51:20 virus screening of Medicine (procedure) [code = 186476540] Future Scheduled 2020-09-15 ZOSTER VACCINE (1 of 2) [facility] Test 14:51:20 [code = ZOSTER VACCINE of Me dicine (1 of 2)] Future Scheduled 2020-09-15 MEDICARE AWV (Initial) [facility] Test 14:51:20 [code = MEDICARE AWV of Medi cine (Initial)] Future Scheduled 2020-09-15 FLU VACCINE > 6 MONTHS [facility] 14:51:20 [code = FLU VACCINE > 6 of M edicine MONTHS] Future Scheduled 2020-09-15 Screening for malignant [facility] Test 14:51:20 neoplasm of colon of Medicin e (procedure) [code = 707722283] Diagnostic Test 2020-06-26 CT CHEST WO CONTRAST Expected: [facility] Pending 00:00:00 [code = 53008-8] 06/26/2020, of Medicine Expires: 10/24/2020 Diagnostic Test 2020-06-26 CT ABDOMEN PELVIS W WO Expected: [facility] Pending 00:00:00 CONTRAST [code = 06/26/2020, of Medicine 51868-3] Expires: 10/24/2020 Diagnostic Test 2020-06-12 MYOCARD PERFUSION - Expected: [facility] Pending 00:00:00 LEXISCAN [code = 13602] 06/12/2020, of M edicine Expires: 12/10/2021 Diagnostic Test 2020-06-12 ECHO, COMPLETE [code = Expected: [facility] Pending 00:00:00 [id number]] 06/12/2020, of Medicine Expires: 12/10/2020 Diagnostic Test 2019-10-03 CT CHEST ABDOMEN PELVIS [facility]: [facility]ending 00:00:00 WO CONTRAST [code = 10/03/2019, of Medic ine 71836] Expires: 04/20/2020 Future Scheduled COLON CANCER SCREENING: [facility] Test COLONOSCOPY [code = of Medic ine COLON CANCER SCREENING: COLONOSCOPY] Future Scheduled TETANUS SHOT (ADULT) [employer] Test [code = TETANUS SHOT of Medi cine (ADULT)] Future Scheduled BMI FOLLOW UP PLAN [employer] Test [code = BMI FOLLOW UP of Med icine PLAN] Future Scheduled HEPATITIS C SCREENING [facility] [employer] Test [code = HEPATITIS C of Medic ine SCREENING] Future Scheduled HIV SCREENING [code = [facility] [employer] [facility] HIV SCREENING] of Medicine Future Scheduled MEDICARE AWV (Initial) [facility] [employer] [facility] [code = MEDICARE AWV of Medi cine (Initial)] Future Scheduled FLU VACCINE > 6 MONTHS [employer] Test [code = FLU VACCINE > 6 of M edicine MONTHS] Future Scheduled COLON CANCER SCREENING: [facility] Test COLONOSCOPY [code = of Medic ine COLON CANCER SCREENING: COLONOSCOPY] Future Scheduled TETANUS SHOT (ADULT) [employer] Test [code = TETANUS SHOT of Medi cine (ADULT)] Future Scheduled BMI FOLLOW UP PLAN [employer] Test [code = BMI FOLLOW UP of Med icine PLAN] Future Scheduled HEPATITIS C SCREENING [employer] [employer] Test [code = HEPATITIS C of Medic ine SCREENING] Future Scheduled HIV SCREENING [code = [employer] [facility] HIV SCREENING] of Medicine Future Scheduled ZOSTER VACCINE (1 of 2) [employer] Test [code = ZOSTER VACCINE of Me dicine (1 of 2)] Future Scheduled MEDICARE IPPE (WELCOME [employer] [facility] TO MEDICARE) [code = of Medi cine MEDICARE IPPE (WELCOME TO MEDICARE)] Future Scheduled FLU VACCINE > 6 MONTHS [employer] Test [code = FLU VACCINE > 6 of M edicine MONTHS] Future Scheduled COLON CANCER SCREENING: [facility] Test COLONOSCOPY [code = of Medic ine COLON CANCER SCREENING: COLONOSCOPY] Future Scheduled TETANUS SHOT (ADULT) [employer] Test [code = TETANUS SHOT of Medi cine (ADULT)] Future Scheduled BMI FOLLOW UP PLAN [employer] Test [code = BMI FOLLOW UP of Med icine PLAN] Future Scheduled HEPATITIS C SCREENING [employer] [employer] Test [code = HEPATITIS C of Medic ine SCREENING] Future Scheduled HIV SCREENING [code = [employer] [facility] HIV SCREENING] of Medicine Future Scheduled ZOSTER VACCINE (1 of 2) [employer] Test [code = ZOSTER VACCINE of Me dicine (1 of 2)] Future Scheduled MEDICARE IPPE (WELCOME [employer] [facility] TO MEDICARE) [code = of Medi cine MEDICARE IPPE (WELCOME TO MEDICARE)] Future Scheduled FLU VACCINE > 6 MONTHS [employer] Test [code = FLU VACCINE > 6 of M edicine MONTHS] Future Scheduled COLON CANCER SCREENING: [facility] Test COLONOSCOPY [code = of Medic ine COLON CANCER SCREENING: COLONOSCOPY] Future Scheduled COVID-19 Vaccine [facility] Test Evaluation [code = of Medici ne COVID-19 Vaccine Evaluation] Future Scheduled TETANUS SHOT (ADULT) [employer] Test [code = TETANUS SHOT of Medi cine (ADULT)] Future Scheduled BMI FOLLOW UP PLAN [employer] Test [code = BMI FOLLOW UP of Med icine PLAN] Future Scheduled HEPATITIS C SCREENING [employer] Test [code = HEPATITIS C of Medic ine SCREENING] Future Scheduled HIV SCREENING [code = [employer] [facility] HIV SCREENING] of Medicine Future Scheduled ZOSTER VACCINE (1 of 2) [employer] Test [code = ZOSTER VACCINE of Me dicine (1 of 2)] Future Scheduled MEDICARE AWV (Initial) [employer] Test [code = MEDICARE AWV of Medi cine (Initial)] Future Scheduled FLU VACCINE > 6 MONTHS [employer] Test [code = FLU VACCINE > 6 of M edicine MONTHS] Future Scheduled VITAMIN B12 [code = Ordered: [employer] [facility] 2132-9] 07/23/2020 of Medicine Future Scheduled FOLATE [code = 2284-8] Ordered: [employer] [facility] 07/23/2020 of Medicine Future Scheduled FERRITIN [code = Ordered: [facility] Test 53958-8] 07/23/2020 of Medicine Future Scheduled Screening for malignant [facility] Test neoplasm of colon of Medicin e (procedure) [code = 821794417] Future Scheduled TETANUS SHOT (ADULT) [employer] Test [code = TETANUS SHOT of Medi cine (ADULT)] Future Scheduled COVID-19 Vaccine (1) [employer] Test [code = COVID-19 of Medicine Vaccine (1)] Future Scheduled BMI FOLLOW UP PLAN [employer] Test [code = BMI FOLLOW UP of Med icine PLAN] Future Scheduled Hepatitis C screening [employer] [facility] (procedure) [code = of Medic ine 943474035] Future Scheduled Human immunodeficiency [employer] [facility] virus screening of Medicine (procedure) [code = 787378407] Future Scheduled ZOSTER VACCINE (1 of 2) [facility] Test [code = ZOSTER VACCINE of Me dicine (1 of 2)] Future Scheduled MEDICARE AWV (Initial) [employer] Test [code = MEDICARE AWV of Medi cine (Initial)] Future Scheduled FLU VACCINE > 6 MONTHS [employer] Test [code = FLU VACCINE > 6 of M edicine MONTHS] Future Scheduled TETANUS SHOT (ADULT) [employer] Test [code = TETANUS SHOT of Medi cine (ADULT)] Future Scheduled COVID-19 Vaccine (1) [employer] Test [code = COVID-19 of Medicine Vaccine (1)] Future Scheduled BMI FOLLOW UP PLAN [employer] Test [code = BMI FOLLOW UP of Med icine PLAN] Future Scheduled Hepatitis C screening [employer] [facility] (procedure) [code = of Medic ine 488151357] Future Scheduled Human immunodeficiency [employer] [facility] virus screening of Medicine (procedure) [code = 373350172] Future Scheduled ZOSTER VACCINE (1 of 2) [facility] Test [code = ZOSTER VACCINE of Me dicine (1 of 2)] Future Scheduled MEDICARE AWV (Initial) [employer] Test [code = MEDICARE AWV of Medi cine (Initial)] Future Scheduled FLU VACCINE > 6 MONTHS [employer] Test [code = FLU VACCINE > 6 of M edicine MONTHS] Future Scheduled Screening for malignant [facility] Test neoplasm of colon of Medicin e (procedure) [code = 285538199] Future Scheduled COLON CANCER SCREENING: [facility] Test COLONOSCOPY [code = of Medic ine COLON CANCER SCREENING: COLONOSCOPY] Future Scheduled TETANUS SHOT (ADULT) [employer] Test [code = TETANUS SHOT of Medi cine (ADULT)] Future Scheduled BMI FOLLOW UP PLAN [employer] Test [code = BMI FOLLOW UP of Med icine PLAN] Future Scheduled HEPATITIS C SCREENING [employer] Test [code = HEPATITIS C of Medic ine SCREENING] Future Scheduled HIV SCREENING [code = [employer] [facility] HIV SCREENING] of Medicine Future Scheduled MEDICARE AWV (Initial) [employer] Test [code = MEDICARE AWV of Medi cine (Initial)] Future Scheduled FLU VACCINE > 6 MONTHS [employer] Test [code = FLU VACCINE > 6 of M edicine MONTHS] Future Scheduled COLON CANCER SCREENING: [facility] Test COLONOSCOPY [code = of Medic ine COLON CANCER SCREENING: COLONOSCOPY] Future Scheduled TETANUS SHOT (ADULT) [employer] Test [code = TETANUS SHOT of Medi cine (ADULT)] Future Scheduled BMI FOLLOW UP PLAN [employer] Test [code = BMI FOLLOW UP of Med icine PLAN] Future Scheduled HEPATITIS C SCREENING [employer] [facility] [code = HEPATITIS C of Medic ine SCREENING] Future Scheduled HIV SCREENING [code = [employer] HIV SCREENING] of Medicine Future Scheduled MEDICARE AWV (Initial) [employer] [code = MEDICARE AWV of Medi cine (Initial)] Future Scheduled FLU VACCINE > 6 MONTHS [employer] [code = FLU VACCINE > 6 of M edicine MONTHS] Encounters Start End Encounter Admission Attending Care Care Encounter Source Date/Time Date/Time Type Type Clinicians Facility Department ID 2020-07-23 Inpatient KALANI MOTTA [facility] [id number] SLEH 18:00:00 YAZAN 2021-09-01 2021-09-[address] [facility] [id number] SLEH 13:57:47 23:59:00 BHAMIDIPATI 2021-09-01 2021-09-01 Outpatient EL KALANI [facility] [id number] SLEH 13:57:36 13:56:00 BHAMIDIPATI 2021-09-01 2021-09-[address] [facility] [id number] SLE 10:43:02 10:43:02 2021-09-01 2021-09-01 Outpatient [facility] [id number] SLE 10:42:51 10:42:51 2021-09-01 2021-09-01 Outpatient [facility] [id number] SLE 10:42:15 10:42:15 2021-09-01 2021-09-[address] [facility] [id number] SLE 10:39:54 10:39:54 2021-08-27 2021-08-29 Inpatient ER KALANI CLARKE Card[facility] 20 [id number] SLEH 10:42:00 14:16:00 SIDRA 2021-08-27 2021-08-27 Emergency [facility] [id number] Univers 05:49:00 09:49:00 DIYA cedeno [facility] 2021-08-27 2021-08-27 Emergency [facility] [id number] Univers 05:49:00 09:49:00 Diya WALKER 350.1.13.10 i [facility] 4.2.7.2.686 [facility] [id number] [address] 2021-08-27 2021-08-27 Outpatient EL MINAL, SLEH SLEH [id number] SLEH 00:00:00 00:00:00 AMIDIPATI 2021-08-27 2021-08-27 Outpatient EL SLEH [facility] [id number] [facility]H 00:00:00 00:00:00 2021-08-27 2021-08-27 Outpatient EL MINAL, SLEH SLEH [id number] SLEH 00:00:00 00:00:00 BHAMIDIPATI 2021-08-27 2021-08-27 Outpatient EL MINAL, SLEH SLEH [id number] SLEH 00:00:00 00:00:00 AMIDIPA 2021-08-27 2021-08-27 Outpatient EL MINAL, SLEH SLE [id number] SLEH 00:00:00 00:00:00 [facility] 2021-08-13 2021-08-13 Orders Doctor SARA [id number] [id number] 00:00:00 00:00:00 Only Unassigned, GADIEL 350.1.13.10 ity of [place] [facility] 4.2.7.2.686 Naveen as [id number] [address] 2021-07-31 2021-07-31 Orders Doctor SARA 1.2.840.114 [id number] 00:00:00 00:00:00 Only Unassigned, GADIEL 350.1.13.10 ity of [place] [facility] 4.2.7.2.686 Naveen as [id number] [address] 2021-06-13 2021-06-13 Emergency Justus Kirkpatrick [facility] 1.2.840.114 [id number] Univers 15:44:00 16:53:00 T DENISE 350.1.13.10 i ty [facility] 4.2.7.2.686 [facility] [id number] [address] 2021-06-13 2021-06-13 Emergency X JUSTUS KIRKPATRICK [facility] ERT [id number] Univers 15:44:00 16:53:00 ity of [facility] 2020-12-30 2020-12-30 [place] [id number] Devoted 08:00:00 08:00:00 0824 Medica l Group 2020-09-18 2020-09-18 Office ERNESTINA VELARDE BCM 1.2.840.114 [id number] [facility] 15:54:57 17:38:09 Visit AMBULATOR 350.1.13.21 College Y 0.2.7.2.686 of [id number] [facility] 335 e 2020-09-16 2020-09-16 Outpatient EL SLEH SLEH [id number] SLEH 00:00:00 00:00:00 2020-09-15 2020-09-15 Office Kalen Hurtado [facility] 1.2.840.114 [id number] [facility] 14:48:22 15:18:22 Visit Silviano AMBULATOR 350.1.13.21 College Y 0.2.7.2.686 of [id number] [facility] 380 e 2020-09-15 2020-09-15 Outpatient EL SLEH SLE [id number] SLEH 00:00:00 00:00:00 2020-09-09 2020-09-09 Office KIRIT CalderonFernando 1.2.840.114 [id number] [facility] 13:42:54 14:02:54 Visit Chandra Shahnaz 350.1.13.21 Co llege James 0.2.7.2.686 of [id number] [facility] 530 e 2020-09-09 2020-09-09 Office KIRIT CalderonFernando 1.2.840.114 [id number] 13:42:54 14:02:54 Visit Chandra Shahnaz 350.1.13.21 James 0.2.7.2.686 [id number] 530 2020-07-23 2020-07-23 Office KIRIT CalderonC 1.2.840.114 [id number] 14:58:20 15:33:17 Visit Chandra Shahnaz 350.1.13.21 James 0.2.7.2.686 [id number] 530 2020-07-23 2020-07-23 Office Hector, [facility] 1.2.840.114 [id number] [facility] 14:58:20 15:33:17 Visit Chandra Shahnaz 350.1.13.21 Co llege James 0.2.7.2.686 of [id number] [facility] 530 e 2020-06-12 2020-06-12 Office Ronnell, BCDelma 1.2.840.114 [id number] 13:43:36 15:53:35 Visit Sara Meyers AMBULATOR 350.1.13.21 Y 0.2.7.2.686 [id number] 375 2020-06-12 2020-06-12 Office Ronnell, BCM 1.2.840.[id number] [place] [address] 13:43:36 15:53:35 Visit Sara Meyers AMBULATOR 350.1.13.21 College Y 0.2.7.2.686 of [id number] [facility] 375 e 2020-06-04 2020-06-04 Office Ronnell, [facility] 1.2.840.[id number] [place] [address] 11:30:00 12:00:00 Visit Sara Meyers AMBULATOR 350.1.13.21 College Y 0.2.7.2.686 of [id number] [facility] 375 e 2020-03-26 2020-03-26 Office Hector, [facility] 1.2.840.114 [id number] 14:34:45 16:13:29 Visit Chandra WaiteNair 350.1.13.21 James 0.2.7.2.686 [id number] 530 2020-03-26 2020-03-26 Office Hector, [facility] 1.2.840.[id number] [place] [address] 14:34:45 16:13:29 Visit Chandra Shahnaz 350.1.13.21 Co llege James 0.2.7.2.686 of [id number] [facility] 530 e 2020-03-13 2020-03-13 Office Kalen Hurtado BC 1.2.840.114 [id number] 13:22:23 13:52:23 Visit Silviano AMBULATOR 350.1.13.21 Y 0.2.7.2.686 [id number] 380 2020-03-13 2020-03-13 Office Kalen Hurtado BCDelma 1.2.840.114 [id number] [facility] 13:22:23 13:52:23 Visit Silviano AMBULATOR 350.1.13.21 College Y 0.2.7.2.686 of [id number] [facility] 380 e 2019-12-06 2019-12-06 Office Breanna Kalen BCM 1.2.840.114 [id number] 15:08:57 15:38:57 Visit Silviano AMBULATOR 350.1.13.21 Y 0.2.7.2.686 [id number] [facility] 2019-12-06 2019-12-06 Office Breanna, Kalen BCM 1.2.840.114 [id number] [facility] 15:08:57 15:38:57 Visit Silviano AMBULATOR 350.1.13.21 College Y 0.2.7.2.686 of [id number] [facility] 380 e 2019-11-26 2019-11-26 Office Kalen Hurtado ESTRELLAM 1.2.840.114 [id number] 11:32:45 16:18:07 Visit Silviano AMBULATOR 350.1.13.21 Y 0.2.7.2.686 [id number] [facility] 2019-11-26 2019-11-26 Office Kalen Hurtado BCM 1.2.840.114 [id number] [facility] 11:32:45 16:18:07 Visit Silviano AMBULATOR 350.1.13.21 College Y 0.2.7.2.686 of [id number] [facility] 380 e 2019-11-15 2019-11-15 Outpatient CALDERON, SLEH SLEH [id number] SLEH 00:00:00 00:00:00 CHANDRA 2019-11-15 2019-11-15 Outpatient EL CALDERON, SLEH SLEH [id number] SLEH 00:00:00 00:00:00 CHANDRA 2019-11-12 2019-11-12 Outpatient EL CALDERON, SLEH SLEH [id number] SLEH 00:00:00 00:00:00 CHANDRA 2019-11-12 2019-11-12 Outpatient EL CALDERON, SLEH SLEH [id number] SLEH 00:00:00 00:00:00 CHANDRA 2019-11-01 2019-11-01 Outpatient EL CALDERON, SLEH SLEH [id number] SLEH 00:00:00 00:00:00 CHANDRA 2019-11-01 2019-11-01 Outpatient CALDERON, SLEH SLEH [id number] SLEH 00:00:00 00:00:00 CHANDRA 2019-10-16 2019-10-16 Outpatient CALDERON, SLEH SLEH [id number] SLEH 00:00:00 00:00:00 CHANDRA 2019-10-16 2019-10-16 Outpatient EL CALDERON, SLEH SLEH [id number] SLEH 00:00:00 00:00:00 CHANDRA 2019-10-04 2019-10-04 Outpatient CALDERON, SLEH SLEH [id number] SLEH 00:00:00 00:00:00 CHANDRA 2019-10-04 2019-10-04 Outpatient EL CALDERON, SLEH SLEH [id number] SLEH 00:00:00 00:00:00 CHANDRA 2019-09-20 2019-09-20 Outpatient CALDERON, SLEH SLEH [id number] SLEH 00:00:00 00:00:00 CHANDRA 2019-09-20 2019-09-20 Outpatient EL CALDERON, SLEH SLEH [id number] SLEH 00:00:00 00:00:00 CHANDRA 2019-09-19 2019-09-19 Office Calderon, [facility] 1.2.840.114 [id number] 16:13:39 16:30:34 Visit Chandra Shahnaz 350.1.13.21 James 0.2.7.2.686 [id number] 2019-09-19 2019-09-19 Office Calderon, [facility] 1.2.840.[id number] [place] [address] 16:13:39 16:30:34 Visit Chandra Shahnaz 350.1.13.21 Co llege James 0.2.7.2.686 of [id number] [place] [address] e Results Test Description Test Time Test Comments Results Result [facility] e Comments U/S, PELVIS, WITH 2021-09-01 Reason for DOPPLER 15:: Exam:->assess iliac vessels [facility] for renal [facility] transplant CENTERName: ASHIA ANDREA : 1955 Sex: M FINAL REPORT TECHNIQUE: Grayscale, color Doppler, and spectral Doppler ultrasound of the distal aorta and bilateral iliac arteries. INDICATION: Assess iliac vessels for renal transplant. COMPARISON: None. FINDINGS: The distal abdominal aorta is patent and measures 1.6 cm. The common iliac arteries are patent and measure 1 cm on the right and 0.9 cm on the left.The external iliac arteries are patent and measure 0.9 cm on the right and 1.1 cm on the left.The internal iliac arteries were nonvisualized. Normal velocities and waveforms in the distal aorta and visualized bilateral iliac arteries. Bilateral common and external iliac veins are patent. IMPRESSION:Unremarkabl e Doppler ultrasound of the iliac vessels bilaterally. Signed: Lois Ribera [facility] Verified Date/Time: 09/01/2021 15:26:03 U/S, ABDOMINAL, 2021-09-01 Reason for COMPLETE 15:: Exam:->Kidney transplant [facility] evaluation; [facility] comment on CENTERName: [facility], number of renal ASHIA VIDAL cysts on each : 1955 side to meet Sex: criteria for M Acquired Cystic Kidney Disease FINAL REPORT TECHNIQUE: Grayscale ultrasound of the abdomen. INDICATION: Kidney transplant evaluation; comment on number of renal cysts on each side to meet criteria for Acquired Cystic Kidney Disease COMPARISON: Noncontrast CT 11/15/2019. FINDINGS: MIDLINE VASCULATURE: The visualized inferior vena cava is patent. Portal vein is patent and measures 1.2 cm in diameter. The maximum visualized aortic diameter is 2.4 cm. LIVER: The liver is normal in size and echogenicity with smooth contour. The liver measures 18.9 cm in length. No focal lesions. BILIARY:Gallbladder: No gallstones or sludge. No gallbladder wall thickening, pericholecystic fluid, or distention. Negative sonographic Sethi sign.Common bile duct measures 0.5 cm, within normal limits. No intrahepatic biliary ductal dilatation. PANCREAS: Incompletely visualized due to overlying bowel gas. SPLEEN: No splenomegaly. The spleen measures 8.1 cm in length. PERITONEUM: No free fluid. KIDNEYS: There is increased echogenicity of the bilateral [place] kidneys. The kidneys are normal in size. No hydronephrosis. No sonographically evident solid mass lesion. The right kidney measures 11.1 cm in length. The left kidney measures 10.4 cm in length.There are numerous cysts (see greater than 10) in the bilateral kidneys. The largest in the right kidney measures 4.2 cm in the lower pole. There is also a parapelvic cyst in the interpolar region measuring 2.6 cm. The largest on the left measures 2.7 cm in the interpolar region. 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 Signed: Lois Ribera MDReport Verified Date/Time: 09/01/2021 15:23:23 UE EXAM 2021-08-29 Surgical Pathology 12:40:29 Report Case: [id number] Authorizing Provider: Ji Dowell MD Collected: 08/28/2021 11:16 AM Ordering Location: [address] Received: 08/28/2021 04:08 PM Service Pathologist: Ezequiel Palomino MD Specimen: Biopsy, Gastric, random biopsies STOMACH, RANDOM, BIOPSY:- REACTIVE ANTRAL AND OXYNTIC MUCOSA WITH INACTIVE CHRONIC GASTRITIS- HELICOBACTER IS NOT SEEN Signing Pathologist Direct Phone Line: [phone] ally signed by Ezequiel Palomino MD on 08/29/2021 at 12:40 PMEndoscopy report was reviewed. [id number], unspecified typeA. Biopsy, Gastric.Received in formalin labeled with the patient's name, medical record number and "biopsy, gastric" and consists of 5 yellow-pinedo to red-pinedo tissue fragments measuring 0.3 to 0.5 cm in greatest dimension. The specimen is submitted in toto in cassette A1.ES, residentPerformed [facility], [facility], [address] [place] [address], [facility], [facility], [address] [place] [address], [facility], Department of [facility]ology, [address] [place] [address], HEMOGLOBIN AND HEMATOCRIT 2021-08-29 08:28:24 Test Item Value Reference Range Interpretation Comme nts HEMOGLOBIN (BEAKER) (test code = 410) 7.0 GM/DL 13.7-17.5 L HEMATOCRIT (BEAKER) (test code = 411) 21.8 % 40.1-51.0 L [employer] Driver ID - [id number]-COV2/RT-PCR ([facility])2021-08-29 01:40:55 Test Item Value Reference Range Interpretation Comments SARS-COV2/RT-PCR (test code = Negative Negative [id number]) Negative result for this test determines that [...] occur if a specimen is improperly collected, transported, or handled. A false negative result should be considered if patient's recent exposures or clinical presentation indicate that COVID-19 (SARS-CoV-2) is likely and diagnostic tests for other causes of illness are negative. Re-testing should be considered in cases of suspected false negatives.The limit of detection for this assay is 100 copies/mL.This SARS-CoV-2 test is a real-time RT_PCR test intended for the qualitative detection of nucleic acid from SARS-CoV-2 in a nasopharyngeal swab specimen collected from individuals suspected of COVID-19 by their healthcare provider.This test has not been Food and Drug Administration (FDA) cleared or approved. This is a modified version of an approved Emergency Use Authorization (EUA) and is in the process of review by the FDA. Once authorized by the FDA, the issued EUA will be e ffective until the declaration that circumstances exist justifying the authorization of the emergency use of in vitro diagnostic tests for detection and/or diagnosis of COVID-19 is terminated under Section 564(b)(2) of the Act or the EUA is revoked under Section 564(g) of the Act.Testing was performedusing the Blanco SARS-CoV-2 assay.Fact Sheet for Healthcare Providers:https://www.molecular.blanco/antonio/RT SARS-CoV-2 HCP Fact Sheet 51- 180639.pdfFact Sheet for Healthcare Patients:https://www.molecular.blanco/antonio/RT SARS-CoV-2 Patient Fact Sheet EN 51-066447S7.pdfPTH, [id number] 01:17:15 Test Item Value Reference Range Interpretation Comments PARATHYROID HORMONE INTACT 478.9 pg/mL 8.5-72.5 H (BEAKER) (test code = 577) [employer] ID - TAVIA MHEMOGLOBIN AND [id number] 00:56:51 Test Item Value Reference Range Interpretation Comments HEMOGLOBIN (BEAKER) (test code = 7.3 GM/DL 13.7-17.5 L 410) HEMATOCRIT (BEAKER) (test code = 23.0 % 40.1-51.0 L 411) [employer] ID - [id number] B SURFACE [id number] 19:59:22 Test Item Value Reference Range Interpretation Comments HEPATITIS B SURFACE ANTIGEN (2) Nonreactive Nonreactive (BEAKER) (test code = 2585) Specimen is considered negative for HBsAg.HEMOGLOBIN AND [id number] 18:47:46 Test Item Value Reference Range Interpretation Comments HEMOGLOBIN (BEAKER) (test code = 7.7 GM/DL 13.7-17.5 L 410) HEMATOCRIT (BEAKER) (test code = 25.1 % 40.1-51.0 L 411) [employer] Driver ID - [id number] 10:35:30 Test Item Value Reference Range Interpretation Comments PHOSPHORUS (BEAKER) (test code = 6.0 mg/dL 2.3-4.7 H 604) [employer] ID - TAVIA [id number] 03:09:01 Test Item Value Reference Range Interpretation Comments FERRITIN (BEAKER) (test code = 114.32 ng/mL 5.00-275.00 361) [employer] ID - TAVIA MVITAMIN B12 AND [id number] 03:09:01 Test Item Value Reference Range Interpretation Comments VITAMIN B12 933 pg/mL 213-816 H (BEAKER) (test code = 774) FOLATE (BEAKER) 14.50 ng/mL See_Comment [Automated message] (test code = 362) The system which generated this result transmitted ref erence range: >=7.00. The reference range was not used to interpr et this result as normal/abnormal . [employer] Driver ID - TAVIA MBASIC METABOLIC [id number] 02:39:25 Test Item Value Reference Range Interpretation Comments SODIUM (BEAKER) 137 meq/L 136-145 (test code = 381) POTASSIUM (BEAKER) 4.6 meq/L 3.5-5.1 (test code = 379) CHLORIDE (BEAKER) 99 meq/L 98-107 (test code = 382) CO2 (BEAKER) (test 27 meq/L 22-29 code = 355) BLOOD UREA NITROGEN 64 mg/dL 7-21 H (BEAKER) (test code = 354) CREATININE (BEAKER) 9.50 mg/dL 0.57-1.25 H (test code = 358) GLUCOSE RANDOM 110 mg/dL 70-105 H (BEAKER) (test code = 652) CALCIUM (BEAKER) 8.6 mg/dL 8.4-10.2 (test code = 697) EGFR (BEAKER) (test 7 mL/min/1.73 ESTIMAT ED GFR IS code = 1092) sq m NOT ACCURATE CREATININE CLEARANCE IN PREDICTING GLOMERULAR FILTRATION RATE . ESTIMATED GFR I S NOT APPLICABLE FOR DIALYSIS PATIEN TS. [employer] Driver ID - TAVIA EFFIE, TIBC, % SAT. (WITHOUT FERRITIN)2021-08-28 02:38:43 Test Item Value Reference Range Interpretation Comments IRON (BEAKER) (test code = 547) 53.0 ug/dL 40.0-160.0 TOTAL IRON BINDING CAPACITY 301 ug/dL 250-450 (BEAKER) (test code = 769) IRON % SATURATION (2) (BEAKER) 18 % 20-55 L (test code = 2590) [employer] Driver ID - TAVIA MCBC W/PLT COUNT & AUTO [id number] 02:36:15 Test Item Value Reference Range Interpretation Comments WHITE BLOOD CELL COUNT (BEAKER) 5.7 K/ L 3.5-10.5 (test code = 775) RED BLOOD CELL COUNT (BEAKER) 2.29 M/ L 4.63-6.08 L (test code = 761) HEMOGLOBIN (BEAKER) (test code = 6.2 GM/DL 13.7-17.5 L 410) HEMATOCRIT (BEAKER) (test code = 20.0 % 40.1-51.0 L 411) MEAN CORPUSCULAR VOLUME (BEAKER) 87.3 fL 79.0-92.2 (test code = 753) MEAN CORPUSCULAR HEMOGLOBIN 27.1 pg 25.7-32.2 (BEAKER) (test code = 751) MEAN CORPUSCULAR HEMOGLOBIN CONC 31.0 GM/DL 32.3-36.5 L (BEAKER) (test code = 752) RED CELL DISTRIBUTION WIDTH 16.0 % 11.6-14.4 H (BEAKER) (test code = 412) PLATELET COUNT (BEAKER) (test 252 K/CU MM 150-450 code = 756) MEAN PLATELET VOLUME (BEAKER) 11.1 fL 9.4-12.4 (test code = 754) NUCLEATED RED BLOOD CELLS 0 /100 WBC 0-0 (BEAKER) (test code = 413) NEUTROPHILS RELATIVE PERCENT 64 % (BEAKER) (test code = 429) LYMPHOCYTES RELATIVE PERCENT 18 % (BEAKER) (test code = 430) MONOCYTES RELATIVE PERCENT 16 % (BEAKER) (test code = 431) EOSINOPHILS RELATIVE PERCENT 2 % (BEAKER) (test code = 432) BASOPHILS RELATIVE PERCENT 0 % (BEAKER) (test code = 437) NEUTROPHILS ABSOLUTE COUNT 3.60 K/ L 1.78-5.38 (BEAKER) (test code = 670) LYMPHOCYTES ABSOLUTE COUNT 1.00 K/ L 1.32-3.57 L (BEAKER) (test code = 414) MONOCYTES ABSOLUTE COUNT (BEAKER) 0.91 K/ L 0.30-0.82 H (test code = 415) EOSINOPHILS ABSOLUTE COUNT 0.13 K/ L 0.04-0.54 (BEAKER) (test code = 416) BASOPHILS ABSOLUTE COUNT (BEAKER) 0.02 K/ L 0.01-0.08 (test code = 417) IMMATURE GRANULOCYTES-RELATIVE 0 % 0-1 PERCENT (BEAKER) (test code = 2801) HEMOGLOBIN AND [id number] 02:17:20 Test Item Value Reference Range Interpretation Comments HEMOGLOBIN (BEAKER) (test code = 6.2 GM/DL 13.7-17.5 L 410) HEMATOCRIT (BEAKER) (test code = 20.0 % 40.1-51.0 L 411) HIGH SENSITIVITY TROPONIN [id number] 18:35:46 Test Item Value Reference Range Interpretation Comments HIGH SENSITIVITY 42 pg/ml See_Comment H [Automated message] TROPONIN I (test code = The system which [id number]) generated this result transmitted ref erence range: <=35. Th e reference range was not used to int erpret this result as normal/abnormal . [employer] Tanker Driver ID - BSThe FISH HATCHERY MAN STAT High Sensitivity Troponin-I results should be used in conjunctionwith other diagnostic information such as ECG, clinical observations and information, and patient symptoms to aid in the diagnosis of HI.HIGH SENSITIVITY TROPONIN [id number] 14:24:44 Test Item Value Reference Range Interpretation Comments HIGH SENSITIVITY 42 pg/ml See_Comment H [Automated message] TROPONIN I (test code = The system which [id number]) generated this result transmitted ref erence range: <=35. Th e reference range was not used to int erpret this result as normal/abnormal . [employer] Tanker Driver ID - BSThe FISH HATCHERY MAN STAT High Sensitivity Troponin-I results should be used in conjunctionwith other diagnostic information such as ECG, clinical observations and information, and patient symptoms to aid in the diagnosis of HI.BASIC METABOLIC [id number] 14:18:04 Test Item Value Reference Range Interpretation Comments SODIUM (BEAKER) 136 meq/L 136-145 (test code = 381) POTASSIUM (BEAKER) 4.5 meq/L 3.5-5.1 (test code = 379) CHLORIDE (BEAKER) 97 meq/L 98-107 L (test code = 382) CO2 (BEAKER) (test 27 meq/L 22-29 code = 355) BLOOD UREA NITROGEN 56 mg/dL 7-21 H (BEAKER) (test code = 354) CREATININE (BEAKER) 8.57 mg/dL 0.57-1.25 H (test code = 358) GLUCOSE RANDOM 84 mg/dL 70-105 (BEAKER) (test code = 652) CALCIUM (BEAKER) 8.8 mg/dL 8.4-10.2 (test code = 697) EGFR (BEAKER) (test 8 mL/min/1.73 ESTIMAT ED GFR IS code = 1092) sq m NOT ACCURATE CREATININE CLEARANCE IN PREDICTING GLOMERULAR FILTRATION RATE . ESTIMATED GFR I S NOT APPLICABLE FOR DIALYSIS PATIEN TS. [employer] Tanker Driver ID - [id number] TIME/[id number] 14:09:01 Test Item Value Reference Range Interpretation Comments PROTIME (BEAKER) 15.5 seconds 11.9-14.2 H (test code = 759) INR (BEAKER) (test 1.25 See_Comment [Automat ed message] code = 370) The system [employer] generated this result transmitted ref erence range: <=5.90. The reference range was not used to int erpret this result as normal/abnormal . RECOMMENDED COUMADIN/WARFARIN INR THERAPY RANGESSTANDARD DOSE: 2.0 - 3.0 Includes: PROPHYLAXIS forvenous thrombosis, systemic embolization; TREATMENT for venous thrombosis and/or pulmonary embolus.HIGH RISK: Target INR is 2.5-3.5 for patients with mechanical heart valves.CBC W/PLT COUNT & AUTO DIFFERENTIAL 2021-08-27 14:06:24 Test Item Value Reference Range Interpretation Comments WHITE BLOOD CELL COUNT (BEAKER) 6.3 K/ L 3.5-10.5 (test code = 775) RED BLOOD CELL COUNT (BEAKER) 2.21 M/ L 4.63-6.08 L (test code = 761) HEMOGLOBIN (BEAKER) (test code = 5.8 GM/DL 13.7-17.5 LL 410) HEMATOCRIT (BEAKER) (test code = 19.9 % 40.1-51.0 L 411) MEAN CORPUSCULAR VOLUME (BEAKER) 90.0 fL 79.0-92.2 (test code = 753) MEAN CORPUSCULAR HEMOGLOBIN 26.2 pg 25.7-32.2 (BEAKER) (test code = 751) MEAN CORPUSCULAR HEMOGLOBIN CONC 29.1 GM/DL 32.3-36.5 L (BEAKER) (test code = 752) RED CELL DISTRIBUTION WIDTH 16.1 % 11.6-14.4 H (BEAKER) (test code = 412) PLATELET COUNT (BEAKER) (test 258 K/CU MM 150-450 code = 756) MEAN PLATELET VOLUME (BEAKER) 10.9 fL 9.4-12.4 (test code = 754) NUCLEATED RED BLOOD CELLS 0 /100 WBC 0-0 (BEAKER) (test code = 413) NEUTROPHILS RELATIVE PERCENT 74 % (BEAKER) (test code = 429) LYMPHOCYTES RELATIVE PERCENT 11 % (BEAKER) (test code = 430) MONOCYTES RELATIVE PERCENT 13 % (BEAKER) (test code = 431) EOSINOPHILS RELATIVE PERCENT 2 % (BEAKER) (test code = 432) BASOPHILS RELATIVE PERCENT 0 % (BEAKER) (test code = 437) NEUTROPHILS ABSOLUTE COUNT 4.64 K/ L 1.78-5.38 (BEAKER) (test code = 670) LYMPHOCYTES ABSOLUTE COUNT 0.70 K/ L 1.32-3.57 L (BEAKER) (test code = 414) MONOCYTES ABSOLUTE COUNT (BEAKER) 0.83 K/ L 0.30-0.82 H (test code = 415) EOSINOPHILS ABSOLUTE COUNT 0.10 K/ L 0.04-0.54 (BEAKER) (test code = 416) BASOPHILS ABSOLUTE COUNT (BEAKER) 0.02 K/ L 0.01-0.08 (test code = 417) IMMATURE GRANULOCYTES-RELATIVE 0 % 0-1 PERCENT (BEAKER) (test code = 2801) Type and Screen - ONCE [id number] 13:36:51 Test Item Value Reference Range Interpretation Comments ABO & RH (test code B Positive Performe d at [facility] = 20) Laboratory Serv [facility] [place], [place] [address]Toll Free: [phone] A No. [id number] IAT (test code = Negative Performed a t [facility] 1185) Laboratory [facility] [place], [place] [address]Toll Free: [phone] A No. [id number] [facility] (Lab Only)2021-08-27 13:35:31 Test Item Value Reference Range Interpretation Comments ABO & RH (test code B Positive Performe d at [facility] = 20) Laboratory [facility] [place], [place] [address]Toll Free: [phone] A No. [id number] [facility]AL [id number] 11:54:59 Test Item Value Reference Range Interpretation Comments NT-proBNP (test code 297997 pg/mL See_Comment H [Autom ated = 2530672269) message] The system which generated this result transmitted reference range : <=125. The reference range was not used to interpret this result as normal/abnormal . AJ (test code = AJ) Biotin has been reported to cause a negative bias, interpret results relative to patient's use of biotin. Lab Interpretation Abnormal (test code = 20165-2) [facility] MET[facility]OLIC PANEL (97520)2021-08-27 11:47:50 Test Item Value Reference Range Interpretation Comments NA (test code = 135 mmol/L 135-145 6462805601) K (test code = 5.0 mmol/L 3.5-5.0 2628708631) CL (test code = 97 mmol/L 98-108 L 4867889206) CO2 TOTAL (test code = 26 mmol/L 23-31 9602216207) AGAP (test code = 2-16 2983099841) BUN (test code = 52 mg/dL 7-23 H 2805932992) GLUCOSE (test code = 106 mg/dL 70-110 9301567969) CREATININE (test code = 7.30 mg/dL 0.60-1.25 H 4423252991) TOTAL BILI (test code = 0.4 mg/dL 0.1-1.2 1755100474) CALCIUM (test code = 7.8 mg/dL 8.6-10.6 L 6762042327) T PROTEIN (test code = 6.5 g/dL 6.3-8.2 9116446551) ALBUMIN (test code = 3.5 g/dL 3.5-5.0 6833763435) ALK PHOS (test code = 44 U/L 34-122 1610391145) ALTv (test code = 17 U/L 5-50 1742-6) AST(SGOT) (test code = 27 U/L 13-40 4684254354) eGFR (test code = mL/min/1.73m2 2856575443) AJ (test code = AJ) Association of Glomerular Filtration Rate (GFR) and Staging of Kidney Disease* + --+ --+ ------+| GFR (mL/min/1.73 m2) ?| With Kidney Damage ?| ?Without Kidney Damage+ --------+ --------+ +| ?>90 ?| ?Stage one ?| ? Normal ?+ ---+ ---+ -------+| ?60-89 ?| ?Stage two ?| ? Decreased GFR ? + --+ --+ ------+| ?30-59 ?| ?Stage three ?| ? Stage three ? + --+ --+ ------+| ?15-29 ?| ?Stage four ? | ? Stage four ?+ ---+ ---+ -------+| ?<15 (or dialysis) ? ?| ?Stage five ? | ? Stage five ?+ ---+ ---+ -------+ *Each stage assumes the associated GFR level has been in effect for at least three months. ?Stages 1 to 5, with or without kidney disease, indicate chronic kidney disease. Notes: Determination of stages one and two (with eGFR >59mL/min/1.73 m2) requires estimation of kidney damage for at least three months as defined by structural or functional abnormalities of the kidney, manifested by either:Pathological abnormalities or Markers of kidney damage (including abnormalities in the composition of the blood or urine or abnormalities in imaging tests). Lab Interpretation Abnormal (test code = 76931-5) [facility]TR[facility] [id number] 11:30:28 Test Item Value Reference Interpretation Comments Range TROPONIN I (test 0.060 ng/mL See_Comment H [Automated code = 2772800851) message] The system which generated this result transmitted reference range : <=0.034. The reference range was not used to interpret this result as normal/abnormal . AJ (test code = Reference (Normal) AJ) Range (defined by the 99th percentile reference limit): <= 0.034 ng/mL Note: Cardiac troponin begins to rise 3-4 hours after the onset of ischemia. Repeat in 4-6 hours if the sample was drawn within 3-4 hours of the onset of the symptom and found normal. Diagnosis of myocardial injury is made with acute changes in cTn concentrations with at least one serial sample above the 99th percentile upper reference limit (URL), taken together with the patient's clinical presentation. Biotin has been reported to cause a negative bias, interpret results relative to patient's use of biotin. Lab Interpretation Abnormal (test code = 30756-5) [facility] HospitalACTIVATED PARTIAL THRMPLAS [id number] 11:18:43 Test Item Value Reference Range Interpretation Comments APTT Patient (test See_Comment [Automat ed code = 3173-2) message] The system which generated this result transmitted reference range : 23 - 38 Seconds . The reference range was not used to interpr et this result as normal/abnormal . AJ (test code = AJ) The [facility] patient population mean normal value for aPTT is 30 seconds. Lab Interpretation Normal (test code = 40834-4) [facility] HospitalLIPASE2022-04-21 11:18:28 Test Item Value Reference Range Interpretation Comments LIPASE (test code = 1928286378) 124 U/L 0-220 Lab Interpretation (test code = Normal 50225-4) [facility] HospitalPROTHROMBIN TIME / [id number] 11:16:43 Test Item Value Reference Range Interpretation Comments PROTIME PATIENT (test See_Comment [Auto mated message] code = 5964-2) The system wh ich generated this result transmitted ref erence range: 12.0 - 1 4.7 Seconds. The re ference range was not u sed to interpret this result as normal/abnor mal. INR (test code = 6301-6) Nor mal INR <1.1; Warfarin Therap eutic range 2.0 to 3. 0 or 2.5 to 3.5, dep ending upon the indica tions. Lab Interpretation (test Normal code = 95907-2) [facility] WITH [id number] 11:08:43 Test Item Value Reference Range Interpretation Comments WBC (test code = See_Comment [Automated 1890-2) message] The sy stem which generated this result transmitted reference range : 4.20 - 10.70 10*3/?L. The reference range was not used to interpret this result as normal/abnormal . RBC (test code = See_Comment L [Automated 789-8) message] The sy stem which generated this result transmitted reference range : 4.26 - 5.52 10*6/?L. The reference range was not used to interpret this result as normal/abnormal . HGB (test code = 5.8 g/dL 12.2-16.4 L 718-7) HCT (test code = 19.0 % 38.4-49.3 L 4544-3) MCV (test code = 86.0 fL 81.7-95.6 787-2) MCH (test code = 26.2 pg 26.1-32.7 785-6) MCHC (test code = 30.5 g/dL 31.2-35.0 L 786-4) RDW-SD (test code = 48.9 fL 38.5-51.6 87158-6) RDW-CV (test code = 16.0 % 12.1-15.4 H 788-0) PLT (test code = See_Comment [Automated 777-3) message] The sy stem which generated this result transmitted reference range : 150 - 328 10*3/ ?L. The reference r yazan was not used to interpret this result as normal/abnormal . MPV (test code = 11.2 fL 9.8-13.0 70281-8) NRBC/100 WBC (test See_Comment [Automat ed code = 7423921901) message] The system which generated this result transmitted reference range : 0.0 - 10.0 /100 WBCs. The refer ence range was not u sed to interpret th is result as normal/abnormal . NRBC x10^3 (test code <0.01 See_Comment [Auto mated = 7079611065) message] The s ystem which generated this result transmitted reference range : 10*3/?L. The reference range was not used to interpret this result as normal/abnormal . GRAN MAT (NEUT) % 76.2 % (test code = 770-8) IMM GRAN % (test code 0.40 % = 5205891583) LYMPH % (test code = 10.1 % 736-9) MONO % (test code = 11.7 % 5905-5) EOS % (test code = 1.3 % 713-8) BASO % (test code = 0.3 % 706-2) GRAN MAT x10^3(ANC) 5.19 10*3/uL 1.99-6.95 (test code = 1886062997) IMM GRAN x10^3 (test 0.03 10*3/uL 0.00-0.06 code = 3881753973) LYMPH x10^3 (test code 0.69 10*3/uL 1.09-3.23 L = 731-0) MONO x10^3 (test code 0.80 10*3/uL 0.36-1.02 = 742-7) EOS x10^3 (test code = 0.09 10*3/uL 0.06-0.53 711-2) BASO x10^3 (test code <0.03 0.01-0.09 = 704-7) Lab Interpretation Abnormal (test code = 05704-1) [facility] [id number] 14:16:00Surgical Pathology Report Case: [id number] Authorizing Provider: Mack Mckoy, Collected: 07/25/2020 12:37 PM OrderingLocation: [address] Received: 07/25/2020 03:25 PM Service Pathologist: [...] STARRY STAIN Signing Pathologist Direct Phone Line: [phone] signed by Zaida Newsome MD on 07/30/2020 at 2:16 PMIncreased intraepithelial lymphocytes, luminal parasites, aggregates of foamy macrophages in lamina propria, dysplasia or malignancy are not seen. Gastric metaplasia and reactive changes and mild villous blunting is seen and may be from peptic duodenitis or mucosal injury. Clinical correlation is recommended.12284 x 2, 00970nbpdviQ. DuodenumB. GastricA. Received in formalin labeled the [...] evaluated Immunohistochemistry technical testing was performed at [facility], Pathology Laboratory where it was developed [...] as qualified to perform high complexity clinical laboratorytesting.[facility], Department of Pathology, [address] [place] [address], [facility], [facility] of [facility], [address] [place] [address], [facility], Department of Pathology, [address] [facility], [place] [address], YOIJMDBBP B SURFACE [id number] 06:06:00 Test Item Value Reference Range Interpretation Comments HEPATITIS B SURFACE ANTIGEN (2) Nonreactive Nonreactive (BEAKER) (test code = 2585) Specimen is considered negative for HBsAg.BASIC METABOLIC [id number] 05:21:00 Test Item Value Reference Range Interpretation [...] S NOT APPLICABLE FOR DIALYSIS PATIEN TS. [employer] Tanker Driver ID - PIAYA LCBC W/PLT COUNT & AUTO [id number] 04:30:00 Test Item Value Reference Range Interpretation [...] 0-1 PERCENT (BEAKER) (test code = 2801) [id number] 08:03:00 Test Item Value Reference Range Interpretation Comments MAGNESIUM (BEAKER) (test code = 2.2 mg/dL 1.6-2.6 627) [employer] Driver ID - MERARI [id number] 08:03:00 Test Item Value Reference Range Interpretation Comments PHOSPHORUS (BEAKER) (test code = 6.2 mg/dL 2.3-4.7 H 604) [employer] Driver ID - MERARI LHEPATIC FUNCTION [id number] 08:03:00 Test Item Value Reference Range Interpretation [...] (test code = 19 U/L 6-55 347) [employer] Driver ID - PIELISE LBASIC METABOLIC [id number] 08:03:00 Test Item Value Reference Range Interpretation [...] S NOT APPLICABLE FOR DIALYSIS PATIEN TS. [employer] Tanker Driver ID - PIAYA LSARS-COV2/RT-PCR ([facility])2020-07-24 07:27:00 Test Item Value Reference Range Interpretation Comments SARS-COV2/RT-PCR (test Negative Not Detected, Negative, code = 8521279) See external report for linked test SARS-COV-[address] [facility] AMELIA (test code = 5816112) Negative result for this test determines that [...] 564(g) of the Act.Fact Sheet for Healthcare Providers:https://www.PrintLess Plansidel.com/sites/default/files/product/documents/Fact_Shee s_AI_Wtcpgthdt_Vaen_PIUQ-DgY-1.pdfFact Sheet for Healthcare Patients:https://www.[employer].com/sites/default/files/product/ documents/Mlcr_Mtwtx_Mmezbfen_Qifo_TBCN-FlN-8.pdfPerforming Laboratory:[facility], [place] [address]YUY W/PLT COUNT & AUTO [id number] 06:56:00 Test Item Value Reference Range Interpretation [...] 0-1 PERCENT (BEAKER) (test code = 2801) [id number] 04:39:00 Test Item Value Reference Range Interpretation Comments FERRITIN (BEAKER) (test code = 545.58 ng/mL 5.00-275.00 H 361) [employer]er Driver ID - TAVIA MVITAMIN B12 AND [id number] 04:39:00 Test Item Value Reference Range Interpretation Comments VITAMIN B12 (BEAKER) 1058 pg/mL 213-816 H (test code = 774) FOLATE (BEAKER) 6.60 ng/mL See_Comment L [Automated message] (test code = 362) The system which generated this result transmitted ref erence range: >=7.00. The reference range was not used to interpr et this result as normal/abnormal . [employer] Tanker Driver ID - TAVIA MPERIPHERAL BLOOD SMEAR - HOLD [id number] 02:10:00 Test Item Value Reference Range Interpretation Comments PERIPHERAL SMEAR SAVE (BEAKER) (test Yes. code = 1815) [id number] 22:30:00 Test Item Value Reference Range Interpretation Comments HAPTOGLOBIN (BEAKER) (test code = 155 mg/dL 14-258 366) [employer] Tanker Driver ID - BSIRON, TIBC, % SAT. (WITHOUT FERRITIN)2020-07-23 22:30:00 Test Item Value Reference Range Interpretation Comments IRON (BEAKER) (test code = 547) 43.0 ug/dL 40.0-160.0 TOTAL IRON BINDING CAPACITY 208 ug/dL 250-450 L (BEAKER) (test code = 769) IRON % SATURATION (2) (BEAKER) 21 % 20-55 (test code = 2590) [employer]er Driver ID - [id number] 22:29:00 Test Item Value Reference Range Interpretation Comments MAGNESIUM (BEAKER) (test code = 2.2 mg/dL 1.6-2.6 627) [employer] Tanker Driver ID - BSLACTATE DEHYDROGENASE (LDH)2020-07-23 22:29:00 Test Item Value Reference Range Interpretation Comments LACTATE DEHYDROGENASE (BEAKER) (test 193 U/L 125-220 code = 635) [employer] Tanker Driver ID - BSCOMPREHENSIVE METABOLIC [id number] 22:29:00 Test Item Value Reference Range Interpretation [...] S NOT APPLICABLE FOR DIALYSIS PATIEN TS. [employer] Tanker Driver ID - BSRETICULOCYTE [id number] 22:16:00 Test Item Value Reference Range Interpretation Comments RETICULOCYTE COUNT PCT (BEAKER) (test 1.8 % 0.5-1.8 code = 575) [employer] Tanker Driver ID - 6000CBC W/PLT COUNT & AUTO [id number] 22:16:00 Test Item Value Reference Range Interpretation [...] 0-1 PERCENT (BEAKER) (test code = 2801) ELECTROCARDIOGRAM [id number] 20:33:54Result approved by Sara Reynaga MD on 06/12/20[facility] 2019-11-16 08:39:00FINAL REPORT CT of the chest, abdomen [...] Atrophic kidneys. Signed: Raul Sanchezort Verified Date/Time: 11/16/2019 08:39:14 Reading Location: [address] Consult Reading Room CT, [id number] 08:39:00FINAL REPORT CT of the chest, abdomen [...] MDReport Verified Date/Time: 11/16/2019 08:39:14 Reading Location: [facility] C013X [facility] Consult Reading Room FINE NEEDLE ASPIRATE BY [id number] 10:42:00Medical Cytology Report Case: [id number] Aut horizing Provider: Kalen Hurtado MD Collected: 07/28/2018 1400 Ordering Location: [facility] PERIOPERATIVE Received: 07/28/2018 1424 SERVICES Pathologist: Evita Dhillon MD Specimen: Lymph Node, Lower Paratracheal, Right, Station 4R LYMPH NODE, LOWERPARATRACHEAL, RIGHT, STATION 4R EBUS FNA AND CORE BIOPSY BY CLINICIAN (CYTOSPINS AND CELL BLOCK OF ASPIRATE): - NEGATIVE FOR MALIGNANCY - ANTHRACOTIC LYMPH NODE FRAGMENTS Signing Pathologist Direct Phone Line: [phone] signed by Evita Dhillon MD on 08/01/2018 at 10:42AMPlease see cases [id number] and [id number].Microscopic slides are received for examination and review on08/01/2018.28027, 80829L9Hkfikkdeypl lymphadenopathy, history of T-cell lymphoma currently in remissionLYMPH NODE, LOWER PARATRACHEAL, RIGHT, STATION 4R EBUS FNA37 mls in cytorich red; 2 cytospins, cellblock (A3)Core biopsy: Multiple fragments measuring 7x 0.4cm, 2x 0.5 cm, 0.7 cm, 1.2 cm red (A2)Collected: 825936Noxuqtkg: 681559Xqiovsvkq.The interpretation of this case included the use of immunohistochemistry or special stains. Immunohistochemistry technical testing was performed at [facility], Pathology Laboratory where it was developed [...] qualified to perform high complexity clinical laboratory testing.[facility], Department of Pathology, [address] [place] [address], [place] [address], [facility], Department of Patholog y, [address] [place] [address], [facility], Department of Pathology, [address] [place] [address], WSRW NEEDLE ASPIRATE BY [id number] 10:41:00Medical Cytology Report Case: [id number] Authorizing Provider: Kalen Hurtado MD Collected: 07/28/2018 1356 Ordering Location: [facility] PERIOPERATIVE Received: 07/28/2018 1424 SERVICES Pathologist: Evita Dhillon MD Specimen: Ly mph Node, Subcarinal, Station 7 LYMPH NODE, SUBCARINAL, STATION 7 EBUS FNA AND CORE BIOPSY BY CLINICIAN (CYTOSPINS AND CELL BLOCK OF ASPIRATE): - NEGATIVE FOR MALIGNANCY - ANTHRACOTIC LYMPH NODE FRAGMENTS Signing Pathologist Direct Phone Line: [phone] signed by Evita Dhillon MD on 08/01/2018 at 10:41 AMPlease see cases [id number] and [id number].Microscopic slides are received for examination and review on 08/01/2018.93766, 51017D3Jsizxjheymc lymphadenopathy, history of T-cell lymphoma currently in remissionLYMPH NODE, SUBCARINAL, STATION 7 EBUS FNA32 mls in cytorich red; 2 cytospins, cell block (A3)Core biopsy: multiple fragments measuring 1.5 x 0.8 cm, 0.5 cm, 0.3 cm, 0.2 cm red (A2)Collected: 590085Ihaocypy: 116854Lla interpretation of this case included the use of immunohistochemistry or special stains. Immunohistochemistry technical testing was performed at [facility], Pathology Laboratory where it was developed [...] qualified to perform high complexity clinical laboratory testing.[facility], Department of Pathology, [address] [place] [address], [facility], Department of Pathology, [address] [place] [address], [facility], Department of Pathology, [address] [place] [address], XZUZ CYTOMETRY [id number] 12:41:00 Test Item Value Reference Range Interpretation Comments FLOW CYTOMETRY RESULT See Separate Report POINTER (EDENILSON) (test code = 2758) FLOW CYTOMETRY AP CASE # [id number] (EDENILSON) (test code = 2759) FLOW [id number] 10:53:00Flow Cytometry Report Case: [id number] Authorizing Provider: Kalen Hurtado MD Collected: 07/28/2018 1355 Ordering Location: [facility] PERIOPERAT[facility] Received: 07/28/2018 1653 SERVICES Pathologist: Malissa Cohen MD Specimen: Other LYMPH NODE, EBUS FINE NEEDLE ASPIRATION, FLOW CYTOMETRY:-PREDOMINANCE OF GRANULOCYTES-NO MONOTYPIC B CELL POPULATION-NO ABERRANT T CELL POPULATION-SEE COMMENT The predominance of granulocytes is suggestive of peripheral blood contamination of the sample. These results require correlation with the morphologic and other features for full interpre tation. 686[address]Oapeefeexcv lymphadenopathy, History of T cell lymphoma s/p therapyLymph node FNA EBUS-guidedCD8, surface-kappa, CD56, surface-lambda, CD5, CD19, CD10, CD3, CD20, CD4, FC86Trfcewdy Viability: 98.3% Number of Events Acquired: 820444 The following populations are identified: Lymphocytes: Bright [...] developed and their performance characteristics determined by [facility]. They have not been cleared or approved by the U.S. Food and Drug Administration. The FDA has determined that such clearance or approval is not necessary. It should not be regarded as investigational or for research. This laboratory is certified under the Clinical Laboratory Improvement Amendments of 1988 ("CLIA") as qualified to perform high-complexity clinical testing.EBUS FNA [id number] 16:00:00 Test Item Value Reference Range Interpretation Comments CYTOLOGY RESULT POINTER See Separate Report (BEAKER) (test code = 2629) EBUS FNA [id number] 16:00:00 Test Item Value Reference Range Interpretation Comments CYTOLOGY RESULT POINTER See Separate Report (BEAKER) (test code = 2629) COMPREHENSIVE METABOLIC [id number] 11:20:00 Test Item Value Reference Range Interpretation [...] S NOT APPLICABLE FOR DIALYSIS PATIEN TS. [id number] 10:18:00 Test Item Value Reference Range Interpretation Comments PARTIAL THROMBOPLASTIN TIME 36.1 seconds 22.5-36.0 H (BEAKER) (test code = 760) PROTHROMBIN TIME/[id number] 10:16:00 Test Item Value Reference Range Interpretation [...] (BEAKER) (test code = 2801) COMPREHENSIVE METABOLIC [id number] 07:46:00 Test Item Value Reference Range Interpretation [...] S NOT APPLICABLE FOR DIALYSIS PATIEN TS. [id number] 07:31:00 Test Item Value Reference Range Interpretation Comments PARTIAL THROMBOPLASTIN TIME 45.9 seconds 22.5-36.0 H (BEAKER) (test code = 760) PROTHROMBIN TIME/[id number] 07:30:00 Test Item Value Reference Range Interpretation [...] PERCENT (BEAKER) (test code = 2801) POCT-GLUCOSE [id number] 06:48:00 Test Item Value Reference Range Interpretation Comments POC-GLUCOSE METER 106 mg/dL 70-[address] [facility] [address] (BEAKER) (test code = [place] 1538) [address] BASIC METABOLIC [id number] 11:54:00 Test Item Value Reference Range Interpretation [...] PATIEN TS. CBC W/PLT COUNT & AUTO [id number] 11:37:00 Test Item Value Reference Range Interpretation [...] 0-1 PERCENT (BEAKER) (test code = 2801) [id number] 09:37:00 Test Item Value Reference Range Interpretation Comments POC-POTASSIUM 4.2 meq/L 3.6-5.5 TESTED AT [facility] 6720 (BEAKER) (test code [facility] [address] = 1540) BUN AND [id number] 13:33:00 Test Item Value Reference Range Interpretation [...] S NOT APPLICABLE FOR DIALYSIS PATIEN TS. [id number] 13:32:00 Test Item Value Reference Range Interpretation Comments SODIUM (BEAKER) (test code = 381) 139 meq/L 136-145 POTASSIUM (BEAKER) (test code = 4.2 meq/L 3.5-5.1 379) CHLORIDE (BEAKER) (test code = 382) 100 meq/L 98-107 CO2 (BEAKER) (test code = 355) 27 meq/L 22-29 [id number] 13:14:00 Test Item Value Reference Range Interpretation Comments HEMOGLOBIN (BEAKER) (test code = 12.8 GM/DL 13.7-17.5 L 410) BLOOD [id number] 04:41:00 Test Item Value Reference Range Interpretation Comments CULTURE (EDENILSON) (test No growth in 5 days code = 1095) POCT-GLUCOSE [id number] 13:11:00 Test Item Value Reference Range Interpretation Comments POC-GLUCOSE METER 169 mg/dL 70-[address] [facility] 67[address] (EDENILSON) (test code = [place] 1538) [address] ANG, TUNNELED CATHETER [id number] 18:19:00FINAL REPORT Tunneled dialysis catheter insertion. History: Renal failure. Modality: Sonography and fluoroscopy. Sedation: Moderate sedation was administered. 2 mg of Versed and 100 mcg of fentanyl IV was used for moderate sedation monitored under my direction. Total intra-service time of sedation was 30 minutes. The patient'svital signs were monitored throughout the procedure and recorded in the patient's medical record by the nurse. Grey Washer: [place] Internist: None. Approach: Left internal jugular vein Estimatedblood [...] not be advanced centrally. The inner 3 Citizen [place] micropuncture sheath was placed and contrast injected [...] needle into the right atrium. A 4 Citizen [place] micropuncture sheath was placed and a 0.035 wire advanced into the IVC. A subcutaneous tunnel was created in theleft anterior chest wall by blunt dissection. A 23 cm tip to cuff 15.5 Citizen [place] Duraflow 2 catheter was brought through the [...] MDReport Verified Date/Time: 01/13/2018 18:19:33 Reading Location: [place] [address] Angio Body Reading Room POCT-GLUCOSE [id number] 17:11:00 Test Item Value Reference Range Interpretation Comments POC-GLUCOSE METER 159 mg/dL 70-[address] [facility] [address] ([facility]) (test code = [place] 1538) [address] CATHETER TIP [id number] 10:23:00 Test Item Value Reference Range Interpretation Comments CULTURE ([facility]) A <15 [place] s On (test code = 1095) Direct Pl ate Pseudomonas aeruginosa CULTURE ([facility]) PSEUDOMONAS A <15 [place] s On [...] Tobramycin (test S code = 25) POCT-GLUCOSE [id number] 08:43:00 Test Item Value Reference Range Interpretation Comments POC-GLUCOSE METER 116 mg/dL 70-[address] [facility] 67[address] (BEAKER) (test code = [place] 1538) [address] BASIC METABOLIC [id number] 06:17:00 Test Item Value Reference Range Interpretation [...] S NOT APPLICABLE FOR DIALYSIS PATIEN TS. [id number] 05:32:00 Test Item Value Reference Range Interpretation [...] 0-0 (BEAKER) (test code = 413) POCT-GLUCOSE [id number] 22:24:00 Test Item Value Reference Range Interpretation Comments POC-GLUCOSE METER 118 mg/dL 70-110 H TESTED AT [place] [address] ([facility]) (test code = TATY Olivas [facility] 1538) [address] POCT-GLUCOSE [id number] 18:32:00 Test Item Value Reference Range Interpretation Comments POC-GLUCOSE METER 146 mg/dL 70-110 H TESTED AT [place] [address] ([facility]) (test code = TATY Olivas [facility] 1538) [address] POCT-GLUCOSE [id number] 12:18:00 Test Item Value Reference Range Interpretation Comments POC-GLUCOSE METER 106 mg/dL 70-110 TESTED AT [place] [address] ([facility]) (test code = TATY Olivas [facility] 1538) [address] POCT-GLUCOSE [id number] 07:45:00 Test Item Value Reference Range Interpretation Comments POC-GLUCOSE METER 98 mg/dL 70-110 TESTED AT [place] [address] ([facility] (test code = [facility] [address] 1538) BLOOD [id number] 06:00:00 Test Item Value Reference Range Interpretation Comments CULTURE (BEAKER) (test No growth in 5 days code = 1095) BLOOD [id number] 06:00:00 Test Item Value Reference Range Interpretation Comments CULTURE (BEAKER) (test No growth in 5 days code = 1095) POCT-GLUCOSE [id number] 21:04:00 Test Item Value Reference Range Interpretation Comments POC-GLUCOSE METER 124 mg/dL 70-110 H TESTED AT [place] [address] ([facility]) (test code = [facility] 1538) [address] POCT-GLUCOSE [id number] 17:25:00 Test Item Value Reference Range Interpretation Comments POC-GLUCOSE METER 177 mg/dL 70-110 H TESTED AT [place] [address] ([facility]) (test code = [facility] 1538) [address] BASIC METABOLIC [id number] 13:32:00 Test Item Value Reference Range Interpretation [...] NOT APPLICABLE FOR DIALYSIS PATIEN TS. POCT-GLUCOSE [id number] 12:17:00 Test Item Value Reference Range Interpretation Comments POC-GLUCOSE METER 82 mg/dL 70-[address] [facility] 6720 ([facility]) (test code = TATY Olivas [facility] [address] 1538) [id number] 11:20:00 Test Item Value Reference Range Interpretation Comments PROTIME ([facility]) (test code = 15.3 seconds 11.7-14.7 H 759) INR ([facility]) (test code = 370) 1.2 <=5.9 PARTIAL THROMBOPLASTIN TIME 30.9 seconds 22.5-36.0 ([facility]) (test code = 760) RECOMMENDED COUMADIN/WARFARIN INR THERAPY RANGESSTANDARD DOSE: 2.0 - 3.0 Includes: PROPHYLAXIS forvenous thrombosis, systemic embolization; TREATMENT for venous thrombosis and/or pulmonary embolus.HIGH RISK: Target INR is 2.5-3.5 for patients with mechanical heart valves.BLOOD [id number] 11:00:00 Test Item Value Reference Range Interpretation Comments CULTURE ([facility]) (test No growth in 5 days code = 1095) POCT-GLUCOSE [id number] 07:51:00 Test Item Value Reference Range Interpretation Comments POC-GLUCOSE METER 107 mg/dL 70-110 TESTED AT [place] [address] ([facility]) (test code = TATY Olivas [facility] 1538) [address] CALCIUM, [id number] 06:32:00 Test Item Value Reference Range Interpretation Comments CALCIUM IONIZED ([facility]) (test 0.87 mmol/L 1.12-1.27 L code = 698) PH, BLOOD ([facility]) (test code = 7.38 1810) [id number] 06:13:00 Test Item Value Reference Range Interpretation Comments PHOSPHORUS (BEAKER) (test code = 6.9 mg/dL 2.3-4.7 H 604) [id number] 06:13:00 Test Item Value Reference Range Interpretation Comments MAGNESIUM (BEAKER) (test code = 2.6 mg/dL 1.6-2.6 627) CBC W/PLT COUNT & AUTO [id number] 06:00:00 Test Item Value Reference Range Interpretation Comments WHITE BLOOD CELL COUNT (AKER) 8.0 K/ L 3.5-10.5 (test code = [...] PERCENT (BEAKER) (test code = 2801) POCT-GLUCOSE [id number] 21:57:00 Test Item Value Reference Range Interpretation Comments POC-GLUCOSE METER 91 mg/dL 70-110 TESTED AT [place] [address] ([facility]) (test code = TATY Olivas [facility] [address] 1538) BASIC METABOLIC [id number] 20:35:00 Test Item Value Reference Range Interpretation [...] NOT APPLICABLE FOR DIALYSIS PATIEN TS. POCT-GLUCOSE [id number] 17:48:00 Test Item Value Reference Range Interpretation Comments POC-GLUCOSE METER 136 mg/dL 70-110 H TESTED AT [place] [address] ([facility] (test code = [facility] 1538) [address] POCT-GLUCOSE [id number] 12:42:00 Test Item Value Reference Range Interpretation Comments POC-GLUCOSE METER 109 mg/dL 70-110 TESTED AT [place] [address] ([facility] (test code = [facility] 1538) [address] POCT-GLUCOSE [id number] 08:25:00 Test Item Value Reference Range Interpretation Comments POC-GLUCOSE METER 146 mg/dL 70-110 H TESTED AT [place] [address] ([facility] (test code = [facility] 1538) [address] VANCOMYCIN LEVEL, [id number] 01:13:00 Test Item Value Reference Range Interpretation Comments VANCOMYCIN RANDOM (BEAKER) (test 30.1 ug/mL code = 523) Reference Range: No NormalsPOCT-GLUCOSE [id number] 21:48:00 Test Item Value Reference Range Interpretation Comments POC-GLUCOSE METER 118 mg/dL 70-110 H TESTED AT [place] [address] ([facility]) (test code = [facility] 1538) [address] POCT-GLUCOSE [id number] 18:22:00 Test Item Value Reference Range Interpretation Comments POC-GLUCOSE METER 118 mg/dL 70-110 H TESTED AT [place] [address] ([facility]) (test code = [facility] 1538) [address] POCT-GLUCOSE [id number] 13:46:00 Test Item Value Reference Range Interpretation Comments POC-GLUCOSE METER 107 mg/dL 70-110 TESTED AT [place] [address] ([facility]) (test code = [facility] 1538) [address] POCT-GLUCOSE [id number] 08:36:00 Test Item Value Reference Range Interpretation Comments POC-GLUCOSE METER 107 mg/dL 70-110 TESTED AT [place] [address] ([facility]) (test code = [facility] 1538) [address] SPUTUM CULTURE + GRAM [id number] 07:38:00 Test Item Value Reference Range Interpretation Comments CULTURE (BEAKER) 1+ Normal respiratory (test code = 1095) miller present GRAM STAIN RESULT 1+ WBCs (BEAKER) (test code = 1123) GRAM STAIN RESULT 0-5 epithelial cells (BEAKER) (test code = 42890) GRAM STAIN RESULT 1+ gram positive cocci (BEAKER) (test code = in pairs and clusters 60388) BASIC METABOLIC [id number] 06:57:00 Test Item Value Reference Range Interpretation [...] S NOT APPLICABLE FOR DIALYSIS PATIEN TS. [id number] 06:54:00 Test Item Value Reference Range Interpretation Comments PHOSPHORUS (BEAKER) (test code = 4.9 mg/dL 2.3-4.7 H 604) [id number] 06:54:00 Test Item Value Reference Range Interpretation Comments MAGNESIUM (BEAKER) (test code = 2.2 mg/dL 1.6-2.6 627) CBC W/PLT COUNT & AUTO [id number] 06:38:00 Test Item Value Reference Range Interpretation [...] PERCENT (BEAKER) (test code = 2801) CALCIUM, [id number] 06:36:00 Test Item Value Reference Range Interpretation Comments CALCIUM IONIZED (BEAKER) (test 0.81 mmol/L 1.12-1.27 L code = 698) PH, BLOOD (BEAKER) (test code = 7.43 1810) POCT-GLUCOSE [id number] 20:50:00 Test Item Value Reference Range Interpretation Comments POC-GLUCOSE METER 99 mg/dL 70-110 TESTED AT [place] [address] ([facility] (test code = [facility] [address] 1538) POCT-GLUCOSE [id number] 17:36:00 Test Item Value Reference Range Interpretation Comments POC-GLUCOSE METER 154 mg/dL 70-[address] [facility] 6720 (BEAKER) (test code = [facility] 1538) [address] POCT-GLUCOSE [id number] 12:44:00 Test Item Value Reference Range Interpretation Comments POC-GLUCOSE METER 116 mg/dL 70-[address] [facility] 67[address] (BEAKER) (test code = [facility] 1538) [address] POCT-GLUCOSE [id number] 08:59:00 Test Item Value Reference Range Interpretation Comments POC-GLUCOSE METER 108 mg/dL 70-[address] [facility] 67[address] (BEAKER) (test code = TATY [place] 1538) [address] (CELLAVISION MANUAL DIFF)2018-01-08 08:20:00 Test Item Value [...] 3438) Received comment: User comments: Slide comments:CALCIUM, [id number] 07:09:00 Test Item Value Reference Range Interpretation Comments CALCIUM IONIZED (BEAKER) (test 0.94 mmol/L 1.12-1.27 L code = 698) PH, BLOOD (BEAKER) (test code = 7.44 1810) BASIC METABOLIC [id number] 06:16:00 Test Item Value Reference Range Interpretation [...] S NOT APPLICABLE FOR DIALYSIS PATIEN TS. [id number] 06:14:00 Test Item Value Reference Range Interpretation Comments PHOSPHORUS (BEAKER) (test code = 5.5 mg/dL 2.3-4.7 H 604) [id number] 06:14:00 Test Item Value Reference Range Interpretation Comments MAGNESIUM (BEAKER) (test code = 2.3 mg/dL 1.6-2.6 627) HEPATIC FUNCTION [id number] 06:14:00 Test Item Value Reference Range Interpretation [...] 68 U/L 6-55 H 347) VANCOMYCIN LEVEL, [id number] 05:56:00 Test Item Value Reference Range Interpretation Comments VANCOMYCIN RANDOM (BEAKER) (test 37.1 ug/mL code = 523) Reference Range: No NormalsPROTHROMBIN [id number] 05:32:00 Test Item Value Reference Range Interpretation [...] 150-450 code = 756) MEAN PLATELET VOLUME ([facility]) 11.1 fL 9.4-12.4 (test code = 754) NUCLEATED RED BLOOD CELLS 0 /100 WBC 0-0 ([facility]) (test code = 413) ANG, REMOVAL OF TUNNELED CVC W/O [id number] 21:29:00Reason for exam:->BacteremiaFINAL REPORT Tunneled catheter removal: [...] Leslie Verified Date/Time: 01/07/2018 21:29:51 Reading Location: [facility] Radiology Reading Room POCT- GLUCOSE [id number] 21:18:00 Test Item Value Reference Range Interpretation Comments POC-GLUCOSE METER 138 mg/dL 70-110 H TESTED AT [place] [address] ([facility]) (test code = T[place] 1538) [address] POCT-GLUCOSE [id number] 17:07:00 Test Item Value Reference Range Interpretation Comments POC-GLUCOSE METER 126 mg/dL 70-110 H TESTED AT [place] [address] ([facility]) (test code = TATY Olivas [facility] 1538) [address] LACTIC ACID, VENOUS, WHOLE [id number] 15:44:00 Test Item Value Reference Range Interpretation Comments LACTATE BLOOD VENOUS 1.9 mmol/L 0.5-2.2 Specime n slightly (2) ([facility]) (test hemolyzed code = 2872) Effective 09/10/2015: Units/Reference Range ChangeNew: 0.5-2.2 mmol/L Previous: 5-20 mg/dLPOCT-GLUCOSE [id number] 13:38:00 Test Item Value Reference Range Interpretation Comments POC-GLUCOSE METER 120 mg/dL 70-[address] [facility] 6720 (BEAKER) (test code = T[place] 1538) [address] BASIC METABOLIC [id number] 11:05:00 Test Item Value Reference Range Interpretation [...] S NOT APPLICABLE FOR DIALYSIS PATIEN TS. [id number] 10:45:00 Test Item Value Reference Range Interpretation Comments PHOSPHORUS (BEAKER) (test code = 5.6 mg/dL 2.3-4.7 H 604) [id number] 10:45:00 Test Item Value Reference Range Interpretation Comments MAGNESIUM (BEAKER) (test code = 2.5 mg/dL 1.6-2.6 627) HEPATIC FUNCTION [id number] 10:45:00 Test Item Value Reference Range Interpretation [...] U/L 6-55 H 347) HEPATITIS B SURFACE [id number] 10:16:00 Test Item Value Reference Range Interpretation Comments HEPATITIS B SURFACE ANTIGEN (2) Nonreactive Nonreactive (AKER) (test code = 2585) POCT-GLUCOSE [id number] 07:59:00 Test Item Value Reference Range Interpretation Comments POC-GLUCOSE METER 102 mg/dL 70-[address] [facility] [address] ([facility]) (test code = [place] 1538) [address] VITAMIN D, 05-[id number] 07:50:00 Test Item Value Reference Range Interpretation Comments VITAMIN D 25-OH (AKER) (test 47.2 ng/mL 6.6-49.9 code = 2764) Effective 02/16/2017: Reference Range ChangeNew: 6.6-49.9 ng/mL Previous: 13.0-47.8 ng/mLRecommended Vitamin D Target Range: 30.0-40.0 ng/mLVANCOMYCIN LEVEL, [id number] 07:12:00 Test Item Value Reference Range Interpretation Comments VANCOMYCIN RANDOM (BEAKER) (test 22.1 ug/mL code = 523) Reference Range: No NormalsPTH, [id number] 05:52:00 Test Item Value Reference Range Interpretation Comments PARATHYROID HORMONE INTACT 198.9 pg/mL 8.5-72.5 H (BEAKER) (test code = 577) CALCIUM, [id number] 05:45:00 Test Item Value Reference Range Interpretation Comments CALCIUM IONIZED (BEAKER) (test 0.84 mmol/L 1.12-1.27 L code = 698) PH, BLOOD (AKER) (test code = 7.51 1810) PROTHROMBIN [id number] 05:13:00 Test Item Value Reference Range Interpretation Comments PROTIME (BEAKER) (test code = 14.7 seconds 11.7-14.7 759) INR (BEAKER) (test code = 370) 1.2 <=5.9 RECOMMENDED COUMADIN/WARFARIN INR THERAPY RANGESSTANDARD DOSE: 2.0 - 3.0 Includes: PROPHYLAXIS forvenous thrombosis, systemic embolization; TREATMENT for venous thrombosis and/or pulmonary embolus.HIGH RISK: Target INR is 2.5-3.5 for patients with mechanical heart valves.POCT-GLUCOSE [id number] 21:13:00 Test Item Value Reference Range Interpretation Comments POC-GLUCOSE METER 92 mg/dL 70-[address] [facility] 67[address] (BEAKER) (test [place] = [place] [address] 1538) [id number] 18:56:00 Test Item Value Reference Range Interpretation Comments PROCALCITONIN (BEAKER) (test code 51.22 ng/mL <0.05 HH = 3036) SEPSIS RISK (ng/mL)Low: 0.05-0.50Intermediate: 0.51-2.00High: >=2.01URINALYSIS W/ [id number] 18:31:00 Test Item Value Reference Range Interpretation [...] /HPF 520) SOURCE(BEAKER) (test code = 2795) [id number] 17:48:00 Test Item Value Reference Range Interpretation Comments PHOSPHORUS (BEAKER) (test code = 5.1 mg/dL 2.3-4.7 H 604) RAD, CHEST, 1 VIEW, NON [id number] 11:31:00Reason for exam:->chest painShould this be performed [...] MDReport Verified Date/Time: 12/09 11:31:21 Reading Location: [facility] Radiology Reading Room CBC W/PLT COUNT & AUTO [id number] 11:14:00 Test Item Value Reference Range Interpretation [...] Received comment: User comments: Slide comments:U/S, RENAL, [id number] 09:04:00Reason for exam:->AKIFINAL REPORT Renal ultrasound Clinical [...] CT is recommended.3. Prostatomegaly. Signed: Jeovany Hill Verified Date/Time: 01/06/2018 09:04:28 Reading Location: [facility] [id number] Ultrasound Reading Room Electronically signedby: JEOVANY HILL MD on 01/06/2018 09:04 AMLACTIC ACID, VENOUS, WHOLE [id number] 07:15:00 Test Item Value Reference Range Interpretation Comments LACTATE BLOOD VENOUS (2) (BEAKER) 0.6 mmol/L 0.5-2.2 (test code = 2872) Effective 09/10/2015: Units/Reference Range ChangeNew: 0.5-2.2 mmol/L Previous: 5-20 mg/dLBASIC METABOLIC [id number] 05:48:00 Test Item Value Reference Range Interpretation [...] APPLICABLE FOR DIALYSIS PATIEN TS. HEPATIC FUNCTION [id number] 05:45:00 Test Item Value Reference Range Interpretation [...] code = 54 U/L 6-55 347) PROTHROMBIN [id number] 05:22:00 Test Item Value Reference Range Interpretation [...] stable. Physician intra- service time was 20minutes. Grey Washer: Dimple. Internist: None. Approach: Right internal jugular vein Estimated [...] needle into the right atrium. A 4 Citizen [place] micropuncture sheath was placed. A subcutaneous tunnel was created in the right anterior chest wall by blunt dissection. A 19 cm 15.5 [place] Duraflow 2 catheter was brought through the [...] and fluoroscopic guidance and conscious sedation. Signed:Hari Flanneryort Verified Date/Time: 03/18/2017 09:52:18 Reading Location: [address] Body Reading Room ELLANEOUS LAB [id number] 14:09:00 Test Item Value Reference Range Interpretation Comments SCAN RESULT (test code = 6939374) Result comments: METHICILLIN-SUSCEPTIBLE STAPH. AUREUS (MSSA) DETECTED Staphylococcus aureus DETECTED MecA NOT DETECTED First line therapy: cefazolin or nafcillin (nafcillin preferred if Central Nervous System Infection) ID consultation strongly encouraged. Other organisms and resistance markers not c ontained in this PCR panel cannot be excluded and follow-up of traditional culture results is required. This sample was tested at the [facility] Clinical Microbiology Laboratory using the [employer] Blood Culture ID Panel. This test is FDA cleared for in vitro diagnostic use and has been verified and approved by the [facility] Clinical Microbiology laboratory for clinical use. Reference Range: Not DetectedBLOOD [id number] 11:00:00 Test Item Value Reference Range Interpretation Comments CULTURE (BEAKER) (test No growth in 5 days code = 1095) BLOOD [id number] 11:00:00 Test Item Value Reference Range Interpretation Comments CULTURE (BEAKER) (test No growth in 5 days code = 1095) BLOOD [id number] 18:00:00 Test Item Value Reference Range Interpretation Comments CULTURE (BEAKER) (test No growth in 5 days code = 1095) BLOOD [id number] 18:00:00 Test Item Value Reference Range Interpretation Comments CULTURE (BEAKER) (test No growth in 5 days code = 1095) BASIC METABOLIC [id number] 07:03:00 Test Item Value Reference Range Interpretation [...] 697) EGFR (BEAKER) (test 10 mL/min/1.73 ESTIMA MICHELLE GFR IS code = 1092) sq m [...] WBC 0-0 (BEAKER) (test code = 413) [id number] 06:15:00 Test Item Value Reference Range Interpretation [...] for patients with mechanical heart valves.BASIC METABOLIC [id number] 06:38:00 Test Item Value Reference Range Interpretation [...] S NOT APPLICABLE FOR DIALYSIS PATIEN TS. [id number] 06:26:00 Test Item Value Reference Range Interpretation Comments PHOSPHORUS (BEAKER) (test code = 5.9 mg/dL 2.3-4.7 H 604) [id number] 06:26:00 Test Item Value Reference Range Interpretation Comments MAGNESIUM (BEAKER) (test code = 2.0 mg/dL 1.6-2.6 627) CBC W/PLT COUNT & AUTO [id number] 06:00:00 Test Item Value Reference Range Interpretation [...] 0-1 PERCENT (BEAKER) (test code = 2801) [id number] 07:32:00 Test Item Value Reference Range Interpretation [...] % 20-55 H (test code = 2590) [id number] 07:19:00 Test Item Value Reference Range Interpretation Comments PHOSPHORUS (BEAKER) (test code = 5.3 mg/dL 2.3-4.7 H 604) [id number] 07:19:00 Test Item Value Reference Range Interpretation Comments MAGNESIUM (BEAKER) (test code = 2.2 mg/dL 1.6-2.6 627) BASIC METABOLIC [id number] 07:19:00 Test Item Value Reference Range Interpretation [...] PATIEN TS. CBC W/PLT COUNT & AUTO [id number] 06:51:00 Test Item Value Reference Range Interpretation [...] (BEAKER) (test code = 2801) CATHETER TIP [id number] 16:52:00 Test Item Value Reference Range Interpretation Comments CULTURE (BEAKER) A <15 Colonie s On Direct (test code = 1095) Plate Coa gulase negative Staphylococcus CATHETER TIP [id number] 16:49:00 Test Item Value Reference Range Interpretation Comments CULTURE (BEAKER) (test code = 1095) No growth BLOOD [id number] 08:10:00 Test Item Value Reference Range Interpretation [...] gram 1123) positive cocci in clusters BLOOD [id number] 08:08:00 Test Item Value Reference Interpretation Comments [...] required. This sample wastested at the [facility] Clinical [facility] Laboratory using the [employer] Blood Culture ID Panel. This test is FDA cleared for in vitro diagnostic use and has been verified and approved by the [facility] Clinical Microbiology laboratory for clinical use. Reference Range: Not DetectedBASIC METABOLIC [id number] 07:05:00 Test Item Value Reference Range Interpretation [...] S NOT APPLICABLE FOR DIALYSIS PATIEN TS. [id number] 07:01:00 Test Item Value Reference Range Interpretation Comments PHOSPHORUS (BEAKER) (test code = 4.8 mg/dL 2.3-4.7 H 604) [id number] 07:01:00 Test Item Value Reference Range Interpretation Comments MAGNESIUM (BEAKER) (test code = 2.2 mg/dL 1.6-2.6 627) CBC W/PLT COUNT & AUTO [id number] 06:39:00 Test Item Value Reference Range Interpretation [...] 0-1 PERCENT (BEAKER) (test code = 2801) [id number] 23:09:00 Test Item Value Reference Range Interpretation Comments SODIUM (BEAKER) (test code = 381) 141 meq/L 136-145 POTASSIUM (BEAKER) (test code = 4.2 meq/L 3.5-5.1 379) CHLORIDE (BEAKER) (test code = 382) 106 meq/L 98-107 CO2 (BEAKER) (test code = 355) 22 meq/L 22-29 BASIC METABOLIC [id number] 13:19:00 Test Item Value Reference Range Interpretation [...] S NOT APPLICABLE FOR DIALYSIS PATIEN TS. [id number] 13:11:00 Test Item Value Reference Range Interpretation Comments PHOSPHORUS (BEAKER) (test code = 3.6 mg/dL 2.3-4.7 604) [id number] 13:11:00 Test Item Value Reference Range Interpretation Comments MAGNESIUM (BEAKER) (test code = 2.1 mg/dL 1.6-2.6 627) CBC W/PLT COUNT & AUTO [id number] 12:55:00 Test Item Value Reference Range Interpretation [...] = 2801) ANG, REMOVAL OF TUNNELED CVC [id number] 12:44:00Reason for exam:->ESRD bacteremia concern for line [...] MDReport Verified Date/Time: 02/27/2017 12:44:21 Reading Location: [place] [id number] [facility] BodyReading Room VANCOMYCIN LEVEL, [id number] 05:46:00 Test Item Value Reference Range Interpretation Comments VANCOMYCIN RANDOM (BEAKER) (test 20.4 ug/mL code = 523) Reference Range: No NormalsHEPATITIS B SURFACE [id number] 15:33:00 Test Item Value Reference Range Interpretation Comments HEPATITIS B SURFACE ANTIGEN (2) Nonreactive Nonreactive (BEAKER) (test code = 2585) CBC W/PLT COUNT & AUTO [id number] 07:12:00 Test Item Value Reference Range Interpretation [...] (BEAKER) (test code = 2801) BASIC METABOLIC [id number] 06:47:00 Test Item Value Reference Range Interpretation [...] S NOT APPLICABLE FOR DIALYSIS PATIEN TS. [id number] 06:43:00 Test Item Value Reference Range Interpretation Comments PHOSPHORUS (BEAKER) (test code = 3.0 mg/dL 2.3-4.7 604) PROTHROMBIN [id number] 06:07:00 Test Item Value Reference Range Interpretation Comments PROTIME ([facility]) (test code = 15.2 seconds 11.7-14.7 H 759) INR ([facility]) (test code = 370) 1.2 <=5.9 RECOMMENDED [...] remained stable. Physician intra-servicetime was 20 minutes. Grey Washer: Dimple. Internist: None. Approach: Right internal jugular vein Estimated [...] needle into the right atrium. A 4 Citizen [place] micropuncture sheath was placed. A subcutaneous tunnel was created in the right anterior chest wall by blunt dissection. A 19 cm 15.5 Citizen [place] Duraflow 2 catheter was brought through the [...] MDReport Verified Date/Time: 01/26/2017 07:52:45 Reading Location: [address] Body Reading Room POCT- GLUCOSE [id number] 01:07:00 Test Item Value Reference Range Interpretation Comments POC-GLUCOSE METER 179 mg/dL 70-[address] [facility] [address] ([facility]) (test code = TATY ANN [place] 1538) [address] BASIC METABOLIC [id number] 21:57:00 Test Item Value Reference Range Interpretation [...] 697) EGFR (BEAKER) (test 10 mL/min/1.73 ESTIMA MICHELLE GFR IS code = 1092) sq m NOT ACCURATE CREATININE CLEARANCE IN PREDICTING GLOMERULAR FILTRATION RATE . ESTIMATED GFR I S NOT APPLICABLE FOR DIALYSIS PATIEN TS. CREATINE KINASE (CK), TOTAL AND [id number] 21:52:00 Test Item Value Reference Range Interpretation Comments CREATINE KINASE TOTAL (BEAKER) 159 U/L 29-200 (test code = 380) CREATINE KINASE-MB (BEAKER) (test 0.8 ng/mL 0.0-6.6 code = 750) CREATINE KINASE-MB INDEX (BEAKER) 0.5 % (test code = 395) CK-MB Reference Range:<6.7 Normal6.7-10.0 Borderline>10.0 AbnormalRAD, CHEST, 1 VIEW, NON [id number] 21:52:00Reason for exam:- >CHEST PAINShould this be [...] MDR[employer] Verified Date/Time: 01/25/2017 21:52:27 Reading Location: [address] Consult Reading Room TROPONIN [id number] 21:27:00 Test Item Value Reference Range Interpretation [...] (test code = 2801) HEPATITIS B SURFACE [id number] 15:55:00 Test Item Value Reference Range Interpretation Comments HEPATITIS B SURFACE ANTIGEN (2) Nonreactive Nonreactive (BEAKER) (test code = 2585) BASIC METABOLIC [id number] 07:30:00 Test Item Value Reference Range Interpretation [...] S NOT APPLICABLE FOR DIALYSIS PATIEN TS. [id number] 07:18:00 Test Item Value Reference Range Interpretation Comments PHOSPHORUS (BEAKER) (test code = 5.9 mg/dL 2.3-4.7 H 604) [id number] 07:18:00 Test Item Value Reference Range Interpretation Comments MAGNESIUM (BEAKER) (test code = 2.2 mg/dL 1.6-2.6 627) PROTHROMBIN [id number] 06:43:00 Test Item Value Reference Range Interpretation [...] = 2801) CBC W/PLT COUNT & AUTO [id number] 14:36:00 Test Item Value Reference Range Interpretation [...] code 1+ few = 480) BASIC METABOLIC [id number] 07:18:00 Test Item Value Reference Range Interpretation [...] S NOT APPLICABLE FOR DIALYSIS PATIEN TS. [id number] 07:11:00 Test Item Value Reference Range Interpretation Comments PHOSPHORUS (BEAKER) (test code = 3.7 mg/dL 2.3-4.7 604) CBC W/PLT COUNT & AUTO [id number] 11:27:00 Test Item Value Reference Range Interpretation [...] 1+ few code = 478) BASIC METABOLIC [id number] 08:40:00 Test Item Value Reference Range Interpretation [...] 697) EGFR (BEAKER) (test 11 mL/min/1.73 ESTIMA MICHELLE GFR IS code = 1092) sq m NOT ACCURATE CREATININE CLEARANCE IN PREDICTING GLOMERULAR FILTRATION RATE . ESTIMATED GFR I S NOT APPLICABLE FOR DIALYSIS PATIEN TS. [id number] 08:38:00 Test Item Value Reference Range Interpretation Comments PHOSPHORUS (BEAKER) (test code = 4.0 mg/dL 2.3-4.7 604) CBC W/PLT COUNT & AUTO [id number] 13:06:00 Test Item Value Reference Range Interpretation [...] (test code = Normal 762) HEPATITIS B [id number] 11:49:00 Test Item Value Reference Range Interpretation Comments HEPATITIS B CORE TOTAL ANTIBODY Nonreactive Nonreactive (BEAKER) (test code = 497) HEPATITIS B SURFACE ANTIBODY < mIU/mL <8.0 (BEAKER) (test code = 647) HEPATITIS B SURFACE ANTIGEN (2) Nonreactive Nonreactive (BEAKER) (test code = 2585) [id number] 11:19:00 Test Item Value Reference Range Interpretation [...] for patients with mechanical heart valves.BASIC METABOLIC [id number] 07:32:00 Test Item Value Reference Range Interpretation [...] S NOT APPLICABLE FOR DIALYSIS PATIEN TS. [id number] 07:17:00 Test Item Value Reference Range Interpretation Comments PHOSPHORUS (BEAKER) (test code = 3.3 mg/dL 2.3-4.7 604) [id number] 07:17:00 Test Item Value Reference Range Interpretation Comments MAGNESIUM (BEAKER) (test code = 2.0 mg/dL 1.6-2.6 627) HEPATIC FUNCTION [id number] 07:17:00 Test Item Value Reference Range Interpretation [...] = 13 U/L 6-55 347) COMPREHENSIVE METABOLIC [id number] 17:39:00 Test Item Value Reference Range Interpretation [...] S NOT APPLICABLE FOR DIALYSIS PATIEN TS. [id number] 17:36:00 Test Item Value Reference Range Interpretation Comments MAGNESIUM (BEAKER) 2.2 mg/dL 1.6-2.6 Specimen slightly (test code = 627) hemolyzed CBC W/PLT COUNT & AUTO [id number] 16:57:00 Test Item Value Reference Range Interpretation [...] 0.00-0.20 (test code = 417) 0.00COMPREHENSIVE METABOLIC [id number] 06:52:00 Test Item Value Reference Range Interpretation [...] 347) EGFR (BEAKER) (test 11 mL/min/1.73 ESTIMA MICHELLE GFR IS code = 1092) sq m NOT ACCURATE CREATININE CLEARANCE IN PREDICTING GLOMERULAR FILTRATION RATE . ESTIMATED GFR I S NOT APPLICABLE FOR DIALYSIS PATIEN TS. URIC [id number] 06:51:00 Test Item Value Reference Range Interpretation Comments URIC ACID (BEAKER) (test code = 8.2 mg/dL 2.6-7.2 H 773) LACTATE DEHYDROGENASE (LDH)2016-08-07 06:51:00 Test Item Value Reference Range Interpretation Comments LACTATE DEHYDROGENASE (BEAKER) (test 233 U/L 125-220 H code = 635) CBC W/PLT COUNT & AUTO [id number] 15:03:00 Test Item Value Reference Range Interpretation [...] (test code = Normal 762) COMPREHENSIVE METABOLIC [id number] 06:13:00 Test Item Value Reference Range Interpretation [...] 347) EGFR (BEAKER) (test 14 mL/min/1.73 ESTIMA MICHELLE GFR IS code = 1092) sq m NOT ACCURATE CREATININE CLEARANCE IN PREDICTING GLOMERULAR FILTRATION RATE . ESTIMATED GFR I S NOT APPLICABLE FOR DIALYSIS PATIEN TS. URIC [id number] 06:05:00 Test Item Value Reference Range Interpretation Comments URIC ACID (BEAKER) (test code = 5.3 mg/dL 2.6-7.2 773) [id number] 06:05:00 Test Item Value Reference Range Interpretation Comments MAGNESIUM (BEAKER) (test code = 1.9 mg/dL 1.6-2.6 627) [id number] 06:05:00 Test Item Value Reference Range Interpretation Comments PHOSPHORUS (BEAKER) (test code = 3.8 mg/dL 2.3-4.7 604) LACTATE DEHYDROGENASE (LDH)2016-08-06 06:05:00 Test Item Value Reference Range Interpretation Comments LACTATE DEHYDROGENASE (BEAKER) (test 248 U/L 125-220 H code = 635) [id number] 06:51:00 Test Item Value Reference Range Interpretation Comments PHOSPHORUS (BEAKER) (test code = 3.5 mg/dL 2.3-4.7 604) [id number] 06:51:00 Test Item Value Reference Range Interpretation Comments MAGNESIUM (BEAKER) (test code = 1.9 mg/dL 1.6-2.6 627) BASIC METABOLIC [id number] 06:51:00 Test Item Value Reference Range Interpretation [...] 697) EGFR (BEAKER) (test 10 mL/min/1.73 ESTIMA MICHELLE GFR IS code = 1092) sq m NOT ACCURATE CREATININE CLEARANCE IN PREDICTING GLOMERULAR FILTRATION RATE . ESTIMATED GFR I S NOT APPLICABLE FOR DIALYSIS PATIEN TS. CBC W/PLT COUNT & AUTO [id number] 06:37:00 Test Item Value Reference Range Interpretation [...] 0.00-0.20 (test code = 417) 0.00BASIC METABOLIC [id number] 12:49:00 Test Item Value Reference Range Interpretation [...] 697) EGFR (BEAKER) (test 11 mL/min/1.73 ESTIMA MICHELLE GFR IS code = 1092) sq m NOT ACCURATE CREATININE CLEARANCE IN PREDICTING GLOMERULAR FILTRATION RATE . ESTIMATED GFR I S NOT APPLICABLE FOR DIALYSIS PATIEN TS. URIC [id number] 12:46:00 Test Item Value Reference Range Interpretation Comments URIC ACID (BEAKER) (test code = 5.2 mg/dL 2.6-7.2 773) [id number] 12:46:00 Test Item Value Reference Range Interpretation Comments MAGNESIUM (BEAKER) (test code = 2.1 mg/dL 1.6-2.6 627) [id number] 12:46:00 Test Item Value Reference Range Interpretation Comments PHOSPHORUS (BEAKER) (test code = 3.8 mg/dL 2.3-4.7 604) HEPATIC FUNCTION [id number] 12:46:00 Test Item Value Reference Range Interpretation [...] = 635) CBC W/PLT COUNT & AUTO [id number] 12:27:00 Test Item Value Reference Range Interpretation [...] (test code = 417) 0.00HEPATITIS B SURFACE [id number] 14:54:00 Test Item Value Reference Range Interpretation Comments HEPATITIS B SURFACE ANTIGEN (2) Nonreactive Nonreactive (BEAKER) (test code = 2585) CBC W/PLT COUNT & AUTO [id number] 10:30:00 Test Item Value Reference Range Interpretation [...] code = 1+ few 481) COMPREHENSIVE METABOLIC [id number] 06:29:00 Test Item Value Reference Range Interpretation [...] 347) EGFR (BEAKER) (test 10 mL/min/1.73 ESTIMA MICHELLE GFR IS code = 1092) sq m NOT ACCURATE CREATININE CLEARANCE IN PREDICTING GLOMERULAR FILTRATION RATE . ESTIMATED GFR I S NOT APPLICABLE FOR DIALYSIS PATIEN TS. LACTATE DEHYDROGENASE (LDH)2016-07-19 06:28:00 Test Item Value Reference Range Interpretation Comments LACTATE DEHYDROGENASE (BEAKER) (test 199 U/L 125-220 code = 635) CBC W/PLT COUNT & AUTO [id number] 06:53:00 Test Item Value Reference Range Interpretation [...] 0.00-0.20 (test code = 417) 0.00COMPREHENSIVE METABOLIC [id number] 06:47:00 Test Item Value Reference Range Interpretation [...] 347) EGFR (BEAKER) (test 12 mL/min/1.73 ESTIMA MICHELLE GFR IS code = 1092) sq m NOT ACCURATE CREATININE CLEARANCE IN PREDICTING GLOMERULAR FILTRATION RATE . ESTIMATED GFR I S NOT APPLICABLE FOR DIALYSIS PATIEN TS. LACTATE DEHYDROGENASE (LDH)2016-07-18 06:46:00 Test Item Value Reference Range Interpretation Comments LACTATE DEHYDROGENASE (BEAKER) (test 227 U/L 125-220 H code = 635) CBC W/PLT COUNT & AUTO [id number] 11:26:00 Test Item Value Reference Range Interpretation [...] (test code = Normal 762) BASIC METABOLIC [id number] 05:47:00 Test Item Value Reference Range Interpretation [...] 697) EGFR (BEAKER) (test 10 mL/min/1.73 ESTIMA MICHELLE GFR IS code = 1092) sq m NOT ACCURATE CREATININE CLEARANCE IN PREDICTING GLOMERULAR FILTRATION RATE . ESTIMATED GFR I S NOT APPLICABLE FOR DIALYSIS PATIEN TS. URIC [id number] 05:44:00 Test Item Value Reference Range Interpretation Comments URIC ACID (BEAKER) (test code = 9.4 mg/dL 2.6-7.2 H 773) [id number] 05:44:00 Test Item Value Reference Range Interpretation Comments PHOSPHORUS (BEAKER) (test code = 5.1 mg/dL 2.3-4.7 H 604) HEPATIC FUNCTION [id number] 05:44:00 Test Item Value Reference Range Interpretation [...] = 635) CBC W/PLT COUNT & AUTO [id number] 11:11:00 Test Item Value Reference Range Interpretation [...] 1+ few code = 478) BASIC METABOLIC [id number] 07:05:00 Test Item Value Reference Range Interpretation [...] 697) EGFR (BEAKER) (test 13 mL/min/1.73 ESTIMA MICHELLE GFR IS code = 1092) sq m NOT ACCURATE CREATININE CLEARANCE IN PREDICTING GLOMERULAR FILTRATION RATE . ESTIMATED GFR I S NOT APPLICABLE FOR DIALYSIS PATIEN TS. URIC [id number] 07:04:00 Test Item Value Reference Range Interpretation Comments URIC ACID (BEAKER) (test code = 4.6 mg/dL 2.6-7.2 773) [id number] 07:04:00 Test Item Value Reference Range Interpretation Comments PHOSPHORUS (BEAKER) (test code = 3.1 mg/dL 2.3-4.7 604) HEPATIC FUNCTION [id number] 07:04:00 Test Item Value Reference Range Interpretation [...] = 635) CBC W/PLT COUNT & AUTO [id number] 06:57:00 Test Item Value Reference Range Interpretation [...] (BEAKER) (test code = 1351) BASIC METABOLIC [id number] 06:09:00 Test Item Value Reference Range Interpretation [...] 697) EGFR (BEAKER) (test 10 mL/min/1.73 ESTIMA MICHELLE GFR IS code = 1092) sq m NOT ACCURATE CREATININE CLEARANCE IN PREDICTING GLOMERULAR FILTRATION RATE . ESTIMATED GFR I S NOT APPLICABLE FOR DIALYSIS PATIEN TS. URIC [id number] 06:05:00 Test Item Value Reference Range Interpretation Comments URIC ACID (BEAKER) (test code = 6.5 mg/dL 2.6-7.2 773) [id number] 06:05:00 Test Item Value Reference Range Interpretation Comments PHOSPHORUS (BEAKER) (test code = 5.0 mg/dL 2.3-4.7 H 604) HEPATIC FUNCTION [id number] 06:05:00 Test Item Value Reference Range Interpretation [...] 125-220 H code = 635) URINALYSIS W/ [id number] 22:18:00 Test Item Value Reference Range Interpretation [...] SOURCE(BEAKER) (test code Urine, Clean Catch = 1445) CBC W/PLT COUNT & AUTO [id number] 20:30:00 Test Item Value Reference Range Interpretation [...] 0.00-0.20 (test code = 417) 0.00COMPREHENSIVE METABOLIC [id number] 20:25:00 Test Item Value Reference Range Interpretation [...] 347) EGFR (BEAKER) (test 10 mL/min/1.73 ESTIMA MICHELLE GFR IS code = 1092) sq m NOT ACCURATE CREATININE CLEARANCE IN PREDICTING GLOMERULAR FILTRATION RATE . ESTIMATED GFR I S NOT APPLICABLE FOR DIALYSIS PATIEN TS. URIC [id number] 20:24:00 Test Item Value Reference Range Interpretation Comments URIC ACID (BEAKER) (test code = 5.8 mg/dL 2.6-7.2 773) [id number] 20:24:00 Test Item Value Reference Range Interpretation Comments PHOSPHORUS (BEAKER) (test code = 4.8 mg/dL 2.3-4.7 H 604) LACTATE DEHYDROGENASE (LDH)2016-07-14 20:24:00 Test Item Value Reference Range Interpretation Comments LACTATE DEHYDROGENASE (BEAKER) (test 245 U/L 125-220 H code = 635) PROTHROMBIN [id number] 20:12:00 Test Item Value Reference Range Interpretation Comments PROTIME (BEAKER) (test code = 13.0 seconds 11.7-14.7 759) INR (BEAKER) (test code = 370) 1.0 <=5.9 RECOMMENDED COUMADIN/WARFARIN INR THERAPY RANGESSTANDARD DOSE: 2.0 - 3.0 Includes: PROPHYLAXIS forvenous thrombosis, systemic embolization; TREATMENT for venous thrombosis and/or pulmonary embolus.HIGH RISK: Target INR is 2.5-3.5 for patients with mechanical heart valves.[id number] 15:01:00 Test Item Value Reference Range Interpretation Comments LAB AP CPT CODE (BEAKER) (test code = 78350 2749) CBC W/PLT COUNT & AUTO [id number] 14:40:00 Test Item Value Reference Range Interpretation [...] (test code = Normal 762) BASIC METABOLIC [id number] 07:34:00 Test Item Value Reference Range Interpretation [...] 697) EGFR (BEAKER) (test 11 mL/min/1.73 ESTIMA MICHELLE GFR IS code = 1092) sq m NOT ACCURATE CREATININE CLEARANCE IN PREDICTING GLOMERULAR FILTRATION RATE . ESTIMATED GFR I S NOT APPLICABLE FOR DIALYSIS PATIEN TS. [id number] 07:26:00 Test Item Value Reference Range Interpretation Comments PHOSPHORUS (BEAKER) (test code = 5.0 mg/dL 2.3-4.7 H 604) [id number] 07:26:00 Test Item Value Reference Range Interpretation Comments MAGNESIUM (BEAKER) (test code = 2.0 mg/dL 1.6-2.6 627) HEPATIC FUNCTION [id number] 07:26:00 Test Item Value Reference Range Interpretation [...] = 14 U/L 6-55 347) FLOW CYTOMETRY [id number] 11:51:00 Test Item Value Reference Range Interpretation Comments FLOW CYTOMETRY RESULT See Separate Report POINTER (BEAKER) (test code = 2758) FLOW CYTOMETRY AP CASE # [id number] (BEAKER) (test code = 2759) HEPATITIS B SURFACE [id number] 09:53:00 Test Item Value Reference Range Interpretation Comments HEPATITIS B SURFACE ANTIGEN (2) Nonreactive Nonreactive (BEAKER) (test code = 2585) FLOW [id number] 09:46:00 Test Item Value Reference Range Interpretation Comments LAB AP CPT CODE (BEAKER) (test code = 40427 2749) BASIC METABOLIC [id number] 06:27:00 Test Item Value Reference Range Interpretation [...] S NOT APPLICABLE FOR DIALYSIS PATIEN TS. [id number] 06:26:00 Test Item Value Reference Range Interpretation Comments PHOSPHORUS (BEAKER) (test code = 3.3 mg/dL 2.3-4.7 604) [id number] 06:26:00 Test Item Value Reference Range Interpretation Comments MAGNESIUM (BEAKER) (test code = 1.9 mg/dL 1.6-2.6 627) HEPATIC FUNCTION [id number] 06:26:00 Test Item Value Reference Range Interpretation [...] 6-55 347) CBC W/PLT COUNT & AUTO [id number] 06:10:00 Test Item Value Reference Range Interpretation [...] (test code = 417) 0.00CSF CELL COUNT [id number] 16:38:00 Test Item Value Reference Range Interpretation [...] NUMBER CSF (BEAKER) (test 1 code = 0600) CBC W/PLT COUNT & AUTO [id number] 06:59:00 Test Item Value Reference Range Interpretation [...] 0.00-0.20 (test code = 417) 0.00BASIC METABOLIC [id number] 06:18:00 Test Item Value Reference Range Interpretation [...] 697) EGFR (BEAKER) (test 10 mL/min/1.73 ESTIMA MICHELLE GFR IS code = 1092) sq m NOT ACCURATE CREATININE CLEARANCE IN PREDICTING GLOMERULAR FILTRATION RATE . ESTIMATED GFR I S NOT APPLICABLE FOR DIALYSIS PATIEN TS. [id number] 06:17:00 Test Item Value Reference Range Interpretation Comments PHOSPHORUS (BEAKER) (test code = 4.9 mg/dL 2.3-4.7 H 604) [id number] 06:17:00 Test Item Value Reference Range Interpretation Comments MAGNESIUM (BEAKER) (test code = 1.8 mg/dL 1.6-2.6 627) HEPATIC FUNCTION [id number] 06:17:00 Test Item Value Reference Range Interpretation [...] = 13 U/L 6-55 347) COMPREHENSIVE METABOLIC [id number] 21:37:00 Test Item Value Reference Range Interpretation [...] 347) EGFR (BEAKER) (test 11 mL/min/1.73 ESTIMA MICHELLE GFR IS code = 1092) sq m NOT ACCURATE CREATININE CLEARANCE IN PREDICTING GLOMERULAR FILTRATION RATE . ESTIMATED GFR I S NOT APPLICABLE FOR DIALYSIS PATIEN TS. URIC [id number] 21:36:00 Test Item Value Reference Range Interpretation Comments URIC ACID (BEAKER) (test code = 4.9 mg/dL 2.6-7.2 773) LACTATE DEHYDROGENASE (LDH)2016-06-23 21:36:00 Test Item Value Reference Range Interpretation Comments LACTATE DEHYDROGENASE (BEAKER) (test 223 U/L 125-220 H code = 635) PROTHROMBIN [id number] 21:23:00 Test Item Value Reference Range Interpretation [...]
[2021-09-10] MEDS ORDERED: NA CHLORIDE 0.9% 500 ML ONE (02:48)
[2021-09-10 02:55] LABS: Absolute Lymphocytes (CBC) 0.7 K/uL (0.7-4.9); Hematocrit 21.8 % (39.6-49.0); MPV 9.3 fL (7.6-11.3); RBC Red Blood Cell Count 2.56 M/uL (4.33-5.43)
[2021-09-10 03:12] LABS: BUN Blood Urea Nitrogen 34 mg/dL (7-18); Bicarbonate 30 mmol/L (21-32); Glomerular Filtration Rate 8 mL/min (=/>90); Glucose Level 103 mg/dL (74-106); Potassium 3.7 mmol/L (3.5-5.1); Sodium Level 136 mmol/L (136-145)
--- NOTE | 2021-09-10 03:27 | EDPHYS ---
Physician Documentation [facility] Name: Naldo Alejandre Age: 66 yrs Sex: Male : 1955 Arrival Date: 09/10/2021 Time: 01:38 Bed 17 Private MD: ED Physician Justus Silva HPI: 09/10 03:21 This 66 yrs old Black Male presents to ER via Ambulatory with complaints of Blood kdr Transfusion. 03:21 Patient was sent to the ED by Dr. Morris. The intent was that he would need a kdr transfusion and also dialysis. Patient is expected earlier yesterday however he states that he did not complete dialysis until about 8:00 this last evening. After that he went home had something to eat and fell asleep. Later when he woke up he came to the ED.. Onset: The symptoms/episode began/occurred at an unknown time. Severity of symptoms: At their worst the symptoms were mild in the emergency department the symptoms are unchanged. It is unknown whether or not the patient has had similar symptoms in the past. It is unknown whether or not the patient has recently seen a physician. Patient was a very poor historian. He constantly fell back to sleep. He states that he normally feels tired after dialysis.. Historical: - Home Meds: 02:26 Unknown [Active]; lidia - PMHx: 02:26 Dialysis; M,W,F; ESRD; Hyperlipidemia; Hypertension; kidney disease; LYMPHOMA; lidia - Immunization history:: Client reports receiving the 2nd dose of the Covid vaccine. - Social history:: Smoking status: Patient denies any tobacco usage or history of. ROS: 03:21 Constitutional: Patient could not stay awake longer than off to give a good history or kdr review of systems 03:21 Unable to obtain ROS due to patient being uncooperative. Exam: 03:21 Constitutional: This is a well developed, well nourished patient who is sleeping but kdr in no acute distress. Head/Face: Normocephalic, atraumatic. Eyes: Pupils equal round and reactive to light, extra-ocular motions intact. Lids and lashes normal. Conjunctiva and sclera are non-icteric and not injected. Cornea within normal limits. Periorbital areas with no swelling, redness, or edema. Neck: Trachea midline, no thyromegaly or masses palpated, and no cervical lymphadenopathy. Supple, full range of motion without nuchal rigidity, or vertebral point tenderness. No Meningismus. Chest/axilla: Normal chest wall appearance and motion. Nontender with no deformity. No lesions are appreciated. Cardiovascular: Regular rate and rhythm with a normal S1 and S2. No gallops, murmurs, or rubs. Normal PMI, no JVD. No pulse deficits. Respiratory: Lungs have equal breath sounds bilaterally, clear to auscultation and percussion. No rales, rhonchi or wheezes noted. No increased work of breathing, no retractions or nasal flaring. Abdomen/GI: Soft, non-tender, with normal bowel sounds. No distension or tympany. No guarding or rebound. No evidence of tenderness throughout. 03:21 Cardiovascular: Heart sounds: murmur, systolic, heard in the aortic area. Vital Signs: 02:27 BP 105 / 64; Pulse 84; Resp 18; Temp 98.5; Pulse Ox 98% on R/A; Pain 0/10; lidia 02:53 BP 124 / 80; Pulse 82; Resp 16; Pulse Ox 100% on R/A; Pain 0/10; lidia 03:36 BP 118 / 81; Pulse 78; Resp 16; Pulse Ox 98% on R/A; Pain 0/10; lidia MDM: 03:21 Data reviewed: vital signs, nurses notes, lab test result(s), radiologic studies. kdr Counseling: I had a detailed discussion with the patient and/or guardian regarding: the historical points, exam findings, and any diagnostic results supporting the discharge/admit diagnosis, lab results, radiology results, the need for further work-up and treatment in the hospital. ED course: Attempted to call Dr. Oreilly short time ago in order to clarify the expectation terms of transfusion and dialysis. As of this time he has not returned our call. 03:27 Patient medically screened. kdr 09/10 01:50 Order name: CBC with Diff; Complete Time: 03:09 kdr 09/10 01:50 Order name: Chem 7 kdr 09/10 01:50 Order name: Type And Screen kdr 09/10 02:43 Order name: Packed RBC Leukored EDAR 09/10 05:01 Order name: NT PRO-BNP EDAR 09/10 07:39 Order name: COVID-19 SARS RT PCR (Document "Date of Onset" if Symptomatic) bd 09/10 07:43 Order name: RAD EDMS 09/10 09:07 Order name: SARS-COV-2 RT PCR EDMS Administered Medications: No medications were administered Disposition Summary: 09/10/21 03:27 Hospitalization Ordered Hospitalization Status: Inpatient Admission kdr Provider: Vasquez Douglas Condition: Fair kdr Problem: an acute exacerbation kdr Symptoms: have improved kdr Bed/Room Type: Standard kdr Location: [facility] ER HOLD(09/10/21 03:37) cg Room Assignment: ERHOLD-(09/10/21 03:37) cg Diagnosis - Anemia, unspecified kdr - Weakness kdr - End stage renal disease kdr Forms: - Medication Reconciliation Form kdr - SBAR form kdr Signatures: Dispatcher [employer] EDMS Justus Silva MD MD kdr Verónica Osorio RN ELEONORA cg Michelle Crow RN RN bo Brown, Sophia, PA PA sb3 Corrections: (The following items were deleted from the chart) 03:37 03:27 Telemetry/MedSurg (Inpatient) kdr cg 03:37 03:27 kdr cg
--- NOTE | 2021-09-10 03:27 | ER ---
Nurse's Notes [facility] Name: Naldo Alejandre Age: 66 yrs Sex: Male : 1955 Arrival Date: 09/10/2021 Time: 01:38 Bed 17 Private MD: Diagnosis: Anemia, unspecified;Weakness;End stage renal disease Presentation: 09/10 01:51 Chief complaint: Patient states: Reports instructed by Dr. Alvarado to come to ED for lp1 blood transfusion, reports dialysis yesterday, 3L of fluid removed; States symptoms of fatigue. Coronavirus screen: At this time, the client does not indicate any symptoms associated with coronavirus-19. Ebola Screen: No symptoms or risks identified at this time. Risk Assessment: Do you want to hurt yourself or someone else? Patient reports no desire to harm self or others. Onset of symptoms was September 10, 2021. 01:51 Method Of Arrival: Ambulatory lp1 02:28 Acuity: TERRI 3 lidia 02:30 Initial Sepsis Screen: Does the patient meet any 2 criteria? No. Patient's initial lidia sepsis screen is negative. Does the patient have a suspected source of infection? No. Patient's initial sepsis screen is negative. Triage Assessment: 02:29 General: Appears in no apparent distress. lidia 02:29 General: Behavior is calm, cooperative. lidia 02:30 Pain: Denies pain. lidia Historical: - Home Meds: 02:26 Unknown [Active]; lidia - PMHx: 02:26 Dialysis; M,W,F; ESRD; Hyperlipidemia; Hypertension; kidney disease; LYMPHOMA; lidai - Immunization history:: Client reports receiving the 2nd dose of the Covid vaccine. - Social history:: Smoking status: Patient denies any tobacco usage or history of. Screenin:27 Abuse screen: Denies threats or abuse. Denies injuries from another. Nutritional lidia screening: No deficits noted. Tuberculosis screening: No symptoms or risk factors identified. Fall Risk None identified. Assessment: 02:24 Reassessment: Patient appears in no apparent distress at this time. Per the pt's lidia report, he was instructed to come to the ER for a blood transfusion, having been dialyzed yesterday. The pt is in NAD. He reports "feeling weak" after dialysis, but adds,"I always do". The pt is cooperative. 02:28 Reassessment: The pt has an AV fistula to his right arm. +thrill and bruit. lidia 03:36 Reassessment: Awaiting transfusion orders. The pt remains in NAD. He is resting and lidia remains on the bedside monitor. 05:23 Reassessment: The pt is now an ER Hold pt, so documentation is in [facility]. lidia 12:50 Reassessment: PT MALINDA TO DIALYSIS. bp Vital Signs: 02:27 BP 105 / 64; Pulse 84; Resp 18; Temp 98.5; Pulse Ox 98% on R/A; Pain 0/10; lidia 02:53 BP 124 / 80; Pulse 82; Resp 16; Pulse Ox 100% on R/A; Pain 0/10; lidia 03:36 BP 118 / 81; Pulse 78; Resp 16; Pulse Ox 98% on R/A; Pain 0/10; lidia ED Course: 01:38 Patient arrived in ED. bp1 01:47 Justus Silva MD is Attending Physician. kdr 01:51 Arm band placed on. lp1 02:01 Michelle Crow, RN is Primary Nurse. lidia 02:28 No provider procedures requiring assistance completed. lidia 02:29 Triage completed. lidia 02:29 Placed in gown. Bed in low position. Pulse ox on. NIBP on. lidia 02:31 Chem 7 Sent. lidia 02:31 Type And Screen Sent. lidia 02:31 CBC with Diff Sent. lidia 02:31 Inserted saline lock: 18 gauge in left forearm, using aseptic technique. Blood lidia collected. 02:32 Inserted saline lock: 18 gauge in left forearm, using aseptic technique. ds4 02:44 CBC with Diff Sent. lidia 02:44 Type And Screen Sent. lidia 02:44 Chem 7 Sent. lidia 02:44 Packed RBC Leukored Sent. lidia 03:26 Vasquez Douglas MD is Hospitalizing Provider. kdr 03:35 Door closed. Lights dimmed. Warm blanket given. lidia 07:10 Primary Nurse role handed off by Michelle Crow, RN bp 07:10 Miller Romero, ELEONORA is Primary Nurse. bp 12:50 Patient admitted, IV remains in place. bp Administered Medications: No medications were administered Outcome: 02:29 Condition: stable lidia 03:27 Decision to Hospitalize by Provider. kdr 05:23 Admitted to ER Hold. Please see [facility] for further documentation. lidia 12:54 Patient left the ED. bp Signatures: Justus Silva MD MD kdr Justina Villegas RN RN lp1 Mustapha Gan ds4 Miller Romero RN RN bp Bethany Evans [facility] Michelle Crow RN RN lidia
--- NOTE | 2021-09-10 03:33 | P.HP ---
Certification for Inpatient Patient admitted to: Observation With expected LOS: <2 Midnights Patient will require the following post-hospital care: None Practitioner: I am a practitioner with admitting privileges, knowledge of patient current condition, hospital course, and medical plan of care. Services: Services provided to patient in accordance with Admission requirements found in Title 42 Section 412.3 of the Code of Federal Regulations <Emily Torres - Last Filed: 09/10/21 04:24> Patient History Date of Service: 09/10/21 Reason for admission: Anemia, ESRD History of Present Illness: Patient is a 66-year-old -[place] male with past medical history of ESRD on dialysis Tuesday through Tuesday, hypertension, hyperlipidemia who presented to the ED after being sent by Dr. Alvarado for blood transfusion. Patient is a poor historian but it seems that patient was supposed to come to the ED for transfusion right after dialysis last night but went home and went to sleep. He woke up feeling weak and decided to come in. hemoglobin of 7 (lower than his baseline) and hct 21.8. Patient came with an order sheet for 2 units PRBC and to have dialysis following. Will transfuse and admit patient for observation. Home medications list reviewed: Yes - Past Medical/Surgical History Diabetic: No -: ESRD/HD- MWF -: HTN -: BPH -: Obesity -: Possible obstructive sleep apnea -: History of lymphoma -: Hyperlipidemia -: Tobacco abuse -: Right hip and pelvic surgery -: Dialysis catheter placement -: Port-A-Cath placement Psychosocial/ Personal History: The patient is and has 3 children. - Family History Father -: Hypertension, Other (see notes) Notes: Multiple sclerosis - Social History Smoking Status: Current some day smoker Alcohol use: No CD- Drugs: No Caffeine use: Yes Place of Residence: Home <BrianEmily - Last Filed: 09/10/21 04:24> Date of Service: 09/10/21 <Vasquez Douglas - Last Filed: 10/01/21 23:48> Allergies No Known Allergies Allergy (Verified 09/10/21 04:02) Home Medications: Metoprolol Tartrate 100 mg PO DAILY 01/03/18 Nifedipine Xl [Procardia XL*] 90 mg PO BEDTIME 01/03/18 Terazosin HCl [Hytrin*] 5 mg PO BID 01/03/18 Hydralazine HCl 50 mg PO BEDTIME 01/04/18 Pantoprazole [Protonix Tab*] 40 mg PO BID 08/21/20 Fluticasone/Umeclidin/Vilanter [Trelegy Ellipta 100-62.5-25] 1 each IH DAILY 08/22/20 Folic Acid 2 tab PO DAILY 08/22/20 Lovastatin 20 mg PO BEDTIME 08/22/20 Review of Systems 10-point ROS is otherwise unremarkable General: Weakness <BrianEmily - Last Filed: 09/10/21 04:24> Physical Examination - Physical Exam General: In no apparent distress, Oriented x3 HEENT: Atraumatic, PERRLA, Mucous membr. moist/pink, EOMI, Sclerae nonicteric Neck: Supple, 2+ carotid pulse no bruit, No LAD, Without JVD or thyroid abnormality Respiratory: Clear to auscultation bilaterally, Normal air movement Cardiovascular: Regular rate/rhythm, Normal S1 S2 Gastrointestinal: Normal bowel sounds, No tenderness Musculoskeletal: No tenderness Integumentary: No rashes Neurological: Normal speech, Normal strength at 5/5 x4 extr, Normal tone, Normal affect - Studies Laboratory Data (last 24 hrs) 09/10/21 02:00: Sodium 136, Potassium 3.7, BUN 34 H, Creatinine 8.41 H*, Glucose 103 09/10/21 02:00: WBC 6.3, Hgb 7.0 L, Hct 21.8 L, Plt Count 233 <Emily Torres - Last Filed: 09/10/21 04:24> Assessment and Plan - Problems (Diagnosis) (1) ESRD (end stage renal disease) Onset Date: 01/04/18 Status: Chronic (2) Anemia Onset Date: 01/21/17 Status: Chronic Qualifiers: Anemia type: due to chronic kidney disease Chronic kidney disease stage: on chronic dialysis Qualified Code(s): N18.6 - End stage renal disease; D63.1 - Anemia in chronic kidney disease; Z99.2 - Dependence on renal dialysis (3) HTN (hypertension) Onset Date: 01/21/17 Status: Chronic Qualifiers: Hypertension type: primary hypertension Qualified Code(s): I10 - Essential (primary) hypertension (4) Hyperlipidemia Onset Date: 01/21/17 Status: Chronic Qualifiers: Hyperlipidemia type: mixed hyperlipidemia Qualified Code(s): E78.2 - Mixed hyperlipidemia (5) Nicotine dependence Status: Chronic Qualifiers: Nicotine product type: cigarettes Substance use status: uncomplicated Qualified Code(s): F17.210 - Nicotine dependence, cigarettes, uncomplicated - Plan -Hemoglobin 7 and hematocrit 21.8 -2 units PRBC ordered -Follow-up posttransfusion protocol -Dialysis ordered for after transfusion -Alroumoh consulted -Monitor and control blood pressure. Hydralazine ordered PRN -Heparin for VTE ppx Discharge Plan: Home Plan to discharge in: 48 Hours - Advance Directives Does patient have a Living Will: Yes Does patient have a Durable POA for Healthcare: Yes - Code Status/Comfort Care Code Status Assessed: Yes (Full) Critical Care: No Time Spent Managing Pts Care (In Minutes): 70 <Emily Torres - Last Filed: 09/10/21 04:24> Date of Service: 09/10/21 Subjective: HPI as mentioned above Physical Examination: Vitals: Afebrile vital signs are stable Physical exam: Cardiovascular: Within normal limits. Lungs: Within normal limits Abdomen: Within normal limits Neuro: Awake, alert, oriented to person place and time Assessment: 1. Anemia 2. ESRD Plan: 1. Continue with current plan of care as mentioned above <Vasquez Douglas - Last Filed: 10/01/21 23:48>
[2021-09-10] MEDS ORDERED: ACETAMINOPHEN 500 MG TAB PO PRN (03:54)
[2021-09-10] MEDS ORDERED: ONDANSETRON 4 MG/2 ML VIAL IV PRN (03:54)
[2021-09-10] MEDS ORDERED: ACETAMINOPHEN 325 MG TABLET ONE (03:56)
[2021-09-10] MEDS ORDERED: DIPHENHYDRAMINE 50 MG/ML VIAL ONE (03:56)
[2021-09-10] MEDS ORDERED: DIPHENHYDRAMINE 50 MG/ML VIAL IV ONE (04:06)
[2021-09-10] MEDS ORDERED: ACETAMINOPHEN 325 MG TABLET PO ONE (04:06)
[2021-09-10 05:00] LABS: NT PRO-BNP > 175000 pg/mL (<125)
[2021-09-10 05:09] VITALS: BMI 30.2
--- NOTE | 2021-09-10 07:43 | RAD REPORT ---
EXAM DESCRIPTION: Jasmyne Single View09/10/2021 6:06 am CLINICAL HISTORY: Cough COMPARISON: 2020 FINDINGS: Mild bilateral pulmonary opacities The heart is mildly to moderately enlarged IMPRESSION: Mild bilateral pulmonary opacities probably pulmonary edema.
[2021-09-10] MEDS ORDERED: NA CHLORIDE 0.9% 250 ML ONE (08:29)
[2021-09-10] MEDS ORDERED: HEPARIN 5000 UNIT/ML 1 ML VIAL SQ SCH (09:00)
[2021-09-10 09:22] VITALS: BP 147/98; TEMP 98.3
[2021-09-10] MEDS ORDERED: EPOETIN ALFA-EPBX 10,000 UNIT/ML VIAL SQ SCH (13:00)
[2021-09-10 13:07] VITALS: O2SAT 98
--- NOTE | 2021-09-10 16:32 | CON ---
Date of Consultation: 09/10/2021 Reason For Consultation: Elevated BUN and creatinine, fluid over volume, anemia, end-stage renal disease. History Of Present Illness: This is a pleasant, poor compliant 66-year-old black gentleman with significant past medical history of end-stage renal disease, on hemodialysis Tuesday, Tuesday, Tuesday at [facility] through AV fistula, hypertension, prostate hypertrophy, obstructive sleep apnea, hyperlipidemia, GI bleed with peptic ulcer disease, the patient is poor compliant, recently admitted last week to [facility] with GI bleed, symptomatic anemia, received 3 units of blood transfusion, came to the unit. Yesterday when we saw him, his hemoglobin back on Tuesday, after 3 units of transfusion still 7. The patient with shortness of breath with significant edema. For that reason, we directed the patient to the hospital. In the hospital, the patient received 1 unit, still has shortness of breath. Past Medical History: Includes; 1. End-stage renal disease, on hemodialysis, Tuesday, Tuesday, Tuesday. 2. Hypertension. 3. Hyperlipidemia. 4. Obstructive sleep apnea. 5. Benign prostate hypertrophy. Past Surgical History: Includes; 1. PermCath. 2. EGD. Family History: Positive for hypertension. Social History: Ex-smoker. Denied alcohol. Denied drugs abuse. Allergies: NO KNOWN DRUG ALLERGIES. Home Medications: Include pantoprazole, nifedipine, hydralazine, folic acid. Current Medications: In the hospital include Zofran and Tylenol. Review of Systems: Head and Neck: No red eye. No ear pain. GI: Has epigastric pain. : No polyuria. No dysuria. No hematuria. Bioinformatics Research Technician: Not applicable. Respiratory: Has shortness of breath. Cardiovascular: Has orthopnea. Endocrine: No polydipsia. Skin: No rash. Neuro: Has neuropathy. Musculoskeletal: General fatigue. Physical Examination: General: When I saw the patient; the patient is lying in bed, shortness of breath. Vital Signs: Blood pressure 147/98, pulse of 84, afebrile. Chest: Crackles bilateral. Heart: S1, S2. Systolic murmur. Abdomen: Soft, nontender. Extremities: +3 edema. Neurologic: Alert. No focality. Laboratory Data: Chest x-ray, cardiomegaly with congestion. WBC 6.3, H and H 7/21.8. Sodium 136, potassium 3.7, bicarb 30, BUN 34, creatinine 8.4, calcium 8.2. Assessment And Plan: 1. End-stage renal disease, over volume with symptomatic anemia. We will arrange for extra session of dialysis sequential today and we will arrange for blood transfusion with that. We will resume ABDOUL. 2. Hypertension. We will utilize blood pressure for more ultrafiltration, keep holding any blood pressure medications for the time being. 3. Anemia secondary to chronic kidney disease/gastrointestinal bleed. We will arrange for blood transfusion. The patient received 1. We will arrange for another 1 on the dialysis. We will resume ABDOUL. Follow up with GI as outpatient. 4. Congestive heart failure with exacerbation. We will try to establish better volume control with dialysis. Thank you, Dr. Douglas for allowing us to participate in the care of your patient. Time spent examining the patient, reviewing the data, examined the patient [id number], reviewing Cardiology and lab data, placing order, discussing the case with staff member including ER team and hospitalist and dialysis nurse 65 minutes. HAILE Voice ID: [id number] Report ID: [id number] HEMANTH
[2021-09-10] MEDS ORDERED: ATORVASTATIN 10 MG TAB PO SCH (21:00)
[2021-09-10] MEDS ORDERED: NIFEDIPINE XL 90 MG TABLET PO SCH (21:00)
[2021-09-10] MEDS ORDERED: PANTOPRAZOLE 40MG TABLET PO SCH (21:00)
[2021-09-10] MEDS ORDERED: HOME MED 1 EA UNK (Lovastatin [Lovastatin] 20 MG Tablet) PO SCH (21:00)
[2021-09-10] MEDS ORDERED: TERAZOSIN HCL 5 MG CAP PO SCH (21:00)
[2021-09-10] MEDS ORDERED: HYDRALAZINE HCL 25 MG TABLET PO SCH (21:00)
[2021-09-11] MEDS ORDERED: Fluticasone/Umeclidin/Vilanter [Trelegy Ellipta 100-62.5-25] Blst.W.Dev IH SCH (09:00)
[2021-09-11] MEDS ORDERED: METOPROLOL TAR 50 MG TAB PO SCH (09:00)
[2021-09-11] MEDS ORDERED: FOLIC ACID 1 MG TABLET PO SCH (09:00)
--- NOTE | 2021-10-03 04:53 | P.DS ---
Discharge Date: 09/10/21 Disposition: ROUTINE DISCHARGE Discharge Condition: GOOD Reason for Admission: Anemia, ESRD Consultations: Nephrology Brief History of Present Illness: Patient is a 66-year-old -[place] male with past medical history of ESRD on dialysis Tuesday through Tuesday, hypertension, hyperlipidemia who presented to the ED after being sent by Dr. Alvarado for blood transfusion. Patient is a poor historian but it seems that patient was supposed to come to the ED for transfusion right after dialysis last night but went home and went to sleep. He woke up feeling weak and decided to come in. hemoglobin of 7 (lower than his baseline) and hct 21.8. Patient came with an order sheet for 2 units PRBC and to have dialysis following. Will transfuse and admit patient for observation. Hospital Course: Patient was given 2 units of packed red blood cells during hemodialysis. Patient is clinically doing much better. At this time, patient is stable for discharge home with outpatient follow-up. Vital Signs/Physical Exam: Temp Pulse Resp BP Pulse Ox 98.3 F 84 24 H 147/98 H 98 09/10/21 08:00 09/10/21 08:00 09/10/21 08:00 09/10/21 08:00 09/10/21 08:00 General: Alert, In no apparent distress, Oriented x3 Laboratory Data at Discharge: WBC 6.3 K/uL (4.3-10.9) 09/10/21 02:00 Hgb 7.0 g/dL (13.6-17.9) L 09/10/21 02:00 Hct 21.8 % (39.6-49.0) L 09/10/21 02:00 Plt Count 233 K/uL (152-406) 09/10/21 02:00 Sodium 136 mmol/L (136-145) 09/10/21 02:00 Potassium 3.7 mmol/L (3.5-5.1) 09/10/21 02:00 BUN 34 mg/dL (7-18) H 09/10/21 02:00 Creatinine 8.41 mg/dL (0.55-1.3) H* 09/10/21 02:00 Glucose 103 mg/dL (74-106) 09/10/21 02:00 Home Medications: Metoprolol Tartrate 100 mg PO DAILY 01/03/18 Nifedipine Xl [Procardia XL*] 90 mg PO BEDTIME 01/03/18 Terazosin HCl [Hytrin*] 5 mg PO BID 01/03/18 Hydralazine HCl 50 mg PO BEDTIME 01/04/18 Pantoprazole [Protonix Tab*] 40 mg PO BID 08/21/20 Fluticasone/Umeclidin/Vilanter [Trelegy Ellipta 100-62.5-25] 1 each IH DAILY Folic Acid 2 tab PO DAILY 08/22/20 Lovastatin 20 mg PO BEDTIME 08/22/20 Physician Discharge Instructions: -DC IV and DC home -Follow-up with PCP in 1 to 2 weeks -Follow-up with Nephrology in 1 to 2 weeks -Please call Dr. Douglas at [phone] if any questions regarding hospital stay -Please call nursing station at [phone] if any nursing or medication questi ons -Return to the emergency room if symptoms worsen Diet: Renal Activity: Fall precautions Followup: Mendez Montez MD [Primary Care Provider] - Time spent managing pt's care (in minutes): 35
== END 2021-09-10 17:50 | disposition home or self-care (01) ==
LOC: ER 01:34 → INTOOBSV 03:44 → ERHOLD 03:44
PROVIDERS: ADMIT Hospitalist; ATTEND Hospitalist
PROC: 30233N1 Transfusion of Nonautologous Red Blood Cells into Peripheral Vein, Percutaneous Approach (ICD-10-PCS; principal; 2021-09-10)
DX: I13.2 Hypertensive heart and chronic kidney disease with heart failure and with stage 5 chronic kidney disease, or end stage renal disease (principal); N18.6 End stage renal disease; I50.9 Heart failure, unspecified; D63.1 Anemia in chronic kidney disease; Z99.2 Dependence on renal dialysis; K27.4 Chronic or unspecified peptic ulcer, site unspecified, with hemorrhage; E78.2 Mixed hyperlipidemia; N40.0 Benign prostatic hyperplasia without lower urinary tract symptoms; G47.33 Obstructive sleep apnea (adult) (pediatric); R01.1 Cardiac murmur, unspecified; E66.9 Obesity, unspecified; Z68.30 Body mass index [BMI] 30.0-30.9, adult; F17.210 Nicotine dependence, cigarettes, uncomplicated; Z85.72 Personal history of non-Hodgkin lymphomas; Z79.899 Other long term (current) drug therapy; Z20.822 Contact with and (suspected) exposure to COVID-19; Z82.49 Family history of ischemic heart disease and other diseases of the circulatory system; Z82.0 Family history of epilepsy and other diseases of the nervous system
CPT/HCPCS: 36430; 85025; 80048; 36415; 86900; 86850; 86901; 83880; 71045; 90935; 99285; U0003; J1200; J1644; Q5106; G0378; P9016 ×2; J7050; J7040

== ENCOUNTER 2022-03-13 05:55 | Emergency (ER) | payer OTHER ==
--- OUTSIDE RECORDS SUMMARY | 2022-03-13 06:20 | XMS REPORT | Continuity of Care Document ---
:[address] [facility] t Address [address] [place] [address] Care Team Providers Name Role Phone JAYY HORVATH JR Primary Care Physician Unavailable YAZAN BARRY Attending Clinician Unavailable Michelle Chau RN Attending Clinician Unavailable Jacklyn Anthony RN Attending Clinician Unavailable Nesha Irizarry Attending Clinician Unavailable JAVIER KIM Attending Clinician Unavailable Doctor Unassigned, [place] Attending Clinician Unavailable Kayla Chino MD Attending Clinician KAYLA CHINO Attending Clinician Unavailable Pema Fowler Attending Clinician Unavailable Funmilayo Peralta MD Attending Clinician Rain NGUYEN, Sidra Attending Clinician SIDRA CLARKE Attending Clinician Unavailable Rosie NGUYEN, Jarrell Attending Clinician Magalys NGUYEN, Ji Cordero Attending Clinician FUNMILAYO PERALTA Attending Clinician Unavailable DIYA ROLON Attending Clinician Unavailable Gonzales NGUYEN, Diya Attending Clinician Justus Oconnor Attending Clinician JUSTUS KIRKPATRICK Attending Clinician Unavailable ERNESTINA VELARDE Attending Clinician Unavailable Kalen Hurtado MD Attending Clinician Chandra Calderon MD Attending Clinician [phone] Sara Reynaga MD Attending Clinician CHANDRA CALDERON Attending Clinician Unavailable KALEN HURTADO Attending Clinician Unavailable JASMIN JOVEL Attending Clinician Unavailable ANDREW GRULLON Attending Clinician Unavailable ARIAN MAUNEL Attending Clinician Unavailable ASHIA WORKMAN Attending Clinician Unavailable PETER FAGAN Attending Clinician Unavailable DENI RUBI Attending Clinician Unavailable NICO GOLDMAN Attending Clinician Unavailable TOBY CAO Attending Clinician Unavailable YAZAN BARRY Admitting Clinician Unavailable FUNMILAYO PERALTA Admitting Clinician Unavailable DIYA ROLON Admitting Clinician Unavailable JUSTUS KIRKPATRICK Admitting Clinician Unavailable KALEN HURTADO Admitting Clinician Unavailable JASMIN JOVEL Admitting Clinician Unavailable ANDREW GRULLON Admitting Clinician Unavailable ARIAN MANUEL Admitting Clinician Unavailable PETER FAGAN Admitting Clinician Unavailable DENI RUBI Admitting Clinician Unavailable NICO GOLDMAN Admitting Clinician Unavailable TOBY CAO Admitting Clinician Unavailable Payers Payer Name Policy Type Policy Number Effective Date Expiration Date Sushma orona MEDICARE A B [id number] 2016 00:00:00 [employer] CHOICE [id number] 2021 00:00:00 [employer]OTED HE[employer] [id number] 2021 (MEDICARE 00:00:00 REPLACEMENT HMO) MEDICARE PART A \\T\\ [id number] B - MEDICARE [facility]-MEDICAID - [id number] MEDICAID [employer]ED [employer] [id number] HMO - HUMANA [id number] 2021 2021 HEALTHCARE 00:00:00 00:00:00 Problems Condition Condition Condition Status Onset Resolution Last Treating Co mments Source Name Details Category Date Date Treatment Clinician Date Chest pain Chest pain Disease [facility] 00 [place] Anemia Anemia Disease [facility] 00 [place] Mediastina Mediastina Disease Active [facility] l 3-22 [facility] lymphadeno lymphadeno 00:00: Mi dical nati nati 00 [place] Chronic Chronic Disease Active [facility] bronchitis bronchitis 3-12 [facility] 00:00: Medical 00 [place] Left arm Left arm Disease [facility] 2017[facility] 2[facility]26 [facility] 00 [place] Arm Arm Disease Active 2017-05 [facility] swelling swelling 2-21 Colleg e 00:00: 00 Medicin e PAD PAD Disease Active 2017-[address] [facility] [address] (periphera (periphera 1-13 [facility] l artery l artery 00:00: Medica l disease) disease) 00 Center Essential Essential Disease Active 2017-[facility] hypertensi hypertensi 0-17 [facility] on on 00:00: t & Plan: of 00 [facility] Medicin g of this e note might be different from the original. Elevated reading today, advised follow up with charting Excessive Excessive Disease Active 2017-05 [facility] daytime daytime 0-17 [facility] sleepiness sleepiness 00:00: t & Plan: 00 [facility] Medicin g of this e note might be different from the original. ESS 18Will closely follow up after treatment with CPAP initiated ESRD (end ESRD (end Disease Active 2017-05 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-07 [facility] lymphoma lymphoma 00:00: Medica l of of 00 Center axillary axillary lymph lymph nodes nodes Vascular Vascular Disease Active [facility] catheter catheter 01-07 [facility] infection infection 00:00: Medi dimitry 00 [place] End stage End stage Disease Active [facility] chronic chronic 01-06 [facility] kidney kidney 00:00: Medical disease disease 00 Center HTN HTN Disease Active [facility] (hypertens (hypertens 831 [facility] ion) ion) 00:00: Medical 00 [place] TIMA TIMA Disease Active Overview: [facility] (obstructi (obstructi 10-17 [facility] ve sleep ve sleep 00:00: g of [...] go ahead and order a CPAP machine MRSA MRSA Disease Active 2016-[address] [facility] bacteremia bacteremia 0-27 [facility] 00:00: Medical 00 [place] MSSA MSSA Disease Active 2016-[address] (methicill (methicill 0-27 [facility] in in 00:00: Medical susceptibl susceptibl 00 Ce nter e e Staphyloco Staphyloco ccus ccus aureus) aureus) infection infection Metabolic Metabolic Disease Active 2016-[address] [facility] acidosis acidosis 0-24 [facility] 00[facility]: [facility] 00 [place] CLABSI CLABSI Disease Active 2016-[address] [facility] [address] (central (central 0-23 [facility] line-assoc line-assoc 00:00: Me dical iated iated 00 Center bloodstrea bloodstrea m m infection) infection) Sepsis Sepsis Disease Active 2016-[address] [facility] 0-20 [facility] 00[facility] Medical [facility] Peripheral Peripheral Disease Active [facility] T-cell T-cell 4-19 [facility] lymphoma lymphoma 00:00: Medica l of lymph of lymph 00 Center nodes of nodes of head, head, face, or face, or neck neck Admission Admission Disease Active [facility] for for 4-19 [facility] antineopla antineopla 00:00: Me dical stic stic 00 Center chemothera chemothera py py 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 3-08 [facility] 00:[facility] 00 [facility] [place] Disease Active [facility] catheter catheter 3-[address] in place 00:00: of 00 Medicin e Lymphoma Lymphoma Disease [facility] 00[facility] Medical [facility] Center Encounter Encounter Disease Active [facility] for for 2-15 [facility] antineopla antineopla 00:00: Me dical stic stic 00 Center chemothera chemothera py py T-cell T-cell Disease Active [facility] acute acute 2-15 [facility] lymphoblas lymphoblas 00:00: Me dical tic tic 00 Center leukemia leukemia (ALL) (ALL) Encounter Encounter Disease Active [facility] for for 1-12 [facility] chemothera chemothera 00:00: Me dical py py 00 Center management management Lymphoma Lymphoma Disease [facility] 00[facility] 00 Center ALL (acute ALL (acute Disease Active [facility] lymphoblas lymphoblas 1-12 [facility] tic tic 00:00: Medical leukemia) leukemia) 00 Cent er Chemothera Chemothera Disease Active 2015-05 [facility] py induced py induced 2-27 Co llege neutropeni neutropeni 00:00: of a (HCCode) a (HCCode) 00 Me dicin e Peripheral Peripheral Disease Active 2015-05 Overview : [facility] T cell T cell 2-27 [facility] [place] lymphoma lymphoma 00:00: g of this of of lymph of lymph 00 note Medici n nodes of nodes of might be e head, head, different face, and face, and from the neck neck original. (HCCode) (HCCode) Updated from 2018 IMO Regulator y 1 UTI UTI Disease Active 2015-[address] [facility] [address] (urinary (urinary 2-18 [facility] tract tract 00:00: Medical infection) infection) 00 Ce nter Lymphoma Lymphoma Disease Active 2015-05 [facility] Hypertensi Hypertensi Disease Active 2015-[address] on on 2-14 [facility] 00:[facility]: Medical 00 Center Hyperchole Hyperchole Disease Active 2015-[address] steremia steremia 2-14 [facility] 00:[facility]: Medical 00 Center ESRD (end ESRD (end Disease Active 2015-[address] [facility] stage stage 2-14 [facility] renal renal 00:00: Medical disease) disease) 00 Center on on dialysis dialysis Neck Neck Disease Active 2015-[address] [facility] swelling swelling 2-13 [facility] 00:[facility]: Medical 00 Center SOB SOB Disease Active 2015-[address] [facility] [address] (shortness (shortness 2-12 [facility] of breath) of breath) 00:00: Me dical 00 Center Stridor Stridor Disease Active 2015-[address] 2-12 [facility] 00:00: Medical 00 [place] Dyslipidem Dyslipidem Disease Active U rosemarie ia ia 8-19 ity of 00:00: [place] [facility] ESRD (end ESRD (end Disease Active Uni vers stage stage 6-29 ity of renal renal 00:00: [place] disease) disease) 00 Medica l Branch CKD CKD Disease Active Univers (chronic (chronic 6-23 ity of kidney kidney 00:00: [place] disease), disease), 00 Medi dimitry stage 5 stage 5 Branch Submandibu Submandibu Disease Active U rosemarie lar gland lar gland 6-23 ity of mass mass 00:00: [place] [facility] Acute Acute Disease Active Univers renal renal 6-22 ity of failure failure 00:00: [place] [facility] Essential Essential Disease Active Uni vers hypertensi hypertensi 6-22 it y of on on 00:00: [place] [facility] Atypical Atypical Disease Active Unive rs chest pain chest pain 6-22 it y of 00:00: [address] Allergies, Adverse Reactions, Alerts Allergy Allergy Status Severity Reaction(s) Onset Inactive Treating Comm ents Source Name Type Date Date Clinician NO KNOWN Allergy Active [facility] ALLERGIE [facility] NO KNOWN Drug Active Univers ALLERGIE Class ity of S [facility] Family History Family Member Diagnosis Comments Start Date Stop Date Source Natural brother Kidney disease [facility] Natural daughter No Known Problem CH [facility] Natural father Hypertension [facility] Natural mother Hypertension [facility] Paternal grandfather Cancer [facility] Natural sister Breast cancer [facility] Natural son No Known Problem [facility] Social History Social Habit Start Date Stop Date Quantity Comments Source History of tobacco Snuff User [facility] use [facility] History SDIN University o f Alcohol Frequency [facility] Branch History SDIN University o f Alcohol Std Drinks [facility] History [facility] University o f Alcohol Binge [facility] Alcohol intake 2021-09-01 2021-09-[address] Andi es 00:00:00 00:00:00 non-drinker of Medical Ce nter alcohol (finding) Tobacco Comment 2021-09-01 2021-09-01[facility] 00:00:00 00:00:00 [facility] Exposure to 2021-08-17 2021-08-27 Not sure University SARS-CoV-2 (event) 00:00:00 07:01:00 [facility] Tobacco use and 2020-10-02 2020-10-[address] [facility] exposure 00:00:00 00:00:00 [facility] Alcohol Comment 2016-02-11 2016-02-11 Sober for last Unive rsity of 00:00:00 00:00:00 year [facility] Cigarettes smoked 2015-12-26 2015-12-26 Univers ity of current (pack per 00:00:00 00:00:00 [facility] ) - Reported Branch Cigarette 2015-12-26 2015-12-26 University of pack-years 00:00:00 00:00:00 [facility] Sex Assigned At [address] [facility] kes 00:00:00 00:00:00 Medical Center Smoking Status Start Date Stop Date Source Former smoker 2020-10-02 00:00:00 2020-10-02 00:00:[address] [facility] Current every day 2018-06-01 00:00:00 [facility] smoker Medicine Medications Ordered Filled Start Stop Current Ordering Indication Dosage Frequency Signature Comments Components Source Medication Medication Date Date Medication? Clinician (SIG) Name Name omega-3 Yes Take by [facility] fatty 4-26 [facility]. [facility] acids-fish 11:12: Medical oil 12 Center 300-1,000 mg Cap iron-multiv Yes 1{tbl} QD Take [address] itamins-min 4-26 tablet by Andi es erals 11:12: mouth Medical (THERAGRAN- 12 daily. Center M) 9 mg iron-400 mcg Tab tablet lovastatin Yes 20mg QD Take [address] (MEVACOR) 4-26 by mouth [facility] 20 MG 11:09: nightly. Medical tablet 48 [place] terazosin Yes 5mg Q.5D Take [address] (HYTRIN) 5 4-26 by mouth 2 Andi es MG capsule 11:09: (two) Medica l 48 times Center daily . hydrALAZINE Yes 50mg Q.5D Take [address] [facility] (APRESOLINE 4-26 by mouth 2 [facility] kes ) 50 MG 11:09: (two) Medical tablet 48 times Center daily . sevelamer Yes 800mg Take [address] (RENVELA) 4-26 mg by [facility] 800 mg 11:09: mouth 3 Medical tablet 48 (three) Center times daily with meals. metoprolol Yes 100mg QD Take [address] (TOPROL-XL) 4-26 mg by [facility] 100 MG 24 11:09: mouth Medical hr tablet 48 daily. [place] NIFEdipine Yes 90mg QD Take [address] (ADALAT CC) 4-26 by mouth Luke s 90 MG 24 hr 11:09: daily. Medi dimitry tablet 48 Center fluticasone Yes Inhale by [facility] /umeclidin/ 4-26 mouth via Andi es vilanter 11:09: inhaler. Medic al (TRELEGY 48 Center ELLIPTA INHL) pantoprazol 202- No 40mg Q.5D Take [address] e 08-29 tablet (40 [facility] (PROTONIX) 00:00: 23:59 mg total) M edical 40 MG 00 :00 by mouth 2 Center tablet (two) times daily for 30 days. heparin Yes 1000U/h 1,000 Univer s 25,000 4-21 Units/hr ity of Units/250 11:37: (10 [place] mL 57 mL/hr), IV Medical (Premixed Infusion, Branc h Bag) in TITRATE, 0.45 % NS [...] Rang e, Dosing and Testing: &nbs p;FOR PURYEAR, [facility] ONLY - aPTT < 35: & nbsp;Bolus [...] rate 150 units/hr&n bsp; - aPTT > 120:&n bsp; Hold 60 minutes, decrease rate 200 units/hr&n [...] aPTT 50-59:&nbs p; In crease rate 100 units/hr&a mp;nbsp; - aPTT 60-85:&nbs p; NO CHANGE&nbs p; [...] INITIAL BOLUS OR INITIAL INFUSION RATE.
acetaminoph 2021- No 1000mg 1,000 mg, Univers en 2-05 02-05 Oral, ity of (TYLENOL) 23:00: 22:06 ONCE, 1 [place] tablet [place] :00 dose, On Medical 1,000 mg 06/13/21 Branc h at 1700, LORI aspirin 2-0 Yes 325mg Take 325 Unive rs E.C. 2-05 mg by ity of (ECOTRIN) 15:43: mouth [place] 325 mg EC 23 daily. Medical tablet Branch terazosin 2022-0 Yes 5mg Take 5 mg Uni vers (HYTRIN) 5 2-05 by mouth 2 ity of mg capsule 15:43: (two) [place] 23 times Medical daily. Branch aspirin 2022-0 Yes 325mg Take 325 Unive rs E.C. 2-05 mg by ity of (ECOTRIN) 15:43: mouth [place] 325 mg EC 23 daily. Medical tablet Branch terazosin 2022-0 Yes 5mg Take 5 mg Uni vers (HYTRIN) 5 2-05 by mouth 2 ity of mg capsule 15:43: (two) [place] 23 times Medical daily. Branch aspirin 2-0 Yes 325mg Take 325 Unive rs E.C. 2-05 mg by ity of (ECOTRIN) 15:43: mouth [place] 325 mg EC 23 daily. Medical tablet Branch terazosin 2-0 Yes 5mg Take 5 mg Uni vers (HYTRIN) 5 2-05 by mouth 2 ity of mg capsule 15:43: (two) [place] 23 times Medical daily. Branch aspirin 2-0 Yes 325mg Take 325 Unive rs E.C. 2-05 mg by ity of (ECOTRIN) 15:43: mouth [place] 325 mg EC 23 daily. Medical tablet Branch terazosin 2022-0 Yes 5mg Take 5 mg Uni vers (HYTRIN) 5 2-05 by mouth 2 ity of mg capsule 15:43: (two) [place] 23 times Medical daily. Branch aspirin 2-0 Yes 325mg Take 325 Unive rs E.C. 2-05 mg by ity of (ECOTRIN) 15:43: mouth [place] 325 mg EC 23 daily. Medical tablet Branch terazosin 2022-0 Yes 5mg Take 5 mg Uni vers (HYTRIN) 5 2-05 by mouth 2 ity of mg capsule 15:43: (two) [place] 23 times Medical daily. Branch methocarbam 2022-0 Yes [id number] 500mg Take 1 Univers oL 2-05 tablet by ity of (ROBAXIN) 00:00: mouth 3 [place] 500 mg 00 (three) Medical tablet times Branch daily as needed for Pain (scale 4-6). methocarbam 2021-0 Yes [id number] 500mg Take 1 Univers oL 2-05 tablet by ity of (ROBAXIN) 00:00: mouth 3 [place] 500 mg 00 (three) Medical tablet times Branch daily as needed for Pain (scale 4-6). methocarbam 2021-0 Yes [id number] 500mg Take 1 Univers oL 2-05 tablet by ity of (ROBAXIN) 00:00: mouth 3 [place] 500 mg 00 (three) Medical tablet times Branch daily as needed for Pain (scale 4-6). methocarbam 2021-0 Yes [id number] 500mg Take 1 Univers oL 2-05 tablet by ity of (ROBAXIN) 00:00: mouth 3 [place] 500 mg 00 (three) Medical tablet times Branch daily as needed for Pain (scale 4-6). methocarbam 0 Yes [id number] 500mg Take 1 Univers oL 2-05 tablet by ity of (ROBAXIN) 00:00: mouth 3 [place] 500 mg 00 (three) Medical tablet times Branch daily as needed for Pain (scale 4-6). terazosin 0 Yes [id number] 5mg Take 5 mg [facility] (HYTRIN) 5 5-13 9108 by mouth Colle ge MG capsule 15:58: two times of 39 daily. Medicin e [place]-3 2020-0 Yes [id number] Take by [facility] Fatty Acids 5-13 9108 mouth College (FISH OIL) 15:58: daily. of 1200 MG 39 Reported Medicin CPDR on e 07/14/2016 tramadol 2020-0 Yes [id number] 50mg Take 50 mg [facility] (ULTRAM) 50 5-13 by mouth Suly ege MG tablet 15:58: every 8 of 39 hours as Medicin needed for e Pain. aspirin 325 2020-0 Yes [id number] 650mg Take 650 [facility] mg tablet 5-13 mg by College 15:58: mouth of 39 every 6 Medicin hours as e needed for Pain. Sevelamer 2020-0 Yes [id number] 800mg Take 800 [facility] Carbonate 5-13 mg by College 800 MG TABS 15:58: mouth of 39 daily. Medicin e terazosin Yes [id number] 5mg Take 5 mg [facility] (HYTRIN) 5 5-13 9108 by mouth Colle ge MG capsule 15:58: two times of 39 daily. Medicin e [place]-3 Yes [id number] Take by [facility] Fatty Acids 5-13 9108 mouth [place] (FISH OIL) 15:58: daily. of 1200 MG 39 Reported Medicin CPDR on e 07/14/2016 tramadol 2020-0 Yes [id number] 50mg Take 50 mg [facility] (ULTRAM) 50 5-13 by mouth Suly ege MG tablet 15:58: every 8 of 39 hours as Medicin needed for e Pain. aspirin 325 0 Yes [id number] 650mg Take 650 [facility] mg tablet 5-13 mg by College 15:58: mouth of 39 every 6 Medicin hours as e needed for Pain. Sevelamer Yes [id number] 800mg Take 800 [facility] Carbonate 5-13 mg by [place] 800 MG TABS 15:58: mouth of 39 daily. Medicin e terazosin Yes [id number] 5mg Take 5 mg [facility] (HYTRIN) 5 5-10 9108 by mouth Colle ge MG capsule 14:52: two times of 18 daily. Medicin e [place]-3 Yes [id number] Take by [facility] Fatty Acids 5-10 9108 mouth [place] (FISH OIL) 14:52: daily. of 1200 MG 18 Reported Medicin CPDR on e 07/14/2016 tramadol 2020-0 Yes [id number] 50mg Take 50 mg [facility] (ULTRAM) 50 5-10 by mouth Suly ege MG tablet 14:52: every 8 of 18 hours as Medicin needed for e Pain. aspirin 325 0 Yes [id number] 650mg Take 650 [facility] mg tablet 5-10 mg by College 14:52: mouth of 18 every 6 Medicin hours as e needed for Pain. Sevelamer Yes [id number] 800mg Take 800 [facility] Carbonate 5-10 mg by [place] 800 MG TABS 14:52: mouth of 18 daily. Medicin e Fluticasone 0 Yes [id number] Inhale 1 [facility] -Umeclidin- 5-10 Inhalation Co llege [place] 00:00: s by mouth of 100-62.5-25 00 daily. Medici n MCG/INH e AEPB Fluticasone 0 Yes [id number] Inhale 1 [facility] -Umeclidin- 5-10 Inhalation Co llege [place] 00:00: s by mouth of 100-62.5-25 00 daily. Medici n MCG/INH e AEPB folic acid 0 Yes 800ug Take 2 [place] (FOLVITE) 3-24 Tablets by Suly ege 400 MCG 00:00: mouth of tablet 00 daily. Medicin Take 1 tab e daily folic acid 0 Yes 800ug Take 2 [place] (FOLVITE) 3-24 Tablets by Suly ege 400 MCG 00:00: mouth of tablet 00 daily. Medicin e folic acid 0 Yes 800ug Take 2 [place] [facility] (FOLVITE) 3-24 Tablets by Suly ege 400 MCG 00:00: mouth of tablet 00 daily. Medicin Take 1 tab e daily folic acid 0 Yes 800ug Take 2 [facility] [facility] (FOLVITE) 3-24 Tablets by Suly ege 400 MCG 00:00: mouth of tablet 00 daily. Medicin e folic acid Yes 800ug Take 2 [place] [facility] (FOLVITE) 3-24 Tablets by Suly ege 400 MCG 00:00: mouth of tablet 00 daily. Medicin Take 1 tab e daily folic acid 0 Yes 800ug Take 2 [facility] [facility] (FOLVITE) 3-24 Tablets by Suly ege 400 MCG 00:00: mouth of tablet 00 daily. Medicin e terazosin 0 Yes [id number] 5mg Take 5 mg [facility] (HYTRIN) 5 - 9108 by mouth Colle ge MG capsule 20:16: two times of 33 daily. Medicin e [place]-3 Yes [id number] Take by [facility] Fatty Acids 3-08 mouth College (FISH OIL) 20:16: daily. of 1200 MG 33 Reported Medicin CPDR on e 07/14/2016 tramadol 2020-0 Yes [id number] 50mg Take 50 mg [facility] (ULTRAM) 50 3-17 by mouth Suly ege MG tablet 20:16: every 8 of 33 hours as Medicin needed for e Pain. aspirin 325 0 Yes [id number] 650mg Take 650 [facility] mg tablet 3-17 mg by College 20:16: mouth of 33 every 6 Medicin hours as e needed for Pain. Sevelamer 0 Yes [id number] 800mg Take 800 [facility] Carbonate 3-17 mg by [place] 800 MG TABS 20:16: mouth of 33 daily. Medicin e terazosin Yes [id number] 5mg Take 5 mg [facility] (HYTRIN) 5 3-17 9108 by mouth Colle ge MG capsule 20:16: two times of 33 daily. Medicin e [place]-3 Yes [id number] Take by [facility] Fatty Acids 3-17 9108 mouth [place] (FISH OIL) 20:16: daily. of 1200 MG 33 Reported Medicin CPDR on e 07/14/2016 tramadol 0 Yes [id number] 50mg Take 50 mg [facility] (ULTRAM) 50 3-17 by mouth Suly ege MG tablet 20:16: every 8 of 33 hours as Medicin needed for e Pain. aspirin 325 0 Yes [id number] 650mg Take 650 [facility] mg tablet 3-17 mg by [place] 20:16: mouth of 33 every 6 Medicin hours as e needed for Pain. Sevelamer Yes [id number] 800mg Take 800 [facility] Carbonate 3-17 mg by [place] 800 MG TABS 20:16: mouth of 33 daily. Medicin e lovastatin 2020- No [id number] 20mg Take 20 mg [facility] (MEVACOR) 06-12 9108 by mouth Colle ge 20 MG 20:42: 00:00 every of tablet 28 :00 evening. Medicin e metoprolol 2020- No [id number] 50mg Take 50 mg [facility] (TOPROL-XL) 06-12-04 by mouth Col lege 25 MG XL 20:42: 00:00 two times of tablet 28 :00 daily. Medicin e hydrALAZINE 2020- No [id number] 100mg Take 100 [facility] (APRESOLINE 06-12 9108 mg by Emmanuelg e ) 25 MG 20:38: 00:00 mouth four of tablet 12 :00 times Medicin daily. e terazosin Yes [id number] 5mg Take 5 mg [facility] (HYTRIN) 5 06-12 by mouth Colle ge MG capsule 19:59: two times of 08 daily. Medicin e [place]-3 Yes [id number] Take by [facility] Fatty Acids 06-12 mouth [place] (FISH OIL) 19:59: daily. of 1200 MG 08 Reported Medicin CPDR on e 07/14/2016 tramadol 2020-0 Yes [id number] 50mg Take 50 mg [facility] (ULTRAM) 50 - by mouth Suly ege MG tablet 19:59: every 8 of 08 hours as Medicin needed for e Pain. aspirin 325 2020-0 Yes [id number] 650mg Take 650 [facility] mg tablet 2-04 mg by [place] 19:59: mouth of 08 every 6 Medicin hours as e needed for Pain. Sevelamer 0 Yes [id number] 800mg Take 800 [facility] Carbonate 2-04 mg by [place] 800 MG TABS 19:59: mouth of 08 daily. Medicin e hydrALAZINE Yes 100mg Take 1 [place] (APRESOLINE 2-04 Tablet by Col lege ) 100 MG 00:00: mouth 3 of tablet 00 times Medicin daily. e lovastatin Yes [id number] 20mg Take 1 [facility] (MEVACOR) 2-9107 Tablet by Colle ge 20 MG 00:00: mouth of tablet 00 every Medicin evening. e metoprolol 0 Yes [id number] 50mg Take 2 [facility] (TOPROL-XL) 2-04 Tablets by Co llege 25 MG XL 00:00: mouth two of tablet 00 times Medicin daily. e hydrALAZINE Yes 100mg Take 1 [place] (APRESOLINE 2-04 Tablet by Col lege ) 100 MG 00:00: mouth 3 of tablet 00 times Medicin daily. e lovastatin Yes [id number] 20mg Take 1 [facility] (MEVACOR) 2-08 Tablet by Colle ge 20 MG 00:00: mouth of tablet 00 every Medicin evening. e metoprolol 0 Yes [id number] 50mg Take 2 [facility] (TOPROL-XL) 2-04 Tablets by Co llege 25 MG XL 00:00: mouth two of tablet 00 times Medicin daily. e hydrALAZINE 0 Yes 100mg Take 1 [place] (APRESOLINE 2-04 Tablet by Col lege ) 100 MG 00:00: mouth 3 of tablet 00 times Medicin daily. e lovastatin 2020-0 Yes [id number] 20mg Take 1 [facility] (MEVACOR) 2-04 9108 Tablet by Colle ge 20 MG 00:00: mouth of tablet 00 every Medicin evening. e metoprolol 2020-0 Yes [id number] 50mg Take 2 [facility] (TOPROL-XL) 2-04 Tablets by Co llege 25 MG XL 00:00: mouth two of tablet 00 times Medicin daily. e hydrALAZINE 0 Yes 100mg Take 1 [place] (APRESOLINE 2-04 Tablet by Col lege ) 100 MG 00:00: mouth 3 of tablet 00 times Medicin daily. e lovastatin 0 Yes [id number] 20mg Take 1 [facility] (MEVACOR) 2-04 9108 Tablet by Colle ge 20 MG 00:00: mouth of tablet 00 every Medicin evening. e metoprolol 2020-0 Yes [id number] 50mg Take 2 [facility] (TOPROL-XL) 2-04 Tablets by [facility]lege 25 MG XL 00:00: mouth two of tablet 00 times Medicin daily. e hydrALAZINE Yes 100mg Take 1 [place] [facility] (APRESOLINE 2-04 Tablet by Col [facility] ) 100 MG 00:00: mouth 3 of tablet 00 times Medicin daily. e lovastatin 0 Yes [id number] 20mg Take 1 [facility] (MEVACOR) 2-04 9108 Tablet by Colle [facility] 20 MG 00:00: mouth of tablet 00 every Medicin evening. e metoprolol 2020-0 Yes [id number] 50mg Take 2 [facility] (TOPROL-XL) 2-04 Tablets by [facility] 25 MG XL 00:00: mouth two of tablet 00 times Medicin daily. e lovastatin 2019-05 Yes [id number] 20mg Take 20 mg [facility] (MEVACOR) 1-18 9108 by mouth Colleg e 20 MG 20:52: every of tablet 44 evening. Medicin e hydrALAZINE 2019-05 Yes [id number] 100mg Take 100 [facility] (APRESOLINE 05-26 9108 mg by [place] ) 25 MG 20:52: mouth four of tablet 44 times Medicin daily. e terazosin 2019-05 Yes [id number] 5mg Take 5 mg [facility] (HYTRIN) 5 05-2608 by mouth Colle [facility] MG capsule 20:52: two times of 44 daily. Medicin e [place]-3 2019-05 Yes [id number] Take by [facility] Fatty Acids 05-26 mouth [place] (FISH OIL) 20:52: daily. of 1200 MG 44 Reported Medicin CPDR on e 07/14/2016 tramadol 2019- Yes [id number] 50mg Take 50 mg [facility] (ULTRAM) 50 -18 by mouth [facility] MG tablet 20:52: every 8 of 44 hours as Medicin needed for e Pain. metoprolol 2019-05 Yes [id number] 50mg Take 50 mg [facility] (TOPROL-XL) 18 by mouth [facility] 25 MG XL 20:52: two times of tablet 44 daily. Medicin e aspirin 325 2019-05 Yes [id number] 650mg Take 650 [facility] mg tablet 1-18 mg by [place] 20:52: mouth of 44 every 6 Medicin hours as e needed for Pain. Sevelamer 2019-05 Yes [id number] 800mg Take 800 [facility] Carbonate 1-18 mg by [place] 800 MG TABS 20:52: mouth of 44 daily. Medicin e lovastatin 2019-05 Yes [id number] 20mg Take 20 mg [facility] (MEVACOR) 05-1308 by mouth Colleg e 20 MG 19:35: every of tablet 29 evening. Medicin e hydrALAZINE 2019-05 Yes [id number] 100mg Take 100 [facility] (APRESOLINE 05-13 9108 mg by [place] ) 25 MG 19:35: mouth four of tablet 29 times Medicin daily. e terazosin 2019-05 Yes [id number] 5mg Take 5 mg [facility] (HYTRIN) 5 05-1308 by mouth Colle [facility] MG capsule 19:35: two times of 29 daily. Medicin e [place]-3 2019-05 Yes [id number] Take by [facility] Fatty Acids 05-13 mouth [place] (FISH OIL) 19:35: daily. of 1200 MG 29 Reported Medicin CPDR on e 07/14/2016 tramadol 2020-1 Yes [id number] 50mg Take 50 mg [facility] (ULTRAM) 50 1-05 by mouth [facility] MG tablet 19:35: every 8 of 29 hours as Medicin needed for e Pain. metoprolol 2020-1 Yes [id number] 50mg Take 50 mg [facility] (TOPROL-XL) 1-05 by mouth [facility] 25 MG XL 19:35: two times of tablet 29 daily. Medicin e aspirin 325 2020-1 Yes [id number] 650mg Take 650 [facility] mg tablet 1-05 mg by [place] 19:35: mouth of 29 every 6 Medicin hours as e needed for Pain. Sevelamer 2020-1 Yes [id number] 800mg Take 800 [facility] Carbonate 1-05 mg by [place] 800 MG TABS 19:35: mouth of 29 daily. Medicin e tramadol 2020-0 Yes [id number] 50mg Take 50 mg [facility] (ULTRAM) 50 7-30 by mouth [facility] MG tablet 20:17: every 8 of 40 hours as Medicin needed for e Pain. metoprolol 2020-0 Yes [id number] 50mg Take 50 mg [facility] (TOPROL-XL) 7-30 by mouth [facility] 25 MG XL 20:17: two times of tablet 40 daily. Medicin e aspirin 325 2020-0 Yes [id number] 650mg Take 650 [facility] mg tablet 7-30 mg by [place] 20:17: mouth of 40 every 6 Medicin hours as e needed for Pain. Sevelamer 2020-0 Yes [id number] 800mg Take 800 [facility] Carbonate 7-30 mg by [place] 800 MG TABS 20:17: mouth of 40 daily. Medicin e lovastatin 2020-0 Yes [id number] 20mg Take 20 mg [facility] (MEVACOR) 7-30 9108 by mouth Colleg e 20 MG 20:17: every of tablet 40 evening. Medicin e hydrALAZINE 2020-0 Yes [id number] 100mg Take 100 [facility] (APRESOLINE 7-30 9108 mg by [place] ) 25 MG 20:17: mouth four of tablet 40 times Medicin daily. e terazosin 2020-0 Yes [id number] 5mg Take 5 mg [facility] (HYTRIN) 5 7-30 9108 by mouth Colle [facility] MG capsule 20:17: two times of 40 daily. Medicin e [place]-3 2020-0 Yes [id number] Take by [facility] Fatty Acids 12-05 mouth [place] (FISH OIL) 20:17: daily. of 1200 MG 40 Reported Medicin CPDR on e 07/14/2016 methylPREDN 2020-0 Yes [id number] 4mg Take 1 Tab [facility] ISolone 7-20 by mouth College (MEDROL 00:00: See Admin of DOSEPACK) 4 00 Instructio Me dicin MG tablet ns. e Fluticasone 2020-0 Yes [id number] Inhale 1 [facility] -Umeclidin- 7-20 Inhalation [facility] Vilant 00:00: s by mouth of 100-62.5-25 00 daily. Medici n MCG/INH e AEPB methylPREDN 2020-0 Yes [id number] 4mg Take 1 Tab [facility] ISolone 7-20 by mouth [place] (MEDROL 00:00: See Admin of DOSEPACK) 4 00 Instructio Me dicin MG tablet ns. e Fluticasone 2020-0 Yes [id number] Inhale 1 [facility] -Umeclidin- 7-20 Inhalation [facility] 00:00: s by mouth of 100-62.5-25 00 daily. Medici n MCG/INH e AEPB methylPREDN 2020-0 Yes [id number] 4mg Take 1 Tab [facility] ISolone 7-20 by mouth [place] (MEDROL 00:00: See Admin of DOSEPACK) 4 00 Instructio Me dicin MG tablet ns. e Fluticasone 2020-0 Yes [id number] Inhale 1 [facility] -Umeclidin- 7-20 Inhalation [facility] 00:00: s by mouth of 100-62.5-25 00 daily. Medici n MCG/INH e AEPB methylPREDN 2020-0 Yes [id number] 4mg Take 1 Tab [facility] ISolone 7-20 by mouth [facility] (MEDROL 00:00: See Admin of DOSEPACK) 4 00 Instructio Me dicin MG tablet ns. e Fluticasone 2020-0 Yes [id number] Inhale 1 [facility] -Umeclidin- 7-20 Inhalation [facility] 00:00: s by mouth of 100-62.5-25 00 daily. Medici n MCG/INH e AEPB methylPREDN 2020-0 Yes [id number] 4mg Take 1 Tab [facility] ISolone 7-20 by mouth [facility] (MEDROL 00:00: See Admin of DOSEPACK) 4 00 Instructio Me dicin MG tablet ns. e Fluticasone 2020-0 Yes [id number] Inhale 1 [facility] -Umeclidin- 7-20 Inhalation [facility] 00:00: s by mouth of 100-62.5-25 00 daily. Medici n MCG/INH e AEPB methylPREDN 2020-0 Yes [id number] 4mg Take 1 Tab [facility] ISolone 7-20 by mouth [facility] (MEDROL 00:00: See Admin of DOSEPACK) 4 00 Instructio Me dicin MG tablet ns. e Fluticasone 2020-0 Yes [id number] Inhale 1 [facility] -Umeclidin- 7-20 Inhalation [facility] [place] 00:00: s by mouth of 100-62.5- 00 daily. Medici n MCG/INH e AEPB methylPREDN 2020-0 Yes [id number] 4mg Take 1 Tab [facility] ISolone 7-20 by mouth [facility] (MEDROL 00:00: See Admin of DOSEPACK) 4 00 Instructio Me dicin MG tablet ns. e methylPREDN 2020-0 Yes [id number] 4mg Take 1 Tab [facility] ISolone 7-20 by mouth [facility] (MEDROL 00:00: See Admin of DOSEPACK) 4 00 Instructio Me dicin MG tablet ns. e methylPREDN 2020-0 Yes [id number] 4mg Take 1 Tab [facility] ISolone 7-20 by mouth [facility] (MEDROL 00:00: See Admin of DOSEPACK) 4 00 Instructio Me dicin MG tablet ns. e methylPREDN 2020-0 Yes [id number] 4mg Take 1 Tab [facility] ISolone 7-20 by mouth [facility] (MEDROL 00:00: See Admin of DOSEPACK) 4 00 Instructio Me dicin MG tablet ns. e Fluticasone 2020-0 Yes [id number] Inhale 1 [facility] -Umeclidin- 7-20 Inhalation [facility] 00:00: s by mouth of 100-62.5-25 00 daily. Medici n MCG/INH e AEPB Fluticasone 2020- No [id number] Inhale 1 [facility] -Umeclidin- 7-20 05-10 Inhalation [facility] 00:00: 00:00 s by mouth of 100-62.5-25 00 :00 daily. Medici n MCG/INH e AEPB azithromyci 2020- No [id number] Take 2 [facility] n 7-20 07-26 Tabs by [place] (ZITHROMAX 00:00: 04:59 mouth of Z-BRITTANIE) 250 00 :00 daily for Medi [place] MG tablet 1 day, e THEN 1 Tab daily for 4 days. lovastatin 2019-0 Yes [id number] 20mg Take 20 mg [facility] (MEVACOR) 5-13 9108 by mouth Colleg e 20 MG 21:24: every of tablet 36 evening. Medicin e hydrALAZINE 2019-0 Yes [id number] 100mg Take 100 [facility] (APRESOLINE 5-13 9108 mg by [place] ) 25 MG 21:24: mouth four of tablet 36 times Medicin daily. e terazosin 2019-0 Yes [id number] 5mg Take 5 mg [facility] (HYTRIN) 5 5-13 9108 by mouth [facility]le [facility] MG capsule 21:24: two times of 36 daily. Medicin e [place]-3 2019-0 Yes [id number] Take by [facility] Fatty Acids 5-13 9108 mouth [place] (FISH OIL) 21:24: daily. of 1200 MG 36 Reported Medicin CPDR on e 07/14/2016 tramadol 2020-0 Yes [id number] 50mg Take 50 mg [facility] (ULTRAM) 50 5-13 by mouth [facility] MG tablet 21:24: every 8 of 36 hours as Medicin needed for e Pain. metoprolol 2020-0 Yes [id number] 50mg Take 50 mg [facility] (TOPROL-XL) 5-13 by mouth [facility] 25 MG XL 21:24: two times of tablet 36 daily. Medicin e aspirin 325 2020-0 Yes [id number] 650mg Take 650 [facility] mg tablet 5-13 mg by [place] 21:24: mouth of 36 every 6 Medicin hours as e needed for Pain. Sevelamer 2020-0 Yes [id number] 800mg Take 800 [facility] Carbonate 5-13 mg by [place] 800 MG TABS 21:24: mouth of 36 daily. Medicin e lovastatin 2020-0 Yes [id number] 20mg Take 20 mg [facility] (MEVACOR) 5-13 9108 by mouth Colleg e 20 MG 21:24: every of tablet 36 evening. Medicin e hydrALAZINE 2020-0 Yes [id number] 100mg Take 100 [facility] (APRESOLINE 5-13 9108 mg by [place] ) 25 MG 21:24: mouth four of tablet 36 times Medicin daily. e terazosin 2020-0 Yes [id number] 5mg Take 5 mg [facility] (HYTRIN) 5 5-13 9108 by mouth [facility]le [facility] MG capsule 21:24: two times of 36 daily. Medicin e [place]-3 2020-0 Yes [id number] Take by [facility] Fatty Acids 5-13 9108 mouth [place] (FISH OIL) 21:24: daily. of 1200 MG 36 Reported Medicin CPDR on e 07/14/2016 tramadol 2020-0 Yes [id number] 50mg Take 50 mg [facility] (ULTRAM) 50 5-13 by mouth [facility] MG tablet 21:24: every 8 of 36 hours as Medicin needed for e Pain. metoprolol 2020-0 Yes [id number] 50mg Take 50 mg [facility] (TOPROL-XL) 5-13 by mouth [place] 25 MG XL 21:24: two times of tablet 36 daily. Medicin e aspirin 325 2020-0 Yes [id number] 650mg Take 650 [facility] mg tablet 5-13 mg by [place] 21:24: mouth of 36 every 6 Medicin hours as e needed for Pain. Sevelamer 2020-0 Yes [id number] 800mg Take 800 [facility] Carbonate 5-13 mg by [place] 800 MG TABS 21:24: mouth of 36 [...] 00:00: daily. of Medicin e Apixaban Yes [id number] 2.5mg Take 2.5 [facility] (ELIQUIS) 5-08 mg by [place] 2.5 MG TABS 00:00: mouth two o f 00 times Medicin daily. e NIFEdipine 2018- Yes [id number] 90mg Take 90 mg [facility] CR Osmotic 5-08 9108 by mouth [facility]le [facility] 60 MG TB24 00:00: daily. of Medicin e Apixaban Yes [id number] 2.5mg Take 2.5 [facility] (ELIQUIS) 5-08 mg by [place] 2.5 MG TABS 00:00: mouth two o f 00 times Medicin daily. e NIFEdipine 2019- Yes [id number] 90mg Take 90 mg [facility] CR Osmotic 5-08 9108 by mouth [facility] 60 MG TB24 00:00: daily. of Medicin e Apixaban Yes [id number] 2.5mg Take 2.5 [facility] (ELIQUIS) 5-08 mg by [facility] 2.5 MG TABS 00:00: mouth two o f 00 times Medicin daily. e NIFEdipine 2019- Yes [id number] 90mg Take 90 mg [facility] CR Osmotic 5-08 9108 by mouth [facility] 60 MG TB24 00:00: daily. of Medicin e Apixaban Yes [id number] 2.5mg Take 2.5 [facility] (ELIQUIS) 5-08 mg by [facility] 2.5 MG TABS 00:00: mouth two o f 00 times Medicin daily. e NIFEdipine Yes [id number] 90mg Take 90 mg [facility] CR Osmotic 5-08 9108 by mouth [facility] 60 MG TB24 00:00: daily. of Medicin e Apixaban Yes [id number] 2.5mg Take 2.5 [facility] (ELIQUIS) 5-08 mg by [facility] 2.5 MG TABS 00:00: mouth two o f 00 times Medicin daily. e NIFEdipine Yes [id number] 90mg Take 90 mg [facility] CR Osmotic 5-08 9108 by mouth [facility] 60 MG TB24 00:00: daily. of Medicin e Apixaban Yes [id number] 2.5mg Take 2.5 [facility] (ELIQUIS) 5-08 mg by [place] 2.5 MG TABS 00:00: mouth two o f 00 times Medicin daily. e NIFEdipine Yes [id number] 90mg Take 90 mg [facility] CR Osmotic 5-08 9108 by mouth [facility]le [facility] 60 MG TB24 00:00: daily. of Medicin e Apixaban Yes [id number] 2.5mg Take 2.5 [facility] (ELIQUIS) 5-08 mg by [place] 2.5 MG TABS 00:00: mouth two o f 00 times Medicin daily. e NIFEdipine Yes [id number] 90mg Take 90 mg [facility] CR Osmotic 5-08 9108 by mouth Colle [facility] 60 MG TB24 00:00: daily. of Medicin e Apixaban Yes [id number] 2.5mg Take 2.5 [facility] (ELIQUIS) 5-08 mg by [facility] 2.5 MG TABS 00:00: mouth two o f 00 times Medicin daily. e NIFEdipine Yes [id number] 90mg Take 90 mg [facility] CR Osmotic 5-08 9108 by mouth [facility]le [facility] 60 MG TB24 00:00: daily. of Medicin e Apixaban Yes [id number] 2.5mg Take 2.5 [facility] (ELIQUIS) 5-08 mg by [place] 2.5 MG TABS 00:00: mouth two o f 00 times Medicin daily. e NIFEdipine Yes [id number] 90mg Take 90 mg [facility] CR Osmotic 5-08 9108 by mouth [facility]le [facility] 60 MG TB24 00:00: daily. of Medicin e Apixaban Yes [id number] 2.5mg Take 2.5 [facility] (ELIQUIS) 5-08 mg by [place] 2.5 MG TABS 00:00: mouth two o f 00 times Medicin daily. e NIFEdipine Yes [id number] 90mg Take 90 mg [facility] CR Osmotic 5-08 9108 by mouth [facility] 60 MG TB24 00:00: daily. of Medicin e Apixaban Yes [id number] 2.5mg Take 2.5 [facility] (ELIQUIS) 5-08 mg by [place] 2.5 MG TABS 00:00: mouth two o f 00 times Medicin daily. e NIFEdipine Yes [id number] 90mg Take 90 mg [facility] CR Osmotic 5-08 9108 by mouth [facility] 60 MG TB24 00:00: daily. of Medicin e ELIQUIS 5 2021- No TAKE 1/[address] [facility] MG tablet 09-09 04-23 TABLET(2.5 Andi es 00:00: 00:00 MG) BY Medical 00 :00 MOUTH Center TWICE DAILY sertraline 2017-05 Yes 12.5mg Take 0.5 B [...] Medicin Take half e tablet daily metoprolol 0 Yes [facility] (TOPROL-XL) 9-27 [facility] 100 MG XL 00:00: of tablet 00 Medicin e metoprolol 2017-0 Yes [facility] (TOPROL-XL) 9-27 [facility] 100 MG XL 00:00: of tablet 00 Medicin e metoprolol 2017-0 Yes [facility] (TOPROL-XL) 9-27 [facility] 100 MG XL 00:00: of tablet 00 Medicin e metoprolol 2017- Yes [facility] (TOPROL-XL) 9-27 [facility] 100 MG XL 00:00: of tablet 00 Medicin e metoprolol 2017- Yes [facility] (TOPROL-XL) 02-02 [facility] 100 MG XL 00:00: of tablet 00 Medicin e metoprolol 2017-0 2020- No [facility] (TOPROL-XL) 9 02-04 [facility] 100 MG XL 00:00: 00:00 of tablet 00 :00 Medicin e NIFEdipine 2017-0 Yes [facility] (ADALAT CC) 8-21 [facility] 90 MG CR 00:00: of tablet 00 Medicin e NIFEdipine Yes [facility] (ADALAT CC) 8-21 [facility] 90 MG CR 00:00: of tablet 00 Medicin e NIFEdipine Yes [facility] (ADALAT CC) 8-21 [facility] 90 MG CR 00:00: of tablet 00 Medicin e NIFEdipine 2017- Yes [facility] (ADALAT CC) 8-21 [facility] 90 MG CR 00:00: of tablet 00 Medicin e NIFEdipine 2017-0 Yes [facility] (ADALAT CC) 8-21 [facility] 90 MG CR 00:00: of tablet 00 Medicin e NIFEdipine Yes [facility] (ADALAT CC) 8-21 [facility] 90 MG CR 00:00: of tablet 00 Medicin e NIFEdipine 0 Yes [facility] (ADALAT CC) 8-21 [facility] 90 MG CR 00:00: of tablet 00 Medicin e NIFEdipine 2017-0 Yes [facility] (ADALAT CC) 8-21 [place] 90 MG CR 00:00: of tablet 00 Medicin e NIFEdipine 2017-0 Yes [facility] (ADALAT CC) 8-21 [facility] 90 MG CR 00:00: of tablet 00 Medicin e NIFEdipine 0 Yes [facility] (ADALAT CC) 8-21 [facility] 90 MG CR 00:00: of tablet 00 Medicin e NIFEdipine 0 Yes [facility] (ADALAT CC) 8-21 [facility] 90 MG CR 00:00: of tablet 00 Medicin e traMADol 2016-05 Yes 50mg Take [address] [facility] (ULTRAM) 50 0-27 tablet (50 [facility] kes mg tablet 00:00: mg total) Med ical 00 by mouth Center every 6 (six) hours as needed for Pain (s/p pharangeal biospy). Max Daily Amount: 200 mg terazosin 2015-05 Yes [id number] 4mg Take 2 [facility] (HYTRIN) 2 0-05 capsules ity o f mg capsule 00:00: by mouth [place] as 00 at Medical bedtime. Branch terazosin 2016- Yes [id number] 4mg Take 2 [facility] (HYTRIN) 2 0-05 capsules ity o f mg capsule 00:00: by mouth [place] as 00 at Medical bedtime. Branch terazosin 2016- Yes [id number] 4mg Take 2 [facility] (HYTRIN) 2 0-05 capsules ity o f mg capsule 00:00: by mouth [place] as 00 at Medical bedtime. Branch terazosin 2015- Yes [id number] 4mg Take 2 [facility] (HYTRIN) 2 0-05 capsules ity o f mg capsule 00:00: by mouth [place] as 00 at Medical bedtime. Branch terazosin 2015- Yes [id number] 4mg Take 2 [facility] (HYTRIN) 2 0-05 capsules ity o f mg capsule 00:00: by mouth [place] as 00 at Medical bedtime. Branch hydralAZINE Yes [id number] 50mg Take 50 mg [facility] (APRESOLINE 01-13 by mouth 4 it y of ) 25 mg 00:00: (four) [place] tablet 00 times Medical daily. Branch metoprolol Yes [id number] 25mg Take 25 mg [facility] succinate 01-13 by mouth 2 ity of XL (TOPROL 00:00: (two) [place] XL) 25 mg 00 times Medical 24 hr daily. Branch tablet lisinopril Yes [id number] 40mg Take 40 mg [facility] (PRINIVIL,Z 01-13 by mouth 2 it y of ESTRIL) 40 00:00: (two) [place] mg tablet 00 times Medical daily. Branch hydralAZINE Yes [id number] 50mg Take 50 mg [facility] (APRESOLINE 07 by mouth 4 it y of ) 25 mg 00:00: (four) [place] tablet 00 times Medical daily. Branch metoprolol Yes [id number] 25mg Take 25 mg [facility] succinate 07 by mouth 2 ity of XL (TOPROL 00:00: (two) [place] XL) 25 mg 00 times Medical 24 hr daily. Branch tablet lisinopril Yes [id number] 40mg Take 40 mg [facility] (PRINIVIL,Z 07 by mouth 2 it y of ESTRIL) 40 00:00: (two) [place] mg tablet 00 times Medical daily. Branch hydralAZINE 2016-0 Yes [id number] 50mg Take 50 mg [facility] (APRESOLINE 9-07 by mouth 4 it y of ) 25 mg 00:00: (four) [place] tablet 00 times Medical daily. Branch metoprolol 2015-0 Yes [id number] 25mg Take 25 mg [facility] succinate 9-07 by mouth 2 ity of XL (TOPROL 00:00: (two) [place] XL) 25 mg 00 times Medical 24 hr daily. Branch tablet lisinopril 2015-0 Yes [id number] 40mg Take 40 mg [facility] (PRINIVIL,Z 9-07 by mouth 2 it y of ESTRIL) 40 00:00: (two) [place] mg tablet 00 times Medical daily. Branch hydralAZINE 2015-0 Yes [id number] 50mg Take 50 mg [facility] (APRESOLINE 9-07 by mouth 4 it y of ) 25 mg 00:00: (four) [place] tablet 00 times Medical daily. Branch metoprolol 2015-0 Yes [id number] 25mg Take 25 mg [facility] succinate 9-07 by mouth 2 ity of XL (TOPROL 00:00: (two) [place] XL) 25 mg 00 times Medical 24 hr daily. Branch tablet lisinopril 2015-0 Yes [id number] 40mg Take 40 mg [facility] (PRINIVIL,Z 9-07 by mouth 2 it y of ESTRIL) 40 00:00: (two) [place] mg tablet 00 times Medical daily. Branch hydralAZINE 2015-0 Yes [id number] 50mg Take 50 mg [facility] (APRESOLINE 9-07 by mouth 4 it y of ) 25 mg 00:00: (four) [place] tablet 00 times Medical daily. Branch metoprolol 2015-0 Yes [id number] 25mg Take 25 mg [facility] succinate 9-07 by mouth 2 ity of XL (TOPROL 00:00: (two) [place] XL) 25 mg 00 times Medical 24 hr daily. Branch tablet lisinopril 2015-0 Yes [id number] 40mg Take 40 mg [facility] (PRINIVIL,Z 9-07 by mouth 2 it y of ESTRIL) 40 00:00: (two) [place] mg tablet 00 times Medical daily. Branch NIFEdipine 2015- Yes [id number] 30mg Take 1 [facility] ER 8-19 tablet by ity of (AFEDITAB 00:00: mouth [place] CR) 30 mg 00 daily. Medical SR tablet Branch lovastatin Yes [id number] 20mg Take 1 [facility] (ALTOPREV) 8-19 tablet by ity of 20 mg 24 hr 00:00: [place] tablet 00 bedtime. Medical Branch NIFEdipine Yes [id number] 30mg Take 1 [facility] ER 8-19 tablet by ity of (AFEDITAB 00:00: mouth [place] CR) 30 mg 00 daily. Medical SR tablet Branch lovastatin Yes [id number] 20mg Take 1 [facility] (ALTOPREV) 8-19 tablet by ity of 20 mg 24 hr 00:00: mouth [place] tablet 00 bedtime. Medical Branch NIFEdipine Yes [id number] 30mg Take 1 [facility] ER 8-19 tablet by ity of (AFEDITAB 00:00: mouth [place] CR) 30 mg 00 daily. Medical SR tablet Branch lovastatin Yes [id number] 20mg Take 1 [facility] (ALTOPREV) 8-19 tablet by ity of 20 mg 24 hr 00:00: mouth [place] tablet 00 bedtime. Medical Branch NIFEdipine Yes [id number] 30mg Take 1 [facility] ER 8-19 tablet by ity of (AFEDITAB 00:00: mouth [place] CR) 30 mg 00 daily. Medical SR tablet Branch lovastatin Yes [id number] 20mg Take 1 [facility] (ALTOPREV) 8-19 tablet by ity of 20 mg 24 hr 00:00: mouth [place] tablet 00 bedtime. Medical Branch NIFEdipine Yes [id number] 30mg Take 1 [facility] ER 8-19 tablet by ity of (AFEDITAB 00:00: mouth [place] CR) 30 mg 00 daily. Medical SR tablet Branch lovastatin Yes [id number] 20mg Take 1 [facility] (ALTOPREV) 8-19 tablet by ity of 20 mg 24 hr 00:00: mouth [place] tablet 00 bedtime. Medical Branch aspirin 81 Yes 81mg Take 1 Unive rs mg chewable 6-28 tablet by ity of tablet 00:00: mouth [place] 00 daily. Medical Branch hydralAZINE Yes 50mg Take 1 [facility] ers (APRESOLINE 6-28 tablet by ity of ) 50 mg 00:00: mouth [place] tablet 00 every 6 Medical (six) Branch hours. calcitriol 2016-0 Yes .25ug Take 1 Univ ers (ROCALTROL) 6-28 capsule by it y of 0.25 mcg 00:00: mouth [place] capsule 00 daily. Medical Branch aspirin 81 2016-0 Yes 81mg Take 1 Unive rs mg chewable 6-28 tablet by ity of tablet 00:00: mouth [place] 00 daily. Medical Branch hydralAZINE 2015-0 Yes 50mg Take 1 Univ ers (APRESOLINE 6-28 tablet by ity of ) 50 mg 00:00: mouth [place] tablet 00 every 6 Medical (six) Branch hours. calcitriol 2016-0 Yes .25ug Take 1 Univ ers (ROCALTROL) 6-28 capsule by it y of 0.25 mcg 00:00: mouth [place] capsule 00 daily. Medical Branch aspirin 81 [id number] Yes 81mg Take 1 Unive rs mg chewable 6-28 tablet by ity of tablet 00:00: mouth [place] 00 daily. Medical Branch hydralAZINE 2015-0 Yes 50mg Take 1 Univ ers (APRESOLINE 6-28 tablet by ity of ) 50 mg 00:00: mouth [place] tablet 00 every 6 Medical (six) Branch hours. calcitriol 2015-0 Yes .25ug Take 1 Univ ers (ROCALTROL) 6-28 capsule by it y of 0.25 mcg 00:00: mouth [place] capsule 00 daily. Medical Branch aspirin 81 [id number] Yes 81mg Take 1 Unive rs mg chewable 6-28 tablet by ity of tablet 00:00: mouth [place] 00 daily. Medical Branch hydralAZINE 0 Yes 50mg Take 1 [facility] ers (APRESOLINE 6-28 tablet by ity of ) 50 mg 00:00: mouth [place] tablet 00 every 6 Medical (six) Branch hours. calcitriol 2016-0 Yes .25ug Take 1 Univ ers (ROCALTROL) 6-28 capsule by it y of 0.25 mcg 00:00: mouth [place] capsule 00 daily. Medical Branch aspirin 81 2016-0 Yes 81mg Take 1 Unive rs mg chewable 6-28 tablet by ity of tablet 00:00: mouth [place] 00 daily. Medical Branch hydralAZINE 2015-0 Yes 50mg Take 1 Univ ers (APRESOLINE 6-28 tablet by ity of ) 50 mg 00:00: mouth [place] tablet 00 every 6 Medical (six) Branch hours. calcitriol 2016-0 Yes .25ug Take 1 Univ ers (ROCALTROL) 6-28 capsule by it y of 0.25 mcg 00:00: mouth [place] capsule 00 daily. Medical Branch Vital Signs Vital Name Observation Time Observation Value Comments Source WEIGHT 2020-07-25 19:11:00 95 kg WEIGHT 2020-07-25 15:25:00 98 kg HEIGHT 2021-09-01 10:55:00 182.1 cm WEIGHT 2021-09-01 10:55:00 98.657 kg HEIGHT 2021-09-01 10:55:00 182.1 cm WEIGHT 2021-09-01 10:55:00 98.657 kg WEIGHT 2021-08-29 10:45:00 91.8 kg WEIGHT 2021-08-29 07:40:00 94.8 kg WEIGHT 2021-08-29 10:45:00 91.8 kg WEIGHT 2021-08-29 07:40:00 94.8 kg WEIGHT 2021-08-29 10:45:00 91.8 kg WEIGHT 2021-08-29 07:40:00 94.8 kg Systolic blood 2021-08-27 14:25:59 128 mm[Hg] Univer sity of pressure [facility] Diastolic blood 2021-08-27 14:25:59 85 mm[Hg] Unive [facility] Heart rate 2021-08-27 14:25:59 74 /min [facility] Body temperature 2021-08-27 14:25:59 36.56 [facility] 2021-08-27 14:25:59 18 /min [facility] Oxygen saturation in 2021-08-27 14:25:59 100 /min [facility] Arterial blood by [facility] Pulse oximetry Branch Body height 2021-08-27 10:45:00 180.3 cm [facility] Body weight 2021-08-27 10:45:00 95.709 kg [facility] BMI 2021-08-27 10:45:00 29.43 kg/m2 [facility] Systolic blood 2021-06-13 21:40:00 151 mm[Hg] Univer sity of pressure [facility] Diastolic blood 2021-06-13 21:40:00 93 mm[Hg] Unive rsity of pressure [facility] Heart rate 2021-06-13 21:40:00 86 /min Universi ty of [facility] Body temperature 2021-06-13 21:40:00 37.06 Chari Univ ersity of [facility] Respiratory rate 2021-06-13 21:40:00 18 /min Univ ersity of [facility] Body weight 2021-06-13 21:40:00 99.338 kg [facility]i [facility] of [facility] BMI 2021-06-13 21:40:00 28[facility]12 [facility] 2021-06-13 21:40:00 98 /min [facility] Arterial blood by [facility] Pulse oximetry Branch Systolic blood 2020-09-18 20:56:00 156 mm[Hg] [facility] pressure Medicine Diastolic blood 2020-09-18 20:56:00 88 mm[Hg] [facility] pressure Medicine Heart rate 2020-09-18 20:56:00 93 /min [facility] Body height 2020-09-18 20:56:00 188 [facility] Body weight 2020-09-18 20:56:00 94.076 kg [facility] BMI 2020-09-18 20:56:00 26.63 kg/m2 [facility] Systolic blood 2020-09-15 19:49:00 132 mm[Hg] [facility] Diastolic blood 2020-09-15 19:49:00 78 mm[Hg] [facility] Medicine Heart rate 2020-09-15 19:49:00 90 /min [facility] Body temperature 2020-09-15 19:49:00 36.72 Chari [facility] Body height 2020-09-15 19:49:00 188 cm [facility] Body weight 2020-09-15 19:49:00 89.812 kg [facility] BMI 2020-09-15 19:49:00 25.42 kg/m2 [facility] Systolic blood 2020-09-09 18:57:00 120 mm[Hg] [facility] pressure Medicine Diastolic blood 2020-09-09 18:57:00 73 mm[Hg] [facility] pressure Medicine Heart rate 2020-09-09 18:57:00 89 /min [facility] Body temperature 2020-09-09 18:57:00 36.39 Chari [facility] Respiratory rate 2020-09-09 18:57:00 16 /min [facility] Body height 2020-09-09 18:57:00 188 cm [facility] Body weight 2020-09-09 18:57:00 91.627 kg [facility] BMI 2020-09-09 18:57:00 25.94 kg/m2 [facility] Systolic blood 2020-09-09 18:57:00 120 mm[Hg] [facility] Medicine Diastolic blood 2020-09-09 18:57:00 73 mm[Hg] [facility] Medicine Heart rate 2020-09-09 18:57:00 89 /min [facility] Body temperature 2020-09-09 18:57:00 36.39 Chari [facility] Respiratory rate 2020-09-09 18:57:00 16 /min [facility] Body height 2020-09-09 18:57:00 188 cm [facility] Body weight 2020-09-09 18:57:00 91.627 kg [facility] BMI 2020-09-09 18:57:00 25.94 kg/m2 [facility] WEIGHT 2020-07-25 19:11:00 95 kg WEIGHT 2020-07-25 15:25:00 98 kg Systolic blood 2020-07-23 20:13:00 146 mm[Hg] [facility] Medicine Diastolic blood 2020-07-23 20:13:00 84 mm[Hg] [facility] pressure Medicine Heart rate 2020-07-23 20:13:00 90 /min [facility] Body temperature 2020-07-23 20:13:00 36.67 Chari [facility] Body height 2020-07-23 20:13:00 188 cm [facility] Body weight 2020-07-23 20:13:00 95.709 kg [facility] BMI 2020-07-23 20:13:00 27.09 kg/m2 [facility] Systolic blood 2020-07-23 20:13:00 146 mm[Hg] [facility] Medicine Diastolic blood 2020-07-23 20:13:00 84 mm[Hg] [facility] pressure Medicine Heart rate 2020-07-23 20:13:00 90 /min [facility] Body temperature 2020-07-23 20:13:00 36.67 Chari [facility] Body height 2020-07-23 20:13:00 188 cm [facility] Body weight 2020-07-23 20:13:00 95.709 kg [facility] BMI 2020-07-23 20:13:00 27.09 kg/m2 [facility] Systolic blood 2020-06-12 19:53:00 136 mm[Hg] [facility] Medicine Diastolic blood 2020-06-12 19:53:00 85 mm[Hg] [facility] pressure Medicine Heart rate 2020-06-12 19:53:00 83 /min [facility] Respiratory rate 2020-06-12 19:53:00 16 /min [facility] Body height 2020-06-12 19:53:00 188 cm [facility] Body weight 2020-06-12 19:53:00 93.[address]95 [address] [facility] BMI 2020-06-12 19:53:00 26.58 kg/m2 [facility] Oxygen saturation in 2020-06-12 19:53:00 98 /min [facility] Arterial blood by Medicine Pulse oximetry Systolic blood 2020-06-12 19:53:00 136 mm[Hg] [facility] pressure Medicine Diastolic blood 2020-06-12 19:53:00 85 mm[Hg] [facility] pressure Medicine Heart rate 2020-06-12 19:53:00 83 /min [facility] Respiratory rate 2020-06-12 19:53:00 16 /min [facility] Body height 2020-06-12 19:53:00 188 cm [facility] Body weight 2020-06-12 19:53:00 93.895 kg [facility] BMI 2020-06-12 19:53:00 26.58 kg/m2 [facility] Oxygen saturation in 2020-06-12 19:53:00 98 /min [facility] Arterial blood by [facility] Pulse oximetry Systolic blood 2020-03-26 20:46:00 129 mm[Hg] [facility] pressure Medicine Diastolic blood 2020-03-26 20:46:00 77 mm[Hg] [facility] Medicine Heart rate 2020-03-26 20:46:00 81 /min [facility] Body temperature 2020-03-26 20:46:00 36.94 Chari [facility] Body height 2020-03-26 20:46:00 188 cm [facility] Body weight 2020-03-26 20:46:00 97.07 kg [facility] BMI 2020-03-26 20:46:00 27.48 kg/m2 [facility] Systolic blood 2020-03-26 20:46:00 129 mm[Hg] [facility] pressure Medicine Diastolic blood 2020-03-26 20:46:00 77 mm[Hg] [facility] Medicine Heart rate 2020-03-26 20:46:00 81 /min [facility] Body temperature 2020-03-26 20:46:00 36.94 Chari [facility] Body height 2020-03-26 20:46:00 188 cm [facility] Body weight 2020-03-26 20:46:00 97.07 kg [facility] BMI 2020-03-26 20:46:00 27.48 kg/m2 [facility] Systolic blood 2020-03-13 19:34:00 149 mm[Hg] [facility] Medicine Diastolic blood 2020-03-13 19:34:00 89 mm[Hg] [facility] pressure Medicine Heart rate 2020-03-13 19:34:00 82 /min [facility] Respiratory rate 2020-03-13 19:34:00 16 /min [facility] Body height 2020-03-13 19:34:00 188 cm [facility] Body weight 2020-03-13 19:34:00 94.802 kg [facility] BMI 2020-03-13 19:34:00 26.83 kg/m2 [facility] Systolic blood 2020-03-13 19:34:00 149 mm[Hg] [facility] Medicine Diastolic blood 2020-03-13 19:34:00 89 mm[Hg] [facility] pressure Medicine Heart rate 2020-03-13 19:34:00 82 /min [facility] Respiratory rate 2020-03-13 19:34:00 16 /min [facility] Body height 2020-03-13 19:34:00 188 cm [facility] Body weight 2020-03-13 19:34:00 94.802 kg [facility] BMI 2020-03-13 19:34:00 26.83 kg/m2 [facility] Systolic blood 2019-12-06 20:13:00 155 mm[Hg] [facility] Medicine Diastolic blood 2019-12-06 20:13:00 85 mm[Hg] [facility] Medicine Heart rate 2019-12-06 20:13:00 92 /min [facility] Body temperature 2019-12-06 20:13:00 36.67 Chari [facility] Respiratory rate 2019-12-06 20:13:00 16 /min [facility] Body height 2019-12-06 20:13:00 188 cm [facility] Body weight 2019-12-06 20:13:00 92.987 kg [facility] BMI 2019-12-06 20:13:00 26.32 kg/m2 [facility] Systolic blood 2019-12-06 20:13:00 155 mm[Hg] [facility] Medicine Diastolic blood 2019-12-06 20:13:00 85 mm[Hg] [facility] pressure Medicine Heart rate 2019-12-06 20:13:00 92 /min [facility] Body temperature 2019-12-06 20:13:00 36.67 Chari [facility] Respiratory rate 2019-12-06 20:13:00 16 /min [facility] Body height 2019-12-06 20:13:00 188 cm [facility] Body weight 2019-12-06 20:13:00 92.[address] [facility] BMI 2019-12-06 20:13:00 26.32 kg/m2 [facility] Systolic blood 2019-11-26 20:19:00 154 mm[Hg] [facility] Medicine Diastolic blood 2019-11-26 20:19:00 73 mm[Hg] [facility] Medicine Heart rate 2019-11-26 20:19:00 93 /min [facility] Body temperature 2019-11-26 20:19:00 37 Chari [facility] Respiratory rate 2019-11-26 20:19:00 22 /min [facility] Body height 2019-11-26 20:19:00 188 [facility] Body weight 2019-11-26 20:19:00 98.431 kg [facility] BMI 2019-11-26 20:19:00 27.86 kg/m2 [facility] Systolic blood 2019-11-26 20:19:00 154 mm[Hg] [facility] Medicine Diastolic blood 2019-11-26 20:19:00 73 mm[Hg] [facility] pressure Medicine Heart rate 2019-11-26 20:19:00 93 /min [facility] Body temperature 2019-11-26 20:19:00 37 Chari [facility] Respiratory rate 2019-11-26 20:19:00 22 /min [facility] Body height 2019-11-26 20:19:00 188 cm [facility] Body weight 2019-11-26 20:19:00 98.431 kg [facility] BMI 2019-11-26 20:19:00 27.86 kg/m2 [facility] Systolic blood 2019-09-19 21:22:00 163 mm[Hg] [facility] Medicine Diastolic blood 2019-09-19 21:22:00 89 mm[Hg] [facility] pressure Medicine Heart rate 2019-09-19 21:22:00 94 /min [facility] Body temperature 2019-09-19 21:22:00 36.78 Chari [facility] Body height 2019-09-19 21:22:00 188 cm [facility] Body weight 2019-09-19 21:22:00 97.523 kg [facility] BMI 2019-09-19 21:22:00 27.60 kg/m2 [facility] Systolic blood 2019-09-19 21:22:00 163 mm[Hg] [facility] pressure Medicine Diastolic blood 2019-09-19 21:22:00 89 mm[Hg] [facility] Medicine Heart rate 2019-09-19 21:22:00 94 /min [facility] Body temperature 2019-09-19 21:22:00 36.78 Chari [facility] Body height 2019-09-19 21:22:00 188 cm [facility] Body weight 2019-09-19 21:22:00 97.523 kg [facility] BMI 2019-09-19 21:22:00 27.60 kg/m2 [facility] Systolic blood 2021-09-01 10:55:00 114 mm[Hg] [facility] Diastolic blood 2021-09-01 10:55:00 71 mm[Hg] [facility] Heart rate 2021-09-01 10:55:00 70 /min [facility] Body temperature 2021-09-01 10:55:00 36.44 Chari [facility] Respiratory rate 2021-09-01 10:55:00 18 /min [facility] Body height 2021-09-01 10:55:00 182.1 cm [facility] Body weight 2021-09-01 10:55:00 98.657 kg [facility] BMI 2021-09-01 10:55:00 29.75 kg/m2 [facility] Oxygen saturation in 2021-08-29 11:30:00 99 /min [facility] Arterial blood by Medical Ce nter Pulse oximetry Procedures Procedure Date / Time Performing Clinician Source Performed AUTHORIZATION FOR RELEASE 2021-09-22 05:01:00 Doctor Unassigned, [facility] US PELVIS WITH DOPPLER 2021-09-01 14:51:00 Kyala Chino [facility] US ABDOMEN COMPLETE 2021-09-01 14:38:[address] [facility] PREPARE LEUKO-REDUCED RBC 2021-08-29 23:54:00 Sidra Clarke [facility] HEMODIALYSIS INPATIENT 2021-08-29 10:36:51 Buck Torres [facility] HEMOGLOBIN AND HEMATOCRIT 2021-08-29 08:19:00 Funmilayo Peralta [facility] HEMOGLOBIN AND HEMATOCRIT 2021-08-29 00:43:00 Funmilayo Peralta [facility] PTH, INTACT 2021-08-29 00:43:00 Pete Lorenzo [facility] PREPARE LEUKO-REDUCED RBC 2021-08-28 23:55:00 Funmilayo Peralta [facility] HEPATITIS B SURFACE ANTIGEN 2021-08-28 18:35:00 Celio Benz [facility] HEMOGLOBIN AND HEMATOCRIT 2021-08-28 18:35:00 Funmilayo Peral[address] [facility] SARS-COV2/RT-PCR ([facility] & 2021-08-28 15:34:[address] [facility] REF LABS) [facility] REPORT OF PROCEDURE - 2021-08-28 11:25:[address] [facility] ENDOSCOPY [facility] TISSUE EXAM 2021-08-28 11:16:00 [facility] ESOPHAGOGASTRODUODENOSCOPY, 2021-08-28 10:58:00 [facility] WITH BIOPSY [facility] TRANSFUSE LEUKO-REDUCED RED 2021-08-28 08:21:00 RainSidra [facility] HEMOGLOBIN AND HEMATOCRIT 2021-08-28 02:06:00 Funmilayo Peralta [facility] IRON, TIBC, % SAT. (WITHOUT 2021-08-28 02:06:00 [facility] FERRITIN) [facility] FERRITIN 2021-08-28 02:06:00 [facility] VITAMIN B12 AND FOLATE 2021-08-28 02:06:00 [facility] CBC W/PLT COUNT & AUTO 2021-08-28 02:06:[address] [facility] BASIC METABOLIC PANEL 2021-08-28 02:06:00 Funmilayo Peralta [facility] PHOSPHORUS 2021-08-28 02:06:00 Pete Lorenzo [facility] CBC W/PLT COUNT & AUTO 2021-08-28 02:06:[address] [facility] TRANSFUSE LEUKO-REDUCED RED 2021-08-27 18:20:00 Funmilayo Peralta [facility] HIGH SENSITIVITY TROPONIN I 2021-08-27 18:04:00 Funmilayo Peralta [facility] PREPARE PACKED RBC 2021-08-27 13:46:17 Diya Rolon [facility] CBC W/PLT COUNT & AUTO 2021-08-27 13:40:[address] [facility] BASIC METABOLIC PANEL 2021-08-27 13:40:00 Funmilayo Peralta [facility] PROTHROMBIN TIME/INR 2021-08-27 13:40:00 Funmilayo Peralta [facility] HIGH SENSITIVITY TROPONIN I 2021-08-27 13:40:00 [facility], AUTOMATED 2021-08-27 13:40:00 Fabian [facility] CBC W/PLT COUNT & AUTO 2021-08-27 13:40:00 Fabian Funmilayo [facility] ABORH CONFIRMATION (LAB 2021-08-27 13:14:00 Diya Rolon [facility] ONLY) Medical Branch HB ABO GROUPING 2021-08-27 12:25:00 Diya Rolon [facility] COVID-19 (ID NOW RAPID 2021-08-27 11:56:00 Diya Rolon [facility] TESTING) Medical Branch COMP. METABOLIC PANEL 2021-08-27 11:26:00 Diya Rolon [facility] ([id number]) Medical Branch XR CHEST 1 VW 2021-08-27 11:12:00 Diya Rolon [facility] LIPASE 2021-08-27 10:57:00 Diya Rolon [facility] TROPONIN I 2021-08-27 10:57:00 Diya Rolon [facility] CBC WITH DIFF 2021-08-27 10:57:00 Diya Rolon [facility] PROTHROMBIN TIME / INR 2021-08-27 10:57:00 Diya Rolon [facility] ACTIVATED PARTIAL THRMPLAS 2021-08-27 10:57:00 Diya Rolon [facility] N-TERMINAL PRO-BNP 2021-08-27 10:57:00 Diya Rolon [facility] NOTICE OF PRIVACY PRACTICES 2021-08-27 10:38:00 Doctor Gino nj [facility] [place] CONSENT/REFUSAL FOR 2021-08-27 10:37:13 Doctor Serrano [facility] DIAGNOSIS AND TREATMENT [facility] [place] AUTHORIZATION FOR RELEASE 2021-08-13 05:01:00 Doctor Serrano [facility] AUTHORIZATION FOR RELEASE 2021-07-31 05:01:00 Doctor Serrano [facility] CT CERVICAL SPINE WO 2021-06-13 22:02:07 Justus Kirkpatrick [facility] CONTRAST Medical Branch CT HEAD WO CONTRAST 2021-06-13 22:02:07 Justus Kirkpatricki ty [facility] CONSENT/REFUSAL FOR 2021-06-13 21:34:37 Doctor Unassigned, [facility] DIAGNOSIS AND TREATMENT [facility] ELECTROCARDIOGRAM COMPLETE 2020-06-12 20:33:54 Sara Reynaga [facility] Plan of Care Planned Activity Planned Date Details Comments Source Future Scheduled 2030-07-25 Screening for malignant [facility] Test 00:00:00 neoplasm of colon Medical Ce nter (procedure) [code = 444440623] Future Scheduled 2030-07-25 Screening for malignant [facility] Test 00:00:00 neoplasm of colon Medical Ce nter (procedure) [code = 911078519] Future Scheduled 2022-01-07 INFLUENZA VACCINE (#1) [facility] 00:00[facility]00 [code = INFLUENZA Medical Ce nter VACCINE (#1)] Future Scheduled 2021-05-[address] [facility] Test 00:00:00 (12+) [code = Medical Center DEPRESSION SCREENING (12+)] Future Scheduled 2021-05-09 FALLS RISK SCREENING [facility] Test 00:00:00 [code = FALLS RISK Medical C enter SCREENING] Future Scheduled 2021-02-[address] [facility] Test 00:00:00 aneurysm screening Medical C enter (procedure) [code = 750220994] Future Scheduled 2020-11-24 COVID-19 Vaccine (1) [facility] Test 08:10:33 [code = COVID-19 of Medicine Vaccine (1)] Future Scheduled 2020-11-24 TETANUS SHOT (ADULT) [facility] Test 08:10:33 [code = TETANUS SHOT of Medi cine (ADULT)] Future Scheduled 2020-11-24 BMI FOLLOW UP PLAN [facility] Test 08:10:33 [code = BMI FOLLOW UP of Med icine PLAN] Future Scheduled 2020-11-24 Hepatitis C screening [facility] Test 08:10:33 (procedure) [code = of Medic ine 344249694] Future Scheduled 2020-11-24 Human immunodeficiency [employer] Test 08:10:33 virus screening of Medicine (procedure) [code = 690344612] Future Scheduled 2020-11-24 ZOSTER VACCINE (1 of 2) [employer] Test 08:10:33 [code = ZOSTER VACCINE of Me dicine (1 of 2)] Future Scheduled 2020-11-24 MEDICARE AWV (Initial) [facility] Test 08:10:33 [code = MEDICARE AWV of Medi cine (Initial)] Future Scheduled 2020-11-24 FLU VACCINE > 6 MONTHS [facility] Test 08:10:33 [code = FLU VACCINE > 6 of M edicine MONTHS] Future Scheduled 2020-11-24 Screening for malignant [facility] Test 08:10:33 neoplasm of colon of Medicin e (procedure) [code = 663572285] Future Scheduled 2020-09-18 COVID-19 Vaccine (1) [facility] Test 16:08:01 [code = COVID-19 of Medicine Vaccine (1)] Future Scheduled 2020-09-18 TETANUS SHOT (ADULT) [facility] Test 16:08:01 [code = TETANUS SHOT of Medi cine (ADULT)] Future Scheduled 2020-09-18 BMI FOLLOW UP PLAN [facility] Test 16:08:01 [code = BMI FOLLOW UP of Med icine PLAN] Future Scheduled 2020-09-18 Hepatitis C screening [facility] Test 16:08:01 (procedure) [code = of Medic ine 516181223] Future Scheduled 2020-09-18 Human immunodeficiency B [facility] Test 16:08:01 virus screening of Medicine (procedure) [code = 216979880] Future Scheduled 2020-09-18 ZOSTER VACCINE (1 of 2) [employer] Test 16:08:01 [code = ZOSTER VACCINE of Me dicine (1 of 2)] Future Scheduled 2020-09-18 MEDICARE AWV (Initial) [facility] Test 16:08:01 [code = MEDICARE AWV of Medi cine (Initial)] Future Scheduled 2020-09-18 FLU VACCINE > 6 MONTHS [facility] Test 16:08:01 [code = FLU VACCINE > 6 of M edicine MONTHS] Future Scheduled 2020-09-18 Screening for malignant [facility] Test 16:08:01 neoplasm of colon of Medicin e (procedure) [code = 262737593] Future Scheduled 2020-09-15 TETANUS SHOT (ADULT) [facility] Test 14:51:20 [code = TETANUS SHOT of Medi cine (ADULT)] Future Scheduled 2020-09-15 COVID-19 Vaccine (1) [employer] Test 14:51:20 [code = COVID-19 of Medicine Vaccine (1)] Future Scheduled 2020-09-15 BMI FOLLOW UP PLAN [employer] Test 14:51:20 [code = BMI FOLLOW UP of Med icine PLAN] Future Scheduled 2020-09-15 Hepatitis C screening [facility] [employer] [place] [employer] Test 14:51:20 (procedure) [code = of Medic ine 975759033] Future Scheduled 2020-09-15 Human immunodeficiency B [facility] Test 14:51:20 virus screening of Medicine (procedure) [code = 364732548] Future Scheduled 2020-09-15 ZOSTER VACCINE (1 of 2) [facility] Test 14:51:20 [code = ZOSTER VACCINE of Me dicine (1 of 2)] Future Scheduled 2020-09-15 MEDICARE AWV (Initial) B [facility] Test 14:51:20 [code = MEDICARE AWV of Medi [employer] (Initial)] Future Scheduled 2020-09-15 FLU [facility]INE [facility] [code = FLU VACCINE > 6 of M edicine MONTHS] Future Scheduled 2020-09-15 Screening for malignant [facility] Test 14:51:20 neoplasm of colon of Medicin e (procedure) [code = 198142908] Diagnostic Test 2020-06-26 CT CHEST WO CONTRAST Expected: [employer] Pending 00:00:00 [code = 75854-9] 06/26/2020, of Medicine Expires: 10/24/2020 Diagnostic Test 2020-06-26 CT ABDOMEN PELVIS W WO Expected: [employer] Pending 00:00:00 CONTRAST [code = 06/26/2020, of Medicine 49697-3] Expires: 10/24/2020 Diagnostic Test 2020-06-12 MYOCARD PERFUSION - Expected: [employer] Pending 00:00:00 LEXISCAN [code = 72574] 06/12/2020, of M edicine Expires: 12/10/2021 Diagnostic Test 2020-06-12 ECHO, COMPLETE [code = Expected: [employer] Pending 00:00:00 [id number]] 06/12/2020, of Medicine Expires: 12/10/2020 Diagnostic Test 2019-10-03 CT CHEST ABDOMEN PELVIS Expected: B [facility] Pending 00:00:00 WO CONTRAST [code = 10/03/2019, of Medic ine 47378] Expires: 04/20/2020 Future Scheduled 2006-02-18 SHINGLES VACCINES ([address] [facility] Test 00:00:00 2) [code = [facility] VACCINES (1 of 2)] Future Scheduled 1975-02-18 DTAP/TDAP/TD VACCINES [facility] 00:00:00 (1 - Tdap) [code = Medical C enter DTAP/TDAP/TD VACCINES (1 - Tdap)] Future Scheduled 1962-02-18 PNEUMOCOCCAL 65+ YRS ([address] [facility] Test 00:00:00 - PCV) [code = Medical Cente r PNEUMOCOCCAL 65+ YRS (1 - PCV)] Future Scheduled 1956 COVID-19 VACCINE (#1) [facility] 00:00:00 [code = COVID-[address] VACCINE (#1)] Future Scheduled 1956 CT Colonography (combo) [facility] Test 00:00:00 [code = CT Colonography [facility] (combo)] Future Scheduled 1956 Screening for malignant [facility] Test 00:00:00 neoplasm of colon Medical Ce nter (procedure) [code = 644466427] Future Scheduled 1956 Screening for malignant [facility] Test 00:00:00 neoplasm of colon Medical Ce nter (procedure) [code = 133295274] Future Scheduled 1955 Sigmoidoscopy [code = [facility] Sigmoidoscopy] Medical Cente r Future Scheduled COLON CANCER SCREENING: [employer] Test COLONOSCOPY [code = of Medic ine COLON CANCER SCREENING: COLONOSCOPY] Future Scheduled TETANUS SHOT (ADULT) [facility] Test [code = TETANUS SHOT of [...] MONTHS] Future Scheduled COLON CANCER SCREENING: [employer] Test COLONOSCOPY [code = of Medic ine COLON CANCER SCREENING: COLONOSCOPY] Future Scheduled TETANUS SHOT (ADULT) [employer] Test [code = TETANUS SHOT [...] Scheduled ZOSTER VACCINE (1 of 2) [employer] Test [code = ZOSTER VACCINE of Me dicine (1 of 2)] Future Scheduled MEDICARE IPPE (WELCOME [employer] [facility] TO MEDICARE) [code = of Medi cine MEDICARE IPPE (WELCOME TO MEDICARE)] Future Scheduled FLU VACCINE > 6 MONTHS [employer] Test [code = FLU VACCINE > 6 of M edicine MONTHS] Future Scheduled COLON CANCER SCREENING: [employer] Test COLONOSCOPY [code = of Medic ine COLON CANCER SCREENING: COLONOSCOPY] Future Scheduled TETANUS SHOT (ADULT) [employer] Test [code = TETANUS SHOT [...] MONTHS] Future Scheduled COLON CANCER SCREENING: [employer] Test COLONOSCOPY [code = of Medic ine COLON CANCER SCREENING: COLONOSCOPY] Future Scheduled COVID-19 Vaccine [employer] Evaluation [code = of Medici ne COVID-19 Vaccine Evaluation] Future Scheduled TETANUS SHOT (ADULT) [employer] [code = TETANUS SHOT [...] Future Scheduled FERRITIN [code = Ordered: [employer] [facility] 43237-4] 07/23/2020 of Medicine Future Scheduled Screening for malignant [employer] Test neoplasm of colon of Medicin e (procedure) [code = 977013189] Future Scheduled TETANUS SHOT (ADULT) [employer] [facility] [code = TETANUS SHOT of Medi cine (ADULT)] Future Scheduled COVID-19 Vaccine (1) [employer] [facility] [code = COVID-19 of Medicine Vaccine (1)] Future Scheduled BMI FOLLOW UP PLAN [employer] [facility] [code = BMI FOLLOW UP of Med icine PLAN] Future Scheduled Hepatitis C screening [employer] [facility] (procedure) [code = of Medic ine 887448056] Future Scheduled Human immunodeficiency [facility] virus screening of Medicine (procedure) [code = 547536541] Future Scheduled ZOSTER VACCINE (1 of 2) [employer] Test [code = ZOSTER VACCINE of Me dicine (1 of 2)] Future Scheduled MEDICARE AWV (Initial) [employer] [facility] [code = MEDICARE AWV of Medi cine (Initial)] Future Scheduled FLU VACCINE > 6 MONTHS [employer] [facility] [code = FLU VACCINE > 6 of M edicine MONTHS] Future Scheduled TETANUS SHOT (ADULT) [employer] Test [code = TETANUS SHOT of Medi cine (ADULT)] Future Scheduled COVID-19 Vaccine (1) [employer] Test [code = COVID-19 of Medicine Vaccine (1)] Future Scheduled BMI FOLLOW UP PLAN [employer] Test [code = BMI FOLLOW UP of Med icine PLAN] Future Scheduled Hepatitis C screening [employer] Test (procedure) [code = of Medic ine 108992455] Future Scheduled Human immunodeficiency [employer] virus screening of Medicine (procedure) [code = 605905435] Future Scheduled ZOSTER VACCINE (1 of 2) [employer] Test [code = ZOSTER VACCINE of Me dicine (1 of 2)] Future Scheduled MEDICARE AWV (Initial) [employer] [facility] [code = MEDICARE AWV of Medi cine (Initial)] Future Scheduled FLU VACCINE > 6 MONTHS [employer] Test [code = FLU VACCINE > 6 of M edicine MONTHS] Future Scheduled Screening for malignant [employer] Test neoplasm of colon of Medicin e (procedure) [code = 485017663] Future Scheduled COLON CANCER SCREENING: [employer] COLONOSCOPY [code = of Medic ine COLON CANCER SCREENING: COLONOSCOPY] Future Scheduled TETANUS SHOT (ADULT) [employer] Test [code = TETANUS SHOT [...] MONTHS] Future Scheduled COLON CANCER SCREENING: [employer] COLONOSCOPY [code = of Medic ine COLON CANCER SCREENING: COLONOSCOPY] Future Scheduled TETANUS SHOT (ADULT) [employer] Test [code = TETANUS SHOT [...] Type Clinicians Facility Department ID 2020-07-23 Inpatient [facility] [id number] SLE 18:00:00 YAZAN 2022-03-02 2022-03-02 Abstract Kandi [facility] [id number] 00:00:00 00:00:00 [facility] 2022-01-01 2022-01-01 Telephone Gabrielle [facility] [id number] 00:00[facility]00 00:00:00 Jacklyn Delgado [facility] 2021-10-08 2021-10-08 Telephone Edie [facility] [id number] 00:00:00 00:00:00 [facility] 2021-09-23 2021-09-23 Outpatient Brendon [facility] [id number] Univers 14:00:00 14:00:00 JAVIER cedeno [facility] 2021-09-22 2021-09-22 Orders Doctor SARA 1.2.840.114 [id number] Univers 00:00:00 00:00:00 Only Unassigned, GADIEL 350.1.13.10 ity of [place] [facility] 4.2.7.2.686 Naveen as [phone] [address] 2021-09-01 2021-09-01 [facility] [id number] [facility] [address] 13:57:47 23:59:[address] [facility] 2021-09-01 2021-09-01 Outpatient ADAMARIS [facility] [id number] SLE 13:57:47 23:59:00 [facility] 2021-09-01 2021-09-01 Outpatient ADAMARIS CHINO SLE SLE [id number] SLE 13:57:36 13:56:00 [facility] 2021-09-01 2021-09-01 [facility] [id number] 13:00:00 13:56:[address] [facility] 2021-09-01 2021-09-01 Evaluation Matti, [facility] [id number] 10:40:00 11:10:00 [facility] 2021-09-01 2021-09-01 Outpatient EL SLEH SLEH [id number] SLEH 10:43:02 10:43:02 2021-09-01 2021-09-01 Outpatient EL SLEH SLEH [id number] SLEH 10:42:51 10:42:51 2021-09-01 2021-09-01 Outpatient EL SLEH SLEH [id number] SLEH 10:42:15 10:42:15 2021-09-01 2021-09-01 Outpatient EL SLEH SLEH [id number] SLEH 10:39:54 10:39:54 2021-09-01 2021-09-01 Follow-Up MattiKayla reyes [facility] [id number] [facility] 10:00:00 10:30:00 Pema Fowler [facility] 2021-09-01 2021-09-01 Follow-Up Matti, [facility] [id number] 09:30:00 10:00:00 [facility] 2021-09-01 2021-09-01 Evaluation Matti, [facility] [id number] 09:00:00 09:30:00 [facility] 2021-08-27 2021-08-29 [facility] [id number] 10:42:00 14:16:00 Encounter Rain [facility] 2021-08-27 2021-08-29 Inpatient ER KALANI CLARKE Cardiology 20 [id number] SLEH 10:42:00 14:16:00 [facility] 2021-08-28 2021-08-28 Anesthesia Rosie [facility] [id number] 11:08:00 11:53:00 Event [facility] 2021-08-28 2021-08-28 Surgery Magalys, [facility] [id number] 11:00:00 11:48:00 [facility] 2021-08-27 2021-08-27 Emergency X GONZALES, [facility] ERT [id number] Univers 05:49:00 09:49:00 DIYA cedeno [facility] 2021-08-27 2021-08-27 [facility] [id number] Univers 05:49:00 09:49:00 [place] 350.1.13.10 i [facility] 4.2.7.2.686 [facility] [phone] [address] 2021-08-27 2021-08-27 Outpatient EL MATTI, SLEH SLEH [id number] SLEH 00:00:00 00:00:00 BHAMIDIPATI 2021-08-27 2021-08-27 Outpatient EL SLEH SLEH [id number] SLEH 00:00:00 00:00:00 2021-08-27 2021-08-27 Outpatient EL MATTI, SLEH SLEH [id number] SLEH 00:00:00 00:00:00 AMIDIPA 2021-08-27 2021-08-27 Outpatient EL MATTI, SLEH SLEH [id number] SLEH 00:00:00 00:00:00 AMIDIPATI 2021-08-27 2021-08-27 Outpatient EL MATTI, SLEH SLEH [id number] SLEH 00:00:00 00:00:00 AMIDIPA 2021-08-27 2021-08-27 Telephone Edie [facility] [id number] 00:00:00 00:00:00 [facility] 2021-08-26 2021-08-26 Telephone Edie [facility] [id number] 00:00:00 00:00:00 [facility] 2021-08-13 2021-08-13 Orders Doctor RUIZ 1.2.840.114 [id number] Univers 00:00:00 00:00:00 Only Unassigned, GADIEL 350.1.13.10 it[place] [facility] 4.2.7.2.686 Naveen as [phone] [address] 2021-07-31 2021-07-31 Orders Doctor RUIZ 1.2.840.114 [id number] Univers 00:00:00 00:00:00 Only Unassigned, GADIEL 350.1.13.10 ity of [place] [facility] 4.2.7.2.686 Nave[place] as [phone] [address] 2021-07-09 2021-07-09 Orders Labradnh, [facility] [id number] 00:00:00 00:00:00 Only [facility] 2021-07-07 2021-07-07 [facility] [id number] 00:00:00 00:00:00 [facility] 2021-07-07 2021-07-07 [facility]at [facility], [facility] [id number] 00:00:00 00:00:00 ion [facility] 2021-07-06 2021-07-06 [facility] [id number] 00:00:00 00:00:00 [facility] 2021-07-06 2021-07-06 [facility] [id number] 00:00:00 00:00:00 Only [facility] 2021-06-13 2021-06-13 Emergency Justus Kirkpatrick [facility] 1.2.840.114 [id number] Univers 15:44:00 16:53:00 T DENISE 350.1.13.10 i ty [facility] 4.2.7.2.686 [facility] [phone] [place] [id number] [facility] 2021-06-13 2021-06-13 Emergency X JUSTUS KIRKPATRICK [facility] ERT [id number] Univers 15:44:00 16:53:00 ity of [facility] 2020-12-30 2020-12-30 Outpatient DMG DMG [id number] [facility] 08:00:00 08:00:00 0824 [facility] 2020-09-18 2020-09-18 Office ERNESTINA VELARDE BCM 1.2.840.114 [id number] [facility] 15:54:57 17:38:09 Visit AMBULATOR 350.1.13.21 College Y 0.2.7.2.686 of [id number] [facility] 335 e 2020-09-16 2020-09-16 Outpatient EL SLEH SLE [id number] SLEH 00:00:00 00:00:00 2020-09-15 2020-09-15 Office Kalen Hurtado [facility] 1.2.840.114 [id number] [facility] 14:48:22 15:18:22 Visit Mook AMBULATOR 350.1.13.21 College Y 0.2.7.2.686 of [phone] [facility] 380 e 2020-09-15 2020-09-15 Outpatient EL SLE SLE [id number] SLEH 00:00:00 00:00:00 2020-09-09 2020-09-09 Office Hector, BSC 1.2.840.114 [id number] 13:42:54 14:02:54 Visit Chandra Shahnaz 350.1.13.21 Maximo 0.2.7.2.686 [id number] 530 2020-09-09 2020-09-09 Office Hector BSC 1.2.840.114 [id number] [facility] 13:42:54 14:02:54 Visit Chandra Shahnaz 350.1.13.21 Co llege [facility] 0.2.7.2.686 of [id number] [facility] 530 e 2020-07-23 2020-07-23 Office Hector BSC 1.2.840.114 [id number] 14:58:20 15:33:17 Visit Chandra Shahnaz 350.1.13.21 [place]imo 0.2.7.2.686 [id number] 530 2020-07-23 2020-07-23 Office Hector, [facility] 1.2.840.114 [id number] [facility] 14:58:20 15:33:17 Visit Chandra Shahnaz 350.1.13.21 Co llege [facility] 0.2.7.2.686 of [id number] [facility] 530 e 2020-06-12 2020-06-12 Office Ronnell, BCAislinn 1.2.840.114 [id number] 13:43:36 15:53:35 Visit Sara Meyers AMBULATOR 350.1.13.21 Y 0.2.7.2.686 [id number] 375 2020-06-12 2020-06-12 Office Ronnell, BCM 1.2.840.[id number] [place] [address] 13:43:36 15:53:35 Visit Sara Meyers AMBULATOR 350.1.13.21 College Y 0.2.7.2.686 of [id number] [facility] 375 e 2020-06-04 2020-06-04 Office Ronnell, [facility] 1.2.840.[id number] [place] [address] 11:30:00 12:00:00 Visit Sara Meyers AMBULATOR 350.1.13.21 College Y 0.2.7.2.686 of [id number] [facility] 375 e 2020-03-26 2020-03-26 Office Hector, [facility] 1.2.840.114 [id number] 14:34:45 16:13:29 Visit Chandra WaiteNair 350.1.13.21 [place] 0.2.7.2.686 [id number] 530 2020-03-26 2020-03-26 Office Hector, [facility] 1.2.840.[id number] [place] [address] 14:34:45 16:13:29 Visit Chandra Shahnaz 350.1.13.21 Co llege [employer] 0.2.7.2.686 of [id number] [facility] 530 e 2020-03-13 2020-03-13 Office Kalen Hurtado BC 1.2.840.114 [id number] 13:22:23 13:52:23 Visit Mook AMBULATOR 350.1.13.21 Y 0.2.7.2.686 [id number] 380 2020-03-13 2020-03-13 Office Kalen Hurtado BCAislinn 1.2.840.114 [id number] [facility] 13:22:23 13:52:23 Visit Mook AMBULATOR 350.1.13.21 College Y 0.2.7.2.686 of [id number] [facility] 380 e 2019-12-06 2019-12-06 Office Breanna Kalen BCM 1.2.840.114 [id number] 15:08:57 15:38:57 Visit Mook AMBULATOR 350.1.13.21 Y 0.2.7.2.686 [id number] [facility] 2019-12-06 2019-12-06 Office Breanna, Kalen BCM 1.2.840.114 [id number] [facility] 15:08:57 15:38:57 Visit Mook AMBULATOR 350.1.13.21 College Y 0.2.7.2.686 of [id number] [facility] 380 e 2019-11-26 2019-11-26 Office Kalen Hurtado ESTRELLAM 1.2.840.114 [id number] 11:32:45 16:18:07 Visit Mook AMBULATOR 350.1.13.21 Y 0.2.7.2.686 [id number] [facility] 2019-11-26 2019-11-26 Office Kalen Hurtado BCM 1.2.840.114 [id number] [facility] 11:32:45 16:18:07 Visit Mook AMBULATOR 350.1.13.21 College Y 0.2.7.2.686 of [id number] [facility] 380 e 2019-11-15 2019-11-15 Outpatient CALDERON, SLEH SLEH [id number] SLEH 00:00:00 00:00:00 CHANDRA 2019-11-15 2019-11-15 Outpatient EL CALDERON, SLEH SLEH [id number] SLEH 00:00:00 00:00:00 CHANDRA 2019-11-12 2019-11-12 Outpatient EL CALDERON, SLEH SLEH [id number] SLEH 00:00:00 00:00:00 CHANDRA 2019-11-12 2019-11-12 Outpatient EL CALDERON, SLEH SLEH [id number] SLEH 00:00:00 00:00:00 CHANDRA 2019-11-01 2019-11-01 Outpatient EL CALDERON, SLEH SLEH [id number] SLEH 00:00:00 00:00:00 CHANDRA 2019-11-01 2019-11-01 Outpatient CALDERON, SLEH SLEH [id number] SLEH 00:00:00 00:00:00 CHANDRA 2019-10-16 2019-10-16 Outpatient CALDERON, SLEH SLEH [id number] SLEH 00:00:00 00:00:00 CHANDRA 2019-10-16 2019-10-16 Outpatient EL CALDERON, SLEH SLEH [id number] SLEH 00:00:00 00:00:00 CHANDRA 2019-10-04 2019-10-04 Outpatient CALDERON, SLEH SLEH [id number] SLEH 00:00:00 00:00:00 CHANDRA 2019-10-04 2019-10-04 Outpatient EL CALDERON, SLEH SLEH [id number] SLEH 00:00:00 00:00:00 CHANDRA 2019-09-20 2019-09-20 Outpatient CALDERON, SLEH SLEH [id number] SLEH 00:00:00 00:00:00 CHANDRA 2019-09-20 2019-09-20 Outpatient EL CALDERON, SLEH SLEH [id number] SLEH 00:00:00 00:00:00 CHANDRA 2019-09-19 2019-09-19 Office Calderon, [facility] 1.2.840.114 [id number] 16:13:39 16:30:34 Visit Chandra Shahnaz 350.1.13.21 [place] 0.2.7.2.686 [id number] 2019-09-19 2019-09-19 Office Calderon, [facility] 1.2.840.[id number] [place] [address] 16:13:39 16:30:34 Visit Chandra Shahnaz 350.1.13.21 Co llege [facility]imo 0.2.7.2.686 of [id number] [place] [address] e Results Test Description Test Time Test Comments Results Result [facility] e Comments U/S, PELVIS, WITH 2021-09-01 Reason for DOPPLER 15:: Exam:->assess iliac vessels [facility] for renal [facility] transplant CENTERName: ASHIA ANDREA : 1955 Sex: M FI NAL REPORT TECHNIQUE: Grayscale, color Doppler, and spectral [...] common and external iliac veins are patent. IMPRESSION:Unremarkab le Doppler ultrasound of the iliac vessels bilaterally. Signed: Lois Ribera [facility] Verified Date/Time: 09/01/2021 15:26:03 U/S, ABDOMINAL, 2021-09-01 Reason for COMPLETE 15:: Exam:->Kidney transplant [facility] evaluation; [facility] comment on CENTERName: [place] destinee of renal ASHIA VIDAL : cysts on each 1955 Sex: side to meet M criteria for Acquired Cystic FI Kidney Disease NAL REPORT TECHNIQUE: Grayscale ultrasound of the abdomen. [...] There is increased echogenicity of the bilateral [place] kidneys. The kidneys are normal in size. [...] Lois Ribera MDReport Verified Date/Time: 09/01/2021 15:23:23 Prepare Leuko-Red RBC 2021-08-29 23:54:00 Test Item Value Reference Range Interpretation Comme nts CROSSMATCH (test code = 2264) COMPATIBLE Unit ABO (test code = 8013456) B Pos UNIT NUMBER (test code = 934-0) [id number] Status (test code = 2267638) TX_TIMEINCHART Blood Bank Product (test code = 2263) RED BLOOD CELLS PRODUCT CODE (test code = 933-2) [id number] [id number] 12:40:29 Test Item Value Reference Range Interpretation Comments Case Report (test code Surgical Pathology = 104) Report Case: [id number] Authorizing Provider: Ji Dowell MD Collected: 08/28/2021 11:16 AM Ordering Location: [address] Received: 08/28/2021 04:08 PM Service Pathologist: Ezequiel Palomino MD Specimen: Biopsy, Gastric, random biopsies DIAGNOSIS (test code = e8zcfTQnISKpl8qyWESnfY 3220) FuZzEwMzNcZnRuYmpcdWMx IHtccnRmMVxlcGljOTYwMV giosTpANTbzBDnV3Wxcuxr EJluXO0pRT9njHhqnZQvdL BkVXEuPbPnh9pid400dOIw n0smSDHJngvbkKp7dSzdX9 9bk4N0QowbM99wjSUlCIM7 DOUvIEJhuWObPNNjGBP2AZ AkfRHzG9sgDHHkVC3kaopl IWpoRWpsOWWwgCI4GKXbaX XmF1FmCJQeDOiqIBGzvfa4 JhIqVz9gdMNbbQgiJBcvKX HgVPDwYEpmAJQtAkKfB6DH DHOFUPekBvKEAF7CJSOKSQ 4GA5r0GLXzzbcdfSxhIGex pD95YjWtOHETZNMWGFuRMS URJzITBDkhXC0DGT3YUN5U YNLmWVRNP4ZSEWcYJIflSS 7NR7PNYtBpI2tCC10EKyPA LXFYQfvTESMrkKKgWR1eFU CGPLKUQzRSBISFEKtTKS0S KPRCNOKOOTGipi81JCZ8Wc Qfy2L0LEU2PGBrKSTxd4vz ZGVmbGFuZzEwMzNcZnRuYm bwcIJtRFIlQxKel4wwd277 zCVsy8qyXKRlSwE8xPWkLO WepNYeI602NCHpQNmoa0sd v3GhMWGvtRYwr2W8RFHBvi urcDe6vHheQ47az5I0Wjly F4yaQSEjAHMrV3YeGS0kAX UaPty1RMM3TVB7SFJkCGLh D6CvRH4hFOQapUHvPBm1z7 zpxZltFUXlOFE5m1tfNJyu rwAeYH3zst3ldOx4j5jqsd LqAQVcHOSygSXGRVQhX6Ln lCucJv4baKp2fIyrMtnuOT X6Kil9BP1mrm92ypv3vRkv KUQnezufYkW2QAeaQXYzfe iyHBq6EVeoKCDboFW7AXGb qXKcE0UsZDKvVJ2csae1BA V2ZGocUEAiHrV1YASbrTUr XIGoqUtlEGsss285ANP6Sc ZrXQ6vC0Kck0L4nX9luLVs GVXivZAbUuDvGMIrgk3brB DxYRutt6QuPAA6gcU6cWZh dGDvWKYlNhT3CUuhEJ2sas 96KCChKUE9zc4weMIvjSib uoZtuWIkHWieR8EnAHSqr9 04RYMcB4CqJOJzv7Z5coHe ErGiYGUpfKE2tbT7KEInQE 6mcccvb4grWBkjIUauNEEo zcI9joG9WOUotTRuN2RcaQ 3aAEHmOH1bmlrqb9kbGXG9 OVrnOKBwVCT0YlWsTXYcp2 Hzhyo0WiHpw2MyuBPhUGqp Z32er832JZJqnpLgG6wslU FpblxwbGFpblxmMFxmczI0 XHFsXGxhbmcxMDMzXGhpY2 qmYhLsXKYbkDjrYJndn6Gt XGYxXGZzMjJcdGFiXHRhYl n3ELQjkTLvQBEqHaSzF2bs stemJlCVGCYod6cmH3xlvD WYlNSnK6EiVCuciuEwBRpc EDmyGeDtBEu3TC31VgDrST Bhcn19 COMMENT (test code = e0lblXPsPQNvsOM9RhZvNC 5172) Ylx8cbd7FmiBUkbABkYLlx qNSytiZeht02mLY6hE86FP 3oDLAjIyU8HFPlhhR5Ptr2 ETPsFSWntHRvN861w3uoa5 pbjiHtxMI2tZvaPYQcrdbq ZfJ5QAwvHHThbbtlOLf8QB wyNJAviTZ9TWVorEXlK5Rr BXCuAE5ncpe3PCC4QSteWT TcZyB1WNJvcTXyAELspLgc PGqwz633DFV2WhLeYLGfqp MdgPfqgG7oIdDmBTEOooAf t0EptUivabLdr4V9IZdibw HyWUIlWUpyLK5xCLQkou9= CPT Code(s) (test code b9hsxDSmGFLahRV8ZmLsBV = 8077) Ojk8olg7QsiOJqbMZdBZns cASflyWpwf58bVS0jL94YE 4xSRRuSuW6VJOskzP2Hme5 TVRoTIEzpTLyN425j9nst0 gjkpZqnYP8mJajCNLwehga ZlQ5YTthXBNimezdFLh0SC mnXUQkuGJ9AYMjjUVzN0Tx UGMqAS5smpf2GJS1COzaPW WfQvZ6SJHvbZIaWRXdiVyg LYked356UTZ6ByPtIFRkym CmnEgeuA7vObSrJAE1YLVz NVxwYXJ9 CLINICAL HISTORY (test c7tdjNMhEPTwbCP7IcBcLQ code = 3356) Jex6yzi9ApcQRsnBEgKUld sRDiopXplx06lBA3tV10ZS 8fSLLkTsJ3XWHcuxW3Npo6 OFCpGFMgaUHaL200p0rin0 vegfWicWE3cAqfAHPvdart WkW7JUboYEZktisjZOo4CW lzGWKdmRY9QNRifIOmI0Qk QIAsAO8ulmy1JVC0UQwlAJ YyMjP7FHRtqIAbWAIcrLob FZfum316ZGA7GhAnCYGcku DdnIworQ7iVeZfLHZRrfHk qOOeSNXlj9JpY5sllAUrFO C4fCVbtWPbkE== GROSS DESCRIPTION (test u1eqsLQyYUOvuFPRPWMvXe code = 3066826936) kgnyTjGOLmtIUcK9Fuegor DHkvWD1eFO2mzKochRHdgI SpDQ2BAAMjYtOlGHWpcKWr iyFlIqIsUIWwaPQveHZ7PF VjOP5eleplZZjdLTlkJPUb ugS4IOEazZXtH3EwRDKnGA 4vdyvtYBX9JCrjoA4ducWK RddbLc9huDRzqBjkVvLjOn NoYXJzZXQwXGZuaWwgQXJp HTa3cL5TKklfN79ng9A9Ev z6PMFdZDDhY4UfJX3cIQGs uWFiZ67STmwySBV1ZPWPNu jtHWLaAQ9Du4zlNDZhiPZa PNX5YZydrNBdGOFnSQDvKS m7ABLvMQogeZGcUE0zaDkf KrbxzNbpk7LugUBnQHilLD MnZCEeTHveAYEvOV5YSnHn ANIyREQ9HkAbIOb8HSu1KG 9SPaWrWIZsCBU4BRJwLtBc LRf6JXsfHR3PADN1FCHaCd odFBB4GMMlTUQcADKqUnVc XGYgQXJpYWwgXFxmbCBcXG 3joIoywPBhvlZLPeHJoT1x a6qfWBmhf4EcjOUoMRKdhz ANClxlcGljTmVzdERvYzEg DQpcbHRycGFyXGxpbjBccm luMCANClxsdHJjaFxjZjFc ZnMyMCBSZWNlaXZlZCBpbi Xag5QpPSqxlvFwFXLahIXn IHdpdGggdGhlIHBhdGllbn XhP5T5knAvNL2dUHXfKLTu Z8VtQAKrS95bHLYyrM9yAA ZiNO3cLWm0ICNqZSIcYetc MjfsrXQ2RIZsJUB9cbkhAj OfluAqI81ct1pabVDrc2Ym IIA8RMbxr6wavZvhTDXoLP s9BdEsgzN7zpBbPEDckZcy RYKaEXw5SjBjihF6sIWuyL WaMrBjR37aqbAhNZ4sMHX1 pcykSaTaMiTjiT0uLZ23VT ErVYakWMtaYNV2CJJ9SFVy mSZpq5qqhq8dKVKcENWonI XvgJ3jhkXkeyHaoWQnpUO4 VBIjmD3coD54vyYfbvWcGS FqVUX7TFMFKR6hvEkdYQNv bGluZSBFUywgcmVzaWRlbn YoyHIlWM7PWCOrcyMWVzyg ZjBcZnMyMiANClxwbGFpbl xlcGljTmVzdERvYzBccGxh nL12KMAouEJqSBM0PH0qAS RulrinLJTgADNkITY4NTum mJ01bMPtVYFrJHEeaTHuvW 6OZUUwGUD1XZhmqS49xRAi TE4MPMLgYVI6BIAnjBHnMP I8KY6odT4BeO== MICROSCOPIC DESCRIPTION l6twoHZjMCXtlQV4JyKsEW (test code = 3371) Kge1cxj7MyhSYhlMZiEYyb bPCthzIzep13yDJ0aS32YE 6iXSYiUmY3XWTlqhB0Wky9 BVXoXLJnuMYlZ615t9gmq5 uwdqHkkWR6rBvwMJAngyvd YcB5ROeiXFOywhxwDMl7QE ghOBZfkLT1YNFicINvP4Ku EYAmXI5xill4GWP4LTixUU GwNcA0UKJdeQEvOUZiuLkr KUxda921FQG8QpScSRUsuq ZngAazhN7pRuNbNDUFGXXb y7EmWZWySVAklx6= Gross assessment was [facility] performed at ([facility], = 2777) Department of Pathology, [address] [place] [address], Technical component was [facility] performed at ([facility], = 2778) Department of Pathology, [address] [place], [place] [id number], Professional component [facility] was performed at ([facility], code = 2779) Department of Pathology, [address] [place] [address], [place] campusTISSUE [id number] 12:40:29Surgical Pathology Report Case: [id number] Authorizing Provider: Ji Dowell MD Collected:08/28/2021 11:16 AM Ordering Location: [address] Received: 08/28/2021 04:08 PM ServicePathologist: Ezequiel Palomino MD Specimen: Biopsy, Gastric, random biopsies STOMACH, RANDOM, BIOPSY:- REACTIVE ANTRAL AND OXYNTIC MUCOSA WITH INACTIVE CHRONIC GASTRITIS- HELICOBACTER IS NOT SEEN Signing Pathologist Direct Phone Line: [phone] signed by Ezequiel Palomino MD on 08/29/2021 at 12:40 PMEndoscopy report was reviewed. [id number], unspecified typeA. Biopsy, Gastric.Received in formalin labeled with the patient's name, medical record number and "biopsy, gastric" and consists of 5 y ellow-pinedo to red-pinedo tissue fragments measuring 0.3 to 0.5 cm in greatest dimension. The specimen issubmitted in toto in cassette A1.ES, residentPerformed [facility], Department of [facility]ology, [address] [place] [address], [facility], [facility], [address] [place] [address], [facility], [facility] of [facility], [address] [place] [address], DRLTWRPBWL AND [id number] 08:28:24 Test Item Value Reference Range Interpretation Comments HEMOGLOBIN (BEAKER) (test code = 7.0 GM/DL 13.7-17.5 L 410) HEMATOCRIT (BEAKER) (test code = 21.8 % 40.1-51.0 L 411) Skin Fitter ID - 6000SARS-CoV2/RT-PCR (Asymptomatic ONLY)2021-08-29 01:40:55 Test Item Value Reference Range Interpretation Comments SARS-COV2/RT-PCR (test Negative Negative code = 11776-4) AJ (test code = AJ) Negative result for this test determines that [...] of detection for this assay is 100 copies/mL. This SARS-CoV-2 test is a real-time RT_PCR test [...] revoked under Section 564(g) of the Act. Testing was performed using the [employer] SARS-CoV-2 assay. Fact Sheet for Healthcare Providers:https://www.aislinn huynhkerr/antonio/RT SARS-CoV-2 HCP Fact Sheet 51-977625.pdf Fact Sheet for Healthcare Patients:https://www.placido hughesAtriCure/antonio/RT SARS-CoV-2 Patient Fact Sheet EN 51-496511A1.pdf Lab Interpretation Normal (test code = 60219-9) [facility])2021-08-29 01:40:55 Test Item Value Reference Range Interpretation Comments SARS-COV2/RT-PCR (test code = Negative Negative 3900286) Negative result for this test determines that [...] under Section 564(g) of the Act.Testing was performed using [employer] SARS-CoV-2 assay.Fact Sheet for Healthcare Providers:https://www.[employer].Tiltap/antonio/RT SARS-CoV-2 HCP Fact Sheet 51- 737690.pdfFact Sheet for Healthcare Patients:https://www.[employer].Tiltap/antonio/RT SARS-CoV-2 Patient Fact Sheet EN 51-026645H8.pdfPTH, [id number] 01:17:15 Test Item Value Reference Range Interpretation Comments PARATHYROID HORMONE INTACT 478.9 pg/mL 8.5-72.5 H (BEAKER) (test code = 577) Skin Fitter ID - TAVIA MHEMOGLOBIN AND [id number] 00:56:51 Test Item Value Reference Range Interpretation Comments HEMOGLOBIN (BEAKER) (test code = 7.3 GM/DL 13.7-17.5 L 410) HEMATOCRIT (BEAKER) (test code = 23.0 % 40.1-51.0 L 411) Skin Fitter ID - [id number] B SURFACE [id number] 19:59:22 Test Item Value Reference Range Interpretation Comments HEPATITIS B SURFACE ANTIGEN (2) Nonreactive Nonreactive (BEAKER) (test code = 2585) Specimen is considered negative for HBsAg.HEMOGLOBIN AND [id number] 18:47:46 Test Item Value Reference Range Interpretation Comments HEMOGLOBIN (BEAKER) (test code = 7.7 GM/DL 13.7-17.5 L 410) HEMATOCRIT (BEAKER) (test code = 25.1 % 40.1-51.0 L 411) Skin Fitter ID - [id number] 10:35:30 Test Item Value Reference Range Interpretation Comments PHOSPHORUS (BEAKER) (test code = 6.0 mg/dL 2.3-4.7 H 604) Skin Fitter ID - TAVIA [id number] 03:09:01 Test Item Value Reference Range Interpretation Comments FERRITIN (BEAKER) (test code = 114.32 ng/mL 5.00-275.00 361) Skin Fitter ID - TAVIA MVITAMIN B12 AND [id number] 03:09:01 Test Item Value Reference Range Interpretation Comments VITAMIN B12 933 pg/mL 213-816 H (BEAKER) (test code = 774) FOLATE (BEAKER) 14.50 ng/mL See_Comment [Automated message] (test code = 362) The system which generated this result transmitted ref erence range: >=7.00. The reference range was not used to interpr et this result as normal/abnormal . Skin Fitter ID - TAVIA MBASIC METABOLIC [id number] 02:39:25 Test Item Value Reference Range Interpretation [...] S NOT APPLICABLE FOR DIALYSIS PATIEN TS. Skin Fitter ID - TAVIA EFFIE, TIBC, % SAT. (WITHOUT FERRITIN)2021-08-28 02:38:43 Test Item Value Reference Range Interpretation Comments IRON (BEAKER) (test code = 547) 53.0 ug/dL 40.0-160.0 TOTAL IRON BINDING CAPACITY 301 ug/dL 250-450 (BEAKER) (test code = 769) IRON % SATURATION (2) (BEAKER) 18 % 20-55 L (test code = 2590) Skin Fitter BO SQUIRES [facility] W/PLT COUNT & AUTO [id number] 02:36:15 Test Item Value Reference Range Interpretation [...] (BEAKER) (test code = 2801) HEMOGLOBIN AND [id number] 02:17:20 Test Item Value Reference Range Interpretation Comments HEMOGLOBIN (BEAKER) (test code = 6.2 GM/DL 13.7-17.5 L 410) HEMATOCRIT (BEAKER) (test code = 20.0 % 40.1-51.0 L 411) HIGH SENSITIVITY TROPONIN [id number] 18:35:46 Test Item Value Reference Range Interpretation Comments HIGH SENSITIVITY 42 pg/ml See_Comment H [Automated message] TROPONIN I (test code = The system which [id number]) generated this result transmitted ref erence range: <=35. Th e reference range was not used to int erpret this result as normal/abnormal . Skin Fitter ID - BSThe OFFSET PRESSMAN STAT High Sensitivity Troponin-I results should be used in conjunctionwith other diagnostic information such as ECG, clinical observations and information, and patient symptoms to aid in the diagnosis of UT.HIGH SENSITIVITY TROPONIN [id number] 14:24:44 Test Item Value Reference Range Interpretation Comments HIGH SENSITIVITY 42 pg/ml See_Comment H [Automated message] TROPONIN I (test code = The system which [id number]) generated this result transmitted ref erence range: <=35. Th e reference range was not used to int erpret this result as normal/abnormal . Skin Fitter ID - BSThe OFFSET PRESSMAN STAT High Sensitivity Troponin-I results should be used in conjunctionwith other diagnostic information such as ECG, clinical observations and information, and patient symptoms to aid in the diagnosis of UT.BASIC METABOLIC [id number] 14:18:04 Test Item Value Reference Range Interpretation [...] S NOT APPLICABLE FOR DIALYSIS PATIEN TS. Skin Fitter ID - BSPROTHROMBIN TIME/[id number] 14:09:01 Test Item Value Reference Range Interpretation Comments PROTIME (BEAKER) 15.5 seconds 11.9-14.2 H (test code = 759) INR (BEAKER) (test 1.25 See_Comment [Automat ed message] code = 370) The system Ylopo generated this result transmitted ref erence range: <=5.90. The reference range was not used to int erpret this result as normal/abnormal . RECOMMENDED COUMADIN/WARFARIN INR THERAPY RANGESSTANDARD DOSE: 2.0 - 3.0 Includes: PROPHYLAXIS for venous thrombosis, systemic embolization; TREATMENT for venous thrombosis and/or pulmonary embolus.HIGH RISK: Target INR is 2.5-3.5 for patients with mechanical heart valves.CBC W/PLT COUNT & AUTO [id number] 14:06:24 Test Item Value Reference Range Interpretation [...] = 2801) Type and Screen - ONCE [id number] 13:36:51 Test Item Value Reference Range Interpretation Comments ABO & RH (test code B Positive Performe d at [facility] = 20) Laboratory Serv [facility] [place] [address]Gfmc Free: [phone] A No. [id number] IAT (test code = Negative Performed a t [facility] 1185) Laboratory [facility] [place] [address]Dsns Free: [phone] A No. [id number] [facility] Only)2021-08-27 13:35:31 Test Item Value Reference Range Interpretation Comments ABO & RH (test code B Positive Performe d at [facility] = 20) Laboratory Serv [facility] [address] [place] [address]Xnim Free: [phone] A No. [id number] [facility] [id number] 11:54:59 Test Item Value Reference Range Interpretation Comments NT-proBNP (test code 648199 pg/mL See_Comment H [Autom ated = 1175648617) message] The system which generated this result transmitted reference range : <=125. The reference range was not used to interpret this result as normal/abnormal . AJ (test code = AJ) Biotin has been reported to cause a negative bias, interpret results relative to patient's use of biotin. Lab Interpretation Abnormal (test code = 18131-3) [facility]. METABOLIC PANEL (67897)2021-08-27 11:47:50 Test Item Value Reference Range Interpretation Comments NA (test code = 135 mmol/L 135-145 7358566426) K (test code = 5.0 mmol/L 3.5-5.0 6071895815) CL (test code = 97 mmol/L 98-108 L 0814795696) CO2 TOTAL (test code = 26 mmol/L 23-31 2449594401) AGAP (test code = 2-16 7158573726) BUN (test code = 52 mg/dL 7-23 H 3778317383) GLUCOSE (test code = 106 mg/dL 70-110 5821900436) CREATININE (test code = 7.30 mg/dL 0.60-1.25 H 0489376865) TOTAL BILI (test code = 0.4 mg/dL 0.1-1.5 3477199820) CALCIUM (test code = 7.8 mg/dL 8.6-10.6 L 9909062177) T PROTEIN (test code = 6.5 g/dL 6.3-8.2 9269179986) ALBUMIN (test code = 3.5 g/dL 3.5-5.0 7161749258) ALK PHOS (test code = 44 U/L 34-122 6519994129) ALTv (test code = 17 U/L 5-50 1742-6) AST(SGOT) (test code = 27 U/L 13-40 8226212546) eGFR (test code = mL/min/1.73m2 9802386950) AJ (test code = AJ) Association of [...] tests). Lab Interpretation Abnormal (test code = 47006-5) [facility] [id number] 11:30:28 Test Item Value Reference Interpretation Comments Range TROPONIN I (test 0.060 ng/mL See_Comment H [Automated code = 0719407942) message] The system which generated this result [...] biotin. Lab Interpretation Abnormal (test code = 00075-0) [facility]RM[facility] [id number] 11:18:43 Test Item Value Reference Range Interpretation Comments APTT Patient (test See_Comment [Automat ed code = 3173-2) message] The system which generated this result transmitted reference range : 23 - 38 Seconds . The reference range was not used to interpr et this result as normal/abnormal . AJ (test code = AJ) The [facility] patient population mean normal value for aPTT is 30 seconds. Lab Interpretation Normal (test code = 56778-2) [facility] 11:18:28 Test Item Value Reference Range Interpretation Comments LIPASE (test code = 5975948126) 124 U/L 0-220 Lab Interpretation (test code = Normal 32525-7) [facility] HospitalPROTHROMBIN [facility] / [id number] 11:16:43 Test Item Value Reference Range Interpretation [...] tions. Lab Interpretation (test Normal code = 67394-3) [facility] HospitalCB WITH [id number] 11:08:43 Test Item Value Reference Range Interpretation Comments WBC (test code = See_Comment [Automated 6690-2) message] The sy stem which generated this [...] RDW-SD (test code = 48.9 fL 38.5-51.6 09116-8) RDW-CV (test code = 16.0 % 12.1-15.4 H 788-0) PLT (test code = See_Comment [Automated 777-3) message] The sy stem which generated this result transmitted reference range : 150 - 328 10*3/ ?L. The reference r yazan was not used to interpret this result as normal/abnormal . MPV (test code = 11.2 fL 9.8-13.0 59617-7) NRBC/100 WBC (test See_Comment [Automat ed code = 2842472805) message] The system which generated this result transmitted reference range : 0.0 - 10.0 /100 WBCs. The refer ence range was not u sed to interpret th is result as normal/abnormal . NRBC x10^3 (test code <0.01 See_Comment [Auto mated = 0265177039) message] The s ystem which generated this result transmitted reference range : 10*3/?L. The reference range was not used to interpret this result as normal/abnormal . GRAN MAT (NEUT) % 76.2 % (test code = 770-8) IMM GRAN % (test code 0.40 % = 7425202903) LYMPH % (test code = 10.1 % 736-9) MONO % (test code = 11.7 % 5905-5) EOS % (test code = 1.3 % 713-8) BASO % (test code = 0.3 % 706-2) GRAN MAT x10^3(ANC) 5.19 10*3/uL 1.99-6.95 (test code = 2085822082) IMM GRAN x10^3 (test 0.03 10*3/uL 0.00-0.06 code = 8744880188) LYMPH x10^3 (test code 0.69 10*3/uL 1.09-3.23 L = 731-0) MONO x10^3 (test code 0.80 10*3/uL 0.36-1.02 = 742-7) EOS x10^3 (test code = 0.09 10*3/uL 0.06-0.53 711-2) BASO x10^3 (test code <0.03 0.01-0.09 = 704-7) Lab Interpretation Abnormal (test code = 33046-7) [facility] [id number] 14:16:00Surgical Pathology Report Case: [id number] Authorizing Provider: Mack Mckoy, Collected:07/25/2020 12:37 PM Ordering Location: [address] Received: 07/25/2020 03:25 PM Service Pathologist: Zaida Newsome MD Specimens: A) - Duodenum, random biopsy B) - Biopsy, Gastric, random biopsy A. DUODENUM , BIOPSY- GASTRIC METAPLASIA WITH REACTIVE CHANGES (SEE COMMENT)- MILD VILLOUS BLUNTING- DYSPLASIA OR MALIGNANCY NOT SEENB. STOMACH, RANDOM BIOPSY- CHRONIC INACTIVE GASTRITIS, MINIMAL-MILD- NO INTESTINAL METAPLASIA, DYSPLASIA OR CARCINOMA IDENTIIFIED- NO HELICOBACTER PYLORI LIKE ORGANISMS IDENTIFIED ON WARTHIN STARRY STAIN Signing Pathologist Direct Phone Line: [phone] tronically signed by Zaida Newsome MD on 07/30/2020 at 2:16 PMIncreased intraepithelial lymphocytes, luminal parasites, aggregates of foamy macrophages in lamina propria, dysplasia or malignancy are not seen. Gastric metaplasia and reactive changes and mild villous blunting is seen and may be from peptic duodenitis or mucosal injury. Clinical correlation is recommended.22644 x 2, 79575zlvbmzI. DuodenumB. GastricA. Received in formalin labeled the [...] are filtered and submitted in toto in B1.CARLA Weaver HT (ASCP)Performed.The interpretation of this case included the use of immunohistochemistry or special stains.Control Slides Examined: In-house known positive controls were evaluated along with the test tissue. These control slides run alongside of the patients sample show appropriate staining. Internal positive and negative controls when available are evaluated Immunohistochemistry technical testing was performed at [facility], Pathology Laboratory where it was developed and its performance characteristics were determined. Ithas not been cleared or approved by the U.S. Food and Drug Administration. The FDA has determined that such clearance or approval is not necessary. The test is used for clinical purposes. It should notbe regarded as investigational or for research. This laboratory is certified under the Clinical Laboratory Improvement Amendments of 1988 (CLIA-88) as qualified to perform high complexity clinical laboratory testing.[facility], Department of Pathology, [address] [place] [address], OpptgdLoma Linda University [facility], Department of Pathology, [address] [place] [address], LskxyrLoma Linda University Medical Center, Department of Pathology,[address] [place] [address], PHYFDVXWA B SURFACE [id number] 06:06:00 Test Item Value Reference Range Interpretation Comments HEPATITIS B SURFACE ANTIGEN (2) Nonreactive Nonreactive (BEAKER) (test code = 2585) Specimen is considered negative for HBsAg.BASIC METABOLIC [id number] 05:21:00 Test Item Value Reference Range Interpretation [...] S NOT APPLICABLE FOR DIALYSIS PATIEN TS. Skin Fitter ID - PIAYA LCBC W/PLT COUNT & AUTO [id number] 04:30:00 Test Item Value Reference Range Interpretation [...] 0-1 PERCENT (BEAKER) (test code = 2801) [id number] 08:03:00 Test Item Value Reference Range Interpretation Comments MAGNESIUM (BEAKER) (test code = 2.2 mg/dL 1.6-2.6 627) Skin Fitter ID - PIAYA [id number] 08:03:00 Test Item Value Reference Range Interpretation Comments PHOSPHORUS (BEAKER) (test code = 6.2 mg/dL 2.3-4.7 H 604) Skin Fitter ID - PIAYA LHEPATIC FUNCTION [id number] 08:03:00 Test Item Value Reference Range Interpretation [...] (test code = 19 U/L 6-55 347) Skin Fitter ID - PIAYA LBASIC METABOLIC [id number] 08:03:00 Test Item Value Reference Range Interpretation [...] S NOT APPLICABLE FOR DIALYSIS PATIEN TS. Skin Fitter ID - PIAYA LSARS-COV2/RT-PCR ([facility])2020-07-24 07:27:00 Test Item Value Reference Range Interpretation Comments SARS-COV2/RT-PCR (test Negative Not Detected, Negative, code = 3784743) See external report for linked test SARS-COV-[address] [facility] (test code = 1390963) Negative result for this test determines that [...] justifying the authorization of the emergency use ofin vitro diagnostic tests for detection and/or diagnosis of COVID-19 is terminated under Section 564(b)(2) of the Act or the EUA is revoked under Section 564(g) of the Act.Fact Sheet for Healthcare Prov iders:https://www.[employer]/sites/default/files/product/documents/Fact_Sheet_HC _Vzousmfup_Ccyl_SABZ-CxU-8.pdfFact Sheet for Healthcare Patients:https://www.[employer]/sites/default/files/product/docume nts/Odud_Ktjdb_Reeeynex_Pfxo_OSUT-IiS-8.pdfPerforming Laboratory:[place] [address] [place], [place] [address]EOB W/PLT COUNT & AUTO [id number] 06:56:00 Test Item Value Reference Range Interpretation [...] 0-1 PERCENT (BEAKER) (test code = 2801) [id number] 04:39:00 Test Item Value Reference Range Interpretation Comments FERRITIN (BEAKER) (test code = 545.58 ng/mL 5.00-275.00 H 361) Skin Fitter ID - TAVIA MVITAMIN B12 AND [id number] 04:39:00 Test Item Value Reference Range Interpretation Comments VITAMIN B12 (BEAKER) 1058 pg/mL 213-816 H (test code = 774) FOLATE (BEAKER) 6.60 ng/mL See_Comment L [Automated message] (test code = 362) The system which generated this result transmitted ref erence range: >=7.00. The reference range was not used to interpr et this result as normal/abnormal . Skin Fitter ID - TAVIA MPERIPHERAL BLOOD SMEAR - HOLD [id number] 02:10:00 Test Item Value Reference Range Interpretation Comments PERIPHERAL SMEAR SAVE (BEAKER) (test Yes. code = 1815) [id number] 22:30:00 Test Item Value Reference Range Interpretation Comments HAPTOGLOBIN (BEAKER) (test code = 155 mg/dL 14-258 366) Skin Fitter ID - BSIRON, TIBC, % SAT. (WITHOUT FERRITIN)2020-07-23 22:30:00 Test Item Value Reference Range Interpretation Comments IRON (BEAKER) (test code = 547) 43.0 ug/dL 40.0-160.0 TOTAL IRON BINDING CAPACITY 208 ug/dL 250-450 L (BEAKER) (test code = 769) IRON % SATURATION (2) (BEAKER) 21 % 20-55 (test code = 2590) Skin Fitter ID - [id number] 22:29:00 Test Item Value Reference Range Interpretation Comments MAGNESIUM (BEAKER) (test code = 2.2 mg/dL 1.6-2.6 627) Skin Fitter ID - BSLACTATE DEHYDROGENASE (LDH)2020-07-23 22:29:00 Test Item Value Reference Range Interpretation Comments LACTATE DEHYDROGENASE (BEAKER) (test 193 U/L 125-220 code = 635) Skin Fitter ID - BSCOMPREHENSIVE METABOLIC [id number] 22:29:00 Test Item Value Reference Range Interpretation [...] S NOT APPLICABLE FOR DIALYSIS PATIEN TS. Skin Fitter ID - BSRETICULOCYTE [id number] 22:16:00 Test Item Value Reference Range Interpretation Comments RETICULOCYTE COUNT PCT (BEAKER) (test 1.8 % 0.5-1.8 code = 575) Skin Fitter ID - 6000CBC W/PLT COUNT & AUTO [id number] 22:16:00 Test Item Value Reference Range Interpretation [...] PERCENT (BEAKER) (test code = 2801) ELECTROCARDIOGRAM [id number] 20:33:54Result approved by Sara Reynaga MD on 06/12/20CT, CHEST, WITHOUT IV [id number] 08:39:00FINAL REPORT CT of the chest, abdomen [...] right peritracheal lymph node, for example, measures 1.2cm in short axis. Heart is enlarged. There is a small pericardial effusion. There are trace bilateral pleural effusions. Patchy groundglass opacities are present in both lungs, primarily in peripheral d istribution. Mild atelectasis is also present in both lower lobes. Central airways are patent, no significant bronchiectasis, or bronchial wall thickening. No liver lesion is identified on this noncontrast exam. No biliary ductal dilatation. Gallbladder is normal. Spleen, pancreas, adrenal glands are u nremarkable. Kidneys are atrophic, each containing several cysts, [...] is enlarged. Atrophic kidneys. Signed: Raul Sanchez [facility] Verified Date/Time: 11/16/2019 08:39:14 Reading Location: [facility] C013X Ortho Consult Reading [facility] [id number] 08:39:00FINAL REPORT CT of the chest, abdomen [...] right peritracheal lymph node, for example, measures 1.2cm in short axis. Heart is enlarged. There is a small pericardial effusion. There are trace bilateral pleural effusions. Patchy groundglass opacities are present in both lungs, primarily in peripheral distribution. Mild atelectasis is also present in both lower lobes. Central airways are patent, no significant bronchiectasis, or bronchial wall thickening. No [...] is enlarged. Atrophic kidneys. Signed: Raul Sanchez [facility] Verified Date/Time: 11/16/2019 08:39:14 Reading Location: [facility] B1 C013X Ortho Consult Reading Room NEEDLE ASPIRATE BY [id number] 10:42:00Medical Cytology Report Case: [id number] Authorizing Provider: Kalen Hurtado MD Collected: 07/28/2018 1400 Ordering Location: [facility] Received: 07/28/2018 1424 SERVICES Pathologist: Evita Dhillon MD Specimen: Lymph Node, Lower Paratracheal, Right, Station 4R LYMPH NODE, LOWER PARATRACHEAL, RIGHT, STATION 4R EBUS FNA AND CORE BIOPSY BY CLINICIAN (CYTOSPINS AND CELL BLOCK OF ASPIRATE): - NEGATIVE FOR MALIGNANCY - ANTHRACOTIC LYMPH NODE FRAGMENTS Signing Pathologist Direct Phone Line: [phone] signed by Evita Dhillon MD on 08/01/2018 at 10:42 AMPlease see cases [id number] and [id number].Microscopic slides are received for examination and review on 08/01/2018.98527, 01508Q1Admmbukfzzl lymphadenopathy, history of T-cell lymphoma currently in remissionLYMPH NODE, LO WER PARATRACHEAL, RIGHT, STATION 4R EBUS FNA37 mls in cytorich red; 2 cytospins, cell block (A3)Corebiopsy: Multiple fragments measuring 7x 0.4cm, 2x 0.5 cm, 0.7 cm, 1.2 cm red (A2)Collected: [id number]: 215969Yxtxzblad.The interpretation of this case included the use of immunohistochemistry or special stains. Immunohistochemistry technical testing was performed at [facility], Pathology Laboratory where it was [...] qualified to perform high complexity clinical laboratory testing.[facility], Department of Pathology, [address] [place] [address], SbebspLoma Linda University Medical Center, Department of Pathology, [address] [place] [address] 359[address], JorxnlLoma Linda University [facility], Department of Pathology, [address] [place] [address]40[address], PBDK NEEDLE ASPIRATE BY [id number] 10:41:00Medical Cytology Report Case: [id number] Authorizing Provider: Kalen Hurtado MD Collected: 07/28/2018 1356 Ordering Location: [facility] PERIOPERATIVE Received: 07/28/2018 1424 SERVICES Pathologist: Evita Dhillon MD Specimen: Lymph Node, Subcarinal, Station 7 LYMPH NODE, SUBCARINAL, STATION 7 EBUSFNA AND CORE BIOPSY BY CLINICIAN (CYTOSPINS AND CELL BLOCK OF ASPIRATE): - NEGATIVE FOR MALIGNANCY -ANTHRACOTIC LYMPH NODE FRAGMENTS Signing Pathologist Direct Phone Line: [phone] signed by Evita Dhillon MD on 08/01/2018 at 10:41 AMPlease see cases [id number] and [id number].Microscopic slides are received for examination and review on 08/01/2018.20053, 93137S6Oocfistodzs lymphadenop athy, history of T-cell lymphoma currently in remissionLYMPH NODE, SUBCARINAL, STATION 7 EBUS FNA32 mls in cytorich red; 2 cytospins, cell block (A3)Core biopsy: multiple fragments measuring 1.5 x 0.8 cm, 0.5 cm, 0.3 cm, 0.2 cm red (A2)Collected: 795704Kkjrznml: 292250Kkv interpretation of this case included the use of immunohistochemistry or special stains. Immunohistochemistry technical testing wasperformed at [facility], Pathology Laboratory where it was [...] qualified to perform high complexity clinical laboratory testing.[facility], Departm ent of Pathology, [address] [place] [address], WfvsecLoma Linda University Medical Center, Department of Pathology, [address] [place] [address], IqxlyuLoma Linda University Medical Center, Department of Pathology, [address] [place] [address]473, RZSV CYTOMETRY [id number] 12:41:00 Test Item Value Reference Range Interpretation Comments FLOW CYTOMETRY RESULT See Separate Report POINTER (EDENILSON) (test code = 2758) FLOW CYTOMETRY AP CASE # [id number] (EDENILSON) (test code = 2759) FLOW [id number] 10:53:00Flow Cytometry Report Case: [id number] Authorizing Provider: Kalen Hurtado MD Collected: 07/28/2018 1355 Ordering Location: [facility] Received: 07/28/2018 1653 SERVICES Pathologist: Malissa Cohen MD Specimen: Other LYMPH NODE, EBUS FINE NEEDLE ASPIRATION, FLOW CYTOMETRY:-PREDOMINANCE OF GRANULOCYTES-NO MONOTYPIC B CELL POPULATION-NO ABERRANT T CELL POPULATION-SEE COMMENT The predominance of granulocytesis suggestive of peripheral blood contamination of the sample. These results require correlation with the morphologic and other features for full interpretation. 16158Keegtwdhqjj lymphadenopathy, History of T cell lymphoma s/p therapyLymph node FNA EBUS-guidedCD8, surface-kappa, CD56, surface-lambda, CD5, CD19, CD10, CD3, CD20, CD4, DO51Jhnwpysp Viability: 98.3% Number of Events Acquired: [id number] The following populations are identified: Lymphocytes: Bright [...] debris.These tests were developed and their performance character istics determined by [facility]. They have not been cleared or approved by theU.S. Food and Drug Administration. The FDA has determined that such clearance or approval is not necessary. It should not be regarded as investigational or for research. This laboratory is certified under the Clinical Laboratory Improvement Amendments of 1988 ("CLIA") as qualified to perform high-complexity clinical testing.EBUS FNA [id number] 16:00:00 Test Item Value Reference Range Interpretation Comments CYTOLOGY RESULT POINTER See Separate Report (EDENILSON) (test code = 2629) EBUS FNA [id number] 16:00:00 Test Item Value Reference Range Interpretation Comments CYTOLOGY RESULT POINTER See Separate Report (BEAKER) (test code = 2629) COMPREHENSIVE METABOLIC [id number] 11:20:00 Test Item Value Reference Range Interpretation [...] S NOT APPLICABLE FOR DIALYSIS PATIEN TS. [id number] 10:18:00 Test Item Value Reference Range Interpretation Comments PARTIAL THROMBOPLASTIN TIME 36.1 seconds 22.5-36.0 H (BEAKER) (test code = 760) PROTHROMBIN TIME/[id number] 10:16:00 Test Item Value Reference Range Interpretation Comments PROTIME (BEAKER) (test code = 13.7 seconds 11.7-14.7 759) INR (BEAKER) (test code = 370) 1.0 <=5.9 RECOMMENDED COUMADIN/WARFARIN INR THERAPY RANGESSTANDARD DOSE: 2.0 - 3.0 Includes: PROPHYLAXIS for venous thrombosis, systemic embolization; TREATMENT for venous thrombosis and/or pulmonary embolus.HIGH RISK: Target INR is 2.5-3.5 for patients with mechanical heart valves.CBC W/PLT COUNT & AUTO [id number] 10:07:00 Test Item Value Reference Range Interpretation [...] (BEAKER) (test code = 2801) COMPREHENSIVE METABOLIC [id number] 07:46:00 Test Item Value Reference Range Interpretation [...] S NOT APPLICABLE FOR DIALYSIS PATIEN TS. [id number] 07:31:00 Test Item Value Reference Range Interpretation Comments PARTIAL THROMBOPLASTIN TIME 45.9 seconds 22.5-36.0 H (BEAKER) (test code = 760) PROTHROMBIN TIME/[id number] 07:30:00 Test Item Value Reference Range Interpretation Comments PROTIME (BEAKER) (test code = 13.7 seconds 11.7-14.7 759) INR (BEAKER) (test code = 370) 1.0 <=5.9 RECOMMENDED COUMADIN/WARFARIN INR THERAPY RANGESSTANDARD DOSE: 2.0 - 3.0 Includes: PROPHYLAXIS for venous thrombosis, systemic embolization; TREATMENT for venous thrombosis and/or pulmonary embolus.HIGH RISK: Target INR is 2.5-3.5 for patients with mechanical heart valves.CBC W/PLT COUNT & AUTO [id number] 07:22:00 Test Item Value Reference Range Interpretation [...] PERCENT (BEAKER) (test code = 2801) POCT-GLUCOSE [id number] 06:48:00 Test Item Value Reference Range Interpretation Comments POC-GLUCOSE METER 106 mg/dL 70-[address] [facility] 6720 (BEAKER) (test code = [place] 1538) [address] BASIC METABOLIC [id number] 11:54:00 Test Item Value Reference Range Interpretation [...] PATIEN TS. CBC W/PLT COUNT & AUTO [id number] 11:37:00 Test Item Value Reference Range Interpretation [...] 0-1 PERCENT (BEAKER) (test code = 2801) [id number] 09:37:00 Test Item Value Reference Range Interpretation Comments POC-POTASSIUM 4.2 meq/L 3.6-5.5 TESTED AT [facility] C 6720 (BEAKER) (test code [facility] [address] = 1540) BUN AND [id number] 13:33:00 Test Item Value Reference Range Interpretation [...] S NOT APPLICABLE FOR DIALYSIS PATIEN TS. [id number] 13:32:00 Test Item Value Reference Range Interpretation Comments SODIUM (BEAKER) (test code = 381) 139 meq/L 136-145 POTASSIUM (BEAKER) (test code = 4.2 meq/L 3.5-5.1 379) CHLORIDE (BEAKER) (test code = 382) 100 meq/L 98-107 CO2 (BEAKER) (test code = 355) 27 meq/L 22-29 [id number] 13:14:00 Test Item Value Reference Range Interpretation Comments HEMOGLOBIN (BEAKER) (test code = 12.8 GM/DL 13.7-17.5 L 410) BLOOD [id number] 04:41:00 Test Item Value Reference Range Interpretation Comments CULTURE (BEAKER) (test No growth in 5 days code = 1095) POCT-GLUCOSE [id number] 13:11:00 Test Item Value Reference Range Interpretation Comments POC-GLUCOSE METER 169 mg/dL 70-110 H [facility] (test code = TATY Ol[place] [facility] 1538) [address] ANG, TUNNELED CATHETER [id number] 18:19:00FINAL REPORT Tunneled dialysis catheter insertion. History: Renal failure. Mod ality: Sonography and fluoroscopy. Sedation: Moderate sedation was administered. 2 mg of Versed and 100 mcg of fentanyl IV was used for moderate sedation monitored under my direction. Total intra-service time of sedation was 30 minutes. The patient's vital signs were monitored throughout the procedureand recorded in the patient's medical record by the nurse. Change Director: [place] Territory Sales Manager: None. Approach: Left internal jugular vein Estimated [...] not be advanced centrally. The inner 3 [place]an micropuncture sheath was placed and contrast injected [...] needle into the right atrium. A 4 [place]an micropuncture sheath was placed and a 0.035 wire advanced into the IVC. A subcutaneous tunnel was created in the left anterior chest wall by blunt dissection. A 23 cm tip to cuff 15.5 [place] Duraflow 2 catheter was brought through the tunnel. The vessel tract was serially dilated over a J-wire. A peel- away sheath was placed in the left IJ [...] MDReport Verified Date/Time: 01/13/2018 18:19:33 Reading Location: [address] Body Reading Room POCT-GLUCOSE [id number] 17:11:00 Test Item Value Reference Range Interpretation Comments POC-GLUCOSE METER 159 mg/dL 70-110 H TESTED AT [place] [address] ([email or web address] (test code = [employer] [facility] 1538) [address] CATHETER TIP [id number] 10:23:00 Test Item Value Reference Range Interpretation Comments CULTURE ([facility]) A <15 [place] s On (test code = 1095) Direct Pl ate Pseudomonas aeruginosa CULTURE ([facility]) PSEUDOMONAS A <15 [place]ie s On (test [...] Tobramycin (test S code = 25) POCT-GLUCOSE [id number] 08:43:00 Test Item Value Reference Range Interpretation Comments POC-GLUCOSE METER 116 mg/dL 70-[address] [facility] [employer]) (test code = [employer] [facility] 1538) [address] BASIC METABOLIC [id number] 06:17:00 Test Item Value Reference Range Interpretation [...] S NOT APPLICABLE FOR DIALYSIS PATIEN TS. [id number] 05:32:00 Test Item Value Reference Range Interpretation Comments PROTIME (BEAKER) (test code = 14.3 seconds 11.7-14.7 759) INR (BEAKER) (test code = 370) 1.1 <=5.9 PARTIAL THROMBOPLASTIN TIME 33.1 seconds 22.5-36.0 (BEAKER) (test code = 760) RECOMMENDED COUMADIN/WARFARIN INR THERAPY RANGESSTANDARD DOSE: 2.0 - 3.0 Includes: PROPHYLAXIS for [...] % 40.1-51.0 L 411) MEAN CORPUSCULAR VOLUME ([facility]) 88.8 fL 79.0-92.2 (test code = 753) MEAN CORPUSCULAR HEMOGLOBIN 28.1 pg 25.7-32.2 (AKER) (test code = 751) MEAN CORPUSCULAR HEMOGLOBIN CONC 31.6 GM/DL 32.3-36.5 L (AKER) (test code = 752) RED CELL DISTRIBUTION WIDTH 14.6 % 11.6-14.4 H (AKER) (test code = 412) PLATELET COUNT ([facility]) (test 411 K/CU MM 150-450 code = 756) MEAN PLATELET VOLUME ([facility]) 10.2 fL 9.4-12.4 (test code = 754) NUCLEATED RED BLOOD CELLS 0 /100 WBC 0-0 ([facility]) (test code = 413) POCT-GLUCOSE [id number] 22:24:00 Test Item Value Reference Range Interpretation Comments POC-GLUCOSE METER 118 mg/dL 70-110 H TESTED AT [place] [address] ([facility]) (test code = [facility] [place] [facility] 1538) [address] POCT-GLUCOSE [id number] 18:32:00 Test Item Value Reference Range Interpretation Comments POC-GLUCOSE METER 146 mg/dL 70-110 H TESTED AT [place] [address] ([facility]) (test code = [facility] [place] [facility] 1538) [address] POCT-GLUCOSE [id number] 12:18:00 Test Item Value Reference Range Interpretation Comments POC-GLUCOSE METER 106 mg/dL 70-110 TESTED AT [place] [address] ([facility]) (test code = [facility] [place] [facility] 1538) [address] POCT-GLUCOSE [id number] 07:45:00 Test Item Value Reference Range Interpretation Comments POC-GLUCOSE METER 98 mg/dL 70-110 TESTED AT [place] [address] ([facility]) (test code = [facility] [place] [facility] [address] 1538) BLOOD [id number] 06:00:00 Test Item Value Reference Range Interpretation Comments CULTURE ([facility]) (test No growth in 5 days code = 1095) BLOOD [id number] 06:00:00 Test Item Value Reference Range Interpretation Comments CULTURE (BEAKER) (test No growth in 5 days code = 1095) POCT-GLUCOSE [id number] 21:04:00 Test Item Value Reference Range Interpretation Comments POC-GLUCOSE METER 124 mg/dL 70-110 H TESTED AT [place] [address] ([facility]) (test code = [facility] 1538) [address] POCT-GLUCOSE [id number] 17:25:00 Test Item Value Reference Range Interpretation Comments POC-GLUCOSE METER 177 mg/dL 70-110 H TESTED AT [place] [address] ([facility] (test code = [facility] 1538) [address] BASIC METABOLIC [id number] 13:32:00 Test Item Value Reference Range Interpretation [...] NOT APPLICABLE FOR DIALYSIS PATIEN TS. POCT-GLUCOSE [id number] 12:17:00 Test Item Value Reference Range Interpretation Comments POC-GLUCOSE METER 82 mg/dL 70-110 TESTED AT [place] [address] ([facility] (test code = [facility] [address] 1538) [id number] 11:20:00 Test Item Value Reference Range Interpretation Comments PROTIME (BEAKER) (test code = 15.3 seconds 11.7-14.7 H 759) INR (BEAKER) (test code = 370) 1.2 <=5.9 PARTIAL THROMBOPLASTIN TIME 30.9 seconds 22.5-36.0 (BEAKER) (test code = 760) RECOMMENDED COUMADIN/WARFARIN INR THERAPY RANGESSTANDARD DOSE: 2.0 - 3.0 Includes: PROPHYLAXIS for venous thrombosis, systemic embolization; TREATMENT for venous thrombosis and/or pulmonary embolus.HIGH RISK: Target INR is 2.5-3.5 for patients with mechanical heart valves.BLOOD [id number] 11:00:00 Test Item Value Reference Range Interpretation Comments CULTURE (BEAKER) (test No growth in 5 days code = 1095) POCT-GLUCOSE [id number] 07:51:00 Test Item Value Reference Range Interpretation Comments POC-GLUCOSE METER 107 mg/dL 70-[address] [facility] 67[address] ([facility]) (test code = [place] 1538) [address] CALCIUM, [id number] 06:32:00 Test Item Value Reference Range Interpretation Comments CALCIUM IONIZED (BEAKER) (test 0.87 mmol/L 1.12-1.27 L code = 698) PH, BLOOD (BEAKER) (test code = 7.38 1810) [id number] 06:13:00 Test Item Value Reference Range Interpretation Comments PHOSPHORUS (BEAKER) (test code = 6.9 mg/dL 2.3-4.7 H 604) [id number] 06:13:00 Test Item Value Reference Range Interpretation Comments MAGNESIUM (BEAKER) (test code = 2.6 mg/dL 1.6-2.6 627) CBC W/PLT COUNT & AUTO [id number] 06:00:00 Test Item Value Reference Range Interpretation [...] PERCENT (BEAKER) (test code = 2801) POCT-GLUCOSE [id number] 21:57:00 Test Item Value Reference Range Interpretation Comments POC-GLUCOSE METER 91 mg/dL 70-[address] [facility] 6720 (BEAKER) (test code = [place] [address] 1538) BASIC METABOLIC [id number] 20:35:00 Test Item Value Reference Range Interpretation Comments SODIUM (BEAKER) 134 meq/L 136-145 L (test code = 381) POTASSIUM (BEAKER) 4.3 meq/L 3.5-5.1 (test code = 379) CHLORIDE (BEAKER) 98 meq/L 98-107 (test code = 382) CO2 (BEAKER) (test 17 meq/L 22-29 L code = 355) BLOOD UREA NITROGEN 83 mg/dL 7-21 H (AKER) (test code = 354) CREATININE (BEAKER) 11.79 mg/dL 0.57-1.25 H (test code = 358) GLUCOSE RANDOM 129 mg/dL 70-105 H ([facility]) (test code = 652) CALCIUM (BEAKER) 9.9 mg/dL 8.4-10.2 (test code = 697) EGFR ([facility]) (test 5 mL/min/1.73 ESTIMAT ED GFR IS code = 1092) sq m NOT ACCURATE CREATININE CLEARANCE IN PREDICTING GLOMERULAR FILTRATION RATE . ESTIMATED GFR I S NOT APPLICABLE FOR DIALYSIS PATIEN TS. POCT-GLUCOSE [id number] 17:48:00 Test Item Value Reference Range Interpretation Comments POC-GLUCOSE METER 136 mg/dL 70-110 H TESTED AT [place] [address] ([facility]) (test code = [facility] [employer] [facility] 1538) [address] POCT-GLUCOSE [id number] 12:42:00 Test Item Value Reference Range Interpretation Comments POC-GLUCOSE METER 109 mg/dL 70-110 TESTED AT [place] [address] ([facility]) (test code = [facility] [employer] [facility] 1538) [address] POCT-GLUCOSE [id number] 08:25:00 Test Item Value Reference Range Interpretation Comments POC-GLUCOSE METER 146 mg/dL 70-110 H TESTED AT [place] [address] ([facility]) (test code = [facility] [employer] [facility] 1538) [address] VANCOMYCIN LEVEL, [id number] 01:13:00 Test Item Value Reference Range Interpretation Comments VANCOMYCIN RANDOM ([facility]) (test 30.1 ug/mL code = 523) Reference Range: No NormalsPOCT-GLUCOSE [id number] 21:48:00 Test Item Value Reference Range Interpretation Comments POC-GLUCOSE METER 118 mg/dL 70-110 H TESTED AT [place] [address] ([facility]) (test code = [facility] [employer] [facility] 1538) [address] POCT-GLUCOSE [id number] 18:22:00 Test Item Value Reference Range Interpretation Comments POC-GLUCOSE METER 118 mg/dL 70-[address] [facility] 6720 (BEAKER) (test code = [place] 1538) [address] POCT-GLUCOSE [id number] 13:46:00 Test Item Value Reference Range Interpretation Comments POC-GLUCOSE METER 107 mg/dL 70-[address] [facility] 6720 (BEAKER) (test code = TATY Olivas [facility] 1538) [address] POCT-GLUCOSE [id number] 08:36:00 Test Item Value Reference Range Interpretation Comments POC-GLUCOSE METER 107 mg/dL 70-110 TESTED AT [place] [address] (BEAKER) (test code = TATY Olivas [facility] 1538) [address] SPUTUM CULTURE + GRAM [id number] 07:38:00 Test Item Value Reference Range Interpretation Comments CULTURE (BEAKER) 1+ Normal respiratory (test code = 1095) miller present GRAM STAIN RESULT 1+ WBCs (BEAKER) (test code = 1123) GRAM STAIN RESULT 0-5 epithelial cells (BEAKER) (test code = 38389) GRAM STAIN RESULT 1+ gram positive cocci (BEAKER) (test code = in pairs and clusters 40437) BASIC METABOLIC [id number] 06:57:00 Test Item Value Reference Range Interpretation [...] S NOT APPLICABLE FOR DIALYSIS PATIEN TS. [id number] 06:54:00 Test Item Value Reference Range Interpretation Comments PHOSPHORUS (BEAKER) (test code = 4.9 mg/dL 2.3-4.7 H 604) [id number] 06:54:00 Test Item Value Reference Range Interpretation Comments MAGNESIUM (BEAKER) (test code = 2.2 mg/dL 1.6-2.6 627) CBC W/PLT COUNT & AUTO [id number] 06:38:00 Test Item Value Reference Range Interpretation [...] LYMPHOCYTES ABSOLUTE COUNT 1.84 K/ L 1.32-3.57 (AKER) (test code = 414) MONOCYTES ABSOLUTE COUNT (BEAKER) 1.19 K/ L 0.30-0.82 H (test code = 415) EOSINOPHILS ABSOLUTE COUNT 0.15 K/ L 0.04-0.54 (BEAKER) (test code = 416) BASOPHILS ABSOLUTE COUNT (BEAKER) 0.05 K/ L 0.01-0.08 (test code = 417) IMMATURE GRANULOCYTES-RELATIVE 2 % 0-1 H PERCENT ([facility]) (test code = 2801) CALCIUM, [id number] 06:36:00 Test Item Value Reference Range Interpretation Comments CALCIUM IONIZED ([facility]) (test 0.81 mmol/L 1.12-1.27 L code = 698) PH, BLOOD ([facility]) (test code = 7.43 1810) POCT-GLUCOSE [id number] 20:50:00 Test Item Value Reference Range Interpretation Comments POC-GLUCOSE METER 99 mg/dL 70-110 TESTED AT [place] [address] ([facility]) (test code = [facility] [address] 1538) POCT-GLUCOSE [id number] 17:36:00 Test Item Value Reference Range Interpretation Comments POC-GLUCOSE METER 154 mg/dL 70-110 H TESTED AT [place] [address] ([facility]) (test code = [facility] 1538) [address] POCT-GLUCOSE [id number] 12:44:00 Test Item Value Reference Range Interpretation Comments POC-GLUCOSE METER 116 mg/dL 70-110 H TESTED AT [place] [address] ([facility]) (test code = [facility] 1538) [address] POCT-GLUCOSE [id number] 08:59:00 Test Item Value Reference Range Interpretation Comments POC-GLUCOSE METER 108 mg/dL 70-110 TESTED AT [place] [address] ([facility]) (test code = [facility] 1538) [address] (CELLAVISION MANUAL DIFF)[id number] 08:20:00 Test Item Value Reference Range Interpretation Comments NEUTROPHILS - REL 63 % (CELLAVISION)(BEAKER) (test code = 2816) LYMPHOCYTES - REL 18 % (CELLAVISION)(AKER) (test code = 2817) MONOCYTES - REL [...] 3438) Received comment: User comments: Slide comments:CALCIUM, [id number] 07:09:00 Test Item Value Reference Range Interpretation Comments CALCIUM IONIZED (BEAKER) (test 0.94 mmol/L 1.12-1.27 L code = 698) PH, BLOOD (BEAKER) (test code = 7.44 1810) BASIC METABOLIC [id number] 06:16:00 Test Item Value Reference Range Interpretation [...] S NOT APPLICABLE FOR DIALYSIS PATIEN TS. [id number] 06:14:00 Test Item Value Reference Range Interpretation Comments PHOSPHORUS (BEAKER) (test code = 5.5 mg/dL 2.3-4.7 H 604) [id number] 06:14:00 Test Item Value Reference Range Interpretation Comments MAGNESIUM (BEAKER) (test code = 2.3 mg/dL 1.6-2.6 627) HEPATIC FUNCTION [id number] 06:14:00 Test Item Value Reference Range Interpretation [...] 68 U/L 6-55 H 347) VANCOMYCIN LEVEL, [id number] 05:56:00 Test Item Value Reference Range Interpretation Comments VANCOMYCIN RANDOM (BEAKER) (test 37.1 ug/mL code = 523) Reference Range: No NormalsPROTHROMBIN [id number] 05:32:00 Test Item Value Reference Range Interpretation Comments PROTIME (BEAKER) (test code = 14.1 seconds 11.7-14.7 759) INR (BEAKER) (test code = 370) 1.1 <=5.9 RECOMMENDED COUMADIN/WARFARIN INR THERAPY RANGESSTANDARD DOSE: 2.0 - 3.0 Includes: PROPHYLAXIS for venous thrombosis, systemic embolization; TREATMENT for venous thrombosis and/or pulmonary embolus.HIGH RISK: Target INR is 2.5-3.5 for patients with mechanical heart valves.CBC W/PLT COUNT & AUTO [id number] 05:27:00 Test Item Value Reference Range Interpretation [...] 413) ANG, REMOVAL OF TUNNELED CVC W/O [id number] 21:29:00Reason for exam:->BacteremiaFINAL REPORT Tunneled catheter removal: [...] The catheter was removed. The patient tolerated theprocedure well and left the department in the same condition. Impression: Successful, uncomplicated removal of a right internal jugular tunneled catheter. Signed: Evita Leslie Verified Date/Time: 01/07/2018 21:29:51 Reading Location: [facility] Radiology Reading Room POCT-GLUCOSE [id number] 21:18:00 Test Item Value Reference Range Interpretation Comments POC-GLUCOSE METER 138 mg/dL 70-110 H TESTED AT [place] [address] ([facility]) (test code = [place] [address]) [address] POCT-GLUCOSE [id number] 17:07:00 Test Item Value Reference Range Interpretation Comments POC-GLUCOSE METER 126 mg/dL 70-110 H TESTED AT [place] [address] ([facility]) (test code = [facility] 1538) [address] LACTIC ACID, VENOUS, WHOLE [id number] 15:44:00 Test Item Value Reference Range Interpretation Comments LACTATE BLOOD VENOUS 1.9 mmol/L 0.5-2.2 Specime n slightly (2) ([facility]) (test hemolyzed code = 2872) Effective 09/10/2015: Units/Reference Range ChangeNew: 0.5-2.2 mmol/L Previous: 5- 20 mg/dLPOCT-GLUCOSE [id number] 13:38:00 Test Item Value Reference Range Interpretation Comments POC-GLUCOSE METER 120 mg/dL 70-110 H TESTED AT [place] [address] ([facility]) (test code = [facility] 1538) [address] BASIC METABOLIC [id number] 11:05:00 Test Item Value Reference Range Interpretation [...] S NOT APPLICABLE FOR DIALYSIS PATIEN TS. [id number] 10:45:00 Test Item Value Reference Range Interpretation Comments PHOSPHORUS (BEAKER) (test code = 5.6 mg/dL 2.3-4.7 H 604) [id number] 10:45:00 Test Item Value Reference Range Interpretation Comments MAGNESIUM (BEAKER) (test code = 2.5 mg/dL 1.6-2.6 627) HEPATIC FUNCTION [id number] 10:45:00 Test Item Value Reference Range Interpretation [...] U/L 6-55 H 347) HEPATITIS B SURFACE [id number] 10:16:00 Test Item Value Reference Range Interpretation Comments HEPATITIS B SURFACE ANTIGEN (2) Nonreactive Nonreactive ([facility]) (test code = 2585) POCT-GLUCOSE [id number] 07:59:00 Test Item Value Reference Range Interpretation Comments POC-GLUCOSE METER 102 mg/dL 70-[address] [facility] 6720 ([facility]) (test code = [place] 1538) [address] VITAMIN D, [id number] 07:50:00 Test Item Value Reference Range Interpretation Comments VITAMIN D 25-OH (BEAKER) (test 47.2 ng/mL 6.6-49.9 code = 2764) Effective 02/16/2017: Reference Range ChangeNew: 6.6-49.9 ng/mL Previous: 13.0- 47.8 ng/mLRecommendedVitamin D Target Range: 30.0-40.0 ng/mLVANCOMYCIN LEVEL, [id number] 07:12:00 Test Item Value Reference Range Interpretation Comments VANCOMYCIN RANDOM (BEAKER) (test 22.1 ug/mL code = 523) Reference Range: No NormalsPTH, [id number] 05:52:00 Test Item Value Reference Range Interpretation Comments PARATHYROID HORMONE INTACT 198.9 pg/mL 8.5-72.5 H (AKER) (test code = 577) CALCIUM, [id number] 05:45:00 Test Item Value Reference Range Interpretation Comments CALCIUM IONIZED (BEAKER) (test 0.84 mmol/L 1.12-1.27 L code = 698) PH, BLOOD (BEAKER) (test code = 7.51 1810) PROTHROMBIN [id number] 05:13:00 Test Item Value Reference Range Interpretation Comments PROTIME (BEAKER) (test code = 14.7 seconds 11.7-14.7 759) INR (BEAKER) (test code = 370) 1.2 <=5.9 RECOMMENDED COUMADIN/WARFARIN INR THERAPY RANGESSTANDARD DOSE: 2.0 - 3.0 Includes: PROPHYLAXIS for venous thrombosis, systemic embolization; TREATMENT for venous thrombosis and/or pulmonary embolus.HIGH RISK: Target INR is 2.5-3.5 for patients with mechanical heart valves.POCT-GLUCOSE [id number] 21:13:00 Test Item Value Reference Range Interpretation Comments POC-GLUCOSE METER 92 mg/dL 70-[address] [facility] 67[address] (BEAKER) (test code = [place] [address] 1538) [id number] 18:56:00 Test Item Value Reference Range Interpretation Comments PROCALCITONIN (BEAKER) (test code 51.22 ng/mL <0.05 HH = 3036) SEPSIS RISK (ng/mL)Low: 0.05-0.50Intermediate: 0.51-2.00High: >=2.01 URINALYSIS W/ [id number] 18:31:00 Test Item Value Reference Range Interpretation [...] /HPF 520) SOURCE(BEAKER) (test code = 2795) [id number] 17:48:00 Test Item Value Reference Range Interpretation Comments PHOSPHORUS (BEAKER) (test code = 5.1 mg/dL 2.3-4.7 H 604) RAD, CHEST, 1 VIEW, NON [id number] 11:31:00Reason for exam:->chest painShould this be performed at the bedside?->YesFINAL REPORT CLINICAL HISTORY: chest pain TECHNIQUE: 1 view of the chest. COMPAR SHEELA: 01/25/2017 IMPRESSION: There is a right-sided dialysis catheter terminating near the cavoatrialjunction. Bilateral mid lung atelectasis is again seen. There is no pleural fluid. The cardiomediastinal silhouette is magnified by technique. Signed: Lucy Eugene MDReport Verified Date/Time: 01/06/2018 11:31:21 Reading Location: [facility] Radiology Reading Room CBC W/PLT COUNT & AUTO DIFFERENTIAL 2018-01-06 11:14:00 Test Item Value Reference Range Interpretation [...] K/uL 0.00-0.00 H (CELLAVISION)(BEAKER) (test code = 9488) TOTAL COUNTED (BEAKER) (test code 100 = [...] Received comment: User comments: Slide comments:U/S, RENAL, [id number] 09:04:00Reason for exam:->AKIFINAL REPORT Renal ultrasound Clinical History: Kidney injury Comparison: CT with contrast from 07/17/2016 Discussion: Sonographic evaluation of the kidneys is performed. The right kidney measures 10.2 x 5.6 x 4.8 cm. Cortical thickness is decreased and cortical echogenicity is increased. There are multiple simple appearing cysts, largest measures 4.4 x 3.0 x 4.0 cm and is locatedwithin the inferior pole. There is a solid lesion noted within the superior pole measuring 3.0 x 2.9x 2.4 cm. There is no evidence for [...] evaluation with dedicated renal mass CT is recommended.3. Prostatomegaly. Signed: Jeovany Hillort Verified Date/Time: 01/06/2018 09:04:28 Reading Location: [facility] [id number] Ultrasound Reading Room LACTIC ACID, VENOUS, WHOLE [id number] 07:15:00 Test Item Value Reference Range Interpretation Comments LACTATE BLOOD VENOUS (2) (BEAKER) 0.6 mmol/L 0.5-2.2 (test code = 2872) Effective 09/10/2015: Units/Reference Range ChangeNew: 0.5-2.2 mmol/L Previous: 5- 20 mg/dLBASIC METABOLIC [id number] 05:48:00 Test Item Value Reference Range Interpretation [...] APPLICABLE FOR DIALYSIS PATIEN TS. HEPATIC FUNCTION [id number] 05:45:00 Test Item Value Reference Range Interpretation [...] code = 54 U/L 6-55 347) PROTHROMBIN TIME/[id number] 05:22:00 Test Item Value Reference Range Interpretation Comments PROTIME (EDENILSON) (test code = 14.5 seconds 11.7-14.7 759) INR (EDENILSON) (test code = 370) 1.1 <=5.9 RECOMMENDED COUMADIN/WARFARIN INR THERAPY RANGESSTANDARD DOSE: 2.0 - 3.0 Includes: PROPHYLAXIS for [...] stable. Physician intra-service time was 20 minutes. Change Director: Dimple. Territory Sales Manager: None. Approach: Right internal jugular vein Estimated [...] An ultrasound image was saved to PACS. A0.018 inch wire was placed through the needle into the right atrium. A 4 [place] micropuncture sheathwas placed. A subcutaneous tunnel was created in the right anterior chest wall by blunt dissection. A 19 cm 15.5 [place] Duraflow 2 catheter was brought through the tunnel. The vessel tract was seriallydilated over a J- wire. A peel-away sheath was placed in the right IJ vein and the catheter was advanced through the sheath, with its distal tip terminating in the right atrium. The peel-away sheath wasremoved. The ports were flushed and aspirated easily following placement. The catheter was sutured to the skin with 2-0 silk to secure its placement. The small jugular incision site was closed using res orbable suture. Vital signs were monitored throughout the procedure by a nurse, and remained stable.The patient tolerated the procedure well and left the department in the same condition. Results: Spot radiograph of the chest demonstrates the new dialysis catheter to lie in the expected position withits tip overlying the superior right atrium. Impression: Successful, uncomplicated placement of a right internal jugular tunneled dialysis catheter using sonographic and fluoroscopic guidance and conscious sedation. Signed: Hari Musaort Verified Date/Time: 03/18/2017 09:52:18 Reading Location: [address] Body Reading Room MISCELLANEOUS LAB [id number] 14:09:00 Test Item Value Reference Range Interpretation Comments SCAN RESULT (test code = 0629811) Result comments: METHICILLIN-SUSCEPTIBLE STAPH. AUREUS (MSSA) DETECTED Staphylococcus aureus DETECTED MecA NOT DETECTED First line therapy: cefazolin or nafcillin (nafcillin preferred if Central Nervous System Infection) ID consultation strongly encouraged. Other organisms and resistance markers not co ntained in this PCR panel cannot be excluded and follow-up of traditional culture results is required. This sample was tested at the [facility] using the [employer] Blood Culture ID Panel. This test is FDA cleared for in vitro diagnostic use and has been verified and approved by the [facility] for clinical use. Reference Range: Not DetectedBLOOD [id number] 11:00:00 Test Item Value Reference Range Interpretation Comments CULTURE (BEAKER) (test No growth in 5 days code = 1095) BLOOD [id number] 11:00:00 Test Item Value Reference Range Interpretation Comments CULTURE (BEAKER) (test No growth in 5 days code = 1095) BLOOD [id number] 18:00:00 Test Item Value Reference Range Interpretation Comments CULTURE (BEAKER) (test No growth in 5 days code = 1095) BLOOD [id number] 18:00:00 Test Item Value Reference Range Interpretation Comments CULTURE (BEAKER) (test No growth in 5 days code = 1095) BASIC METABOLIC [id number] 07:03:00 Test Item Value Reference Range Interpretation [...] WBC 0-0 (BEAKER) (test code = 413) [id number] 06:15:00 Test Item Value Reference Range Interpretation Comments PROTIME (BEAKER) (test code = 14.6 seconds 11.7-14.7 759) INR (BEAKER) (test code = 370) 1.2 <=5.9 PARTIAL THROMBOPLASTIN TIME 32.5 seconds 22.5-36.0 (BEAKER) (test code = 760) RECOMMENDED COUMADIN/WARFARIN INR THERAPY RANGESSTANDARD DOSE: 2.0 - 3.0 Includes: PROPHYLAXIS for venous thrombosis, systemic embolization; TREATMENT for venous thrombosis and/or pulmonary embolus.HIGH RISK: Target INR is 2.5-3.5 for patients with mechanical heart valves.BASIC METABOLIC [id number] 06:38:00 Test Item Value Reference Range Interpretation [...] S NOT APPLICABLE FOR DIALYSIS PATIEN TS. [id number] 06:26:00 Test Item Value Reference Range Interpretation Comments PHOSPHORUS (BEAKER) (test code = 5.9 mg/dL 2.3-4.7 H 604) [id number] 06:26:00 Test Item Value Reference Range Interpretation Comments MAGNESIUM (BEAKER) (test code = 2.0 mg/dL 1.6-2.6 627) CBC W/PLT COUNT & AUTO [id number] 06:00:00 Test Item Value Reference Range Interpretation [...] 0-1 PERCENT (BEAKER) (test code = 2801) [id number] 07:32:00 Test Item Value Reference Range Interpretation [...] % 20-55 H (test code = 2590) [id number] 07:19:00 Test Item Value Reference Range Interpretation Comments PHOSPHORUS (BEAKER) (test code = 5.3 mg/dL 2.3-4.7 H 604) [id number] 07:19:00 Test Item Value Reference Range Interpretation Comments MAGNESIUM (BEAKER) (test code = 2.2 mg/dL 1.6-2.6 627) BASIC METABOLIC [id number] 07:19:00 Test Item Value Reference Range Interpretation [...] PATIEN TS. CBC W/PLT COUNT & AUTO [id number] 06:51:00 Test Item Value Reference Range Interpretation [...] (BEAKER) (test code = 2801) CATHETER TIP [id number] 16:52:00 Test Item Value Reference Range Interpretation Comments CULTURE (BEAKER) A <15 [place]ie s On Direct (test code = 1095) Plate Coa gulase negative Staphylococcus CATHETER TIP [id number] 16:49:00 Test Item Value Reference Range Interpretation Comments CULTURE (BEAKER) (test code = 1095) No growth BLOOD [id number] 08:10:00 Test Item Value Reference Range Interpretation [...] gram 1123) positive cocci in clusters BLOOD [id number] 08:08:00 Test Item Value Reference Interpretation Comments [...] This sample was tested at the [facility] using the [employer] Blood Culture ID Panel. This test is FDA cleared for in vitro diagnostic use and has been verified and approved by the [facility] for clinical use. Reference Range: Not DetectedBASIC METABOLIC [id number] 07:05:00 Test Item Value Reference Range Interpretation [...] GFR I S NOT APPLICABLE FOR DIALYSIS SHEY TS. [id number] 07:01:00 Test Item Value Reference Range Interpretation Comments PHOSPHORUS (BEAKER) (test code = 4.8 mg/dL 2.3-4.7 H 604) [id number] 07:01:00 Test Item Value Reference Range Interpretation Comments MAGNESIUM (BEAKER) (test code = 2.2 mg/dL 1.6-2.6 627) CBC W/PLT COUNT & AUTO [id number] 06:39:00 Test Item Value Reference Range Interpretation [...] 0-1 PERCENT (BEAKER) (test code = 2801) [id number] 23:09:00 Test Item Value Reference Range Interpretation Comments SODIUM (BEAKER) (test code = 381) 141 meq/L 136-145 POTASSIUM (BEAKER) (test code = 4.2 meq/L 3.5-5.1 379) CHLORIDE (BEAKER) (test code = 382) 106 meq/L 98-107 CO2 (BEAKER) (test code = 355) 22 meq/L 22-29 BASIC METABOLIC [id number] 13:19:00 Test Item Value Reference Range Interpretation [...] S NOT APPLICABLE FOR DIALYSIS PATIEN TS. [id number] 13:11:00 Test Item Value Reference Range Interpretation Comments PHOSPHORUS (BEAKER) (test code = 3.6 mg/dL 2.3-4.7 604) [id number] 13:11:00 Test Item Value Reference Range Interpretation Comments MAGNESIUM (BEAKER) (test code = 2.1 mg/dL 1.6-2.6 627) CBC W/PLT COUNT & AUTO [id number] 12:55:00 Test Item Value Reference Range Interpretation [...] = 2801) ANG, REMOVAL OF TUNNELED CVC [id number] 12:44:00Reason for exam:->ESRD bacteremia concern for line [...] as local anesthetic. An linear incision was madein the left chest wall followed by removal of the indwelling left chest port. The incision was closed using 3-0 Vicryl in subcuticular fashion. The right internal jugular tunneled dialysis catheter wasremoved after blunt dissection. Both catheter and port were sent to microbiology. Hemostasis was achieved. The patient tolerated the procedure well without any adverse reactions. He left the departmentin stable condition. Complication: None immediate Impression: 1. Left internal jugular chest port and right internal jugular tunneled dialysis catheter removal as described. Signed: Eusebia Brooks MDReport Verified Date/Time: 02/27/2017 12:44:21 Reading Location: [place] [address] Angio Body Reading Room VANCOMYCIN LEVEL, RANDOM 2017-02-27 05:46:00 Test Item Value Reference Range Interpretation Comments VANCOMYCIN RANDOM (BEAKER) (test 20.4 ug/mL code = 523) Reference Range: No NormalsHEPATITIS B SURFACE [id number] 15:33:00 Test Item Value Reference Range Interpretation Comments HEPATITIS B SURFACE ANTIGEN (2) Nonreactive Nonreactive (BEAKER) (test code = 2585) CBC W/PLT COUNT & AUTO [id number] 07:12:00 Test Item Value Reference Range Interpretation [...] (BEAKER) (test code = 2801) BASIC METABOLIC [id number] 06:47:00 Test Item Value Reference Range Interpretation [...] S NOT APPLICABLE FOR DIALYSIS PATIEN TS. [id number] 06:43:00 Test Item Value Reference Range Interpretation Comments PHOSPHORUS (BEAKER) (test code = 3.0 mg/dL 2.3-4.7 604) PROTHROMBIN [id number] 06:07:00 Test Item Value Reference Range Interpretation Comments PROTIME (BEAKER) (test code = 15.2 seconds 11.7-14.7 H 759) INR (BEAKER) (test code = 370) 1.2 <=5.9 RECOMMENDED COUMADIN/WARFARIN INR THERAPY RANGESSTANDARD DOSE: 2.0 - 3.0 Includes: PROPHYLAXIS for venous thrombosis, systemic embolization; TREATMENT for venous thrombosis and/or pulmonary embolus.HIGH RISK: Target INR is 2.5-3.5 for patients with mechanical heart valves.LATASHA, TUNNELED DIALYSIS CATH INSERTION 2017-01-26 07:52:00FINAL REPORT Tunneled dialysis catheter insertion, 01/25/2017. History: Renal failure. Modality: Sonography and fluoroscopy. Sedation: Versed 1.0 mg and fentanyl 100 mcg was given intravenously for conscious sedation. Vital signs were monitored throughout the procedure by a nurse, and remained stable. Physician intra-service time was 20 minutes. Change Director: Dimple. Territory Sales Manager: None. Approach: Right internal jugular vein Estimated [...] needle into the right atrium. A 4 [place] micropuncture sheath was placed. A subcutaneous tunnel was created in the right anterior chest wall by bluntdissection. A 19 cm 15.5 [place] Duraflow 2 catheter was brought through the [...] and left the department in the same condition.The patient was given 1 gram of Ancef intravenously during the procedure. Results: Spot radiograph of the chest demonstrates the new dialysis catheter to lie in the expected position with its tip overlying the superior right atrium. Impression: Successful, uncomplicated placement of a right internaljugular tunneled dialysis catheter using sonographic and fluoroscopic guidance and conscious sedation. Signed: Hari Musa MDReport Verified Date/Time: 01/26/2017 07:52:45 Reading Location: [place] [address] Angio Body Reading Room POCT-GLUCOSE [id number] 01:07:00 Test Item Value Reference Range Interpretation Comments POC-GLUCOSE METER 179 mg/dL 70-[address] [facility] 6720 (BEAKER) (test code = TATY Olivas [facility] 1538) [address] BASIC METABOLIC [id number] 21:57:00 Test Item Value Reference Range Interpretation [...] PATIEN TS. CREATINE KINASE (CK), TOTAL AND [id number] 21:52:00 Test Item Value Reference Range Interpretation Comments CREATINE KINASE TOTAL (BEAKER) 159 U/L 29-200 (test code = 380) CREATINE KINASE-MB (BEAKER) (test 0.8 ng/mL 0.0-6.6 code = 750) CREATINE KINASE-MB INDEX (BEAKER) 0.5 % (test code = 395) CK-MB Reference Range:<6.7 Normal6.7-10.0 Borderline>10.0 AbnormalRAD, CHEST, 1 VIEW, NON [id number] 21:52:00Reason for exam:->CHEST PAINShould this be performed at the bedside?->YesFINAL [...] right internal jugular double lumen catheter that termina alok at the cavoatrial junction. There is a left chest port that terminates in the low SVC. Signed: Liz Leach [facility] Systems[facility] Verified Date/Time: 01/25/2017 21:52:27 Reading Location: [facility] [id number] Consult Reading Room TROPONIN I 2017-01-25 21:27:00 Test Item Value Reference Range Interpretation [...] (test code = 2801) HEPATITIS B SURFACE [id number] 15:55:00 Test Item Value Reference Range Interpretation Comments HEPATITIS B SURFACE ANTIGEN (2) Nonreactive Nonreactive (BEAKER) (test code = 2585) BASIC METABOLIC [id number] 07:30:00 Test Item Value Reference Range Interpretation [...] S NOT APPLICABLE FOR DIALYSIS PATIEN TS. [id number] 07:18:00 Test Item Value Reference Range Interpretation Comments PHOSPHORUS (BEAKER) (test code = 5.9 mg/dL 2.3-4.7 H 604) [id number] 07:18:00 Test Item Value Reference Range Interpretation Comments MAGNESIUM (BEAKER) (test code = 2.2 mg/dL 1.6-2.6 627) PROTHROMBIN [id number] 06:43:00 Test Item Value Reference Range Interpretation Comments PROTIME (BEAKER) (test code = 13.6 seconds 11.7-14.7 759) INR (BEAKER) (test code = 370) 1.1 <=5.9 RECOMMENDED COUMADIN/WARFARIN INR THERAPY RANGESSTANDARD DOSE: 2.0 - 3.0 Includes: PROPHYLAXIS for venous thrombosis, systemic embolization; TREATMENT for venous thrombosis and/or pulmonary embolus.HIGH RISK: Target INR is 2.5-3.5 for patients with mechanical heart valves.CBC W/PLT COUNT & AUTO [id number] 06:42:00 Test Item Value Reference Range Interpretation [...] = 2801) CBC W/PLT COUNT & AUTO [id number] 14:36:00 Test Item Value Reference Range Interpretation [...] code 1+ few = 480) BASIC METABOLIC [id number] 07:18:00 Test Item Value Reference Range Interpretation [...] S NOT APPLICABLE FOR DIALYSIS PATIEN TS. [id number] 07:11:00 Test Item Value Reference Range Interpretation Comments PHOSPHORUS (BEAKER) (test code = 3.7 mg/dL 2.3-4.7 604) CBC W/PLT COUNT & AUTO [id number] 11:27:00 Test Item Value Reference Range Interpretation [...] 1+ few code = 478) BASIC METABOLIC [id number] 08:40:00 Test Item Value Reference Range Interpretation [...] S NOT APPLICABLE FOR DIALYSIS PATIEN TS. [id number] 08:38:00 Test Item Value Reference Range Interpretation Comments PHOSPHORUS (BEAKER) (test code = 4.0 mg/dL 2.3-4.7 604) CBC W/PLT COUNT & AUTO [id number] 13:06:00 Test Item Value Reference Range Interpretation [...] (test code = Normal 762) HEPATITIS B [id number] 11:49:00 Test Item Value Reference Range Interpretation Comments HEPATITIS B CORE TOTAL ANTIBODY Nonreactive Nonreactive (BEAKER) (test code = 497) HEPATITIS B SURFACE ANTIBODY < mIU/mL <8.0 (BEAKER) (test code = 647) HEPATITIS B SURFACE ANTIGEN (2) Nonreactive Nonreactive (BEAKER) (test code = 2585) [id number] 11:19:00 Test Item Value Reference Range Interpretation Comments PROTIME (BEAKER) (test code = 13.3 seconds 11.7-14.7 759) INR (BEAKER) (test code = 370) 1.0 <=5.9 PARTIAL THROMBOPLASTIN TIME 32.9 seconds 22.5-36.0 (BEAKER) (test code = 760) RECOMMENDED COUMADIN/WARFARIN INR THERAPY RANGESSTANDARD DOSE: 2.0 - 3.0 Includes: PROPHYLAXIS for venous thrombosis, systemic embolization; TREATMENT for venous thrombosis and/or pulmonary embolus.HIGH RISK: Target INR is 2.5-3.5 for patients with mechanical heart valves.BASIC METABOLIC [id number] 07:32:00 Test Item Value Reference Range Interpretation [...] S NOT APPLICABLE FOR DIALYSIS PATIEN TS. [id number] 07:17:00 Test Item Value Reference Range Interpretation Comments PHOSPHORUS (BEAKER) (test code = 3.3 mg/dL 2.3-4.7 604) [id number] 07:17:00 Test Item Value Reference Range Interpretation Comments MAGNESIUM (BEAKER) (test code = 2.0 mg/dL 1.6-2.6 627) HEPATIC FUNCTION [id number] 07:17:00 Test Item Value Reference Range Interpretation [...] = 13 U/L 6-55 347) COMPREHENSIVE METABOLIC [id number] 17:39:00 Test Item Value Reference Range Interpretation [...] S NOT APPLICABLE FOR DIALYSIS PATIEN TS. [id number] 17:36:00 Test Item Value Reference Range Interpretation Comments MAGNESIUM (BEAKER) 2.2 mg/dL 1.6-2.6 Specimen slightly (test code = 627) hemolyzed CBC W/PLT COUNT & AUTO [id number] 16:57:00 Test Item Value Reference Range Interpretation [...] 0.00-0.20 (test code = 417) 0.00COMPREHENSIVE METABOLIC [id number] 06:52:00 Test Item Value Reference Range Interpretation [...] NOT APPLICABLE FOR DIALYSIS PATIEN TS. URIC [id number] 06:51:00 Test Item Value Reference Range Interpretation Comments URIC ACID (BEAKER) (test code = 8.2 mg/dL 2.6-7.2 H 773) LACTATE DEHYDROGENASE (LDH)2016-08-07 06:51:00 Test Item Value Reference Range Interpretation Comments LACTATE DEHYDROGENASE (BEAKER) (test 233 U/L 125-220 H code = 635) CBC W/PLT COUNT & AUTO [id number] 15:03:00 Test Item Value Reference Range Interpretation [...] (test code = Normal 762) COMPREHENSIVE METABOLIC [id number] 06:13:00 Test Item Value Reference Range Interpretation [...] NOT APPLICABLE FOR DIALYSIS PATIEN TS. URIC [id number] 06:05:00 Test Item Value Reference Range Interpretation Comments URIC ACID (BEAKER) (test code = 5.3 mg/dL 2.6-7.2 773) [id number] 06:05:00 Test Item Value Reference Range Interpretation Comments MAGNESIUM (BEAKER) (test code = 1.9 mg/dL 1.6-2.6 627) [id number] 06:05:00 Test Item Value Reference Range Interpretation Comments PHOSPHORUS (BEAKER) (test code = 3.8 mg/dL 2.3-4.7 604) LACTATE DEHYDROGENASE (LDH)2016-08-06 06:05:00 Test Item Value Reference Range Interpretation Comments LACTATE DEHYDROGENASE (BEAKER) (test 248 U/L 125-220 H code = 635) [id number] 06:51:00 Test Item Value Reference Range Interpretation Comments PHOSPHORUS (BEAKER) (test code = 3.5 mg/dL 2.3-4.7 604) [id number] 06:51:00 Test Item Value Reference Range Interpretation Comments MAGNESIUM (BEAKER) (test code = 1.9 mg/dL 1.6-2.6 627) BASIC METABOLIC [id number] 06:51:00 Test Item Value Reference Range Interpretation [...] PATIEN TS. CBC W/PLT COUNT & AUTO [id number] 06:37:00 Test Item Value Reference Range Interpretation [...] 0.00-0.20 (test code = 417) 0.00BASIC METABOLIC [id number] 12:49:00 Test Item Value Reference Range Interpretation [...] NOT APPLICABLE FOR DIALYSIS PATIEN TS. URIC [id number] 12:46:00 Test Item Value Reference Range Interpretation Comments URIC ACID (BEAKER) (test code = 5.2 mg/dL 2.6-7.2 773) [id number] 12:46:00 Test Item Value Reference Range Interpretation Comments MAGNESIUM (BEAKER) (test code = 2.1 mg/dL 1.6-2.6 627) [id number] 12:46:00 Test Item Value Reference Range Interpretation Comments PHOSPHORUS (BEAKER) (test code = 3.8 mg/dL 2.3-4.7 604) HEPATIC FUNCTION [id number] 12:46:00 Test Item Value Reference Range Interpretation [...] = 635) CBC W/PLT COUNT & AUTO [id number] 12:27:00 Test Item Value Reference Range Interpretation [...] (test code = 417) 0.00HEPATITIS B SURFACE [id number] 14:54:00 Test Item Value Reference Range Interpretation Comments HEPATITIS B SURFACE ANTIGEN (2) Nonreactive Nonreactive (BEAKER) (test code = 2585) CBC W/PLT COUNT & AUTO [id number] 10:30:00 Test Item Value Reference Range Interpretation [...] code = 1+ few 481) COMPREHENSIVE METABOLIC [id number] 06:29:00 Test Item Value Reference Range Interpretation [...] = 635) CBC W/PLT COUNT & AUTO [id number] 06:53:00 Test Item Value Reference Range Interpretation [...] 0.00-0.20 (test code = 417) 0.00COMPREHENSIVE METABOLIC [id number] 06:47:00 Test Item Value Reference Range Interpretation [...] = 635) CBC W/PLT COUNT & AUTO [id number] 11:26:00 Test Item Value Reference Range Interpretation [...] (test code = Normal 762) BASIC METABOLIC [id number] 05:47:00 Test Item Value Reference Range Interpretation [...] NOT APPLICABLE FOR DIALYSIS PATIEN TS. URIC [id number] 05:44:00 Test Item Value Reference Range Interpretation Comments URIC ACID (BEAKER) (test code = 9.4 mg/dL 2.6-7.2 H 773) [id number] 05:44:00 Test Item Value Reference Range Interpretation Comments PHOSPHORUS (BEAKER) (test code = 5.1 mg/dL 2.3-4.7 H 604) HEPATIC FUNCTION [id number] 05:44:00 Test Item Value Reference Range Interpretation [...] = 635) CBC W/PLT COUNT & AUTO [id number] 11:11:00 Test Item Value Reference Range Interpretation [...] 1+ few code = 478) BASIC METABOLIC [id number] 07:05:00 Test Item Value Reference Range Interpretation [...] NOT APPLICABLE FOR DIALYSIS PATIEN TS. URIC [id number] 07:04:00 Test Item Value Reference Range Interpretation Comments URIC ACID (BEAKER) (test code = 4.6 mg/dL 2.6-7.2 773) [id number] 07:04:00 Test Item Value Reference Range Interpretation Comments PHOSPHORUS (BEAKER) (test code = 3.1 mg/dL 2.3-4.7 604) HEPATIC FUNCTION [id number] 07:04:00 Test Item Value Reference Range Interpretation [...] = 635) CBC W/PLT COUNT & AUTO [id number] 06:57:00 Test Item Value Reference Range Interpretation [...] (BEAKER) (test code = 1351) BASIC METABOLIC [id number] 06:09:00 Test Item Value Reference Range Interpretation [...] NOT APPLICABLE FOR DIALYSIS PATIEN TS. URIC [id number] 06:05:00 Test Item Value Reference Range Interpretation Comments URIC ACID (BEAKER) (test code = 6.5 mg/dL 2.6-7.2 773) [id number] 06:05:00 Test Item Value Reference Range Interpretation Comments PHOSPHORUS (BEAKER) (test code = 5.0 mg/dL 2.3-4.7 H 604) HEPATIC FUNCTION [id number] 06:05:00 Test Item Value Reference Range Interpretation [...] 125-220 H code = 635) URINALYSIS W/ [id number] 22:18:00 Test Item Value Reference Range Interpretation [...] SOURCE(BEAKER) (test code Urine, Clean Catch = 3895) CBC W/PLT COUNT & AUTO [id number] 20:30:00 Test Item Value Reference Range Interpretation [...] 0.00-0.20 (test code = 417) 0.00COMPREHENSIVE METABOLIC [id number] 20:25:00 Test Item Value Reference Range Interpretation [...] NOT APPLICABLE FOR DIALYSIS PATIEN TS. URIC [id number] 20:24:00 Test Item Value Reference Range Interpretation Comments URIC ACID (BEAKER) (test code = 5.8 mg/dL 2.6-7.2 773) [id number] 20:24:00 Test Item Value Reference Range Interpretation Comments PHOSPHORUS (BEAKER) (test code = 4.8 mg/dL 2.3-4.7 H 604) LACTATE DEHYDROGENASE (LDH)2016-07-14 20:24:00 Test Item Value Reference Range Interpretation Comments LACTATE DEHYDROGENASE (BEAKER) (test 245 U/L 125-220 H code = 635) PROTHROMBIN [id number] 20:12:00 Test Item Value Reference Range Interpretation Comments PROTIME (BEAKER) (test code = 13.0 seconds 11.7-14.7 759) INR (BEAKER) (test code = 370) 1.0 <=5.9 RECOMMENDED COUMADIN/WARFARIN INR THERAPY RANGESSTANDARD DOSE: 2.0 - 3.0 Includes: PROPHYLAXIS for venous thrombosis, systemic embolization; TREATMENT for venous thrombosis and/or pulmonary embolus.HIGH RISK: Target INR is 2.5-3.5 for patients with mechanical heart valves.[id number] 15:01:00 Test Item Value Reference Range Interpretation Comments LAB AP CPT CODE (BEAKER) (test code = 24494 2749) CBC W/PLT COUNT & AUTO [id number] 14:40:00 Test Item Value Reference Range Interpretation [...] (test code = Normal 762) BASIC METABOLIC [id number] 07:34:00 Test Item Value Reference Range Interpretation [...] S NOT APPLICABLE FOR DIALYSIS PATIEN TS. [id number] 07:26:00 Test Item Value Reference Range Interpretation Comments PHOSPHORUS (BEAKER) (test code = 5.0 mg/dL 2.3-4.7 H 604) [id number] 07:26:00 Test Item Value Reference Range Interpretation Comments MAGNESIUM (BEAKER) (test code = 2.0 mg/dL 1.6-2.6 627) HEPATIC FUNCTION [id number] 07:26:00 Test Item Value Reference Range Interpretation [...] = 14 U/L 6-55 347) FLOW CYTOMETRY [id number] 11:51:00 Test Item Value Reference Range Interpretation Comments FLOW CYTOMETRY RESULT See Separate Report POINTER (BEAKER) (test code = 2758) FLOW CYTOMETRY AP CASE # [id number] (BEAKER) (test code = 2759) HEPATITIS B SURFACE [id number] 09:53:00 Test Item Value Reference Range Interpretation Comments HEPATITIS B SURFACE ANTIGEN (2) Nonreactive Nonreactive (BEAKER) (test code = 2585) FLOW [id number] 09:46:00 Test Item Value Reference Range Interpretation Comments LAB AP CPT CODE (BEAKER) (test code = 57404 2749) BASIC METABOLIC [id number] 06:27:00 Test Item Value Reference Range Interpretation [...] S NOT APPLICABLE FOR DIALYSIS PATIEN TS. [id number] 06:26:00 Test Item Value Reference Range Interpretation Comments PHOSPHORUS (BEAKER) (test code = 3.3 mg/dL 2.3-4.7 604) [id number] 06:26:00 Test Item Value Reference Range Interpretation Comments MAGNESIUM (BEAKER) (test code = 1.9 mg/dL 1.6-2.6 627) HEPATIC FUNCTION [id number] 06:26:00 Test Item Value Reference Range Interpretation [...] 6-55 347) CBC W/PLT COUNT & AUTO [id number] 06:10:00 Test Item Value Reference Range Interpretation [...] (test code = 417) 0.00CSF CELL COUNT [id number] 16:38:00 Test Item Value Reference Range Interpretation [...] NUMBER CSF (BEAKER) (test 1 code = 6578) CBC W/PLT COUNT & AUTO [id number] 06:59:00 Test Item Value Reference Range Interpretation [...] 0.00-0.20 (test code = 417) 0.00BASI METABOLIC [id number] 06:18:00 Test Item Value Reference Range Interpretation [...] S NOT APPLICABLE FOR DIALYSIS PATIEN TS. [id number] 06:17:00 Test Item Value Reference Range Interpretation Comments PHOSPHORUS (BEAKER) (test code = 4.9 mg/dL 2.3-4.7 H 604) [id number] 06:17:00 Test Item Value Reference Range Interpretation Comments MAGNESIUM (BEAKER) (test code = 1.8 mg/dL 1.6-2.6 627) HEPATIC FUNCTION [id number] 06:17:00 Test Item Value Reference Range Interpretation [...] = 13 U/L 6-55 347) COMPREHENSIVE METABOLIC [id number] 21:37:00 Test Item Value Reference Range Interpretation [...] NOT APPLICABLE FOR DIALYSIS PATIEN TS. URIC [id number] 21:36:00 Test Item Value Reference Range Interpretation Comments URIC ACID (BEAKER) (test code = 4.9 mg/dL 2.6-7.2 773) LACTATE DEHYDROGENASE (LDH)[id number] 21:36:00 Test Item Value Reference Range Interpretation Comments LACTATE DEHYDROGENASE (BEAKER) (test 223 U/L 125-220 H code = 635) PROTHROMBIN [id number] 21:23:00 Test Item Value Reference Range Interpretation Comments PROTIME (BEAKER) (test code = 13.2 seconds 11.7-14.7 759) INR (BEAKER) (test code = 370) 1.0 <=5.9 RECOMMENDED COUMADIN/WARFARIN INR THERAPY RANGESSTANDARD DOSE: 2.0 - 3.0 Includes: PROPHYLAXIS for venous thrombosis, systemic embolization; TREATMENT for venous thrombosis and/or pulmonary embolus.HIGH RISK: Target INR is 2.5-3.5 for patients with mechanical heart valves.CBC W/PLT COUNT & AUTO [id number] 21:18:00 Test Item Value Reference Range Interpretation [...]
[2022-03-13 06:29] LABS: Absolute Lymphocytes (CBC) 0.2 K/uL (0.7-4.9); Hematocrit 26.7 % (39.6-49.0); Lymphocytes % 3.2 % (15.3-44.8); MCV 88.4 fL (80-100); MPV 9.2 fL (7.6-11.3); RBC Red Blood Cell Count 3.02 M/uL (4.33-5.43)
[2022-03-13 06:37] LABS: Protime INR 1.22
[2022-03-13 06:50] LABS: ALT/SGPT 20 U/L (12-78); AST/SGOT 15 U/L (15-37); Albumin 2.9 g/dL (3.4-5.0); Alkaline Phosphatase 54 U/L (45-117); BUN Blood Urea Nitrogen 63 mg/dL (7-18); Bicarbonate 25 mmol/L (21-32); Bilirubin Direct 0.2 mg/dL (0-0.2); Bilirubin Total 0.5 mg/dL (0.2-1.0); Glucose Level 110 mg/dL (74-106); Magnesium 2.5 mg/dL (1.8-2.4); Potassium 4.5 mmol/L (3.5-5.1); Protein, Total 6.9 g/dL (6.4-8.2); Sodium Level 133 mmol/L (136-145)
--- NOTE | 2022-03-13 06:58 | RAD REPORT ---
EXAM DESCRIPTION: RAD - Chest Single View - 03/13/2022 6:51 am CLINICAL HISTORY: CHEST PAIN COMPARISON: Chest Single View dated 09/10/2021; Chest Pa And Lat (2 Views) dated 08/20/2020; Chest Sing le View dated 01/03/2018; Chest Single View dated 02/24/2017 FINDINGS: Lines: None. Lungs: Decreased prominence of the pulmonary interstitium. This is modestly improved since 09/10/2021 . Pleural: No significant pleural effusions or pneumothorax. Cardiac: Cardiomegaly. Mediastinum: Within normal limits. Bones: No acute fractures. Other: None IMPRESSION: Mild edema suspected.
[2022-03-13 07:02] LABS: Glomerular Filtration Rate 4 ml/min (=/>90)
[2022-03-13 07:03] LABS: NT PRO-BNP > 175000 pg/mL (<125)
--- NOTE | 2022-03-13 10:05 | ER ---
Nurse's Notes [facility] Name: Naldo Alejandre Age: 67 yrs Sex: Male : 1955 Arrival Date: 03/13/2022 Time: 05:56 Bed 3 Private MD: Diagnosis: Chest pain, fluid overloaded state, ESRD Presentation: 03/13 05:56 Chief complaint: EMS states: "He has been having chest pain for the past 5 hours. It is tw5 just right in the middle of the chest. We gave him 324 ASA and a neb on the way over. He does have a history of HTN and he goes to dialysis on MWF. He missed it yesterday because he was suppose to get a booster for covid. He is suppose to go tomorrow. 05:58 Coronavirus screen: Vaccine status: Patient reports receiving the 2nd dose of the covid tw5 vaccine. Ebola Screen: Patient negative for fever greater than or equal to 101.5 degrees Fahrenheit, and additional compatible Ebola Virus Disease symptoms Patient denies exposure to infectious person. Patient denies travel to an Ebola-affected area in the 21 days before illness onset. Initial Sepsis Screen: Does the patient meet any 2 criteria? No. Patient's initial sepsis screen is negative. Does the patient have a suspected source of infection? No. Patient's initial sepsis screen is negative. Risk Assessment: Do you want to hurt yourself or someone else? Patient reports no desire to harm self or others. Onset of symptoms was March 13, 2022 at 00:00. 05:58 Method Of Arrival: EMS: [facility] tw5 05:58 Acuity: TERRI 2 tw5 Triage Assessment: 06:06 General: Appears in no apparent distress. Behavior is cooperative, restless. Pain: Pain tw5 currently is 5 out of 10 on a pain scale. Historical: - Allergies: 06:06 No Known Allergies; tw5 - PMHx: 06:06 Dialysis; M,W,F; ESRD; Hyperlipidemia; Hypertension; kidney disease; LYMPHOMA; tw5 - Immunization history:: Client reports receiving the 2nd dose of the Covid vaccine, Flu vaccine is up to date. - Social history:: Smoking status: Patient reports the use of cigarette tobacco products, smokes one-half pack cigarettes per day. Screenin:07 Abuse screen: Denies threats or abuse. Denies injuries from another. Nutritional tw5 screening: No deficits noted. Tuberculosis screening: No symptoms or risk factors identified. Fall Risk None identified. Assessment: 06:05 General: Reports "I cannot sleep. My power went off and it got cold. It made it hard to tw5 breath.". General: Patient sitting up in bed with blankets over head.. Pain: Complains of pain in chest Pain does not radiate. Pain began 4 hours ago. Neuro: Level of Consciousness is awake, alert, obeys commands, Oriented to person, place, situation. Cardiovascular:. Respiratory: Airway is patent. 06:08 General: Reports "I am suppose to go to dialysis at 10 today.". tw5 07:54 Reassessment: Patient appears in no apparent distress at this time. Patient and/or ph family updated on plan of care and expected duration. Pain level reassessed. Pt asleep w/ stable VS. 09:30 Reassessment: Patient appears in no apparent distress at this time. Patient and/or vg1 family updated on plan of care and expected duration. Pain level reassessed. Patient is alert, oriented x 3, equal unlabored respirations, skin warm/dry/pink. Patient denies pain at this time. 10:45 Reassessment: Patient appears in no apparent distress at this time. Patient and/or ph family updated on plan of care and expected duration. Pain level reassessed. Patient is alert, oriented x 3, equal unlabored respirations, skin warm/dry/pink. Pt d/c to lobby to awaiti ride, spoke w/ dialysis at 1015 who states that he can be dialyzed if he arrives w/in approx 1 hour. Vital Signs: 06:06 BP 125 / 83; Pulse 83; Resp 28; Temp 98.1; Pulse Ox 93% on R/A; Weight 96.62 kg; Height tw5 6 ft. 2 in. (187.96 cm); Pain 5/10; 07:54 BP 123 / 83; Pulse 86; Resp 14; Pulse Ox 93% on R/A; ph 09:30 BP 145 / 89; Pulse 84; Resp 15; Pulse Ox 94% on R/A; vg1 06:06 Body Mass Index 27.35 (96.62 kg, 187.96 cm) tw5 Vitals: 07:54 Cardiac Rhythm Assessment Sinus rhythm. ph ED Course: 05:56 Patient arrived in ED. tw5 05:56 Ana Luisa Underwood MD is Attending Physician. sp3 05:58 Yolanda Gallo is Primary Nurse. tw5 05:58 Triage completed. tw5 06:06 Arm band placed on Patient placed in an exam room. tw5 06:07 Patient has correct armband on for positive identification. Bed in low position. Call tw5 light in reach. Side rails up X2. Client placed on continuous cardiac and pulse oximetry monitoring. NIBP monitoring applied. Door closed. Noise minimized. Moved to private room. Warm blanket given. Verbal reassurance given. 06:07 Patient maintains SpO2 saturation greater than 95% on room air. tw5 06:17 Basic Metabolic Panel Sent. tw 06:17 CBC with Diff Sent. tw5 06:17 LFT's Sent. tw5 06:17 Magnesium Sent. tw5 06:17 NT PRO-BNP Sent. tw 06:17 PT-INR Sent. tw 06:17 Troponin HS Sent. tw 06:17 Initial lab(s) drawn, by id, sent to lab. Inserted saline lock: 20 gauge in left tw5 forearm, using aseptic technique. Blood collected. 06:28 EKG done, by ED staff, reviewed by Ana Luisa Underwood MD. tw5 06:28 Basic Metabolic Panel Sent. tw 06:28 CBC with Diff Sent. tw5 06:28 LFT's Sent. tw5 06:28 NT PRO-BNP Sent. tw5 06:28 PT-INR Sent. tw5 06:28 Troponin HS Sent. tw5 06:28 Magnesium Sent. tw5 06:52 XRAY Chest (1 view) In Process Unspecified. EDMS 10:46 No provider procedures requiring assistance completed. IV discontinued, intact, ph bleeding controlled, No redness/swelling at site. Pressure dressing applied. Administered Medications: No medications were administered Medication: 06:06 VIS not applicable for this client. tw5 Outcome: 10:04 Discharge ordered by . sp3 10:46 Discharged to home via wheelchair. ph 10:46 Condition: good 10:46 Discharge instructions given to patient, Instructed on discharge instructions, follow up and referral plans. Demonstrated understanding of instructions, follow-up care. 10:46 Patient left the ED. ph Signatures: Dispatcher [employer] EDFarooq Deania, RN RN ph Devon, ELEONORA Prather RN vg1 Ana Luisa Underwood MD MD sp3 Yolanda Gallo tw5
--- NOTE | 2022-03-13 10:05 | EDPHYS ---
Physician Documentation [facility] Name: Naldo Alejandre Age: 67 yrs Sex: Male : 1955 Arrival Date: 03/13/2022 Time: 05:56 Bed 3 Private MD: ED Physician Ana Luisa Underwood HPI: 03/13 06:34 This 67 yrs old Black Male presents to ER via EMS with complaints of Chest Pain. sp3 06:34 57-year-old male with a history of end-stage renal disease, hyperlipidemia, sp3 hypertension, history of lymphoma presents to the ED for chest pain that started approximately 1 hour prior to activating EMS when patient states "his power went out". Currently states that pain is mostly gone he is just "trying to go to his dialysis this afternoon". Currently patient denies headache, neck pain, shortness of breath, abdominal pain, back pain, nausea, vomiting, diarrhea, rash, body aches, fever, any other aspects of ROS at this time. Pain is described as diffuse across his entire chest and jaw and again has mainly subsided.. Historical: - Allergies: 06:06 No Known Allergies; tw5 - PMHx: 06:06 Dialysis; M,W,F; ESRD; Hyperlipidemia; Hypertension; kidney disease; LYMPHOMA; tw5 - Immunization history:: Client reports receiving the 2nd dose of the Covid vaccine, Flu vaccine is up to date. - Social history:: Smoking status: Patient reports the use of cigarette tobacco products, smokes one-half pack cigarettes per day. ROS: 06:35 Constitutional: Negative for fever, chills, and weight loss, Eyes: Negative for injury, sp3 pain, redness, and discharge, ENT: Negative for injury, pain, and discharge, Neck: Negative for injury, pain, and swelling, Cardiovascular: Negative for chest pain, palpitations, and edema, Respiratory: Negative for shortness of breath, cough, wheezing, and pleuritic chest pain, Abdomen/GI: Negative for abdominal pain, nausea, vomiting, diarrhea, and constipation, Back: Negative for injury and pain, Skin: Negative for injury, rash, and discoloration, Neuro: Negative for headache, weakness, numbness, tingling, and seizure. 06:35 MS/extremity: Positive for swelling. Exam: 06:54 Constitutional: This is a well developed, well nourished patient who is awake, alert, sp3 and in no acute distress. Head/Face: Normocephalic, atraumatic. Eyes: Pupils equal round and reactive to light, extra-ocular motions intact. Lids and lashes normal. Conjunctiva and sclera are non-icteric and not injected. Cornea within normal limits. Periorbital areas with no swelling, redness, or edema. ENT: Nares patent. No nasal discharge, no septal abnormalities noted. External auditory canals are clear. Oropharynx with no redness, swelling, or masses, exudates, or evidence of obstruction, uvula midline. Mucous membranes moist. Neck: Trachea midline, no thyromegaly or masses palpated, and no cervical lymphadenopathy. Supple, full range of motion without nuchal rigidity, or vertebral point tenderness. No Meningismus. 06:54 Chest/axilla: Normal chest wall appearance and motion. Nontender with no deformity. sp3 No lesions are appreciated. Cardiovascular: Regular rate and rhythm with a normal S1 and S2. No gallops, murmurs, or rubs. Normal PMI, no JVD. No pulse deficits. Respiratory: Lungs have equal breath sounds bilaterally, clear to auscultation and percussion. No rales, rhonchi or wheezes noted. No increased work of breathing, no retractions or nasal flaring. Abdomen/GI: Soft, non-tender, with normal bowel sounds. No distension or tympany. No guarding or rebound. No evidence of tenderness throughout. Back: No spinal tenderness. No costovertebral tenderness. Full range of motion. Skin: Warm, dry with normal turgor. Normal color with no rashes, no lesions, and no evidence of cellulitis. Neuro: Awake and alert, GCS 15, oriented to person, place, time, and situation. Cranial nerves II-XII grossly intact. Motor strength 5/5 in all extremities. Sensory grossly intact. Cerebellar exam normal. Normal gait. Psych: Awake, alert, with orientation to person, place and time. Behavior, mood, and affect are within normal limits. 06:54 Musculoskeletal/extremity: Bilateral pedal edema consistent with fluid overload and venous stasis at baseline.. 06:55 ECG was reviewed by the Attending Physician. EKG indicates normal sinus rhythm at 83 sp3 bpm with normal intervals, leftward axis, poor R wave progression and nonspecific diffuse ST/T changes without evidence of acute ischemia. Vital Signs: 06:06 BP 125 / 83; Pulse 83; Resp 28; Temp 98.1; Pulse Ox 93% on R/A; Weight 96.62 kg; Height tw5 6 ft. 2 in. (187.96 cm); Pain 5/10; 07:54 BP 123 / 83; Pulse 86; Resp 14; Pulse Ox 93% on R/A; ph 09:30 BP 145 / 89; Pulse 84; Resp 15; Pulse Ox 94% on R/A; vg1 06:06 Body Mass Index 27.35 (96.62 kg, 187.96 cm) tw5 MDM: 06:30 Patient medically screened. sp3 06:36 Data reviewed: vital signs, nurses notes, EMS record, old medical records, EKG. ED sp3 course: 67-year-old male with complex medical history presenting with chest pain that resolved. Differential diagnosis includes acute coronary syndrome, angina, pneumonia, esophagitis, GERD. Less likely diagnoses include pulmonary embolism, thoracic aortic dissection or aneurysm, other vascular pathology, sepsis, shock mediastinitis. I been highly suspicious for critical illness of this patient. We will obtain 2 troponin values 2 hours apart and if negative, will discharge patient home to turn his dialysis this afternoon and continue to follow-up with his primary care physician. Patient is okay with the plan and has no further questions. As needed for this high complexity patient.. 10:02 ED course: Troponin 273 trending down. 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 Patient is having no chest pain is and is resting comfortably. He is requesting discharge so he can make his dialysis appointment.. 03/13 06:02 Order name: Basic Metabolic Panel; Complete Time: 07:41 sp3 03/13 06:02 Order name: CBC with Diff; Complete Time: 07: sp3 03/13 06:02 Order name: LFT's; Complete Time: 07:41 sp3 03/13 06:02 Order name: Magnesium; Complete Time: 07:41 sp3 03/13 06:02 Order name: NT PRO-BNP; Complete Time: 07: sp3 03/13 06:02 Order name: PT-INR; Complete Time: 07:41 sp3 03/13 06:02 Order name: Troponin HS; Complete Time: 07:41 sp3 03/13 06:02 Order name: XRAY Chest (1 view); Complete Time: 07:41 sp3 03/13 06:02 Order name: EKG; Complete Time: 06:03 sp3 03/13 06:02 Order name: Cardiac monitoring; Complete Time: 06:17 sp3 03/13 06:02 Order name: EKG - Nurse/Tech; Complete Time: 06:28 sp3 03/13 06:02 Order name: IV Saline Lock; Complete Time: 06:28 sp3 03/13 06:02 Order name: Labs collected and sent; Complete Time: 06:28 sp3 03/13 07:46 Order name: Troponin HS: Draw at 0900; Complete Time: 10:02 sp3 03/13 06:02 Order name: O2 Per Protocol; Complete Time: 06:28 sp3 03/13 06:02 Order name: O2 Sat Monitoring; Complete Time: 06:28 sp3 Administered Medications: No medications were administered Disposition Summary: 03/13/22 10:04 Discharge Ordered Location: Home sp3 Condition: Stable sp3 Diagnosis - Chest pain, fluid overloaded state, ESRD sp3 Followup: sp3 - With: Private Physician - When: Upon discharge from the Emergency Department - Reason: Continuance of care Discharge Instructions: - Discharge Summary Sheet sp3 - Hemodialysis sp3 Forms: - Medication Reconciliation Form sp3 - Thank You Letter sp3 - Antibiotic Education sp3 - Prescription Opioid Use sp3 Signatures: Dispatcher [employer] Ana Luisa Giraldo MD MD sp3 Yolanda Gallo tw5
[2022-03-13 10:56] VITALS: TEMP 98.1
[2022-03-13 11:08] VITALS: BP 145/89; O2SAT 94
--- NOTE | 2022-03-15 08:32 | EKG ---
Test Date: 2022-03-13 Test Time: 06:22:27 Primer Inserting Machine Operator: MEASUREMENT RESULTS: Intervals: Rate: 85 MI: 172 QRSD: 92 QT: 406 QTc: 483 [place]: P: 92 MI: 172 QRS: 258 T: 112 INTERPRETIVE STATEMENTS: Poor data quality, interpretation may be adversely affected Suspect arm lead reversal, interpretation assumes no reversal Sinus rhythm with occasional premature ventricular complexes Low voltage QRS Anterolateral infarct, age undetermined Abnormal ECG Compared to ECG 01/03/2018 13:17:41 Ventricular premature complex(es) now present Sinus tachycardia no longer present Myocardial infarct finding still present Electronically Signed On 03-15-22 08:29:28 INSURANCE ACCOUNT SPECIALIST by Palomo Savage
--- NOTE | 2022-03-15 12:16 | EKG ---
Test Date: 2022-03-13 Test Time: 06:23:08 Avionics Electronics Technician: MEASUREMENT RESULTS: Intervals: Rate: 83 TX: 182 QRSD: 92 QT: 408 QTc: 479 [place]: P: 86 TX: 182 QRS: -82 T: 103 INTERPRETIVE STATEMENTS: Normal sinus rhythm Left anterior fascicular block Anterolateral infarct, age undetermined Abnormal ECG Compared to ECG 03/13/2022 06:22:27 Left anterior fascicular block now present Ventricular premature complex(es) no longer present Myocardial infarct finding still present Electronically Signed On 03-15-22 12:12:59 DIRECTOR OF PSYCHOLOGY by Lukas Perez
== END 2022-03-13 10:46 | disposition home or self-care (01) ==
LOC: ER 05:55
DX: R07.89 Other chest pain (principal); E87.70 Fluid overload, unspecified; I12.0 Hypertensive chronic kidney disease with stage 5 chronic kidney disease or end stage renal disease; N18.6 End stage renal disease; Z99.2 Dependence on renal dialysis; F17.210 Nicotine dependence, cigarettes, uncomplicated
CPT/HCPCS: 36415; 71045; 80048; 80076; 83735; 83880; 84484; 85025; 85610; 93005; 99284

== ENCOUNTER 2022-05-15 18:15 | Inpatient (IN) | payer OTHER ==
--- OUTSIDE RECORDS SUMMARY | 2022-05-15 18:29 | XMS REPORT | Continuity of Care Document ---
:1955 Author Organization Formerly [facility] t Address [address] [place] [address] Care Team Providers Name Role Phone JAYY HORVATH JR Primary Care Physician Unavailable YAZAN BARRY Attending Clinician Unavailable Radha Narvaez Attending Clinician Unavailable Paulette Hemphill Attending Clinician Unavailable Wayne Kiser Attending Clinician Unavailable Kandi CREWS, Michelle Attending Clinician Unavailable Gabrielle CREWS, Jacklyn Delgado Attending Clinician Unavailable Nesha Irizarry Attending Clinician Unavailable JAVIER KIM Attending Clinician Unavailable Doctor Unassigned, Manti Attending Clinician Unavailable Matti NGUYEN, Kayla Blank Attending Clinician [phone] KAYLA CHINO Attending Clinician Unavailable Pema Fowler Attending Clinician Unavailable SIDRA CLARKE Attending Clinician Unavailable Funmilayo Peralta MD Attending Clinician Rain NGUYEN, Sidra Attending Clinician Rosie NGUYEN, Jarrell Attending Clinician Magalys NGUYEN, Ji Cordero Attending Clinician DIYA ROLON Attending Clinician Unavailable Diya Rolon MD Attending Clinician Justus Oconnor Attending Clinician JUSTUS KIRKPATRICK Attending Clinician Unavailable ERNESTINA VELARDE Attending Clinician Unavailable aKlen Hurtado MD Attending Clinician Chandra Calderon MD Attending Clinician [phone] Sara Reynaga MD Attending Clinician CHANDRA CALDERON Attending Clinician Unavailable KALEN HURTADO Attending Clinician Unavailable JASMIN JOVEL Attending Clinician Unavailable ANDREW GRULLON Attending Clinician Unavailable ARIAN MANUEL Attending Clinician Unavailable ASHIA WORKMAN Attending Clinician Unavailable PETER FAGAN Attending Clinician Unavailable DENI RUBI Attending Clinician Unavailable NICO GOLDMAN Attending Clinician Unavailable TOBY CAO Attending Clinician Unavailable YAZAN BARRY Admitting Clinician Unavailable FUNMILAYO PERALTA Admitting Clinician Unavailable DIYA ROLON Admitting Clinician Unavailable JUSTUS KIRKPATRICK Admitting Clinician Unavailable KALEN HURTADO Admitting Clinician Unavailable JASMIN JOVEL Admitting Clinician Unavailable ANDREW GRULLON Admitting Clinician Unavailable FRANCES MANUELILOLA RJoseph Admitting Clinician Unavailable PETER FAGAN Admitting Clinician Unavailable DENI RUBI Admitting Clinician Unavailable NICO GOLDMAN Admitting Clinician Unavailable TOBY CAO Admitting Clinician Unavailable Payers Payer Name Policy Type Policy Number Effective Date Expiration Date Sushma orona MEDICARE A B [id number] 2016 00:00:00 [employer] CHOICE [id number] 2021 00:00:00 [employer]ED [employer] [id number] 2021 (MEDICARE 00:00:00 REPLACEMENT HMO) MEDICARE PART A \\T\\ [id number] B - MEDICARE [facility]-MEDICAID - [id number] MEDICAID [employer] [id number] HMO - HUMANA [id number] 2021 2021 HEALTHCARE 00:00:00 00:00:00 Problems Condition Condition Condition Status Onset Resolution Last Treating Co mments Source Name Details Category Date Date Treatment Clinician Date Chest pain Chest pain Disease [facility] [place] Anemia Anemia Disease Active [facility] [place] Mediastina Mediastina Disease Active [facility]22 [facility] lymphadeno lymphadeno 00:00: Nh dical nati nati 00 [place] Chronic Chronic Disease Active [facility] bronchitis bronchitis 3-12 [facility] 00:[facility]: Medical 00 [place] Left arm Left arm Disease [facility] 2017[facility] 2[facility] 00 [place] Arm Arm Disease Active 2017-05 [facility] swelling swelling 2-21 Colleg e 00:00: 00 Medicin e PAD PAD Disease Active 2017-[address] [facility] [address] (periphera (periphera 1-13 [facility] l artery l artery 00:00: Medica l disease) disease) 00 Center Essential Essential Disease Active 2017-05 Last [place] [facility] hypertensi hypertensi 0-17 [facility] on on 00:00: t & Plan: of Formattin Medicin g of this e note might be different from the original. Elevated reading today, advised follow up with charting Excessive Excessive Disease Active 2017-05 Last [place] [facility] daytime daytime 0-17 [facility] sleepiness sleepiness 00:00: t & Plan: 00 Formattin Medicin g of this e note might be different from the original. 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 00:00: Medica l of of 00 [place] axillary axillary lymph lymph nodes nodes Vascular Vascular Disease [facility] catheter catheter 01-07 [facility] infection infection 00:00: Medi dimitry 00 [place] End stage End stage Disease Active [facility] chronic chronic 01-06 [facility] kidney kidney 00:00: Medical disease disease 00 Center HTN HTN Disease Active [facility] (hypertens (hypertens 8-31 [facility] ion) ion) 00:00: Medical 00 [place] TIMA TIMA Disease Active Overview: [facility]ob[facility]i [facility] ve sleep 00:00: g of this of apnea) apnea) 00 note Medicin might be e different from the original. 18:CM S apnea hypopnea index ([facility] AHI) of 81.1 events per hour of [...] bacteremia 0-27 [facility] 00:00: Medical 00 [place] MSSA MSSA Disease Active 2016-[address] [facility] [address] (methicill (methicill 0-27 [facility] in in 00:00: Medical susceptibl susceptibl 00 Ce nter e e Staphyloco Staphyloco ccus ccus aureus) aureus) infection infection Metabolic Metabolic Disease Active 2016-[address] [facility] [address] acidosis acidosis 0-24 [facility] 00 [place] CLABSI CLABSI Disease Active 2016-[address] [facility] [address] (central (central 0-23 [facility] line-assoc line-assoc 00:00: Me dical iated iated 00 Center bloodstrea bloodstrea m m infection) infection) Sepsis Sepsis Disease Active 2016-[address] [facility] 0[facility]20 [facility] 00:[facility]: Medical 00 [place] Peripheral Peripheral Disease Active [facility] [...] lymphoma lymphoma 3-08 [facility] 00[facility] 00 [place] Disease Active [facility] catheter catheter 3-[address] [...] S t 1-12 [facility] 00:[facility]: [facility] 00 [place] ALL (acute ALL (acute Disease Active [facility] lymphoblas lymphoblas 1-12 [facility] tic tic 00:00: Medical leukemia) leukemia) 00 Cent er Chemothera Chemothera Disease Active 2015-05 [facility] py induced py induced 2-27 Co llege neutropeni neutropeni 00:00: of a (HCCode) a (HCCode) 00 Me dicin e Peripheral Peripheral Disease Active 2015-05 Overview : [facility] T cell T cell 2-27 [facility] [place] lymphoma lymphoma 00:00: g of this of [...] [facility]16 [facility] 00[facility] Medical [facility] Center Hypertensi Hypertensi Disease Active 2015-05 C [...] [facility] 00:[facility] Medical 00 Center Dyslipidem Dyslipidem Disease Active U [facility]marie ia ia 8-19 ity of 00:00: [place] [id number] Medical Branch ESRD (end ESRD (end Disease Active Uni vers stage stage 6-29 ity of renal renal 00:00: [place] disease) disease) 00 Medica l Branch CKD CKD Disease Active Univers (chronic (chronic 6-23 ity of kidney kidney 00:00: [place] disease), disease), 00 Medi dimitry stage 5 stage 5 Branch Submandibu Submandibu Disease Active U rose[facility]ie lar gland lar gland 6-23 ity of mass mass 00:00: [place] [facility] Acute Acute Disease Active Univers renal renal 6-22 ity of failure failure 00:00: [place] [facility] Essential Essential Disease Active Uni vers hypertensi hypertensi - it y of on on 00:00: [place] [facility] Branch Atypical Atypical Disease Active Unive rs chest pain chest pain 10-28 it y of 00:00: [address] Allergies, Adverse Reactions, Alerts Allergy Allergy Status Severity Reaction(s) Onset Inactive Treating Comm ents Source Name Type Date Date Clinician NO KNOWN Drug Active Univers ALLERGIE Class ity of S [facility] NO KNOWN Allergy Active [facility] Family History Family Member Diagnosis Comments Start Date Stop Date Source Natural brother Kidney disease [facility] Natural daughter No Known Problem [facility] Natural father Hypertension [facility] Natural mother Hypertension [facility] Paternal grandfather Cancer [facility] Natural sister Breast cancer [facility] Natural son No Known Problem [facility] Social History Social Habit Start Date Stop Date Quantity Comments Source History of tobacco Snuff User [facility] use [facility] History SDME University o f Alcohol Frequency [facility] History [facility] University o f Alcohol Std Drinks [facility] History [facility] University o f Alcohol Binge [facility] Alcohol intake 2021-09-01 2021-09-[address] Andi es 00:00:00 00:00:00 non-drinker of Medical Ce nter alcohol (finding) Tobacco Comment 2021-09-01 2021-09-01[facility] 00:00:00 00:00:00 [facility] Exposure to 2021-08-17 2021-08-27 Not sure University SARS-CoV-2 (event) 00:00:00 07:01:00 [facility] Tobacco use and 2020-10-02 2020-10-[address] [facility] exposure 00:00:00 00:00:00 [facility] Alcohol Comment 2016-02-11 2016-02-11 Sober for last Unive rsity of 00:00:00 00:00:00 year [facility] Cigarettes smoked 2015-12-26 2015-12-26 Univers ity of current (pack per 00:00:00 00:00:00 [facility] ) - Reported Branch Cigarette 2015-12-26 2015-12-26 University of pack-years 00:00:00 00:00:00 [facility] Sex [birth year] [facility] Ayleen kes 00:00:00 00:00:00 Medical Center Smoking Status Start Date Stop Date Source Former smoker 2020-10-02 00:00:00 2020-10-02 00:00:00 [facility] Current every day 2018-06-01 00:00:00 [facility] smoker Medicine Medications Ordered Filled Start Stop Current Ordering Indication Dosage Frequency Signature Comments Components Source Medication Medication Date Date Medication? Clinician (SIG) Name Name omega-3 Yes Take by [facility] fatty 4-26 mouth. [facility] acids-fish 11:12: Medical oil 12 Center 300-1,000 mg Cap iron-multiv 0 Yes 1{tbl} QD Take [address] itamins-min 4-26 tablet by Andi es erals 11:12: mouth Medical (THERAGRAN- 12 daily. Center ) 9 mg iron-400 mcg Tab tablet omega-3 Yes Take by [facility] fatty 4-26 mouth. [facility] acids-fish 11:12: Medical oil 12 Center 300-1,000 mg Cap iron-multiv 2021-0 Yes 1{tbl} QD Take [address] itamins-min 4-26 tablet by Andi es erals 11:12: mouth Medical (THERAGRAN- 12 daily. Center M) 9 mg iron-400 mcg Tab tablet omega-3 0 Yes Take by [facility] fatty 4-26 mouth. [facility] acids-fish 11:12: Medical oil 12 Center 300-1,000 mg Cap iron-multiv 2021-0 Yes 1{tbl} QD Take [address] itamins-min 4-26 tablet by Andi es erals 11:12: mouth Medical (THERAGRAN- 12 daily. Center ) 9 mg iron-400 mcg Tab tablet lovastatin 0 Yes 20mg QD Take [address] (MEVACOR) 4-26 by mouth [facility] 20 MG 11:09: nightly. Medical tablet 48 Center terazosin 0 Yes 5mg Q.5D Take [address] [facility] (HYTRIN) 5 4-26 by mouth 2 Andi es MG capsule 11:09: (two) Medica l 48 times Center daily . hydrALAZINE 2022-0 Yes 50mg Q.5D Take [address] (APRESOLINE 4-26 by mouth 2 [facility] kes ) 50 MG 11:09: (two) Medical tablet 48 times Center daily . sevelamer 2022-0 Yes 800mg Take [address] (RENVELA) 4-26 mg by [facility] 800 mg 11:09: mouth 3 Medical tablet 48 (three) Center times daily with meals. metoprolol 2021-0 Yes 100mg QD Take [address] (TOPROL-XL) 4-26 mg by [facility] 100 MG 24 11:09: mouth Medical hr tablet 48 daily. Center NIFEdipine 2021-0 Yes 90mg QD Take [address] (ADALAT CC) 4-26 by mouth Luke s 90 MG 24 hr 11:09: daily. Medi dimitry tablet 48 Center fluticasone 2021-0 Yes Inhale by [facility] /umeclidin/ 4-26 mouth via Andi es vilanter 11:09: inhaler. Medic al (TRELEGY 48 Center ELLIPTA INHL) lovastatin 2021-0 Yes 20mg QD Take [address] (MEVACOR) 4-26 by mouth [facility] 20 MG 11:09: nightly. Medical tablet 48 [place] terazosin 2021-0 Yes 5mg Q.5D Take [address] [facility] (HYTRIN) 5 4-26 by mouth 2 Andi es MG capsule 11:09: (two) Medica l 48 times Center daily . hydrALAZINE 2021-0 Yes 50mg Q.5D Take [address] (APRESOLINE 4-26 by mouth 2 [facility] kes ) 50 MG 11:09: (two) Medical tablet 48 times Center daily . sevelamer 2021-0 Yes 800mg Take [address] (RENVELA) 4-26 mg by [facility] 800 mg 11:09: mouth 3 Medical tablet 48 (three) Center times daily with meals. metoprolol 2022-0 Yes 100mg QD Take [address] (TOPROL-XL) 4-26 mg by [facility] 100 MG 24 11:09: mouth Medical hr tablet 48 daily. [place] NIFEdipine 2-0 Yes 90mg QD Take [address] (ADALAT CC) 4-26 by mouth Luke s 90 MG 24 hr 11:09: daily. Medi dimitry tablet 48 Center fluticasone 2021-0 Yes Inhale by [facility] /umeclidin/ 4-26 mouth via Andi es vilanter 11:09: inhaler. Medic al (TRELEGY 48 Center ELLIPTA INHL) lovastatin 2021-0 Yes 20mg QD Take [address] (MEVACOR) 4-26 by mouth [facility] 20 MG 11:09: nightly. Medical tablet 48 Center terazosin 2021-0 Yes 5mg Q.5D Take [address] (HYTRIN) 5 4-26 by mouth 2 Andi es MG capsule 11:09: (two) Medica l 48 times Center daily . hydrALAZINE 2021-0 Yes 50mg Q.5D Take [address] [facility] (APRESOLINE 4-26 by mouth 2 A[facility]en kes ) 50 MG 11:09: (two) Medical tablet 48 times Center daily . sevelamer 2021-0 Yes 800mg Take [address] (RENVELA) 4-26 mg by [facility] 800 mg 11:09: mouth 3 Medical tablet 48 (three) Center times daily with meals. metoprolol 2021-0 Yes 100mg QD Take [address] (TOPROL-XL) 4-26 mg by [facility] 100 MG 24 11:09: mouth Medical hr tablet 48 daily. Center NIFEdipine 2021-0 Yes 90mg QD Take [address] (ADALAT CC) 4-26 by mouth Luke s 90 MG 24 hr 11:09: daily. Medi dimitry tablet 48 Center fluticasone 2021-0 Yes Inhale by [facility] /umeclidin/ 4-26 mouth via Andi es vilanter 11:09: inhaler. Medic al (TRELEGY 48 Center ELLIPTA INHL) pantoprazol 2022-0 2022- No 40mg Q.5D Take [address] [facility] e 4-23 05-23 tablet (40 [facility] (PROTONIX) 00:00: 23:59 mg total) M edical 40 MG 00 :00 by mouth 2 Center tablet (two) times daily for 30 days. pantoprazol 2022-0 2022- No 40mg Q.5D Take [address] [facility] e 4-23 05-23 tablet (40 [facility] (PROTONIX) 00:00: 23:59 mg total) M edical 40 MG 00 :00 by mouth 2 Center tablet (two) times daily for 30 days. pantoprazol 202- No 40mg Q.5D Take 1 [...] Rang e, Dosing and Testing: &nbs p;FOR [place], [facility], AND [facility] ONLY - aPTT < 35: & nbsp;Bolus [...] 2021- No 1000mg 1,000 mg, Univers en 2 02-05 Oral, ity of (TYLENOL) 23:00: 22:06 [...] times Medical daily. Branch methocarbam 2022-0 Yes [id number] 500mg Take 1 Univers oL 2-05 tablet by ity of (ROBAXIN) 00:00: mouth 3 [place] 500 mg 00 (three) Medical tablet times Branch daily as needed for Pain (scale 4-6). methocarbam 2021-0 Yes [id number] 500mg Take 1 Univers oL 2-05 tablet by ity of (ROBAXIN) 00:00: mouth 3 [place] 500 mg 00 (three) Medical tablet times Branch daily as needed for Pain (scale 4-6). methocarbam 2021-0 Yes [id number] 500mg Take 1 Univers oL 2-05 tablet by ity of (ROBAXIN) 00:00: mouth 3 [place] 500 mg 00 (three) Medical tablet times Branch daily as needed for Pain (scale 4-6). methocarbam 2021-0 Yes [id number] 500mg Take 1 Univers oL 2-05 tablet by ity of (ROBAXIN) 00:00: mouth 3 [place] 500 mg 00 (three) Medical tablet times Branch daily as needed for Pain (scale 4-6). methocarbam 0 Yes [id number] 500mg Take 1 Univers oL 2-05 tablet by ity of (ROBAXIN) 00:00: mouth 3 [place] 500 mg 00 (three) Medical tablet times Branch daily as needed for Pain (scale 4-6). terazosin 0 Yes [id number] 5mg Take 5 mg [facility] (HYTRIN) 5 5-13 9108 by mouth Colle ge MG capsule 15:58: two times of 39 daily. Medicin e [place]-3 Yes [id number] Take by [facility] Fatty Acids 5-13 9108 mouth [place] (FISH OIL) 15:58: daily. of 1200 MG 39 Reported Medicin CPDR on e 07/14/2016 tramadol 2020-0 Yes [id number] 50mg Take 50 mg [facility] (ULTRAM) 50 5-13 by mouth Suly ege MG tablet 15:58: every 8 of 39 hours as Medicin needed for e Pain. aspirin 325 2020-0 Yes [id number] 650mg Take 650 [facility] mg tablet 5-13 mg by College 15:58: mouth of 39 every 6 Medicin hours as e needed for Pain. Sevelamer 2020-0 Yes [id number] 800mg Take 800 [facility] Carbonate 5-13 mg by [place] 800 MG TABS 15:58: mouth of 39 daily. Medicin e terazosin Yes [id number] 5mg Take 5 mg [facility] (HYTRIN) 5 5-13 9108 by mouth Colle ge MG capsule 15:58: two times of 39 daily. Medicin e [place]-3 Yes [id number] Take by [facility] Fatty Acids 5-13 9108 mouth College (FISH OIL) 15:58: daily. of 1200 MG 39 Reported Medicin CPDR on e 07/14/2016 tramadol 0 Yes [id number] 50mg Take 50 mg [facility] (ULTRAM) 50 5-13 by mouth Suly ege MG tablet 15:58: every 8 of 39 hours as Medicin needed for e Pain. aspirin 325 Yes [id number] 650mg Take 650 [facility] mg tablet 5-13 mg by College 15:58: mouth of 39 every 6 Medicin hours as e needed for Pain. Sevelamer Yes [id number] 800mg Take 800 [facility] Carbonate 5-13 mg by [place] 800 MG TABS 15:58: mouth of 39 daily. Medicin e terazosin Yes [id number] 5mg Take 5 mg [facility] (HYTRIN) 5 5-10 9108 by mouth Colle ge MG capsule 14:52: two times of 18 daily. Medicin e [place]-3 Yes [id number] Take by [facility] Fatty Acids 5-10 9108 mouth [place] (FISH OIL) 14:52: daily. of 1200 MG 18 Reported Medicin CPDR on e 07/14/2016 tramadol 0 Yes [id number] 50mg Take 50 mg [facility] (ULTRAM) 50 5-10 by mouth Suly ege MG tablet 14:52: every 8 of 18 hours as Medicin needed for e Pain. aspirin 325 Yes [id number] 650mg Take 650 [facility] mg tablet 5-10 mg by College 14:52: mouth of 18 every 6 Medicin hours as e needed for Pain. Sevelamer 0 Yes [id number] 800mg Take 800 [facility] Carbonate 5-10 mg by [place] 800 MG TABS 14:52: mouth of 18 daily. Medicin e Fluticasone 0 Yes [id number] Inhale 1 [facility] -Umeclidin- 5-10 Inhalation Co llege [place] 00:00: s by mouth of 100-62.5-25 00 daily. Medici n MCG/INH e AEPB Fluticasone 2020-0 Yes [id number] Inhale 1 [facility] -Umeclidin- 5-10 Inhalation Co [facility] [place] 00:00: s by mouth of 100-62.5-25 00 daily. Medici n MCG/INH e AEPB folic acid 2020-0 Yes 800ug Take 2 [...] of tablet 00 daily. Medicin e terazosin 2020-0 Yes [id number] 5mg Take 5 mg [facility] (HYTRIN) 5 3-17 9108 by mouth Colle ge MG capsule 20:16: two times of 33 daily. Medicin e [place]-3 2020-0 Yes [id number] Take by [facility] Fatty Acids 3-17 9108 mouth College (FISH OIL) 20:16: daily. of 1200 MG 33 Reported Medicin CPDR on e 07/14/2016 tramadol 2021-0 Yes [id number] 50mg Take 50 mg [facility] (ULTRAM) 50 3-17 by mouth Suly ege MG tablet 20:16: every 8 of 33 hours as Medicin needed for e Pain. aspirin 325 2020-0 Yes [id number] 650mg Take 650 [facility] mg tablet 3-17 mg by College 20:16: mouth of 33 every 6 Medicin hours as e needed for Pain. Sevelamer 0 Yes [id number] 800mg Take 800 [facility] Carbonate 3-17 mg by [place] 800 MG TABS 20:16: mouth of 33 daily. Medicin e terazosin Yes [id number] 5mg Take 5 mg [facility] (HYTRIN) 5 3-17 9108 by mouth Colle ge MG capsule 20:16: two times of 33 daily. Medicin e [place]-3 Yes [id number] Take by [facility] Fatty Acids 3-17 9108 mouth [place] (FISH OIL) 20:16: daily. of 1200 MG 33 Reported Medicin CPDR on e 07/14/2016 tramadol 2020-0 Yes [id number] 50mg Take 50 mg [facility] (ULTRAM) 50 3-17 by mouth Suly ege MG tablet 20:16: every 8 of 33 hours as Medicin needed for e Pain. aspirin 325 0 Yes [id number] 650mg Take 650 [facility] mg tablet 3-17 mg by [place] 20:16: mouth of 33 every 6 Medicin hours as e needed for Pain. Sevelamer Yes [id number] 800mg Take 800 [facility] Carbonate 3-17 mg by [place] 800 MG TABS 20:16: mouth of 33 daily. Medicin e lovastatin 2020- No [id number] 20mg Take 20 mg [facility] (MEVACOR) 06-12 9108 by mouth Colle ge 20 MG 20:42: 00:00 every of tablet 28 :00 evening. Medicin e metoprolol 2020- No [id number] 50mg Take 50 mg [facility] (TOPROL-XL) 06-12- by mouth Col lege 25 MG XL 20:42: 00:00 two times of tablet 28 :00 daily. Medicin e hydrALAZINE 2020- No [id number] 100mg Take 100 [facility] (APRESOLINE 06-12 9108 mg by Emmanuelg e ) 25 MG 20:38: 00:00 mouth four of tablet 12 :00 times Medicin daily. e terazosin 0 Yes [id number] 5mg Take 5 mg [facility] (HYTRIN) 5 06-12 by mouth Colle ge MG capsule 19:59: two times of 08 daily. Medicin e [place]-3 2020-0 Yes [id number] Take by [facility] Fatty Acids 06-12 mouth [place] (FISH OIL) 19:59: daily. of 1200 MG 08 Reported Medicin CPDR on e 07/14/2016 tramadol 2020-0 Yes [id number] 50mg Take 50 mg [facility] (ULTRAM) 50 - by mouth Suly ege MG tablet 19:59: every 8 of 08 hours as Medicin needed for e Pain. aspirin 325 2020-0 Yes [id number] 650mg Take 650 [facility] mg tablet 2-04 mg by [place] 19:59: mouth of 08 every 6 Medicin hours as e needed for Pain. Sevelamer 2020-0 Yes [id number] 800mg Take 800 [facility] Carbonate 2-04 mg by [place] 800 MG TABS 19:59: mouth of 08 daily. Medicin e hydrALAZINE Yes 100mg Take 1 [place] (APRESOLINE 2-04 Tablet by Col lege ) 100 MG 00:00: mouth 3 of tablet 00 times Medicin daily. e lovastatin 0 Yes [id number] 20mg Take 1 [facility] (MEVACOR) 2-9107 Tablet by Colle ge 20 MG 00:00: mouth of tablet 00 every Medicin evening. e metoprolol 2020-0 Yes [id number] 50mg Take 2 [facility] (TOPROL-XL) 2-04 Tablets by Co llege 25 MG XL 00:00: mouth two of tablet 00 times Medicin daily. e hydrALAZINE 0 Yes 100mg Take 1 [place] (APRESOLINE 2-04 Tablet by Col lege ) 100 MG 00:00: mouth 3 of tablet 00 times Medicin daily. e lovastatin 2020-0 Yes [id number] 20mg Take 1 [facility] (MEVACOR) 2-08 Tablet by Colle ge 20 MG 00:00: mouth of tablet 00 every Medicin evening. e metoprolol 2020-0 Yes [id number] 50mg Take 2 [facility] (TOPROL-XL) 2-04 Tablets by Co llege 25 MG XL 00:00: mouth two of tablet 00 times Medicin daily. e hydrALAZINE 2020-0 Yes 100mg Take 1 [place] (APRESOLINE 2-04 Tablet by Col lege ) 100 MG 00:00: mouth 3 of tablet 00 times Medicin daily. e lovastatin 2020-0 Yes [id number] 20mg Take 1 [facility] (MEVACOR) 2-04 9108 Tablet by Colle ge 20 MG 00:00: mouth of tablet 00 every Medicin evening. e metoprolol 2020-0 Yes [id number] 50mg Take 2 [facility] (TOPROL-XL) 2-04 Tablets by Co llege 25 MG XL 00:00: mouth two of tablet 00 times Medicin daily. e hydrALAZINE 0 Yes 100mg Take 1 [place] (APRESOLINE 2-04 Tablet by Col lege ) 100 MG 00:00: mouth 3 of tablet 00 times Medicin daily. e lovastatin 0 Yes [id number] 20mg Take 1 [facility] (MEVACOR) 2-04 9108 Tablet by Colle ge 20 MG 00:00: mouth of tablet 00 every Medicin evening. e metoprolol 2020-0 Yes [id number] 50mg Take 2 [facility] (TOPROL-XL) 2-04 Tablets by Co llege 25 MG XL 00:00: mouth two of tablet 00 times Medicin daily. e hydrALAZINE 0 Yes 100mg Take 1 [place] (APRESOLINE 2-04 Tablet by Col lege ) 100 MG 00:00: mouth 3 of tablet 00 times Medicin daily. e lovastatin 0 Yes [id number] 20mg Take 1 [facility] (MEVACOR) 2-04 9108 Tablet by Colle ge 20 MG 00:00: mouth of tablet 00 every Medicin evening. e metoprolol 2020-0 Yes [id number] 50mg Take 2 [facility] (TOPROL-XL) 2-04 Tablets by Co llege 25 MG XL 00:00: mouth two of tablet 00 times Medicin daily. e lovastatin 2019- Yes [id number] 20mg Take 20 mg [facility] (MEVACOR) 1-18 9108 by mouth Colleg e 20 MG 20:52: every of tablet 44 evening. Medicin e hydrALAZINE 2019-05 Yes [id number] 100mg Take 100 [facility] (APRESOLINE 05-26 9108 mg by [place] ) 25 MG 20:52: mouth four of tablet 44 times Medicin daily. e terazosin 2019-05 Yes [id number] 5mg Take 5 mg [facility] (HYTRIN) 5 05-2608 by mouth Colle ge MG capsule 20:52: two times of 44 daily. Medicin e [place]-3 2019-05 Yes [id number] Take by [facility] Fatty Acids 05-26 mouth College (FISH OIL) 20:52: daily. of 1200 MG 44 Reported Medicin CPDR on e 07/14/2016 tramadol 2019-05 Yes [id number] 50mg Take 50 mg [facility] (ULTRAM) 50 -18 by mouth Suly ege MG tablet 20:52: every 8 of 44 hours as Medicin needed for e Pain. metoprolol 2019-05 Yes [id number] 50mg Take 50 mg [facility] (TOPROL-XL) 18 by mouth Suly ege 25 MG XL 20:52: two times of tablet 44 daily. Medicin e aspirin 325 2019-05 Yes [id number] 650mg Take 650 [facility] mg tablet 1-18 mg by [place] 20:52: mouth of 44 every 6 Medicin hours as e needed for Pain. Sevelamer 2019-05 Yes [id number] 800mg Take 800 [facility] Carbonate 1-18 mg by [place] 800 MG TABS 20:52: mouth of 44 daily. Medicin e lovastatin 2019-05 Yes [id number] 20mg Take 20 mg [facility] (MEVACOR) 05-13 by mouth Colleg e 20 MG 19:35: every of tablet 29 evening. Medicin e hydrALAZINE 2019-05 Yes [id number] 100mg Take 100 [facility] (APRESOLINE 05-13 9108 mg by [place] ) 25 MG 19:35: mouth four of tablet 29 times Medicin daily. e terazosin 2019-05 Yes [id number] 5mg Take 5 mg [facility] (HYTRIN) 5 05-1308 by mouth Colle ge MG capsule 19:35: two times of 29 daily. Medicin e [place]-3 2019-05 Yes [id number] Take by [facility] Fatty Acids 05-13 mouth [place] (FISH OIL) 19:35: daily. of 1200 MG 29 Reported Medicin CPDR on e 07/14/2016 tramadol 2020-1 Yes [id number] 50mg Take 50 mg [facility] (ULTRAM) 50 1-05 by mouth Suly ege MG tablet 19:35: every 8 of 29 hours as Medicin needed for e Pain. metoprolol 2020-1 Yes [id number] 50mg Take 50 mg [facility] (TOPROL-XL) 1-05 by mouth [place] 25 MG XL 19:35: two times of tablet 29 daily. Medicin e aspirin 325 2020-1 Yes [id number] 650mg Take 650 [facility] mg tablet 1-05 mg by [place] 19:35: mouth of 29 every 6 Medicin hours as e needed for Pain. Sevelamer 2020-1 Yes [id number] 800mg Take 800 [facility] Carbonate 1-05 mg by [place] 800 MG TABS 19:35: mouth of 29 daily. Medicin e tramadol 2020-0 Yes [id number] 50mg Take 50 mg [facility] (ULTRAM) 50 7-30 by mouth [facility] MG tablet 20:17: every 8 of 40 hours as Medicin needed for e Pain. metoprolol 2020-0 Yes [id number] 50mg Take 50 mg [facility] (TOPROL-XL) 7-30 by mouth [place] 25 MG XL 20:17: two times of tablet 40 daily. Medicin e aspirin 325 2020-0 Yes [id number] 650mg Take 650 [facility] mg tablet 7-30 mg by [place] 20:17: mouth of 40 every 6 Medicin hours as e needed for Pain. Sevelamer 2020-0 Yes [id number] 800mg Take 800 [facility] Carbonate 7-30 mg by [place] 800 MG TABS 20:17: mouth of 40 daily. Medicin e lovastatin 2020-0 Yes [id number] 20mg Take 20 mg [facility] (MEVACOR) 7-30 9108 by mouth Emmanuelg e 20 MG 20:17: every of tablet 40 evening. Medicin e hydrALAZINE 2020-0 Yes [id number] 100mg Take 100 [facility] (APRESOLINE 7-30 9108 mg by [place] ) 25 MG 20:17: mouth four of tablet 40 times Medicin daily. e terazosin 2020-0 Yes [id number] 5mg Take 5 mg [facility] (HYTRIN) 5 7-30 9108 by mouth Colle ge MG capsule 20:17: two times of 40 daily. Medicin e [place]-3 2020-0 Yes [id number] Take by [facility] Fatty Acids 12-05 mouth [place] (FISH OIL) 20:17: daily. of 1200 MG 40 Reported Medicin CPDR on e 07/14/2016 methylPREDN 2020-0 Yes [id number] 4mg Take 1 Tab [facility] ISolone 7-20 by mouth College (MEDROL 00:00: See Admin of DOSEPACK) 4 00 Instructio Me dicin MG tablet ns. e Fluticasone 2020-0 Yes [id number] Inhale 1 [facility] -Umeclidin- 7-20 Inhalation [facility] Vilant 00:00: s by mouth of 100-62.5-25 00 daily. Medici n MCG/INH e AEPB methylPREDN 2020-0 Yes [id number] 4mg Take 1 Tab [facility] ISolone 7-20 by mouth [place] (MEDROL 00:00: See Admin of DOSEPACK) 4 00 Instructio Me dicin MG tablet ns. e Fluticasone 2020-0 Yes [id number] Inhale 1 [facility] -Umeclidin- 7-20 Inhalation [facility] [place] 00:00: s by mouth of 100-62.5-25 00 daily. Medici n MCG/INH e AEPB methylPREDN 2020-0 Yes [id number] 4mg Take 1 Tab [facility] ISolone 7-20 by mouth [place] (MEDROL 00:00: See Admin of DOSEPACK) 4 00 Instructio Me dicin MG tablet ns. e Fluticasone 2020-0 Yes [id number] Inhale 1 [facility] -Umeclidin- 7-20 Inhalation [facility] [place] 00:00: s by mouth of 100-62.5-25 00 daily. Medici n MCG/INH e AEPB methylPREDN 2020-0 Yes [id number] 4mg Take 1 Tab [facility] ISolone 7-20 by mouth College (MEDROL 00:00: See Admin of DOSEPACK) 4 00 Instructio Me dicin MG tablet ns. e Fluticasone 2020-0 Yes [id number] Inhale 1 [facility] -Umeclidin- 7-20 Inhalation [facility] [place] 00:00: s by mouth of 100-62.5-25 00 daily. Medici n MCG/INH e AEPB methylPREDN 2020-0 Yes [id number] 4mg Take 1 Tab [facility] ISolone 7-20 by mouth [facility] (MEDROL 00:00: See Admin of DOSEPACK) 4 00 Instructio Me dicin MG tablet ns. e Fluticasone 2020-0 Yes [id number] Inhale 1 [facility] -Umeclidin- 7-20 Inhalation [facility] [place] 00:00: s by mouth of 100-62.5-25 00 daily. Medici n MCG/INH e AEPB methylPREDN 2020-0 Yes [id number] 4mg Take 1 Tab [facility] ISolone 7-20 by mouth [facility] (MEDROL 00:00: See Admin of DOSEPACK) 4 00 Instructio Me dicin MG tablet ns. e Fluticasone 2020-0 Yes [id number] Inhale 1 [facility] -Umeclidin- 7-20 Inhalation [facility] [place] 00:00: s by mouth of 100-62.5-25 00 daily. Medici n MCG/INH e AEPB methylPREDN 2020-0 Yes [id number] 4mg Take 1 Tab [facility] ISolone 7-20 by mouth [facility] (MEDROL 00:00: See Admin of DOSEPACK) 4 00 Instructio Me dicin MG tablet ns. e methylPREDN 2020-0 Yes [id number] 4mg Take 1 Tab [facility] ISolone 7-20 by mouth [facility] (MEDROL 00:00: See Admin of DOSEPACK) 4 00 Instructio Me dicin MG tablet ns. e methylPREDN 2020-0 Yes [id number] 4mg Take 1 Tab [facility] ISolone 7-20 by mouth [facility] (MEDROL 00:00: See Admin of DOSEPACK) 4 00 Instructio Me dicin MG tablet ns. e methylPREDN 2020-0 Yes [id number] 4mg Take 1 Tab [facility] ISolone 7-20 by mouth [facility] (MEDROL 00:00: See Admin of DOSEPACK) 4 00 Instructio Me dicin MG tablet ns. e Fluticasone 2020-0 Yes [id number] Inhale 1 [facility] -Umeclidin- 7-20 Inhalation [facility] [place] 00:00: s by mouth of 100-62.5-25 00 daily. Medici n MCG/INH e AEPB Fluticasone 2020- No [id number] Inhale 1 [facility] -Umeclidin- 7-20 05-10 Inhalation C [facility] [place] 00:00: 00:00 s by mouth of 100-62.5-25 00 :00 daily. Medici n MCG/INH e AEPB azithromyci 2020- No [id number] Take 2 [facility] n 7-20 07-26 Tabs by [place] (ZITHROMAX 00:00: 04:59 mouth of Z-BRITTANIE) 250 00 :00 daily for Medi sidney MG tablet 1 day, e THEN 1 Tab daily for 4 days. lovastatin 2020-0 Yes [id number] 20mg Take 20 mg [facility] (MEVACOR) 5-13 9108 by mouth Colleg e 20 MG 21:24: every of tablet 36 evening. Medicin e hydrALAZINE 2019-0 Yes [id number] 100mg Take 100 [facility] (APRESOLINE 5-13 9108 mg by [place] ) 25 MG 21:24: mouth four of tablet 36 times Medicin daily. e terazosin 2019-0 Yes [id number] 5mg Take 5 mg [facility] (HYTRIN) 5 5-13 9108 by mouth Colle ge MG capsule 21:24: two times of 36 daily. Medicin e [place]-3 2019-0 Yes [id number] Take by [facility] Fatty Acids 5-13 9108 mouth [place] (FISH OIL) 21:24: daily. of 1200 MG 36 Reported Medicin CPDR on e 07/14/2016 tramadol 2020-0 Yes [id number] 50mg Take 50 mg [facility] (ULTRAM) 50 5-13 by mouth [place] MG tablet 21:24: every 8 of 36 hours as Medicin needed for e Pain. metoprolol 2020-0 Yes [id number] 50mg Take 50 mg [facility] (TOPROL-XL) 5-13 by mouth [place] 25 MG XL 21:24: two times of tablet 36 daily. Medicin e aspirin 325 2020-0 Yes [id number] 650mg Take 650 [facility] mg tablet 5-13 mg by [place] 21:24: mouth of 36 every 6 Medicin hours as e needed for Pain. Sevelamer 2020-0 Yes [id number] 800mg Take 800 [facility] Carbonate 5-13 mg by [place] 800 MG TABS 21:24: mouth of 36 daily. Medicin e lovastatin 2020-0 Yes [id number] 20mg Take 20 mg [facility] (MEVACOR) 5-13 9108 by mouth Colleg e 20 MG 21:24: every of tablet 36 evening. Medicin e hydrALAZINE 2020-0 Yes [id number] 100mg Take 100 [facility] (APRESOLINE 5-13 9108 mg by [place] ) 25 MG 21:24: mouth four of tablet 36 times Medicin daily. e terazosin 2020-0 Yes [id number] 5mg Take 5 mg [facility] (HYTRIN) 5 5-13 9108 by mouth Colle ge MG capsule 21:24: two times of 36 daily. Medicin e [place]-3 2020-0 Yes [id number] Take by [facility] Fatty Acids 5-13 9108 mouth [place] (FISH OIL) 21:24: daily. of 1200 MG 36 Reported Medicin CPDR on e 07/14/2016 tramadol 2020-0 Yes [id number] 50mg Take 50 mg [facility] (ULTRAM) 50 5-13 by mouth [place] MG tablet 21:24: every 8 of 36 hours as Medicin needed for e Pain. metoprolol 2020-0 Yes [id number] 50mg Take 50 mg [facility] (TOPROL-XL) 5-13 by mouth [place] 25 MG XL 21:24: two times of tablet 36 daily. Medicin e aspirin 325 2020-0 Yes [id number] 650mg Take 650 [facility] mg tablet 5-13 mg by [place] 21:24: mouth of 36 every 6 Medicin hours as e needed for Pain. Sevelamer 2020-0 Yes [id number] 800mg Take 800 [facility] Carbonate 5-13 mg by [place] 800 MG TABS 21:24: mouth of 36 [...] 00:00: daily. of Medicin e Apixaban Yes [id number] 2.5mg Take 2.5 [facility] (ELIQUIS) 5-08 mg by [place] 2.5 MG TABS 00:00: mouth two o f 00 times Medicin daily. e NIFEdipine 2018- Yes [id number] 90mg Take 90 mg [facility] CR Osmotic 5-08 9108 by mouth Colle ge 60 MG TB24 00:00: daily. of Medicin e Apixaban Yes [id number] 2.5mg Take 2.5 [facility] (ELIQUIS) 5-08 mg by [facility] 2.5 MG TABS 00:00: mouth two o f 00 times Medicin daily. e NIFEdipine 2019- Yes [id number] 90mg Take 90 mg [facility] CR Osmotic 5-08 9108 by mouth Colle ge 60 MG TB24 00:00: daily. of Medicin e Apixaban Yes [id number] 2.5mg Take 2.5 [facility] (ELIQUIS) 5-08 mg by [facility] 2.5 MG TABS 00:00: mouth two o f 00 times Medicin daily. e NIFEdipine 2019- Yes [id number] 90mg Take 90 mg [facility] CR Osmotic 5-08 9108 by mouth Colle ge 60 MG TB24 00:00: daily. of Medicin e Apixaban Yes [id number] 2.5mg Take 2.5 [facility] (ELIQUIS) 5-08 mg by [facility] 2.5 MG TABS 00:00: mouth two o f 00 times Medicin daily. e NIFEdipine Yes [id number] 90mg Take 90 mg [facility] CR Osmotic 5-08 9108 by mouth Colle ge 60 MG TB24 00:00: daily. of Medicin e Apixaban Yes [id number] 2.5mg Take 2.5 [facility] (ELIQUIS) 5-08 mg by [place] 2.5 MG TABS 00:00: mouth two o f 00 times Medicin daily. e NIFEdipine Yes [id number] 90mg Take 90 mg [facility] CR Osmotic 5-08 9108 by mouth Colle ge 60 MG TB24 00:00: daily. of Medicin e Apixaban Yes [id number] 2.5mg Take 2.5 [facility] (ELIQUIS) 5-08 mg by [place] 2.5 MG TABS 00:00: mouth two o f 00 times Medicin daily. e NIFEdipine Yes [id number] 90mg Take 90 mg [facility] CR Osmotic 5-08 9108 by mouth Colle ge 60 MG TB24 00:00: daily. of Medicin e Apixaban Yes [id number] 2.5mg Take 2.5 [facility] (ELIQUIS) 5-08 mg by [place] 2.5 MG TABS 00:00: mouth two o f 00 times Medicin daily. e NIFEdipine Yes [id number] 90mg Take 90 mg [facility] CR Osmotic 5-08 9108 by mouth Colle ge 60 MG TB24 00:00: daily. of Medicin e Apixaban Yes [id number] 2.5mg Take 2.5 [facility] (ELIQUIS) 5-08 mg by [facility] 2.5 MG TABS 00:00: mouth two o f 00 times Medicin daily. e NIFEdipine Yes [id number] 90mg Take 90 mg [facility] CR Osmotic 5-08 9108 by mouth Colle ge 60 MG TB24 00:00: daily. of Medicin e Apixaban Yes [id number] 2.5mg Take 2.5 [facility] (ELIQUIS) 5-08 mg by [place] 2.5 MG TABS 00:00: mouth two o f 00 times Medicin daily. e NIFEdipine Yes [id number] 90mg Take 90 mg [facility] CR Osmotic 5-08 9108 by mouth Colle ge 60 MG TB24 00:00: daily. of Medicin e Apixaban Yes [id number] 2.5mg Take 2.5 [facility] (ELIQUIS) 5-08 mg by [place] 2.5 MG TABS 00:00: mouth two o f 00 times Medicin daily. e NIFEdipine Yes [id number] 90mg Take 90 mg [facility] CR Osmotic 5-08 9108 by mouth Colle ge 60 MG TB24 00:00: daily. of Medicin e Apixaban Yes [id number] 2.5mg Take 2.5 [facility] (ELIQUIS) 5-08 mg by [place] 2.5 MG TABS 00:00: mouth two o f 00 times Medicin daily. e NIFEdipine Yes [id number] 90mg Take 90 mg [facility] CR Osmotic 5-08 9108 by mouth Colle ge 60 MG TB24 00:00: daily. of Medicin e ELIQUIS 5 2021- No TAKE 1/[address] [facility] MG tablet 09-0923 TABLET(2.5 Andi es 00:00: 00:00 MG) BY Medical 00 :00 MOUTH Center TWICE DAILY ELIQUIS 5 2021- No TAKE 1/[address] [facility] MG tablet -23 TABLET(2.5 Andi es 00:00: 00:00 MG) BY Medical 00 :00 MOUTH Center TWICE DAILY ELIQUIS 5 2021- No TAKE 1/[address] [facility] MG tablet -08 10-23 TABLET(2.5 Andi es 00:00: 00:00 MG) BY Medical 00 :00 MOUTH Center TWICE DAILY sertraline 2017-05 Yes 12.5mg Take 0.5 [facility] (ZOLOFT) 25 2-19 Tabs by Colle ge MG tablet 00:00: mouth of 00 daily. Medicin Take half e tablet daily sertraline 2018-1 Yes 12.5mg Take 0.5 [facility] (ZOLOFT) [...] Medicin Take half e tablet daily metoprolol 2018-0 Yes [facility] (TOPROL-XL) 9-27 [facility] 100 MG XL 00:00: of tablet 00 Medicin e metoprolol 2018-0 Yes [facility] (TOPROL-XL) 9-27 [facility] 100 MG XL 00:00: of tablet 00 Medicin e metoprolol 2018-0 Yes [facility] (TOPROL-XL) 9-27 [facility] 100 MG XL 00:00: of tablet 00 Medicin e metoprolol 2018-0 Yes [facility] (TOPROL-XL) 9-27 [facility] 100 MG XL 00:00: of tablet 00 Medicin e metoprolol 2018-0 Yes [facility] (TOPROL-XL) 9-27 [facility] 100 MG XL 00:00: of tablet 00 Medicin e metoprolol 2018-0 1- No [facility] (TOPROL-XL) 9 02-04 [facility] 100 MG XL 00:00: 00:00 of tablet 00 :00 Medicin e NIFEdipine 2018-0 Yes [facility] (ADALAT CC) 8-21 College 90 MG CR 00:00: of tablet 00 Medicin e NIFEdipine 2018-0 Yes [facility] (ADALAT CC) 8-21 College 90 MG CR 00:00: of tablet 00 Medicin e NIFEdipine 2018-0 Yes [facility] (ADALAT CC) 8-21 College 90 MG CR 00:00: of tablet 00 Medicin e NIFEdipine 2018-0 Yes [facility] (ADALAT CC) 8-21 [facility] 90 MG CR 00:00: of tablet 00 Medicin e NIFEdipine 2018-0 Yes [facility] (ADALAT CC) 8-21 College 90 MG CR 00:00: of tablet 00 Medicin e NIFEdipine 2018-0 Yes [facility] (ADALAT CC) 8-21 College 90 MG CR 00:00: of tablet 00 Medicin e NIFEdipine 2018-0 Yes [facility] (ADALAT CC) 8-21 [facility] 90 MG CR 00:00: of tablet 00 Medicin e NIFEdipine 2018-0 Yes [facility] (ADALAT CC) 8-21 College 90 MG CR 00:00: of tablet 00 Medicin e NIFEdipine 2018-0 Yes [facility] (ADALAT CC) 8-21 College 90 MG CR 00:00: of tablet 00 Medicin e NIFEdipine 2018-0 Yes [facility] (ADALAT CC) 8-21 [facility] 90 MG CR 00:00: of tablet 00 Medicin e NIFEdipine 2018-0 Yes [facility] (ADALAT CC) 8-21 [facility] 90 MG CR 00:00: of tablet 00 Medicin e traMADol 2016-05 Yes 50mg Take [address] [facility] (ULTRAM) 50 0-27 tablet (50 [facility] k[facility] mg tablet 00:00: mg total) Med ical 00 by mouth Center every 6 (six) hours as needed for Pain (s/p pharangeal biospy). Max Daily Amount: 200 mg traMADol 2016-05 Yes 50mg Take [address] [facility] (ULTRAM) 50 0-27 tablet (50 [facility] mg tablet 00:00: mg total) Med ical 00 by mouth Center every 6 (six) hours as needed for Pain (s/p pharangeal biospy). Max Daily Amount: 200 mg traMADol 2016-05 Yes 50mg Take [address] [facility] (ULTRAM) 50 0-27 tablet (50 [facility] k[facility] mg tablet 00:00: mg total) Med ical 00 by mouth Center every 6 (six) hours as needed for Pain (s/p pharangeal biospy). Max Daily Amount: 200 mg terazosin 2015-05 Yes [id number] 4mg Take 2 [facility] (HYTRIN) 2 0-05 capsules ity o f mg capsule 00:00: by mouth [place] as 00 at Medical bedtime. [place] terazosin 2015-05 Yes [id number] 4mg Take 2 [facility] (HYTRIN) 2 0-05 capsules ity o f mg capsule 00:00: by mouth [place] as 00 at Medical bedtime. [place] terazosin 2015-05 Yes [id number] 4mg Take 2 [facility] (HYTRIN) 2 0-05 capsules ity o f mg capsule 00:00: by mouth [place] as 00 at Medical bedtime. [place] terazosin 2015-05 Yes [id number] 4mg Take 2 [facility] (HYTRIN) 2 0-05 capsules ity o f mg capsule 00:00: by mouth [place] as 00 at Medical bedtime. [place] terazosin 2015-05 Yes [id number] 4mg Take 2 [facility] (HYTRIN) 2 0-05 capsules ity o f mg capsule 00:00: by mouth [place] as 00 at Medical bedtime. [place] hydralAZINE Yes [id number] 50mg Take 50 mg [facility] (APRESOLINE 01-13 by mouth 4 it y of ) 25 mg 00:00: (four) [place] tablet 00 times Medical daily. Branch metoprolol 2015-0 Yes [id number] 25mg Take 25 mg [facility] succinate 9-07 by mouth 2 ity of XL (TOPROL 00:00: (two) [place] XL) 25 mg 00 times Medical 24 hr daily. Branch tablet lisinopril 2015-0 Yes [id number] 40mg Take 40 mg [facility] (PRINIVIL,Z 9-07 by mouth 2 it y of ESTRIL) 40 00:00: (two) [place] mg tablet 00 times Medical daily. Branch hydralAZINE 2015-0 Yes [id number] 50mg Take 50 mg [facility] (APRESOLINE 9-07 by mouth 4 it y of ) 25 mg 00:00: (four) [place] tablet 00 times Medical daily. Branch metoprolol 2015-0 Yes [id number] 25mg Take 25 mg [facility] succinate 9-07 by mouth 2 ity of XL (TOPROL 00:00: (two) [place] XL) 25 mg 00 times Medical 24 hr daily. Branch tablet lisinopril 2015-0 Yes [id number] 40mg Take 40 mg [facility] (PRINIVIL,Z 9-07 by mouth 2 it y of ESTRIL) 40 00:00: (two) [place] mg tablet 00 times Medical daily. Branch hydralAZINE 2015-0 Yes [id number] 50mg Take 50 mg [facility] (APRESOLINE 9-07 by mouth 4 it y of ) 25 mg 00:00: (four) [place] tablet 00 times Medical daily. Branch metoprolol 2015-0 Yes [id number] 25mg Take 25 mg [facility] succinate 9-07 by mouth 2 ity of XL (TOPROL 00:00: (two) [place] XL) 25 mg 00 times Medical 24 hr daily. Branch tablet lisinopril 2015-0 Yes [id number] 40mg Take 40 mg [facility] (PRINIVIL,Z 9-07 by mouth 2 it y of ESTRIL) 40 00:00: (two) [place] mg tablet 00 times Medical daily. Branch hydralAZINE 2015-0 Yes [id number] 50mg Take 50 mg [facility] (APRESOLINE 9-07 by mouth 4 it y of ) 25 mg 00:00: (four) [place] tablet 00 times Medical daily. Branch metoprolol 2015-0 Yes [id number] 25mg Take 25 mg [facility] succinate 9-07 by mouth 2 ity of XL (TOPROL 00:00: (two) [place] XL) 25 mg 00 times Medical 24 hr daily. Branch tablet lisinopril Yes [id number] 40mg Take 40 mg [facility] (PRINIVIL,Z 07 by mouth 2 it y of ESTRIL) 40 00:00: (two) [place] mg tablet 00 times Medical daily. Branch hydralAZINE Yes [id number] 50mg Take 50 mg [facility] (APRESOLINE 01-13 by mouth 4 it y of ) 25 mg 00:00: (four) [place] tablet 00 times Medical daily. Branch metoprolol Yes [id number] 25mg Take 25 mg [facility] succinate 01-13 by mouth 2 ity of XL (TOPROL 00:00: (two) [place] XL) 25 mg 00 times Medical 24 hr daily. Branch tablet lisinopril Yes [id number] 40mg Take 40 mg [facility] (PRINIVIL,Z 07 by mouth 2 it y of ESTRIL) 40 00:00: (two) [place] mg tablet 00 times Medical daily. Branch NIFEdipine Yes [id number] 30mg Take 1 U nivers ER 8-19 tablet by ity of (AFEDITAB 00:00: mouth [place] CR) 30 mg 00 daily. Medical SR tablet Branch lovastatin Yes [id number] 20mg Take 1 [facility] (ALTOPREV) 8-19 tablet by ity of 20 mg 24 hr 00:00: [place] tablet 00 bedtime. Medical Branch NIFEdipine Yes [id number] 30mg Take 1 U nivers ER 8-19 tablet by ity of (AFEDITAB 00:00: mouth [place] CR) 30 mg 00 daily. Medical SR tablet Branch lovastatin Yes [id number] 20mg Take 1 [facility] (ALTOPREV) 8-19 tablet by ity of 20 mg 24 hr 00:00: [place] tablet 00 bedtime. Medical Branch NIFEdipine Yes [id number] 30mg Take 1 U nivers ER 8-19 tablet by ity of (AFEDITAB 00:00: mouth [place] CR) 30 mg 00 daily. Medical SR tablet Branch lovastatin Yes [id number] 20mg Take 1 [facility] (ALTOPREV) 8-19 tablet by ity of 20 mg 24 hr 00:00: mouth [place] tablet 00 bedtime. Medical Branch NIFEdipine Yes [id number] 30mg Take 1 U nivers ER 8-19 tablet by ity of (AFEDITAB 00:00: mouth [place] CR) 30 mg 00 daily. Medical SR tablet Branch lovastatin Yes [id number] 20mg Take 1 [facility] (ALTOPREV) 8-19 tablet by ity of 20 mg 24 hr 00:00: mouth [place] tablet 00 bedtime. Medical Branch NIFEdipine Yes [id number] 30mg Take 1 U nivers ER 8-19 tablet by ity of (AFEDITAB 00:00: mouth [place] CR) 30 mg 00 daily. Medical SR tablet Branch lovastatin Yes [id number] 20mg Take 1 [facility] (ALTOPREV) 8-19 [...] 14:25:59 128 mm[Hg] [facility] sity of pressure [place] [facility] Diastolic blood 2021-08-27 14:25:59 85 mm[Hg] Unive rsity of pressure [place] [facility] Heart rate 2021-08-27 14:25:59 74 /min [facility] [place] [facility] Body temperature 2021-08-27 14:25:59 36.56 Chari [facility] [place] [facility] Respiratory rate 2021-08-27 14:25:59 18 /min [facility] [place] [facility] Oxygen saturation in 2021-08-27 14:25:59 100 /min [facility] of Arterial blood by [place] [employer] dimitry Pulse oximetry Branch Body height 2021-08-27 10:45:00 180.3 cm [facility] [place] [facility] Body weight 2021-08-27 10:45:00 95.709 kg [facility] [place] [facility] BMI 2021-08-27 10:45:00 29.43 kg/m2 [facility] [place] [facility] Systolic blood 2021-06-13 21:40:00 151 mm[Hg] [facility]iver sity of pressure [place] [facility] Diastolic blood 2021-06-13 21:40:00 93 mm[Hg] Unive rsity of pressure [place] [facility] Heart rate 2021-06-13 21:40:00 86 /min [facility] [place] [facility] Body temperature 2021-06-13 21:40:00 37.06 Chari [facility] [place] [facility] Respiratory rate 2021-06-13 21:40:00 18 /min [facility] [place] [facility] Body weight 2021-06-13 21:40:00 99.338 kg [facility] [place] [facility] BMI 2021-06-13 21:40:00 28.12 kg/m2 [facility] [place] [facility] Oxygen saturation in 2021-06-13 21:40:00 98 /min [facility] of Arterial blood by [employer] dimitry Pulse oximetry Branch Systolic blood 2020-09-18 20:56:00 156 mm[Hg] [facility] pressure Medicine Diastolic blood 2020-09-18 20:56:00 88 mm[Hg] [facility] pressure Medicine Heart rate 2020-09-18 20:56:00 93 /min [facility] Medicine Body height 2020-09-18 20:56:00 188 cm [facility] of Medicine Body weight 2020-09-18 20:56:00 94.076 kg [facility] of Medicine BMI 2020-09-18 20:56:00 26.63 kg/m2 [facility] Medicine Systolic blood 2020-09-15 19:49:00 132 mm[Hg] [facility] pressure Medicine Diastolic blood 2020-09-15 19:49:00 78 mm[Hg] [facility] Medicine Heart rate 2020-09-15 19:49:00 90 /min [facility] Medicine Body temperature 2020-09-15 19:49:00 36.72 Chari [facility] Body height 2020-09-15 19:49:00 188 cm [facility] of Medicine Body weight 2020-09-15 19:49:00 89.812 kg [facility] Medicine BMI 2020-09-15 19:49:00 25.42 kg/m2 [facility] Medicine Systolic blood 2020-09-09 18:57:00 120 mm[Hg] [facility] Medicine Diastolic blood 2020-09-09 18:57:00 73 mm[Hg] [facility] Medicine Heart rate 2020-09-09 18:57:00 89 /min [facility] Medicine Body temperature 2020-09-09 18:57:00 36.39 Chari [facility] Respiratory rate 2020-09-09 18:57:00 16 /min [facility] Body height 2020-09-09 18:57:00 188 cm [facility] Body weight 2020-09-09 18:57:00 91.627 kg [facility] BMI 2020-09-09 18:57:00 25.94 kg/m2 [facility] Systolic blood 2020-09-09 18:57:00 120 mm[Hg] [facility] pressure Medicine Diastolic blood 2020-09-09 18:57:00 73 mm[Hg] [facility] Medicine Heart rate 2020-09-09 18:57:00 89 /min [facility] Body temperature 2020-09-09 18:57:00 36.39 Chari [facility] Respiratory rate 2020-09-09 18:57:00 16 /min [facility] Body height 2020-09-09 18:57:00 188 cm [facility] Body weight 2020-09-09 18:57:00 91.627 kg [facility] BMI 2020-09-09 18:57:00 25.94 kg/m2 [facility] WEIGHT 2020-07-25 19:11:00 95 kg WEIGHT 2020-07-25 15:25:00 98 kg Systolic blood 2020-07-23 20:13:00 146 mm[Hg] [facility] pressure Medicine Diastolic blood 2020-07-23 20:13:00 84 mm[Hg] [facility] pressure Medicine Heart rate 2020-07-23 20:13:00 90 /min [facility] Body temperature 2020-07-23 20:13:00 36.67 Chari [facility] Body height 2020-07-23 20:13:00 188 cm [facility] Body weight 2020-07-23 20:13:00 95.709 [facility] BMI 2020-07-23 20:13:00 27.09 kg[facility]m2 [facility] Systolic blood 2020-07-23 20:13:00 146 mm[Hg] [facility] pressure Medicine Diastolic blood 2020-07-23 20:13:00 84 mm[Hg] [facility] pressure Medicine Heart rate 2020-07-23 20:13:00 90 /min [facility] Body temperature 2020-07-23 20:13:00 36.67 Chari [facility] Body height 2020-07-23 20:13:00 188 cm [facility] Body weight 2020-07-23 20:13:00 95.709 kg [facility] BMI 2020-07-23 20:13:00 27.09 kg/m2 [facility] Systolic blood 2020-06-12 19:53:00 136 mm[Hg] [facility] pressure Medicine Diastolic blood 2020-06-12 19:53:00 85 mm[Hg] [facility] Medicine Heart rate 2020-06-12 19:53:00 83 /min [facility] Respiratory rate 2020-06-12 19:53:00 16 /min [facility] Body height 2020-06-12 19:53:00 188 cm [facility] Body weight 2020-06-12 19:53:00 93.895 kg [facility] BMI 2020-06-12 19:53:00 26.58 kg/m2 [facility] Oxygen saturation in 2020-06-12 19:53:00 98 /min [facility] Arterial blood by Medicine Pulse oximetry Systolic blood 2020-06-12 19:53:00 136 mm[Hg] [facility] pressure Medicine Diastolic blood 2020-06-12 19:53:00 85 mm[Hg] [facility] Medicine Heart rate 2020-06-12 19:53:00 83 /min [facility] Respiratory rate 2020-06-12 19:53:00 16 /min [facility] Body height 2020-06-12 19:53:00 188 cm [facility] Body weight 2020-06-12 19:53:00 93.895 kg [facility] BMI 2020-06-12 19:53:00 26.58 kg/m2 [facility] Oxygen saturation in 2020-06-12 19:53:00 98 /min [facility] Arterial blood by Medicine Pulse oximetry Systolic blood 2020-03-26 20:46:00 129 mm[Hg] [facility] pressure Medicine Diastolic blood 2020-03-26 20:46:00 77 mm[Hg] [facility] pressure Medicine Heart rate 2020-03-26 20:46:00 81 /min [facility] Body temperature 2020-03-26 20:46:00 36.94 Chari [facility] Body height 2020-03-26 20:46:00 188 cm [facility] Body weight 2020-03-26 20:46:00 97.07 kg [facility] BMI 2020-03-26 20:46:00 27.48 kg/m2 [facility] Systolic blood 2020-03-26 20:46:00 129 mm[Hg] [facility] pressure Medicine Diastolic blood 2020-03-26 20:46:00 77 mm[Hg] [facility] Medicine Heart rate 2020-03-26 20:46:00 81 /min [facility] Body temperature 2020-03-26 20:46:00 36.94 Chari [facility] Body height 2020-03-26 20:46:00 188 cm [facility] Body weight 2020-03-26 20:46:00 97.07 kg [facility] BMI 2020-03-26 20:46:00 27.48 kg/m2 [facility] Systolic blood 2020-03-13 19:34:00 149 mm[Hg] [facility] pressure Medicine Diastolic blood 2020-03-13 19:34:00 89 mm[Hg] [facility] Medicine Heart rate 2020-03-13 19:34:00 82 /min [facility] Respiratory rate 2020-03-13 19:34:00 16 /min [facility] Body height 2020-03-13 19:34:00 188 cm [facility] Body weight 2020-03-13 19:34:00 94.802 kg [facility] BMI 2020-03-13 19:34:00 26.83 kg/m2 [facility] Systolic blood 2020-03-13 19:34:00 149 mm[Hg] [facility] pressure Medicine Diastolic blood 2020-03-13 19:34:00 89 mm[Hg] [facility] pressure Medicine Heart rate 2020-03-13 19:34:00 82 /min [facility] Respiratory rate 2020-03-13 19:34:00 16 /min [facility] Body height 2020-03-13 19:34:00 188 cm [facility] Body weight 2020-03-13 19:34:00 94.802 kg [facility] BMI 2020-03-13 19:34:00 26.83 kg/m2 [facility] Systolic blood 2019-12-06 20:13:00 155 mm[Hg] [facility] pressure Medicine Diastolic blood 2019-12-06 20:13:00 85 mm[Hg] [facility] Medicine Heart rate 2019-12-06 20:13:00 92 /min [facility] Body temperature 2019-12-06 20:13:00 36.67 Chari [facility] Respiratory rate 2019-12-06 20:13:00 16 /min [facility] Body height 2019-12-06 20:13:00 188 cm [facility] Body weight 2019-12-06 20:13:00 92.987 kg [facility] BMI 2019-12-06 20:13:00 26.32 kg/m2 [facility] Systolic blood 2019-12-06 20:13:00 155 mm[Hg] [facility] pressure Medicine Diastolic blood 2019-12-06 20:13:00 85 mm[Hg] [facility] Medicine Heart rate 2019-12-06 20:13:00 92 /min [facility] Body temperature 2019-12-06 20:13:00 36.67 Chari [facility] Respiratory rate 2019-12-06 20:13:00 16 /min [facility] Body height 2019-12-06 20:13:00 188 cm [facility] Body weight 2019-12-06 20:13:00 92.987 kg [facility] BMI 2019-12-06 20:13:00 26.32 kg/m2 [facility] Systolic blood 2019-11-26 20:19:00 154 mm[Hg] [facility] pressure Medicine Diastolic blood 2019-11-26 20:19:00 73 mm[Hg] [facility] pressure Medicine Heart rate 2019-11-26 20:19:00 93 /min [facility] Body temperature 2019-11-26 20:19:00 37 Chari [facility] Respiratory rate 2019-11-26 20:19:00 22 /min [facility] Body height 2019-11-26 20:19:00 188 cm [facility] Body weight 2019-11-26 20:19:00 98.431 kg [facility] BMI 2019-11-26 20:19:00 27.86 kg/m2 [facility] Systolic blood 2019-11-26 20:19:00 154 mm[Hg] [facility] pressure Medicine Diastolic blood 2019-11-26 20:19:00 73 mm[Hg] [facility] pressure Medicine Heart rate 2019-11-26 20:19:00 93 /min [facility] Body temperature 2019-11-26 20:19:00 37 Chari [facility] Respiratory rate 2019-11-26 20:19:00 22 /min [facility] Body height 2019-11-26 20:19:00 188 cm [facility] Body weight 2019-11-26 20:19:00 98.431 kg [facility] BMI 2019-11-26 20:19:00 27.86 kg/m2 [facility] Systolic blood 2019-09-19 21:22:00 163 mm[Hg] [facility] pressure Medicine Diastolic blood 2019-09-19 21:22:00 89 mm[Hg] [facility] pressure Medicine Heart rate 2019-09-19 21:22:00 94 /min [facility] Body temperature 2019-09-19 21:22:00 36.78 Chari [facility] Body height 2019-09-19 21:22:00 188 cm [facility] Body weight 2019-09-19 21:22:00 97.523 kg [facility] BMI 2019-09-19 21:22:00 27.60 kg/m2 [facility] Systolic blood 2019-09-19 21:22:00 163 mm[Hg] [facility] Medicine Diastolic blood 2019-09-19 21:22:00 89 mm[Hg] [facility] Medicine Heart rate 2019-09-19 21:22:00 94 /min [facility] Body temperature 2019-09-19 21:22:00 36.78 Chari [facility] Body height 2019-09-19 21:22:00 188 cm [facility] Body weight 2019-09-19 21:22:00 97.523 kg [facility] BMI 2019-09-19 21:22:00 27.60 kg/m2 [facility] Systolic blood 2021-09-01 10:55:00 114 mm[Hg] [facility] Diastolic blood 2021-09-01 10:55:00 71 mm[Hg] [facility] Heart rate 2021-09-01 10:55:00 70 /min [facility] Body temperature 2021-09-01 10:55:00 36.44 Chari [facility] Respiratory rate 2021-09-01 10:55:00 18 /min [facility] Body height 2021-09-01 10:55:00 182.1 cm [facility] Body weight 2021-09-01 10:55:00 98.657 kg [facility] BMI 2021-09-01 10:55:00 29.75 kg/m2 [facility] Oxygen saturation in 2021-08-29 11:30:00 99 /min [facility] Arterial blood by Medical Ce nter Pulse oximetry Procedures Procedure Date / Time Performing Clinician Source Performed AUTHORIZATION FOR RELEASE 2021-09-22 05:01:00 Doctor Unassigned, [facility] US PELVIS WITH DOPPLER 2021-09-01 14:51:[address] [facility] US ABDOMEN COMPLETE 2021-09-01 14:38:00 Kayla Chino [facility] PREPARE LEUKO-REDUCED RBC 2021-08-29 23:54:00 Sidra Clarke [facility] HEMODIALYSIS INPATIENT 2021-08-29 10:36:51 Buck Torres [facility] HEMOGLOBIN AND HEMATOCRIT 2021-08-29 08:19:00 Funmilayo Peralta [facility] HEMOGLOBIN AND HEMATOCRIT 2021-08-29 00:43:00 Funmilayo Peralta [facility] PTH, INTACT 2021-08-29 00:43:00 Pete Lorenzo [facility] PREPARE LEUKO-REDUCED RBC 2021-08-28 23:55:00 Funmilayo Peralta [facility] HEPATITIS B SURFACE ANTIGEN 2021-08-28 18:35:00 Celio Benz [facility] HEMOGLOBIN AND HEMATOCRIT 2021-08-28 18:35:00 Funmilayo Peralta [facility] SARS-COV2/RT-PCR ([facility] & 2021-08-28 15:34:00 Sidra Clarke [facility] REF LABS) [facility] REPORT OF PROCEDURE - 2021-08-28 11:25:45 [facility] ENDOSCOPY URL [facility] TISSUE EXAM 2021-08-28 11:16:00 [facility] ESOPHAGOGASTRODUODENOSCOPY, 2021-08-28 10:58:00 [facility] WITH BIOPSY [facility] TRANSFUSE LEUKO-REDUCED RED 2021-08-28 08:21:00 Sidra Clarke [facility] BLOOD CELLS [facility] HEMOGLOBIN AND HEMATOCRIT 2021-08-28 02:06:00 Funmilayo Peralta [facility] IRON, TIBC, % SAT. (WITHOUT 2021-08-28 02:06:00 [facility] FERRITIN) [facility] FERRITIN 2021-08-28 02:06:00 [facility] VITAMIN B12 AND FOLATE 2021-08-28 02:06:00 Morteza [facility] CBC W/PLT COUNT & AUTO 2021-08-28 02:06:00 Funmilayo Peralta [facility] BASIC METABOLIC PANEL 2021-08-28 02:06:00 Funmilayo Peralta [facility] PHOSPHORUS 2021-08-28 02:06:00 Pete Lorenzo [facility] CBC W/PLT COUNT & AUTO 2021-08-28 02:06:00 Melissa Peraltaly Raul [facility] TRANSFUSE LEUKO-REDUCED RED 2021-08-27 18:20:00 Funmilayo Peralta [facility] BLOOD CELLS [facility] HIGH SENSITIVITY TROPONIN I 2021-08-27 18:04:00 Fabian, [facility] PREPARE PACKED RBC 2021-08-27 13:46:17 Diya Rolon [facility] CBC W/PLT COUNT & AUTO 2021-08-27 13:40:00 Fabian Funmilayo Raul [facility] BASIC METABOLIC PANEL 2021-08-27 13:40:00 Funmilayo Peralta [facility] PROTHROMBIN TIME/INR 2021-08-27 13:40:00 Fabian Funmilayoreg Mireles [facility] I [facility] HIGH SENSITIVITY TROPONIN I 2021-08-27 13:40:00 Fabian, [facility] TYPE AND SCREEN, AUTOMATED 2021-08-27 13:40:00 Fabian, [facility] CBC W/PLT COUNT & AUTO 2021-08-27 13:40:00 Fabian [place] Raul [facility] ABORH CONFIRMATION (LAB 2021-08-27 13:14:00 Diya Rolon [facility] ONLY) Medical Branch HB ABO GROUPING 2021-08-27 12:25:00 Diya Rolon o f [facility] Branch COVID-19 (ID NOW RAPID 2021-08-27 11:56:00 [facility] COMP. METABOLIC PANEL 2021-08-27 11:26:00 Diya Rolon [facility] ([id number]) Medical Branch XR CHEST 1 VW 2021-08-27 11:12:00 Rolon, Diya [facility] LIPASE 2021-08-27 10:57:00 Diya Rolon [facility] TROPONIN I 2021-08-27 10:57:00 Diya Rolon [facility] CBC WITH DIFF 2021-08-27 10:57:00 Diya Rolon [facility] PROTHROMBIN TIME / INR 2021-08-27 10:57:00 Diya Rolon [facility] ACTIVATED PARTIAL THRMPLAS 2021-08-27 10:57:00 [facility] PRO-BNP 2021-08-27 10:57:00 Diya Rolon [facility] NOTICE OF PRIVACY PRACTICES 2021-08-27 10:38:00 Doctor Gino jn [facility] Name [facility] CONSENT/REFUSAL FOR 2021-08-27 10:37:13 Roselia Alva [facility] DIAGNOSIS AND TREATMENT [facility] AUTHORIZATION FOR RELEASE 2021-08-13 05:01:00 Doctor Serrano [facility] AUTHORIZATION FOR RELEASE 2021-07-31 05:01:00 Doctor Serrano [facility] CT CERVICAL SPINE WO 2021-06-13 22:02:07 Justus Kirkpatrick [facility] CONTRAST [facility] CT HEAD WO CONTRAST 2021-06-13 22:02:07 Justus Kirkpatrick [facility] CONSENT/REFUSAL FOR 2021-06-13 21:34:37 Doctor [facility]errano [facility] DIAGNOSIS AND TREATMENT [facility] ELECTROCARDIOGRAM COMPLETE 2020-06-12 20:33:54 Sara Reynaga [facility] Plan of Care Planned Activity Planned Date Details Comments Source Future Scheduled 2030-07-25 Screening for malignant [facility] Test 00:00:00 neoplasm of colon Medical Ce nter (procedure) [code = 010836257] Future Scheduled 2030-07-25 Screening for malignant [facility] Test 00:00:00 neoplasm of colon Medical Ce nter (procedure) [code = 791087901] Future Scheduled 2030-07-25 Screening for malignant [facility] Test 00:00:00 neoplasm of colon Medical Ce nter (procedure) [code = 021072001] Future Scheduled 2030-07-25 Screening for malignant [facility] Test 00:00:00 neoplasm of colon Medical Ce nter (procedure) [code = 249225749] Future Scheduled 2030-07-25 Screening for malignant [facility] Test 00:00:00 neoplasm of colon Medical Ce nter (procedure) [code = 299165986] Future Scheduled 2030-07-25 Screening for malignant [facility] Test 00:00:00 neoplasm of colon Medical Ce nter (procedure) [code = 052890547] Future Scheduled 2022-05-[address] [facility] Test 00:00:00 WELLNESS (YEAR 2 or Medical Center FIRST YEAR if no IPPE) [code = MEDICARE ANNUAL WELLNESS (YEAR 2 or FIRST YEAR if no IPPE)] Future Scheduled 2022-05-[address] [facility] Test 00:00:00 (12+) [code = Medical Center DEPRESSION SCREENING (12+)] Future Scheduled 2022-05-09 FALLS RISK SCREENING [facility] Test 00:00:00 [code = FALLS RISK Medical C enter SCREENING] Future Scheduled 2022-01-07 INFLUENZA VACCINE (#1) [facility]00 [code = INFLUENZA Medical Ce nter VACCINE (#1)] Future Scheduled 2022-01-07 INFLUENZA VACCINE (#1) [facility] 00:00:00 [code = INFLUENZA Medical Ce nter VACCINE (#1)] Future Scheduled 2022-01-07 INFLUENZA VACCINE (#1) [facility] 00:00:00 [code = INFLUENZA Medical Ce nter VACCINE (#1)] Future Scheduled 2021-05-[address] [facility] Test 00:00:00 (12+) [code = Medical Center DEPRESSION SCREENING (12+)] Future Scheduled 2021-05-09 FALLS RISK SCREENING [facility] Test 00:00:00 [code = FALLS RISK Medical C enter SCREENING] Future Scheduled 2021-05-[address] [facility] Test 00:00:00 (12+) [code = Medical Center DEPRESSION SCREENING (12+)] Future Scheduled 2021-05-09 FALLS RISK SCREENING [facility] Test 00:00:00 [code = FALLS RISK Medical C enter SCREENING] Future Scheduled 2021-02-[address] [facility] Test 00:00:00 aneurysm screening Medical C enter (procedure) [code = 983590332] Future Scheduled 2021-02-[address] [facility] Test 00:00:00 aneurysm screening Medical C enter (procedure) [code = 417416533] Future Scheduled 2021-02-[address] [facility] Test 00:00:00 aneurysm screening Medical C enter (procedure) [code = 736940616] Future Scheduled 2020-11-24 COVID-19 Vaccine (1) [facility] Test 08:10:33 [code = COVID-19 of Medicine Vaccine (1)] Future Scheduled 2020-11-24 TETANUS SHOT (ADULT) [facility] Test 08:10:33 [code = TETANUS SHOT of Medi cine (ADULT)] Future Scheduled 2020-11-24 BMI FOLLOW UP PLAN [facility] Test 08:10:33 [code = BMI FOLLOW UP of Med icine PLAN] Future Scheduled 2020-11-24 Hepatitis C screening [facility] Test 08:10:33 (procedure) [code = of Medic ine 655514506] Future Scheduled 2020-11-24 Human immunodeficiency B [facility] Test 08:10:33 virus screening of Medicine (procedure) [code = 058992129] Future Scheduled 2020-11-24 ZOSTER VACCINE (1 of 2) [facility] Test 08:10:33 [code = ZOSTER VACCINE of Me dicine (1 of 2)] Future Scheduled 2020-11-24 MEDICARE AWV (Initial) [facility] Test 08:10:33 [code = MEDICARE AWV of Medi cine (Initial)] Future Scheduled 2020-11-24 FLU VACCINE > 6 MONTH[facility] 08:10:33 [code = FLU VACCINE > 6 of M edicine MONTHS] Future Scheduled 2020-11-24 Screening for malignant [facility] Test 08:10:33 neoplasm of colon of Medicin e (procedure) [code = 441618310] Future Scheduled 2020-09-18 COVID-19 Vaccine (1) [facility] Test 16:08:01 [code = COVID-19 of Medicine Vaccine (1)] Future Scheduled 2020-09-18 TETANUS SHOT (ADULT) [employer] Test 16:08:01 [code = TETANUS SHOT of Medi cine (ADULT)] Future Scheduled 2020-09-18 BMI FOLLOW UP PLAN [employer] Test 16:08:01 [code = BMI FOLLOW UP of Med icine PLAN] Future Scheduled 2020-09-18 Hepatitis C screening [employer] Test 16:08:01 (procedure) [code = of Medic ine 651460879] Future Scheduled 2020-09-18 [facility] 16[facility]08:01 virus screening of Medicine (procedure) [code = 483875951] Future Scheduled 2020-09-18 ZOSTER VACCINE (1 of 2) [employer] Test 16:08:01 [code = ZOSTER VACCINE of Me dicine (1 of 2)] Future Scheduled 2020-09-18 [facility]ICARE AW[facility] (Initial[facility] 16:08:01 [code = MEDICARE AWV of Medi cine (Initial)] Future Scheduled 2020-09-18 FLU VACCINE > 6 MONTHS [facility] 16:08:01 [code = FLU VACCINE > 6 of M edicine MONTHS] Future Scheduled 2020-09-18 Screening for malignant [employer] Test 16:08:01 neoplasm of colon of Medicin e (procedure) [code = 476654059] Future Scheduled 2020-09-15 TETANUS SHOT (ADULT) [facility] Test 14:51:20 [code = TETANUS SHOT of Medi cine (ADULT)] Future Scheduled 2020-09-15 COVID-19 Vaccine (1) [employer] Test 14:51:20 [code = COVID-19 of Medicine Vaccine (1)] Future Scheduled 2020-09-15 BMI FOLLOW UP PLAN [employer] Test 14:51:20 [code = BMI FOLLOW UP of Med icine PLAN] Future Scheduled 2020-09-15 Hepatitis C screening [employer] Test 14:51:20 (procedure) [code = of Medic ine 806962849] Future Scheduled 2020-09-15 [facility]51:20 virus screening of Medicine (procedure) [code = 283980405] Future Scheduled 2020-09-15 ZOSTER VACCINE (1 of 2) [employer] Test 14:51:20 [code = ZOSTER VACCINE of Me dicine (1 of 2)] Future Scheduled 2020-09-15 MEDICARE AWV (Initial) [facility] [employer] Test 14:51:20 [code = MEDICARE AWV of [facility] (Initial)] Future Scheduled 2020-09-15 FLU VACCINE > 6 MONTHS B [facility] Test 14:51:20 [code = FLU VACCINE > 6 of edicine MONTHS] Future Scheduled 2020-09-15 Screening for malignant [facility] Test 14:51:20 neoplasm of colon of Medicin e (procedure) [code = 869747247] Diagnostic Test 2020-06-26 CT CHEST WO CONTRAST Expected: [facility] or [place] Pending 00:00:00 [code = 77968-3] 06/26/2020, of Medicine Expires: 10/24/2020 Diagnostic Test 2020-06-26 CT ABDOMEN PELVIS W WO Expected: [facility] Pending 00:00:00 CONTRAST [code = 06/26/2020, of Medicine 13756-3] Expires: 10/24/2020 Diagnostic Test 2020-06-12 MYOCARD PERFUSION - Expected: [facility] [place] Pending 00:00:00 LEXISCAN [code = 60846] 06/12/2020, of edicine Expires: 12/10/2021 Diagnostic Test 2020-06-12 ECHO, COMPLETE [code = Expected: [facility] Pending 00:00:00 [id number]] 06/12/2020, of Medicine Expires: 12/10/2020 Diagnostic Test 2019-10-03 CT CHEST ABDOMEN PELVIS Expected: [facility] Pending 00:00:00 WO CONTRAST [code = 10/03/2019, of Medic [place]e 18600] Expires: 04/20/2020 Future Scheduled 2006-02-18 SHINGLES VACCINES ([address] [facility] Test 00:00:00 2) [code = SHINGLES Medical Center VACCINES (1 of 2)] Future Scheduled 2006-02-18 SHINGLES VACCINES ([address] [facility] Test 00:00:00 2) [code = SHINGLES Medical Center VACCINES (1 of 2)] Future Scheduled 2006-02-18 SHINGLES VACCINES ([address] [facility] Test 00:00:00 2) [code = SHINGLES Medical Center VACCINES (1 of 2)] Future Scheduled 1975-02-18 DTAP/TDAP/TD [facility]ACCINES [facility] 00:[facility]:00 (1 - Tdap) [code = Medical C enter DTAP/TDAP/TD VACCINES (1 - Tdap)] Future Scheduled 1975-02-18 DTAP/TDAP/TD VACCINES [facility] 00:00:00 (1 - Tdap) [code = Medical C enter DTAP/TDAP/TD VACCINES (1 - Tdap)] Future Scheduled 1975-02-18 DTAP/TDAP/TD VACCINES [facility] 00:00:00 (1 - Tdap) [code = Medical C enter DTAP/TDAP/TD VACCINES (1 - Tdap)] Future Scheduled [address] [facility] Test 00:00:00 Counseling and Medical Cente r Screening (12+) [code = Tobacco Cessation Counseling and Screening (12+)] Future Scheduled [address] [facility] Test 00:00:00 Counseling and Medical Cente r Screening (12+) [code = Tobacco Cessation Counseling and Screening (12+)] Future Scheduled 1962-02-18 PNEUMOCOCCAL 65+ YRS ([address] [facility] Test 00:00:00 - PCV) [code = Medical Cente r PNEUMOCOCCAL 65+ YRS (1 - PCV)] Future Scheduled 1962-02-18 PNEUMOCOCCAL 65+ YRS ([address] [facility] Test 00:00:00 - PCV) [code = Medical Cente r PNEUMOCOCCAL 65+ YRS (1 - PCV)] Future Scheduled 1962-02-18 PNEUMOCOCCAL 65+ YRS ([address] [facility] Test 00:00:00 - PCV) [code = Medical Cente r PNEUMOCOCCAL 65+ YRS (1 - PCV)] Future Scheduled 1956 COVID-19 VACCINE (#1) [facility] 00:[facility]:00 [code = COVID-[address] VACCINE (#1)] Future Scheduled 1956 COVID-19 VACCINE (#1) [facility] 00:00:00 [code = COVID-[address] VACCINE (#1)] Future Scheduled 1956 COVID-19 VACCINE (#1) [facility] 00:00:00 [code = COVID-[address] VACCINE (#1)] Future Scheduled 1956 CT Colonography (combo) [facility] 00:00:00 [code = CT Colonography Medi dimitry Center (combo)] Future Scheduled 1956 Screening for malignant [facility] 00:00:00 neoplasm of colon Medical Ce nter (procedure) [code = 839178891] Future Scheduled 1956 Screening for malignant [facility] 00:00:00 neoplasm of colon Medical Ce nter (procedure) [code = 967303457] Future Scheduled 1956 Sigmoidoscopy [code = [facility] Sigmoidoscopy] Medical Cente r Future Scheduled 1956 CT Colonography (combo) [facility] 00:00:00 [code = CT Colonography Medi dimitry Center (combo)] Future Scheduled 1956 Screening for malignant [facility] 00:00:00 neoplasm of colon Medical Ce nter (procedure) [code = 831702260] Future Scheduled 1956 Screening for malignant [facility] 00:00:00 neoplasm of colon Medical Ce nter (procedure) [code = 077490698] Future Scheduled 1956 Sigmoidoscopy [code = [facility] 00:[facility] Sigmoidoscopy] Medical Cente r Future Scheduled 1956 CT Colonography (combo) [facility] 00:00:00 [code = CT Colonography [facility] Center (combo)] Future Scheduled 1956 Screening for malignant [facility] Test 00:00:00 neoplasm of colon Medical Ce nter (procedure) [code = 948602323] Future Scheduled 1956 Screening for malignant [facility] Test 00:00:00 neoplasm of colon Medical Ce nter (procedure) [code = 784281486] Future Scheduled 1956 Sigmoidoscopy [code = [facility] Sigmoidoscopy] Medical Cente r Future Scheduled COLON CANCER SCREENING: [facility] Test COLONOSCOPY [code = of Medic ine COLON CANCER SCREENING: COLONOSCOPY] Future Scheduled TETANUS SHOT (ADULT) [employer] [facility] [code = TETANUS SHOT of Medi cine (ADULT)] Future Scheduled BMI FOLLOW UP PLAN [place] [...] edicine MONTHS] Future Scheduled COLON CANCER SCREENING: [employer] [facility] COLONOSCOPY [code = of Medic ine COLON CANCER SCREENING: COLONOSCOPY] Future Scheduled TETANUS SHOT (ADULT) [employer] [facility] [code = TETANUS SHOT [...] edicine MONTHS] Future Scheduled COLON CANCER SCREENING: [facility] Test COLONOSCOPY [code = of Medic ine COLON CANCER SCREENING: COLONOSCOPY] Future Scheduled TETANUS SHOT (ADULT) [employer] [facility] [code = TETANUS SHOT [...] edicine MONTHS] Future Scheduled COLON CANCER SCREENING: [facility] Test COLONOSCOPY [code = of Medic ine COLON CANCER SCREENING: COLONOSCOPY] Future Scheduled COVID-19 Vaccine [employer] [facility] Evaluation [code = of Medici ne COVID-19 Vaccine Evaluation] Future Scheduled TETANUS SHOT (ADULT) [employer] [facility] [code = TETANUS SHOT [...] Future Scheduled ZOSTER VACCINE (1 of 2) [facility] Test [code = ZOSTER VACCINE of Me dicine (1 of 2)] Future Scheduled MEDICARE AWV (Initial) [employer] [facility] [code = MEDICARE AWV of Medi cine (Initial)] Future Scheduled FLU VACCINE > 6 MONTHS [employer] [facility] [code = FLU VACCINE > 6 of M edicine MONTHS] Future Scheduled VITAMIN B12 [code = Ordered: [facility] Test 2132-9] 07/23/2020 of Medicine Future Scheduled FOLATE [code = 2284-8] Ordered: [employer] 07/23/2020 of Medicine Future Scheduled FERRITIN [code = Ordered: [facility] Test 09128-9] 07/23/2020 of Medicine Future Scheduled Screening for malignant [facility] Test neoplasm of colon of Medicin e (procedure) [code = 849171435] Future Scheduled TETANUS SHOT (ADULT) [employer] [facility] [code = TETANUS SHOT of Medi cine (ADULT)] Future Scheduled COVID-19 Vaccine (1) [employer] [facility] [code = COVID-19 of Medicine Vaccine (1)] Future Scheduled BMI FOLLOW UP PLAN [employer] [facility] [code = BMI FOLLOW UP of Med icine PLAN] Future Scheduled Hepatitis C screening [employer] [facility] (procedure) [code = of Medic ine 186124026] Future [facility] virus screening of Medicine (procedure) [code = 228070887] Future Scheduled ZOSTER VACCINE (1 of 2) [facility] Test [code = ZOSTER VACCINE of Me dicine (1 of 2)] Future Scheduled MEDICARE AWV (Initial) [employer] [facility] [code = MEDICARE AWV of Medi cine (Initial)] Future Scheduled FLU VACCINE > 6 MONTHS [employer] [facility] [code = FLU VACCINE > 6 of M edicine MONTHS] Future Scheduled TETANUS SHOT (ADULT) [employer] Test [code = TETANUS SHOT of Medi cine (ADULT)] Future Scheduled COVID-19 Vaccine (1) [employer] [facility] [code = COVID-19 of Medicine Vaccine (1)] Future Scheduled BMI FOLLOW UP PLAN [employer] Test [code = BMI FOLLOW UP of Med icine PLAN] Future Scheduled Hepatitis C screening [employer] [facility] (procedure) [code = of Medic ine 608379795] Future Scheduled Human immunodeficiency [employer] Test virus screening of Medicine (procedure) [code = 868595855] Future Scheduled ZOSTER VACCINE (1 of 2) [employer] Test [code = ZOSTER VACCINE of Me dicine (1 of 2)] Future Scheduled MEDICARE AWV (Initial) [employer] [facility] [code = MEDICARE AWV of Medi cine (Initial)] Future Scheduled FLU VACCINE > 6 MONTHS [employer] [facility] [code = FLU VACCINE > 6 of M edicine MONTHS] Future Scheduled Screening for malignant [facility] Test neoplasm of colon of Medicin e (procedure) [code = 263059868] Future Scheduled COLON CANCER SCREENING: [facility] [employer] Test COLONOSCOPY [code = of Medic ine COLON CANCER SCREENING: COLONOSCOPY] Future Scheduled TETANUS SHOT (ADULT) [employer] Test [code = TETANUS SHOT [...] edicine MONTHS] Future Scheduled COLON CANCER SCREENING: [facility] Test COLONOSCOPY [code = of Medic ine COLON CANCER SCREENING: COLONOSCOPY] Future Scheduled TETANUS SHOT (ADULT) [employer] [facility] [code = TETANUS SHOT [...] FLU VACCINE > 6 MONTHS [employer] [facility] [code = FLU VACCINE > 6 of M edicine MONTHS] Encounters Start End Encounter Admission Attending Care Care Encounter Source Date/Time Date/Time Type Type Clinicians Facility Department ID 2020-07-23 Inpatient KALANI MOTTA [facility] [id number] [facility] 18:00:00 YAZAN 2022-04-14 2022-04-14 Telephone Solange [facility] [id number] [facility] 00[facility]:00 [facility] 2022-04-14 2022-04-14 Telephone Solange [facility] [id number] 00:[facility] 00:00:00 [facility] 2022-04-14 2022-04-14 [facility] [id number] 00:[facility] 00:00:00 [facility] 2022-04-14 2022-04-14 [facility] [id number] 00:00[facility] 00:00:00 [facility] 2022-04-02 2022-04-02 Telephone Joby, [facility] [id number] 00:00:00 00:00:00 [facility] 2022-04-02 2022-04-02 [facility] [id number] 00:00:00 00:00:00 [facility] 2022-03-29 2022-03-29 Telephone [facility] [id number] 00:00[facility] 00:00:00 [facility] 2022-03-29 2022-03-29 Telephone [facility] [id number] 00:00:00 00:00:00 [facility] 2022-03-16 2022-03-16 Yossi Kiser [facility] [id number] 00:00:00 00:00:00 [facility] 2022-03-16 2022-03-16 Documentat Kiser [facility] [id number] 00:00:00 00:00:00 [facility] 2022-03-02 2022-03-02 Abstract Kandi [facility] [id number] 00:00:00 00:00:00 [facility] 2022-03-02 2022-03-02 Abstract Kandi [facility] [id number] 00:00:00 00:00:00 [facility] 2022-01-01 2022-01-01 Telephone Labang[place], [facility] [id number] 00:00:00 00:00:00 [facility] 2022-01-01 2022-01-01 Telephone [place], [facility] [id number] 00:00:00 00:00:00 [facility] 2021-10-08 2021-10-08 [facility]phone [facility] [id number] 00:00:00 00:00:00 [facility] 2021-10-08 2021-10-08 Telephone Edie [facility] [id number] 00:00:00 00:00:00 [facility] 2021-09-23 2021-09-23 Outpatient Brendon KIM [facility] [id number] Univers 14:00:00 14:00:00 JAVIER cedeno [facility] 2021-09-22 2021-09-22 Orders Doctor SARA 1.2.840.114 [id number] Univers 00:00:00 00:00:00 Only Unassigned, GADIEL 350.1.13.10 genay of [place] [facility] 4.2.7.2.686 Naveen as [phone] [address] 2021-09-01 2021-09-01 [facility] [id number] 13:57:47 23:59:00 Encounter [facility] 2021-09-01 2021-09-01 Outpatient EL MATTI, [facility] [id number] [facility] 13:57:47 23:59:00 [facility]01 Hospital Matti, [facility] [id number] 13:57:47 23:59:00 Encounter [facility] 2021-09-01 2021-09-01 Outpatient EL MATTI, SLEH [facility] [id number] [facility] 13:57:36 13:56:00 [facility] 2021-09-01 2021-09-01 [facility] [id number] 13:00:00 13:56:00 Encounter [facility] 2021-09-01 2021-09-01 [facility] [id number] 13:00:00 13:56:00 Encounter [facility] 2021-09-01 2021-09-01 Evaluation Matti, [facility] [id number] 10:40:00 11:10:00 [facility] 2021-09-01 2021-09-01 Evaluation Matti, [facility] [id number] 10:40:00 11:10:00 [facility] 2021-09-01 2021-09-01 Outpatient EL SLEH SLEH [id number] [facility] 10:43:02 10:43:02 2021-09-01 2021-09-01 Outpatient EL [facility]H [facility] [id number] [facility] 10:42:51 10:42:51 2021-09-01 2021-09-01 Outpatient EL [facility]H [facility] [id number] [facility] 10:42:15 10:42:15 2021-09-01 2021-09-01 Outpatient EL SLEH [facility]H [id number] [facility] 10:39:54 10:39:54 2021-09-01 2021-09-01 Follow-Up Matti, Kayla Blank [facility] [id number] [facility] 10:00:00 10:30:00 Janeth Pema [facility] 2021-09-01 2021-09-01 [facility]-Up Matti[facility] [id number] [facility] 10:00:00 10:30:00 Janeth Pema [facility] 2021-09-01 2021-09-01 Follow-Up Matti, [facility] [id number] 09:30:00 10:00:00 [facility] 2021-09-01 2021-09-01 Follow-Up Matti, [facility] [id number] 09:30:00 10:00:00 [facility] 2021-09-01 2021-09-01 Evaluation Matti, [facility] [id number] 09:00:00 09:30:00 [facility] 2021-09-01 2021-09-01 Evaluation Matti, [facility] [id number] 09:00:00 09:30:00 [facility] 2021-08-27 2021-08-29 Inpatient ER ANNA CALRKE Cardiology 20 [id number] [facility] 10:42:00 14:16:00 [facility] 2021-08-27 2021-08-29 [facility] [id number] 10:42:00 14:16:00 Encounter Rain [facility] 2021-08-27 2021-08-29 [facility] [id number] 10:42:00 14:16:00 Encounter Rain [facility] 2021-08-28 2021-08-28 Anesthesia Rosie [facility] [id number] 11:08:00 11:53:00 Event [facility] 2021-08-28 2021-08-28 Anesthesia Rosie [facility] [id number] 11:08:00 11:53:00 Event [facility] 2021-08-28 2021-08-28 Surgery Magalys [facility] [id number] 11:00:00 11:48:00 [facility] 2021-08-28 2021-08-28 Surgery Magalys [facility] [id number] 11:00:00 11:48:00 [facility] 2021-08-27 2021-08-27 [id number] Univers 05:49:00 09:49:00 DIYA cedeno [facility] 2021-08-27 2021-08-27 [facility] [id number] [id number] Univers 05:49:00 09:49:00 Diya GHENT 350.1.13.10 i [facility] 4.2.7.2.686 [facility] [id number] [address] 2021-08-27 2021-08-27 Outpatient EL MATTI, [facility]H [facility] [id number] [facility] 00:00:00 00:00:00 AMIDIPA 2021-08-27 2021-08-27 Outpatient EL [facility] [id number] [facility] 00:00:00 00:00:00 2021-08-27 2021-08-27 Outpatient EL MATTI, [facility]H [facility] [id number] [facility] 00:00:00 00:00:00 AMIDIPATI 2021-08-27 2021-08-27 Outpatient EL MATTI, [facility]H [facility] [id number] [facility] 00:00:00 00:00:00 AMIDIPATI 2021-08-27 2021-08-27 Outpatient EL MATTI, [facility] [id number] [facility] 00:00:00 00:00:00 AMIDIPATI 2021-08-27 2021-08-27 Telephone Edie [facility] [id number] 00:00:00 00:00:00 [facility] 2021-08-27 2021-08-27 Telephone Edie [facility] [id number] 00:00:00 00:00:00 [facility] 2021-08-26 2021-08-26 Telephone Edie [facility] [id number] 00:00:00 00:00:00 [facility] 2021-08-26 2021-08-26 Telephone Edie [facility] [id number] 00:00:00 00:00:00 [facility] 2021-08-13 2021-08-13 Orders Doctor RUIZ 1.2.840.114 [id number] 00:00:00 00:00:00 Only Unassigned, GADIEL 350.1.13.10 ity of [place] [facility] 4.2.7.2.686 Naveen as [phone] [address] 2021-07-31 2021-07-31 Orders Doctor RUIZ 1.2.840.114 [id number] Univers 00:00:00 00:00:00 Only Unassigned, GADIEL 350.1.13.10 ity of [place] [facility] 4.2.7.2.686 Naveen as [id number] [place] [address] [place] 2021-07-09 2021-07-09 Orders [facility] [id number] 00:00:00 00:00:00 Only [facility] 2021-07-09 2021-07-09 Orders [facility] [id number] 00:00:00 00:00:00 Only [facility] 2021-07-07 2021-07-07 Telephone [facility] [id number] 00:00:00 00:00:00 [facility] 2021-07-07 2021-07-07 Documentat [facility] [id number] 00:00:00 00:00:00 ion [facility] 2021-07-07 2021-07-07 Telephone Gabrielle, [facility] [id number] 00:00:00 00:00:00 [facility] 2021-07-07 2021-07-07 Documentat Gabrielle, [facility] [id number] 00:00:00 00:00:00 ion [facility] 2021-07-06 2021-07-06 Telephone Edie, [facility] [id number] 00:00:00 00:00:00 [facility] 2021-07-06 2021-07-06 Orders Labradara, [facility] [id number] 00:00:00 00:00:00 Only [facility] 2021-07-06 2021-07-06 Telephone Edie, [facility] [id number] 00:00:00 00:00:00 [facility] 2021-07-06 2021-07-06 Orders Labradara, [facility] [id number] 00:00:00 00:00:00 Only [facility] 2021-06-13 2021-06-13 Emergency Justus Kirkpatrick [facility] 1.2.840.114 [id number] Univers 15:44:00 16:53:00 T GHENT 350.1.13.10 i [facility] 4.2.7.2.686 [facility] [id number] [place] [address] [place] 2021-06-13 2021-06-13 Emergency X JUSTUS KIRKPATRICK [facility] ERT [id number] Univers 15:44:00 16:53:00 ity [facility] 2020-12-30 2020-12-30 Outpatient DMG DMG [id number] [facility] 08:00:00 08:00:00 08 Medica l Group 2020-09-18 2020-09-18 Office ERNESTINA VELARDE 1.2.840.114 [id number] [facility] 15:54:57 17:38:09 Visit AMBULATOR 350.1.13.21 College Y 0.2.7.2.686 of [id number] [facility] 335 e 2020-09-16 2020-09-16 Outpatient [facility] [id number] [facility] 00:00:00 00:00:00 2020-09-15 2020-09-15 Office Kalen Hurtado [facility] 1.2.840.114 [id number] [facility] 14:48:22 15:18:22 Visit Mook AMBULATOR 350.1.13.21 College Y 0.2.7.2.686 of [id number] [facility] 380 e 2020-09-15 2020-09-15 Outpatient [facility] [id number] SLE 00:00:00 00:00:00 2020-09-09 2020-09-09 Office Hector, [facility] 1.2.840.114 [id number] [facility] 13:42:54 14:02:54 Visit Chandra Shahnaz 350.1.13.21 Co llege Maximo 0.2.7.2.686 of [id number] [facility] 530 e 2020-09-09 2020-09-09 Office [facility] 1.2.840.114 [id number] 13:42:54 14:02:54 Visit Chandra Shahnaz 350.1.13.21 Maximo 0.2.7.2.686 [id number] 530 2020-07-23 2020-07-23 Office Calderon, BSC 1.2.840.114 [id number] [facility] 14:58:20 15:33:17 Visit Chandra Shahnaz 350.1.13.21 Co llege Maximo 0.2.7.2.686 of [id number] [facility] 530 e 2020-07-23 2020-07-23 Office Calderon, BSC 1.2.840.114 [id number] 14:58:20 15:33:17 Visit Chandra Shahnaz 350.1.13.21 Maximo 0.2.7.2.686 [id number] 530 2020-06-12 2020-06-12 Office Ronnell BCM 1.2.840.[id number] [place] [address] 13:43:36 15:53:35 Visit Sara Meyers AMBULATOR 350.1.13.21 College Y 0.2.7.2.686 of [id number] [facility] 375 e 2020-06-12 2020-06-12 Office Ronnell BCM 1.2.840.114 [id number] 13:43:36 15:53:35 Visit Sara Meyers AMBULATOR 350.1.13.21 Y 0.2.7.2.686 [id number] 375 2020-06-04 2020-06-04 Office Ronnell, BCM 1.2.840.[id number] [place] [address] 11:30:00 12:00:00 Visit Sara Meyers AMBULATOR 350.1.13.21 College Y 0.2.7.2.686 of [id number] [facility] 375 e 2020-03-26 2020-03-26 Office [facility], [facility] 1.2.840.[id number] [place] [address] 14:34:45 16:13:29 Visit Chandra Shahnaz 350.1.13.21 Co llege Maximo 0.2.7.2.686 of [id number] [facility] 530 e 2020-03-26 2020-03-26 Office Hector, [facility] 1.2.840.114 [id number] 14:34:45 16:13:29 Visit Chandra Shahnaz 350.1.13.21 Maximo 0.2.7.2.686 [id number] 530 2020-03-13 2020-03-13 Office Kalen Hurtado 1.2.840.114 [id number] [facility] 13:22:23 13:52:23 Visit Mook AMBULATOR 350.1.13.21 College Y 0.2.7.2.686 of [id number] [facility] 380 e 2020-03-13 2020-03-13 Office Kalen Hurtado 1.2.840.114 [id number] 13:22:23 13:52:23 Visit Mook AMBULATOR 350.1.13.21 Y 0.2.7.2.686 [id number] [facility] 2019-12-06 2019-12-06 Office Kalen Hurtado [facility] 1.2.840.114 [id number] [facility] 15:08:57 15:38:57 Visit Mook AMBULATOR 350.1.13.21 College Y 0.2.7.2.686 of [id number] [facility] 380 e 2019-12-06 2019-12-06 Office Kalen Hurtado BCM 1.2.840.114 [id number] 15:08:57 15:38:57 Visit Mook AMBULATOR 350.1.13.21 Y 0.2.7.2.686 [id number] [facility] 2019-11-26 2019-11-26 Office Kalen Hurtado BCM 1.2.840.114 [id number] [facility] 11:32:45 16:18:07 Visit Mook AMBULATOR 350.1.13.21 College Y 0.2.7.2.686 of [id number] [facility] 380 e 2019-11-26 2019-11-26 Office Kalen Hurtado BCM 1.2.840.114 [id number] 11:32:45 16:18:07 Visit Mook AMBULATOR 350.1.13.21 Y 0.2.7.2.686 [id number] [facility] 2019-11-15 2019-11-15 Outpatient CALDERON, SLEH SLEH [id number] [facility] 00:00:00 00:00:00 CHANDRA 2019-11-15 2019-11-15 Outpatient EL CALDERON, SLEH SLEH [id number] [facility]H 00:00:00 00:00:00 CHANDRA 2019-11-12 2019-11-12 Outpatient EL CALDERON, SLEH SLEH [id number] [facility] 00:00:00 00:00:00 CHANDRA 2019-11-12 2019-11-12 Outpatient EL CALDERON, SLEH SLEH [id number] [facility]H 00:00:00 00:00:00 CHANDRA 2019-11-01 2019-11-01 Outpatient EL CALDERON, SLEH SLEH [id number] [facility] 00:00:00 00:00:00 CHANDRA 2019-11-01 2019-11-01 Outpatient CALDERON, SLEH SLEH [id number] [facility]H 00:00:00 00:00:00 CHANDRA 2019-10-16 2019-10-16 Outpatient CALDERON, SLEH SLEH [id number] [facility]H 00:00:00 00:00:00 CHANDRA 2019-10-16 2019-10-16 Outpatient EL CALDERON, SLEH SLEH [id number] [facility] 00:00:00 00:00:00 CHANDRA 2019-10-04 2019-10-04 Outpatient CALDERON, SLEH SLEH [id number] [facility]H 00:00:00 00:00:00 CHANDRA 2019-10-04 2019-10-04 Outpatient EL CALDERON, SLEH SLEH [id number] [facility]H 00:00:00 00:00:00 CHANDRA 2019-09-20 2019-09-20 Outpatient CALDERON, [facility] [id number] [facility] 00:00:00 00:00:00 CHANDRA 2019-09-20 2019-09-20 Outpatient EL CALDERON, [facility] [id number] [facility] 00:00:00 00:00:00 CHANDRA 2019-09-19 2019-09-19 Office Calderon, [facility] [id number] [facility] 16:13:39 16:30:34 Visit Chandra Christie [id number] [facility] [id number] [facility] 530 e 2019-09-19 2019-09-19 Office Calderon, [facility] [id number] 16:13:39 16:30:34 Visit Chandra Christie [id number] [facility]imo [phone] [id number] Results Test Description Test Time Test Comments Results Result Sour e Comments U/S, PELVIS, WITH 2021-09-01 Reason for DOPPLER 15:26:00 Exam:->assess iliac vessels [facility] for renal [facility] transplant CENTERName: [facility] ANDREA : 1955 [...] the iliac vessels bilaterally. Signed: Lois Ribera MDReport Verified Date/Time: 09/01/2021 15:26:03 U/S, ABDOMINAL, 2021-09-01 Reason for COMPLETE 15:23:00 Exam:->Kidney transplant [facility] evaluation; [facility] comment on CENTERName: [facility], number of renal ASHIA VIDAL : cysts on [...] There is increased echogenicity of the bilateral [place] kidneys. The kidneys are normal in size. [...] [phone]) COMPATIBLE Unit ABO (test code = 5957010) B Pos UNIT NUMBER (test code = 934-0) [id number] Status (test code = 1565326) TX_TIMEINCHART Blood Bank Product (test code = 2263) RED BLOOD CELLS PRODUCT CODE (test code = 933-2) [id number] [facility] [id number] 23:54:00 Test Item Value Reference Range Interpretation Comments CROSSMATCH (test code = 2264) COMPATIBLE Unit ABO (test code = B Pos [id number]) UNIT NUMBER (test code = [id number] 934-0) Status (test code = 8561395) TX_TIMEINCHART Blood Bank Product (test code RED BLOOD CELLS = 2263) PRODUCT CODE (test code = N2525H81 933-2) [facility] [id number] 23:54:00 Test Item Value Reference Range Interpretation Comments CROSSMATCH (test code = 2264) COMPATIBLE Unit ABO (test code = B Pos [id number]) UNIT NUMBER (test code = [id number] 934-0) Status (test code = 5977583) TX_TIMEINCHART Blood Bank Product (test code RED BLOOD CELLS = 2263) PRODUCT CODE (test code = Y5677V57 933-2) [facility] [id number] 12:40:29 Test Item Value Reference Range Interpretation Comments Case Report (test code Surgical Pathology = 104) Report Case: [id number] Authorizing Provider: Ji Dowell MD Collected: 08/28/2021 11:16 AM Ordering Location: [address] Received: 08/28/2021 04:08 PM Service Pathologist: Ezequiel Palomino MD Specimen: Biopsy, Gastric, random biopsies DIAGNOSIS (test code = b8uzzTDwFJDna3weYUSyuF 3220) FuZzEwMzNcZnRuYmpcdWMx IHtccnRmMVxlcGljOTYwMV mzosDlHCIyrFGaT2Dqihrh WAkrLI1pDI4pgGijzZFigW KmNJGmIkQgm1odb821jKPc a0tdICMHvwstoFi5uXlzO1 3hz2E1LfjvW28vuVDaWMU7 IXQeKPIuuDQiIWUqGQL7EK GmrUGmJ5sfQJDtNQ1bxsrd TAzmHQtsHSItsIY1LROpuU QvM2TnULHwYUnzKPZsirn9 HiRbMa1biSFrsXgrIVeqKK WpNSLtDVaoDVJuXcUuI4BO YTZUERpxXgZZMQ0VLORKCW 5RD1n8RCAtxdzkaAbyDWbw tI33TrOxSGJQYQOMORpNBN NSUwNABLwpKT7BQQ2MYK1D EZJlPTUTE8BAVPnJFHymFG 8WV8FIZeAuS6lFW46XXnBD JYAVBvkDXHAclFVeVX5xJP NMILOPZeMEGIITULaBOT9F DDDXEHFWGQItey94SJV8Jd Qyn7T6RZB4RLBqZEEew5pq ZGVmbGFuZzEwMzNcZnRuYm insIPbUBBeEfMih0hnp987 kPSuz8roTYWdWvT4zQXaYN MutCKdE775CZFmZGpwo2tv y6ZoCPUyiAOpx0W7GYCIxt mzdLw0gOucA08vm3I9Qbxj H0gtJVDaZKCzK5DyTW4aGO DdKpl6DEI0OPR1HKLdOHDt Z0FlHE9tUIVjyIAjHWf7e5 ddeWiaAXTsNDI9e3hqCLfl mnQiXK1sjz1nkTn3j6jfxh PmARQoBASmyENBKYSwN0Ve nHroEl6bkCq5sOpwBwazTH J3Mox5NI6hnj43maz3bNaq MMKnfalmMxG0IZpkHBHekb gdOIn1TSsyPDLztYP3CMBn eCQpA8AcVQAxFW4qizc0JX E0YHfwTUJuIvJ6CRGepPJu GPLsjHnkXBkqc157HKM7Ie MbQK0uH6Idj2X5xP2sfKFf HSSdtVUwKiCnVFUhxb3yoZ FcZHjhr5RtUDW2sgO1rGKs iHQzJGOeObM6CCowFL2xcp 14VRMqSCC2jz4rxHXcvNgk plBbjIPtHOtfC5SrATPpo9 71MXNeL4AhCSSji3C2amYo GyVlQULyhZO7nyT9YGQcQE 4mymveu5iqWLwuHRicASXv tfS9swP8FAUzzATnY6VxbZ 2yDAYcZX3ivmrje9reSIH8 PCxgDAWkOOI3ArLbNQEse6 Cwuqq3QmBbc3BwsARsKKcx H45um352PJAyivSxB4rsyW FpblxwbGFpblxmMFxmczI0 XHFsXGxhbmcxMDMzXGhpY2 hdToFeYBPvbSwoVUupn5Cg XGYxXGZzMjJcdGFiXHRhYl z2JORreWBmLQLzYrKlE8hy mjwwIqSYZEQlu3ecX9wfmU YHoOEsE7GfKTbodaLdZTen SHajPfRbREx0EM57PbBiDS Bhcn19 COMMENT (test code = s4lmpCQcLKJvlSL0FdRoQM 4411) Juf0axn7FjzJZxcSSxKOtu qKMhjlIoco95sXQ1hF92BM 5gFSYlRnF8JBZhtkS6Bso5 WXZaPMCshQYyH338j3yiw3 bhpnPhuWY9mYnkOVTlludo AfM5FEplKVQewwuwDRq2PU znFXMhlLK0PCFbmTUgA3Do BHSaWZ4vipy8IYR2YVcnFT GtWtG4LANanEFuRFDtpIoc DHezd200SUF6MzFzXRCrhn JcbVuopA7fRqNyMDPKcmAw s7GfhQhuidRjc1O7VMwmxb FxRGRcBHwpRZ5tAJTgrd6= CPT Code(s) (test code u9fppBEkPOQoxTR9MtEsIQ = 3357) Hoh1rpn8LsuQJysNQjJIzz pIBxdrIsjl43hYK1hM92UA 8kLUPiZcL4QOMgugO0Tqz2 LLTqZMThbSJnZ231o5xeh4 vlneUdmPG4pBkrMQAtuvko WhT3NNpvGWUkglueIVb7XZ kyVKYqeVG4SAPkeQXqB5Jz CUKqHF4wffw8API0RNtiIZ RgLxT8JHMntZVaNEUarPdt EBgls178IMS7VkWwXFKowr VizHvsrN2nToEmFRW5SFYc NVxwYXJ9 CLINICAL HISTORY (test e7gjxBRoHAFqgQM5CyFcMT code = 3353) Ryf0gyx3UzfOOxtYBeRZno aCXqxaLohn28hWR3zM81XP 5qTQYmQiW4OMWcpaX0Tdz5 QOUeNPKfkWMiB324b0ive1 wylyXnbWD7aHrdYZWxahti MeH1JBjoAXIiwmscIAn1CC pqRVYqtNV2NLZpeAAuQ8Yk VNPwZK9huwr2RVH8MMjqEH XeXfY6ELZloAQeXKQsrEfl XFtyv722ZEP2QnIzGWVqht PojKfryY2nEkImBVQZfaEb yMCaBSRsa6KzB4vaxGOgOF B0cMHmyPRvcI== GROSS DESCRIPTION (test g8btgLTcNWTahQEUMERxBf code = [id number]) vlfkGhKSDmkDQaR5Cwowbh TXjrHI0zZW6fwJtdrYNncQ UxQW1KDRPhDbGnZCFntSFj knXaYrNhPRHtkSIetJD5ZP McRA8ykhaoEPhlRXwjOVGv siC2HNBouQVoN5YmSPKiOE 0gqxqoKQS5OWxboO2mryZP MvkpUv9jqHRadNydLrJiXt NoYXJzZXQwXGZuaWwgQXJp UKo9kD8YXvuhT43mj6R2Ev n9ZJRnIPKtK4NpFJ7kKJHh xWXfT72BFsdbQRP9SQAVGz zjYMIkDR2Ng1klXCSdkXNo GYJ0QKjrkQCkDDRzTLXbAS g5KXCbFWlsiKZiHY9ylPve DfzpwWcml2VchNBdCEsmOG NtPCXsLYqvUGXcGE6NIsRr ELFfEZE6GjPvBUw1TDh1IT 7TKyIcZFZqGKP8DQDpXgIw TBd7CCukFY6EFOR7XJPsRg auGJM5NIRqLBMgTVIbXbWz XGYgQXJpYWwgXFxmbCBcXG 6ibVpmwXCeloIAYpOWtY7g b0vyPSvxd2OqdXVuNBLwxy ANClxlcGljTmVzdERvYzEg DQpcbHRycGFyXGxpbjBccm luMCANClxsdHJjaFxjZjFc ZnMyMCBSZWNlaXZlZCBpbi Nzh2NhFXwsekEtEBFmlLIs IHdpdGggdGhlIHBhdGllbn BnZ1U4ocOwVM6xPRUjWRTt I8AiFPBkH24vXDTdvW3qTC YgJD0rSDk1UMTfLTYkJope AtkhoML3KCVuYYV1bpvmAg PoyrVfJ11co8qmmTDqq0Oq XMC6XTaxo6wvdTzmHIHnSF z8DsTmnoV0yiUfPKRbcYip YVQhYMe7GpZufmW5fPAglD DoDdWfF34bnyYfNE0zJJR4 utcuSnUrGiZydW4dVH99RN RiOXcwXXixHKC7RRY6HNJc gJBpg6lapi1pOLCuVPTyaP BjkW0rsaLkqfEdnVTyiZX4 IYNctJ7qwE24bnPgpaDjVX NmCBS7BWSXAL6dcHzvCWFz bGluZSBFUywgcmVzaWRlbn XnpSLzSZ6DBYLsqcPPCvfd ZjBcZnMyMiANClxwbGFpbl xlcGljTmVzdERvYzBccGxh aC38GEAcqZUkLTF8MB2zDF IospesVKIvTUIlBTA7YGgh sY19xTSkNBOsRQWxwYNywN 9WIDBlYQD6YOyghP40bHCa TR7EKGNqHMV8GPMmdVIbIT D1LC2mmL5WoY== MICROSCOPIC DESCRIPTION m4akxOKqSTKbkTU2UxZvQW (test code = 3371) Zjr4ivw4MycNMaeFOjUHbs vKSqamBqbl53cEO4mA22PK 9xIAClWmT6WQItrfS4Ihr3 RGGqOZIqxWNeI297o7gkd7 kchnFyxCZ9aLzhGRVmwsga BnY9OQrqYXJacwzgTJd6OT cjCZLlhQW0MZAzmJAiK9Ca YGPzKA4csdg4ZOB2NDswVD ChRpB8LEQklLSaNKCcxWak JEsci852OMX2HoZpOTHxbl OcrScieZ7zYdNjVCKWPQBi j5QjLRRmROMwup3= Gross assessment was [facility] performed at ([facility], = [phone]) Department of Pathology, [address] [place], [place] [address], Technical component was [facility] performed at ([facility], = 3073) Department of Pathology, [address] [place], [place] [address], Professional component [facility]'s was performed at ([facility], code = 2779) Department of Pathology, [address] [place] [address], [facility] [id number] 12:40:29 Test Item Value Reference Range Interpretation Comments Case Report (test code Surgical Pathology = 104) Report Case: [id number] Authorizing Provider: Ji Dowell MD Collected: 08/28/2021 11:16 AM Ordering Location: [address] Received: 08/28/2021 04:08 PM Service Pathologist: Ezequiel Palomino MD Specimen: Biopsy, Gastric, random biopsies DIAGNOSIS (test code = o3ullFQlITAvt8jiLBJjhU 3220) FuZzEwMzNcZnRuYmpcdWMx IHtccnRmMVxlcGljOTYwMV blhkUbMOVthDYaN4Uiffwm OUemIY3zNT1zuFuvwAAmuI BrLUMgTeWcn6byh854hKNm q8mhSQPOrcwkiOj1fPlyX3 3sz9K6HipaL54qjVCbMCD9 XDPbVXNecWBuTMIsCID8AO TrgKRkZ7gfMOEvXM3ugwol DYheZPhdRHTryKR2XGAzrV ErT2MyEYVjQHihGUOhqmf1 XdHzZl9dpCRmmCelVOfwNT XcDEIvRHlmPWSsUeUrM8BD WDIGVItuWnJKPM5VWEKWXJ 6GY8m1ZNJpezmavKipQUvc zM41VzTpMVEOHMYSBKsMIN VJVsNCIEkwWZ7OCZ4LBU2J PBPpGZCSZ3TLAQwHMCnuOQ 4JN9VDVzHrW3iMC51IQjCU LMOEYtyBSQQrhXJnGX0gDN QEBWLVSqQUOHFEKUsYEL5D SRVDHGVUYHHbwa90UXF7Lz Jla6W2OMP0AVZnCILet4kw ZGVmbGFuZzEwMzNcZnRuYm swiVMwVXDcEsGwj3uzg800 gIBil1irJIXlNxP5sWPiSO RfhIWoJ231LLVkUJlxb7kj u7RiSJDbnYXwz8Q3ZQZMvs zszNr9bJshC34ki8L4Tner B1ygSPJpQORiL5KxOI2pPP QqNxf6KAY8NXN8DFElEURs H4LsMO4kUKAykQPeNRp8l2 bpjNdzUQNeOKN5u6fqBTao hkTsRT1itt1mxCe5a0bjqp HeNEJwZQOooORNJZVqW4Dg qOvwCz2zgAo0pMrkLvbfYI L0Hhb3JC1pdj55ydc7jFcz XLAtdgdqKsL6XUdyCKSaev xpHTm2MBvnMWVhwBK9ZONu tTCfV2XcOESbTY3rnvz2GV O7PPodTRBoWlP1QKQaxGFc BHOluGvfCDtrb308ABB7Kc PoHT1eS6Ibh5W0aS0xsEEn BOKpxHWxPwZsRRZdpd5lnN HaHVaer9YeECP7doW7zOKw mLXlIYSkHyS8UOyaOM9nct 17URRzYYI6mn4krKSjiXos zoGlrNFuSKkhS6GdZFZtt5 00OCUfW0FaZCQao9I8vyBd TaAbWVNprZP1tsZ2YMYxHW 5jfbeqr9nkAEomIQbnAHSi orR2iqS4ZVNohKMfQ9WxqW 4fXLDfTS4uxtpjt8mcCPU1 BVejWFLkFJD8VhFzFAAom0 Qnpul2UeHjo2IkjGCkOVhz W46pp562ZLJysqIdW1bdkI FpblxwbGFpblxmMFxmczI0 XHFsXGxhbmcxMDMzXGhpY2 ymZyWeEPJybIcqAQdlw0Qw XGYxXGZzMjJcdGFiXHRhYl b8FKQwzDHtAYRtJhRmU2mh zotfNtLAXOEds9osH4zfzZ GBmUMwR9OpHQqxxyXuCIrq UKciXiMfNQh0JF85DmBeOJ Bhcn19 COMMENT (test code = s9zyrCUqHEWuhJP2LaLsTI 3945) Hct5mep3HotXKgxBSwJJuo qTBmyfSlnl53ePT7rN57HH 9eIBMvUeC1JHKthzN7Ycx5 MJLfWQTwyQQkJ849b7clv5 hpwkOuwGO9fLedSFSfczge OjN1IZoqNZBgphfsPFo5IY brCLLcpHZ4NCZwwRHsW8Ds DBQkCJ8gdqx1YXQ2QLaqRP ZqAdR6IIWznUPoXSQxlZuc JXsbb236DJF5BtBgHXSpnl XcpYhhaC0hSaHqXYSUcbBw l2QbbOtrslSkd4H8THfdsi GkDCPiODvyPE1tMNZkeb4= CPT Code(s) (test code g2rpuEDkAFBqrNE1LoOdFP = 0314) Ens6jjv7RjkOReoREbVUvh gCYmnjCxra27dPG1xY93IP 5tUHMbLqU8HLJpogG7Ege9 APLhUFYkiIVgR901y5tde3 iybpKznFK4sRmoBGMnaade ZiM8PWbcQFCyvinpWIy3GP pjGZBztDU2YDGtwPNwI2Lu FRQrAK7vezy0GPL3NIdtUO HnZfM9XKNsvOPiEBZwsLuv VSsvo606KQI4KeAmCFJmqf DeyFwibE4yLfRbKCS6CZSe NVxwYXJ9 CLINICAL HISTORY (test a8cpaLDxJDAdnQC3YyOfFS code = 3356) Ybw7zib6FmwZHygTPfUIwb vFZudxRjtw44tTE2bW40QS 8pHAJlIgD2MYAkqgM6Ghj2 JEYjNULhyDAeN497f8lwd4 ithsMpfGJ9eJfdAKLurktx YqU2UQnaQAMhdxtsLHp5SO pmGFIuuHT4CFKikVIeM6Zi BECzOO2zlhn1RLI7JKrqXG SgQpH0AGKrbXAeVFXhsAxg LSyqs894KAX6ZeHpNAOcuu OqrGrlcN8aNmRhSINFokJt lPLbMAQdt4HsF6gqiHEqDX H8uCWdfMMlcX== GROSS DESCRIPTION (test s2brwCXxOUPnsXAEZHNqYs code = [id number]) cgukGdSBPdwNKbP9Sqwgep YFwlDO5dJW5bbZoeyWOcxV QjMD1LIMBnLnAxTUNwdZIj yuKwUaIeCRUmrIUllUL4TA XeQW1hxculUTplHTqwELWx voT2VDUztGGiN4FuYUPrTM 0fpuguNQE2ZDrjwL1jecPI ZydmGf0knQVtjMmoKpGuOa NoYXJzZXQwXGZuaWwgQXJp VRm5xG4CHetbB68rc7G2Yz g1EDBxJZNfY4ZzCV4lQKZd mICjX76WCmqzUQM9DHGDDx inERSpBT5Hn8shTXPdcLEk HAP9WYwfePChRXNnQQVxXS e6JVBtSKcwmKSwMF9otBzt OnggoMvgu3HmrMGyHXcdRN YaZXQtSQtwDZHpMQ0FKkWc GIZjRUH0SjEkQPh6UBt2AE 9CRpIfJZTnIUG2WMIcHwOz LQg6OYbsHZ2FXMH6SQLrQn zlONL1DIIzPGAhXJItPnPj XGYgQXJpYWwgXFxmbCBcXG 8yeVjrwVOunoSIYqMZdP5p o8xlZCdsa5QivDXaBINoql ANClxlcGljTmVzdERvYzEg DQpcbHRycGFyXGxpbjBccm luMCANClxsdHJjaFxjZjFc ZnMyMCBSZWNlaXZlZCBpbi Cya6HcOXisgbMkOURqsUGj IHdpdGggdGhlIHBhdGllbn ZwK4P0eeYlTN3aLEHxLPEk R6PcDSTbF54lLGSuhO1aUQ SlTD1jSJi5BDEeLGWsRnxk XvoedSI7THXfYWH5okiaQb StqtRnI01em5xfoMVrx2Ae ONE5EDnjz6ffrZaoVPKoLP m2JnNpgwI3ulZkXOSodBcl URMjZFc6BbEgxcK7kDQiwO DxWjGoG68xyqVaDD8mORF1 jupoMpYcHzLpdJ5bLY43VC YnTRxtAGrtYCQ3LRB9FUFc aMXlm1qvlb5mPDQaLWClgM OjxA6idwDcedXcfYJntUV4 XCFrfB5zsR66evGxmqXsQU UtZOD5OGHYFN1pgYqsPWAm bGluZSBFUywgcmVzaWRlbn ZjyAAyNQ5OXCEmnjTMPtan ZjBcZnMyMiANClxwbGFpbl xlcGljTmVzdERvYzBccGxh pU81MGXtoKLpHEY3ZS9cJR TpnchjQPSmAGAmIWQ9AFpg eG17yGLjWKFvOUWihIZewI 4PWRFbWDQ4LDzdpH40hDAy YH6NXQBsVVA0ANYayBMeWP Q9KU0waJ6DdP== MICROSCOPIC DESCRIPTION i9eqgVVcMWXkpUY3AmEeBM (test code = 3371) Pyz4jqa1XnnPNepHHdWMnr wCSbanBcte88nJT1zF56UR 7uONNaMrI8OIIwryR8Ggi9 LBWtARVlbGDoE005l2mmm2 vonmDfnXA7vRruLLBoeeyh TbD3FCssOGEggimuKDt8IC dlSVUodUE7QJSukBJnL6Ha XUXiAE1ltpv4EVZ8SDpeMK QzYcH3KSOynSIaIXYmvMbt ODecp434QNT4CyKdBVMgkz UhdZxfbZ0uYuFgRZMYVOMb h3DhBWPwYEPmho2= Gross assessment was [facility] performed at ([facility], = 2777) Department of Pathology, [address] [place] [address], Technical component was [facility] performed at ([facility], = 2778) Department of Pathology, [address] [place] [address], Professional component [facility] was performed at ([facility], code = 2779) Department of Pathology, [address] [place] [address], [facility] [id number] 12:40:29 Test Item Value Reference Range Interpretation Comments Case Report (test code Surgical Pathology = 104) Report Case: [id number] Authorizing Provider: Ji Dowell MD Collected: 08/28/2021 11:16 AM Ordering Location: [address] Received: 08/28/2021 04:08 PM Service Pathologist: Ezequiel Palomino MD Specimen: Biopsy, Gastric, random biopsies DIAGNOSIS (test code = f3xrgEKcRLGej8weLOHoxZ 3220) FuZzEwMzNcZnRuYmpcdWMx IHtccnRmMVxlcGljOTYwMV rhahLtJBHloDUjS0Fcckss VColXK3jMD6liPzxpOFdiV VbNRYzUdJct2vyn331hMRv c9gpKCSUlfomoSx3gXviT7 6te4P7TdbbZ15ftHIdTFN0 LPSqZRGyyWUiTQRbKKK9WF MdtNUnR7obDLBuBR3spten MHqzWPnnNYWbcJS5VVDhkR FsZ4MoQXFkVQudUUCmcuz9 FyKcWc4cdGOwqMyjRIpfTW UmEOUfLUhyWWLjFkPqA9LA BVIGDPkeWhMIXE3NMYXPMH 2OD2l9FMFzyrgcjNjxBPyq fD07PmDvKRBSXAZAHEfVOS NZYgEZENoyJP1USL6TYZ2T LUJeDGZUN6UKGYxSXRswPF 7MY5OVGqNzQ2kRA37EXtET QZAMDsvNFLBadNJlFI7fTP APOKMSFkRAWXHUHSrOJG3U QQNACFBXSWCigt65XXP6Lo Lay6P4ZZD1PVNcSSAyz9az ZGVmbGFuZzEwMzNcZnRuYm uyqQYtOQJrByDac2bmc024 qUQxa0ovWKVhXnR4eKChSP JcaZLyD444SUKqAAbmf3ef c9QaYOQvtNMwy4W6ZBSWdr xblJw3gNnbI73oo4E9Kxlk T9atYQJaQFPyD3ZsOO2qMC TmRhm8CJK4IQD3VWOiYCUa J6ZtVV5xZMXbiKBcPOj5r8 ehhThcNJDlXOB2r3ivYJdf juByGZ7hkf6nfGz3d4wymd UrXTGqSCKjhHOXUWEdL9Rk fCwgIn9upRv4nFtwZuijHI Z6Crp1KK3muy59pdn9uAdc CXXphlriByJ0EEmiIGNpry zfZQi9IYpwDPBluRW0SLFt qXMkM4PlFZZiYC0xvem2KJ R3JPaeNTGjWyX0HUKmlALo ZYJwrDitCTpnm981IKY1Tu HlAB7zP5Cjl1S7fZ2noXHc GGQmrQVbDfBlDSOyex1kfG SbGLaap3UwXOF1pfY1lURe yQMuRYCnWtC5ZQfwUU1tpk 12QVTtZMB3ft8obZSbmNvn gnQdqBDcVXejU4AjDCFda5 46AHDvM8FdVFYgj4K1icZf MfTpUFSosDG6ujH6EILpAU 8npbcyl5eqMAtjFQnkLAXg xwP3cbX1BMRtqLImV9VymV 2pGSDxAK3kxaqon9ojQGF7 SCvbBPBbGWW6SaJhBZQdy2 Zacfk3HbEyr5GfzUXgPKmn R32an191WYCfraStT5xiuG FpblxwbGFpblxmMFxmczI0 XHFsXGxhbmcxMDMzXGhpY2 bnMwDcCRDbaHosRYeti8Ws XGYxXGZzMjJcdGFiXHRhYl r2SKEdvTSmLYHdKqQwA8sq taxvTsOORNPpe1olP2uicT TBnIQkW5VlNMahdbItPHlt TGogBmBsEPa0YS85RwDlKB Bhcn19 COMMENT (test code = e1mpkJOnSPNkbME3SwLnFY 4169) Cop7uld3MgoJIyvCKvDDly fLFonlApxi54jOF8bW36QH 5dWJNqIpE1XWKgtqG9Uey0 YMPsELAxlSBdE477h4tmj8 ufkoBnaBF9rAmnVSCrqjik RyS1TKujYCUsbwhxANn3QV cyKSZjrCY0QMVruPVfT0Aj MKEdCY4suvf5GIG0ETdiAP AkNmN9XYXkyPLnYIBwvBbp MLnag418RUL0TgCuHRXtrt XssUtsyJ9gXcRlAECBezOb a8CpdXdzrgGyo9Y8WFacmr MfYWJqRFwuXL2dNVRwey8= CPT Code(s) (test code q6fxxQWrVUPxpXA6XdBcPL = 3357) Njs8guc2OgiTZrhWMcLSnv rGJhoaPgxq20bZT7kJ05UM 7fSZYlLmN2AXHowgT7Bis4 PXFbITRyqHPyM466z4ucs2 bzkxLbgTW6aFypNKStoznk RfD0BQkyUNDmvdjiOXo9IY ljXYLsgNH5NHJroICwZ7Ep ZTVdTW7jlvk0ABJ1VGffEV WsRfP6FZIhyKBkTMWosYqz TNdlb194HTX6DbVnDLEhdo MneRprfS4uUmVrXGB3YZFu NVxwYXJ9 CLINICAL HISTORY (test w7ejaGPoVWYanAW1ZwFkER code = 3356) Flx0yii0GreXNofLNyOOgj dDTigzZsix82wQJ9yB16FF 0dSBOsDcZ8NFKxehA1Myw3 OECzMPCybIUqY133a7iht8 fdqoEhpVD3yPnxFCSqbygf SpC5MUizGXMhatarDHv4MM ysDIMmnCC6DBRcqVCbE4Wv LHSwXO6ibzu5BOG2CKuwEH UtNvP6PHAvbBWgMDIkhJys RQlvl664NJU8VnRzDAKwsk BnaCphiG9mNzWvGUOQtkXf aWCbCLIis3GaJ9ufwXSdDT M0zBZjaNLdyO== GROSS DESCRIPTION (test u9debQCpRYNymXCACKCfKy code = 1515702031) zkbzYiLWOkwCSdQ6Xfuben BVnmEJ0jOO4rhKgyoEIseA DePO1XMZFzGwHyEOOaoSEm xiFvMpPaRXFscPFkwUX6XU RzJU9ditjfXWbkEZzfRYAo rfH7GPHjqALvQ8XeYMUhCB 4tfseoVUG5PPtnrZ9nfzRH UcbkPg7oaMQgyIfsMeYvBx NoYXJzZXQwXGZuaWwgQXJp JSi2pT4NDigfW89zg0N3Ho e9EKKdCDIdT7MxPQ3nQTNd qWTzM74DQybnJRX1PJFUFh bkMWMeXT6Rc1crMXChwQFc VGS9DOcjyQHjZONxQJJcNZ p1HENbHIhxuBZxNO2gmJor AumyaMyes7MtwZKqKUuiNW UqAXBbXOydNSKkJS6NJgLc XRWvARF6BxTfEQu3HGe0MX 7KWpAzRGHpNAO6YQFfQwWo SJn1TOadZB6OBVS3KKQvTd cgARG0JCXkKDJwXMVwPdNf XGYgQXJpYWwgXFxmbCBcXG 6oyAuijDYzjePEFzAKbV2v p8fmDWkkz4OhwTKoQVAmht ANClxlcGljTmVzdERvYzEg DQpcbHRycGFyXGxpbjBccm luMCANClxsdHJjaFxjZjFc ZnMyMCBSZWNlaXZlZCBpbi Piw6GfGYwxbnPjXDTwcFUi IHdpdGggdGhlIHBhdGllbn LcJ2X7tqVvBR7jXFJcFDJf G6DlMBWuI70vJSUeaY5dFQ OzWZ7zCXb5VARqUBSaPinr KapmeXZ0HBVrFWB8tqxuNi InbyGmF26sw8mhvCDcw8Cu RZZ7LDiwb9bdoYtsDJFxPL u1LxDhfpQ1glOkWIFnrXjk CMCgZZv3CxTfycK2jUJhkQ YbOfPpD83mprBjTJ3cPIV0 svwyRkFwNvQxcD8fPO50PP JlELheXLmqYJG6URZ2TEEl iIHhf6asaq4pOWGdEITnhK LdvT0fkeDgpxMewLLpcCU8 VILwlP5tcY06cbGuleGeSX OuZRF1DFVXIX9ggBakCFOj bGluZSBFUywgcmVzaWRlbn UwsQPrBL9AGYCgmzGVYsgp ZjBcZnMyMiANClxwbGFpbl xlcGljTmVzdERvYzBccGxh kQ55LQIbcGLpDXC2MG5pVV KtsyoyQJPkBNPsNPP1JOsc nR31iOYfEIWzVSXqaTIfuZ 3DYUZvIDN7LNxxyI30fWCu FS3ZAHQgJBT3AYEvbMZrVG J8AL5mhU1ObX== MICROSCOPIC DESCRIPTION i8vaxARwXCFqcME8YeKmEL (test code = 3371) Jop3yix5UsmAOyjUMaFKsb uTExjsYest97iJR8oI99NE 3xCNFnTtC7IUGtweY9Mhm5 CZAtAMWrjBZwK108n2gea7 ujgfZixPQ6qMcnIKShvwqm KrU3HBxnIQCulgawOKt2IU hrMBFguIK0DRHljDRzJ4Fn HKEuMN3ivkm6JTI0WIwnYM PoVkG6YOVprMMgPVQxeXvk UPlhz868KFM6WmDuVFFwtt MtpNbygR6hMuXiOBGCJQSe a2OsRUWvFCVprm3= Gross assessment was [facility] performed at (test code [facility], = 1588) Department of Pathology, [address] [place] [address], Technical component was [facility] performed at ([facility], = 2778) Department of Pathology, [address] [place] [address], Professional component [facility] was performed at ([facility], code = 2779) Department of Pathology, [address] [place] [address], [facility] [id number] 12:40:29Surgical Pathology Report Case: [id number] Authorizing Provider: Ji Dowell MD Collected:08/28/2021 11:16 AM Ordering Location: [address] Received: 08/28/2021 04:08 PM Service Pathologist: Ezequiel Palomino MD Specimen: Biopsy, Gastric, random biopsies STOMACH, RANDOM, BIOPSY:- REACTIVE ANTRAL AND OXYNTIC MUCOSA WITH INACTIVE CHRONIC GASTRITIS- HELICOBACTER IS NOT SEEN Signing Pathologist Direct Phone Line: [phone] signed by Ezequiel Palomino MD on 08/29/2021 at 12:40 PMEndoscopy report was reviewed. [id number], unspecified typeA. Biopsy, Gastric.Received in formalin labeled with the patient's name, medical record number and "biopsy, gastric" and consists of 5 y ellow-pinedo to red-pinedo tissue fragments measuring 0.3 to 0.5 cm in greatest dimension. The specimen issubmitted in toto in cassette A1.ES, residentPerformed [facility] [place] [address] [place] [address], [facility], Department of Pathology, [address] [place] [address], [facility], Department of Pathology, [address] [place] [address], WRATDSLYJN AND [id number] 08:28:24 Test Item Value Reference Range Interpretation Comments HEMOGLOBIN (BEAKER) (test code = 7.0 GM/DL 13.7-17.5 L 410) HEMATOCRIT (EDENILSON) (test code = 21.8 % 40.1-51.0 L 411) Horse Trainer ID - [id number]-CoV2/RT-PCR (Asymptomatic ONLY)2021-08-29 01:40:55 Test Item Value Reference Range Interpretation Comments SARS-COV2/RT-PCR (test Negative Negative code = 17140-3) AJ (test code = AJ) Negative result [...] the Act. Testing was performed using the Savage IO SARS-CoV-2 assay. Fact Sheet for Healthcare Providers:https://www.aislinn ayon/antonio/RT SARS-CoV-2 HCP Fact Sheet 51-674136.pdf Fact Sheet for Healthcare Patients:https://www.placido munguia/antonio/RT SARS-CoV-2 Patient Fact Sheet EN 51-976130N2.pdf Lab Interpretation Normal (test code = 40234-0) [facility]As[facility]omatic ONLY)2021-08-29 01:40:55 Test Item Value Reference Range Interpretation Comments SARS-COV2/RT-PCR (test Negative Negative code = 01539-7) AJ (test code = AJ) Negative result [...] the Act. Testing was performed using the Blanco SARS-CoV-2 assay. Fact Sheet for Healthcare Providers:https://www.aislinn ayon/antonio/RT SARS-CoV-2 HCP Fact Sheet 51-124442.pdf Fact Sheet for Healthcare Patients:https://www.placido hughes.blanco/antonio/RT SARS-CoV-2 Patient Fact Sheet EN 51-840392E5.pdf Lab Interpretation Normal (test code = 51021-4) [facility] (Asymptomatic ONLY)2021-08-29 01:40:55 Test Item Value Reference Range Interpretation Comments SARS-COV2/RT-PCR (test Negative Negative code = 09752-9) AJ (test code = AJ) Negative result [...] the Act. Testing was performed using the Savage IO SARS-CoV-2 assay. Fact Sheet for Healthcare Providers:https://www.aislinn ayon/antonio/RT SARS-CoV-2 HCP Fact Sheet 51-973333.pdf Fact Sheet for Healthcare Patients:https://www.placido munguia/antonio/RT SARS-CoV-2 Patient Fact Sheet EN 51-331553Q9.pdf Lab Interpretation Normal (test code = 83361-1) [facility] ([facility])2021-08-29 01:40:55 Test Item Value Reference Range Interpretation Comments SARS-COV2/RT-PCR (test code = Negative Negative 0471838) Negative result for this test determines that [...] 564(g) of the Act.Testing was performed using t parker Savage IO SARS-CoV-2 assay.Fact Sheet for Healthcare Providers:https://www.[employer].blanco/antonio/RT SARS-CoV-2 HCP Fact Sheet 51- 340494.pdfFact Sheet for Healthcare Patients:https://www.[employer].blanco/antonio/RT SARS-CoV-2 Patient Fact Sheet EN 51-669650N1.pdfMELLY GUZMANUAMIHS7801-12-23 01:17:15 Test Item Value Reference Range Interpretation Comments PARATHYROID HORMONE INTACT 478.9 pg/mL 8.5-72.5 H (BEAKER) (test code = 577) Horse Trainer ID Savanah SQUIRES MHEMOGLOBIN AND [id number] 00:56:51 Test Item Value Reference Range Interpretation Comments HEMOGLOBIN (BEAKER) (test code = 7.3 GM/DL 13.7-17.5 L 410) HEMATOCRIT (BEAKER) (test code = 23.0 % 40.1-51.0 L 411) Horse Trainer ID - ShalaHEPATITIS B SURFACE [id number] 19:59:22 Test Item Value Reference Range Interpretation Comments HEPATITIS B SURFACE ANTIGEN (2) Nonreactive Nonreactive (BEAKER) (test code = 2585) Specimen is considered negative for HBsAg.HEMOGLOBIN AND [id number] 18:47:46 Test Item Value Reference Range Interpretation Comments HEMOGLOBIN (BEAKER) (test code = 7.7 GM/DL 13.7-17.5 L 410) HEMATOCRIT (BEAKER) (test code = 25.1 % 40.1-51.0 L 411) Horse Trainer ID - [id number] 10:35:30 Test Item Value Reference Range Interpretation Comments PHOSPHORUS (BEAKER) (test code = 6.0 mg/dL 2.3-4.7 H 604) Horse Trainer ID - TAVIA QTFWQYINQ0258-01-21 03:09:01 Test Item Value Reference Range Interpretation Comments FERRITIN (BEAKER) (test code = 114.32 ng/mL 5.00-275.00 361) Horse Trainer ID Savanah SQUIRES MVITAMIN B12 AND [id number] 03:09:01 Test Item Value Reference Range Interpretation Comments VITAMIN B12 933 pg/mL 213-816 H (BEAKER) (test code = 774) FOLATE (BEAKER) 14.50 ng/mL See_Comment [Automated message] (test code = 362) The system which generated this result transmitted ref erence range: >=7.00. The reference range was not used to interpr et this result as normal/abnormal . Horse Trainer ID - TAVIA MBASIC METABOLIC [id number] 02:39:25 Test Item Value Reference Range Interpretation [...] S NOT APPLICABLE FOR DIALYSIS PATIEN TS. Horse Trainer ID - TAVIA EFFIE, TIBC, % SAT. (WITHOUT FERRITIN)2021-08-28 02:38:43 Test Item Value Reference Range Interpretation Comments IRON (BEAKER) (test code = 547) 53.0 ug/dL 40.0-160.0 TOTAL IRON BINDING CAPACITY 301 ug/dL 250-450 (BEAKER) (test code = 769) IRON % SATURATION (2) (BEAKER) 18 % 20-55 L (test code = 2590) Horse Trainer ID - TAVIA MCBC W/PLT COUNT & AUTO [id number] 02:36:15 Test Item Value Reference Range Interpretation [...] (BEAKER) (test code = 2801) HEMOGLOBIN AND [id number] 02:17:20 Test Item Value Reference Range Interpretation Comments HEMOGLOBIN (BEAKER) (test code = 6.2 GM/DL 13.7-17.5 L 410) HEMATOCRIT (BEAKER) (test code = 20.0 % 40.1-51.0 L 411) HIGH SENSITIVITY TROPONIN [id number] 18:35:46 Test Item Value Reference Range Interpretation Comments HIGH SENSITIVITY 42 pg/ml See_Comment H [Automated message] TROPONIN I (test code = The system which [id number]) generated this result transmitted ref erence range: <=35. Th e reference range was not used to int erpret this result as normal/abnormal . Horse Trainer ID - BSThe CHIMNEY REPAIRER STAT High Sensitivity Troponin-I results should be used in conjunctionwith other diagnostic information such as ECG, clinical observations and information, and patient symptoms to aid in the diagnosis of VT.HIGH SENSITIVITY TROPONIN [id number] 14:24:44 Test Item Value Reference Range Interpretation Comments HIGH SENSITIVITY 42 pg/ml See_Comment H [Automated message] TROPONIN I (test code = The system which [id number]) generated this result transmitted ref erence range: <=35. Th e reference range was not used to int erpret this result as normal/abnormal . Horse Trainer ID - BSThe CHIMNEY REPAIRER STAT High Sensitivity Troponin-I results should be used in conjunctionwith other diagnostic information such as ECG, clinical observations and information, and patient symptoms to aid in the diagnosis of VT.BASIC METABOLIC [id number] 14:18:04 Test Item Value Reference Range Interpretation [...] S NOT APPLICABLE FOR DIALYSIS PATIEN TS. Horse Trainer ID - BSPROTHROMBIN TIME/[id number] 14:09:01 Test Item Value Reference Range Interpretation Comments PROTIME (BEAKER) 15.5 seconds 11.9-14.2 H (test code = 759) INR (BEAKER) (test 1.25 See_Comment [Automat ed message] code = 370) The system Dormir generated this result transmitted ref erence range: <=5.90. The reference range was not used to int erpret this result as normal/abnormal . RECOMMENDED COUMADIN/WARFARIN INR THERAPY RANGESSTANDARD DOSE: 2.0 - 3.0 Includes: PROPHYLAXIS for venous thrombosis, systemic embolization; TREATMENT for venous thrombosis and/or pulmonary embolus.HIGH RISK: Target INR is 2.5-3.5 for patients with mechanical heart valves.CBC W/PLT COUNT & AUTO [id number] 14:06:24 Test Item Value Reference Range Interpretation [...] = 2801) Type and Screen - ONCE [id number] 13:36:51 Test Item Value Reference Range Interpretation Comments ABO & RH (test code B Positive Performe d at [facility] = 20) Laboratory [facility] [place], [place] [address]Toll Free: [phone] A No. [id number] IAT (test code = Negative Performed a t [facility] 1185) Laboratory [facility] [place], [place] [address]Toll Free: [phone] A No. [id number] [facility] Only)2021-08-27 13:35:31 Test Item Value Reference Range Interpretation Comments ABO & RH (test code B Positive Performe d at [facility] = 20) Laboratory [facility] [place], [place] [address]Toll Free: [phone] A No. [id number] [facility] Hospital[facility]MINAL [id number] 11:54:59 Test Item Value Reference Range Interpretation Comments NT-proBNP (test code 698621 pg/mL See_Comment H [Autom ated = 7194985735) message] The system which generated this result transmitted reference range : <=125. The reference range was not used to interpret this result as normal/abnormal . AJ (test code = AJ) Biotin has been reported to cause a negative bias, interpret results relative to patient's use of biotin. Lab Interpretation Abnormal (test code = 31422-7) [facility]. METABOLIC PANEL (79772)2021-08-27 11:47:50 Test Item Value Reference Range Interpretation Comments NA (test code = 135 mmol/L 135-145 7328950279) K (test code = 5.0 mmol/L 3.5-5.0 7201078981) CL (test code = 97 mmol/L 98-108 L 2010291697) CO2 TOTAL (test code = 26 mmol/L 23-31 4412876482) AGAP (test code = 2-16 8350057305) BUN (test code = 52 mg/dL 7-23 H 1576527683) GLUCOSE (test code = 106 mg/dL 70-110 1508249111) CREATININE (test code = 7.30 mg/dL 0.60-1.25 H 9326158419) TOTAL BILI (test code = 0.4 mg/dL 0.1-1.7 0540812391) CALCIUM (test code = 7.8 mg/dL 8.6-10.6 L 1575717465) T PROTEIN (test code = 6.5 g/dL 6.3-8.2 6461201771) ALBUMIN (test code = 3.5 g/dL 3.5-5.0 1935696307) ALK PHOS (test code = 44 U/L 34-122 9842920790) ALTv (test code = 17 U/L 5-50 1742-6) AST(SGOT) (test code = 27 U/L 13-40 1001755135) eGFR (test code = mL/min/1.73m2 4559879386) AJ (test code = AJ) Association of [...] tests). Lab Interpretation Abnormal (test code = 22211-8) [facility] [id number] 11:30:28 Test Item Value Reference Interpretation Comments Range TROPONIN I (test 0.060 ng/mL See_Comment H [Automated code = 4889519922) message] The system which generated this result [...] biotin. Lab Interpretation Abnormal (test code = 96807-9) [facility]ACT[facility] [id number] 11:18:43 Test Item Value Reference Range Interpretation Comments APTT Patient (test See_Comment [Automat ed code = 3173-2) message] The system which generated this result transmitted reference range : 23 - 38 Seconds . The reference range was not used to interpr et this result as normal/abnormal . AJ (test code = AJ) The [facility] patient population mean normal value for aPTT is 30 seconds. Lab Interpretation Normal (test code = 00999-8) [facility]LIP[facility]22-[facility] 11:18:28 Test Item Value Reference Range Interpretation Comments LIPASE (test code = 1400725545) 124 U/L 0-220 Lab Interpretation (test code = Normal 69263-6) [facility] HospitalPROTHROMBIN TIME / [id number] 11:16:43 Test Item Value Reference Range Interpretation [...] tions. Lab Interpretation (test Normal code = 78193-9) [facility] HospitalCB WITH [id number] 11:08:43 Test Item Value Reference Range Interpretation Comments WBC (test code = See_Comment [Automated 6690-2) message] The sy stem which generated this result transmitted reference range : 4.20 - 10.70 10*3/?L. The reference range was not used to interpret this result as normal/abnormal . RBC (test code = See_Comment L [Automated 959-8) message] The sy stem which generated this [...] RDW-SD (test code = 48.9 fL 38.5-51.6 56454-1) RDW-CV (test code = 16.0 % 12.1-15.4 H 788-0) PLT (test code = See_Comment [Automated 777-3) message] The sy stem which generated this result transmitted reference range : 150 - 328 10*3/ ?L. The reference r yazan was not used to interpret this result as normal/abnormal . MPV (test code = 11.2 fL 9.8-13.0 85650-2) NRBC/100 WBC (test See_Comment [Automat ed code = 9104621835) message] The system which generated this result transmitted reference range : 0.0 - 10.0 /100 WBCs. The refer ence range was not u sed to interpret th is result as normal/abnormal . NRBC x10^3 (test code <0.01 See_Comment [Auto mated = 1115743739) message] The s ystem which generated this result transmitted reference range : 10*3/?L. The reference range was not used to interpret this result as normal/abnormal . GRAN MAT (NEUT) % 76.2 % (test code = 770-8) IMM GRAN % (test code 0.40 % = 3063187650) LYMPH % (test code = 10.1 % 736-9) MONO % (test code = 11.7 % 5905-5) EOS % (test code = 1.3 % 713-8) BASO % (test code = 0.3 % 706-2) GRAN MAT x10^3(ANC) 5.19 10*3/uL 1.99-6.95 (test code = 6384976340) IMM GRAN x10^3 (test 0.03 10*3/uL 0.00-0.06 code = 9534845270) LYMPH x10^3 (test code 0.69 10*3/uL 1.09-3.23 L = 731-0) MONO x10^3 (test code 0.80 10*3/uL 0.36-1.02 = 742-7) EOS x10^3 (test code = 0.09 10*3/uL 0.06-0.53 711-2) BASO x10^3 (test code <0.03 0.01-0.09 = 704-7) Lab Interpretation Abnormal (test code = 22190-7) [facility] [id number] 14:16:00Surgical Pathology Report Case: [id number] Authorizing Provider: Mack Mckoy, Collected: 07/25/2020 12:37 PM Ordering Location: [address] Received: 07/25/2020 03:25 PM Service Pathologist: Zaida Newsome MD Specimens: A) - Duodenum, random biopsy B) - Biopsy, Gastric, random biopsy A. DUODENUM , BIOPSY- GASTRIC METAPLASIA WITH REACTIVE CHANGES (SEE COMMENT)- MILD VILLOUS BL UNTING- DYSPLASIA OR MALIGNANCY NOT SEENB. STOMACH, RANDOM BIOPSY- CHRONIC INACTIVE GASTRITIS, MINIMAL-MILD- NO INTESTINAL METAPLASIA, DYSPLASIA OR CARCINOMA IDENTIIFIED- NO HELICOBACTER PYLORI LIKE ORGANISMS IDENTIFIED ON WARTHIN STARRY STAIN Signing Pathologist Direct Phone Line: [phone] ically signed by Zaida Newsome MD on 07/30/2020 at 2:16 PMIncreased intraepithelial lymphocytes, luminal parasites, aggregates of foamy macrophages in lamina propria, dysplasia or malignancy are not seen. Gastric metaplasia and reactive changes and mild villous blunting is seen and may be from peptic duodenitis or mucosal injury. Clinical correlation is recommended.82406 x 2, 65237gycszgB. DuodenumB. GastricA. Received in formalin labeled the patient's name, accession number and "duodenum" are 2 pinedo-pink tissue fragments measuring up to 0.2 cm in greatest dimension which are filtered and submittedin toto in A1.B. Received in formalin labeled the patient's name, accession number and "gastric biopsy" are 3 pinedo-pink tissue fragments measuring up to 0.3 cm in greatest dimension which are filtered and submitted in toto in B1.CARLA Weaver, HT (ASCP)Performed.The interpretation of this case included the use of immunohistochemistry or special stains.Control Slides Examined: In-house known positive controls were evaluated along with the test tissue. These control slides run alongside of the patients sample show appropriate staining. Internal positive and negative controls when available are evaluated Immunohistochemistry technical testing was performed at [facility] where it was developed and its performance characteristics were determined. It hasnot been cleared or approved by the U.S. Food and Drug Administration. The FDA has determined that such clearance or approval is not necessary. The test is used for clinical purposes. It should not be regarded as investigational or for research. This laboratory is certified under the Clinical Laboratory Improvement Amendments of 1988 (CLIA-88) as qualified to perform high complexity clinical laboratory testing.[facility], [address] [place] [address], [facility], [facility] of [facility]ology, [address] [place] [address], [facility]kuhdeGlendale [facility], Department of Pathology, [address] [place] [address], KZUZMGCEH B SURFACE [id number] 06:06:00 Test Item Value Reference Range Interpretation Comments HEPATITIS B SURFACE ANTIGEN (2) Nonreactive Nonreactive (BEAKER) (test code = 2585) Specimen is considered negative for HBsAg.BASIC METABOLIC [id number] 05:21:00 Test Item Value Reference Range Interpretation [...] S NOT APPLICABLE FOR DIALYSIS PATIEN TS. Horse Trainer ID - PIAYA LCBC W/PLT COUNT & AUTO [id number] 04:30:00 Test Item Value Reference Range Interpretation [...] 0-1 PERCENT (BEAKER) (test code = 2801) [id number] 08:03:00 Test Item Value Reference Range Interpretation Comments MAGNESIUM (BEAKER) (test code = 2.2 mg/dL 1.6-2.6 627) Horse Trainer ID Savanah GAGE [id number] 08:03:00 Test Item Value Reference Range Interpretation Comments PHOSPHORUS (BEAKER) (test code = 6.2 mg/dL 2.3-4.7 H 604) Horse Trainer ID Savanah GAGE LHEPATIC FUNCTION [id number] 08:03:00 Test Item Value Reference Range Interpretation [...] (test code = 19 U/L 6-55 347) Horse Trainer ID Savanah GAGE LBASIC METABOLIC [id number] 08:03:00 Test Item Value Reference Range Interpretation [...] S NOT APPLICABLE FOR DIALYSIS PATIEN LULA. Horse Trainer ID - PIAYA LSARS-COV2/RT-PCR ([facility])2020-07-24 07:27:00 Test Item Value Reference Range Interpretation Comments SARS-COV2/RT-PCR (test Negative Not Detected, Negative, code = 9562936) See external report for linked test SARS-COV-2 PERFORMING LAB [facility] AMELIA (test code = 2667365) Negative result for this test determines that [...] of the Act.Fact Sheet for Healthcare Prov iders:https://www.[employer]/sites/default/files/product/documents/Fact_Sheet_HC _Xwrzviyze_Vosh_SQLK-OiH-8.pdfFact Sheet for Healthcare Patients:https://www.[employer]/sites/default/files/product/docume nts/Mbzg_Asctz_Arixmlwm_Ceke_XCZR-CeO-7.pdfPerforming Laboratory:[facility], [place] [address]NSS W/PLT COUNT & AUTO [id number] 06:56:00 Test Item Value Reference Range Interpretation [...] 0-1 PERCENT (BEAKER) (test code = 2801) [id number] 04:39:00 Test Item Value Reference Range Interpretation Comments FERRITIN (BEAKER) (test code = 545.58 ng/mL 5.00-275.00 H 361) Horse Trainer ID - TAVIA MVITAMIN B12 AND [id number] 04:39:00 Test Item Value Reference Range Interpretation Comments VITAMIN B12 (BEAKER) 1058 pg/mL 213-816 H (test code = 774) FOLATE (BEAKER) 6.60 ng/mL See_Comment L [Automated message] (test code = 362) The system which generated this result transmitted ref erence range: >=7.00. The reference range was not used to interpr et this result as normal/abnormal . Horse Trainer ID - TAVIA MPERIPHERAL BLOOD SMEAR - HOLD [id number] 02:10:00 Test Item Value Reference Range Interpretation Comments PERIPHERAL SMEAR SAVE (BEAKER) (test Yes. code = 1815) [id number] 22:30:00 Test Item Value Reference Range Interpretation Comments HAPTOGLOBIN (BEAKER) (test code = 155 mg/dL 14-258 366) Horse Trainer ID - BSIRON, TIBC, % SAT. (WITHOUT FERRITIN)2020-07-23 22:30:00 Test Item Value Reference Range Interpretation Comments IRON (BEAKER) (test code = 547) 43.0 ug/dL 40.0-160.0 TOTAL IRON BINDING CAPACITY 208 ug/dL 250-450 L (BEAKER) (test code = 769) IRON % SATURATION (2) (BEAKER) 21 % 20-55 (test code = 2590) Horse Trainer ID - [id number] 22:29:00 Test Item Value Reference Range Interpretation Comments MAGNESIUM (BEAKER) (test code = 2.2 mg/dL 1.6-2.6 627) Horse Trainer ID - BSLACTATE DEHYDROGENASE (LDH)2020-07-23 22:29:00 Test Item Value Reference Range Interpretation Comments LACTATE DEHYDROGENASE (BEAKER) (test 193 U/L 125-220 code = 635) Horse Trainer ID - BSCOMPREHENSIVE METABOLIC [id number] 22:29:00 Test Item Value Reference Range Interpretation [...] S NOT APPLICABLE FOR DIALYSIS PATIEN TS. Horse Trainer ID - BSRETICULOCYTE [id number] 22:16:00 Test Item Value Reference Range Interpretation Comments RETICULOCYTE COUNT PCT (BEAKER) (test 1.8 % 0.5-1.8 code = 575) Horse Trainer ID - 6000CBC W/PLT COUNT & AUTO [id number] 22:16:00 Test Item Value Reference Range Interpretation [...] PERCENT (BEAKER) (test code = 2801) ELECTROCARDIOGRAM [id number] 20:33:54Result approved by Sara Reynaga MD on 06/12/20CT, CHEST, WITHOUT IV [id number] 08:39:00FINAL REPORT CT of the chest, abdomen [...] MDReport Verified Date/Time: 11/16/2019 08:39:14 Reading Location: [facility] C013X Ortho Consult Reading Room CT, [id number] 08:39:00FINAL REPORT CT of the chest, abdomen [...] MDReport Verified Date/Time: 11/16/2019 08:39:14 Reading Location: [facility] C013X Ortho Consult Reading Room NEEDLE ASPIRATE BY [id number] 10:42:00Medical Cytology Report Case: [id number] Authorizing Provider: Kalen Hurtado MD Collected: 07/28/2018 1400 Ordering Location: [facility] PERIOPERATIVE Received: 07/28/2018 1424 SERVICES Pathologist: Evita Dhillon MD Specimen: Lymph Node, Lower Paratracheal, Right, Station 4R LYMPH NODE, LOWER PARATRACHEAL, RIGHT, STATION 4R EBUS FNA AND CORE BIOPSY BY CLINICIAN (CYTOSPINS AND CELL BLOCK OF ASPIRATE): - NEGATIVE FOR MALIGNANCY - ANTHRACOTIC LYMPH NODE FRAGMENTS Signing Pathologist Direct Phone Line: [phone] signed by Evita Dhillon MD on 08/01/2018 at 10:42 AMPlease seecases [id number] and [id number].Microscopic slides are received for examination and review on 08/01/2018.91672, 71683B5Fsczdropuut lymphadenopathy, history of T-cell lymphoma currently in remissionLYMPH NODE, LOWER PARATRACHEAL, RIGHT, STATION 4R EBUS FNA37 mls in cytorich red; 2 cytospins, cell block (A3)Core biopsy: Multiple fragments measuring 7x 0.4cm, 2x 0.5 cm, 0.7 cm, 1.2 cm red (A2)Collected: 963503Kjfmjonu: 425502Vdcwfzowj.The interpretation of this case included the use of immunohistochemistry orspecial stains. Immunohistochemistry technical testing was performed at [facility] where it was developed and its performance characteristics were determined. It has not been cleared or approved by the U.S. Food and Drug Administration. The FDA has determined that such clearance or approval is not necessary. The test is used for clinical purposes. It shouldnot be regarded as investigational or for research. This laboratory is certified under the Clinical Laboratory Improvement Amendments of 1988 (CLIA-88) as qualified to perform high complexity clinical laboratory testing.[facility] [place], [address] [place] [address], [facility], Department of Pathology, [address] [place] [address], AsgrkhGlendale [facility], Department of Pathology, [address] [place] [address], EPGU NEEDLE ASPIRATE BY [id number] 10:41:00Medical Cytology Report Case: [id number] Authorizing Provider: Kalen Hurtado MD Collected: 07/28/2018 1356 Ordering Location: [facility] PERI[facility] Received: 07/28/2018 1424 SERVICES Pathologist: Evita Dhillon MD Specimen: Lymph Node, Subcarinal, Station 7 LYMPH NODE, SUBCARINAL, STATION 7 EBUS FNA AND CORE BIOPSY BY CLINICIAN (CYTOSPINS AND CELL BLOCK OF ASPIRATE): - NEGATIVE FOR MALIGNANCY - ANTHRACOTIC LYMPH NODE FRAGMENTS Signing Pathologist Direct Phone Line: [phone] signed by Evita Dhillon MD on 08/01/2018 at 10:41 AMPlease see cases [id number] and [id number].Microscopic slides are received for examination and review on 08/01/2018.04179, 03031Q3Ljwoycvucgi lymphadeno nati, history of T-cell lymphoma currently in remissionLYMPH NODE, SUBCARINAL, STATION 7 EBUS YXG87uwm in cytorich red; 2 cytospins, cell block (A3)Core biopsy: multiple fragments measuring 1.5 x 0.8cm, 0.5 cm, 0.3 cm, 0.2 cm red (A2)Collected: 345469Yltfatuj: 936679Djk interpretation of this case included the use of immunohistochemistry or special stains. Immunohistochemistry technical testing was performed at [facility] where it was developed and its performance characteristics were determined. It has not been cleared or approved by the U.S. Food andDrug Administration. The FDA has determined that such clearance or approval is not necessary. The test is used for clinical purposes. It should not be regarded as investigational or for research. This laboratory is certified under the Clinical Laboratory Improvement Amendments of 1988 (CLIA-88) as qualified to perform high complexity clinical laboratory testing.[facility] [place] of [place], [address] [place] [address], [facility], Department of Pathology, [address] [place] [address], HeygaeGl[facility]ale [facility], Department of Pathology, [address] [place] [address], SOFG CYTOMETRY [id number] 12:41:00 Test Item Value Reference Range Interpretation Comments FLOW CYTOMETRY RESULT See Separate Report POINTER (BEAKER) (test code = 2758) FLOW CYTOMETRY AP CASE # [id number] (BEAKER) (test code = 2759) FLOW [id number] 10:53:00Flow Cytometry Report Case: [id number] Authorizing Provider: Kalen Hurtado MD Collected: 07/28/2018 1355 Ordering Location: [facility] PERIOPERATIVE Received: 07/28/2018 1653 SERVICES Pathologist: Malissa Cohen MD Specimen: Other LYMPH NODE, EBUS FINE NEEDLE ASPIRATION, FLOW CYTOMETRY:-PREDOMINANCE OF GRANULOCYTES-NO MONOTYPIC B CELL POPULATION-NO ABERRANT T CELL POPULATION-SEE COMMENT The predominance of granulocytes is suggestive of peripheral blood contamination of the sample. These results require correlation withthe morphologic and other features for full interpretation. 34085Idjcwbiouwk lymphadenopathy, History of T cell lymphoma s/p therapyLymph node FNA EBUS-guidedCD8, surface-kappa, CD56, surface- lambda, CD5, CD19, CD10, CD3, CD20, CD4, VD81Pxiijarn Viability: 98.3% Number of Events Acquired: 307784 The following populations are identified: Lymphocytes: Bright [...] developed and their performance characteristics determined by [facility] They have not been cleared or approved by the U.S. Food and Drug Administration. The FDA has determined that such clearance or approval is not necessary. It should not be regarded as investigational or for research. This laboratory is certified under the Clinical Laboratory Improvement Amendments of 1988 ("CLIA") as qualified to perform high-complexity clinical testing.EBUS FNA [id number] 16:00:00 Test Item Value Reference Range Interpretation Comments CYTOLOGY RESULT POINTER See Separate Report (BEAKER) (test code = 2629) EBUS FNA [id number] 16:00:00 Test Item Value Reference Range Interpretation Comments CYTOLOGY RESULT POINTER See Separate Report (BEAKER) (test code = 2629) COMPREHENSIVE METABOLIC [id number] 11:20:00 Test Item Value Reference Range Interpretation [...] S NOT APPLICABLE FOR DIALYSIS PATIEN TS. [id number] 10:18:00 Test Item Value Reference Range Interpretation Comments PARTIAL THROMBOPLASTIN TIME 36.1 seconds 22.5-36.0 H (BEAKER) (test code = 760) PROTHROMBIN TIME/[id number] 10:16:00 Test Item Value Reference Range Interpretation Comments PROTIME (BEAKER) (test code = 13.7 seconds 11.7-14.7 759) INR (BEAKER) (test code = 370) 1.0 <=5.9 RECOMMENDED COUMADIN/WARFARIN INR THERAPY RANGESSTANDARD DOSE: 2.0 - 3.0 Includes: PROPHYLAXIS for venous thrombosis, systemic embolization; TREATMENT for venous thrombosis and/or pulmonary embolus.HIGH RISK: Target INR is 2.5-3.5 for patients with mechanical heart valves.CBC W/PLT COUNT & AUTO [id number] 10:07:00 Test Item Value Reference Range Interpretation [...] (BEAKER) (test code = 2801) COMPREHENSIVE METABOLIC [id number] 07:46:00 Test Item Value Reference Range Interpretation [...] S NOT APPLICABLE FOR DIALYSIS PATIEN TS. [id number] 07:31:00 Test Item Value Reference Range Interpretation Comments PARTIAL THROMBOPLASTIN TIME 45.9 seconds 22.5-36.0 H (BEAKER) (test code = 760) PROTHROMBIN TIME/[id number] 07:30:00 Test Item Value Reference Range Interpretation Comments PROTIME (BEAKER) (test code = 13.7 seconds 11.7-14.7 759) INR (BEAKER) (test code = 370) 1.0 <=5.9 RECOMMENDED COUMADIN/WARFARIN INR THERAPY RANGESSTANDARD DOSE: 2.0 - 3.0 Includes: PROPHYLAXIS for venous thrombosis, systemic embolization; TREATMENT for venous thrombosis and/or pulmonary embolus.HIGH RISK: Target INR is 2.5-3.5 for patients with mechanical heart valves.CBC W/PLT COUNT & AUTO [id number] 07:22:00 Test Item Value Reference Range Interpretation [...] PERCENT (BEAKER) (test code = 2801) POCT-GLUCOSE [id number] 06:48:00 Test Item Value Reference Range Interpretation Comments POC-GLUCOSE METER 106 mg/dL 70-110 TESTED AT [facility] 6720 (BEAKER) (test code = [place] 1538) [address] BASIC METABOLIC [id number] 11:54:00 Test Item Value Reference Range Interpretation [...] PATIEN TS. CBC W/PLT COUNT & AUTO [id number] 11:37:00 Test Item Value Reference Range Interpretation [...] 0-1 PERCENT (BEAKER) (test code = 2801) [id number] 09:37:00 Test Item Value Reference Range Interpretation Comments POC-POTASSIUM 4.2 meq/L 3.6-5.5 TESTED AT [facility] C 6720 (BEAKER) (test code [facility] [address] = 1540) BUN AND [id number] 13:33:00 Test Item Value Reference Range Interpretation [...] S NOT APPLICABLE FOR DIALYSIS PATIEN TS. [id number] 13:32:00 Test Item Value Reference Range Interpretation Comments SODIUM (BEAKER) (test code = 381) 139 meq/L 136-145 POTASSIUM (BEAKER) (test code = 4.2 meq/L 3.5-5.1 379) CHLORIDE (BEAKER) (test code = 382) 100 meq/L 98-107 CO2 (BEAKER) (test code = 355) 27 meq/L 22-29 [id number] 13:14:00 Test Item Value Reference Range Interpretation Comments HEMOGLOBIN (BEAKER) (test code = 12.8 GM/DL 13.7-17.5 L 410) BLOOD [id number] 04:41:00 Test Item Value Reference Range Interpretation Comments CULTURE (BEAKER) (test No growth in 5 days code = 1095) POCT-GLUCOSE [id number] 13:11:00 Test Item Value Reference Range Interpretation Comments POC-GLUCOSE METER 169 mg/dL 70-110 H TESTED AT [facility] 6720 (BEAKER) (test code = [place] 1538) [address] ANG, TUNNELED CATHETER [id number] 18:19:00FINAL REPORT Tunneled dialysis catheter insertion. History: Renal failure. Mod ality: Sonography and fluoroscopy. Sedation: Moderate sedation was administered. 2 mg of Versed npu378 mcg of fentanyl IV was used for moderate sedation monitored under my direction. Total intra-service time of sedation was 30 minutes. The patient's vital signs were monitored throughout the procedure and recorded in the patient's medical record by the nurse. Hall Manager: [place] Lead Security Officer: None. Approach: Left internal jugular vein Estimated [...] not be advanced centrally. The inner 3 [place] micropuncture sheath was placed and contrast injected [...] needle into the right atrium. A 4 [place] micropuncture sheath was placed and a 0.035 wire advanced into the IVC. A subcutaneous tunnel was created in the left anterior chest wall by blunt dissection. A 23 cm tip to cuff 15.5 [place] Duraflow 2 catheter was brought through the [...] MDReport Verified Date/Time: 01/13/2018 18:19:33 Reading Location: [place] [address] Angio Body Reading Room POCT-GLUCOSE [id number] 17:11:00 Test Item Value Reference Range Interpretation Comments POC-GLUCOSE METER 159 mg/dL 70-110 H TESTED AT [facility] 6720 ([place]) (test code = TATY [place] 1538) [address] CATHETER TIP [id number] 10:23:00 Test Item Value Reference Range Interpretation Comments CULTURE (BEAKER) A <15 [place] s On (test code = 1095) Direct Pl ate Pseudomonas aeruginosa CULTURE (BEAKER) PSEUDOMONAS A <15 [place] s On (test [...] Tobramycin (test S code = 25) POCT-GLUCOSE [id number] 08:43:00 Test Item Value Reference Range Interpretation Comments POC-GLUCOSE METER 116 mg/dL 70-110 H TESTED AT [facility] 6720 (BEAKER) (test code = TATY Olivas [facility] 1538) [address] BASIC METABOLIC [id number] 06:17:00 Test Item Value Reference Range Interpretation [...] S NOT APPLICABLE FOR DIALYSIS PATIEN TS. [id number] 05:32:00 Test Item Value Reference Range Interpretation [...] 0-0 (BEAKER) (test code = 413) POCT-GLUCOSE [id number] 22:24:00 Test Item Value Reference Range Interpretation Comments POC-GLUCOSE METER 118 mg/dL 70-110 H TESTED AT [facility] 6720 (BEAKER) (test code = TATY MCHUGH 1538) [address] POCT-GLUCOSE [id number] 18:32:00 Test Item Value Reference Range Interpretation Comments POC-GLUCOSE METER 146 mg/dL 70-110 H TEST[facility] AT [place] [address] [facility] (test code = TATY Olivas [facility] 1538) [address] POCT-GLUCOSE [id number] 12:18:00 Test Item Value Reference Range Interpretation Comments POC-GLUCOSE METER 106 mg/dL 70-110 TESTED AT [place] [address] [facility] (test code = [facility] Brendon [facility] 1538) [address] POCT-GLUCOSE [id number] 07:45:00 Test Item Value Reference Range Interpretation Comments POC-GLUCOSE METER 98 mg/dL 70-110 TESTED AT [place] [address] [facility] (test code = [facility] [place]rend[place] [facility] [address] 1538) BLOOD [id number] 06:00:00 Test Item Value Reference Range Interpretation Comments CULTURE (BEAKER) (test No growth in 5 days code = 1095) BLOOD [id number] 06:00:00 Test Item Value Reference Range Interpretation Comments CULTURE (BEAKER) (test No growth in 5 days code = 1095) POCT-GLUCOSE [id number] 21:04:00 Test Item Value Reference Range Interpretation Comments POC-GLUCOSE METER 124 mg/dL 70-110 H TESTED AT [place] [address] ([facility] (test code = [facility] Brendon [facility] 1538) [address] POCT-GLUCOSE [id number] 17:25:00 Test Item Value Reference Range Interpretation Comments POC-GLUCOSE METER 177 mg/dL 70-110 H TESTED AT [place] [address] ([facility] (test code = [facility] 1538) [address] BASIC METABOLIC [id number] 13:32:00 Test Item Value Reference Range Interpretation [...] = 358) GLUCOSE RANDOM 94 mg/dL 70-105 ([facility]) (test code = 652) CALCIUM (AKER) 9.5 mg/dL 8.4-10.2 (test code = 697) EGFR ([facility]) (test 5 mL/min/1.73 ESTIMAT ED GFR IS code = 1092) sq m NOT ACCURATE CREATININE CLEARANCE IN PREDICTING GLOMERULAR FILTRATION RATE . ESTIMATED GFR I S NOT APPLICABLE FOR DIALYSIS PATIEN TS. POCT-GLUCOSE [id number] 12:17:00 Test Item Value Reference Range Interpretation Comments POC-GLUCOSE METER 82 mg/dL 70-110 TESTED AT [place] [address] ([facility]) (test code = TATY Olivas [facility] [address] 1538) [id number] 11:20:00 Test Item Value Reference Range Interpretation Comments PROTIME ([facility]) (test code = 15.3 seconds 11.7-14.7 H 759) INR ([facility]) (test code = 370) 1.2 <=5.9 PARTIAL THROMBOPLASTIN TIME 30.9 seconds 22.5-36.0 ([facility]) (test code = 760) RECOMMENDED COUMADIN/WARFARIN INR THERAPY RANGESSTANDARD DOSE: 2.0 - 3.0 Includes: PROPHYLAXIS for venous thrombosis, systemic embolization; TREATMENT for venous thrombosis and/or pulmonary embolus.HIGH RISK: Target INR is 2.5-3.5 for patients with mechanical heart valves.BLOOD [id number] 11:00:00 Test Item Value Reference Range Interpretation Comments CULTURE ([facility]) (test No growth in 5 days code = 1095) POCT-GLUCOSE [id number] 07:51:00 Test Item Value Reference Range Interpretation Comments POC-GLUCOSE METER 107 mg/dL 70-110 TESTED AT [facility] 6720 ([facility]) (test code = [facility] 1538) [address] CALCIUM, [id number] 06:32:00 Test Item Value Reference Range Interpretation Comments CALCIUM IONIZED ([facility]) (test 0.87 mmol/L 1.12-1.27 L code = 698) PH, BLOOD ([facility]) (test code = 7.38 1810) [id number] 06:13:00 Test Item Value Reference Range Interpretation Comments PHOSPHORUS (BEAKER) (test code = 6.9 mg/dL 2.3-4.7 H 604) [id number] 06:13:00 Test Item Value Reference Range Interpretation Comments MAGNESIUM (BEAKER) (test code = 2.6 mg/dL 1.6-2.6 627) CBC W/PLT COUNT & AUTO [id number] 06:00:00 Test Item Value Reference Range Interpretation [...] PERCENT (BEAKER) (test code = 2801) POCT-GLUCOSE [id number] 21:57:00 Test Item Value Reference Range Interpretation Comments POC-GLUCOSE METER 91 mg/dL 70-110 TESTED AT [place] [address] ([facility]) (test code = [facility] [address] 1538) BASIC METABOLIC [id number] 20:35:00 Test Item Value Reference Range Interpretation [...] NOT APPLICABLE FOR DIALYSIS PATIEN TS. POCT-GLUCOSE [id number] 17:48:00 Test Item Value Reference Range Interpretation Comments POC-GLUCOSE METER 136 mg/dL 70-110 H TESTED AT [facility] 6720 [facility] (test code = [facility] 1538) [address] POCT-GLUCOSE [id number] 12:42:00 Test Item Value Reference Range Interpretation Comments POC-GLUCOSE METER 109 mg/dL 70-110 TESTED AT [place] [address] ([facility]) (test code = TATY Olivas [place] 1538) [address] POCT-GLUCOSE [id number] 08:25:00 Test Item Value Reference Range Interpretation Comments POC-GLUCOSE METER 146 mg/dL 70-110 H TESTED AT [place] [address] ([facility]) (test code = TATY Olivas [place] 1538) [address] VANCOMYCIN LEVEL, [id number] 01:13:00 Test Item Value Reference Range Interpretation Comments VANCOMYCIN RANDOM ([facility]) (test 30.1 ug/mL code = 523) Reference Range: No NormalsPOCT-GLUCOSE [id number] 21:48:00 Test Item Value Reference Range Interpretation Comments POC-GLUCOSE METER 118 mg/dL 70-110 H TESTED AT [place] [address] ([facility]) (test code = TATY Olivas [facility] 1538) [address] POCT-GLUCOSE [id number] 18:22:00 Test Item Value Reference Range Interpretation Comments POC-GLUCOSE METER 118 mg/dL 70-110 H TESTED AT [place] [address] ([facility]) (test code = TATY Olivas [facility] 1538) [address] POCT-GLUCOSE [id number] 13:46:00 Test Item Value Reference Range Interpretation Comments POC-GLUCOSE METER 107 mg/dL 70-110 TESTED AT [place] [address] ([facility]) (test code = TATY Olivas [place] 1538) [address] POCT-GLUCOSE [id number] 08:36:00 Test Item Value Reference Range Interpretation Comments POC-GLUCOSE METER 107 mg/dL 70-110 TESTED AT [place] [address] ([facility]) (test code = TATY Olivas [facility] 1538) [address] SPUTUM CULTURE + GRAM [id number] 07:38:00 Test Item Value Reference Range Interpretation Comments CULTURE ([facility]) 1+ Normal respiratory (test code = 1095) miller present GRAM STAIN RESULT 1+ WBCs ([facility]) (test code = 1123) GRAM STAIN RESULT 0-5 epithelial cells ([facility]) (test code = 89455) GRAM STAIN RESULT 1+ gram positive cocci ([facility]) (test code = in pairs and clusters 74125) BASIC METABOLIC [id number] 06:57:00 Test Item Value Reference Range Interpretation [...] GFR I S NOT APPLICABLE FOR DIALYSIS PATIGURPREET TS. [id number] 06:54:00 Test Item Value Reference Range Interpretation Comments PHOSPHORUS (BEAKER) (test code = 4.9 mg/dL 2.3-4.7 H 604) [id number] 06:54:00 Test Item Value Reference Range Interpretation Comments MAGNESIUM (BEAKER) (test code = 2.2 mg/dL 1.6-2.6 627) CBC W/PLT COUNT & AUTO [id number] 06:38:00 Test Item Value Reference Range Interpretation [...] PERCENT (BEAKER) (test code = 2801) CALCIUM, [id number] 06:36:00 Test Item Value Reference Range Interpretation Comments CALCIUM IONIZED (BEAKER) (test 0.81 mmol/L 1.12-1.27 L code = 698) PH, BLOOD (BEAKER) (test code = 7.43 1810) POCT-GLUCOSE [id number] 20:50:00 Test Item Value Reference Range Interpretation Comments POC-GLUCOSE METER 99 mg/dL 70-110 TESTED AT [facility] 6720 (BEAKER) (test code = [place] [address] 1538) POCT-GLUCOSE [id number] 17:36:00 Test Item Value Reference Range Interpretation Comments POC-GLUCOSE METER 154 mg/dL 70-110 H TESTED AT [facility] 6720 (BEAKER) (test code = TATY [place] 1538) [address] POCT-GLUCOSE [id number] 12:44:00 Test Item Value Reference Range Interpretation Comments POC-GLUCOSE METER 116 mg/dL 70-110 H TESTED AT [facility] 6720 (BEAKER) (test code = TATY [place] 1538) [address] POCT-GLUCOSE [id number] 08:59:00 Test Item Value Reference Range Interpretation Comments POC-GLUCOSE METER 108 mg/dL 70-110 TESTED AT [facility] 6720 (BEAKER) (test code = TATY Olivas [place] 1538) [address] (CELLAVISION MANUAL DIFF)2018-01-08 08:20:00 Test Item Value [...] 3438) Received comment: User comments: Slide comments:CALCIUM, [id number] 07:09:00 Test Item Value Reference Range Interpretation Comments CALCIUM IONIZED (BEAKER) (test 0.94 mmol/L 1.12-1.27 L code = 698) PH, BLOOD (BEAKER) (test code = 7.44 1810) BASIC METABOLIC [id number] 06:16:00 Test Item Value Reference Range Interpretation [...] S NOT APPLICABLE FOR DIALYSIS PATIEN TS. [id number] 06:14:00 Test Item Value Reference Range Interpretation Comments PHOSPHORUS (BEAKER) (test code = 5.5 mg/dL 2.3-4.7 H 604) [id number] 06:14:00 Test Item Value Reference Range Interpretation Comments MAGNESIUM (BEAKER) (test code = 2.3 mg/dL 1.6-2.6 627) HEPATIC FUNCTION [id number] 06:14:00 Test Item Value Reference Range Interpretation [...] 68 U/L 6-55 H 347) VANCOMYCIN LEVEL, [id number] 05:56:00 Test Item Value Reference Range Interpretation Comments VANCOMYCIN RANDOM (BEAKER) (test 37.1 ug/mL code = 523) Reference Range: No NormalsPROTHROMBIN [id number] 05:32:00 Test Item Value Reference Range Interpretation Comments PROTIME (BEAKER) (test code = 14.1 seconds 11.7-14.7 759) INR (BEAKER) (test code = 370) 1.1 <=5.9 RECOMMENDED COUMADIN/WARFARIN INR THERAPY RANGESSTANDARD DOSE: 2.0 - 3.0 Includes: PROPHYLAXIS for venous thrombosis, systemic embolization; TREATMENT for venous thrombosis and/or pulmonary embolus.HIGH RISK: Target INR is 2.5-3.5 for patients with mechanical heart valves.CBC W/PLT COUNT & AUTO [id number] 05:27:00 Test Item Value Reference Range Interpretation [...] 413) ANG, REMOVAL OF TUNNELED CVC W/O [id number] 21:29:00Reason for exam:->BacteremiaFINAL REPORT Tunneled catheter removal: [...] internal jugular tunneled catheter. Signed: Evita Leslie MDReport Verified Date/Time: 01/07/2018 21:29:51 Reading Location: [facility] Radiology Reading Room POCT-GLUCOSE [id number] 21:18:00 Test Item Value Reference Range Interpretation Comments POC-GLUCOSE METER 138 mg/dL 70-110 H TESTED AT [facility] 6720 [facility] (test code = TATY [place] 1538) [address] POCT-GLUCOSE [id number] 17:07:00 Test Item Value Reference Range Interpretation Comments POC-GLUCOSE METER 126 mg/dL 70-110 H TESTED AT [facility] 6720 ([facility]) (test code = TATY [place] 1538) [address] LACTIC ACID, VENOUS, WHOLE [id number] 15:44:00 Test Item Value Reference Range Interpretation Comments LACTATE BLOOD VENOUS 1.9 mmol/L 0.5-2.2 Specime n slightly (2) (BEAKER) (test hemolyzed code = 2872) Effective 09/10/2015: Units/Reference Range ChangeNew: 0.5-2.2 mmol/L Previous: 5- 20 mg/dLPOCT-GLUCOSE [id number] 13:38:00 Test Item Value Reference Range Interpretation Comments POC-GLUCOSE METER 120 mg/dL 70-110 H TESTED AT [facility] 6720 ([facility]) (test code = TAT[place] 1538) [address] BASIC METABOLIC [id number] 11:05:00 Test Item Value Reference Range Interpretation [...] S NOT APPLICABLE FOR DIALYSIS PATIEN TS. [id number] 10:45:00 Test Item Value Reference Range Interpretation Comments PHOSPHORUS (BEAKER) (test code = 5.6 mg/dL 2.3-4.7 H 604) [id number] 10:45:00 Test Item Value Reference Range Interpretation Comments MAGNESIUM (BEAKER) (test code = 2.5 mg/dL 1.6-2.6 627) HEPATIC FUNCTION [id number] 10:45:00 Test Item Value Reference Range Interpretation [...] U/L 6-55 H 347) HEPATITIS B SURFACE [id number] 10:16:00 Test Item Value Reference Range Interpretation Comments HEPATITIS B SURFACE ANTIGEN (2) Nonreactive Nonreactive (BEAKER) (test code = 2585) POCT-GLUCOSE [id number] 07:59:00 Test Item Value Reference Range Interpretation Comments POC-GLUCOSE METER 102 mg/dL 70-110 TESTED AT [facility] 6720 (BEAKER) (test code = TATY [place] 1538) [address] VITAMIN D, 14-[id number] 07:50:00 Test Item Value Reference Range Interpretation Comments VITAMIN D 25-OH (BEAKER) (test 47.2 ng/mL 6.6-49.9 code = 2764) Effective 02/16/2017: Reference Range ChangeNew: 6.6-49.9 ng/mL Previous: 13.0- 47.8 ng/mLRecommendedVitamin D Target Range: 30.0-40.0 ng/mLVANCOMYCIN LEVEL, [id number] 07:12:00 Test Item Value Reference Range Interpretation Comments VANCOMYCIN RANDOM (BEAKER) (test 22.1 ug/mL code = 523) Reference Range: No NormalsPTH, [id number] 05:52:00 Test Item Value Reference Range Interpretation Comments PARATHYROID HORMONE INTACT 198.9 pg/mL 8.5-72.5 H (BEAKER) (test code = 577) CALCIUM, [id number] 05:45:00 Test Item Value Reference Range Interpretation Comments CALCIUM IONIZED (BEAKER) (test 0.84 mmol/L 1.12-1.27 L code = 698) PH, BLOOD (BEAKER) (test code = 7.51 1810) PROTHROMBIN [id number] 05:13:00 Test Item Value Reference Range Interpretation Comments PROTIME (BEAKER) (test code = 14.7 seconds 11.7-14.7 759) INR (BEAKER) (test code = 370) 1.2 <=5.9 RECOMMENDED COUMADIN/WARFARIN INR THERAPY RANGESSTANDARD DOSE: 2.0 - 3.0 Includes: PROPHYLAXIS for venous thrombosis, systemic embolization; TREATMENT for venous thrombosis and/or pulmonary embolus.HIGH RISK: Target INR is 2.5-3.5 for patients with mechanical heart valves.POCT-GLUCOSE [id number] 21:13:00 Test Item Value Reference Range Interpretation Comments POC-GLUCOSE METER 92 mg/dL 70-110 TESTED AT [facility] 6720 (BEAKER) (test code = TATY Olivas [facility] [address] 1538) [id number] 18:56:00 Test Item Value Reference Range Interpretation Comments PROCALCITONIN (BEAKER) (test code 51.22 ng/mL <0.05 HH = 3036) SEPSIS RISK (ng/mL)Low: 0.05-0.50Intermediate: 0.51-2.00High: >=2.01 URINALYSIS W/ [id number] 18:31:00 Test Item Value Reference Range Interpretation [...] /HPF 520) SOURCE(BEAKER) (test code = 2795) [id number] 17:48:00 Test Item Value Reference Range Interpretation Comments PHOSPHORUS (BEAKER) (test code = 5.1 mg/dL 2.3-4.7 H 604) RAD, CHEST, 1 VIEW, NON [id number] 11:31:00Reason for exam:->chest painShould this be performed [...] MDReport Verified Date/Time: 01/06/2018 11:31:21 Reading Location: [facility] Radiology Reading Room CBC W/PLT COUNT & [...] Received comment: User comments: Slide comments:U/S, RENAL, [id number] 09:04:00Reason for exam:->AKIFINAL REPORT Renal ultrasound Clinical [...] mass CT is recommended.3. Prostatomegaly. Signed: [facility] Verified Date/Time: 01/06/2018 09:04:28 Reading Location: [address] Ultrasound Reading Room LACTIC ACID, VENOUS, WHOLE [id number] 07:15:00 Test Item Value Reference Range Interpretation Comments LACTATE BLOOD VENOUS (2) (BEAKER) 0.6 mmol/L 0.5-2.2 (test code = 2872) Effective 09/10/2015: Units/Reference Range ChangeNew: 0.5-2.2 mmol/L Previous: 5- 20 mg/dLBASIC METABOLIC [id number] 05:48:00 Test Item Value Reference Range Interpretation [...] APPLICABLE FOR DIALYSIS PATIEN TS. HEPATIC FUNCTION [id number] 05:45:00 Test Item Value Reference Range Interpretation [...] code = 54 U/L 6-55 347) PROTHROMBIN [id number] 05:22:00 Test Item Value Reference Range Interpretation [...] stable. Physician intra-service time was 20 minutes. Hall Manager: Dimple. Lead Security Officer: None. Approach: Right internal jugular vein Estimated [...] needle into the right atrium. A 4 [place] micropuncture sheathwas placed. A subcutaneous tunnel was created in the right anterior chest wall by blunt dissection. A 19 cm 15.5 [place] Duraflow 2 catheter was brought through the [...] guidance and conscious sedation. Signed: Hari Musa Verified Date/Time: 03/18/2017 09:52:18 Reading Location: [place] [address] Angio Body Reading Room MISCELLANEOUS LAB [id number] 14:09:00 Test Item Value Reference Range Interpretation Comments SCAN RESULT (test code = 9613144) Result comments: METHICILLIN-SUSCEPTIBLE STAPH. AUREUS (MSSA) DETECTED Staphylococcus aureus DETECTED MecA NOT DETECTED First line therapy: cefazolin or nafcillin (nafcillin preferred if Central Nervous System Infection) ID consultation strongly encouraged. Other organisms and resistance markers not co ntained in this PCR panel cannot be excluded and follow-up of traditional culture results is required. This sample was tested at the [facility] Clinical Microbiology Laboratory using the [employer] Blood Culture ID Panel. This test is FDA cleared for in vitro diagnostic use and has been verified and approved by the [facility] Clinical Microbiology laboratory for clinical use. Reference Range: Not DetectedBLOOD [id number] 11:00:00 Test Item Value Reference Range Interpretation Comments CULTURE (BEAKER) (test No growth in 5 days code = 1095) BLOOD [id number] 11:00:00 Test Item Value Reference Range Interpretation Comments CULTURE (BEAKER) (test No growth in 5 days code = 1095) BLOOD [id number] 18:00:00 Test Item Value Reference Range Interpretation Comments CULTURE (BEAKER) (test No growth in 5 days code = 1095) BLOOD [id number] 18:00:00 Test Item Value Reference Range Interpretation Comments CULTURE (BEAKER) (test No growth in 5 days code = 1095) BASIC METABOLIC [id number] 07:03:00 Test Item Value Reference Range Interpretation [...] WBC 0-0 (BEAKER) (test code = 413) [id number] 06:15:00 Test Item Value Reference Range Interpretation [...] for patients with mechanical heart valves.BASIC METABOLIC [id number] 06:38:00 Test Item Value Reference Range Interpretation [...] GFR I S NOT APPLICABLE FOR DIALYSIS PATIGURPREET TS. [id number] 06:26:00 Test Item Value Reference Range Interpretation Comments PHOSPHORUS (BEAKER) (test code = 5.9 mg/dL 2.3-4.7 H 604) [id number] 06:26:00 Test Item Value Reference Range Interpretation Comments MAGNESIUM (BEAKER) (test code = 2.0 mg/dL 1.6-2.6 627) CBC W/PLT COUNT & AUTO [id number] 06:00:00 Test Item Value Reference Range Interpretation [...] 0-1 PERCENT (BEAKER) (test code = 2801) [id number] 07:32:00 Test Item Value Reference Range Interpretation [...] % 20-55 H (test code = 2590) [id number] 07:19:00 Test Item Value Reference Range Interpretation Comments PHOSPHORUS (BEAKER) (test code = 5.3 mg/dL 2.3-4.7 H 604) [id number] 07:19:00 Test Item Value Reference Range Interpretation Comments MAGNESIUM (BEAKER) (test code = 2.2 mg/dL 1.6-2.6 627) BASIC METABOLIC [id number] 07:19:00 Test Item Value Reference Range Interpretation [...] PATIEN TS. CBC W/PLT COUNT & AUTO [id number] 06:51:00 Test Item Value Reference Range Interpretation [...] (BEAKER) (test code = 2801) CATHETER TIP [id number] 16:52:00 Test Item Value Reference Range Interpretation Comments CULTURE (BEAKER) A <15 [place]ie s On Direct (test code = 1095) Plate Coa gulase negative Staphylococcus CATHETER TIP [id number] 16:49:00 Test Item Value Reference Range Interpretation Comments CULTURE (BEAKER) (test code = 1095) No growth BLOOD [id number] 08:10:00 Test Item Value Reference Range Interpretation [...] gram 1123) positive cocci in clusters BLOOD [id number] 08:08:00 Test Item Value Reference Interpretation Comments [...] required. This sample was tested at the [facility] Clinical Microbiology Laboratory using the [employer] Blood Culture ID Panel. This test is FDA cleared for in vitro diagnostic use and has been verified and approved by the [facility] Clinical Microbiology laboratory for clinical use. Reference Range: Not DetectedBASIC METABOLIC [id number] 07:05:00 Test Item Value Reference Range Interpretation [...] S NOT APPLICABLE FOR DIALYSIS PATIEN TS. [id number] 07:01:00 Test Item Value Reference Range Interpretation Comments PHOSPHORUS (BEAKER) (test code = 4.8 mg/dL 2.3-4.7 H 604) [id number] 07:01:00 Test Item Value Reference Range Interpretation Comments MAGNESIUM (BEAKER) (test code = 2.2 mg/dL 1.6-2.6 627) CBC W/PLT COUNT & AUTO [id number] 06:39:00 Test Item Value Reference Range Interpretation [...] 0-1 PERCENT (BEAKER) (test code = 2801) [id number] 23:09:00 Test Item Value Reference Range Interpretation Comments SODIUM (BEAKER) (test code = 381) 141 meq/L 136-145 POTASSIUM (BEAKER) (test code = 4.2 meq/L 3.5-5.1 379) CHLORIDE (BEAKER) (test code = 382) 106 meq/L 98-107 CO2 (BEAKER) (test code = 355) 22 meq/L 22-29 BASIC METABOLIC [id number] 13:19:00 Test Item Value Reference Range Interpretation [...] S NOT APPLICABLE FOR DIALYSIS PATIEN TS. [id number] 13:11:00 Test Item Value Reference Range Interpretation Comments PHOSPHORUS (BEAKER) (test code = 3.6 mg/dL 2.3-4.7 604) [id number] 13:11:00 Test Item Value Reference Range Interpretation Comments MAGNESIUM (BEAKER) (test code = 2.1 mg/dL 1.6-2.6 627) CBC W/PLT COUNT & AUTO [id number] 12:55:00 Test Item Value Reference Range Interpretation [...] = 2801) ANG, REMOVAL OF TUNNELED CVC [id number] 12:44:00Reason for exam:->ESRD bacteremia concern for line [...] MDReport Verified Date/Time: 02/27/2017 12:44:21 Reading Location: [address] Body Reading Room VANCOMYCIN LEVEL, RANDOM 2017-02-27 05:46:00 Test Item Value Reference Range Interpretation Comments VANCOMYCIN RANDOM (BEAKER) (test 20.4 ug/mL code = 523) Reference Range: No NormalsHEPATITIS B SURFACE [id number] 15:33:00 Test Item Value Reference Range Interpretation Comments HEPATITIS B SURFACE ANTIGEN (2) Nonreactive Nonreactive (BEAKER) (test code = 2585) CBC W/PLT COUNT & AUTO [id number] 07:12:00 Test Item Value Reference Range Interpretation [...] (BEAKER) (test code = 2801) BASIC METABOLIC [id number] 06:47:00 Test Item Value Reference Range Interpretation [...] S NOT APPLICABLE FOR DIALYSIS PATIEN TS. [id number] 06:43:00 Test Item Value Reference Range Interpretation Comments PHOSPHORUS (BEAKER) (test code = 3.0 mg/dL 2.3-4.7 604) PROTHROMBIN [id number] 06:07:00 Test Item Value Reference Range Interpretation [...] stable. Physician intra-service time was 20 minutes. Hall Manager: Dimple. Lead Security Officer: None. Approach: Right internal jugular vein Estimated [...] needle into the right atrium. A 4 [place] micropuncture sheath was placed. A subcutaneous tunnel was created in the right anterior chest wall by bluntdissection. A 19 cm 15.5 [place] Duraflow 2 catheter was brought through the [...] MDReport Verified Date/Time: 01/26/2017 07:52:45 Reading Location: [address] Body Reading Room POCT-GLUCOSE [id number] 01:07:00 Test Item Value Reference Range Interpretation Comments POC-GLUCOSE METER 179 mg/dL 70-110 H TESTED AT [facility] 6720 (BEAKER) (test code = [facility] 1538) [address] BASIC METABOLIC [id number] 21:57:00 Test Item Value Reference Range Interpretation [...] PATIEN TS. CREATINE KINASE (CK), TOTAL AND [id number] 21:52:00 Test Item Value Reference Range Interpretation Comments CREATINE KINASE TOTAL (BEAKER) 159 U/L 29-200 (test code = 380) CREATINE KINASE-MB (BEAKER) (test 0.8 ng/mL 0.0-6.6 code = 750) CREATINE KINASE-MB INDEX (BEAKER) 0.5 % (test code = 395) CK-MB Reference Range:<6.7 Normal6.7-10.0 Borderline>10.0 AbnormalRAD, CHEST, 1 VIEW, NON [id number] 21:52:00Reason for exam:->CHEST PAINShould this be performed [...] in the low SVC. Signed: Liz Leach MDReport Verified Date/Time: 01/25/2017 21:52:27 Reading Location: [address] Consult Reading Room TROPONIN I 2017-01-25 21:27:00 [...] (test code = 2801) HEPATITIS B SURFACE [id number] 15:55:00 Test Item Value Reference Range Interpretation Comments HEPATITIS B SURFACE ANTIGEN (2) Nonreactive Nonreactive (BEAKER) (test code = 2585) BASIC METABOLIC [id number] 07:30:00 Test Item Value Reference Range Interpretation [...] S NOT APPLICABLE FOR DIALYSIS PATIEN TS. [id number] 07:18:00 Test Item Value Reference Range Interpretation Comments PHOSPHORUS (BEAKER) (test code = 5.9 mg/dL 2.3-4.7 H 604) [id number] 07:18:00 Test Item Value Reference Range Interpretation Comments MAGNESIUM (BEAKER) (test code = 2.2 mg/dL 1.6-2.6 627) PROTHROMBIN [id number] 06:43:00 Test Item Value Reference Range Interpretation Comments PROTIME (BEAKER) (test code = 13.6 seconds 11.7-14.7 759) INR (BEAKER) (test code = 370) 1.1 <=5.9 RECOMMENDED COUMADIN/WARFARIN INR THERAPY RANGESSTANDARD DOSE: 2.0 - 3.0 Includes: PROPHYLAXIS for venous thrombosis, systemic embolization; TREATMENT for venous thrombosis and/or pulmonary embolus.HIGH RISK: Target INR is 2.5-3.5 for patients with mechanical heart valves.CBC W/PLT COUNT & AUTO [id number] 06:42:00 Test Item Value Reference Range Interpretation [...] = 2801) CBC W/PLT COUNT & AUTO [id number] 14:36:00 Test Item Value Reference Range Interpretation [...] code 1+ few = 480) BASIC METABOLIC [id number] 07:18:00 Test Item Value Reference Range Interpretation [...] S NOT APPLICABLE FOR DIALYSIS SHEY TS. [id number] 07:11:00 Test Item Value Reference Range Interpretation Comments PHOSPHORUS (BEAKER) (test code = 3.7 mg/dL 2.3-4.7 604) CBC W/PLT COUNT & AUTO [id number] 11:27:00 Test Item Value Reference Range Interpretation [...] 1+ few code = 478) BASIC METABOLIC [id number] 08:40:00 Test Item Value Reference Range Interpretation [...] S NOT APPLICABLE FOR DIALYSIS PATIEN TS. [id number] 08:38:00 Test Item Value Reference Range Interpretation Comments PHOSPHORUS (BEAKER) (test code = 4.0 mg/dL 2.3-4.7 604) CBC W/PLT COUNT & AUTO [id number] 13:06:00 Test Item Value Reference Range Interpretation [...] (test code = Normal 762) HEPATITIS B [id number] 11:49:00 Test Item Value Reference Range Interpretation Comments HEPATITIS B CORE TOTAL ANTIBODY Nonreactive Nonreactive (BEAKER) (test code = 497) HEPATITIS B SURFACE ANTIBODY < mIU/mL <8.0 (BEAKER) (test code = 647) HEPATITIS B SURFACE ANTIGEN (2) Nonreactive Nonreactive (BEAKER) (test code = 2585) [id number] 11:19:00 Test Item Value Reference Range Interpretation [...] for patients with mechanical heart valves.BASIC METABOLIC [id number] 07:32:00 Test Item Value Reference Range Interpretation [...] S NOT APPLICABLE FOR DIALYSIS PATIEN TS. [id number] 07:17:00 Test Item Value Reference Range Interpretation Comments PHOSPHORUS (BEAKER) (test code = 3.3 mg/dL 2.3-4.7 604) [id number] 07:17:00 Test Item Value Reference Range Interpretation Comments MAGNESIUM (BEAKER) (test code = 2.0 mg/dL 1.6-2.6 627) HEPATIC FUNCTION [id number] 07:17:00 Test Item Value Reference Range Interpretation [...] = 13 U/L 6-55 347) COMPREHENSIVE METABOLIC [id number] 17:39:00 Test Item Value Reference Range Interpretation [...] S NOT APPLICABLE FOR DIALYSIS PATIEN TS. [id number] 17:36:00 Test Item Value Reference Range Interpretation Comments MAGNESIUM (BEAKER) 2.2 mg/dL 1.6-2.6 Specimen slightly (test code = 627) hemolyzed CBC W/PLT COUNT & AUTO [id number] 16:57:00 Test Item Value Reference Range Interpretation [...] 0.00-0.20 (test code = 417) 0.00COMPREHENSIVE METABOLIC [id number] 06:52:00 Test Item Value Reference Range Interpretation [...] NOT APPLICABLE FOR DIALYSIS PATIEN TS. URIC [id number] 06:51:00 Test Item Value Reference Range Interpretation Comments URIC ACID (BEAKER) (test code = 8.2 mg/dL 2.6-7.2 H 773) LACTATE DEHYDROGENASE (LDH)2016-08-07 06:51:00 Test Item Value Reference Range Interpretation Comments LACTATE DEHYDROGENASE (BEAKER) (test 233 U/L 125-220 H code = 635) CBC W/PLT COUNT & AUTO [id number] 15:03:00 Test Item Value Reference Range Interpretation [...] (test code = Normal 762) COMPREHENSIVE METABOLIC [id number] 06:13:00 Test Item Value Reference Range Interpretation [...] NOT APPLICABLE FOR DIALYSIS PATIEN TS. URIC [id number] 06:05:00 Test Item Value Reference Range Interpretation Comments URIC ACID (BEAKER) (test code = 5.3 mg/dL 2.6-7.2 773) [id number] 06:05:00 Test Item Value Reference Range Interpretation Comments MAGNESIUM (BEAKER) (test code = 1.9 mg/dL 1.6-2.6 627) [id number] 06:05:00 Test Item Value Reference Range Interpretation Comments PHOSPHORUS (BEAKER) (test code = 3.8 mg/dL 2.3-4.7 604) LACTATE DEHYDROGENASE (LDH)2016-08-06 06:05:00 Test Item Value Reference Range Interpretation Comments LACTATE DEHYDROGENASE (BEAKER) (test 248 U/L 125-220 H code = 635) [id number] 06:51:00 Test Item Value Reference Range Interpretation Comments PHOSPHORUS (BEAKER) (test code = 3.5 mg/dL 2.3-4.7 604) [id number] 06:51:00 Test Item Value Reference Range Interpretation Comments MAGNESIUM (BEAKER) (test code = 1.9 mg/dL 1.6-2.6 627) BASIC METABOLIC [id number] 06:51:00 Test Item Value Reference Range Interpretation [...] PATIEN TS. CBC W/PLT COUNT & AUTO [id number] 06:37:00 Test Item Value Reference Range Interpretation [...] 0.00-0.20 (test code = 417) 0.00BASIC METABOLIC [id number] 12:49:00 Test Item Value Reference Range Interpretation [...] NOT APPLICABLE FOR DIALYSIS PATIEN TS. URIC [id number] 12:46:00 Test Item Value Reference Range Interpretation Comments URIC ACID (BEAKER) (test code = 5.2 mg/dL 2.6-7.2 773) [id number] 12:46:00 Test Item Value Reference Range Interpretation Comments MAGNESIUM (BEAKER) (test code = 2.1 mg/dL 1.6-2.6 627) [id number] 12:46:00 Test Item Value Reference Range Interpretation Comments PHOSPHORUS (BEAKER) (test code = 3.8 mg/dL 2.3-4.7 604) HEPATIC FUNCTION [id number] 12:46:00 Test Item Value Reference Range Interpretation [...] = 635) CBC W/PLT COUNT & AUTO [id number] 12:27:00 Test Item Value Reference Range Interpretation [...] (test code = 417) 0.00HEPATITIS B SURFACE [id number] 14:54:00 Test Item Value Reference Range Interpretation Comments HEPATITIS B SURFACE ANTIGEN (2) Nonreactive Nonreactive (BEAKER) (test code = 2585) CBC W/PLT COUNT & AUTO [id number] 10:30:00 Test Item Value Reference Range Interpretation [...] code = 1+ few 481) COMPREHENSIVE METABOLIC [id number] 06:29:00 Test Item Value Reference Range Interpretation [...] = 635) CBC W/PLT COUNT & AUTO [id number] 06:53:00 Test Item Value Reference Range Interpretation [...] 0.00-0.20 (test code = 417) 0.00COMPREHENSIVE METABOLIC [id number] 06:47:00 Test Item Value Reference Range Interpretation [...] = 635) CBC W/PLT COUNT & AUTO [id number] 11:26:00 Test Item Value Reference Range Interpretation [...] (test code = Normal 762) BASIC METABOLIC [id number] 05:47:00 Test Item Value Reference Range Interpretation [...] NOT APPLICABLE FOR DIALYSIS PATIEN TS. URIC [id number] 05:44:00 Test Item Value Reference Range Interpretation Comments URIC ACID (BEAKER) (test code = 9.4 mg/dL 2.6-7.2 H 773) [id number] 05:44:00 Test Item Value Reference Range Interpretation Comments PHOSPHORUS (BEAKER) (test code = 5.1 mg/dL 2.3-4.7 H 604) HEPATIC FUNCTION [id number] 05:44:00 Test Item Value Reference Range Interpretation [...] = 635) CBC W/PLT COUNT & AUTO [id number] 11:11:00 Test Item Value Reference Range Interpretation [...] 1+ few code = 478) BASIC METABOLIC [id number] 07:05:00 Test Item Value Reference Range Interpretation [...] NOT APPLICABLE FOR DIALYSIS PATIEN TS. URIC [id number] 07:04:00 Test Item Value Reference Range Interpretation Comments URIC ACID (BEAKER) (test code = 4.6 mg/dL 2.6-7.2 773) [id number] 07:04:00 Test Item Value Reference Range Interpretation Comments PHOSPHORUS (BEAKER) (test code = 3.1 mg/dL 2.3-4.7 604) HEPATIC FUNCTION [id number] 07:04:00 Test Item Value Reference Range Interpretation [...] = 635) CBC W/PLT COUNT & AUTO [id number] 06:57:00 Test Item Value Reference Range Interpretation [...] (BEAKER) (test code = 1351) BASIC METABOLIC [id number] 06:09:00 Test Item Value Reference Range Interpretation [...] NOT APPLICABLE FOR DIALYSIS PATIEN TS. URIC [id number] 06:05:00 Test Item Value Reference Range Interpretation Comments URIC ACID (BEAKER) (test code = 6.5 mg/dL 2.6-7.2 773) [id number] 06:05:00 Test Item Value Reference Range Interpretation Comments PHOSPHORUS (BEAKER) (test code = 5.0 mg/dL 2.3-4.7 H 604) HEPATIC FUNCTION [id number] 06:05:00 Test Item Value Reference Range Interpretation [...] 125-220 H code = 635) URINALYSIS W/ [id number] 22:18:00 Test Item Value Reference Range Interpretation [...] SOURCE(BEAKER) (test code Urine, Clean Catch = 2010) CBC W/PLT COUNT & AUTO [id number] 20:30:00 Test Item Value Reference Range Interpretation [...] 0.00-0.20 (test code = 417) 0.00COMPREHENSIVE METABOLIC [id number] 20:25:00 Test Item Value Reference Range Interpretation [...] NOT APPLICABLE FOR DIALYSIS PATIEN TS. URIC [id number] 20:24:00 Test Item Value Reference Range Interpretation Comments URIC ACID (BEAKER) (test code = 5.8 mg/dL 2.6-7.2 773) [id number] 20:24:00 Test Item Value Reference Range Interpretation Comments PHOSPHORUS (BEAKER) (test code = 4.8 mg/dL 2.3-4.7 H 604) LACTATE DEHYDROGENASE (LDH)2016-07-14 20:24:00 Test Item Value Reference Range Interpretation Comments LACTATE DEHYDROGENASE (BEAKER) (test 245 U/L 125-220 H code = 635) PROTHROMBIN [id number] 20:12:00 Test Item Value Reference Range Interpretation Comments PROTIME (BEAKER) (test code = 13.0 seconds 11.7-14.7 759) INR (BEAKER) (test code = 370) 1.0 <=5.9 RECOMMENDED COUMADIN/WARFARIN INR THERAPY RANGESSTANDARD DOSE: 2.0 - 3.0 Includes: PROPHYLAXIS for venous thrombosis, systemic embolization; TREATMENT for venous thrombosis and/or pulmonary embolus.HIGH RISK: Target INR is 2.5-3.5 for patients with mechanical heart valves.[id number] 15:01:00 Test Item Value Reference Range Interpretation Comments LAB AP CPT CODE (BEAKER) (test code = 07756 2749) CBC W/PLT COUNT & AUTO [id number] 14:40:00 Test Item Value Reference Range Interpretation [...] (test code = Normal 762) BASIC METABOLIC [id number] 07:34:00 Test Item Value Reference Range Interpretation [...] S NOT APPLICABLE FOR DIALYSIS PATIEN TS. [id number] 07:26:00 Test Item Value Reference Range Interpretation Comments PHOSPHORUS (BEAKER) (test code = 5.0 mg/dL 2.3-4.7 H 604) [id number] 07:26:00 Test Item Value Reference Range Interpretation Comments MAGNESIUM (BEAKER) (test code = 2.0 mg/dL 1.6-2.6 627) HEPATIC FUNCTION [id number] 07:26:00 Test Item Value Reference Range Interpretation [...] = 14 U/L 6-55 347) FLOW CYTOMETRY [id number] 11:51:00 Test Item Value Reference Range Interpretation Comments FLOW CYTOMETRY RESULT See Separate Report POINTER (BEAKER) (test code = 2758) FLOW CYTOMETRY AP CASE # [id number] (BEAKER) (test code = 2759) HEPATITIS B SURFACE [id number] 09:53:00 Test Item Value Reference Range Interpretation Comments HEPATITIS B SURFACE ANTIGEN (2) Nonreactive Nonreactive (BEAKER) (test code = 2585) FLOW [id number] 09:46:00 Test Item Value Reference Range Interpretation Comments LAB AP CPT CODE (BEAKER) (test code = 32123 2749) BASIC METABOLIC [id number] 06:27:00 Test Item Value Reference Range Interpretation [...] S NOT APPLICABLE FOR DIALYSIS PATIEN TS. [id number] 06:26:00 Test Item Value Reference Range Interpretation Comments PHOSPHORUS (BEAKER) (test code = 3.3 mg/dL 2.3-4.7 604) [id number] 06:26:00 Test Item Value Reference Range Interpretation Comments MAGNESIUM (BEAKER) (test code = 1.9 mg/dL 1.6-2.6 627) HEPATIC FUNCTION [id number] 06:26:00 Test Item Value Reference Range Interpretation [...] 6-55 347) CBC W/PLT COUNT & AUTO [id number] 06:10:00 Test Item Value Reference Range Interpretation [...] (test code = 417) 0.00CSF CELL COUNT [id number]/[id number] 16:38:00 Test Item Value Reference Range Interpretation [...] NUMBER CSF (BEAKER) (test 1 code = 8878) CBC W/PLT COUNT & AUTO [id number] 06:59:00 Test Item Value Reference Range Interpretation [...] 0.00-0.20 (test code = 417) 0.00BASIC METABOLIC [id number] 06:18:00 Test Item Value Reference Range Interpretation [...] S NOT APPLICABLE FOR DIALYSIS PATIEN TS. [id number] 06:17:00 Test Item Value Reference Range Interpretation Comments PHOSPHORUS (BEAKER) (test code = 4.9 mg/dL 2.3-4.7 H 604) [id number] 06:17:00 Test Item Value Reference Range Interpretation Comments MAGNESIUM (BEAKER) (test code = 1.8 mg/dL 1.6-2.6 627) HEPATIC FUNCTION [id number] 06:17:00 Test Item Value Reference Range Interpretation [...] = 13 U/L 6-55 347) COMPREHENSIVE METABOLIC [id number] 21:37:00 Test Item Value Reference Range Interpretation [...] NOT APPLICABLE FOR DIALYSIS PATIEN TS. URIC [id number] 21:36:00 Test Item Value Reference Range Interpretation Comments URIC ACID (BEAKER) (test code = 4.9 mg/dL 2.6-7.2 773) LACTATE DEHYDROGENASE (LDH)2016-06-23 21:36:00 Test Item Value Reference Range Interpretation Comments LACTATE DEHYDROGENASE (BEAKER) (test 223 U/L 125-220 H code = 635) PROTHROMBIN [id number] 21:23:00 Test Item Value Reference Range Interpretation Comments PROTIME (BEAKER) (test code = 13.2 seconds 11.7-14.7 759) INR (BEAKER) (test code = 370) 1.0 <=5.9 RECOMMENDED COUMADIN/WARFARIN INR THERAPY RANGESSTANDARD DOSE: 2.0 - 3.0 Includes: PROPHYLAXIS for venous thrombosis, systemic embolization; TREATMENT for venous thrombosis and/or pulmonary embolus.HIGH RISK: Target INR is 2.5-3.5 for patients with mechanical heart valves.CBC W/PLT COUNT & AUTO [id number] 21:18:00 Test Item Value Reference Range Interpretation [...]
[2022-05-15 20:26] LABS: Absolute Lymphocytes (CBC) 1.6 K/uL (0.7-4.9); Hematocrit 25.1 % (39.6-49.0); Lymphocytes % 31.2 % (15.3-44.8); MCV 87.4 fL (80-100); MPV 9.5 fL (7.6-11.3); RBC Red Blood Cell Count 2.87 M/uL (4.33-5.43)
[2022-05-15 21:06] LABS: ALT/SGPT 23 U/L (16-61); AST/SGOT 18 U/L (15-37); Albumin 2.8 g/dL (3.4-5.0); Alkaline Phosphatase 70 U/L (45-117); BUN Blood Urea Nitrogen 73 mg/dL (7-18); Bicarbonate 27 mmol/L (21-32); Bilirubin Total 0.4 mg/dL (0.2-1.0); Glomerular Filtration Rate 4 ml/min (=/>90); Glucose Level 122 mg/dL (74-106); Magnesium 2.6 mg/dL (1.6-2.4); Potassium 4.4 mmol/L (3.5-5.1); Protein, Total 6.9 g/dL (6.4-8.2); Sodium Level 137 mmol/L (136-145); Troponin High Sensitivity 102.9 pg/mL (<58.9)
[2022-05-15 21:13] LABS: NT PRO-BNP > 175000 pg/mL (<125)
--- NOTE | 2022-05-15 21:44 | RAD REPORT ---
EXAM DESCRIPTION: RAD - Chest Single View - 05/15/2022 9:32 pm CLINICAL HISTORY: SOB COMPARISON: Chest Single View dated 03/13/2022; Chest Single View dated 09/10/2021; Chest Pa And Lat (2 Views) dated 08/20/2020; Chest Single View dated 01/03/2018 FINDINGS: Lines: None. Lungs: Diffuse prominence of the pulmonary vasculature. . Pleural: No significant pleural effusions or pneumothorax. Cardiac: Cardiomegaly. Mediastinum: Within normal limits. Bones: No acute fractures. Other: None IMPRESSION: Pulmonary edema.
[2022-05-15 21:57] LABS: SARS-CoV-2 Antigen Rapid Res Negative (Negative)
--- NOTE | 2022-05-15 21:59 | EDPHYS ---
Physician Documentation [facility] Name: Naldo Alejandre Age: 67 yrs Sex: Male : 1955 Arrival Date: 05/15/2022 Time: 18:15 Bed 24 Private MD: Mendez Montez ED Physician Genie Vazquez HPI: 05/15 19:42 This 67 yrs old Black Male presents to ER via Ambulatory with complaints of Leg sd2 Swelling. 19:42 67-year-old male with a history of end-stage renal disease on dialysis Tuesday, sd2 Tuesday and Tuesday presents with chief complaint of generalized weakness, shortness of breath and bilateral lower extremity edema. He reports that he last received dialysis on Tuesday and overslept on Tuesday and did not make his dialysis. He reports he called the dialysis clinic today to see if they could get him in but they were unable to. He denies any associated fevers or chest pain but does endorse shortness of breath. He reports that they have not been able to get off all of his fluid for the past 3 weeks and he has continued to have leg edema. He is requesting to be transferred downtown to [facility] in the [facility] because he reports all of his doctors are located there.. Historical: - Allergies: 18:40 No Known Allergies; vg1 - PMHx: 18:40 Dialysis; M,W,F; ESRD; Hyperlipidemia; Hypertension; kidney disease; LYMPHOMA; vg1 - Immunization history:: Client reports having NOT received the Covid vaccine. - Social history:: Smoking status: Patient reports the use of cigarette tobacco products, denies chronic smoking, but will smoke occasionally. ROS: 19:42 Constitutional: Negative for fever, chills, and weight loss, Eyes: Negative for injury, sd2 pain, redness, and discharge. 19:42 Cardiovascular: Negative for chest pain, palpitations, and edema. 19:42 Abdomen/GI: Negative for abdominal pain, nausea, vomiting, diarrhea. MS/Extremity: Negative for injury and deformity, Skin: Negative for injury, rash, and discoloration, Neuro: Negative for headache, numbness and tingling. 19:42 Cardiovascular: Positive for edema. 19:42 Respiratory: Positive for shortness of breath, Negative for cough, wheezing. Exam: 19:42 Constitutional: This is a well developed, well nourished patient who is awake, alert, sd2 and in no acute distress. Head/Face: Normocephalic, atraumatic. Eyes: EOMI, normal conjunctiva bilaterally Chest/axilla: Normal chest wall appearance and motion. Nontender with no deformity. Cardiovascular: Regular rate and rhythm with a loud systolic murmur present. No gallops, murmurs, or rubs. 2+ distal pulses. Respiratory: Lungs have equal breath sounds bilaterally, clear to auscultation and percussion. No rales, rhonchi or wheezes noted. No increased work of breathing, no retractions or nasal flaring. Abdomen/GI: Soft, non-tender, with normal bowel sounds. No guarding or rebound. No evidence of tenderness throughout. Skin: Warm, dry with normal turgor. Normal color with no rashes, no lesions, and no evidence of cellulitis. MS/ Extremity: Pulses equal, no cyanosis. Neurovascular intact. Full, normal range of motion. Ambulatory without difficulty. 4+ pitting edema to BLEs. Psych: Awake, alert, with orientation to person, place and time. Behavior, mood, and affect are within normal limits. 21:22 ECG was reviewed by the Attending Physician. NSR, rate 82, no STEMI criteria sd2 Vital Signs: 18:36 BP 124 / 82; Pulse 95; Resp 20; Temp 99.0(TE); Pulse Ox 96% on R/A; Weight 99.79 kg; vg1 Height 6 ft. 2 in. (187.96 cm); Pain 6/10; 19:24 BP 124 / 87; Pulse 91; Resp 18; Pulse Ox 98% on R/A; oe 20:15 BP 123 / 89; Pulse 83; Resp 19; Pulse Ox 99% on R/A; Pain 5/10; fu 20:45 BP 128 / 83; Pulse 82; Resp 19; Pulse Ox 98% on R/A; fu 21:15 BP 123 / 90; Pulse 86; Resp 20; Pulse Ox 99% ; fu 21:45 BP 141 / 91; Pulse 90; Resp 19; Pulse Ox 100% on R/A; fu 22:15 BP 134 / 86; Pulse 89; Resp 17; Pulse Ox 100% on R/A; fu 23:00 BP 129 / 88; Pulse 84; Resp 19; Pulse Ox 98% on R/A; fu 18:36 Body Mass Index 28.25 (99.79 kg, 187.96 cm) vg1 MDM: 19:08 Patient medically screened. sd2 19:42 Differential Diagnosis Dehydration, electrolyte abnormality, UTI, PNA, anemia among sd2 others. Data reviewed: vital signs, nurses notes. 21:56 Data reviewed: lab test result(s), EKG, radiologic studies. Counseling: I had a sd2 detailed discussion with the patient and/or guardian regarding: the historical points, exam findings, and any diagnostic results supporting the discharge/admit diagnosis, lab results, radiology results, the need for further work-up and treatment in the hospital. ED course: Labs and imaging reviewed. Consistent with fluid overload and need for dialysis. Pt did request transfer to [facility] for patient preference and continuity of care. They have declined the transfer. Pt agreeable to admit at our facility at this time. Discussed case with hospitalist who has accepted the patient for admission at this time. . 05/15 19:37 Order name: CBC with Diff; Complete Time: 21:18 sd2 05/15 19:37 Order name: CMP; Complete Time: 21:18 sd2 05/15 19:37 Order name: Magnesium; Complete Time: 21:18 sd2 05/15 19:37 Order name: Troponin High Sensitivity; Complete Time: 21:18 sd2 05/15 19:37 Order name: BNP; Complete Time: 21:18 sd2 05/15 21:32 Order name: SARS-COV-2 Antigen Rapid; Complete Time: 21:59 wm 05/15 19:37 Order name: EKG - Nurse/Tech; Complete Time: 21:48 sd2 05/15 19:37 Order name: XRAY Chest (1 view); Complete Time: 21:47 sd2 Administered Medications: 22:05 Drug: Lasix (furosemide) 80 mg Route: IVP; Site: left forearm; fu 23:14 Follow up: Response: No adverse reaction fu Disposition Summary: 05/15/22 21:58 Hospitalization Ordered Hospitalization Status: Observation sd2 Provider: Polo Barcenas [facility] sd2 Condition: Stable sd2 Problem: new sd2 Symptoms: are unchanged sd2 Bed/Room Type: Standard sd2 Room Assignment: 407(05/15/22 23:20) cg Diagnosis - Fluid overload, unspecified sd2 - ESRD needing dialysis sd2 Forms: - Medication Reconciliation Form sd2 - SBAR form sd2 Signatures: Dispatcher [employer] EDJh Guerrero, ANANYA-C AIR DEFENCE OFFICER-Adri1 Verónica Osorio RN RN cg Umadhay, Felix, RN RN fu Garcia, Victoria, RN RN [facility] Genie Vazquez MD MD sd2 Corrections: (The following items were deleted from the chart) 23:20 21:58 sd2 cg
--- NOTE | 2022-05-15 21:59 | ER ---
Nurse's Notes [facility] Name: Naldo Alejandre Age: 67 yrs Sex: Male : 1955 Arrival Date: 05/15/2022 Time: 18:15 Bed 24 Private MD: Mendez Montez Diagnosis: Fluid overload, unspecified;ESRD needing dialysis Presentation: 05/15 18:36 Chief complaint: Patient states: MO leg swelling, pt is on dialysis MWF, stated did vg1 not go on Tuesday, last dialysis was Tuesday05/12/22. Pt states SOB and weak and tired. Coronavirus screen: Vaccine status: Patient reports being unvaccinated. Client denies travel out of the [place] in the last 14 days. Ebola Screen: Patient negative for fever greater than or equal to 101.5 degrees Fahrenheit, and additional compatible Ebola Virus Disease symptoms. Initial Sepsis Screen: Does the patient meet any 2 criteria? No. Patient's initial sepsis screen is negative. Does the patient have a suspected source of infection? No. Patient's initial sepsis screen is negative. Risk Assessment: Do you want to hurt yourself or someone else? Patient reports no desire to harm self or others. Onset of symptoms was May 14, 2022. 18:36 Method Of Arrival: Ambulatory vg1 18:36 Acuity: TERRI 3 vg1 Triage Assessment: 18:40 General: Appears uncomfortable, Behavior is cooperative. Pain: Complains of pain in vg1 back, right leg and left leg Pain currently is 6 out of 10 on a pain scale. Pain began 2-3 days ago. Neuro: Level of Consciousness is awake, alert, obeys commands, Oriented to person, place, time, situation. Cardiovascular: Dialysis shunt: in the right bicep, with palpable thrill, with auscultated bruit, with no erythema, with no edema, no bleeding noted. Respiratory: Reports shortness of breath at rest on exertion Airway is patent Respiratory effort is even, unlabored. Historical: - Allergies: 18:40 No Known Allergies; vg1 - PMHx: 18:40 Dialysis; M,W,F; ESRD; Hyperlipidemia; Hypertension; kidney disease; LYMPHOMA; vg1 - Immunization history:: Client reports having NOT received the Covid vaccine. - Social history:: Smoking status: Patient reports the use of cigarette tobacco products, denies chronic smoking, but will smoke occasionally. Screenin:28 [facility] ED Fall Risk Assessment (Adult) History of falling in the last 3 months, fu including since admission. [facility] ED Fall Risk Assessment (Adult) History of falling in the last 3 months, including since admission No falls in past 3 months (0 pts). Abuse screen: Denies threats or abuse. Nutritional screening: No deficits noted. Tuberculosis screening: No symptoms or risk factors identified. Assessment: 19:25 General: Appears uncomfortable, Behavior is calm, cooperative, appropriate for age, fu Denies fever, chills. Pain: Complains of pain in right arm and left leg and right leg and back. Neuro: Level of Consciousness is awake, alert, obeys commands, Oriented to person, place, time, situation, Moves all extremities. Gait is steady, Speech is normal, Facial symmetry appears normal. Respiratory: Respiratory effort is labored. Derm: right upper arm HD access, 4+ edema to BLE. 21:29 Reassessment: Patient and/or family updated on plan of care and expected duration. Pain fu level reassessed. Patient is alert, oriented x 3, equal unlabored respirations, skin warm/dry/pink. 21:54 Reassessment: MD at patient's room. fu 22:05 Reassessment: hospitalist in patient's room. fu 23:42 Reassessment: Patient and/or family updated on plan of care and expected duration. Pain fu level reassessed. Patient is alert, oriented x 3, equal unlabored respirations, skin warm/dry/pink. for admission, report called to ELEONORA Nicolas on 4th floor. Vital Signs: 18:36 BP 124 / 82; Pulse 95; Resp 20; Temp 99.0(TE); Pulse Ox 96% on R/A; Weight 99.79 kg; vg1 Height 6 ft. 2 in. (187.96 cm); Pain 6/10; 19:24 BP 124 / 87; Pulse 91; Resp 18; Pulse Ox 98% on R/A; oe 20:15 BP 123 / 89; Pulse 83; Resp 19; Pulse Ox 99% on R/A; Pain 5/10; fu 20:45 BP 128 / 83; Pulse 82; Resp 19; Pulse Ox 98% on R/A; fu 21:15 BP 123 / 90; Pulse 86; Resp 20; Pulse Ox 99% ; fu 21:45 BP 141 / 91; Pulse 90; Resp 19; Pulse Ox 100% on R/A; fu 22:15 BP 134 / 86; Pulse 89; Resp 17; Pulse Ox 100% on R/A; fu 23:00 BP 129 / 88; Pulse 84; Resp 19; Pulse Ox 98% on R/A; fu 18:36 Body Mass Index 28.25 (99.79 kg, 187.96 cm) vg1 ED Course: 18:15 Patient arrived in ED. am2 18:16 Mendez Montez MD is Private Physician. am2 18:39 Triage completed. vg1 18:40 Arm band placed on. vg1 19:08 Genie Vazquez MD is Attending Physician. sd2 19:19 Ervin Morrison, RN is Primary Nurse. fu 19:28 Patient has correct armband on for positive identification. Bed in low position. Call fu light in reach. Pulse ox on. NIBP on. 20:10 Inserted saline lock: 22 gauge in left forearm, using aseptic technique. Blood fu collected. 20:16 Troponin High Sensitivity Sent. fu 20:17 Magnesium Sent. fu 20:17 CMP Sent. fu 20:17 CBC with Diff Sent. fu 20:17 BNP Sent. fu 21:14 Notified ED physician of a critical lab result(s). troponin of 109 Dr Vazquez notified bb of critical creatinine. 21:33 XRAY Chest (1 view) In Process Unspecified. EDMS 21:40 SARS-COV-2 Antigen Rapid Sent. fu 21:40 COVID swab sent to lab. fu 21:45 Initiated transfer to [facility] per Pt request, spoke with Camilo. She stated they do not wm provide emergent services for dialysis at any of their facilities. 21:58 Polo Barcenas MD is Hospitalizing Provider. sd2 23:40 No provider procedures requiring assistance completed. Patient admitted, IV remains in fu place. Administered Medications: 22:05 Drug: Lasix (furosemide) 80 mg Route: IVP; Site: left forearm; fu 23:14 Follow up: Response: No adverse reaction fu Medication: 23:41 VIS not applicable for this client. fu Outcome: 21:58 Decision to Hospitalize by Provider. sd2 23:40 Admitted to Tele accompanied by tech, via wheelchair, room 407, Report called to charles Nicolas RN 23:40 Condition: stable 23:40 Instructed on the need for admit, Demonstrated understanding of instructions. 05/16 00:00 Patient left the ED. fu Signatures: Dispatcher [employer] Michelle Coffman, RN RN Jamir Mix Amanda am2 Ervin Morrison RN RN fu Garcia, Victoria RN Karen Murry Stephanie, MD MD sd2 Corrections: (The following items were deleted from the chart) 05/15 19:34 19:25 Derm: right arm HD access fu fu 21:29 19:25 Derm: right arm HD access, edema to BLE fu fu 21:48 21:45 Initiated transfer to [facility] per Pt request, spoke with Camilo ramírez 21:55 19:25 Derm: right upper arm HD access, 3+ edema to BLE fu fu
[2022-05-15] MEDS ORDERED: FUROSEMIDE 40 MG/4 ML VIAL ONE (22:02)
--- NOTE | 2022-05-15 22:29 | P.HP ---
Certification for Inpatient Patient admitted to: Inpatient With expected LOS: >2 Midnights Patient will require the following post-hospital care: None Practitioner: I am a practitioner with admitting privileges, knowledge of patient current condition, hospital course, and medical plan of care. Services: Services provided to patient in accordance with Admission requirements found in Title 42 Section 412.3 of the Code of Federal Regulations <SpencerJh Ricks - Last Filed: 05/15/22 22:24> Patient History Date of Service: 05/15/22 Reason for admission: ESRD, hypervolemia History of Present Illness: 67-year-old male with history of ESRD, hypertension presents emergency department for shortness of breath. He [place] is dialysis Fridays but on Tuesday he overslept and was unable to receive dialysis. He tried to call his nephrology office and schedule for earlier appointment but he was unable to get in for dialysis. He presents to the emergency department with dyspnea, his labs were significant for creatinine of 11.8 BUN 73, GFR 4 high- sensitivity troponin 102.9 BNP greater than 175,000 hemoglobin 8 hematocrit 25.1 chest x-ray shows pulmonary edema. - Past Medical/Surgical History Diabetic: No -: ESRD/HD- MWF -: HTN -: BPH -: Obesity -: Possible obstructive sleep apnea -: History of lymphoma -: Hyperlipidemia -: Tobacco abuse -: Right hip and pelvic surgery -: Dialysis catheter placement -: Port-A-Cath placement Psychosocial/ Personal History: The patient is and has 3 children. - Family History Father -: Hypertension, Other (see notes) Notes: Multiple sclerosis - Social History Smoking Status: Never smoker Alcohol use: No CD- Drugs: No Caffeine use: Yes Place of Residence: Home <Jh Palmer - Last Filed: 05/15/22 22:24> Date of Service: 05/16/22 <Polo Barcenas - Last Filed: 05/16/22 17:41> Allergies No Known Allergies Allergy (Verified 09/10/21 04:02) Review of Systems 10-point ROS is otherwise unremarkable Respiratory: Shortness of Breath, SOB with Excertion <Jh Palmer - Last Filed: 05/15/22 22:24> Physical Examination - Physical Exam General: Alert, In no apparent distress, Oriented x3 HEENT: Atraumatic, PERRLA, Mucous membr. moist/pink, EOMI, Sclerae nonicteric Neck: Supple, 2+ carotid pulse no bruit, No LAD, Without JVD or thyroid abnormality Respiratory: Clear to auscultation bilaterally, Normal air movement Cardiovascular: Regular rate/rhythm, Normal S1 S2 Capillary refill: <2 Seconds Gastrointestinal: Normal bowel sounds, No tenderness Musculoskeletal: No tenderness Integumentary: No rashes Neurological: Normal speech, Normal strength at 5/5 x4 extr, Normal tone, Normal affect - Studies Laboratory Data (last 24 hrs) 05/15/22 20:14: Sodium 137, Potassium 4.4, BUN 73 H, Creatinine 11.80 H*, Glucose 122 H, Magnesium 2.6 H, Total Bilirubin 0.4, AST 18, ALT 23, Alkaline Phosphatase 70 05/15/22 20:14: WBC 5.20, Hgb 8.0 L, Hct 25.1 L, Plt Count 190 <Jh Palmer - Last Filed: 05/15/22 22:24> - Studies Laboratory Data (last 24 hrs) 05/15/22 20:14: Sodium 137, Potassium 4.4, BUN 73 H, Creatinine 11.80 H*, Glucose 122 H, Magnesium 2.6 H, Total Bilirubin 0.4, AST 18, ALT 23, Alkaline Ph osphatase 70 05/15/22 20:14: WBC 5.20, Hgb 8.0 L, Hct 25.1 L, Plt Count 190 <Polo Barcenas - Last Filed: 05/16/22 17:41> Assessment and Plan - Plan Assessment: Dyspnea, pulmonary edema ESRD on HD MWF HTN HLD Plan: Dyspnea, pulmonary edema ESRD on HD MWF: Nephrology consult in as patient missed HD Tuesday and is overloaded. Troponin elevated, suspect demand ischemia, no STEMI criteria on EKG, no chest pain, will trend. If significant increases are observed with consult cardiology. Given dose of lasix in ED as patient does produce some urine. HTN: Continue home meds once verified. HLD: Continue home meds once verified. DVT PPX: Heparin subcu Code status:full Discharge Plan: Home Plan to discharge in: 24 Hours - Advance Directives Does patient have a Living Will: No Does patient have a Durable POA for Healthcare: No - Code Status/Comfort Care Code Status Assessed: Yes (Full code) Critical Care: No Time Spent Managing Pts Care (In Minutes): 55 <Jh Palmer - Last Filed: 05/15/22 22:24> Physician Review: Patient Assessed, Agree with Above Assessment and Plan <Polo Barcenas - Last Filed: 05/16/22 17:41>
[2022-05-15] MEDS ORDERED: ACETAMINOPHEN 500 MG TAB PO PRN (23:38)
[2022-05-16 03:16] LABS: Absolute Lymphocytes (CBC) 0.5 K/uL (0.7-4.9); Hematocrit 24.2 % (39.6-49.0); Lymphocytes % 9.3 % (15.3-44.8); MCV 87.3 fL (80-100); MPV 8.8 fL (7.6-11.3); RBC Red Blood Cell Count 2.77 M/uL (4.33-5.43)
[2022-05-16 04:14] LABS: Potassium 4.5 mmol/L (3.5-5.1)
[2022-05-16] MEDS ORDERED: PNEUMOCOCCAL VACCINE 0.5 ML IMVAC ONE (08:00)
[2022-05-16] MEDS: HEPARIN 5000 UNIT/ML 1 ML VIAL SQ SCH ×2 (09:54→21:00)
[2022-05-16] MEDS: EPOETIN ALFA 10,000 UNIT/ML VIAL IV SCH (14:30)
--- NOTE | 2022-05-16 16:19 | CON ---
Date of Consultation: 05/16/2022 Reason For Consultation: Elevated BUN and creatinine, fluid management. History Of Present Illness: This is a 67-year-old gentleman, well known to me from the dialysis with significant past medical history of end-stage renal disease on hemodialysis Tuesday, Tuesday, y. According to him, last dialysis was Tuesday. Patient known to be poor compliant with the dialy sis, missing a lot of dialysis and with the fluid restriction. Patient came to the hospital. Accord ing to him, he overslept. So he did not go to the dialysis, came with shortness of breath, found to be overvolume. For that reason, we have been consulted. The patient denied any chest pain. Past Medical History: Include: 1.End-stage renal disease, on hemodialysis, Tuesday, Tuesday, Tuesday. 2.Hypertension. 3.Hyperlipidemia. 4.Obstructive sleep apnea. 5.Benign prostate hypertrophy. Past Surgical History: Include PermCath placement, EGD, AV graft. Family History: Positive for hypertension. Social History: Denied smoking. Ex-smoker. Denied drugs abuse. Allergies: NO KNOWN DRUG ALLERGY. Home Medications: Include metoprolol 100, nifedipine, trazodone, hydralazine, pantoprazole, breathin g treatment, folic acid, lovastatin. Current Medications: The patient on include heparin, Tylenol. Review of Systems: Head and Neck: No red eye. No ear pain. GI: No nausea. No vomiting. : No polyuria. No dysuria. No hematuria. No oliguric. SERVICE DESK LEAD: Not applicable. Respiratory: Has shortness of breath. Cardiovascular: No chest pain. Endocrine: No polydipsia. Skin: No rash. Physical Examination: Vital Signs: When I saw the patient; blood pressure of 125/95, pulse of 89, afebrile. Chest: Crackles, bilateral. Heart: S1, S2. Systolic murmur. Abdomen: Soft, nontender. Extremities: +2 edema. Neurologic: Alert. No focality. Laboratory Data: Chest x-ray; cardiomegaly with congestion. Sodium 139, potassium 4.5, bicarb 27, B UN 79, creatinine 12.4, calcium 8.7. WBC 5.3, hemoglobin 7.8. Assessment And Plan: 1.End-stage renal disease, overvolume. I am going to go ahead and arrange for dialysis today. We w ill do sequential of 2 hours. Then, we will do full dialysis tomorrow and we will follow up. 2.Hypertension. We will utilize blood pressure for more diuresis. 3.Anemia of chronic kidney disease. Resume ABDOUL. 4.Congestive heart failure with exacerbation, overvolume. We will challenge the patient today. 5.Secondary hyperparathyroidism. Resume binder. 6.Alkalosis, going to be corrected with the dialysis. HAILE Voice ID: [id number] Report ID: [id number]
--- NOTE | 2022-05-16 17:27 | P.PN ---
Subjective Date of Service: 05/16/22 Chief Complaint: ESRD, hypervolemia No acute events overnight. He states that he missed dialysis on Tuesday. He reports significant shortness of breath and orthopnea. He denies any chest pain or palpitations. Review of Systems 10-point ROS is otherwise unremarkable Respiratory: Shortness of Breath Cardiovascular: Orthopnea Physical Examination - Vital Signs Temperature: 97.8 F Blood Pressure: 125/95 Pulse: 89 Respirations: 18 Pulse Ox (%): 97 - Physical Exam General: Alert, In no apparent distress, Oriented x3 HEENT: Atraumatic Neck: JVD distended (minimally) Respiratory: Diminished, Crackles/rales (bibasilar) Cardiovascular: Edema (2+ BLE) Capillary refill: <2 Seconds Gastrointestinal: Normal bowel sounds, Soft and benign, Non-distended, No tenderness, No rebound, No guarding Musculoskeletal: No clubbing Integumentary: No rashes Neurological: Normal speech, Cranial nerves 3-12 intact, Normal affect - Studies Laboratory Data (last 24 hrs) 05/15/22 20:14: Sodium 137, Potassium 4.4, BUN 73 H, Creatinine 11.80 H*, Glucose 122 H, Magnesium 2.6 H, Total Bilirubin 0.4, AST 18, ALT 23, Alkaline Phosphatase 70 05/15/22 20:14: WBC 5.20, Hgb 8.0 L, Hct 25.1 L, Plt Count 190 Assessment And Plan - Plan # Hypervolemia in End-Stage Renal Disease on MWF secondary to Missed Dialysis Session - Consult Nephrology and spoke with Dr. Alvarado - recommendations appreciated - Volume removal via hemodialysis - Chest x-ray = "pulmonary edema." - NT-Pro BNP = >175,000 - Daily weights - Strict I/O - Cardiac diet, 1.5 L fluid restriction, 2 g Na restriction # Suspected Type II Non-ST Segment Elevation Myocardial Infarction (Demand Ischemia) due to above - Evaluation thus far: - EKG: without STEMI criteria, trend - Serial troponin: 102.9 -> 90.1 -> 88.1 - Chest x-ray = "pulmonary edema." - Management plan: - Consult Cardiology - recommendations appreciated - Start daily baby aspirin - If cardiac ischemia confirmed, consider starting beta-titi, ALEX- inhibitor/ARB, statin # Hypertension # Hyperlipidemia # Benign Prostatic Hyperplasia - Resume home medications when able # Tobacco Use Disorder - Tobacco cessation counseling provided Polo Barcenas M.D.
[2022-05-16] MEDS: ATORVASTATIN 20 MG TAB PO SCH (21:30)
[2022-05-16] MEDS: TAMSULOSIN 0.4 MG SR CAP PO SCH (21:31)
[2022-05-17 03:42] LABS: Absolute Lymphocytes (CBC) 0.4 K/uL (0.7-4.9); Hematocrit 23.8 % (39.6-49.0); Lymphocytes % 9.9 % (15.3-44.8); MCV 87.3 fL (80-100); MPV 9.9 fL (7.6-11.3); RBC Red Blood Cell Count 2.72 M/uL (4.33-5.43)
[2022-05-17 04:07] LABS: Albumin 2.6 g/dL (3.4-5.0); Phosphorus 5.4 mg/dL (2.5-4.9); Potassium 5.2 mmol/L (3.5-5.1)
[2022-05-17 04:10] VITALS: BMI 28.7
[2022-05-17 04:47] LABS: Blood Morphology Comment NOTED (NOT SEEN); Platelet Estimate ADEQ
[2022-05-17] MEDS: TAMSULOSIN 0.4 MG SR CAP PO SCH ×2 (08:24→20:53)
[2022-05-17] MEDS ORDERED: HYDRALAZINE HCL 25 MG TABLET PO SCH (09:00)
[2022-05-17] MEDS ORDERED: NIFEDIPINE XL 90 MG TABLET PO SCH (09:00)
[2022-05-17] MEDS ORDERED: METOPROLOL TAR 50 MG TAB PO SCH (09:00)
[2022-05-17] MEDS: HEPARIN 5000 UNIT/ML 1 ML VIAL SQ SCH ×2 (10:11→20:53)
--- NOTE | 2022-05-17 16:30 | EKG ---
Test Date: 2022-05-15 Test Time: 20:43:32 Mixer Operator Vacuum Pan Salt: DAVID MEASUREMENT RESULTS: Intervals: Rate: 82 NC: 188 QRSD: 98 QT: 406 QTc: 474 [place]: P: 79 NC: 188 QRS: -72 T: 80 INTERPRETIVE STATEMENTS: Normal sinus rhythm Low voltage QRS Left anterior fascicular block Inferior infarct, age undetermined Cannot rule out Anterior infarct, age undetermined Abnormal ECG Compared to ECG 03/13/2022 06:23:08 Low QRS voltage now present Myocardial infarct finding still present Electronically Signed On 05-17-22 16:27:59 VP REVENUE CYCLE by Lukas Perez
[2022-05-17] MEDS: EPOETIN ALFA 10,000 UNIT/ML VIAL IV SCH (17:45)
--- NOTE | 2022-05-17 20:16 | CON ---
Date of Consultation: 05/17/2022 Reason For Consultation: Congestive heart failure, elevated troponin. History Of Present Illness: A 67-year-old male with history of end-stage renal disease, on hemodialy sis Tuesday, Tuesday, Tuesday. Unsure of compliance. He definitely misses dialysis on Tuesday, comes in with significant shortness of breath, severe swelling of his lower extremities, all the way to hi s waist. Denies having any chest pain, but he is short of breath with significant lower extremity ed rosales. Past Medical History: End-stage renal disease, on hemodialysis; hypertension; enlarged prostate; sle ep apnea. Medications: Refer reconciliation sheet for detailed list. Allergies: NO KNOWN DRUG ALLERGIES. Family History: No premature coronary artery disease or cancer. Social History: Does not smoke or drink. Use any drugs. Review of Systems: All systems reviewed and they were negative except for mentioned in HPI. Physical Examination: Vital Signs: His temperature is 97.0, pulse 75, breathing at 18, blood pressure is 142/92, saturatin g 96%. General: Pleasant middle-aged male, in no apparent distress. Head and Neck: Pupils are equal, reactive to light. Intact eye movements. Positive JVD. No cervic al adenopathy. Neck: Supple. Thyroid is not enlarged. Lungs: Crackles in both bases. No accessory muscle use or muscle retraction. Heart: Regular rate and rhythm with S3, gallop. Abdomen: Soft, nontender. Bowel sounds positive. No organomegaly. No masses or hernia. No rigidi ty or rebound. Extremities: More than 4+ edema all the way to his waist. Neurologic: Alert, awake, oriented x3. No acute focal deficits appreciated. Investigations: BUN is 88, creatinine 13. Troponin is 88 and hemoglobin is 7.5. Assessment/recommendations: 1.Shortness of breath due to severe fluid overload and retention and acute on chronic congestive hea rt failure exacerbation. This patient should get dialysis on daily basis if it is feasible to elimin ate the massive amount of fluids that he is holding on. Strict low-sodium diet is explained and enco uraged and from cardiology standpoint, we will obtain an echocardiogram and further recommendations w ill follow accordingly. 2.Hypertension. Blood pressure is controlled. Continue current management. 3.Dyslipidemia. Continue statin. 4.Elevated troponin. Patient definitely has significant risk factors. I recommend a Lexiscan nucle ar stress test. SR/MODL Voice ID: [id number] Report ID: [id number]
[2022-05-17] MEDS: ATORVASTATIN 20 MG TAB PO SCH (20:53)
[2022-05-17] MEDS ORDERED: IPRATROPIUM BROM 0.5MG/2.5ML NEB PRN (23:38)
[2022-05-17] MEDS ORDERED: ALBUTEROL 2.5 MG/3 ML NEB SOL NEB PRN (23:38)
[2022-05-17 23:42] LABS: Hematocrit 24.9 % (39.6-49.0)
--- NOTE | 2022-05-18 00:22 | PN ---
Date of Progress Note: 05/17/2022 Chief Complaint: End-stage renal disease, fluid overload, shortness of breath, congestive heart fail ure with diastolic dysfunction associated with severe fluid overload. Subjective: The patient has history of noncompliance with dialysis schedule and diet restriction. T he patient presented to the hospital because of severe shortness of breath. He was found to have gen eralized fluid overload, anasarca and urgent dialysis was ordered yesterday. The patient was dialyze d today to obtain negative fluid balance and to control electrolytes and azotemia. The patient has m ultiple medical problems including history of end-stage renal disease, on hemodialysis Tuesday, , and Tuesday; hypertension; hyperlipidemia; obstructive sleep apnea; obesity; BPH; anemia of CKD. Review of Systems: Denies fever or chills. Physical Examination: Lungs: Diminished breath sounds at bases. Few rhonchi. Heart: S1, S2. Abdomen: Soft. Benign. Extremities: Edema present in both legs. Impression And Plan: 1.End-stage renal disease. Dialysis was scheduled today with ultrafiltration. The patient tolerate d treatment. 2.Anemia due to chronic kidney disease. Hemoglobin was 7.8. The patient received blood transfusion during dialysis. 3.Congestive heart failure exacerbation with volume overload. Continue p.o. fluid restriction. Ult rafiltration was done and plan is to continue ultrafiltration with dialysis for maintenance and volem ia control. 4.Secondary hyperparathyroidism. Continue binders to control hyperphosphatemia and continue renal d iet. ERICA/ZEINAB Voice ID: [id number] Report ID: [id number]
[2022-05-18 05:25] VITALS: O2SAT 98
[2022-05-18 06:07] LABS: Albumin 2.5 g/dL (3.4-5.0); Phosphorus 4.3 mg/dL (2.5-4.9)
[2022-05-18 09:17] VITALS: BP 109/84; TEMP 98.1
--- NOTE | 2022-05-18 14:34 | PN ---
Date of Progress Note: 05/18/2022 Subjective: The patient was admitted with over volume. The patient was done daily dialysis. Each d ialysis, we removed 3 L. The patient feeling better. Physical Examination: Vital Signs: Blood pressure 109/84. Chest: Clear to auscultation. Heart: S1, S2. Regular. Systolic murmur. Abdomen: Soft, nontender. Extremities: +2 edema. Neurologic: Alert. No focality. Laboratory Data: Hemoglobin of 8. Sodium 136, potassium 4, bicarb 29, BUN 62, creatinine 9.5, calci um 8.6, phosphorus 4.3. Current Medications: The patient on include; 1.Albuterol. 2.Hydralazine p.r.n. 3.Metoprolol 50 daily. 4.Nifedipine. 5.Flomax. Assessment And Plan: 1.End-stage renal disease, over volume, secondary to poor compliant with treatment, status post gold y dialysis. Currently, the patient still had peripheral edema without any respiratory distress. I h ad long discussion with the patient the need for better compliant with dialysis. The patient verbali zed understanding. The patient cleared from the Renal standpoint for discharge planning to follow up as outpatient, scheduled for dialysis tomorrow. 2.Hypertension. We will continue to utilize blood pressure for more ultrafiltration. 3.Anemia of chronic kidney disease. Continue ABDOUL. 4.Anasarca secondary to poor compliant with dialysis. Reinforce dialysis compliance. We will follo w noman. HAILE Voice ID: [id number] Report ID: [id number]
== END 2022-05-18 10:53 | disposition home or self-care (01) | DRG 291 ==
LOC: ER 18:15 → ERHOLD 22:10 → 4TH 23:40 → OBSVTOIN 05-17 15:58
PROVIDERS: ADMIT Internal Medicine; ATTEND Hospitalist
PROC: 5A1D70Z Performance of Urinary Filtration, Intermittent, Less than 6 Hours Per Day (ICD-10-PCS; principal; 2022-05-16)
PROC: 30233N1 Transfusion of Nonautologous Red Blood Cells into Peripheral Vein, Percutaneous Approach (ICD-10-PCS; 2022-05-17)
DX: I13.2 Hypertensive heart and chronic kidney disease with heart failure and with stage 5 chronic kidney disease, or end stage renal disease (principal); I50.33 Acute on chronic diastolic (congestive) heart failure; N18.6 End stage renal disease; N25.81 Secondary hyperparathyroidism of renal origin; E87.3 Alkalosis; D63.1 Anemia in chronic kidney disease; N40.0 Benign prostatic hyperplasia without lower urinary tract symptoms; G47.33 Obstructive sleep apnea (adult) (pediatric); E78.5 Hyperlipidemia, unspecified; F17.210 Nicotine dependence, cigarettes, uncomplicated; R77.8 Other specified abnormalities of plasma proteins; Z99.2 Dependence on renal dialysis; Z91.15 Patient's noncompliance with renal dialysis; Z28.310 Unvaccinated for COVID-19; Z79.899 Other long term (current) drug therapy; Z20.822 Contact with and (suspected) exposure to COVID-19
CPT/HCPCS: 36415; 71045; 80048; 80053; 80069; 83735; 83880; 84484; 85014; 85018; 85025; 86850; 86900; 86901; 87811; 90935; 93005; 94640; 96374; 99285; G0378; J1644; J1940; J2250; J7613; J7644; P9016

== ENCOUNTER 2022-12-26 13:35 | Emergency (ER) | payer OTHER ==
--- OUTSIDE RECORDS SUMMARY | 2022-12-26 13:59 | XMS REPORT | Continuity of Care Document ---
:1955 Author Organization [facility] t Address [address] [facility] [place] [address] Care Team Providers Name Role Phone No, Pcp [facility] Primary Care Physician Unavailable DANITA HARGROVE Attending Clinician Unavailable JASWINDER WESLEY Attending Clinician Unavailable JASWINDER WESLEY Attending Clinician Unavailable YAZAN BARRY Attending Clinician Unavailable ROSALVA GARZA Attending Clinician Unavailable TATUM SANCHEZ Attending Clinician Unavailable BAYRON GORE Attending Clinician Unavailable BAYRON GORE Attending Clinician Unavailable VASQUEZ CAO Attending Clinician Unavailable Kavita Howard MD Attending Clinician [phone] Beba Thompson MD Attending Clinician Misael NGUYEN, Vasquez Mckeon Attending Clinician Laura NGUYEN, Tatum Attending Clinician Zee MCALLISTER, Divya Attending Clinician DIVYA KOCH Attending Clinician Unavailable Shashi NGUYEN, Jose Zaragoza Attending Clinician Tania NGUYEN, Rosalva Attending Clinician Natan NGUYEN, Amadeo Attending Clinician Shahnaz NGUYEN, Arpit Attending Clinician Worker, Transplant Social Attending Clinician Unavailable Clam Shovel Operator, Transplant Attending Clinician Unavailable Christian NGUYEN, Ronnell Bray Attending Clinician AMADEO GAMA Attending Clinician Unavailable Labs, Lcc Transplant Attending Clinician Unavailable JOSE WEI Attending Clinician Unavailable Renal, Transplant Class Attending Clinician Unavailable Doctor Unassigned, [place] Attending Clinician Unavailable SABINA DUKE Attending Clinician Unavailable Maverick NGUYEN, Aline Russo Attending Clinician [phone] [facility] Attending Clinician [phone] Le Alejandra DO Attending Clinician Reta RN, Alis L Attending Clinician Unavailable Lupillo NGUYEN, Jaswinder Gruber Attending Clinician LE ALEJANDRA Attending Clinician Unavailable Umm Joe Attending Clinician Russel Hooker MD, Andrew Attending Clinician Vikas Jones MD Attending Clinician Jami NGUYEN, Jasen Attending Clinician Agapito NGUYEN, Laya Attending Clinician Darling NGUYEN, Pricilla Attending Clinician Rachel Mackenzie MD Attending Clinician Geen Sanz MD Attending Clinician Radha Narvaez Attending Clinician Unavailable Paulette Hemphill Attending Clinician Unavailable Wayne Kiser Attending Clinician Unavailable Michelle Chau RN Attending Clinician Unavailable Jacklyn Anthony RN Attending Clinician Unavailable Nesha Irizarry Attending Clinician Unavailable JAVIER KIM Attending Clinician Unavailable NOEMI CHINO Attending Clinician Unavailable Noemi Chino MD Attending Clinician [phone] Pema Fowler Attending Clinician Unavailable SIDRA CLARKE Attending Clinician Unavailable Cuong Peralta MD Attending Clinician Sidra Clarke MD Attending Clinician Jarrell Velez MD Attending Clinician Ji Dowell MD Attending Clinician DIYA ROLON Attending Clinician Unavailable Diya Rolon MD Attending Clinician Amandeep Oconnor Attending Clinician AMANDEEP KIRKPATRICK Attending Clinician Unavailable ABHINAV CALDERON Attending Clinician Unavailable KALEN HURTADO Attending Clinician Unavailable JASMIN JOVEL Attending Clinician Unavailable ANDREW GRULLON Attending Clinician Unavailable ARIAN MANUEL Attending Clinician Unavailable ASHIA WORKMAN Attending Clinician Unavailable PETER FAGAN Attending Clinician Unavailable DENI RUBI Attending Clinician Unavailable NICO GOLDMAN Attending Clinician Unavailable TOBY CAO Attending Clinician Unavailable DANITA HARGROVE Admitting Clinician Unavailable JASWINDER WESLEY Admitting Clinician Unavailable YAZAN BARRY Admitting Clinician Unavailable VASQUEZ CAO Admitting Clinician Unavailable Vasquez Cao MD Admitting Clinician ROSALVA GARZA Admitting Clinician Unavailable LAYA ALTMAN Admitting Clinician Unavailable Laya Altman MD Admitting Clinician CUONG PERALTA Admitting Clinician Unavailable DIYA ROLON Admitting Clinician Unavailable AMANDEEP KIRKPATRICK Admitting Clinician Unavailable KALEN HURTADO Admitting Clinician Unavailable JASMIN JOVEL Admitting Clinician Unavailable ANDREW GRULLON Admitting Clinician Unavailable ARIAN MANUEL Admitting Clinician Unavailable PETER FAGAN Admitting Clinician Unavailable DENI RUBI Admitting Clinician Unavailable NICO GOLDMAN Admitting Clinician Unavailable TOBY CAO Admitting Clinician Unavailable Payers Payer Name Policy Type Policy Number Effective Date Expiration Date Sushma orona KEVINGEOVANNI/RONP [id number] 2022 MEDICARE ADVANTAGE 00:00:00 MEDICARE A B [id number] 2016 00:00:00 HUMANA CHOICE [id number] 2021 00:00:00 [employer] [id number] 2021 (MEDICARE 00:00:00 REPLACEMENT HMO) Problems Condition Condition Condition Status Onset Resolution Last Treating Co mments Source Name Details Category Date Date Treatment Clinician Date Chest Chest Disease Active Univers pain, pain, 8-16 it[place] type 00 [facility] Obesity Obesity Disease Active Univers (BMI (BMI 7-13 ity of 30-39.9) 30-39.9) 00:00: 00 Medical Branch HFrEF HFrEF Disease Active Univers (heart (heart 7-13 ity of failure failure 00:00: with with 00 Medical reduced reduced Branch ejection ejection fraction) fraction) Nonrheumat Nonrheumat Disease Active [facility] aortic ic aortic 7-13 ity of valve valve 00:00: [place] stenosis stenosis 00 Medica l Branch Leg edema Leg edema Disease Active Uni vers 7-13 ity of 00:00: 00 Medical Branch Pulmonary Pulmonary Disease Active Uni vers hypertensi hypertensi 7-13 it y of on on 00:00: [place] 00 Medical Branch Flea bite, Flea bite, Disease Active U nivers initial initial 7- it[place] of encounter [place] Cardiomega Cardiomega Disease Active U nivers ly ly 10-01 ity of 00:00: [place] [facility] Heart Heart Disease Active Univers murmur murmur 10-01 ity of 00:00: [place] [facility] COPD COPD Disease Active Univers without without 10-01 ity of exacerbati exacerbati [place] Prediabete Prediabete Disease Active U nivers s s 10-01 ity of 00:00: [place] [facility] Bilateral Bilateral Disease Active Uni vers leg edema leg edema 10-01 ity of 00:00: [place] [facility] BPH with BPH with Disease Active Unive rs urinary urinary 10-01 ity of obstructio obstructio [place] 00 [facility] [place] Generalize Generalize Disease Active Overview : Univers d d 06-04 Formattin ity of abdominal abdominal 00:00: [place] of this [place] pain pain 00 note Medical might be Branch different from the original. Added automatic ally from request for surgery [id number] Nausea and Nausea and Disease Active U nivers vomiting, vomiting, 1-20 ity of unspecifie unspecifie 00:[place] d vomiting 00 Me dical type type Branch Gastrointe Gastrointe Disease Active U nivers stinal stinal 1-19 ity of hemorrhage hemorrhage 00:00: [place] , , 00 Medical unspecifie unspecifie Br anch d d gastrointe gastrointe stinal stinal hemorrhage hemorrhage type type Anemia, Anemia, Disease Active Overview: Univ ers unspecifie unspecifie 1-19 Formattin ity of d type d type 00:00: g of this [place] 00 note Medical might be Branch different from the original. Added automatic ally from request for surgery [id number] Chest pain Chest pain Disease [facility] Anemia Anemia Disease [facility] Mediastina Mediastina Disease Active [facility] lymphadeno lymphadeno 00:00: Me dical nati nati 00 Center Chronic Chronic Disease Recurre [facility] bronchitis bronchitis nce 3-12 [facility] 00:[facility]: Medical 00 Center Left arm Left arm Disease [facility] 2017[facility] Left arm Left arm Disease Active 2017-05 Unive rs swelling swelling 2-21 ity of 00:00: [place] [facility] PAD PAD Disease Recurre 2017-[address] [facility] [address] (periphera (periphera nce 1-13 [facility] l artery l artery 00:00: Medica l disease) disease) 00 Center Excessive Excessive Disease Active 2017-05 Overview: Univers daytime daytime 0-17 Formattin ity o f sleepiness sleepiness 00:00: g of this [place] [id number] note Medical might be Branch different from the original. Last Assessmen t & Plan: Formattin g of this note might be different from the original. ESS 18Will closely follow up after treatment with CPAP initiated Acute deep Acute deep Disease Recurre [facility] vein vein nce 9 [facility] thrombosis thrombosis 00:00: Me dical (DVT) (DVT) 00 Center Peripheral Peripheral Disease Recurre [facility] T cell T cell nce 9 [facility] lymphoma lymphoma 00:00: Medica l of of 00 Center axillary axillary lymph lymph nodes nodes Vascular Vascular Disease Recurre [facility] catheter catheter nce 01-07 kes infection infection 00:00: Medi dimitry 00 Center End stage End stage Disease Recurre [facility] chronic chronic nce 8 [facility] kidney kidney 00:00: Medical disease disease 00 Center HTN HTN Disease Active [facility] (hypertens (hypertens 8-31 [facility] ion) ion) 00:00: Medical 00 Center TIMA TIMA Disease Active Overview: Univer s (obstructi (obstructi 6-11 Formattin ity of ve sleep ve sleep 00:00: g of this [place] apnea) apnea) 00 note Medical might be Branch different from the original. Formattin g of this note might be different from the original. 18:CM S apnea hypopnea index (CMS AHI) of [...] bacteremia 0-27 [facility] 00:00: Medical 00 [place] MSSA MSSA Disease Active 2016-[address] [facility] (methicill (methicill 0-27 [place] k[facility] in in 00:00: Medical susceptibl susceptibl 00 Ce nter e e Staphyloco Staphyloco ccus ccus aureus) aureus) infection infection Metabolic Metabolic Disease Active 2016-[address] [facility] acidosis acidosis 0-24 [facility] 00[facility]: Medical 00 [place] CLABSI CLABSI Disease Active 2016-[address] [facility] (central (central 0-23 [facility] line-assoc line-assoc 00:00: Me dical iated iated 00 [facility] bloodstrea bloodstrea m m infection) infection) Sepsis Sepsis Disease Recurre 2016-[address] nce 0-20 [facility] 00:00: Medical 00 [place] Peripheral Peripheral Disease Recurre [facility] T-cell T-cell nce 4-19 [facility] lymphoma lymphoma 00:00: Medica l of lymph of lymph 00 Center nodes of nodes of head, head, face, or face, or neck neck Admission Admission Disease Active [facility] for for 4-19 [facility] antineopla antineopla 00:00: Me dical stic stic 00 Center chemothera chemothera py py Port-A-Cat Port-A-Cat Disease Active U nivers h in place h in place 3-08 it y of 00:00: [address] Branch T-cell T-cell Disease Recurre [facility] lymphoma lymphoma nce 3-08 [facility] 00:00: Medical 00 [place] Lymphoma Lymphoma Disease Recurre [facility] nce 2-15 [facility] 00:[facility]: Medical 00 Center Encounter Encounter Disease Active [facility] for for 2-15 [facility] antineopla antineopla 00:00: Me dical stic stic 00 Center chemothera chemothera py py T-cell T-cell Disease Active [facility] acute acute 2-15 [facility] lymphoblas lymphoblas 00:00: Me dical tic tic 00 Center 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 acute acute 1-12 ity of lymphoblas lymphoblas 00:[place] tic tic 00 Medical leukemia leukemia Branch (ALL) (ALL) Lymphoma Lymphoma Disease Recurre [facility] nce 1-12 [facility] 00:[facility]: Medical 00 Center ALL (acute ALL (acute Disease Recurre [facility] lymphoblas lymphoblas nce 1-12 [facility] k[facility] tic tic 00:00: Medical leukemia) leukemia) 00 Cent er Encounter Encounter Disease Active [facility] for for 1-12 [facility] chemothera chemothera 00:00: Me dical py py 00 Center management management Peripheral Peripheral Disease Active 2015-05 Overview : Univers T-cell T-cell 2-27 Formattin ity of lymphoma lymphoma 00:00: g of this [place] 00 note Medical might be Branch different from the original. Formattin g of this note might be different from the original. Updated from 2018 IMO Regulator y 1 Chemothera Chemothera Disease Active 2015-05 U nivers py induced py induced 27 it y of neutropeni neutropeni 00:[place] a 00 Medical Branch UTI UTI Disease Active 2015-[address] [facility] [address] (urinary (urinary 2-18 [facility] tract tract 00:00: Medical infection) infection) 00 Ce nter T-cell T-cell Disease Active 2015-05 Univers lymphoma lymphoma 2-16 ity of 00:00: [address] Branch Lymphoma Lymphoma Disease Active 2015-05 [facility] Center Hypertensi Hypertensi Disease Recurre 2015-[address] [facility] on on nce 2-14 [facility] 00:[facility]: Medical 00 Center ESRD (end ESRD (end Disease Recurre 2015-[address] stage stage nce 2-14 [facility] renal renal 00:00: Medical disease) disease) 00 Center on on dialysis dialysis Hyperchole Hyperchole Disease Active 2015-[address] steremia steremia 2-14 [facility] 00:00: Medical 00 Center Neck Neck Disease Active 2015-[address] [facility] swelling swelling 2-13 [facility] 00:[facility]: Medical 00 Center SOB SOB Disease Active 2015-[address] [facility] (shortness (shortness 2-12 [facility] k[facility] of breath) of breath) 00:00: Me dical 00 Center Stridor Stridor Disease Active 2015-[address] [facility] 2[facility]12 [facility] 00:00: Medical 00 Center Dyslipidem Dyslipidem Disease Active U nivers ia ia 8-19 ity of 00:00: [place] [facility] ESRD (end ESRD (end Disease Active Uni vers stage stage 6-29 ity of renal renal 00:00: [place] disease) disease) 00 Medica l on on Branch dialysis dialysis ESRD (end ESRD (end Disease Active Uni vers stage stage 6-29 ity of renal renal 00:00: [place] disease) disease) 00 Medica l Branch Stage 5 Stage 5 Disease Active Univers chronic chronic 6-23 ity of kidney kidney 00:00: [place] disease disease 00 Medical Branch Submandibu Submandibu Disease Active U nivers lar gland lar gland 6-23 ity of mass mass 00:00: [place] [facility] Acute Acute Disease Active Univers renal renal 6-22 ity of failure failure 00:00: [place] [address] Medical Branch Essential Essential Disease Active Uni vers hypertensi hypertensi 6-22 it y of on on 00:00: [place] [facility] Atypical Atypical Disease Active Unive rs chest pain chest pain 6-22 it y of 00:00: [address] Allergies, Adverse Reactions, Alerts Allergy Allergy Status Severity Reaction(s) Onset Inactive Treating Comm ents Source Name Type Date Date Clinician NO KNOWN Allergy Active [facility] NO KNOWN Drug Active [facility] [place] ALLERGIE Class ity of S [facility] Family History Family Member Diagnosis Comments Start Date Stop Date Source Natural daughter No Known Problem [facility] Natural son No Known Problem [facility] Natural brother Kidney disease [facility] Natural father Hypertension [facility] Natural mother Hypertension [facility] Paternal grandfather Cancer [facility] Natural sister Breast cancer [facility] Social History Social Habit Start Date Stop Date Quantity Comments Source History SDOH Social Unive rsity of Connections [facility] Together Branch History SDOH Social Unive rsity of Connections [facility] Medical Branch History SDOH Social Unive rsity of Connections [place] [facility] Membership Branch History SDOH Social Unive rsity of Connections [place] [facility] Meetings Branch Gender identity Universit y of [facility] Branch Sexual orientation Univer sity of [place] [facility] Cigarettes smoked 2022-10-01 2022-10-01 Univers ity of current (pack per 00:00:00 00:00:00 [facility] - Reported Branch Cigarette 2022-10-01 2022-10-01 University of pack-years 00:00:00 00:00:00 [place] [facility] History of Social 2022-10-01 2022-10-01 Univers ity of function 00:00:00 00:00:00 [facility] Branch Exposure to 2022-05-17 2022-05-27 Not sure University of SARS-CoV-2 (event) 00:00:00 00:20:00 [place] [facility] History SDOH Social 2022-05-27 2022-05-27 2 Unive rsity of Connections Phone 00:00:00 00:00:00 [facility] edical Branch History SDOH Social 2022-05-27 2022-05-27 5 Unive rsity of Connections Living 00:00:00 00:00:00 [place] [facility] History SDOH 2022-05-27 2022-05-27 0 University o f Physical Activity 00:00:00 00:00:00 [facility] edical DPW Branch History SDOH 2022-05-27 2022-05-27 0 University o f Physical Activity 00:00:00 00:00:00 [place] M edical MPS Branch History SDOH 2022-05-27 2022-05-27 1 University o f Alcohol Frequency 00:00:00 00:00:00 [place] M edical Branch History SDOH 2022-05-27 2022-05-27 4 University o f Financial 00:00:00 00:00:00 [place] [facility] History SDOH Food 2022-05-27 2022-05-27 1 Univers ity of Worry 00:00:00 00:00:00 [place] [facility] History SDOH Food 2022-05-27 2022-05-27 1 Univers ity of Scarcity 00:00:00 00:00:00 [place] [facility] History SDOH 2022-05-27 2022-05-27 2 University o f Transport Med 00:00:00 00:00:00 [place] Medic al Branch History SDOH 2022-05-27 2022-05-27 2 University o f Transport Non-Med 00:00:00 00:00:00 [place] M edical Branch History SDOH 2022-05-27 2022-05-27 0 University o f Alcohol Std Drinks 00:00:00 00:00:00 [place] [facility] History SDOH 2022-05-27 2022-05-27 1 University o f Alcohol Binge 00:00:00 00:00:00 [place] Medic al Branch Tobacco use and 2021-09-01 2021-09-[address] [facility] kes exposure 00:00:00 00:00:[address] [facility] tobacco Alcohol intake 2021-09-01 2021-09-[address] Andi es 00:00:00 00:00:00 non-drinker of Medical Ce nter alcohol (finding) Tobacco Comment 2021-09-01 2021-09-012020 [facility] kes 00:00:00 00:00:[address] [facility] Alcohol Comment 2016-02-11 2016-02-11 Sober for last Unive rsity of 00:00:00 00:00:00 year [facility] History of tobacco 2015-12-08 Chews Tobacco Uni versity of use 00:00:00 [facility] Sex [birth year] M ZULEYKA George 00:00:00 00:00:[address] [facility] Smoking Status Start Date Stop Date Source Ex-smoker 2022-10-01 00:00:00 2022-10-01 00:00:00 [facility] Medications Ordered Filled Start Stop Current Ordering Indication Dosage Frequency Signature Comments Components Source Medication Medication Date Date Medication? Clinician (SIG) Name Name famotidine Yes 10mg 10 mg, Unive rs (PEPCID AC) 8-18 Oral, ity of tablet 10 14:00: DAILY, [place] mg 00 First dose Medical on Tue Branch 12/24/22 at 0900, Until Discontinu ed, Routine atorvastati Yes 40mg 40 mg, Univ ers n (LIPITOR) 8-17 Oral, QPM, it y of tablet 40 22:00: [place] mg 00 on [place] [facility] 12/23/22 at Branch 1700, Until Discontinu ed, Routine tiotropium 2022-0 Yes Inhale. Univ ers bromide 8-17 ity of 1.25 17:45: [place] mcg/actuati 59 Medical on Mist Branch ferrous 2022-0 Yes 325mg Take 1 Univers sulfate 8-17 tablet by ity of (IRON) 325 17:45: mouth in [place] mg (65 mg 59 the Medical iron) morning. Branch tablet HYDROcodone 2022-0 Yes 2745 1{tbl} Take 1 Un rachel -acetaminop 8-17 tablet by ity of hen 10-325 17:45: mouth [place] mg tablet 59 every 6 Medical (six) Branch hours as needed for Pain (scale 7-10). Indication s: chronic pain tiotropium 2022-0 Yes Inhale. Univ ers bromide 8-17 ity of 1.25 17:45: [place] mcg/actuati 59 Medical on Mist Branch ferrous 0 Yes 325mg Take 1 Univers sulfate 8-17 tablet by ity of (IRON) 325 17:45: mouth in [place] mg (65 mg 59 the Medical iron) morning. Branch tablet HYDROcodone 2022-0 Yes 2745 1{tbl} Take 1 Un rachel -acetaminop 8-17 tablet by ity of hen 10-325 17:45: mouth [place] mg tablet 59 every 6 Medical (six) Branch hours as needed for Pain (scale 7-10). Indication s: chronic pain sulfur 0 2022- No [id number] 5mL 5 mL, Univer s hexafluorid 12-23 Intravenou i ty of e microsphr 15:15: 15:15 s, ONCE, 1 [place] (LUMASON) 00 :00 dose, On Medica l injection 5 [place] Branch mL 12/23/22 at 1015, Routine
cruise staff member approving Restricted medication : ROSALVA GARZA clopidogreL 0 Yes 75mg 75 mg, Univ ers (PLAVIX) 75 12-23 Oral, ity of mg tablet 14:00: DAILY, [place] 75 mg 00 First dose Medical on [place] Branch 12/23/22 at 0900, Until Discontinu ed, Routine
cruise staff member approving Restricted medication : VASQUEZ CAO aspirin 2022-0 Yes 81mg 81 mg, Univers chewable 12-23 Oral, ity of tablet 81 14:00: DAILY, [place] mg 00 First dose Medical on [facility] Branch 12/23/22 at 0900, Until Discontinu ed, Routine docusate 2022-0 Yes 100mg 100 mg, Unive rs (COLACE) 12-23 Oral, ity of capsule 100 14:00: DAILY, [place] 00 First dose Medical on [facility] Branch 12/23/22 at 0900, Until Discontinu ed, Routine metoprolol 2022-0 Yes 12.5mg 12.5 mg, U nivers tartrate 12-23 Oral, BID, ity o f (LOPRESSOR) 13:00: First dose [place] tablet 12.5 00 on [facility] Medica l mg 12/23/22 at Branch 0800, Until Discontinu ed, Routine heparin 2022-0 Yes 5000U 5,000 Univers (porcine) 12-23 Units, ity of injection 13:00: [place]cut[place]o [place] 5,000 Units 00 us, Q12H, Med ical First dose Branch on [facility] 12/23/22 at 0800, Until Discontinu ed, Routine famotidine 2022-0 202- No 20mg 20 mg, Univ ers (PEPCID AC) 12-23 Oral, BID, i ty of tablet 20 13:00: 15:51 First dose [place] mg 00 :57 on [facility] Medical 12/23/22 at Branch 0800, Until Discontinu ed, Routine nitroglycer 2022-0 Yes .4mg 0.4 mg, Uni vers in 12-23 Sublingual ity of (NITROSTAT) 02:08: , Q5MIN [place] sublingual 59 PRN, Medical tablet 0.4 Starting Branc h mg on Tue12/22/22 at 2108, Until Discontinu ed, Routine, Chest pain metoclopram 2022-0 Yes 5mg 5 mg, Slow Univers sarmad HCl 12-23 IV Push, ity of (REGLAN) 02:08: Q8HPRN, 3 [place] injection 5 30 doses, Medica l mg Starting Branch on Tue12/22/22 at 2108, Until Discontinu ed, Routine, Nausea and Vomiting (N/V) ondansetron 0 Yes 4mg 4 mg, Slow Univers (ZOFRAN 8-17 IV Push, ity of (PF)) 02:07: Q4HPRN, [place] injection 4 52 Starting Medi dimitry mg on Tue Branch 12/22/22 at 2106, Until Discontinu ed, Routine, Nausea and Vomiting (N/V) HYDROcodone 2022-0 202- Yes 1{tbl} 1 tablet, Univers -acetaminop -23 12-19 Oral, ity of hen (NORCO 02:07: 02:06 Q6HPRN, [place] 5) 5-325 mg 39 :39 Starting Medi dimitry tablet 1 on Tue Branch tablet 12/22/22 at 2106, Until 12/24/22 at 2105, Routine, Pain (scale 4-6) HYDROcodone 2022-0 Yes 1{tbl} 1 tablet, Univers -acetaminop 8-17 Oral, ity of hen (NORCO) 02:07: Q6HPRN, [place] 10-325 mg 34 Starting Medica l tablet 1 on Tue Branch tablet 12/22/22 at 2106, Until Discontinu ed, Routine, Pain (scale 7-10) acetaminoph 2022-0 Yes 650mg 650 mg, Un rachel en 8-17 Oral, ity of (TYLENOL) 02:07: Q6HPRN, [place] tablet 650 20 Starting Medic al mg on Tue Branch 12/22/22 at 2106, Until Discontinu ed, Routine, Pain (scale 1-3) aspirin 81 2022-0 202- Yes [id number] 81mg Take 1 U nivers mg chewable 12-23 tablet by it y of tablet 00:00: 04:59 mouth in [place] 00 :00 the Medical morning Branch for 30 days. proMETHazin 2022-0 2022- No 25mg 25 mg, IV Univers e 12-23 Piggyback, ity of (PHENERGAN) 00:00: 00:32 ONCE, 1 [place] 25 mg in 00 :00 dose, On Medical NaCl 0.9% Tue Branch (NS) 50 mL 12/22/22 at IV 1900, LORI piggyback HYDROcodone 2022-0 Yes 2745 1{tbl} Take 1 Un rachel -acetaminop 8-16 tablet by ity of hen 10-325 22:39: mouth [place] mg tablet 22 every 6 Medical (six) Branch hours as needed for Pain (scale 7-10). Indication s: chronic pain ferrous 2022-0 Yes 325mg Take 1 Univers sulfate 8-16 tablet by ity of (IRON) 325 22:34: mouth in [place] mg (65 mg 01 the Medical iron) morning. Branch tablet tiotropium 2022-0 Yes Inhale. Univ ers bromide - ity of 1.25 21:56: [place] mcg/actuati 41 Medical on Mist Branch ondansetron 2022-0 2023- No 4mg 4 mg, Slow Univers (ZOFRAN 12-22 IV Push, ity of (PF)) 19:45: 19:46 ONCE, 1 [place] injection 4 00 :00 dose, On Medi dimitry mg Wed Branch 12/22/22 at 1445, LORI morpHINE (4 2022-0 2022- No 4mg 4 mg, Slow Univers mg/mL) 12-22 IV Push, ity of injection 4 19:45: 19:46 ONCE, 1 [place] mg 00 :00 dose, On Medical Wed Branch 12/22/22 at 1445, STAT ondansetron 2022-0 3- No 4mg 4 mg, Slow Univers (ZOFRAN 12-22 IV Push, ity of (PF)) 18:45: 18:56 ONCE, 1 [place] injection 4 00 :00 dose, On Medi dimitry mg Tue Branch 12/22/22 at 1345, LORI dicyclomine 3-0 Yes [id number] 20mg Take 1 [facility] 20 mg 8-16 tablet by it[facility] of tablet 00:00: mouth [place] 00 every 6 Medical (six) Branch hours as needed for Abdominal pain. ondansetron 3-0 Yes [id number] 4mg Take 1 [facility] (ZOFRAN) 4 8-16 tablet by ity of mg tablet 00:00: mouth [place] 00 every 8 Medical (eight) Branch hours as needed for Nausea and Vomiting (N/V). dicyclomine 2023-0 Yes [id number] 20mg Take 1 [facility] 20 mg 8-16 tablet by ity of tablet 00:00: mouth [place] 00 every 6 Medical (six) Branch hours as needed for Abdominal pain. ondansetron 2023-0 Yes [id number] 4mg Take 1 [facility] (ZOFRAN) 4 8-16 tablet by ity of mg tablet 00:00: mouth [place] 00 every 8 Medical (eight) Branch hours as needed for Nausea and Vomiting (N/V). dicyclomine 3-0 Yes [id number] 20mg Take 1 [facility] 20 mg 8-16 tablet by ity of tablet 00:00: mouth [place] 00 every 6 Medical (six) Branch hours as needed for Abdominal pain. ondansetron 2023-0 Yes [id number] 4mg Take 1 [facility] (ZOFRAN) 4 8-16 tablet by ity of mg tablet 00:00: mouth [place] 00 every 8 Medical (eight) Branch hours as needed for Nausea and Vomiting (N/V). hydrOXYzine 3-0 Yes [id number] 25mg Take 1 [facility] 25 mg 8-04 tablet by ity of tablet 00:00: mouth in [place] 00 the Medical morning Branch and 1 tablet in the evening. calamine-zi 2023-0 Yes [id number] Apply to [facility] nc oxide 8-04 area(s) as ity o f lotion 00:00: needed for [place] Itching, Medical Skin Branch irritation or Rash. hydrOXYzine 2022-0 Yes [id number] 25mg Take 1 [facility] 25 mg 8-04 tablet by ity of tablet 00:00: mouth in [place] 00 the Medical morning Branch and 1 tablet in the evening. calamine-zi 3-0 Yes [id number] Apply to [facility] nc oxide 8-04 area(s) as ity o f lotion 00:00: needed for [place] Itching, Medical Skin Branch irritation or Rash. hydrOXYzine 3-0 Yes [id number] 25mg Take 1 [facility] 25 mg 8-04 tablet by ity of tablet 00:00: mouth in [place] 00 the Medical morning Branch and 1 tablet in the evening. calamine-zi 2023-0 Yes [id number] Apply to [facility] [place] nc oxide 8-04 area(s) as ity o f lotion 00:00: needed for [place] Itching, Medical Skin Branch irritation or Rash. hydrOXYzine 2023-0 Yes [id number] 25mg Take 1 [facility] 25 mg 8-04 tablet by ity of tablet 00:00: mouth in [place] 00 the Medical morning Branch and 1 tablet in the evening. calamine-zi 2023-0 Yes [id number] Apply to [facility] nc oxide 8-04 area(s) as ity o f lotion 00:00: needed for [place] 00 Itching, Medical Skin Branch irritation or Rash. hydrOXYzine 2023-0 Yes [id number] 25mg Take 1 [facility] 25 mg 8-04 tablet by ity of tablet 00:00: mouth in [place] 00 the Medical morning Branch and 1 tablet in the evening. calamine-zi 202-0 Yes [id number] Apply to [facility] nc oxide 8-04 area(s) as ity o f lotion 00:00: needed for [place] 00 Itching, Medical Skin Branch irritation or Rash. hydrOXYzine 3-0 Yes [id number] 25mg Take 1 [facility] 25 mg 8-04 tablet by ity of tablet 00:00: mouth in [place] 00 the Medical morning Branch and 1 tablet in the evening. calamine-zi 202-0 Yes [id number] Apply to [facility] nc oxide 8-04 area(s) as ity o f lotion 00:00: needed for [place] 00 Itching, Medical Skin Branch irritation or Rash. hydrOXYzine 2022-0 Yes [id number] 25mg Take 1 [facility] 25 mg 8-04 tablet by ity of tablet 00:00: mouth in [place] 00 the Medical morning Branch and 1 tablet in the evening. calamine-zi 2022-0 Yes [id number] Apply to [facility] nc oxide 8-04 area(s) as ity o f lotion 00:00: needed for [place] 00 Itching, Medical Skin Branch irritation or Rash. permethrin 2022-0 2022- No [id number] Apply to [facility] 5 % cream 12-10-05 area(s) ity of 00:00: 04:59 once now [place] 00 :00 for 1 Medical dose. Branch Apply and leave on for 12 hours. Then wash off. permethrin 2022-0 2022- No [id number] Apply to [facility] 5 % cream 12-10-05 area(s) ity of 00:00: 04:59 once now [place] 00 :00 for 1 Medical dose. Branch Apply and leave on for 12 hours. Then wash off. sulfur 2022-0 2022- No [id number] 5mL 5 mL, [facility] ers hexafluorid 7-25 07-25 Intravenou i ty of e microsphr 20:30: 20:27 s, ONCE, 1 [place] (LUMASON) 00 :00 dose, On Medica l injection 5 Tue Branch mL 11/30/22 at 1530, Routine
cruise staff member approving Restricted medication : IDANIA ALEJANDRAFariha fluticasone 2023-0 Yes [id number] 1{puff} Inhale 1 [facility] -umeclidin- 7-10 Puff in ity o f vilanter 00:00: the [place] (TRELEGY 00 morning. Medical ELLIPTA) Branch 100-62.5-25 mcg DsDv fluticasone 2023-0 Yes [id number] 1{puff} Inhale 1 [facility] -umeclidin- 7-10 Puff in ity o f vilanter 00:00: the [place] (TRELEGY morning. Medical ELLIPTA) Branch 100-62.5-25 mcg DsDv fluticasone 2023-0 Yes [id number] 1{puff} Inhale 1 [facility] -umeclidin- 7-10 Puff in ity o f vilanter 00:00: the [place] (TRELEGY 00 morning. Medical ELLIPTA) Branch 100-62.5-25 mcg DsDv fluticasone 2023-0 Yes [id number] 1{puff} Inhale 1 [facility] -umeclidin- 7-10 Puff in ity o f vilanter 00:00: the [place] (TRELEGY 00 morning. Medical ELLIPTA) Branch 100-62.5-25 mcg DsDv fluticasone 2023-0 Yes [id number] 1{puff} Inhale 1 [facility] -umeclidin- 7-10 Puff in ity o f vilanter 00:00: the [place] (TRELEGY 00 morning. Medical ELLIPTA) Branch 100-62.5-25 mcg DsDv fluticasone 2023-0 Yes [id number] 1{puff} Inhale 1 [facility] -umeclidin- 7-10 Puff in ity o f vilanter 00:00: the [place] (TRELEGY 00 morning. Medical ELLIPTA) Branch 100-62.5-25 mcg DsDv fluticasone 2023-0 Yes [id number] 1{puff} Inhale 1 [facility] -umeclidin- 7-10 Puff in ity o f vilanter 00:00: the [place] (LEGY . Medical ELLIPTA) Branch 100-62.5-25 mcg DsDv fluticasone 2023-0 Yes [id number] 1{puff} Inhale 1 [facility] -umeclidin- 7-10 Puff in ity o f vilanter 00:00: the [place] (LEGY . Medical ELLIPTA) Branch 100-62.5-25 mcg DsDv fluticasone 2023-0 Yes [id number] 1{puff} Inhale 1 [facility] -umeclidin- 7-10 Puff in ity o f vilanter 00:00: the [place] (LEGY . Medical ELLIPTA) Branch 100-62.5-25 mcg DsDv fluticasone 2023-0 Yes [id number] 1{puff} Inhale 1 [facility] -umeclidin- 7-10 Puff in ity o f vilanter 00:00: the [place] (LEGY . Medical ELLIPTA) Branch 100-62.5-25 mcg DsDv fluticasone 2023-0 Yes [id number] 1{puff} Inhale 1 [facility] -umeclidin- 7-10 Puff in ity o f vilanter 00:00: the [place] (LEGY . Medical ELLIPTA) Branch 100-62.5-25 mcg DsDv fluticasone 2023-0 Yes [id number] 1{puff} Inhale 1 [facility] -umeclidin- 7-10 Puff in ity o f vilanter 00:00: the [place] (LEGY . Medical ELLIPTA) Branch 100-62.5-25 mcg DsDv fluticasone 2023-0 Yes [id number] 1{puff} Inhale 1 [facility] -umeclidin- 7-10 Puff in ity o f vilanter 00:00: the [place] (LEGY . Medical ELLIPTA) Branch 100-62.5-25 mcg DsDv fluticasone 2023-0 Yes [id number] 1{puff} Inhale 1 [facility] -umeclidin- 7-10 Puff in ity o f vilanter 00:00: the [place] (LEGY 00 morning. Medical ELLIPTA) Branch 100-62.5-25 mcg DsDv fluticasone 2023-0 Yes [id number] 1{puff} Inhale 1 [facility] -umeclidin- 7-10 Puff in ity o f vilanter 00:00: the [place] (TRELEGY 00 morning. Medical ELLIPTA) Branch 100-62.5-25 mcg DsDv fluticasone 2023-0 Yes [id number] 1{puff} Inhale 1 [facility] -umeclidin- 7-10 Puff in ity o f vilanter 00:00: the [place] (TRELEGY 00 morning. Medical ELLIPTA) Branch 100-62.5-25 mcg DsDv fluticasone 2023-0 Yes [id number] 1{puff} Inhale 1 [facility] -umeclidin- 7-10 Puff in ity o f vilanter 00:00: the [place] (TRELEGY 00 morning. Medical ELLIPTA) Branch 100-62.5-25 mcg DsDv fluticasone 2023-0 Yes [id number] 1{puff} Inhale 1 [facility] -umeclidin- 7-10 Puff in ity o f vilanter 00:00: the [place] (TRELEGY 00 morning. Medical ELLIPTA) Branch 100-62.5-25 mcg DsDv fluticasone 2023-0 Yes [id number] 1{puff} Inhale 1 [facility] -umeclidin- 7-10 Puff in ity o f vilanter 00:00: the [place] (TRELEGY 00 morning. Medical ELLIPTA) Branch 100-62.5-25 mcg DsDv fluticasone 2023-0 Yes [id number] 1{puff} Inhale 1 [facility] -umeclidin- 7-10 Puff in ity o f vilanter 00:00: the [place] (TRELEGY 00 morning. Medical ELLIPTA) Branch 100-62.5-25 mcg DsDv fluticasone 2023-0 Yes [id number] 1{puff} Inhale 1 [facility] -umeclidin- 7-10 Puff in ity o f vilanter 00:00: the [place] (TRELEGY 00 morning. Medical ELLIPTA) Branch 100-62.5-25 mcg DsDv fluticasone 2023-0 Yes [id number] 1{puff} Inhale 1 [facility] -umeclidin- 7-10 Puff in ity o f vilanter 00:00: the [place] (LEGY . Medical ELLIPTA) Branch 100-62.5-25 mcg DsDv fluticasone 2023-0 Yes [id number] 1{puff} Inhale 1 [facility] -umeclidin- 7-10 Puff in ity o f vilanter 00:00: the [place] (LEGY . Medical ELLIPTA) Branch 100-62.5-25 mcg DsDv fluticasone 2023-0 Yes [id number] 1{puff} Inhale 1 [facility] -umeclidin- 7-10 Puff in ity o f vilanter 00:00: the [place] (LEGY . Medical ELLIPTA) Branch 100-62.5-25 mcg DsDv fluticasone 2023-0 Yes [id number] 1{puff} Inhale 1 [facility] -umeclidin- 7-10 Puff in ity o f vilanter 00:00: the [place] (LEGY . Medical ELLIPTA) Branch 100-62.5-25 mcg DsDv fluticasone 2023-0 Yes [id number] 1{puff} Inhale 1 [facility] -umeclidin- 7-10 Puff in ity o f vilanter 00:00: the [place] (LEGY . Medical ELLIPTA) Branch 100-62.5-25 mcg DsDv fluticasone 2023-0 Yes [id number] 1{puff} Inhale 1 [facility] -umeclidin- 7-10 Puff in ity o f vilanter 00:00: the [place] (LEGY . Medical ELLIPTA) Branch 100-62.5-25 mcg DsDv fluticasone 2023-0 Yes [id number] 1{puff} Inhale 1 [facility] -umeclidin- 7-10 Puff in ity o f vilanter 00:00: the [place] (TRELEGY . Medical ELLIPTA) Branch 100-62.5-25 mcg DsDv fluticasone 2023-0 Yes [id number] 1{puff} Inhale 1 [facility] -umeclidin- 7-10 Puff in ity o f vilanter 00:00: the [place] (TRELEGY 00 morning. Medical ELLIPTA) Branch 100-62.5-25 mcg DsDv fluticasone 2023-0 Yes [id number] 1{puff} Inhale 1 [facility] -umeclidin- 7-10 Puff in ity o f vilanter 00:00: the [place] (TRELEGY 00 morning. Medical ELLIPTA) Branch 100-62.5-25 mcg DsDv fluticasone 2023-0 Yes [id number] 1{puff} Inhale 1 [facility] -umeclidin- 7-10 Puff in ity o f vilanter 00:00: the [place] (TRELEGY 00 morning. Medical ELLIPTA) Branch 100-62.5-25 mcg DsDv fluticasone 2023-0 Yes [id number] 1{puff} Inhale 1 [facility] -umeclidin- 7-10 Puff in ity o f vilanter 00:00: the [place] (TRELEGY 00 morning. Medical ELLIPTA) Branch 100-62.5-25 mcg DsDv fluticasone 2023-0 Yes [id number] 1{puff} Inhale 1 [facility] -umeclidin- 7-10 Puff in ity o f vilanter 00:00: the [place] (TRELEGY 00 morning. Medical ELLIPTA) Branch 100-62.5-25 mcg DsDv fluticasone 2023-0 Yes [id number] 1{puff} Inhale 1 [facility] -umeclidin- 7-10 Puff in ity o f vilanter 00:00: the [place] (TRELEGY 00 morning. Medical ELLIPTA) Branch 100-62.5-25 mcg DsDv hydrALAZINE 2023-0 Yes [id number] 50mg Take 1 [facility] 50 mg 7-05 tablet by ity of tablet 00:00: mouth at [place] 00 bedtime. Medical Branch terazosin 2 2023-0 Yes [id number] 4mg Take 2 [facility] mg capsule 7-05 capsules ity o f 00:00: by mouth [place] 00 at Medical bedtime. Branch hydrALAZINE 2023-0 Yes [id number] 50mg Take 1 [facility] 50 mg 7-05 tablet by ity of tablet 00:00: mouth at [place] 00 bedtime. Medical Branch terazosin 2 2023-0 Yes [id number] 4mg Take 2 [facility] mg capsule 7-05 capsules ity o f 00:00: by mouth [place] at Medical bedtime. Branch hydrALAZINE 2022-0 Yes [id number] 50mg Take 1 [facility] 50 mg 7-05 tablet by ity of tablet 00:00: mouth at [place] bedtime. Medical Branch terazosin 2 2022-0 Yes [id number] 4mg Take 2 [facility] mg capsule 7-05 capsules ity o f 00:00: by mouth [place] at Medical bedtime. Branch hydrALAZINE 2022-0 Yes [id number] 50mg Take 1 [facility] 50 mg 7-05 tablet by ity of tablet 00:00: mouth at [place] [address] bedtime. Medical Branch terazosin 2 2022-0 Yes [id number] 4mg Take 2 [facility] mg capsule 7-05 capsules ity o f 00:00: by mouth [place] at Medical bedtime. Branch hydrALAZINE 2022-0 Yes [id number] 50mg Take 1 [facility] 50 mg 7-05 tablet by ity of tablet 00:00: mouth at [place] [address] bedtime. Medical Branch terazosin 2 2022-0 Yes [id number] 4mg Take 2 [facility] mg capsule 7-05 capsules ity o f 00:00: by mouth [place] at Medical bedtime. Branch hydrALAZINE 2022-0 Yes [id number] 50mg Take 1 [facility] 50 mg 7-05 tablet by ity of tablet 00:00: mouth at [place] [address] bedtime. Medical Branch terazosin 2 2022-0 Yes [id number] 4mg Take 2 [facility] mg capsule 7-05 capsules ity o f 00:00: by mouth [place] at Medical bedtime. Branch hydrALAZINE 2022-0 Yes [id number] 50mg Take 1 [facility] 50 mg 7-05 tablet by ity of tablet 00:00: mouth at [place] [address] bedtime. Medical Branch terazosin 2 2022-0 Yes [id number] 4mg Take 2 [facility] mg capsule 7-05 capsules ity o f 00:00: by mouth [place] at Medical bedtime. Branch hydrALAZINE 2022-0 Yes [id number] 50mg Take 1 [facility] 50 mg 7-05 tablet by ity of tablet 00:00: mouth at [place] [address] bedtime. Medical Branch terazosin 2 2022-0 Yes [id number] 4mg Take 2 [facility] mg capsule 7-05 capsules ity o f 00:00: by mouth [place] at Medical bedtime. Branch hydrALAZINE 2022-0 Yes [id number] 50mg Take 1 [facility] 50 mg 7-05 tablet by ity of tablet 00:00: mouth at [place] bedtime. Medical Branch terazosin 2 2022-0 Yes [id number] 4mg Take 2 [facility] mg capsule 7-05 capsules ity o f 00:00: by mouth [place] at Medical bedtime. Branch hydrALAZINE 2022-0 Yes [id number] 50mg Take 1 [facility] 50 mg 7-05 tablet by ity of tablet 00:00: mouth at [place] bedtime. Medical Branch terazosin 2 2022-0 Yes [id number] 4mg Take 2 [facility] mg capsule 7-05 capsules ity o f 00:00: by mouth [place] at Medical bedtime. Branch hydrALAZINE 2022-0 Yes [id number] 50mg Take 1 [facility] 50 mg 7-05 tablet by ity of tablet 00:00: mouth at [place] [address] bedtime. Medical Branch terazosin 2 2022-0 Yes [id number] 4mg Take 2 [facility] mg capsule 7-05 capsules ity o f 00:00: by mouth [place] at Medical bedtime. Branch hydrALAZINE 2022-0 Yes [id number] 50mg Take 1 [facility] 50 mg 7-05 tablet by ity of tablet 00:00: mouth at [place] [address] bedtime. Medical Branch terazosin 2 2022-0 Yes [id number] 4mg Take 2 [facility] mg capsule 7-05 capsules ity o f 00:00: by mouth [place] at Medical bedtime. Branch hydrALAZINE 2022-0 Yes [id number] 50mg Take 1 [facility] 50 mg 7-05 tablet by ity of tablet 00:00: mouth at [place] [address] bedtime. Medical Branch terazosin 2 2022-0 Yes [id number] 4mg Take 2 [facility] mg capsule 7-05 capsules ity o f 00:00: by mouth [place] at Medical bedtime. Branch hydrALAZINE 2022-0 Yes [id number] 50mg Take 1 [facility] 50 mg 7-05 tablet by ity of tablet 00:00: mouth at [place] [address] bedtime. Medical Branch terazosin 2 2022-0 Yes [id number] 4mg Take 2 [facility] mg capsule 7-05 capsules ity o f 00:00: by mouth [place] at Medical bedtime. Branch hydrALAZINE 2022-0 Yes [id number] 50mg Take 1 [facility] 50 mg 7-05 tablet by ity of tablet 00:00: mouth at [place] bedtime. Medical Branch terazosin 2 2022-0 Yes [id number] 4mg Take 2 [facility] mg capsule 7-05 capsules ity o f 00:00: by mouth [place] at Medical bedtime. Branch hydrALAZINE 2022-0 Yes [id number] 50mg Take 1 [facility] 50 mg 7-05 tablet by ity of tablet 00:00: mouth at [place] bedtime. Medical Branch terazosin 2 2022-0 Yes [id number] 4mg Take 2 [facility] mg capsule 7-05 capsules ity o f 00:00: by mouth [place] at Medical bedtime. Branch hydrALAZINE 2022-0 Yes [id number] 50mg Take 1 [facility] 50 mg 7-05 tablet by ity of tablet 00:00: mouth at [place] [address] bedtime. Medical Branch terazosin 2 2022-0 Yes [id number] 4mg Take 2 [facility] mg capsule 7-05 capsules ity o f 00:00: by mouth [place] at Medical bedtime. Branch hydrALAZINE 2022-0 Yes [id number] 50mg Take 1 [facility] 50 mg 7-05 tablet by ity of tablet 00:00: mouth at [place] [address] bedtime. Medical Branch terazosin 2 2022-0 Yes [id number] 4mg Take 2 [facility] mg capsule 7-05 capsules ity o f 00:00: by mouth [place] at Medical bedtime. Branch hydrALAZINE 2022-0 Yes [id number] 50mg Take 1 [facility] 50 mg 7-05 tablet by ity of tablet 00:00: mouth at [place] [address] bedtime. Medical Branch terazosin 2 2022-0 Yes [id number] 4mg Take 2 [facility] mg capsule 7-05 capsules ity o f 00:00: by mouth [place] at Medical bedtime. Branch hydrALAZINE 2022-0 Yes [id number] 50mg Take 1 [facility] 50 mg 7-05 tablet by ity of tablet 00:00: mouth at [place] [address] bedtime. Medical Branch terazosin 2 2022-0 Yes [id number] 4mg Take 2 [facility] mg capsule 7-05 capsules ity o f 00:00: by mouth at Medical bedtime. Branch hydrALAZINE 2022-0 Yes [id number] 50mg Take 1 [facility] 50 mg 7-05 tablet by ity of tablet 00:00: mouth at [place] bedtime. Medical Branch terazosin 2 2022-0 Yes [id number] 4mg Take 2 [facility] mg capsule 7-05 capsules ity o f 00:00: by mouth [place] at Medical bedtime. Branch hydrALAZINE 2022-0 Yes [id number] 50mg Take 1 [facility] 50 mg 7-05 tablet by ity of tablet 00:00: mouth at [place] bedtime. Medical Branch terazosin 2 2022-0 Yes [id number] 4mg Take 2 [facility] mg capsule 7-05 capsules ity o f 00:00: by mouth [place] at Medical bedtime. Branch hydrALAZINE 2022-0 Yes [id number] 50mg Take 1 [facility] 50 mg 7-05 tablet by ity of tablet 00:00: mouth at [place] bedtime. Medical Branch terazosin 2 2022-0 Yes [id number] 4mg Take 2 [facility] mg capsule 7-05 capsules ity o f 00:00: by mouth [place] at Medical bedtime. Branch hydrALAZINE 2022-0 Yes [id number] 50mg Take 1 [facility] 50 mg 7-05 tablet by ity of tablet 00:00: mouth at [place] [address] bedtime. Medical Branch terazosin 2 2022-0 Yes [id number] 4mg Take 2 [facility] mg capsule 7-05 capsules ity o f 00:00: by mouth [place] at Medical bedtime. Branch hydrALAZINE 2022-0 Yes [id number] 50mg Take 1 [facility] 50 mg 7-05 tablet by ity of tablet 00:00: mouth at [place] [address] bedtime. Medical Branch terazosin 2 2022-0 Yes [id number] 4mg Take 2 [facility] mg capsule 7-05 capsules ity o f 00:00: by mouth [place] at Medical bedtime. Branch hydrALAZINE 2022-0 Yes [id number] 50mg Take 1 [facility] 50 mg 7-05 tablet by ity of tablet 00:00: mouth at [place] [address] bedtime. Medical Branch terazosin 2 2022-0 Yes [id number] 4mg Take 2 [facility] mg capsule 7-05 capsules ity o f 00:00: by mouth at Medical bedtime. Branch hydrALAZINE 2022-0 Yes [id number] 50mg Take 1 [facility] 50 mg 7-05 tablet by ity of tablet 00:00: mouth at [place] bedtime. Medical Branch terazosin 2 2022-0 Yes [id number] 4mg Take 2 [facility] mg capsule 7-05 capsules ity o f 00:00: by mouth [place] at Medical bedtime. Branch hydrALAZINE 2022-0 Yes [id number] 50mg Take 1 [facility] 50 mg 7-05 tablet by ity of tablet 00:00: mouth at [place] bedtime. Medical Branch terazosin 2 2022-0 Yes [id number] 4mg Take 2 [facility] mg capsule 7-05 capsules ity o f 00:00: by mouth [place] at Medical bedtime. Branch hydrALAZINE 2022-0 Yes [id number] 50mg Take 1 [facility] 50 mg 7-05 tablet by ity of tablet 00:00: mouth at [place] bedtime. Medical Branch terazosin 2 2022-0 Yes [id number] 4mg Take 2 [facility] mg capsule 7-05 capsules ity o f 00:00: by mouth [place] at Medical bedtime. Branch hydrALAZINE 2022-0 Yes [id number] 50mg Take 1 [facility] 50 mg 7-05 tablet by ity of tablet 00:00: mouth at [place] [address] bedtime. Medical Branch terazosin 2 2022-0 Yes [id number] 4mg Take 2 [facility] mg capsule 7-05 capsules ity o f 00:00: by mouth [place] at Medical bedtime. Branch hydrALAZINE 2022-0 Yes [id number] 50mg Take 1 [facility] 50 mg 7-05 tablet by ity of tablet 00:00: mouth at [place] [address] bedtime. Medical Branch terazosin 2 2022-0 Yes [id number] 4mg Take 2 [facility] mg capsule 7-05 capsules ity o f 00:00: by mouth [place] at Medical bedtime. Branch hydrALAZINE 2022-0 Yes [id number] 50mg Take 1 [facility] 50 mg 7-05 tablet by ity of tablet 00:00: mouth at [place] [address] bedtime. Medical Branch terazosin 2 2022-0 Yes [id number] 4mg Take 2 [facility] mg capsule 7-05 capsules ity o f 00:00: by mouth [place] 00 at Medical bedtime. Branch hydrALAZINE 2022-0 Yes [id number] 50mg Take 1 [facility] 50 mg 7-05 tablet by ity of tablet 00:00: mouth at [place] [address] bedtime. Medical Branch terazosin 2 2022-0 Yes [id number] 4mg Take 2 [facility] mg capsule 7-05 capsules ity o f 00:00: by mouth [place] 00 at Medical bedtime. Branch hydrALAZINE 2022-0 Yes [id number] 50mg Take 1 [facility] 50 mg 7-05 tablet by ity of tablet 00:00: mouth at [place] [address] bedtime. Medical Branch terazosin 2 2022-0 Yes [id number] 4mg Take 2 [facility] mg capsule 7-05 capsules ity o f 00:00: by mouth [place] [address] at Medical bedtime. Branch hydrALAZINE 2022-2022- No [id number] 50mg Take 1 [facility] 50 mg 7-05 08-17 tablet by ity of tablet 00:00: 00:00 mouth at [place] 00 :00 bedtime. Medical Branch terazosin 2 2022-2022- No [id number] 4mg Take 2 [facility] mg capsule 7-05 08-17 capsules ity of 00:00: 00:00 by mouth [place] 00 :00 at Medical bedtime. Branch hydrALAZINE 2022-2022- No [id number] 50mg Take 1 [facility] 50 mg 7-05 08-17 tablet by ity of tablet 00:00: 00:00 mouth at [place] 00 :00 bedtime. Medical Branch terazosin 2 2022- No [id number] 4mg Take 2 [facility] mg capsule 7-05 08-17 capsules ity of 00:00: 00:00 by mouth [place] 00 :00 at Medical bedtime. Branch Diphenhydra 2022-0 Yes [id number] Apply to [facility] mine HCl 7-01 area(s) 2 ity of (BENADRYL) 00:00: (two) [place] 2 % Gel 00 times Medical daily. Branch Diphenhydra 2022-0 Yes [id number] Apply to [facility] mine HCl 7-01 area(s) 2 ity of (BENADRYL) 00:00: (two) [place] 2 % Gel 00 times Medical daily. Branch Diphenhydra 2022-0 Yes [id number] Apply to [facility] mine HCl 7-01 area(s) 2 ity of (BENADRYL) 00:00: (two) [place] 2 % Gel 00 times Medical daily. Branch Diphenhydra 2023-0 Yes [id number] Apply to [facility] mine HCl 7-01 area(s) 2 ity of (BENADRYL) 00:00: (two) [place] 2 % Gel 00 times Medical daily. Branch Diphenhydra 2023-0 Yes [id number] Apply to [facility] mine HCl 7-01 area(s) 2 ity of (BENADRYL) 00:00: (two) [place] 2 % Gel 00 times Medical daily. Branch Diphenhydra 2023-0 Yes [id number] Apply to [facility] mine HCl 7-01 area(s) 2 ity of (BENADRYL) 00:00: (two) [place] 2 % Gel 00 times Medical daily. Branch Diphenhydra 2023-0 Yes [id number] Apply to [facility] mine HCl 7-01 area(s) 2 ity of (BENADRYL) 00:00: (two) [place] 2 % Gel 00 times Medical daily. Branch Diphenhydra 2023-0 Yes [id number] Apply to [facility] mine HCl 7-01 area(s) 2 ity of (BENADRYL) 00:00: (two) [place] 2 % Gel 00 times Medical daily. Branch Diphenhydra 2023-0 Yes [id number] Apply to [facility] mine HCl 7-01 area(s) 2 ity of (BENADRYL) 00:00: (two) [place] 2 % Gel 00 times Medical daily. Branch Diphenhydra 2023-0 Yes [id number] Apply to [facility] mine HCl 7-01 area(s) 2 ity of (BENADRYL) 00:00: (two) [place] 2 % Gel 00 times Medical daily. Branch Diphenhydra 2023-0 Yes [id number] Apply to [facility] mine HCl 7-01 area(s) 2 ity of (BENADRYL) 00:00: (two) [place] 2 % Gel 00 times Medical daily. Branch Diphenhydra 2023-0 Yes [id number] Apply to [facility] mine HCl 7-01 area(s) 2 ity of (BENADRYL) 00:00: (two) [place] 2 % Gel 00 times Medical daily. Branch Diphenhydra 2023-0 Yes [id number] Apply to [facility] mine HCl 7-01 area(s) 2 ity of (BENADRYL) 00:00: (two) [place] 2 % Gel 00 times Medical daily. Branch Diphenhydra 2023-0 Yes [id number] Apply to [facility] mine HCl 7-01 area(s) 2 ity of (BENADRYL) 00:00: (two) [place] 2 % Gel 00 times Medical daily. Branch Diphenhydra 2023-0 Yes [id number] Apply to [facility] mine HCl 7-01 area(s) 2 ity of (BENADRYL) 00:00: (two) [place] 2 % Gel 00 times Medical daily. Branch Diphenhydra 2023-0 Yes [id number] Apply to [facility] mine HCl 7-01 area(s) 2 ity of (BENADRYL) 00:00: (two) [place] 2 % Gel 00 times Medical daily. Branch Diphenhydra 2023-0 Yes [id number] Apply to [facility] mine HCl 7-01 area(s) 2 ity of (BENADRYL) 00:00: (two) [place] 2 % Gel 00 times Medical daily. Branch Diphenhydra 2023-0 Yes [id number] Apply to [facility] mine HCl 7-01 area(s) 2 ity of (BENADRYL) 00:00: (two) [place] 2 % Gel 00 times Medical daily. Branch Diphenhydra 2023-0 Yes [id number] Apply to [facility] mine HCl 7-01 area(s) 2 ity of (BENADRYL) 00:00: (two) [place] 2 % Gel 00 times Medical daily. Branch Diphenhydra 2023-0 Yes [id number] Apply to [facility] mine HCl 7-01 area(s) 2 ity of (BENADRYL) 00:00: (two) [place] 2 % Gel 00 times Medical daily. Branch Diphenhydra 2023-0 Yes [id number] Apply to [facility] mine HCl 7-01 area(s) 2 ity of (BENADRYL) 00:00: (two) [place] 2 % Gel 00 times Medical daily. Branch Diphenhydra 2023-0 Yes [id number] Apply to [facility] mine HCl 7-01 area(s) 2 ity of (BENADRYL) 00:00: (two) [place] 2 % Gel 00 times Medical daily. Branch Diphenhydra 2023-0 Yes [id number] Apply to [facility] mine HCl 7-01 area(s) 2 ity of (BENADRYL) 00:00: (two) [place] 2 % Gel 00 times Medical daily. Branch Diphenhydra 2023-0 Yes [id number] Apply to [facility] mine HCl 7-01 area(s) 2 ity of (BENADRYL) 00:00: (two) [place] 2 % Gel 00 times Medical daily. Branch Diphenhydra 2023-0 Yes [id number] Apply to [facility] mine HCl 7-01 area(s) 2 ity of (BENADRYL) 00:00: (two) [place] 2 % Gel 00 times Medical daily. Branch Diphenhydra 2023-0 Yes [id number] Apply to [facility] mine HCl 7-01 area(s) 2 ity of (BENADRYL) 00:00: (two) [place] 2 % Gel 00 times Medical daily. Branch Diphenhydra 2023-0 Yes [id number] Apply to [facility] mine HCl 7-01 area(s) 2 ity of (BENADRYL) 00:00: (two) [place] 2 % Gel 00 times Medical daily. Branch Diphenhydra 2023-0 Yes [id number] Apply to [facility] mine HCl 7-01 area(s) 2 ity of (BENADRYL) 00:00: (two) [place] 2 % Gel 00 times Medical daily. Branch Diphenhydra 2023-0 Yes [id number] Apply to [facility] mine HCl 7-01 area(s) 2 ity of (BENADRYL) 00:00: (two) [place] 2 % Gel 00 times Medical daily. Branch Diphenhydra 2023-0 Yes [id number] Apply to [facility] mine HCl 7-01 area(s) 2 ity of (BENADRYL) 00:00: (two) [place] 2 % Gel 00 times Medical daily. Branch Diphenhydra 2023-0 Yes [id number] Apply to [facility] mine HCl 7-01 area(s) 2 ity of (BENADRYL) 00:00: (two) [place] 2 % Gel 00 times Medical daily. Branch Diphenhydra 2023-0 Yes [id number] Apply to [facility] mine HCl 7-01 area(s) 2 ity of (BENADRYL) 00:00: (two) [place] 2 % Gel 00 times Medical daily. Branch Diphenhydra 2023-0 Yes [id number] Apply to [facility] mine HCl 7-01 area(s) 2 ity of (BENADRYL) 00:00: (two) [place] 2 % Gel 00 times Medical daily. Branch Diphenhydra 2023-0 Yes [id number] Apply to [facility] mine HCl 7-01 area(s) 2 ity of (BENADRYL) 00:00: (two) [place] 2 % Gel 00 times Medical daily. Branch Diphenhydra 2023-0 Yes [id number] Apply to [facility] mine HCl 7-01 area(s) 2 ity of (BENADRYL) 00:00: (two) [place] 2 % Gel 00 times Medical daily. Branch Diphenhydra 2023-0 Yes [id number] Apply to [facility] mine HCl 7-01 area(s) 2 ity of (BENADRYL) 00:00: (two) [place] 2 % Gel 00 times Medical daily. Branch Diphenhydra 2023-0 Yes [id number] Apply to [facility] mine HCl 7-01 area(s) 2 ity of (BENADRYL) 00:00: (two) [place] 2 % Gel 00 times Medical daily. Branch Diphenhydra 3-0 Yes [id number] Apply to [facility] mine HCl 7-01 area(s) 2 ity of (BENADRYL) 00:00: (two) [place] 2 % Gel 00 times Medical daily. Branch Diphenhydra 3-0 Yes [id number] Apply to [facility] mine HCl 7-01 area(s) 2 ity of (BENADRYL) 00:00: (two) [place] 2 % Gel 00 times Medical daily. Branch hydrALAZINE 3-0 Yes [id number] 50mg Take 1 [facility] 50 mg 6-20 tablet by ity of tablet 00:00: mouth at [place] 00 bedtime. Medical Branch terazosin 2 3-0 Yes [id number] 4mg Take 2 [facility] mg capsule 6-20 capsules ity o f 00:00: by mouth [place] 00 at Medical bedtime. Branch hydrALAZINE 2022-0 Yes [id number] 50mg Take 1 [facility] 50 mg 6-20 tablet by ity of tablet 00:00: mouth at [place] bedtime. Medical Branch terazosin 2 2022-0 Yes [id number] 4mg Take 2 [facility] mg capsule 6-20 capsules ity o f 00:00: by mouth [place] at Medical bedtime. Branch hydrALAZINE 2022-0 Yes [id number] 50mg Take 1 [facility] 50 mg 6-20 tablet by ity of tablet 00:00: mouth at [place] bedtime. Medical Branch terazosin 2 2022-0 Yes [id number] 4mg Take 2 [facility] mg capsule 6-20 capsules ity o f 00:00: by mouth [place] at Medical bedtime. Branch hydrALAZINE 2022-0 Yes [id number] 50mg Take 1 [facility] 50 mg 6-20 tablet by ity of tablet 00:00: mouth at [place] bedtime. Medical Branch terazosin 2 2022-0 Yes [id number] 4mg Take 2 [facility] mg capsule 6-20 capsules ity o f 00:00: by mouth [place] at Medical bedtime. Branch hydrALAZINE 2022-0 Yes [id number] 50mg Take 1 [facility] 50 mg 6-20 tablet by ity of tablet 00:00: mouth at [place] bedtime. Medical Branch terazosin 2 2022-0 Yes [id number] 4mg Take 2 [facility] mg capsule 6-20 capsules ity o f 00:00: by mouth [place] at Medical bedtime. Branch hydrALAZINE 2022-0 Yes [id number] 50mg Take 1 [facility] 50 mg 6-20 tablet by ity of tablet 00:00: mouth at [place] [address] bedtime. Medical Branch terazosin 2 2022-0 Yes [id number] 4mg Take 2 [facility] mg capsule 6-20 capsules ity o f 00:00: by mouth [place] at Medical bedtime. Branch hydrALAZINE 2022-0 Yes [id number] 50mg Take 1 [facility] 50 mg 6-20 tablet by ity of tablet 00:00: mouth at [place] [address] bedtime. Medical Branch terazosin 2 2022-0 Yes [id number] 4mg Take 2 [facility] mg capsule 6-20 capsules ity o f 00:00: by mouth [place] at Medical bedtime. Branch hydrALAZINE 2022-0 2022- No [id number] 50mg Take 1 [facility] 50 mg 10-26- tablet by ity of tablet 00:00: 00:00 mouth at [place] 00 :00 bedtime. Medical Branch terazosin 2 2022-2022- No [id number] 4mg Take 2 [facility] mg capsule 10-26-05 capsules ity of 00:00: 00:00 by mouth [place] 00 :00 at Medical bedtime. Branch doxycycline 2022-0 Yes [id number] 100mg Take 1 [facility] hyclate 100 5-29 tablet by ity of mg tablet 00:00: mouth [place] 00 the Medical morning Branch and 1 tablet in the evening. doxycycline 2022-0 Yes [id number] 100mg Take 1 [facility] hyclate 100 5-29 tablet by [facility] of mg tablet 00:00: mouth [place] 00 the Medical morning Branch and 1 tablet in the evening. doxycycline 2022-0 Yes [id number] 100mg Take 1 [facility] hyclate 100 5-29 tablet by [facility] of mg tablet 00:00: mouth [place] 00 the Medical morning Branch and 1 tablet in the evening. doxycycline 2022-0 Yes [id number] 100mg Take 1 [facility] hyclate 100 5-29 tablet by it[facility] of mg tablet 00:00: mouth [place] 00 the Medical morning Branch and 1 tablet in the evening. doxycycline 2022-0 Yes [id number] 100mg Take 1 [facility] hyclate 100 5-29 tablet by [facility] of mg tablet 00:00: mouth [place] 00 the Medical morning Branch and 1 tablet in the evening. doxycycline 2022-0 Yes [id number] 100mg Take 1 [facility] hyclate 100 5-29 tablet by it[facility] of mg tablet 00:00: mouth [place] 00 the Medical morning Branch and 1 tablet in the evening. doxycycline 2022-0 Yes [id number] 100mg Take 1 [facility] hyclate 100 5-29 tablet by ity of mg tablet 00:00: mouth [place] 00 the Medical morning Branch and 1 tablet in the evening. doxycycline 2022-0 Yes [id number] 100mg Take 1 [facility] hyclate 100 5-29 tablet by it[facility] of mg tablet 00:00: mouth [place] 00 the Medical morning Branch and 1 tablet in the evening. doxycycline 2023-0 Yes [id number] 100mg Take 1 [facility] hyclate 100 5-29 tablet by it[facility] of mg tablet 00:00: mouth [place] 00 the Medical morning Branch and 1 tablet in the evening. doxycycline 2023-0 Yes [id number] 100mg Take 1 [facility] hyclate 100 5-29 tablet by [facility] of mg tablet 00:00: mouth [place] 00 the Medical morning Branch and 1 tablet in the evening. doxycycline 2023-0 Yes [id number] 100mg Take 1 [facility] hyclate 100 5-29 tablet by ity of mg tablet 00:00: mouth [place] 00 the Medical morning Branch and 1 tablet in the evening. doxycycline 2023-0 Yes [id number] 100mg Take 1 [facility] hyclate 100 5-29 tablet by ity of mg tablet 00:00: mouth [place] 00 the Medical morning Branch and 1 tablet in the evening. doxycycline 2023-0 Yes [id number] 100mg Take 1 [facility] hyclate 100 5-29 tablet by ity of mg tablet 00:00: mouth [place] 00 the Medical morning Branch and 1 tablet in the evening. doxycycline 2023-0 Yes [id number] 100mg Take 1 [facility] hyclate 100 5-29 tablet by ity of mg tablet 00:00: mouth [place] 00 the Medical morning Branch and 1 tablet in the evening. doxycycline 2023-0 Yes [id number] 100mg Take 1 [facility] hyclate 100 5-29 tablet by ity of mg tablet 00:00: mouth [place] 00 the Medical morning Branch and 1 tablet in the evening. doxycycline 2023-0 Yes [id number] 100mg Take 1 [facility] hyclate 100 5-29 tablet by ity of mg tablet 00:00: mouth in [place] 00 the Medical morning Branch and 1 tablet in the evening. doxycycline 2023-0 Yes [id number] 100mg Take 1 [facility] hyclate 100 5-29 tablet by ity of mg tablet 00:00: mouth in [place] 00 the Medical morning Branch and 1 tablet in the evening. doxycycline 2023-0 Yes [id number] 100mg Take 1 [facility] hyclate 100 5-29 tablet by ity of mg tablet 00:00: mouth in [place] 00 the Medical morning Branch and 1 tablet in the evening. doxycycline 2023-0 Yes [id number] 100mg Take 1 [facility] hyclate 100 5-29 tablet by ity of mg tablet 00:00: mouth in [place] 00 the Medical morning Branch and 1 tablet in the evening. doxycycline 2023-0 Yes [id number] 100mg Take 1 [facility] hyclate 100 5-29 tablet by ity of mg tablet 00:00: mouth in [place] 00 the Medical morning Branch and 1 tablet in the evening. doxycycline 2023-0 Yes [id number] 100mg Take 1 [facility] hyclate 100 5-29 tablet by ity of mg tablet 00:00: mouth in [place] 00 the Medical morning Branch and 1 tablet in the evening. doxycycline 2023-0 Yes [id number] 100mg Take 1 [facility] hyclate 100 5-29 tablet by ity of mg tablet 00:00: mouth in [place] 00 the Medical morning Branch and 1 tablet in the evening. doxycycline 2023-0 Yes [id number] 100mg Take 1 [facility] hyclate 100 5-29 tablet by ity of mg tablet 00:00: mouth in [place] 00 the Medical morning Branch and 1 tablet in the evening. doxycycline 2023-0 Yes [id number] 100mg Take 1 [facility] hyclate 100 5-29 tablet by ity of mg tablet 00:00: mouth in [place] 00 the Medical morning Branch and 1 tablet in the evening. doxycycline 2023-0 Yes [id number] 100mg Take 1 [facility] hyclate 100 5-29 tablet by ity of mg tablet 00:00: mouth in [place] 00 the Medical morning Branch and 1 tablet in the evening. doxycycline 2023-0 Yes [id number] 100mg Take 1 [facility] hyclate 100 5-29 tablet by ity of mg tablet 00:00: mouth in [place] 00 the Medical morning Branch and 1 tablet in the evening. doxycycline 2023-0 Yes [id number] 100mg Take 1 [facility] hyclate 100 5-29 tablet by ity of mg tablet 00:00: mouth in [place] 00 the Medical morning Branch and 1 tablet in the evening. doxycycline 2023-0 Yes [id number] 100mg Take 1 [facility] hyclate 100 5-29 tablet by ity of mg tablet 00:00: mouth in [place] 00 the Medical morning Branch and 1 tablet in the evening. doxycycline 2023-0 Yes [id number] 100mg Take 1 [facility] hyclate 100 5-29 tablet by ity of mg tablet 00:00: mouth in [place] 00 the Medical morning Branch and 1 tablet in the evening. doxycycline 2023-0 Yes [id number] 100mg Take 1 [facility] hyclate 100 5-29 tablet by ity of mg tablet 00:00: mouth in [place] 00 the Medical morning Branch and 1 tablet in the evening. doxycycline 2023-0 Yes [id number] 100mg Take 1 [facility] hyclate 100 5-29 tablet by ity of mg tablet 00:00: mouth in [place] 00 the Medical morning Branch and 1 tablet in the evening. doxycycline 2023-0 Yes [id number] 100mg Take 1 [facility] hyclate 100 5-29 tablet by ity of mg tablet 00:00: mouth in [place] 00 the Medical morning Branch and 1 tablet in the evening. doxycycline 2023-0 Yes [id number] 100mg Take 1 [facility] hyclate 100 5-29 tablet by ity of mg tablet 00:00: mouth in [place] 00 the Medical morning Branch and 1 tablet in the evening. doxycycline 2023-0 Yes [id number] 100mg Take 1 [facility] hyclate 100 5-29 tablet by ity of mg tablet 00:00: mouth in [place] 00 the Medical morning Branch and 1 tablet in the evening. doxycycline 2023-0 Yes [id number] 100mg Take 1 [facility] hyclate 100 5-29 tablet by ity of mg tablet 00:00: mouth in [place] 00 the Medical morning Branch and 1 tablet in the evening. doxycycline 2023-0 Yes [id number] 100mg Take 1 [facility] hyclate 100 5-29 tablet by ity of mg tablet 00:00: mouth in [place] 00 the Medical morning Branch and 1 tablet in the evening. doxycycline 2023-0 Yes [id number] 100mg Take 1 [facility] hyclate 100 5-29 tablet by ity of mg tablet 00:00: mouth in [place] 00 the Medical morning Branch and 1 tablet in the evening. doxycycline 2023-0 Yes [id number] 100mg Take 1 [facility] hyclate 100 5-29 tablet by ity of mg tablet 00:00: mouth in [place] 00 the Medical morning Branch and 1 tablet in the evening. doxycycline 2023-0 Yes [id number] 100mg Take 1 [facility] hyclate 100 5-29 tablet by ity of mg tablet 00:00: mouth in [place] 00 the Medical morning Branch and 1 tablet in the evening. doxycycline 2023-0 Yes [id number] 100mg Take 1 [facility] hyclate 100 5-29 tablet by ity of mg tablet 00:00: mouth in [place] 00 the Medical morning Branch and 1 tablet in the evening. doxycycline 2023-0 Yes [id number] 100mg Take 1 [facility] hyclate 100 5-29 tablet by ity of mg tablet 00:00: mouth in [place] 00 the Medical morning Branch and 1 tablet in the evening. doxycycline 2023-0 Yes [id number] 100mg Take 1 [facility] hyclate 100 5-29 tablet by ity of mg tablet 00:00: mouth in [place] 00 the Medical morning Branch and 1 tablet in the evening. doxycycline 2023-0 Yes [id number] 100mg Take 1 [facility] hyclate 100 5-29 tablet by ity of mg tablet 00:00: mouth in [place] 00 the Medical morning Branch and 1 tablet in the evening. doxycycline 2023-0 Yes [id number] 100mg Take 1 [facility] hyclate 100 5-29 tablet by ity of mg tablet 00:00: mouth in [place] 00 the Medical morning Branch and 1 tablet in the evening. doxycycline 2023-0 Yes [id number] 100mg Take 1 [facility] hyclate 100 5-29 tablet by ity of mg tablet 00:00: mouth in [place] 00 the Medical morning Branch and 1 tablet in the evening. doxycycline 2023-0 Yes [id number] 100mg Take 1 [facility] hyclate 100 5-29 tablet by ity of mg tablet 00:00: mouth in [place] 00 the Medical morning Branch and 1 tablet in the evening. furosemide 2023-0 Yes [id number] 20mg Take 1 [facility] 20 mg 5-27 tablet by ity of tablet 00:00: mouth [place] 00 every Medical Tues, Branch Thurs, Sat and Sun in the evening. furosemide 2023-0 Yes [id number] 20mg Take 1 [facility] 20 mg 5-27 tablet by ity of tablet 00:00: mouth [place] 00 every Medical Tues, Branch Thurs, Sat and Sun in the evening. furosemide 2023-0 Yes [id number] 20mg Take 1 [facility] 20 mg 5-27 tablet by ity of tablet 00:00: mouth [place] 00 every Medical Tues, Branch Thurs, Sat and Sun in the evening. furosemide 2023-0 Yes [id number] 20mg Take 1 [facility] 20 mg 5-27 tablet by ity of tablet 00:00: mouth [place] 00 every Medical Tues, Branch Thurs, Sat and Sun in the evening. furosemide 2023-0 Yes [id number] 20mg Take 1 [facility] 20 mg 5-27 tablet by ity of tablet 00:00: mouth [place] 00 every Medical Tues, Branch Thurs, Sat and Sun in the evening. furosemide 2023-0 Yes [id number] 20mg Take 1 [facility] 20 mg 5-27 tablet by ity of tablet 00:00: mouth [place] 00 every Medical Tues, Branch Thurs, Sat and Sun in the evening. furosemide 2022-0 Yes [id number] 20mg Take 1 [facility] 20 mg 5-27 tablet by ity of tablet 00:00: mouth [place] 00 every Medical Tues, Branch Thurs, Sat and Sun in the evening. furosemide 3-0 Yes [id number] 20mg Take 1 [facility] 20 mg 5-27 tablet by ity of tablet 00:00: mouth [place] 00 every Medical Tues, Branch Thurs, Sat and Sun in the evening. furosemide 3-0 Yes [id number] 20mg Take 1 [facility] 20 mg 5-27 tablet by ity of tablet 00:00: mouth [place] 00 every Medical Tues, Branch Thurs, Sat and Sun in the evening. furosemide 2023-0 Yes [id number] 20mg Take 1 [facility] 20 mg 5-27 tablet by ity of tablet 00:00: mouth [place] 00 every Medical Tues, Branch Thurs, Sat and Sun in the evening. furosemide 2023-0 Yes [id number] 20mg Take 1 [facility] 20 mg 5-27 tablet by ity of tablet 00:00: mouth [place] 00 every Medical Tues, Branch Thurs, Sat and Sun in the evening. furosemide 2023-0 Yes [id number] 20mg Take 1 [facility] 20 mg 5-27 tablet by ity of tablet 00:00: mouth [place] 00 every Medical Tues, Branch Thurs, Sat and Sun in the evening. furosemide 2023-0 Yes [id number] 20mg Take 1 [facility] 20 mg 5-27 tablet by ity of tablet 00:00: mouth [place] 00 every Medical Tues, Branch Thurs, Sat and Sun in the evening. furosemide 2023-0 Yes [id number] 20mg Take 1 [facility] 20 mg 5-27 tablet by ity of tablet 00:00: mouth [place] 00 every Medical Tues, Branch Thurs, Sat and Sun in the evening. furosemide 2023-0 Yes [id number] 20mg Take 1 [facility] 20 mg 5-27 tablet by ity of tablet 00:00: mouth [place] 00 every Medical Tues, Branch Thurs, Sat and Sun in the evening. furosemide 3-0 Yes [id number] 20mg Take 1 [facility] 20 mg 5-27 tablet by ity of tablet 00:00: mouth [place] 00 every Medical Tues, Branch Thurs, Sat and Sun in the evening. furosemide 2022-0 Yes [id number] 20mg Take 1 [facility] 20 mg 5-27 tablet by ity of tablet 00:00: mouth [place] 00 every Medical Tues, Branch Thurs, Sat and Sun in the evening. furosemide 2022-0 Yes [id number] 20mg Take 1 [facility] 20 mg 5-27 tablet by ity of tablet 00:00: mouth [place] 00 every Medical Tues, Branch Thurs, Sat and Sun in the evening. furosemide 3-0 Yes [id number] 20mg Take 1 [facility] 20 mg 5-27 tablet by ity of tablet 00:00: mouth [place] 00 every Medical Tues, Branch Thurs, Sat and Sun in the evening. furosemide 2023-0 Yes [id number] 20mg Take 1 [facility] 20 mg 5-27 tablet by ity of tablet 00:00: mouth [place] 00 every Medical Tues, Branch Thurs, Sat and Sun in the evening. furosemide 2023-0 Yes [id number] 20mg Take 1 [facility] 20 mg 5-27 tablet by ity of tablet 00:00: mouth [place] 00 every Medical Tues, Branch Thurs, Sat and Sun in the evening. furosemide 2023-0 Yes [id number] 20mg Take 1 [facility] 20 mg 5-27 tablet by ity of tablet 00:00: mouth [place] 00 every Medical Tues, Branch Thurs, Sat and Sun in the evening. furosemide 2023-0 Yes [id number] 20mg Take 1 [facility] 20 mg 5-27 tablet by ity of tablet 00:00: mouth [place] 00 every Medical Tues, Branch Thurs, Sat and Sun in the evening. furosemide 2023-0 Yes [id number] 20mg Take 1 [facility] 20 mg 5-27 tablet by ity of tablet 00:00: mouth [place] 00 every Medical Tues, Branch Thurs, Sat and Sun in the evening. furosemide 2023-0 Yes [id number] 20mg Take 1 [facility] 20 mg 5-27 tablet by ity of tablet 00:00: mouth [place] 00 every Medical Tues, Branch Thurs, Sat and Sun in the evening. furosemide 2023-0 Yes [id number] 20mg Take 1 [facility] 20 mg 5-27 tablet by ity of tablet 00:00: mouth [place] 00 every Medical Tues, Branch Thurs, Sat and Sun in the evening. furosemide 2023-0 Yes [id number] 20mg Take 1 [facility] 20 mg 5-27 tablet by ity of tablet 00:00: mouth [place] 00 every Medical Tues, Branch Thurs, Sat and Sun in the evening. furosemide 3-0 Yes [id number] 20mg Take 1 [facility] 20 mg 5-27 tablet by ity of tablet 00:00: mouth [place] 00 every Medical Tues, Branch Thurs, Sat and Sun in the evening. furosemide 2023-0 Yes [id number] 20mg Take 1 [facility] 20 mg 5-27 tablet by ity of tablet 00:00: mouth [place] 00 every Medical Tues, Branch Thurs, Sat and Sun in the evening. furosemide 2023-0 Yes [id number] 20mg Take 1 [facility] 20 mg 5-27 tablet by ity of tablet 00:00: mouth [place] 00 every Medical Tues, Branch Thurs, Sat and Sun in the evening. furosemide 2023-0 Yes [id number] 20mg Take 1 [facility] 20 mg 5-27 tablet by ity of tablet 00:00: mouth [place] 00 every Medical Tues, Branch Thurs, Sat and Sun in the evening. furosemide 2023-0 Yes [id number] 20mg Take 1 [facility] 20 mg 5-27 tablet by ity of tablet 00:00: mouth [place] 00 every Medical Tues, Branch Thurs, Sat and Sun in the evening. furosemide 2023-0 Yes [id number] 20mg Take 1 [facility] 20 mg 5-27 tablet by ity of tablet 00:00: mouth [place] 00 every Medical Tues, Branch Thurs, Sat and Sun in the evening. furosemide 3-0 Yes [id number] 20mg Take 1 [facility] 20 mg 5-27 tablet by ity of tablet 00:00: mouth [place] 00 every Medical Tues, Branch Thurs, Sat and Sun in the evening. furosemide 2022-0 Yes [id number] 20mg Take 1 [facility] 20 mg 5-27 tablet by ity of tablet 00:00: mouth [place] 00 every Medical Tues, Branch Thurs, Sat and Sun in the evening. furosemide 2022-0 Yes [id number] 20mg Take 1 [facility] 20 mg 5-27 tablet by ity of tablet 00:00: mouth [place] 00 every Medical Tues, Branch Thurs, Sat and Sun in the evening. furosemide 2022-0 Yes [id number] 20mg Take 1 [facility] 20 mg 5-27 tablet by ity of tablet 00:00: mouth [place] 00 every Medical Tues, Branch Thurs, Sat and Sun in the evening. furosemide 2022-0 Yes [id number] 20mg Take 1 [facility] 20 mg 5-27 tablet by ity of tablet 00:00: mouth [place] 00 every Medical Tues, Branch Thurs, Sat and Sun in the evening. furosemide 2022-0 Yes [id number] 20mg Take 1 [facility] 20 mg 5-27 tablet by ity of tablet 00:00: mouth [place] 00 every Medical Tues, Branch Thurs, Sat and Sun in the evening. furosemide 2022-0 Yes [id number] 20mg Take 1 [facility] 20 mg 5-27 tablet by ity of tablet 00:00: mouth [place] 00 every Medical Tues, Branch Thurs, Sat and Sun in the evening. furosemide 2022-0 Yes [id number] 20mg Take 1 [facility] 20 mg 5-27 tablet by ity of tablet 00:00: mouth [place] 00 every Medical Tues, Branch Thurs, Sat and Sun in the evening. furosemide 2022-0 Yes [id number] 20mg Take 1 [facility] 20 mg 5-27 tablet by ity of tablet 00:00: mouth [place] 00 every Medical Tues, Branch Thurs, Sat and Sun in the evening. furosemide 2022-0 Yes [id number] 20mg Take 1 [facility] 20 mg 5-27 tablet by ity of tablet 00:00: mouth [place] 00 every Medical Tues, Branch Thurs, Sat and Sun in the evening. furosemide 0 Yes [id number] 20mg Take 1 [facility] 20 mg 5-27 tablet by ity of tablet 00:00: mouth [place] 00 every Medical Tues, Branch Thurs, Sat and Sun in the evening. furosemide 2022-0 Yes [id number] 20mg Take 1 [facility] 20 mg 5-27 tablet by ity of tablet 00:00: mouth [place] 00 every Medical Tues, Branch Thurs, Sat and Sun in the evening. furosemide 2022-0 Yes [id number] 20mg Take 1 [facility] 20 mg 5-27 tablet by ity of tablet 00:00: mouth [place] 00 every Medical Tues, Branch Thurs, Sat and Sun in the evening. furosemide 2022- No [id number] 20mg Take 1 [facility] 20 mg 5-27 08-17 tablet by ity of tablet 00:00: 00:00 mouth [place] 00 :00 every Medical Tues, Branch Thurs, Sat and Sun in the evening. furosemide 2022- No [id number] 20mg Take 1 [facility] 20 mg 5-27 08-17 tablet by ity of tablet 00:00: 00:00 mouth [place] 00 :00 every Medical Tues, Branch Thurs, Sat and Sun in the evening. sevelamer 2022- No 800mg Take 1 [facility] ers 800 mg 5-26 05-26 tablet by ity of tablet 14:53: 00:00 mouth in [place] 56 :00 the Medical morning Branch and 1 tablet at noon and 1 tablet in the evening. Take with meals. fluticasone 2022- No 1{puff} Inhale 1 [facility] -umeclidin- 5-26 05-26 Puff in ity of vilanter 14:53: 00:00 the [place] (TRELEGY 56 :00 morning. Medical ELLIPTA) Branch 100-62.5-25 mcg DsDv foLIC acid 2022- No 1mg Take 1 [facility] ers 1 mg tablet 5-26 05-26 tablet by it y of 14:53: 00:00 mouth in [place] 56 :00 the Medical morning. Branch sevelamer 2022-0 2022- No 800mg Take 1 [facility] ers 800 mg 5-26 05-26 tablet by ity of tablet 14:53: 00:00 mouth in [place] 56 :00 the Medical morning Branch and 1 tablet at noon and 1 tablet in the evening. Take with meals. fluticasone 2022- No 1{puff} Inhale 1 [facility] -umeclidin- 5-01 10- Puff in ity of vilanter 14:53: 00:00 the [place] (TRELEGY 56 :00 morning. Medical ELLIPTA) Branch 100-62.5-25 mcg DsDv foLIC acid 2022- No 1mg Take 1 [facility] ers 1 mg tablet 10-01- tablet by it y of 14:53: 00:00 mouth in [place] 56 :00 the Medical morning. Branch tiotropium 2022-0 Yes Inhale. [facility] ers bromide 5-26 ity of 1.25 14:33: [place] mcg/actuati 30 Medical on Mist Branch tiotropium 2022-0 Yes Inhale. Univ ers bromide 5-26 ity of 1.25 14:33: [place] mcg/actuati 30 Medical on Mist Branch tiotropium 2022-0 Yes Inhale. Univ ers bromide 5-26 ity of 1.25 14:33: [place] mcg/actuati 30 Medical on Mist Branch tiotropium 2022-0 Yes Inhale. Univ ers bromide 5-26 ity of 1.25 14:33: [place] mcg/actuati 30 Medical on Mist Branch tiotropium 2022-0 Yes Inhale. Univ ers bromide 5-26 ity of 1.25 14:33: [place] mcg/actuati 30 Medical on Mist Branch tiotropium 2022-0 Yes Inhale. Univ ers bromide 5-26 ity of 1.25 14:33: [place] mcg/actuati 30 Medical on Mist Branch tiotropium 2022-0 Yes Inhale. Univ ers bromide 5-26 ity of 1.25 14:33: [place] mcg/actuati 30 Medical on Mist Branch tiotropium 2022-0 Yes Inhale. Univ ers bromide 5-26 ity of 1.25 14:33: [place] mcg/actuati 30 Medical on Mist Branch tiotropium 2022-0 Yes Inhale. Univ ers bromide 5-26 ity of 1.25 14:33: [place] mcg/actuati 30 Medical on Mist Branch tiotropium 2022-0 Yes Inhale. Univ ers bromide 5-26 ity of 1.25 14:33: [place] mcg/actuati 30 Medical on Mist Branch tiotropium 2023-0 Yes Inhale. Univ ers bromide 5-26 ity of 1.25 14:33: [place] mcg/actuati 30 Medical on Mist Branch tiotropium 2023-0 Yes Inhale. Univ ers bromide 5-26 ity of 1.25 14:33: [place] mcg/actuati 30 Medical on Mist Branch tiotropium 2023-0 Yes Inhale. Univ ers bromide 5-26 ity of 1.25 14:33: [place] mcg/actuati 30 Medical on Mist Branch tiotropium 2023-0 Yes Inhale. Univ ers bromide 5-26 ity of 1.25 14:33: [place] mcg/actuati 30 Medical on Mist Branch tiotropium 2023-0 Yes Inhale. Univ ers bromide 5-26 ity of 1.25 14:33: [place] mcg/actuati 30 Medical on Mist Branch tiotropium 2023-0 Yes Inhale. [facility] ers bromide 5-26 ity of 1.25 14:33: [place] mcg/actuati 30 Medical on Mist Branch tiotropium 2023-0 Yes Inhale. Univ ers bromide 5-26 ity of 1.25 14:33: [place] mcg/actuati 30 Medical on Mist Branch tiotropium 2023-0 Yes Inhale. Univ ers bromide 5-26 ity of 1.25 14:33: [place] mcg/actuati 30 Medical on Mist Branch tiotropium 2023-0 Yes Inhale. Univ ers bromide 5-26 ity of 1.25 14:33: [place] mcg/actuati 30 [facility] tiotropium 2023-0 Yes Inhale. [facility] bromide 5-26 ity of 1.25 14:33: [place] mcg/actuati 30 [facility] tiotropium 2023-0 Yes Inhale. [facility] bromide 5-26 ity of 1.25 14:33: [place] mcg/actuati 30 [facility] tiotropium 2023-0 Yes Inhale. [facility] bromide 5-26 ity of 1.25 14:33: [place] mcg/actuati 30 [facility] tiotropium 2023-0 Yes Inhale. [facility] bromide 5-26 ity of 1.25 14:33: [place] mcg/actuati 30 [facility] tiotropium 2023-0 Yes Inhale. [facility] bromide 5-26 ity of 1.25 14:33: [place] mcg/actuati 30 [facility] tiotropium 2023-0 Yes Inhale. [facility] bromide 5-26 ity of 1.25 14:33: [place] mcg/actuati 30 [facility] tiotropium 2023-0 Yes Inhale. [facility] bromide 5-26 ity of 1.25 14:33: [place] mcg/actuati 30 [facility] tiotropium 2023-0 Yes Inhale. [facility] bromide 5-26 ity of 1.25 14:33: [place] mcg/actuati 30 [facility] tiotropium 2023-0 Yes Inhale. [facility] bromide 5-26 ity of 1.25 14:33: [place] mcg/actuati 30 [facility] tiotropium 2023-0 Yes Inhale. [facility] bromide 5-26 ity of 1.25 14:33: [place] mcg/actuati 30 [facility] tiotropium 2023-0 Yes Inhale. [facility] bromide 5-26 ity of 1.25 14:33: [place] mcg/actuati 30 [facility] tiotropium 2023-0 Yes Inhale. [facility] bromide 5-26 ity of 1.25 14:33: [place] mcg/actuati 30 [facility] tiotropium 2023-0 Yes Inhale. [facility] bromide 5-26 ity of 1.25 14:33: [place] mcg/actuati 30 [facility] tiotropium 2023-0 Yes Inhale. [facility] bromide 5-26 ity of 1.25 14:33: [place] mcg/actuati 30 [facility] tiotropium 2023-0 Yes Inhale. [facility] bromide 5-26 ity of 1.25 14:33: [place] mcg/actuati 30 [facility] tiotropium 2023-0 Yes Inhale. [facility] bromide 5-26 ity of 1.25 14:33: [place] mcg/actuati 30 [facility] tiotropium 2023-0 Yes Inhale. [facility] bromide 5-26 ity of 1.25 14:33: [place] mcg/actuati 30 [facility] tiotropium 2023-0 Yes Inhale. [facility] bromide 5-26 ity of 1.25 14:33: [place] mcg/actuati 30 [facility] tiotropium 2022-0 Yes Inhale. [facility] bromide 5-26 ity of 1.25 14:33: [place] mcg/actuati 30 [facility] tiotropium 2022-0 Yes Inhale. [facility] bromide 5-26 ity of 1.25 14:33: [place] mcg/actuati 30 [facility] tiotropium 2022-0 Yes Inhale. [facility] bromide 5-26 ity of 1.25 14:33: [place] mcg/actuati 30 [facility] tiotropium 2022-0 Yes Inhale. [facility] bromide 5-26 ity of 1.25 14:33: [place] mcg/actuati 30 [facility] tiotropium 2022-0 Yes Inhale. [facility] bromide 5-26 ity of 1.25 14:33: [place] mcg/actuati 30 [facility] tiotropium 2022-0 Yes Inhale. [facility] bromide 5-26 ity of 1.25 14:33: [place] mcg/actuati 30 [facility] tiotropium 2022-0 Yes Inhale. [facility] bromide 5-26 ity of 1.25 14:33: [place] mcg/actuati 30 [facility] tiotropium 2022-0 Yes Inhale. [facility] bromide 5-26 ity of 1.25 14:33: [place] mcg/actuati 30 [facility] sevelamer Yes [id number] 800mg Take 1 [facility] 800 mg 5-26 tablet by ity of tablet 00:00: mouth in [place] the Medical morning Branch and 1 tablet at noon and 1 tablet in the evening. Take with meals. hydrALAZINE Yes [id number] 50mg Take 1 [facility] 50 mg 5-26 tablet by ity of tablet 00:00: mouth at [place] [address] bedtime. Medical Branch foLIC acid Yes [id number] 1mg Take 1 [facility] 1 mg tablet 5-26 tablet by ity of 00:00: mouth in [place] 00 the Medical morning. Branch calcitrioL Yes [id number] .25ug Take 1 [facility] 0.25 mcg 5-26 capsule by ity o f capsule 00:00: mouth in [place] 00 the Medical morning. Branch fluticasone 2023-0 Yes [id number] 1{puff} Inhale 1 [facility] -umeclidin- 5-26 Puff in ity o f vilanter 00:00: the [place] (TRELEGY morning. Medical ELLIPTA) Branch 100-62.5-25 mcg DsDv NIFEdipine 2022-0 Yes [id number] 30mg Take 1 U nivers ER 30 mg 5-26 tablet by ity of tablet 00:00: mouth in [place] the Medical morning. Branch lovastatin 2022-0 Yes [id number] 20mg Take 1 [facility] 20 mg 24 hr 5-26 tablet by ity of tablet 00:00: mouth at [place] [address] bedtime. Medical Branch terazosin 2 2022-0 Yes [id number] 4mg Take 2 [facility] mg capsule 5-26 capsules ity o f 00:00: by mouth [place] 00 at Medical bedtime. Branch finasteride 2022-0 Yes [id number] 5mg Take 1 [facility] 5 mg tablet 5-26 tablet by ity of 00:00: mouth in [place] the Medical morning. Branch sevelamer 2022-0 Yes [id number] 800mg Take 1 [facility] 800 mg 5-26 tablet by ity of tablet 00:00: mouth in [place] the Medical morning Branch and 1 tablet at noon and 1 tablet in the evening. Take with meals. hydrALAZINE 2022-0 Yes [id number] 50mg Take 1 [facility] 50 mg 5-26 tablet by ity of tablet 00:00: mouth at [place] [address] bedtime. Medical Branch foLIC acid 2022-0 Yes [id number] 1mg Take 1 [facility] 1 mg tablet 5-26 tablet by ity of 00:00: mouth in [place] the Medical morning. Branch calcitrioL 2022-0 Yes [id number] .25ug Take 1 [facility] 0.25 mcg 5-26 capsule by ity o f capsule 00:00: mouth in [place] 00 the Medical morning. Branch fluticasone 2022-0 Yes [id number] 1{puff} Inhale 1 [facility] -umeclidin- 5-26 Puff in ity o f vilanter 00:00: the [place] (TRELEGY 00 morning. Medical ELLIPTA) Branch 100-62.5-25 mcg DsDv NIFEdipine 2022-0 Yes [id number] 30mg Take 1 [facility] nivers ER 30 mg 5-26 tablet by ity of tablet 00:00: mouth in [place] the Medical morning. Branch lovastatin 2022-0 Yes [id number] 20mg Take 1 [facility] 20 mg 24 hr 5-26 tablet by ity of tablet 00:00: mouth at [place] [address] bedtime. Medical Branch terazosin 2 2022-0 Yes [id number] 4mg Take 2 [facility] mg capsule 5-26 capsules ity o f 00:00: by mouth [place] [address] at Medical bedtime. Branch finasteride 2022-0 Yes [id number] 5mg Take 1 [facility] 5 mg tablet 5-26 tablet by ity of 00:00: mouth in [place] the Medical morning. Branch sevelamer 2022-0 Yes [id number] 800mg Take 1 [facility] 800 mg 5-26 tablet by ity of tablet 00:00: mouth in [place] the Medical morning Branch and 1 tablet at noon and 1 tablet in the evening. Take with meals. hydrALAZINE 2022-0 Yes [id number] 50mg Take 1 [facility] 50 mg 5-26 tablet by ity of tablet 00:00: mouth at [place] [address] bedtime. Medical Branch foLIC acid 2022-0 Yes [id number] 1mg Take 1 [facility] 1 mg tablet 5-26 tablet by ity of 00:00: mouth in [place] the Medical morning. Branch calcitrioL 2022-0 Yes [id number] .25ug Take 1 [facility] 0.25 mcg 5-26 capsule by ity o f capsule 00:00: mouth in [place] the Medical morning. Branch fluticasone 2022-0 Yes [id number] 1{puff} Inhale 1 [facility] -umeclidin- 5-26 Puff in ity o f vilanter 00:00: the [place] (TRELEGY 00 morning. Medical ELLIPTA) Branch 100-62.5-25 mcg DsDv NIFEdipine 2022-0 Yes [id number] 30mg Take 1 [facility] nivers ER 30 mg 5-26 tablet by ity of tablet 00:00: mouth in [place] 00 the Medical morning. Branch lovastatin 2022-0 Yes [id number] 20mg Take 1 [facility] 20 mg 24 hr 5-26 tablet by ity of tablet 00:00: mouth at [place] [address] bedtime. Medical Branch terazosin 2 2022-0 Yes [id number] 4mg Take 2 [facility] mg capsule 5-26 capsules ity o f 00:00: by mouth [place] 00 at Medical bedtime. Branch finasteride 2022-0 Yes [id number] 5mg Take 1 [facility] 5 mg tablet 5-26 tablet by ity of 00:00: mouth in [place] 00 the Medical morning. Branch sevelamer 2022-0 Yes [id number] 800mg Take 1 [facility] 800 mg 5-26 tablet by ity of tablet 00:00: mouth in [place] 00 the Medical morning Branch and 1 tablet at noon and 1 tablet in the evening. Take with meals. hydrALAZINE 2022-0 Yes [id number] 50mg Take 1 [facility] 50 mg 5-26 tablet by ity of tablet 00:00: mouth at [place] [address] bedtime. Medical Branch foLIC acid 2022-0 Yes [id number] 1mg Take 1 [facility] 1 mg tablet 5-26 tablet by ity of 00:00: mouth in [place] 00 the Medical morning. Branch calcitrioL 2022-0 Yes [id number] .25ug Take 1 [facility] 0.25 mcg 5-26 capsule by ity o f capsule 00:00: mouth in [place] 00 the Medical morning. Branch fluticasone 2022-0 Yes [id number] 1{puff} Inhale 1 [facility] -umeclidin- 5-26 Puff in ity o f vilanter 00:00: the [place] (TRELEGY 00 morning. Medical ELLIPTA) Branch 100-62.5-25 mcg DsDv NIFEdipine 2022-0 Yes [id number] 30mg Take 1 U nivers ER 30 mg 5-26 tablet by ity of tablet 00:00: mouth in [place] 00 the Medical morning. Branch lovastatin 2022-0 Yes [id number] 20mg Take 1 [facility] 20 mg 24 hr 5-26 tablet by ity of tablet 00:00: mouth at [place] [address] bedtime. Medical Branch terazosin 2 2022-0 Yes [id number] 4mg Take 2 [facility] mg capsule 5-26 capsules ity o f 00:00: by mouth [place] 00 at Medical bedtime. Branch finasteride 2022-0 Yes [id number] 5mg Take 1 [facility] 5 mg tablet 5-26 tablet by ity of 00:00: mouth in [place] 00 the Medical morning. Branch sevelamer 2022-0 Yes [id number] 800mg Take 1 [facility] 800 mg 5-26 tablet by ity of tablet 00:00: mouth in [place] the Medical morning Branch and 1 tablet at noon and 1 tablet in the evening. Take with meals. foLIC acid 2022-0 Yes [id number] 1mg Take 1 [facility] 1 mg tablet 5-26 tablet by ity of 00:00: mouth in [place] the morning. Branch calcitrioL 2022-0 Yes [id number] .25ug Take 1 [facility] 0.25 mcg 5-26 capsule by ity o f capsule 00:00: mouth in [place] the morning. Branch fluticasone 2022-0 Yes [id number] 1{puff} Inhale 1 [facility] -umeclidin- 5-26 Puff in ity o f vilanter 00:00: the [place] (LEGY morning. Medical ELLIPTA) Branch 100-62.5-25 mcg DsDv NIFEdipine 2022-0 Yes [id number] 30mg Take 1 U nivers ER 30 mg 5-26 tablet by ity of tablet 00:00: mouth in [place] the morning. Branch lovastatin 2022-0 Yes [id number] 20mg Take 1 [facility] 20 mg 24 hr 5-26 tablet by ity of tablet 00:00: mouth at [place] [address] bedtime. Medical Branch finasteride 2022-0 Yes [id number] 5mg Take 1 [facility] 5 mg tablet 5-26 tablet by ity of 00:00: mouth in [place] the morning. Branch sevelamer 2022-0 Yes [id number] 800mg Take 1 [facility] 800 mg 5-26 tablet by ity of tablet 00:00: mouth in [place] the Medical morning Branch and 1 tablet at noon and 1 tablet in the evening. Take with meals. foLIC acid 2022-0 Yes [id number] 1mg Take 1 [facility] 1 mg tablet 5-26 tablet by ity of 00:00: mouth in [place] the morning. Branch calcitrioL 2022-0 Yes [id number] .25ug Take 1 [facility] 0.25 mcg 5-26 capsule by ity o f capsule 00:00: mouth in [place] the morning. Branch fluticasone 2022-0 Yes [id number] 1{puff} Inhale 1 [facility] -umeclidin- 5-26 Puff in ity o f vilanter 00:00: the [place] (TRELEGY morning. Medical ELLIPTA) Branch 100-62.5-25 mcg DsDv NIFEdipine 2022-0 Yes [id number] 30mg Take 1 U nivers ER 30 mg 5-26 tablet by ity of tablet 00:00: mouth in [place] the morning. Branch lovastatin 2022-0 Yes [id number] 20mg Take 1 [facility] 20 mg 24 hr 5-26 tablet by ity of tablet 00:00: mouth at [place] [address] bedtime. Medical Branch finasteride 2022-0 Yes [id number] 5mg Take 1 [facility] 5 mg tablet 5-26 tablet by ity of 00:00: mouth in [place] the Medical morning. Branch sevelamer 2022-0 Yes [id number] 800mg Take 1 [facility] 800 mg 5-26 tablet by ity of tablet 00:00: mouth in [place] the Medical morning Branch and 1 tablet at noon and 1 tablet in the evening. Take with meals. foLIC acid 2022-0 Yes [id number] 1mg Take 1 [facility] 1 mg tablet 5-26 tablet by ity of 00:00: mouth in [place] the Medical morning. Branch calcitrioL 2022-0 Yes [id number] .25ug Take 1 [facility] 0.25 mcg 5-26 capsule by ity o f capsule 00:00: mouth in [place] the morning. Branch fluticasone 2022-0 Yes [id number] 1{puff} Inhale 1 [facility] -umeclidin- 5-26 Puff in ity o f vilanter 00:00: the [place] (TRELEGY 00 morning. Medical ELLIPTA) Branch 100-62.5-25 mcg DsDv NIFEdipine 2022-0 Yes [id number] 30mg Take 1 U nivers ER 30 mg 5-26 tablet by ity of tablet 00:00: mouth in [place] the Medical morning. Branch lovastatin 2022-0 Yes [id number] 20mg Take 1 [facility] 20 mg 24 hr 5-26 tablet by ity of tablet 00:00: mouth at [place] [address] bedtime. Medical Branch finasteride 2022-0 Yes [id number] 5mg Take 1 [facility] 5 mg tablet 5-26 tablet by ity of 00:00: mouth in [place] 00 the Medical morning. Branch sevelamer 2022-0 Yes [id number] 800mg Take 1 [facility] 800 mg 5-26 tablet by ity of tablet 00:00: mouth in [place] 00 the Medical morning Branch and 1 tablet at noon and 1 tablet in the evening. Take with meals. foLIC acid 2022-0 Yes [id number] 1mg Take 1 [facility] 1 mg tablet 5-26 tablet by ity of 00:00: mouth in [place] the morning. Branch calcitrioL 2022-0 Yes [id number] .25ug Take 1 [facility] 0.25 mcg 5-26 capsule by ity o f capsule 00:00: mouth in [place] the morning. Branch fluticasone 2022-0 Yes [id number] 1{puff} Inhale 1 [facility] -umeclidin- 5-26 Puff in ity o f vilanter 00:00: the [place] (TRELEGY morning. Medical ELLIPTA) Branch 100-62.5-25 mcg DsDv NIFEdipine 2022-0 Yes [id number] 30mg Take 1 U nivers ER 30 mg 5-26 tablet by ity of tablet 00:00: mouth in [place] the morning. Branch lovastatin 2022-0 Yes [id number] 20mg Take 1 [facility] 20 mg 24 hr 5-26 tablet by ity of tablet 00:00: mouth at [place] [address] bedtime. Medical Branch finasteride 2022-0 Yes [id number] 5mg Take 1 [facility] 5 mg tablet 5-26 tablet by ity of 00:00: mouth in [place] the morning. Branch sevelamer 2022-0 Yes [id number] 800mg Take 1 [facility] 800 mg 5-26 tablet by ity of tablet 00:00: mouth in [place] the Medical morning Branch and 1 tablet at noon and 1 tablet in the evening. Take with meals. foLIC acid 2022-0 Yes [id number] 1mg Take 1 [facility] 1 mg tablet 5-26 tablet by ity of 00:00: mouth in [place] the morning. Branch calcitrioL 2022-0 Yes [id number] .25ug Take 1 [facility] 0.25 mcg 5-26 capsule by ity o f capsule 00:00: mouth in [place] the morning. Branch fluticasone 2022-0 Yes [id number] 1{puff} Inhale 1 [facility] -umeclidin- 5-26 Puff in ity o f vilanter 00:00: the [place] (TRELEGY morning. Medical ELLIPTA) Branch 100-62.5-25 mcg DsDv NIFEdipine 2022-0 Yes [id number] 30mg Take 1 U nivers ER 30 mg 5-26 tablet by ity of tablet 00:00: mouth in [place] the morning. Branch lovastatin 2022-0 Yes [id number] 20mg Take 1 [facility] 20 mg 24 hr 5-26 tablet by ity of tablet 00:00: mouth at [place] [address] bedtime. Medical Branch finasteride 2022-0 Yes [id number] 5mg Take 1 [facility] 5 mg tablet 5-26 tablet by ity of 00:00: mouth in [place] the morning. Branch sevelamer 2022-0 Yes [id number] 800mg Take 1 [facility] 800 mg 5-26 tablet by ity of tablet 00:00: mouth in [place] the morning Branch and 1 tablet at noon and 1 tablet in the evening. Take with meals. foLIC acid 2022-0 Yes [id number] 1mg Take 1 [facility] 1 mg tablet 5-26 tablet by ity of 00:00: mouth in [place] the morning. Branch calcitrioL 2022-0 Yes [id number] .25ug Take 1 [facility] 0.25 mcg 5-26 capsule by ity o f capsule 00:00: mouth in [place] the morning. Branch fluticasone 2022-0 Yes [id number] 1{puff} Inhale 1 [facility] -umeclidin- 5-26 Puff in ity o f vilanter 00:00: the [place] (TRELEGY 00 morning. Medical ELLIPTA) Branch 100-62.5-25 mcg DsDv NIFEdipine 2022-0 Yes [id number] 30mg Take 1 U nivers ER 30 mg 5-26 tablet by ity of tablet 00:00: mouth in [place] the morning. Branch lovastatin 2022-0 Yes [id number] 20mg Take 1 [facility] 20 mg 24 hr 5-26 tablet by ity of tablet 00:00: mouth at [place] [address] bedtime. Medical Branch finasteride 2022-0 Yes [id number] 5mg Take 1 [facility] 5 mg tablet 5-26 tablet by ity of 00:00: mouth in [place] the Medical morning. Branch sevelamer 2022-0 Yes [id number] 800mg Take 1 [facility] 800 mg 5-26 tablet by ity of tablet 00:00: mouth in [place] 00 the Medical morning Branch and 1 tablet at noon and 1 tablet in the evening. Take with meals. foLIC acid 2022-0 Yes [id number] 1mg Take 1 [facility] 1 mg tablet 5-26 tablet by ity of 00:00: mouth in [place] the Medical morning. Branch calcitrioL 2022-0 Yes [id number] .25ug Take 1 [facility] 0.25 mcg 5-26 capsule by ity o f capsule 00:00: mouth in [place] the Medical morning. Branch fluticasone 2022-0 Yes [id number] 1{puff} Inhale 1 [facility] -umeclidin- 5-26 Puff in ity o f vilanter 00:00: the [place] (TRELEGY morning. Medical ELLIPTA) Branch 100-62.5-25 mcg DsDv NIFEdipine 2022-0 Yes [id number] 30mg Take 1 U nivers ER 30 mg 5-26 tablet by ity of tablet 00:00: mouth in [place] the morning. Branch lovastatin 2022-0 Yes [id number] 20mg Take 1 [facility] 20 mg 24 hr 5-26 tablet by ity of tablet 00:00: mouth at [place] [address] bedtime. Medical Branch finasteride 2022-0 Yes [id number] 5mg Take 1 [facility] 5 mg tablet 5-26 tablet by ity of 00:00: mouth in [place] the morning. Branch sevelamer 2022-0 Yes [id number] 800mg Take 1 [facility] 800 mg 5-26 tablet by ity of tablet 00:00: mouth in [place] the Medical morning Branch and 1 tablet at noon and 1 tablet in the evening. Take with meals. foLIC acid 2022-0 Yes [id number] 1mg Take 1 [facility] 1 mg tablet 5-26 tablet by ity of 00:00: mouth in [place] the Medical morning. Branch calcitrioL 2022-0 Yes [id number] .25ug Take 1 [facility] 0.25 mcg 5-26 capsule by ity o f capsule 00:00: mouth in [place] the Medical morning. Branch fluticasone 2022-0 Yes [id number] 1{puff} Inhale 1 [facility] -umeclidin- 5-26 Puff in ity o f vilanter 00:00: the [place] (TRELEGY 00 morning. Medical ELLIPTA) Branch 100-62.5-25 mcg DsDv NIFEdipine 2022-0 Yes [id number] 30mg Take 1 U nivers ER 30 mg 5-26 tablet by ity of tablet 00:00: mouth in [place] the morning. Branch lovastatin 2022-0 Yes [id number] 20mg Take 1 [facility] 20 mg 24 hr 5-26 tablet by ity of tablet 00:00: mouth at [place] [address] bedtime. Medical Branch finasteride 2022-0 Yes [id number] 5mg Take 1 [facility] 5 mg tablet 5-26 tablet by ity of 00:00: mouth in [place] the Medical morning. Branch sevelamer 2022-0 Yes [id number] 800mg Take 1 [facility] 800 mg 5-26 tablet by ity of tablet 00:00: mouth in [place] the morning Branch and 1 tablet at noon and 1 tablet in the evening. Take with meals. foLIC acid 2022-0 Yes [id number] 1mg Take 1 [facility] 1 mg tablet 5-26 tablet by ity of 00:00: mouth in [place] the morning. Branch calcitrioL 2022-0 Yes [id number] .25ug Take 1 [facility] 0.25 mcg 5-26 capsule by ity o f capsule 00:00: mouth in [place] the morning. Branch fluticasone 2022-0 Yes [id number] 1{puff} Inhale 1 [facility] -umeclidin- 5-26 Puff in ity o f vilanter 00:00: the [place] (TRELEGY 00 morning. Medical ELLIPTA) Branch 100-62.5-25 mcg DsDv NIFEdipine 2022-0 Yes [id number] 30mg Take 1 U nivers ER 30 mg 5-26 tablet by ity of tablet 00:00: mouth in [place] the Medical morning. Branch lovastatin 2022-0 Yes [id number] 20mg Take 1 [facility] 20 mg 24 hr 5-26 tablet by ity of tablet 00:00: mouth at [place] [address] bedtime. Medical Branch finasteride 2022-0 Yes [id number] 5mg Take 1 [facility] 5 mg tablet 5-26 tablet by ity of 00:00: mouth in [place] the Medical morning. Branch sevelamer 3-0 Yes [id number] 800mg Take 1 [facility] 800 mg 5-26 tablet by ity of tablet 00:00: mouth in [place] the morning Branch and 1 tablet at noon and 1 tablet in the evening. Take with meals. foLIC acid 3-0 Yes [id number] 1mg Take 1 [facility] 1 mg tablet 5-26 tablet by ity of 00:00: mouth in [place] 00 the Medical morning. Branch calcitrioL 2022-0 Yes [id number] .25ug Take 1 [facility] 0.25 mcg 5-26 capsule by ity o f capsule 00:00: mouth in [place] 00 the Medical morning. Branch fluticasone 2022-0 Yes [id number] 1{puff} Inhale 1 [facility] -umeclidin- 5-26 Puff in ity o f vilanter 00:00: the [place] (TRELEGY 00 morning. Medical ELLIPTA) Branch 100-62.5-25 mcg DsDv NIFEdipine 2022-0 Yes [id number] 30mg Take 1 U nivers ER 30 mg 5-26 tablet by ity of tablet 00:00: mouth in [place] 00 the Medical morning. Branch lovastatin 2022-0 Yes [id number] 20mg Take 1 [facility] 20 mg 24 hr 5-26 tablet by ity of tablet 00:00: mouth at [place] [address] bedtime. Medical Branch finasteride 2022-0 Yes [id number] 5mg Take 1 [facility] 5 mg tablet 5-26 tablet by ity of 00:00: mouth in [place] 00 the Medical morning. Branch sevelamer 2022-0 Yes [id number] 800mg Take 1 [facility] 800 mg 5-26 tablet by ity of tablet 00:00: mouth in [place] 00 the Medical morning Branch and 1 tablet at noon and 1 tablet in the evening. Take with meals. foLIC acid 2022-0 Yes [id number] 1mg Take 1 [facility] 1 mg tablet 5-26 tablet by ity of 00:00: mouth in [place] 00 the Medical morning. Branch calcitrioL 2022-0 Yes [id number] .25ug Take 1 [facility] 0.25 mcg 5-26 capsule by ity o f capsule 00:00: mouth in [place] 00 the Medical morning. Branch NIFEdipine 3-0 Yes [id number] 30mg Take 1 U nivers ER 30 mg 5-26 tablet by ity of tablet 00:00: mouth in [place] 00 the Medical morning. Branch lovastatin 3-0 Yes [id number] 20mg Take 1 [facility] 20 mg 24 hr 5-26 tablet by ity of tablet 00:00: mouth at [place] [address] bedtime. Medical Branch finasteride 3-0 Yes [id number] 5mg Take 1 [facility] 5 mg tablet 5-26 tablet by ity of 00:00: mouth in [place] the morning. Branch sevelamer 3-0 Yes [id number] 800mg Take 1 [facility] 800 mg 5-26 tablet by ity of tablet 00:00: mouth in [place] the Medical morning Branch and 1 tablet at noon and 1 tablet in the evening. Take with meals. foLIC acid 2022-0 Yes [id number] 1mg Take 1 [facility] 1 mg tablet 5-26 tablet by ity of 00:00: mouth in [place] the Medical morning. Branch calcitrioL 2022-0 Yes [id number] .25ug Take 1 [facility] 0.25 mcg 5-26 capsule by ity o f capsule 00:00: mouth in [place] the Medical morning. Branch NIFEdipine 2022-0 Yes [id number] 30mg Take 1 U nivers ER 30 mg 5-26 tablet by ity of tablet 00:00: mouth in [place] the Medical morning. Branch lovastatin 2022-0 Yes [id number] 20mg Take 1 [facility] 20 mg 24 hr 5-26 tablet by ity of tablet 00:00: mouth at [place] [address] bedtime. Medical Branch finasteride 2022-0 Yes [id number] 5mg Take 1 [facility] 5 mg tablet 5-26 tablet by ity of 00:00: mouth in [place] the Medical morning. Branch sevelamer 2022-0 Yes [id number] 800mg Take 1 [facility] 800 mg 5-26 tablet by ity of tablet 00:00: mouth in [place] the Medical morning Branch and 1 tablet at noon and 1 tablet in the evening. Take with meals. foLIC acid 2022-0 Yes [id number] 1mg Take 1 [facility] 1 mg tablet 5-26 tablet by ity of 00:00: mouth in [place] the Medical morning. Branch calcitrioL 2022-0 Yes [id number] .25ug Take 1 [facility] 0.25 mcg 5-26 capsule by ity o f capsule 00:00: mouth in [place] the Medical morning. Branch NIFEdipine 3-0 Yes [id number] 30mg Take 1 U nivers ER 30 mg 5-26 tablet by ity of tablet 00:00: mouth in [place] the Medical morning. Branch lovastatin 2022-0 Yes [id number] 20mg Take 1 [facility] 20 mg 24 hr 5-26 tablet by ity of tablet 00:00: mouth at [place] [address] bedtime. Medical Branch finasteride 2022-0 Yes [id number] 5mg Take 1 [facility] 5 mg tablet 5-26 tablet by ity of 00:00: mouth in [place] the morning. Branch sevelamer 2022-0 Yes [id number] 800mg Take 1 [facility] 800 mg 5-26 tablet by ity of tablet 00:00: mouth in [place] the morning Branch and 1 tablet at noon and 1 tablet in the evening. Take with meals. foLIC acid 2022-0 Yes [id number] 1mg Take 1 [facility] 1 mg tablet 5-26 tablet by ity of 00:00: mouth in [place] the morning. Branch calcitrioL 2022-0 Yes [id number] .25ug Take 1 [facility] 0.25 mcg 5-26 capsule by ity o f capsule 00:00: mouth in [place] the morning. Branch NIFEdipine 2022-0 Yes [id number] 30mg Take 1 U nivers ER 30 mg 5-26 tablet by ity of tablet 00:00: mouth in [place] the morning. Branch lovastatin 2022-0 Yes [id number] 20mg Take 1 [facility] 20 mg 24 hr 5-26 tablet by ity of tablet 00:00: mouth at [place] [address] bedtime. Medical Branch finasteride 2022-0 Yes [id number] 5mg Take 1 [facility] 5 mg tablet 5-26 tablet by ity of 00:00: mouth in [place] the morning. Branch sevelamer 2022-0 Yes [id number] 800mg Take 1 [facility] 800 mg 5-26 tablet by ity of tablet 00:00: mouth in [place] the morning Branch and 1 tablet at noon and 1 tablet in the evening. Take with meals. foLIC acid 2022-0 Yes [id number] 1mg Take 1 [facility] 1 mg tablet 5-26 tablet by ity of 00:00: mouth in [place] the Medical morning. Branch calcitrioL 2022-0 Yes [id number] .25ug Take 1 [facility] 0.25 mcg 5-26 capsule by ity o f capsule 00:00: mouth in [place] the Medical morning. Branch NIFEdipine 3-0 Yes [id number] 30mg Take 1 U nivers ER 30 mg 5-26 tablet by ity of tablet 00:00: mouth in [place] the morning. Branch lovastatin 2022-0 Yes [id number] 20mg Take 1 [facility] 20 mg 24 hr 5-26 tablet by ity of tablet 00:00: mouth at [place] [address] bedtime. Medical Branch finasteride 2022-0 Yes [id number] 5mg Take 1 [facility] 5 mg tablet 5-26 tablet by ity of 00:00: mouth in [place] the morning. Branch sevelamer 2022-0 Yes [id number] 800mg Take 1 [facility] 800 mg 5-26 tablet by ity of tablet 00:00: mouth in [place] the morning Branch and 1 tablet at noon and 1 tablet in the evening. Take with meals. foLIC acid 2022-0 Yes [id number] 1mg Take 1 [facility] 1 mg tablet 5-26 tablet by [facility] 00:00: mouth in [place] the morning. Branch calcitrioL 2022-0 Yes [id number] .25ug Take 1 [facility] 0.25 mcg 5-26 capsule by [facility] o f capsule 00:00: mouth in [place] the morning. Branch NIFEdipine 2022-0 Yes [id number] 30mg Take 1 [facility] n[facility] ER 30 mg 5-26 tablet by [facility] tablet 00:00: mouth in [place] the morning. Branch lovastatin 2022-0 Yes [id number] 20mg Take 1 [facility] 20 mg 24 hr 5-26 tablet by [facility] tablet 00:00: mouth at [place] [address] bedtime. Medical Branch finasteride 2022-0 Yes [id number] 5mg Take 1 [facility] 5 mg tablet 5-26 tablet by [facility] 00:00: mouth in [place] the morning. Branch sevelamer 2022-0 Yes [id number] 800mg Take 1 [facility] 800 mg 5-26 tablet by [facility] tablet 00:00: mouth in [place] the morning Branch and 1 tablet at noon and 1 tablet in the evening. Take with meals. foLIC acid 2022-0 Yes [id number] 1mg Take 1 [facility] 1 mg tablet 5-26 tablet by [facility] 00:00: mouth in [place] the morning. Branch calcitrioL 2022-0 Yes [id number] .25ug Take 1 [facility] 0.25 mcg 5-26 capsule by [facility] o f capsule 00:00: mouth in [place] the morning. Branch NIFEdipine 2022-0 Yes [id number] 30mg Take 1 [facility] 30 mg 5-26 tablet by [facility] tablet 00:00: mouth in [place] the morning. Branch lovastatin 2022-0 Yes [id number] 20mg Take 1 [facility] 20 mg 24 hr 5-26 tablet by [facility] tablet 00:00: mouth at [place] [address] bedtime. Medical Branch finasteride 2022-0 Yes [id number] 5mg Take 1 [facility] 5 mg tablet 5-26 tablet by [facility] 00:00: mouth in [place] the morning. Branch sevelamer 2022-0 Yes [id number] 800mg Take 1 [facility] 800 mg 5-26 tablet by [facility] tablet 00:00: mouth in [place] the morning Branch and 1 tablet at noon and 1 tablet in the evening. Take with meals. foLIC acid 2022-0 Yes [id number] 1mg Take 1 [facility] 1 mg tablet 5-26 tablet by [facility] 00:00: mouth in [place] the morning. Branch calcitrioL 2022-0 Yes [id number] .25ug Take 1 [facility] 0.25 mcg 5-26 capsule by [facility] o f capsule 00:00: mouth in [place] the morning. Branch NIFEdipine 2022-0 Yes [id number] 30mg Take 1 [facility] 30 mg 5-26 tablet by [facility] tablet 00:00: mouth in [place] the morning. Branch lovastatin 2022-0 Yes [id number] 20mg Take 1 [facility] 20 mg 24 hr 5-26 tablet by [facility] tablet 00:00: mouth at [place] [address] bedtime. Medical Branch finasteride 2022-0 Yes [id number] 5mg Take 1 [facility] 5 mg tablet 5-26 tablet by [facility] 00:00: mouth in [place] the morning. Branch sevelamer 2022-0 Yes [id number] 800mg Take 1 [facility] 800 mg 5-26 tablet by [facility] tablet 00:00: mouth in [place] the Medical morning Branch and 1 tablet at noon and 1 tablet in the evening. Take with meals. foLIC acid 2022-0 Yes [id number] 1mg Take 1 [facility] 1 mg tablet 5-26 tablet by [facility] 00:00: mouth in [place] the Medical morning. Branch calcitrioL 2022-0 Yes [id number] .25ug Take 1 [facility] 0.25 mcg 5-26 capsule by [facility] o f capsule 00:00: mouth in [place] the morning. Branch NIFEdipine 2022-0 Yes [id number] 30mg Take 1 [facility] 30 mg 5-26 tablet by [facility] tablet 00:00: mouth in [place] the morning. Branch lovastatin 2022-0 Yes [id number] 20mg Take 1 [facility] 20 mg 24 hr 5-26 tablet by [facility] tablet 00:00: mouth at [place] [address] bedtime. Medical Branch finasteride 2022-0 Yes [id number] 5mg Take 1 [facility] 5 mg tablet 5-26 tablet by [facility] 00:00: mouth in [place] the morning. Branch sevelamer 2022-0 Yes [id number] 800mg Take 1 [facility] 800 mg 5-26 tablet by [facility] tablet 00:00: mouth in [place] the morning Branch and 1 tablet at noon and 1 tablet in the evening. Take with meals. foLIC acid 2022-0 Yes [id number] 1mg Take 1 [facility] 1 mg tablet 5-26 tablet by [facility] 00:00: mouth in [place] the morning. Branch calcitrioL 2022-0 Yes [id number] .25ug Take 1 [facility] 0.25 mcg 5-26 capsule by [facility] o f capsule 00:00: mouth in [place] the morning. Branch NIFEdipine 2022-0 Yes [id number] 30mg Take 1 [facility] 30 mg 5-26 tablet by [facility] tablet 00:00: mouth in [place] the morning. Branch lovastatin 2022-0 Yes [id number] 20mg Take 1 [facility] 20 mg 24 hr 5-26 tablet by [facility] tablet 00:00: mouth at [place] [address] bedtime. Medical Branch finasteride 2022-0 Yes [id number] 5mg Take 1 [facility] 5 mg tablet 5-26 tablet by [facility] 00:00: mouth in [place] the morning. Branch sevelamer 2022-0 Yes [id number] 800mg Take 1 [facility] 800 mg 5-26 tablet by [facility] tablet 00:00: mouth in [place] the Medical morning Branch and 1 tablet at noon and 1 tablet in the evening. Take with meals. foLIC acid 2022-0 Yes [id number] 1mg Take 1 [facility] 1 mg tablet 5-26 tablet by [facility] 00:00: mouth in [place] the Medical morning. Branch calcitrioL 2022-0 Yes [id number] .25ug Take 1 [facility] 0.25 mcg 5-26 capsule by [facility] o f capsule 00:00: mouth in [place] the morning. Branch NIFEdipine 3-0 Yes [id number] 30mg Take 1 [facility] 30 mg 5-26 tablet by [facility] tablet 00:00: mouth in [place] the Medical morning. Branch lovastatin 3-0 Yes [id number] 20mg Take 1 [facility] 20 mg 24 hr 5-26 tablet by [facility] tablet 00:00: mouth at [place] [address] bedtime. Medical Branch finasteride 2022-0 Yes [id number] 5mg Take 1 [facility] 5 mg tablet 5-26 tablet by [facility] 00:00: mouth in [place] the morning. Branch sevelamer 2022-0 Yes [id number] 800mg Take 1 [facility] 800 mg 5-26 tablet by [facility] tablet 00:00: mouth in [place] the Medical morning Branch and 1 tablet at noon and 1 tablet in the evening. Take with meals. foLIC acid 2022-0 Yes [id number] 1mg Take 1 [facility] 1 mg tablet 5-26 tablet by [facility] 00:00: mouth in [place] the morning. Branch calcitrioL 2022-0 Yes [id number] .25ug Take 1 [facility] 0.25 mcg 5-26 capsule by [facility] o f capsule 00:00: mouth in [place] the morning. Branch NIFEdipine 2022-0 Yes [id number] 30mg Take 1 [facility] 30 mg 5-26 tablet by [facility] tablet 00:00: mouth in [place] the Medical morning. Branch lovastatin 3-0 Yes [id number] 20mg Take 1 [facility] 20 mg 24 hr 5-26 tablet by [facility] tablet 00:00: mouth at [place] [address] bedtime. Medical Branch finasteride 3-0 Yes [id number] 5mg Take 1 [facility] 5 mg tablet 5-26 tablet by [facility] 00:00: mouth in [place] the Medical morning. Branch sevelamer 3-0 Yes [id number] 800mg Take 1 [facility] 800 mg 5-26 tablet by [facility] tablet 00:00: mouth in [place] the morning Branch and 1 tablet at noon and 1 tablet in the evening. Take with meals. foLIC acid 2022-0 Yes [id number] 1mg Take 1 [facility] 1 mg tablet 5-26 tablet by [facility] 00:00: mouth in [place] the morning. Branch calcitrioL 2022-0 Yes [id number] .25ug Take 1 [facility] 0.25 mcg 5-26 capsule by [facility] o f capsule 00:00: mouth in [place] the morning. Branch NIFEdipine 2022-0 Yes [id number] 30mg Take 1 [facility] 30 mg 5-26 tablet by [facility] tablet 00:00: mouth in [place] the morning. Branch lovastatin 2022-0 Yes [id number] 20mg Take 1 [facility] 20 mg 24 hr 5-26 tablet by [facility] tablet 00:00: mouth at [place] [address] bedtime. Medical Branch finasteride 2022-0 Yes [id number] 5mg Take 1 [facility] 5 mg tablet 5-26 tablet by [facility] 00:00: mouth in [place] the morning. Branch sevelamer 2022-0 Yes [id number] 800mg Take 1 [facility] 800 mg 5-26 tablet by [facility] tablet 00:00: mouth in [place] the morning Branch and 1 tablet at noon and 1 tablet in the evening. Take with meals. foLIC acid 2022-0 Yes [id number] 1mg Take 1 [facility] 1 mg tablet 5-26 tablet by [facility] 00:00: mouth in [place] the morning. Branch calcitrioL 2022-0 Yes [id number] .25ug Take 1 [facility] 0.25 mcg 5-26 capsule by [facility] o f capsule 00:00: mouth in [place] the morning. Branch NIFEdipine 3-0 Yes [id number] 30mg Take 1 [facility] 30 mg 5-26 tablet by [facility] tablet 00:00: mouth in [place] the morning. Branch lovastatin 3-0 Yes [id number] 20mg Take 1 [facility] 20 mg 24 hr 5-26 tablet by [facility] tablet 00:00: mouth at [place] [address] bedtime. Medical Branch finasteride 3-0 Yes [id number] 5mg Take 1 [facility] 5 mg tablet 5-26 tablet by [facility] 00:00: mouth in [place] the morning. Branch sevelamer 2023-0 Yes [id number] 800mg Take 1 [facility] 800 mg 5-26 tablet by [facility] tablet 00:00: mouth in [place] the morning Branch and 1 tablet at noon and 1 tablet in the evening. Take with meals. foLIC acid 3-0 Yes [id number] 1mg Take 1 [facility] 1 mg tablet 5-26 tablet by [facility] 00:00: mouth in [place] the Medical morning. Branch calcitrioL 2022-0 Yes [id number] .25ug Take 1 [facility] 0.25 mcg 5-26 capsule by [facility] o f capsule 00:00: mouth in [place] the morning. Branch NIFEdipine 2022-0 Yes [id number] 30mg Take 1 [facility] ER 30 mg 5-26 tablet by [facility] tablet 00:00: mouth in [place] the morning. Branch lovastatin 2022-0 Yes [id number] 20mg Take 1 [facility] 20 mg 24 hr 5-26 tablet by [facility] tablet 00:00: mouth at [place] [address] bedtime. Medical Branch finasteride 2022-0 Yes [id number] 5mg Take 1 [facility] 5 mg tablet 5-26 tablet by [facility] 00:00: mouth in [place] the morning. Branch sevelamer 2022-0 Yes [id number] 800mg Take 1 [facility] 800 mg 5-26 tablet by [facility] tablet 00:00: mouth in [place] the morning Branch and 1 tablet at noon and 1 tablet in the evening. Take with meals. foLIC acid 2022-0 Yes [id number] 1mg Take 1 [facility] 1 mg tablet 5-26 tablet by [facility] 00:00: mouth in [place] the morning. Branch calcitrioL 2022-0 Yes [id number] .25ug Take 1 [facility] 0.25 mcg 5-26 capsule by [facility] o f capsule 00:00: mouth in [place] the morning. Branch NIFEdipine 3-0 Yes [id number] 30mg Take 1 [facility] ER 30 mg 5-26 tablet by [facility] tablet 00:00: mouth in [place] the Medical morning. Branch lovastatin 3-0 Yes [id number] 20mg Take 1 [facility] 20 mg 24 hr 5-26 tablet by [facility] tablet 00:00: mouth at [place] [address] bedtime. Medical Branch finasteride 3-0 Yes [id number] 5mg Take 1 [facility] 5 mg tablet 5-26 tablet by [facility] 00:00: mouth in [place] the morning. Branch sevelamer 2023-0 Yes [id number] 800mg Take 1 [facility] 800 mg 5-26 tablet by [facility] tablet 00:00: mouth in [place] the morning Branch and 1 tablet at noon and 1 tablet in the evening. Take with meals. foLIC acid 3-0 Yes [id number] 1mg Take 1 [facility] 1 mg tablet 5-26 tablet by [facility] 00:00: mouth in [place] the morning. Branch calcitrioL 3-0 Yes [id number] .25ug Take 1 [facility] 0.25 mcg 5-26 capsule by [facility] o f capsule 00:00: mouth in [place] the morning. Branch NIFEdipine 3-0 Yes [id number] 30mg Take 1 [facility] ER 30 mg 5-26 tablet by [facility] tablet 00:00: mouth in [place] the morning. Branch lovastatin 2022-0 Yes [id number] 20mg Take 1 [facility] 20 mg 24 hr 5-26 tablet by [facility] tablet 00:00: mouth at [place] [address] bedtime. Medical Branch finasteride 3-0 Yes [id number] 5mg Take 1 [facility] 5 mg tablet 5-26 tablet by [facility] 00:00: mouth in [place] the morning. Branch sevelamer 3-0 Yes [id number] 800mg Take 1 [facility] 800 mg 5-26 tablet by [facility] tablet 00:00: mouth in [place] the morning Branch and 1 tablet at noon and 1 tablet in the evening. Take with meals. foLIC acid 3-0 Yes [id number] 1mg Take 1 [facility] 1 mg tablet 5-26 tablet by [facility] 00:00: mouth in [place] the morning. Branch calcitrioL 3-0 Yes [id number] .25ug Take 1 [facility] 0.25 mcg 5-26 capsule by [facility] o f capsule 00:00: mouth in [place] the morning. Branch NIFEdipine 3-0 Yes [id number] 30mg Take 1 [facility] ER 30 mg 5-26 tablet by [facility] tablet 00:00: mouth in [place] [address] the Medical morning. Branch lovastatin 3-0 Yes [id number] 20mg Take 1 [facility] 20 mg 24 hr 5-26 tablet by [facility] tablet 00:00: mouth at [place] [address] bedtime. Medical Branch finasteride 3-0 Yes [id number] 5mg Take 1 [facility] 5 mg tablet 5-26 tablet by [facility] 00:00: mouth in [place] the Medical morning. Branch sevelamer 3-0 Yes [id number] 800mg Take 1 [facility] 800 mg 5-26 tablet by [facility] tablet 00:00: mouth in [place] the Medical morning Branch and 1 tablet at noon and 1 tablet in the evening. Take with meals. foLIC acid 2022-0 Yes [id number] 1mg Take 1 [facility] 1 mg tablet 5-26 tablet by [facility] 00:00: mouth in [place] the Medical morning. Branch calcitrioL 2022-0 Yes [id number] .25ug Take 1 [facility] 0.25 mcg 5-26 capsule by [facility] o f capsule 00:00: mouth in [place] the Medical morning. Branch NIFEdipine 2022-0 Yes [id number] 30mg Take 1 [facility] ER 30 mg 5-26 tablet by [facility] tablet 00:00: mouth in [place] the Medical morning. Branch lovastatin 2022-0 Yes [id number] 20mg Take 1 [facility] 20 mg 24 hr 5-26 tablet by [facility] tablet 00:00: mouth at [place] [address] bedtime. Medical Branch finasteride 2022-0 Yes [id number] 5mg Take 1 [facility] 5 mg tablet 5-26 tablet by [facility] 00:00: mouth in [place] the Medical morning. Branch sevelamer 2022-0 Yes [id number] 800mg Take 1 [facility] 800 mg 5-26 tablet by [facility] tablet 00:00: mouth in [place] the Medical morning Branch and 1 tablet at noon and 1 tablet in the evening. Take with meals. foLIC acid 2022-0 Yes [id number] 1mg Take 1 [facility] 1 mg tablet 5-26 tablet by [facility] 00:00: mouth in [place] the Medical morning. Branch calcitrioL 2022-0 Yes [id number] .25ug Take 1 [facility] 0.25 mcg 5-26 capsule by [facility] o f capsule 00:00: mouth in [place] the Medical morning. Branch NIFEdipine 3-0 Yes [id number] 30mg Take 1 [facility] ER 30 mg 5-26 tablet by [facility] tablet 00:00: mouth in [place] the Medical morning. Branch lovastatin 2022-0 Yes [id number] 20mg Take 1 [facility] 20 mg 24 hr 5-26 tablet by [facility] tablet 00:00: mouth at [place] [address] bedtime. Medical Branch finasteride 2022-0 Yes [id number] 5mg Take 1 [facility] 5 mg tablet 5-26 tablet by [facility] 00:00: mouth in [place] the morning. Branch sevelamer 2022-0 Yes [id number] 800mg Take 1 [facility] 800 mg 5-26 tablet by [facility] tablet 00:00: mouth in [place] the morning Branch and 1 tablet at noon and 1 tablet in the evening. Take with meals. foLIC acid 2022-0 Yes [id number] 1mg Take 1 [facility] 1 mg tablet 5-26 tablet by [facility] 00:00: mouth in [place] the morning. Branch calcitrioL 2022-0 Yes [id number] .25ug Take 1 [facility] 0.25 mcg 5-26 capsule by [facility] o f capsule 00:00: mouth in [place] the morning. Branch NIFEdipine 2022-0 Yes [id number] 30mg Take 1 [facility] n[facility] ER 30 mg 5-26 tablet by [facility] tablet 00:00: mouth in [place] the morning. Branch lovastatin 2022-0 Yes [id number] 20mg Take 1 [facility] 20 mg 24 hr 5-26 tablet by [facility] tablet 00:00: mouth at [place] [address] bedtime. Medical Branch finasteride 2022-0 Yes [id number] 5mg Take 1 [facility] 5 mg tablet 5-26 tablet by [facility] 00:00: mouth in [place] the morning. Branch sevelamer 2022-0 Yes [id number] 800mg Take 1 [facility] 800 mg 5-26 tablet by [facility] tablet 00:00: mouth in [place] the morning Branch and 1 tablet at noon and 1 tablet in the evening. Take with meals. foLIC acid 2022-0 Yes [id number] 1mg Take 1 [facility] 1 mg tablet 5-26 tablet by [facility] 00:00: mouth in [place] the morning. Branch calcitrioL 2022-0 Yes [id number] .25ug Take 1 [facility] 0.25 mcg 5-26 capsule by [facility] o f capsule 00:00: mouth in [place] the morning. Branch NIFEdipine 2022-0 Yes [id number] 30mg Take 1 [facility] n[facility] ER 30 mg 5-26 tablet by [facility] tablet 00:00: mouth in [place] the morning. Branch lovastatin 2022-0 Yes [id number] 20mg Take 1 [facility] 20 mg 24 hr 5-26 tablet by [facility] tablet 00:00: mouth at [place] [address] bedtime. Medical Branch finasteride 2022-0 Yes [id number] 5mg Take 1 [facility] 5 mg tablet 5-26 tablet by [facility] 00:00: mouth in [place] the morning. Branch sevelamer 2022-0 Yes [id number] 800mg Take 1 [facility] 800 mg 5-26 tablet by [facility] tablet 00:00: mouth in [place] the morning Branch and 1 tablet at noon and 1 tablet in the evening. Take with meals. foLIC acid 2022-0 Yes [id number] 1mg Take 1 [facility] 1 mg tablet 5-26 tablet by [facility] 00:00: mouth in [place] the morning. Branch calcitrioL 2022-0 Yes [id number] .25ug Take 1 [facility] 0.25 mcg 5-26 capsule by [facility] o f capsule 00:00: mouth in [place] the morning. Branch NIFEdipine 2022-0 Yes [id number] 30mg Take 1 [facility] n[facility] ER 30 mg 5-26 tablet by [facility] tablet 00:00: mouth in [place] the morning. Branch lovastatin 2022-0 Yes [id number] 20mg Take 1 [facility] 20 mg 24 hr 5-26 tablet by [facility] tablet 00:00: mouth at [place] [address] bedtime. Medical Branch finasteride 2022-0 Yes [id number] 5mg Take 1 [facility] 5 mg tablet 5-26 tablet by [facility] 00:00: mouth in [place] the morning. Branch sevelamer 2022-0 Yes [id number] 800mg Take 1 [facility] 800 mg 5-26 tablet by [facility] tablet 00:00: mouth in [place] the morning Branch and 1 tablet at noon and 1 tablet in the evening. Take with meals. foLIC acid 2022-0 Yes [id number] 1mg Take 1 [facility] 1 mg tablet 5-26 tablet by [facility] 00:00: mouth in [place] the Medical morning. Branch calcitrioL 2022-0 Yes [id number] .25ug Take 1 [facility] 0.25 mcg 5-26 capsule by [facility] o f capsule 00:00: mouth in [place] the morning. Branch NIFEdipine 2022-0 Yes [id number] 30mg Take 1 [facility] ER 30 mg 5-26 tablet by [facility] tablet 00:00: mouth in [place] the morning. Branch lovastatin 2022-0 Yes [id number] 20mg Take 1 [facility] 20 mg 24 hr 5-26 tablet by [facility] tablet 00:00: mouth at [place] [address] bedtime. Medical Branch finasteride 2022-0 Yes [id number] 5mg Take 1 [facility] 5 mg tablet 5-26 tablet by [facility] 00:00: mouth in [place] the morning. Branch sevelamer 2022-0 Yes [id number] 800mg Take 1 [facility] 800 mg 5-26 tablet by [facility] tablet 00:00: mouth in [place] the morning Branch and 1 tablet at noon and 1 tablet in the evening. Take with meals. foLIC acid 2022-0 Yes [id number] 1mg Take 1 [facility] 1 mg tablet 5-26 tablet by [facility] 00:00: mouth in [place] the morning. Branch calcitrioL 2022-0 Yes [id number] .25ug Take 1 [facility] 0.25 mcg 5-26 capsule by [facility] o f capsule 00:00: mouth in [place] the morning. Branch NIFEdipine 2022-0 Yes [id number] 30mg Take 1 [facility] n[facility] ER 30 mg 5-26 tablet by [facility] tablet 00:00: mouth in [place] the morning. Branch lovastatin 2022-0 Yes [id number] 20mg Take 1 [facility] 20 mg 24 hr 5-26 tablet by [facility] tablet 00:00: mouth at [place] [address] bedtime. Medical Branch finasteride 2022-0 Yes [id number] 5mg Take 1 [facility] 5 mg tablet 5-26 tablet by [facility] 00:00: mouth in [place] the morning. Branch sevelamer 2022-0 Yes [id number] 800mg Take 1 [facility] 800 mg 5-26 tablet by [facility] tablet 00:00: mouth in [place] the morning Branch and 1 tablet at noon and 1 tablet in the evening. Take with meals. foLIC acid 2022-0 Yes [id number] 1mg Take 1 [facility] 1 mg tablet 5-26 tablet by [facility] 00:00: mouth in [place] [address] the morning. Branch calcitrioL 2022-0 Yes [id number] .25ug Take 1 [facility] 0.25 mcg 5-26 capsule by [facility] o f capsule 00:00: mouth in [place] the morning. Branch NIFEdipine 2022-0 Yes [id number] 30mg Take 1 [facility] ER 30 mg 5-26 tablet by [facility] tablet 00:00: mouth in [place] the Medical morning. Branch lovastatin 2022-0 Yes [id number] 20mg Take 1 [facility] 20 mg 24 hr 5-26 tablet by [facility] tablet 00:00: mouth at [place] [address] bedtime. Medical Branch finasteride 2022-0 Yes [id number] 5mg Take 1 [facility] 5 mg tablet 5-26 tablet by [facility] 00:00: mouth in [place] the morning. Branch sevelamer 2022-0 Yes [id number] 800mg Take 1 [facility] 800 mg 5-26 tablet by [facility] tablet 00:00: mouth in [place] the Medical morning Branch and 1 tablet at noon and 1 tablet in the evening. Take with meals. foLIC acid 2022-0 Yes [id number] 1mg Take 1 [facility] 1 mg tablet 5-26 tablet by [facility] 00:00: mouth in [place] the morning. Branch calcitrioL 2022-0 Yes [id number] .25ug Take 1 [facility] 0.25 mcg 5-26 capsule by [facility] o f capsule 00:00: mouth in [place] the morning. Branch NIFEdipine 2022-0 Yes [id number] 30mg Take 1 [facility] n[facility] ER 30 mg 5-26 tablet by [facility] tablet 00:00: mouth in [place] the morning. Branch lovastatin 2022-0 Yes [id number] 20mg Take 1 [facility] 20 mg 24 hr 5-26 tablet by [facility] tablet 00:00: mouth at [place] [address] bedtime. Medical Branch finasteride 2022-0 Yes [id number] 5mg Take 1 [facility] 5 mg tablet 5-26 tablet by [facility] 00:00: mouth in [place] the Medical morning. Branch sevelamer 3-0 Yes [id number] 800mg Take 1 [facility] 800 mg 5-26 tablet by [facility] tablet 00:00: mouth in [place] the Medical morning Branch and 1 tablet at noon and 1 tablet in the evening. Take with meals. foLIC acid 2022-0 Yes [id number] 1mg Take 1 [facility] 1 mg tablet 5-26 tablet by [facility] 00:00: mouth in [place] the Medical morning. Branch calcitrioL 2022-0 Yes [id number] .25ug Take 1 [facility] 0.25 mcg 5-26 capsule by [facility] o f capsule 00:00: mouth in [place] the morning. Branch NIFEdipine 2022-0 Yes [id number] 30mg Take 1 [facility] n[facility] ER 30 mg 5-26 tablet by [facility] tablet 00:00: mouth in [place] the Medical morning. Branch lovastatin 3-0 Yes [id number] 20mg Take 1 [facility] 20 mg 24 hr 5-26 tablet by [facility] tablet 00:00: mouth at [place] [address] bedtime. Medical Branch finasteride 2022-0 Yes [id number] 5mg Take 1 [facility] 5 mg tablet 5-26 tablet by [facility] 00:00: mouth in [place] the morning. Branch sevelamer 2022-0 Yes [id number] 800mg Take 1 [facility] 800 mg 5-26 tablet by [facility] tablet 00:00: mouth in [place] the morning Branch and 1 tablet at noon and 1 tablet in the evening. Take with meals. foLIC acid 2022-0 Yes [id number] 1mg Take 1 [facility] 1 mg tablet 5-26 tablet by [facility] 00:00: mouth in [place] the morning. Branch calcitrioL 2022-0 Yes [id number] .25ug Take 1 [facility] 0.25 mcg 5-26 capsule by [facility] o f capsule 00:00: mouth in [place] the morning. Branch NIFEdipine 2022-0 Yes [id number] 30mg Take 1 [facility] n[facility] ER 30 mg 5-26 tablet by [facility] tablet 00:00: mouth in [place] the morning. Branch lovastatin 3-0 Yes [id number] 20mg Take 1 [facility] 20 mg 24 hr 5-26 tablet by [facility] tablet 00:00: mouth at [place] [address] bedtime. Medical Branch finasteride 3-0 Yes [id number] 5mg Take 1 [facility] 5 mg tablet 5-26 tablet by [facility] 00:00: mouth in [place] the Medical morning. Branch sevelamer 3-0 Yes [id number] 800mg Take 1 [facility] 800 mg 5-26 tablet by [facility] tablet 00:00: mouth in [place] the morning Branch and 1 tablet at noon and 1 tablet in the evening. Take with meals. foLIC acid 2022-0 Yes [id number] 1mg Take 1 [facility] 1 mg tablet 5-26 tablet by [facility] 00:00: mouth in [place] the Medical morning. Branch calcitrioL 2022-0 Yes [id number] .25ug Take 1 [facility] 0.25 mcg 5-26 capsule by [facility] o f capsule 00:00: mouth in [place] the morning. Branch NIFEdipine 3-0 Yes [id number] 30mg Take 1 [facility] n[facility] ER 30 mg 5-26 tablet by [facility] tablet 00:00: mouth in [place] the morning. Branch lovastatin 2022-0 Yes [id number] 20mg Take 1 [facility] 20 mg 24 hr 5-26 tablet by [facility] tablet 00:00: mouth at [place] [address] bedtime. Medical Branch finasteride 3-0 Yes [id number] 5mg Take 1 [facility] 5 mg tablet 5-26 tablet by [facility] 00:00: mouth in [place] the morning. Branch sevelamer 2022-0 Yes [id number] 800mg Take 1 [facility] 800 mg 5-26 tablet by [facility] tablet 00:00: mouth in [place] the morning Branch and 1 tablet at noon and 1 tablet in the evening. Take with meals. foLIC acid 2022-0 Yes [id number] 1mg Take 1 [facility] 1 mg tablet 5-26 tablet by [facility] 00:00: mouth in [place] the morning. Branch calcitrioL 2022-0 Yes [id number] .25ug Take 1 [facility] 0.25 mcg 5-26 capsule by [facility] o f capsule 00:00: mouth in [place] the Medical morning. Branch NIFEdipine 3-0 Yes [id number] 30mg Take 1 [facility] n[facility] ER 30 mg 5-26 tablet by [facility] tablet 00:00: mouth in [place] the Medical morning. Branch lovastatin 3-0 Yes [id number] 20mg Take 1 [facility] 20 mg 24 hr 5-26 tablet by [facility] tablet 00:00: mouth at [place] [address] bedtime. Medical Branch finasteride 3-0 Yes [id number] 5mg Take 1 [facility] 5 mg tablet 5-26 tablet by [facility] of 00:00: mouth in [place] [address] the Medical morning. Branch sevelamer 2022-0 Yes [id number] 800mg Take 1 [facility] 800 mg 5-26 tablet by [facility] tablet 00:00: mouth in [place] the morning Branch and 1 tablet at noon and 1 tablet in the evening. Take with meals. foLIC acid 2022-0 Yes [id number] 1mg Take 1 [facility] 1 mg tablet 5-26 tablet by [facility] 00:00: mouth in [place] the morning. Branch calcitrioL 2022-0 Yes [id number] .25ug Take 1 [facility] 0.25 mcg 5-26 capsule by [facility] o f capsule 00:00: mouth in [place] the morning. Branch NIFEdipine 2022-0 Yes [id number] 30mg Take 1 [facility] nivers ER 30 mg 5-26 tablet by [facility] tablet 00:00: mouth in [place] the morning. Branch lovastatin 2022-0 Yes [id number] 20mg Take 1 [facility] 20 mg 24 hr 5-26 tablet by [facility] tablet 00:00: mouth at [place] [address] bedtime. Medical Branch finasteride 2022-0 Yes [id number] 5mg Take 1 [facility] 5 mg tablet 5-26 tablet by [facility] 00:00: mouth in [place] the morning. Branch sevelamer 2022-0 Yes [id number] 800mg Take 1 [facility] 800 mg 5-26 tablet by [facility] tablet 00:00: mouth in [place] the morning Branch and 1 tablet at noon and 1 tablet in the evening. Take with meals. foLIC acid 2022-0 Yes [id number] 1mg Take 1 [facility] 1 mg tablet 5-26 tablet by ity of 00:00: mouth in [place] the morning. Branch calcitrioL 2022-0 Yes [id number] .25ug Take 1 [facility] 0.25 mcg 5-26 capsule by ity o f capsule 00:00: mouth in [place] the morning. Branch lovastatin 2022-0 Yes [id number] 20mg Take 1 [facility] 20 mg 24 hr 5-26 tablet by ity of tablet 00:00: mouth at [place] [address] bedtime. Medical Branch sevelamer 2022-0 Yes [id number] 800mg Take 1 [facility] 800 mg 5-26 tablet by ity of tablet 00:00: mouth in [place] the morning Branch and 1 tablet at noon and 1 tablet in the evening. Take with meals. foLIC acid 2022-0 Yes [id number] 1mg Take 1 [facility] 1 mg tablet 5-26 tablet by ity of 00:00: mouth in [place] 00 the Medical morning. Branch calcitrioL 2022-0 Yes [id number] .25ug Take 1 [facility] 0.25 mcg 5-26 capsule by ity o f capsule 00:00: mouth in [place] 00 the Medical morning. Branch lovastatin 2022-0 Yes [id number] 20mg Take 1 [facility] 20 mg 24 hr 5-26 tablet by ity of tablet 00:00: mouth at [place] 00 bedtime. Medical Branch NIFEdipine 2022-2022- No [id number] 30mg Take 1 [facility] ER 30 mg 5-26 08-17 tablet by ity o f tablet 00:00: 00:00 mouth in [place] 00 :00 the Medical morning. Branch finasteride 2022-2022- No [id number] 5mg Take 1 [facility] 5 mg tablet 5-26 08-17 tablet by it y of 00:00: 00:00 mouth in [place] 00 :00 the Medical morning. Branch NIFEdipine 2022- No [id number] 30mg Take 1 [facility] ER 30 mg 5-26 08-17 tablet by ity o f tablet 00:00: 00:00 mouth in [place] 00 :00 the Medical morning. Branch finasteride 2022- No [id number] 5mg Take 1 [facility] 5 mg tablet 5-26 08-17 tablet by it y of 00:00: 00:00 mouth in [place] 00 :00 the Medical morning. Branch fluticasone 2022- No [id number] 1{puff} Inhale 1 Univers -umeclidin- 5-26 07-10 Puff in ity of vilanter 00:00: 00:00 the [place] (TRELEGY 00 :00 morning. Medical ELLIPTA) Branch 100-62.5-25 mcg DsDv hydrALAZINE 2022-2022- No [id number] 50mg Take 1 [facility] 50 mg 5-26 06-20 tablet by ity of tablet 00:00: 00:00 mouth at [place] 00 :00 bedtime. Medical Branch terazosin 2 2022-2022- No [id number] 4mg Take 2 [facility] mg capsule 5-26 06-20 capsules ity of 00:00: 00:00 by mouth [place] 00 :00 at Medical bedtime. Branch hydrALAZINE 2022- No [id number] 50mg Take 1 [facility] 50 mg 10-01 tablet by ity of tablet 00:00: 00:00 mouth at [place] 00 :00 bedtime. Medical Branch terazosin 2 2022- No [id number] 4mg Take 2 [facility] mg capsule 10-01-20 capsules ity of 00:00: 00:00 by mouth [place] 00 :00 at Medical bedtime. Branch peg-electro 2023- No Take as [place] lyte soln 06-07 Directed ity o f 236-22.74-6 00:00: 05:59 [place] .74 -5.86 00 :00 [facility] solution peg-electro 2023- No Take as [place] lyte soln 06-07 Directed ity o f 236-22.74-6 00:00: 05:59 [place] .74 -5.86 00 :00 [facility] solution peg-electro 2023- No Take as [place] [facility] lyte soln 06-07 Directed ity o f 236-22.74-6 00:00: 05:59 [place] .74 -5.86 00 :00 Medical [facility] solution peg-electro 2023- No Take as [facility] lyte soln 06-07 Directed ity o f 236-22.74-6 00:00: 05:59 [place] .74 -5.86 00 :00 Medical [facility] solution peg-electro 2023- No Take as [facility] lyte soln 06-07 Directed ity o f 236-22.74-6 00:00: 05:59 [place] .74 -5.86 00 :00 Medical [facility] solution peg-electro 2023- No Take as [place] lyte soln 06-07 Directed ity o f 236-22.74-6 00:00: 05:59 [place] .74 -5.86 00 :00 Medical [facility] solution peg-electro 2023- No Take as [facility] [place] lyte soln 06-07 Directed ity o f 236-22.74-6 00:00: 05:59 [place] .74 -5.86 00 :00 Medical gram Branch solution peg-electro 2022-2023- No Take as [facility] lyte soln 06-07 Directed ity o f 236-22.74-6 00:00: 05:59 [place] .74 -5.86 00 :00 Medical gram Branch solution peg-electro 2022-0 2023- No Take as [facility] lyte soln 06-07 Directed ity o f 236-22.74-6 00:00: 05:59 [place] .74 -5.86 00 :00 Medical gram Branch solution peg-electro 2022-0 2023- No Take as [facility] lyte soln 06-07 Directed ity o f 236-22.74-6 00:00: 05:59 [place] .74 -5.86 00 :00 Medical gram Branch solution peg-electro 2022-0 2023- No Take as [facility] lyte soln 06-07 Directed ity o f 236-22.74-6 00:00: 05:59 [place] .74 -5.86 00 :00 Medical gram Branch solution peg-electro 0 2023- No Take as [facility] lyte soln 06-07 Directed ity o f 236-22.74-6 00:00: 05:59 [place] .74 -5.86 00 :00 Medical gram Branch solution peg-electro 2022-2023- No Take as [facility] lyte soln 06-07 Directed ity o f 236-22.74-6 00:00: 05:59 [place] .74 -5.86 00 :00 Medical gram Branch solution peg-electro 2022-0 2023- No Take as [facility] lyte soln 06-07 Directed ity o f 236-22.74-6 00:00: 05:59 [place] .74 -5.86 00 :00 Medical gram Branch solution peg-electro 2022-0 2023- No Take as [facility] [place] lyte soln 06-07 Directed ity o f 236-22.74-6 00:00: 05:59 [place] .74 -5.86 00 :00 Medical gram Branch solution peg-electro 2022-0 2023- No Take as [facility] lyte soln 06-07 Directed ity o f 236-22.74-6 00:00: 05:59 [place] .74 -5.86 00 :00 Medical gram Branch solution peg-electro 2022-0 2023- No Take as [facility] lyte soln 06-07 Directed ity o f 236-22.74-6 00:00: 05:59 [place] .74 -5.86 00 :00 Medical gram Branch solution peg-electro 2022-0 2023- No Take as [facility] lyte soln 06-07 Directed ity o f 236-22.74-6 00:00: 05:59 [place] .74 -5.86 00 :00 Medical gram Branch solution peg-electro 2022-0 2023- No Take as [facility] lyte soln 06-07 Directed ity o f 236-22.74-6 00:00: 05:59 [place] .74 -5.86 00 :00 Medical gram Branch solution peg-electro 2022-0 2023- No Take as [place] lyte soln 06-07 Directed ity o f 236-22.74-6 00:00: 05:59 [place] .74 -5.86 00 :00 Medical gram Branch solution peg-electro 2022-0 2023- No Take as [place] lyte soln 06-07 Directed ity o f 236-22.74-6 00:00: 05:59 [place] .74 -5.86 00 :00 Medical gram Branch solution peg-electro 2022-0 2023- No Take as [place] lyte soln 06-07 Directed ity o f 236-22.74-6 00:00: 05:59 [place] .74 -5.86 00 :00 Medical gram Branch solution peg-electro 2022-0 2023- No Take as [place] lyte soln 06-07 Directed ity o f 236-22.74-6 00:00: 05:59 [place] .74 -5.86 00 :00 Medical gram Branch solution peg-electro 2022-0 2023- No Take as [place] [facility] lyte soln 06-07 Directed ity o f 236-22.74-6 00:00: 05:59 [place] .74 -5.86 00 :00 Medical gram Branch solution peg-electro 2023- No Take as [facility] lyte soln 06-07 Directed ity o f 236-22.74-6 00:00: 05:59 [place] .74 -5.86 00 :00 Medical gram Branch solution peg-electro 2022-2023- No Take as [facility] [place] lyte soln 06-07 Directed ity o f 236-22.74-6 00:00: 05:59 [place] .74 -5.86 00 :00 Medical gram Branch solution peg-electro 2022-2023- No Take as [facility] lyte soln 06-07 Directed ity o f 236-22.74-6 00:00: 05:59 [place] .74 -5.86 00 :00 Medical gram Branch solution peg-electro 2022-2023- No Take as [facility] lyte soln 06-07 Directed ity o f 236-22.74-6 00:00: 05:59 [place] .74 -5.86 00 :00 Medical gram Branch solution peg-electro 2023- No Take as [facility] lyte soln 06-07 Directed ity o f 236-22.74-6 00:00: 05:59 [place] .74 -5.86 00 :00 Medical gram Branch solution peg-electro 2023- No Take as [facility] lyte soln 06-07 Directed ity o f 236-22.74-6 00:00: 05:59 [place] .74 -5.86 00 :00 Medical gram Branch solution peg-electro 2022-0 2023- No Take as [facility] lyte soln 06-07 Directed ity o f 236-22.74-6 00:00: 05:59 [place] .74 -5.86 00 :00 Medical gram Branch solution peg-electro 2022-0 2023- No Take as [facility] lyte soln 06-07 Directed ity o f 236-22.74-6 00:00: 05:59 [place] .74 -5.86 00 :00 Medical gram Branch solution peg-electro 2022-0 2023- No Take as [facility] lyte soln 06-07 Directed ity o f 236-22.74-6 00:00: 05:59 [place] .74 -5.86 00 :00 Medical gram Branch solution peg-electro 2022-0 2023- No Take as [facility] lyte soln 06-07 Directed ity o f 236-22.74-6 00:00: 05:59 [place] .74 -5.86 00 :00 Medical gram Branch solution peg-electro 2022-0 2023- No Take as [facility] lyte soln 06-07 Directed ity o f 236-22.74-6 00:00: 05:59 [place] .74 -5.86 00 :00 Medical gram Branch solution peg-electro 2022-0 2023- No Take as [facility] lyte soln 06-07 Directed ity o f 236-22.74-6 00:00: 05:59 [place] .74 -5.86 00 :00 Medical gram Branch solution peg-electro 2022-0 2023- No Take as [facility] lyte soln 06-07 Directed ity o f 236-22.74-6 00:00: 05:59 [place] .74 -5.86 00 :00 Medical gram Branch solution peg-electro 2022-0 2023- No Take as [facility] lyte soln 06-07 Directed ity o f 236-22.74-6 00:00: 05:59 [place] .74 -5.86 00 :00 Medical gram Branch solution peg-electro 2022-0 2023- No Take as [facility] lyte soln 06-07 Directed ity o f 236-22.74-6 00:00: 05:59 [place] .74 -5.86 00 :00 Medical gram Branch solution peg-electro 2022-0 2023- No Take as [facility] lyte soln 06-07 Directed ity o f 236-22.74-6 00:00: 05:59 [place] .74 -5.86 00 :00 Medical gram Branch solution peg-electro 2022-0 2023- No Take as [facility] lyte soln 06-07 Directed ity o f 236-22.74-6 00:00: 05:59 [place] .74 -5.86 00 :00 Medical gram Branch solution peg-electro 2023- No Take as [facility] lyte soln 06-07 Directed ity o f 236-22.74-6 00:00: 05:59 [place] .74 -5.86 00 :00 Medical gram Branch solution peg-electro 2023- No Take as [facility] lyte soln 06-07 Directed ity o f 236-22.74-6 00:00: 05:59 [place] .74 -5.86 00 :00 Medical gram Branch solution peg-electro 2022-2023- No Take as Un r[facility] lyte soln 06-07 Directed ity o f 236-22.74-6 00:00: 05:59 [place] .74 -5.86 00 :00 Medical gram Branch solution peg-electro 2022-2023- No Take as Un r[facility] lyte soln 06-07 Directed ity o f 236-22.74-6 00:00: 05:59 [place] .74 -5.86 00 :00 Medical gram Branch solution peg-electro 2023- No Take as Un [facility] lyte soln 06-07 Directed ity o f 236-22.74-6 00:00: 05:59 [place] .74 -5.86 00 :00 Medical gram Branch solution peg-electro 2023- No Take as Un [facility] lyte soln 06-07 Directed ity o f 236-22.74-6 00:00: 05:59 [place] .74 -5.86 00 :00 Medical gram Branch solution peg-electro 0 2023- No Take as [facility] lyte soln 06-07 Directed ity o f 236-22.74-6 00:00: 05:59 [place] .74 -5.86 00 :00 Medical gram Branch solution peg-electro 0 2023- No Take as Un [facility] lyte soln 06-07 Directed ity o f 236-22.74-6 00:00: 05:59 [place] .74 -5.86 00 :00 Medical gram Branch solution peg-electro 2022-0 4- No Take as [facility] lyte soln 06-07 Directed ity o f 236-22.74-6 00:00: 05:59 [place] .74 -5.86 00 :00 Medical gram Branch solution peg-electro 2022-0 4- No Take as Un r[facility] lyte soln 06-07 Directed ity o f 236-22.74-6 00:00: 05:59 [place] .74 -5.86 00 :00 Medical gram Branch solution peg-electro 2022-0 2023- No Take as Un [facility] lyte soln 06-07 Directed ity o f 236-22.74-6 00:00: 05:59 [place] .74 -5.86 00 :00 Medical gram Branch solution peg-electro 2022-0 2023- No Take as [facility] lyte soln 06-07 Directed ity o f 236-22.74-6 00:00: 05:59 [place] . -5.86 00 :00 Medical gram Branch solution sevelamer Yes 800mg Take 800 Uni vers (RENVELA) 1-28 mg by ity of 800 mg 12:30: mouth in [place] tablet 10 the Medical morning Branch and 800 mg at noon and 800 mg in the evening. Take with meals. fluticasone 0 Yes 1{puff} Inhale 1 Univers -umeclidin- 1-28 Puff ity of vilanter 12:30: daily. [place] (TRELEGY 10 Medical ELLIPTA) Branch 100-62.5-25 mcg DsDv foLIC acid Yes 1mg Take 1 mg [facility] 1 mg tablet 1-28 by mouth ity of 12:30: in the [place] 10 morning. Medical Branch tiotropium 0 Yes Inhale. Univ ers bromide 1-28 ity of 1.25 12:30: [place] mcg/actuati 10 Medical on [place] Branch sevelamer 2022-0 Yes 800mg Take 800 Uni vers (RENVELA) 1-28 mg by ity of 800 mg 12:30: mouth in [place] tablet 10 the Medical morning Branch and 800 mg at noon and 800 mg in the evening. Take with meals. fluticasone 2023-0 Yes 1{puff} Inhale 1 Univers -umeclidin- 1-28 Puff ity of vilanter 12:30: daily. [place] ([address]) Branch 100-62.5-25 mcg DsDv foLIC acid 2022-0 Yes 1mg Take 1 mg [facility] 1 mg tablet 1-28 by mouth ity of 12:30: in the [place] 10 morning. Medical Branch tiotropium 2022-0 Yes Inhale. Univ ers bromide 1-28 ity of 1.25 12:30: [place] mcg/actuati 10 Medical on [place] Branch sevelamer 2022-0 Yes 800mg Take 800 Uni vers (RENVELA) 1-28 mg by ity of 800 mg 12:30: mouth in [place] tablet 10 the Medical morning Branch and 800 mg at noon and 800 mg in the evening. Take with meals. fluticasone 3-0 Yes 1{puff} Inhale 1 Univers -umeclidin- 1-28 Puff ity of vilanter 12:30: daily. [place] ([address]) Branch 100-62.5-25 mcg DsDv foLIC acid 2022-0 Yes 1mg Take 1 mg [facility] 1 mg tablet 1-28 by mouth ity of 12:30: in the [place] 10 morning. Medical Branch tiotropium 2022-0 Yes Inhale. Univ ers bromide 1-28 ity of 1.25 12:30: [place] mcg/actuati 10 Medical on [place] Branch sevelamer 2022-0 Yes 800mg Take 800 Uni vers (RENVELA) 1-28 mg by ity of 800 mg 12:30: mouth in [place] tablet 10 the Medical morning Branch and 800 mg at noon and 800 mg in the evening. Take with meals. fluticasone 3-0 Yes 1{puff} Inhale 1 Univers -umeclidin- 1-28 Puff ity of vilanter 12:30: daily. [place] ([address]) Branch 100-62.5-25 mcg DsDv foLIC acid 2022-0 Yes 1mg Take 1 mg [facility] 1 mg tablet 1-28 by mouth ity of 12:30: in the [place] 10 morning. Medical Branch tiotropium 2023-0 Yes Inhale. Univ ers bromide 1-28 ity of 1.25 12:30: [place] mcg/actuati 10 Medical on [place] Branch sevelamer 0 Yes 800mg Take 800 Uni vers (RENVELA) 1-28 mg by ity of 800 mg 12:30: mouth in [place] tablet 10 the Medical morning Branch and 800 mg at noon and 800 mg in the evening. Take with meals. fluticasone 2022-0 Yes 1{puff} Inhale 1 Univers -umeclidin- 1-28 Puff ity of vilanter 12:30: daily. [place] [facility] Branch 100-62.5-25 mcg DsDv foLIC acid 0 Yes 1mg Take 1 mg [facility] 1 mg tablet -28 by mouth ity of 12:30: in the [place] 10 morning. Medical Branch tiotropium 0 Yes Inhale. Univ ers bromide 1-28 ity of 1.25 12:30: [place] mcg/actuati 10 Medical on [place] Branch sevelamer 0 Yes 800mg Take 800 Uni vers (RENVELA) 1-28 mg by ity of 800 mg 12:30: mouth in [place] tablet 10 the Medical morning Branch and 800 mg at noon and 800 mg in the evening. Take with meals. fluticasone 0 Yes 1{puff} Inhale 1 Univers -umeclidin- 1-28 Puff ity of vilanter 12:30: daily. [place] [facility] Branch 100-62.5-25 mcg DsDv foLIC acid 0 Yes 1mg Take 1 mg [facility] 1 mg tablet 28 by mouth ity of 12:30: in the [place] 10 morning. Medical Branch tiotropium 0 Yes Inhale. Univ ers bromide 1-28 ity of 1.25 12:30: [place] mcg/actuati 10 Medical on [place] Branch aspirin 0 2022- No 325mg Take 325 Univ ers E.C. 06-04-27 mg by ity of (ECOTRIN) 15:53: 00:00 mouth [place] 325 mg EC 57 :00 daily. Medical tablet Branch terazosin 0 2022- No 5mg Take 5 mg [facility] (HYTRIN) 5 06-04 by mouth 2 it y of mg capsule 15:53: 00:00 (two) [place] 57 :00 times Medical daily. Branch peg-electro 2022- No 2000mL 2,000 mL, [facility] [place] lyte soln 06-03 Oral, ity of (GOLYTELY) 23:15: 23:15 ONCE, 1 [place] as 236-22.74-6 00 :00 dose, On Medi dimitry .74 -5.86 [facility] gram 06/03/22 at solution 1715, 2,000 mL Routine tiotropium Yes 18ug 18 mcg, [facility] ers (SPIRIVA) 06-03 Inhalation ity of inhalation 15:00: , DAILY, [place] as 18 mcg 00 First dose Medical on [facility] 06/03/22 at 0900, Until Discontinu ed tiotropium Yes 18ug 18 mcg, [facility] ers (SPIRIVA) 06-03 Inhalation ity of inhalation 15:00: , DAILY, [place] as 18 mcg 00 First dose Medical on [facility] 06/03/22 at 0900, Until Discontinu ed sevelamer Yes 800mg 800 mg, [facility] ers (RENVELA) 06-03 Oral, TID ity o f tablet 800 14:00: MEALS, [place] mg 00 First dose Medical on [facility] 06/03/22 at 0800, Until Discontinu ed, Routine sevelamer Yes 800mg 800 mg, [facility] ers (RENVELA) 06-03 Oral, TID ity o f tablet 800 14:00: MEALS, [place] mg 00 First dose Medical on [facility] 06/03/22 at 0800, Until Discontinu ed, Routine methocarbam Yes 500mg 500 mg, [facility] oL 06-03 Oral, ity of (ROBAXIN) 09:17: TIDPRN, [place] tablet 500 30 Starting Medic al mg on [facility] 06/03/22 at 0317, Until Discontinu ed, Routine, Muscle Spasms methocarbam Yes 500mg 500 mg, [facility] oL 06-03 Oral, ity of (ROBAXIN) 09:17: TIDPRN, [place] tablet 500 30 Starting Medic al mg on [facility] 06/03/22 at 0317, Until Discontinu ed, Routine, Muscle Spasms albuterol 2022-0 Yes 2{puff} 2 Puff, [facility] (VENTOLIN) 06-03 Inhalation ity of inhaler 2 06:35: , Q4HPRN, [place] Puff 48 Starting Medical on [place] Branch 06/03/22 at 0035, Until Discontinu ed, Routine, Wheezing, Shortness of Breath albuterol 2022-0 Yes 2{puff} 2 Puff, [place] (VENTOLIN) 06-03 Inhalation ity of inhaler 2 06:35: , Q4HPRN, [place] Puff 48 Starting Medical on [place] Branch 06/03/22 at 0035, Until Discontinu ed, Routine, Wheezing, Shortness of Breath acetaminoph 2022-0 Yes 650mg 650 mg, [facility] en 06-03 Oral, ity of (TYLENOL) 05:17: Q6HPRN, [place] tablet 650 08 Starting Medic al mg on Tue Branch 06/02/22 at 2317, Until Discontinu ed, Routine, Pain (scale 1-3) acetaminoph 2022-0 Yes 650mg 650 mg, [facility] en 06-03 Oral, ity of (TYLENOL) 05:17: Q6HPRN, [place] tablet 650 08 Starting Medic al mg on Tue Branch 06/02/22 at 2317, Until Discontinu ed, Routine, Pain (scale 1-3) tiotropium 2022-0 Yes Inhale. Univ ers bromide -26 ity of 1.25 03:23: [place] mcg/actuati 08 Medical on [place] Branch sevelamer 2022-0 Yes 800mg Take 800 Uni vers (RENVELA) 1-26 mg by ity of 800 mg 03:18: mouth in [place] tablet 01 the Medical morning Branch and 800 mg at noon and 800 mg in the evening. Take with meals. fluticasone 2022-0 Yes 1{puff} Inhale 1 Univers -umeclidin- -26 Puff ity of vilanter 03:18: daily. [place] (TRELEGY 01 Medical ELLIPTA) Branch 100-62.5-25 mcg DsDv foLIC acid 2022-0 Yes 1mg Take 1 mg [facility] 1 mg tablet 06-03 by mouth ity of 03:18: in the morning. Medical Branch losartan Yes 25mg 25 mg, Univers (COZAAR) 1-25 Oral, ity of tablet 25 15:00: DAILY, [place] mg 00 First dose Medical (after Branch last modificati on) on Tue06/02/22 at 0900, Until Discontinu ed, Routine losartan Yes 25mg 25 mg, Univers (COZAAR) 1-25 Oral, ity of tablet 25 15:00: DAILY, [place] mg 00 First dose Medical (after Branch last modificati on) on Tue06/02/22 at 0900, Until Discontinu ed, Routine losartan Yes 25mg 25 mg, Univers (COZAAR) 1-25 Oral, ity of tablet 25 15:00: DAILY, [place] mg 00 First dose Medical (after Branch last modificati on) on Tue06/02/22 at 0900, Until Discontinu ed, Routine epoetin No 8000U 8,000 Univers claudine-epbx -25 -25 Units, ity of (RETACRIT) 13:30: 15:06 Slow IV [place] as injection 00 :00 Push, Medical 8,000 Units DIALYSIS Bran ch ONCE - PT ROOM, 1 dose, On Tue06/02/22 at 0730, Routine
cruise staff member approving Restricted medication : BLANE, CRYSTAL artificial Yes 1[drp] 1 Drop, [facility] tears(hypro 1-25 Both Eyes, it y of mellose) 06:16: PRNAnuja (ISOPTO-TEA 04 Starting Medi dimitry RS) 0.5 % on Tue [place] ophthalmic 06/02/22 at drops 1 0016, Drop Until Discontinu ed, Routine, Dry eyes artificial Yes 1[drp] 1 Drop, [facility] tears(hypro 1-25 Both Eyes, it y of mellose) 06:16: PRN, [place] (ISOPTO-TEA 04 Starting Medi dimitry RS) 0.5 % on Tue [place] ophthalmic 06/02/22 at drops 1 0016, Drop Until Discontinu ed, Routine, Dry eyes pantoprazol Yes 40mg 40 mg, Univ ers e 1-25 Oral, BID, ity of (PROTONIX) 02:00: First dose [place] EC tablet 00 on [facility] 40 mg 06/01/22 at Branch 2000, Until Discontinu ed, Routine pantoprazol 2022-0 Yes 40mg 40 mg, Univ ers e -25 Oral, BID, ity of (PROTONIX) 02:00: First dose [place] EC tablet 00 on [facility] 40 mg 06/01/22 at Branch 2000, Until Discontinu ed, Routine losartan 2022-0 2022- No 12.5mg 12.5 mg, [facility] (COZAAR) 06-01 Oral, ity of tablet 12.5 17:45: 18:43 ONCE, 1 [place] mg 00 :00 dose, On Medical [facility] 06/01/22 at 1145, Routine clopidogreL 2022-0 Yes 75mg 75 mg, Univ ers (PLAVIX) 75 06-01 Oral, ity of mg tablet 17:00: DAILY, [place] 75 mg 00 First dose Medical on [facility] 06/01/22 at 1100, Until Discontinu ed, Routine aspirin 2022-0 Yes 81mg 81 mg, Univers chewable 06-01 Oral, ity of tablet 81 17:00: DAILY, [place] mg 00 First dose Medical on [facility] 06/01/22 at 1100, Until Discontinu ed, Routine clopidogreL 2022-0 2022- No 75mg 75 mg, Uni vers (PLAVIX) 75 06-01 Oral, ity of mg tablet 17:00: 15:26 DAILY, [place] 75 mg 00 :29 First dose Medical on [facility] 06/01/22 at 1100, Until Discontinu ed, Routine aspirin 2022-0 2022- No 81mg 81 mg, Univers chewable 06-01 Oral, ity of tablet 81 17:00: 15:26 DAILY, [place] mg 00 :32 First dose Medical on [facility] 06/01/22 at 1100, Until Discontinu ed, Routine losartan 2022-0 Yes 12.5mg 12.5 mg, Uni vers (COZAAR) 06-01 Oral, ity of tablet 12.5 15:00: DAILY, [place] mg 00 First dose Medical on [facility] 06/01/22 at 0900, Until Discontinu ed, Routine losartan 2022-0 Yes 12.5mg 12.5 mg, Uni vers (COZAAR) 06-01 Oral, ity of tablet 12.5 15:00: DAILY, [place] mg 00 First dose Medical on Tue Branch 06/01/22 at 0900, Until Discontinu ed, Routine losartan 2022- No 12.5mg 12.5 mg, [facility] (COZAAR) 06-01 Oral, ity of tablet 12.5 15:00: 16:57 DAILY, [place] mg 00 :39 First dose Medical on Tue Branch 06/01/22 at 0900, Until Discontinu ed, Routine simethicone 2022-2022- No PRN, Unive rs (GAS RELIEF 05-31 Starting ity of (SIMETHICON 20:43: 21:42 on Tue [place] as E)) 40 00 :24 05/31/22 at Medical mg/0.6 mL 1443, Branch drops Until Tue05/31/22 at 1542, Routine, Intra-op sevelamer 2022-0 Yes 800mg Take 800 Uni vers (RENVELA) 1-23 mg by ity of 800 mg 16:15: mouth in [place] tablet 06 the Medical morning Branch and 800 mg at noon and 800 mg in the evening. Take with meals. fluticasone 2022-0 Yes 1{puff} Inhale 1 Univers -umeclidin- 1-23 Puff ity of vilanter 16:15: daily. [place] (TRELEGY 06 Medical ELLIPTA) Branch 100-62.5-25 mcg DsDv foLIC acid 0 Yes 1mg Take 1 mg [place] 1 mg tablet 23 by mouth ity of 16:15: in the [place] 06 morning. Medical Branch aspirin 2022-0 Yes 325mg Take 325 Un[facility] rs E.C. 1-23 mg by ity of (ECOTRIN) 16:13: mouth [place] 325 mg EC 24 daily. Medical tablet Branch terazosin 2022-0 Yes 5mg Take 5 mg Uni vers (HYTRIN) 5 -23 by mouth 2 ity of mg capsule 16:13: (two) [place] 24 times Medical daily. Branch aspirin 2022-0 Yes 325mg Take 325 Unive rs E.C. 1-23 mg by ity of (ECOTRIN) 16:13: mouth [place] 325 mg EC 24 daily. Medical tablet Branch terazosin 2022-0 Yes 5mg Take 5 mg Uni vers (HYTRIN) 5 1-23 by mouth 2 ity of mg capsule 16:13: (two) [place] 24 times Medical daily. Branch aspirin 2022-0 Yes 325mg Take 325 Unive rs E.C. 1-23 mg by ity of (ECOTRIN) 16:06: mouth [place] 325 mg EC 23 daily. Medical tablet Branch terazosin 2022-0 Yes 5mg Take 5 mg Uni vers (HYTRIN) 5 1-23 by mouth 2 ity of mg capsule 16:06: (two) [place] 23 times Medical daily. Branch sevelamer 2022-0 Yes 800mg Take 800 Uni vers (RENVELA) 1-23 mg by ity of 800 mg 16:06: mouth in [place] tablet 23 the Medical morning Branch and 800 mg at noon and 800 mg in the evening. Take with meals. fluticasone 2022-0 Yes 1{puff} Inhale 1 Univers -umeclidin- 1-23 Puff ity of vilanter 16:06: daily. [place] [facility] Branch 100-62.5-25 mcg DsDv foLIC acid 0 Yes 1mg Take 1 mg [place] 1 mg tablet 1-23 by mouth ity of 16:06: in the [place] 23 morning. Medical Branch aspirin 2022-0 Yes 325mg Take 325 Unive rs E.C. 1-23 mg by ity of (ECOTRIN) 16:06: mouth [place] 325 mg EC 23 daily. Medical tablet Branch terazosin 2022-0 Yes 5mg Take 5 mg Uni vers (HYTRIN) 5 1-23 by mouth 2 ity of mg capsule 16:06: (two) [place] 23 times Medical daily. Branch sevelamer 2022-0 Yes 800mg Take 800 Uni vers (RENVELA) 1-23 mg by ity of 800 mg 16:06: mouth in [place] tablet 23 the Medical morning Branch and 800 mg at noon and 800 mg in the evening. Take with meals. fluticasone 3-0 Yes 1{puff} Inhale 1 Univers -umeclidin- 1-23 Puff ity of vilanter 16:06: daily. [place] [facility] ELLIPTA) Branch 100-62.5-25 mcg DsDv foLIC acid Yes 1mg Take 1 mg Un rachel 1 mg tablet 05-31 by mouth ity of 16:06: in the morning. Medical Branch epoetin 2022- No 8000U 8,000 [facility] claudine-epbx 05-31 Units, ity of (RETACRIT) 15:15: 15:30 Slow IV [place] injection 00 :00 Push, Medical 8,000 Units DIALYSIS Bran ch ONCE - PT ROOM, 1 dose, On Tue05/31/22 at 0915, Routine
cruise staff member approving Restricted medication : MIGUELINA VERGARA epoetin 2022- No 8000U 8,000 [facility] claudine-epbx 05-31 Units, ity of (RETACRIT) 15:15: 15:30 Slow IV [place] injection 00 :00 Push, Medical 8,000 Units DIALYSIS Bran ch ONCE - PT ROOM, 1 dose, On Tue05/31/22 at 0915, Routine
cruise staff member approving Restricted medication : MIGUELINA VERGARA atorvastati Yes 40mg 40 mg, Univ ers n (LIPITOR) 1 Oral, QHS, it y of tablet 40 03:00: First dose [place] mg 00 (after Medical last Branch modificati on) on Tue05/30/22 at 2100, Until Discontinu ed atorvastati Yes 40mg 40 mg, Univ ers n (LIPITOR) 05-31 Oral, QHS, it y of tablet 40 03:00: First dose [place] mg 00 (after Medical last Branch modificati on) on Tue05/30/22 at 2100, Until Discontinu ed atorvastati Yes 40mg 40 mg, Univ ers n (LIPITOR) 05-31 Oral, QHS, it y of tablet 40 03:00: First dose [place] mg 00 (after Medical last Branch modificati on) on Tue05/30/22 at 2100, Until Discontinu ed atorvastati Yes 40mg 40 mg, Univ ers n (LIPITOR) 1-23 Oral, QHS, it y of tablet 40 03:00: First dose [place] mg 00 (after Medical last Branch modificati on) on 05/30/22 at 2100, Until Discontinu ed atorvastati 0 Yes 40mg 40 mg, Univ ers n (LIPITOR) 05-31 Oral, QHS, it y of tablet 40 03:00: First dose [place] mg 00 (after Medical last Branch modificati on) on 05/30/22 at 2100, Until Discontinu ed bisacodyL 2022- No 10mg 10 mg, Unive rs (DULCOLAX) 05-30 Oral, ity of tablet 10 22:30: 22:36 PRE-PROCED [place] mg 00 :00 URE ONCE, Medical 1 dose, Branch Starting on 05/30/22 at 1630, Until Discontinu ed, Routine, Bowel Prep, Colonoscop y bisacodyL 2022- No 10mg 10 mg, Unive rs (DULCOLAX) 05-30 Oral, ity of tablet 10 22:30: 22:36 PRE-PROCED [place] mg 00 :00 URE ONCE, Medical 1 dose, Branch Starting on 05/30/22 at 1630, Until Discontinu ed, Routine, Bowel Prep, Colonoscop y bisacodyL 2022- No 10mg 10 mg, Unive rs (DULCOLAX) 05-30 Oral, ity of tablet 10 19:00: 19:00 PRE-PROCED [place] mg 00 :00 URE ONCE, Medical 1 dose, Branch Starting on 05/30/22 at 1300, Until Discontinu ed, Routine, Bowel Prep, Colonoscop y bisacodyL 2022- No 10mg 10 mg, Unive rs (DULCOLAX) 05-30 Oral, ity of tablet 10 19:00: 19:00 PRE-PROCED [place] mg 00 :00 URE ONCE, Medical 1 dose, Branch Starting on 05/30/22 at 1300, Until Discontinu ed, Routine, Bowel Prep, Colonoscop y pantoprazol 0 Yes 40mg 40 mg, Univ ers e 05-30 Slow IV ity of (PROTONIX) 15:45: Push, [place] injection 00 Q12H, Medical 40 mg First dose Branch on 05/30/22 at 0945, Until Discontinu ed pantoprazol 2023-0 Yes 40mg 40 mg, Univ ers e 05-30 Slow IV ity of (PROTONIX) 15:45: Push, [place] injection 00 Q12H, Medical 40 mg First dose Branch on 05/30/22 at 0945, Until Discontinu ed pantoprazol 2022-0 Yes 40mg 40 mg, Univ ers e 05-30 Slow IV ity of (PROTONIX) 15:45: Push, [place] injection 00 Q12H, Medical 40 mg First dose Branch on 05/30/22 at 0945, Until Discontinu ed pantoprazol 2022-0 2023- No 40mg 40 mg, Uni vers e 05-30-24 Slow IV ity of (PROTONIX) 15:45: 21:18 Push, [place] injection 00 :23 Q12H, Medical 40 mg First dose Branch on 05/30/22 at 0945, Until Discontinu ed metoprolol 3-0 Yes 25mg 25 mg, Unive rs succinate - Oral, ity of XL (TOPROL 15:00: DAILY, [place] XL) tablet 00 First dose Med ical 25 mg on Sun Branch 05/30/22 at 0900, Until Discontinu ed, Routine metoprolol 3-0 Yes 25mg 25 mg, Unive rs succinate - Oral, ity of XL (TOPROL 15:00: DAILY, [place] XL) tablet 00 First dose Med ical 25 mg on [place] Branch 05/30/22 at 0900, Until Discontinu ed, Routine metoprolol 3-0 Yes 25mg 25 mg, Unive rs succinate - Oral, ity of XL (TOPROL 15:00: DAILY, [place] XL) tablet 00 First dose Med ical 25 mg on [place] Branch 05/30/22 at 0900, Until Discontinu ed, Routine metoprolol 3-0 Yes 25mg 25 mg, Unive rs succinate -22 Oral, ity of XL (TOPROL 15:00: DAILY, [place] XL) tablet 00 First dose Med ical 25 mg on [place] Branch 05/30/22 at 0900, Until Discontinu ed, Routine metoprolol 2023-0 Yes 25mg 25 mg, Unive rs succinate -22 Oral, ity of XL (TOPROL 15:00: DAILY, [place] XL) tablet 00 First dose Med ical 25 mg on [place] Branch 05/30/22 at 0900, Until Discontinu ed, Routine peg-electro 3-0 Yes 4000mL 4,000 mL, Univers lyte soln 05-30 Oral, PRN ity o f (GOLYTELY) 14:50: - SEE [place] 74-6 41 INSTRUCTIO Me dical .74 -5.86 NS, Branch gram Starting solution on [place] 4,000 mL 05/30/22 at 0850, Until Discontinu ed, Routine, Bowel Prep, colonoscop y peg-electro 2022-0 Yes 4000mL 4,000 mL, [facility] [place] lyte soln 05-30 Oral, PRN ity o f (GOLYTELY) 14:50: - SEE [place] [id number] [phone] INSTRUCTIO Me dical .74 -5.86 NS, Branch gram Starting solution on [place] 4,000 mL 05/30/22 at 0850, Until Discontinu ed, Routine, Bowel Prep, colonoscop y peg-electro 2022-0 Yes 4000mL 4,000 mL, [facility] [place] lyte soln 05-30 Oral, PRN ity o f (GOLYTELY) 14:50: - SEE [place] [id number] [phone] INSTRUCTIO Il dical .74 -5.86 NS, Branch gram Starting solution on [place] 4,000 mL 05/30/22 at 0850, Until Discontinu ed, Routine, Bowel Prep, colonoscop y peg-electro 2022-0 2022- No 4000mL 4,000 mL, [facility] [place] lyte soln 05-30- Oral, PRN ity of (GOLYTELY) 14:50: 22:28 - SEE [place] 41 :44 INSTRUCTIO Il dical .74 -5.86 NS, Branch gram Starting solution on [place] 4,000 mL 05/30/22 at 0850, Until [place] 06/03/22 at 1628, Routine, Bowel Prep, colonoscop y ondansetron 2022-0 Yes 4mg 4 mg, Slow Univers (ZOFRAN 05-30 IV Push, ity of (PF)) 14:50: Q6HPRN, [place] injection 4 40 Starting Medi dimitry mg on [facility] 05/30/22 at 0850, Until Discontinu ed, Routine, Nausea and Vomiting (N/V) ondansetron 2023-0 Yes 4mg 4 mg, Slow Univers (ZOFRAN 1-22 IV Push, ity of (PF)) 14:50: Q6HPRN, [place] injection 4 40 Starting Medi dimitry mg on [place] Branch 05/30/22 at 0850, Until Discontinu ed, Routine, Nausea and Vomiting (N/V) ondansetron 2023-0 Yes 4mg 4 mg, Slow Univers (ZOFRAN 1-22 IV Push, ity of (PF)) 14:50: Q6HPRN, [place] injection 4 40 Starting Medi dimitry mg on [place] Branch 05/30/22 at 0850, Until Discontinu ed, Routine, Nausea and Vomiting (N/V) ondansetron 2023-0 Yes 4mg 4 mg, Slow Univers (ZOFRAN 1-22 IV Push, ity of (PF)) 14:50: Q6HPRN, [place] injection 4 40 Starting Medi dimitry mg on [place] Branch 05/30/22 at 0850, Until Discontinu ed, Routine, Nausea and Vomiting (N/V) ondansetron 2023-0 Yes 4mg 4 mg, Slow Univers (ZOFRAN 1-22 IV Push, ity of (PF)) 14:50: Q6HPRN, [place] injection 4 40 Starting Medi dimitry mg on [place] Branch 05/30/22 at 0850, Until Discontinu ed, Routine, Nausea and Vomiting (N/V) ondansetron 2023-0 2023- No 4mg 4 mg, Slow Univers (ZOFRAN 1-21 -21 IV Push, ity of (PF)) 20:00: 19:42 ONCE, 1 [place] injection 4 00 :00 dose, On Medi dimitry mg Sat Branch 05/29/22 at 1400, Routine ondansetron 2023-0 2023- No 4mg 4 mg, Slow Univers (ZOFRAN -21 -21 IV Push, ity of (PF)) 20:00: 19:42 ONCE, 1 [place] injection 4 00 :00 dose, On Medi dimitry mg Sat Branch 05/29/22 at 1400, Routine nicotine 2023-0 Yes 1{patch 1 Patch, Un rachel (NICODERM) 1-20 } Topical, ity o f 21 mg/24 hr 23:30: Administer [place] patch 1 00 over 24 Medical Patch Hours, Branch Q24H, First dose on Tue05/28/22 at 1730, Until Discontinu ed, Routine nicotine 2023-0 Yes 1{patch 1 Patch, Un rachel (NICODERM) 1-20 } Topical, ity o f 21 mg/24 hr 23:30: Administer [place] patch 1 00 over 24 Medical Patch Hours, Branch Q24H, First dose on Tue05/28/22 at 1730, Until Discontinu ed, Routine nicotine 2023-0 Yes 1{patch 1 Patch, Un rachel (NICODERM) 1-20 } Topical, ity o f 21 mg/24 hr 23:30: Administer [place] patch 1 00 over 24 Medical Patch Hours, Branch Q24H, First dose on Tue05/28/22 at 1730, Until Discontinu ed, Routine nicotine 2023-0 Yes 1{patch 1 Patch, Un rachel (NICODERM) 1-20 } Topical, ity o f 21 mg/24 hr 23:30: Administer [place] patch 1 00 over 24 Medical Patch Hours, Branch Q24H, First dose on Tue05/28/22 at 1730, Until Discontinu ed, Routine nicotine 2023-0 Yes 1{patch 1 Patch, Un rachel (NICODERM) 1-20 } Topical, ity o f 21 mg/24 hr 23:30: Administer [place] patch 1 00 over 24 Medical Patch Hours, Branch Q24H, First dose on Tue05/28/22 at 1730, Until Discontinu ed, Routine lidocaine 2022-0 2022- No .3mL 0.3 mL, Univ ers 1% (PF) 05-28 Infiltrati ity o f (XYLOCAINE) 16:45: 23:00 on, [place] injection 00 :00 DIALYSIS Medica l 0.3 mL ONCE - PT Branch ROOM, 1 dose, On Tue05/28/22 at 1045, Routine lidocaine 3-0 2022- No .3mL 0.3 mL, Univ ers 1% (PF) 05-28 Infiltrati ity o f (XYLOCAINE) 16:45: 23:00 on, [place] injection 00 :00 DIALYSIS Medica l 0.3 mL ONCE - PT Branch ROOM, 1 dose, On Tue05/28/22 at 1045, Routine perflutren 2023-0 2022- No [id number] 3mL 3 mL, IV Univers protein-A 05-28- Push, ity of microsphr 15:15: 15:15 ONCE, 1 [place] (OPTISON) 00 :00 dose, On Medica l injection 3 Fri Branch mL 05/28/22 at 0915, Routine perflutren 2022-2022- No [id number] 3mL 3 mL, IV Univers protein-A 05-28 Push, ity of microsphr 15:15: 15:15 ONCE, 1 [place] (OPTISON) 00 :00 dose, On Medica l injection 3 Fri Branch mL 05/28/22 at 0915, Routine mupirocin 2022-0 2022- No Nasal, Unive rs (BACTROBAN 1-28 05-25 Q12H, 10 ity of NASAL OINT) 14:00: 13:59 doses, [place] 2 % nasal 00 :00 First dose Medi dimitry ointment on Fri Branch 05/28/22 at 0800, Last dose on Tue06/01/22 at 1999, Routine mupirocin 2022-0 2022- No Nasal, Unive rs (BACTROBAN 1-20 -25 Q12H, 10 ity of NASAL OINT) 14:00: 13:59 doses, [place] 2 % nasal 00 :00 First dose Medi dimitry ointment on Fri Branch 05/28/22 at 0800, Last dose on Tue06/01/22 at 1999, Routine mupirocin 2022-0 202- No Nasal, Unive rs (BACTROBAN 1-20 -25 Q12H, 10 ity of NASAL OINT) 14:00: 13:59 doses, [place] 2 % nasal 00 :00 First dose Medi dimitry ointment on Fri Branch 05/28/22 at 0800, Last dose on Tue06/01/22 at 1999, Routine mupirocin 3-0 2023- No Nasal, Unive rs (BACTROBAN 1-20 -25 Q12H, 10 ity of NASAL OINT) 14:00: 02:00 doses, [place] 2 % nasal 00 :00 First dose Medi dimitry ointment on Tue Branch 05/28/22 at 0800, Last dose on Tue06/01/22 at 2000, Routine atorvastati 2022- No 10mg 10 mg, Uni vers n (LIPITOR) 05-28 Oral, QHS, i ty of tablet 10 03:00: 15:25 First dose [place] mg 00 :12 on [facility] 05/27/22 at Branch 2100, Until Discontinu ed atorvastati 2022- No 10mg 10 mg, Uni vers n (LIPITOR) 05-28 Oral, QHS, i ty of tablet 10 03:00: 15:25 First dose [place] mg 00 :12 on [facility] Medical 05/27/22 at Branch 2100, Until Discontinu ed epoetin 2022- No [id number] 10,000 Unive rs claudine-epbx 05-28 Units, ity of (RETACRIT) 01:00: 01:51 Slow IV [place] injection 00 :00 Push, Medical 10,000 DIALYSIS Branch Units ONCE - PT ROOM, 1 dose, On [facility] 05/27/22 at 1900, Routine
Facult y member approving Restricted medication : HENRIETTA AMBROSE epoetin [place] [id number] 10,000 Unive rs claudine-epbx 05-28 Units, ity of (RETACRIT) 01:00: 01:51 Slow IV [place] injection 00 :00 Push, Medical 10,000 DIALYSIS Branch Units ONCE - PT ROOM, 1 dose, On [facility] 05/27/22 at 1900, Routine
Facult y member approving Restricted medication : HENRIETTA AMBROSE pantoprazol No 80mg 80 mg, IV Univers e 05-27 Piggyback, ity of (PROTONIX) 22:15: 15:42 CONTINUOUS [place] 80 mg in 00 :40 , Starting Medic al NaCl 0.9% on [facility] Branch (NS) 100 mL 05/27/22 at IV 1615, Piggyback Until 05/30/22 at 0942, Administer over 10 Hours, 100 mL pantoprazol 2022- No 80mg 80 mg, IV Univers e 05-27 Piggyback, ity of (PROTONIX) 22:15: 15:42 CONTINUOUS [place] 80 mg in 00 :40 , Starting Medic al NaCl 0.9% on [place] Branch (NS) 100 mL 05/27/22 at IV 1615, Piggyback Until 05/30/22 at 0942, Administer over 10 Hours, 100 mL Sliding Yes [facility] ers Scale 1-19 us, TID ity of Insulin - 18:00: MEALS+HS, [place] Lispro 00 First dose Medical (HumaLOG) + on [place] Branch Fsbg 05/27/22 at Testing 1200, Until Discontinu ed, Routine Sliding Yes [facility] ers Scale 1-19 us, TID ity of Insulin - 18:00: MEALS+HS, [place] Lispro 00 First dose Medical (HumaLOG) + on [place] Branch Fsbg 05/27/22 at Testing 1200, Until Discontinu ed, Routine Sliding Yes [facility] ers Scale 1-19 us, TID ity of Insulin - 18:00: MEALS+HS, [place] Lispro 00 First dose Medical (HumaLOG) + on [place] Branch Fsbg 05/27/22 at Testing 1200, Until Discontinu ed, Routine pantoprazol 2022- No 8mg/h 8 mg/hr U nivers e 05-27 (50 ity of (PROTONIX) 18:00: 21:04 mL/hr), IV [place] 80 mg in 00 :21 Infusion, Medica l NaCl CONTINUOUS Branch 0.9%(NS) , Starting 500 mL IV on [place] infusion 05/27/22 at (CNR) 1200 pantoprazol 2022- No 8mg/h 8 mg/hr U nivers e 05-27 (50 ity of (PROTONIX) 18:00: 21:04 mL/hr), IV [place] 80 mg in 00 :21 Infusion, Medica l NaCl CONTINUOUS Branch 0.9%(NS) , Starting 500 mL IV on [place] infusion 05/27/22 at (CNR) 1200 NaCl 0.9% 2022- No 500mL at [address] [place] [address] ers (NS) bolus 05-27 mL/hr, 500 it y of infusion 15:30: 16:23 mL, IV [place] 500 mL 00 :40 Piggyback, Medical ONCE, 1 Branch dose, On [facility] 05/27/22 at 0930, STAT NaCl 0.9% 2023-0 2023- No 500mL at 999 Univ ers (NS) bolus 05-27 01-19 mL/hr, 500 it y of infusion 15:30: 16:23 mL, IV [place] 500 mL 00 :40 Piggyback, Medical ONCE, 1 Branch dose, On [facility] 05/27/22 at 0930, STAT calcitrioL 3-0 Yes .25ug 0.25 mcg, U nivers (ROCALTROL) 05-27 Oral, ity of capsule 15:00: DAILY, [place] 0.25 mcg 00 First dose Medic al on [facility] Branch 05/27/22 at 0900, Until Discontinu ed, Routine calcitrioL 2022-0 Yes .25ug 0.25 mcg, U nivers (ROCALTROL) 05-27 Oral, ity of capsule 15:00: DAILY, [place] 0.25 mcg 00 First dose Medic al on [facility] 05/27/22 at 0900, Until Discontinu ed, Routine calcitrioL 2022-0 Yes .25ug 0.25 mcg, U nivers (ROCALTROL) 05-27 Oral, ity of capsule 15:00: DAILY, [place] 0.25 mcg 00 First dose Medic al on [facility] 05/27/22 at 0900, Until Discontinu ed, Routine calcitrioL 2022-0 Yes .25ug 0.25 mcg, U nivers (ROCALTROL) 05-27 Oral, ity of capsule 15:00: DAILY, [place] 0.25 mcg 00 First dose Medic al on [facility] 05/27/22 at 0900, Until Discontinu ed, Routine calcitrioL 2022-0 Yes .25ug 0.25 mcg, U nivers (ROCALTROL) 05-27 Oral, ity of capsule 15:00: DAILY, [place] 0.25 mcg 00 First dose Medic al on [facility] 05/27/22 at 0900, Until Discontinu ed, Routine guaiFENesin 3-0 Yes 200mg 200 mg, Un rachel (FENESIN 05-27 Oral, ity of IR) tablet 14:35: Q4HPRN, [place] 200 mg 48 Starting Medical on [facility] 05/27/22 at 0835, Until Discontinu ed, Routine, Cough sennosides- 2023-0 Yes 1{tbl} 1 tablet, Univers docusate - Oral, ity of sodium 14:35: QDAILYPRN, [place] (SENOKOT-S) 48 Starting Medi dimitry 8.6-50 mg on [place] Branch per tablet 05/27/22 at 1 tablet 0835, Until Discontinu ed, Routine, Constipati on acetaminoph 3-0 Yes 650mg 650 mg, Un rachel en 05-27 Oral, ity of (TYLENOL) 14:35: Q6HPRN, [place] tablet 650 48 Starting Medic al mg on [place] Branch 05/27/22 at 0835, Until Discontinu ed, Routine, Pain (scale 1-3) guaiFENesin 3-0 Yes 200mg 200 mg, Un rachel (FENESIN 05-27 Oral, ity of IR) tablet 14:35: Q4HPRN, [place] 200 mg 48 Starting Medical on [place] Branch 05/27/22 at 0835, Until Discontinu ed, Routine, Cough sennosides- 3-0 Yes 1{tbl} 1 tablet, Univers docusate 05-27 Oral, ity of sodium 14:35: QDAILYPRN, [place] (SENOKOT-S) 48 Starting Medi dimitry 8.6-50 mg on [place] Branch per tablet 05/27/22 at 1 tablet 0835, Until Discontinu ed, Routine, Constipati on acetaminoph 3-0 Yes 650mg 650 mg, Un rachel en 05-27 Oral, ity of (TYLENOL) 14:35: Q6HPRN, [place] tablet 650 48 Starting Medic al mg on [place] Branch 05/27/22 at 0835, Until Discontinu ed, Routine, Pain (scale 1-3) guaiFENesin 2023-0 Yes 200mg 200 mg, Un rachel (FENESIN -19 Oral, ity of IR) tablet 14:35: Q4HPRN, [place] 200 mg 48 Starting Medical on [place] Branch 05/27/22 at 0835, Until Discontinu ed, Routine, Cough sennosides- 2023-0 Yes 1{tbl} 1 tablet, Univers docusate 05-27 Oral, ity of sodium 14:35: QDAILYPRN, [place] (SENOKOT-S) 48 Starting Medi dimitry 8.6-50 mg on [place] Branch per tablet 05/27/22 at 1 tablet 0835, Until Discontinu ed, Routine, Constipati on acetaminoph 2022-0 Yes 650mg 650 mg, Un rachel en 05-27 Oral, ity of (TYLENOL) 14:35: Q6HPRN, [place] tablet 650 48 Starting Medic al mg on [place] Branch 05/27/22 at 0835, Until Discontinu ed, Routine, Pain (scale 1-3) guaiFENesin 2022-0 Yes 200mg 200 mg, Un rachel (FENESIN 05-27 Oral, ity of IR) tablet 14:35: Q4HPRN, [place] 200 mg 48 Starting Medical on [place] [facility] 05/27/22 at 0835, Until Discontinu ed, Routine, Cough sennosides- 2022-0 Yes 1{tbl} 1 tablet, Univers docusate 05-27 Oral, ity of sodium 14:35: QDAILYPRN, [place] (SENOKOT-S) 48 Starting Medi dimitry 8.6-50 mg on [place] Branch per tablet 05/27/22 at 1 tablet 0835, Until Discontinu ed, Routine, Constipati on guaiFENesin 2022-0 Yes 200mg 200 mg, Un rachel (FENESIN 05-27 Oral, ity of IR) tablet 14:35: Q4HPRN, [place] 200 mg 48 Starting Medical on [place] [facility] 05/27/22 at 0835, Until Discontinu ed, Routine, Cough sennosides- 2022-0 Yes 1{tbl} 1 tablet, Univers docusate 05-27 Oral, ity of sodium 14:35: QDAILYPRN, [place] (SENOKOT-S) 48 Starting Medi dimitry 8.6-50 mg on [place] Branch per tablet 05/27/22 at 1 tablet 0835, Until Discontinu ed, Routine, Constipati on ondansetron 2022-0 2022- No 4mg 4 mg, Slow Univers (ZOFRAN 05-27- IV Push, ity of (PF)) 14:35: 19:10 Q6HPRN, [place] injection 4 48 :29 Starting Medi dimitry mg on [place] Branch 05/27/22 at 0835, Until 05/29/22 at 1310, Routine, Nausea and Vomiting (N/V) ondansetron 2022-0 2022- No 4mg 4 mg, Slow Univers (ZOFRAN 05-27 IV Push, ity of (PF)) 14:35: 19:10 Q6HPRN, [place] injection 4 48 :29 Starting Medi dimitry mg on [facility] Branch 05/27/22 at 0835, Until 05/29/22 at 1310, Routine, Nausea and Vomiting (N/V) FENTanyl PF 2022-0 2022- No 50ug 50 mcg, Un rachel (SUBLIMAZE 05-27 Slow IV ity o f (PF)) 09:00: 08:03 Push, [place] injection 00 :00 ONCE, 1 Medical 50 mcg dose, On Branch [facility] 05/27/22 at 0300, Routine FENTanyl PF 2022-0 2022- No 50ug 50 mcg, Un rachel (SUBLIMAZE 05-27 Slow IV ity o f (PF)) 09:00: 08:03 Push, [place] injection 00 :00 ONCE, 1 Medical 50 mcg dose, On Branch [facility] 05/27/22 at 0300, Routine ondansetron 2022-0 2022- No 4mg 4 mg, Slow Univers (ZOFRAN 05-27 IV Push, ity of (PF)) 08:15: 07:16 ONCE, 1 [place] injection 4 00 :00 dose, On Medi dimitry mg [facility] Branch 05/27/22 at 0215, LORI ondansetron 2022-0 2022- No 4mg 4 mg, Slow Univers (ZOFRAN 05-27 IV Push, ity of (PF)) 08:15: 07:16 ONCE, 1 [place] injection 4 00 :00 dose, On Medi dimitry mg [facility] 05/27/22 at 0215, LORI iopamidol 2022-0 2022- No [id number] 100mL 100 mL, Univers (ISOVUE 05-27 Intravenou ity o f 370-500 mL) 08:00: 08:00 s, ONCE, 1 [place] injection 00 :00 dose, On Medica l 100 mL [facility] 05/27/22 at 0200, Routine iopamidol 2022-2022- No [id number] 100mL 100 mL, Univers (ISOVUE 05-27 Intravenou ity o f 370-500 mL) 08:00: 08:00 s, ONCE, 1 [place] injection 00 :00 dose, On Medica l 100 mL [place] Branch 05/27/22 at 0200, Routine pantoprazol 2022- No 80mg 80 mg, IV Univers e 05-27 Push, ity of (PROTONIX) 07:30: 07:32 ONCE, 1 [place] 80 mg in 00 :00 dose, On Medical NaCl 0.9% [place] Branch (NS) 20 mL 05/27/22 at syringe 0130, Administer over 2 Minutes, 20 mL pantoprazol 2022- No 80mg 80 mg, IV Univers e 05-27 Push, ity of (PROTONIX) 07:30: 07:32 ONCE, 1 [place] 80 mg in 00 :00 dose, On Medical NaCl 0.9% [place] Branch (NS) 20 mL 05/27/22 at syringe 0130, Administer over 2 Minutes, 20 mL omega-3 2022-0 Yes Take by [facility] fatty 4-26 mouth. [facility] acids-fish 11:12: Medical oil 12 Center 300-1,000 mg Cap iron-multiv 2022-0 Yes 1{tbl} QD Take [address] itamins-min 4-26 tablet by Andi es erals 11:12: mouth Medical (THERAGRAN- 12 daily. Center ) 9 mg iron-400 mcg Tab tablet omega-3 2-0 Yes Take by [facility] fatty 4-26 mouth. [facility] acids-fish 11:12: Medical oil 12 Center 300-1,000 mg Cap iron-multiv 2022-0 Yes 1{tbl} QD Take [address] itamins-min 4-26 tablet by Andi es erals 11:12: mouth Medical (THERAGRAN- 12 daily. Center ) 9 mg iron-400 mcg Tab tablet omega-3 2022-0 Yes Take by [facility] fatty 4-26 mouth. [facility] acids-fish 11:12: Medical oil 12 Center 300-1,000 mg Cap iron-multiv 2022-0 Yes 1{tbl} QD Take 1 [facility] [...] 11:09: mouth Medical hr tablet 48 daily. [place] NIFEdipine 2021-0 Yes 90mg QD Take 90 [...] 11:09: nightly. Medical tablet 48 Center terazosin 2022-0 Yes 5mg Q.5D Take 5 mg [facility] [...] vilanter 11:09: inhaler. Medic al (TRELEGY 48 [place] ELLIPTA INHL) lovastatin 2-0 Yes 20mg QD Take [address] (MEVACOR) 4-26 by mouth [facility] 20 MG 11:09: nightly. Medical tablet 48 Center terazosin 2022-0 Yes 5mg Q.5D Take 5 mg [facility] [...] Medical hr tablet 48 daily. Center NIFEdipine 2-0 Yes 90mg QD Take 90 [...] Medical hr tablet 48 daily. Center NIFEdipine 2-0 Yes 90mg QD Take [address] (ADALAT CC) 4-26 by mouth [facility] 90 MG 24 hr 11:09: daily. Medi dimitry tablet 48 Center fluticasone 2021-0 Yes Inhale by [facility] /umeclidin/ 4-26 mouth via Andi es vilanter 11:09: inhaler. Medic al (TRELEGY 48 [place] ELLIPTA INHL) lovastatin 0 Yes 20mg QD Take [address] (MEVACOR) 4-26 by mouth [facility] 20 MG 11:09: nightly. Medical tablet 48 Center terazosin 0 Yes 5mg Q.5D Take [address] [facility] (HYTRIN) 5 4-26 by mouth 2 Andi es MG capsule 11:09: (two) Medica l 48 times Center daily . hydrALAZINE 0 Yes 50mg Q.5D Take [address] [facility] (APRESOLINE 4-26 by mouth 2 Ayleen kes ) 50 MG 11:09: (two) Medical tablet 48 times Center daily . sevelamer 0 Yes 800mg Take [address] [facility] (RENVELA) 4-26 mg by [facility] 800 mg 11:09: mouth 3 Medical tablet 48 (three) Center times daily with meals. metoprolol Yes 100mg QD Take [address] (TOPROL-XL) 4-26 mg by [facility] 100 MG 24 11:09: mouth Medical hr tablet 48 daily. [place] NIFEdipine 0 Yes 90mg QD Take [address] (ADALAT CC) 4-26 by mouth [facility] 90 MG 24 hr 11:09: daily. Medi dimitry tablet 48 Center fluticasone 0 Yes Inhale by [facility] /umeclidin/ 4-26 mouth via Andi es vilanter 11:09: inhaler. Medic al (TRELEGY 48 [facility] ELLIPTA INHL) pantoprazol 2021-0 2021- No 40mg Q.5D Take [address] [facility] 4-23 05-23 tablet (40 [facility] (PROTONIX) 00:00: 23:59 mg total) M edical 40 MG 00 :00 by mouth 2 Center tablet (two) times daily for 30 days. pantoprazol 2021-0 2021- No 40mg Q.5D Take [address] [facility] 4-23 05-23 tablet (40 [facility] (PROTONIX) 00:00: 23:59 mg total) M edical 40 MG 00 :00 by mouth 2 Center tablet (two) times daily for 30 days. pantoprazol 2022-0 202- No 40mg Q.5D Take [address] [facility] 08-29- tablet (40 [facility] (PROTONIX) 00:00: 23:59 mg total) M edical 40 MG 00 :00 by mouth 2 Center tablet (two) times daily for 30 days. pantoprazol 2021-0 2021- No 40mg Q.5D Take [address] [facility] [...] Rang e, Dosing and Testing: &nbs p;FOR [facility], [facility], AND [facility] ONLY - aPTT < 35: & [...] times Medical daily. Branch methocarbam 2021-0 Yes [id number] 500mg Take 1 [facility]-05 tablet by [facility] of (ROBAXIN) 00:00: mouth 3 [place] 500 mg 00 (three) Medical tablet times Branch daily as needed for Pain (scale 4-6). methocarbam 2-0 Yes [id number] 500mg Take 1 [facility] 2-05 tablet by [facility] of (ROBAXIN) 00:00: mouth 3 [place] 500 mg 00 (three) Medical tablet times Branch daily as needed for Pain (scale 4-6). methocarbam 2-0 Yes [id number] 500mg Take 1 [facility] 2-05 tablet by [facility] of (ROBAXIN) 00:00: mouth 3 [place] 500 mg 00 (three) Medical tablet times Branch daily as needed for Pain (scale 4-6). methocarbam 2021-0 Yes [id number] 500mg Take 1 [facility] 2-05 tablet by [facility] of (ROBAXIN) 00:00: mouth 3 [place] 500 mg 00 (three) Medical tablet times Branch daily as needed for Pain (scale 4-6). methocarbam 2021-0 Yes [id number] 500mg Take 1 [facility] oL 2-05 tablet by [facility] of (ROBAXIN) 00:00: mouth 3 [place] 500 mg 00 (three) Medical tablet times Branch daily as needed for Pain (scale 4-6). methocarbam 2021-0 Yes [id number] 500mg Take 1 [facility] oL 2-05 tablet by [facility] of (ROBAXIN) 00:00: mouth 3 [place] 500 mg 00 (three) Medical tablet times Branch daily as needed for Pain (scale 4-6). methocarbam 2-0 Yes [id number] 500mg Take 1 [facility] oL 2-05 tablet by [facility] of (ROBAXIN) 00:00: mouth 3 [place] 500 mg 00 (three) Medical tablet times Branch daily as needed for Pain (scale 4-6). methocarbam 2022-0 Yes [id number] 500mg Take 1 [facility] oL 2-05 tablet by [facility] of (ROBAXIN) 00:00: mouth 3 [place] 500 mg 00 (three) Medical tablet times Branch daily as needed for Pain (scale 4-6). methocarbam 2022-0 Yes [id number] 500mg Take 1 [facility] oL 2-05 tablet by [facility] of (ROBAXIN) 00:00: mouth 3 [place] 500 mg 00 (three) Medical tablet times Branch daily as needed for Pain (scale 4-6). methocarbam 2-0 Yes [id number] 500mg Take 1 [facility] oL 2-05 tablet by [facility] of (ROBAXIN) 00:00: mouth 3 [place] 500 mg 00 (three) Medical tablet times Branch daily as needed for Pain (scale 4-6). methocarbam 2-0 Yes [id number] 500mg Take 1 [facility] oL 2-05 tablet by [facility] of (ROBAXIN) 00:00: mouth 3 [place] 500 mg 00 (three) Medical tablet times Branch daily as needed for Pain (scale 4-6). methocarbam 2-0 Yes [id number] 500mg Take 1 [facility] oL 2-05 tablet by [facility] of (ROBAXIN) 00:00: mouth 3 [place] 500 mg 00 (three) Medical tablet times Branch daily as needed for Pain (scale 4-6). methocarbam 2021-0 Yes [id number] 500mg Take 1 [facility] oL 2-05 tablet by [facility] of (ROBAXIN) 00:00: mouth 3 [place] 500 mg 00 (three) Medical tablet times Branch daily as needed for Pain (scale 4-6). methocarbam 2-0 Yes [id number] 500mg Take 1 [facility] oL 2-05 tablet by [facility] of (ROBAXIN) 00:00: mouth 3 [place] 500 mg 00 (three) Medical tablet times Branch daily as needed for Pain (scale 4-6). methocarbam 2-0 Yes [id number] 500mg Take 1 [facility] oL 2-05 tablet by [facility] of (ROBAXIN) 00:00: mouth 3 [place] 500 mg 00 (three) Medical tablet times Branch daily as needed for Pain (scale 4-6). methocarbam 2-0 2023- No [id number] 500mg Take 1 [facility] oL 2-05 05-26 tablet by [facility] of (ROBAXIN) 00:00: 00:00 mouth 3 [place] 500 mg 00 :00 (three) Medical tablet times Branch daily as needed for Pain (scale 4-6). methocarbam 2022-0 2023- No [id number] 500mg Take 1 [facility] oL 2-05 05-26 tablet by [facility] of (ROBAXIN) 00:00: 00:00 mouth 3 [place] 500 mg 00 :00 (three) Medical tablet times Branch daily as needed for Pain (scale 4-6). ELIQUIS 2021- No TAKE 1/[address] [facility] tablet 09-09 TABLET(2.5 [facility] 00:[facility]: 00:00 MG) BY Medical 00 :00 [facility]OUTH [facility] TWICE DAILY ELIQUIS 2021- No TAKE 1/[address] [facility] tablet 09-09 TABLET(2.5 [facility] 00:00: 00:00 MG) BY Medical 00 :00 MOUTH [facility] TWICE DAILY ELIQUIS 2021- No TAKE 1/[address] [facility] tablet 09-09 TABLET(2.5 [facility] 00:00: 00:00 MG) BY Medical 00 :00 MOUTH [facility] TWICE DAILY ELIQUIS 2021- No TAKE 1/[address] [facility] tablet 09-09 TABLET(2.5 [facility] es 00:00: 00:00 MG) BY Medical 00 :00 MOUTH [facility] TWICE DAILY traMADol 2016-05 Yes [...] Daily Amount: 200 mg terazosin 2015-05 Yes [id number] 4mg Take 2 [facility] (HYTRIN) 2 0-05 capsules [facility] o f mg capsule 00:00: by mouth [place] 00 at Medical bedtime. [place] terazosin 2015-05 Yes [id number] 4mg Take 2 [facility] (HYTRIN) 2 0-05 capsules it[facility] o f mg capsule 00:00: by mouth [place] 00 at Medical bedtime. [place] terazosin 2015-05 Yes [id number] 4mg Take 2 [facility] (HYTRIN) 2 0-05 capsules [facility] o f mg capsule 00:00: by mouth [place] 00 at Medical bedtime. [place] terazosin 2015-05 Yes [id number] 4mg Take 2 [facility] (HYTRIN) 2 0-05 capsules [facility] o f mg capsule 00:00: by mouth [place] 00 at Medical bedtime. [place] terazosin 2015-05 Yes [id number] 4mg Take 2 [facility] (HYTRIN) 2 0-05 capsules [facility] o f mg capsule 00:00: by mouth [place] 00 at Medical bedtime. [place] terazosin 2015-05 Yes [id number] 4mg Take 2 [facility] (HYTRIN) 2 0-05 capsules it[facility] o f mg capsule 00:00: by mouth [place] 00 at Medical bedtime. [place] terazosin 2015-05 Yes [id number] 4mg Take 2 [facility] (HYTRIN) 2 0-05 capsules [facility] o f mg capsule 00:00: by mouth [place] 00 at Medical bedtime. [place] terazosin 2015-05 Yes [id number] 4mg Take 2 [facility] (HYTRIN) 2 0-05 capsules [facility] o f mg capsule 00:00: by mouth [place] 00 at Medical bedtime. [facility] terazosin 2015-05 Yes [id number] 4mg Take 2 [facility] (HYTRIN) 2 0-05 capsules it[facility] o f mg capsule 00:00: by mouth [place] 00 at Medical bedtime. [place] terazosin 2015-05 Yes [id number] 4mg Take 2 [facility] (HYTRIN) 2 0-05 capsules it[facility] o f mg capsule 00:00: by mouth [place] 00 at Medical bedtime. [place] terazosin 2015-05 Yes [id number] 4mg Take 2 [facility] (HYTRIN) 2 0-05 capsules it[facility] o f mg capsule 00:00: by mouth [place] 00 at Medical bedtime. [place] terazosin 2015-05 Yes [id number] 4mg Take 2 [facility] (HYTRIN) 2 0-05 capsules [facility] o f mg capsule 00:00: by mouth [place] 00 at Medical bedtime. [place] terazosin 2015-05 Yes [id number] 4mg Take 2 [facility] (HYTRIN) 2 0-05 capsules [facility] o f mg capsule 00:00: by mouth [place] 00 at Medical bedtime. [place] terazosin 2015-05 Yes [id number] 4mg Take 2 [facility] (HYTRIN) 2 0-05 capsules it[facility] o f mg capsule 00:00: by mouth [place] 00 at Medical bedtime. [place] terazosin 2015-05 Yes [id number] 4mg Take 2 [facility] (HYTRIN) 2 0-05 capsules [facility] o f mg capsule 00:00: by mouth [place] 00 at Medical bedtime. [place] terazosin 2015-05- No [id number] 4mg Take 2 [facility] (HYTRIN) 2 0-05 05-26 capsules [facility] of mg capsule 00:00: 00:00 by mouth [place] 00 :00 at Medical bedtime. [place] terazosin 2015-05- No [id number] 4mg Take 2 [facility] (HYTRIN) 2 0-05 05-26 capsules [facility] of mg capsule 00:00: 00:00 by mouth [place] 00 :00 at Medical bedtime. [place] metoprolol Yes [id number] 25mg Take 25 mg [facility] succinate 01-13 by mouth 2 [facility] XL (TOPROL 00:00: (two) [place] XL) 25 mg 00 times Medical 24 hr daily. [place] tablet lisinopril Yes [id number] 40mg Take 40 mg [facility] (PRINIVIL,Z 9-07 by mouth 2 [facility] y of ESTRIL) 40 00:00: (two) [place] mg tablet 00 times Medical daily. Branch metoprolol 0 Yes [id number] 25mg Take 25 mg [facility] succinate 9-07 by mouth 2 [facility] of XL (TOPROL 00:00: (two) [place] XL) 25 mg 00 times Medical 24 hr daily. Branch tablet lisinopril 0 Yes [id number] 40mg Take 40 mg [facility] (PRINIVIL,Z 9-07 by mouth 2 [facility] y of ESTRIL) 40 00:00: (two) [place] mg tablet 00 times Medical daily. Branch metoprolol Yes [id number] 25mg Take 25 mg [facility] succinate 9-07 by mouth 2 [facility] of XL (TOPROL 00:00: (two) [place] XL) 25 mg 00 times Medical 24 hr daily. Branch tablet lisinopril Yes [id number] 40mg Take 40 mg [facility] (PRINIVIL,Z 9-07 by mouth 2 it y of ESTRIL) 40 00:00: (two) [place] mg tablet 00 times Medical daily. Branch metoprolol Yes [id number] 25mg Take 25 mg [facility] succinate 01-13 by mouth 2 [facility] of XL (TOPROL 00:00: (two) [place] XL) 25 mg 00 times Medical 24 hr daily. Branch tablet lisinopril Yes [id number] 40mg Take 40 mg [facility] (PRINIVIL,Z 9-07 by mouth 2 it y of ESTRIL) 40 00:00: (two) [place] mg tablet 00 times Medical daily. Branch metoprolol 0 Yes [id number] 25mg Take 25 mg [facility] succinate -07 by mouth 2 [facility] of XL (TOPROL 00:00: (two) [place] XL) 25 mg 00 times Medical 24 hr daily. Branch tablet lisinopril 0 Yes [id number] 40mg Take 40 mg [facility] (PRINIVIL,Z 9-07 by mouth 2 it y of ESTRIL) 40 00:00: (two) [place] mg tablet 00 times Medical daily. Branch metoprolol Yes [id number] 25mg Take 1 [facility] succinate 01-13 tablet by ity o f XL (TOPROL 00:00: mouth in [place] XL) 25 mg 00 the Medical 24 hr morning Branch tablet and 1 tablet in the evening. metoprolol 2015- Yes [id number] 25mg Take 1 [facility] succinate 9-07 tablet by ity o f XL (TOPROL 00:00: mouth in [place] XL) 25 mg 00 the Medical 24 hr morning Branch tablet and 1 tablet in the evening. metoprolol Yes [id number] 25mg Take 1 [facility] succinate 9-07 tablet by it[facility] o f XL (TOPROL 00:00: mouth in [place] XL) 25 mg 00 the Medical 24 hr morning Branch tablet and 1 tablet in the evening. hydralAZINE Yes [id number] 50mg Take 50 mg [facility] (APRESOLINE 01-13 by mouth 4 it y of ) 25 mg 00:00: (four) [place] tablet 00 times Medical daily. Branch metoprolol Yes [id number] 25mg Take 25 mg [facility] succinate 01-13 by mouth 2 [facility] of XL (TOPROL 00:00: (two) [place] XL) 25 mg 00 times Medical 24 hr daily. Branch tablet metoprolol Yes [id number] 25mg Take 1 [facility] succinate 9-07 tablet by ity o f XL (TOPROL 00:00: mouth in [place] XL) 25 mg 00 the Medical 24 hr morning Branch tablet and 1 tablet in the evening. lisinopril Yes [id number] 40mg Take 40 mg [facility] (PRINIVIL,Z 01-13 by mouth 2 it y of ESTRIL) 40 00:00: (two) [place] mg tablet 00 times Medical daily. Branch metoprolol Yes [id number] 25mg Take 1 [facility] succinate 9-07 tablet by ity o f XL (TOPROL 00:00: mouth in [place] XL) 25 mg 00 the Medical 24 hr morning Branch tablet and 1 tablet in the evening. metoprolol Yes [id number] 25mg Take 1 [facility] succinate 9-07 tablet by ity o f XL (TOPROL 00:00: mouth in [place] XL) 25 mg 00 the Medical 24 hr morning Branch tablet and 1 tablet in the evening. metoprolol Yes [id number] 25mg Take 1 [facility] succinate 9-07 tablet by ity o f XL (TOPROL 00:00: mouth in [place] XL) 25 mg 00 the Medical 24 hr morning Branch tablet and 1 tablet in the evening. hydralAZINE 2015-0 Yes [id number] 50mg Take 50 mg [facility] (APRESOLINE 01-13 by mouth 4 it y of ) 25 mg 00:00: (four) [place] tablet 00 times Medical daily. Branch metoprolol 0 Yes [id number] 25mg Take 1 [facility] succinate 9-07 tablet by ity o f XL (TOPROL 00:00: mouth in [place] XL) 25 mg 00 the Medical 24 hr morning Branch tablet and 1 tablet in the evening. metoprolol 0 Yes [id number] 25mg Take 25 mg [facility] succinate 01-13 by mouth 2 [facility] of XL (TOPROL 00:00: (two) [place] XL) 25 mg 00 times Medical 24 hr daily. Branch tablet lisinopril Yes [id number] 40mg Take 40 mg [facility] (PRINIVIL,Z 01-13 by mouth 2 it y of ESTRIL) 40 00:00: (two) [place] mg tablet 00 times Medical daily. Branch metoprolol Yes [id number] 25mg Take 1 [facility] succinate 9-07 tablet by ity o f XL (TOPROL 00:00: mouth in [place] XL) 25 mg 00 the Medical 24 hr morning Branch tablet and 1 tablet in the evening. metoprolol 0 Yes [id number] 25mg Take 1 [facility] succinate 9-07 tablet by ity o f XL (TOPROL 00:00: mouth in [place] XL) 25 mg 00 the Medical 24 hr morning Branch tablet and 1 tablet in the evening. metoprolol 2015-0 Yes [id number] 25mg Take 1 [facility] succinate 9-07 tablet by ity o f XL (TOPROL 00:00: mouth in [place] XL) 25 mg 00 the Medical 24 hr morning Branch tablet and 1 tablet in the evening. metoprolol 0 Yes [id number] 25mg Take 1 [facility] succinate 9-07 tablet by ity o f XL (TOPROL 00:00: mouth in [place] XL) 25 mg 00 the Medical 24 hr morning Branch tablet and 1 tablet in the evening. metoprolol 0 Yes [id number] 25mg Take 1 [facility] succinate 9-07 tablet by ity o f XL (TOPROL 00:00: mouth in [place] XL) 25 mg 00 the Medical 24 hr morning Branch tablet and 1 tablet in the evening. metoprolol 2015-0 Yes [id number] 25mg Take 1 [facility] succinate 9-07 tablet by ity o f XL (TOPROL 00:00: mouth in [place] XL) 25 mg 00 the Medical 24 hr morning Branch tablet and 1 tablet in the evening. metoprolol 0 Yes [id number] 25mg Take 1 [facility] succinate 9-07 tablet by ity o f XL (TOPROL 00:00: mouth in [place] XL) 25 mg 00 the Medical 24 hr morning Branch tablet and 1 tablet in the evening. metoprolol Yes [id number] 25mg Take 1 [facility] succinate 9-07 tablet by ity o f XL (TOPROL 00:00: mouth in [place] XL) 25 mg 00 the Medical 24 hr morning Branch tablet and 1 tablet in the evening. metoprolol Yes [id number] 25mg Take 1 [facility] succinate 9-07 tablet by ity o f XL (TOPROL 00:00: mouth in [place] XL) 25 mg 00 the Medical 24 hr morning Branch tablet and 1 tablet in the evening. metoprolol Yes [id number] 25mg Take 1 [facility] succinate 9-07 tablet by ity o f XL (TOPROL 00:00: mouth in [place] XL) 25 mg 00 the Medical 24 hr morning Branch tablet and 1 tablet in the evening. hydralAZINE Yes [id number] 50mg Take 50 mg [facility] (APRESOLINE 01-13 by mouth 4 it y of ) 25 mg 00:00: (four) [place] tablet 00 times Medical daily. Branch metoprolol Yes [id number] 25mg Take 1 [facility] succinate 9-07 tablet by ity o f XL (TOPROL 00:00: mouth in [place] XL) 25 mg 00 the Medical 24 hr morning Branch tablet and 1 tablet in the evening. metoprolol Yes [id number] 25mg Take 25 mg [facility] succinate 01-13 by mouth 2 [facility] of XL (TOPROL 00:00: (two) [place] XL) 25 mg 00 times Medical 24 hr daily. Branch tablet lisinopril Yes [id number] 40mg Take 40 mg [facility] (PRINIVIL,Z - by mouth 2 it y of ESTRIL) 40 00:00: (two) [place] mg tablet 00 times Medical daily. Branch metoprolol 2015-0 Yes [id number] 25mg Take 1 [facility] succinate 9-07 tablet by ity o f XL (TOPROL 00:00: mouth in [place] XL) 25 mg 00 the Medical 24 hr morning Branch tablet and 1 tablet in the evening. metoprolol 0 Yes [id number] 25mg Take 1 [facility] succinate 9-07 tablet by ity o f XL (TOPROL 00:00: mouth in [place] XL) 25 mg 00 the Medical 24 hr morning Branch tablet and 1 tablet in the evening. metoprolol Yes [id number] 25mg Take 1 [facility] succinate 9-07 tablet by ity o f XL (TOPROL 00:00: mouth in [place] XL) 25 mg 00 the Medical 24 hr morning Branch tablet and 1 tablet in the evening. metoprolol Yes [id number] 25mg Take 1 [facility] succinate 9-07 tablet by ity o f XL (TOPROL 00:00: mouth in [place] XL) 25 mg 00 the Medical 24 hr morning Branch tablet and 1 tablet in the evening. metoprolol Yes [id number] 25mg Take 1 [facility] succinate 9-07 tablet by it[facility] o f XL (TOPROL 00:00: mouth in [place] XL) 25 mg 00 the Medical 24 hr morning Branch tablet and 1 tablet in the evening. metoprolol Yes [id number] 25mg Take 1 [facility] succinate 9-07 tablet by ity o f XL (TOPROL 00:00: mouth in [place] XL) 25 mg 00 the Medical 24 hr morning Branch tablet and 1 tablet in the evening. metoprolol Yes [id number] 25mg Take 1 [facility] succinate 9-07 tablet by ity o f XL (TOPROL 00:00: mouth in [place] XL) 25 mg 00 the Medical 24 hr morning Branch tablet and 1 tablet in the evening. metoprolol 2015- Yes [id number] 25mg Take 0.5 [facility] succinate 9-07 tablets by [facility] of XL 50 mg 24 00:00: mouth in [place] hr tablet 00 the Medical morning. Branch metoprolol Yes [id number] 25mg Take 0.5 [facility] succinate 9-07 tablets by [facility] of XL 50 mg 24 00:00: mouth in [place] hr tablet 00 the Medical morning. Branch metoprolol 2015-0 Yes [id number] 25mg Take 0.5 [facility] succinate 9-07 tablets by [facility] of XL 50 mg 24 00:00: mouth in [place] hr tablet 00 the Medical morning. Branch metoprolol 2015-0 Yes [id number] 25mg Take 0.5 [facility] succinate 9-07 tablets by [facility] of XL 50 mg 24 00:00: mouth in [place] hr tablet 00 the Medical morning. Branch metoprolol 2015-0 Yes [id number] 25mg Take 0.5 [facility] succinate 9-07 tablets by [facility] of XL 50 mg 24 00:00: mouth in [place] hr tablet 00 the Medical morning. Branch metoprolol 2015-0 Yes [id number] 25mg Take 0.5 [facility] succinate 9-07 tablets by [facility] of XL 50 mg 24 00:00: mouth in [place] hr tablet 00 the Medical morning. Branch metoprolol 2015-0 Yes [id number] 25mg Take 0.5 [facility] succinate 9-07 tablets by [facility] of XL 50 mg 24 00:00: mouth in [place] hr tablet 00 the Medical morning. Branch metoprolol 0 Yes [id number] 25mg Take 0.5 [facility] succinate 9-07 tablets by [facility] of XL 50 mg 24 00:00: mouth in [place] hr tablet 00 the Medical morning. Branch metoprolol 0 Yes [id number] 25mg Take 0.5 [facility] succinate 9-07 tablets by [facility] of XL 50 mg 24 00:00: mouth in [place] hr tablet 00 the Medical morning. Branch metoprolol 2015-0 Yes [id number] 25mg Take 0.5 [facility] succinate 9-07 tablets by [facility] of XL 50 mg 24 00:00: mouth in [place] hr tablet 00 the Medical morning. Branch metoprolol 0 Yes [id number] 25mg Take 0.5 [facility] succinate 9-07 tablets by [facility] of XL 50 mg 24 00:00: mouth in [place] hr tablet 00 the Medical morning. Branch metoprolol 2015-0 Yes [id number] 25mg Take 0.5 [facility] succinate 9-07 tablets by [facility] of XL 50 mg 24 00:00: mouth in [place] hr tablet 00 the Medical morning. Branch metoprolol 2015-0 Yes [id number] 25mg Take 0.5 [facility] succinate 9-07 tablets by [facility] of XL 50 mg 24 00:00: mouth in [place] hr tablet 00 the Medical morning. Branch metoprolol 2015-0 Yes [id number] 25mg Take 0.5 [facility] succinate 9-07 tablets by [facility] of XL 50 mg 24 00:00: mouth in [place] hr tablet 00 the Medical morning. Branch metoprolol 2015-0 Yes [id number] 25mg Take 0.5 [facility] succinate 9-07 tablets by [facility] of XL 50 mg 24 00:00: mouth in [place] hr tablet 00 the Medical morning. Branch metoprolol 2015-0 Yes [id number] 25mg Take 0.5 [facility] succinate 9-07 tablets by [facility] of XL 50 mg 24 00:00: mouth in [place] hr tablet 00 the Medical morning. Branch metoprolol 0 Yes [id number] 25mg Take 0.5 [facility] succinate 9-07 tablets by [facility] of XL 50 mg 24 00:00: mouth in [place] hr tablet 00 the Medical morning. Branch metoprolol 2015-0 Yes [id number] 25mg Take 0.5 [facility] succinate 9-07 tablets by [facility] of XL 50 mg 24 00:00: mouth in [place] hr tablet 00 the Medical morning. Branch metoprolol 0 Yes [id number] 25mg Take 0.5 [facility] succinate 9-07 tablets by [facility] of XL 50 mg 24 00:00: mouth in [place] hr tablet 00 the Medical morning. Branch metoprolol 0 Yes [id number] 25mg Take 0.5 [facility] succinate 9-07 tablets by [facility] of XL 50 mg 24 00:00: mouth in [place] hr tablet 00 the Medical morning. Branch metoprolol 0 Yes [id number] 25mg Take 0.5 [facility] succinate 9-07 tablets by [facility] of XL 50 mg 24 00:00: mouth in [place] hr tablet 00 the Medical morning. Branch metoprolol 2015-0 Yes [id number] 25mg Take 0.5 [facility] succinate 9-07 tablets by [facility] of XL 50 mg 24 00:00: mouth in [place] hr tablet 00 the Medical morning. Branch hydralAZINE 2015-0 Yes [id number] 50mg Take 50 mg [facility] (APRESOLINE 9-07 by mouth 4 it y of ) 25 mg 00:00: (four) [place] tablet 00 times Medical daily. Branch hydralAZINE 2015-0 Yes [id number] 50mg Take 50 mg [facility] (APRESOLINE 9-07 by mouth 4 it y of ) 25 mg 00:00: (four) [place] tablet 00 times Medical daily. Branch metoprolol 2015-0 Yes [id number] 25mg Take 25 mg [facility] succinate 9-07 by mouth 2 ity of XL (TOPROL 00:00: (two) [place] XL) 25 mg 00 times Medical 24 hr daily. Branch tablet lisinopril 0 Yes [id number] 40mg Take 40 mg [facility] (PRINIVIL,Z 9-07 by mouth 2 it y of ESTRIL) 40 00:00: (two) [place] mg tablet 00 times Medical daily. Branch metoprolol 2015-0 Yes [id number] 25mg Take 25 mg [facility] succinate 9-07 by mouth 2 ity of XL (TOPROL 00:00: (two) [place] XL) 25 mg 00 times Medical 24 hr daily. Branch tablet lisinopril Yes [id number] 40mg Take 40 mg [facility] (PRINIVIL,Z 9-07 by mouth 2 it y of ESTRIL) 40 00:00: (two) [place] mg tablet 00 times Medical daily. Branch hydralAZINE Yes [id number] 50mg Take 50 mg [facility] (APRESOLINE 9-07 by mouth 4 it y of ) 25 mg 00:00: (four) [place] tablet 00 times Medical daily. Branch metoprolol 0 Yes [id number] 25mg Take 25 mg [facility] succinate 9-07 by mouth 2 ity of XL (TOPROL 00:00: (two) [place] XL) 25 mg 00 times Medical 24 hr daily. Branch tablet lisinopril 2015-0 Yes [id number] 40mg Take 40 mg [facility] (PRINIVIL,Z 9-07 by mouth 2 it y of ESTRIL) 40 00:00: (two) [place] mg tablet 00 times Medical daily. Branch hydralAZINE 2015-0 Yes [id number] 50mg Take 50 mg [facility] (APRESOLINE 9-07 by mouth 4 it y of ) 25 mg 00:00: (four) [place] tablet 00 times Medical daily. Branch metoprolol 0 Yes [id number] 25mg Take 25 mg [facility] succinate 9-07 by mouth 2 ity of XL (TOPROL 00:00: (two) [place] XL) 25 mg 00 times Medical 24 hr daily. Branch tablet lisinopril 2016-0 Yes [id number] 40mg Take 40 mg [facility] (PRINIVIL,Z -07 by mouth 2 it y of ESTRIL) 40 00:00: (two) [place] mg tablet 00 times Medical daily. Branch hydralAZINE 2015-0 Yes [id number] 50mg Take 50 mg [facility] (APRESOLINE 07 by mouth 4 it y of ) 25 mg 00:00: (four) [place] tablet 00 times Medical daily. Branch metoprolol 2015-0 Yes [id number] 25mg Take 25 mg [facility] succinate 9-07 by mouth 2 ity of XL (TOPROL 00:00: (two) [place] XL) 25 mg 00 times Medical 24 hr daily. Branch tablet lisinopril 0 Yes [id number] 40mg Take 40 mg [facility] (PRINIVIL,Z - by mouth 2 it y of ESTRIL) 40 00:00: (two) [place] mg tablet 00 times Medical daily. Branch hydralAZINE 2015- Yes [id number] 50mg Take 50 mg [facility] (APRESOLINE 07 by mouth 4 it y of ) 25 mg 00:00: (four) [place] tablet 00 times Medical daily. Branch metoprolol 0 Yes [id number] 25mg Take 25 mg [facility] succinate 907 by mouth 2 ity of XL (TOPROL 00:00: (two) [place] XL) 25 mg 00 times Medical 24 hr daily. Branch tablet metoprolol 0 Yes [id number] 25mg Take 25 mg [facility] succinate 9-07 by mouth 2 ity of XL (TOPROL 00:00: (two) [place] XL) 25 mg 00 times Medical 24 hr daily. Branch tablet lisinopril 0 Yes [id number] 40mg Take 40 mg [facility] (PRINIVIL,Z - by mouth 2 it y of ESTRIL) 40 00:00: (two) [place] mg tablet 00 times Medical daily. Branch lisinopril 2015-0 Yes [id number] 40mg Take 40 mg [facility] (PRINIVIL,Z 9-07 by mouth 2 it y of ESTRIL) 40 00:00: (two) [place] mg tablet 00 times Medical daily. Branch lisinopril 2015-0 2023- No [id number] 40mg Take 1 [facility] (PRINIVIL,Z - 05-26 tablet by it y of ESTRIL) 40 00:00: 00:00 mouth in [place] mg tablet 00 :00 the Medical morning Branch and 1 tablet in the evening. lisinopril 2022- No [id number] 40mg Take 1 [facility] (PRINIVIL,Z 01-13 tablet by it y of ESTRIL) 40 00:00: 00:00 mouth in [place] mg tablet 00 :00 the Medical morning Branch and 1 tablet in the evening. hydralAZINE 2022- No [id number] 50mg Take 50 mg [facility] (APRESOLINE 01-13 by mouth 4 i ty of ) 25 mg 00:00: 00:00 (four) [place] tablet 00 :00 times Medical daily. Branch NIFEdipine Yes [id number] 30mg Take 1 [facility] ER 8-19 tablet by ity of (AFEDITAB 00:00: mouth [place] CR) 30 mg 00 daily. Medical SR tablet Branch lovastatin Yes [id number] 20mg Take 1 [facility] (ALTOPREV) 8-19 tablet by ity of 20 mg 24 hr 00:00: mouth at [place] tablet 00 bedtime. Medical Branch NIFEdipine Yes [id number] 30mg Take 1 [facility] ER 8-19 tablet by ity of (AFEDITAB 00:00: mouth [place] CR) 30 mg 00 daily. Medical SR tablet Branch lovastatin Yes [id number] 20mg Take 1 [facility] (ALTOPREV) 8-19 tablet by ity of 20 mg 24 hr 00:00: mouth at [place] tablet 00 bedtime. Medical Branch NIFEdipine Yes [id number] 30mg Take 1 [facility] ER 8-19 tablet by ity of (AFEDITAB 00:00: mouth [place] CR) 30 mg 00 daily. Medical SR tablet Branch lovastatin Yes [id number] 20mg Take 1 [facility] (ALTOPREV) 8-19 tablet by ity of 20 mg 24 hr 00:00: mouth at [place] tablet 00 bedtime. Medical Branch NIFEdipine Yes [id number] 30mg Take 1 [facility] ER 8-19 tablet by ity of (AFEDITAB 00:00: mouth [place] CR) 30 mg 00 daily. Medical SR tablet Branch lovastatin Yes [id number] 20mg Take 1 [facility] (ALTOPREV) 8-19 tablet by ity of 20 mg 24 hr 00:00: mouth at [place] tablet 00 bedtime. Medical Branch NIFEdipine 0 Yes [id number] 30mg Take 1 [facility] ER 8-19 tablet by ity of (AFEDITAB 00:00: mouth [place] CR) 30 mg 00 daily. Medical SR tablet Branch lovastatin Yes [id number] 20mg Take 1 [facility] (ALTOPREV) 8-19 tablet by ity of 20 mg 24 hr 00:00: mouth at [place] tablet 00 bedtime. Medical Branch NIFEdipine Yes [id number] 30mg Take 1 [facility] ER 8-19 tablet by ity of (AFEDITAB 00:00: mouth [place] CR) 30 mg 00 daily. Medical SR tablet Branch lovastatin Yes [id number] 20mg Take 1 [facility] (ALTOPREV) 8-19 tablet by ity of 20 mg 24 hr 00:00: mouth at [place] tablet 00 bedtime. Medical Branch NIFEdipine Yes [id number] 30mg Take 1 [facility] ER 8-19 tablet by ity of (AFEDITAB 00:00: mouth [place] CR) 30 mg 00 daily. Medical SR tablet Branch lovastatin Yes [id number] 20mg Take 1 [facility] (ALTOPREV) 8-19 tablet by ity of 20 mg 24 hr 00:00: mouth at [place] tablet 00 bedtime. Medical Branch NIFEdipine Yes [id number] 30mg Take 1 [facility] ER 8-19 tablet by ity of (AFEDITAB 00:00: mouth [place] CR) 30 mg 00 daily. Medical SR tablet Branch lovastatin Yes [id number] 20mg Take 1 [facility] (ALTOPREV) 8-19 tablet by ity of 20 mg 24 hr 00:00: mouth at [place] tablet 00 bedtime. Medical Branch NIFEdipine 0 Yes [id number] 30mg Take 1 [facility] ER 8-19 tablet by ity of (AFEDITAB 00:00: mouth [place] CR) 30 mg 00 daily. Medical SR tablet Branch lovastatin Yes [id number] 20mg Take 1 [facility] (ALTOPREV) 8-19 tablet by ity of 20 mg 24 hr 00:00: mouth at [place] tablet 00 bedtime. Medical Branch NIFEdipine 2015-0 Yes [id number] 30mg Take 1 [facility] ER 8-19 tablet by ity of (AFEDITAB 00:00: mouth [place] CR) 30 mg 00 daily. Medical SR tablet Branch lovastatin 2015-0 Yes [id number] 20mg Take 1 U nivers (ALTOPREV) 8-19 tablet by [facility]y of 20 mg 24 hr 00:00: [place] tablet 00 bedtime. [facility] NIFEdipine 2015-0 Yes [id number] 30mg Take 1 [facility] ER 8-19 tablet by ity of (AFEDITAB 00:00: mouth [place] CR) 30 mg 00 daily. Medical SR tablet Branch lovastatin Yes [id number] 20mg Take 1 [facility] n[facility] (ALTOPREV) 8-19 tablet by [facility] 20 mg 24 hr 00:00: [facility] [place] tablet 00 bedtime. [facility] NIFEdipine 2015- Yes [id number] 30mg Take 1 [facility] ER 8-19 tablet by ity of (AFEDITAB 00:00: mouth [place] CR) 30 mg 00 daily. Medical SR tablet Branch lovastatin Yes [id number] 20mg Take 1 [facility] (ALTOPREV) 8-19 tablet by [facility] 20 mg 24 hr 00:00: [facility] [place] tablet 00 bedtime. [facility] NIFEdipine 2015-0 Yes [id number] 30mg Take 1 [facility] ER 8-19 tablet by ity of (AFEDITAB 00:00: mouth [place] CR) 30 mg 00 daily. Medical SR tablet Branch lovastatin 0 Yes [id number] 20mg Take 1 [facility] n[facility] (ALTOPREV) 8-19 tablet by [facility] of 20 mg 24 hr 00:00: [facility] [place] tablet 00 bedtime. [facility] NIFEdipine 2015-0 Yes [id number] 30mg Take 1 [facility] ER 8-19 tablet by ity of (AFEDITAB 00:00: mouth [place] CR) 30 mg 00 daily. Medical SR tablet Branch lovastatin 0 Yes [id number] 20mg Take 1 [facility] n[facility] (ALTOPREV) 8-19 tablet by [facility] of 20 mg 24 hr 00:00: mouth [place] tablet 00 bedtime. [facility] NIFEdipine 2015-0 Yes [id number] 30mg Take 1 [facility] ER 8-19 tablet by ity of (AFEDITAB 00:00: mouth [place] CR) 30 mg 00 daily. Medical SR tablet Branch lovastatin Yes [id number] 20mg Take 1 [facility] nivers (ALTOPREV) 8-19 tablet by [facility] of 20 mg 24 hr 00:00: [facility] [place] tablet 00 bedtime. [facility] NIFEdipine 2022- No [id number] 30mg Take 1 [facility] 8-19 05-26 tablet by ity of (AFEDITAB 00:00: 00:00 mouth [place] CR) 30 mg 00 :00 daily. Medical SR tablet Branch lovastatin 2022- No [id number] 20mg Take 1 [facility] (ALTOPREV) 8-19 05-26 tablet by ity of 20 mg 24 hr 00:00: 00:00 [facility] [place] tablet 00 :00 bedtime. [facility] NIFEdipine 2022- No [id number] 30mg Take 1 [facility] ER 8-19 05-26 tablet by ity of (AFEDITAB 00:00: 00:00 mouth [place] CR) 30 mg 00 :00 daily. Medical SR tablet Branch lovastatin 2022- No [id number] 20mg Take 1 [facility] (ALTOPREV) 8-19 05-26 tablet by ity of 20 mg 24 hr 00:00: 00:00 [facility] [place] tablet 00 :00 bedtime. [facility] hydralAZINE Yes 50mg Take 1 [facility] ers (APRESOLINE 6-28 tablet by ity of ) 50 mg 00:00: mouth [place] tablet 00 every 6 Medical (six) Branch hours. calcitriol Yes .25ug Take 1 Univ ers (ROCALTROL) 6-28 capsule by it y of 0.25 mcg 00:00: mouth [place] capsule 00 daily. [facility] hydralAZINE Yes 50mg Take 1 [facility] ers (APRESOLINE 6-28 tablet by ity of ) 50 mg 00:00: mouth [place] tablet 00 every 6 Medical (six) Branch hours. calcitriol Yes .25ug Take 1 Univ ers (ROCALTROL) 6-28 capsule by it y of 0.25 mcg 00:00: mouth [place] capsule 00 daily. [facility] hydralAZINE Yes 50mg Take 1 [facility] ers (APRESOLINE 6-28 tablet by ity of ) 50 mg 00:00: mouth [place] tablet 00 every 6 Medical (six) Branch hours. calcitriol 2016-0 Yes .25ug Take 1 Univ ers (ROCALTROL) 6-28 capsule by it y of 0.25 mcg 00:00: mouth [place] capsule 00 daily. [facility] hydralAZINE 2016-0 Yes 50mg Take 1 [facility] ers (APRESOLINE 6-28 tablet by ity of ) 50 mg 00:00: mouth [place] tablet 00 every 6 Medical (six) Branch hours. calcitriol 2016-0 Yes .25ug Take 1 [facility] ers (ROCALTROL) 6-28 capsule by it y of 0.25 mcg 00:00: mouth [place] capsule 00 daily. [facility] hydralAZINE 2015-0 Yes 50mg Take 1 [facility] ers (APRESOLINE 6-28 tablet by ity of ) 50 mg 00:00: mouth [place] tablet 00 every 6 Medical (six) Branch hours. calcitriol 2015-0 Yes .25ug Take 1 Univ ers (ROCALTROL) 6-28 capsule by it y of 0.25 mcg 00:00: mouth [place] capsule 00 daily. [facility] aspirin 81 2015-0 Yes 81mg Take 1 Unive rs mg [...] mouth [place] 00 daily. [facility] hydralAZINE 2016-0 Yes 50mg Take 1 [facility] ers (APRESOLINE [...] every 6 Medical (six) Branch hours. calcitriol 0 Yes .25ug Take 1 Univ ers (ROCALTROL) [...] every 6 Medical (six) Branch hours. calcitriol 0 Yes .25ug Take 1 Univ ers (ROCALTROL) 6-28 capsule by it y of 0.25 mcg 00:00: mouth [place] capsule 00 daily. [facility] aspirin 81 2015-0 Yes 81mg Take 1 Unive rs mg chewable 6-28 tablet by ity of tablet 00:00: mouth [place] 00 daily. [facility] hydralAZINE 0 Yes 50mg Take 1 [facility] ers (APRESOLINE 6-28 tablet by ity of ) 50 mg 00:00: mouth [place] tablet 00 every 6 Medical (six) Branch hours. calcitriol 0 Yes .25ug Take 1 [facility] ers (ROCALTROL) [...] mouth [place] capsule 00 daily. [facility] hydralAZINE 0 Yes 50mg Take 1 [facility] ers (APRESOLINE 6-28 tablet by ity of ) 50 mg 00:00: mouth [place] tablet 00 every 6 Medical (six) Branch hours. calcitriol 2015-0 Yes .25ug Take 1 Univ ers (ROCALTROL) 6-28 capsule by it y of 0.25 mcg 00:00: mouth [place] capsule 00 daily. [facility] Branch hydralAZINE 3- No 50mg Take 1 [facility] vers (APRESOLINE 6-28 05-26 tablet by it y of ) 50 mg 00:00: 00:00 mouth [place] tablet 00 :00 every 6 Medical (six) Branch hours. calcitriol 2022- No .25ug Take 1 Uni vers (ROCALTROL) 11-03 capsule by i ty of 0.25 mcg 00:00: 00:00 mouth [place] capsule 00 :00 daily. [facility] Branch hydralAZINE 2022- No 50mg Take 1 [facility] vers (APRESOLINE 11-03 tablet by it y of ) 50 mg 00:00: 00:00 mouth [place] tablet 00 :00 every 6 Medical (six) Branch hours. calcitriol 2022- No .25ug Take 1 Uni vers (ROCALTROL) 11-03 capsule by i ty of 0.25 mcg 00:00: 00:00 mouth [place] capsule 00 :00 daily. [facility] Branch aspirin 81 No 81mg Take 1 Univ ers mg chewable 11-03 tablet by it y of tablet 00:00: 00:00 mouth [place] 00 :00 daily. Medical Branch Immunizations Ordered Filled Immunization Date Status Comments [facility] e Immunization Name Name HEP B, Adult Dosage 2021-02-28 Completed [facility] of 00:00:00 [facility] HEP B, Adult Dosage 2021-02-28 Completed [facility]ity of 00:00:00 [facility] HEP B, Adult Dosage 2021-02-28 Completed [facility] of 00:00:00 [facility] HEP B, Adult Dosage 2021-02-28 Completed Unive rsity of 00:00:00 [facility] Branch HEP B, Adult Dosage 2021-02-28 Completed Unive rsity of 00:00:00 [facility] HEP B, Adult Dosage 2021-02-28 Completed [facility]ive [facility]ity of 00:00:00 [facility] HEP B, Adult Dosage 2021-02-28 Completed Unive rsity of 00:00:00 [facility] HEP B, Adult Dosage 2021-02-28 Completed [facility]ive rsity of 00:00:00 [facility] HEP B, Adult Dosage 2021-02-28 Completed Un[facility]ity of 00:00:00 [facility] HEP B, Adult Dosage 2021-02-28 Completed Unive rsity of 00:00:00 [facility] HEP B, Adult Dosage 2021-02-28 Completed Unive rsity of 00:00:00 [place] [facility] HEP B, Adult Dosage 2021-02-28 Completed Unive rsity of 00:00:00 [place] [facility] HEP B, Adult Dosage 2021-02-28 Completed Unive rsity of 00:00:00 [place] [facility] HEP B, Adult Dosage 2021-02-28 Completed Unive rsity of 00:00:00 [place] [facility] HEP B, Adult Dosage 2021-02-28 Completed Unive rsity of 00:00:00 [place] [facility] HEP B, Adult Dosage 2021-02-28 Completed Unive rsity of 00:00:00 [place] [facility] HEP B, Adult Dosage 2021-02-28 Completed Unive rsity of 00:00:00 [place] [facility] HEP B, Adult Dosage 2021-02-28 Completed Unive rsity of 00:00:00 [place] [facility] HEP B, Adult Dosage 2021-02-28 Completed Unive rsity of 00:00:00 [place] [facility] HEP B, Adult Dosage 2021-02-28 Completed Unive rsity of 00:00:00 [place] [facility] HEP B, Adult Dosage 2021-02-28 Completed Unive rsity of 00:00:00 [place] [facility] HEP B, Adult Dosage 2021-02-28 Completed Unive rsity of 00:00:00 [place] [facility] HEP B, Adult Dosage 2021-02-28 Completed Unive rsity of 00:00:00 [facility] HEP B, Adult Dosage 2021-02-28 Completed Unive rsity of 00:00:00 [place] [facility] HEP B, Adult Dosage 2021-02-28 Completed Unive rsity of 00:00:00 [place] [facility] HEP B, Adult Dosage 2021-02-28 Completed Unive rsity of 00:00:00 [place] [facility] HEP B, Adult Dosage 2021-02-28 Completed Unive rsity of 00:00:00 [place] [facility] HEP B, Adult Dosage 2021-02-28 Completed Unive rsity of 00:00:00 [place] [facility] HEP B, Adult Dosage 2021-02-28 Completed Unive rsity of 00:00:00 [place] [facility] HEP B, Adult Dosage 2021-02-28 Completed Unive rsity of 00:00:00 [place] [facility] HEP B, Adult Dosage 2021-02-28 Completed Unive rsity of 00:00:00 [place] [facility] HEP B, Adult Dosage 2021-02-28 Completed Unive rsity of 00:00:00 [place] [facility] HEP B, Adult Dosage 2021-02-28 Completed Unive rsity of 00:00:00 [place] [facility] HEP B, Adult Dosage 2021-02-28 Completed Unive rsity of 00:00:00 [place] [facility] HEP B, Adult Dosage 2021-02-28 Completed Unive rsity of 00:00:00 [place] [facility] HEP B, Adult Dosage 2021-02-28 Completed Unive rsity of 00:00:00 [place] [facility] HEP B, Adult Dosage 2021-02-28 Completed Unive rsity of 00:00:00 [place] [facility] HEP B, Adult Dosage 2021-02-28 Completed [facility]ive rsity of 00:00:00 [place] [facility] HEP B, Adult Dosage 2021-02-28 Completed Unive rsity of 00:00:00 [place] [facility] HEP B, Adult Dosage 2021-02-28 Completed Unive rsity of 00:00:00 [place] [facility] HEP B, Adult Dosage 2021-02-28 Completed Unive rsity of 00:00:00 [place] [facility] HEP B, Adult Dosage 2021-02-28 Completed Unive rsity of 00:00:00 [place] [facility] HEP B, Adult Dosage 2021-02-28 Completed Unive rsity of 00:00:00 [place] [facility] HEP B, Adult Dosage 2021-02-28 Completed [facility]ive rsity of 00:00:00 [place] [facility] HEP B, Adult Dosage 2021-02-28 Completed Unive rsity of 00:00:00 [place] [facility] HEP B, Adult Dosage 2021-02-28 Completed Unive rsity of 00:00:00 [place] [facility] HEP B, Adult Dosage 2021-02-28 Completed Unive rsity of 00:00:00 [place] [facility] HEP B, Adult Dosage 2021-02-28 Completed Unive rsity of 00:00:00 [place] [facility] HEP B, Adult Dosage 2021-02-28 Completed Unive rsity of 00:00:00 [facility] Influenza High Dose 2021-02-16 Completed [facility] of [place] 00:00:00 [facility] Influenza High Dose 2021-02-16 Completed [facility] [place] 00:00:00 [place] [facility] Influenza High Dose 2021-02-16 Completed [facility] [place] 00:00:00 [place] [facility] Influenza High Dose 2021-02-16 Completed [facility] [place] 00:00:00 [place] [facility] Influenza High Dose 2021-02-16 Completed [facility] [place] 00:00:00 [place] [facility] Influenza High Dose 2021-02-16 Completed [facility] [place] 00:00:00 [place] [facility] Influenza High Dose 2021-02-16 Completed [facility] [place] 00:00:00 [place] [facility] Influenza High Dose 2021-02-16 Completed [facility] [place] 00:00:00 [place] [facility] Influenza High Dose 2021-02-16 Completed [facility] [place] 00:00:00 [place] [facility] Influenza High Dose 2021-02-16 Completed [facility] [place] 00:00:00 [place] [facility] Influenza High Dose 2021-02-16 Completed [facility] [place] 00:00:00 [place] [facility] Influenza High Dose 2021-02-16 Completed [facility] [place] 00:00:00 [place] [facility] Influenza High Dose 2021-02-16 Completed [facility] [place] 00:00:00 [place] [facility] Influenza High Dose 2021-02-16 Completed [facility] [place] 00:00:00 [place] [facility] Influenza High Dose 2021-02-16 Completed [facility] [place] 00:00:00 [place] [facility] Influenza High Dose 2021-02-16 Completed [facility] [place] 00:00:00 [place] [facility] Influenza High Dose 2021-02-16 Completed [facility] [place] 00:00:00 [place] [facility] Influenza High Dose 2021-02-16 Completed [facility] [place] 00:00:00 [place] [facility] Influenza High Dose 2021-02-16 Completed [facility] [place] 00:00:00 [place] [facility] Influenza High Dose 2021-02-16 Completed [facility] [place] 00:00:00 [place] [facility] Influenza High Dose 2021-02-16 Completed [facility] [place] 00:00:00 [place] [facility] Influenza High Dose 2021-02-16 Completed [facility] [place] 00:00:00 [place] [facility] Influenza High Dose 2021-02-16 Completed [facility] [place] 00:00:00 [place] [facility] Influenza High Dose 2021-02-16 Completed [facility] [place] 00:00:00 [place] [facility] Influenza High Dose 2021-02-16 Completed [facility] [place] 00:00:00 [place] [facility] Influenza High Dose 2021-02-16 Completed [facility] [place] 00:00:00 [place] [facility] Influenza High Dose 2021-02-16 Completed [facility] [place] 00:00:00 [place] [facility] Influenza High Dose 2021-02-16 Completed [facility] [place] 00:00:00 [place] [facility] Influenza High Dose 2021-02-16 Completed [facility] [place] 00:00:00 [place] [facility] Influenza High Dose 2021-02-16 Completed [facility] [place] 00:00:00 [place] [facility] Influenza High Dose 2021-02-16 Completed [facility] [place] 00:00:00 [place] [facility] Influenza High Dose 2021-02-16 Completed [facility] [place] 00:00:00 [place] [facility] Influenza High Dose 2021-02-16 Completed [facility] [place] 00:00:00 [place] [facility] Influenza High Dose 2021-02-16 Completed [facility] [place] 00:00:00 [place] [facility] Influenza High Dose 2021-02-16 Completed [facility] [place] 00:00:00 [place] [facility] Influenza High Dose 2021-02-16 Completed [facility] [place] 00:00:00 [place] [facility] Influenza High Dose 2021-02-16 Completed [facility] [place] 00:00:00 [place] [facility] Influenza High Dose 2021-02-16 Completed [facility] [place] 00:00:00 [place] [facility] Influenza High Dose 2021-02-16 Completed [facility] [place] 00:00:00 [place] [facility] Influenza High Dose 2021-02-16 Completed [facility] [place] 00:00:00 [place] [facility] Influenza High Dose 2021-02-16 Completed [facility] [place] 00:00:00 [place] [facility] Influenza High Dose 2021-02-16 Completed [facility] [place] 00:00:00 [place] [facility] Influenza High Dose 2021-02-16 Completed [facility] [place] 00:00:00 [place] [facility] Influenza High Dose 2021-02-16 Completed [facility] [place] 00:00:00 [facility] Influenza High Dose 2021-02-16 Completed [facility] [place] 00:00:00 [facility] Influenza High Dose 2021-02-16 Completed [facility] [place] 00:00:00 [facility] Influenza High Dose 2021-02-16 Completed [facility] [place] 00:00:00 [facility] Influenza High Dose 2021-02-16 Completed [facility] of [place] 00:00:00 [facility] Influenza High Dose 2021-02-16 Completed [facility] [place] 00:00:00 [facility] PPD (TB) 2020-12-22 Completed University of 00:00:00 [facility] PPD (TB) 2020-12-22 Completed University of 00:00:00 [facility] PPD (TB) 2020-12-22 Completed University of 00:00:00 [facility] PPD (TB) 2020-12-22 Completed University of 00:00:00 [facility] PPD (TB) 2020-12-22 Completed University of 00:00:00 [facility] PPD (TB) 2020-12-22 Completed University of 00:00:00 [facility] PPD (TB) 2020-12-22 Completed University of 00:00:00 [facility] PPD (TB) 2020-12-22 Completed University of 00:00:00 [facility] PPD (TB) 2020-12-22 Completed University of 00:00:00 [facility] PPD (TB) 2020-12-22 Completed University of 00:00:00 [place] [facility] PPD (TB) 2020-12-22 Completed University of 00:00:00 [place] [facility] PPD (TB) 2020-12-22 Completed University of 00:00:00 [place] [facility] PPD (TB) 2020-12-22 Completed University of 00:00:00 [place] [facility] PPD (TB) 2020-12-22 Completed University of 00:00:00 [facility] PPD (TB) 2020-12-22 Completed University of 00:00:00 [facility] PPD (TB) 2020-12-22 Completed University of 00:00:00 [facility] PPD (TB) 2020-12-22 Completed University of 00:00:00 [facility] PPD (TB) 2020-12-22 Completed University of 00:00:00 [place] [facility] PPD (TB) 2020-12-22 Completed University of 00:00:00 [place] [facility] PPD (TB) 2020-12-22 Completed University of 00:00:00 [place] [facility] PPD (TB) 2020-12-22 Completed University of 00:00:00 [place] [facility] PPD (TB) 2020-12-22 Completed University of 00:00:00 [place] [facility] PPD (TB) 2020-12-22 Completed University of 00:00:00 [place] [facility] PPD (TB) 2020-12-22 Completed University of 00:00:00 [facility] PPD (TB) 2020-12-22 Completed University of 00:00:00 [facility] PPD (TB) 2020-12-22 Completed University of 00:00:00 [facility] PPD (TB) 2020-12-22 Completed University of 00:00:00 [facility] PPD (TB) 2020-12-22 Completed University of 00:00:00 [facility] PPD (TB) 2020-12-22 Completed University of 00:00:00 [facility] PPD (TB) 2020-12-22 Completed University of 00:00:00 [facility] PPD (TB) 2020-12-22 Completed University of 00:00:00 [facility] PPD (TB) 2020-12-22 Completed University of 00:00:00 [facility] PPD (TB) 2020-12-22 Completed University of 00:00:00 [facility] PPD (TB) 2020-12-22 Completed University of 00:00:00 [facility] PPD (TB) 2020-12-22 Completed University of 00:00:00 [facility] PPD (TB) 2020-12-22 Completed University of 00:00:00 [facility] PPD (TB) 2020-12-22 Completed University of 00:00:00 [facility] PPD (TB) 2020-12-22 Completed University of 00:00:00 [facility] PPD (TB) 2020-12-22 Completed University of 00:00:00 [facility] PPD (TB) 2020-12-22 Completed University of 00:00:00 [facility] PPD (TB) 2020-12-22 Completed University of 00:00:00 [facility] PPD (TB) 2020-12-22 Completed University of 00:00:00 [facility] PPD (TB) 2020-12-22 Completed University of 00:00:00 [facility] PPD (TB) 2020-12-22 Completed University of 00:00:00 [facility] PPD (TB) 2020-12-22 Completed University of 00:00:00 [facility] PPD (TB) 2020-12-22 Completed University of 00:00:00 [facility] PPD (TB) 2020-12-22 Completed University of 00:00:00 [facility] PPD (TB) 2020-12-22 Completed University of 00:00:00 [facility] PPD (TB) 2020-12-22 Completed University of 00:00:00 [facility] Branch Pneumococcal 2020-10-22 Completed University o f Unspecified 00:00:00 [facility] Pneumococcal 2020-10-22 Completed University o f Unspecified 00:00:00 [facility] Pneumococcal 2020-10-22 Completed University o f Unspecified 00:00:00 [facility] Pneumococcal 2020-10-22 Completed University o f Unspecified 00:00:00 [facility] Pneumococcal 2020-10-22 Completed University o f Unspecified 00:00:00 [facility] Pneumococcal 2020-10-22 Completed University o f Unspecified 00:00:00 [facility] Pneumococcal 2020-10-22 Completed University o f Unspecified 00:00:00 [facility] Pneumococcal 2020-10-22 Completed University o f Unspecified 00:00:00 [facility] Pneumococcal 2020-10-22 Completed University o f Unspecified 00:00:00 [facility] Pneumococcal 2020-10-22 Completed University o f Unspecified 00:00:00 [facility] Pneumococcal 2020-10-22 Completed University o f Unspecified 00:00:00 [facility] Pneumococcal 2020-10-22 Completed University o f Unspecified 00:00:00 [facility] Pneumococcal 2020-10-22 Completed University o f Unspecified 00:00:00 [facility] Pneumococcal 2020-10-22 Completed University o f Unspecified 00:00:00 [facility] Pneumococcal 2020-10-22 Completed University o f Unspecified 00:00:00 [facility] Pneumococcal 2020-10-22 Completed University o f Unspecified 00:00:00 [facility] Pneumococcal 2020-10-22 Completed University o f Unspecified 00:00:00 [facility] Pneumococcal 2020-10-22 Completed University o f Unspecified 00:00:00 [facility] Pneumococcal 2020-10-22 Completed University o f Unspecified 00:00:00 [facility] Pneumococcal 2020-10-22 Completed University o f Unspecified 00:00:00 [facility] Pneumococcal 2020-10-22 Completed University o f Unspecified 00:00:00 [facility] Pneumococcal 2020-10-22 Completed University o f Unspecified 00:00:00 [facility] Pneumococcal 2020-10-22 Completed University o f Unspecified 00:00:00 [facility] Pneumococcal 2020-10-22 Completed University o f Unspecified 00:00:00 [facility] Pneumococcal 2020-10-22 Completed University o f Unspecified 00:00:00 [facility] Pneumococcal 2020-10-22 Completed University o f Unspecified 00:00:00 [facility] Pneumococcal 2020-10-22 Completed University o f Unspecified 00:00:00 [facility] Pneumococcal 2020-10-22 Completed University o f Unspecified 00:00:00 [facility] Pneumococcal 2020-10-22 Completed University o f Unspecified 00:00:00 [facility] Pneumococcal 2020-10-22 Completed University o f Unspecified 00:00:00 [facility] Pneumococcal 2020-10-22 Completed University o f Unspecified 00:00:00 [facility] Pneumococcal 2020-10-22 Completed University o f Unspecified 00:00:00 [facility] Pneumococcal 2020-10-22 Completed University o f Unspecified 00:00:00 [facility] Pneumococcal 2020-10-22 Completed University o f Unspecified 00:00:00 [facility] Pneumococcal 2020-10-22 Completed University o f Unspecified 00:00:00 [facility] Pneumococcal 2020-10-22 Completed University o f Unspecified 00:00:00 [facility] Pneumococcal 2020-10-22 Completed [facility] o [facility]specified 00:00:00 [facility] [place] [facility] 2020-[facility]-22 Com[facility] 00[facility]00:00 [facility] Pneumococcal 2020-10-22 Completed [facility] 00:00:00 [facility] Pneumococcal 2020-10-22 Completed [facility] Unspecified 00:00:00 [facility] Pneumococcal 2020-10-22 Completed [facility] Unspecified 00:00:00 [facility] Pneumococcal 2020-10-22 Completed [facility] Unspecified 00:00:00 [facility] Pneumococcal 2020-10-22 Completed [facility] 00[facility]00:00 [facility] Pneumococcal 2020-10-22 Completed [facility] Unspecified 00:00:00 [facility] Pneumococcal 2020-10-22 Completed [facility] 00:00:00 [facility] Pneumococcal 2020-10-22 Completed [facility]specified 00:00:00 [facility] Pneumococcal 2020-10-22 Completed [facility]specified 00:00:00 [facility] Pneumococcal 2020-10-22 Completed [facility]specified 00:00:00 [facility] Pneumococcal 2020-10-22 Completed [facility]specified 00:00:00 [facility] HEP B, Adult Dosage 2020-04-14 Completed [facility] of 00:00:00 [facility] HEP B, Adult Dosage 2020-04-14 Completed [facility] 00:00:00 [facility] HEP B, Adult Dosage 2020-04-14 Completed [facility] 00:00:00 [facility] HEP B, Adult Dosage 2020-04-14 Completed [facility] 00:00:00 [facility] HEP B, Adult Dosage 2020-04-14 Completed [facility] 00:00:00 [facility] HEP B, Adult Dosage 2020-04-14 Completed [facility] 00:00:00 [facility] HEP B, Adult Dosage 2020-04-14 Completed [facility] 00:00:00 [facility] HEP B, Adult Dosage 2020-04-14 Completed [facility] 00:00:00 [facility] HEP B, Adult Dosage 2020-04-14 Completed [facility] 00:00:00 [facility] HEP B, Adult Dosage 2020-04-14 Completed [facility] 00:00:00 [facility] HEP B, Adult Dosage 2020-04-14 Completed [facility] 00:00:00 [facility] HEP B, Adult Dosage 2020-04-14 Completed [facility] 00:00:00 [facility] HEP B, Adult Dosage 2020-04-14 Completed [facility] 00:00:00 [facility] HEP B, Adult Dosage 2020-04-14 Completed [facility] 00:00:00 [facility] HEP B, Adult Dosage 2020-04-14 Completed [facility] 00:00:00 [facility] HEP B, Adult Dosage 2020-04-14 Completed [facility] 00:00:00 [facility] HEP B, Adult Dosage 2020-04-14 Completed [facility] 00:00:00 [facility] HEP B, Adult Dosage 2020-04-14 Completed [facility] 00:00:00 [facility] HEP B, Adult Dosage 2020-04-14 Completed [facility] 00:00:00 [facility] HEP B, Adult Dosage 2020-04-14 Completed [facility] 00:00:00 [facility] HEP B, Adult Dosage 2020-04-14 Completed [facility] 00:00:00 [facility] HEP B, Adult Dosage 2020-04-14 Completed [facility] 00:00:00 [facility] HEP B, Adult Dosage 2020-04-14 Completed [facility] 00:00:00 [facility] HEP B, Adult Dosage 2020-04-14 Completed [facility] 00:00:00 [facility] HEP B, Adult Dosage 2020-04-14 Completed [facility] 00:00:00 [facility] HEP B, Adult Dosage 2020-04-14 Completed [facility] 00:00:00 [facility] HEP B, Adult Dosage 2020-04-14 Completed [facility] 00:00:00 [facility] HEP B, Adult Dosage 2020-04-14 Completed [facility] 00:00:00 [facility] HEP B, Adult Dosage 2020-04-14 Completed [facility] 00:00:00 [facility] HEP B, Adult Dosage 2020-04-14 Completed [facility] 00:00:00 [facility] HEP B, Adult Dosage 2020-04-14 Completed [facility] 00:00:00 [facility] HEP B, Adult Dosage 2020-04-14 Completed [facility] 00:00:00 [facility] HEP B, Adult Dosage 2020-04-14 Completed [facility] 00:00:00 [facility] HEP B, Adult Dosage 2020-04-14 Completed [facility] 00:00:00 [facility] HEP B, Adult Dosage 2020-04-14 Completed [facility] 00:00:00 [facility] HEP B, Adult Dosage 2020-04-14 Completed [facility] 00:00:00 [facility] HEP B, Adult Dosage 2020-04-14 Completed [facility] 00:00:00 [facility] HEP B, Adult Dosage 2020-04-14 Completed [facility] 00:00:00 [facility] HEP B, Adult Dosage 2020-04-14 Completed [facility] 00:00:00 [facility] HEP B, Adult Dosage 2020-04-14 Completed [facility] 00:00:00 [facility] HEP B, Adult Dosage 2020-04-14 Completed [facility] 00:00:00 [facility] HEP B, Adult Dosage 2020-04-14 Completed [facility] 00:00:00 [facility] HEP B, Adult Dosage 2020-04-14 Completed [facility] 00:00:00 [facility] HEP B, Adult Dosage 2020-04-14 Completed [facility] 00:00:00 [facility] HEP B, Adult Dosage 2020-04-14 Completed [facility] 00:00:00 [facility] HEP B, Adult Dosage 2020-04-14 Completed [facility] 00:00:00 [facility] HEP B, Adult Dosage 2020-04-14 Completed [facility] 00:00:00 [facility] HEP B, Adult Dosage 2020-04-14 Completed [facility] 00:00:00 [facility] HEP B, Adult Dosage 2020-04-14 Completed [facility] 00:00:00 [facility] Influenza Virus 2020-02-15 Completed [facility], 00:00:00 [place] [facility] AB[facility] Free 6 MO-64 YRS Influenza Virus 2020-02-15 Completed [facility], 00:00:00 [place] [facility] ABX [facility] Free 6 MO-64 YRS Influenza Virus 2020-02-15 Completed [facility], 00:00:00 [place] [facility] ABX [facility] Free 6 MO-64 YRS Influenza Virus 2020-02-15 Completed [facility], 00:00:00 [place] [facility] ABX [facility] Free 6 MO-64 YRS Influenza Virus 2020-02-15 Completed [facility], 00:00:00 [place] [facility] ABX [facility] Free 6 MO-64 YRS Influenza Virus 2020-02-15 Completed [facility], 00:00:00 [place] [facility] ABX [facility] Free 6 MO-64 YRS Influenza Virus 2020-02-15 Completed [facility], 00:00:00 [place] [facility] ABX [facility] Free 6 MO-64 YRS Influenza Virus 2020-02-15 Completed [facility], 00:00:00 [place] [facility] ABX [facility] Free 6 MO-64 YRS Influenza Virus 2020-02-15 Completed [facility], 00:00:00 [place] [facility] ABX [facility] Free 6 MO-64 YRS Influenza Virus 2020-02-15 Completed [facility], 00:00:00 [place] [facility] ABX [facility] Free 6 MO-64 YRS Influenza Virus 2020-02-15 Completed [facility], 00:00:00 [place] [facility] ABX [facility] Free 6 MO-64 YRS Influenza Virus 2020-02-15 Completed [facility], 00:00:00 [place] [facility] ABX [facility] Free 6 MO-64 YRS Influenza Virus 2020-02-15 Completed [facility], 00:00:00 [place] [facility] ABX [facility] Free 6 MO-64 YRS Influenza Virus 2020-02-15 Completed [facility], 00:00:00 [place] [facility] ABX [facility] Free 6 MO-64 YRS Influenza Virus 2020-02-15 Completed [facility], 00:00:00 [place] [facility] ABX [facility] Free 6 MO-64 YRS Influenza Virus 2020-02-15 Completed [facility], 00:00:00 [place] [facility] ABX [facility] Free 6 MO-64 YRS Influenza Virus 2020-02-15 Completed [facility], 00:00:00 [place] [facility] Pres[facility] ABX [facility] Free 6 MO-64 YRS Influenza Virus 2020-02-15 Completed [facility], 00:00:00 [place] [facility] Pres[facility] ABX [facility] Free 6 MO-64 YRS Influenza Virus 2020-02-15 Completed [facility], 00:00:00 [place] [facility] Pres[facility] ABX [facility] Free 6 MO-64 YRS Influenza Virus 2020-02-15 Completed [facility], 00:00:00 [place] [facility] Pres[facility] ABX [facility] Free 6 MO-64 YRS Influenza Virus 2020-02-15 Completed [facility], 00:00:00 [place] [facility] Pres[facility] ABX [facility] Free 6 MO-64 YRS Influenza Virus 2020-02-15 Completed [facility], 00:00:00 [place] [facility] Pres[facility] ABX [facility] Free 6 MO-64 YRS Influenza Virus 2020-02-15 Completed [facility], 00:00:00 [place] [facility] Pres[facility] ABX [facility] Free 6 MO-64 YRS Influenza Virus 2020-02-15 Completed [facility], 00:00:00 [place] [facility] ABX [facility] Free 6 MO-64 YRS Influenza Virus 2020-02-15 Completed [facility], 00:00:00 [place] [facility] ABX [facility] Free 6 MO-64 YRS Influenza Virus 2020-02-15 Completed [facility], 00:00:00 [place] [facility] ABX [facility] Free 6 MO-64 YRS Influenza Virus 2020-02-15 Completed [facility], 00:00:00 [place] [facility] ABX [facility] Free 6 MO-64 YRS Influenza Virus 2020-02-15 Completed [facility], 00:00:00 [place] [facility] Pres[facility] ABX [facility] Free 6 MO-64 YRS Influenza Virus 2020-02-15 Completed [facility], 00:00:00 [place] [facility] Pres[facility] ABX [facility] Free 6 MO-64 YRS Influenza Virus 2020-02-15 Completed [facility], 00:00:00 [place] [facility] Pres[facility] ABX [facility] Free 6 MO-64 YRS Influenza Virus 2020-02-15 Completed [facility], 00:00:00 [place] [facility] Pres[facility] ABX [facility] Free 6 MO-64 YRS Influenza Virus 2020-02-15 Completed [facility], 00:00:00 [place] [facility] Pres[facility] ABX [facility] Free 6 MO-64 YRS Influenza Virus 2020-02-15 Completed [facility], 00:00:00 [place] [facility] Pres[facility] ABX [facility] Free 6 MO-64 YRS Influenza Virus 2020-02-15 Completed [facility], 00:00:00 [place] [facility] Pres[facility] ABX [facility] Free 6 MO-64 YRS Influenza Virus 2020-02-15 Completed [facility], 00:00:00 [place] [facility] ABX [facility] Free 6 MO-64 YRS Influenza Virus 2020-02-15 Completed [facility], 00:00:00 [place] [facility] Pres[facility] ABX [facility] Free 6 MO-64 YRS Influenza Virus 2020-02-15 Completed [facility], 00:00:00 [place] [facility] Pres[facility] ABX [facility] Free 6 MO-64 YRS Influenza Virus 2020-02-15 Completed [facility], 00:00:00 [place] [facility] Pres[facility] ABX [facility] Free 6 MO-64 YRS Influenza Virus 2020-02-15 Completed [facility], 00:00:00 [place] [facility] Pres[facility] ABX [facility] Free 6 MO-64 YRS Influenza Virus 2020-02-15 Completed [facility], 00:00:00 [place] [facility] Pres[facility] ABX [facility] Free 6 MO-64 YRS Influenza Virus 2020-02-15 Completed [facility], 00:00:00 [place] [facility] Preserv [facility] ABX [facility] Free 6 MO-64 YRS Influenza Virus 2020-02-15 Completed [facility], 00:00:00 [place] [facility] Preserv [facility] ABX [facility] Free 6 MO-64 YRS Influenza Virus 2020-02-15 Completed [facility], 00:00:00 [place] [facility] Preserv [facility] ABX [facility] Free 6 MO-64 YRS Influenza Virus 2020-02-15 Completed [facility], 00:00:00 [place] [facility] Preserv [facility] ABX [facility] Free 6 MO-64 YRS Influenza Virus 2020-02-15 Completed [facility], 00:00:00 [place] [facility] Pres[facility] ABX [facility] Free 6 MO-64 YRS Influenza Virus 2020-02-15 Completed [facility], 00:00:00 [place] [facility] Preserv [facility] ABX [facility] Free 6 MO-64 YRS Influenza Virus 2020-02-15 Completed [facility], 00:00:00 [place] [facility] Pres[facility] ABX [facility] Free 6 MO-64 YRS Influenza Virus 2020-02-15 Completed [facility], 00:00:00 [place] [facility] ABX [facility] Free 6 MO-64 YRS Influenza Virus 2020-02-15 Completed [facility], 00:00:00 [place] [facility] Free 6 MO-64 YRS PPD (TB) 2019-12-17 Completed [facility] 00:00:00 [facility] PPD (TB) 2019-12-17 Completed [facility] 00:00:00 [facility] PPD (TB) 2019-12-17 Completed [facility] 00:00:00 [facility] PPD (TB) 2019-12-17 Completed [facility] 00:00:00 [facility] PPD (TB) 2019-12-17 Completed [facility] 00:00:00 [facility] PPD (TB) 2019-12-17 Completed [facility] 00:00:00 [facility] PPD (TB) 2019-12-17 Completed [facility] 00:00:00 [facility] PPD (TB) 2019-12-17 Completed [facility] of 00:00:00 [facility] PPD (TB) 2019-12-17 Completed [facility] 00:00:00 [facility] PPD (TB) 2019-12-17 Completed [facility] 00:00:00 [facility] PPD (TB) 2019-12-17 Completed [facility] 00:00:00 [facility] PPD (TB) 2019-12-17 Completed [facility] 00:00:00 [facility] PPD (TB) 2019-12-17 Completed [facility] of 00:00:00 [facility] PPD (TB) 2019-12-17 Completed [facility] of 00:00:00 [facility] PPD (TB) 2019-12-17 Completed [facility] of 00:00:00 [facility] PPD (TB) 2019-12-17 Completed [facility] of 00:00:00 [facility] PPD (TB) 2019-12-17 Completed [facility] of 00:00:00 [facility] PPD (TB) 2019-12-17 Completed [facility] of 00:00:00 [facility] PPD (TB) 2019-12-17 Completed [facility] 00:00:00 [facility] PPD (TB) 2019-12-17 Completed [facility] of 00:00:00 [facility] PPD (TB) 2019-12-17 Completed [facility] 00:00:00 [facility] PPD (TB) 2019-12-17 Completed [facility] 00:00:00 [facility] PPD (TB) 2019-12-17 Completed [facility] of 00:00:00 [facility] PPD (TB) 2019-12-17 Completed [facility] 00:00:00 [facility] PPD (TB) 2019-12-17 Completed [facility] 00:00:00 [facility] PPD (TB) 2019-12-17 Completed [facility] of 00:00:00 [facility] PPD (TB) 2019-12-17 Completed [facility] of 00:00:00 [facility] PPD (TB) 2019-12-17 Completed [facility] 00:00:00 [facility] PPD (TB) 2019-12-17 Completed [facility] of 00:00:00 [facility] PPD (TB) 2019-12-17 Completed [facility] of 00:00:00 [facility] PPD (TB) 2019-12-17 Completed [facility] of 00:00:00 [facility] PPD (TB) 2019-12-17 Completed [facility] 00:00:00 [facility] PPD (TB) 2019-12-17 Completed [facility] of 00:00:00 [facility] PPD (TB) 2019-12-17 Completed [facility] 00:00:00 [facility] PPD (TB) 2019-12-17 Completed [facility] 00:00:00 [facility] PPD (TB) 2019-12-17 Completed [facility] 00:00:00 [facility] PPD (TB) 2019-12-17 Completed [facility] 00:00:00 [facility] PPD (TB) 2019-12-17 Completed [facility] 00:00:00 [facility] PPD (TB) 2019-12-17 Completed [facility] 00:00:00 [facility] PPD (TB) 2019-12-17 Completed [facility] 00:00:00 [facility] PPD (TB) 2019-12-17 Completed [facility] 00:00:00 [facility] PPD (TB) 2019-12-17 Completed [facility] 00:00:00 [facility] PPD (TB) 2019-12-17 Completed [facility] 00:00:00 [facility] PPD (TB) 2019-12-17 Completed [facility] 00:00:00 [facility] PPD (TB) 2019-12-17 Completed [facility] 00:00:00 [facility] PPD (TB) 2019-12-17 Completed [facility] 00:00:00 [facility] PPD (TB) 2019-12-17 Completed [facility] 00:00:00 [facility] PPD (TB) 2019-12-17 Completed [facility] 00:00:00 [facility] PPD (TB) 2019-12-17 Completed [facility] 00:00:00 [facility] Influenza Virus 2019-02-28 Completed [facility], 00:00:00 [place] [facility] AB[facility] Free 6 MO-64 YRS Influenza Virus 2019-02-28 Completed [facility], 00:00:00 [place] [facility] ABX [facility] Free 6 MO-64 YRS Influenza Virus 2019-02-28 Completed [facility], 00:00:00 [place] [facility] Pres[facility] ABX [facility] Free 6 MO-64 YRS Influenza Virus 2019-02-28 Completed [facility], 00:00:00 [place] [facility] Pres[facility] ABX [facility] Free 6 MO-64 YRS Influenza Virus 2019-02-28 Completed [facility], 00:00:00 [place] [facility] Pres[facility] ABX [facility] Free 6 MO-64 YRS Influenza Virus 2019-02-28 Completed [facility], 00:00:00 [place] [facility] Pres[facility] ABX [facility] Free 6 MO-64 YRS Influenza Virus 2019-02-28 Completed [facility], 00:00:00 [place] [facility] Pres[facility] ABX [facility] Free 6 MO-64 YRS Influenza Virus 2019-02-28 Completed [facility], 00:00:00 [place] [facility] Pres[facility] ABX [facility] Free 6 MO-64 YRS Influenza Virus 2019-02-28 Completed [facility], 00:00:00 [place] [facility] Pres[facility] ABX [facility] Free 6 MO-64 YRS Influenza Virus 2019-02-28 Completed [facility], 00:00:00 [place] [facility] Pres[facility] ABX [facility] Free 6 MO-64 YRS Influenza Virus 2019-02-28 Completed [facility], 00:00:00 [place] [facility] Pres[facility] ABX [facility] Free 6 MO-64 YRS Influenza Virus 2019-02-28 Completed [facility], 00:00:00 [place] [facility] Pres[facility] ABX [facility] Free 6 MO-64 YRS Influenza Virus 2019-02-28 Completed [facility], 00:00:00 [place] [facility] Preserv [facility] ABX [facility] Free 6 MO-64 YRS Influenza Virus 2019-02-28 Completed [facility], 00:00:00 [place] [facility] Pres[facility] ABX [facility] Free 6 MO-64 YRS Influenza Virus 2019-02-28 Completed [facility], 00:00:00 [place] [facility] Preserv [facility] ABX [facility] Free 6 MO-64 YRS Influenza Virus 2019-02-28 Completed [facility], 00:00:00 [place] [facility] Pres[facility] ABX [facility] Free 6 MO-64 YRS Influenza Virus 2019-02-28 Completed [facility], 00:00:00 [place] [facility] Preserv [facility] ABX [facility] Free 6 MO-64 YRS Influenza Virus 2019-02-28 Completed [facility], 00:00:00 [place] [facility] Pres[facility] ABX [facility] Free 6 MO-64 YRS Influenza Virus 2019-02-28 Completed [facility], 00:00:00 [place] [facility] Preserv [facility] ABX [facility] Free 6 MO-64 YRS Influenza Virus 2019-02-28 Completed [facility], 00:00:00 [place] [facility] Pres[facility] ABX [facility] Free 6 MO-64 YRS Influenza Virus 2019-02-28 Completed [facility], 00:00:00 [place] [facility] Pres[facility] ABX [facility] Free 6 MO-64 YRS Influenza Virus 2019-02-28 Completed [facility], 00:00:00 [place] [facility] Pres[facility] ABX [facility] Free 6 MO-64 YRS Influenza Virus 2019-02-28 Completed [facility], 00:00:00 [place] [facility] Preserv [facility] ABX [facility] Free 6 MO-64 YRS Influenza Virus 2019-02-28 Completed [facility], 00:00:00 [place] [facility] Pres[facility] ABX [facility] Free 6 MO-64 YRS Influenza Virus 2019-02-28 Completed [facility], 00:00:00 [place] [facility] Preserv [facility] ABX [facility] Free 6 MO-64 YRS Influenza Virus 2019-02-28 Completed [facility], 00:00:00 [place] [facility] Pres[facility] ABX [facility] Free 6 MO-64 YRS Influenza Virus 2019-02-28 Completed [facility], 00:00:00 [place] [facility] Pres[facility] ABX [facility] Free 6 MO-64 YRS Influenza Virus 2019-02-28 Completed [facility], 00:00:00 [place] [facility] Pres[facility] ABX [facility] Free 6 MO-64 YRS Influenza Virus 2019-02-28 Completed [facility], 00:00:00 [place] [facility] Pres[facility] ABX [facility] Free 6 MO-64 YRS Influenza Virus 2019-02-28 Completed [facility], 00:00:00 [place] [facility] Pres[facility] ABX [facility] Free 6 MO-64 YRS Influenza Virus 2019-02-28 Completed [facility], 00:00:00 [place] [facility] Preserv [facility] ABX [facility] Free 6 MO-64 YRS Influenza Virus 2019-02-28 Completed [facility], 00:00:00 [place] [facility] Preserv [facility] ABX Branch Free 6 MO-64 YRS Influenza Virus 2019-02-28 Completed [facility], 00:00:00 [place] [facility] Preserv [facility] ABX [facility] Free 6 MO-64 YRS Influenza Virus 2019-02-28 Completed [facility], 00:00:00 [place] [facility] Preserv [facility] ABX Branch Free 6 MO-64 YRS Influenza Virus 2019-02-28 Completed [facility], 00:00:00 [place] [facility] Preserv and ABX Branch Free 6 MO-64 YRS Influenza Virus 2019-02-28 Completed [facility], 00:00:00 [place] [facility] Pres[facility] ABX [facility] Free 6 MO-64 YRS Influenza Virus 2019-02-28 Completed [facility], 00:00:00 [place] [facility] Pres[facility] ABX [facility] Free 6 MO-64 YRS Influenza Virus 2019-02-28 Completed [facility], 00:00:00 [place] [facility] Pres[facility] ABX [facility] Free 6 MO-64 YRS Influenza Virus 2019-02-28 Completed [facility], 00:00:00 [place] [facility] Pres[facility] ABX Branch Free 6 MO-64 YRS Influenza Virus 2019-02-28 Completed [facility], 00:00:00 [place] [facility] Pres[facility] ABX [facility] Free 6 MO-64 YRS Influenza Virus 2019-02-28 Completed [facility], 00:00:00 [place] [facility] Preserv and ABX Branch Free 6 MO-64 YRS Influenza Virus 2019-02-28 Completed [facility], 00:00:00 [place] [facility] Preserv and ABX Branch Free 6 MO-64 YRS Influenza Virus 2019-02-28 Completed [facility], 00:00:00 [place] [facility] Preserv and ABX Branch Free 6 MO-64 YRS Influenza Virus 2019-02-28 Completed [facility], 00:00:00 [place] [facility] Preserv and ABX Branch Free 6 MO-64 YRS Influenza Virus 2019-02-28 Completed [facility], 00:00:00 [place] [facility] Preserv and ABX Branch Free 6 MO-64 YRS Influenza Virus 2019-02-28 Completed [facility], 00:00:00 [place] [facility] Preserv and ABX Branch Free 6 MO-64 YRS Influenza Virus 2019-02-28 Completed [facility], 00:00:00 [place] [facility] Preserv and ABX Branch Free 6 MO-64 YRS Influenza Virus 2019-02-28 Completed [facility], 00:00:00 [place] [facility] Pres[facility] ABX [facility] Free 6 MO-64 YRS Influenza Virus 2019-02-28 Completed [facility], [facility]00 [facility] Free 6 MO-64 YRS PPD (TB) 2018-11-13 Completed [facility] 00:00:00 [facility] PPD (TB) 2018-11-13 Completed [facility] 00:00:00 [facility] PPD (TB) 2018-11-13 Completed [facility] 00:00:00 [facility] PPD (TB) 2018-11-13 Completed [facility] 00:00:00 [facility] PPD (TB) 2018-11-13 Completed [facility] 00:00:00 [facility] PPD (TB) 2018-11-13 Completed [facility] 00:00:00 [facility] PPD (TB) 2018-11-13 Completed [facility] 00:00:00 [facility] PPD (TB) 2018-11-13 Completed [facility] 00:00:00 [facility] PPD (TB) 2018-11-13 Completed [facility] 00:00:00 [facility] PPD (TB) 2018-11-13 Completed [facility] 00:00:00 [facility] PPD (TB) 2018-11-13 Completed [facility] 00:00:00 [facility] PPD (TB) 2018-11-13 Completed [facility] 00:00:00 [facility] PPD (TB) 2018-11-13 Completed [facility] 00:00:00 [facility] PPD (TB) 2018-11-13 Completed [facility] 00:00:00 [facility] PPD (TB) 2018-11-13 Completed [facility] 00:00:00 [facility] PPD (TB) 2018-11-13 Completed [facility] 00:00:00 [facility] PPD (TB) 2018-11-13 Completed [facility] 00:00:00 [facility] PPD (TB) 2018-11-13 Completed [facility] 00:00:00 [facility] PPD (TB) 2018-11-13 Completed [facility] 00:00:00 [facility] PPD (TB) 2018-11-13 Completed [facility] 00:00:00 [facility] PPD (TB) 2018-11-13 Completed [facility] 00:00:00 [facility] PPD (TB) 2018-11-13 Completed [facility] 00:00:00 [facility] PPD (TB) 2018-11-13 Completed [facility] 00:00:00 [facility] PPD (TB) 2018-11-13 Completed [facility] 00:00:00 [facility] PPD (TB) 2018-11-13 Completed [facility] 00:00:00 [facility] PPD (TB) 2018-11-13 Completed [facility] 00:00:00 [facility] PPD (TB) 2018-11-13 Completed [facility] 00:00:00 [facility] PPD (TB) 2018-11-13 Completed [facility] 00:00:00 [facility] PPD (TB) 2018-11-13 Completed [facility] 00:00:00 [facility] PPD (TB) 2018-11-13 Completed [facility] 00:00:00 [facility] PPD (TB) 2018-11-13 Completed [facility] 00:00:00 [facility] PPD (TB) 2018-11-13 Completed [facility] 00:00:00 [facility] PPD (TB) 2018-11-13 Completed [facility] 00:00:00 [facility] PPD (TB) 2018-11-13 Completed [facility] 00:00:00 [facility] PPD (TB) 2018-11-13 Completed [facility] 00:00:00 [facility] PPD (TB) 2018-11-13 Completed [facility] 00:00:00 [facility] PPD (TB) 2018-11-13 Completed [facility] 00:00:00 [facility] PPD (TB) 2018-11-13 Completed [facility] 00:00:00 [facility] PPD (TB) 2018-11-13 Completed [facility] 00:00:00 [facility] PPD (TB) 2018-11-13 Completed [facility] 00:00:00 [facility] PPD (TB) 2018-11-13 Completed [facility] 00:00:00 [facility] PPD (TB) 2018-11-13 Completed [facility] 00:00:00 [facility] PPD (TB) 2018-11-13 Completed [facility] 00:00:00 [facility] PPD (TB) 2018-11-13 Completed [facility] 00:00:00 [facility] PPD (TB) 2018-11-13 Completed [facility] 00:00:00 [facility] PPD (TB) 2018-11-13 Completed [facility] 00:00:00 [facility] PPD (TB) 2018-11-13 Completed [facility] 00:00:00 [facility] PPD (TB) 2018-11-13 Completed [facility] 00:00:00 [facility] PPD (TB) 2018-11-13 Completed [facility] 00:00:00 [facility] HEP B, Adult Dosage 2018-07-31 Completed [facility] of 00:00:00 [facility] HEP B, Adult Dosage 2018-07-31 Completed [facility] of 00:00:00 [facility] HEP B, Adult Dosage 2018-07-31 Completed [facility] of 00:00:00 [facility] HEP B, Adult Dosage 2018-07-31 Completed [facility] of 00:00:00 [facility] HEP B, Adult Dosage 2018-07-31 Completed [facility] of 00:00:00 [facility] HEP B, Adult Dosage 2018-07-31 Completed [facility] of 00:00:00 [facility] HEP B, Adult Dosage 2018-07-31 Completed [facility] of 00:00:00 [facility] HEP B, Adult Dosage 2018-07-31 Completed [facility] of 00:00:00 [facility] HEP B, Adult Dosage 2018-07-31 Completed [facility] of 00:00:00 [facility] HEP B, Adult Dosage 2018-07-31 Completed [facility] of 00:00:00 [facility] HEP B, Adult Dosage 2018-07-31 Completed [facility] of 00:00:00 [facility] HEP B, Adult Dosage 2018-07-31 Completed [facility] of 00:00:00 [facility] HEP B, Adult Dosage 2018-07-31 Completed [facility] of 00:00:00 [facility] HEP B, Adult Dosage 2018-07-31 Completed [facility] of 00:00:00 [facility] HEP B, Adult Dosage 2018-07-31 Completed [facility] of 00:00:00 [facility] HEP B, Adult Dosage 2018-07-31 Completed [facility] of 00:00:00 [facility] HEP B, Adult Dosage 2018-07-31 Completed [facility] of 00:00:00 [facility] HEP B, Adult Dosage 2018-07-31 Completed [facility] of 00:00:00 [facility] HEP B, Adult Dosage 2018-07-31 Completed [facility] of 00:00:00 [facility] HEP B, Adult Dosage 2018-07-31 Completed [facility] of 00:00:00 [facility] HEP B, Adult Dosage 2018-07-31 Completed [facility] of 00:00:00 [facility] HEP B, Adult Dosage 2018-07-31 Completed [facility] of 00:00:00 [facility] HEP B, Adult Dosage 2018-07-31 Completed [facility] of 00:00:00 [facility] HEP B, Adult Dosage 2018-07-31 Completed [facility] of 00:00:00 [facility] HEP B, Adult Dosage 2018-07-31 Completed [facility] of 00:00:00 [facility] HEP B, Adult Dosage 2018-07-31 Completed [facility] of 00:00:00 [facility] HEP B, Adult Dosage 2018-07-31 Completed [facility] of 00:00:00 [facility] HEP B, Adult Dosage 2018-07-31 Completed [facility] of 00:00:00 [facility] HEP B, Adult Dosage 2018-07-31 Completed [facility] of 00:00:00 [facility] HEP B, Adult Dosage 2018-07-31 Completed [facility] of 00:00:00 [facility] HEP B, Adult Dosage 2018-07-31 Completed [facility] of 00:00:00 [facility] HEP B, Adult Dosage 2018-07-31 Completed [facility] of 00:00:00 [facility] HEP B, Adult Dosage 2018-07-31 Completed [facility] of 00:00:00 [facility] HEP B, Adult Dosage 2018-07-31 Completed [facility] of 00:00:00 [facility] HEP B, Adult Dosage 2018-07-31 Completed [facility] of 00:00:00 [facility] HEP B, Adult Dosage 2018-07-31 Completed [facility] of 00:00:00 [facility] HEP B, Adult Dosage 2018-07-31 Completed [facility] of 00:00:00 [facility] HEP B, Adult Dosage 2018-07-31 Completed [facility] of 00:00:00 [facility] HEP B, Adult Dosage 2018-07-31 Completed [facility] of 00:00:00 [facility] HEP B, Adult Dosage 2018-07-31 Completed [facility] of 00:00:00 [facility] HEP B, Adult Dosage 2018-07-31 Completed [facility] of 00:00:00 [facility] HEP B, Adult Dosage 2018-07-31 Completed [facility] of 00:00:00 [facility] HEP B, Adult Dosage 2018-07-31 Completed [facility] of 00:00:00 [facility] HEP B, Adult Dosage 2018-07-31 Completed [facility] of 00:00:00 [facility] HEP B, Adult Dosage 2018-07-31 Completed [facility] of 00:00:00 [facility] HEP B, Adult Dosage 2018-07-31 Completed [facility] of 00:00:00 [facility] HEP B, Adult Dosage 2018-07-31 Completed [facility] of 00:00:00 [facility] HEP B, Adult Dosage 2018-07-31 Completed [facility] of 00:00:00 [facility] HEP B, Adult Dosage 2018-07-31 Completed [facility] of 00:00:00 [facility] HEP B, Adult Dosage 2018-04-03 Completed [facility] of 00:00:00 [facility] HEP B, Adult Dosage 2018-04-03 Completed [facility] of 00:00:00 [facility] HEP B, Adult Dosage 2018-04-03 Completed [facility] of 00:00:00 [facility] HEP B, Adult Dosage 2018-04-03 Completed [facility] of 00:00:00 [facility] HEP B, Adult Dosage 2018-04-03 Completed [facility] rs[facility] of 00:00:00 [facility] HEP B, Adult Dosage 2018-04-03 Completed [facility] of 00:00:00 [facility] HEP B, Adult Dosage 2018-04-03 Completed [facility] of 00:00:00 [facility] HEP B, Adult Dosage 2018-04-03 Completed [facility] of 00:00:00 [facility] HEP B, Adult Dosage 2018-04-03 Completed [facility] of 00:00:00 [facility] HEP B, Adult Dosage 2018-04-03 Completed [facility] of 00:00:00 [facility] HEP B, Adult Dosage 2018-04-03 Completed [facility] of 00:00:00 [facility] HEP B, Adult Dosage 2018-04-03 Completed [facility] of 00:00:00 [facility] HEP B, Adult Dosage 2018-04-03 Completed [facility] of 00:00:00 [facility] HEP B, Adult Dosage 2018-04-03 Completed [facility] of 00:00:00 [facility] HEP B, Adult Dosage 2018-04-03 Completed [facility] of 00:00:00 [facility] HEP B, Adult Dosage 2018-04-03 Completed [facility] of 00:00:00 [facility] HEP B, Adult Dosage 2018-04-03 Completed [facility] of 00:00:00 [facility] HEP B, Adult Dosage 2018-04-03 Completed [facility] rs[facility] of 00:00:00 [facility] HEP B, Adult Dosage 2018-04-03 Completed [facility] of 00:00:00 [facility] HEP B, Adult Dosage 2018-04-03 Completed [facility] of 00:00:00 [facility] HEP B, Adult Dosage 2018-04-03 Completed [facility] of 00:00:00 [facility] HEP B, Adult Dosage 2018-04-03 Completed [facility] of 00:00:00 [facility] HEP B, Adult Dosage 2018-04-03 Completed [facility] of 00:00:00 [facility] HEP B, Adult Dosage 2018-04-03 Completed [facility] of 00:00:00 [facility] HEP B, Adult Dosage 2018-04-03 Completed [facility] of 00:00:00 [facility] HEP B, Adult Dosage 2018-04-03 Completed [facility] of 00:00:00 [facility] HEP B, Adult Dosage 2018-04-03 Completed [facility] of 00:00:00 [facility] HEP B, Adult Dosage 2018-04-03 Completed [facility] of 00:00:00 [facility] HEP B, Adult Dosage 2018-04-03 Completed [facility] of 00:00:00 [facility] HEP B, Adult Dosage 2018-04-03 Completed [facility] of 00:00:00 [facility] HEP B, Adult Dosage 2018-04-03 Completed [facility] of 00:00:00 [facility] HEP B, Adult Dosage 2018-04-03 Completed [facility] of 00:00:00 [facility] HEP B, Adult Dosage 2018-04-03 Completed [facility] of 00:00:00 [facility] HEP B, Adult Dosage 2018-04-03 Completed [facility] of 00:00:00 [facility] HEP B, Adult Dosage 2018-04-03 Completed [facility] of 00:00:00 [facility] HEP B, Adult Dosage 2018-04-03 Completed [facility] of 00:00:00 [facility] HEP B, Adult Dosage 2018-04-03 Completed [facility] of 00:00:00 [facility] HEP B, Adult Dosage 2018-04-03 Completed [facility] of 00:00:00 [facility] HEP B, Adult Dosage 2018-04-03 Completed [facility] of 00:00:00 [facility] HEP B, Adult Dosage 2018-04-03 Completed [facility] of 00:00:00 [facility] HEP B, Adult Dosage 2018-04-03 Completed [facility] of 00:00:00 [facility] HEP B, Adult Dosage 2018-04-03 Completed [facility] of 00:00:00 [facility] HEP B, Adult Dosage 2018-04-03 Completed [facility] of 00:00:00 [facility] HEP B, Adult Dosage 2018-04-03 Completed [facility] of 00:00:00 [facility] HEP B, Adult Dosage 2018-04-03 Completed [facility] of 00:00:00 [facility] HEP B, Adult Dosage 2018-04-03 Completed [facility] of 00:00:00 [facility] HEP B, Adult Dosage 2018-04-03 Completed [facility] 00:00:00 [facility] HEP B, Adult Dosage 2018-04-03 Completed [facility] 00:00:00 [facility] HEP B, Adult Dosage 2018-04-03 Completed [facility] of 00:00:00 [facility] HEP B, Adult Dosage 2018-02-27 Completed [facility] of 00:00:00 [facility] HEP B, Adult Dosage 2018-02-27 Completed [facility] of 00:00:00 [facility] HEP B, Adult Dosage 2018-02-27 Completed [facility] of 00:00:00 [facility] HEP B, Adult Dosage 2018-02-27 Completed [facility] 00:00:00 [facility] HEP B, Adult Dosage 2018-02-27 Completed [facility] of 00:00:00 [facility] HEP B, Adult Dosage 2018-02-27 Completed [facility] 00:00:00 [facility] HEP B, Adult Dosage 2018-02-27 Completed [facility] of 00:00:00 [facility] HEP B, Adult Dosage 2018-02-27 Completed [facility] 00:00:00 [facility] HEP B, Adult Dosage 2018-02-27 Completed [facility] of 00:00:00 [facility] HEP B, Adult Dosage 2018-02-27 Completed [facility] of 00:00:00 [facility] HEP B, Adult Dosage 2018-02-27 Completed [facility] of 00:00:00 [facility] HEP B, Adult Dosage 2018-02-27 Completed [facility] of 00:00:00 [facility] HEP B, Adult Dosage 2018-02-27 Completed [facility] of 00:00:00 [facility] HEP B, Adult Dosage 2018-02-27 Completed [facility] of 00:00:00 [facility] HEP B, Adult Dosage 2018-02-27 Completed [facility] of 00:00:00 [facility] HEP B, Adult Dosage 2018-02-27 Completed [facility] of 00:00:00 [facility] HEP B, Adult Dosage 2018-02-27 Completed [facility] 00:00:00 [facility] HEP B, Adult Dosage 2018-02-27 Completed [facility] of 00:00:00 [facility] HEP B, Adult Dosage 2018-02-27 Completed [facility] 00:00:00 [facility] HEP B, Adult Dosage 2018-02-27 Completed [facility] 00:00:00 [facility] HEP B, Adult Dosage 2018-02-27 Completed [facility] 00:00:00 [facility] HEP B, Adult Dosage 2018-02-27 Completed [facility] 00:00:00 [facility] HEP B, Adult Dosage 2018-02-27 Completed [facility] 00:00:00 [facility] HEP B, Adult Dosage 2018-02-27 Completed [facility] 00:00:00 [facility] HEP B, Adult Dosage 2018-02-27 Completed [facility] 00:00:00 [facility] HEP B, Adult Dosage 2018-02-27 Completed [facility] 00:00:00 [facility] HEP B, Adult Dosage 2018-02-27 Completed [facility] 00:00:00 [facility] HEP B, Adult Dosage 2018-02-27 Completed [facility] of 00:00:00 [facility] HEP B, Adult Dosage 2018-02-27 Completed [facility] 00:00:00 [facility] HEP B, Adult Dosage 2018-02-27 Completed [facility] 00:00:00 [facility] HEP B, Adult Dosage 2018-02-27 Completed [facility] 00:00:00 [facility] HEP B, Adult Dosage 2018-02-27 Completed [facility] 00:00:00 [facility] HEP B, Adult Dosage 2018-02-27 Completed [facility] 00:00:00 [facility] HEP B, Adult Dosage 2018-02-27 Completed [facility] 00:00:00 [facility] HEP B, Adult Dosage 2018-02-27 Completed [facility] 00:00:00 [facility] HEP B, Adult Dosage 2018-02-27 Completed [facility] 00:00:00 [facility] HEP B, Adult Dosage 2018-02-27 Completed [facility] 00:00:00 [facility] HEP B, Adult Dosage 2018-02-27 Completed [facility] 00:00:00 [facility] HEP B, Adult Dosage 2018-02-27 Completed [facility] 00:00:00 [facility] HEP B, Adult Dosage 2018-02-27 Completed [facility] 00:00:00 [facility] HEP B, Adult Dosage 2018-02-27 Completed [facility] 00:00:00 [facility] HEP B, Adult Dosage 2018-02-27 Completed [facility] 00:00:00 [facility] HEP B, Adult Dosage 2018-02-27 Completed [facility] 00:00:00 [facility] HEP B, Adult Dosage 2018-02-27 Completed [facility] 00:00:00 [facility] HEP B, Adult Dosage 2018-02-27 Completed [facility] 00:00:00 [facility] HEP B, Adult Dosage 2018-02-27 Completed [facility] 00:00:00 [facility] HEP B, Adult Dosage 2018-02-27 Completed [facility] 00:00:00 [facility] HEP B, Adult Dosage 2018-02-27 Completed [facility] 00:00:00 [facility] HEP B, Adult Dosage 2018-02-27 Completed [facility] 00:00:00 [facility] HEP B, Adult Dosage 2018-01-30 Completed [facility] 00:00:00 [facility] HEP B, Adult Dosage 2018-01-30 Completed [facility] 00:00:00 [facility] HEP B, Adult Dosage 2018-01-30 Completed [facility] 00:00:00 [facility] HEP B, Adult Dosage 2018-01-30 Completed [facility] 00:00:00 [facility] HEP B, Adult Dosage 2018-01-30 Completed [facility] 00:00:00 [facility] HEP B, Adult Dosage 2018-01-30 Completed [facility] 00:00:00 [facility] HEP B, Adult Dosage 2018-01-30 Completed [facility] 00:00:00 [facility] HEP B, Adult Dosage 2018-01-30 Completed [facility] 00:00:00 [facility] HEP B, Adult Dosage 2018-01-30 Completed [facility] 00:00:00 [facility] HEP B, Adult Dosage 2018-01-30 Completed [facility] 00:00:00 [facility] HEP B, Adult Dosage 2018-01-30 Completed [facility] 00:00:00 [facility] HEP B, Adult Dosage 2018-01-30 Completed [facility] 00:00:00 [facility] HEP B, Adult Dosage 2018-01-30 Completed [facility] 00:00:00 [facility] HEP B, Adult Dosage 2018-01-30 Completed [facility] 00:00:00 [facility] HEP B, Adult Dosage 2018-01-30 Completed [facility] 00:00:00 [facility] HEP B, Adult Dosage 2018-01-30 Completed [facility] 00:00:00 [facility] HEP B, Adult Dosage 2018-01-30 Completed [facility] 00:00:00 [facility] HEP B, Adult Dosage 2018-01-30 Completed [facility] 00:00:00 [facility] HEP B, Adult Dosage 2018-01-30 Completed [facility] 00:00:00 [facility] HEP B, Adult Dosage 2018-01-30 Completed [facility] 00:00:00 [facility] HEP B, Adult Dosage 2018-01-30 Completed [facility] 00:00:00 [facility] HEP B, Adult Dosage 2018-01-30 Completed [facility] 00:00:00 [facility] HEP B, Adult Dosage 2018-01-30 Completed [facility] 00:00:00 [facility] HEP B, Adult Dosage 2018-01-30 Completed [facility] 00:00:00 [facility] HEP B, Adult Dosage 2018-01-30 Completed [facility] 00:00:00 [facility] HEP B, Adult Dosage 2018-01-30 Completed [facility] 00:00:00 [facility] HEP B, Adult Dosage 2018-01-30 Completed [facility] 00:00:00 [facility] HEP B, Adult Dosage 2018-01-30 Completed [facility] 00:00:00 [facility] HEP B, Adult Dosage 2018-01-30 Completed [facility] 00:00:00 [facility] HEP B, Adult Dosage 2018-01-30 Completed [facility] 00:00:00 [facility] HEP B, Adult Dosage 2018-01-30 Completed [facility] 00:00:00 [facility] HEP B, Adult Dosage 2018-01-30 Completed [facility] 00:00:00 [facility] HEP B, Adult Dosage 2018-01-30 Completed [facility] 00:00:00 [facility] HEP B, Adult Dosage 2018-01-30 Completed [facility] 00:00:00 [facility] HEP B, Adult Dosage 2018-01-30 Completed [facility] 00:00:00 [facility] HEP B, Adult Dosage 2018-01-30 Completed [facility] 00:00:00 [facility] HEP B, Adult Dosage 2018-01-30 Completed [facility] 00:00:00 [facility] HEP B, Adult Dosage 2018-01-30 Completed [facility] 00:00:00 [facility] HEP B, Adult Dosage 2018-01-30 Completed [facility] 00:00:00 [facility] HEP B, Adult Dosage 2018-01-30 Completed [facility] 00:00:00 [facility] HEP B, Adult Dosage 2018-01-30 Completed [facility] 00:00:00 [facility] HEP B, Adult Dosage 2018-01-30 Completed [facility] 00:00:00 [facility] HEP B, Adult Dosage 2018-01-30 Completed [facility] 00:00:00 [facility] HEP B, Adult Dosage 2018-01-30 Completed [facility] 00:00:00 [facility] HEP B, Adult Dosage 2018-01-30 Completed [facility] 00:00:00 [facility] HEP B, Adult Dosage 2018-01-30 Completed [facility] 00:00:00 [facility] HEP B, Adult Dosage 2018-01-30 Completed [facility] 00:00:00 [facility] HEP B, Adult Dosage 2018-01-30 Completed [facility] 00:00:00 [facility] HEP B, Adult Dosage 2018-01-30 Completed [facility] 00:00:00 [facility] Influenza Virus 2018-01-27 Completed [facility], 00:00:00 [place] [facility] Free 6 MO-64 YRS Influenza Virus 2018-01-27 Completed [facility], 00:00:00 [facility] Free 6 MO-64 YRS Influenza Virus 2018-01-27 Completed [facility], 00:00:00 [facility] Free 6 MO-64 YRS Influenza Virus 2018-01-27 Completed [facility], 00:00:00 [facility] Free 6 MO-64 YRS Influenza Virus 2018-01-27 Completed [facility], 00:00:00 [facility] Free 6 MO-64 YRS Influenza Virus 2018-01-27 Completed [facility], 00:00:00 [facility] Free 6 MO-64 YRS Influenza Virus 2018-01-27 Completed [facility], 00:00:00 [facility] Free 6 MO-64 YRS Influenza Virus 2018-01-27 Completed [facility], 00:00:00 [facility] Free 6 MO-64 YRS Influenza Virus 2018-01-27 Completed [facility], 00:00:00 [place] [facility] Free 6 MO-64 YRS Influenza Virus 2018-01-27 Completed [facility], 00:00:00 [facility] Free 6 MO-64 YRS Influenza Virus 2018-01-27 Completed [facility], 00:00:00 [facility] Free 6 MO-64 YRS Influenza Virus 2018-01-27 Completed [facility], 00:00:00 [place] [facility] Free 6 MO-64 YRS Influenza Virus 2018-01-27 Completed [facility], 00:00:00 [place] [facility] Free 6 MO-64 YRS Influenza Virus 2018-01-27 Completed [facility], 00:00:00 [place] [facility] Free 6 MO-64 YRS Influenza Virus 2018-01-27 Completed [facility], 00:00:00 [place] [facility] Free 6 MO-64 YRS Influenza Virus 2018-01-27 Completed [facility], 00:[facility]:00 [place] [facility] Free 6 MO-64 YRS Influenza Virus 2018-01-27 Completed [facility], 00:00:00 [place] [facility] Free 6 MO-64 YRS Influenza Virus 2018-01-27 Completed [facility], 00:00:00 [place] [facility] Free 6 MO-64 YRS Influenza Virus 2018-01-27 Completed [facility], 00:00:00 [place] [facility] Free 6 MO-64 YRS Influenza Virus 2018-01-27 Completed [facility], 00:00:00 [place] [facility] Free 6 MO-64 YRS Influenza Virus 2018-01-27 Completed [facility], 00:00:00 [place] [facility] Free 6 MO-64 YRS Influenza Virus 2018-01-27 Completed [facility], 00:00:00 [place] [facility] Free 6 MO-64 YRS Influenza Virus 2018-01-27 Completed [facility], 00:00:00 [place] [facility]X [facility] Free 6 MO-64 YRS Influenza Virus 2018-01-27 Completed [facility], 00:00:00 [place] [facility] Free 6 MO-64 YRS Influenza Virus 2018-01-27 Completed [facility], 00:00:00 [place] [facility]X [facility] Free 6 MO-64 YRS Influenza Virus 2018-01-27 Completed [facility], 00:00:00 [place] [facility] Free 6 MO-64 YRS Influenza Virus 2018-01-27 Completed [facility], 00:00:00 [place] [facility]X [facility] Free 6 MO-64 YRS Influenza Virus 2018-01-27 Completed [facility], 00:00:00 [place] [facility]X [facility] Free 6 MO-64 YRS Influenza Virus 2018-01-27 Completed [facility], 00:00:00 [place] [facility] ABX [facility] Free 6 MO-64 YRS Influenza Virus 2018-01-27 Completed [facility], 00:00:00 [place] [facility] ABX [facility] Free 6 MO-64 YRS Influenza Virus 2018-01-27 Completed [facility], 00:00:00 [place] [facility] ABX [facility] Free 6 MO-64 YRS Influenza Virus 2018-01-27 Completed [facility], 00:00:00 [place] [facility] ABX [facility] Free 6 MO-64 YRS Influenza Virus 2018-01-27 Completed [facility], 00:00:00 [place] [facility] ABX [facility] Free 6 MO-64 YRS Influenza Virus 2018-01-27 Completed [facility], 00:00:00 [place] [facility] ABX [facility] Free 6 MO-64 YRS Influenza Virus 2018-01-27 Completed [facility], 00:00:00 [place] [facility] Free 6 MO-64 YRS Influenza Virus 2018-01-27 Completed [facility], 00:00:00 [place] [facility] ABX [facility] Free 6 MO-64 YRS Influenza Virus 2018-01-27 Completed [facility], 00:00:00 [place] [facility] ABX [facility] Free 6 MO-64 YRS Influenza Virus 2018-01-27 Completed [facility], 00:00:00 [place] [facility] ABX [facility] Free 6 MO-64 YRS Influenza Virus 2018-01-27 Completed [facility], 00:00:00 [place] [facility] ABX [facility] Free 6 MO-64 YRS Influenza Virus 2018-01-27 Completed [facility], 00:00:00 [place] [facility] ABX [facility] Free 6 MO-64 YRS Influenza Virus 2018-01-27 Completed [facility], 00:00:00 [place] [facility] ABX [facility] Free 6 MO-64 YRS Influenza Virus 2018-01-27 Completed [facility], 00:00:00 [place] [facility] ABX [facility] Free 6 MO-64 YRS Influenza Virus 2018-01-27 Completed [facility], 00:00:00 [place] [facility] ABX [facility] Free 6 MO-64 YRS Influenza Virus 2018-01-27 Completed [facility], 00:00:00 [place] [facility] ABX [facility] Free 6 MO-64 YRS Influenza Virus 2018-01-27 Completed [facility], 00:00:00 [place] [facility] ABX [facility] Free 6 MO-64 YRS Influenza Virus 2018-01-27 Completed [facility], 00:00:00 [place] [facility] ABX [facility] Free 6 MO-64 YRS Influenza Virus 2018-01-27 Completed [facility], 00:00:00 [place] [facility] ABX [facility] Free 6 MO-64 YRS Influenza Virus 2018-01-27 Completed [facility], 00:00:00 [place] [facility]X [facility] Free 6 MO-64 YRS Influenza Virus 2018-01-27 Completed [facility], 00:00:00 [place] [facility] Free 6 MO-64 YRS PPD (TB) 2018-01-19 Completed [facility] 00:00:00 [facility] PPD (TB) 2018-01-19 Completed [facility] 00:00:00 [facility] PPD (TB) 2018-01-19 Completed [facility] 00:00:00 [facility] PPD (TB) 2018-01-19 Completed [facility] 00:00:00 [facility] PPD (TB) 2018-01-19 Completed [facility] 00:00:00 [facility] PPD (TB) 2018-01-19 Completed [facility] 00:00:00 [facility] PPD (TB) 2018-01-19 Completed [facility] 00:00:00 [facility] PPD (TB) 2018-01-19 Completed [facility] 00:00:00 [facility] PPD (TB) 2018-01-19 Completed [facility] 00:00:00 [facility] PPD (TB) 2018-01-19 Completed [facility] 00:00:00 [facility] PPD (TB) 2018-01-19 Completed [facility] 00:00:00 [facility] PPD (TB) 2018-01-19 Completed [facility] 00:00:00 [facility] PPD (TB) 2018-01-19 Completed [facility] 00:00:00 [facility] PPD (TB) 2018-01-19 Completed [facility] 00:00:00 [facility] PPD (TB) 2018-01-19 Completed [facility] 00:00:00 [facility] PPD (TB) 2018-01-19 Completed [facility] 00:00:00 [facility] PPD (TB) 2018-01-19 Completed [facility] 00:00:00 [facility] PPD (TB) 2018-01-19 Completed [facility] 00:00:00 [facility] PPD (TB) 2018-01-19 Completed [facility] 00:00:00 [facility] PPD (TB) 2018-01-19 Completed [facility] 00:00:00 [facility] PPD (TB) 2018-01-19 Completed [facility] 00:00:00 [facility] PPD (TB) 2018-01-19 Completed [facility] 00:00:00 [facility] PPD (TB) 2018-01-19 Completed [facility] 00:00:00 [facility] PPD (TB) 2018-01-19 Completed [facility] 00:00:00 [facility] PPD (TB) 2018-01-19 Completed [facility] 00:00:00 [facility] PPD (TB) 2018-01-19 Completed [facility] 00:00:00 [facility] PPD (TB) 2018-01-19 Completed [facility] 00:00:00 [facility] PPD (TB) 2018-01-19 Completed [facility] 00:00:00 [facility] PPD (TB) 2018-01-19 Completed [facility] 00:00:00 [facility] PPD (TB) 2018-01-19 Completed [facility] 00:00:00 [facility] PPD (TB) 2018-01-19 Completed [facility] 00:00:00 [facility] PPD (TB) 2018-01-19 Completed [facility] 00:00:00 [facility] PPD (TB) 2018-01-19 Completed [facility] 00:00:00 [facility] PPD (TB) 2018-01-19 Completed [facility] 00:00:00 [facility] PPD (TB) 2018-01-19 Completed [facility] 00:00:00 [facility] PPD (TB) 2018-01-19 Completed [facility] 00:00:00 [facility] PPD (TB) 2018-01-19 Completed [facility] 00:00:00 [facility] PPD (TB) 2018-01-19 Completed [facility] 00:00:00 [facility] PPD (TB) 2018-01-19 Completed [facility] 00:00:00 [facility] PPD (TB) 2018-01-19 Completed [facility] 00:00:00 [facility] PPD (TB) 2018-01-19 Completed [facility] 00:00:00 [facility] PPD (TB) 2018-01-19 Completed [facility] 00:00:00 [facility] PPD (TB) 2018-01-19 Completed [facility] 00:00:00 [facility] PPD (TB) 2018-01-19 Completed [facility] 00:00:00 [facility] PPD (TB) 2018-01-19 Completed [facility] 00:00:00 [facility] PPD (TB) 2018-01-19 Completed [facility] 00:00:00 [facility] PPD (TB) 2018-01-19 Completed [facility] 00:00:00 [facility] PPD (TB) 2018-01-19 Completed [facility] 00:00:00 [facility] PPD (TB) 2018-01-19 Completed [facility] 00:00:00 [facility] HEP B, Adult Dosage 2017-06-11 Completed [facility] 00:00:00 [facility] HEP B, Adult Dosage 2017-06-11 Completed [facility] 00:00:00 [facility] HEP B, Adult Dosage 2017-06-11 Completed [facility] 00:00:00 [facility] HEP B, Adult Dosage 2017-06-11 Completed [facility] 00:00:00 [facility] HEP B, Adult Dosage 2017-06-11 Completed [facility] 00:00:00 [facility] HEP B, Adult Dosage 2017-06-11 Completed [facility] 00:00:00 [facility] HEP B, Adult Dosage 2017-06-11 Completed [facility] 00:00:00 [facility] HEP B, Adult Dosage 2017-06-11 Completed [facility] of 00:00:00 [facility] HEP B, Adult Dosage 2017-06-11 Completed [facility] 00:00:00 [facility] HEP B, Adult Dosage 2017-06-11 Completed [facility] of 00:00:00 [facility] HEP B, Adult Dosage 2017-06-11 Completed [facility] of 00:00:00 [facility] HEP B, Adult Dosage 2017-06-11 Completed [facility] of 00:00:00 [facility] HEP B, Adult Dosage 2017-06-11 Completed [facility] of 00:00:00 [facility] HEP B, Adult Dosage 2017-06-11 Completed [facility] of 00:00:00 [facility] HEP B, Adult Dosage 2017-06-11 Completed [facility] of 00:00:00 [facility] HEP B, Adult Dosage 2017-06-11 Completed [facility] of 00:00:00 [facility] HEP B, Adult Dosage 2017-06-11 Completed [facility] of 00:00:00 [facility] HEP B, Adult Dosage 2017-06-11 Completed [facility] of 00:00:00 [facility] HEP B, Adult Dosage 2017-06-11 Completed [facility] of 00:00:00 [facility] HEP B, Adult Dosage 2017-06-11 Completed [facility] of 00:00:00 [facility] HEP B, Adult Dosage 2017-06-11 Completed [facility] of 00:00:00 [facility] HEP B, Adult Dosage 2017-06-11 Completed [facility] of 00:00:00 [facility] HEP B, Adult Dosage 2017-06-11 Completed [facility] of 00:00:00 [facility] HEP B, Adult Dosage 2017-06-11 Completed [facility] of 00:00:00 [facility] HEP B, Adult Dosage 2017-06-11 Completed [facility] of 00:00:00 [facility] HEP B, Adult Dosage 2017-06-11 Completed [facility] of 00:00:00 [facility] HEP B, Adult Dosage 2017-06-11 Completed [facility] of 00:00:00 [facility] HEP B, Adult Dosage 2017-06-11 Completed [facility] of 00:00:00 [facility] HEP B, Adult Dosage 2017-06-11 Completed [facility] of 00:00:00 [facility] HEP B, Adult Dosage 2017-06-11 Completed [facility] of 00:00:00 [facility] HEP B, Adult Dosage 2017-06-11 Completed [facility] of 00:00:00 [facility] HEP B, Adult Dosage 2017-06-11 Completed [facility] of 00:00:00 [facility] HEP B, Adult Dosage 2017-06-11 Completed [facility] of 00:00:00 [facility] HEP B, Adult Dosage 2017-06-11 Completed [facility] of 00:00:00 [facility] HEP B, Adult Dosage 2017-06-11 Completed [facility] of 00:00:00 [facility] HEP B, Adult Dosage 2017-06-11 Completed [facility] of 00:00:00 [facility] HEP B, Adult Dosage 2017-06-11 Completed [facility] of 00:00:00 [facility] HEP B, Adult Dosage 2017-06-11 Completed [facility] of 00:00:00 [facility] HEP B, Adult Dosage 2017-06-11 Completed [facility] of 00:00:00 [facility] HEP B, Adult Dosage 2017-06-11 Completed [facility] of 00:00:00 [facility] HEP B, Adult Dosage 2017-06-11 Completed [facility] of 00:00:00 [facility] HEP B, Adult Dosage 2017-06-11 Completed [facility] of 00:00:00 [facility] HEP B, Adult Dosage 2017-06-11 Completed [facility] of 00:00:00 [facility] HEP B, Adult Dosage 2017-06-11 Completed [facility] of 00:00:00 [facility] HEP B, Adult Dosage 2017-06-11 Completed [facility] of 00:00:00 [facility] HEP B, Adult Dosage 2017-06-11 Completed [facility] of 00:00:00 [facility] HEP B, Adult Dosage 2017-06-11 Completed [facility] of 00:00:00 [facility] HEP B, Adult Dosage 2017-06-11 Completed [facility] of 00:00:00 [facility] HEP B, Adult Dosage 2017-06-11 Completed [facility] 00:00:00 [facility] HEP B, Adult Dosage 2017 Completed [facility] of 00:00:00 [facility] HEP B, Adult Dosage 2017 Completed [facility] of 00:00:00 [facility] HEP B, Adult Dosage 2017 Completed [facility] of 00:00:00 [facility] HEP B, Adult Dosage 2017 Completed [facility] of 00:00:00 [facility] HEP B, Adult Dosage 2017 Completed [facility] of 00:00:00 [facility] HEP B, Adult Dosage 2017 Completed [facility] of 00:00:00 [facility] HEP B, Adult Dosage 2017 Completed [facility] of 00:00:00 [facility] HEP B, Adult Dosage 2017 Completed [facility] 00:00:00 [facility] HEP B, Adult Dosage 2017 Completed [facility] of 00:00:00 [facility] HEP B, Adult Dosage 2017 Completed [facility] of 00:00:00 [facility] HEP B, Adult Dosage 2017 Completed [facility] of 00:00:00 [facility] HEP B, Adult Dosage 2017 Completed [facility] of 00:00:00 [facility] HEP B, Adult Dosage 2017 Completed [facility] of 00:00:00 [facility] HEP B, Adult Dosage 2017 Completed [facility] of 00:00:00 [facility] HEP B, Adult Dosage 2017 Completed [facility] 00:00:00 [facility] HEP B, Adult Dosage 2017 Completed [facility] 00:00:00 [facility] HEP B, Adult Dosage 2017 Completed [facility] of 00:00:00 [facility] HEP B, Adult Dosage 2017 Completed [facility] 00:00:00 [facility] HEP B, Adult Dosage 2017 Completed [facility] of 00:00:00 [facility] HEP B, Adult Dosage 2017 Completed [facility] 00:00:00 [facility] HEP B, Adult Dosage 2017 Completed [facility] 00:00:00 [facility] HEP B, Adult Dosage 2017 Completed [facility] of 00:00:00 [facility] HEP B, Adult Dosage 2017 Completed [facility] 00:00:00 [facility] HEP B, Adult Dosage 2017 Completed [facility] 00:00:00 [facility] HEP B, Adult Dosage 2017 Completed [facility] 00:00:00 [facility] HEP B, Adult Dosage 2017 Completed [facility] 00:00:00 [facility] HEP B, Adult Dosage 2017 Completed [facility] 00:00:00 [facility] HEP B, Adult Dosage 2017 Completed [facility] 00:00:00 [facility] HEP B, Adult Dosage 2017 Completed [facility] 00:00:00 [facility] HEP B, Adult Dosage 2017 Completed [facility] 00:00:00 [facility] HEP B, Adult Dosage 2017 Completed [facility] 00:00:00 [facility] HEP B, Adult Dosage 2017 Completed [facility] 00:00:00 [facility] HEP B, Adult Dosage 2017 Completed [facility] 00:00:00 [facility] HEP B, Adult Dosage 2017 Completed [facility] 00:00:00 [facility] HEP B, Adult Dosage 2017 Completed [facility] 00:00:00 [facility] HEP B, Adult Dosage 2017 Completed [facility] 00:00:00 [facility] HEP B, Adult Dosage 2017 Completed [facility] 00:00:00 [facility] HEP B, Adult Dosage 2017 Completed [facility] 00:00:00 [facility] HEP B, Adult Dosage 2017 Completed [facility] 00:00:00 [facility] HEP B, Adult Dosage 2017 Completed [facility] 00:00:00 [facility] HEP B, Adult Dosage 2017 Completed [facility] 00:00:00 [facility] HEP B, Adult Dosage 2017 Completed [facility] 00:00:00 [facility] HEP B, Adult Dosage 2017 Completed [facility] 00:00:00 [facility] HEP B, Adult Dosage 2017 Completed [facility] 00:00:00 [facility] HEP B, Adult Dosage 2017 Completed [facility] 00:00:00 [facility] HEP B, Adult Dosage 2017 Completed [facility] 00:00:00 [facility] HEP B, Adult Dosage 2017 Completed [facility] 00:00:00 [facility] HEP B, Adult Dosage 2017 Completed [facility] 00:00:00 [facility] HEP B, Adult Dosage 2017 Completed [facility] 00:00:00 [facility] HEP B, Adult Dosage 2017-01-27 Completed [facility] 00:00:00 [facility] HEP B, Adult Dosage 2017-01-27 Completed [facility] 00:00:00 [facility] HEP B, Adult Dosage 2017-01-27 Completed [facility] 00:00:00 [facility] HEP B, Adult Dosage 2017-01-27 Completed [facility] 00:00:00 [facility] HEP B, Adult Dosage 2017-01-27 Completed [facility] 00:00:00 [facility] HEP B, Adult Dosage 2017-01-27 Completed [facility] 00:00:00 [facility] HEP B, Adult Dosage 2017-01-27 Completed [facility] 00:00:00 [facility] HEP B, Adult Dosage 2017-01-27 Completed [facility] 00:00:00 [facility] HEP B, Adult Dosage 2017-01-27 Completed [facility] 00:00:00 [facility] HEP B, Adult Dosage 2017-01-27 Completed [facility] 00:00:00 [facility] HEP B, Adult Dosage 2017-01-27 Completed [facility] 00:00:00 [facility] HEP B, Adult Dosage 2017-01-27 Completed [facility] 00:00:00 [facility] HEP B, Adult Dosage 2017-01-27 Completed [facility] 00:00:00 [facility] HEP B, Adult Dosage 2017-01-27 Completed [facility] 00:00:00 [facility] HEP B, Adult Dosage 2017-01-27 Completed [facility] 00:00:00 [facility] HEP B, Adult Dosage 2017-01-27 Completed [facility] 00:00:00 [facility] HEP B, Adult Dosage 2017-01-27 Completed [facility] 00:00:00 [facility] HEP B, Adult Dosage 2017-01-27 Completed [facility] 00:00:00 [facility] HEP B, Adult Dosage 2017-01-27 Completed [facility] 00:00:00 [facility] HEP B, Adult Dosage 2017-01-27 Completed [facility] 00:00:00 [facility] HEP B, Adult Dosage 2017-01-27 Completed [facility] 00:00:00 [facility] HEP B, Adult Dosage 2017-01-27 Completed [facility] 00:00:00 [facility] HEP B, Adult Dosage 2017-01-27 Completed [facility] 00:00:00 [facility] HEP B, Adult Dosage 2017-01-27 Completed [facility] 00:00:00 [facility] HEP B, Adult Dosage 2017-01-27 Completed [facility] 00:00:00 [facility] HEP B, Adult Dosage 2017-01-27 Completed [facility] 00:00:00 [facility] HEP B, Adult Dosage 2017-01-27 Completed [facility] 00:00:00 [facility] HEP B, Adult Dosage 2017-01-27 Completed [facility] 00:00:00 [facility] HEP B, Adult Dosage 2017-01-27 Completed [facility] 00:00:00 [facility] HEP B, Adult Dosage 2017-01-27 Completed [facility] 00:00:00 [facility] HEP B, Adult Dosage 2017-01-27 Completed [facility] 00:00:00 [facility] HEP B, Adult Dosage 2017-01-27 Completed [facility] 00:00:00 [facility] HEP B, Adult Dosage 2017-01-27 Completed [facility] 00:00:00 [facility] HEP B, Adult Dosage 2017-01-27 Completed [facility] 00:00:00 [facility] HEP B, Adult Dosage 2017-01-27 Completed [facility] 00:00:00 [facility] HEP B, Adult Dosage 2017-01-27 Completed [facility] 00:00:00 [facility] HEP B, Adult Dosage 2017-01-27 Completed [facility] 00:00:00 [facility] HEP B, Adult Dosage 2017-01-27 Completed [facility] 00:00:00 [facility] HEP B, Adult Dosage 2017-01-27 Completed [facility] 00:00:00 [facility] HEP B, Adult Dosage 2017-01-27 Completed [facility] 00:00:00 [facility] HEP B, Adult Dosage 2017-01-27 Completed [facility] 00:00:00 [facility] HEP B, Adult Dosage 2017-01-27 Completed [facility] 00:00:00 [facility] HEP B, Adult Dosage 2017-01-27 Completed [facility] 00:00:00 [facility] HEP B, Adult Dosage 2017-01-27 Completed [facility] 00:00:00 [facility] HEP B, Adult Dosage 2017-01-27 Completed [facility] 00:00:00 [facility] HEP B, Adult Dosage 2017-01-27 Completed [facility] 00:00:00 [facility] HEP B, Adult Dosage 2017-01-27 Completed [facility] 00:00:00 [facility] HEP B, Adult Dosage 2017-01-27 Completed [facility] 00:00:00 [facility] HEP B, Adult Dosage 2017-01-27 Completed [facility] 00:00:00 [facility] HEP B, Adult Dosage 2016-11-22 Completed [facility] 00:00:00 [facility] HEP B, Adult Dosage 2016-11-22 Completed [facility] 00:00:00 [facility] HEP B, Adult Dosage 2016-11-22 Completed [facility] 00:00:00 [facility] HEP B, Adult Dosage 2016-11-22 Completed [facility] 00:00:00 [facility] HEP B, Adult Dosage 2016-11-22 Completed [facility] 00:00:00 [facility] HEP B, Adult Dosage 2016-11-22 Completed [facility] 00:00:00 [facility] HEP B, Adult Dosage 2016-11-22 Completed [facility] 00:00:00 [facility] HEP B, Adult Dosage 2016-11-22 Completed [facility] 00:00:00 [facility] HEP B, Adult Dosage 2016-11-22 Completed [facility] 00:00:00 [facility] HEP B, Adult Dosage 2016-11-22 Completed [facility] 00:00:00 [facility] HEP B, Adult Dosage 2016-11-22 Completed [facility] 00:00:00 [facility] HEP B, Adult Dosage 2016-11-22 Completed [facility] 00:00:00 [facility] HEP B, Adult Dosage 2016-11-22 Completed [facility] 00:00:00 [facility] HEP B, Adult Dosage 2016-11-22 Completed [facility] 00:00:00 [facility] HEP B, Adult Dosage 2016-11-22 Completed [facility] 00:00:00 [facility] HEP B, Adult Dosage 2016-11-22 Completed [facility] 00:00:00 [facility] HEP B, Adult Dosage 2016-11-22 Completed [facility] 00:00:00 [facility] HEP B, Adult Dosage 2016-11-22 Completed [facility] 00:00:00 [facility] HEP B, Adult Dosage 2016-11-22 Completed [facility] 00:00:00 [facility] HEP B, Adult Dosage 2016-11-22 Completed [facility] 00:00:00 [facility] HEP B, Adult Dosage 2016-11-22 Completed [facility] 00:00:00 [facility] HEP B, Adult Dosage 2016-11-22 Completed [facility] 00:00:00 [facility] HEP B, Adult Dosage 2016-11-22 Completed [facility] 00:00:00 [facility] HEP B, Adult Dosage 2016-11-22 Completed [facility] 00:00:00 [facility] HEP B, Adult Dosage 2016-11-22 Completed [facility] 00:00:00 [facility] HEP B, Adult Dosage 2016-11-22 Completed [facility] 00:00:00 [facility] HEP B, Adult Dosage 2016-11-22 Completed [facility] 00:00:00 [facility] HEP B, Adult Dosage 2016-11-22 Completed [facility] 00:[facility]:00 [facility] HEP B, Adult Dosage 2016-11-22 Completed [facility] 00:00:00 [facility] HEP B, Adult Dosage 2016-11-22 Completed [facility] 00:00:00 [facility] HEP B, Adult Dosage 2016-11-22 Completed [facility] 00:00:00 [facility] HEP B, Adult Dosage 2016-11-22 Completed [facility] 00:00:00 [facility] HEP B, Adult Dosage 2016-11-22 Completed [facility] 00:00:00 [facility] HEP B, Adult Dosage 2016-11-22 Completed [facility] 00:00:00 [facility] HEP B, Adult Dosage 2016-11-22 Completed [facility] 00:00:00 [facility] HEP B, Adult Dosage 2016-11-22 Completed [facility] 00:00:00 [facility] HEP B, Adult Dosage 2016-11-22 Completed [facility] 00:00:00 [facility] HEP B, Adult Dosage 2016-11-22 Completed [facility] 00:00:00 [facility] HEP B, Adult Dosage 2016-11-22 Completed [facility] 00:00:00 [facility] HEP B, Adult Dosage 2016-11-22 Completed [facility] 00:00:00 [facility] HEP B, Adult Dosage 2016-11-22 Completed [facility] 00:00:00 [facility] HEP B, Adult Dosage 2016-11-22 Completed [facility] 00:00:00 [facility] HEP B, Adult Dosage 2016-11-22 Completed [facility] 00:00:00 [facility] HEP B, Adult Dosage 2016-11-22 Completed [facility] 00:00:00 [facility] HEP B, Adult Dosage 2016-11-22 Completed [facility] 00:00:00 [facility] HEP B, Adult Dosage 2016-11-22 Completed [facility] 00:00:00 [facility] HEP B, Adult Dosage 2016-11-22 Completed [facility] 00:00:00 [facility] HEP B, Adult Dosage 2016-11-22 Completed [facility] 00:00:00 [facility] HEP B, Adult Dosage 2016-11-22 Completed [facility] 00:00:00 [facility] PPD (TB) 2016-05-13 Completed [facility] 00:00:00 [facility] PPD (TB) 2016-05-13 Completed [facility] 00:00:00 [facility] PPD (TB) 2016-05-13 Completed [facility] 00:00:00 [facility] PPD (TB) 2016-05-13 Completed [facility] 00:00:00 [facility] PPD (TB) 2016-05-13 Completed [facility] 00:00:00 [facility] PPD (TB) 2016-05-13 Completed [facility] 00:00:00 [facility] PPD (TB) 2016-05-13 Completed [facility] 00:00:00 [facility] PPD (TB) 2016-05-13 Completed [facility] 00:00:00 [facility] PPD (TB) 2016-05-13 Completed [facility] 00:00:00 [facility] PPD (TB) 2016-05-13 Completed [facility] 00:00:00 [facility] PPD (TB) 2016-05-13 Completed [facility] 00:00:00 [facility] PPD (TB) 2016-05-13 Completed [facility] 00:00:00 [facility] PPD (TB) 2016-05-13 Completed [facility] 00:00:00 [facility] PPD (TB) 2016-05-13 Completed [facility] 00:00:00 [facility] PPD (TB) 2016-05-13 Completed [facility] 00:00:00 [facility] PPD (TB) 2016-05-13 Completed [facility] 00:00:00 [facility] PPD (TB) 2016-05-13 Completed [facility] 00:00:00 [facility] PPD (TB) 2016-05-13 Completed [facility] 00:00:00 [facility] PPD (TB) 2016-05-13 Completed [facility] 00:00:00 [facility] PPD (TB) 2016-05-13 Completed [facility] 00:00:00 [facility] PPD (TB) 2016-05-13 Completed [facility] 00:00:00 [facility] PPD (TB) 2016-05-13 Completed [facility] 00:00:00 [facility] PPD (TB) 2016-05-13 Completed [facility] 00:00:00 [facility] PPD (TB) 2016-05-13 Completed [facility] 00:00:00 [facility] PPD (TB) 2016-05-13 Completed [facility] 00:00:00 [facility] PPD (TB) 2016-05-13 Completed [facility] 00:00:00 [facility] PPD (TB) 2016-05-13 Completed [facility] 00:00:00 [facility] PPD (TB) 2016-05-13 Completed [facility] 00:00:00 [facility] PPD (TB) 2016-05-13 Completed [facility] 00:00:00 [facility] PPD (TB) 2016-05-13 Completed [facility] 00:00:00 [facility] PPD (TB) 2016-05-13 Completed [facility] 00:00:00 [facility] PPD (TB) 2016-05-13 Completed [facility] 00:00:00 [facility] PPD (TB) 2016-05-13 Completed [facility] 00:00:00 [facility] PPD (TB) 2016-05-13 Completed [facility] 00:00:00 [facility] PPD (TB) 2016-05-13 Completed [facility] 00:00:00 [facility] PPD (TB) 2016-05-13 Completed [facility] 00:00:00 [facility] PPD (TB) 2016-05-13 Completed [facility] 00:00:00 [facility] PPD (TB) 2016-05-13 Completed [facility] 00:00:00 [facility] PPD (TB) 2016-05-13 Completed [facility] 00:00:00 [facility] PPD (TB) 2016-05-13 Completed [facility] 00:00:00 [facility] PPD (TB) 2016-05-13 Completed [facility] 00:00:00 [facility] PPD (TB) 2016-05-13 Completed [facility] 00:00:00 [facility] PPD (TB) 2016-05-13 Completed [facility] 00:00:00 [facility] PPD (TB) 2016-05-13 Completed [facility] 00:00:00 [facility] PPD (TB) 2016-05-13 Completed [facility] 00:00:00 [facility] PPD (TB) 2016-05-13 Completed [facility] 00:00:00 [facility] PPD (TB) 2016-05-13 Completed [facility] 00:00:00 [facility] PPD (TB) 2016-05-13 Completed [facility] 00:00:00 [facility] PPD (TB) 2016-05-13 Completed [facility] 00:00:00 [facility] PPD (TB) 2015-11-22 Completed [facility] 00:00:00 [facility] PPD (TB) 2015-11-22 Completed [facility] 00:00:00 [facility] PPD (TB) 2015-11-22 Completed [facility] 00:00:00 [facility] PPD (TB) 2015-11-22 Completed [facility] 00:00:00 [facility] PPD (TB) 2015-11-22 Completed [facility] 00:00:00 [facility] PPD (TB) 2015-11-22 Completed [facility] 00:00:00 [facility] PPD (TB) 2015-11-22 Completed [facility] 00:00:00 [facility] PPD (TB) 2015-11-22 Completed [facility] 00:00:00 [facility] PPD (TB) 2015-11-22 Completed [facility] 00:00:00 [facility] PPD (TB) 2015-11-22 Completed [facility] 00:00:00 [facility] PPD (TB) 2015-11-22 Completed [facility] 00:00:00 [facility] PPD (TB) 2015-11-22 Completed [facility] 00:00:00 [facility] PPD (TB) 2015-11-22 Completed [facility] 00:00:00 [facility] PPD (TB) 2015-11-22 Completed [facility] 00:00:00 [facility] PPD (TB) 2015-11-22 Completed [facility] 00:00:00 [facility] PPD (TB) 2015-11-22 Completed [facility] 00:00:00 [facility] PPD (TB) 2015-11-22 Completed [facility] 00:00:00 [facility] PPD (TB) 2015-11-22 Completed [facility] 00:00:00 [facility] PPD (TB) 2015-11-22 Completed [facility] 00:00:00 [facility] PPD (TB) 2015-11-22 Completed [facility] 00:00:00 [facility] PPD (TB) 2015-11-22 Completed [facility] 00:00:00 [facility] PPD (TB) 2015-11-22 Completed [facility] 00:00:00 [facility] PPD (TB) 2015-11-22 Completed [facility] 00:00:00 [facility] PPD (TB) 2015-11-22 Completed [facility] 00:00:00 [facility] PPD (TB) 2015-11-22 Completed [facility] 00:00:00 [facility] PPD (TB) 2015-11-22 Completed [facility] 00:00:00 [facility] PPD (TB) 2015-11-22 Completed [facility] 00:00:00 [facility] PPD (TB) 2015-11-22 Completed [facility] 00:00:00 [facility] PPD (TB) 2015-11-22 Completed [facility] 00:00:00 [facility] PPD (TB) 2015-11-22 Completed [facility] 00:00:00 [facility] PPD (TB) 2015-11-22 Completed [facility] 00:00:00 [facility] PPD (TB) 2015-11-22 Completed [facility] 00:00:00 [facility] PPD (TB) 2015-11-22 Completed [facility] 00:00:00 [facility] PPD (TB) 2015-11-22 Completed [facility] 00:00:00 [facility] PPD (TB) 2015-11-22 Completed [facility] 00:00:00 [facility] PPD (TB) 2015-11-22 Completed [facility] 00:00:00 [facility] PPD (TB) 2015-11-22 Completed [facility] 00:00:00 [facility] PPD (TB) 2015-11-22 Completed [facility] 00:00:00 [facility] PPD (TB) 2015-11-22 Completed [facility] 00:00:00 [facility] PPD (TB) 2015-11-22 Completed [facility] 00:00:00 [facility] PPD (TB) 2015-11-22 Completed [facility] 00:00:00 [facility] PPD (TB) 2015-11-22 Completed [facility] 00:00:00 [facility] PPD (TB) 2015-11-22 Completed [facility] 00:00:00 [facility] PPD (TB) 2015-11-22 Completed [facility] 00:00:00 [facility] PPD (TB) 2015-11-22 Completed [facility] 00:00:00 [facility] PPD (TB) 2015-11-22 Completed [facility] 00:00:00 [facility] PPD (TB) 2015-11-22 Completed [facility] 00:00:00 [facility] PPD (TB) 2015-11-22 Completed [facility] 00:00:00 [facility] PPD (TB) 2015-11-22 Completed [facility] 00:00:00 [facility] Pneumococcal 2015-11-08 Completed University o f Unspecified 00:00:00 [facility] PPD (TB) 2015-11-08 Completed [facility] 00:00:00 [facility] Pneumococcal 2015-11-08 Completed University o f Unspecified 00:00:00 [facility] PPD (TB) 2015-11-08 Completed [facility] 00:00:00 [facility] Pneumococcal 2015-11-08 Completed [facility] o f Unspecified 00:00:00 [facility] PPD (TB) 2015-11-08 Completed [facility] 00:00:00 [facility] Pneumococcal 2015-11-08 Completed [facility] o f Unspecified 00:00:00 [facility] PPD (TB) 2015-11-08 Completed [facility] 00:00:00 [facility] Pneumococcal 2015-11-08 Completed [facility] o f Unspecified 00:00:00 [facility] PPD (TB) 2015-11-08 Completed [facility] 00:00:00 [facility] Pneumococcal 2015-11-08 Completed [facility] o f Unspecified 00:00:00 [facility] PPD (TB) 2015-11-08 Completed [facility] 00:00:00 [facility] Pneumococcal 2015-11-08 Completed [facility] o f Unspecified 00:00:00 [facility] PPD (TB) 2015-11-08 Completed [facility] 00:00:00 [facility] Pneumococcal 2015-11-08 Completed [facility] o f Unspecified 00:00:00 [facility] PPD (TB) 2015-11-08 Completed [facility] 00:00:00 [facility] Pneumococcal 2015-11-08 Completed [facility] o f Unspecified 00:00:00 [facility] PPD (TB) 2015-11-08 Completed [facility] 00:00:00 [facility] Pneumococcal 2015-11-08 Completed [facility] o f Unspecified 00:00:00 [facility] PPD (TB) 2015-11-08 Completed [facility] 00:00:00 [facility] Pneumococcal 2015-11-08 Completed [facility] o f Unspecified 00:00:00 [facility] PPD (TB) 2015-11-08 Completed [facility] 00:00:00 [facility] Pneumococcal 2015-11-08 Completed [facility] o f Unspecified 00:00:00 [facility] PPD (TB) 2015-11-08 Completed [facility] 00:00:00 [facility] Pneumococcal 2015-11-08 Completed [facility] o f Unspecified 00:00:00 [facility] PPD (TB) 2015-11-08 Completed [facility] 00:00:00 [facility] Pneumococcal 2015-11-08 Completed [facility] o f Unspecified 00:00:00 [facility] PPD (TB) 2015-11-08 Completed [facility] 00:00:00 [facility] Pneumococcal 2015-11-08 Completed [facility] o f Unspecified 00:00:00 [facility] PPD (TB) 2015-11-08 Completed [facility] 00:00:00 [facility] Pneumococcal 2015-11-08 Completed [facility] o f Unspecified 00:00:00 [facility] PPD (TB) 2015-11-08 Completed [facility] 00:00:00 [facility] Pneumococcal 2015-11-08 Completed [facility] o f Unspecified 00:00:00 [facility] PPD (TB) 2015-11-08 Completed [facility] 00:00:00 [facility] Pneumococcal 2015-11-08 Completed [facility] o f Unspecified 00:00:00 [facility] PPD (TB) 2015-11-08 Completed [facility] 00:00:00 [facility] Pneumococcal 2015-11-08 Completed [facility] o f Unspecified 00:00:00 [facility] PPD (TB) 2015-11-08 Completed [facility] 00:00:00 [facility] Pneumococcal 2015-11-08 Completed [facility] o f Unspecified 00:00:00 [facility] PPD (TB) 2015-11-08 Completed [facility] 00:00:00 [facility] Pneumococcal 2015-11-08 Completed [facility] o f Unspecified 00:00:00 [facility] PPD (TB) 2015-11-08 Completed [facility] 00:00:00 [facility] Pneumococcal 2015-11-08 Completed [facility] o f Unspecified 00:00:00 [facility] PPD (TB) 2015-11-08 Completed [facility] 00:00:00 [facility] Pneumococcal 2015-11-08 Completed [facility] o f Unspecified 00:00:00 [facility] PPD (TB) 2015-11-08 Completed [facility] 00:00:00 [facility] Pneumococcal 2015-11-08 Completed [facility] o f Unspecified 00:00:00 [facility] PPD (TB) 2015-11-08 Completed [facility] 00:00:00 [facility] Pneumococcal 2015-11-08 Completed [facility] o f Unspecified 00:00:00 [facility] PPD (TB) 2015-11-08 Completed [facility] 00:00:00 [facility] Pneumococcal 2015-11-08 Completed [facility] o f Unspecified 00:00:00 [facility] PPD (TB) 2015-11-08 Completed [facility] 00:00:00 [facility] Pneumococcal 2015-11-08 Completed [facility] o f Unspecified 00:00:00 [facility] PPD (TB) 2015-11-08 Completed [facility] 00:00:00 [facility] Pneumococcal 2015-11-08 Completed [facility] o f Unspecified 00:00:00 [facility] PPD (TB) 2015-11-08 Completed [facility] 00:00:00 [facility] Pneumococcal 2015-11-08 Completed [facility] o f Unspecified 00:00:00 [facility] PPD (TB) 2015-11-08 Completed [facility] 00:00:00 [facility] Pneumococcal 2015-11-08 Completed [facility] o f Unspecified 00:00:00 [facility] PPD (TB) 2015-11-08 Completed [facility] 00:00:00 [facility] Pneumococcal 2015-11-08 Completed [facility] o f Unspecified 00:00:00 [facility] PPD (TB) 2015-11-08 Completed [facility] 00:00:00 [facility] Pneumococcal 2015-11-08 Completed [facility] o f Unspecified 00:00:00 [facility] PPD (TB) 2015-11-08 Completed [facility] 00:00:00 [facility] Pneumococcal 2015-11-08 Completed [facility] o f Unspecified 00:00:00 [facility] PPD (TB) 2015-11-08 Completed [facility] 00:00:00 [facility] Pneumococcal 2015-11-08 Completed [facility] o f Unspecified 00:00:00 [facility] PPD (TB) 2015-11-08 Completed [facility] 00:00:00 [facility] Pneumococcal 2015-11-08 Completed [facility] o f Unspecified 00:00:00 [facility] PPD (TB) 2015-11-08 Completed [facility] 00:00:00 [facility] Pneumococcal 2015-11-08 Completed [facility] o f Unspecified 00:00:00 [facility] PPD (TB) 2015-11-08 Completed [facility] 00:00:00 [facility] Pneumococcal 2015-11-08 Completed [facility] o f Unspecified 00:00:00 [facility] PPD (TB) 2015-11-08 Completed [facility] 00:00:00 [facility] Pneumococcal 2015-11-08 Completed [facility] o f Unspecified 00:00:00 [facility] PPD (TB) 2015-11-08 Completed [facility] 00:00:00 [facility] Pneumococcal 2015-11-08 Completed [facility] o f Unspecified 00:00:00 [facility] PPD (TB) 2015-11-08 Completed [facility] 00:00:00 [facility] Pneumococcal 2015-11-08 Completed [facility] o f Unspecified 00:00:00 [facility] PPD (TB) 2015-11-08 Completed [facility] 00:00:00 [facility] Pneumococcal 2015-11-08 Completed [facility] o f Unspecified 00:00:00 [facility] PPD (TB) 2015-11-08 Completed [facility] 00:00:00 [facility] Pneumococcal 2015-11-08 Completed [facility] o f Unspecified 00:00:00 [facility] PPD (TB) 2015-11-08 Completed [facility] 00:00:00 [facility] Pneumococcal 2015-11-08 Completed [facility] o f Unspecified 00:00:00 [facility] PPD (TB) 2015-11-08 Completed [facility] 00:00:00 [facility] Pneumococcal 2015-11-08 Completed [facility] o f Unspecified 00:00:00 [facility] PPD (TB) 2015-11-08 Completed [facility] 00:00:00 [facility] Pneumococcal 2015-11-08 Completed [facility] o f Unspecified 00:00:00 [facility] PPD (TB) 2015-11-08 Completed [facility] 00:00:00 [facility] Pneumococcal 2015-11-08 Completed [facility] o f Unspecified 00:00:00 [facility] PPD (TB) 2015-11-08 Completed [facility] 00:00:00 [facility] Pneumococcal 2015-11-08 Completed [facility] o f Unspecified 00:00:00 [facility] PPD (TB) 2015-11-08 Completed [facility] 00:00:00 [facility] Pneumococcal 2015-11-08 Completed [facility] o f Unspecified 00:00:00 [facility] PPD (TB) 2015-11-08 Completed [facility] 00:00:00 [facility] Pneumococcal 2015-11-08 Completed [facility] o f Unspecified 00:00:00 [facility] PPD (TB) 2015-11-08 Completed [facility] 00:00:00 [facility] Vital Signs Vital Name Observation Time Observation Value Comments Source WEIGHT 2020-07-25 95 kg 19:11:00 WEIGHT 2020-07-25 98 kg 15:25:00 Heart rate 2022-12-23 72 /min [facility] 21:00:00 [facility] Body temperature 2022-12-23 36.33 Chari University [facility] 21:00:00 [facility] Respiratory rate 2022-12-23 19 /min [facility] 21:00:00 [facility] Oxygen saturation 2022-12-23 94 /min [facility] in Arterial blood 21:00:00 [facility] dimitry by Pulse oximetry Branch Systolic blood 2022-12-23 97 mm[Hg] University of pressure 16:21:00 [facility] Diastolic blood 2022-12-23 69 mm[Hg] University o f pressure 16:21:00 [facility] Body weight 2022-12-23 91.989 kg University of 09:00:00 [facility] BMI 2022-12-23 26.04 kg/m2 University of 09:00:00 [facility] Body height 2022-12-23 188 cm University of 03:44:00 [facility] Systolic blood 2022-12-10 117 mm[Hg] University of pressure 19:24:00 [facility] Diastolic blood 2022-12-10 79 mm[Hg] University o f pressure 19:24:00 [facility] Heart rate 2022-12-10 93 /min [facility] 19:24:00 [facility] Body height 2022-12-10 188 cm University of 19:24:00 [facility] Body weight 2022-12-10 96.163 kg University of 19:24:00 [facility] BMI 2022-12-10 27.22 kg/m2 University of 19:24:00 [facility] Oxygen saturation 2022-12-10 94 /min [facility] in Arterial blood 19:24:00 [facility] Pulse [facility]xim[facility] Systolic blood 2022-11-30 117 mm[Hg] University of pressure 18:28:00 [facility] Diastolic blood 2022-11-30 77 mm[Hg] University o f pressure 18:28:00 [facility] Heart rate 2022-11-30 85 /min University of 18:28:00 [facility] [facility] Oxygen saturation 2022-11-30 96 /min University of in Arterial blood 18:28:00 [place] [facility] Pulse oximetry [facility] Body temperature 2022-11-30 36.22 Chari University of 18:27:00 [facility] Body height 2022-11-30 188 cm University of 18:27:00 [facility] Body weight 2022-11-30 98.431 kg University of 18:27:00 [facility] BMI 2022-11-30 27.86 kg/m2 University of 18:27:00 [facility] Systolic blood 2022-11-18 106 mm[Hg] University of pressure 19:20:00 [facility] Diastolic blood 2022-11-18 69 mm[Hg] University o f pressure 19:20:00 [facility] Heart rate 2022-11-18 89 /min University of 19:20:00 [facility] Body temperature 2022-11-18 37.06 Chari University of 19:20:00 [facility] Respiratory rate 2022-11-18 18 /min University of 19:20:00 [facility] Body height 2022-11-18 188 cm University of 19:20:00 [facility] Body weight 2022-11-18 97.433 kg University of :20:00 [facility] BMI 2022-11-18 27.58 kg/m2 University of 19:20:00 [facility] Oxygen saturation 2022-11-18 97 /min University of in Arterial blood 19:20:00 [place] [facility] Pulse oxim[facility] Systolic blood 2022-10-01 127 mm[Hg] University of pressure 19:22:00 [facility] Diastolic blood 2022-10-01 82 mm[Hg] University o f pressure 19:22:00 [facility] Heart rate 2022-10-01 84 /min University of 19:22:00 [facility] Body height 2022-10-01 188 cm University of 19:22:00 [facility] Body weight 2022-10-01 99.111 kg University of 19:22:00 [facility] BMI 2022-10-01 28.05 kg/m2 University of 19:22:00 [facility] Oxygen saturation 2022-10-01 92 /min University of in Arterial blood 19:22:00 [place] [facility] Pulse oximetry [facility] Systolic blood 2022-06-05 129 mm[Hg] University of pressure 15:45:00 [facility] Diastolic blood 2022-06-05 83 mm[Hg] University o f pressure 15:45:00 [facility] Heart rate 2022-06-05 82 /min University of 15:45:00 [facility] Body temperature 2022-06-05 36.5 Chari University of 15:45:00 [facility] Respiratory rate 2022-06-05 18 /min University of 15:45:00 [facility] Oxygen saturation 2022-06-05 95 /min University of in Arterial blood 15:45:00 [place] [facility] Body weight 2022-06-04 95.3 kg University of 19:30:00 [facility] BMI 2022-06-04 26.98 kg/m2 University of 19:30:00 [facility] Body height 2022-06-03 188 cm University of 05:00:00 [facility] Systolic blood 2022-05-31 141 mm[Hg] University of pressure 21:50:00 [facility] Diastolic blood 2022-05-31 96 mm[Hg] University o f pressure 21:50:00 [facility] Heart rate 2022-05-31 78 /min University of 21:50:00 [facility] Respiratory rate 2022-05-31 16 /min University of 21:50:00 [facility] Oxygen saturation 2022-05-31 97 /min University of in Arterial blood 21:50:00 [place] [facility] Pulse oximetry [facility] Body temperature 2022-05-31 36.72 Chari University of 21:32:00 [facility] Body weight 2022-05-31 92.9 kg University of 19:18:00 [facility] BMI 2022-05-31 26.30 kg/m2 University of 19:18:00 [facility] Body height 2022-05-28 188 cm University of 16:38:00 [facility] Oxygen saturation 2022-06-03 94 /min University of in Arterial blood 17:10:00 [place] [facility] Pulse oxim[facility] Systolic blood 2022-06-03 133 mm[Hg] notified nurse University of pressure 17:02:00 [facility] Diastolic blood 2022-06-03 93 mm[Hg] notified nurse University of pressure 17:02:00 [facility] Heart rate 2022-06-03 79 /min University of 17:02:00 [facility] Body temperature 2022-06-03 36.83 Chari University of 17:02:00 [facility] Respiratory rate 2022-06-03 17 /min University of 17:02:00 [facility] Body height 2022-06-03 188 cm University of 05:00:00 [facility] Body weight 2022-06-03 91.627 kg University of 05:00:00 [facility] BMI 2022-06-03 25.94 kg/m2 University of 05:00:00 [facility] Systolic blood 2022-05-31 141 mm[Hg] University of pressure 20:07:00 [facility] Diastolic blood 2022-05-31 98 mm[Hg] University o f pressure 20:07:00 [facility] Heart rate 2022-05-31 84 /min University of 20:07:00 [facility] Body temperature 2022-05-31 35.94 Chari University of 20:07:00 [facility] Respiratory rate 2022-05-31 16 /min University of 20:07:00 [facility] Oxygen saturation 2022-05-31 97 /min [facility] in Arterial blood 20:07:00 [facility] by Pulse oximetry Branch Body weight 2022-05-31 92.9 kg University of 19:18:00 [facility] BMI 2022-05-31 26.30 kg/m2 University of 19:18:00 [facility] Body height 2022-05-28 188 cm University of 16:38:00 [facility] Systolic blood 2022-05-28 156 mm[Hg] University of pressure 17:40:00 [facility] Diastolic blood 2022-05-28 125 mm[Hg] University o f pressure 17:40:00 [facility] Heart rate 2022-05-28 83 /min University of 17:40:00 [facility] Body temperature 2022-05-28 36.33 Chari University of 17:40:00 [facility] Respiratory rate 2022-05-28 27 /min University of 17:40:00 [facility] Oxygen saturation 2022-05-28 98 /min [place] of in Arterial blood 17:40:00 [facility] by Pulse oximetry Branch Body height 2022-05-28 188 cm University of 16:38:00 [facility] Body weight 2022-05-28 99.791 kg University of 16:38:00 [facility] BMI 2022-05-28 26.30 kg/m2 University of 16:38:00 [facility] HEIGHT 2021-09-01 182.1 cm 10:55:00 WEIGHT 2021-09-01 98.657 kg 10:55:00 HEIGHT 2021-09-01 182.1 cm 10:55:00 WEIGHT 2021-09-01 98.657 kg 10:55:00 WEIGHT 2021-08-29 91.8 kg 10:45:00 WEIGHT 2021-08-29 94.8 kg 07:40:00 WEIGHT 2021-08-29 91.8 kg 10:45:00 WEIGHT 2021-08-29 94.8 kg 07:40:00 Systolic blood 2021-08-27 128 mm[Hg] University of pressure 14:25:59 [facility] Diastolic blood 2021-08-27 85 mm[Hg] University o f pressure 14:25:59 [facility] Heart rate 2021-08-27 74 /min University of 14:25:59 [facility] Body temperature 2021-08-27 36.56 Chari University of 14:25:59 [facility] Respiratory rate 2021-08-27 18 /min University of 14:25:59 [facility] Oxygen saturation 2021-08-27 100 /min [facility] in Arterial blood 14:25:59 [facility] by Pulse oximetry [place] Body height 2021-08-27 180.3 cm University of 10:45:00 [facility] Body weight 2021-08-27 95.709 kg University of 10:45:00 [facility] BMI 2021-08-27 29.43 kg/m2 University of 10:45:00 [facility] Systolic blood 2021-06-13 151 mm[Hg] University of pressure 21:40:00 [facility] Diastolic blood 2021-06-13 93 mm[Hg] University o f pressure 21:40:00 [facility] Heart rate 2021-06-13 86 /min University of 21:40:00 [facility] Body temperature 2021-06-[address] [facility] 21:40:00 [facility] Respiratory rate 2021-06-13 18 /min [facility] 21:40:00 [facility] Body weight 2021-06-[address] [facility] 21:40:00 [facility] BMI 2021-06-13 28.12 kg/m2 [facility] 21:40:00 [facility] Oxygen saturation 2021-06-13 98 /min [facility] Arterial blood 21:40:00 [facility] by Pulse oximetry [place] WEIGHT 2020-07-25 95 kg 19:11:00 WEIGHT 2020-07-25 98 kg 15:25:00 Systolic blood 2021-09-01 114 mm[Hg] [facility] pressure 10:55:[address] [facility] Diastolic blood 2021-09-01 71 mm[Hg] [facility] pressure 10:55:[address] [facility] Heart rate 2021-09-01 70 /min [facility] 10:55:[address] [facility] Body temperature 2021-09-01 36.44 Chari [facility] 10:55:[address] [facility] Respiratory rate 2021-09-01 18 /min [facility] 10:55:[address] [facility] Body height 2021-09-[address] [facility] 10:55:[address] [facility] Body weight 2021-09-[address] [facility] 10:55:[address] [facility] BMI 2021-09-01 29.75 kg/m2 [facility] 10:55:[address] [facility] Oxygen saturation 2021-08-29 99 /min [facility] es in Arterial blood 11:30:00 Medical nter by Pulse oximetry Procedures Procedure Date / Time Performing Source Performed Clinician TRANSTHORACIC ECHO (TTE) LIMITED 2022-12-23 Vasquez Cao [facility]/ DOPPLER, COLOR AND CONTRAST 15:01:17 [place] [facility] MAGNESIUM 2022-12-[address] [facility] 09:30:00 [facility] TROPONIN I 2022-12-[address] [facility] 09:30:00 [facility] BASIC METABOLIC PANEL (NA, K, CL, 2022-12-[address] [facility] CO2, GLUCOSE, BUN, CREATININE, CA) 09:30:00 [facility] LIPID PANEL (51609)(TOTAL 2022-12-23 Vasquez Cao [facility] ersity of CHOLESTEROL, TRIGLYCERIDES, HDL) 09:30:00 [facility] CBC WITH DIFF 2022-12-23 Vasquez Cao [place] of 09:30:00 [facility] N-TERMINAL PRO-BNP 2022-12-23 Vasquez Cao [place] of 09:30:00 [facility] CT ABDOMEN PELVIS WO CONTRAST 2022-12-22 [facility], [facility] 20:00:26 [facility] LIPASE 2022-12-22 [facility] 18:55:00 [facility] TROPONIN I 2022-12-22 [facility], [facility] 18:55:00 [facility] COMP. METABOLIC PANEL ([id number]) 2022-12-22 [facility] 18:55:00 [facility] CBC WITH DIFF 2022-12-22 [facility], [facility] 18:55:00 [facility] N-TERMINAL PRO-BNP 2022-12-22 [facility] 18:55:00 [facility] VENOUS REFLUX DUPLEX BILATERAL - 2022-12-03 Tania [facility] BY VASCULAR LAB 18:54:00 [facility] TRANSTHORACIC ECHO (TTE) COMPLETE 2022-11-[address] [facility] W/ CONTRAST 17:30:[address] [facility] CT ABDOMEN PELVIS WO CONTRAST 2022-11-30 Amadeo Gama iversity of 15:00:00 [facility] XR CHEST 1 VW 2022-11-30 Amadeo Gama [place] of 14:37:00 [facility] AMYLASE 2022-11-30 [facility] of 14:21:00 A [facility] LIPASE 2022-11-30 [facility] of 14:21:00 A [facility] PROSTATIC SPECIFIC ANTIGEN 2022-11-30 [facility] Uni versity of 14:21:00 A [facility] THYROID STIMULATING HORMONE 2022-11-30 Tatum Sanchez Uni versity of 14:21:00 [facility] COMP. METABOLIC PANEL ([id number]) 2022-11-30 Tatum Sanchez U niversity of 14:21:00 [facility] LIPID PANEL ([id number])(TOTAL 2022-11-30 Tatum Sanchez Unive rsity of CHOLESTEROL, TRIGLYCERIDES, HDL) 14:21:00 [facility] CBC WITH DIFF 2022-11-30 Tatum Sanchez University of 14:21:00 [facility] GLYCOSYLATED HEMOGLOBIN (A1C) 2022-11-30 Tatum Sanchez U niversity of 14:21:00 [facility] PROTHROMBIN TIME / INR 2022-11-30 [facility] ity of 14:21:00 A [facility] ACTIVATED PARTIAL THRMPLAS SEBASTIÁN 2022-11-30 [facility] of 14:21:00 A [facility] HEPATITIS B SURFACE ANTIGEN 2022-11-30 [facility] Un iversity of 14:21:00 A [facility] AUTHORIZATION TO RELEASE PHI TO 2022-11-18 Doctor Gino nj [facility] 05:01:00 [place] [facility] ASSIGNMENT OF BENEFITS 2022-10-01 Doctor Zach [facility] sity of 19:17:35 [place] [facility] XR KUB 2022-06-04 [facility] of 14:40:00 [facility] XR KUB 2022-06-04 [facility] of 14:40:00 [facility] BASIC METABOLIC PANEL (NA, K, CL, 2022-06-04 [facility] of CO2, GLUCOSE, BUN, CREATININE, CA) 11:18:00 [facility] CBC WITHOUT DIFF 2022-06-04 [facility] of 11:18:00 [facility] BASIC METABOLIC PANEL (NA, K, CL, 2022-06-04 [facility] of CO2, GLUCOSE, BUN, CREATININE, CA) 11:18:00 [facility] CBC WITHOUT DIFF 2022-06-04 [facility] of 11:18:00 [facility] PATENCY CAPSULE 2022-06-03 [facility], [facility] of 17:30:00 [facility] PILL CAM (CAPSULE ENDOSCOPY) 2022-06-03 Pricilla Hastings U niversity of 17:30:00 [facility] PATENCY CAPSULE 2022-06-03 [facility] of 17:30:00 [facility] PILL CAM (CAPSULE ENDOSCOPY) 2022-06-03 Pricilla Hastings niversity of 17:30:00 [facility] LACTATE DEHYDROGENASE 2022-06-03 [facility] of 11:08:00 [facility] MAGNESIUM 2022-06-03 [facility] of 11:08:00 [facility] HAPTOGLOBIN, SERUM 2022-06-03 [facility], [facility] of 11:08:00 [facility] HEPATIC FUNCTION PANEL ([id number]) 2022-06-03 Rico [facility] niversity of (ALB,T.PRO,BILI 11:08:00 [place] [facility] T,BU/BC,ALT,AST,ALK PHOS) [place] BASIC METABOLIC PANEL (NA, K, CL, 2022-06-03 [facility], [facility] University of CO2, GLUCOSE, BUN, CREATININE, CA) 11:08:00 [facility] CBC WITH DIFF 2022-06-03 [facility] of 11:08:00 [facility] N-TERMINAL PRO-BNP 2022-06-03 [facility] of 11:08:00 [facility] LACTATE DEHYDROGENASE 2022-06-03 [facility], [facility] of 11:08:00 [facility] MAGNESIUM 2022-06-03 [facility], [facility] of 11:08:00 [facility] HAPTOGLOBIN, SERUM 2022-06-03 [facility] of 11:08:00 [facility] HEPATIC FUNCTION PANEL ([id number]) 2022-06-03 Rico Breanne U niversity of (ALB,T.PRO,BILI 11:08:00 [place] [facility] T,BU/BC,ALT,AST,ALK PHOS) [place] BASIC METABOLIC PANEL (NA, K, CL, 2022-06-03 [facility], [facility] of CO2, GLUCOSE, BUN, CREATININE, CA) 11:08:00 [facility] CBC WITH DIFF 2022-06-03 [facility] 11:08:00 [facility] N-TERMINAL PRO-BNP 2022-06-03 Surendra Koehler [place] of 11:08:00 [facility] POCT GLUCOSE (AUTOMATED) 2022-06-03 Jasen Farrell sity of 02:36:00 [facility] POCT GLUCOSE (AUTOMATED) 2022-06-03 Jasen Farrell sity of 02:36:00 [facility] POCT GLUCOSE (AUTOMATED) 2022-06-02 Jasen Farrell sity of 22:37:00 [facility] POCT GLUCOSE (AUTOMATED) 2022-06-02 Jasen Farrell sity of 22:37:00 [facility] POCT GLUCOSE (AUTOMATED) 2022-06-02 Jasen Farrell sity of 18:46:00 [facility] POCT GLUCOSE (AUTOMATED) 2022-06-02 Jasen Farrell sity of 18:46:00 [facility] CBC WITHOUT DIFF 2022-06-02 [facility] o f 17:06:00 [facility] CBC WITHOUT DIFF 2022-06-02 [facility] o f 17:06:00 [facility] BASIC METABOLIC PANEL (NA, K, CL, 2022-06-02 [facility] of CO2, GLUCOSE, BUN, CREATININE, CA) 11:07:00 [facility] CBC WITHOUT DIFF 2022-06-02 [facility] o f 11:07:00 [facility] BASIC METABOLIC PANEL (NA, K, CL, 2022-06-02 [facility] of CO2, GLUCOSE, BUN, CREATININE, CA) 11:07:00 [facility] CBC WITHOUT DIFF 2022-06-02 [facility] o f 11:07:00 [facility] POCT GLUCOSE (AUTOMATED) 2022-06-02 Jasen Farrell sity of 02:51:00 [facility] POCT GLUCOSE (AUTOMATED) 2022-06-02 Jasen Farrell sity of 02:51:00 [facility] POCT GLUCOSE (AUTOMATED) 2022-06-01 Jasen Farrell sity of 23:54:00 [facility] POCT GLUCOSE (AUTOMATED) 2022-06-01 Jasen Farrell sity of 23:54:00 [facility] CBC WITHOUT DIFF 2022-06-01 [facility] o f 20:39:00 [facility] CBC WITHOUT DIFF 2022-06-01 [facility] o f 20:39:00 [facility] CBC WITHOUT DIFF 2022-06-01 [facility] o f 20:39:00 [facility] POCT GLUCOSE (AUTOMATED) 2022-06-01 Jasen Farrell sity of 17:23:00 [facility] POCT GLUCOSE (AUTOMATED) 2022-06-01 Jasen Farrell sity of 17:23:00 [facility] POCT GLUCOSE (AUTOMATED) 2022-06-01 Jasen Farrell sity of 17:23:00 [facility] POCT GLUCOSE (AUTOMATED) 2022-06-01 Jasen Farrell sity of 13:27:00 [facility] POCT GLUCOSE (AUTOMATED) 2022-06-01 Jasen Farrell sity of 13:27:00 [facility] POCT GLUCOSE (AUTOMATED) 2022-06-01 Jasen Farrell Univorion sity of 13:27:00 [facility] PHOSPHORUS 2022-06-01 [facility] of 09:50:00 [facility] MAGNESIUM 2022-06-01 [facility] of 09:50:00 [facility] BASIC METABOLIC PANEL (NA, K, CL, 2022-06-01 [place], [facility] even [place] of CO2, GLUCOSE, BUN, CREATININE, CA) 09:50:00 [facility] PHOSPHORUS 2022-06-01 [facility] of 09:50:00 [facility] MAGNESIUM 2022-06-01 [facility] of 09:50:00 [facility] BASIC METABOLIC PANEL (NA, K, CL, 2022-06-01 [place] University of CO2, GLUCOSE, BUN, CREATININE, CA) 09:50:00 [facility] PHOSPHORUS 2022-06-01 [facility] of 09:50:00 [facility] MAGNESIUM 2022-06-01 [facility] of 09:50:00 [facility] BASIC METABOLIC PANEL (NA, K, CL, 2022-06-01 [facility] of CO2, GLUCOSE, BUN, CREATININE, CA) 09:50:00 [facility] POCT GLUCOSE (AUTOMATED) 2022-06-01 Jasen Farrell Univer sity of 03:59:00 [facility] POCT GLUCOSE (AUTOMATED) 2022-06-01 Jasen Farrell Univer sity of 03:59:00 [facility] POCT GLUCOSE (AUTOMATED) 2022-06-01 Jasen Farrell Univer sity of 03:59:00 [facility] POCT GLUCOSE (AUTOMATED) 2022-05-31 Jasen Farrell Univer sity of 22:45:00 [facility] POCT GLUCOSE (AUTOMATED) 2022-05-31 Jasen Farrell Univer sity of 22:45:00 [facility] POCT GLUCOSE (AUTOMATED) 2022-05-31 Jasen Farrell Univer sity of 22:45:00 [facility] COLONOSCOPY 2022-05-31 [facility] of 20:30:00 [facility] COLONOSCOPY 2022-05-31 [facility] of 20:30:00 [facility] COLONOSCOPY (ENDO) 2022-05-31 Mendez Montez [place] of 20:12:36 [facility] COLONOSCOPY (ENDO) 2022-05-31 Mendez Montez [place] of 20:12:36 [facility] COLONOSCOPY (ENDO) 2022-05-31 Mendez Montez [place] of 20:12:36 [facility] COLONOSCOPY (ENDO) 2022-05-31 Mendez Montez [place] of 20:12:36 [facility] BASIC METABOLIC PANEL (NA, K, CL, 2022-05-31 [facility] of CO2, GLUCOSE, BUN, CREATININE, CA) 19:46:00 [facility] CBC WITHOUT DIFF 2022-05-31 [facility] of 19:46:00 [facility] BASIC METABOLIC PANEL (NA, K, CL, 2022-05-31 [facility] of CO2, GLUCOSE, BUN, CREATININE, CA) 19:46:00 [facility] CBC WITHOUT DIFF 2022-05-31 [facility] of 19:46:00 [facility] BASIC METABOLIC PANEL (NA, K, CL, 2022-05-31 [facility] of CO2, GLUCOSE, BUN, CREATININE, CA) 19:46:00 [facility] CBC WITHOUT DIFF 2022-05-31 [facility] of 19:46:00 [facility] BASIC METABOLIC PANEL (NA, K, CL, 2022-05-31 [facility] of CO2, GLUCOSE, BUN, CREATININE, CA) 19:46:00 [facility] CBC WITHOUT DIFF 2022-05-31 [facility] of 19:46:00 [facility] POTASSIUM SERUM 2022-05-31 [facility] of 18:00:00 [facility] HEPATITIS B SURFACE ANTIBODY 2022-05-31 Blane, Crystal Uni versity of 18:00:00 [facility] POTASSIUM SERUM 2022-05-31 [facility] of 18:00:00 [facility] [place] HEPATITIS B SURFACE ANTIBODY 2022-05-31 Blane, Crystal Uni versity of 18:00:00 [facility] POTASSIUM SERUM 2022-05-31 Tung, [facility] of 18:00:00 [facility] HEPATITIS B SURFACE ANTIBODY 2022-05-31 Blane, Crystal Uni vers[facility] of 18:00:00 [facility] POTASSIUM SERUM 2022-05-31 Kobe, [facility] of 18:00:00 [facility] HEPATITIS B SURFACE ANTIBODY 2022-05-31 Blane, Crystal Uni versity of 18:00:00 [facility] PHOSPHORUS 2022-05-31 Heidari, [facility] of 15:11:00 [facility] MAGNESIUM 2022-05-31 Heidari, [facility] of 15:11:00 [facility] PHOSPHORUS 2022-05-31 Heidari, [facility] of 15:11:00 [facility] MAGNESIUM 2022-05-31 Heidari, [facility] of 15:11:00 [facility] PHOSPHORUS 2022-05-31 Heidari, [facility] of 15:11:00 [facility] MAGNESIUM 2022-05-31 Heidari, [facility] of 15:11:00 [facility] PHOSPHORUS 2022-05-31 [facility] 15:11:00 [facility] MAGNESIUM 2022-05-31 [facility] 15:11:00 [facility] POCT GLUCOSE (AUTOMATED) 2022-05-31 Heidari, [facility] ity of 13:30:00 [facility] POCT GLUCOSE (AUTOMATED) 2022-05-31 Heidari, Vikas Univers ity of 13:30:00 [facility] POCT GLUCOSE (AUTOMATED) 2022-05-31 Heidari, Vikas Univers ity of 13:30:00 [facility] POCT GLUCOSE (AUTOMATED) 2022-05-31 Heidari, Vikas Univers ity of 13:30:00 [facility] POCT GLUCOSE (AUTOMATED) 2022-05-31 Heidari, [facility] ity of 06:49:00 [facility] POCT GLUCOSE (AUTOMATED) 2022-05-31 Jean-Paulidari, Vikas Univers ity of 06:49:00 [facility] POCT GLUCOSE (AUTOMATED) 2022-05-31 Heidari, [facility] ity of 06:49:00 [facility] POCT GLUCOSE (AUTOMATED) 2022-05-31 Heidari, Vikas Univers ity of 06:49:00 [facility] POCT GLUCOSE (AUTOMATED) 2022-05-30 Heidari, Vikas Univers ity of 22:04:00 [facility] POCT GLUCOSE (AUTOMATED) 2022-05-30 Heidari, Vikas Univers ity of 22:04:00 [facility] POCT GLUCOSE (AUTOMATED) 2022-05-30 Heidari, Vikas [facility] ity of 22:04:00 [facility] POCT GLUCOSE (AUTOMATED) 2022-05-30 Heidari, Vikas Univers ity of 22:04:00 [facility] POCT GLUCOSE (AUTOMATED) 2022-05-30 Heidari, Vikas Univers ity of 17:59:00 [facility] POCT GLUCOSE (AUTOMATED) 2022-05-30 Heidari, Vikas Univers ity of 17:59:00 [facility] POCT GLUCOSE (AUTOMATED) 2022-05-30 Heidari, Vikas Univers ity of 17:59:00 [facility] POCT GLUCOSE (AUTOMATED) 2022-05-30 [facility] of 17:59:00 [facility] CBC WITH DIFF 2022-05-30 idari, [facility] of 17:23:00 [facility] CBC WITH DIFF 2022-05-30 Heidari, [facility] of 17:23:00 [facility] CBC WITH DIFF 2022-05-30 idamo, [facility] of 17:23:00 [facility] CBC WITH DIFF 2022-05-30 idari, [facility] of 17:23:00 [facility] PHOSPHORUS 2022-05-30 [facility], [facility] of 17:22:00 [facility] MAGNESIUM 2022-05-30 [facility] of 17:22:00 [facility] BASIC METABOLIC PANEL (NA, K, CL, 2022-05-30 [facility] of CO2, GLUCOSE, BUN, CREATININE, CA) 17:22:00 [facility] PHOSPHORUS 2022-05-30 [facility] of 17:22:00 [facility] MAGNESIUM 2022-05-30 [facility] of 17:22:00 [facility] BASIC METABOLIC PANEL (NA, K, CL, 2022-05-30 [facility] of CO2, GLUCOSE, BUN, CREATININE, CA) 17:22:00 [facility] PHOSPHORUS 2022-05-30 [facility] of 17:22:00 [facility] MAGNESIUM 2022-05-30 [facility] of 17:22:00 [facility] BASIC METABOLIC PANEL (NA, K, CL, 2022-05-30 [facility] of CO2, GLUCOSE, BUN, CREATININE, CA) 17:22:00 [facility] PHOSPHORUS 2022-05-30 [facility] of 17:22:00 [facility] MAGNESIUM 2022-05-30 [facility] of 17:22:00 [facility] BASIC METABOLIC PANEL (NA, K, CL, 2022-05-30 [facility] of CO2, GLUCOSE, BUN, CREATININE, CA) 17:22:00 [facility] POCT GLUCOSE (AUTOMATED) 2022-05-30 alhajiri, Vikas Univers ity of 14:08:00 [facility] POCT GLUCOSE (AUTOMATED) 2022-05-30 Heidari, Vikas Univers ity of 14:08:00 [facility] POCT GLUCOSE (AUTOMATED) 2022-05-30 Heidari, Vikas [facility] ity of 14:08:00 [facility] POCT GLUCOSE (AUTOMATED) 2022-05-30 Heidari, Vikas [facility] ity of 14:08:00 [facility] POCT GLUCOSE (AUTOMATED) 2022-05-30 Heidari, Vikas [facility] ity of 02:46:00 [facility] POCT GLUCOSE (AUTOMATED) 2022-05-30 Heidari, Vikas [facility] ity of 02:46:00 [facility] POCT GLUCOSE (AUTOMATED) 2022-05-30 Heidari, Vikas [facility] ity of 02:46:00 [facility] POCT GLUCOSE (AUTOMATED) 2022-05-30 Heidari, Vikas [facility] ity of 02:46:00 [facility] POCT GLUCOSE (AUTOMATED) 2022-05-29 Heidari, Vikas [facility] ity of 23:51:00 [facility] POCT GLUCOSE (AUTOMATED) 2022-05-29 Heidari, Vikas [facility] ity of 23:51:00 [facility] POCT GLUCOSE (AUTOMATED) 2022-05-29 Heidari, Vikas [facility] ity of 23:51:00 [facility] POCT GLUCOSE (AUTOMATED) 2022-05-29 Heidari, Vikas [facility] ity of 23:51:00 [facility] CBC WITH DIFF 2022-05-29 aKren [facility] of 14:33:00 [facility] CBC WITH DIFF 2022-05-29 Heidari [facility] of 14:33:00 [facility] CBC WITH DIFF 2022-05-29 Jean-Paulidari, [facility] of 14:33:00 [facility] CBC WITH DIFF 2022-05-29 Jean-Paulidari [facility] of 14:33:00 [facility] POCT GLUCOSE (AUTOMATED) 2022-05-29 Heidari, Vikas [facility] ity of 13:40:00 [facility] POCT GLUCOSE (AUTOMATED) 2022-05-29 Heidari, Vikas [facility] ity of 13:40:00 [facility] POCT GLUCOSE (AUTOMATED) 2022-05-29 [facility] of 13:40:00 [facility] POCT GLUCOSE (AUTOMATED) 2022-05-[address] [facility] ity of 13:40:00 [facility] PHOSPHORUS 2022-05-29 [facility] of 11:32:00 [facility] MAGNESIUM 2022-05-29 [facility] of 11:32:00 [facility] BASIC METABOLIC PANEL (NA, K, CL, 2022-05-29 Critical access hospital of CO2, GLUCOSE, BUN, CREATININE, CA) 11:32:00 [facility] PHOSPHORUS 2022-05-29 [facility] of 11:32:00 [facility] MAGNESIUM 2022-05-29 [facility] of 11:32:00 [facility] BASIC METABOLIC PANEL (NA, K, CL, 2022-05-29 Critical access hospital of CO2, GLUCOSE, BUN, CREATININE, CA) 11:32:00 [facility] PHOSPHORUS 2022-05-29 [facility] of 11:32:00 [facility] MAGNESIUM 2022-05-29 [facility] of 11:32:00 [facility] BASIC METABOLIC PANEL (NA, K, CL, 2022-05-29 [facility] of CO2, GLUCOSE, BUN, CREATININE, CA) 11:32:00 [facility] PHOSPHORUS 2022-05-29 [facility] of 11:32:00 [facility] MAGNESIUM 2022-05-29 [facility] of 11:32:00 [facility] BASIC METABOLIC PANEL (NA, K, CL, 2022-05-29 [facility] hospital of CO2, GLUCOSE, BUN, CREATININE, CA) 11:32:00 [facility] POCT GLUCOSE (AUTOMATED) 2022-05-[address] [facility] ity of 03:11:00 [facility] POCT GLUCOSE (AUTOMATED) 2022-05-29 Heidari [facility] ity of 03:11:00 [facility] POCT GLUCOSE (AUTOMATED) 2022-05-[address] [facility] ity of 03:11:00 [facility] POCT GLUCOSE (AUTOMATED) 2022-05-29 Vikas Jones Univers ity of 03:11:00 [facility] PUSH ENDOSCOPY 2022-05-28 [facility] of 16:56:00 [facility] ESOPHAGOGASTRODUODENOSCOPY 2022-05-28 UmeshCHI [facility] ersity of 16:56:00 [facility] PUSH ENDOSCOPY 2022-05-28 [facility] 16:56:00 [facility] ESOPHAGOGASTRODUODENOSCOPY 2022-05-[address] [facility] ersity of 16:56:00 [facility] SMALL BOWEL ENDOSCOPY (ENDO) 2022-05-28 Vikas Jones Uni versity of 16:48:11 [facility] SMALL BOWEL ENDOSCOPY (ENDO) 2022-05-28 Vikas Jones Uni versity of 16:48:11 [facility] SMALL BOWEL ENDOSCOPY (ENDO) 2022-05-28 Vikas Jones Uni versity of 16:48:11 [facility] SMALL BOWEL ENDOSCOPY (ENDO) 2022-05-28 Vikas Jones Uni versity of 16:48:11 [facility] INTACT PTH CALCIUM GROUP 2022-05-28 Raghav Pierre [facility] ity of 16:06:00 [facility] VITAMIN D, 25-OH 2022-05-[address] [facility] of 16:06:00 [facility] INTACT PTH CALCIUM GROUP 2022-05-28 [facility] of 16:06:00 [facility] VITAMIN D, 25-OH 2022-05-[address] [facility] of 16:06:00 [facility] INTACT PTH CALCIUM GROUP 2022-05-28 Gabby [facility] ity of 16:06:00 [facility] VITAMIN D, 25-OH 2022-05-28 Pierre, [facility] of 16:06:00 [facility] INTACT PTH CALCIUM GROUP 2022-05-28 Gabby [facility] ity of 16:06:00 [facility] VITAMIN D, 25-OH 2022-05-28 Pierre, [facility] of 16:06:00 [facility] TRANSTHORACIC ECHO (TTE) COMPLETE 2022-05-28 [facility] of W/ CONTRAST 15:12:01 [facility] TRANSTHORACIC ECHO (TTE) COMPLETE 2022-05-28 [facility] of W/ CONTRAST 15:12:01 [facility] TRANSTHORACIC ECHO (TTE) COMPLETE 2022-05-28 [facility] of W/ CONTRAST 15:12:01 [facility] TRANSTHORACIC ECHO (TTE) COMPLETE 2022-05-28 [facility] of W/ CONTRAST 15:12:01 [facility] POCT GLUCOSE (AUTOMATED) 2022-05-28 [facility] of 13:18:00 [facility] POCT GLUCOSE (AUTOMATED) 2022-05-28 [facility] ity of 13:18:00 [facility] POCT GLUCOSE (AUTOMATED) 2022-05-28 [facility] ity of 13:18:00 [facility] POCT GLUCOSE (AUTOMATED) 2022-05-28 [facility] ity of 13:18:00 [facility] PHOSPHORUS 2022-05-28 Karen [facility] of 10:13:00 [facility] MAGNESIUM 2022-05-28 [facility] of 10:13:00 [facility] THYROID STIMULATING HORMONE 2022-05-[address] [facility] ersity of 10:13:00 [facility] HEPATIC FUNCTION PANEL ([id number]) 2022-05-28 Vikas Jones niversity of (ALB,T.PRO,BILI 10:13:00 [facility],BU/BC,ALT,AST,ALK PHOS) Branch BASIC METABOLIC PANEL (NA, K, CL, 2022-05-28 Bri Jones [facility] of CO2, GLUCOSE, BUN, CREATININE, CA) 10:13:00 [facility] LIPID PANEL ([id number])(TOTAL 2022-05-[address] [facility] of CHOLESTEROL, TRIGLYCERIDES, HDL) 10:13:00 [facility] CBC WITH DIFF 2022-05-28 Karen [facility] of 10:13:00 [facility] GLYCOSYLATED HEMOGLOBIN (A1C) 2022-05-28 Vikas Jones iversity of 10:13:00 [facility] PROTHROMBIN TIME / INR 2022-05-[address] [facility] 10:13:00 [facility] ACTIVATED PARTIAL THRMPLAS SEBASTIÁN 2022-05-28 Vikas Jones U niversity of 10:13:00 [facility] FIBRINOGEN 2022-05-28 Karen [facility] of 10:13:00 [facility] PHOSPHORUS 2022-05-28 Karen, [facility] of 10:13:00 [facility] MAGNESIUM 2022-05-28 Karen [facility] of 10:13:00 [facility] THYROID STIMULATING HORMONE 2022-05-28 [facility] ersity of 10:13:00 [facility] HEPATIC FUNCTION PANEL ([id number]) 2022-05-28 Vikas Jones U niversity of (ALB,T.PRO,BILI 10:13:00 [facility],BU/BC,ALT,AST,ALK PHOS) [place] BASIC METABOLIC PANEL (NA, K, CL, 2022-05-28 [facility] of CO2, GLUCOSE, BUN, CREATININE, CA) 10:13:00 [facility] LIPID PANEL ([id number])(TOTAL 2022-05-28 alisia [facility] sity of CHOLESTEROL, TRIGLYCERIDES, HDL) 10:13:00 [facility] CBC WITH DIFF 2022-05-28 Karen [facility] of 10:13:00 [facility] GLYCOSYLATED HEMOGLOBIN (A1C) 2022-05-28 Vikas Jones Un iversity of 10:13:00 [facility] PROTHROMBIN TIME / INR 2022-05-28 Karen [facility] y of 10:13:00 [facility] ACTIVATED PARTIAL THRMPLAS SEBASTIÁN 2022-05-28 Vikas Jones U niversity of 10:13:00 [facility] FIBRINOGEN 2022-05-28 Karen [facility] of 10:13:00 [facility] PHOSPHORUS 2022-05-28 Karen [facility] of 10:13:00 [facility] MAGNESIUM 2022-05-28 Karen [facility] of 10:13:00 [facility] THYROID STIMULATING HORMONE 2022-05-28 Karen [facility] ersity of 10:13:00 [facility] HEPATIC FUNCTION PANEL ([id number]) 2022-05-28 Vikas Jones U niversity of (ALB,T.PRO,BILI 10:13:00 [place] [facility] T,BU/BC,ALT,AST,ALK PHOS) Branch BASIC METABOLIC PANEL (NA, K, CL, 2022-05-28 Karen, [facility] of CO2, GLUCOSE, BUN, CREATININE, CA) 10:13:00 [facility] LIPID PANEL ([id number])(TOTAL 2022-05-[address] [facility] of CHOLESTEROL, TRIGLYCERIDES, HDL) 10:13:00 [facility] CBC WITH DIFF 2022-05-28 Karen [facility] of 10:13:00 [facility] GLYCOSYLATED HEMOGLOBIN (A1C) 2022-05-28 Vikas Jones Un iversity of 10:13:00 [facility] PROTHROMBIN TIME / INR 2022-05-28 Vikas Jones Universit y of 10:13:00 [facility] ACTIVATED PARTIAL THRMPLAS SEBASTIÁN 2022-05-28 Vikas Jones U niversity of 10:13:00 [facility] FIBRINOGEN 2022-05-28 Karen [facility] of 10:13:00 [facility] PHOSPHORUS 2022-05-28 Karen [facility] of 10:13:00 [facility] MAGNESIUM 2022-05-28 Karen [facility] of 10:13:00 [facility] THYROID STIMULATING HORMONE 2022-05-28 Karen [facility] ersity of 10:13:00 [facility] HEPATIC FUNCTION PANEL ([id number]) 2022-05-28 Vikas Jones U niversity of (ALB,T.PRO,BILI 10:13:00 [place] [facility] T,BU/BC,ALT,AST,ALK PHOS) Branch BASIC METABOLIC PANEL (NA, K, CL, 2022-05-28 [facility] of CO2, GLUCOSE, BUN, CREATININE, CA) 10:13:00 [facility] LIPID PANEL ([id number])(TOTAL 2022-05-28 Vikas Jones Univer sity of CHOLESTEROL, TRIGLYCERIDES, HDL) 10:13:00 [facility] CBC WITH DIFF 2022-05-28 Karen [facility] of 10:13:00 [facility] GLYCOSYLATED HEMOGLOBIN (A1C) 2022-05-28 Vikas Jones Un iversity of 10:13:00 [facility] PROTHROMBIN TIME / INR 2022-05-28 Filiedwin [facility] Universit y of 10:13:00 [facility] ACTIVATED PARTIAL THRMPLAS SEBASTIÁN 2022-05-28 Karen Vikas U niversity of 10:13:00 [facility] FIBRINOGEN 2022-05-28 [facility] of 10:13:00 [facility] TROPONIN I 2022-05-28 [facility], [facility] of 00:25:00 [facility] CBC WITHOUT DIFF 2022-05-28 [facility], [facility] of 00:25:00 [facility] MRSA / MSSA SCREEN BY PCR, [facility] 2022-05-[address] [facility] of 00:25:00 [facility] TROPONIN I 2022-05-28 [facility] of 00:25:00 [facility] CBC WITHOUT DIFF 2022-05-28 [facility], [facility] of 00:25:00 [facility] MRSA / MSSA SCREEN BY PCR, [facility] 2022-05-[address] [facility] of 00:25:00 [facility] TROPONIN I 2022-05-28 [facility] of 00:25:00 [facility] CBC WITHOUT DIFF 2022-05-28 [facility], [facility] of 00:25:00 [facility] MRSA / MSSA SCREEN BY PCR, [facility] 2022-05-[address] [facility] of 00:25:00 [facility] TROPONIN I 2022-05-28 [facility] of 00:25:00 [facility] CBC WITHOUT DIFF 2022-05-28 [facility], [facility] of 00:25:00 [facility] MRSA / MSSA SCREEN BY PCR, [facility] 2022-05-[address] [facility] of 00:25:00 [facility] POCT GLUCOSE (AUTOMATED) 2022-05-27 [facility] ity of 22:50:00 [facility] POCT GLUCOSE (AUTOMATED) 2022-05-27 [facility] ity of 22:50:00 [facility] POCT GLUCOSE (AUTOMATED) 2022-05-27 Vikas Jones Univers ity of 22:50:00 [facility] POCT GLUCOSE (AUTOMATED) 2022-05-27 FiliriVikas Univers ity of 22:50:00 [facility] PREPARE PACKED RBC 2022-05-27 Karen [facility] of 18:56:58 [facility] PREPARE PACKED RBC 2022-05-27 Filiri [facility] of 18:56:58 [facility] PREPARE PACKED RBC 2022-05-27 Filiri [facility] of 18:56:58 [facility] PREPARE PACKED RBC 2022-05-27 Filiri [facility] of 18:56:58 [facility] POCT GLUCOSE (AUTOMATED) 2022-05-27 Vikas Jones [facility] ity of 17:46:00 [facility] POCT GLUCOSE (AUTOMATED) 2022-05-27 Vikas Jones [facility] ity of 17:46:00 [facility] POCT GLUCOSE (AUTOMATED) 2022-05-27 Vikas Jones [facility] ity of 17:46:00 [facility] POCT GLUCOSE (AUTOMATED) 2022-05-[address] [facility] ity of 17:46:00 [facility] TROPONIN I 2022-05-27 alisia [facility] of 17:45:00 [facility] HEPATITIS B SURFACE ANTIGEN 2022-05-27 Raghav Pierre [facility] ersity of 17:45:00 [facility] TROPONIN I 2022-05-27 alisia [facility] of 17:45:00 [facility] HEPATITIS B SURFACE ANTIGEN 2022-05-27 Raghav Pierre [facility] ersity of 17:45:00 [facility] TROPONIN I 2022-05-27 [facility] of 17:45:00 [facility] HEPATITIS B SURFACE ANTIGEN 2022-05-27 Raghav Pierre [facility] ersity of 17:45:00 [facility] TROPONIN I 2022-05-27 [facility] of 17:45:00 [facility] HEPATITIS B SURFACE ANTIGEN 2022-05-27 Raghav Pierre [facility] ersity of 17:45:00 [facility] HB ECG ROUTINE & RHYTHM STRIP 2022-05-27 alisia [facility] iversity of 17:20:30 [facility] HB ECG ROUTINE & RHYTHM STRIP 2022-05-27 Vikas Jones Un iversity of 17:20:30 [facility] HB ECG ROUTINE & RHYTHM STRIP 2022-05-27 Vikas Jones Un iversity of 17:20:30 [facility] HB ECG ROUTINE & RHYTHM STRIP 2022-05-27 FiliriVikas Un iversity of 17:20:30 [facility] HB ABO GROUPING 2022-05-27 Heidari [facility] of 15:35:00 [facility] HB ABO GROUPING 2022-05-27 Heidari, [facility] of 15:35:00 [facility] HB ABO GROUPING 2022-05-27 Heidari, [facility] of 15:35:00 [facility] HB ABO GROUPING 2022-05-27 Heidari, [facility] of 15:35:00 [facility] CBC WITH DIFF 2022-05-27 Filiri [facility] of 15:34:00 [facility] CBC WITH DIFF 2022-05-27 Heidari, [facility] of 15:34:00 [facility] CBC WITH DIFF 2022-05-27 Heidari, [facility] of 15:34:00 [facility] CBC WITH DIFF 2022-05-27 Heidari, [facility] of 15:34:00 [facility] COVID-19 (ID NOW RAPID TESTING) 2022-05-27 Beba Thompson [place] of 10:24:00 [facility] LAB ONLY COVID INTERPRETATION 2022-05-27 Beba Thompson U niversity of 10:24:00 [facility] COVID-19 (ID NOW RAPID TESTING) 2022-05-27 Beba Thompson [place] of 10:24:00 [facility] LAB ONLY COVID INTERPRETATION 2022-05-27 Beba Thompson U niversity of 10:24:00 [facility] COVID-19 (ID NOW RAPID TESTING) 2022-05-27 Beba Thompson [place] of 10:24:00 [facility] LAB ONLY COVID INTERPRETATION 2022-05-27 Beba Thompson U niversity of 10:24:00 [facility] [facility] COVID-19 (ID NOW RAPID TESTING) 2022-05-27 Beba Thompson [place] of 10:24:00 [facility] LAB ONLY COVID INTERPRETATION 2022-05-27 Beba Thompson niversity of 10:24:00 [facility] TRANSFUSE PACKED RBC 2022-05-27 Umm Gamez [place] of 08:12:00 [facility] TRANSFUSE PACKED RBC 2022-05-27 Umm Gamez [place] of 08:12:00 [facility] TRANSFUSE PACKED RBC 2022-05-27 Umm Gamez [place] of 08:12:00 [facility] TRANSFUSE PACKED RBC 2022-05-27 Umm Gamez Linda [place] of 08:12:00 [facility] PREPARE PACKED RBC 2022-05-27 Umm Gamez [place] of 08:00:14 [facility] PREPARE PACKED RBC 2022-05-27 Umm Gamez [place] of 08:00:14 [facility] PREPARE PACKED RBC 2022-05-27 Umm [facility]ly [facility] of 08:00:14 [facility] PREPARE PACKED RBC 2022-05-27 Umm GamezFormerly [facility] of 08:00:14 [facility] CT ANGIOGRAM ABDOMEN/PELVIS 2022-05-27 Umm Gamez [facility] ersity of 07:36:26 [facility] CT ANGIOGRAM ABDOMEN/PELVIS 2022-05-27 Umm Gamez [facility] ersity of 07:36:26 [facility] CT ANGIOGRAM ABDOMEN/PELVIS 2022-05-27 Umm Gamez [facility] ersity of 07:36:26 [facility] CT ANGIOGRAM ABDOMEN/PELVIS 2022-05-27 Umm Gamez [facility] ersity of 07:36:26 [facility] HB ECG ROUTINE & RHYTHM STRIP 2022-05-27 Umm Gamez [facility] of 06:48:45 [facility] HB ECG ROUTINE & RHYTHM STRIP 2022-05-27 Umm Gamez Un [facility] of 06:48:45 [facility] HB ECG ROUTINE & RHYTHM STRIP 2022-05-27 Umm Gamez Un [facility] of 06:48:45 [facility] HB ECG ROUTINE & RHYTHM STRIP 2022-05-27 Umm Gamez Un [facility] of 06:48:45 [facility] HB ABO GROUPING 2022-05-27 Umm Gamez of 06:45:00 [facility] HB ABO GROUPING 2022-05-27 VeraUmm victor of 06:45:00 [facility] HB ABO GROUPING 2022-05-27 VeraUmm victor of 06:45:00 [facility] HB ABO GROUPING 2022-05-27 VeraUmm victor of 06:45:00 [facility] LIPASE 2022-05-27 Umm Gamez [place] of 06:35:00 [facility] MAGNESIUM 2022-05-27 Umm Gamez [place] of 06:35:00 [facility] TROPONIN I 2022-05-27 Umm Gamez [place] of 06:35:00 [facility] COMP. METABOLIC PANEL (94043) 2022-05-27 Umm Gamez Un [facility] of 06:35:00 [facility] CBC WITH DIFF 2022-05-27 Umm Gamez of 06:35:00 [facility] LIPASE 2022-05-27 Umm Gamez of 06:35:00 [facility] MAGNESIUM 2022-05-27 Umm Gamez of 06:35:00 [facility] TROPONIN I 2022-05-27 Umm Gamez [place] of 06:35:00 [facility] COMP. METABOLIC PANEL ([id number]) 2022-05-27 Umm Gamez Un i[facility] of 06:35:00 [facility] CBC WITH DIFF 2022-05-27 Umm Gamez of 06:35:00 [facility] LIPASE 2022-05-27 Umm Gamez [place] of 06:35:00 [facility] MAGNESIUM 2022-05-27 Umm Gamez of 06:35:00 [facility] TROPONIN I 2022-05-27 Umm Gamez [place] of 06:35:00 [facility] COMP. METABOLIC PANEL (00361) 2022-05-27 Umm Gamez Un iversity of 06:35:00 [facility] CBC WITH DIFF 2022-05-[address] [facility] 06:35:00 [facility] LIPASE 2022-05-[address] [facility] 06:35:00 [facility] MAGNESIUM 2022-05-[address] [facility] 06:35:00 [facility] TROPONIN I 2022-05-[address] [facility] 06:35:00 [facility] COMP. METABOLIC PANEL (35493) 2022-05-27 Umm Gamez Un iversity of 06:35:00 [facility] CBC WITH DIFF 2022-05-[address] [facility] 06:35:00 [facility] DISCLOSURE AND CONSENT, [facility] 2022-05-27 Doctor Gino nj, [facility] AND SURGICAL PROCEDURES 06:01:00 [place] [facility] ADMISSION 2022-05-27 Doctor Serrano, [facility] 06:01:00 [place] [facility] DISCLOSURE AND CONSENT, [facility] 2022-05-27 Doctor Gino nj, [facility] AND SURGICAL PROCEDURES 06:01:00 [place] [facility] ADMISSION 2022-05-[address] [facility] 06:01:00 [place] [facility] DISCLOSURE AND CONSENT, [facility] 2022-05-27 Doctor Gino nj, [facility] AND SURGICAL PROCEDURES 06:01:00 [place] [facility] ADMISSION 2022-05-[address] [facility] 06:01:00 [place] [facility] DISCLOSURE AND CONSENT, [facility] 2022-05-[address] [facility] AND SURGICAL PROCEDURES 06:01:00 [place] [facility] ADMISSION 2022-05-[address] [facility] 06:01:00 [place] [facility] AUTHORIZATION FOR RELEASE OF PHI 2021-09-[address] [facility] 05:01:00 [place] [facility] US PELVIS WITH DOPPLER 2021-09-[address] [facility] 14:51:00 [facility] US ABDOMEN COMPLETE 2021-09-[address] [facility] 14:38:00 [facility] PREPARE LEUKO-REDUCED RBC 2021-08-[address] [facility] 23:54:[address] [facility] HEMODIALYSIS INPATIENT 2021-08-[address] [facility] 10:36:[address] [facility] HEMOGLOBIN AND HEMATOCRIT 2021-08-29 [facility]ta [facility] 08:19:00 [facility] HEMOGLOBIN AND HEMATOCRIT 2021-08-29 [facility]ta [facility] 00:43:00 [facility] PTH, INTACT 2021-08-[address] [facility] 00:43:00 [facility] PREPARE LEUKO-REDUCED RBC 2021-08-28 [facility]ta [facility] 23:55:00 [facility] HEPATITIS B SURFACE ANTIGEN 2021-08-[address] [facility] 18:35:00 [facility] HEMOGLOBIN AND HEMATOCRIT 2021-08-28 Cuong [facility]eralta [facility] 18:35:00 [facility] SARS-COV2/RT-PCR ([facility] REF LABS) 2021-08-[address] [facility] 15:34:[address] [facility] REPORT OF PROCEDURE - ENDOSCOPY 2021-08-28 Dowell, Gabrielleeal [facility] URL 11:25:45 [facility] TISSUE EXAM 2021-08-28 Dowell, Suneal [facility] 11:16:00 [facility] ENDOSCOPY, UPPER GI TRACT, WITH 2021-08-28 Dowell, Gabrielleeal [facility] BIOPSY 10:58:00 [facility] TRANSFUSE LEUKO-REDUCED RED BLOOD 2021-08-[address] [facility] CELLS 08:21:[address] [facility] HEMOGLOBIN AND HEMATOCRIT 2021-08-28 Cu[facility]eralta [facility] 02:06:00 [facility] IRON, TIBC, % SAT. (WITHOUT 2021-08-28 Morteza, Sarah [facility] FERRITIN) 02:06:[address] [facility] FERRITIN 2021-08-[address] [facility] 02:06:[address] [facility] VITAMIN B12 AND FOLATE 2021-08-[address] [facility] 02:06:[address] [facility] CBC W/PLT COUNT & AUTO 2021-08-[address] [facility] DIFFERENTIAL 02:06:00 [facility] BASIC METABOLIC PANEL 2021-08-[address] [facility] 02:06:00 [facility] PHOSPHORUS 2021-08-[address] [facility] 02:06:00 [facility] CBC W/PLT COUNT & AUTO 2021-08-[address] [facility] DIFFERENTIAL 02:06:00 [facility] TRANSFUSE LEUKO-REDUCED RED BLOOD 2021-08-[address] [facility] CELLS 18:20:00 [facility] HIGH SENSITIVITY TROPONIN I 2021-08-[address] [facility] 18:04:00 [facility] PREPARE PACKED RBC 2021-08-27 Diya Rolon [place] [facility] 13:46:17 [facility] CBC W/PLT COUNT & AUTO 2021-08-[address] [facility] DIFFERENTIAL 13:40:00 [facility] BASIC METABOLIC PANEL 2021-08-[address] [facility] 13:40:00 [facility] PROTHROMBIN TIME/INR 2021-08-[address] [facility] 13:40:00 [facility] HIGH SENSITIVITY TROPONIN I 2021-08-[address] [facility] 13:40:00 [facility] TYPE AND SCREEN, AUTOMATED 2021-08-[address] [facility] 13:40:00 [facility] CBC W/PLT COUNT & AUTO 2021-08-[address] [facility] DIFFERENTIAL 13:40:00 [facility] ABORH CONFIRMATION (LAB ONLY) 2021-08-27 Diya Rolon Un iversity of 13:14:00 [facility] HB ABO GROUPING 2021-08-27 Diya Rolon of 12:25:00 [facility] COVID-19 (ID NOW RAPID TESTING) 2021-08-27 Diya Rolon of 11:56:00 [facility] COMP. METABOLIC PANEL ([id number]) 2021-08-27 Diya Rolon Un iversity of 11:26:00 [facility] XR CHEST 1 VW 2021-08-27 Diya Rolon of 11:12:00 [facility] LIPASE 2021-08-27 Diya Rolon [place] [facility] 10:57:00 [facility] TROPONIN I 2021-08-27 Diya Rolon [place] [facility] 10:57:00 [facility] CBC WITH DIFF 2021-08-27 Diya Rolon [place] [facility] 10:57:00 [facility] PROTHROMBIN TIME / INR 2021-08-27 [facility] 10:57:00 [facility] ACTIVATED PARTIAL THRMPLAS SEBASTIÁN 2021-08-27 Diya Rolon U niversity of 10:57:00 [facility] N-TERMINAL PRO-BNP 2021-08-27 Diya Rolon [place] [facility] 10:57:00 [facility] NOTICE OF PRIVACY PRACTICES 2021-08-27 Doctor Zach, U niversity of 10:38:00 [place] [facility] CONSENT/REFUSAL FOR DIAGNOSIS AND 2021-08-27 [facility] 10:37:13 [place] [facility] AUTHORIZATION FOR RELEASE OF PHI 2021-08-13 Doctor Dumont [facility] 05:01:00 [place] [facility] AUTHORIZATION FOR RELEASE OF PHI 2021-07-31 Doctor Dumont [facility] 05:01:00 [place] [facility] CT CERVICAL SPINE WO CONTRAST 2021-06-13 Amandeep Kirkpatrick Un iversity of 22:02:07 [facility] CT HEAD WO CONTRAST 2021-06-13 Amandeep Kirkpatrick [facility] o f 22:02:07 [facility] CONSENT/REFUSAL FOR DIAGNOSIS AND 2021-06-13 [facility] 21:34:37 [place] [facility] Plan of Care Planned Activity Planned Date Details Comments Source Future Scheduled 2030-07-25 Screening for malignant [facility] Test 00:00:00 neoplasm of colon Medical Ce nter (procedure) [code = 666872050] Future Scheduled 2030-07-25 Screening for malignant [facility] Test 00:00:00 neoplasm of colon Medical Ce nter (procedure) [code = 981643078] Future Scheduled 2030-07-25 Screening for malignant [facility] Test 00:00:00 neoplasm of colon Medical Ce nter (procedure) [code = 167093218] Future Scheduled 2030-07-25 Screening for malignant [facility] Test 00:00:00 neoplasm of colon Medical Ce nter (procedure) [code = 964564562] Future Scheduled 2030-07-25 Screening for malignant [facility] Test 00:00:00 neoplasm of colon Medical Ce nter (procedure) [code = 309681933] Future Scheduled 2030-07-25 Screening for malignant [facility] Test 00:00:00 neoplasm of colon Medical Ce nter (procedure) [code = 862695374] Future Scheduled 2030-07-25 Screening for malignant [facility] Test 00:00:00 neoplasm of colon Medical Ce nter (procedure) [code = 135962218] Future Scheduled 2030-07-25 Screening for malignant [facility] Test 00:00:00 neoplasm of colon Medical Ce nter (procedure) [code = 234673163] Future Scheduled 2030-07-25 Screening for malignant [facility] Test 00:00:00 neoplasm of colon Medical Ce nter (procedure) [code = 476797444] Future Scheduled 2030-07-25 Screening for malignant [facility] 00:00:00 neoplasm of colon Medical Ce nter (procedure) [code = 219967399] Future Scheduled 2023-01-07 Influenza Vaccine (#1) [facility] 00:00:00 [code = Influenza Medical Ce nter Vaccine (#1)] Future Scheduled 2022-09-[address] [facility] Test 00:00:00 Counseling and Medical Cente r Screening (12+) [code = Tobacco Cessation Counseling and Screening (12+)] Future Scheduled 2022-05-[address] [facility] [facility] 00:00:00 WELLNESS (YEAR 2 or Medical Center FIRST YEAR if no IPPE) [code = MEDICARE ANNUAL WELLNESS (YEAR 2 or FIRST YEAR if no IPPE)] Future Scheduled 2022-05-[address] [facility] 00:00:00 WELLNESS (YEAR 2 or Medical Center FIRST YEAR if no IPPE) [code = MEDICARE ANNUAL WELLNESS (YEAR 2 or FIRST YEAR if no IPPE)] Future Scheduled 2022-05-[address] [...] RISK Medical C enter SCREENING] Future Scheduled 2022-05-[address] [facility] 00:00:00 (12+) [code = Medical Center DEPRESSION SCREENING (12+)] Future Scheduled 2022-05-09 FALLS RISK SCREENING [facility] 00:00:00 [code = FALLS RISK Medical C enter SCREENING] Future Scheduled 2022-05-[address] [...] screening Medical C enter (procedure) [code = 327829122] Future Scheduled 2021-02-[address] [facility] 00:00:00 aneurysm screening Medical C enter (procedure) [code = 262414433] Future Scheduled 2021-02-[address] [facility] 00:00:00 aneurysm screening Medical C enter (procedure) [code = 079573922] Future Scheduled 2021-02-[address] [facility] Test 00:00:00 aneurysm screening Medical C enter (procedure) [code = 849238580] Future Scheduled 2006-02-18 SHINGLES VACCINES ([address] [facility] 00:00[facility]00 [facility] Future Scheduled 2006-02-18 SHINGLES VACCINES ([address] [facility] 00:00:00 2) [facility])] Future Scheduled 2006-02-18 SHINGLES VACCINES ([address] [facility] 00:00:00 2) [code = SHINGLES [facility] VACCINES (1 of 2)] Future Scheduled 2006-02-18 SHINGLES VACCINES ([address] [facility] 00:00:00 2) [facility])] Future Scheduled 1975-02-18 DTAP/TDAP/TD [facility]ACCINES [facility] 00:00:00 (1 - Tdap) [code = Medical C enter DTAP/TDAP/TD VACCINES (1 - Tdap)] Future Scheduled 1975-02-18 SHINGLES VACCINES ([address] [facility] 00:00:00 2) [code = SHINGLES [facility] VACCINES (1 of 2)] Future Scheduled [...] [facility]ukes Test 00:00:00 [code = CT Colonography [facility] (combo)] Future Scheduled 1956 Screening for malignant [facility] 00:00:00 neoplasm of colon Medical Ce nter (procedure) [code = 659775093] Future Scheduled 1956 Screening for malignant [facility] 00:00:00 neoplasm of colon Medical Ce nter (procedure) [code = 302764202] Future Scheduled 1956 Sigmoidoscopy [code = [facility] Sigmoidoscopy] Medical Cente r Future Scheduled 1956 CT Colonography (combo) [facility] 00:00:00 [code = CT Colonography [facility] (combo)] Future Scheduled 1956 Screening for malignant [facility] 00:00:00 neoplasm of colon Medical Ce nter (procedure) [code = 707535992] Future Scheduled 1956 Screening for malignant [facility] 00:00:00 neoplasm of colon Medical Ce nter (procedure) [code = 939713575] Future Scheduled 1956 Sigmoidoscopy [facility]code = [facility]:00[facility] Sigmoidoscopy] Medical Cente r Future Scheduled 1956 CT Colonography (combo) [facility] 00:00:00 [code = CT Colonography [facility] (combo)] Future Scheduled 1956 Screening for malignant [facility] 00:00:00 neoplasm of colon Medical Ce nter (procedure) [code = 797040325] Future Scheduled 1956 Screening for malignant [facility] 00:00:00 neoplasm of colon Medical Ce nter (procedure) [code = 038586329] Future Scheduled 1956 Sigmoidoscopy [facility]code = [facility] 00:[facility] Sigmoidoscopy] Medical Cente r Future Scheduled 1956 CT Colonography (combo) [facility] 00:00:00 [code = CT Colonography [facility] (combo)] Future Scheduled 1956 Screening for malignant [facility] 00:00:00 neoplasm of colon Medical Ce nter (procedure) [code = 540996489] Future Scheduled 1956 Screening for malignant [facility] 00:00:00 neoplasm of colon Medical Ce nter (procedure) [code = 600178926] Future Scheduled 1956 Sigmoidoscopy [code = [facility] 00:00:[facility] Sigmoidoscopy] Medical Cente r Future Scheduled 1956 CT Colonography (combo) [facility] 00:00:00 [code = CT Colonography [facility] dimitry Center (combo)] Future Scheduled 1956 Screening for malignant [facility] 00:00:00 neoplasm of colon Medical Ce nter (procedure) [code = 316672705] Future Scheduled 1956 Screening for malignant [facility] 00:00:00 neoplasm of colon Medical Ce nter (procedure) [code = 282968981] Future Scheduled 1956 Sigmoidoscopy [code = [facility] Sigmoidoscopy] Medical Cente r Encounters Start End Encounter Admission Attending Care Care Encounter Source Date/Time Date/Time Type Type Clinicians Facility Department ID 2022-06-22 [id number] Univers 08:59:55 DANITA cedeno [facility] 2022-06-10 Outpatient R [facility]ER [facility] [id number] Univers 11:30:25 JASWINDER WESLEY i ty of [facility] 2022-06-04 Outpatient R LUPILLOCLAUDINEJASWINDER [facility] GIE [id number] Univers 16:59:40 LUPILLOCLAUDINEJASWINDER i ty of [facility] 2020-07-23 Inpatient ADAMARIS BARRY [facility] [id number] [facility] 18:00:00 YAZAN 2023-01-06 2023-01-06 [facility] [id number] Univers 13:00:00 13:00:00 TATUM cedeno of [facility] 2022-12-22 2022-12-23 Outpatient X [facility]EL [facility] [id number] Univers 13:35:00 17:45:00 VASQUEZ cedeno o f [facility] 2022-12-22 2022-12-23 Emergency AufderKavita agarwal [facility] 1.2.840.114 [id number] Univers 13:35:00 17:45:00 Beba Thompson [id number] ity of [place] [id number] [facility] [id number] 2022-12-22 2022-12-22 Telephone [facility] 1.2.840.114 [id number] Univers 00:00:00 00:00:00 Tatum WALKER [id number] i ty [id number] [id number] [place] dic[address] 2022-12-13 2022-12-13 Telephone [facility] 1.2.840.114 [id number] Univers 00:00:00 00:00:00 Tatum WALKER [id number] i ty [id number] [id number] [place] dic[address] 2022-12-11 2022-12-11 Telephone [facility] 1.2.840.114 [id number] Univers 00:00:00 00:00:00 Divya WALKER [id number] ity of [id number] [id number] Il dical NAL 044 [facility] 2022-12-10 2022-12-10 Outpatient R ZEE, DIVYA [facility] [id number] Univers 14:00:00 14:58:30 DIVYA KOCH ity of [facility] 2022-12-10 2022-12-10 Office [facility] 1.2.840.114 [id number] [facility] 14:00:00 14:58:30 Visit Divya WALKER [id number] ity of [place] [id number] [facility] 044 [facility] 2022-12-09 2022-12-[address] [facility] 1.2.840.114 [id number] Univers 00:00:00 00:00:00 Jose Zaragoza MULTISPEC [id number] [id number] [id number] [facility] [address] [facility] 2022-12-07 2022-12-07 Telephone [facility] [id number] [facility] 00:00:00 00:00:00 Rosalva WALKER [id number] ity of [place] [id number] [facility] 059 [facility] 2022-12-06 2022-12-[address] [facility] 1.2.840.114 [id number] Univers 00:00:00 00:00:00 Review Jose Zaragoza MULTISPEC [id number] [place] [id number] [facility] [address] [facility] 2022-12-03 2022-12-03 Outpatient R TANIA [facility] [id number] [facility] 12:50:05 23:59:00 ROSALVA cedeno o f [facility] 2022-12-03 2022-12-03 [facility] 1.2.840.114 [id number] Univers 12:50:05 23:59:00 Encounter Rosalva WALKER 350.1.13.10 [place]y [place] [id number] Il dical NAL [address] [facility] 2022-12-03 2022-12-03 Telephone Gabinobib [facility] 1.2.840.114 [id number] Univers 00:00:00 00:00:00 Tatum WALKER 350.1.13.10 i ty of [facility] 4.2.[place]2.[place] [id number] Il dical NAL 044 [facility] 2022-11-30 2022-11-30 [facility] Amadeo Gama [facility] 1.2.840.114 [id number] Univers 09:11:03 23:59:00 Encounter HEALTH [id number] ity of [facility] 4.2.7.2.686 [place] [facility] [id number] [place] [id number] [facility] ([facility]) 2022-11-30 2022-11-30 Office Arpit Christie [facility] 1.2.840.114 [id number] Univers 16:00:00 16:45:00 Visit Jose Wei MULTISPEC 350.1.13 .10 ity of [place] 4.2.7.2.686 [facility] [place] [id number] [address] [facility] 2022-11-30 2022-11-30 Manager [employer], Transplant Social [facility] 1.2.840.114 [id number] Univers 15:00:00 15:45:00 Management Jose Wei MULTISPEC 350.1 .13.10 ity of [place] 4.2.7.2.686 [facility] [place] [id number] [address] [facility] 2022-11-30 2022-11-30 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 2.840.114 [id number] Univers 14:00:00 14:45:00 Visit Jose Wei MULTISPEC 350.1.13 .10 [place] [id number] [facility] AND JUAREZ [address] [facility] 2022-11-30 2022-11-30 Office ChristianRonnell [facility] 1.2.840 .114 [id number] Univers 13:00:00 13:30:00 Visit Carlito Weid Mila MULTISPEC 350.1.13 .10 [place] [id number] [facility] [address] [facility] 2022-11-30 2022-11-30 Polysomnography [employer] 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 2.840.114 [id number] Univers 09:30:00 09:45:00 Visit Jose Wei SPECIALTY 350.1.13 .10 ity of [place]2.[place] [id number] Il julio césar CRANE 353 [facility] 2022-11-30 2022-11-30 Outpatient R SHASHI [facility] [facility] [id number] Univers 09:30:00 09:30:00 JOSE ity o f [facility] 2022-11-30 2022-11-30 [facility] 1.2.840.114 1 [id number] Univers 09:10:52 09:10:52 Encounter SPECIALTY 350.1.13.10 [place] [phone] Il julio césar CRANE 801 [facility] 2022-11-30 2022-11-30 [facility] 1.2.840.114 1 [id number] Univers 09:00:00 09:09:00 Encounter SPECIALTY 350.1.13.10 [place] [id number] Il julio césar CRANE 807 [facility] 2022-11-30 2022-11-30 Nurse Renal, Transplant Class [facility] 1. 2.840.114 [id number] Univers 08:00:00 08:45:00 Visit Jose Wei MULTISPEC 350.1.13 .10 [place] [id number] [facility] [address] [facility] 2022-11-25 2022-11-25 Case Amadeo Gama [facility] 1.2.840.114 10 [id number] Univers 00:00:00 00:00:00 Management MULTISPEC 350.1.13.10 [place] [id number] [facility] [address] [facility] 2022-11-19 2022-11-19 Telephone [facility] 1.2.276.987 [id number] Univers 00:00:00 00:00:00 Rosalva WALKER 350.1.13.10 ity of [facility] 4.2.[place].2.[place] [phone] Il dical NAL [address] [place] [address] 2022-11-18 2022-11-18 Outpatient [facility] [id number] Univers 14:20:00 14:43:00 ROSALVA cedeno o f [facility] 2022-11-18 2022-11-18 Office [facility] 1.2.840.114 [id number] Univers 14:20:00 14:43:00 Visit Rosalva WALKER 350.1.13.10 ity of [place] [id number] [facility] NAL [address] [place] [address] 2022-11-18 2022-11-18 Orders Doctor SARA 1.2.840.114 [id number] Univers 00:00:00 00:00:00 Only Unassigned, GADIEL 350.1.13.10 ity of [place] [facility] 4.2.7.2.686 [place]aveen as [phone] [place] [address] [address] 2022-11-16 2022-11-16 Outpatient R LEILANI [facility] [id number] Univers 14:30:00 14:30:00 SABINA ity [facility] 2022-11-15 2022-11-15 Telephone [facility] 1.2.840.114 1 [id number] Univers 00:00:00 00:00:00 Tatum WALKER 350.1.13.10 i ty of [place] [id number] [address] 2022-11-10 2022-11-[address] [facility] 1.2.840.114 [id number] Univers 00:00:00 00:00:00 (Out) Jose Zaragoza MULTISPEC 350.1.13.10 it[place] [id number] [address] [facility] 2022-11-10 2022-11-10 Telephone [facility] 1.2.840.114 1 [id number] Univers 00:00:00 00:00:00 Tatum WALKER 350.1.13.10 i ty of [place].2.[place] [id number] [address] 2022-11-04 2022-11-04 Telephone [employer] [facility] 1.2.840.114 [id number] Univers 00:00:00 00:00:00 Aline lorenzana MULTISPEC 350.1.13.10 it[place] [phone] [address] [facility] 2022-11-02 2022-11-02 [facility] 1.2.936.157 [id number] Univers 07:38:00 23:59:00 Encounter Jose Zaragoza GADIEL 350.1.13.10 ity of [facility] 4.2.7.2.686 [place] as [id number] [address] 2022-11-02 2022-11-02 Outpatient R [facility] ACO [id number] Univers 00:00:00 23:59:00 JOSE ity o f [facility] 2022-10-28 2022-10-28 Telephone Gamilla-Cru [facility] 1.2.840.114 [id number] Univers 00:00:00 00:00:00 Aline lorenzana 350.1.13.10 it[place] [id number] [facility] AND CERRILLOS [address] [facility] 2022-10-28 2022-10-28 Telephone [facility] 1.2.840.114 1 [id number] Univers 00:00:00 00:00:00 Tatum WALKER 350.1.13.10 i ty of [place].7.2.[place] [id number] Il dical NAL 044 [facility] 2022-10-28 2022-10-28 Telephone [facility] 1.2.840.114 1 [id number] Univers 00:00:00 00:00:00 Tatum WALKER 350.1.13.10 i ty of [place] 4.2.7.2.[place] [id number] Il dical NAL 231 [facility] 2022-10-26 2022-10-26 [facility] 1.2.840.114 104 [id number] Univers 00:00:00 00:00:00 Tatum WLAKER 350.1.13.10 i ty of [place] 4.2.7.2.686 [place] [id number] Il dical NAL 044 [facility] 2022-10-21 2022-10-21 Telephone [facility] 1.2.840.114 1 [id number] Univers 00:00:00 00:00:00 Tatum WALKER 350.1.13.10 i ty of [place] 4.2.7.2.[place] [id number] Il dical NAL 044 [facility] 2022-10-19 2022-10-19 [facility] 1.2.840.114 103 [id number] Univers 00:00:00 00:00:00 Tatum WALKER 350.1.13.10 i ty [place].2.[place] [id number] [address] 2022-10-01 2022-10-01 Out[facility] [id number] Univers 14:00:00 15:13:17 TATUM cedeno [facility] 2022-10-01 2022-10-01 Office [facility] 1.2.840.114 102 [id number] Univers 14:00:00 15:13:17 Visit Tatum WALKER 350.1.13.10 i ty of [place] 4.2.7.2.[place] [id number] [address] 2022-10-01 2022-10-01 Orders Doctor SARA 1.2.840.114 [id number] Univers 00:00:00 00:00:00 Only Unassigned, GADIEL 350.1.13.10 ity of [place] [facility] 4.2.7.2.686 [place] as [id number] [facility] [address] 2022-10-01 2022-10-01 Telephone [facility] 1.2.840.114 1 [id number] Univers 00:00:00 00:00:00 Tatum WALKER 350.1.13.10 i ty of [place] 4.[place].7.2.[place] [phone] [address] 2022-07-06 2022-07-06 Outpatient R [facility] 1043 [id number] Univers 11:00:00 11:00:00 TATUM cedeno [facility] 2022-06-25 2022-06-25 Letter Clinic, UN[facility]ERSIT 1.2.333.460 [id number] Univers 00:00:00 00:00:00 (Out) [facility] HEALTH 350.1.13.10 i ty of Gastroenter CLINICS 4.2.7.2.686 [place] [facility] [phone] [facility] [address] 2022-06-11 2022-06-11 Telephone [facility] 1.2.953.208 0749 [id number] Univers 00:00:00 00:00:00 Le BENTLEY 350.1.13.10 it y of C[place] 4.2.[place].2.[place] 452.2893704 Il dical [address] 2022-06-07 2022-06-07 Transition MULU Mcduffie 1.2.840.114 10 [id number] Univers 00:00:00 00:00:00 of Care Alis Gruber EVELINA 350.1.13.10 i ty of [place] [id number] [facility] [address] 2022-06-07 2022-06-07 [facility] 1.2.430.964 [id number] [id number] Univers 00:00:00 00:00:00 Jaswinder Gruber SPECIALTY 350.1.13.10 it[place] [id number] Il dical VICTORLuis Alberto 072 [facility] 2022-05-27 2022-06-05 Inpatient X [facility] [id number] Univers 00:15:00 11:00:00 LE ity of [facility] 2022-05-27 2022-06-05 [facility] Umm Gamez 1.2.840.1 14 [id number] Univers 00:15:00 11:00:00 Encounter Andrew Joshua 350.1. 13.10 ity of [facility] 4.2.7.2.686 [place] Jasen Farrell [id number] Medical BoykinLe 093 [address] Laya August 2022-06-03 2022-06-03 [facility] 1.2.747.546 [id number] Univers 11:30:00 12:26:00 Pricilla SEBASTIAN 350.1.13.10 ity of SCIENCES 4.2.7.2.686 [place] as BLDG [id number] [facility] [address] 2022-05-31 2022-05-31 Surgery [facility] 1.2.840.114 [id number] Univers 13:57:00 14:53:00 Rachel SPECIALTY 350.1.13.10 it[place] [id number] Il julio césar CRANE 020 [facility] 2022-05-28 2022-05-28 Surgery Umu, [facility] 1.2.840.114 [id number] Univers 10:48:00 11:42:00 Gene [facility].1.13.10 [facility] 4.2.7.2.686 Johanna soni CENTER AT [id number] Il julio césar CRANE 020 [facility] 2022-04-14 2022-04-14 Telephone Digabitleonel, [facility] [id number] 00:[facility] 00:00:00 [facility] 2022-04-14 2022-04-14 Telephone Solange, [facility] [id number] [id number] 00:00[facility]00 00:00:00 [facility] 2022-04-14 2022-04-14 [facility] [id number] [id number] 00:[facility]00 00:00:00 [facility] 2022-04-14 2022-04-14 Telephone Solange, [facility] [id number] [id number] 00:00[facility]00 00:00:00 [facility] 2022-04-02 2022-04-02 [facility] [id number] 00:00[facility]00 00:00:00 [facility] 2022-04-02 2022-04-02 [facility] [id number] 00:00[facility]00 00:00:00 [facility] 2022-03-29 2022-03-29 Telephone Solange, [facility] [id number] 00:00[facility]00 00:00:00 [facility] 2022-03-29 2022-03-29 [facility] [id number] [id number] 00:00[facility]00 00:00:00 [facility] 2022-03-16 2022-03-16 Yossi Kiser [facility] [id number] [id number] 00:00[facility]00 00:00:00 [facility] 2022-03-16 2022-03-16 Documentat Kiser, [facility] [id number] 00:00[facility]00 00:00:00 [facility] 2022-03-02 2022-03-02 Abstract Kandi [facility] [id number] 00:00:00 00:00:00 [facility] 2022-03-02 2022-03-02 Abstract Kandi [facility] [id number] 00:00:00 00:00:00 [facility] 2022-01-01 2022-01-01 [facility] [id number] 00:00[facility]00 00:00:00 [facility] 2022-01-01 2022-01-01 [facility] [id number] 00:00:00 00:00:00 [facility] 2021-10-08 2021-10-08 Telephone Edie [facility] [id number] [facility] 2021-09-23 2021-09-23 Outpatient Brendon KIM, [facility] [id number] Univers 14:00:00 14:00:00 JAVIER cedeno [facility] 2021-09-22 2021-09-22 Orders Doctor RUIZ 1.2.840.114 [id number] Univers 00:00:00 00:00:00 Only Unassigned, GADIEL 350.1.13.10 ity of [facility] 4.2.7.2.686 [place] as [id number] [address] 2021-09-01 2021-09-01 Outpatient [facility]ARIS [facility] [id number] SLE 13:57:47 23:59:00 NOEMI 2021-09-01 2021-09-01 [facility] [id number] 13:57:47 23:59:[address] [facility] 2021-09-01 2021-09-01 Outpatient EL MINAL, [facility]H [facility] [id number] [facility] 13:57:36 13:56:00 DOLLY 2021-09-01 2021-09-01 Hospital Minal, [facility] [id number] 13:00:00 13:56:[address] [facility] 2021-09-01 2021-09-01 Evaluation Minal, [facility] [id number] 10:40:00 11:10:00 [facility] 2021-09-01 2021-09-01 Outpatient EL SLEH SLEH [id number] [facility] 10:43:02 10:43:02 2021-09-01 2021-09-01 Outpatient EL [facility] [id number] [facility] 10:42:51 10:42:51 2021-09-01 2021-09-01 Outpatient EL SLEH [facility] [id number] [facility] 10:42:15 10:42:15 2021-09-01 2021-09-01 Outpatient EL SLEH [facility]H [id number] [facility] 10:39:54 10:39:54 2021-09-01 2021-09-01 Follow-Up Luis [facility] [id number] [facility] 10:00:00 10:30:00 Pema Fowler [facility] 2021-09-01 2021-09-01 Follow-Up Minal, [facility] [id number] 09:30:00 10:00:00 [facility] 2021-09-01 2021-09-01 Evaluation Minal, [facility] [id number] 09:00:00 09:30:00 [facility] 2021-08-27 2021-08-29 Inpatient ER TRICIA, [facility] Cardiology 20 [id number] [facility] 10:42:00 14:16:00 [facility] 2021-08-27 2021-08-29 Hospital ER Cuong Peralta [facility] [id number] 10:42:00 14:16:00 Encounter Tricia Sidra [facility] 2021-08-28 2021-08-28 Anesthesia Rosie, [facility] [id number] 11:08:00 11:53:00 [facility] 2021-08-28 2021-08-28 Surgery Magalys, [facility] [id number] 11:00:00 11:48:00 [facility] 2021-08-27 2021-08-27 Emergency [facility] [id number] Univers 05:49:00 09:49:00 DIYA cedeno [facility] 2021-08-27 2021-08-27 Emergency [facility] 1.2.271.845 [id number] Univers 05:49:00 09:49:00 Diya WALKER 350.1.13.10 ty [facility] 4.2.7.2.686 [facility] [id number] [address] 2021-08-27 2021-08-27 Outpatient EL MINAL, SLEH SLEH [id number] [facility] 00:00:00 00:00:00 BHAMIDIPATI 2021-08-27 2021-08-27 Outpatient EL SLEH [facility]H [id number] [facility] 00:00:00 00:00:00 2021-08-27 2021-08-27 Outpatient EL MINAL, SLEH SLEH [id number] [facility] 00:00:00 00:00:00 BHAMIDIPATI 2021-08-27 2021-08-27 Outpatient EL MINAL, [facility]H SLEH [id number] [facility] 00:00:00 00:00:00 BHAMIDIPATI 2021-08-27 2021-08-27 Outpatient EL MINAL, [facility]H SLEH [id number] [facility] 00:00:00 00:00:00 BHAMIDIPATI 2021-08-27 2021-08-27 Telephone Edie, [facility] [id number] 00:00:00 00:00:00 [facility] 2021-08-26 2021-08-26 Telephone Edie, [facility] [id number] 00:00:00 00:00:00 [facility] 2021-08-13 2021-08-13 Orders Doctor RUIZ 1.2.840.114 [id number] Univers 00:00:00 00:00:00 Only Unassigned, GADIEL 350.1.13.10 ity of [place] [facility] 4.2.7.2.686 [place] as [id number] [place] [address] [address] 2021-07-31 2021-07-31 Orders Doctor SARA 1.2.840.114 [id number] Univers 00:00:00 00:00:00 Only Unassigned, GADIEL 350.1.13.10 ity of [place] [facility] 4.2.7.2.686 [place] as [id number] [place] [address] [address] 2021-07-09 2021-07-09 Orders Labradmd, [facility] [id number] 00:00:00 00:00:00 Only [facility] 2021-07-07 2021-07-07 Telephone Yarelismd, [facility] [id number] 00:00:00 00:00:00 [facility] 2021-07-07 2021-07-07 Documentat Labcritical access hospital, [facility] [id number] 00:00:00 00:00:00 ion [facility] 2021-07-06 2021-07-06 Telephone Edie, [facility] [id number] 00:00:00 00:00:00 [facility] 2021-07-06 2021-07-06 [id number] 00:00:00 00:00:00 Only [facility] 2021-06-13 2021-06-13 Emergency Amandeep KirkpatrickMB 1.2.840.114 [id number] Univers 15:44:00 16:53:00 T DENISE 350.1.13.10 i reva matthews [facility]ERT[facility] 4.2.7.2.686 [facility] [phone] [place] [address] [address] 2021-06-13 2021-06-13 Emergency X AMANDEEP KIRKPATRICK [facility] ERT [id number] Univers 15:44:00 16:53:00 ity [facility] 2020-12-30 2020-12-30 [place] [id number] [facility] 08:00:00 08:00:00 0824 [facility] 2020-09-16 2020-09-16 Outpatient EL SLEH SLEH [id number] [facility] 00:00:00 00:00:00 2020-09-15 2020-09-15 Outpatient EL SLEH SLEH [id number] [facility] 00:00:00 00:00:00 2019-11-15 2019-11-15 Outpatient CALDERON, SLEH SLEH [id number] [facility] 00:00:00 00:00:00 ABHINAV 2019-11-15 2019-11-15 Outpatient EL CALDERON, SLEH SLEH [id number] [facility]H 00:00:00 00:00:00 ABHINAV 2019-11-12 2019-11-12 Outpatient EL CALDERON, SLEH SLEH [id number] [facility] 00:00:00 00:00:00 ABHINAV 2019-11-12 2019-11-12 Outpatient EL CALDERON, SLEH SLEH [id number] [facility] 00:00:00 00:00:00 ABHINAV 2019-11-01 2019-11-01 Outpatient EL CALDERON, SLEH SLEH [id number] [facility] 00:00:00 00:00:00 ABHINAV 2019-11-01 2019-11-01 Outpatient CALDERON, SLEH SLEH [id number] [facility]H 00:00:00 00:00:00 ABHINAV 2019-10-16 2019-10-16 Outpatient CALDERON, SLEH SLEH [id number] SLEH 00:00:00 00:00:00 ABHINAV 2019-10-16 2019-10-16 Outpatient EL CALDERON, SLEH SLEH [id number] SLEH 00:00:00 00:00:00 ABHINAV 2019-10-04 2019-10-04 Outpatient YUMIKO, SLEH SLE [id number] SLEH 00:00:00 00:00:00 ABHINAV 2019-10-04 2019-10-04 Outpatient [facility]IS [facility] [id number] [facility] 00:00:00 00:00:00 ABHINAV 2019-09-20 2019-09-20 Outpatient [facility]UMIKO[facility] [id number] [facility] 00:00:00 00:00:00 ABHINAV 2019-09-20 2019-09-20 Outpatient ADAMARIS CALDERON, SLE SLE [id number] SLEH 00:00:00 00:00:00 ABHINAV Results Test Description Test Time Test Comments Results Result Comments Source N-TERMINAL PRO-BNP 2022-12-23 01:06:51 Test Item Value Reference Range Interpretation Comme nts NT-proBNP (test code = 08338-3) 800425 pg/mL <=125 H AJ (test code = AJ) Positive: Heart Failure Likely Lab Interpretation (test code = 18420-1) [facility]normal [facility] [id number] 19:54:36 Test Item Value Reference Range Interpretation Comments TROPONIN I (test code = 0.067 ng/mL <=0.034 H 9665764862) AJ (test code = AJ) Reference (Normal) Range (defined by the 99th percentile reference [...] biotin. Lab Interpretation Abnormal (test code = 72666-8) [facility]OL[facility] PAN[facility] ([id number])2022-12-22 19:42:50 Test Item Value Reference Range Interpretation Comments NA (test code = 136 mmol/L 135-145 5407463228) K (test code = 5.1 mmol/L 3.5-5.0 H 8125905603) CL (test code = 93 mmol/L 98-108 L 3634323977) CO2 TOTAL (test code = 26 mmol/L 23-31 4648945755) AGAP (test code = 17 2-16 H 3584703338) BUN (test code = 75 mg/dL 7-23 H 6310038790) GLUCOSE (test code = 87 mg/dL 70-110 7382231489) CREATININE (test code = 9.03 mg/dL 0.60-1.25 H 3499492301) TOTAL BILI (test code = 0.7 mg/dL 0.1-1.3 6762607685) CALCIUM (test code = 9.4 mg/dL 8.6-10.6 9880400586) T PROTEIN (test code = 7.5 g/dL 6.3-8.2 8023755730) ALBUMIN (test code = 4.0 g/dL 3.5-5.0 2762222800) ALK PHOS (test code = 74 U/L 34-122 2224579008) ALTv (test code = 21 U/L 5-50 1742-6) AST(SGOT) (test code = 28 U/L 13-40 5814311297) eGFR (test code = 5.9 mL/min/1.73m2 5011725075) AJ (test code = AJ) Association of [...] tests). Lab Interpretation Abnormal (test code = 74483-2) [facility] 19:42:50 Test Item Value Reference Range Interpretation Comments LIPASE (test code = 6230085972) 103 U/L 0-220 Lab Interpretation (test code = Normal 10317-6) [facility] WITH [id number] 19:33:48 Test Item Value Reference Range Interpretation Comments WBC (test code = 4.25 See_Comment [Automated 6690-2) message] The sy stem which generated this result transmitted reference range : 4.20 - 10.70 10*3/?L. The reference range was not used to interpret this result as normal/abnormal . RBC (test code = 3.09 See_Comment L [Automated 789-8) message] The sy stem which generated this result transmitted reference range : 4.26 - 5.52 10*6/?L. The reference range was not used to interpret this result as normal/abnormal . HGB (test code = 8.8 g/dL 12.2-16.4 L 718-7) HCT (test code = 28.1 % 38.4-49.3 L 4544-3) MCV (test code = 90.9 fL 81.7-95.6 787-2) MCH (test code = 28.5 pg 26.1-32.7 785-6) MCHC (test code = 31.3 g/dL 31.2-35.0 786-4) RDW-SD (test code = 55.8 fL 38.5-51.6 H 17598-3) RDW-CV (test code = 16.9 % 12.1-15.4 H 788-0) PLT (test code = 188 See_Comment [Automated 777-3) message] The sy stem which generated this result transmitted reference range : 150 - 328 10*3/ ?L. The reference r yazan was not used to interpret this result as normal/abnormal . MPV (test code = 12.1 fL 9.8-13.0 73996-6) NRBC/100 WBC (test 0.0 See_Comment [Automat ed code = 9423013674) message] The system which generated this result transmitted reference range : 0.0 - 10.0 /100 WBCs. The refer ence range was not u sed to interpret th is result as normal/abnormal . NRBC x10^3 (test code See_Comment [Auto mated = 2820804529) message] The s ystem which generated this result transmitted reference range : 10*3/?L. The reference range was not used to interpret this result as normal/abnormal . GRAN MAT (NEUT) % 65.8 % (test code = 770-8) IMM GRAN % (test code 0.20 % = 8353877720) LYMPH % (test code = 16.2 % 736-9) MONO % (test code = 16.2 % 5905-5) EOS % (test code = 0.7 % 713-8) BASO % (test code = 0.9 % 706-2) GRAN MAT x10^3(ANC) 2.79 10*3/uL 1.99-6.95 (test code = 6922692045) IMM GRAN x10^3 (test 0.00-0.06 code = 9677570916) LYMPH x10^3 (test code 0.69 10*3/uL 1.09-3.23 L = 731-0) MONO x10^3 (test code 0.69 10*3/uL 0.36-1.02 = 742-7) EOS x10^3 (test code = 0.03 10*3/uL 0.06-0.53 L 711-2) BASO x10^3 (test code 0.04 10*3/uL 0.01-0.09 = 704-7) Lab Interpretation Abnormal (test code = 66819-9) [facility] GLUCOSE (AUTOMATED)2022-06-03 02:37:39 Test Item Value Reference Range Interpretation Comments POCT GLU (test code = 7425309053) 126 mg/dL 70-110 H Lab Interpretation (test code = Abnormal 46439-5) [facility]22-[facility]03 02:37:39 Test Item Value Reference Range Interpretation Comments POCT GLU (test code = 5573502813) 126 mg/dL 70-110 H Lab Interpretation (test code = Abnormal 29958-9) [facility] GLUCOSE (AUTOMATED)2022-06-02 22:38:41 Test Item Value Reference Range Interpretation Comments POCT GLU (test code = 4310232689) 100 mg/dL 70-110 Lab Interpretation (test code = Normal 52357-7) [facility] GLUCOSE (AUTOMATED)2022-06-02 22:38:41 Test Item Value Reference Range Interpretation Comments POCT GLU (test code = 4637259949) 100 mg/dL 70-110 Lab Interpretation (test code = Normal 02188-9) [facility] GLUCOSE (AUTOMATED)2022-06-02 18:46:38 Test Item Value Reference Range Interpretation Comments POCT GLU (test code = 3213190414) 96 mg/dL 70-110 Lab Interpretation (test code = Normal 13995-4) [facility] GLUCOSE (AUTOMATED)2022-06-02 18:46:38 Test Item Value Reference Range Interpretation Comments POCT GLU (test code = 0758311425) 96 mg/dL 70-110 Lab Interpretation (test code = Normal 63180-6) [facility] GLUCOSE (AUTOMATED)2022-06-02 02:52:15 Test Item Value Reference Range Interpretation Comments POCT GLU (test code = 6470473937) 151 mg/dL 70-110 H Lab Interpretation (test code = Abnormal 36538-2) [facility] GLUCOSE (AUTOMATED)2022-06-02 02:52:15 Test Item Value Reference Range Interpretation Comments POCT GLU (test code = 5368698357) 151 mg/dL 70-110 H Lab Interpretation (test code = Abnormal 89062-2) [facility] GLUCOSE (AUTOMATED)2022-06-01 23:55:53 Test Item Value Reference Range Interpretation Comments POCT GLU (test code = 6698954495) 136 mg/dL 70-110 H Lab Interpretation (test code = Abnormal 20053-3) [facility] 23:55:53 Test Item Value Reference Range Interpretation Comments POCT GLU (test code = 8539097306) 136 mg/dL 70-110 H Lab Interpretation (test code = Abnormal 55302-4) [id number] 20:47:04 Test Item Value Reference Range Interpretation Comments WBC (test code = 6690-2) See_Comment [A utomated message] The system [employer] generated this result transmit alexandra reference range : 4.20 - 10.70 10*3/?L. The reference range was not used to interpret this result as normal/abnormal . RBC (test code = 789-8) See_Comment L [Au tomated message] The system [employer] generated this result transmit alexandra reference range : 4.26 - 5.52 10* 6/?L. The reference r yazan was not used to interpret this result as normal/abnormal . HGB (test code = 718-7) 9.2 g/dL 12.2-16.4 L HCT (test code = 4544-3) 30.6 % 38.4-49.3 L MCH (test code = 785-6) 26.5 pg 26.1-32.7 MCV (test code = 787-2) 88.2 fL 81.7-95.6 MCHC (test code = 786-4) 30.1 g/dL 31.2-35.0 L PLT (test code = 777-3) See_Comment [Au tomated message] The system [employer] generated this result transmit alexandra reference range : 150 - 328 10*3/?L. The reference range was not used to interpret this result as normal/abnormal . MPV (test code = 10.6 fL 9.8-13.0 20694-0) RDW-CV (test code = 16.7 % 12.1-15.4 H 788-0) RDW-SD (test code = 53.4 fL 38.5-51.6 H 24889-7) NRBC x10^3 (test code = See_Comment [Au tomated message] [id number]) The system [employer] generated this result transmit alexandra reference range : 10*3/?L. The reference range was not used to interpret this result as normal/abnormal . NRBC/100 WBC (test code See_Comment [Au tomated message] = 2281622266) The system [facility] generated this result transmit alexandra reference range : 0.0 - 10.0 /100 WBC s. The reference r yazan was not used to interpret this result as normal/abnormal . IPF % (test code = 8491077915) Lab Interpretation (test Abnormal code = 47308-2) [facility] WITHOUT [id number] 20:47:04 Test Item Value Reference Range Interpretation Comments WBC (test code = 6690-2) See_Comment [A utomated message] The system [employer] generated this result transmit alexandra reference range : 4.20 - 10.70 10*3/?L. The reference range was not used to interpret this result as normal/abnormal . RBC (test code = 789-8) See_Comment L [Au tomated message] The system [facility] generated this result transmit alexandra reference range : 4.26 - 5.52 10* 6/?L. The reference r yazan was not used to interpret this result as normal/abnormal . HGB (test code = 718-7) 9.2 g/dL 12.2-16.4 L HCT (test code = 4544-3) 30.6 % 38.4-49.3 L MCH (test code = 785-6) 26.5 pg 26.1-32.7 MCV (test code = 787-2) 88.2 fL 81.7-95.6 MCHC (test code = 786-4) 30.1 g/dL 31.2-35.0 L PLT (test code = 777-3) See_Comment [Au tomated message] The system [employer] generated this result transmit alexandra reference range : 150 - 328 10*3/?L. The reference range was not used to interpret this result as normal/abnormal . MPV (test code = 10.6 fL 9.8-13.0 50224-9) RDW-CV (test code = 16.7 % 12.1-15.4 H 788-0) RDW-SD (test code = 53.4 fL 38.5-51.6 H 63393-9) NRBC x10^3 (test code = See_Comment [Au tomated message] 8234386056) The system [facility] generated this result transmit alexandra reference range : 10*3/?L. The reference range was not used to interpret this result as normal/abnormal . NRBC/100 WBC (test code See_Comment [Au tomated message] = 8802623826) The system [facility] generated this result transmit alexandra reference range : 0.0 - 10.0 /100 WBC s. The reference r yazan was not used to interpret this result as normal/abnormal . IPF % (test code = 5708125770) Lab Interpretation (test Abnormal code = 03058-2) [facility] WITHOUT [id number] 20:47:04 Test Item Value Reference Range Interpretation Comments WBC (test code = 6690-2) See_Comment [A utomated message] The system [facility] generated this result transmit alexandra reference range : 4.20 - 10.70 10*3/?L. The reference range was not used to interpret this result as normal/abnormal . RBC (test code = 789-8) See_Comment L [Au tomated message] The system [facility] generated this result transmit alexandra reference range : 4.26 - 5.52 10* 6/?L. The reference r yazan was not used to interpret this result as normal/abnormal . HGB (test code = 718-7) 9.2 g/dL 12.2-16.4 L HCT (test code = 4544-3) 30.6 % 38.4-49.3 L MCH (test code = 785-6) 26.5 pg 26.1-32.7 MCV (test code = 787-2) 88.2 fL 81.7-95.6 MCHC (test code = 786-4) 30.1 g/dL 31.2-35.0 L PLT (test code = 777-3) See_Comment [Au tomated message] The system [facility] generated this result transmit alexandra reference range : 150 - 328 10*3/?L. The reference range was not used to interpret this result as normal/abnormal . MPV (test code = 10.6 fL 9.8-13.0 57323-7) RDW-CV (test code = 16.7 % 12.1-15.4 H 788-0) RDW-SD (test code = 53.4 fL 38.5-51.6 H 34081-7) NRBC x10^3 (test code = See_Comment [Au tomated message] [id number]) The system [employer] generated this result transmit alexandra reference range : 10*3/?L. The reference range was not used to interpret this result as normal/abnormal . NRBC/100 WBC (test code See_Comment [Au tomated message] = 2911117230) The system [employer] generated this result transmit alexandra reference range : 0.0 - 10.0 /100 WBC s. The reference r yazan was not used to interpret this result as normal/abnormal . IPF % (test code = 1625985423) Lab Interpretation (test Abnormal code = 80052-6) [facility] GLUCOSE (AUTOMATED)2022-06-01 17:25:00 Test Item Value Reference Range Interpretation Comments POCT GLU (test code = 7198923924) 133 mg/dL 70-110 H Lab Interpretation (test code = Abnormal 76089-1) [facility] GLUCOSE (AUTOMATED)2022-06-01 17:25:00 Test Item Value Reference Range Interpretation Comments POCT GLU (test code = 0857482785) 133 mg/dL 70-110 H Lab Interpretation (test code = Abnormal 76153-1) [facility] GLUCOSE (AUTOMATED)2022-06-01 17:25:00 Test Item Value Reference Range Interpretation Comments POCT GLU (test code = 1567435594) 133 mg/dL 70-110 H Lab Interpretation (test code = Abnormal 13856-6) [facility] GLUCOSE (AUTOMATED)2022-06-01 13:28:05 Test Item Value Reference Range Interpretation Comments POCT GLU (test code = 6086004610) 105 mg/dL 70-110 Lab Interpretation (test code = Normal 28166-6) [facility] GLUCOSE (AUTOMATED)2022-06-01 13:28:05 Test Item Value Reference Range Interpretation Comments POCT GLU (test code = 1958135156) 105 mg/dL 70-110 Lab Interpretation (test code = Normal 09637-4) [facility] GLUCOSE (AUTOMATED)2022-06-01 13:28:05 Test Item Value Reference Range Interpretation Comments POCT GLU (test code = 1370408032) 105 mg/dL 70-110 Lab Interpretation (test code = Normal 48673-3) [facility] GLUCOSE (AUTOMATED)2022-06-01 04:01:36 Test Item Value Reference Range Interpretation Comments POCT GLU (test code = 5392997094) 124 mg/dL 70-110 H Lab Interpretation (test code = Abnormal 67097-4) [facility] GLUCOSE (AUTOMATED)2022-06-01 04:01:36 Test Item Value Reference Range Interpretation Comments POCT GLU (test code = 4748737971) 124 mg/dL 70-110 H Lab Interpretation (test code = Abnormal 04793-4) [facility] GLUCOSE (AUTOMATED)2022-06-01 04:01:36 Test Item Value Reference Range Interpretation Comments POCT GLU (test code = 8647380403) 124 mg/dL 70-110 H Lab Interpretation (test code = Abnormal 88793-2) [facility] GLUCOSE (AUTOMATED)2022-05-31 22:46:07 Test Item Value Reference Range Interpretation Comments POCT GLU (test code = 0945402845) 71 mg/dL 70-110 Lab Interpretation (test code = Normal 18760-1) [facility] GLUCOSE (AUTOMATED)2022-05-31 22:46:07 Test Item Value Reference Range Interpretation Comments POCT GLU (test code = 8954546566) 71 mg/dL 70-110 Lab Interpretation (test code = Normal 60454-7) [facility] GLUCOSE (AUTOMATED)2022-05-31 22:46:07 Test Item Value Reference Range Interpretation Comments POCT GLU (test code = 0799116215) 71 mg/dL 70-110 Lab Interpretation (test code = Normal 46321-0) [facility] 22:03:23 Test Item Value Reference Range Interpretation Comments HBsAB (test code = Positive 6685414711) HBsAb mIU/mL Semi-Quantitative (test code = 9090392715) AJ (test code = Interpretation: AJ) ?Hepatitis B Surface Antibody ? Negative - Patient is considered to be not immune to infection with HBV. ? ? Positive - Anti-HBs detected at greater than or equal to 12 mIU/mL. ?Patient is considered to be immune to infection with HBV. ? [facility]22-05-31 22:03:23 Test Item Value Reference Range Interpretation Comments HBsAB (test code = Positive 4449024503) HBsAb mIU/mL Semi-Quantitative (test code = 9875690070) AJ (test code = Interpretation: AJ) ?Hepatitis B Surface Antibody ? Negative - Patient is considered to be not immune to infection with HBV. ? ? Positive - Anti-HBs detected at greater than or equal to 12 mIU/mL. ?Patient is considered to be immune to infection with HBV. ? [facility] 22:03:23 Test Item Value Reference Range Interpretation Comments HBsAB (test code = Positive 9207503505) HBsAb mIU/mL Semi-Quantitative (test code = 7432283934) AJ (test code = Interpretation: AJ) ?Hepatitis B Surface Antibody ? Negative - Patient is considered to be not immune to infection with HBV. ? ? Positive - Anti-HBs detected at greater than or equal to 12 mIU/mL. ?Patient is considered to be immune to infection with HBV. ? [facility]22-[facility]-31 22:03:23 Test Item Value Reference Range Interpretation Comments HBsAB (test code = Positive 5060998977) HBsAb mIU/mL Semi-Quantitative (test code = 3550003835) AJ (test code = Interpretation: AJ) ?Hepatitis B Surface Antibody ? Negative - Patient is considered to be not immune to infection with HBV. ? ? Positive - Anti-HBs detected at greater than or equal to 12 mIU/mL. ?Patient is considered to be immune to infection with HBV. ? [facility]22-[facility]-31 22:03:23 Test Item Value Reference Range Interpretation Comments HBsAB (test code = Positive 6178731796) HBsAb mIU/mL Semi-Quantitative (test code = 7051493432) AJ (test code = Interpretation: AJ) ?Hepatitis B Surface Antibody ? Negative - Patient is considered to be not immune to infection with HBV. ? ? Positive - Anti-HBs detected at greater than or equal to 12 mIU/mL. ?Patient is considered to be immune to infection with HBV. ? [facility]2023-01-23 21:08:09 Test Item Value Reference Range Interpretation Comments K (test code = 7696683734) 4.0 mmol/L 3.5-5.0 Lab Interpretation (test code = Normal 07652-1) [facility] [id number] 21:08:09 Test Item Value Reference Range Interpretation Comments K (test code = 3851041552) 4.0 mmol/L 3.5-5.0 Lab Interpretation (test code = Normal 58106-6) [facility]2023-01-23 21:08:09 Test Item Value Reference Range Interpretation Comments K (test code = 1457958294) 4.0 mmol/L 3.5-5.0 Lab Interpretation (test code = Normal 11228-3) [facility] [id number] 21:08:09 Test Item Value Reference Range Interpretation Comments K (test code = 2212894273) 4.0 mmol/L 3.5-5.0 Lab Interpretation (test code = Normal 72444-1) [facility] [id number] 21:08:09 Test Item Value Reference Range Interpretation Comments K (test code = 3898663869) 4.0 mmol/L 3.5-5.0 Lab Interpretation (test code = Normal 31250-2) [facility]2023-01-23 15:40:17 Test Item Value Reference Range Interpretation Comments PHOSPHORUS (test code = 6916407932) 5.3 mg/dL 2.5-5.0 H Lab Interpretation (test code = Abnormal 29888-8) [place] [id number] 15:40:17 Test Item Value Reference Range Interpretation Comments PHOSPHORUS (test code = 9907844092) 5.3 mg/dL 2.5-5.0 H Lab Interpretation (test code = Abnormal 87714-8) [place] [id number] 15:40:17 Test Item Value Reference Range Interpretation Comments PHOSPHORUS (test code = 7150914500) 5.3 mg/dL 2.5-5.0 H Lab Interpretation (test code = Abnormal 49925-0) [facility] 15:40:17 Test Item Value Reference Range Interpretation Comments PHOSPHORUS (test code = 9694853015) 5.3 mg/dL 2.5-5.0 H Lab Interpretation (test code = Abnormal 72760-0) [facility] 15:40:17 Test Item Value Reference Range Interpretation Comments PHOSPHORUS (test code = 2540577666) 5.3 mg/dL 2.5-5.0 H Lab Interpretation (test code = Abnormal 32483-2) [facility]2023-01-23 15:40:16 Test Item Value Reference Range Interpretation Comments MAGNESIUM (test code = 2.0 mg/dL 1.7-2.4 Sligh t hemolysis 3657458615) Lab Interpretation (test Normal code = 76685-3) [facility]2023-01-23 15:40:16 Test Item Value Reference Range Interpretation Comments MAGNESIUM (test code = 2.0 mg/dL 1.7-2.4 Sligh t hemolysis 3175389726) Lab Interpretation (test Normal code = 08563-8) [facility]2023-01-23 15:40:16 Test Item Value Reference Range Interpretation Comments MAGNESIUM (test code = 2.0 mg/dL 1.7-2.4 Sligh t hemolysis 4725314461) Lab Interpretation (test Normal code = 85918-8) [facility]2023-01-23 15:40:16 Test Item Value Reference Range Interpretation Comments MAGNESIUM (test code = 2.0 mg/dL 1.7-2.4 Sligh t hemolysis 1908836670) Lab Interpretation (test Normal code = 80962-0) [facility]2023-01-23 15:40:16 Test Item Value Reference Range Interpretation Comments MAGNESIUM (test code = 2.0 mg/dL 1.7-2.4 Sligh t hemolysis 3662656351) Lab Interpretation (test Normal code = 06963-0) [facility] GLUCOSE (AUTOMATED)2022-05-31 13:31:54 Test Item Value Reference Range Interpretation Comments POCT GLU (test code = 3122470966) 88 mg/dL 70-110 Lab Interpretation (test code = Normal 86927-6[facility]:31:54 Test Item Value Reference Range Interpretation Comments POCT GLU (test code = 3945856167) 88 mg/dL 70-110 Lab Interpretation (test code = Normal 86430-7) [facility] 13:31:54 Test Item Value Reference Range Interpretation Comments POCT GLU (test code = 0587181970) 88 mg/dL 70-110 Lab Interpretation (test code = Normal 86752-0) [facility] GLUCOSE (AUTOMATED)2022-05-31 13:31:54 Test Item Value Reference Range Interpretation Comments POCT GLU (test code = 3106163479) 88 mg/dL 70-110 Lab Interpretation (test code = Normal 80269-4) [facility] GLUCOSE (AUTOMATED)2022-05-31 13:31:54 Test Item Value Reference Range Interpretation Comments POCT GLU (test code = 7578382515) 88 mg/dL 70-110 Lab Interpretation (test code = Normal 49400-8) [facility] GLUCOSE (AUTOMATED)2022-05-31 06:50:03 Test Item Value Reference Range Interpretation Comments POCT GLU (test code = 3993747780) 105 mg/dL 70-110 Lab Interpretation (test code = Normal 39126-1) [facility] 06:50:03 Test Item Value Reference Range Interpretation Comments POCT GLU (test code = 8765344371) 105 mg/dL 70-110 Lab Interpretation (test code = Normal 50648-6) [facility] 06:50:03 Test Item Value Reference Range Interpretation Comments POCT GLU (test code = 1361542175) 105 mg/dL 70-110 Lab Interpretation (test code = Normal 79697-5) [facility] GLUCOSE (AUTOMATED)2022-05-31 06:50:03 Test Item Value Reference Range Interpretation Comments POCT GLU (test code = 2978172392) 105 mg/dL 70-110 Lab Interpretation (test code = Normal 85941-0) [facility] GLUCOSE (AUTOMATED)2022-05-31 06:50:03 Test Item Value Reference Range Interpretation Comments POCT GLU (test code = 6311848072) 105 mg/dL 70-110 Lab Interpretation (test code = Normal 69377-9) [facility]30 22:15:12 Test Item Value Reference Range Interpretation Comments POCT GLU (test code = 6864791150) 95 mg/dL 70-110 Lab Interpretation (test code = Normal 09025-1) [facility] 22:15:12 Test Item Value Reference Range Interpretation Comments POCT GLU (test code = 1369324527) 95 mg/dL 70-110 Lab Interpretation (test code = Normal 58145-6) [facility] GLUCOSE (AUTOMATED)2022-05-30 22:15:12 Test Item Value Reference Range Interpretation Comments POCT GLU (test code = 4742121287) 95 mg/dL 70-110 Lab Interpretation (test code = Normal 31672-8) [facility] GLUCOSE (AUTOMATED)2022-05-30 22:15:12 Test Item Value Reference Range Interpretation Comments POCT GLU (test code = 2010282099) 95 mg/dL 70-110 Lab Interpretation (test code = Normal 58735-9) [facility] GLUCOSE (AUTOMATED)2022-05-30 22:15:12 Test Item Value Reference Range Interpretation Comments POCT GLU (test code = 1917575401) 95 mg/dL 70-110 Lab Interpretation (test code = Normal 54799-9) [facility] GLUCOSE (AUTOMATED)2022-05-30 18:01:48 Test Item Value Reference Range Interpretation Comments POCT GLU (test code = 5755796582) 123 mg/dL 70-110 H Lab Interpretation (test code = Abnormal 64124-8) [facility] GLUCOSE (AUTOMATED)2022-05-30 18:01:48 Test Item Value Reference Range Interpretation Comments POCT GLU (test code = 4824456605) 123 mg/dL 70-110 H Lab Interpretation (test code = Abnormal 15565-1) [facility] GLUCOSE (AUTOMATED)2022-05-30 18:01:48 Test Item Value Reference Range Interpretation Comments POCT GLU (test code = 3905163613) 123 mg/dL 70-110 H Lab Interpretation (test code = Abnormal 53816-2) [facility] GLUCOSE (AUTOMATED)2022-05-30 18:01:48 Test Item Value Reference Range Interpretation Comments POCT GLU (test code = 2637478735) 123 mg/dL 70-110 H Lab Interpretation (test code = Abnormal 72563-0) [facility] GLUCOSE (AUTOMATED)2022-05-30 18:01:48 Test Item Value Reference Range Interpretation Comments POCT GLU (test code = 0458499955) 123 mg/dL 70-110 H Lab Interpretation (test code = Abnormal 31325-9) [facility] GLUCOSE (AUTOMATED)2022-05-30 14:19:51 Test Item Value Reference Range Interpretation Comments POCT GLU (test code = 0332444532) 125 mg/dL 70-110 H Lab Interpretation (test code = Abnormal 62755-3) [facility] GLUCOSE (AUTOMATED)2022-05-30 14:19:51 Test Item Value Reference Range Interpretation Comments POCT GLU (test code = 6663449264) 125 mg/dL 70-110 H Lab Interpretation (test code = Abnormal 13745-3) [facility] GLUCOSE (AUTOMATED)2022-05-30 14:19:51 Test Item Value Reference Range Interpretation Comments POCT GLU (test code = 9252149310) 125 mg/dL 70-110 H Lab Interpretation (test code = Abnormal 17229-1) [facility] GLUCOSE (AUTOMATED)2022-05-30 14:19:51 Test Item Value Reference Range Interpretation Comments POCT GLU (test code = 2193889244) 125 mg/dL 70-110 H Lab Interpretation (test code = Abnormal 75396-1) [facility] GLUCOSE (AUTOMATED)2022-05-30 14:19:51 Test Item Value Reference Range Interpretation Comments POCT GLU (test code = 9467874983) 125 mg/dL 70-110 H Lab Interpretation (test code = Abnormal 55101-3) [facility] GLUCOSE (AUTOMATED)2022-05-30 02:49:34 Test Item Value Reference Range Interpretation Comments POCT GLU (test code = 7172089836) 118 mg/dL 70-110 H Lab Interpretation (test code = Abnormal 58147-7) [facility] GLUCOSE (AUTOMATED)2022-05-30 02:49:34 Test Item Value Reference Range Interpretation Comments POCT GLU (test code = 8737567100) 118 mg/dL 70-110 H Lab Interpretation (test code = Abnormal 23916-5) [facility] GLUCOSE (AUTOMATED)2022-05-30 02:49:34 Test Item Value Reference Range Interpretation Comments POCT GLU (test code = 1311567896) 118 mg/dL 70-110 H Lab Interpretation (test code = Abnormal 32675-8) [facility] GLUCOSE (AUTOMATED)2022-05-30 02:49:34 Test Item Value Reference Range Interpretation Comments POCT GLU (test code = 4904207234) 118 mg/dL 70-110 H Lab Interpretation (test code = Abnormal 26714-8) [facility] GLUCOSE (AUTOMATED)2022-05-30 02:49:34 Test Item Value Reference Range Interpretation Comments POCT GLU (test code = 2954371052) 118 mg/dL 70-110 H Lab Interpretation (test code = Abnormal 69682-8) [facility] GLUCOSE (AUTOMATED)2022-05-29 23:52:14 Test Item Value Reference Range Interpretation Comments POCT GLU (test code = 8560293828) 137 mg/dL 70-110 H Lab Interpretation (test code = Abnormal 16664-7) [facility] GLUCOSE (AUTOMATED)2022-05-29 23:52:14 Test Item Value Reference Range Interpretation Comments POCT GLU (test code = 6108549049) 137 mg/dL 70-110 H Lab Interpretation (test code = Abnormal 79285-9) [facility] GLUCOSE (AUTOMATED)2022-05-29 23:52:14 Test Item Value Reference Range Interpretation Comments POCT GLU (test code = 2925988101) 137 mg/dL 70-110 H Lab Interpretation (test code = Abnormal 70667-4) [facility] GLUCOSE (AUTOMATED)2022-05-29 23:52:14 Test Item Value Reference Range Interpretation Comments POCT GLU (test code = 8472029712) 137 mg/dL 70-110 H Lab Interpretation (test code = Abnormal 50515-0) [facility] 23:52:14 Test Item Value Reference Range Interpretation Comments POCT GLU (test code = 5890113015) 137 mg/dL 70-110 H Lab Interpretation (test code = Abnormal 93381-2) [facility] WITH [id number] 14:43:35 Test Item Value Reference Range Interpretation Comments [...] as normal/abnormal . HGB (test code = 7.4 g/dL 12.2-16.4 L 718-7) HCT (test code = 23.5 % 38.4-49.3 L 4544-3) MCV (test code = 86.7 fL 81.7-95.6 787-2) MCH (test code = 27.3 pg 26.1-32.7 785-6) MCHC (test code = 31.5 g/dL 31.2-35.0 786-4) RDW-SD (test code = 52.5 fL 38.5-51.6 H 30867-8) RDW-CV (test code = 17.0 % 12.1-15.4 H 788-0) PLT (test code = See_Comment [Automated 777-3) message] The sy stem which generated this result transmitted reference range : 150 - 328 10*3/ ?L. The reference r yazan was not used to interpret this result as normal/abnormal . MPV (test code = 11.2 fL 9.8-13.0 10394-3) NRBC/100 WBC (test See_Comment [Automat ed code = 5029756948) message] The system which generated this result transmitted reference range : 0.0 - 10.0 /100 WBCs. The refer ence range was not u sed to interpret th is result as normal/abnormal . NRBC x10^3 (test code See_Comment [Auto mated = 0327812986) message] The s ystem which generated this result transmitted reference range : 10*3/?L. The reference range was not used to interpret this result as normal/abnormal . GRAN MAT (NEUT) % 66.8 % (test code = 770-8) IMM GRAN % (test code 0.20 % = 8985965629) LYMPH % (test code = 13.8 % 736-9) MONO % (test code = 17.5 % 5905-5) EOS % (test code = 1.1 % 713-8) BASO % (test code = 0.6 % 706-2) GRAN MAT x10^3(ANC) 3.54 10*3/uL 1.99-6.95 (test code = 9341313727) IMM GRAN x10^3 (test 0.00-0.06 code = 4856048538) LYMPH x10^3 (test code 0.73 10*3/uL 1.09-3.23 L = 731-0) MONO x10^3 (test code 0.93 10*3/uL 0.36-1.02 = 742-7) EOS x10^3 (test code = 0.06 10*3/uL 0.06-0.53 711-2) BASO x10^3 (test code 0.03 10*3/uL 0.01-0.09 = 704-7) Lab Interpretation Abnormal (test code = 72511-7) [facility] WITH [id number] 14:43:35 Test Item Value Reference Range Interpretation Comments [...] as normal/abnormal . HGB (test code = 7.4 g/dL 12.2-16.4 L 718-7) HCT (test code = 23.5 % 38.4-49.3 L 4544-3) MCV (test code = 86.7 fL 81.7-95.6 787-2) MCH (test code = 27.3 pg 26.1-32.7 785-6) MCHC (test code = 31.5 g/dL 31.2-35.0 786-4) RDW-SD (test code = 52.5 fL 38.5-51.6 H 91387-7) RDW-CV (test code = 17.0 % 12.1-15.4 H 788-0) PLT (test code = See_Comment [Automated 777-3) message] The sy stem which generated this result transmitted reference range : 150 - 328 10*3/ ?L. The reference r yazan was not used to interpret this result as normal/abnormal . MPV (test code = 11.2 fL 9.8-13.0 83504-0) NRBC/100 WBC (test See_Comment [Automat ed code = 0497483585) message] The system which generated this result transmitted reference range : 0.0 - 10.0 /100 WBCs. The refer ence range was not u sed to interpret th is result as normal/abnormal . NRBC x10^3 (test code See_Comment [Auto mated = 7974082820) message] The s ystem which generated this result transmitted reference range : 10*3/?L. The reference range was not used to interpret this result as normal/abnormal . GRAN MAT (NEUT) % 66.8 % (test code = 770-8) IMM GRAN % (test code 0.20 % = [id number]) LYMPH % (test code = 13.8 % 736-9) MONO % (test code = 17.5 % 5905-5) EOS % (test code = 1.1 % 713-8) BASO % (test code = 0.6 % 706-2) GRAN MAT x10^3(ANC) 3.54 10*3/uL 1.99-6.95 (test code = 3578300421) IMM GRAN x10^3 (test 0.00-0.06 code = 9447926149) LYMPH x10^3 (test code 0.73 10*3/uL 1.09-3.23 L = 731-0) MONO x10^3 (test code 0.93 10*3/uL 0.36-1.02 = 742-7) EOS x10^3 (test code = 0.06 10*3/uL 0.06-0.53 711-2) BASO x10^3 (test code 0.03 10*3/uL 0.01-0.09 = 704-7) Lab Interpretation Abnormal (test code = 51031-1) [facility] WITH [id number] 14:43:35 Test Item Value Reference Range Interpretation Comments [...] as normal/abnormal . HGB (test code = 7.4 g/dL 12.2-16.4 L 718-7) HCT (test code = 23.5 % 38.4-49.3 L 4544-3) MCV (test code = 86.7 fL 81.7-95.6 787-2) MCH (test code = 27.3 pg 26.1-32.7 785-6) MCHC (test code = 31.5 g/dL 31.2-35.0 786-4) RDW-SD (test code = 52.5 fL 38.5-51.6 H 28052-6) RDW-CV (test code = 17.0 % 12.1-15.4 H 788-0) PLT (test code = See_Comment [Automated 777-3) message] The sy stem which generated this result transmitted reference range : 150 - 328 10*3/ ?L. The reference r yazan was not used to interpret this result as normal/abnormal . MPV (test code = 11.2 fL 9.8-13.0 15182-4) NRBC/100 WBC (test See_Comment [Automat ed code = 4907596069) message] The system which generated this result transmitted reference range : 0.0 - 10.0 /100 WBCs. The refer ence range was not u sed to interpret th is result as normal/abnormal . NRBC x10^3 (test code See_Comment [Auto mated = 1512532985) message] The s ystem which generated this result transmitted reference range : 10*3/?L. The reference range was not used to interpret this result as normal/abnormal . GRAN MAT (NEUT) % 66.8 % (test code = 770-8) IMM GRAN % (test code 0.20 % = 5250398169) LYMPH % (test code = 13.8 % 736-9) MONO % (test code = 17.5 % 5905-5) EOS % (test code = 1.1 % 713-8) BASO % (test code = 0.6 % 706-2) GRAN MAT x10^3(ANC) 3.54 10*3/uL 1.99-6.95 (test code = 4383377894) IMM GRAN x10^3 (test 0.00-0.06 code = 7833772494) LYMPH x10^3 (test code 0.73 10*3/uL 1.09-3.23 L = 731-0) MONO x10^3 (test code 0.93 10*3/uL 0.36-1.02 = 742-7) EOS x10^3 (test code = 0.06 10*3/uL 0.06-0.53 711-2) BASO x10^3 (test code 0.03 10*3/uL 0.01-0.09 = 704-7) Lab Interpretation Abnormal (test code = 91965-3) [facility] WITH [id number] 14:43:35 Test Item Value Reference Range Interpretation Comments [...] as normal/abnormal . HGB (test code = 7.4 g/dL 12.2-16.4 L 718-7) HCT (test code = 23.5 % 38.4-49.3 L 4544-3) MCV (test code = 86.7 fL 81.7-95.6 787-2) MCH (test code = 27.3 pg 26.1-32.7 785-6) MCHC (test code = 31.5 g/dL 31.2-35.0 786-4) RDW-SD (test code = 52.5 fL 38.5-51.6 H 81802-4) RDW-CV (test code = 17.0 % 12.1-15.4 H 788-0) PLT (test code = See_Comment [Automated 777-3) message] The sy stem which generated this result transmitted reference range : 150 - 328 10*3/ ?L. The reference r yazan was not used to interpret this result as normal/abnormal . MPV (test code = 11.2 fL 9.8-13.0 77414-4) NRBC/100 WBC (test See_Comment [Automat ed code = 6685408526) message] The system which generated this result transmitted reference range : 0.0 - 10.0 /100 WBCs. The refer ence range was not u sed to interpret th is result as normal/abnormal . NRBC x10^3 (test code See_Comment [Auto mated = 8870802449) message] The s ystem which generated this result transmitted reference range : 10*3/?L. The reference range was not used to interpret this result as normal/abnormal . GRAN MAT (NEUT) % 66.8 % (test code = 770-8) IMM GRAN % (test code 0.20 % = 3956703391) LYMPH % (test code = 13.8 % 736-9) MONO % (test code = 17.5 % 5905-5) EOS % (test code = 1.1 % 713-8) BASO % (test code = 0.6 % 706-2) GRAN MAT x10^3(ANC) 3.54 10*3/uL 1.99-6.95 (test code = 3099678914) IMM GRAN x10^3 (test 0.00-0.06 code = 0233179291) LYMPH x10^3 (test code 0.73 10*3/uL 1.09-3.23 L = 731-0) MONO x10^3 (test code 0.93 10*3/uL 0.36-1.02 = 742-7) EOS x10^3 (test code = 0.06 10*3/uL 0.06-0.53 711-2) BASO x10^3 (test code 0.03 10*3/uL 0.01-0.09 = 704-7) Lab Interpretation Abnormal (test code = 38723-7) [facility] WITH [id number] 14:43:35 Test Item Value Reference Range Interpretation Comments [...] as normal/abnormal . HGB (test code = 7.4 g/dL 12.2-16.4 L 718-7) HCT (test code = 23.5 % 38.4-49.3 L 4544-3) MCV (test code = 86.7 fL 81.7-95.6 787-2) MCH (test code = 27.3 pg 26.1-32.7 785-6) MCHC (test code = 31.5 g/dL 31.2-35.0 786-4) RDW-SD (test code = 52.5 fL 38.5-51.6 H 19240-7) RDW-CV (test code = 17.0 % 12.1-15.4 H 788-0) PLT (test code = See_Comment [Automated 777-3) message] The sy stem which generated this result transmitted reference range : 150 - 328 10*3/ ?L. The reference r yazan was not used to interpret this result as normal/abnormal . MPV (test code = 11.2 fL 9.8-13.0 66587-5) NRBC/100 WBC (test See_Comment [Automat ed code = 4731046143) message] The system which generated this result transmitted reference range : 0.0 - 10.0 /100 WBCs. The refer ence range was not u sed to interpret th is result as normal/abnormal . NRBC x10^3 (test code See_Comment [Auto mated = 0229032548) message] The s ystem which generated this result transmitted reference range : 10*3/?L. The reference range was not used to interpret this result as normal/abnormal . GRAN MAT (NEUT) % 66.8 % (test code = 770-8) IMM GRAN % (test code 0.20 % = 9601424812) LYMPH % (test code = 13.8 % 736-9) MONO % (test code = 17.5 % 5905-5) EOS % (test code = 1.1 % 713-8) BASO % (test code = 0.6 % 706-2) GRAN MAT x10^3(ANC) 3.54 10*3/uL 1.99-6.95 (test code = 0608995075) IMM GRAN x10^3 (test 0.00-0.06 code = 6386147305) LYMPH x10^3 (test code 0.73 10*3/uL 1.09-3.23 L = 731-0) MONO x10^3 (test code 0.93 10*3/uL 0.36-1.02 = 742-7) EOS x10^3 (test code = 0.06 10*3/uL 0.06-0.53 711-2) BASO x10^3 (test code 0.03 10*3/uL 0.01-0.09 = 704-7) Lab Interpretation Abnormal (test code = 04300-2) [facility] GLUCOSE (AUTOMATED)2022-05-29 13:40:53 Test Item Value Reference Range Interpretation Comments POCT GLU (test code = 3783847178) 114 mg/dL 70-110 H Lab Interpretation (test code = Abnormal 64910-9) [facility] GLUCOSE (AUTOMATED)2022-05-29 13:40:53 Test Item Value Reference Range Interpretation Comments POCT GLU (test code = 3660278135) 114 mg/dL 70-110 H Lab Interpretation (test code = Abnormal 04352-3) [facility] GLUCOSE (AUTOMATED)2022-05-29 13:40:53 Test Item Value Reference Range Interpretation Comments POCT GLU (test code = 1453792583) 114 mg/dL 70-110 H Lab Interpretation (test code = Abnormal 42094-1) [facility] GLUCOSE (AUTOMATED)2022-05-29 13:40:53 Test Item Value Reference Range Interpretation Comments POCT GLU (test code = 3112362842) 114 mg/dL 70-110 H Lab Interpretation (test code = Abnormal 99075-7) [facility] GLUCOSE (AUTOMATED)2022-05-29 13:40:53 Test Item Value Reference Range Interpretation Comments POCT GLU (test code = 1093296968) 114 mg/dL 70-110 H Lab Interpretation (test code = Abnormal 31318-4) [facility] METABOLIC PANEL (NA, K, CL, CO2, GLUCOSE, BUN, CREATININE, CA)2022-05-29 12:11:32 Test Item Value Reference Range Interpretation Comments NA (test code = 133 mmol/L 135-145 L 7941437519) K (test code = 4.4 mmol/L 3.5-5.0 6880229654) CL (test code = 103 mmol/L 98-108 3851079838) CO2 TOTAL (test code = 18 mmol/L 23-31 L 0797424337) AGAP (test code = 2-16 3645204652) BUN (test code = 55 mg/dL 7-23 H 8671084317) GLUCOSE (test code = 102 mg/dL 70-110 0557307718) CREATININE (test code = 8.66 mg/dL 0.60-1.25 H 6998466162) CALCIUM (test code = 8.8 mg/dL 8.6-10.6 3203045817) eGFR (test code = mL/min/1.73m2 8350194669) AJ (test code = AJ) Association of [...] tests). Lab Interpretation Abnormal (test code = 22667-6) [facility] Test Item Value Reference Range Interpretation Comments MAGNESIUM (test code = 2991219957) 2.2 mg/dL 1.7-2.4 Lab Interpretation (test code = Normal 27917-4) [facility] 12:11:32 Test Item Value Reference Range Interpretation Comments PHOSPHORUS (test code = 7381466850) 5.4 mg/dL 2.5-5.0 H Lab Interpretation (test code = Abnormal 02271-0) [facility] (NA, K, CL, CO2, GLUCOSE, BUN, CREATININE, CA)2022-05-29 12:11:32 Test Item Value Reference Range Interpretation Comments NA (test code = 133 mmol/L 135-145 L 6799296674) K (test code = 4.4 mmol/L 3.5-5.0 2146979107) CL (test code = 103 mmol/L 98-108 3768439848) CO2 TOTAL (test code = 18 mmol/L 23-31 L 3041330113) AGAP (test code = 2-16 5473405509) BUN (test code = 55 mg/dL 7-23 H 8126641000) GLUCOSE (test code = 102 mg/dL 70-110 5233309134) CREATININE (test code = 8.66 mg/dL 0.60-1.25 H 4488642837) CALCIUM (test code = 8.8 mg/dL 8.6-10.6 3854893894) eGFR (test code = mL/min/1.73m2 0718983218) AJ (test code = AJ) Association of [...] tests). Lab Interpretation Abnormal (test code = 50507-3) [facility] 12:11:32 Test Item Value Reference Range Interpretation Comments MAGNESIUM (test code = 0880650678) 2.2 mg/dL 1.7-2.4 Lab Interpretation (test code = Normal 51504-4) [facility] 12:11:32 Test Item Value Reference Range Interpretation Comments PHOSPHORUS (test code = 3440341347) 5.4 mg/dL 2.5-5.0 H Lab Interpretation (test code = Abnormal 18184-4) [facility] (NA, K, CL, CO2, GLUCOSE, BUN, CREATININE, CA)2022-05-29 12:11:32 Test Item Value Reference Range Interpretation Comments NA (test code = 133 mmol/L 135-145 L 7922210542) K (test code = 4.4 mmol/L 3.5-5.0 6482519409) CL (test code = 103 mmol/L 98-108 5364790400) CO2 TOTAL (test code = 18 mmol/L 23-31 L 1488609922) AGAP (test code = 2-16 3299764671) BUN (test code = 55 mg/dL 7-23 H 8438041599) GLUCOSE (test code = 102 mg/dL 70-110 5103971273) CREATININE (test code = 8.66 mg/dL 0.60-1.25 H 8133179749) CALCIUM (test code = 8.8 mg/dL 8.6-10.6 0887940070) eGFR (test code = mL/min/1.73m2 2630625081) AJ (test code = AJ) Association of [...] tests). Lab Interpretation Abnormal (test code = 29110-3) [facility] 12:11:32 Test Item Value Reference Range Interpretation Comments MAGNESIUM (test code = 8611087464) 2.2 mg/dL 1.7-2.4 Lab Interpretation (test code = Normal 52405-2) [facility] 12:11:32 Test Item Value Reference Range Interpretation Comments PHOSPHORUS (test code = 9518179241) 5.4 mg/dL 2.5-5.0 H Lab Interpretation (test code = Abnormal 48061-6) [facility] (NA, K, CL, CO2, GLUCOSE, BUN, CREATININE, CA)2022-05-29 12:11:32 Test Item Value Reference Range Interpretation Comments NA (test code = 133 mmol/L 135-145 L 9112424628) K (test code = 4.4 mmol/L 3.5-5.0 5378762705) CL (test code = 103 mmol/L 98-108 7628348154) CO2 TOTAL (test code = 18 mmol/L 23-31 L 6461541306) AGAP (test code = 2-16 9238007428) BUN (test code = 55 mg/dL 7-23 H 7970432071) GLUCOSE (test code = 102 mg/dL 70-110 6765052588) CREATININE (test code = 8.66 mg/dL 0.60-1.25 H 2470999859) CALCIUM (test code = 8.8 mg/dL 8.6-10.6 8568318021) eGFR (test code = mL/min/1.73m2 9979214801) AJ (test code = AJ) Association of [...] tests). Lab Interpretation Abnormal (test code = 38126-3) [facility] 12:11:32 Test Item Value Reference Range Interpretation Comments MAGNESIUM (test code = 6958595277) 2.2 mg/dL 1.7-2.4 Lab Interpretation (test code = Normal 18273-3) [facility] 12:11:32 Test Item Value Reference Range Interpretation Comments PHOSPHORUS (test code = 9509572830) 5.4 mg/dL 2.5-5.0 H Lab Interpretation (test code = Abnormal 67224-7) [facility] METABOLIC PANEL (NA, K, CL, CO2, GLUCOSE, BUN, CREATININE, CA)2022-05-29 12:11:32 Test Item Value Reference Range Interpretation Comments NA (test code = 133 mmol/L 135-145 L 2796877195) K (test code = 4.4 mmol/L 3.5-5.0 5267606489) CL (test code = 103 mmol/L 98-108 8531741898) CO2 TOTAL (test code = 18 mmol/L 23-31 L 8345435685) AGAP (test code = 2-16 9436687731) BUN (test code = 55 mg/dL 7-23 H 3263023713) GLUCOSE (test code = 102 mg/dL 70-110 5229212583) CREATININE (test code = 8.66 mg/dL 0.60-1.25 H 9702234180) CALCIUM (test code = 8.8 mg/dL 8.6-10.6 7171088182) eGFR (test code = mL/min/1.73m2 6984533549) AJ (test code = AJ) Association of [...] tests). Lab Interpretation Abnormal (test code = 68214-7) [facility] 12:11:32 Test Item Value Reference Range Interpretation Comments MAGNESIUM (test code = 9611931927) 2.2 mg/dL 1.7-2.4 Lab Interpretation (test code = Normal 38638-8) [facility] 12:11:32 Test Item Value Reference Range Interpretation Comments PHOSPHORUS (test code = 2257426429) 5.4 mg/dL 2.5-5.0 H Lab Interpretation (test code = Abnormal 16525-7) [facility] GLUCOSE (AUTOMATED)2022-05-29 03:13:05 Test Item Value Reference Range Interpretation Comments POCT GLU (test code = 2030370701) 140 mg/dL 70-110 H Lab Interpretation (test code = Abnormal 62281-2) [facility] GLUCOSE (AUTOMATED)2022-05-29 03:13:05 Test Item Value Reference Range Interpretation Comments POCT GLU (test code = 5970110936) 140 mg/dL 70-110 H Lab Interpretation (test code = Abnormal 35231-5) [facility] GLUCOSE (AUTOMATED)2022-05-29 03:13:05 Test Item Value Reference Range Interpretation Comments POCT GLU (test code = 6416251708) 140 mg/dL 70-110 H Lab Interpretation (test code = Abnormal 63474-7) [facility] GLUCOSE (AUTOMATED)2022-05-29 03:13:05 Test Item Value Reference Range Interpretation Comments POCT GLU (test code = 1459613726) 140 mg/dL 70-110 H Lab Interpretation (test code = Abnormal 95375-0) [facility] GLUCOSE (AUTOMATED)2022-05-29 03:13:05 Test Item Value Reference Range Interpretation Comments POCT GLU (test code = 6613109592) 140 mg/dL 70-110 H Lab Interpretation (test code = Abnormal 25418-7) [facility] [id number] 22:12:25 Test Item Value Reference Range Interpretation Comments PTH-INTACT (test code = 203.2 pg/mL 12.0-88.0 H 0933350913) PTH-CA Interpretation [facility] (test code = 6674377549) nadine a needed for interpretation. CALCIUM (test code = 8.7 mg/dL 8.6-10.6 2629137806) Lab Interpretation (test Abnormal code = 57170-5) [facility] acute hospital PTH CALCIUM [id number] 22:12:25 Test Item Value Reference Range Interpretation Comments PTH-INTACT (test code = 203.2 pg/mL 12.0-88.0 H 3442607093) PTH-CA Interpretation [facility] (test code = 9329792619) nadine a needed for interpretation. CALCIUM (test code = 8.7 mg/dL 8.6-10.6 9018321676) Lab Interpretation (test Abnormal code = 14171-3) General acute hospital PTH CALCIUM [id number] 22:12:25 Test Item Value Reference Range Interpretation Comments PTH-INTACT (test code = 203.2 pg/mL 12.0-88.0 H 1910300579) PTH-CA Interpretation [facility] (test code = 6047118557) nadine a needed for interpretation. CALCIUM (test code = 8.7 mg/dL 8.6-10.6 5722540646) Lab Interpretation (test Abnormal code = 93282-1) General acute hospital PTH CALCIUM [id number] 22:12:25 Test Item Value Reference Range Interpretation Comments PTH-INTACT (test code = 203.2 pg/mL 12.0-88.0 H 1189529781) PTH-CA Interpretation [facility] (test code = 9370708109) nadine a needed for interpretation. CALCIUM (test code = 8.7 mg/dL 8.6-10.6 8728947988) Lab Interpretation (test Abnormal code = 97957-2) General acute hospital PTH CALCIUM [id number] 22:12:25 Test Item Value Reference Range Interpretation Comments PTH-INTACT (test code = 203.2 pg/mL 12.0-88.0 H 7824590279) PTH-CA Interpretation [facility] (test code = 3508261766) nadine a needed for interpretation. CALCIUM (test code = 8.7 mg/dL 8.6-10.6 0102348428) Lab Interpretation (test Abnormal code = 45191-7) [facility] [id number] 21:21:47 Test Item Value Reference Range Interpretation Comments VIT D 25OH (test code = 78 ng/mL 25-80 31325-4) AJ (test code = AJ) Deficiency: <20 ng/mLInsufficiency : 20-24 ng/mLOptimal: 25-80 ng/mL Lab Interpretation (test Normal code = 06428-3) [facility] [id number] 21:21:47 Test Item Value Reference Range Interpretation Comments VIT D 25OH (test code = 78 ng/mL 25-80 06172-3) AJ (test code = AJ) Deficiency: <20 ng/mLInsufficiency : 20-24 ng/mLOptimal: 25-80 ng/mL Lab Interpretation (test Normal code = 73652-0) [facility], [id number] 21:21:47 Test Item Value Reference Range Interpretation Comments VIT D 25OH (test code = 78 ng/mL 25-80 66660-9) AJ (test code = AJ) Deficiency: <20 ng/mLInsufficiency : 20-24 ng/mLOptimal: 25-80 ng/mL Lab Interpretation (test Normal code = 17657-4) [facility] [id number] 21:21:47 Test Item Value Reference Range Interpretation Comments VIT D 25OH (test code = 78 ng/mL 25-80 28766-6) AJ (test code = AJ) Deficiency: <20 ng/mLInsufficiency : 20-24 ng/mLOptimal: 25-80 ng/mL Lab Interpretation (test Normal code = 19836-9) [facility] [id number] 21:21:47 Test Item Value Reference Range Interpretation Comments VIT D 25OH (test code = 78 ng/mL 25-80 86711-4) AJ (test code = AJ) Deficiency: <20 ng/mLInsufficiency : 20-24 ng/mLOptimal: 25-80 ng/mL Lab Interpretation (test Normal code = 83899-4) [facility] 17:22:42 Test Item Value Reference Range Interpretation Comments Height (test code = in 1687756195) Weight (test code = lbs 9363405904) Systolic BP (test code mmHg = 3106606013) Diastolic BP (test code mmHg = 1175835614) Heart Rate (test code = bpm 4640851446) BSA (test code = 2.24 m2 6597065126) AV regurgitation 292.2 ms pressure 1/2 time (test code = 0758261796) AI dec slope (test code 446.00 cm/s2 = 9694855225) AI max cortney (test code = 445.00 cm/s 6018509077) AI max PG (test code = 79.20 mm[Hg] 9845771744) LVIDD (test code = 6.30 cm 3108979819) Left Ventricular End 201.8 mL Diastolic Volume by Teichholz Method (test code = 2913018) IVS (test code = 1.30 cm 6017443919) Interventricular Septum 1.30 cm Diastolic Thickness by 2D (test code = 1042424) LVPWD (test code = 1.34 cm 8970503780) PW (test code = 1.34 cm 0.6-1.8 0262037725) EF(Teich) (test code = 41.40 % 7114224161) LVIDS (test code = 5.00 cm 7080547793) Left Ventricular End 118.2 mL Systolic Volume by Teichholz Method (test code = 7671330) FS (test code = 21 % 5768858848) EF - 2D (test code = 41.40 % 39199371) LVOT diameter (test 2.19 cm code = 0758080963) LVOT area (test code = 3.80 cm2 0065583630) Ao root diam (test code 3.40 cm = 6905068531) Aortic root (test code 3.4 cm = 6658956827) Ao root annulus (test 3.4 cm code = 4187876916) LA size (test code = 5.6 cm 7546104528) ACS (test code = 0.78 cm 0644492630) TR Peak Cortney (test code 306.8 cm/s = 6933185088) Triscuspid Valve mmHg Regurgitation Peak Gradient (test code = 3988019705) PV REGURGITATION PEAK mmHg GRADIENT (test code = 7222351922) MV Peak E Cortney (test 135.9 cm/s code = 4539726863) MV Peak A Cortney (test 82.6 cm/s code = 5110521781) E/A ratio (test code = ratio 3622549061) E wave decelartion time 0.15 s (test code = 4299220266) MV Prop V (test code = 46.70 cm/s 9824426830) MV E/e' septal (test 4.6 cm/s code = 8548634509) LVOT stroke volume 106.70 cm3 (test code = 7159680494) LVOT peak cortney (test 140.2 cm/s code = 2430867885) LVOT mn grad (test code mmHg = 8817686614) AV LVOT peak gradient mmHg (test code = 3805378646) LVOT peak VTI (test 28.4 cm code = 0960604819) LV V1 mean (test code = 91.90 cm/s 9182948723) Left Ventricular 8.1 L/min Cardiac Output (test code = 0226591) Aortic HR (test code = BPM 2201574795) Aortic valve mean 251.6 cm/s velocity (test code = 1444245052) Ao peak cortney (test code 360.5 cm/s = 4955904969) Ao VTI (test code = 77.7 cm 7562511017) AV area by cont VTI 1.4 cm2 (test code = 6221470513) AV area peak cortney (test 1.5 cm2 code = 6904022869) Ao max PG (test code = 52.00 mm[Hg] 3130522366) AV peak gradient (test mmHg code = 6620854740) AV valve area (test 1.37 cm2 code = 0283889701) AV mean gradient (test mmHg code = 6229680295) Tapse (test code = 1.51 cm 0071553846) LV mass 2D (test code = 438.7 g 2138056323) LAV(MOD-sp4) (test code 118.70 mL = 9964341533) LA Volume Index (BP) 53.7 mL/m2 (test code = 2901029406) LA volume (BP) (test 120.4 mL code = 4045288171) LAV(MOD-sp2) (test code 120.40 mL = 7802166883) IVC Diam Exp(MM) (test 2.60 cm code = 3935288845) IVC Diam Ins(MM) (test 2.14 cm code = 8237980596) LV mass index 2D (test 195.85 g/m2 code = 7829846813) A4C EF (test code = 27.00 % 7394951294) EF(sp4-el) (test code = 26.60 % 1104924930) SV(MOD-sp4) (test code 65.90 mL = 4461825219) SV(sp4-el) (test code = 66.40 mL 2975764726) LV Diastolic Volume 265.2 mL (BP) (test code = 6679914561) A2C EF (test code = 38.30 % 2937333950) EF(MOD-bp) (test code = 33.90 % 2265302734) EF(sp2-el) (test code = 38.80 % 8802640768) LV Systolic Volume (BP) 175.3 mL (test code = 1946325847) SV(MOD-bp) (test code = 89.90 mL 0487079642) SV(MOD-sp2) (test code 102.20 mL = 8543035634) EF (test code = 2929851371) Left Ventricular Stroke 89.9 mL Volume by 2-D Biplane-MOD (test code = 6132766) Radiology Study observation (narrative) (test code = 58017-8) AJ (test code = AJ) ?Left?Ventricle: Left ventricle is severely dilated. Dilated by LV volume index calculation. ?Increased wall thickness. Severely increased ventricular mass. There is mild eccentric hypertrophy. Prominent trabeculations are seen in the LV apex and along anterolateral wall. Septal motion is normal. . Moderate global hypokinesis present. Moderately reduced systolic function with a visually estimated EF of 30 - 35%. EF by 2D Winkler biplane is 34%. There is grade 2 diastolic dysfunction. Elevated left ventricular filling pressure. ?Right?Ventricle: Right ventricle is moderately dilated. Mildly reduced systolic function. ?Aortic?Valve: Consistent with moderate aortic stenosis. AV mean gradient is 28.9 mmHg. AV peak velocity is 360.5 cm/s. LVOT diameter is 2.19 cm. AV area by continuity VTI is 1.4 cm2. ?Tricuspid?Valve: Moderate transvalvular regurgitation. There is moderate pulmonary hypertension. ?Right ventricular systolic pressure is 55-60 mmHg. ?Pericardium: Trace circumferential pericardial effusion present. Left VentricleLeft ventricle is severely dilated. Dilated by LV volume index calculation. Increased wall thickness. Severely increased ventricular mass. There is mild eccentric hypertrophy. Prominent trabeculations are seen in the LV apex and along anterolateral wall. Septal motion is normal. . Moderate global hypokinesis present. Moderately reduced systolic function with a visually estimated EF of 30 - 35%. EF by 2D Winkler biplane is 34%. There is grade 2 diastolic dysfunction. Elevated left ventricular filling pressure.Right VentricleRight ventricle is moderately dilated. Mildly reduced systolic function. Echocardiographic features suggestive of prominent trabeculation and moderator band.Left AtriumLeft atrium is severely dilated.Right AtriumRight atrium is severely dilated.IVC/SVCIVC diameter is greater than 21 mm and decreases less than 50% during inspiration; therefore the estimated right atrial pressure is elevated (~15 mmHg).Mitral ValveMildly thickened leaflets. Mildly calcified leaflets. Moderate mitral annular calcification. Mild transvalvular regurgitation. No stenosis.Tricuspid ValveTricuspid valve structure is normal. Moderate transvalvular regurgitation. There is moderate pulmonary hypertension. Right ventricular systolic pressure is 55-60 mmHg. No stenosis.Aortic ValveTricuspid. Moderately thickened cusps. Moderately calcified cusps. Moderate transvalvular regurgitation. Consistent with moderate aortic stenosis. AV mean gradient is 28.9 mmHg. AV peak velocity is 360.5 cm/s. LVOT diameter is 2.19 cm. AV area by continuity VTI is 1.4 cm2.Pulmonic ValveValve structure is normal. Mild transvalvular regurgitation. No stenosis.Ascending AortaNormal sized annulus and sinus of Valsalva.PericardiumTra ce circumferential pericardial effusion present.Study DetailsStudy quality was adequate. A complete echocardiogram was performed using 2D, color flow Doppler and spectral Doppler. 3 mL of Optison ultrasound enhancing agent used. Patient exhibited sinus rhythm. [facility] 17:22:42 Test Item Value Reference Range Interpretation Comments Height (test code = in 7068985079) Weight (test code = lbs 4130689362) Systolic BP (test code mmHg = 8718872316) Diastolic BP (test code mmHg = 2096911851) Heart Rate (test code = bpm 7538131618) BSA (test code = 2.24 m2 9253878021) AV regurgitation 292.2 ms pressure 1/2 time (test code = 5192456802) AI dec slope (test code 446.00 cm/s2 = 0005139236) AI max cortney (test code = 445.00 cm/s 0195192575) AI max PG (test code = 79.20 mm[Hg] 6366311788) LVIDD (test code = 6.30 cm 8311476468) Left Ventricular End 201.8 mL Diastolic Volume by Teichholz Method (test code = 9780426) IVS (test code = 1.30 cm 2057396221) Interventricular Septum 1.30 cm Diastolic Thickness by 2D (test code = 4344067) LVPWD (test code = 1.34 cm 9343089184) PW (test code = 1.34 cm 0.6-1.2 8475675058) EF(Teich) (test code = 41.40 % 0551277548) LVIDS (test code = 5.00 cm 4530136354) Left Ventricular End 118.2 mL Systolic Volume by Teichholz Method (test code = 9652831) FS (test code = 21 % 5124710681) EF - 2D (test code = 41.40 % 50004240) LVOT diameter (test 2.19 cm code = 0438813573) LVOT area (test code = 3.80 cm2 4632848284) Ao root diam (test code 3.40 cm = 7972929180) Aortic root (test code 3.4 cm = 8645753983) Ao root annulus (test 3.4 cm code = 6016706627) LA size (test code = 5.6 cm 7385844589) ACS (test code = 0.78 cm 2432875760) TR Peak Cortney (test code 306.8 cm/s = 3364625768) Triscuspid Valve mmHg Regurgitation Peak Gradient (test code = 0724446864) PV REGURGITATION PEAK mmHg GRADIENT (test code = 3729818168) MV Peak E Cortney (test 135.9 cm/s code = 8400153302) MV Peak A Cortney (test 82.6 cm/s code = 3942112440) E/A ratio (test code = ratio 8683320119) E wave decelartion time 0.15 s (test code = 9238823957) MV Prop V (test code = 46.70 cm/s 2214028975) MV E/e' septal (test 4.6 cm/s code = 5936691206) LVOT stroke volume 106.70 cm3 (test code = 5829244854) LVOT peak cortney (test 140.2 cm/s code = 4682972162) LVOT mn grad (test code mmHg = 2146543998) AV LVOT peak gradient mmHg (test code = 1339194074) LVOT peak VTI (test 28.4 cm code = 4166864356) LV V1 mean (test code = 91.90 cm/s 6883889905) Left Ventricular 8.1 L/min Cardiac Output (test code = 0952472) Aortic HR (test code = BPM 2485462801) Aortic valve mean 251.6 cm/s velocity (test code = 8057476032) Ao peak cortney (test code 360.5 cm/s = 5132047411) Ao VTI (test code = 77.7 cm 6997904109) AV area by cont VTI 1.4 cm2 (test code = 6582819262) AV area peak cortney (test 1.5 cm2 code = 7493833397) Ao max PG (test code = 52.00 mm[Hg] 1567987782) AV peak gradient (test mmHg code = 9862564884) AV valve area (test 1.37 cm2 code = 7974245117) AV mean gradient (test mmHg code = 5906255243) Tapse (test code = 1.51 cm 1708668497) LV mass 2D (test code = 438.7 g 8910735696) LAV(MOD-sp4) (test code 118.70 mL = 5637800464) LA Volume Index (BP) 53.7 mL/m2 (test code = 7086544530) LA volume (BP) (test 120.4 mL code = 4517223830) LAV(MOD-sp2) (test code 120.40 mL = 4513683319) IVC Diam Exp(MM) (test 2.60 cm code = 4013522357) IVC Diam Ins(MM) (test 2.14 cm code = 0241683941) LV mass index 2D (test 195.85 g/m2 code = 0523890526) A4C EF (test code = 27.00 % 5780258753) EF(sp4-el) (test code = 26.60 % 2924441298) SV(MOD-sp4) (test code 65.90 mL = 3574239443) SV(sp4-el) (test code = 66.40 mL 5373845341) LV Diastolic Volume 265.2 mL (BP) (test code = 4286124721) A2C EF (test code = 38.30 % 0591219098) EF(MOD-bp) (test code = 33.90 % 2754640955) EF(sp2-el) (test code = 38.80 % 1812254914) LV Systolic Volume (BP) 175.3 mL (test code = 7496484080) SV(MOD-bp) (test code = 89.90 mL 3032464047) SV(MOD-sp2) (test code 102.20 mL = 1901656743) EF (test code = 3985301674) Left Ventricular Stroke 89.9 mL Volume by 2-D Biplane-MOD (test code = 0595685) Radiology Study observation (narrative) (test code = 11661-3) AJ (test code = AJ) ?Left?Ventricle: Left ventricle is severely dilated. Dilated by LV volume index calculation. ?Increased wall thickness. Severely increased ventricular mass. There is mild eccentric hypertrophy. Prominent trabeculations are seen in the LV apex and along anterolateral wall. Septal motion is normal. . Moderate global hypokinesis present. Moderately reduced systolic function with a visually estimated EF of 30 - 35%. EF by 2D Winkler biplane is 34%. There is grade 2 diastolic dysfunction. Elevated left ventricular filling pressure. ?Right?Ventricle: Right ventricle is moderately dilated. Mildly reduced systolic function. ?Aortic?Valve: Consistent with moderate aortic stenosis. AV mean gradient is 28.9 mmHg. AV peak velocity is 360.5 cm/s. LVOT diameter is 2.19 cm. AV area by continuity VTI is 1.4 cm2. ?Tricuspid?Valve: Moderate transvalvular regurgitation. There is moderate pulmonary hypertension. ?Right ventricular systolic pressure is 55-60 mmHg. ?Pericardium: Trace circumferential pericardial effusion present. Left VentricleLeft ventricle is severely dilated. Dilated by LV volume index calculation. Increased wall thickness. Severely increased ventricular mass. There is mild eccentric hypertrophy. Prominent trabeculations are seen in the LV apex and along anterolateral wall. Septal motion is normal. . Moderate global hypokinesis present. Moderately reduced systolic function with a visually estimated EF of 30 - 35%. EF by 2D Winkler biplane is 34%. There is grade 2 diastolic dysfunction. Elevated left ventricular filling pressure.Right VentricleRight ventricle is moderately dilated. Mildly reduced systolic function. Echocardiographic features suggestive of prominent trabeculation and moderator band.Left AtriumLeft atrium is severely dilated.Right AtriumRight atrium is severely dilated.IVC/SVCIVC diameter is greater than 21 mm and decreases less than 50% during inspiration; therefore the estimated right atrial pressure is elevated (~15 mmHg).Mitral ValveMildly thickened leaflets. Mildly calcified leaflets. Moderate mitral annular calcification. Mild transvalvular regurgitation. No stenosis.Tricuspid ValveTricuspid valve structure is normal. Moderate transvalvular regurgitation. There is moderate pulmonary hypertension. Right ventricular systolic pressure is 55-60 mmHg. No stenosis.Aortic ValveTricuspid. Moderately thickened cusps. Moderately calcified cusps. Moderate transvalvular regurgitation. Consistent with moderate aortic stenosis. AV mean gradient is 28.9 mmHg. AV peak velocity is 360.5 cm/s. LVOT diameter is 2.19 cm. AV area by continuity VTI is 1.4 cm2.Pulmonic ValveValve structure is normal. Mild transvalvular regurgitation. No stenosis.Ascending AortaNormal sized annulus and sinus of Valsalva.PericardiumTra ce circumferential pericardial effusion present.Study DetailsStudy quality was adequate. A complete echocardiogram was performed using 2D, color flow Doppler and spectral Doppler. 3 mL of Optison ultrasound enhancing agent used. Patient exhibited sinus rhythm. [facility] 17:22:42 Test Item Value Reference Range Interpretation Comments Height (test code = in 8450799494) Weight (test code = lbs 8712654396) Systolic BP (test code mmHg = 3291198609) Diastolic BP (test code mmHg = 7229504621) Heart Rate (test code = bpm 3388351846) BSA (test code = 2.24 m2 8278395156) AV regurgitation 292.2 ms pressure 1/2 time (test code = 3624264249) AI dec slope (test code 446.00 cm/s2 = 7511085669) AI max cortney (test code = 445.00 cm/s 1889631894) AI max PG (test code = 79.20 mm[Hg] 4576758206) LVIDD (test code = 6.30 cm 2090973992) Left Ventricular End 201.8 mL Diastolic Volume by Teichholz Method (test code = 7018276) IVS (test code = 1.30 cm 5887248412) Interventricular Septum 1.30 cm Diastolic Thickness by 2D (test code = 2075434) LVPWD (test code = 1.34 cm 5329815887) PW (test code = 1.34 cm 0.6-1.5 1291539709) EF(Teich) (test code = 41.40 % 8114592307) LVIDS (test code = 5.00 cm 1977082277) Left Ventricular End 118.2 mL Systolic Volume by Teichholz Method (test code = 2128594) FS (test code = 21 % 6181282232) EF - 2D (test code = 41.40 % 81797991) LVOT diameter (test 2.19 cm code = 0711266005) LVOT area (test code = 3.80 cm2 2552757971) Ao root diam (test code 3.40 cm = 5674723358) Aortic root (test code 3.4 cm = 2693683113) Ao root annulus (test 3.4 cm code = 9324833284) LA size (test code = 5.6 cm 6125832291) ACS (test code = 0.78 cm 1469070063) TR Peak Cortney (test code 306.8 cm/s = 6067110602) Triscuspid Valve mmHg Regurgitation Peak Gradient (test code = 8797750716) PV REGURGITATION PEAK mmHg GRADIENT (test code = 1747673698) MV Peak E Cortney (test 135.9 cm/s code = 0616665729) MV Peak A Cortney (test 82.6 cm/s code = 2793451284) E/A ratio (test code = ratio 5371422835) E wave decelartion time 0.15 s (test code = 4528581627) MV Prop V (test code = 46.70 cm/s 8655609958) MV E/e' septal (test 4.6 cm/s code = 9046443616) LVOT stroke volume 106.70 cm3 (test code = 9278479653) LVOT peak cortney (test 140.2 cm/s code = 6761029640) LVOT mn grad (test code mmHg = 6504704462) AV LVOT peak gradient mmHg (test code = 5658165433) LVOT peak VTI (test 28.4 cm code = 4541489315) LV V1 mean (test code = 91.90 cm/s 4195036575) Left Ventricular 8.1 L/min Cardiac Output (test code = 9504367) Aortic HR (test code = BPM 4734771436) Aortic valve mean 251.6 cm/s velocity (test code = 5930691059) Ao peak cortney (test code 360.5 cm/s = 9731901066) Ao VTI (test code = 77.7 cm 2170990659) AV area by cont VTI 1.4 cm2 (test code = 0996390940) AV area peak cortney (test 1.5 cm2 code = 9951814969) Ao max PG (test code = 52.00 mm[Hg] 6795647702) AV peak gradient (test mmHg code = 8602379833) AV valve area (test 1.37 cm2 code = 7199958657) AV mean gradient (test mmHg code = 4120729273) Tapse (test code = 1.51 cm 3779521876) LV mass 2D (test code = 438.7 g 7901042724) LAV(MOD-sp4) (test code 118.70 mL = 1248720508) LA Volume Index (BP) 53.7 mL/m2 (test code = 3037454636) LA volume (BP) (test 120.4 mL code = 1777166441) LAV(MOD-sp2) (test code 120.40 mL = 8313725371) IVC Diam Exp(MM) (test 2.60 cm code = 4578016924) IVC Diam Ins(MM) (test 2.14 cm code = 9362377999) LV mass index 2D (test 195.85 g/m2 code = 1423651192) A4C EF (test code = 27.00 % 3623033365) EF(sp4-el) (test code = 26.60 % 2292399054) SV(MOD-sp4) (test code 65.90 mL = 2241012983) SV(sp4-el) (test code = 66.40 mL 8264758466) LV Diastolic Volume 265.2 mL (BP) (test code = 2063473478) A2C EF (test code = 38.30 % 8125111197) EF(MOD-bp) (test code = 33.90 % 4889741690) EF(sp2-el) (test code = 38.80 % 3174077079) LV Systolic Volume (BP) 175.3 mL (test code = 4622328298) SV(MOD-bp) (test code = 89.90 mL 4899474636) SV(MOD-sp2) (test code 102.20 mL = 2894965042) EF (test code = 0474843227) Left Ventricular Stroke 89.9 mL Volume by 2-D Biplane-MOD (test code = 4921406) Radiology Study observation (narrative) (test code = 11412-9) AJ (test code = AJ) ?Left?Ventricle: Left ventricle is severely dilated. Dilated by LV volume index calculation. ?Increased wall thickness. Severely increased ventricular mass. There is mild eccentric hypertrophy. Prominent trabeculations are seen in the LV apex and along anterolateral wall. Septal motion is normal. . Moderate global hypokinesis present. Moderately reduced systolic function with a visually estimated EF of 30 - 35%. EF by 2D Winkler biplane is 34%. There is grade 2 diastolic dysfunction. Elevated left ventricular filling pressure. ?Right?Ventricle: Right ventricle is moderately dilated. Mildly reduced systolic function. ?Aortic?Valve: Consistent with moderate aortic stenosis. AV mean gradient is 28.9 mmHg. AV peak velocity is 360.5 cm/s. LVOT diameter is 2.19 cm. AV area by continuity VTI is 1.4 cm2. ?Tricuspid?Valve: Moderate transvalvular regurgitation. There is moderate pulmonary hypertension. ?Right ventricular systolic pressure is 55-60 mmHg. ?Pericardium: Trace circumferential pericardial effusion present. Left VentricleLeft ventricle is severely dilated. Dilated by LV volume index calculation. Increased wall thickness. Severely increased ventricular mass. There is mild eccentric hypertrophy. Prominent trabeculations are seen in the LV apex and along anterolateral wall. Septal motion is normal. . Moderate global hypokinesis present. Moderately reduced systolic function with a visually estimated EF of 30 - 35%. EF by 2D Winkler biplane is 34%. There is grade 2 diastolic dysfunction. Elevated left ventricular filling pressure.Right VentricleRight ventricle is moderately dilated. Mildly reduced systolic function. Echocardiographic features suggestive of prominent trabeculation and moderator band.Left AtriumLeft atrium is severely dilated.Right AtriumRight atrium is severely dilated.IVC/SVCIVC diameter is greater than 21 mm and decreases less than 50% during inspiration; therefore the estimated right atrial pressure is elevated (~15 mmHg).Mitral ValveMildly thickened leaflets. Mildly calcified leaflets. Moderate mitral annular calcification. Mild transvalvular regurgitation. No stenosis.Tricuspid ValveTricuspid valve structure is normal. Moderate transvalvular regurgitation. There is moderate pulmonary hypertension. Right ventricular systolic pressure is 55-60 mmHg. No stenosis.Aortic ValveTricuspid. Moderately thickened cusps. Moderately calcified cusps. Moderate transvalvular regurgitation. Consistent with moderate aortic stenosis. AV mean gradient is 28.9 mmHg. AV peak velocity is 360.5 cm/s. LVOT diameter is 2.19 cm. AV area by continuity VTI is 1.4 cm2.Pulmonic ValveValve structure is normal. Mild transvalvular regurgitation. No stenosis.Ascending AortaNormal sized annulus and sinus of Valsalva.PericardiumTra ce circumferential pericardial effusion present.Study DetailsStudy quality was adequate. A complete echocardiogram was performed using 2D, color flow Doppler and spectral Doppler. 3 mL of Optison ultrasound enhancing agent used. Patient exhibited sinus rhythm. [facility] 17:22:42 Test Item Value Reference Range Interpretation Comments Height (test code = in 7352941423) Weight (test code = lbs 3017743917) Systolic BP (test code mmHg = 9441898800) Diastolic BP (test code mmHg = 8518466131) Heart Rate (test code = bpm 9039320342) BSA (test code = 2.24 m2 3398787698) AV regurgitation 292.2 ms pressure 1/2 time (test code = 7040288239) AI dec slope (test code 446.00 cm/s2 = 9802356300) AI max cortney (test code = 445.00 cm/s 0373664790) AI max PG (test code = 79.20 mm[Hg] 9397164375) LVIDD (test code = 6.30 cm 6524118800) Left Ventricular End 201.8 mL Diastolic Volume by Teichholz Method (test code = 5998109) IVS (test code = 1.30 cm 2632156876) Interventricular Septum 1.30 cm Diastolic Thickness by 2D (test code = 6667288) LVPWD (test code = 1.34 cm 6282173491) PW (test code = 1.34 cm 0.6-1.1 7899084196) EF(Teich) (test code = 41.40 % 8216815875) LVIDS (test code = 5.00 cm 1600655917) Left Ventricular End 118.2 mL Systolic Volume by Teichholz Method (test code = 6655774) FS (test code = 21 % 5967049090) EF - 2D (test code = 41.40 % 08875999) LVOT diameter (test 2.19 cm code = 9659399874) LVOT area (test code = 3.80 cm2 6918158092) Ao root diam (test code 3.40 cm = 5440663224) Aortic root (test code 3.4 cm = 2780542335) Ao root annulus (test 3.4 cm code = 7140430544) LA size (test code = 5.6 cm 4299420123) ACS (test code = 0.78 cm 6852017582) TR Peak Cortney (test code 306.8 cm/s = 3309483723) Triscuspid Valve mmHg Regurgitation Peak Gradient (test code = 4838552416) PV REGURGITATION PEAK mmHg GRADIENT (test code = 5388860822) MV Peak E Cortney (test 135.9 cm/s code = 6969445887) MV Peak A Cortney (test 82.6 cm/s code = 1914656701) E/A ratio (test code = ratio 4015062075) E wave decelartion time 0.15 s (test code = 7396532570) MV Prop V (test code = 46.70 cm/s 1299513930) MV E/e' septal (test 4.6 cm/s code = 4825444724) LVOT stroke volume 106.70 cm3 (test code = 8181611735) LVOT peak cortney (test 140.2 cm/s code = 1600787638) LVOT mn grad (test code mmHg = 5009847093) AV LVOT peak gradient mmHg (test code = 8069288291) LVOT peak VTI (test 28.4 cm code = 9072863569) LV V1 mean (test code = 91.90 cm/s 1410770387) Left Ventricular 8.1 L/min Cardiac Output (test code = 5704208) Aortic HR (test code = BPM 5688266234) Aortic valve mean 251.6 cm/s velocity (test code = 0943186614) Ao peak cortney (test code 360.5 cm/s = 2375610971) Ao VTI (test code = 77.7 cm 8017665595) AV area by cont VTI 1.4 cm2 (test code = 9597418584) AV area peak cortney (test 1.5 cm2 code = 7600911724) Ao max PG (test code = 52.00 mm[Hg] 8370917099) AV peak gradient (test mmHg code = 6628126053) AV valve area (test 1.37 cm2 code = 0141918644) AV mean gradient (test mmHg code = 0118341641) Tapse (test code = 1.51 cm 0669232075) LV mass 2D (test code = 438.7 g 9696537400) LAV(MOD-sp4) (test code 118.70 mL = 6697889350) LA Volume Index (BP) 53.7 mL/m2 (test code = 5418832411) LA volume (BP) (test 120.4 mL code = 8156307194) LAV(MOD-sp2) (test code 120.40 mL = 7104474444) IVC Diam Exp(MM) (test 2.60 cm code = 4211376888) IVC Diam Ins(MM) (test 2.14 cm code = 2816633270) LV mass index 2D (test 195.85 g/m2 code = 5533926860) A4C EF (test code = 27.00 % 4370456711) EF(sp4-el) (test code = 26.60 % 7083877121) SV(MOD-sp4) (test code 65.90 mL = 2234589055) SV(sp4-el) (test code = 66.40 mL 7898420418) LV Diastolic Volume 265.2 mL (BP) (test code = 7864489888) A2C EF (test code = 38.30 % 3218663626) EF(MOD-bp) (test code = 33.90 % 5772951019) EF(sp2-el) (test code = 38.80 % 2118666423) LV Systolic Volume (BP) 175.3 mL (test code = 2958190119) SV(MOD-bp) (test code = 89.90 mL 7949602639) SV(MOD-sp2) (test code 102.20 mL = 2174742758) EF (test code = 5067327801) Left Ventricular Stroke 89.9 mL Volume by 2-D Biplane-MOD (test code = 6936618) Radiology Study observation (narrative) (test code = 31770-0) AJ (test code = AJ) ?Left?Ventricle: Left ventricle is severely dilated. Dilated by LV volume index calculation. ?Increased wall thickness. Severely increased ventricular mass. There is mild eccentric hypertrophy. Prominent trabeculations are seen in the LV apex and along anterolateral wall. Septal motion is normal. . Moderate global hypokinesis present. Moderately reduced systolic function with a visually estimated EF of 30 - 35%. EF by 2D Winkler biplane is 34%. There is grade 2 diastolic dysfunction. Elevated left ventricular filling pressure. ?Right?Ventricle: Right ventricle is moderately dilated. Mildly reduced systolic function. ?Aortic?Valve: Consistent with moderate aortic stenosis. AV mean gradient is 28.9 mmHg. AV peak velocity is 360.5 cm/s. LVOT diameter is 2.19 cm. AV area by continuity VTI is 1.4 cm2. ?Tricuspid?Valve: Moderate transvalvular regurgitation. There is moderate pulmonary hypertension. ?Right ventricular systolic pressure is 55-60 mmHg. ?Pericardium: Trace circumferential pericardial effusion present. Left VentricleLeft ventricle is severely dilated. Dilated by LV volume index calculation. Increased wall thickness. Severely increased ventricular mass. There is mild eccentric hypertrophy. Prominent trabeculations are seen in the LV apex and along anterolateral wall. Septal motion is normal. . Moderate global hypokinesis present. Moderately reduced systolic function with a visually estimated EF of 30 - 35%. EF by 2D Winkler biplane is 34%. There is grade 2 diastolic dysfunction. Elevated left ventricular filling pressure.Right VentricleRight ventricle is moderately dilated. Mildly reduced systolic function. Echocardiographic features suggestive of prominent trabeculation and moderator band.Left AtriumLeft atrium is severely dilated.Right AtriumRight atrium is severely dilated.IVC/SVCIVC diameter is greater than 21 mm and decreases less than 50% during inspiration; therefore the estimated right atrial pressure is elevated (~15 mmHg).Mitral ValveMildly thickened leaflets. Mildly calcified leaflets. Moderate mitral annular calcification. Mild transvalvular regurgitation. No stenosis.Tricuspid ValveTricuspid valve structure is normal. Moderate transvalvular regurgitation. There is moderate pulmonary hypertension. Right ventricular systolic pressure is 55-60 mmHg. No stenosis.Aortic ValveTricuspid. Moderately thickened cusps. Moderately calcified cusps. Moderate transvalvular regurgitation. Consistent with moderate aortic stenosis. AV mean gradient is 28.9 mmHg. AV peak velocity is 360.5 cm/s. LVOT diameter is 2.19 cm. AV area by continuity VTI is 1.4 cm2.Pulmonic ValveValve structure is normal. Mild transvalvular regurgitation. No stenosis.Ascending AortaNormal sized annulus and sinus of Valsalva.PericardiumTra ce circumferential pericardial effusion present.Study DetailsStudy quality was adequate. A complete echocardiogram was performed using 2D, color flow Doppler and spectral Doppler. 3 mL of Optison ultrasound enhancing agent used. Patient exhibited sinus rhythm. [facility] 15:29:08 Test Item Value Reference Range Interpretation Comments HGB A1C (test code = 5.2 % 4.0-5.7 4548-4) AJ (test code = AJ) Reference RangesNormal: <5.7%Prediabetes: 5.7 - 6.4%Diabetes: > 6.5% Lab Interpretation (test Normal code = 77805-1) [facility]22-[facility]-28 15:29:08 Test Item Value Reference Range Interpretation Comments HGB A1C (test code = 5.2 % 4.0-5.7 4548-4) AJ (test code = AJ) Reference RangesNormal: <5.7%Prediabetes: 5.7 - 6.4%Diabetes: > 6.5% Lab Interpretation (test Normal code = 55649-8) [facility]2022-[facility]-28 15:29:08 Test Item Value Reference Range Interpretation Comments HGB A1C (test code = 5.2 % 4.0-5.7 4548-4) AJ (test code = AJ) Reference RangesNormal: <5.7%Prediabetes: 5.7 - 6.4%Diabetes: > 6.5% Lab Interpretation (test Normal code = 07679-9) [facility]22-[facility]-28 15:29:08 Test Item Value Reference Range Interpretation Comments HGB A1C (test code = 5.2 % 4.0-5.7 4548-4) AJ (test code = AJ) Reference RangesNormal: <5.7%Prediabetes: 5.7 - 6.4%Diabetes: > 6.5% Lab Interpretation (test Normal code = 53232-0) [facility]2022-[facility]-28 15:29:08 Test Item Value Reference Range Interpretation Comments HGB A1C (test code = 5.2 % 4.0-5.7 4548-4) AJ (test code = AJ) Reference RangesNormal: <5.7%Prediabetes: 5.7 - 6.4%Diabetes: > 6.5% Lab Interpretation (test Normal code = 31499-3) [facility] GLUCOSE (AUTOMATED)2022-05-28 13:19:28 Test Item Value Reference Range Interpretation Comments POCT GLU (test code = 9598565797) 101 mg/dL 70-110 Lab Interpretation (test code = Normal 59336-9) [facility] GLUCOSE (AUTOMATED)2022-05-28 13:19:28 Test Item Value Reference Range Interpretation Comments POCT GLU (test code = 9129046321) 101 mg/dL 70-110 Lab Interpretation (test code = Normal 22003-2) [facility] GLUCOSE (AUTOMATED)2022-05-28 13:19:28 Test Item Value Reference Range Interpretation Comments POCT GLU (test code = 1702912428) 101 mg/dL 70-110 Lab Interpretation (test code = Normal 13835-2) [facility] GLUCOSE (AUTOMATED)2022-05-28 13:19:28 Test Item Value Reference Range Interpretation Comments POCT GLU (test code = 4939956449) 101 mg/dL 70-110 Lab Interpretation (test code = Normal 60816-6) [facility]28 13:19:28 Test Item Value Reference Range Interpretation Comments POCT GLU (test code = 4793351096) 101 mg/dL 70-110 Lab Interpretation (test code = Normal 87692-1) [facility] [place] [place]2022-[place]-28 12:09:19 Test Item Value Reference Range Interpretation Comments TSH (test code = See_Comment [Automated message] [id number]) The system [employer] generated this result transmitted ref erence range: 0.45 - 4 .70 mIU/L. The refe rence range was not u sed to interpret this result as normal/abnor mal. Lab Interpretation (test Normal code = 45200-4) [facility]-28 12:09:19 Test Item Value Reference Range Interpretation Comments TSH (test code = See_Comment [Automated message] 6860799990) The system [employer] generated this result transmitted ref erence range: 0.45 - 4 .70 mIU/L. The refe rence range was not u sed to interpret this result as normal/abnor mal. Lab Interpretation (test Normal code = 91657-0) [facility]22-[facility]-28 12:09:19 Test Item Value Reference Range Interpretation Comments TSH (test code = See_Comment [Automated message] 4453520011) The system [employer] generated this result transmitted ref erence range: 0.45 - 4 .70 mIU/L. The refe rence range was not u sed to interpret this result as normal/abnor mal. Lab Interpretation (test Normal code = 21340-3) [facility]-28 12:09:19 Test Item Value Reference Range Interpretation Comments TSH (test code = See_Comment [Automated message] 6911827851) The system [employer] generated this result transmitted ref erence range: 0.45 - 4 .70 mIU/L. The refe rence range was not u sed to interpret this result as normal/abnor mal. Lab Interpretation (test Normal code = 59399-7) [facility] 12:09:19 Test Item Value Reference Range Interpretation Comments TSH (test code = See_Comment [Automated message] 1155152083) The system [employer] generated this result transmitted ref erence range: 0.45 - 4 .70 mIU/L. The refe rence range was not u sed to interpret this result as normal/abnor mal. Lab Interpretation (test Normal code = 44981-7) [facility] ([id number][facility] (ALB,T.PRO,BILI T,BU/BC,ALT,AST,ALK PHOS)2022-05-28 11:03:35 Test Item Value Reference Range Interpretation Comments TOTAL BILI (test code = 3613694001) 0.7 mg/dL 0.1-1.1 BILI UNCON (test code = 0340043790) 0.3 mg/dL 0.1-1.1 BILI CONJ (test code = 6299515268) 0.0 mg/dL 0.0-0.3 T PROTEIN (test code = 6887801517) 6.1 g/dL 6.3-8.2 L ALBUMIN (test code = 4216012829) 3.0 g/dL 3.5-5.0 L ALK PHOS (test code = 4061557905) 61 U/L 34-122 ALTv (test code = 1742-6) 17 U/L 5-50 AST(SGOT) (test code = 5245000001) 35 U/L 13-40 Lab Interpretation (test code = Abnormal 71825-0) [facility] [id number] 11:03:35 Test Item Value Reference Range Interpretation Comments MAGNESIUM (test code = 1059589528) 2.2 mg/dL 1.7-2.4 Lab Interpretation (test code = Normal 25357-0) [facility] [id number] 11:03:35 Test Item Value Reference Range Interpretation Comments PHOSPHORUS (test code = 1241461627) 6.2 mg/dL 2.5-5.0 H Lab Interpretation (test code = Abnormal 70313-3) [facility] (53722) (ALB,T.PRO,BILI T,BU/BC,ALT,AST,ALK PHOS)2022-05-28 11:03:35 Test Item Value Reference Range Interpretation Comments TOTAL BILI (test code = 7793390508) 0.7 mg/dL 0.1-1.1 BILI UNCON (test code = 0746312846) 0.3 mg/dL 0.1-1.1 BILI CONJ (test code = 6865828945) 0.0 mg/dL 0.0-0.3 T PROTEIN (test code = 1136309264) 6.1 g/dL 6.3-8.2 L ALBUMIN (test code = 2856564147) 3.0 g/dL 3.5-5.0 L ALK PHOS (test code = 0905988530) 61 U/L 34-122 ALTv (test code = 1742-6) 17 U/L 5-50 AST(SGOT) (test code = 2921858041) 35 U/L 13-40 Lab Interpretation (test code = Abnormal 82912-5) [facility] [id number] 11:03:35 Test Item Value Reference Range Interpretation Comments MAGNESIUM (test code = 6960975137) 2.2 mg/dL 1.7-2.4 Lab Interpretation (test code = Normal 26344-7) [facility] [id number] 11:03:35 Test Item Value Reference Range Interpretation Comments PHOSPHORUS (test code = 6513233023) 6.2 mg/dL 2.5-5.0 H Lab Interpretation (test code = Abnormal 70827-1) [facility] (29089) (ALB,T.PRO,BILI T,BU/BC,ALT,AST,ALK PHOS)2022-05-28 11:03:35 Test Item Value Reference Range Interpretation Comments TOTAL BILI (test code = 8636740368) 0.7 mg/dL 0.1-1.1 BILI UNCON (test code = 4926372399) 0.3 mg/dL 0.1-1.1 BILI CONJ (test code = 5769534027) 0.0 mg/dL 0.0-0.3 T PROTEIN (test code = 0991814059) 6.1 g/dL 6.3-8.2 L ALBUMIN (test code = 0249073769) 3.0 g/dL 3.5-5.0 L ALK PHOS (test code = 1520081467) 61 U/L 34-122 ALTv (test code = 1742-6) 17 U/L 5-50 AST(SGOT) (test code = 5397104186) 35 U/L 13-40 Lab Interpretation (test code = Abnormal 79975-1) [facility] [id number] 11:03:35 Test Item Value Reference Range Interpretation Comments MAGNESIUM (test code = 3535720489) 2.2 mg/dL 1.7-2.4 Lab Interpretation (test code = Normal 56347-5) [facility] [id number] 11:03:35 Test Item Value Reference Range Interpretation Comments PHOSPHORUS (test code = 6572994577) 6.2 mg/dL 2.5-5.0 H Lab Interpretation (test code = Abnormal 20856-9) [facility] (21966) (ALB,T.PRO,BILI T,BU/BC,ALT,AST,ALK PHOS)2022-05-28 11:03:35 Test Item Value Reference Range Interpretation Comments TOTAL BILI (test code = 6317820504) 0.7 mg/dL 0.1-1.1 BILI UNCON (test code = 1964237723) 0.3 mg/dL 0.1-1.1 BILI CONJ (test code = 4385749469) 0.0 mg/dL 0.0-0.3 T PROTEIN (test code = 6312791701) 6.1 g/dL 6.3-8.2 L ALBUMIN (test code = 9132799989) 3.0 g/dL 3.5-5.0 L ALK PHOS (test code = 1506842878) 61 U/L 34-122 ALTv (test code = 1742-6) 17 U/L 5-50 AST(SGOT) (test code = 8374670076) 35 U/L 13-40 Lab Interpretation (test code = Abnormal 10176-0) [facility] [id number] 11:03:35 Test Item Value Reference Range Interpretation Comments MAGNESIUM (test code = 7370090040) 2.2 mg/dL 1.7-2.4 Lab Interpretation (test code = Normal 54699-1) [facility] [id number] 11:03:35 Test Item Value Reference Range Interpretation Comments PHOSPHORUS (test code = 4229234150) 6.2 mg/dL 2.5-5.0 H Lab Interpretation (test code = Abnormal 09426-4) [facility] (35516) (ALB,T.PRO,BILI T,BU/BC,ALT,AST,ALK PHOS)2022-05-28 11:03:35 Test Item Value Reference Range Interpretation Comments TOTAL BILI (test code = 2408739816) 0.7 mg/dL 0.1-1.1 BILI UNCON (test code = 0610519061) 0.3 mg/dL 0.1-1.1 BILI CONJ (test code = 3196823453) 0.0 mg/dL 0.0-0.3 T PROTEIN (test code = 1964722777) 6.1 g/dL 6.3-8.2 L ALBUMIN (test code = 9471544552) 3.0 g/dL 3.5-5.0 L ALK PHOS (test code = 6938269908) 61 U/L 34-122 ALTv (test code = 1742-6) 17 U/L 5-50 AST(SGOT) (test code = 7321088316) 35 U/L 13-40 Lab Interpretation (test code = Abnormal 05358-0) [facility] [id number] 11:03:35 Test Item Value Reference Range Interpretation Comments MAGNESIUM (test code = 1250539292) 2.2 mg/dL 1.7-2.4 Lab Interpretation (test code = Normal 96881-1) [facility] [id number] 11:03:35 Test Item Value Reference Range Interpretation Comments PHOSPHORUS (test code = 1042759899) 6.2 mg/dL 2.5-5.0 H Lab Interpretation (test code = Abnormal 22251-9) [facility] (NA, K, CL, CO2, GLUCOSE, BUN, CREATININE, CA)2022-05-28 11:03:34 Test Item Value Reference Range Interpretation Comments NA (test code = 134 mmol/L 135-145 L 0856568168) K (test code = 4.6 mmol/L 3.5-5.0 5131582210) CL (test code = 103 mmol/L 98-108 1536386628) CO2 TOTAL (test code = 21 mmol/L 23-31 L 1618387126) AGAP (test code = 2-16 5307835475) BUN (test code = 65 mg/dL 7-23 H 4112192182) GLUCOSE (test code = 80 mg/dL 70-110 6292584283) CREATININE (test code = 9.46 mg/dL 0.60-1.25 H 3891637194) CALCIUM (test code = 8.7 mg/dL 8.6-10.6 8219127277) eGFR (test code = mL/min/1.73m2 2558995409) AJ (test code = AJ) Association of [...] tests). Lab Interpretation Abnormal (test code = 07293-3) [facility] (Total Cholesterol, Triglycerides, HDL) - [id number] 11:03:34 Test Item Value Reference Range Interpretation Comments CHOL (test code = 103 mg/dL 120-200 L 7754288290) HDL (test code = 22 mg/dL See_Comment L [Automated message] 1865423156) The system [employer] generated this result transmit alexandra reference range : >=40. The refer ence range was not u sed to interpret th is result as normal/abnormal . HDLC RATIO (test code = See_Comment [Au tomated message] 2765857804) The system [employer] generated this result transmit alexandra reference range : <=5.0. The refe rence range was not u sed to interpret th is result as normal/abnormal . TRIG (test code = 75 mg/dL 30-170 4388597520) LDL CHOL (test code = 66 mg/dL See_Comment [Auto mated message] 78107-6) The system [employer] generated this result transmit alexandra reference range : <=160. The refe rence range was not u sed to interpret th is result as normal/abnormal . VLDL (test code = 15 mg/dL 5-60 7174381652) Lab Interpretation (test Abnormal code = 79115-7) [facility] (NA, K, CL, CO2, GLUCOSE, BUN, CREATININE, CA)2022-05-28 11:03:34 Test Item Value Reference Range Interpretation Comments NA (test code = 134 mmol/L 135-145 L 8501309388) K (test code = 4.6 mmol/L 3.5-5.0 9506060846) CL (test code = 103 mmol/L 98-108 6812934984) CO2 TOTAL (test code = 21 mmol/L 23-31 L 7099256736) AGAP (test code = 2-16 4892671092) BUN (test code = 65 mg/dL 7-23 H 9476742284) GLUCOSE (test code = 80 mg/dL 70-110 9874698863) CREATININE (test code = 9.46 mg/dL 0.60-1.25 H 6524257595) CALCIUM (test code = 8.7 mg/dL 8.6-10.6 3024504091) eGFR (test code = mL/min/1.73m2 2962304053) AJ (test code = AJ) Association of [...] tests). Lab Interpretation Abnormal (test code = 59471-0) [facility] (Total Cholesterol, Triglycerides, HDL) - [id number] 11:03:34 Test Item Value Reference Range Interpretation Comments CHOL (test code = 103 mg/dL 120-200 L 3349816817) HDL (test code = 22 mg/dL See_Comment L [Automated message] 3436189940) The system [employer] generated this result transmit alexandra reference range : >=40. The refer ence range was not u sed to interpret th is result as normal/abnormal . HDLC RATIO (test code = See_Comment [Au tomated message] 7811317388) The system [employer] generated this result transmit alexandra reference range : <=5.0. The refe rence range was not u sed to interpret th is result as normal/abnormal . TRIG (test code = 75 mg/dL 30-170 0220131696) LDL CHOL (test code = 66 mg/dL See_Comment [Auto mated message] 20639-7) The system [employer] generated this result transmit alexandra reference range : <=160. The refe rence range was not u sed to interpret th is result as normal/abnormal . VLDL (test code = 15 mg/dL 5-60 4566619466) Lab Interpretation (test Abnormal code = 36982-7) [facility] Metabolic Panel (NA, K, CL, CO2, GLUCOSE, BUN, CREATININE, CA)2022-05-28 11:03:34 Test Item Value Reference Range Interpretation Comments NA (test code = 134 mmol/L 135-145 L 2496254471) K (test code = 4.6 mmol/L 3.5-5.0 5561235190) CL (test code = 103 mmol/L 98-108 8016521630) CO2 TOTAL (test code = 21 mmol/L 23-31 L 7880388995) AGAP (test code = 2-16 6022406259) BUN (test code = 65 mg/dL 7-23 H 4833589763) GLUCOSE (test code = 80 mg/dL 70-110 9434303751) CREATININE (test code = 9.46 mg/dL 0.60-1.25 H 4296830808) CALCIUM (test code = 8.7 mg/dL 8.6-10.6 9937464972) eGFR (test code = mL/min/1.73m2 4861671973) AJ (test code = AJ) Association of [...] tests). Lab Interpretation Abnormal (test code = 00847-8) [facility] (Total Cholesterol, Triglycerides, HDL) - [id number] 11:03:34 Test Item Value Reference Range Interpretation Comments CHOL (test code = 103 mg/dL 120-200 L 0726782565) HDL (test code = 22 mg/dL See_Comment L [Automated message] 9637421624) The system [employer] generated this result transmit alexandra reference range : >=40. The refer ence range was not u sed to interpret th is result as normal/abnormal . HDLC RATIO (test code = See_Comment [Au tomated message] 7573315489) The system [employer] generated this result transmit alexandra reference range : <=5.0. The refe rence range was not u sed to interpret th is result as normal/abnormal . TRIG (test code = 75 mg/dL 30-170 1102447205) LDL CHOL (test code = 66 mg/dL See_Comment [Auto mated message] 14958-1) The system [employer] generated this result transmit alexandra reference range : <=160. The refe rence range was not u sed to interpret th is result as normal/abnormal . VLDL (test code = 15 mg/dL 5-60 1631898787) Lab Interpretation (test Abnormal code = 23284-2) [facility] (NA, K, CL, CO2, GLUCOSE, BUN, CREATININE, CA)2022-05-28 11:03:34 Test Item Value Reference Range Interpretation Comments NA (test code = 134 mmol/L 135-145 L 7672187348) K (test code = 4.6 mmol/L 3.5-5.0 8826526061) CL (test code = 103 mmol/L 98-108 3058189154) CO2 TOTAL (test code = 21 mmol/L 23-31 L 6655942565) AGAP (test code = 2-16 4959215013) BUN (test code = 65 mg/dL 7-23 H 2512680304) GLUCOSE (test code = 80 mg/dL 70-110 2804283009) CREATININE (test code = 9.46 mg/dL 0.60-1.25 H 3209015223) CALCIUM (test code = 8.7 mg/dL 8.6-10.6 1045095453) eGFR (test code = mL/min/1.73m2 3063501654) AJ (test code = AJ) Association of [...] tests). Lab Interpretation Abnormal (test code = 32122-8) [facility] (Total Cholesterol, Triglycerides, HDL) - [id number] 11:03:34 Test Item Value Reference Range Interpretation Comments CHOL (test code = 103 mg/dL 120-200 L 1689534291) HDL (test code = 22 mg/dL See_Comment L [Automated message] 7198715399) The system [employer] generated this result transmit alexandra reference range : >=40. The refer ence range was not u sed to interpret th is result as normal/abnormal . HDLC RATIO (test code = See_Comment [Au tomated message] 5227137098) The system [employer] generated this result transmit alexandra reference range : <=5.0. The refe rence range was not u sed to interpret th is result as normal/abnormal . TRIG (test code = 75 mg/dL 30-170 8311620093) LDL CHOL (test code = 66 mg/dL See_Comment [Auto mated message] 73958-7) The system [employer] generated this result transmit alexandra reference range : <=160. The refe rence range was not u sed to interpret th is result as normal/abnormal . VLDL (test code = 15 mg/dL 5-60 2508772663) Lab Interpretation (test Abnormal code = 96894-5) [facility] (NA, K, CL, CO2, GLUCOSE, BUN, CREATININE, CA)2022-05-28 11:03:34 Test Item Value Reference Range Interpretation Comments NA (test code = 134 mmol/L 135-145 L 9086237119) K (test code = 4.6 mmol/L 3.5-5.0 7270684098) CL (test code = 103 mmol/L 98-108 2161567399) CO2 TOTAL (test code = 21 mmol/L 23-31 L 5474149177) AGAP (test code = 2-16 0594931082) BUN (test code = 65 mg/dL 7-23 H 6660041670) GLUCOSE (test code = 80 mg/dL 70-110 7093645835) CREATININE (test code = 9.46 mg/dL 0.60-1.25 H 5772575854) CALCIUM (test code = 8.7 mg/dL 8.6-10.6 1456591141) eGFR (test code = mL/min/1.73m2 0420027471) AJ (test code = AJ) Association of [...] tests). Lab Interpretation Abnormal (test code = 28004-8) [facility] (Total Cholesterol, Triglycerides, HDL) - [id number] 11:03:34 Test Item Value Reference Range Interpretation Comments CHOL (test code = 103 mg/dL 120-200 L 1860964373) HDL (test code = 22 mg/dL See_Comment L [Automated message] 0799050205) The system [employer] generated this result transmit alexandra reference range : >=40. The refer ence range was not u sed to interpret th is result as normal/abnormal . HDLC RATIO (test code = See_Comment [Au tomated message] 7261010463) The system [employer] generated this result transmit alexandra reference range : <=5.0. The refe rence range was not u sed to interpret th is result as normal/abnormal . TRIG (test code = 75 mg/dL 30-170 8618050843) LDL CHOL (test code = 66 mg/dL See_Comment [Auto mated message] 53468-8) The system [employer] generated this result transmit alexandra reference range : <=160. The refe rence range was not u sed to interpret th is result as normal/abnormal . VLDL (test code = 15 mg/dL 5-60 1453552757) Lab Interpretation (test Abnormal code = 89157-3) [facility] 10:48:57 Test Item Value Reference Range Interpretation Comments Fibrinogen (test code = 9608839980) 276 mg/dL 167-453 Lab Interpretation (test code = Normal 84038-6) [facility]20[facility]-20 10:48:57 Test Item Value Reference Range Interpretation Comments Fibrinogen (test code = 9637432403) 276 mg/dL 167-453 Lab Interpretation (test code = Normal 35287-1) [facility]-20 10:48:57 Test Item Value Reference Range Interpretation Comments Fibrinogen (test code = 2203607854) 276 mg/dL 167-453 Lab Interpretation (test code = Normal 61510-6) [facility]-20 10:48:57 Test Item Value Reference Range Interpretation Comments Fibrinogen (test code = 6185815270) 276 mg/dL 167-453 Lab Interpretation (test code = Normal 73974-9) [facility]20[facility]-20 10:48:57 Test Item Value Reference Range Interpretation Comments Fibrinogen (test code = 9135898671) 276 mg/dL 167-453 Lab Interpretation (test code = Normal 46248-2) [facility] [id number] 10:48:51 Test Item Value Reference Range Interpretation Comments APTT Patient (test code = See_Comment [ Automated message] 0703-2) The system [employer] generated this result transmitted ref erence range: 26 - 36 Seconds. The re ference range was not u sed to interpret this result as normal/abnor mal. Lab Interpretation (test Normal code = 21354-6) [facility] ArlingtonProthrom[facility] / [id number] 10:48:51 Test Item Value Reference Range Interpretation Comments PROTIME PATIENT (test See_Comment H [Auto mated message] code = 5964-2) The system [employer] generated this result transmitted ref erence range: 10.1 - 1 2.6 Seconds. The reference range was not used to int erpret this result as normal/abnormal . INR (test code = 6301-6) Nor mal INR <1.1; Warfarin Therap eutic range 2.0 to 3. 0 or 2.5 to 3.5, dep ending upon the indica tions. Lab Interpretation (test Abnormal code = 10832-5) [facility] [id number] 10:48:51 Test Item Value Reference Range Interpretation Comments APTT Patient (test code = See_Comment [ Automated message] 3173-2) The system [employer] generated this result transmitted ref erence range: 26 - 36 Seconds. The re ference range was not u sed to interpret this result as normal/abnor mal. Lab Interpretation (test Normal code = 48025-9) [facility] / [id number] 10:48:51 Test Item Value Reference Range Interpretation Comments PROTIME PATIENT (test See_Comment H [Auto mated message] code = 5964-2) The system [employer] generated this result transmitted ref erence range: 10.1 - 1 2.6 Seconds. The reference range was not used to int erpret this result as normal/abnormal . INR (test code = 6301-6) Nor mal INR <1.1; Warfarin Therap eutic range 2.0 to 3. 0 or 2.5 to 3.5, dep ending upon the indica tions. Lab Interpretation (test Abnormal code = 77227-2) [facility] [id number] 10:48:51 Test Item Value Reference Range Interpretation Comments APTT Patient (test code = See_Comment [ Automated message] 3173-2) The system [employer] generated this result transmitted ref erence range: 26 - 36 Seconds. The re ference range was not u sed to interpret this result as normal/abnor mal. Lab Interpretation (test Normal code = 66805-6) [facility] / [id number] 10:48:51 Test Item Value Reference Range Interpretation Comments PROTIME PATIENT (test See_Comment H [Auto mated message] code = 5964-2) The system [employer] generated this result transmitted ref erence range: 10.1 - 1 2.6 Seconds. The reference range was not used to int erpret this result as normal/abnormal . INR (test code = 6301-6) Nor mal INR <1.1; Warfarin Therap eutic range 2.0 to 3. 0 or 2.5 to 3.5, dep ending upon the indica tions. Lab Interpretation (test Abnormal code = 23309-2) [facility] [id number] 10:48:51 Test Item Value Reference Range Interpretation Comments APTT Patient (test code = See_Comment [ Automated message] 3173-2) The system [employer] generated this result transmitted ref erence range: 26 - 36 Seconds. The re ference range was not u sed to interpret this result as normal/abnor mal. Lab Interpretation (test Normal code = 62857-3) [facility]Pro[facility] / [id number] 10:48:51 Test Item Value Reference Range Interpretation Comments PROTIME PATIENT (test See_Comment H [Auto mated message] code = 5964-2) The system [employer] generated this result transmitted ref erence range: 10.1 - 1 2.6 Seconds. The reference range was not used to int erpret this result as normal/abnormal . INR (test code = 6301-6) Nor mal INR <1.1; Warfarin Therap eutic range 2.0 to 3. 0 or 2.5 to 3.5, dep ending upon the indica tions. Lab Interpretation (test Abnormal code = 33753-0) [facility] [id number] 10:48:51 Test Item Value Reference Range Interpretation Comments APTT Patient (test code = See_Comment [ Automated message] 3173-2) The system [employer] generated this result transmitted ref erence range: 26 - 36 Seconds. The re ference range was not u sed to interpret this result as normal/abnor mal. Lab Interpretation (test Normal code = 48833-1) [facility] / [id number] 10:48:51 Test Item Value Reference Range Interpretation Comments PROTIME PATIENT (test See_Comment H [Auto mated message] code = 5964-2) The system wh ich generated this result transmitted ref erence range: 10.1 - 1 2.6 Seconds. The reference range was not used to int erpret this result as normal/abnormal . INR (test code = 6301-6) Nor mal INR <1.1; Warfarin Therap eutic range 2.0 to 3. 0 or 2.5 to 3.5, dep ending upon the indica tions. Lab Interpretation (test Abnormal code = 66176-9) [facility] ArlingtonCBC with [id number] 10:37:50 Test Item Value Reference Range Interpretation Comments [...] as normal/abnormal . HGB (test code = 7.5 g/dL 12.2-16.4 L 718-7) HCT (test code = 24.4 % 38.4-49.3 L 4544-3) MCV (test code = 87.5 fL 81.7-95.6 787-2) MCH (test code = 26.9 pg 26.1-32.7 785-6) MCHC (test code = 30.7 g/dL 31.2-35.0 L 786-4) RDW-SD (test code = 54.1 fL 38.5-51.6 H 76311-0) RDW-CV (test code = 17.0 % 12.1-15.4 H 788-0) PLT (test code = See_Comment [Automated 777-3) message] The sy stem which generated this result transmitted reference range : 150 - 328 10*3/ ?L. The reference r yazan was not used to interpret this result as normal/abnormal . MPV (test code = 11.4 fL 9.8-13.0 80016-7) NRBC/100 WBC (test See_Comment [Automat ed code = 3924295206) message] The system which generated this result transmitted reference range : 0.0 - 10.0 /100 WBCs. The refer ence range was not u sed to interpret th is result as normal/abnormal . NRBC x10^3 (test code See_Comment [Auto mated = 5630146711) message] The s ystem which generated this result transmitted reference range : 10*3/?L. The reference range was not used to interpret this result as normal/abnormal . GRAN MAT (NEUT) % 63.3 % (test code = 770-8) IMM GRAN % (test code 0.50 % = 0807071212) LYMPH % (test code = 16.2 % 736-9) MONO % (test code = 17.9 % 5905-5) EOS % (test code = 1.4 % 713-8) BASO % (test code = 0.7 % 706-2) GRAN MAT x10^3(ANC) 2.69 10*3/uL 1.99-6.95 (test code = 5326205473) IMM GRAN x10^3 (test 0.00-0.06 code = 1248286951) LYMPH x10^3 (test code 0.69 10*3/uL 1.09-3.23 L = 731-0) MONO x10^3 (test code 0.76 10*3/uL 0.36-1.02 = 742-7) EOS x10^3 (test code = 0.06 10*3/uL 0.06-0.53 711-2) BASO x10^3 (test code 0.03 10*3/uL 0.01-0.09 = 704-7) Lab Interpretation Abnormal (test code = 29271-5) [facility] with Vhevuqhcsuwl4361-70-47 10:37:50 Test Item Value Reference Range Interpretation Comments [...] as normal/abnormal . HGB (test code = 7.5 g/dL 12.2-16.4 L 718-7) HCT (test code = 24.4 % 38.4-49.3 L 4544-3) MCV (test code = 87.5 fL 81.7-95.6 787-2) MCH (test code = 26.9 pg 26.1-32.7 785-6) MCHC (test code = 30.7 g/dL 31.2-35.0 L 786-4) RDW-SD (test code = 54.1 fL 38.5-51.6 H 43258-5) RDW-CV (test code = 17.0 % 12.1-15.4 H 788-0) PLT (test code = See_Comment [Automated 777-3) message] The sy stem which generated this result transmitted reference range : 150 - 328 10*3/ ?L. The reference r yazan was not used to interpret this result as normal/abnormal . MPV (test code = 11.4 fL 9.8-13.0 78506-4) NRBC/100 WBC (test See_Comment [Automat ed code = 2002503521) message] The system which generated this result transmitted reference range : 0.0 - 10.0 /100 WBCs. The refer ence range was not u sed to interpret th is result as normal/abnormal . NRBC x10^3 (test code See_Comment [Auto mated = 4905667386) message] The s ystem which generated this result transmitted reference range : 10*3/?L. The reference range was not used to interpret this result as normal/abnormal . GRAN MAT (NEUT) % 63.3 % (test code = 770-8) IMM GRAN % (test code 0.50 % = 2890251959) LYMPH % (test code = 16.2 % 736-9) MONO % (test code = 17.9 % 5905-5) EOS % (test code = 1.4 % 713-8) BASO % (test code = 0.7 % 706-2) GRAN MAT x10^3(ANC) 2.69 10*3/uL 1.99-6.95 (test code = 2629568622) IMM GRAN x10^3 (test 0.00-0.06 code = 9537132865) LYMPH x10^3 (test code 0.69 10*3/uL 1.09-3.23 L = 731-0) MONO x10^3 (test code 0.76 10*3/uL 0.36-1.02 = 742-7) EOS x10^3 (test code = 0.06 10*3/uL 0.06-0.53 711-2) BASO x10^3 (test code 0.03 10*3/uL 0.01-0.09 = 704-7) Lab Interpretation Abnormal (test code = 64637-1) [facility] with Lolyxymzfjes9778-45-81 10:37:50 Test Item Value Reference Range Interpretation Comments [...] as normal/abnormal . HGB (test code = 7.5 g/dL 12.2-16.4 L 718-7) HCT (test code = 24.4 % 38.4-49.3 L 4544-3) MCV (test code = 87.5 fL 81.7-95.6 787-2) MCH (test code = 26.9 pg 26.1-32.7 785-6) MCHC (test code = 30.7 g/dL 31.2-35.0 L 786-4) RDW-SD (test code = 54.1 fL 38.5-51.6 H 50205-3) RDW-CV (test code = 17.0 % 12.1-15.4 H 788-0) PLT (test code = See_Comment [Automated 777-3) message] The sy stem which generated this result transmitted reference range : 150 - 328 10*3/ ?L. The reference r yazan was not used to interpret this result as normal/abnormal . MPV (test code = 11.4 fL 9.8-13.0 46463-4) NRBC/100 WBC (test See_Comment [Automat ed code = 8475139890) message] The system which generated this result transmitted reference range : 0.0 - 10.0 /100 WBCs. The refer ence range was not u sed to interpret th is result as normal/abnormal . NRBC x10^3 (test code See_Comment [Auto mated = 9756279198) message] The s ystem which generated this result transmitted reference range : 10*3/?L. The reference range was not used to interpret this result as normal/abnormal . GRAN MAT (NEUT) % 63.3 % (test code = 770-8) IMM GRAN % (test code 0.50 % = 8297157034) LYMPH % (test code = 16.2 % 736-9) MONO % (test code = 17.9 % 5905-5) EOS % (test code = 1.4 % 713-8) BASO % (test code = 0.7 % 706-2) GRAN MAT x10^3(ANC) 2.69 10*3/uL 1.99-6.95 (test code = 9264473168) IMM GRAN x10^3 (test 0.00-0.06 code = 1892279994) LYMPH x10^3 (test code 0.69 10*3/uL 1.09-3.23 L = 731-0) MONO x10^3 (test code 0.76 10*3/uL 0.36-1.02 = 742-7) EOS x10^3 (test code = 0.06 10*3/uL 0.06-0.53 711-2) BASO x10^3 (test code 0.03 10*3/uL 0.01-0.09 = 704-7) Lab Interpretation Abnormal (test code = 21258-6) [facility] with Ozktvvwwluez5701-44-86 10:37:50 Test Item Value Reference Range Interpretation Comments [...] as normal/abnormal . HGB (test code = 7.5 g/dL 12.2-16.4 L 718-7) HCT (test code = 24.4 % 38.4-49.3 L 4544-3) MCV (test code = 87.5 fL 81.7-95.6 787-2) MCH (test code = 26.9 pg 26.1-32.7 785-6) MCHC (test code = 30.7 g/dL 31.2-35.0 L 786-4) RDW-SD (test code = 54.1 fL 38.5-51.6 H 67003-1) RDW-CV (test code = 17.0 % 12.1-15.4 H 788-0) PLT (test code = See_Comment [Automated 777-3) message] The sy stem which generated this result transmitted reference range : 150 - 328 10*3/ ?L. The reference r yazan was not used to interpret this result as normal/abnormal . MPV (test code = 11.4 fL 9.8-13.0 79927-1) NRBC/100 WBC (test See_Comment [Automat ed code = 7016400223) message] The system which generated this result transmitted reference range : 0.0 - 10.0 /100 WBCs. The refer ence range was not u sed to interpret th is result as normal/abnormal . NRBC x10^3 (test code See_Comment [Auto mated = 3592135216) message] The s ystem which generated this result transmitted reference range : 10*3/?L. The reference range was not used to interpret this result as normal/abnormal . GRAN MAT (NEUT) % 63.3 % (test code = 770-8) IMM GRAN % (test code 0.50 % = 0022035326) LYMPH % (test code = 16.2 % 736-9) MONO % (test code = 17.9 % 5905-5) EOS % (test code = 1.4 % 713-8) BASO % (test code = 0.7 % 706-2) GRAN MAT x10^3(ANC) 2.69 10*3/uL 1.99-6.95 (test code = 5879268879) IMM GRAN x10^3 (test 0.00-0.06 code = 3739738857) LYMPH x10^3 (test code 0.69 10*3/uL 1.09-3.23 L = 731-0) MONO x10^3 (test code 0.76 10*3/uL 0.36-1.02 = 742-7) EOS x10^3 (test code = 0.06 10*3/uL 0.06-0.53 711-2) BASO x10^3 (test code 0.03 10*3/uL 0.01-0.09 = 704-7) Lab Interpretation Abnormal (test code = 29878-2) [facility] with Gmgtbjbztwbe0229-61-39 10:37:50 Test Item Value Reference Range Interpretation Comments WBC (test code = See_Comment [Automated 7590-2) message] The sy stem which generated this result transmitted reference range : 4.20 - 10.70 10*3/?L. The reference range was not used to interpret this result as normal/abnormal . RBC (test code = See_Comment L [Automated 819-8) message] The sy stem which generated this result transmitted reference range : 4.26 - 5.52 10*6/?L. The reference range was not used to interpret this result as normal/abnormal . HGB (test code = 7.5 g/dL 12.2-16.4 L 718-7) HCT (test code = 24.4 % 38.4-49.3 L 4544-3) MCV (test code = 87.5 fL 81.7-95.6 787-2) MCH (test code = 26.9 pg 26.1-32.7 785-6) MCHC (test code = 30.7 g/dL 31.2-35.0 L 786-4) RDW-SD (test code = 54.1 fL 38.5-51.6 H 70002-5) RDW-CV (test code = 17.0 % 12.1-15.4 H 788-0) PLT (test code = See_Comment [Automated 777-3) message] The sy stem which generated this result transmitted reference range : 150 - 328 10*3/ ?L. The reference r yazan was not used to interpret this result as normal/abnormal . MPV (test code = 11.4 fL 9.8-13.0 56837-6) NRBC/100 WBC (test See_Comment [Automat ed code = 9340302087) message] The system which generated this result transmitted reference range : 0.0 - 10.0 /100 WBCs. The refer ence range was not u sed to interpret th is result as normal/abnormal . NRBC x10^3 (test code See_Comment [Auto mated = 6309882653) message] The s ystem which generated this result transmitted reference range : 10*3/?L. The reference range was not used to interpret this result as normal/abnormal . GRAN MAT (NEUT) % 63.3 % (test code = 770-8) IMM GRAN % (test code 0.50 % = 5529699938) LYMPH % (test code = 16.2 % 736-9) MONO % (test code = 17.9 % 5905-5) EOS % (test code = 1.4 % 713-8) BASO % (test code = 0.7 % 706-2) GRAN MAT x10^3(ANC) 2.69 10*3/uL 1.99-6.95 (test code = 1182801380) IMM GRAN x10^3 (test 0.00-0.06 code = 6193740627) LYMPH x10^3 (test code 0.69 10*3/uL 1.09-3.23 L = 731-0) MONO x10^3 (test code 0.76 10*3/uL 0.36-1.02 = 742-7) EOS x10^3 (test code = 0.06 10*3/uL 0.06-0.53 711-2) BASO x10^3 (test code 0.03 10*3/uL 0.01-0.09 = 704-7) Lab Interpretation Abnormal (test code = 93871-9) [facility] Hhyvkdn2065-88-46 23:46:48 Test Item Value Reference Range Interpretation Comments HBsAg Semi-Quantitative (test code = Negative Negative 5195-3) [facility] Jqgjujk0711-14-80 23:46:48 Test Item Value Reference Range Interpretation Comments HBsAg Semi-Quantitative (test code = Negative Negative 5195-3) [facility] Sszlehk7264-94-77 23:46:48 Test Item Value Reference Range Interpretation Comments HBsAg Semi-Quantitative (test code = Negative Negative 5195-3) [facility] Eaidxgg6306-57-27 23:46:48 Test Item Value Reference Range Interpretation Comments HBsAg Semi-Quantitative (test code = Negative Negative 5195-3) [facility] Vdxylvk2301-85-70 23:46:48 Test Item Value Reference Range Interpretation Comments HBsAg Semi-Quantitative (test code = Negative Negative 5195-3) [facility] GLUCOSE (AUTOMATED)2022-05-27 22:52:32 Test Item Value Reference Range Interpretation Comments POCT GLU (test code = 95 mg/dL 70-110 Notifi ed Provider [id number]) Lab Interpretation (test Normal code = 15260-2) [facility] GLUCOSE (AUTOMATED)2022-05-27 22:52:32 Test Item Value Reference Range Interpretation Comments POCT GLU (test code = 95 mg/dL 70-110 Notifi ed Provider [id number]) Lab Interpretation (test Normal code = 59439-3) [facility] GLUCOSE (AUTOMATED)2022-05-27 22:52:32 Test Item Value Reference Range Interpretation Comments POCT GLU (test code = 95 mg/dL 70-110 Notifi ed Provider [id number]) Lab Interpretation (test Normal code = 93854-2) [facility] GLUCOSE (AUTOMATED)2022-05-27 22:52:32 Test Item Value Reference Range Interpretation Comments POCT GLU (test code = 95 mg/dL 70-110 Notifi ed Provider [id number]) Lab Interpretation (test Normal code = 31740-1) [facility] 22:52:32 Test Item Value Reference Range Interpretation Comments POCT GLU (test code = 95 mg/dL 70-110 Notifi ed Provider [id number]) Lab Interpretation (test Normal code = 52408-3) [facility] 1 Units 2022-05-27 18:56:58 Test Item Value Reference Range Interpretation Comments Cross Match Result Compatible (test code = 4409) ISBT Blood Type Code (test code = 786098) Unit Blood Type (test B Pos code = 4410) Unit Number (test [id number] code = 4411) Blood Expiration Date & Time (test code = 910802) Status Information Issued (test code = 4412) Product Red Blood Cells Identification (test code = 4413) Product Code (test [id number] Performed at [facility] code = 4414) Laboratory Services - [facility] Blood [address] [address]B[place] Free: [phone] A No. [id number] [facility] Packed RBC (in units), 1 Units 2022-05-27 18:56:58 Test Item Value Reference Range Interpretation Comments Cross Match Result Compatible (test code = 4409) ISBT Blood Type Code (test code = 196316) Unit Blood Type (test B Pos code = 4410) Unit Number (test [id number] code = 4411) Blood Expiration Date & Time (test code = 593639) Status Information Issued (test code = 4412) Product Red Blood Cells Identification (test code = 4413) Product Code (test I4564D55 Performed at [facility] code = 4414) Laboratory Services - [facility] Blood [address] [place] [address]Cqpg Free: [phone] A No. [id number] [facility] RBC (in units), 1 Units 2022-05-27 18:56:58 Test Item Value Reference Range Interpretation Comments Cross Match Result Compatible (test code = 4409) ISBT Blood Type Code (test code = 548359) Unit Blood Type (test B Pos code = 4410) Unit Number (test [id number] code = 4411) Blood Expiration Date & Time (test code = 561880) Status Information Issued (test code = 4412) Product Red Blood Cells Identification (test code = 4413) Product Code (test [id number] Performed at [facility] code = 4414) Laboratory Services [facility] Blood [address] Free: [phone] A No. [id number] [facility] Packed RBC (in units), 1 Units 2022-05-27 18:56:58 Test Item Value Reference Range Interpretation Comments Cross Match Result Compatible (test code = 4409) ISBT Blood Type Code (test code = 257768) Unit Blood Type (test B Pos code = 4410) Unit Number (test [id number] code = 4411) Blood Expiration Date & Time (test code = 565809) Status Information Issued (test code = 4412) Product Red Blood Cells Identification (test code = 4413) Product Code (test [id number] Performed at [facility] code = 4414) Laboratory Services [facility] Blood [address] Free: [phone] A No. [id number] [facility] Packed RBC (in units), 1 Units 2022-05-27 18:56:58 Test Item Value Reference Range Interpretation Comments Cross Match Result Compatible (test code = 4409) ISBT Blood Type Code (test code = 551001) Unit Blood Type (test B Pos code = 4410) Unit Number (test [id number] code = 4411) Blood Expiration Date & Time (test code = 423060) Status Information Issued (test code = 4412) Product Red Blood Cells Identification (test code = 4413) Product Code (test [id number] Performed at [facility] code = 4414) Laboratory Services [facility] Blood [address] Free: [phone] A No. [id number] [facility] [id number] 18:20:13 Test Item Value Reference Interpretation Comments Range TROPONIN I (test 0.086 ng/mL See_Comment H [Automated code = 9734260144) message] The system which generated this result [...] biotin. Lab Interpretation Abnormal (test code = 82966-9) [facility] [id number] 18:20:13 Test Item Value Reference Interpretation Comments Range TROPONIN I (test 0.086 ng/mL See_Comment H [Automated code = 7560075354) message] The system which generated this result [...] biotin. Lab Interpretation Abnormal (test code = 03395-7) [facility] [id number] 18:20:13 Test Item Value Reference Interpretation Comments Range TROPONIN I (test 0.086 ng/mL See_Comment H [Automated code = 3925122672) message] The system which generated this result [...] biotin. Lab Interpretation Abnormal (test code = 39378-6) [facility] [id number] 18:20:13 Test Item Value Reference Interpretation Comments Range TROPONIN I (test 0.086 ng/mL See_Comment H [Automated code = 5324742124) message] The system which generated this result [...] biotin. Lab Interpretation Abnormal (test code = 80143-7) [facility] [id number] 18:20:13 Test Item Value Reference Interpretation Comments Range TROPONIN I (test 0.086 ng/mL See_Comment H [Automated code = 4066899952) message] The system which generated this result [...] biotin. Lab Interpretation Abnormal (test code = 52902-0) [facility] GLUCOSE (AUTOMATED)2022-05-27 17:48:23 Test Item Value Reference Range Interpretation Comments POCT GLU (test code = 92 mg/dL 70-110 Notifi ed Provider [id number]) Lab Interpretation (test Normal code = 01602-9) [facility] GLUCOSE (AUTOMATED)2022-05-27 17:48:23 Test Item Value Reference Range Interpretation Comments POCT GLU (test code = 92 mg/dL 70-110 Notifi ed Provider [id number]) Lab Interpretation (test Normal code = 10543-4) [facility] GLUCOSE (AUTOMATED)2022-05-27 17:48:23 Test Item Value Reference Range Interpretation Comments POCT GLU (test code = 92 mg/dL 70-110 Notifi ed Provider [id number]) Lab Interpretation (test Normal code = 04773-2) [facility] GLUCOSE (AUTOMATED)2022-05-27 17:48:23 Test Item Value Reference Range Interpretation Comments POCT GLU (test code = 92 mg/dL 70-110 Notifi ed Provider [id number]) Lab Interpretation (test Normal code = 56173-9) [facility] GLUCOSE (AUTOMATED)2022-05-27 17:48:23 Test Item Value Reference Range Interpretation Comments POCT GLU (test code = 92 mg/dL 70-110 Notifi ed Provider [id number]) Lab Interpretation (test Normal code = 25689-5) [facility] and Screen - ONCE Gzvlolr7326-79-59 16:38:25 Test Item Value Reference Range Interpretation Comments ABO & RH (test code B Positive Performe d at [facility] = 20) Laboratory [facility] Blood [place] [address]Toll Free: [phone] A No. [id number] IAT (test code = Negative Performed a t [facility] 1185) Laboratory [facility] Blood [place] [address]Toll Free: [phone] A No. [id number] [facility] and Screen - ONCE Azigwdt1418-95-34 16:38:25 Test Item Value Reference Range Interpretation Comments ABO & RH (test code B Positive Performe d at [facility] = 20) Laboratory [facility] Blood [place] [address]Toll Free: [phone] A No. [id number] IAT (test code = Negative Performed a t [facility] 1185) Laboratory [facility] Blood [place] [address]Toll Free: [phone] A No. [id number] [facility] and Screen - ONCE Uzptcnc2196-90-99 16:38:25 Test Item Value Reference Range Interpretation Comments ABO & RH (test code B Positive Performe d at [facility] = 20) Laboratory [facility] Blood [place] [address]Toll Free: [phone] A No. [id number] IAT (test code = Negative Performed a t [facility] 1185) Laboratory [facility] Blood [place] [address]Toll Free: [phone] A No. [id number] [facility] and Screen - ONCE Mbyplar5966-84-98 16:38:25 Test Item Value Reference Range Interpretation Comments ABO & RH (test code B Positive Performe d at [facility] = 20) Laboratory [facility] Blood [address] [place] [address] Free: [phone] A No. [id number] IAT (test code = Negative Performed a t [facility] 1185) Laboratory [facility] Blood [address] Free: [phone] A No. [id number] [facility] Vkxnvkz8221-01-25 16:38:25 Test Item Value Reference Range Interpretation Comments ABO & RH (test code B Positive Performe d at [facility] = 20) Laboratory [facility] Blood [address] Free: [phone] A No. [id number] IAT (test code = Negative Performed a t [facility] 1185) Laboratory [facility] [address] [place] [address] Free: [phone] A No. [id number] [facility] [id number] 16:16:55 Test Item Value Reference Range Interpretation Comments WBC (test code = See_Comment L [Automated 7190-2) message] The sy stem which generated this result transmitted reference range : 4.20 - 10.70 10*3/?L. The reference range was not used to interpret this result as normal/abnormal . RBC (test code = See_Comment L [Automated 509-8) message] The sy stem which generated this result transmitted reference range : 4.26 - 5.52 10*6/?L. The reference range was not used to interpret this result as normal/abnormal . HGB (test code = 6.9 g/dL 12.2-16.4 L 718-7) HCT (test code = 22.8 % 38.4-49.3 L 4544-3) MCV (test code = 89.4 fL 81.7-95.6 787-2) MCH (test code = 27.1 pg 26.1-32.7 785-6) MCHC (test code = 30.3 g/dL 31.2-35.0 L 786-4) RDW-SD (test code = 54.2 fL 38.5-51.6 H 91938-2) RDW-CV (test code = 16.6 % 12.1-15.4 H 788-0) PLT (test code = See_Comment [Automated 777-3) message] The sy stem which generated this result transmitted reference range : 150 - 328 10*3/ ?L. The reference r yazan was not used to interpret this result as normal/abnormal . MPV (test code = 11.6 fL 9.8-13.0 85406-5) NRBC/100 WBC (test See_Comment [Automat ed code = 8313194854) message] The system which generated this result transmitted reference range : 0.0 - 10.0 /100 WBCs. The refer ence range was not u sed to interpret th is result as normal/abnormal . NRBC x10^3 (test code See_Comment [Auto mated = 1446166041) message] The s ystem which generated this result transmitted reference range : 10*3/?L. The reference range was not used to interpret this result as normal/abnormal . GRAN MAT (NEUT) % 63.1 % (test code = 770-8) IMM GRAN % (test code 0.20 % = 2404075092) LYMPH % (test code = 14.3 % 736-9) MONO % (test code = 20.2 % 5905-5) EOS % (test code = 1.7 % 713-8) BASO % (test code = 0.5 % 706-2) GRAN MAT x10^3(ANC) 2.55 10*3/uL 1.99-6.95 (test code = 6394129403) IMM GRAN x10^3 (test 0.00-0.06 code = 0639430571) LYMPH x10^3 (test code 0.58 10*3/uL 1.09-3.23 L = 731-0) MONO x10^3 (test code 0.82 10*3/uL 0.36-1.02 = 742-7) EOS x10^3 (test code = 0.07 10*3/uL 0.06-0.53 711-2) BASO x10^3 (test code 0.01-0.09 = 704-7) Lab Interpretation Abnormal (test code = 26616-6) [facility] WITH [id number] 16:16:55 Test Item Value Reference Range Interpretation Comments WBC (test code = See_Comment L [Automated 6690-2) message] The sy stem which [...] as normal/abnormal . HGB (test code = 6.9 g/dL 12.2-16.4 L 718-7) HCT (test code = 22.8 % 38.4-49.3 L 4544-3) MCV (test code = 89.4 fL 81.7-95.6 787-2) MCH (test code = 27.1 pg 26.1-32.7 785-6) MCHC (test code = 30.3 g/dL 31.2-35.0 L 786-4) RDW-SD (test code = 54.2 fL 38.5-51.6 H 19830-1) RDW-CV (test code = 16.6 % 12.1-15.4 H 788-0) PLT (test code = See_Comment [Automated 777-3) message] The sy stem which generated this result transmitted reference range : 150 - 328 10*3/ ?L. The reference r yazan was not used to interpret this result as normal/abnormal . MPV (test code = 11.6 fL 9.8-13.0 09850-5) NRBC/100 WBC (test See_Comment [Automat ed code = 8049289269) message] The system which generated this result transmitted reference range : 0.0 - 10.0 /100 WBCs. The refer ence range was not u sed to interpret th is result as normal/abnormal . NRBC x10^3 (test code See_Comment [Auto mated = 6262275884) message] The s ystem which generated this result transmitted reference range : 10*3/?L. The reference range was not used to interpret this result as normal/abnormal . GRAN MAT (NEUT) % 63.1 % (test code = 770-8) IMM GRAN % (test code 0.20 % = 0967458195) LYMPH % (test code = 14.3 % 736-9) MONO % (test code = 20.2 % 5905-5) EOS % (test code = 1.7 % 713-8) BASO % (test code = 0.5 % 706-2) GRAN MAT x10^3(ANC) 2.55 10*3/uL 1.99-6.95 (test code = 1044082679) IMM GRAN x10^3 (test 0.00-0.06 code = 6907614630) LYMPH x10^3 (test code 0.58 10*3/uL 1.09-3.23 L = 731-0) MONO x10^3 (test code 0.82 10*3/uL 0.36-1.02 = 742-7) EOS x10^3 (test code = 0.07 10*3/uL 0.06-0.53 711-2) BASO x10^3 (test code 0.01-0.09 = 704-7) Lab Interpretation Abnormal (test code = 90187-0) [facility] WITH [id number] 16:16:55 Test Item Value Reference Range Interpretation Comments WBC (test code = See_Comment L [Automated 6690-2) message] The sy stem which generated this result transmitted reference range : 4.20 - 10.70 10*3/?L. The reference range was not used to interpret this result as normal/abnormal . RBC (test code = See_Comment L [Automated 289-8) message] The sy stem which generated this result transmitted reference range : 4.26 - 5.52 10*6/?L. The reference range was not used to interpret this result as normal/abnormal . HGB (test code = 6.9 g/dL 12.2-16.4 L 718-7) HCT (test code = 22.8 % 38.4-49.3 L 4544-3) MCV (test code = 89.4 fL 81.7-95.6 787-2) MCH (test code = 27.1 pg 26.1-32.7 785-6) MCHC (test code = 30.3 g/dL 31.2-35.0 L 786-4) RDW-SD (test code = 54.2 fL 38.5-51.6 H 19906-6) RDW-CV (test code = 16.6 % 12.1-15.4 H 788-0) PLT (test code = See_Comment [Automated 777-3) message] The sy stem which generated this result transmitted reference range : 150 - 328 10*3/ ?L. The reference r yazan was not used to interpret this result as normal/abnormal . MPV (test code = 11.6 fL 9.8-13.0 87805-6) NRBC/100 WBC (test See_Comment [Automat ed code = 5727748092) message] The system which generated this result transmitted reference range : 0.0 - 10.0 /100 WBCs. The refer ence range was not u sed to interpret th is result as normal/abnormal . NRBC x10^3 (test code See_Comment [Auto mated = 1197099029) message] The s ystem which generated this result transmitted reference range : 10*3/?L. The reference range was not used to interpret this result as normal/abnormal . GRAN MAT (NEUT) % 63.1 % (test code = 770-8) IMM GRAN % (test code 0.20 % = 2438167322) LYMPH % (test code = 14.3 % 736-9) MONO % (test code = 20.2 % 5905-5) EOS % (test code = 1.7 % 713-8) BASO % (test code = 0.5 % 706-2) GRAN MAT x10^3(ANC) 2.55 10*3/uL 1.99-6.95 (test code = 6220851936) IMM GRAN x10^3 (test 0.00-0.06 code = 4478925595) LYMPH x10^3 (test code 0.58 10*3/uL 1.09-3.23 L = 731-0) MONO x10^3 (test code 0.82 10*3/uL 0.36-1.02 = 742-7) EOS x10^3 (test code = 0.07 10*3/uL 0.06-0.53 711-2) BASO x10^3 (test code 0.01-0.09 = 704-7) Lab Interpretation Abnormal (test code = 94890-3) [facility] WITH [id number] 16:16:55 Test Item Value Reference Range Interpretation Comments WBC (test code = See_Comment L [Automated 6690-2) message] The sy stem which [...] as normal/abnormal . HGB (test code = 6.9 g/dL 12.2-16.4 L 718-7) HCT (test code = 22.8 % 38.4-49.3 L 4544-3) MCV (test code = 89.4 fL 81.7-95.6 787-2) MCH (test code = 27.1 pg 26.1-32.7 785-6) MCHC (test code = 30.3 g/dL 31.2-35.0 L 786-4) RDW-SD (test code = 54.2 fL 38.5-51.6 H 41959-2) RDW-CV (test code = 16.6 % 12.1-15.4 H 788-0) PLT (test code = See_Comment [Automated 777-3) message] The sy stem which generated this result transmitted reference range : 150 - 328 10*3/ ?L. The reference r yazan was not used to interpret this result as normal/abnormal . MPV (test code = 11.6 fL 9.8-13.0 97762-2) NRBC/100 WBC (test See_Comment [Automat ed code = 0210246490) message] The system which generated this result transmitted reference range : 0.0 - 10.0 /100 WBCs. The refer ence range was not u sed to interpret th is result as normal/abnormal . NRBC x10^3 (test code See_Comment [Auto mated = 4716001536) message] The s ystem which generated this result transmitted reference range : 10*3/?L. The reference range was not used to interpret this result as normal/abnormal . GRAN MAT (NEUT) % 63.1 % (test code = 770-8) IMM GRAN % (test code 0.20 % = 3331512363) LYMPH % (test code = 14.3 % 736-9) MONO % (test code = 20.2 % 5905-5) EOS % (test code = 1.7 % 713-8) BASO % (test code = 0.5 % 706-2) GRAN MAT x10^3(ANC) 2.55 10*3/uL 1.99-6.95 (test code = 4205707809) IMM GRAN x10^3 (test 0.00-0.06 code = 9474470200) LYMPH x10^3 (test code 0.58 10*3/uL 1.09-3.23 L = 731-0) MONO x10^3 (test code 0.82 10*3/uL 0.36-1.02 = 742-7) EOS x10^3 (test code = 0.07 10*3/uL 0.06-0.53 711-2) BASO x10^3 (test code 0.01-0.09 = 704-7) Lab Interpretation Abnormal (test code = 05537-1) [facility] WITH [id number] 16:16:55 Test Item Value Reference Range Interpretation Comments WBC (test code = See_Comment L [Automated 6690-2) message] The sy stem which [...] as normal/abnormal . HGB (test code = 6.9 g/dL 12.2-16.4 L 718-7) HCT (test code = 22.8 % 38.4-49.3 L 4544-3) MCV (test code = 89.4 fL 81.7-95.6 787-2) MCH (test code = 27.1 pg 26.1-32.7 785-6) MCHC (test code = 30.3 g/dL 31.2-35.0 L 786-4) RDW-SD (test code = 54.2 fL 38.5-51.6 H 15339-3) RDW-CV (test code = 16.6 % 12.1-15.4 H 788-0) PLT (test code = See_Comment [Automated 777-3) message] The sy stem which generated this result transmitted reference range : 150 - 328 10*3/ ?L. The reference r yazan was not used to interpret this result as normal/abnormal . MPV (test code = 11.6 fL 9.8-13.0 50822-4) NRBC/100 WBC (test See_Comment [Automat ed code = 4747141451) message] The system which generated this result transmitted reference range : 0.0 - 10.0 /100 WBCs. The refer ence range was not u sed to interpret th is result as normal/abnormal . NRBC x10^3 (test code See_Comment [Auto mated = 0403688619) message] The s ystem which generated this result transmitted reference range : 10*3/?L. The reference range was not used to interpret this result as normal/abnormal . GRAN MAT (NEUT) % 63.1 % (test code = 770-8) IMM GRAN % (test code 0.20 % = 1435652030) LYMPH % (test code = 14.3 % 736-9) MONO % (test code = 20.2 % 5905-5) EOS % (test code = 1.7 % 713-8) BASO % (test code = 0.5 % 706-2) GRAN MAT x10^3(ANC) 2.55 10*3/uL 1.99-6.95 (test code = 2709646453) IMM GRAN x10^3 (test 0.00-0.06 code = 2256503426) LYMPH x10^3 (test code 0.58 10*3/uL 1.09-3.23 L = 731-0) MONO x10^3 (test code 0.82 10*3/uL 0.36-1.02 = 742-7) EOS x10^3 (test code = 0.07 10*3/uL 0.06-0.53 711-2) BASO x10^3 (test code 0.01-0.09 = 704-7) Lab Interpretation Abnormal (test code = 51477-1) [facility] Packed RBC (in units), 1 Units 2022-05-27 08:00:14 Test Item Value Reference Range Interpretation Comments Cross Match Result Compatible (test code = 4409) ISBT Blood Type Code (test code = 463920) Unit Blood Type (test B Pos code = 4410) Unit Number (test [id number] code = 4411) Blood Expiration Date & Time (test code = 189624) Status Information Issued (test code = 4412) Product Red Blood Cells Identification (test code = 4413) Product Code (test [id number] Performed at [facility] code = 4414) Laboratory Services [facility] Blood [address] [place] [address] Free: [phone] A No. [id number] [facility] Packed RBC (in units), 1 Units 2022-05-27 08:00:14 Test Item Value Reference Range Interpretation Comments Cross Match Result Compatible (test code = 4409) ISBT Blood Type Code (test code = 348547) Unit Blood Type (test B Pos code = 4410) Unit Number (test [id number] code = 4411) Blood Expiration Date & Time (test code = 282356) Status Information Issued (test code = 4412) Product Red Blood Cells Identification (test code = 4413) Product Code (test [id number] Performed at [facility] code = 4414) Laboratory Services [facility] Blood [address] [place], [place] [address]Toll Free: [phone] A No. [id number] [facility] Packed RBC (in units), 1 Units 2022-05-27 08:00:14 Test Item Value Reference Range Interpretation Comments Cross Match Result Compatible (test code = 4409) ISBT Blood Type Code (test code = 445289) Unit Blood Type (test B Pos code = 4410) Unit Number (test [id number] code = 4411) Blood Expiration Date & Time (test code = 789129) Status Information Issued (test code = 4412) Product Red Blood Cells Identification (test code = 4413) Product Code (test [id number] Performed at [facility] code = 4414) Laboratory [facility] Blood [address] [place] [address] Free: [phone] A No. [id number] [facility] (in units), 1 Units 2022-05-27 08:00:14 Test Item Value Reference Range Interpretation Comments Cross Match Result Compatible (test code = 4409) ISBT Blood Type Code (test code = 546234) Unit Blood Type (test B Pos code = 4410) Unit Number (test [id number] code = 4411) Blood Expiration Date & Time (test code = 982031) Status Information Issued (test code = 4412) Product Red Blood Cells Identification (test code = 4413) Product Code (test G5425Z10 Performed at [facility] code = 4414) Laboratory [facility] Blood [place] [address]Toll Free: [phone] A No. [id number] [facility] RBC (in units), 1 Units 2022-05-27 08:00:14 Test Item Value Reference Range Interpretation Comments Cross Match Result Compatible (test code = 4409) ISBT Blood Type Code (test code = 626732) Unit Blood Type (test B Pos code = 4410) Unit Number (test [id number] code = 4411) Blood Expiration Date & Time (test code = 245634) Status Information Issued (test code = 4412) Product Red Blood Cells Identification (test code = 4413) Product Code (test K3189K93 Performed at [facility] code = 4414) Laboratory [facility] Blood [address] [place], [place] [address]Toll Free: [phone] A No. [id number] [facility] - [facility] [id number] 07:39:47 Test Item Value Reference Range Interpretation Comments ABO & RH (test code B Positive Performe d at [facility] = 20) Laboratory [facility] Blood [place] [address]Toll Free: [phone] A No. [id number] IAT (test code = Negative Performed a t [facility] 1185) Laboratory [facility] Blood [place] [address]Toll Free: [phone] A No. [id number] [facility] and Screen - ONCE [id number] 07:39:47 Test Item Value Reference Range Interpretation Comments ABO & RH (test code B Positive Performe d at [facility] = 20) Laboratory [facility] Blood [place] [address]Toll Free: [phone] A No. [id number] IAT (test code = Negative Performed a t [facility] 1185) Laboratory [facility] Blood [place] [address]Toll Free: [phone] A No. [id number] [facility] and Screen - ONCE [id number] 07:39:47 Test Item Value Reference Range Interpretation Comments ABO & RH (test code B Positive Performe d at [facility] = 20) Laboratory [facility] Blood [address] [place], [place] [address]Toll Free: [phone] A No. [id number] IAT (test code = Negative Performed a t [facility] 1185) Laboratory [facility] Blood [place] [address]Toll Free: [phone] A No. [id number] [facility] [id number] 07:39:47 Test Item Value Reference Range Interpretation Comments ABO & RH (test code B Positive Performe d at [facility] = 20) Laboratory [facility] Blood [address] [place] [address] Free: [phone] A No. [id number] IAT (test code = Negative Performed a t [facility] 1185) Laboratory [facility] Blood [place] [address]Toll Free: [phone] A No. [id number] [facility] [id number] 07:39:47 Test Item Value Reference Range Interpretation Comments ABO & RH (test code B Positive Performe d at [facility] = 20) Laboratory [facility] Blood [address] Free: [phone] A No. [id number] IAT (test code = Negative Performed a t [facility] 1185) Laboratory [facility] Blood [address] Free: [phone] A No. [id number] [facility] [id number] 07:13:31 Test Item Value Reference Interpretation Comments Range TROPONIN I (test 0.084 ng/mL See_Comment H [Automated code = 8325288775) message] The system which generated this result [...] biotin. Lab Interpretation Abnormal (test code = 72730-1) [facility] [id number] 07:13:31 Test Item Value Reference Interpretation Comments Range TROPONIN I (test 0.084 ng/mL See_Comment H [Automated code = 5451646540) message] The system which generated this result [...] biotin. Lab Interpretation Abnormal (test code = 27204-4) [facility] [id number] 07:13:31 Test Item Value Reference Interpretation Comments Range TROPONIN I (test 0.084 ng/mL See_Comment H [Automated code = 9113345894) message] The system which generated this result [...] biotin. Lab Interpretation Abnormal (test code = 89596-7) [facility] [id number] 07:13:31 Test Item Value Reference Interpretation Comments Range TROPONIN I (test 0.084 ng/mL See_Comment H [Automated code = 8810349307) message] The system which generated this result [...] biotin. Lab Interpretation Abnormal (test code = 78732-0) [facility] [id number] 07:13:31 Test Item Value Reference Interpretation Comments Range TROPONIN I (test 0.084 ng/mL See_Comment H [Automated code = 5013256461) message] The system which generated this result [...] biotin. Lab Interpretation Abnormal (test code = 76039-4) [facility] 07:03:41 Test Item Value Reference Range Interpretation Comments MAGNESIUM (test code = 0392024856) 2.1 mg/dL 1.7-2.4 Lab Interpretation (test code = Normal 01475-5) [facility]2023-01-19 07:03:41 Test Item Value Reference Range Interpretation Comments MAGNESIUM (test code = 0287638728) 2.1 mg/dL 1.7-2.4 Lab Interpretation (test code = Normal 45204-4) [facility]2023-01-19 07:03:41 Test Item Value Reference Range Interpretation Comments MAGNESIUM (test code = 3300425876) 2.1 mg/dL 1.7-2.4 Lab Interpretation (test code = Normal 61854-7) [facility]2023-01-19 07:03:41 Test Item Value Reference Range Interpretation Comments MAGNESIUM (test code = 2977387062) 2.1 mg/dL 1.7-2.4 Lab Interpretation (test code = Normal 88789-9) [facility]2023-01-19 07:03:41 Test Item Value Reference Range Interpretation Comments MAGNESIUM (test code = 0904804295) 2.1 mg/dL 1.7-2.4 Lab Interpretation (test code = Normal 86564-4) [facility]. METABOLIC PANEL (04520)2022-05-27 07:02:50 Test Item Value Reference Range Interpretation Comments NA (test code = 136 mmol/L 135-145 1553809063) K (test code = 4.2 mmol/L 3.5-5.0 7121751358) CL (test code = 96 mmol/L 98-108 L 1714956940) CO2 TOTAL (test code = 26 mmol/L 23-31 4187454200) AGAP (test code = 2-16 3187307611) BUN (test code = 57 mg/dL 7-23 H 0363455324) GLUCOSE (test code = 106 mg/dL 70-110 7994676518) CREATININE (test code = 8.51 mg/dL 0.60-1.25 H 1075327364) TOTAL BILI (test code = 0.6 mg/dL 0.1-1.3 5187914228) CALCIUM (test code = 8.7 mg/dL 8.6-10.6 3004882427) T PROTEIN (test code = 6.6 g/dL 6.3-8.2 0241468692) ALBUMIN (test code = 3.5 g/dL 3.5-5.0 7282040510) ALK PHOS (test code = 73 U/L 34-122 0175495299) ALTv (test code = 19 U/L 5-50 1742-6) AST(SGOT) (test code = 24 U/L 13-40 5040728715) eGFR (test code = mL/min/1.73m2 5890060318) AJ (test code = AJ) Association of [...] tests). Lab Interpretation Abnormal (test code = 50902-0) [facility] 07:02:50 Test Item Value Reference Range Interpretation Comments LIPASE (test code = 8629515570) 107 U/L 0-220 Lab Interpretation (test code = Normal 45876-2) [facility] MET[facility]OLIC PANEL ([id number])2022-05-27 07:02:50 Test Item Value Reference Range Interpretation Comments NA (test code = 136 mmol/L 135-145 4669317504) K (test code = 4.2 mmol/L 3.5-5.0 4655316794) CL (test code = 96 mmol/L 98-108 L 5541209673) CO2 TOTAL (test code = 26 mmol/L 23-31 9128251170) AGAP (test code = 2-16 5036137283) BUN (test code = 57 mg/dL 7-23 H 6418237086) GLUCOSE (test code = 106 mg/dL 70-110 0841900845) CREATININE (test code = 8.51 mg/dL 0.60-1.25 H 8863737712) TOTAL BILI (test code = 0.6 mg/dL 0.1-1.8 5409895325) CALCIUM (test code = 8.7 mg/dL 8.6-10.6 4642900304) T PROTEIN (test code = 6.6 g/dL 6.3-8.2 3437375977) ALBUMIN (test code = 3.5 g/dL 3.5-5.0 8345321186) ALK PHOS (test code = 73 U/L 34-122 6909535867) ALTv (test code = 19 U/L 5-50 1742-6) AST(SGOT) (test code = 24 U/L 13-40 7046561069) eGFR (test code = mL/min/1.73m2 3983811023) AJ (test code = AJ) Association of [...] tests). Lab Interpretation Abnormal (test code = 26261-1) [facility] 07:02:50 Test Item Value Reference Range Interpretation Comments LIPASE (test code = 3013337662) 107 U/L 0-220 Lab Interpretation (test code = Normal 09862-4) [facility]OLIC [facility] ([id number])2022-05-27 07:02:50 Test Item Value Reference Range Interpretation Comments NA (test code = 136 mmol/L 135-145 5487737417) K (test code = 4.2 mmol/L 3.5-5.0 7506549801) CL (test code = 96 mmol/L 98-108 L 4951004037) CO2 TOTAL (test code = 26 mmol/L 23-31 4831998140) AGAP (test code = 2-16 3748472179) BUN (test code = 57 mg/dL 7-23 H 0688868021) GLUCOSE (test code = 106 mg/dL 70-110 9778547279) CREATININE (test code = 8.51 mg/dL 0.60-1.25 H 2375361305) TOTAL BILI (test code = 0.6 mg/dL 0.1-1.9 1261331041) CALCIUM (test code = 8.7 mg/dL 8.6-10.6 9725353857) T PROTEIN (test code = 6.6 g/dL 6.3-8.2 2758098026) ALBUMIN (test code = 3.5 g/dL 3.5-5.0 2837194336) ALK PHOS (test code = 73 U/L 34-122 4382285739) ALTv (test code = 19 U/L 5-50 1742-6) AST(SGOT) (test code = 24 U/L 13-40 0293816325) eGFR (test code = mL/min/1.73m2 0577848054) AJ (test code = AJ) Association of [...] tests). Lab Interpretation Abnormal (test code = 64859-7) [facility] 07:02:50 Test Item Value Reference Range Interpretation Comments LIPASE (test code = 3792698997) 107 U/L 0-220 Lab Interpretation (test code = Normal 52766-7) [facility]OLIC PANEL ([id number])2022-05-27 07:02:50 Test Item Value Reference Range Interpretation Comments NA (test code = 136 mmol/L 135-145 3288630367) K (test code = 4.2 mmol/L 3.5-5.0 2199614106) CL (test code = 96 mmol/L 98-108 L 5495964167) CO2 TOTAL (test code = 26 mmol/L 23-31 7240021366) AGAP (test code = 2-16 7934149640) BUN (test code = 57 mg/dL 7-23 H 8792938309) GLUCOSE (test code = 106 mg/dL 70-110 3507914843) CREATININE (test code = 8.51 mg/dL 0.60-1.25 H 0909358493) TOTAL BILI (test code = 0.6 mg/dL 0.1-1.0 1590162939) CALCIUM (test code = 8.7 mg/dL 8.6-10.6 5825151276) T PROTEIN (test code = 6.6 g/dL 6.3-8.2 3235034425) ALBUMIN (test code = 3.5 g/dL 3.5-5.0 5794512487) ALK PHOS (test code = 73 U/L 34-122 7238662979) ALTv (test code = 19 U/L 5-50 1742-6) AST(SGOT) (test code = 24 U/L 13-40 1634675638) eGFR (test code = mL/min/1.73m2 0334264270) AJ (test code = AJ) Association of [...] tests). Lab Interpretation Abnormal (test code = 93699-2) [facility] 07:02:50 Test Item Value Reference Range Interpretation Comments LIPASE (test code = 4191653403) 107 U/L 0-220 Lab Interpretation (test code = Normal 65748-5) [facility]OLIC [facility] ([id number])2022-05-27 07:02:50 Test Item Value Reference Range Interpretation Comments NA (test code = 136 mmol/L 135-145 7183141745) K (test code = 4.2 mmol/L 3.5-5.0 0960218085) CL (test code = 96 mmol/L 98-108 L 2738499789) CO2 TOTAL (test code = 26 mmol/L 23-31 4214128269) AGAP (test code = 2-16 3648292041) BUN (test code = 57 mg/dL 7-23 H 2119459814) GLUCOSE (test code = 106 mg/dL 70-110 7604432846) CREATININE (test code = 8.51 mg/dL 0.60-1.25 H 0765414798) TOTAL BILI (test code = 0.6 mg/dL 0.1-1.5 5100403262) CALCIUM (test code = 8.7 mg/dL 8.6-10.6 2525256138) T PROTEIN (test code = 6.6 g/dL 6.3-8.2 7029805336) ALBUMIN (test code = 3.5 g/dL 3.5-5.0 9710954235) ALK PHOS (test code = 73 U/L 34-122 7272608756) ALTv (test code = 19 U/L 5-50 1742-6) AST(SGOT) (test code = 24 U/L 13-40 9005442626) eGFR (test code = mL/min/1.73m2 6190445318) AJ (test code = AJ) Association of [...] tests). Lab Interpretation Abnormal (test code = 57957-8) [facility] 07:02:50 Test Item Value Reference Range Interpretation Comments LIPASE (test code = 6962189846) 107 U/L 0-220 Lab Interpretation (test code = Normal 18000-7) [facility] [id number] 06:44:09 Test Item Value Reference Range Interpretation Comments WBC (test code = See_Comment [Automated 6322-2) message] The sy stem which generated this result transmitted reference range : 4.20 - 10.70 10*3/?L. The reference range was not used to interpret this result as normal/abnormal . RBC (test code = See_Comment L [Automated 199-8) message] The sy stem which generated this result transmitted reference range : 4.26 - 5.52 10*6/?L. The reference range was not used to interpret this result as normal/abnormal . HGB (test code = 6.6 g/dL 12.2-16.4 L 718-7) HCT (test code = 21.5 % 38.4-49.3 L 4544-3) MCV (test code = 88.1 fL 81.7-95.6 787-2) MCH (test code = 27.0 pg 26.1-32.7 785-6) MCHC (test code = 30.7 g/dL 31.2-35.0 L 786-4) RDW-SD (test code = 54.9 fL 38.5-51.6 H 60713-7) RDW-CV (test code = 17.2 % 12.1-15.4 H 788-0) PLT (test code = See_Comment [Automated 777-3) message] The sy stem which generated this result transmitted reference range : 150 - 328 10*3/ ?L. The reference r yazan was not used to interpret this result as normal/abnormal . MPV (test code = 11.5 fL 9.8-13.0 73730-7) NRBC/100 WBC (test See_Comment [Automat ed code = 7653480871) message] The system which generated this result transmitted reference range : 0.0 - 10.0 /100 WBCs. The refer ence range was not u sed to interpret th is result as normal/abnormal . NRBC x10^3 (test code See_Comment [Auto mated = 1318957536) message] The s ystem which generated this result transmitted reference range : 10*3/?L. The reference range was not used to interpret this result as normal/abnormal . GRAN MAT (NEUT) % 72.3 % (test code = 770-8) IMM GRAN % (test code 0.20 % = 2235783691) LYMPH % (test code = 11.1 % 736-9) MONO % (test code = 14.3 % 5905-5) EOS % (test code = 1.2 % 713-8) BASO % (test code = 0.9 % 706-2) GRAN MAT x10^3(ANC) 3.14 10*3/uL 1.99-6.95 (test code = 0423986896) IMM GRAN x10^3 (test 0.00-0.06 code = 2890141588) LYMPH x10^3 (test code 0.48 10*3/uL 1.09-3.23 L = 731-0) MONO x10^3 (test code 0.62 10*3/uL 0.36-1.02 = 742-7) EOS x10^3 (test code = 0.05 10*3/uL 0.06-0.53 L 711-2) BASO x10^3 (test code 0.04 10*3/uL 0.01-0.09 = 704-7) Lab Interpretation Abnormal (test code = 92307-1) [facility] WITH [id number] 06:44:09 Test Item Value Reference Range Interpretation Comments [...] as normal/abnormal . HGB (test code = 6.6 g/dL 12.2-16.4 L 718-7) HCT (test code = 21.5 % 38.4-49.3 L 4544-3) MCV (test code = 88.1 fL 81.7-95.6 787-2) MCH (test code = 27.0 pg 26.1-32.7 785-6) MCHC (test code = 30.7 g/dL 31.2-35.0 L 786-4) RDW-SD (test code = 54.9 fL 38.5-51.6 H 41410-3) RDW-CV (test code = 17.2 % 12.1-15.4 H 788-0) PLT (test code = See_Comment [Automated 777-3) message] The sy stem which generated this result transmitted reference range : 150 - 328 10*3/ ?L. The reference r yazan was not used to interpret this result as normal/abnormal . MPV (test code = 11.5 fL 9.8-13.0 52598-9) NRBC/100 WBC (test See_Comment [Automat ed code = 0064058919) message] The system which generated this result transmitted reference range : 0.0 - 10.0 /100 WBCs. The refer ence range was not u sed to interpret th is result as normal/abnormal . NRBC x10^3 (test code See_Comment [Auto mated = 5474286162) message] The s ystem which generated this result transmitted reference range : 10*3/?L. The reference range was not used to interpret this result as normal/abnormal . GRAN MAT (NEUT) % 72.3 % (test code = 770-8) IMM GRAN % (test code 0.20 % = 6488423610) LYMPH % (test code = 11.1 % 736-9) MONO % (test code = 14.3 % 5905-5) EOS % (test code = 1.2 % 713-8) BASO % (test code = 0.9 % 706-2) GRAN MAT x10^3(ANC) 3.14 10*3/uL 1.99-6.95 (test code = 1365686326) IMM GRAN x10^3 (test 0.00-0.06 code = 9138932103) LYMPH x10^3 (test code 0.48 10*3/uL 1.09-3.23 L = 731-0) MONO x10^3 (test code 0.62 10*3/uL 0.36-1.02 = 742-7) EOS x10^3 (test code = 0.05 10*3/uL 0.06-0.53 L 711-2) BASO x10^3 (test code 0.04 10*3/uL 0.01-0.09 = 704-7) Lab Interpretation Abnormal (test code = 17655-2) [facility] WITH [id number] 06:44:09 Test Item Value Reference Range Interpretation Comments [...] as normal/abnormal . HGB (test code = 6.6 g/dL 12.2-16.4 L 718-7) HCT (test code = 21.5 % 38.4-49.3 L 4544-3) MCV (test code = 88.1 fL 81.7-95.6 787-2) MCH (test code = 27.0 pg 26.1-32.7 785-6) MCHC (test code = 30.7 g/dL 31.2-35.0 L 786-4) RDW-SD (test code = 54.9 fL 38.5-51.6 H 58950-8) RDW-CV (test code = 17.2 % 12.1-15.4 H 788-0) PLT (test code = See_Comment [Automated 777-3) message] The sy stem which generated this result transmitted reference range : 150 - 328 10*3/ ?L. The reference r yazan was not used to interpret this result as normal/abnormal . MPV (test code = 11.5 fL 9.8-13.0 85611-6) NRBC/100 WBC (test See_Comment [Automat ed code = [id number]) message] The system which generated this result transmitted reference range : 0.0 - 10.0 /100 WBCs. The refer ence range was not u sed to interpret th is result as normal/abnormal . NRBC x10^3 (test code See_Comment [Auto mated = [id number]) message] The s ystem which generated this result transmitted reference range : 10*3/?L. The reference range was not used to interpret this result as normal/abnormal . GRAN MAT (NEUT) % 72.3 % (test code = 770-8) IMM GRAN % (test code 0.20 % = 1596390410) LYMPH % (test code = 11.1 % 736-9) MONO % (test code = 14.3 % 5905-5) EOS % (test code = 1.2 % 713-8) BASO % (test code = 0.9 % 706-2) GRAN MAT x10^3(ANC) 3.14 10*3/uL 1.99-6.95 (test code = 0913891337) IMM GRAN x10^3 (test 0.00-0.06 code = 8736979770) LYMPH x10^3 (test code 0.48 10*3/uL 1.09-3.23 L = 731-0) MONO x10^3 (test code 0.62 10*3/uL 0.36-1.02 = 742-7) EOS x10^3 (test code = 0.05 10*3/uL 0.06-0.53 L 711-2) BASO x10^3 (test code 0.04 10*3/uL 0.01-0.09 = 704-7) Lab Interpretation Abnormal (test code = 20403-1) [facility] WITH [id number] 06:44:09 Test Item Value Reference Range Interpretation Comments [...] as normal/abnormal . HGB (test code = 6.6 g/dL 12.2-16.4 L 718-7) HCT (test code = 21.5 % 38.4-49.3 L 4544-3) MCV (test code = 88.1 fL 81.7-95.6 787-2) MCH (test code = 27.0 pg 26.1-32.7 785-6) MCHC (test code = 30.7 g/dL 31.2-35.0 L 786-4) RDW-SD (test code = 54.9 fL 38.5-51.6 H 88995-1) RDW-CV (test code = 17.2 % 12.1-15.4 H 788-0) PLT (test code = See_Comment [Automated 777-3) message] The sy stem which generated this result transmitted reference range : 150 - 328 10*3/ ?L. The reference r yazan was not used to interpret this result as normal/abnormal . MPV (test code = 11.5 fL 9.8-13.0 62078-2) NRBC/100 WBC (test See_Comment [Automat ed code = 7037152167) message] The system which generated this result transmitted reference range : 0.0 - 10.0 /100 WBCs. The refer ence range was not u sed to interpret th is result as normal/abnormal . NRBC x10^3 (test code See_Comment [Auto mated = 2169020328) message] The s ystem which generated this result transmitted reference range : 10*3/?L. The reference range was not used to interpret this result as normal/abnormal . GRAN MAT (NEUT) % 72.3 % (test code = 770-8) IMM GRAN % (test code 0.20 % = 9198535988) LYMPH % (test code = 11.1 % 736-9) MONO % (test code = 14.3 % 5905-5) EOS % (test code = 1.2 % 713-8) BASO % (test code = 0.9 % 706-2) GRAN MAT x10^3(ANC) 3.14 10*3/uL 1.99-6.95 (test code = 5970635355) IMM GRAN x10^3 (test 0.00-0.06 code = 4330980924) LYMPH x10^3 (test code 0.48 10*3/uL 1.09-3.23 L = 731-0) MONO x10^3 (test code 0.62 10*3/uL 0.36-1.02 = 742-7) EOS x10^3 (test code = 0.05 10*3/uL 0.06-0.53 L 711-2) BASO x10^3 (test code 0.04 10*3/uL 0.01-0.09 = 704-7) Lab Interpretation Abnormal (test code = 44340-8) [facility] WITH [id number] 06:44:09 Test Item Value Reference Range Interpretation Comments [...] as normal/abnormal . HGB (test code = 6.6 g/dL 12.2-16.4 L 718-7) HCT (test code = 21.5 % 38.4-49.3 L 4544-3) MCV (test code = 88.1 fL 81.7-95.6 787-2) MCH (test code = 27.0 pg 26.1-32.7 785-6) MCHC (test code = 30.7 g/dL 31.2-35.0 L 786-4) RDW-SD (test code = 54.9 fL 38.5-51.6 H 07847-5) RDW-CV (test code = 17.2 % 12.1-15.4 H 788-0) PLT (test code = See_Comment [Automated 777-3) message] The sy stem which generated this result transmitted reference range : 150 - 328 10*3/ ?L. The reference r yazan was not used to interpret this result as normal/abnormal . MPV (test code = 11.5 fL 9.8-13.0 20326-8) NRBC/100 WBC (test See_Comment [Automat ed code = 9975795526) message] The system which generated this result transmitted reference range : 0.0 - 10.0 /100 WBCs. The refer ence range was not u sed to interpret th is result as normal/abnormal . NRBC x10^3 (test code See_Comment [Auto mated = 8735277901) message] The s ystem which generated this result transmitted reference range : 10*3/?L. The reference range was not used to interpret this result as normal/abnormal . GRAN MAT (NEUT) % 72.3 % (test code = 770-8) IMM GRAN % (test code 0.20 % = 1514688048) LYMPH % (test code = 11.1 % 736-9) MONO % (test code = 14.3 % 5905-5) EOS % (test code = 1.2 % 713-8) BASO % (test code = 0.9 % 706-2) GRAN MAT x10^3(ANC) 3.14 10*3/uL 1.99-6.95 (test code = 2415456613) IMM GRAN x10^3 (test 0.00-0.06 code = 7063642737) LYMPH x10^3 (test code 0.48 10*3/uL 1.09-3.23 L = 731-0) MONO x10^3 (test code 0.62 10*3/uL 0.36-1.02 = 742-7) EOS x10^3 (test code = 0.05 10*3/uL 0.06-0.53 L 711-2) BASO x10^3 (test code 0.04 10*3/uL 0.01-0.09 = 704-7) Lab Interpretation Abnormal (test code = 63969-4) [facility] WITH [id number] 15:26:00 Reason for Exam:->assess iliac vessels for renal transplant [facility] 1955 Sex: MFINAL REPORT TECHNIQUE: Grayscale, color Doppler, and spectral Doppler ultrasoundof the distal aorta and bilateral iliac arteries. INDICATION: Assess iliac vessels for renal transplant. COMPARISON: None. FINDINGS: The distal abdominal aorta is patent and measures 1.6 cm. The commoniliac arteries are patent and measure 1 cm on the right and 0.9 cm on the left.The external iliac arteries are patent and measure 0.9 cm on the right and 1.1 cm on the left.The internal iliac arteries were nonvisualized. Normal velocities and waveforms in the distal aorta and visualized bilateral iliac arteries. Bilateral common and external iliac veins are patent. IMPRESSION:Unremarkable Doppler ultrasound of the iliac vessels bilaterally. Signed: Lois Ribera MDReport Verified Date/Time:09/01/2021 15:26:03 U/S, ABDOMINAL, [id number] 15:23:00Reason for Exam:->Kidney transplant evaluation; comment on number of renal cysts on each side to meet criteria for Acquired Cystic Kidney Disease [facility] 1955 Sex: MFINAL REPORT TECHNIQUE: Grayscale ultrasound of the abdomen. INDICATION: Kidney transplant evaluation; comment on number of renal cysts on each side to meet criteria for Acquired Cystic Kidney Disease COMPARISON: Noncontrast CT 11/15/2019. FINDINGS: MIDLINE VASCULATURE: The visualizedinferior vena cava is patent. Portal vein is patent and measures 1.2 cm in diameter. The maximum visu alized aortic diameter is 2.4 cm. LIVER: The [...] There is increased echogenicity of the bilateral ambler kidneys. The kidneys are normal in size. No hydronephrosis. No sonographicallyevident solid mass lesion. The right kidney measures [...] acquired cystic kidney disease.. Signed: Lois Ribera MDReportVerified Date/Time: 09/01/2021 15:23:23 Prepare Leuko-Red [id number] 23:54:00 Test Item Value Reference Range Interpretation Comments CROSSMATCH (test code = 2264) COMPATIBLE Unit ABO (test code = B Pos 3880765) UNIT NUMBER (test code = [id number] 934-0) Status (test code = 6612172) TX_TIMEINCHART Blood Bank Product (test code RED BLOOD CELLS = 2263) PRODUCT CODE (test code = E7100G96 933-2) [facility] [id number] 23:54:00 Test Item Value Reference Range Interpretation Comments CROSSMATCH (test code = 2264) COMPATIBLE Unit ABO (test code = B Pos 2343924) UNIT NUMBER (test code = [id number] 934-0) Status (test code = 0562275) TX_TIMEINCHART Blood Bank Product (test code RED BLOOD CELLS = 2263) PRODUCT CODE (test code = F6674U62 933-2) [facility] [id number] 23:54:00 Test Item Value Reference Range Interpretation Comments CROSSMATCH (test code = 2264) COMPATIBLE Unit ABO (test code = B Pos 3350790) UNIT NUMBER (test code = [id number] 934-0) Status (test code = 1782344) TX_TIMEINCHART Blood Bank Product (test code RED BLOOD CELLS = 2263) PRODUCT CODE (test code = R8579V71 933-2) [facility] [id number] 23:54:00 Test Item Value Reference Range Interpretation Comments CROSSMATCH (test code = 2264) COMPATIBLE Unit ABO (test code = B Pos 6119852) UNIT NUMBER (test code = [id number] 934-0) Status (test code = 2953511) TX_TIMEINCHART Blood Bank Product (test code RED BLOOD CELLS = 2263) PRODUCT CODE (test code = C3236O57 933-2) [facility] [id number] 12:40:29 Test Item Value Reference Range Interpretation Comments Case Report (test code Surgical Pathology = 104) Report Case: [id number] Authorizing Provider: Ji Dowell MD Collected: 08/28/2021 11:16 AM Ordering Location: [address] Received: 08/28/2021 04:08 PM Service Pathologist: Ezequiel Palomino MD Specimen: Biopsy, Gastric, random biopsies DIAGNOSIS (test code = g7wqtUDoMQWdy1abYNAglS 3220) FuZzEwMzNcZnRuYmpcdWMx IHtccnRmMVxlcGljOTYwMV wsryMpCMNdaEFhA0Eomxgz SFmrOG4kLD4vjLijfAVioZ DqNHWdViOpi7ywf968dDBm f3eqRLATlddvrYu2gZvoV7 6kt6I4OmqaD02xcYVcUXP3 ATRgPRSvpUFzOQPzFIR0DN HeyYRxB3hiWTNoPE7hlbkb MVuhKAmzHMVivVB1LAXuuW BjC1IaZDGgZTjaHXGnibh0 YfUfFm5ukLJabLvsFAusGZ IyCUIwSAvmEAXgSxRvL1SG WKYRRTzzQqLOZO1YMJVDAT 6FN6w3EVExetefvMbsTDco uS77DiTzJFBQWYCMSTkBVF FHTxJZCJmxCD4DNP0PZP8N NHMgEWYLN3DQQAnVMOzqOC 9TF2BFEgNzD1fXX12TAlHH NDAESgeSTXDxjYFbDQ1fOM EXOBSGYtDLRXTSFNuJVV5P WITLEKARKBMbot06FKW2Wk Vsv5Z4AKX8IFHwIOLhy6sh ZGVmbGFuZzEwMzNcZnRuYm vmhEFwBNByBpDoq7lkh068 oLQpz6lbFKJvErC8fRYoNR YfkTQxY076BAAqOZnkl2zf t4ZaWCQyiYQyr4D8HGFCvf vavLw4oVojD44gt5U8Yvvs L1rbDGKeYGFqA6NkIV9tVL SnTwa4HAH7CDY0RJYqKAHw Y7UyKG3qXBOjqLGbPBi3n2 jfsWsvKHQnPGC8x2kbQGfx xfSaOH2xup7ueHi1q2fvmi KrDPCpNAZfpVGTDUKaB2Jm oAvgDb1dlIb5yLybYtliLL Z5Twf6XH4wam63ygk7qUqv DGJtnrirWhH5MPpfGUPftm pjPGw8AHpfQNSftTZ3TKSp qSExO1OpWKVqVI6yavq1YR M6WWxuQHBfKiD6NPWwvMGx ZYKzxJbjSPbtl820FNR5Nd UpGZ9gY3Olv4A3oT1ikWCm LNZddZJgJgWcHZXclj3phY NnQVudy8QpVHA1vyZ0dFEw cRPiKAYxUuE2WPiwHQ6mfg 91QGRoDUH9mo8rcPHixAtk jeOugXSfRIaeD5LtTIEqf3 85CWJlQ1VyYFDtw1O3jiRb OtFbGQWoaZC9dtF4XTRsAY 8djgqay5pgGRluFIggYEGh ggT5suX1KEHeoKFwK6EjuY 2sLGRnKQ0shfrrz5tuQXV5 OYzxBQBbLWG8LwRyYHUmd1 Wvimh3HiXni0QhhUBaGTuk G46bf819MBRuwdWvR3blkJ FpblxwbGFpblxmMFxmczI0 XHFsXGxhbmcxMDMzXGhpY2 cgBlSiRYYfpBdmSZdhx0Ku XGYxXGZzMjJcdGFiXHRhYl g0FULyoMIrODMvJaOuH8wb fdtqKvXHDSOcx7dnY7jzvL KDfFOjV4OiFPbvcpScIMqp TAftBqEzACp3HV22FbYaUV Bhcn19 COMMENT (test code = z5xmtZQqWXMahXZ1VeRgGB 7666) Eug4lbm4MkkMWipFBfRNji lONucrLkyp36sHR0xT14BS 0qPZItWrO2HSLqlpT5Ter7 WOIjXLVooSRsT595s9vba2 wtasCyrAM6gFrhVFYhtzad HdD5QDoyZQVwoaaePVt2GZ acUBFykOZ5VZVddAOaJ6Nw OXSbHH4smjk6MJB1NLruVD UlWcX3ADSphLOdTMXrmMqb WDxgr307MRB7BhCuJILhuv TejRthoL8eFpWcTLUMpeBc e1MvyEjgaeFzl8Q9JPdegi QgFZWvFFveDC9rYVBcpb6= CPT Code(s) (test code v8pebZTfUXXzbSM2KxTdNP = 3357) Sjx9ijz5JlcLHjeACdUTws cBZmzwDcct40kKY1gK87IX 2pIUVqLfH4BRJscuO4Wav0 IVHaIAWzkXTmY304i2rbg3 ivgjSlzWW9sFdfAGYzevem ErZ9IZctLKGymcbeZZj9WL iyWUFqsCT4XLKqdZFfE4Ga IBNzED1wrnc4KCM4LUzxNK LtIjH9HEPddHLpRNShtQsh ZVuvc824ESF9EvReNSWyav PuiFtqaE5nStRkGEW6PAZw NVxwYXJ9 CLINICAL HISTORY (test s8pzoTPeIUEurEO8OsZpPW code = 3356) Xfe2zxv9LbtELtfHUeHQpz nICbosGwen49kDD9nT22XU 2pKVJaSiE2BOWyxfX9Iwk3 RNQrLRSrcGZnF836y0fct9 ojirZluMP1vJzwUUQexrzq HrJ7NYmyUXQulvjpANk7TS ryKZLduQH5JGOswKDgF3Ph VJXoCM2mzww0NNN9PUmqOA NmAmU1SOHdzYErHWOvmUyb BRjmt596DHC1StZaCDFhrn IhsZufhZ8dUfUcNRXVxcMe lZPxIYBdn7BwG1gqcNOsQG S2dZYlzVPgbK== GROSS DESCRIPTION (test y0arsTTpMRGrtTGJNINePw code = 4665601468) wemoWmHLOifBBnP7Njxymm SJhvTM0tCO1tyZgyaBGtbJ GkPJ0CLQEdHvZmQPVgcVOt npXkJdVbEGUwjIXkqDF6SR EdHW6jnrwpCGswPMyqABLg ekD1FFKxzOTyQ5TnHTMaDY 3cakpbWHS3JSlsyS7tecVG BhpbBo4azSEmpPshAxCtOc NoYXJzZXQwXGZuaWwgQXJp IXd0wO3RBvoyJ96wa7D7Eo n8USVsJWJpM6GwYJ4sLMKu iBEkA66ZDcbnDQM8GUJLTf smAGQoLV1Wn6hpGZVodDGn LRZ3SAtcxYIuZGWjQGJiQZ c1TZAwYCejkZLyCF4qkKqn ByzvdTxwq0AxyPHpYDtrQL GaHHXdCKohYHUaZL0DVmTs DMZrSPS8ViPiQNr4YKa0JQ 9RHmByZOTkMWD4OWJwDlKj TUw3IDlbFT3EIHB1WZObYf cqVJQ0PRPtSHPtJGIhQoCx XGYgQXJpYWwgXFxmbCBcXG 1pzVoviZDrmrNXHkRJbD1o m9lwBVngu9OwiFXjKSJokt ANClxlcGljTmVzdERvYzEg DQpcbHRycGFyXGxpbjBccm luMCANClxsdHJjaFxjZjFc ZnMyMCBSZWNlaXZlZCBpbi Ldu3MzWCbyaaDiAPKwnORt IHdpdGggdGhlIHBhdGllbn PuT0F1ruRjHU9dGRQvRAXg U3VxJHJvL89yWZIqcP5dQB YjWL4gVXa0WEKpIBFoUjwr GqfskHO9DAWcCAF3yxkaOj SwzjWbK17ui7nmpGZas5Gp OBB7JTuay8zvqVobLUDfSK i0PsBofhC0jlYbRDUrmTtk JZNsHFe6XoFdyxV4fNKznT GbDxZuK41kliYyRH4fVER1 ezeuCpQzWhTpdS3uJL86SX KyIUfxFAvvLJT6OEJ7LBNf qHOns2wrtz3kOATsDLJhkN WgdZ3nsxVlaqQfdLZifVG8 QMDppB2kaT34adBliuDdUB EdHOL2CURVAO0ulTvaDTAe bGluZSBFUywgcmVzaWRlbn TsmLMcRU5EUERropENMdvy ZjBcZnMyMiANClxwbGFpbl xlcGljTmVzdERvYzBccGxh zU29ROOtzLBmCVD2QC1wNU EcjfwiFMGwWWTbRCD6NNhm cR22hGSjYWWyJPLrvJZdrY 8CAPAyQWL2DLsouL85kSGt NK0FXROiBPV5MPTffBQkTB X9DQ6kzP0TyE== MICROSCOPIC DESCRIPTION s7briLEjWYVvvPS3AwNiCM (test code = 3371) Eti5rxo7EfuYRxdMJmGAui rYRsbvIoke99dCX0pK07JH 7eSAGcAnG7LJGvubH5Nwc8 FQMkONYylHCaK520l2ahz8 lpayMajUM7oVpdUSMipbzg YzJ0HOabTZDurjssFPt9ZT kyRLJpxKN5QZDwlKWoB3Ru MXHwQO1gyyk6SPT8IGrxZC UgRhI5UUBfqGAvIILbkWnf EXant269YOM5LsQaANGaxy PfdPpkhO6tUqKnEXKIQSBj d6WjOLXaQLSsly5= Gross assessment was [facility] performed at (test code [facility], = 2777) Department of Pathology, [address] [place] [address], Technical component was [facility] performed at (test [facility], = 2778) Department of Pathology, [address] [place] [address], Professional component [facility] was performed at ([facility], code = 2779) Department of Pathology, [address] [place] [address], [facility] [id number] 12:40:29 Test Item Value Reference Range Interpretation Comments Case Report (test code Surgical Pathology = 104) Report Case: [id number] Authorizing Provider: Ji Dowell MD Collected: 08/28/2021 11:16 AM Ordering Location: [address] Received: 08/28/2021 04:08 PM Service Pathologist: Ezequiel Palomino MD Specimen: Biopsy, Gastric, random biopsies DIAGNOSIS (test code = u6rlnJBxQFCuj0vvRDSkzW 3220) FuZzEwMzNcZnRuYmpcdWMx IHtccnRmMVxlcGljOTYwMV wtvnGhYSDqpTNsR3Mdlxev JTdeCQ0pHS6qsWfwxAIkqH WmGLCnYqIwp9ydi801tXGk a7cwMXMHfcgfxLu5fHghQ8 8la1F0QiriA37fgVDlRSS0 FJMdNJXqyLLkMRLqNPA3GZ GknMScA9sjRKUzPA6lojuu LBolRHvlLALlrRI7QKBefB OdI2LjTBThXMhdANYwwqz8 QhWjUr2jzTAqwQnlLSeqQD VgANYaHLjgPCMsMtEvZ1KF RWEAJRlcBwQXGF3MXTBVQJ 3EH2y6LLEbcypkoIihBFgh wZ63OnHoAZSFDZAQOTlIBU EQIaDKDKweRE4LTT9BZK5T IOUzWDCCW1BLTOdDBFhoIU 6LD3AVXsNbI6fUH63TPdNL SFKAQvfIUXXeqZMeWK8cKN TIGHCXZvIXHPZBRUeJII2Z ALWLXJGSDVRzsq43HTD7Ym Wbl8K7IJM4QFMuBJUpq1py ZGVmbGFuZzEwMzNcZnRuYm lyeGJjFAPpKsSxo8qtx236 nUZfm2chKSAhCyA0bYVzQZ DycZGgD604WFWyTAzpy9ax v3MoGBWuxAGku3L5ACTYmq nhxHt5gXovP03pk7N5Gegp W9ihNXFuNGZjY7YdYJ9qFY UpFux0AFW4NNK2HJGhKVXw R1LjYD2eUSHslYVbCSc9b1 vydDiwJEXoKCC5r7ukMKbp cfSyEV7zzf8oiKd2x6iqlv WxIYMnBQFhwZUVGISrS8Xw aHwbKq2evJr5lFbpWsdpNO M8Lrl8IT8cnc80ipm0lTzb MKZwwmolRxS1AHnyWKZxbj qnSVr5MJmmAZQspHZ6FFCm nKZnU5OiCQXfTB1ftiy4SK X1YVzzHOPsIuO0HUJgmCWt AASweJlqIMdbk240ISR3Yt KjSA1sM0Nbj2V2pA7xyFGr WIDeqPAeNhEaRMZbvr1qtT ItNDmnt9ZgDHT7fuM0aAYu rTLyJFZrWbJ8DOhyEH3cam 43LHAiOSU9ci7cuSXrqKgp nnUpbJSwJXmwN3WoDPZga7 83WHCjE4PaTVZkv0Y3pqCq YmPdLMCnwMX8ukD1JNEzQF 6zgvrtf3oyXFxeKEubTSSj cuM0kxT5JAEkiCBlY7MqiM 5wPJTrBA4wcmjsy3xwVQP9 OYmoNWCuDNE2ZpEwLSEvq6 Makoq8GqLye3LopXNpEGpa A85lb939FHLruhLuJ9dmiO FpblxwbGFpblxmMFxmczI0 XHFsXGxhbmcxMDMzXGhpY2 bdGnCsWFOkrAstQAmau5Rr XGYxXGZzMjJcdGFiXHRhYl f2VPYmuNImGLPoVyMgM3wj wxdbBhOVNXYem0wmN7lkdH JPiXXhB5YyHLicqtIuNFga VEgvRlAoTYh1GD90GhJkKG Bhcn19 COMMENT (test code = z9vdlDPzOGZufDE3YpLlRE 3357) Leb9iad7VkrIRgxEMqJMeg jLGkteVjov27cFW5xO66RV 9yDXKhIcK2ZKIplnY7Itp5 DEKeMNGtcPRgM414o4ked2 tmxkNkwDK8aImsIGUogvsu ZgQ0VZciUHQqycviWWx0NM blDSGoqBG4NWPeeSSuW2Pg RHQfGI5hclc9ANB2EGfqUW SmHhE1MZQurVThUSEqpMzw QGzuh935KIY4QhLhIVThrj EzfPxmbO2gJfCnUXGUvgAq k0XguJenatQjd8L7TJupla PiBTVzTHvePT6yYMEvje2= CPT Code(s) (test code s0jhgVZmDKXiuZC2FeOxFX = 6926) Zmx5wla6LcoNNevUZrTPnb zQUogrXxpy70nUB9bQ35RE 7fBTQnXwL2HANvtkF4Qsn0 RUXgJAWjhWYlA612e2eab1 txxqQrgBZ8kXkhDCBobvof VrI2DRfaUWEjspttUCm6TM ejZMOydQU0LCRbqEEbK2Bd FFYqQD0wgcq7TEH5GNqfYZ HqViE3GZNzsWKvCNAasFdh IVzdl439DQB1CjBpRGFeaq OsfWjrnT5tNyZtNWT1ADPs NVxwYXJ9 CLINICAL HISTORY (test h3mgeDSpVHVrbMQ4BsZmXE code = 3356) Yqy6xva3UtkKBazIMfHYgz sUCvoiQeqy37vAS1wL78DR 9qEODyNdU5SLUfaqO3Jwt9 BNBuOZXlwVQgB443d9niw9 tphiGbyXP6bPezOUFujlkg DdV7NYapFOXoxxwnJYx2ZY qyKFPuzRV3EORioMOqK7Cr VOTnYB0bdxa0SZX2GYncUK AdSyF6KSWikKOvGNCvnVob HBoqn891ZFR0MiFpMXLnfz TndIzpbT5mXaUaAODMeqPi nQTrERJdi2BxC6qrbNFaRX A2nHGffOVnyP== GROSS DESCRIPTION (test z7iovKDiRFFagPVFMCSxWg code = [id number]) csluPoEVGntOTmU5Ydxrza CRoyEB2aNF1llVxhxXDcwX McLK3URBQzLrHfNUZhsQVy phPfWuXwRIEajJXwqJN8DG AvVA9prlacTHhxWRboICHz wmZ1MXZdiDWaV2DbGDMgFU 4onrgqMOO4AGmfeB7cmaEO UlxdSq2umZSkdEndUyQjVo NoYXJzZXQwXGZuaWwgQXJp MUa5tD8RBeyyH04ov3T8Js z7GOLaENPeO8BuBM9vDDVp bPMcB97VBcfbLIK5JMBJQh cdTIKeWJ2Vo4oyCYXkbWYq YKJ9TAcieRKiXISiBWGdMW s1INClWDcxfYMrSW9csUpa GvhtjTezy8UpaSCpZMsiIS KhULJqWNznEPKwEU9MCjIo YZBzZIK4ClSvJGx4GTb7ON 2UAiWdRRWvAMT9QAVxVvWq KKe1BGyiLP3LBFR9UJKwUw usCFF7ZGYsWNSlLWCqNbAr XGYgQXJpYWwgXFxmbCBcXG 5wmSszjRCtbzPMVaVCuR9s r9ciLEtya3XqkBVeGIXeoi ANClxlcGljTmVzdERvYzEg DQpcbHRycGFyXGxpbjBccm luMCANClxsdHJjaFxjZjFc ZnMyMCBSZWNlaXZlZCBpbi Qhc9HeTSrmslDfDQHcvHCq IHdpdGggdGhlIHBhdGllbn PpF3D3rtYkIR7fDWCzGSHe S4JiINClS02jMAWxhV3vCE FjMS9pSDr1VEMwOTLfJqvc PnmarDS6GTJaCXF6nvqaVk DypkPzX20uh8gtiPWpp4Bs DIG3QHkgr3uuoSmeOFShOW y7SlWnidS0ntVlVVLsgOqb YNTeXZz3LzLgvyP7lGSqjY MrIeVoA69cizDmPR9jEWB8 irfpZyGwZjAakX5eFZ51FR WbHAadVYnyKHY0CZD9HDAc cJKsq7yodl2aJVRhRFHjaF QmtQ1eabWwbnNzcUUerRN1 XGBdaZ2utB53hvVtkuWeZR EiHGT3GTXPBB4iwXkjPEZd bGluZSBFUywgcmVzaWRlbn AtwTMcVW6WVSCpncXQOict ZjBcZnMyMiANClxwbGFpbl xlcGljTmVzdERvYzBccGxh gK16HHIpeXJjRVT4DD2eHY HpsgcyRNRpGMFnONC3ACxf qB26oRGpLGBtKPCdhCNzkR 4HIFYgKFG7DWfplE49eOTm GI6QXAMdQYW8HESzfYOjGP I1OB2ijM8QzN== MICROSCOPIC DESCRIPTION m4wpsKFjAIJqvUQ0YuYqKK (test code = 3371) Slr4tok1JstRDnuWRmUZhn xVGyfeTgmg59zZA4kS82WT 9gNVOlLgC1QDBkhdY1Azj3 AOFsEFDwqQHqU102u7nij7 puwpSkwRA2dAntSDLftlyf IoF5UXlaKXAvrkfyCXo7KJ rcAQVcxDO9UTAxeHErZ2Ri KOMmPJ0tuhi8RAG1MEgiPW AdGkX4VTZpzAHtNFBusZgj OKsis075PZK1CpYnKAYtmd ZzdFbipH6gZdQgYGJXOEJj m4OrXBCgUMMcjx5= Gross assessment was [facility] performed at ([facility], = 2777) Department of Pathology, [address] [place] [id number], Technical component was [facility] performed at ([facility], = 2778) Department of Pathology, [address] [place] [address], Professional component [facility] was performed at ([facility], code = 2779) Department of Pathology, [address] [place] [address], [facility] [id number] 12:40:29 Test Item Value Reference Range Interpretation Comments Case Report (test code Surgical Pathology = 104) Report Case: [id number] Authorizing Provider: Ji Dowell MD Collected: 08/28/2021 11:16 AM Ordering Location: [address] Received: 08/28/2021 04:08 PM Service Pathologist: Ezequiel Palomino MD Specimen: Biopsy, Gastric, random biopsies DIAGNOSIS (test code = [id number] 3220) FuZzEwMzNcZnRuYmpcdWMx IHtccnRmMVxlcGljOTYwMV ijmlJnENIumFFwX6Flqisx VZzmWB4mJY8xrIvbvYIutA GbDYYaJfZch7job740zXYp z7bjXAWKwztcgYy6bFskA8 1qm5T3NbboD34uuLDnFMB9 PEOjUCQqrKReTIGyTRN7CJ VzcPHrT7czDRFpUC2ggzkp NMhbABsbDPUbvRW6THRffR IbQ0ZgTDOkILnlONVkcia6 MkAvOs4afEJdlJwgGNvmWX RbISJgVHfbEIAiBjKkR0YE URKOVKrvKvCXND0FYZLTUY 9RN6t5CFUcclvwlQsmDDvt jQ04XuCgDJWUTWNQTEdGKG CSVcAOGRslGU3JOU0DEQ7G MWLyHWCGK2BAUWiCUQpqYT 3GV6PEQlTbI9sDO87TPoBY SCLXPqcPXZAzjYXhEK7vQO SMHDJDIfZUNQKMRXrKQX0P XRFMZZOBPVVfvz42OIZ7Ca Fle3M1OAG2SGVfUSVnr2ac ZGVmbGFuZzEwMzNcZnRuYm ahiCFvFUYiEsZtd1zff101 hFMxf8euBCFeKeU4gILnOY HccFZxE266VMXgMMucx2ew k5LeCFCgtRTzc0S5SKHNkf lxjJz0sVhgD79pl4H3Mmie H8gvPVGhODJcB2GgOS9fIY CaQqa7TZY4EUG6BOZpCVHb W1HkXO6vQGSnzCAaPCc7n5 ynxPdsWMWsERN8w8rxVOva olFbHX0erj6bmZn2x6ckan XzFNAjEKKshFUIFYSxL2Me tSzrFw5kxGc5yXkzGjwiUO W2Dhq8ZF5zwx20zgl4jTbg PULejzodReU3YDstMXZygq hlOMo3AIyxSCMhkYY6OLZi eHBxT4CkUCVwDL9kojg8PT F8VAvgTRNlGyX3MEWuxGZn XERudXjkJAgng995EKH0Uf QsYH1tV9Udw6W2jT9aeEKw YZEdbZGsNjXlALYxgc3azL CvHZxht3FvVWD5jpR3gYAe oHEzUAIiSiG1TSeyHY1fnt 36FMHyFSX5nx3yyHXjbJhx jjMpbBNrVNfxM9PgNKVoc4 36WTTmV8CxVZFdq4V2mhSa UiLxNXOyrLN2zxU9WITvCF 5bpoucg0cvYPuyZZjcJAXy bjL7alQ3AENutLSeH1SfkZ 2mJLJhRP4xmncdp2goFHE6 WUqiOEMzYIL8TsJnNXGnz9 Zkpif2NyAhl4JwvJPxGSyq Q95zq099NFUfiwQnD0cztY FpblxwbGFpblxmMFxmczI0 XHFsXGxhbmcxMDMzXGhpY2 lvKgXaBIBtpPxoMBhlt5Lb XGYxXGZzMjJcdGFiXHRhYl h7NCCjoDDcMGBrNoSwQ4bj jqzfOfZBFWYvi7zkT8invO UQeVDzC6JwSJpjxbSqERzp ZVbfZzVsTJm0QG24LdBbZS Bhcn19 COMMENT (test code = y6ocvDNhXABgpNF7AqDlGP 2000) Xst0bwy8PxzMXnySXsGRzo nFFznmXvbz61dQY5eR99DT 7oMULzLgJ6MBPyvrA0Qmm9 UUZaHFCoqDHpZ871a0qar3 nmplSsoNN7uGrmVZVneahw IkJ2YFryPPQumghgNSk2QV liVUUoiXU2BRKtcDOnC2Kx REFlIJ1swmi3QRP2CRerBZ AfHyL3SLJybAMmFVIsjMvp QSfll730HAX8QsAiPCHkst LlgRhcgW8cFwDqJNDMnkSt r8YkgGwhhmZhl9J0AGeqby OuPQTqZQjpIO6mDNPdtu7= CPT Code(s) (test code f7uswRRaOIMknUQ9McUcWM = 3357) Hkm4wdg4IltZAxrGLpZUor pEFpkyGhho17bXE4wO58RV 0hJGShYvD9THVbtxS1Lge7 ZENmTDHqlOYqR014t9uiq6 psblNfyFX5vWqzXNOwxbif FfK1IGhcGFJhkbpaUNl7YE xrLFBnhHI9ZIXdaAXxK1Cv VNYpBU0uwhq0HAI4HWsgIL VbGuY3WUAhrXOsJJPfvWad FVceq067RFL6DvYaEOBbdm TeyIwlaF8kGxAdBAD1TXPd NVxwYXJ9 CLINICAL HISTORY (test g5wrgOYrEAJqiJW2HcPkFR code = 3356) Hkl4xcx1VbgRBzlFAkGZqo zSUgfeArfq25uWT1lL71AP 2cCRRoIhK2JPKzotV7Kli6 WHWkARZujBVlT433p6wwi2 ttbdEouVE4pDlpHEIesdpl YvW2MIzkKCIhupemZAb7AW kxFCNqnIS0GUIdkHXbZ7Zx KLNuFI7ipsm4NYQ5KFoxCD NjNwV7MHPrmRNxKEJpcZcc JGkmp924NIF8DvQrJXZcoi CtpJwwrC8kEfHkTPFOtzAh gAGzRIOte7RtG1utjAUpFW L5lVWnsCLmaD== GROSS DESCRIPTION (test b9jzmDFfVYWafOFGNPXeIn code = [id number]) iougBsBUHhyYUaH9Dnnzgs TIgvNW6dND8qrPociQEuiJ KeFW4PIMGlXaCeHLMfzFKe spQhFxYwNEFrgVRebPA5UJ KkEH6qwuzzKAmlEIflQKJr juZ3SKOjqHDuQ8GxPXYbZA 9yimnkZNP6MTxfxX9mjdYL LjsnGr5odJClvUhcEjQoPx NoYXJzZXQwXGZuaWwgQXJp LKz9aN5HCqkqE36ol9H8In a2LTBxXDOqH3XsYJ9rEHVv fZJaS77QDskjTTT1TJSOPm abKRQeVD8Kr2qqYUGnnTCh SUR2JWebpQPqEZVkBFOhNZ l6OIYpXDhmvRJzUO8khMrw BvgiuFtyl6BosOWoQWjbIQ FhTMTsQXxkMMXfFN6EFnEi KCDoYAG8KpCiQHb4YSj2FG 8SYyCxLRXnEOF7KWLgGoEh SBe8XFzfZZ3GPLI6RGVxZe zaFOO1ZGYtRZIqROEqIoCl XGYgQXJpYWwgXFxmbCBcXG 0syLcxrZGjpbNKYxBPvX3m z4suOZuts4OtpGCnKWNbnf ANClxlcGljTmVzdERvYzEg DQpcbHRycGFyXGxpbjBccm luMCANClxsdHJjaFxjZjFc ZnMyMCBSZWNlaXZlZCBpbi Rza6GbSAzarpZnXISvjKPt IHdpdGggdGhlIHBhdGllbn RpI6D3diCcDY5aRFTpGKMe W9YhRPQpQ36gRSXlgK6dUZ NtAZ0eAFm4YAKcPHLoBeru UxtjvLJ7FRIuQXX9oviqUm LxdgVoX11ak8scmPRgt6Ng WXL1KZgkg2shiSwzDKNjSU d0RiEabcY9ngWfJBWgcTcm QKBuDVh3LjTjejI7hYEprB PaPfXoM22ebaLiNI5hHDD8 lskuEqCzPuVthE5uFH56TB ZkTHxnOGwxVPM1KPM3SZAm uMPcl1ugmf7gUHAaMTWlwB YqdA1ljgJycaIurKRjtAJ7 SKXbcG2kkY07ulVwrlGbAU PjIYP8BWRICJ6wjPffPGVs bGluZSBFUywgcmVzaWRlbn WbxAEdTI6TQBVsezMRVekr ZjBcZnMyMiANClxwbGFpbl xlcGljTmVzdERvYzBccGxh aC38HXVmjPRmAHG9ZN2iSC TvazpnOPUmYKHsSAT9YBza gZ70aXPyIYWzVCSxoZPgsH 9WBLQpVFK9WQdaeQ48mSWe CS9NXROqBMR0DYXacGVsWD H0CF5qiX7IqF== MICROSCOPIC DESCRIPTION g7nidLZwZBDukHY4KsWeNT (test code = 3371) Bro3qej2WavMMdxTGqNMsp vJAszcNqpq31zCA5tH85XQ 3wGQOvBkR8KBZaruF7Lyp5 IVBpBEVrdBXtZ904m2bit2 memuXvsXM4eAmiISZaqoxu EbI2KRhxRIYyxqllUUc5EB njXKDqrSU9MMOceNCsL7Vv STMbOZ4nwnn3WLD6ENjmEF FlUiO3ADIyjZTyENTkkIzi ZDzon967YGF0YzUmWYEfjz BrdYqsoH2eYyIdJATFBKXq x1KcYDToCNJwga9= Gross assessment was [facility] performed at (test code [facility], = 2777) Department of Pathology, [address] [place] [address], [place] [address], Technical component was [facility] performed at ([facility], = 2778) Department of Pathology, [address] [place] [id number], Professional component [facility] was performed at ([facility], code = 2779) Department of Pathology, [address] [place] [id number], [facility] [id number] 12:40:29 Test Item Value Reference Range Interpretation Comments Case Report (test code Surgical Pathology = 104) Report Case: [id number] Authorizing Provider: Ji Dowell MD Collected: 08/28/2021 11:16 AM Ordering Location: [address] Received: 08/28/2021 04:08 PM Service Pathologist: Ezequiel Palomino MD Specimen: Biopsy, Gastric, random biopsies DIAGNOSIS (test code = [id number] 3220) FuZzEwMzNcZnRuYmpcdWMx IHtccnRmMVxlcGljOTYwMV xlxoJaAFYtiFHiY3Nainsh RZkwTU7wOJ4cmRukpLSzqQ JdGDCkOwGsk3diy528wVGp f0eoULVRvpetlYr5vCfvE9 2vs6G2XlosE37sjQMeJDU1 FNKhJSOsrXSzPDUyIPR2UR MezWRzE6yuFZWtQP9lzyax QCmwTPluNLMezRO6RANsjC AdQ6NbZCTwTDljIIIwecb1 FjVcMn5lcZRkhTbaBJbmGG JyXJOaQNxlBBAgEmHcR6EF SQHDJUaiSiAZJT8SYOBJQG 2RI8l7IEAzjmhouQrhVBie wJ74ZaFtDIEHEGXAMQuASP PGBsZREIreSX5BBA0GMR7C TDWpCLYKR9XPNAgOXKtaMS 0SY1ZVRaXcF3kEA78BPmLF SSNZDqtMMMAwvUTwOE9zAW BFALUSKePNTPHMJOaQNW9Z IMJLHVRCYQMtbr04BSV7Iz Lih8V6YLR7QKDbRUBci3mg ZGVmbGFuZzEwMzNcZnRuYm kleTOjQEOzOdYyb0mkw177 hCYrt9xfDRPlCrS4wSFcWH ElgALrN264LCAdXTmet7ex x3YpYXAeqQKub3C8WWWJqz bmoLt5vHoeZ10qa9U4Ucxj I2jiXXXjLAZwP9XqBC3lCE AzLgu1LNW6RSJ9CFTfWELc L0ExQM2xBUTriDUyQGx2z6 cldBcjVAHjHWE5t0eqVZlz gfGpEN9bnn1wfEm5k0xqev MgAEByIRRtfGWVVVSpW2Xu aMiwZf5riNo4dVflQpioUZ Y6Xmo3TO7uzc92lev1hLzl LYMoionqFuK2DYwiQDTwcn cdVYf6KPpwKPIbtDN4ATJv kTCsV0KrUXYqMV4mghp4PW X2OAyuRTXkNzW7MSIniPDo AFYhhRquPYlzj659ONJ1Rh YcLO6zB4Vjh9G5yS0diFQl NOMdwFNnAcNvLMOcpi8frI KjBMktz2McIHL3qlV6kRJk qTMfOSMoYgY3LZjuJN1ocj 94QKRwXDE9ke9bgDFmvGyg lfUlaEVdQNtoT4TzIHTuo8 27ARDbU0DqMZKnd6X8ldYi QiAfCCVocWR9upL5BOUeCS 1hdjhip9blRGeqNIlcKALh ijO9nqI0ECVxqLUtO9OfkU 8mXOYvJW2eosrap8xdHUV7 DPpuEAQcNVX7BrWaIUDtd2 Memri8EcYzk2NmeSFeMRpk S27gg358KGUuqqKuQ8rbeE FpblxwbGFpblxmMFxmczI0 XHFsXGxhbmcxMDMzXGhpY2 uaUeGgCMGcfJzpXMtca6Mv XGYxXGZzMjJcdGFiXHRhYl g8SDWdaTUrYNCzMwEsL2wr tjbhKwQLFHAip9djL5jkiZ OWfZTgK8TjZMyxilWfJZfd MLxlDpDyTDo0HT45HaVcAE Bhcn19 COMMENT (test code = r4mchRMfUXGncLJ5YoUxWS 9468) Kbn8zkl8ZvdUXpqFNqQEzt rECqpmGxmz86lVG6mA24TT 3mKPNwKmJ8LMZebxF7Rmy5 DIXiFTXyaTCrL338q5lhq4 wussHbzVG7lCyzEHDtremq FmI5FSmyJIElqfkgPLn0FU rnLNUplTD5NIAzqPTpS1Eb RQTyZE0ywax0BYB4MCzsLP HyGnU3XCExiDIzDFMspSjh FTwfd250JPB7XnItLCTlvr AooJwvwD6jLnVfHFKYnrLb u8QqgGfhbbYlr5P2RWemxh CqWOOrYZdbEP7pVDVypg7= CPT Code(s) (test code y3pswRAiNEUfyVB4NlKiZN = 5868) Lks9mvi6ClyQKpeNFoGKpt vPFqjdBlvq14tSG7vT88TU 1vTUAnJiU8HTZkicO8Vxl4 DVDbMZGrbHZbY876i6upi8 jpxcBujRS8eEhpBQDmbaft VdA9NLoyCNNwwhpsVZa0FB wcSHNtsBR0BVKbrBKmX9Ma JVTeGH7lrcx6QUM4AYqhAB ZfCzO1BLUmsSTeEDAyhVvn GAylm825RZR8ViSoUOZibn LvbWajfV0mSgZlHZW3HFJf NVxwYXJ9 CLINICAL HISTORY (test t7gmpGKiUCErqOB5YmUoJS code = 3356) Jpa4voz9EecIUjqVShBXqi oPHwibWcbu65gFG1kX53FF 4xCYYdMkZ5KVXazbW7Ngz6 QYAfEYLtjDWfM144g6rkx5 moieAmdWT0aMudSPDzwnpe OjH2KOyxJGGfhibpNOw3HW wuWASlyEM7WUBqpCBeB3Pz VDHoQN7gwsq8TYY7CTofZD ZoPiY6OIEmfXTlZUUgwTnl XLwyb551SIW7JcMgYFChzi InsMeueW7aVmNwZXDRviZf bMLkJEYoi3AzR6kypADkIG A8lJBgcORbdA== GROSS DESCRIPTION (test j9kvjLKkLOWgtMDKEVEfFl code = 6722243043) lgwuSaHHElvCWeT8Ggithf SDygPM3oUM1qpAgucSCkpU HpCI5MZFUxFkNuUHKwqHFs swNcBpGcTBSfwJIywZP5EW FoFL4agtdnELqhIQffUHFc yxR4IJVhwSFrY3XwFFJdGJ 4laxsnPTG1XZuetJ6pusRS JvvcPk1whJBplHmfYnBbFv NoYXJzZXQwXGZuaWwgQXJp EBe5mA2PNtnrW29ae3C4Au j1DBXeRUMjX3WuTE2fLWZk tHOdD24ZKzegGDZ3AFQCNu smPIVpZJ3Kd0erXFRbwPPr UVS2ZFoizNCuXIUsHFTkCH n6FYKqCIxjsUGaAZ8xwPcz DuuidCmnl8OywGTtCYrxBL JmPKUoTIvaARPoWG9YKxRg KDZeKEQ2UqLaPEq3ZKj3PE 1WJfNkIWMmOJY3KNHwWsSx UCf2ILkjOM4LLXW9YBCnLe hiMKT2CJPlDOLkCSMeRyOz XGYgQXJpYWwgXFxmbCBcXG 6tyBprmIZclaIWFvSEgL3a s6duRPnew4TpfLVlBGQjhk ANClxlcGljTmVzdERvYzEg DQpcbHRycGFyXGxpbjBccm luMCANClxsdHJjaFxjZjFc ZnMyMCBSZWNlaXZlZCBpbi Gxl0CfYWiyuoRaOONfeGLo IHdpdGggdGhlIHBhdGllbn TgL1A6rbGtTG6lMWPiKOVa B1WuVPEbR47cHMXelB0nUW NxXZ6uGSw0CHAbRSYhGteb SvfdqTW7ITLuGTS1amhbMr RthtVgU72op8cogDCnx5Cf IIA6BRcpv0nswNyzYWPeJB y3TzWesvC3xyUgHWXcvEcy UIIgMUx6IzHjjfG1fSKflB AwMrMbK42hgxNcGV6tEQN2 bprcCsNeXzMomZ8vCZ45PF CuREudAEwsDOH2BDY1HWMm hGIic0ilzk1kWGQwEVUnhT AcxF7nhoOrlqNycSByeXQ7 NWYhjV8qpL14ldSfqlCqAR BeDHU0TGFBON8ydHnzDEMt bGluZSBFUywgcmVzaWRlbn GiuVScJK4UGRKqvoZHJein ZjBcZnMyMiANClxwbGFpbl xlcGljTmVzdERvYzBccGxh dG43TPZyhDCiYSG4SS9aUR BxrhbzCPYeZYYvIPT4BDkf xW22cZYlRYUoBYMgqFUhbF 5COFSqLPU3PMyocH44oXZp SF1IZEAzCMH3AERqhUUeWN B1KS0boK9NmH== MICROSCOPIC DESCRIPTION b1ptuMInUPJbgZJ7IvZqKW (test code = 3371) Pof9ucu4ZhqLAwsYStXWdy oIWrozJdqs70aJY7oS02EC 8dRFBkOtH8KSVsuuH7Pus9 OMEhLQFpuOJxA803r0dvl4 nhhrItpZC2nTavTHZztzoo SuR9UNdwNVViqwoyJVx8AL vvOSHimNK6HRMnoQKxL1Xs ZASdWK2vilh7DJD7AMyiFN TcCuN7EJSxqSNrMWXgdSot YHhmi123ZAS1LyCqSKPiax LhwOpxkR2sShKhLZVNTOVe v5FaVEJwMVCsqx9= Gross assessment was [facility] performed at ([facility], = 2777) Department of Pathology, [address] [place] [address], Technical component was [facility] performed at ([facility], = 2778) Department of Pathology, [address] [place], [place] [id number], Professional component [facility] was performed at ([facility], code = 2779) Department of Pathology, [address] [place] [address], [facility] [id number] 12:40:29Surgical Pathology Report Case: [id number] Authorizing Provider: Ji Dowell MD Collected:08/28/2021 11:16 AM Ordering Location: [address] Received: 08/28/2021 04:08 PM ServicePathologist: Ezequiel Palomino MD Specimen: Biopsy, Gastric, random biopsies STOMACH, RANDOM, BIOPSY:- REACTIVE ANTRAL AND OXYNTIC MUCOSA WITH INACTIVE CHRONIC GASTRITIS- HELICOBACTER IS NOT SEEN Signing Pathologist Direct Phone Line: [phone] signed by Ezequiel Palomino MD on 08/29/2021 at 12:40 PMEndoscopy report was reviewed. [id number], unspecified typeA. Biopsy, Gastric.Received in formalin labeled with the patient's name, medical record number and "biopsy, gastric" and consists of 5 yellow-pinedo to red-pinedo tissue fragments measuring 0.3 to 0.5 cm in greatest dimension. The specimen is submitted in toto in cassette A1.ES, residentPerformed [facility], Departmentof Pathology, [address] [place] [address], [facility], [address] [place] [address], [facility], Department of Pathology, [address] [place] [address], RIXBUYOJJL [facility] HEMATOCRIT 2021-08-29 08:28:24 Test Item Value Reference Range Interpretation Comments HEMOGLOBIN (BEAKER) (test code = 7.0 GM/DL 13.7-17.5 L 410) HEMATOCRIT (BEAKER) (test code = 21.8 % 40.1-51.0 L 411) Roller Stainer ID - 6000SARS-CoV2/RT-PCR (Asymptomatic ONLY)2021-08-29 01:40:55 Test Item Value Reference Range Interpretation Comments SARS-COV2/RT-PCR (test Negative Negative code = 28614-5) AJ (test code = AJ) Negative result [...] the Act. Testing was performed using the [employer] SARS-CoV-2 assay. Fact Sheet for Healthcare Providers:https://www.aislinn huynhblanco/antonio/RT SARS-CoV-2 HCP Fact Sheet 51-319838.pdf Fact Sheet for Healthcare Patients:https://www.[employer]/antonio/RT SARS-CoV-2 Patient Fact Sheet EN 51-228434X5.pdf Lab Interpretation Normal (test code = 56143-3) [facility]2021-08-29 01:40:55 Test Item Value Reference Range Interpretation Comments SARS-COV2/RT-PCR (test Negative Negative code = 05551-9) AJ (test code = AJ) Negative result [...] the Act. Testing was performed using the [employer] SARS-CoV-2 assay. Fact Sheet for Healthcare Providers:https://www.aislinn ayon/antonio/RT SARS-CoV-2 HCP Fact Sheet 51-760926.pdf Fact Sheet for Healthcare Patients:https://www.placido hughesFood Quality Sensor International/antonio/RT SARS-CoV-2 Patient Fact Sheet EN 51-333320U3.pdf Lab Interpretation Normal (test code = 27493-0) [facility]As[facility]omatic ONLY)2021-08-29 01:40:55 Test Item Value Reference Range Interpretation Comments SARS-COV2/RT-PCR (test Negative Negative code = 84120-4) AJ (test code = AJ) Negative result [...] the Act. Testing was performed using the [employer] SARS-CoV-2 assay. Fact Sheet for Healthcare Providers:https://www.aislinn ayon/antonio/RT SARS-CoV-2 HCP Fact Sheet 51-385074.pdf Fact Sheet for Healthcare Patients:https://www.placido hughesFood Quality Sensor International/antonio/RT SARS-CoV-2 Patient Fact Sheet EN 51-655400N9.pdf Lab Interpretation Normal (test code = 37226-6) [facility]2021-08-29 01:40:55 Test Item Value Reference Range Interpretation Comments SARS-COV2/RT-PCR (test Negative Negative code = 51658-7) AJ (test code = AJ) Negative result [...] the Act. Testing was performed using the [employer] SARS-CoV-2 assay. Fact Sheet for Healthcare Providers:https://www.aislinn ayon/antonio/RT SARS-CoV-2 HCP Fact Sheet 51-391718.pdf Fact Sheet for Healthcare Patients:https://www.placido cardosoPharmiWeb Solutions/antonio/RT SARS-CoV-2 Patient Fact Sheet EN 51-296558E7.pdf Lab Interpretation Normal (test code = 09701-3) [facility])2021-08-29 01:40:55 Test Item Value Reference Range Interpretation Comments SARS-COV2/RT-PCR (test code = Negative Negative 8790551) Negative result for this test determines that [...] false negatives.The limit of detection for this assayis 100 copies/mL.This SARS-CoV-2 test is a real-time [...] Section 564(g) of the Act.Testing was performed usingthe [employer] SARS-CoV-2 assay.Fact Sheet for Healthcare Providers:https://www.[employer]/antonio/RT SARS-CoV-2 HCP Fact Sheet 51-701141.pdfFact Sheet for Healthcare Patients:https://www.[employer]/antonio/RT SARS-CoV-2 Patient Fact Sheet EN 51-911883E7.pdfPTH, [id number] 01:17:15 Test Item Value Reference Range Interpretation Comments PARATHYROID HORMONE INTACT 478.9 pg/mL 8.5-72.5 H (BEAKER) (test code = 577) Roller Stainer ID - TAVIA MHEMOGLOBIN AND [id number] 00:56:51 Test Item Value Reference Range Interpretation Comments HEMOGLOBIN (BEAKER) (test code = 7.3 GM/DL 13.7-17.5 L 410) HEMATOCRIT (BEAKER) (test code = 23.0 % 40.1-51.0 L 411) Roller Stainer ID - 6000HEPATITIS B SURFACE [id number] 19:59:22 Test Item Value Reference Range Interpretation Comments HEPATITIS B SURFACE ANTIGEN (2) Nonreactive Nonreactive (BEAKER) (test code = 2585) Specimen is considered negative for HBsAg.HEMOGLOBIN AND [id number] 18:47:46 Test Item Value Reference Range Interpretation Comments HEMOGLOBIN (BEAKER) (test code = 7.7 GM/DL 13.7-17.5 L 410) HEMATOCRIT (BEAKER) (test code = 25.1 % 40.1-51.0 L 411) Roller Stainer ID - [id number] 10:35:30 Test Item Value Reference Range Interpretation Comments PHOSPHORUS (BEAKER) (test code = 6.0 mg/dL 2.3-4.7 H 604) Roller Stainer ID Savanah SQUIRES [id number] 03:09:01 Test Item Value Reference Range Interpretation Comments FERRITIN (BEAKER) (test code = 114.32 ng/mL 5.00-275.00 361) Roller Stainer ID Savanah SQUIRES MVITAMIN B12 AND [id number] 03:09:01 Test Item Value Reference Range Interpretation Comments VITAMIN B12 933 pg/mL 213-816 H (BEAKER) (test code = 774) FOLATE (BEAKER) 14.50 ng/mL See_Comment [Automated message] (test code = 362) The system which generated this result transmitted ref erence range: >=7.00. The reference range was not used to interpr et this result as normal/abnormal . Roller Stainer ID - TAVIA MBASIC METABOLIC [id number] 02:39:25 Test Item Value Reference Range Interpretation [...] S NOT APPLICABLE FOR DIALYSIS PATIEN TS. Roller Stainer ID - TAVIA EFFIE, TIBC, % SAT. (WITHOUT FERRITIN)2021-08-28 02:38:43 Test Item Value Reference Range Interpretation Comments IRON (BEAKER) (test code = 547) 53.0 ug/dL 40.0-160.0 TOTAL IRON BINDING CAPACITY 301 ug/dL 250-450 (BEAKER) (test code = 769) IRON % SATURATION (2) (BEAKER) 18 % 20-55 L (test code = 2590) Roller Stainer BO SQUIRES MCBC W/PLT COUNT & AUTO [id number] 02:36:15 Test Item Value Reference Range Interpretation [...] (BEAKER) (test code = 2801) HEMOGLOBIN AND [id number] 02:17:20 Test Item Value Reference Range Interpretation Comments HEMOGLOBIN (BEAKER) (test code = 6.2 GM/DL 13.7-17.5 L 410) HEMATOCRIT (BEAKER) (test code = 20.0 % 40.1-51.0 L 411) HIGH SENSITIVITY TROPONIN [id number] 18:35:46 Test Item Value Reference Range Interpretation Comments HIGH SENSITIVITY 42 pg/ml See_Comment H [Automated message] TROPONIN I (test code = The system which 1009300) generated this result transmitted ref erence range: <=35. Th e reference range was not used to int erpret this result as normal/abnormal . Roller Stainer ID - BSThe PIT LABORER STAT High Sensitivity Troponin-I results should be used in conjunctionwith other diagnostic information such as ECG, clinical observations and information, and patient symptoms to aid in the diagnosis of TN.HIGH SENSITIVITY TROPONIN [id number] 14:24:44 Test Item Value Reference Range Interpretation Comments HIGH SENSITIVITY 42 pg/ml See_Comment H [Automated message] TROPONIN I (test code = The system which 8070444) generated this result transmitted ref erence range: <=35. Th e reference range was not used to int erpret this result as normal/abnormal . Roller Stainer ID - BSThe PIT LABORER STAT High Sensitivity Troponin-I results should be used in conjunctionwith other diagnostic information such as ECG, clinical observations and information, and patient symptoms to aid in the diagnosis of TN.BASIC METABOLIC [id number] 14:18:04 Test Item Value Reference Range Interpretation [...] S NOT APPLICABLE FOR DIALYSIS PATIEN TS. Roller Stainer ID - BSPROTHROMBIN TIME/[id number] 14:09:01 Test Item Value Reference Range Interpretation Comments PROTIME (BEAKER) 15.5 seconds 11.9-14.2 H (test code = 759) INR (BEAKER) (test 1.25 See_Comment [Automat ed message] code = 370) The system [employer] generated this result transmitted ref erence range: <=5.90. The reference range was not used to int erpret this result as normal/abnormal . RECOMMENDED COUMADIN/WARFARIN INR THERAPY RANGESSTANDARD DOSE: 2.0 - 3.0 Includes: PROPHYLAXIS for venous thrombosis, systemic embolization; TREATMENT for venous thrombosis and/or pulmonary embolus.HIGH RISK: Target INR is 2.5-3.5 for patients with mechanical heart valves.CBC W/PLT COUNT & AUTO [id number] 14:06:24 Test Item Value Reference Range Interpretation [...] = 2801) Type and Screen - ONCE [id number] 13:36:51 Test Item Value Reference Range Interpretation Comments ABO & RH (test code B Positive Performe d at [facility] = 20) [facility] [address] [place], [place] [address]Toll Free: [phone] A No. [id number] IAT (test code = Negative Performed a t [facility] 1185) [facility] [place], [place] [address]Toll Free: [phone] A No. [id number] [facility] Only)2021-08-27 13:35:31 Test Item Value Reference Range Interpretation Comments ABO & RH (test code B Positive Performe d at [facility] = 20) [facility] [address] [place] [address]Onxf Free: [phone] A No. [id number] [facility]AL [id number] 11:54:59 Test Item Value Reference Range Interpretation Comments NT-proBNP (test code 624058 pg/mL See_Comment H [Autom ated = 2531710074) message] The system which generated this result transmitted reference range : <=125. The reference range was not used to interpret this result as normal/abnormal . AJ (test code = AJ) Biotin has been reported to cause a negative bias, interpret results relative to patient's use of biotin. Lab Interpretation Abnormal (test code = 42071-9) [facility] MET[facility]OLIC PAN[facility] (10383)2021-08-27 11:47:50 Test Item Value Reference Range Interpretation Comments NA (test code = 135 mmol/L 135-145 6898132204) K (test code = 5.0 mmol/L 3.5-5.0 2972233056) CL (test code = 97 mmol/L 98-108 L 9801719579) CO2 TOTAL (test code = 26 mmol/L 23-31 7504103436) AGAP (test code = 2-16 3459574564) BUN (test code = 52 mg/dL 7-23 H 3051036666) GLUCOSE (test code = 106 mg/dL 70-110 4331749095) CREATININE (test code = 7.30 mg/dL 0.60-1.25 H 8740221283) TOTAL BILI (test code = 0.4 mg/dL 0.1-1.6 4722120906) CALCIUM (test code = 7.8 mg/dL 8.6-10.6 L 9331154410) T PROTEIN (test code = 6.5 g/dL 6.3-8.2 5201868503) ALBUMIN (test code = 3.5 g/dL 3.5-5.0 0113271443) ALK PHOS (test code = 44 U/L 34-122 0621121481) ALTv (test code = 17 U/L 5-50 1742-6) AST(SGOT) (test code = 27 U/L 13-40 5501417736) eGFR (test code = mL/min/1.73m2 8338304773) AJ (test code = AJ) Association of [...] tests). Lab Interpretation Abnormal (test code = 47978-8) [facility] [id number] 11:30:28 Test Item Value Reference Interpretation Comments Range TROPONIN I (test 0.060 ng/mL See_Comment H [Automated code = 6891449894) message] The system which generated this result [...] biotin. Lab Interpretation Abnormal (test code = 66432-3) [facility] THRMPLAS [id number] 11:18:43 Test Item Value Reference Range Interpretation Comments APTT Patient (test See_Comment [Automat ed code = 3173-2) message] The system which generated this result transmitted reference range : 23 - 38 Seconds . The reference range was not used to interpr et this result as normal/abnormal . AJ (test code = AJ) The [facility] patient population mean normal value for aPTT is 30 seconds. Lab Interpretation Normal (test code = 40459-7) [facility]2022-[facility]-21 11:18:28 Test Item Value Reference Range Interpretation Comments LIPASE (test code = 3099112290) 124 U/L 0-220 Lab Interpretation (test code = Normal 73897-8) [facility] Arlington[facility]HROMBIN TIME / [id number] 11:16:43 Test Item Value Reference Range Interpretation [...] tions. Lab Interpretation (test Normal code = 12414-4) [facility] Arlington[facility] WITH [id number] 11:08:43 Test Item Value Reference Range Interpretation [...] RDW-SD (test code = 48.9 fL 38.5-51.6 38605-4) RDW-CV (test code = 16.0 % 12.1-15.4 H 788-0) PLT (test code = See_Comment [Automated 777-3) message] The sy stem which generated this result transmitted reference range : 150 - 328 10*3/ ?L. The reference r yazan was not used to interpret this result as normal/abnormal . MPV (test code = 11.2 fL 9.8-13.0 75861-0) NRBC/100 WBC (test See_Comment [Automat ed code = 0155908920) message] The system which generated this result transmitted reference range : 0.0 - 10.0 /100 WBCs. The refer ence range was not u sed to interpret th is result as normal/abnormal . NRBC x10^3 (test code <0.01 See_Comment [Auto mated = 5463102578) message] The s ystem which generated this result transmitted reference range : 10*3/?L. The reference range was not used to interpret this result as normal/abnormal . GRAN MAT (NEUT) % 76.2 % (test code = 770-8) IMM GRAN % (test code 0.40 % = 2975941270) LYMPH % (test code = 10.1 % 736-9) MONO % (test code = 11.7 % 5905-5) EOS % (test code = 1.3 % 713-8) BASO % (test code = 0.3 % 706-2) GRAN MAT x10^3(ANC) 5.19 10*3/uL 1.99-6.95 (test code = 4479938510) IMM GRAN x10^3 (test 0.03 10*3/uL 0.00-0.06 code = 0730240002) LYMPH x10^3 (test code 0.69 10*3/uL 1.09-3.23 L = 731-0) MONO x10^3 (test code 0.80 10*3/uL 0.36-1.02 = 742-7) EOS x10^3 (test code = 0.09 10*3/uL 0.06-0.53 711-2) BASO x10^3 (test code <0.03 0.01-0.09 = 704-7) Lab Interpretation Abnormal (test code = 14467-8) [facility] [id number] 14:16:00Surgical Pathology Report Case: [id number] Authorizing Provider: Mack Mckoy, Collected: 07/25/2020 12:37 PM Ordering Location: [address] Received: 07/25/2020 03:25 PM Service Pathologist: Zaida Newsome MD Specimens: A) - Duodenum, random biopsy B) - Biopsy, Gastric, random biopsy A. DUODENUM , BIOPSY- GASTRIC METAPLASIA WITH REACTIVE CHANGES (SEE COMMENT)- MILD VILLOUSBLUNTING- DYSPLASIA OR MALIGNANCY NOT SEENB. STOMACH, RANDOM BIOPSY- CHRONIC INACTIVE GASTRITIS, MINIMAL-MILD- NO INTESTINAL METAPLASIA, DYSPLASIA OR CARCINOMA IDENTIIFIED- NO HELICOBACTER PYLORI LIKE ORGANISMS IDENTIFIED ON WARTHIN STARRY STAIN Signing Pathologist Direct Phone Line: [phone] onically signed by Zaida Newsome MD on 07/30/2020 at 2:16 PMIncreased intraepithelial lymphocytes, luminal parasites, aggregates of foamy macrophages in lamina propria, dysplasia or malignancy are notseen. Gastric metaplasia and reactive changes and mild villous blunting is seen and may be from peptic duodenitis or mucosal injury. Clinical correlation is recommended.86702 x 2, 15924dhytiqB. DuodenumB. GastricA. Received in formalin labeled the patient's name, accession number and "duodenum" are 2 pinedo-pink tissue fragments measuring up to 0.2 cm in greatest dimension which are filtered and submitted in toto in A1.B. Received in formalin labeled the patient's name, accession number and "gastric biopsy" are 3 pinedo-pink tissue fragments measuring up to 0.3 cm in greatest dimension which are filteredand submitted in toto in B1.CARLA Weaver, HT (ASCP)Performed.The interpretation of this case included the use of immunohistochemistry or special stains.Control Slides Examined: In-house known positive controls were evaluated along with the test tissue. These control slides run alongside of the patients sample show appropriate staining. Internal positive and negative controls when available areevaluated Immunohistochemistry technical testing was performed at [facility], Pathology Laboratory where it was developed and its performance characteristics were determined. It has not been cleared or approved by the U.S. Food and Drug Administration. The FDA has determined thatsuch clearance or approval is not necessary. The test is used for clinical purposes. It should not be regarded as investigational or for research. This laboratory is certified under the Clinical Laboratory Improvement Amendments of 1988 (CLIA-88) as qualified to perform high complexity clinical laboratory testing.[facility], Department of Pathology, [address] [place] [id number], [facility], [address] [place] [id number], [facility], [facility], [address] [place] [id number], SUXIPBGCA B SURFACE [id number] 06:06:00 Test Item Value Reference Range Interpretation Comments HEPATITIS B SURFACE ANTIGEN (2) Nonreactive Nonreactive (BEAKER) (test code = 2585) Specimen is considered negative for HBsAg.BASIC METABOLIC [id number] 05:21:00 Test Item Value Reference Range Interpretation [...] S NOT APPLICABLE FOR DIALYSIS PATIEN TS. Roller Stainer ID - PIAYA LCBC W/PLT COUNT & AUTO [id number] 04:30:00 Test Item Value Reference Range Interpretation [...] 0-1 PERCENT (BEAKER) (test code = 2801) [id number] 08:03:00 Test Item Value Reference Range Interpretation Comments MAGNESIUM (BEAKER) (test code = 2.2 mg/dL 1.6-2.6 627) Roller Stainer ID - PIAYA [id number] 08:03:00 Test Item Value Reference Range Interpretation Comments PHOSPHORUS (BEAKER) (test code = 6.2 mg/dL 2.3-4.7 H 604) Roller Stainer ID - PIAYA LHEPATIC FUNCTION [id number] 08:03:00 Test Item Value Reference Range Interpretation [...] (test code = 19 U/L 6-55 347) Roller Stainer BO GAGE LBASIC METABOLIC [id number] 08:03:00 Test Item Value Reference Range Interpretation [...] S NOT APPLICABLE FOR DIALYSIS PATIEN TS. Roller Stainer ID - MERARI LSARS-COV2/RT-PCR ([facility])2020-07-24 07:27:00 Test Item Value Reference Range Interpretation Comments SARS-COV2/RT-PCR (test Negative Not Detected, Negative, code = 0111714) See external report for linked test SARS-COV-2 PERFORMING LAB [facility] AMELIA (test code = 7860353) Negative result for this test determines that [...] of the Act.Fact Sheet for Healthcare Prov iders:https://www.[employer]/sites/default/files/product/documents/Fact_Sheet_HC _Sixecgjyf_Jfmh_XHOJ-HiH-3.pdfFact Sheet for Healthcare Patients:https://www.[employer]/sites/default/files/product/docume nts/Tygn_Zsgkv_Iptgmhjb_Awkm_JITM-DrZ-7.pdfPerforming Laboratory:[facility], [place] [address]ADM W/PLT COUNT & AUTO [id number] 06:56:00 Test Item Value Reference Range Interpretation [...] 0-1 PERCENT (BEAKER) (test code = 2801) [id number] 04:39:00 Test Item Value Reference Range Interpretation Comments FERRITIN (BEAKER) (test code = 545.58 ng/mL 5.00-275.00 H 361) Roller Stainer ID - TAVIA MVITAMIN B12 AND [id number] 04:39:00 Test Item Value Reference Range Interpretation Comments VITAMIN B12 (BEAKER) 1058 pg/mL 213-816 H (test code = 774) FOLATE (BEAKER) 6.60 ng/mL See_Comment L [Automated message] (test code = 362) The system which generated this result transmitted ref erence range: >=7.00. The reference range was not used to interpr et this result as normal/abnormal . Roller Stainer ID - TAVIA MPERIPHERAL BLOOD SMEAR - HOLD [id number] 02:10:00 Test Item Value Reference Range Interpretation Comments PERIPHERAL SMEAR SAVE (BEAKER) (test Yes. code = 1815) [id number] 22:30:00 Test Item Value Reference Range Interpretation Comments HAPTOGLOBIN (BEAKER) (test code = 155 mg/dL 14-258 366) Roller Stainer ID - BSIRON, TIBC, % SAT. (WITHOUT FERRITIN)2020-07-23 22:30:00 Test Item Value Reference Range Interpretation Comments IRON (BEAKER) (test code = 547) 43.0 ug/dL 40.0-160.0 TOTAL IRON BINDING CAPACITY 208 ug/dL 250-450 L (BEAKER) (test code = 769) IRON % SATURATION (2) (BEAKER) 21 % 20-55 (test code = 2590) Roller Stainer ID - [id number] 22:29:00 Test Item Value Reference Range Interpretation Comments MAGNESIUM (BEAKER) (test code = 2.2 mg/dL 1.6-2.6 627) Roller Stainer ID - BSLACTATE DEHYDROGENASE (LDH)2020-07-23 22:29:00 Test Item Value Reference Range Interpretation Comments LACTATE DEHYDROGENASE (BEAKER) (test 193 U/L 125-220 code = 635) Roller Stainer ID - BSCOMPREHENSIVE METABOLIC [id number] 22:29:00 Test Item Value Reference Range Interpretation [...] S NOT APPLICABLE FOR DIALYSIS PATIEN TS. Roller Stainer ID - BSRETICULOCYTE [id number] 22:16:00 Test Item Value Reference Range Interpretation Comments RETICULOCYTE COUNT PCT (BEAKER) (test 1.8 % 0.5-1.8 code = 575) Roller Stainer ID - 6000CBC W/PLT COUNT & AUTO [id number] 22:16:00 Test Item Value Reference Range Interpretation [...] code = 2801) CT, CHEST, WITHOUT IV [id number] 08:39:00FINAL REPORT CT of the chest, abdomen [...] Prostate gland is enlarged. Atrophic kidneys. Signed: Aline Sanchezeport Verified Date/Time: 11/16/2019 08:39:14 Reading Location: [facility] C0X [facility] Consult Reading Room CT, [id number] 08:39:00FINAL REPORT CT of the chest, abdomen [...] to patient's size and/or use of iterative re constructive technique. Comparison Film: April 11, 2018, July [...] Prostate gland is enlarged. Atrophic kidneys. Signed: [facility] Verified Date/Time: 11/16/2019 08:39:14 Reading Location: [facility] C013X Ortho Consult Reading Room NEEDLE ASPIRATE BY [id number] 10:42:00Medical Cytology Report Case: [id number] Authorizing Provider: Kalen Hurtado MD Collected: 07/28/2018 1400 Ordering Location: [facility] Received: 07/28/2018 1424 SERVICES Pathologist: Genesis Dhillon MD Specimen: Lymph Node, Lower Paratracheal, Right, Station 4R LYMPH NODE, LOWER PARATRACHEAL, RIGHT, STATION 4R EBUS FNA AND CORE BIOPSY BY CLINICIAN (CYTOSPINS AND CELL BLOCK OF ASPIRATE): - NEGATIVE FOR MALIGNANCY - ANTHRACOTIC LYMPH NODE FRAGMENTS Signing Pathologist Direct Phone Line: [phone] signed by Genesis Dhillon MD on 08/01/2018 at 10:42 AMPlease see cases [id number] and [id number].Microscopic slides are received for examination and review on 08/01/2018.34386, [id number] lymphadenopathy, history of T-cell lymphoma currently in remissionLYMPH NODE, L OWER PARATRACHEAL, RIGHT, STATION 4R EBUS FNA37 mls in cytorich red; 2 cytospins, cell block (A3)Core biopsy: Multiple fragments measuring 7x 0.4cm, 2x 0.5 cm, 0.7 cm, 1.2 cm red (A2)Collected: [id number]: [id number].The interpretation of this case included the use of immunohistochemistry or special stains. Immunohistochemistry technical testing was performed at [facility], Pathology Laboratory where it was developed and its performance characteristics were determined.It has not been cleared or approved by the U.S. Food and Drug Administration. The FDA has determinedthat such clearance or approval is not necessary. The test is used for clinical purposes. It should not be regarded as investigational or for research. This laboratory is certified under the Clinical Laboratory Improvement Amendments of 1988 (CLIA-88) as qualified to perform high complexity clinical laboratory testing.[facility], Department of Pathology, [address] [place] [address], [facility], [facility] of [facility], [address] [place] [address], [facility], [facility], [address] [place] [address], XTOU NEEDLE ASPIRATE BY [id number] 10:41:00Medical Cytology Report Case: [id number] Authorizing Provider: Kalen Hurtado MD Collected: 07/28/2018 1356 Ordering Location: [facility] Received: 07/28/2018 1424 SERVICES Pathologist: Genesis Dhillon MD Specimen: Lymph Node, Subcarinal, Station 7 LYMPH NODE, SUBCARINAL, STATION 7 EBUS FNA AND CORE BIOPSY BY CLINICIAN (CYTOSPINS AND CELL BLOCK OF ASPIRATE): - NEGATIVE FOR MALIGNANCY - ANTHRACOTIC LYMPH NODE FRAGMENTS Signing Pathologist Direct Phone Line: [phone] signed by Genesis Dhillon MD on 08/01/2018 at 10:41 AMPlease see cases [id number] and [id number].Microscopic slides are received for examination and review on 08/01/2018.92034, 08058O3Tvnlcpphqcc lymphadeno nati, history of T-cell lymphoma currently in remissionLYMPH NODE, SUBCARINAL, STATION 7 EBUS TTM02irf in cytorich red; 2 cytospins, cell block (A3)Core biopsy: multiple fragments measuring 1.5 x 0.8cm, 0.5 cm, 0.3 cm, 0.2 cm red (A2)Collected: [id number]: [id number] interpretation of this case included the use of immunohistochemistry or special stains. Immunohistochemistry technical testing was performed at [facility], Pathology Laboratory where it was developed [...] qualified to perform high complexity clinical laboratory testing.[facility], Depart ment of Pathology, [address] [place] [address], [facility], [facility] of [facility]ology, [address] [place] [address], [facility], [facility] of [facility]ology, [address] [place] [address], XRXG CYTOMETRY [id number] 12:41:00 Test Item Value Reference Range Interpretation Comments FLOW CYTOMETRY RESULT See Separate Report POINTER (EDENILSON) (test code = 2758) FLOW CYTOMETRY AP CASE # [id number] (CHRISTIEAKER) (test code = 2759) FLOW [id number] 10:53:00Flow Cytometry Report Case: [id number] Authorizing Provider: Kalen Hurtado MD Collected: 07/28/2018 1355 Ordering Location: [facility] Received: 07/28/2018 1653 SERVICES Pathologist: Malissa Cohen MD Specimen: Other LYMPH NODE, EBUS FINE NEEDLE ASPIRATION, FLOW CYTOMETRY:-PREDOMINANCE OF GRANULOCYTES-NO MONOTYPIC B CELL POPULATION-NO ABERRANT T CELL POPULATION-SEE COMMENT The predominance of granulocytes is suggestive of peripheral blood contamination of the sample. These results require correlation withthe morphologic and other features for full interpretation. 17438Wigqjmsidsp lymphadenopathy, History of T cell lymphoma s/p therapyLymph node FNA EBUS-guidedCD8, surface-kappa, CD56, surface- lambda, CD5, CD19, CD10, CD3, CD20, CD4, RD21Yiobivlt Viability: 98.3% Number of Events Acquired: [id number] The following populations are identified: Lymphocytes: Bright [...] developed and their performance characteristics determined by [facility]. They have not been cleared or approved by the U.S. Food and Drug Administration. The FDA has determined that such clearance or approval is not necessary. It should not be regarded as investigational or for research. This laboratory is certified under the Clinical Laboratory Improvement Amendments of 1988 ("CLIA") as qualified to perform high-complexity clinical testing.EBUS FNA [id number] 16:00:00 Test Item Value Reference Range Interpretation Comments CYTOLOGY RESULT POINTER See Separate Report (BEAKER) (test code = 2629) EBUS FNA [id number] 16:00:00 Test Item Value Reference Range Interpretation Comments CYTOLOGY RESULT POINTER See Separate Report (BEAKER) (test code = 2629) COMPREHENSIVE METABOLIC [id number] 11:20:00 Test Item Value Reference Range Interpretation [...] S NOT APPLICABLE FOR DIALYSIS PATIEN TS. [id number] 10:18:00 Test Item Value Reference Range Interpretation Comments PARTIAL THROMBOPLASTIN TIME 36.1 seconds 22.5-36.0 H (BEAKER) (test code = 760) PROTHROMBIN [id number] 10:16:00 Test Item Value Reference Range Interpretation Comments PROTIME (BEAKER) (test code = 13.7 seconds 11.7-14.7 759) INR (BEAKER) (test code = 370) 1.0 <=5.9 RECOMMENDED COUMADIN/WARFARIN INR THERAPY RANGESSTANDARD DOSE: 2.0 - 3.0 Includes: PROPHYLAXIS for venous thrombosis, systemic embolization; TREATMENT for venous thrombosis and/or pulmonary embolus.HIGH RISK: Target INR is 2.5-3.5 for patients with mechanical heart valves.CBC W/PLT COUNT & AUTO [id number] 10:07:00 Test Item Value Reference Range Interpretation [...] (BEAKER) (test code = 2801) COMPREHENSIVE METABOLIC [id number] 07:46:00 Test Item Value Reference Range Interpretation [...] S NOT APPLICABLE FOR DIALYSIS PATIEN TS. [id number] 07:31:00 Test Item Value Reference Range Interpretation Comments PARTIAL THROMBOPLASTIN TIME 45.9 seconds 22.5-36.0 H (BEAKER) (test code = 760) PROTHROMBIN [id number] 07:30:00 Test Item Value Reference Range Interpretation Comments PROTIME (BEAKER) (test code = 13.7 seconds 11.7-14.7 759) INR (BEAKER) (test code = 370) 1.0 <=5.9 RECOMMENDED COUMADIN/WARFARIN INR THERAPY RANGESSTANDARD DOSE: 2.0 - 3.0 Includes: PROPHYLAXIS for venous thrombosis, systemic embolization; TREATMENT for venous thrombosis and/or pulmonary embolus.HIGH RISK: Target INR is 2.5-3.5 for patients with mechanical heart valves.CBC W/PLT COUNT & AUTO [id number] 07:22:00 Test Item Value Reference Range Interpretation [...] PERCENT (BEAKER) (test code = 2801) POCT-GLUCOSE [id number] 06:48:00 Test Item Value Reference Range Interpretation Comments POC-GLUCOSE METER 106 mg/dL 70-110 TESTED AT [facility] 6720 (BEAKER) (test code = [place] 1538) [address] BASIC METABOLIC [id number] 11:54:00 Test Item Value Reference Range Interpretation [...] PATIEN TS. CBC W/PLT COUNT & AUTO [id number] 11:37:00 Test Item Value Reference Range Interpretation [...] 0-1 PERCENT (BEAKER) (test code = 2801) [id number] 09:37:00 Test Item Value Reference Range Interpretation Comments POC-POTASSIUM 4.2 meq/L 3.6-5.5 TESTED AT [facility] C 6720 (BEAKER) (test code [facility] [address] = 1540) BUN AND [id number] 13:33:00 Test Item Value Reference Range Interpretation [...] S NOT APPLICABLE FOR DIALYSIS PATIEN TS. [id number] 13:32:00 Test Item Value Reference Range Interpretation Comments SODIUM (BEAKER) (test code = 381) 139 meq/L 136-145 POTASSIUM (BEAKER) (test code = 4.2 meq/L 3.5-5.1 379) CHLORIDE (BEAKER) (test code = 382) 100 meq/L 98-107 CO2 (BEAKER) (test code = 355) 27 meq/L 22-29 [id number] 13:14:00 Test Item Value Reference Range Interpretation Comments HEMOGLOBIN (BEAKER) (test code = 12.8 GM/DL 13.7-17.5 L 410) BLOOD [id number] 04:41:00 Test Item Value Reference Range Interpretation Comments CULTURE (BEAKER) (test No growth in 5 days code = 1095) POCT-GLUCOSE [id number] 13:11:00 Test Item Value Reference Range Interpretation Comments POC-GLUCOSE METER 169 mg/dL 70-110 H TESTED AT [facility] 6720 ([facility]) (test code = TATY Olivas [facility] 1538) [address] ANG, TUNNELED CATHETER [id number] 18:19:00FINAL REPORT Tunneled dialysis catheter insertion. History: [...] the patient's medical record by the nurse. Deicer Finisher: [place] Adhesive Bonding Machine Operator:None. Approach: Left internal jugular vein Estimated blood [...] hand hygiene, mask, head covering, and sterile gownfor performing radiologist and scrub technologist. Initial ultrasound images demonstrate partially thrombosed right internal jugular vein. The right internal jugular vein was punctured under direct real-time ultrasound guidance with a micropuncture needle. However, a 0.018 wire could not be advanced centrally. The inner 3 Palauan micropuncture sheath was placed and contrast injected [...] needle into the right atrium. A 4 Palauan micropuncture sheath was placed and a 0.035 wire advanced into the IVC. A subcutaneous tunnel was created in the left anterior chest wall by blunt dissection. A 23 cm tipto cuff 15.5 Palauan Duraflow 2 catheter was brought through the [...] MDReport Verified Date/Time: 01/13/2018 18:19:33 Reading Location: [place] [address] Angio Body Reading Room POCT-GLUCOSE [id number] 17:11:00 Test Item Value Reference Range Interpretation Comments POC-GLUCOSE METER 159 mg/dL 70-110 H TESTED AT [place] [address] ([facility]) (test code = [facility] 1538) [address] CATHETER TIP [id number] 10:23:00 Test Item Value Reference Range Interpretation [...] Tobramycin (test S code = 25) POCT-GLUCOSE [id number] 08:43:00 Test Item Value Reference Range Interpretation Comments POC-GLUCOSE METER 116 mg/dL 70-110 H TESTED AT [facility] 6720 ([facility]) (test code = [facility] 1538) [address] BASIC METABOLIC [id number] 06:17:00 Test Item Value Reference Range Interpretation [...] S NOT APPLICABLE FOR DIALYSIS PATIEN TS. [id number] 05:32:00 Test Item Value Reference Range Interpretation [...] CORPUSCULAR HEMOGLOBIN CONC 31.6 GM/DL 32.3-36.5 L ([facility]) (test code = 752) RED CELL DISTRIBUTION WIDTH 14.6 % 11.6-14.4 H ([facility]) (test code = 412) PLATELET COUNT ([facility]) (test 411 K/CU MM 150-450 code = 756) MEAN PLATELET VOLUME ([facility]) 10.2 fL 9.4-12.4 (test code = 754) NUCLEATED RED BLOOD CELLS 0 /100 WBC 0-0 ([facility]) (test code = 413) POCT-GLUCOSE [id number] 22:24:00 Test Item Value Reference Range Interpretation Comments POC-GLUCOSE METER 118 mg/dL 70-110 H TESTED AT [place] [address] ([facility]) ([facility] 1538) [address] POCT-GLUCOSE [id number] 18:32:00 Test Item Value Reference Range Interpretation Comments POC-GLUCOSE METER 146 mg/dL 70-110 H TESTED AT [place] [address] ([facility]) (test code = [facility] [place] [facility] 1538) [address] POCT-GLUCOSE [id number] 12:18:00 Test Item Value Reference Range Interpretation Comments POC-GLUCOSE METER 106 mg/dL 70-110 TESTED AT [place] [address] ([facility]) (test code = [facility] [place] [facility] 1538) [address] POCT-GLUCOSE [id number] 07:45:00 Test Item Value Reference Range Interpretation Comments POC-GLUCOSE METER 98 mg/dL 70-110 TESTED AT [place] [address] ([facility]) (test code = [facility] [place] [facility] [address] 1538) BLOOD [id number] 06:00:00 Test Item Value Reference Range Interpretation Comments CULTURE ([facility]) (test No growth in 5 days code = 1095) BLOOD [id number] 06:00:00 Test Item Value Reference Range Interpretation Comments CULTURE ([facility]) (test No growth in 5 days code = 1095) POCT-GLUCOSE [id number] 21:04:00 Test Item Value Reference Range Interpretation Comments POC-GLUCOSE METER 124 mg/dL 70-110 H TESTED AT [place] [address] ([facility]) (test code = [facility] 1538) [address] POCT-GLUCOSE [id number] 17:25:00 Test Item Value Reference Range Interpretation Comments POC-GLUCOSE METER 177 mg/dL 70-110 H TESTED AT [place] [address] ([facility]) (test code = [facility] 1538) [address] BASIC METABOLIC [id number] 13:32:00 Test Item Value Reference Range Interpretation Comments SODIUM (BEAKER) 130 meq/L 136-145 L (test code = 381) POTASSIUM (BEAKER) 5.0 meq/L 3.5-5.1 (test code = 379) CHLORIDE (BEAKER) 97 meq/L 98-107 L (test code = 382) CO2 (BEAKER) (test 18 meq/L 22-29 L code = 355) BLOOD UREA NITROGEN 86 mg/dL 7-21 H (AKER) (test code = 354) CREATININE ([facility]) 12.19 mg/dL 0.57-1.25 H (test code = 358) GLUCOSE RANDOM 94 mg/dL 70-105 ([facility]) (test code = 652) CALCIUM (BEAKER) 9.5 mg/dL 8.4-10.2 (test code = 697) EGFR ([facility]) (test 5 mL/min/1.73 ESTIMAT ED GFR IS code = 1092) sq m NOT ACCURATE CREATININE CLEARANCE IN PREDICTING GLOMERULAR FILTRATION RATE . ESTIMATED GFR I S NOT APPLICABLE FOR DIALYSIS PATIEN TS. POCT-GLUCOSE [id number] 12:17:00 Test Item Value Reference Range Interpretation Comments POC-GLUCOSE METER 82 mg/dL 70-110 TESTED AT [place] [address] ([facility]) (test code = [facility] [address] 1538) [id number] 11:20:00 Test Item Value Reference Range Interpretation Comments PROTIME (BEAKER) (test code = 15.3 seconds 11.7-14.7 H 759) [facility] (test code = 370) 1.2 <=5.9 PARTIAL THROMBOPLASTIN TIME 30.9 seconds 22.5-36.0 ([facility]) (test code = 760) RECOMMENDED COUMADIN/WARFARIN INR THERAPY RANGESSTANDARD DOSE: 2.0 - 3.0 Includes: PROPHYLAXIS for venous thrombosis, systemic embolization; TREATMENT for venous thrombosis and/or pulmonary embolus.HIGH RISK: Target INR is 2.5-3.5 for patients with mechanical heart valves.BLOOD [id number] 11:00:00 Test Item Value Reference Range Interpretation Comments CULTURE (BEAKER) (test No growth in 5 days code = 1095) POCT-GLUCOSE [id number] 07:51:00 Test Item Value Reference Range Interpretation Comments POC-GLUCOSE METER 107 mg/dL 70-110 TESTED AT [facility] 6720 (BEAKER) (test code = [place] 1538) [address] CALCIUM, [id number] 06:32:00 Test Item Value Reference Range Interpretation Comments CALCIUM IONIZED (BEAKER) (test 0.87 mmol/L 1.12-1.27 L code = 698) PH, BLOOD (BEAKER) (test code = 7.38 1810) [id number] 06:13:00 Test Item Value Reference Range Interpretation Comments PHOSPHORUS (BEAKER) (test code = 6.9 mg/dL 2.3-4.7 H 604) [id number] 06:13:00 Test Item Value Reference Range Interpretation Comments MAGNESIUM (BEAKER) (test code = 2.6 mg/dL 1.6-2.6 627) CBC W/PLT COUNT & AUTO [id number] 06:00:00 Test Item Value Reference Range Interpretation [...] 0-1 H PERCENT (BEAKER) (test code = 2806) POCT-GLUCOSE [id number] 21:57:00 Test Item Value Reference Range Interpretation Comments POC-GLUCOSE METER 91 mg/dL 70-110 TESTED AT [facility] 6720 (BEAKER) (test code = VELVETJULISSA Olivas [facility] [address] 1538) BASIC METABOLIC [id number] 20:35:00 Test Item Value Reference Range Interpretation [...] 358) GLUCOSE RANDOM 129 mg/dL 70-105 H ([facility]) (test code = 652) CALCIUM ([facility]) 9.9 mg/dL 8.4-10.2 (test code = 697) EGFR ([facility]) (test 5 mL/min/1.73 ESTIMAT ED GFR IS code = 1092) sq m NOT ACCURATE CREATININE CLEARANCE IN PREDICTING GLOMERULAR FILTRATION RATE . ESTIMATED GFR I S NOT APPLICABLE FOR DIALYSIS PATIEN TS. POCT-GLUCOSE [id number] 17:48:00 Test Item Value Reference Range Interpretation Comments POC-GLUCOSE METER 136 mg/dL 70-110 H TESTED AT [place] [address] ([facility]) (test code = [employer] [place] 1538) [address] POCT-GLUCOSE [id number] 12:42:00 Test Item Value Reference Range Interpretation Comments POC-GLUCOSE METER 109 mg/dL 70-110 TESTED AT [place] [address] ([facility]) (test code = [employer] [place] 1538) [address] POCT-GLUCOSE [id number] 08:25:00 Test Item Value Reference Range Interpretation Comments POC-GLUCOSE METER 146 mg/dL 70-110 H TESTED AT [place] [address] ([facility]) (test code = [employer] [place] 1538) [address] VANCOMYCIN LEVEL, [id number] 01:13:00 Test Item Value Reference Range Interpretation Comments VANCOMYCIN RANDOM ([facility]) (test 30.1 ug/mL code = 523) Reference Range: No NormalsPOCT-GLUCOSE [id number] 21:48:00 Test Item Value Reference Range Interpretation Comments POC-GLUCOSE METER 118 mg/dL 70-110 H TESTED AT [place] [address] ([facility]) (test code = [employer] [place] 1538) [address] POCT-GLUCOSE [id number] 18:22:00 Test Item Value Reference Range Interpretation Comments POC-GLUCOSE METER 118 mg/dL 70-110 H TESTED AT [place] [address] ([facility]) (test code = [employer] [place] 1538) [address] POCT-GLUCOSE [id number] 13:46:00 Test Item Value Reference Range Interpretation Comments POC-GLUCOSE METER 107 mg/dL 70-110 TESTED AT [facility] 6720 (BEAKER) (test code = TAT[place] 1538) [address] POCT-GLUCOSE [id number] 08:36:00 Test Item Value Reference Range Interpretation Comments POC-GLUCOSE METER 107 mg/dL 70-110 TESTED AT [facility] 6720 (BEAKER) (test code = TAT[place] 1538) [address] SPUTUM CULTURE + GRAM [id number] 07:38:00 Test Item Value Reference Range Interpretation Comments CULTURE (BEAKER) 1+ Normal respiratory (test code = 1095) miller present GRAM STAIN RESULT 1+ WBCs (BEAKER) (test code = 1123) GRAM STAIN RESULT 0-5 epithelial cells (BEAKER) (test code = 63535) GRAM STAIN RESULT 1+ gram positive cocci (BEAKER) (test code = in pairs and clusters 22545) BASIC METABOLIC [id number] 06:57:00 Test Item Value Reference Range Interpretation [...] S NOT APPLICABLE FOR DIALYSIS PATIEN TS. [id number] 06:54:00 Test Item Value Reference Range Interpretation Comments PHOSPHORUS (BEAKER) (test code = 4.9 mg/dL 2.3-4.7 H 604) [id number] 06:54:00 Test Item Value Reference Range Interpretation Comments MAGNESIUM (BEAKER) (test code = 2.2 mg/dL 1.6-2.6 627) CBC W/PLT COUNT & AUTO [id number] 06:38:00 Test Item Value Reference Range Interpretation [...] (test code = 416) BASOPHILS ABSOLUTE COUNT ([facility]) 0.05 K/ L 0.01-0.08 (test code = 417) IMMATURE GRANULOCYTES-RELATIVE 2 % 0-1 H PERCENT ([facility] [facility]) (test code = 2801) CALCIUM, [id number] 06:36:00 Test Item Value Reference Range Interpretation Comments CALCIUM IONIZED ([facility]) (test 0.81 mmol/L 1.12-1.27 L code = 698) PH, BLOOD ([facility]) (test code = 7.43 1810) POCT-GLUCOSE [id number] 20:50:00 Test Item Value Reference Range Interpretation Comments POC-GLUCOSE METER 99 mg/dL 70-110 TESTED AT [place] [address] ([facility]) (test code = [facility] [address] 1538) POCT-GLUCOSE [id number] 17:36:00 Test Item Value Reference Range Interpretation Comments POC-GLUCOSE METER 154 mg/dL 70-110 H TESTED AT [place] [address] ([facility]) (test code = [facility] 1538) [address] POCT-GLUCOSE [id number] 12:44:00 Test Item Value Reference Range Interpretation Comments POC-GLUCOSE METER 116 mg/dL 70-110 H TESTED AT [place] [address] ([facility]) (test code = [facility] 1538) [address] POCT-GLUCOSE [id number] 08:59:00 Test Item Value Reference Range Interpretation Comments POC-GLUCOSE METER 108 mg/dL 70-110 TESTED AT [place] [address] ([facility]) (test code = [facility] 1538) [address] (CELLAVISION MANUAL DIFF)2018-01-08 08:20:00 Test Item Value [...] 3438) Received comment: User comments: Slide comments:CALCIUM, [id number] 07:09:00 Test Item Value Reference Range Interpretation Comments CALCIUM IONIZED (BEAKER) (test 0.94 mmol/L 1.12-1.27 L code = 698) PH, BLOOD (BEAKER) (test code = 7.44 1810) BASIC METABOLIC [id number] 06:16:00 Test Item Value Reference Range Interpretation [...] S NOT APPLICABLE FOR DIALYSIS PATIEN TS. [id number] 06:14:00 Test Item Value Reference Range Interpretation Comments PHOSPHORUS (BEAKER) (test code = 5.5 mg/dL 2.3-4.7 H 604) [id number] 06:14:00 Test Item Value Reference Range Interpretation Comments MAGNESIUM (BEAKER) (test code = 2.3 mg/dL 1.6-2.6 627) HEPATIC FUNCTION [id number] 06:14:00 Test Item Value Reference Range Interpretation [...] 68 U/L 6-55 H 347) VANCOMYCIN LEVEL, [id number] 05:56:00 Test Item Value Reference Range Interpretation Comments VANCOMYCIN RANDOM (BEAKER) (test 37.1 ug/mL code = 523) Reference Range: No NormalsPROTHROMBIN [id number] 05:32:00 Test Item Value Reference Range Interpretation Comments PROTIME (BEAKER) (test code = 14.1 seconds 11.7-14.7 759) INR (BEAKER) (test code = 370) 1.1 <=5.9 RECOMMENDED COUMADIN/WARFARIN INR THERAPY RANGESSTANDARD DOSE: 2.0 - 3.0 Includes: PROPHYLAXIS for venous thrombosis, systemic embolization; TREATMENT for venous thrombosis and/or pulmonary embolus.HIGH RISK: Target INR is 2.5-3.5 for patients with mechanical heart valves.CBC W/PLT COUNT & AUTO [id number] 05:27:00 Test Item Value Reference Range Interpretation [...] 413) ANG, REMOVAL OF TUNNELED CVC W/O [id number] 21:29:00Reason for exam:->BacteremiaFINAL REPORT Tunneled catheter removal: [...] a right internal jugular tunneled catheter. Signed: Genesis Leslie Verified Date/Time: 01/07/2018 21:29:51 Reading Location: [facility] Radiology Reading Room POCT-GLUCOSE [id number] 21:18:00 Test Item Value Reference Range Interpretation Comments POC-GLUCOSE METER 138 mg/dL 70-110 H TESTED AT [place] [address] ([facility]) (test code = [facility] [employer] [facility] 1538) [address] POCT-GLUCOSE [id number] 17:07:00 Test Item Value Reference Range Interpretation Comments POC-GLUCOSE METER 126 mg/dL 70-110 H TESTED AT [place] [address] ([facility]) (test code = [facility] [employer] [facility] 1538) [address] LACTIC ACID, VENOUS, WHOLE [id number] 15:44:00 Test Item Value Reference Range Interpretation Comments LACTATE BLOOD VENOUS 1.9 mmol/L 0.5-2.2 Specime n slightly (2) [facility] (test hemolyzed code = 2872) Effective 09/10/2015: Units/Reference Range ChangeNew: 0.5-2.2 mmol/L Previous: 5- 20 mg/dLPOCT-GLUCOSE [id number] 13:38:00 Test Item Value Reference Range Interpretation Comments POC-GLUCOSE METER 120 mg/dL 70-110 H TESTED AT [place] [address] ([facility]) (test code = [employer] [facility] 1538) [address] BASIC METABOLIC [id number] 11:05:00 Test Item Value Reference Range Interpretation [...] S NOT APPLICABLE FOR DIALYSIS PATIEN TS. [id number] 10:45:00 Test Item Value Reference Range Interpretation Comments PHOSPHORUS (BEAKER) (test code = 5.6 mg/dL 2.3-4.7 H 604) [id number] 10:45:00 Test Item Value Reference Range Interpretation Comments MAGNESIUM (BEAKER) (test code = 2.5 mg/dL 1.6-2.6 627) HEPATIC FUNCTION [id number] 10:45:00 Test Item Value Reference Range Interpretation [...] U/L 6-55 H 347) HEPATITIS B SURFACE [id number] 10:16:00 Test Item Value Reference Range Interpretation Comments HEPATITIS B SURFACE ANTIGEN (2) Nonreactive Nonreactive (BEAKER) (test code = 2585) POCT-GLUCOSE [id number] 07:59:00 Test Item Value Reference Range Interpretation Comments POC-GLUCOSE METER 102 mg/dL 70-110 TESTED AT [place] [address] ([facility]) (test code = TATY [place] [facility] 1538) [address] VITAMIN D, [id number] 07:50:00 Test Item Value Reference Range Interpretation Comments VITAMIN D 25-OH ([facility]) (test 47.2 ng/mL 6.6-49.9 code = 2764) Effective 02/16/2017: Reference Range ChangeNew: 6.6-49.9 ng/mL Previous: 13.0- 47.8 ng/mLRecommendedVitamin D Target Range: 30.0-40.0 ng/mLVANCOMYCIN LEVEL, [id number] 07:12:00 Test Item Value Reference Range Interpretation Comments VANCOMYCIN RANDOM ([facility]) (test 22.1 ug/mL code = 523) Reference Range: No NormalsPTH, [id number] 05:52:00 Test Item Value Reference Range Interpretation Comments PARATHYROID HORMONE INTACT 198.9 pg/mL 8.5-72.5 H ([facility]) (test code = 577) CALCIUM, [id number] 05:45:00 Test Item Value Reference Range Interpretation Comments CALCIUM IONIZED ([facility]) (test 0.84 mmol/L 1.12-1.27 L code = 698) PH, BLOOD ([facility]) (test code = 7.51 1810) PROTHROMBIN [id number] 05:13:00 Test Item Value Reference Range Interpretation Comments PROTIME ([facility]) (test code = 14.7 seconds 11.7-14.7 759) INR ([facility]) (test code = 370) 1.2 <=5.9 RECOMMENDED COUMADIN/WARFARIN INR THERAPY RANGESSTANDARD DOSE: 2.0 - 3.0 Includes: PROPHYLAXIS for venous thrombosis, systemic embolization; TREATMENT for venous thrombosis and/or pulmonary embolus.HIGH RISK: Target INR is 2.5-3.5 for patients with mechanical heart valves.POCT-GLUCOSE [id number] 21:13:00 Test Item Value Reference Range Interpretation Comments POC-GLUCOSE METER 92 mg/dL 70-110 TESTED AT [facility] 6720 ([facility]) (test code = [place]AT[place] [facility] [address] 1538) [id number] 18:56:00 Test Item Value Reference Range Interpretation Comments PROCALCITONIN (BEAKER) (test code 51.22 ng/mL <0.05 HH = 3036) SEPSIS RISK (ng/mL)Low: 0.05-0.50Intermediate: 0.51-2.00High: >=2.01 URINALYSIS W/ [id number] 18:31:00 Test Item Value Reference Range Interpretation [...] /HPF 520) SOURCE(BEAKER) (test code = 2795) [id number] 17:48:00 Test Item Value Reference Range Interpretation Comments PHOSPHORUS (BEAKER) (test code = 5.1 mg/dL 2.3-4.7 H 604) RAD, CHEST, 1 VIEW, NON [id number] 11:31:00Reason for exam:->chest painShould this be performed [...] MDReport Verified Date/Time: 01/06/2018 11:31:21 Reading Location: [facility] Radiology Reading Room CBC W/PLT COUNT & [...] Received comment: User comments: Slide comments:U/S, RENAL, [id number] 09:04:00Reason for exam:->AKIFINAL REPORT Renal ultrasound Clinical [...] MDReport Verified Date/Time: 01/06/2018 09:04:28 Reading Location: [address] Ultrasound Reading Room LACTIC ACID, VENOUS, WHOLE [id number] 07:15:00 Test Item Value Reference Range Interpretation Comments LACTATE BLOOD VENOUS (2) (BEAKER) 0.6 mmol/L 0.5-2.2 (test code = 2872) Effective 09/10/2015: Units/Reference Range ChangeNew: 0.5-2.2 mmol/L Previous: 5- 20 mg/dLBASIC METABOLIC [id number] 05:48:00 Test Item Value Reference Range Interpretation [...] APPLICABLE FOR DIALYSIS PATIEN TS. HEPATIC FUNCTION [id number] 05:45:00 Test Item Value Reference Range Interpretation [...] code = 54 U/L 6-55 347) PROTHROMBIN [id number] 05:22:00 Test Item Value Reference Range Interpretation Comments PROTIME (BEAKER) (test code = 14.5 seconds 11.7-14.7 759) INR (BEAKER) (test code = 370) 1.1 <=5.9 RECOMMENDED COUMADIN/WARFARIN INR THERAPY RANGESSTANDARD DOSE: 2.0 - 3.0 Includes: PROPHYLAXIS for venous thrombosis, systemic embolization; TREATMENT for venous thrombosis and/or pulmonary embolus.HIGH RISK: Target INR is 2.5-3.5 for patients with mechanical heart valves.LATASHA TUNNELED DIALYSIS CATH INSERTION 2017-03-18 09:52:00Reason for [...] stable. Physician intra-service time was 20 minutes. Deicer Finisher: Dimple. Adhesive Bonding Machine Operator: None.Approach: Right internal jugular vein Estimated blood loss: [...] a large sterile sheet to cover the areasof the patient that were not prepped, and [...] needle into the right atrium. A 4 Palauan micropuncture sheath was placed. A subcutaneous tunnel was created in the right anterior chest wall by blunt dissection. A 19 cm 15.5 Palauan Duraflow 2 catheter was brought through the [...] dialysis catheter using sonographic and fluoroscopic guidance andconscious sedation. Signed: Hari Musa MDReport Verified Date/Time: 03/18/2017 09:52:18 ReadingLocation: [facility] B1 P048 Angio Body Reading Room MISCELLANEOUS LAB [id number] 14:09:00 Test Item Value Reference Range Interpretation Comments SCAN RESULT (test code = 0729179) Result comments: METHICILLIN-SUSCEPTIBLE STAPH. AUREUS (MSSA) DETECTED Staphylococcus aureus DETECTED MecA NOT DETECTED First line therapy: cefazolin or nafcillin (nafcillin preferred if Central Nervous System Infection) ID consultation strongly encouraged. Other organisms and resistance markers not co ntained in this PCR panel cannot be excluded and follow-up of traditional culture results is required. This sample was tested at the [facility] Clinical Microbiology Laboratory using the M_SOLUTION Blood Culture ID Panel. This test is FDA cleared for in vitro diagnostic use and has been verified and approved by the [facility] Clinical Microbiology laboratory for clinical use. Reference Range: Not DetectedBLOOD [id number] 11:00:00 Test Item Value Reference Range Interpretation Comments CULTURE (BEAKER) (test No growth in 5 days code = 1095) BLOOD [id number] 11:00:00 Test Item Value Reference Range Interpretation Comments CULTURE (BEAKER) (test No growth in 5 days code = 1095) BLOOD [id number] 18:00:00 Test Item Value Reference Range Interpretation Comments CULTURE (BEAKER) (test No growth in 5 days code = 1095) BLOOD [id number] 18:00:00 Test Item Value Reference Range Interpretation Comments CULTURE (BEAKER) (test No growth in 5 days code = 1095) BASIC METABOLIC [id number] 07:03:00 Test Item Value Reference Range Interpretation [...] WBC 0-0 (BEAKER) (test code = 413) [id number] 06:15:00 Test Item Value Reference Range Interpretation [...] for patients with mechanical heart valves.BASIC METABOLIC [id number] 06:38:00 Test Item Value Reference Range Interpretation [...] S NOT APPLICABLE FOR DIALYSIS PATIEN TS. [id number] 06:26:00 Test Item Value Reference Range Interpretation Comments PHOSPHORUS (BEAKER) (test code = 5.9 mg/dL 2.3-4.7 H 604) [id number] 06:26:00 Test Item Value Reference Range Interpretation Comments MAGNESIUM (BEAKER) (test code = 2.0 mg/dL 1.6-2.6 627) CBC W/PLT COUNT & AUTO [id number] 06:00:00 Test Item Value Reference Range Interpretation [...] 0-1 PERCENT (BEAKER) (test code = 2801) [id number] 07:32:00 Test Item Value Reference Range Interpretation [...] % 20-55 H (test code = 2590) [id number] 07:19:00 Test Item Value Reference Range Interpretation Comments PHOSPHORUS (BEAKER) (test code = 5.3 mg/dL 2.3-4.7 H 604) [id number] 07:19:00 Test Item Value Reference Range Interpretation Comments MAGNESIUM (BEAKER) (test code = 2.2 mg/dL 1.6-2.6 627) BASIC METABOLIC [id number] 07:19:00 Test Item Value Reference Range Interpretation [...] PATIEN TS. CBC W/PLT COUNT & AUTO [id number] 06:51:00 Test Item Value Reference Range Interpretation [...] (BEAKER) (test code = 2801) CATHETER TIP [id number] 16:52:00 Test Item Value Reference Range Interpretation Comments CULTURE (BEAKER) A <15 Colonie s On Direct (test code = 1095) Plate Coa gulase negative Staphylococcus CATHETER TIP [id number] 16:49:00 Test Item Value Reference Range Interpretation Comments CULTURE (BEAKER) (test code = 1095) No growth BLOOD [id number] 08:10:00 Test Item Value Reference Range Interpretation [...] gram 1123) positive cocci in clusters BLOOD [id number] 08:08:00 Test Item Value Reference Interpretation Comments [...] required. This sample was tested at the [facility] Clinical Microbiology Laboratory using the M_SOLUTION Blood Culture ID Panel. This test is FDA cleared for in vitro diagnostic use and has been verified and approved by the [facility] Clinical Microbiology laboratory for clinical use. Reference Range: Not DetectedBASIC METABOLIC [id number] 07:05:00 Test Item Value Reference Range Interpretation [...] S NOT APPLICABLE FOR DIALYSIS PATIEN TS. [id number] 07:01:00 Test Item Value Reference Range Interpretation Comments PHOSPHORUS (BEAKER) (test code = 4.8 mg/dL 2.3-4.7 H 604) [id number] 07:01:00 Test Item Value Reference Range Interpretation Comments MAGNESIUM (BEAKER) (test code = 2.2 mg/dL 1.6-2.6 627) CBC W/PLT COUNT & AUTO [id number] 06:39:00 Test Item Value Reference Range Interpretation [...] 0-1 PERCENT (BEAKER) (test code = 2801) [id number] 23:09:00 Test Item Value Reference Range Interpretation Comments SODIUM (BEAKER) (test code = 381) 141 meq/L 136-145 POTASSIUM (BEAKER) (test code = 4.2 meq/L 3.5-5.1 379) CHLORIDE (BEAKER) (test code = 382) 106 meq/L 98-107 CO2 (BEAKER) (test code = 355) 22 meq/L 22-29 BASIC METABOLIC [id number] 13:19:00 Test Item Value Reference Range Interpretation [...] S NOT APPLICABLE FOR DIALYSIS PATIEN TS. [id number] 13:11:00 Test Item Value Reference Range Interpretation Comments PHOSPHORUS (BEAKER) (test code = 3.6 mg/dL 2.3-4.7 604) [id number] 13:11:00 Test Item Value Reference Range Interpretation Comments MAGNESIUM (BEAKER) (test code = 2.1 mg/dL 1.6-2.6 627) CBC W/PLT COUNT & AUTO [id number] 12:55:00 Test Item Value Reference Range Interpretation [...] = 2801) ANG, REMOVAL OF TUNNELED CVC [id number] 12:44:00Reason for exam:->ESRD bacteremia concern for line [...] as described. Signed: Nellie Brooks MDReport Verified Date/Time: 02/27/2017 12:44:21 Reading Location: [place] [address] Angio Body Reading Room VANCOMYCIN LEVEL, RANDOM 2017-02-27 05:46:00 Test Item Value Reference Range Interpretation Comments VANCOMYCIN RANDOM (BEAKER) (test 20.4 ug/mL code = 523) Reference Range: No NormalsHEPATITIS B SURFACE [id number] 15:33:00 Test Item Value Reference Range Interpretation Comments HEPATITIS B SURFACE ANTIGEN (2) Nonreactive Nonreactive (BEAKER) (test code = 2585) CBC W/PLT COUNT & AUTO [id number] 07:12:00 Test Item Value Reference Range Interpretation [...] (BEAKER) (test code = 2801) BASIC METABOLIC [id number] 06:47:00 Test Item Value Reference Range Interpretation [...] S NOT APPLICABLE FOR DIALYSIS PATIEN TS. [id number] 06:43:00 Test Item Value Reference Range Interpretation Comments PHOSPHORUS (BEAKER) (test code = 3.0 mg/dL 2.3-4.7 604) PROTHROMBIN [id number] 06:07:00 Test Item Value Reference Range Interpretation [...] stable. Physician intra-service time was 20 minutes. Deicer Finisher: Dimple. Adhesive Bonding Machine Operator: None. Approach: Right internal jugular vein Estimated [...] skin prep, a large sterile sheet to coverthe areas of the patient that were not prepped, and hand hygiene, mask, head covering, and sterile gown for performing radiologist and scrub technologist. The skin was anesthetized with 2% lidocaine.Ultrasound evaluation showed a patent and compressible right internal jugular vein, which was puncturedunder direct real- time ultrasound guidance with a micropuncture needle. An ultrasound image was saved to PACS. A 0.018 inch wire was placed through the needle into the right atrium. A 4 Palauan micropuncture sheath was placed. A subcutaneous tunnel was created in the right anterior chest wall by blunt dissection. A 19 cm 15.5 Palauan Duraflow 2 catheter was brought through the [...] MDReport Verified Date/Time: 01/26/2017 07:52:45 Reading Location: [place] [id number] Angio Body Reading Room POCT-GLUCOSE METER 2017-01-26 01:07:00 Test Item Value Reference Range Interpretation Comments POC-GLUCOSE METER 179 mg/dL 70-110 H TESTED AT [facility] 6720 (BEAKER) (test code = [place] 1538) [address] BASIC METABOLIC [id number] 21:57:00 Test Item Value Reference Range Interpretation [...] PATIEN TS. CREATINE KINASE (CK), TOTAL AND [id number] 21:52:00 Test Item Value Reference Range Interpretation Comments CREATINE KINASE TOTAL (BEAKER) 159 U/L 29-200 (test code = 380) CREATINE KINASE-MB (BEAKER) (test 0.8 ng/mL 0.0-6.6 code = 750) CREATINE KINASE-MB INDEX (BEAKER) 0.5 % (test code = 395) CK-MB Reference Range:<6.7 Normal6.7-10.0 Borderline>10.0 AbnormalRAD, CHEST, 1 VIEW, NON [id number] 21:52:00Reason for exam:->CHEST PAINShould this be performed [...] internal jugular double lumen catheter that termina aolk at the cavoatrial junction. There is a left chest port that terminates in the low SVC. Signed: David Leach MDReport Verified Date/Time: 01/25/2017 21:52:27 Reading Location: [facility] [id number] Consult Reading Room TROPONIN I 2017-01-25 [...] (test code = 2801) HEPATITIS B SURFACE [id number] 15:55:00 Test Item Value Reference Range Interpretation Comments HEPATITIS B SURFACE ANTIGEN (2) Nonreactive Nonreactive (BEAKER) (test code = 2585) BASIC METABOLIC [id number] 07:30:00 Test Item Value Reference Range Interpretation [...] S NOT APPLICABLE FOR DIALYSIS PATIEN TS. [id number] 07:18:00 Test Item Value Reference Range Interpretation Comments PHOSPHORUS (BEAKER) (test code = 5.9 mg/dL 2.3-4.7 H 604) [id number] 07:18:00 Test Item Value Reference Range Interpretation Comments MAGNESIUM (BEAKER) (test code = 2.2 mg/dL 1.6-2.6 627) PROTHROMBIN [id number] 06:43:00 Test Item Value Reference Range Interpretation Comments PROTIME (BEAKER) (test code = 13.6 seconds 11.7-14.7 759) INR (BEAKER) (test code = 370) 1.1 <=5.9 RECOMMENDED COUMADIN/WARFARIN INR THERAPY RANGESSTANDARD DOSE: 2.0 - 3.0 Includes: PROPHYLAXIS for venous thrombosis, systemic embolization; TREATMENT for venous thrombosis and/or pulmonary embolus.HIGH RISK: Target INR is 2.5-3.5 for patients with mechanical heart valves.CBC W/PLT COUNT & AUTO [id number] 06:42:00 Test Item Value Reference Range Interpretation [...] = 2801) CBC W/PLT COUNT & AUTO [id number] 14:36:00 Test Item Value Reference Range Interpretation [...] code 1+ few = 480) BASIC METABOLIC [id number] 07:18:00 Test Item Value Reference Range Interpretation [...] S NOT APPLICABLE FOR DIALYSIS PATIEN TS. [id number] 07:11:00 Test Item Value Reference Range Interpretation Comments PHOSPHORUS (BEAKER) (test code = 3.7 mg/dL 2.3-4.7 604) CBC W/PLT COUNT & AUTO [id number] 11:27:00 Test Item Value Reference Range Interpretation [...] 1+ few code = 478) BASIC METABOLIC [id number] 08:40:00 Test Item Value Reference Range Interpretation [...] S NOT APPLICABLE FOR DIALYSIS PATIEN TS. [id number] 08:38:00 Test Item Value Reference Range Interpretation Comments PHOSPHORUS (BEAKER) (test code = 4.0 mg/dL 2.3-4.7 604) CBC W/PLT COUNT & AUTO [id number] 13:06:00 Test Item Value Reference Range Interpretation [...] (test code = Normal 762) HEPATITIS B [id number] 11:49:00 Test Item Value Reference Range Interpretation Comments HEPATITIS B CORE TOTAL ANTIBODY Nonreactive Nonreactive (BEAKER) (test code = 497) HEPATITIS B SURFACE ANTIBODY < mIU/mL <8.0 (BEAKER) (test code = 647) HEPATITIS B SURFACE ANTIGEN (2) Nonreactive Nonreactive (BEAKER) (test code = 2585) [id number] 11:19:00 Test Item Value Reference Range Interpretation [...] for patients with mechanical heart valves.BASIC METABOLIC [id number] 07:32:00 Test Item Value Reference Range Interpretation [...] S NOT APPLICABLE FOR DIALYSIS PATIEN TS. [id number] 07:17:00 Test Item Value Reference Range Interpretation Comments PHOSPHORUS (BEAKER) (test code = 3.3 mg/dL 2.3-4.7 604) [id number] 07:17:00 Test Item Value Reference Range Interpretation Comments MAGNESIUM (BEAKER) (test code = 2.0 mg/dL 1.6-2.6 627) HEPATIC FUNCTION [id number] 07:17:00 Test Item Value Reference Range Interpretation [...] = 13 U/L 6-55 347) COMPREHENSIVE METABOLIC [id number] 17:39:00 Test Item Value Reference Range Interpretation [...] S NOT APPLICABLE FOR DIALYSIS PATIEN TS. [id number] 17:36:00 Test Item Value Reference Range Interpretation Comments MAGNESIUM (BEAKER) 2.2 mg/dL 1.6-2.6 Specimen slightly (test code = 627) hemolyzed CBC W/PLT COUNT & AUTO [id number] 16:57:00 Test Item Value Reference Range Interpretation [...] 0.00-0.20 (test code = 417) 0.00COMPREHENSIVE METABOLIC [id number] 06:52:00 Test Item Value Reference Range Interpretation [...] NOT APPLICABLE FOR DIALYSIS PATIEN TS. URIC [id number] 06:51:00 Test Item Value Reference Range Interpretation Comments URIC ACID (BEAKER) (test code = 8.2 mg/dL 2.6-7.2 H 773) LACTATE DEHYDROGENASE (LDH)2016-08-07 06:51:00 Test Item Value Reference Range Interpretation Comments LACTATE DEHYDROGENASE (BEAKER) (test 233 U/L 125-220 H code = 635) CBC W/PLT COUNT & AUTO [id number] 15:03:00 Test Item Value Reference Range Interpretation [...] (test code = Normal 762) COMPREHENSIVE METABOLIC [id number] 06:13:00 Test Item Value Reference Range Interpretation [...] NOT APPLICABLE FOR DIALYSIS PATIEN TS. URIC [id number] 06:05:00 Test Item Value Reference Range Interpretation Comments URIC ACID (BEAKER) (test code = 5.3 mg/dL 2.6-7.2 773) [id number] 06:05:00 Test Item Value Reference Range Interpretation Comments MAGNESIUM (BEAKER) (test code = 1.9 mg/dL 1.6-2.6 627) [id number] 06:05:00 Test Item Value Reference Range Interpretation Comments PHOSPHORUS (BEAKER) (test code = 3.8 mg/dL 2.3-4.7 604) LACTATE DEHYDROGENASE (LDH)2016-08-06 06:05:00 Test Item Value Reference Range Interpretation Comments LACTATE DEHYDROGENASE (BEAKER) (test 248 U/L 125-220 H code = 635) [id number] 06:51:00 Test Item Value Reference Range Interpretation Comments PHOSPHORUS (BEAKER) (test code = 3.5 mg/dL 2.3-4.7 604) [id number] 06:51:00 Test Item Value Reference Range Interpretation Comments MAGNESIUM (BEAKER) (test code = 1.9 mg/dL 1.6-2.6 627) BASIC METABOLIC [id number] 06:51:00 Test Item Value Reference Range Interpretation [...] PATIEN TS. CBC W/PLT COUNT & AUTO [id number] 06:37:00 Test Item Value Reference Range Interpretation [...] 0.00-0.20 (test code = 417) 0.00BASIC METABOLIC [id number] 12:49:00 Test Item Value Reference Range Interpretation [...] NOT APPLICABLE FOR DIALYSIS PATIEN TS. URIC [id number] 12:46:00 Test Item Value Reference Range Interpretation Comments URIC ACID (BEAKER) (test code = 5.2 mg/dL 2.6-7.2 773) [id number] 12:46:00 Test Item Value Reference Range Interpretation Comments MAGNESIUM (BEAKER) (test code = 2.1 mg/dL 1.6-2.6 627) [id number] 12:46:00 Test Item Value Reference Range Interpretation Comments PHOSPHORUS (BEAKER) (test code = 3.8 mg/dL 2.3-4.7 604) HEPATIC FUNCTION [id number] 12:46:00 Test Item Value Reference Range Interpretation [...] = 635) CBC W/PLT COUNT & AUTO [id number] 12:27:00 Test Item Value Reference Range Interpretation [...] (test code = 417) 0.00HEPATITIS B SURFACE [id number] 14:54:00 Test Item Value Reference Range Interpretation Comments HEPATITIS B SURFACE ANTIGEN (2) Nonreactive Nonreactive (BEAKER) (test code = 2585) CBC W/PLT COUNT & AUTO [id number] 10:30:00 Test Item Value Reference Range Interpretation [...] code = 1+ few 481) COMPREHENSIVE METABOLIC [id number] 06:29:00 Test Item Value Reference Range Interpretation [...] = 635) CBC W/PLT COUNT & AUTO [id number] 06:53:00 Test Item Value Reference Range Interpretation [...] 0.00-0.20 (test code = 417) 0.00COMPREHENSIVE METABOLIC [id number] 06:47:00 Test Item Value Reference Range Interpretation [...] = 635) CBC W/PLT COUNT & AUTO [id number] 11:26:00 Test Item Value Reference Range Interpretation [...] (test code = Normal 762) BASIC METABOLIC [id number] 05:47:00 Test Item Value Reference Range Interpretation [...] NOT APPLICABLE FOR DIALYSIS PATIEN TS. URIC [id number] 05:44:00 Test Item Value Reference Range Interpretation Comments URIC ACID (BEAKER) (test code = 9.4 mg/dL 2.6-7.2 H 773) [id number] 05:44:00 Test Item Value Reference Range Interpretation Comments PHOSPHORUS (BEAKER) (test code = 5.1 mg/dL 2.3-4.7 H 604) HEPATIC FUNCTION [id number] 05:44:00 Test Item Value Reference Range Interpretation [...] = 635) CBC W/PLT COUNT & AUTO [id number] 11:11:00 Test Item Value Reference Range Interpretation [...] 1+ few code = 478) BASIC METABOLIC [id number] 07:05:00 Test Item Value Reference Range Interpretation [...] NOT APPLICABLE FOR DIALYSIS PATIEN TS. URIC [id number] 07:04:00 Test Item Value Reference Range Interpretation Comments URIC ACID (BEAKER) (test code = 4.6 mg/dL 2.6-7.2 773) [id number] 07:04:00 Test Item Value Reference Range Interpretation Comments PHOSPHORUS (BEAKER) (test code = 3.1 mg/dL 2.3-4.7 604) HEPATIC FUNCTION [id number] 07:04:00 Test Item Value Reference Range Interpretation [...] = 635) CBC W/PLT COUNT & AUTO [id number] 06:57:00 Test Item Value Reference Range Interpretation [...] (BEAKER) (test code = 1351) BASIC METABOLIC [id number] 06:09:00 Test Item Value Reference Range Interpretation [...] NOT APPLICABLE FOR DIALYSIS PATIEN TS. URIC [id number] 06:05:00 Test Item Value Reference Range Interpretation Comments URIC ACID (BEAKER) (test code = 6.5 mg/dL 2.6-7.2 773) [id number] 06:05:00 Test Item Value Reference Range Interpretation Comments PHOSPHORUS (BEAKER) (test code = 5.0 mg/dL 2.3-4.7 H 604) HEPATIC FUNCTION [id number] 06:05:00 Test Item Value Reference Range Interpretation [...] 125-220 H code = 635) URINALYSIS W/ [id number] 22:18:00 Test Item Value Reference Range Interpretation [...] SOURCE(BEAKER) (test code Urine, Clean Catch = 2795) CBC W/PLT COUNT & AUTO [id number] 20:30:00 Test Item Value Reference Range Interpretation [...] 0.00-0.20 (test code = 417) 0.00COMPREHENSIVE METABOLIC [id number] 20:25:00 Test Item Value Reference Range Interpretation [...] NOT APPLICABLE FOR DIALYSIS PATIEN TS. URIC [id number] 20:24:00 Test Item Value Reference Range Interpretation Comments URIC ACID (BEAKER) (test code = 5.8 mg/dL 2.6-7.2 773) [id number] 20:24:00 Test Item Value Reference Range Interpretation Comments PHOSPHORUS (BEAKER) (test code = 4.8 mg/dL 2.3-4.7 H 604) LACTATE DEHYDROGENASE (LDH)2016-07-14 20:24:00 Test Item Value Reference Range Interpretation Comments LACTATE DEHYDROGENASE (BEAKER) (test 245 U/L 125-220 H code = 635) PROTHROMBIN [id number] 20:12:00 Test Item Value Reference Range Interpretation Comments PROTIME (BEAKER) (test code = 13.0 seconds 11.7-14.7 759) INR (BEAKER) (test code = 370) 1.0 <=5.9 RECOMMENDED COUMADIN/WARFARIN INR THERAPY RANGESSTANDARD DOSE: 2.0 - 3.0 Includes: PROPHYLAXIS for venous thrombosis, systemic embolization; TREATMENT for venous thrombosis and/or pulmonary embolus.HIGH RISK: Target INR is 2.5-3.5 for patients with mechanical heart valves.[id number] 15:01:00 Test Item Value Reference Range Interpretation Comments LAB AP CPT CODE (BEAKER) (test code = 52841 2749) CBC W/PLT COUNT & AUTO [id number] 14:40:00 Test Item Value Reference Range Interpretation [...] (test code = Normal 762) BASIC METABOLIC [id number] 07:34:00 Test Item Value Reference Range Interpretation [...] S NOT APPLICABLE FOR DIALYSIS PATIEN TS. [id number] 07:26:00 Test Item Value Reference Range Interpretation Comments PHOSPHORUS (BEAKER) (test code = 5.0 mg/dL 2.3-4.7 H 604) [id number] 07:26:00 Test Item Value Reference Range Interpretation Comments MAGNESIUM (BEAKER) (test code = 2.0 mg/dL 1.6-2.6 627) HEPATIC FUNCTION [id number] 07:26:00 Test Item Value Reference Range Interpretation [...] = 14 U/L 6-55 347) FLOW CYTOMETRY [id number] 11:51:00 Test Item Value Reference Range Interpretation Comments FLOW CYTOMETRY RESULT See Separate Report POINTER (BEAKER) (test code = 2758) FLOW CYTOMETRY AP CASE # [id number] (BEAKER) (test code = 2759) HEPATITIS B SURFACE [id number] 09:53:00 Test Item Value Reference Range Interpretation Comments HEPATITIS B SURFACE ANTIGEN (2) Nonreactive Nonreactive (BEAKER) (test code = 2585) FLOW [id number] 09:46:00 Test Item Value Reference Range Interpretation Comments LAB AP CPT CODE (BEAKER) (test code = 30666 2749) BASIC METABOLIC [id number] 06:27:00 Test Item Value Reference Range Interpretation [...] S NOT APPLICABLE FOR DIALYSIS PATIEN TS. [id number] 06:26:00 Test Item Value Reference Range Interpretation Comments PHOSPHORUS (BEAKER) (test code = 3.3 mg/dL 2.3-4.7 604) [id number] 06:26:00 Test Item Value Reference Range Interpretation Comments MAGNESIUM (BEAKER) (test code = 1.9 mg/dL 1.6-2.6 627) HEPATIC FUNCTION [id number] 06:26:00 Test Item Value Reference Range Interpretation [...] 6-55 347) CBC W/PLT COUNT & AUTO [id number] 06:10:00 Test Item Value Reference Range Interpretation [...] (test code = 417) 0.00CSF CELL COUNT [id number] 16:38:00 Test Item Value Reference Range Interpretation [...] NUMBER CSF (BEAKER) (test 1 code = 4328) CBC W/PLT COUNT & AUTO [id number] 06:59:00 Test Item Value Reference Range Interpretation [...] 0.00-0.20 (test code = 417) 0.00BASI METABOLIC [id number] 06:18:00 Test Item Value Reference Range Interpretation [...] S NOT APPLICABLE FOR DIALYSIS PATIEN TS. [id number] 06:17:00 Test Item Value Reference Range Interpretation Comments PHOSPHORUS (BEAKER) (test code = 4.9 mg/dL 2.3-4.7 H 604) [id number] 06:17:00 Test Item Value Reference Range Interpretation Comments MAGNESIUM (BEAKER) (test code = 1.8 mg/dL 1.6-2.6 627) HEPATIC FUNCTION [id number] 06:17:00 Test Item Value Reference Range Interpretation [...] = 13 U/L 6-55 347) COMPREHENSIVE METABOLIC [id number] 21:37:00 Test Item Value Reference Range Interpretation [...] NOT APPLICABLE FOR DIALYSIS PATIEN TS. URIC [id number] 21:36:00 Test Item Value Reference Range Interpretation Comments URIC ACID (BEAKER) (test code = 4.9 mg/dL 2.6-7.2 773) LACTATE DEHYDROGENASE (LDH)2016-06-23 21:36:00 Test Item Value Reference Range Interpretation Comments LACTATE DEHYDROGENASE (BEAKER) (test 223 U/L 125-220 H code = 635) PROTHROMBIN [id number] 21:23:00 Test Item Value Reference Range Interpretation Comments PROTIME (BEAKER) (test code = 13.2 seconds 11.7-14.7 759) INR (BEAKER) (test code = 370) 1.0 <=5.9 RECOMMENDED COUMADIN/WARFARIN INR THERAPY RANGESSTANDARD DOSE: 2.0 - 3.0 Includes: PROPHYLAXIS for venous thrombosis, systemic embolization; TREATMENT for venous thrombosis and/or pulmonary embolus.HIGH RISK: Target INR is 2.5-3.5 for patients with mechanical heart valves.CBC W/PLT COUNT & AUTO [id number] 21:18:00 Test Item Value Reference Range Interpretation [...] L 0.00-0.20 (test code = 417) 0.00 History and Physical Notes Date/Time Note Provider Source 2022-12-22 Formatting of this note is different from the or iginal. [facility] 23:47:03-00:00 [facility] Hospitalist Admission H&P Date of Service: 12/22/2022 CHIEF COMPLAINT: Abdominal pain; intractable atilio sea and vomiting HISTORY OF PRESENT ILLNESS Ashia Alejandre is a [age] year old male who presents with abdominal distention along with intractable nausea and vomiting. Patient states his volume status was worse last week and he was dialyzed on Tuesday, Tuesday, and ay. He was given an extra dialysis session on Tuesday. He had been doing well but on Tuesday he started having some nausea and vomiting. His abdominal symptoms were worseni ng and he was feeling bloate d. He decided to go into the emergency room for further evaluation. In the emergency room, patient had anemia along with hyperkalemia. Patient's troponins and BNP were also e levated. Patient's imaging s tudies revealed cirrhosis with portal hypertensive enteropathy. Patient also had retroperitoneal and hepatic hilar lymphadenopathy. Patient also had severe thickening of the bladder with prostate enlarg ement. Patient also with biventricular dilatation with multiple stents of the coronary arteries. At this time, patient will be treated conservatively for his abdominal sympto ms. We will monitor patient closely and if symptoms do not improve then patient may need a second opinion from GI or general surgery. 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 Shen Chronic kidney disease on dialysis 10/2015- [address] Estevan Kennedy in [place], [place] HTN (hypertension) Hyperlipidemia Renal failure PAST SURGICAL HISTORY Past Surgical History: Procedure Laterality Date CENTRAL VENOUS ACCESS CATHETER PLACEMENT Right 10/30/2015 Surgeon: Marcin Payne MD; Location: [facility] OR Location COLONOSCOPY N/A 05/31/2022 Surgeon: Rachel Mackenzie MD; Location: [facility] OR LOCATION ESOPHAGOGASTRODUODENOSCOPY N/A 05/28/2022 Surgeon: Gnee Sanz MD; Location: [facility] OR LOCATION HB CLSD TX HIP SOCKET FRACTURE Right 1995 HIP HARDWARE REMOVAL Right 1995 PATENCY CAPSULE ([facility]X) N/A 06/03/2022 Surgeon: Pricilla Hastings MD; Location: [facility] OR LOCATION PILL CAM ([facility]) Upper 06/03/2022 Surgeon: Pricilla Hastings MD; Location: [facility] OR LOCATION PUSH ENDOSCOPY ([facility]) N/A 05/28/2022 Surgeon: Gene Sanz MD; Location: [facility] OR LOCATION ALLERGIES No Known Allergies MEDICATIONS Current home medication list reviewed: Current Discharge Medication List START taking these medications Details dicyclomine 20 mg tablet Ryan e 1 tablet by mouth every 6 (six) hours as needed for Abdominal pain. Qty: 20 tablet, Refills: 0 Associated Diagnoses: Vomit ing, unspecified vomiting type, unspecified whether nausea present; Abdominal pain, unspecified abdominal location ondansetron (ZOFRAN) 4 mg ta blet Take 1 tablet by mouth every 8 (eight) hours as needed for Nausea and Vomiting (N/V). Qty: 12 tablet, Refills: 0 Associated Diagnoses: Vomit ing, unspecified vomiting type, unspecified whether nausea present; Abdominal pain, unspecified abdominal location STOP taking these medications ferrous sulfate (IRON) 325 mg (65 mg iron) tabl et Comments: Reason for Stopping: HYDROcodone-acetaminophen 10-325 mg tablet Comm ents: Reason for Stopping: calamine-zinc oxide lotion Comments: Reason for Stopping: hydrOXYzine 25 mg tablet Comments: Reason for Stopping: ujnyjaoryjt-iaukoervx-qzmxj ter (TRELEGY ELLIPTA) 100-62.5-25 mcg DsDv Comments: Reason for Stopping: hydrALAZINE 50 mg tablet Comments: Reason for Stopping: terazosin 2 mg capsule Comments: Reason for Stopping: Diphenhydramine HCl (BENADRYL) 2 % Gel Comments : Reason for Stopping: doxycycline hyclate 100 mg tablet Comments: Reason for Stopping: calcitrioL 0.25 mcg capsule Comments: Reason for Stopping: finasteride 5 mg tablet Comments: Reason for Stopping: foLIC acid 1 mg tablet Comments: Reason for Stopping: furosemide 20 mg tablet Comments: Reason for Stopping: lovastatin 20 mg 24 hr tablet Comments: Reason for Stopping: NIFEdipine ER 30 mg tablet Comments: Reason for Stopping: sevelamer 800 mg tablet Comments: Reason for Stopping: peg-electrolyte soln 236-22.74-6.74 -5.86 gram solution Comments: Reason for Stopping: tiotropium bromide 1.25 mcg/actuation Mist Comm ents: Reason for Stopping: metoprolol succinate XL 50 mg 24 hr tablet Comm ents: Reason for Stopping: FAMILY HISTORY Family History Problem Relation Age of Onset Hypertension Mother High cholesterol Mother Musculoskeletal Father sclerosis No Significant Medical Problems Sister High cholesterol Brother Hypertension Brother No Significant Medical Problems Son Diabetes Maternal Grandmother Diabetes Maternal Grandfather Diabetes Paternal Grandmother Cancer Paternal Grandfather stomach No Significant Medical Problems Sister No Significant Medical Problems Sister No Significant Medical Problems Sister No Significant Medical Problems Brother Hypertension Brother No Significant Medical Problems Brother No Significant Medical Problems Brother Hypertension Son SOCIAL HISTORY Social History Socioeconomic History Marital status: Single Tobacco Use Smoking status: Former Packs/day: 0.50 Years: 30.00 Additional pack years: 0.00 Total pack years: 15.00 Types: Cigarettes Quit date: 12/08/2015 Years since quittin.0 Smokeless tobacco: Current Types: Chew Substance and Sexual Activity Alcohol use: No Alcohol/week: 0.0 standard drinks of alcohol Comment: Sober for last year Drug use: No Sexual activity: Yes Partners: Female control/protection: Condom Social History Narrative Lives with his mother. Employed: on disability Exercise: nothing Social Determinants of Health Financial Resource Strain: Low Risk (05/27/2022) Overall Financial Resource Strain (CARDIA) Difficulty of Paying Living Expenses: Not very hard Food Insecurity: No Food Insecurity (05/27/2022) Hunger Vital Sign Worried About Running Out of Food in the Last Y ear: Never true Ran Out of Food in the Last Year: Never true Transportation Needs: No Transportation Needs () PRAPARE - Transportation Lack of Transportation (Medical): No Lack of Transportation (Non-Medical): No Physical Activity: Inactive (05/27/2022) Exercise Vital Sign Days of Exercise per Week: 0 days Minutes of Exercise per Session: 0 min Social Connections: Unknown (05/27/2022) Social Connection and Isolation Panel [NHANES] Frequency of Communication with Friends and Fam indra: Once a week Marital Status: REVIEW OF SYSTEMS 10 systems negative except per HPI PHYSICAL EXAMINATION BP 116/84 (BP Location: Left arm) | Pulse 74 | Temp 37.1 ?C (98.7 ?F) (Temporal Artery) | Resp 18 | Ht 1.88 m (6' 2") | Wt 92 kg (202 lb 12.8 oz) | SpO2 95% | BMI 26.04 kg/m? General: No acute distress HEENT: Normal oral mucosa, anicteric sclerae, NC AT Cardiovascular: RRR Lungs: Symmetric expansion, CTAB Abdomen: Soft, NTND Musculoskeletal: No synovitis, normal muscle mas s Genitourinary: Normal Skin: No rash, lesions Neuro: AAOx3, no focal deficits Psych: Normal affect LABS - reviewed pertinent labs as below: CBC BMP PT/INR WBC (10*3/?L) Date Value 12/22/2022 4.25 NA (mmol/L) Date Value 12/22/2022 136 No results found for: "PT" RBC (10*6/?L) Date Value 12/22/2022 3.09 (L) K (mmol/L) Date Value 12/22/2022 5.1 (H) INR (no units) Date Value 11/30/2022 1.2 PLT (10*3/?L) Date Value 12/22/2022 188 CALCIUM (mg/dL) Date Value 12/22/2022 9.4 HGB (g/dL) Date Value 12/22/2022 8.8 (L) CL (mmol/L) Date Value 12/22/2022 93 (L) aPTT HCT (%) Date Value 12/22/2022 28.1 (L) BUN (mg/dL) Date Value 12/22/2022 75 (H) APTT Patient (Seconds) Date Value 11/30/2022 34 CREATININE (mg/dL) Date Value 12/22/2022 9.03 (H) IMAGING - reviewed, pertinent results as below: Small bowel endoscopy: - The Z-line was regular and was found 40 cm fro m the incisors. - A 1 cm hiatal hernia was present. - The entire examined stomach was normal. - There was no evidence of s ignificant pathology in the duodenal bulb, in the first portion of the duodenum, in the second portion of the duoden um, in the third portion of the duodenum and in the fourth portion of the duodenum. - There was no evidence of significant pathology in the proximal jejunum. Colonoscopy: Patient with hemorrhoids; no other abnormalities noted Hospital Encounter on 12/22/22 CT ABDOMEN PELVIS WO CONTRAST Narrative EXAM: CT ABDOMEN PELVIS WO CONTRAST HISTORY: 67 years-old Male; Abdominal pain, acut e, nonlocalized TECHNIQUE: Contiguous axial imaging from the lev el of the lung bases through the iliac crests was performed without c ontrast. Coronal and sagittal reconstructions were obtained. COMPARISON: 11/30/2022, 05/27/2022 FINDINGS: Limited evaluation of solid organs and vasculatu res without administration intravenous contrast. LOWER THORAX: The lung bases are clear. Cardiome carlitos with multiple coronary vascular stents. LIVER: Early cirrhotic morphology with trace per ihepatic ascites. No focal hepatic lesion is seen within the limitations of a non-contrasted examination. GALLBLADDER AND BILIARY TREE: The gallbladder ap pears unremarkable. No radiopaque gallstones are seen. No intra or extr ahepatic biliary ductal dilation is visualized. SPLEEN: The spleen appears unremarkable. PANCREAS: No ductal dilation or masses are visua lized. ADRENAL GLANDS: Thickened bilateral adrenal glan ds.. KIDNEYS, URETERS, AND BLADDER: Numerous bilatera l renal cysts with atrophic appearance of the kidney may represent acquired cystic disease of the kidney. Calcific densities in bilateral cathy l tamiko likely represent vascular calcifications rather than stones. The bladder is severely thickened with the prostate protruding into the bladder. REPRODUCTIVE ORGANS: The prostate measures withi n normal limits in transverse diameter but the transitional zone hy pertrophy versus prostatic mass protrudes into the bladder. GI TRACT: Diffuse thickening of the jejunum may be due to hepatic enteropathy. Trace amount of ascites is unchange d. A small round 1.6 cm calcific density in the mesentery may represent a peritoneal mice versus thrombosed aneurysm. On the CT angiogram in [place] did not show contrast opacification.. This is present at least from th e oldest CT available in the system in May 2022. The appendix is not definitively visualized, however, no secondary signs of appendicitis are seen. LYMPH NODES: No lymphadenopathy. VESSELS: Multiple prominent retroperitoneal and portacaval lymphadenopathy may be related to cirrhosis. BONES AND SOFT TISSUES: External fixation of the right pelvis and hip without suspicious periarticular lucencies. No f ractures. Impression 1. Early cirrhotic morphology with trace perihe patic ascites and portal hypertensive enteropathy, unchanged. Retroperito jeovany and hepatic hilar lymphadenopathy may also be related to early cir rhosis. Small volume ascites. 2. Stable chronic round peripherally calcified 1 .6 cm nodule in the mesentery may represent a peritoneal loose body versus thrombosed aneurysm. This is unchanged from May 2022. 3. Persistent severe thickening of the bladder w ith prostatomegaly are suspicious for chronic bladder outlet obstructio n with or without superimposed cystitis. 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 4. Biventricular dilatation with multiple hayes ry vascular stents. Limited study in the absence of IV contrast. Preliminary Report Dictated by Resident: Irvin Esquivel MD I, Arthur Gilbert MD., have reviewed this holden dy and agree with the above report. ASSESSMENT: 1. Abdominal pain with intractable nausea and vo miting 2. ESRD; with bilateral lower extremity edema 3. Cirrhosis with portal hypertensive enteropath y 4. BPH 5. CHF with coronary artery disease and history of multiple stent placement PLAN: 1. Abdominal pain with intra ctable nausea vomiting; continue with antiemetics; hold IV fluids as patient with end-stage renal disease. Imaging studies with no significant abnormalities. Continue with supportive care. 2. ESRD with bilateral lower extremity edema; consult nephrology for hemodialysis, and check venous Doppler as patient with swelling of lower extremity 3. Cirrhosis with portal hyp ertensive enteropathy; will monitor liver function testing; 4. BPH; patient makes very l ittle urine so no aggressive treatment at this time. Patient is end-stage renal disease patient 5. Patient with history of C HF and coronary artery disease with multiple stents; continue with antiplatelet and statin therapy. Monitor hemodynamics closely. Cardiology consultation 6. GI and DVT prophylaxis DVT prophylaxis: enoxaparin Stress ulcer prophylaxis: famotidine Code status: FULL Advanced Care Planning (Z71.89) Above assessment and plan di scussed at length with patient, patient expressed full understanding. Questions and concerned addressed. Surrogate decision maker: DAUGHTER Level of care expected after discharge: HOME Time spent: 3 minutes discussing the advanced ca re plan Smoking Cessation: (Z71.6) Tobacco user?: NO Patient will require inpatie nt stay of 2 midnights or more given high risk of morbidity and mortality. [place] [facility]/REC/DOC CONTROL was verified during stay Vasquez Cao MD Electronically signed by Vasquez Cao MD a t 12/23/2022 1:57 AM CDT Notes Date/Time Note Provider Source 2022-12-25 Formatting of this note might be differe nt from the original. PSYCHOLOGY TEACHER- [facility] - [facility] 11:20:12-00:00 Please be sure to schedule a hospital follow up PROVIDER 2022-12-23 Formatting of this note might be differe nt from the original. Juan Ho RN [facility] 16:52:09-00:00 Problem: Pain Goal: Control of pain at or below patient's docu mented comfort goal Outcome: Resolved Goal: Reduction in pain sensation Outcome: Resolved Problem: Discharge Planning Goal: Adequate for discharge Outcome: Resolved Goal: Effective communication Outcome: Resolved Problem: Infection Risk Goal: Absence of infection Outcome: Resolved Problem: Skin integrity Impaired (Risk or Actual ) Goal: Wound healing Outcome: Resolved Goal: Prevention of new skin breakdown Outcome: Resolved Problem: Venous Thromboembolism, (actual or risk of) Goal: Absence of venous thromboembolism (Risk) Outcome: Resolved Problem: Falls, Risk of Goal: Absence of falls Outcome: Resolved Problem: Fluid Volume - Imbalanced Goal: Absence of imbalanced fluid volume signs a nd symptoms Outcome: Resolved T 2022-12-22 Formatting of this note might be differe nt from the original. Jennifer Holland RN [facility] 23:58:32-00:00 Problem: Pain Goal: Control of pain at or below patient's docu mented comfort goal Outcome: Progressing as expected Goal: Reduction in pain sensation Outcome: Progressing as expected Problem: Discharge Planning Goal: Adequate for discharge Outcome: Progressing as expected Goal: Effective communication Outcome: Progressing as expected Problem: Infection Risk Goal: Absence of infection Outcome: Progressing as expected Problem: Skin integrity Impaired (Risk or Actual ) Goal: Wound healing Outcome: Progressing as expected Goal: Prevention of new skin breakdown Outcome: Progressing as expected Problem: Venous Thromboembolism, (actual or risk of) Goal: Absence of venous thromboembolism (Risk) Outcome: Progressing as expected Problem: Falls, Risk of Goal: Absence of falls Outcome: Progressing as expected Problem: Fluid Volume - Imbalanced Goal: Absence of imbalanced fluid volume signs a nd symptoms Outcome: Progressing as expected 2022-12-22 Formatting of this note might be differe nt from the original. Bird Oakes RN [facility] 21:53:11-00:00 Patient admitted to [facility] ICU for diagnosis of Chest pain and vomiting. Patient agrees to admission, discussed plan of c are with patient and family. Patient is awake, alert, christina ented, resp reg unlabored, color appropriate for race, PIV intact No adverse reaction to medications administered while in ED Belongings with patient to unit Report to Varsha Whittaker 2022-12-22 Formatting of this note might be differe nt from the original. Brooke Salvador [facility] 14:15:38-00:00 Pt had sibling call to gianfranco Sanchez that he is at [facility] ER for vomiting and chest pains he thinks he will be admitted today Electronically signed by Brooke Salvador at 2:17 PM CDT 2022-12-22 [facility] 13:35:52-00:00 Patient does not produce urine. 2022-12-22 Formatting of this note might be differe nt from the original. Carito Souza RN [facility] 13:32:37-00:00 CC: patient presents to the ER with complaints of vomiting that began last night. Denies taking medications or sick contact. Patient's dialysis days are MWF. PMHx: see history Awake, alert, oriented, resp reg unlabored, skin warm and dry, color appropriate for race, moves all ext without difficulty, amb with cane. Appears in no distress. 2022-12-22 Formatting of this note is different from the or iginal. [facility] 13:22:00-00:00 [facility] ED Transfer of Care Note. Off-going Physician:Dr. Howard Time of Transfer of Care: 8:18 PM Summary: Ashia pratt is a 67 year old male presenting with chief complaint of Nausea/Vomiting. Pt also reports at time of d ischarge that he has been having intermittent episodes of chest pain Pending prior to disposition: Labs, Imaging, and Reevaluation Current interventions: Medications ondansetron (ZOFRAN (PF)) in jection 4 mg (4 mg Slow IV Push Given 12/22/22 1356) morpHINE (4 mg/mL) injection 4 mg (4 mg Slow IV Push Given 12/22/22 1446) ondansetron (ZOFRAN (PF)) in jection 4 mg (4 mg Slow IV Push Given 12/22/22 1446) proMETHazine (PHENERGAN) 25 mg in NaCl 0.9% (NS) 50 mL IV piggyback (25 mg IV Piggyback Given 12/22/22 193) Results: Labs Reviewed CBC WITH DIFF - Abnormal; Notable for the follow ing components: Result Value RBC 3.09 (*) HGB 8.8 (*) HCT 28.1 (*) RDW-SD 55.8 (*) RDW-CV 16.9 (*) LYMPH x10^3 0.69 (*) EOS x10^3 0.03 (*) All other components within normal limits COMP. METABOLIC PANEL (64880 ) - Abnormal; Notable for the following components: K 5.1 (*) CL 93 (*) AGAP 17 (*) BUN 75 (*) CREATININE 9.03 (*) All other components within normal limits Narrative: Association of Glomerular F iltration Rate (GFR) and Staging of Kidney Disease* + + +- + | GFR (mL/min/1.73 m2) | With Kidney Damage | Wi thout Kidney Damage + + +- + | >90 | Stage one | Normal + + +- + | 60-89 | Stage two | Decreased GFR + + +- + | 30-59 | Stage three | Stage three + + +- + | 15-29 | Stage four | Stage four + + +- + | <15 (or dialysis) | Stage five | Stage five + + +- + *Each stage assumes the asso ciated GFR level has been in effect for at least three months. Stages 1 to 5, with or without kidney disease, indicate chronic kidney disease. Notes: Determination of stag es one and two (with eGFR >59mL/min/1.73 m2) requires estimation of kidney damage for at least three months as defined by structural or functional abnormalities of the kidney, manifested by either: Pathological abnormalities o r Markers of kidney damage (including abnormalities in the composition of the blood or urine or abnormalities in imaging tests). TROPONIN I - Abnormal; Notable for the following components: TROPONIN I 0.067 (*) All other components within normal limits Narrative: Reference (Normal) Range (defined by the 99th p ercentile reference limit): <= 0.034 ng/mL Note: Cardiac troponin begin s to rise 3-4 hours after the onset of ischemia. Repeat in 4-6 hours if the sample was drawn within 3-4 hours of the onset of the symptom and found normal. Diagnosis of myocardial inju ry is made with acute changes in cTn concentrations with at least one serial sample above the 99th percentile upper reference limit (URL), taken together with the patient's clinical presentation. Biotin has been reported to cause a negative bias, interpret results relative to patient's use of biotin. N-TERMINAL PRO-BNP - Abnormal; Notable for the f ollowing components: NT-proBNP 198,000 (*) All other components within normal limits Narrative: Positive: Heart Failure Likely LIPASE - Normal CT ABDOMEN PELVIS WO CONTRAST Final Result 1. Early cirrhotic morphology with trace perihep atic ascites and portal hypertensive enteropathy, unchanged. Retroperito jeovany and hepatic hilar lymphadenopathy may also be related to early cir rhosis. Small volume ascites. 2. Stable chronic round peripherally calcified 1 .6 cm nodule in the mesentery may represent a peritoneal loose body versus thrombosed aneurysm. This is unchanged from May 2022. 3. Persistent severe thickening of the bladder w ith prostatomegaly are suspicious for chronic bladder outlet obstructio n with or without superimposed cystitis. 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 4. Biventricular dilatation with multiple hayes ry vascular stents. Limited study in the absence of IV contrast. Preliminary Report Dictated by Resident: Irvin Esquivel MD I, Arthur Gilbert MD., have reviewed this holden dy and agree with the above report. Additional Notes: Diagnosis/Impression as of 12/22/222055 Vomiting, unspecified vomiting type, unspecified whether nausea present Abdominal pain, unspecified abdominal location Chest pain, unspecified type Medical Decision Making Ashia Alejandre is a [age] year old male with numerous medical conditions as listed above who presents to the ED with Abdominal Pain, Nausea/Vomiting Problems Addressed: Abdominal pain, unspecified abdominal location: acute illness or injury Details: ED evaluation, lab oratory and imaging study results and ED management as documented in chart. No acute findings Chest pain, unspecified type: acute illness or i njury Details: At time of dischar miriam, pt reports that he has been having intermittent episodes of chest pain Will admit to R/o ACS Vomiting, unspecified vomiting type, unspecified whether nausea present: Details: N/V resolved Amount and/or Complexity of Data Reviewed Independent Historian: EMS External Data Reviewed: labs and notes. Labs: ordered. Decision-making details documente d in ED Course. Radiology: ordered. Decision-making details docu mented in ED Course. ECG/medicine tests: ordered and independent inte rpretation performed. Details: EKG Interpreted by me as: NSR Rate 62 BPM Normal axis No ST Elevation or Depression No Q waves No other acute findings Discussion of management or test interpretation with external provider(s): Discussed presentation with Hopsitalist Dr Cao who has accepted pt for admission for further evaluation Also discussed presentation, with Dr George who recommended admission to R/O ACS Risk Prescription drug management. Parenteral controlled substances. Disposition: Discharged Home Social Determinants of Health: none. Diagnoses that have been ruled out: None Diagnoses that are still under consideration: None Final diagnoses: Vomiting, unspecified vomiting type, unspecified whether nausea present Abdominal pain, unspecified abdominal location Chest pain, unspecified type ED Disposition ED Disposition Admit - Observation Condition Stable Comment -- Beba Thompson MD 12/22/222055 2022-12-13 [facility] 16:34:52-00:00 Please view pervious encount er on 12-10-2022. No needs at this time. Electronically signed by Alondra Quintanilla MA a t 12/13/2022 4:35 PM CDT 2022-12-13 Formatting of this note might be differe nt from the original. Kristine Hemphill RN [facility] 12:44:48-00:00 Spoke with patient, instruct ed patient on current use of cream and reason he received it. Patient stated he needs an antibiotic, informed patient Carlee looked over him and he did not have an indication which required antibiotic treatment. Electronically signed by Kristine Hemphill RN at 0 12/13/2022 12:46 PM CDT 2022-12-13 Formatting of this note might be differe nt from the original. Johnna Perdomo [facility] 10:23:34-00:00 Patient is calling to see if he can get a antibiotic for the stinging sensations he has in his arm from the Rima bites he sustained he said the ointment helped but didn't completely stop it.Please advise [phone] [facility] [id number] - [place] - [address] [place] [address] Electronically signed by Johnna Perdomo at 10:29 AM CDT 2022-12-11 Formatting of this note might be differe nt from the original. Kristi Torres [facility] 17:38:17-00:00 Ashia Alejandre is a 67 year old male Pt is requesting to speak [facility] for medication clarification. He was told he would be prescribed a antibiotic but only had a cream to case picker from pharmacy and is now confused. Also wanting to know if prescriptions can be carlos dany on the $4 to $5 plan. Please call pt back at [phone]. [facility] [address] [place] [address] Electronically signed by Kristi Torres at 09/2022 5:42 PM CDT 2022-12-09 Formatting of this note might be differe nt from the original. Leticia Mederos RN [facility] 14:30:03-00:00 RN called patient to discuss removal from kidney transplant evaluation due to EF of less than 40. Patient's friend answered and will have patient call back. Electronically signed by Leticia Mederos RN a t 12/09/2022 2:32 PM CDT 2022-12-07 Formatting of this note might be differe nt from the original. Quin Pereyra MA [facility] 15:57:41-00:00 Images from the original note were not included. Called patient for results. Patient verbalized understanding with no further questions. Patient already has appointment set with Vascular surgeon. Rosalva Garza MD P Cardiology Nurse US showed R leg venous insufficiency. Plz make a n appt with Vasc surgery Electronically signed by Quin Pereyra MA a t 12/07/2022 4:02 PM CDT 2022-12-06 Formatting of this note is different fro m the original. Leticia Mederos RN [facility] 16:15:33-00:00 Kidney Transplant Committee Discussion Note Organ #: 1 Evaluation Date: 11/30/2022 Committee Discussion Date: 12/06/2022 Organ evaluated for: Kidney Transplant Phase: Evaluation Brake Drum Lathe Operator: Leticia Mederos RN Primary Diagnosis: HTN Secondary Diagnosis: Medication induced nephropa thy Committee Review Discussion Decision: Remove due to EF below 40. RN will refer to heart failure. Selection criteria in place at time of committee : Kidney: Relative Contraindications Absolute Contraindica tions Age >70 years Age >=75 with comorbidities Class II obesity ? defined a s moderate risk obesity with BMI 35-39.9 Class III obesity (or higher) - defined as high-risk obesity with BMI >40.0 BMI <18 Active malignancy Age > 65 with two or more of the following: symptomatic cardiac disease, longstanding diabetes with other uncontrolled complications, class I obesity Severe/untreatable diffuse atherosclerotic or cor onary artery disease, i.e. n ot amenable to surgical repair, bypass grafting or angioplasty. If appropriate, may qualify for simultaneous heart kidney transplant Active smoker with resulting medical complications directly from that (Severe emphysema, vascular disease, coronary artery disease, stroke, etc.) Class 4/untreatable congestive heart failure, i.e. not a menable to medical or surgic al therapy. If appropriate, may qualify for simultaneous heart kidney transplant Chronic obstructive pulmonar y disease Active/uncontrolled sepsis or unresolved infection Chronic active Hepatitis B AIDS Current non adherence with medical regimen or di alysis Active tuberculosis treatments Psychosocial or b ehavioral abnormalities which would interfere with adherence to the strict post transplant management regimen Malignancy in remission less than the time suggested by the standard of care per [place] [employer] guidelines. Severe deconditioned state, not amenable to rehabilitation, i.e. unable to perform activities of daily living (ADL s) Myocardial Infarction within the previous six months Current positive test Active skin/soft tissue ulce r or sores Lack of adequate financial or social support system necessary to support medical regimen compliance in the post- operative period. Current drug or alcohol abus e or any positive toxicity screen(s) over a six month period. This will be reviewed on a case by case basis Pulmonary Hypertension Electronically signed by Leticia Mederos RN a t 12/06/2022 4:16 PM T 2022-12-03 [facility] 13:50:33-00:00 Future lab ordered, to be completed prior to nex t office visit. T 2022-11-30 Formatting of this note is different from the or iginal. [facility] 09:30:00-00:00 Images from the original note were not included. Venipuncture collection perf ormed by clean technique on the left anticubitus. Total of 1 attempts were made. Slight pressure and a bandage/dressing were applied to the site(s). The patient experienced n o complications. The followi ng specimens were processed according to instructions and sent to [facility] laboratories per lab order on 11/30/22: LT BLUE 1 SST 8 RED 2 LAV 2 PPT 1 DK GREEN (LiHep) 1 DK GREEN (SodH) PEGUERO 1 DK BLUE (K2) DK BLUE (S) ACD 4 Blood Culture NIPT/NTD Electronically signed by Dotty Pulido at 11/30 9:31 AM [facility] 2022-11-30 [facility] 09:30:00-00:00 No abos for this pt Pt is not able to urine Electronically signed by Dotty Puildo at 11/30 11:21 AM T 2022-11-18 Addended by: ROSALVA GARZA MD on: 12/05/2022 07: 35 PM [facility] 14:20:00-00:00 Modules accepted: Orders Electronically signed by Rosalva Garza MD at 7:35 PM CDT
[2022-12-26 14:23] LABS: Absolute Lymphocytes (CBC) 0.6 K/uL (0.7-4.9); Hematocrit 23.9 % (39.6-49.0); Lymphocytes % 10.1 % (15.3-44.8); MCV 88.5 fL (80-100); MPV 9.8 fL (7.6-11.3); Platelets 183 thou/uL (152-406)
[2022-12-26 14:29] LABS: Protime INR 1.41
[2022-12-26] MEDS ORDERED: ACETAMINOPHEN 500 MG TAB ONE (14:31)
[2022-12-26] MEDS ORDERED: NA CHLORIDE 0.9% 500 ML ONE (14:31)
[2022-12-26] MEDS ORDERED: CEFEPIME 1 GM/VIAL ONE (14:32)
[2022-12-26 14:41] LABS: Albumin 2.8 g/dL (3.4-5.0); Bilirubin Total 0.5 mg/dL (0.2-1.0); Potassium 4.7 mEq/L (3.5-5.1); Protein, Total 6.7 g/dL (6.4-8.2)
--- NOTE | 2022-12-26 14:50 | RAD REPORT ---
EXAM DESCRIPTION: CT - Head Brain Wo Cont - 12/26/2022 2:43 pm CLINICAL HISTORY: CONFUSED COMPARISON: Facial Bones W/ Mpr dated 04/09/2016 TECHNIQUE: All CT scans are performed using dose optimization technique as appropriate and may inclu de automated exposure control or mA/KV adjustment according to patient size. FINDINGS: No intracranial hemorrhage, hydrocephalus or extra-axial fluid collection.No areas of brai n edema or evidence of midline shift. Mild to moderate chronic small vessel ischemic changes. The paranasal sinuses and mastoids are clear. The calvarium is intact. IMPRESSION: No acute intracranial abnormality.
--- NOTE | 2022-12-26 14:53 | RAD REPORT ---
EXAM DESCRIPTION: RAD - Chest Single View - 12/26/2022 2:43 pm CLINICAL HISTORY: FEVER COMPARISON: Chest Single View dated 05/15/2022; Chest Single View dated 03/13/2022; Chest Single View d ated 09/10/2021; Chest Pa And Lat (2 Views) dated 08/20/2020 FINDINGS: Lines: None. Lungs: Hazy opacities are present bilaterally. Pleural: No significant pleural effusions or pneumothorax. Cardiac: Mild cardiomegaly. Mediastinum: Within normal limits. Bones: No acute fractures. Other: None IMPRESSION: Mild hazy bilateral opacities which have been present on multiple prior chest radiograph s and may be chronic. Alternately, it could represent an atypical infectious process or edema. No con solidative pneumonia.
--- NOTE | 2022-12-26 15:43 | EDPHYS ---
Physician Documentation [facility] Name: Naldo Alejandre Age: 67 yrs Sex: Male : 1955 Arrival Date: 12/26/2022 Time: 13:35 Bed 7 Private MD: Mendez Montez ED Physician Ana Luisa Underwood HPI: 12/26 14:01 This 67 yrs old Black Male presents to ER via Wheelchair with complaints of Heat sp3 Exposure, Confusion. 14:03 67-year-old male history of hypertension, end-stage renal disease, hyperlipidemia on sp3 Tuesday dialysis now presents to the ED with chief complaint confusion and generalized weakness after being outside since approximately 8 AM today. Patient also has a temperature of 100.7 at triage. He endorses generalized weakness and fatigue but does not have any specific or focal complaints including headache, URI symptoms, cough, shortness of breath, chest pain, abdominal pain, nausea, vomiting, diarrhea, syncope, numbness or tingling, known sick contacts, travel history, trauma, or any other signs or symptoms on ROS at this time.. Historical: - Allergies: 13:50 No Known Allergies; ko1 - PMHx: 13:50 Dialysis; M,W,F; ESRD; Hyperlipidemia; Hypertension; kidney disease; LYMPHOMA; ko1 - Immunization history:: Adult Immunizations unknown. - Social history:: Smoking status: Patient denies any tobacco usage or history of. ROS: 14:03 Constitutional: Negative for fever, chills, and weight loss, Eyes: Negative for injury, sp3 pain, redness, and discharge, ENT: Negative for injury, pain, and discharge, Neck: Negative for injury, pain, and swelling, Cardiovascular: Negative for chest pain, palpitations, and edema, Respiratory: Negative for shortness of breath, cough, wheezing, and pleuritic chest pain, Abdomen/GI: Negative for abdominal pain, nausea, vomiting, diarrhea, and constipation, Back: Negative for injury and pain, MS/Extremity: Negative for injury and deformity, Skin: Negative for injury, rash, and discoloration, Allergy/Immunology: Negative for hives, rash, and allergies, Endocrine: Negative for neck swelling, polydipsia, polyuria, polyphagia, and marked weight changes, Hematologic/Lymphatic: Negative for swollen nodes, abnormal bleeding, and unusual bruising. 14:03 All other systems are negative. Exam: 14:04 Head/Face: Normocephalic, atraumatic. Eyes: Pupils equal round and reactive to light, sp3 extra-ocular motions intact. Lids and lashes normal. Conjunctiva and sclera are non-icteric and not injected. Cornea within normal limits. Periorbital areas with no swelling, redness, or edema. Neck: Trachea midline, no thyromegaly or masses palpated, and no cervical lymphadenopathy. Supple, full range of motion without nuchal rigidity, or vertebral point tenderness. No Meningismus. Chest/axilla: Normal chest wall appearance and motion. Nontender with no deformity. No lesions are appreciated. Cardiovascular: Regular rate and rhythm with a normal S1 and S2. No gallops, murmurs, or rubs. Normal PMI, no JVD. No pulse deficits. Respiratory: Lungs have equal breath sounds bilaterally, clear to auscultation and percussion. No rales, rhonchi or wheezes noted. No increased work of breathing, no retractions or nasal flaring. Abdomen/GI: Soft, non-tender, with normal bowel sounds. No distension or tympany. No guarding or rebound. No evidence of tenderness throughout. Skin: Warm, dry with normal turgor. Normal color with no rashes, no lesions, and no evidence of cellulitis. MS/ Extremity: Pulses equal, no cyanosis. Neurovascular intact. Full, normal range of motion. Psych: Awake, alert, with orientation to person, place and time. Behavior, mood, and affect are within normal limits. 14:04 Neuro: Patient is slow to respond and does not have any focal deficits at this time. He is alert and oriented x4 and denies any pain.. 14:44 ECG was reviewed by the Attending Physician. EKG demonstrates normal sinus rhythm at 95 sp3 bpm with a first-degree AV block with a FL interval of 214, and a QTc of 505 and left axis deviation with poor R wave progression and diffuse nonspecific ST/T changes without evidence of acute ischemia. Vital Signs: 13:45 BP 105 / 75; Pulse 99; Resp 22; Temp 100.7; Pulse Ox 90% ; ko1 13:45 BP 116 / 86; Pulse 108; Resp 28; Pulse Ox 97% ; ko1 14:15 BP 117 / 79; Pulse 97; Resp 18; Pulse Ox 100% on 2 lpm NC; ko1 15:34 BP 102 / 75; Pulse 84; Resp 16; Temp 97.8(O); Pulse Ox 98% ; ko1 16:10 BP 108 / 77; Pulse 82; Resp 16; Pulse Ox 99% ; ko1 [place] Coma Score: 13:15 Eye Response: spontaneous(4). Motor Response: localizes pain(5). Verbal Response: ko1 confused(4). Total: 13. 16:25 Eye Response: spontaneous(4). Motor Response: obeys commands(6). Verbal Response: ko1 oriented(5). Total: 15. Trauma Score (Adult): 13:15 Eye Response: spontaneous(1); Verbal Response: confused(1); Motor Response: localizes ko1 pain(1); Systolic BP: > 89 mm Hg(4); Respiratory Rate: 10 to 29 per min(4); [place] Score: 13; Trauma Score: 11 16:25 Eye Response: spontaneous(1); Verbal Response: oriented(1); Motor Response: obeys ko1 commands(2); Systolic BP: > 89 mm Hg(4); Respiratory Rate: 10 to 29 per min(4); [place] Score: 15; Trauma Score: 12 MDM: 13:53 Patient medically screened. sp3 14:04 Data reviewed: vital signs, nurses notes. ED course: 67-year-old male with end-stage sp3 renal disease with likely heat exhaustion. Differential diagnosis includes heat exhaustion, infection related to possible viral syndrome, COVID-19, influenza, pneumonia, among others, as well as neurological insult including TIA/CVA spectrum. Patient has no focal deficits so this is most lower in likelihood. Work-up will include CT scan of the head, laboratory values, gentle IV hydration as indicated, viral swabs, chest x-ray and general support. Disposition pending work-up and patient course.. 15:41 ED course: Infectious work-up is negative. Patient feels a lot better after correction sp3 of his temperature and hydration. At this point I believe the temperature was likely due to him being overheated as a true increased core temperature as opposed to change in set point. Patient has received 1 g of cefepime due to his dialysis will be in his system. I have coached patient extensively on things to return for in case he has an ongoing infection though at this point the likely etiology is heat exhaustion with increasing core temperature due to extraneous heat. Vital signs are now normal and patient feels dramatically better and we will safely discharge him home at this time.. 12/26 13:55 Order name: Blood Culture Adult (2) 3 12/26 13:55 Order name: CBC with Diff; Complete Time: 14:38 12/26 13:55 Order name: CMP; Complete Time: 15:29 12/26 13:55 Order name: Lactate w/ 2H reflex if indic.; Complete Time: 15:29 12/26 13:55 Order name: Protime (+inr); Complete Time: 14:38 12/26 13:55 Order name: Ptt, Activated; Complete Time: 14:38 12/26 13:55 Order name: SARS-COV-2 RT PCR; Complete Time: 15:29 12/26 13:55 Order name: Flu; Complete Time: 15:29 12/26 13:55 Order name: CK; Complete Time: 15:29 12/26 13:55 Order name: Chest Single View XRAY; Complete Time: 15:29 12/26 14:02 Order name: CT Head Brain wo Cont; Complete Time: 15:29 12/26 13:55 Order name: EKG; Complete Time: 13:56 12/26 13:55 Order name: Cardiac monitoring; Complete Time: 14:17 12/26 13:55 Order name: EKG - Nurse/Tech; Complete Time: 14:31 12/26 13:55 Order name: IV Saline Lock - Large Bore; Complete Time: 14:17 12/26 13:55 Order name: Labs collected and sent; Complete Time: 14:17 12/26 13:55 Order name: O2 Per Protocol; Complete Time: 14:17 12/26 13:55 Order name: O2 Sat Monitoring; Complete Time: 14:17 12/26 13:55 Order name: Vital Signs; Complete Time: 14:17 sp Administered Medications: 14:31 Drug: Acetaminophen PO 1000 mg Route: PO; ko1 14:31 Drug: Cefepime IVPB 1 grams Route: IVPB; Rate: 200 ml/hr; Infused Over: 30 mins; Site: ko1 left forearm; 14:31 Drug: NS 0.9% IV 500 ml Route: IV; Rate: bolus; Site: left forearm; ko1 Disposition Summary: 12/26/22 15:42 Discharge Ordered Location: Home sp3 Condition: Stable sp3 Diagnosis - Heat exhaustion, unspecified sp3 Followup: sp3 - With: Private Physician - When: Upon discharge from the Emergency Department - Reason: Continuance of care Discharge Instructions: - Discharge Summary Sheet sp3 - Preventing Heat Exhaustion, Adult sp3 Forms: - Medication Reconciliation Form sp3 - Thank You Letter sp3 - Antibiotic Education sp3 - Prescription Opioid Use sp3 - Patient Portal Instructions sp3 - Leadership Thank You Letter sp3 Signatures: Dispatcher [employer] Ana Luisa Giraldo MD MD sp3 Charlene Kennedy RN RN ko1
--- NOTE | 2022-12-26 15:43 | ER ---
Nurse's Notes [facility] Name: Naldo Alejandre Age: 67 yrs Sex: Male : 1955 Arrival Date: 12/26/2022 Time: 13:35 Bed 7 Private MD: Mendez Montez Diagnosis: Heat exhaustion, unspecified Presentation: 12/26 13:45 Chief complaint: Patient states: Xiomara been outside since 8am, I got too hot. Coronavirus ko1 screen: At this time, the client does not indicate any symptoms associated with coronavirus-19. Ebola Screen: No symptoms or risks identified at this time. Initial Sepsis Screen: Does the patient meet any 2 criteria? Does the patient have a suspected source of infection? No. Patient's initial sepsis screen is negative. Risk Assessment: Do you want to hurt yourself or someone else? Patient reports no desire to harm self or others. Onset of symptoms was December 26, 2022. 13:45 Method Of Arrival: Wheelchair ko1 13:45 Acuity: TERRI 2 ko1 Triage Assessment: 13:50 General: Appears distressed, uncomfortable, ill, Behavior is cooperative, drowsy, ko1 restless. Pain: Denies pain. Derm: Skin is clammy, Skin is pink, warm \T\ dry. Skin temperature is warm. Historical: - Allergies: 13:50 No Known Allergies; ko1 - PMHx: 13:50 Dialysis; M,W,F; ESRD; Hyperlipidemia; Hypertension; kidney disease; LYMPHOMA; ko1 - Immunization history:: Adult Immunizations unknown. - Social history:: Smoking status: Patient denies any tobacco usage or history of. Screenin:15 [facility] ED Fall Risk Assessment (Adult) History of falling in the last 3 months, ko1 including since admission No falls in past 3 months (0 pts) Confusion or Disorientation No (0 pts) Intoxicated or Sedated No (0 pts) Impaired Gait No (0 pts) Mobility Assist Device Used No (0 pt) Altered Elimination No (0 pt) Score/Fall Risk Level 0 - 2 = Low Risk. Abuse screen: Denies threats or abuse. Denies injuries from another. Nutritional screening: No deficits noted. Tuberculosis screening: No symptoms or risk factors identified. Assessment: 13:15 Neuro: Level of Consciousness is lethargic. Cardiovascular: Rhythm is sinus tachycardia ko1 Dialysis shunt: in the right bicep, with palpable thrill, with auscultated bruit. Respiratory: Respiratory pattern is regular, tachypnea. GI: No deficits noted. : No deficits noted. EENT: No deficits noted. Derm: Skin is clammy, Skin temperature is warm. Musculoskeletal: No deficits noted. 16:14 Reassessment: Patient appears in no apparent distress at this time. Patient and/or ko1 family updated on plan of care and expected duration. Pain level reassessed. Patient is alert, oriented x 3, equal unlabored respirations, skin warm/dry/pink. Patient denies pain at this time. Patient states feeling better. Patient states symptoms have improved. Patient is ambulating in room and talking on the phone. He appears back to baseline.. Vital Signs: 13:45 BP 105 / 75; Pulse 99; Resp 22; Temp 100.7; Pulse Ox 90% ; ko1 13:45 BP 116 / 86; Pulse 108; Resp 28; Pulse Ox 97% ; ko1 14:15 BP 117 / 79; Pulse 97; Resp 18; Pulse Ox 100% on 2 lpm NC; ko1 15:34 BP 102 / 75; Pulse 84; Resp 16; Temp 97.8(O); Pulse Ox 98% ; ko1 16:10 BP 108 / 77; Pulse 82; Resp 16; Pulse Ox 99% ; ko1 [place] Coma Score: 13:15 Eye Response: spontaneous(4). Motor Response: localizes pain(5). Verbal Response: ko1 confused(4). Total: 13. 16:25 Eye Response: spontaneous(4). Motor Response: obeys commands(6). Verbal Response: ko1 oriented(5). Total: 15. Trauma Score (Adult): 13:15 Eye Response: spontaneous(1); Verbal Response: confused(1); Motor Response: localizes ko1 pain(1); Systolic BP: > 89 mm Hg(4); Respiratory Rate: 10 to 29 per min(4); [place] Score: 13; Trauma Score: 11 16:25 Eye Response: spontaneous(1); Verbal Response: oriented(1); Motor Response: obeys ko1 commands(2); Systolic BP: > 89 mm Hg(4); Respiratory Rate: 10 to 29 per min(4); [place] Score: 15; Trauma Score: 12 ED Course: 13:36 Patient arrived in ED. mr 13:36 Mendez Montez MD is Private Physician. mr 13:38 Charlene Kennedy, ELEONORA is Primary Nurse. ko1 13:39 Ana Luisa Underwood MD is Attending Physician. sp3 13:50 Triage completed. ko1 13:50 Arm band placed on right wrist. Patient placed in an exam room, on a stretcher, on ko1 site monitor, on pulse oximetry, Patient notified of wait time. 14:15 Patient has correct armband on for positive identification. Bed in low position. Call ko1 light in reach. Side rails up X2. Provided Education on: NA. Client placed on continuous cardiac and pulse oximetry monitoring. NIBP monitoring applied. site monitor on. Door closed. Noise minimized. PO fluids given. Cool cloth applied. 14:15 Inserted saline lock: 20 gauge in left forearm, using aseptic technique. Blood ko1 collected. 14:17 Blood Culture Adult (2) Sent. ko1 14:17 CBC with Diff Sent. ko1 14:18 CMP Sent. ko1 14:18 Lactate w/ 2H reflex if indic. Sent. ko1 14:18 Protime (+inr) Sent. ko1 14:18 Ptt, Activated Sent. ko1 14:31 Flu Sent. ko1 14:31 SARS-COV-2 RT PCR Sent. ko1 14:45 Chest Single View XRAY In Process Unspecified. EDMS 14:45 CT Head Brain wo Cont In Process Unspecified. EDMS 16:10 No provider procedures requiring assistance completed. IV discontinued, intact, ko1 bleeding controlled, No redness/swelling at site. Pressure dressing applied. Administered Medications: 14:31 Drug: Acetaminophen PO 1000 mg Route: PO; ko1 14:31 Drug: Cefepime IVPB 1 grams Route: IVPB; Rate: 200 ml/hr; Infused Over: 30 mins; Site: ko1 left forearm; 14:31 Drug: NS 0.9% IV 500 ml Route: IV; Rate: bolus; Site: left forearm; ko1 Medication: 16:10 VIS not applicable for this client. ko1 Outcome: 15:42 Discharge ordered by . sp3 16:25 Discharged to home ambulatory, with family. ko1 16:25 Condition: improved 16:26 Discharge instructions given to patient, family, Instructed on discharge instructions, ko1 follow up and referral plans. Demonstrated understanding of instructions, follow-up care. 16:27 Patient left the ED. ko1 Signatures: Dispatcher [employer] DAVEEvita Chen UnderwoodAna Luisa MD MD sp3 Charlene Kennedy RN RN ko1 Corrections: (The following items were deleted from the chart) 16: 16:10 Discharged to home ambulatory, with family, ko1 ko1 16 16:10 Condition: improved ko1 ko1 16: 16:10 Discharge instructions given to patient, family, Instructed on discharge ko1 instructions, follow up and referral plans. Demonstrated understanding of instructions, follow-up care, ko1
[2022-12-26 16:39] VITALS: TEMP 97.8
[2022-12-26 16:40] VITALS: BP 108/77; O2SAT 99
--- NOTE | 2022-12-27 17:58 | EKG ---
Test Date: 2022-12-26 Test Time: 14:29:39 Podiatrist Orthopedic: BP MEASUREMENT RESULTS: Intervals: Rate: 95 NC: 214 QRSD: 112 QT: 402 QTc: 505 [place]: P: 49 NC: 214 QRS: -59 T: 101 INTERPRETIVE STATEMENTS: Sinus rhythm with 1st degree AV block Left axis deviation Inferior infarct, age undetermined Possible Anterolateral infarct, age undetermined Prolonged QT Abnormal ECG Compared to ECG 05/15/2022 20:43:32 First degree AV block now present Left-axis deviation now present Prolonged QT interval now present Left anterior fascicular block no longer present Myocardial infarct finding still present Electronically Signed On 12-27-22 17:56:39 CDT by Lukas Perez
== END 2022-12-26 16:27 | disposition home or self-care (01) ==
LOC: ER 13:35
DX: T67.5XXA Heat exhaustion, unspecified, initial encounter (principal); I12.0 Hypertensive chronic kidney disease with stage 5 chronic kidney disease or end stage renal disease; N18.6 End stage renal disease; E78.5 Hyperlipidemia, unspecified; Z99.2 Dependence on renal dialysis; Z20.822 Contact with and (suspected) exposure to COVID-19
CPT/HCPCS: 93005; 87040 ×2; 85025; 36415; 82550; 85610; 83605; 85730; 80053; 87635; 87804 ×2; 70450; 71045; 96374; 99285; J7040; J0692